=== PATIENT | female | born 1930 | race Caucasian/White ===

== ENCOUNTER 2017-08-07 16:37 | Inpatient (IN) | payer OTHER, MEDICARE ==
--- NOTE | 2017-08-07 17:25 | PDOC ---
History of Present Illness - General History Source: Patient, Old Records Exam Limitations: No Limitations - History of Present Illness Initial Comments: 08/07/17 17:44 The patient is an 87 year old female, accompanied by family, with a past medical history hypertension, high cholesterol, diabetes, hypothyroid, and recent UTI who presents to the ED today with lethargy. The patient states that her symptoms feel similar to her recent admissions for UTI despite not currently having any urinary complains. On Friday the patient discussed her symptoms (at that time) with Dr. Salinas who prescribed Doxycycline. She reports associated shortness of breath and lightheadedness. She denies chest pain, dysuria, frequency, fever, and chills. <Paul Murphy - Last Filed: 08/07/17 17:43> - History of Present Illness Initial Comments: 08/13/17 07:04 Physical exam: Alert oriented well-developed well-nourished no acute distress cooperative Afebrile, vital signs normal Head atraumatic. PERRLA, fundi benign, ENT clear Neck supple without bruit mass or nodes Lungs clear with full breath sounds throughout bilaterally. No wheezes rales or rhonchi CV S1 and S2 distant without murmur rub or gallop pulses full and symmetric no JVD or edema no bruits regular Abdomen soft nontender without mass or organomegaly. Bowel sounds normal. Nondistended. No CVAT Extremities no CCE Skin clear, no rash, adequate turgor and wet mucous membranes Neurological C2 to 12 intact. Strength full and symmetric. No focal sensory or motor deficits. The patient claims she is "too weak to walk". Impression: Possible recurrent UTI, although the patient's symptoms have completely subsided and there is no fever or back pain. Generalized weakness and fatigue, which appears to be out of proportion to the patient's generalized appearance. There appears to be considerable secondary gain and the relationship with her daughter Plan: Urinalysis and urine culture, CBC, chemistries, EKG and cardiac enzymes, chest x-ray, and further medical evaluation and treatment depending on results. 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) COPD: No CHF: No Dementia: No Diabetes: Yes (DX 1962) GI Disorders: Yes (ACID REFLUX) Disorders: Yes (FREQUENT UTI'S-LAST 2012-HOSPITALIZED) HTN: Yes (HX OF 40 YRS) Hypercholesterolemia: No Liver Disease: No Seizures: No Thyroid Disease: Yes (HYPOTHYROIDISM-DX 1949') Other medical history: GUILLAME BARRE, LYME DISEASE, POLIO - Surgical History Abdominal Surgery: Yes (UNBILICAL HERNIA REPAIR-2008) Appendectomy: No Cardiac Surgery: No Cholecystectomy: No Lung Surgery: No Neurologic Surgery: No Orthopedic Surgery: No - Suicide/Smoking/Psychosocial Hx Smoking Status: No Smoking History: Never smoked Have you smoked in the past 12 months: No Number of Cigarettes Smoked Daily: 0 Hx Alcohol Use: No Drug/Substance Use Hx: No Substance Use Type: None Hx Substance Use Treatment: No <Martinez Mcclellan - Last Filed: 08/13/17 07:10> - Past Medical History Allergies/Adverse Reactions: Allergies Allergy/AdvReac Type Severity Reaction Status Date / Time NSAIDS (Non-Steroidal Allergy Severe Difficulty Verified 08/07/17 16:42 Anti-Inflamma Breathing ibuprofen Allergy Intermediate Rash Verified 08/07/17 16:42 meloxicam [From Mobic] Allergy Intermediate Rash Verified 08/07/17 16:42 rosiglitazone maleate Allergy Verified 08/07/17 16:42 [From Avandia] albuterol AdvReac Intermediate Elevated Verified 08/07/17 16:42 Blood Pressure epinephrine AdvReac Intermediate Elevated Verified 08/07/17 16:42 Blood Pressure oxycodone HCl [From Percodan] AdvReac Intermediate Elevated Verified 08/07/17 16 :42 Blood Pressure oxycodone terephthalate AdvReac Intermediate Elevated Verified 08/07/17 16:42 [From Percodan] Blood Pressure flu shot AdvReac Severe [place] Uncoded 07/27/14 19:22 BARRE SY[employer]OME Home Medications: Ambulatory Orders Ascorbic Acid [Vitamin C] 1,000 mg PO BID tablet 07/08/13 Cholecalciferol (Vitamin D3) [Vitamin D3] 1,000 unit PO DAILY tablet 07/08/13 Cranberry 1 tab PO BID 06/08/14 Multivitamins [Multivit ([facility] Formulary)] 1 tab PO DAILY 06/10/14 Aspirin [ASA -] 81 mg PO DAILY #0 06/14/14 Famotidine [Pepcid] 20 mg PO DAILY 08/07/17 Cephalexin [Keflex] 500 mg PO BID #14 capsule 08/12/17 Lactobacillus Acidophilus [Bacid -] 1 tab PO DAILY tab 08/12/17 Review of Systems - Review of Systems Able to Perform ROS?: Yes Comments:: 08/07/17 17:44 CONSTITUTIONAL: (+) Generalized weakness, lightheadedness Absent: fever, no chills EYES: Absent: visual changes ENT: Absent: ear pain, no sore throat CARDIOVASCULAR: Absent: chest pain, no palpitations RESPIRATORY: (+) SOB Absent: cough GI: Absent: abdominal pain, no nausea, no vomiting, no constipation, no diarrhea GENITOURINARY: Absent: dysuria, no frequency, no hematuria MUSCULOSKELETAL: Absent: back pain, no arthralgia, no myalgia SKIN: Absent: rash <Paul Murphy - Last Filed: 08/07/17 17:43> *Physical Exam - Vital Signs Last Vital Signs Temp Pulse Resp BP Pulse Ox 98.5 F 77 18 167/63 96 08/07/17 16:38 08/07/17 16:38 08/07/17 16:38 08/07/17 16:38 08/07/17 16:38 - Physical Exam Comments: 08/07/17 17:44 GENERAL: Well-appearing, well-nourished. No apparent distress. HEENT: Normocephalic, atraumatic. PERRL, EOM intact. CARDIOVASCULAR: Normal S1, S2. Regular rate and rhythm. PULMONARY: Clear to auscultation bilaterally. ABDOMEN: Soft, non-distended, non-tender. EXTREMITIES: Normal ROM in all four extremities. No gross deformities. SKIN: Warm, dry. No rash NEUROLOGICAL: No focal neurological deficits. <Paul Murphy - Last Filed: 08/07/17 17:43> - Vital Signs Last Vital Signs Temp Pulse Resp BP Pulse Ox 98.5 F 77 18 167/63 96 08/07/17 16:38 08/07/17 16:38 08/07/17 16:38 08/07/17 16:38 08/07/17 16:38 <Martinez Mcclellan - Last Filed: 08/13/17 07:10> ED Treatment Course - LABORATORY CBC & Chemistry Diagram: 08/07/17 17:20 08/07/17 17:20 <Paul Murphy - Last Filed: 08/07/17 17:43> - LABORATORY CBC & Chemistry Diagram: 08/11/17 07:05 08/11/17 07:05 <Martinez Mcclellan - Last Filed: 08/13/17 07:10> Medical Decision Making - Medical Decision Making 08/07/17 18:13 EKG: Sinus with mild sinus arrhythmia 74/m. Left axis deviation, minimal. Incomplete right bundle-branch block. Old anteroseptal SC, with Q waves in V1 and V2. No acute ST-T wave changes. No change from prior EKG dated 09/03/2012 in our records. 08/13/17 07:07 Chest x-ray is clear Urinalysis is clear. CBC and chemistries show no significant abnormalities. The patient still feels "weak". Small bolus of intravenous fluids begun. Signed out to Dr. Sargent at 7 PM pending completion of fluids and further medical evaluation. <Martinez Mcclellan - Last Filed: 08/13/17 07:10> *DC/Admit/Observation/Transfer - Attestations Scribe Attestion: 08/07/17 17:44 Documentation prepared by Paul Murphy, acting as medical receptionist biller for Martinez Mcclellan MD. <Paul Murphy - Last Filed: 08/07/17 17:43> <Martinez Mcclellan - Last Filed: 08/13/17 07:10> Diagnosis at time of Disposition: Lethargy, Hyponatremia - Discharge Dispostion Disposition: HALF-WAY FACILITY Condition at time of disposition: Improved
[2017-08-07 17:38] LABS: HEMATOCRIT 30.2 % (32.4-45.2); MCH 34.2 pg (25.7-33.7); MCHC 33.2 g/dl (32.0-36.0); MEAN PLT VOLUME 6.3 fl (7.5-11.1); PLATELET COUNT 293 K/MM3 (134-434); RBC 2.94 M/mm3 (3.60-5.2); RDW 15.3 % (11.6-15.6); WHITE BLOOD COUNT 18.9 K/mm3 (4.0-10.8)
[2017-08-07 17:52] LABS: INR 1.07 (0.82-1.09)
[2017-08-07 18:05] LABS: ALBUMIN 3.5 g/dl (3.5-5.0); ALK PHOS 74 U/L (32-92); ANION GAP 7 (8-16); BILIRUBIN,TOTAL 0.7 mg/dl (0.2-1.0); BLOOD UREA NITROGEN 31 mg/dl (7-18); CALCIUM 8.8 mg/dl (8.4-10.2); CHLORIDE 98 mmol/L (98-107); CO2 23 mmol/L (22-28); CREATININE 1.2 mg/dl (0.6-1.3); GLUCOSE,RANDOM 146 mg/dl (74-106); POTASSIUM 4.2 mmol/L (3.5-5.1); SGOT/AST 18 U/L (10-42); SGPT/ALT 13 U/L (10-40); SODIUM 128 mmol/L (136-145); TOT PROT 6.7 g/dl (6.4-8.3)
[2017-08-07 18:27] LABS: PLATELET ESTIMATE ADEQUATE
[2017-08-07] MEDS ORDERED: SODIUM CHLORIDE 500 ML IV STA (18:34)
[2017-08-07 18:42] LABS: URINE APPEARANCE Clear; URINE BILIRUBIN Negative (NEGATIVE); URINE COLOR YELLOW; URINE GLUCOSE (UA) Negative (NEGATIVE); URINE KETONE Negative (NEGATIVE); URINE LEUK ESTERASE Negative (NEGATIVE); URINE NITRITE Negative (NEGATIVE); URINE PROTEIN 3+ (NEGATIVE); URINE UROBILINOGEN 0.2 (0.2-1.0)
[2017-08-07 18:57] LABS: EPI CELLS FEW /HPF; URINE BACTERIA FEW /hpf (NEGATIVE); URINE RBC 0-2 /hpf (0-3)
--- NOTE | 2017-08-07 19:25 | PDOC ---
*Physical Exam - Vital Signs Last Vital Signs Temp Pulse Resp BP Pulse Ox 98.5 F 77 18 167/63 96 08/07/17 16:38 08/07/17 16:38 08/07/17 16:38 08/07/17 16:38 08/07/17 16:38 ED Treatment Course - LABORATORY CBC & Chemistry Diagram: 08/07/17 17:20 08/07/17 17:20 - ADDITIONAL ORDERS Additional order review: Laboratory Results 08/07/17 08/07/17 08/07/17 18:30 17:20 17:20 PT with INR INR Sodium 128 L Potassium 4.2 Chloride 98 Carbon Dioxide 23 Anion Gap 7 L BUN 31 H D Creatinine 1.2 Creat Clearance w eGFR 42.50 Random Glucose 146 H D Calcium 8.8 Total Bilirubin 0.7 AST 18 ALT 13 Alkaline Phosphatase 74 Creatine Kinase 42 Troponin I < 0.03 Total Protein 6.7 Albumin 3.5 Urine Color Yellow Urine Appearance Clear Urine pH 7.0 Ur Specific [place] 1.020 Urine Protein 3+ H Urine Glucose (UA) Negative Urine Ketones Negative Urine Blood Negative Urine Nitrite Negative Urine Bilirubin Negative Urine Urobilinogen 0.2 Ur Leukocyte Esterase Negative Urine RBC 0-2 Urine WBC 2-4 Ur Epithelial Cells Few Urine Bacteria Few 08/07/17 17:20 PT with INR 12.0 INR 1.07 Sodium Potassium Chloride Carbon Dioxide Anion Gap BUN Creatinine Creat Clearance w eGFR Random Glucose Calcium Total Bilirubin AST ALT Alkaline Phosphatase Creatine Kinase Troponin I Total Protein Albumin Urine Color Urine Appearance Urine pH Ur Specific [place] Urine Protein Urine Glucose (UA) Urine Ketones Urine Blood Urine Nitrite Urine Bilirubin Urine Urobilinogen Ur Leukocyte Esterase Urine RBC Urine WBC Ur Epithelial Cells Urine Bacteria 08/07/17 17:20 RBC 2.94 L MCV 103.0 H MCHC 33.2 RDW 15.3 MPV 6.3 L Neutrophils % No Result Required. Lymphocytes % No Result Required. Progress Note - Progress Note Progress Note: Care of this patient was transferred to tn from Dr. Corey at 1900 hrs. This is an 87-year-old female who was brought in by her family for lethargy. Patient said she's had difficulty getting up and getting around today. Patient said she's felt very weak. Patient denies any chest pain or dizziness. On evaluation of patient's workup thus far patient does have an elevated white count of 18.9. Her white count does tend to run high secondary to a mild myeloproliferative disease. White count is generally less than 16,000, there is also a left shift with 9% bands and 72% segs. Patient also was noted to be hyponatremia with a sodium of 128. Patient has chronic anemia her hemoglobin is 10 this does appear to be close to her baseline. Patient's chest x-ray shows no acute pathology her EKG is unchanged from prior. Patient is receiving some IV fluid. Patient was recently diagnosed with a urinary tract infection and is on antibiotics her urine shows no evidence of an infection at this time. It is uncertain as to the etiology of patient's feeling poorly however given her elevated white count with left shift concern is for an underlying Occult infectious process. Also patient's hyponatremia most likely is contributing to her lethargy. Patient will be admitted to an observation bed for IV hydration and monitoring.. . Signout given to the admitting hospitalist, who accepts the patient. Discussed plan with the patient family at bedside, Patient and family aware of the plan and agree. Patient is clinically unchanged and stable. *DC/Admit/Observation/Transfer Diagnosis at time of Disposition: Lethargy, Hyponatremia - Discharge Dispostion Condition at time of disposition: Fair Admit: Yes - Referrals - Patient Instructions - Post Discharge Activity
--- NOTE | 2017-08-07 22:22 | HP ---
CHIEF COMPLAINT: Lethargy, Generalized Weakness, Dysuria, Frequency PCP: Dr. Salinas HISTORY OF PRESENT ILLNESS: This is a 87 y/o woman PMH; Hypothyroid, DM, Anemia, Asthma(no meds), CVA/TIAs x4 (L-residual), L-Breast Ca (s/p Lumpectomy, RT, remission). Who presents to the ED with lethargy, generalized weakness, malaise and dysuria. Patient reports being treated for a UTI on Doxycycline Day #3. She reports drinking large amounts of water, taking cranberry supplements and Vit C for her UTI and to stay hydrated. She states" I have been feeling so weak, I feel like a rag doll". Patient endorses chills, bladder spams, abdominal cramping and a decreased appetite. Patient denies fever, CABRALES, SOB, CP, palpitations, constipation. ER course was notable for: (1) Na 128 (2) WBC 18.9 (3) BUN 31, Cr 1.2 Recent Travel: None PAST MEDICAL HISTORY: See HPI PAST SURGICAL HISTORY: Umbilical Hernia Repair L- Lumpectomy Social History: Smoking: Never Alcohol: None Drugs: None Lives alone, ambulates with a walker Family History: Non-contributory Allergies NSAIDS (Non-Steroidal Anti-Inflamma Allergy (Severe, Verified 08/07/17 16:42) Difficulty Breathing ibuprofen Allergy (Intermediate, Verified 08/07/17 16:42) Rash meloxicam [From Mobic] Allergy (Intermediate, Verified 08/07/17 16:42) Rash all to all n-saids ? except Asprin rosiglitazone maleate [From Avandia] Allergy (Verified 08/07/17 16:42) albuterol Adverse Reaction (Intermediate, Verified 08/07/17 16:42) Elevated Blood Pressure ELEVATED SUGAR/ELEVATED TEMP epinephrine Adverse Reaction (Intermediate, Verified 08/07/17 16:42) Elevated Blood Pressure ELEVATED SUGAR/TEMP oxycodone HCl [From Percodan] Adverse Reaction (Intermediate, Verified 08/07/17 16:42) Elevated Blood Pressure ELEVATED SUGAR/ELEVATED TEMP oxycodone terephthalate [From Percodan] Adverse Reaction (Intermediate, Verified 08/07/17 16:42) Elevated Blood Pressure ELEVATED TEMP/SUGAR flu shot Adverse Reaction (Severe, Uncoded 07/27/14 19:22) GILLAIN BARRE [employer]NDROME HOME MEDICATIONS: Home Medications Medication Instructions Recorded Ascorbic Acid [Vitamin C] 500 mg PO 2 Daily tablet 07/08/13 Cholecalciferol (Vitamin D3) 1,000 unit PO DAILY tablet 07/08/13 [Vitamin D3] Cranberry 1 tab PO BID 06/08/14 Multivitamins [Multivit ([facility] 1 tab PO DAILY 06/10/14 Formulary)] Aspirin [ASA -] 81 mg PO DAILY #0 06/14/14 Letrozole 2.5 mg PO DAILY 30 Days tablet 11/11/14 Doxycycline Hyclate 100 mg PO BID 08/07/17 Famotidine [Pepcid] 20 mg PO DAILY 08/07/17 REVIEW OF SYSTEMS CONSTITUTIONAL: chills, generalized weakness, malaise, loss of appetite Absent: fever, diaphoresis, weight change HEENT: Absent: rhinorrhea, nasal congestion, throat pain, throat swelling, difficulty swallowing, mouth swelling, ear pain, eye pain, visual changes CARDIOVASCULAR: Absent: chest pain, syncope, palpitations, irregular heart rate, lightheadedness , peripheral edema RESPIRATORY: Absent: cough, shortness of breath, dyspnea with exertion, orthopnea, wheezing, stridor, hemoptysis GASTROINTESTINAL:abdominal cramping Absent: abdominal pain, abdominal distension, nausea, vomiting, diarrhea, constipation, melena, hematochezia GENITOURINARY: dysuria, frequency, urgency, bladder spasms Absent: hesitancy, hematuria, flank pain, genital pain MUSCULOSKELETAL: Absent: myalgia, arthralgia, joint swelling, back pain, neck pain SKIN: Absent: rash, itching, pallor HEMATOLOGIC/IMMUNOLOGIC: Absent: easy bleeding, easy bruising, lymphadenopathy, frequent infections ENDOCRINE: Absent: unexplained weight gain, unexplained weight loss, heat intolerance, cold intolerance NEUROLOGIC: Absent: headache, focal weakness or paresthesias, dizziness, unsteady gait, seizure, mental status changes, bladder or bowel incontinence PSYCHIATRIC: Absent: anxiety, depression, suicidal or homicidal ideation, hallucinations. PHYSICAL EXAMINATION Vital Signs - 24 hr 08/07/17 08/07/17 16:38 20:30 Temperature 98.5 F 98.6 F Pulse Rate 77 Pulse Rate [ 73 Radial] Respiratory 18 18 Rate Blood Pressure 167/63 Blood Pressure 150/57 [Right Arm] O2 Sat by Pulse 96 100 Oximetry (%) GENERAL: Awake, alert, and fully oriented, in no acute distress. HEAD: Normal with no signs of trauma. EYES: Pupils equal, round and reactive to light, extraocular movements intact, sclera anicteric, conjunctiva clear. No lid lag. EARS, NOSE, THROAT: Ears normal, nares patent, oropharynx clear without exudates. Dry mucous membranes. NECK: Normal range of motion, supple without lymphadenopathy, JVD, or masses. LUNGS: Breath sounds equal, clear to auscultation bilaterally. No wheezes, and no crackles. No accessory muscle use. HEART: Regular rate and rhythm, normal S1 and S2 without murmur, rub or gallop. ABDOMEN: Soft, mid lower abdominal tenderness, not distended, normoactive bowel sounds, no guarding, no rebound, no masses. No hepatomegaly or splenomegaly. MUSCULOSKELETAL: Normal range of motion at all joints. No bony deformities or tenderness. No CVA tenderness. UPPER EXTREMITIES: 2+ pulses, warm, well-perfused. No cyanosis. No clubbing. No peripheral edema. LOWER EXTREMITIES: 2+ pulses, warm, well-perfused. No calf tenderness. No peripheral edema. NEUROLOGICAL: Cranial nerves II-XII intact. Normal speech. Gait not observed. PSYCHIATRIC: Cooperative. Good eye contact. Appropriate mood and affect. SKIN: Warm, dry, poor turgor, no rashes or lesions noted, normal capillary refill. Laboratory Results - last 24 hr 08/07/17 08/07/17 08/07/17 17:20 17:20 17:20 WBC 18.9 H RBC 2.94 L Hgb 10.0 L D Hct 30.2 L MCV 103.0 H MCH 34.2 H MCHC 33.2 RDW 15.3 Plt Count 293 MPV 6.3 L Neutrophils % No Result Required. Neutrophils % (Manual) 72.0 Band Neutrophils % 6.0 Lymphocytes % No Result Required. Lymphocytes % (Manual) 8.0 Monocytes % (Manual) 11 H Eosinophils % (Manual) 1.0 Platelet Estimate Adequate PT with INR 12.0 INR 1.07 Sodium 128 L Potassium 4.2 Chloride 98 Carbon Dioxide 23 Anion Gap 7 L BUN 31 H D Creatinine 1.2 Creat Clearance w eGFR 42.50 Random Glucose 146 H D Lactic Acid Calcium 8.8 Total Bilirubin 0.7 AST 18 ALT 13 Alkaline Phosphatase 74 Creatine Kinase 42 Troponin I Total Protein 6.7 Albumin 3.5 Urine Color Urine Appearance Urine pH Ur Specific [place] Urine Protein Urine Glucose (UA) Urine Ketones Urine Blood Urine Nitrite Urine Bilirubin Urine Urobilinogen Ur Leukocyte Esterase Urine RBC Urine WBC Ur Epithelial Cells Urine Bacteria 08/07/17 08/07/17 08/07/17 17:20 17:20 18:30 WBC RBC Hgb Hct MCV MCH MCHC RDW Plt Count MPV Neutrophils % Neutrophils % (Manual) Band Neutrophils % Lymphocytes % Lymphocytes % (Manual) Monocytes % (Manual) Eosinophils % (Manual) Platelet Estimate PT with INR INR Sodium Potassium Chloride Carbon Dioxide Anion Gap BUN Creatinine Creat Clearance w eGFR Random Glucose Lactic Acid 1.0 Calcium Total Bilirubin AST ALT Alkaline Phosphatase Creatine Kinase Troponin I < 0.03 Total Protein Albumin Urine Color Yellow Urine Appearance Clear Urine pH 7.0 Ur Specific [place] 1.020 Urine Protein 3+ H Urine Glucose (UA) Negative Urine Ketones Negative Urine Blood Negative Urine Nitrite Negative Urine Bilirubin Negative Urine Urobilinogen 0.2 Ur Leukocyte Esterase Negative Urine RBC 0-2 Urine WBC 2-4 Ur Epithelial Cells Few Urine Bacteria Few ASSESSMENT/PLAN: This is a 87 y/o woman PMH: DM, Hypothyroid, Anemia, Asthma (no meds), CVA/TIA x4, Guillain [place], Lyme Disease, Polio, Myeloproliferative Disorder,. Placed in Tele Observation, Acute Hyponatremia, Lethargy secondary to UTI. Problem List - Problem (1) Hyponatremia Assessment/Plan: - Likely secondary to UTI, unlikely SIADH - Sodium Deficit 469.8 meq - NS 500ml bolus given in ED - goal correction 6-8 meq/24hr - BMP tonight, then am - Hold IVF for now, titrate accordingly to BMP - Continue cardiac monitoring - Fall Precautions Code(s): E87.1 - HYPO-OSMOLALITY AND HYPONATREMIA (2) Lethargy Assessment/Plan: - Likely secondary to UTO vs Hyponatremia - Fall Precautions - Monitor CBC, BMP - NS bolus given in ED, will hold for now concern with Na overcorrection - Monitor vitals Code(s): R53.83 - OTHER FATIGUE (3) UTI (urinary tract infection) Assessment/Plan: - UA- +protein - no Leukoctye esterase, no nitrate, likely secondary to recent ABX use - Urine Culture-pending - Will d/c Doxycycline secondary to concern for worsening MAURICE - Will start Ceftriaxone - Monitor vitals - Monitor CBC Code(s): N39.0 - URINARY TRACT INFECTION, SITE NOT SPECIFIED (4) Anemia Assessment/Plan: - stable - Hgb 10.0, at baseline - Will transfuse if Hgb < 7.0 Code(s): D64.9 - ANEMIA, UNSPECIFIED (5) Diabetes Assessment/Plan: - Stable - BGMs - Levemir - Continue Metformin - Monitor renal function Code(s): E11.9 - TYPE 2 DIABETES MELLITUS WITHOUT COMPLICATIONS (6) Hypothyroid Assessment/Plan: - TSH in am - Continue Levothyroxine Code(s): E03.9 - HYPOTHYROIDISM, UNSPECIFIED (7) GERD (gastroesophageal reflux disease) Assessment/Plan: - Stable - Continue omeprazole Code(s): K21.9 - GASTRO-ESOPHAGEAL REFLUX DISEASE WITHOUT ESOPHAGITIS (8) History of CVA with residual deficit Assessment/Plan: - Stable -Continue to monitor an treat with interventions accordingly - Fall Precautions Code(s): I69.30 - UNSPECIFIED SEQUELAE OF CEREBRAL INFARCTION (9) Breast cancer, left Assessment/Plan: - In remission s/p Lumpectomy, RT Code(s): C50.912 - MALIGNANT NEOPLASM OF UNSPECIFIED SITE OF LEFT FEMALE BREAST (10) DVT prophylaxis Assessment/Plan: - OOB - SCDs - Consider AC if LOC > 48hrs Code(s): [id number] - Visit type - Emergency Visit Emergency Visit: Yes ED Registration Date: 08/07/17 Care time: The patient presented to the Emergency Department on the above date and was hospitalized for further evaluation of their emergent condition. - New Patient This patient is new to me today: Yes Date on this admission: 08/07/17 - Critical Care Critical Care patient: No Hospitalist Screening - Colonoscopy Questionnaire Colonoscopy Questionnaire: Colonoscopy Questionnaire - Patient: 50 - 75 years old and never had a screening colonoscopy: No History of colon or rectal polyps, or CA: No History of IBD, Crohn's disease or UC: No History of abdominal radiation therapy as a child: No - Relative: 1 with colon or rectal CA, or polyps at age 60 or younger: No Colon or rectal CA diagnosed at age 45 or younger: No Multiple relatives with colon or rectal CA: No - Outcome: Screening Result: Negative Screen
[2017-08-07 23:40] VITALS: BMI 31.3
[2017-08-08] MEDS ORDERED: ACETAMINOPHEN 325 MG TABLET (FP) PO ONE (01:11)
[2017-08-08 01:12] LABS: ANION GAP 11 (8-16); BLOOD UREA NITROGEN 31 mg/dL (7-18); CALCIUM 8.8 mg/dL (8.5-10.1); CHLORIDE 101 mmol/L (98-107); CO2 25 mmol/L (21-32); CREATININE 1.2 mg/dL (0.55-1.02); GLUCOSE,RANDOM 155 mg/dL (74-106); POTASSIUM 4.4 mmol/L (3.5-5.1); SODIUM 137 mmol/L (136-145)
[2017-08-08] MEDS ORDERED: CEFTRIAXONE 1 GM in DEXTROSE 5%-WATER - 50 ML IVPB ONE (01:57)
[2017-08-08] MEDS: LEVOTHYROXINE NA 100 MCG TABLET (FP) PO SCH (06:50)
--- NOTE | 2017-08-08 07:37 | PN ---
Physical Exam: SUBJECTIVE: Patient seen and examined, reports generalized weakness, denies any tactile fevers OBJECTIVE: patient is a 87 y/o female with a past medical history of Hypothyroidism, DM, pernicous Anemia, Asthma(no meds), CVA/TIAs x4 (L-residual) , L-Breast Ca (s/p Lumpectomy, RT, remission). Patient was admitted from the emergency department to observation for hyponatremia, UTI after failing outpatient therapy. Vital Signs Period Temp Pulse Resp BP Sys/Hernandez Pulse Ox Last 24 Hr 97.9 F-98.6 F 73-81 18-20 150-167/57-63 96-100 GENERAL: The patient is awake, alert, and fully oriented, in no acute distress. HEAD: Normal with no signs of trauma. EYES: PERRL, extraocular movements intact, sclera anicteric, conjunctiva clear. No ptosis. ENT: Ears normal, nares patent, oropharynx clear without exudates, moist mucous membranes. NECK: Trachea midline, full range of motion, supple. LUNGS: Breath sounds equal, clear to auscultation bilaterally, no wheezes, no crackles, no accessory muscle use. HEART: Regular rate and rhythm, S1, S2 without murmur, rub or gallop. ABDOMEN: Soft, + suprapubic tendernss, nondistended, normoactive bowel sounds, no guarding, no rebound, no hepatosplenomegaly, no masses. EXTREMITIES: 2+ pulses, warm, well-perfused, no edema. NEUROLOGICAL: Cranial nerves II through XII grossly intact. Normal speech, gait not observed. PSYCH: Normal mood, normal affect. SKIN: Warm, dry, normal turgor, no rashes or lesions noted Laboratory Results - last 24 hr CBC WBC 15.6 K/mm3 (4.0-10.8) H 08/08/17 07:12 RBC 2.78 M/mm3 (3.60-5.2) L 08/08/17 07:12 Hgb 9.8 GM/dl (10.7-15.3) L 08/08/17 07:12 Hct 28.5 % (32.4-45.2) L 08/08/17 07:12 MCV 102.7 fl (80-96) H 08/08/17 07:12 MCH 35.2 pg (25.7-33.7) H 08/08/17 07:12 MCHC 34.3 g/dl (32.0-36.0) 08/08/17 07:12 RDW 15.2 % (11.6-15.6) 08/08/17 07:12 Plt Count 283 K/MM3 (134-434) 08/08/17 07:12 MPV 6.3 fl (7.5-11.1) L 08/08/17 07:12 Neutrophils % 71.2 % (42.8-82.8) 08/08/17 07:12 Neutrophils % (Manual) 72.0 % (42.8-82.8) 08/07/17 17:20 Band Neutrophils % 6.0 % (0-10) 08/07/17 17:20 Lymphocytes % 15.5 % (8-40) 08/08/17 07:12 Lymphocytes % (Manual) 8.0 % (8-40) 08/07/17 17:20 Monocytes % 7.9 % (3.8-10.2) 08/08/17 07:12 Monocytes % (Manual) 11 % (3.8-10.2) H 08/07/17 17:20 Eosinophils % 5.2 % (0-4.5) H 08/08/17 07:12 Eosinophils % (Manual) 1.0 % (0-4.5) 08/07/17 17:20 Basophils % 0.2 % (0-2.0) 08/08/17 07:12 Platelet Estimate Adequate 08/07/17 17:20 08/07/17 08/07/17 08/07/17 17:20 17:20 18:30 WBC RBC Hgb Hct MCV MCH MCHC RDW Plt Count MPV Neutrophils % Neutrophils % (Manual) Band Neutrophils % Lymphocytes % Lymphocytes % (Manual) Monocytes % (Manual) Eosinophils % (Manual) Platelet Estimate PT with INR INR Sodium Potassium Chloride Carbon Dioxide Anion Gap BUN Creatinine Creat Clearance w eGFR Random Glucose Lactic Acid 1.0 Calcium Total Bilirubin AST ALT Alkaline Phosphatase Creatine Kinase Troponin I < 0.03 Total Protein Albumin Urine Color Yellow Urine Appearance Clear Urine pH 7.0 Ur Specific [place] 1.020 Urine Protein 3+ H Urine Glucose (UA) Negative Urine Ketones Negative Urine Blood Negative Urine Nitrite Negative Urine Bilirubin Negative Urine Urobilinogen 0.2 Ur Leukocyte Esterase Negative Urine RBC 0-2 Urine WBC 2-4 Ur Epithelial Cells Few Urine Bacteria Few CMP Sodium 133 mmol/L (136-145) L 08/08/17 07:12 Potassium 3.9 mmol/L (3.5-5.1) 08/08/17 07:12 Chloride 103 mmol/L (98-107) 08/08/17 07:12 Carbon Dioxide 25 mmol/L (22-28) 08/08/17 07:12 Anion Gap 5 (8-16) L 08/08/17 07:12 BUN 25 mg/dl (7-18) H 08/08/17 07:12 Creatinine 1.0 mg/dl (0.6-1.3) 08/08/17 07:12 Creat Clearance w eGFR 42.50 (>60) 08/07/17 17:20 Random Glucose 141 mg/dl (74-106) H 08/08/17 07:12 Lactic Acid 1.0 mmol/L (0.0-2.0) 08/07/17 17:20 Calcium 8.9 mg/dl (8.4-10.2) 08/08/17 07:12 Phosphorus 3.5 mg/dl (2.5-4.6) 08/08/17 07:12 Magnesium 2.3 mg/dL (1.8-2.4) 08/08/17 07:12 Total Bilirubin 0.7 mg/dl (0.2-1.0) 08/07/17 17:20 AST 18 U/L (10-42) 08/07/17 17:20 ALT 13 U/L (10-40) 08/07/17 17:20 Alkaline Phosphatase 74 U/L (32-92) 08/07/17 17:20 Creatine Kinase 42 IU/L (26-192) 08/07/17 17:20 Troponin I < 0.03 ng/ml (0.00-0.06) 08/07/17 17:20 Total Protein 6.7 g/dl (6.4-8.3) 08/07/17 17:20 Albumin 3.5 g/dl (3.5-5.0) 08/07/17 17:20 Active Medications Generic Name Dose Route Start Last Admin Trade Name Freq PRN Reason Stop Dose Admin Amlodipine Besylate 5 mg 08/08/17 10:00 Norvasc - PO DAILY [facility] Ascorbic Acid 1,000 mg 08/08/17 10:00 Vitamin C - PO BID [facility] Carvedilol 25 mg 08/08/17 10:00 Coreg - PO BID [facility] Cholecalciferol 1,000 unit 08/08/17 10:00 Vitamin D3 - PO DAILY [facility] Famotidine 20 mg 08/08/17 10:00 Pepcid - PO DAILY [facility] Ceftriaxone Sodium 1 gm/ 50 mls @ 100 mls/hr 08/09/17 10:00 Dextrose IVPB DAILY [facility] Protocol Insulin Detemir 20 units 08/08/17 22:00 Levemir Vial SQ HS [facility] Levothyroxine Sodium 100 mcg 08/08/17 07:00 08/08/17 06:50 Synthroid - PO 100 mcg DAILY@0700 [facility] Administration Losartan Potassium 100 mg 08/08/17 10:00 Cozaar - PO DAILY [facility] Multivitamins/Minerals/Vitamin C 1 tab 08/08/17 10:00 Tab-A-Vit - PO DAILY [facility] Non-Formulary Medication 1 tab 08/08/17 10:00 Cranberry PO BID [facility] ASSESSMENT/PLAN: 1) cardiovascular hypertension - above goal, will increase norvasc to 10mg, continue losartan, hold hctz secondary to hyponatremia 2) urinary tract infection - reports taking doxycline for 3 days with no relief, continue rocephin until urine culture is resulted - leukocytosis downtrending 3) hyponatrmeia - serum sodium 133, continue to hold hctz - repeat bmp in am 4) neuro metabolic encephalopathy - likely secondary to hyponatremia vs uti, pt reports feeling slightly improved cva history w/deficit - continue fall precautions 5) heme macrocytic anemia pernicious anemia - pending vitamin b12 level - hgb 9.8, baseline 11.9 6) endo diabetes - continue metformin and levermir, pending hgb a1c hypothyroidism - pending tsh, continue levothyroixine f/e/n - low sodium/diabetic diet - replete lytes prn ppx - heparin - physical therapy eval - pepcid dispo: pt requires inpatient admission Visit type - Emergency Visit Emergency Visit: Yes ED Registration Date: 08/08/17 Care time: The patient presented to the Emergency Department on the above date and was hospitalized for further evaluation of their emergent condition. - New Patient This patient is new to me today: Yes Date on this admission: 08/08/17 - Critical Care Critical Care patient: No - Discharge Referral Referred to [facility] Med P.C.: No
[2017-08-08 08:34] LABS: ANION GAP 5 (8-16); BLOOD UREA NITROGEN 25 mg/dl (7-18); CALCIUM 8.9 mg/dl (8.4-10.2); CHLORIDE 103 mmol/L (98-107); CO2 25 mmol/L (22-28); GLUCOSE,RANDOM 141 mg/dl (74-106); MAGNESIUM 2.3 mg/dL (1.8-2.4); PHOSPHOROUS 3.5 mg/dl (2.5-4.6); POTASSIUM 3.9 mmol/L (3.5-5.1); SODIUM 133 mmol/L (136-145)
[2017-08-08 08:50] LABS: BASO % 0.2 % (0-2.0); EOS % 5.2 % (0-4.5); HEMATOCRIT 28.5 % (32.4-45.2); HEMOGLOBIN 9.8 GM/dl (10.7-15.3); LYMPH % 15.5 % (8-40); MCH 35.2 pg (25.7-33.7); MCHC 34.3 g/dl (32.0-36.0); MEAN CELL VOLUME 102.7 fl (80-96); MEAN PLT VOLUME 6.3 fl (7.5-11.1); MONO % 7.9 % (3.8-10.2); NEUT % 71.2 % (42.8-82.8); PLATELET COUNT 283 K/MM3 (134-434); RBC 2.78 M/mm3 (3.60-5.2); RDW 15.2 % (11.6-15.6); WHITE BLOOD COUNT 15.6 K/mm3 (4.0-10.8)
[2017-08-08] MEDS: FAMOTIDINE 20 MG TABLET PO SCH (09:24)
[2017-08-08] MEDS: LOSARTAN POTASSIUM 50 MG TABLET (FP) PO SCH (09:24)
[2017-08-08] MEDS: CARVEDILOL 25 MG TABLET (FP) PO SCH ×2 (09:24→22:11)
[2017-08-08] MEDS: CEFTRIAXONE 1 G/50 ML PREMIX 50 ML IVPB SCH (09:24)
[2017-08-08] MEDS: MULTIVITAMINS (DAILY MVI) TABLET (FP) PO SCH (09:24)
[2017-08-08] MEDS: ASCORBIC ACID 500 MG TABLET (FP) PO SCH ×2 (09:24→22:12)
[2017-08-08] MEDS: CHOLECALCIFEROL (VITAMIN D3) 1,000 UNIT TABLET (FP) PO SCH (09:24)
--- NOTE | 2017-08-08 09:44 | EKG ---
Test Reason : Blood Pressure : / mmHG Vent. Rate : 074 BPM Atrial Rate : 074 BPM P-R Int : 188 ms QRS Dur : 114 ms QT Int : 414 ms P-R-T Axes : 044 -36 034 degrees QTc Int : 459 ms SINUS RHYTHM WITH SINUS ARRHYTHMIA WITH FUSION COMPLEXES LEFT AXIS DEVIATION LEFT ANTERIOR HEMIBLOCK INCOMPLETE RIGHT BUNDLE BRANCH BLOCK ABNORMAL ECG NO PREVIOUS ECGS AVAILABLE Confirmed by OLAF HAIRSTON MD ([id number]) on 08/08/2017 9:44:09 AM Referred By: DR DRAPER Confirmed By:OLAF HAIRSTON MD
[2017-08-08] MEDS ORDERED: ASPIRIN 81 MG CHEWABLE TABLETS PO SCH (10:00)
[2017-08-08] MEDS ORDERED: amLODIPine BESYLATE 5 MG TABLET (FP) PO SCH (10:00)
[2017-08-08] MEDS ORDERED: CRANBERRY PO SCH (10:00)
[2017-08-08] MEDS: metFORMIN HCL 500 MG TABLET (FP) PO SCH ×2 (10:02→16:44)
[2017-08-08] MEDS: HEPARIN NA (PORCINE) 5,000 UNITS/ML 1ML VIAL SQ SCH (22:11)
[2017-08-08] MEDS: INSULIN (LEVEMIR) 100 UNITS/ML UNITS SQ SCH (22:11)
[2017-08-09] MEDS: metFORMIN HCL 500 MG TABLET (FP) PO SCH ×2 (06:34→17:03)
[2017-08-09] MEDS: LEVOTHYROXINE NA 100 MCG TABLET (FP) PO SCH (06:34)
[2017-08-09 08:08] LABS: SERUM IRON SATURATION 27 % (15-55); TOTAL IRON BINDING CAPACITY 275 ug/dL (250-450); UIBC 202 ug/dL (118-369)
[2017-08-09] MEDS: CEFTRIAXONE 1 G/50 ML PREMIX 50 ML IVPB SCH (09:32)
[2017-08-09] MEDS: CHOLECALCIFEROL (VITAMIN D3) 1,000 UNIT TABLET (FP) PO SCH (09:33)
[2017-08-09] MEDS: LOSARTAN POTASSIUM 50 MG TABLET (FP) PO SCH (09:33)
[2017-08-09] MEDS: HEPARIN NA (PORCINE) 5,000 UNITS/ML 1ML VIAL SQ SCH ×2 (09:33→21:51)
[2017-08-09] MEDS: ASCORBIC ACID 500 MG TABLET (FP) PO SCH ×2 (09:33→21:51)
[2017-08-09] MEDS: MULTIVITAMINS (DAILY MVI) TABLET (FP) PO SCH (09:33)
[2017-08-09] MEDS: amLODIPine BESYLATE 10 MG TABLET (FP) PO SCH (09:33)
[2017-08-09] MEDS: FAMOTIDINE 20 MG TABLET PO SCH (09:33)
[2017-08-09] MEDS: CARVEDILOL 25 MG TABLET (FP) PO SCH ×2 (09:33→21:51)
--- NOTE | 2017-08-09 09:35 | PN ---
Progress Note (short form) - Note Progress Note: Subjective: The patient was seen and examined at the bedside, she reports feeling much better today, she denies any confusion. Awaiting labs for today Awaiting final urine culture Current Medications Generic Name Dose Route Start Last Admin Trade Name Meena PRN Reason Stop Dose Admin Amlodipine Besylate 10 mg 08/09/17 10:00 Norvasc - PO DAILY [facility] Ascorbic Acid 1,000 mg 08/08/17 10:00 08/08/17 22:12 Vitamin C - PO 1,000 mg BID [facility] Administration Carvedilol 25 mg 08/08/17 10:00 08/08/17 22:11 Coreg - PO 25 mg BID [facility] Administration Cholecalciferol 1,000 unit 08/08/17 10:00 08/08/17 09:24 Vitamin D3 - PO 1,000 unit DAILY [facility] Administration Famotidine 20 mg 08/08/17 10:00 08/08/17 09:24 Pepcid - PO 20 mg DAILY [facility] Administration Heparin Sodium (Porcine) 5,000 unit 08/08/17 22:00 08/08/17 22:11 Heparin - SQ 5,000 unit BID [facility] Administration Ceftriaxone Sodium 50 mls @ 100 mls/hr 08/08/17 10:00 08/08/17 09:24 Ceftriaxone 1 Gm-D5w Bag IVPB 100 mls/hr DAILY [facility] Administration Protocol Insulin Detemir 20 units 08/08/17 22:00 08/08/17 22:11 Levemir Vial SQ 20 units HS [facility] Administration Levothyroxine Sodium 100 mcg 08/08/17 07:00 08/09/17 06:34 Synthroid - PO 100 mcg DAILY@0700 [facility] Administration Losartan Potassium 100 mg 08/08/17 10:00 08/08/17 09:24 Cozaar - PO 100 mg DAILY [facility] Administration Metformin HCl 500 mg 08/08/17 10:00 08/09/17 06:34 Glucophage - PO 500 mg BIDAC [facility] Administration Multivitamins/Minerals/Vitamin C 1 tab 08/08/17 10:00 08/08/17 09:24 Tab-A-Vit - PO 1 tab DAILY [facility] Administration Non-Formulary Medication 1 tab 08/08/17 10:00 Cranberry PO BID [facility] Objective: Vital Signs Period Temp Pulse Resp BP Sys/Hernandez Pulse Ox Last 24 Hr 97.8 F-98.8 F 63-78 16-20 152-183/59-68 97-98 Physical Exam: General: NAD, A&Ox3 Lungs: CTA bilaterally Heart: RRR, S1S2 Abd: Soft, non-tender, non-distended. Normoactive bowel sounds Ext: Warm, well-perfused Neuro: CN 2-12 intact. No focal deficits CBCD WBC 15.6 K/mm3 (4.0-10.8) H 08/08/17 07:12 RBC 2.78 M/mm3 (3.60-5.2) L 08/08/17 07:12 Hgb 9.8 GM/dl (10.7-15.3) L 08/08/17 07:12 Hct 28.5 % (32.4-45.2) L 08/08/17 07:12 MCV 102.7 fl (80-96) H 08/08/17 07:12 MCHC 34.3 g/dl (32.0-36.0) 08/08/17 07:12 RDW 15.2 % (11.6-15.6) 08/08/17 07:12 Plt Count 283 K/MM3 (134-434) 08/08/17 07:12 MPV 6.3 fl (7.5-11.1) L 08/08/17 07:12 CMP Sodium 133 mmol/L (136-145) L 08/08/17 07:12 Potassium 3.9 mmol/L (3.5-5.1) 08/08/17 07:12 Chloride 103 mmol/L (98-107) 08/08/17 07:12 Carbon Dioxide 25 mmol/L (22-28) 08/08/17 07:12 Anion Gap 5 (8-16) L 08/08/17 07:12 BUN 25 mg/dl (7-18) H 08/08/17 07:12 Creatinine 1.0 mg/dl (0.6-1.3) 08/08/17 07:12 Creat Clearance w eGFR 42.50 (>60) 08/07/17 17:20 Random Glucose 141 mg/dl (74-106) H 08/08/17 07:12 Calcium 8.9 mg/dl (8.4-10.2) 08/08/17 07:12 Total Bilirubin 0.7 mg/dl (0.2-1.0) 08/07/17 17:20 AST 18 U/L (10-42) 08/07/17 17:20 ALT 13 U/L (10-40) 08/07/17 17:20 Alkaline Phosphatase 74 U/L (32-92) 08/07/17 17:20 Total Protein 6.7 g/dl (6.4-8.3) 08/07/17 17:20 Albumin 3.5 g/dl (3.5-5.0) 08/07/17 17:20 CARDIAC ENZYMES Creatine Kinase 42 IU/L (26-192) 08/07/17 17:20 Troponin I < 0.03 ng/ml (0.00-0.06) 08/07/17 17:20 Microbiology 08/07/17 17:20 Blood - Peripheral Venous Blood Culture - Preliminary NO GROWTH OBTAINED AFTER 24 HOURS, INCUBATION TO CONTINUE FOR 4 DAYS. 08/07/17 17:20 Blood - Peripheral Venous Blood Culture - Preliminary NO GROWTH OBTAINED AFTER 24 HOURS, INCUBATION TO CONTINUE FOR 4 DAYS. Assessment: This is a 87 year old female with PMHx of Hypothyroidism, DM, Anemia , Asthma(no meds), CVA/TIAs x4 (L-residual), L-Breast Ca (s/p Lumpectomy, RT, remission) who presented to the ED with lethargy, generalized weakness, malaise and dysuria. 1) UTI - Was being treated as an outpatient with Doxycycline x3 days which is likely why her UA is negative - F/u urine culture - WBC trending down, continue to trend - Continue Ceftriaxone for now 2) Weakness, confusion, lethargy - Likely 2/2 infection - Patient reports all symptoms have resolved 3) Hyponatremia - Likely 2/2 hypovolemia as the patient reports drinking "a ton" of water and cranberry juice prior to coming in - Corrected Na yesterday 134 - F/u todays level 4) HTN - Remains elevated - Continue Norvasc 10mg po daily - Continue Losartan 100mg po daily - Continue Coreg 25mg po bid - One dose of hctz given today, then discontinued per Dr. Grissom orders 5) DM - BGM ACHS - ISS ACHS - Continue Metformin - Continue Levemir 20u sq HS 6) Macrocytic anemia - Vitamin B12 elevated - F/u folate 7) Hypothyroidism - Continue Synthroid 8) F/E/N: - Diabetic, sodium controlled diet - Monitor electrolytes 9) Prophylaxis: - OOB ambulating - Heparin 5,000u sq bid - Physical Therapy 10) Dispo: - Requires continued inpatient care CODE STATUS: FULL CODE Visit type - Emergency Visit Emergency Visit: Yes ED Registration Date: 08/08/17 Care time: The patient presented to the Emergency Department on the above date and was hospitalized for further evaluation of their emergent condition. - New Patient This patient is new to me today: Yes Date on this admission: 08/11/17 - Critical Care Critical Care patient: No
[2017-08-09] MEDS ORDERED: CEFTRIAXONE 1 GM in DEXTROSE 5%-WATER - 50 ML IVPB SCH (10:00)
[2017-08-09] MEDS ORDERED: HYDROCHLOROTHIAZIDE 12.5 MG CAPSULE (FP) PO SCH (10:00)
[2017-08-09 11:59] LABS: BASO % 0.3 % (0-2.0)
[2017-08-09] MEDS: INSULIN (NOVOLOG) ASPART 100 UNITS/ML 10ML VIAL SQ SCH ×3 (12:03→21:52)
[2017-08-09 12:04] LABS: ANION GAP 9 (8-16); BLOOD UREA NITROGEN 28 mg/dl (7-18); CHLORIDE 96 mmol/L (98-107); CO2 24 mmol/L (22-28); GLUCOSE,RANDOM 227 mg/dl (74-106); POTASSIUM 3.7 mmol/L (3.5-5.1); SODIUM 129 mmol/L (136-145)
[2017-08-09] MEDS ORDERED: INSULIN (NOVOLOG) ASPART 100 UNITS/ML 10ML VIAL ONE (12:05)
[2017-08-09 12:12] LABS: EOS % 5.3 % (0-4.5); HEMATOCRIT 30.4 % (32.4-45.2); HEMOGLOBIN 10.6 GM/dl (10.7-15.3); LYMPH % 12.8 % (8-40); MCH 35.9 pg (25.7-33.7); MCHC 34.8 g/dl (32.0-36.0); MEAN CELL VOLUME 102.9 fl (80-96); MEAN PLT VOLUME 6.5 fl (7.5-11.1); MONO % 7.9 % (3.8-10.2); NEUT % 73.7 % (42.8-82.8); PLATELET COUNT 273 K/MM3 (134-434); RBC 2.95 M/mm3 (3.60-5.2); RDW 15.5 % (11.6-15.6)
--- NOTE | 2017-08-09 12:34 | CON.NEP ---
Consult Consult Specialty:: nephrology Referred by:: dr gibbons Reason for Consultation:: hyponatremia - History of Present Illness Chief Complaint: hyponatremia History of Present Illness: admitted with gen weakness and lethargy c/o manjarrez and lightheadedness found to have leukocytosis abve baseline high wbc referred for eval of hyponatremia and azotemia labs reviewed and mookie chronic hyponatremia going back to 2010 she is on hctz over a period of years for systolic htn and she reports have lower BP's recently alos has h/o hypothyroidism - History Source History Provided By: Patient, Medical Record Limitations to Obtaining History: No Limitations - Past Medical History [employer]: Yes: CVA, Peripheral Neuropathy, Other (guillain barre syndrome, hx bacterial meningitis 1953) Cardio/Vascular: Yes: HTN Gastrointestinal: Yes: GERD Endocrine: Yes: Diabetes Mellitus - Alcohol/Substance Use Hx Alcohol Use: No - Smoking History Smoking history: Never smoked Have you smoked in the past 12 months: No Aproximately how many cigarettes per day: 0 Home Medications - Allergies Allergies/Adverse Reactions: Allergies Allergy/AdvReac Type Severity Reaction Status Date / Time NSAIDS (Non-Steroidal Allergy Severe Difficulty Verified 08/07/17 16:42 Anti-Inflamma Breathing ibuprofen Allergy Intermediate Rash Verified 08/07/17 16:42 meloxicam [From Mobic] Allergy Intermediate Rash Verified 08/07/17 16:42 rosiglitazone maleate Allergy Verified 08/07/17 16:42 [From Avandia] albuterol AdvReac Intermediate Elevated Verified 08/07/17 16:42 Blood Pressure epinephrine AdvReac Intermediate Elevated Verified 08/07/17 16:42 Blood Pressure oxycodone HCl [From Percodan] AdvReac Intermediate Elevated Verified 08/07/17 16 :42 Blood Pressure oxycodone terephthalate AdvReac Intermediate Elevated Verified 08/07/17 16:42 [From Percodan] Blood Pressure flu shot AdvReac Severe [place] Uncoded 07/27/14 19:22 BARRE SYNDROME - Home Medications Home Medications: Ambulatory Orders Ascorbic Acid [Vitamin C] 1,000 mg PO BID tablet 07/08/13 Cholecalciferol (Vitamin D3) [Vitamin D3] 1,000 unit PO DAILY tablet 07/08/13 Cranberry 1 tab PO BID 06/08/14 Multivitamins [Multivit ([facility] Formulary)] 1 tab PO DAILY 06/10/14 Aspirin [ASA -] 81 mg PO DAILY #0 06/14/14 Letrozole 2.5 mg PO DAILY 30 Days tablet 11/11/14 Doxycycline Hyclate 100 mg PO BID 08/07/17 Famotidine [Pepcid] 20 mg PO DAILY 08/07/17 Nephrology Consult - Height Height: 5 ft 6 in - Weight Weight: 194 lb - BMI Body Mass Index (BMI): 31.3 - Lab Results CBC,BMP: CBC, BMP 08/09/17 09:30 08/09/17 09:30 Anion Gap: Anion Gap Anion Gap 9 (8-16) 08/09/17 09:30 - Physical Examination Vital Signs: Vital Signs Temperature 97.8 F 08/09/17 06:00 Pulse Rate 75 08/09/17 10:00 Respiratory Rate 16 08/09/17 10:00 Blood Pressure 151/75 08/09/17 10:00 O2 Sat by Pulse Oximetry (%) 97 08/09/17 08:48 Assessment/Plan chronic hyponatremia fluctuating levels she has chronically low na prob 2/2 hctz in part if hctz is being used to control sys htn, it may be a trade off as long as her serum sodium is monitored some of the low Na is multifactorial- (dehydration, thiazide use, acute illness ) R/O siadh prerenal azotemia- 2/2 infection, fluid deficit, improving Proteinuria on u/a, could be 2/2 acute infection will check U P/cr ratio Plan- hold hctz test urine osmolality
[2017-08-09] MEDS: INSULIN (LEVEMIR) 100 UNITS/ML UNITS SQ SCH (21:52)
[2017-08-10] MEDS: INSULIN (NOVOLOG) ASPART 100 UNITS/ML 10ML VIAL SQ SCH ×4 (07:04→21:24)
[2017-08-10] MEDS: metFORMIN HCL 500 MG TABLET (FP) PO SCH ×2 (07:04→17:02)
[2017-08-10] MEDS: LEVOTHYROXINE NA 100 MCG TABLET (FP) PO SCH (07:04)
--- NOTE | 2017-08-10 08:45 | PN ---
Physical Exam: SUBJECTIVE: Patient seen and examined, pt reports feeling better, denies fever, chills,abdominal pain,N/V/D or urinary symptoms. OBJECTIVE: Vital Signs Period Temp Pulse Resp BP Sys/Hernandez Pulse Ox Last 24 Hr 98.2 F-98.6 F 75-80 16-20 139-180/56-75 97-100 GENERAL: The patient is awake, alert, and fully oriented, in no acute distress. HEAD: Normal with no signs of trauma. LUNGS: Breath sounds equal, clear to auscultation bilaterally, no wheezes, no crackles, no accessory muscle use. HEART: Regular rate and rhythm, S1, S2 without murmur, rub or gallop. ABDOMEN: Soft, nontender, nondistended, normoactive bowel sounds, no guarding, no rebound, no hepatosplenomegaly, no masses. EXTREMITIES: 2+ pulses, warm, well-perfused, no edema, left side weakness NEUROLOGICAL: Cranial nerves II through XII grossly intact. Normal speech, gait not observed. PSYCH: Normal mood, normal affect. SKIN: Warm, dry, normal turgor, no rashes or lesions noted Laboratory Results - last 24 hr 08/09/17 08/09/17 08/09/17 09:30 09:30 09:30 WBC 16.0 H RBC 2.95 L Hgb 10.6 L Hct 30.4 L MCV 102.9 H MCH 35.9 H MCHC 34.8 RDW 15.5 Plt Count 273 MPV 6.5 L Neutrophils % 73.7 Lymphocytes % 12.8 Monocytes % 7.9 Eosinophils % 5.3 H Basophils % 0.3 Sodium 129 L Potassium 3.7 Chloride 96 L Carbon Dioxide 24 Anion Gap 9 BUN 28 H Creatinine 1.0 POC Glucometer Random Glucose 227 H D Calcium 9.0 Serum Folate 59 H Urine Protein Urine Osmolality Ur Random Sodium Urine Creatinine Stool Occult Blood 08/09/17 08/09/17 08/09/17 10:58 10:58 10:58 WBC RBC Hgb Hct MCV MCH MCHC RDW Plt Count MPV Neutrophils % Lymphocytes % Monocytes % Eosinophils % Basophils % Sodium Potassium Chloride Carbon Dioxide Anion Gap BUN Creatinine POC Glucometer Random Glucose Calcium Serum Folate Urine Protein Urine Osmolality 398 Ur Random Sodium 56 Urine Creatinine 46.7 Stool Occult Blood 08/09/17 08/09/17 08/09/17 10:58 11:56 16:40 WBC RBC Hgb Hct MCV MCH MCHC RDW Plt Count MPV Neutrophils % Lymphocytes % Monocytes % Eosinophils % Basophils % Sodium Potassium Chloride Carbon Dioxide Anion Gap BUN Creatinine POC Glucometer 156 Random Glucose Calcium Serum Folate Urine Protein 412 Urine Osmolality Ur Random Sodium Urine Creatinine Stool Occult Blood Negative 08/09/17 08/09/17 08/10/17 16:52 21:48 06:18 WBC RBC Hgb Hct MCV MCH MCHC RDW Plt Count MPV Neutrophils % Lymphocytes % Monocytes % Eosinophils % Basophils % Sodium Potassium Chloride Carbon Dioxide Anion Gap BUN Creatinine POC Glucometer 203 156 143 Random Glucose Calcium Serum Folate Urine Protein Urine Osmolality Ur Random Sodium Urine Creatinine Stool Occult Blood Active Medications Generic Name Dose Route Start Last Admin Trade Name Freq PRN Reason Stop Dose Admin Amlodipine Besylate 10 mg 08/09/17 10:00 08/09/17 09:33 Norvasc - PO 10 mg DAILY [facility] Administration Ascorbic Acid 1,000 mg 08/08/17 10:00 08/09/17 21:51 Vitamin C - PO 1,000 mg BID [facility] Administration Carvedilol 25 mg 08/08/17 10:00 08/09/17 21:51 Coreg - PO 25 mg BID [facility] Administration Cholecalciferol 1,000 unit 08/08/17 10:00 08/09/17 09:33 Vitamin D3 - PO 1,000 unit DAILY [facility] Administration Famotidine 20 mg 08/08/17 10:00 08/09/17 09:33 Pepcid - PO 20 mg DAILY [facility] Administration Heparin Sodium (Porcine) 5,000 unit 08/08/17 22:00 08/09/17 21:51 Heparin - SQ 5,000 unit BID [facility] Administration Ceftriaxone Sodium 50 mls @ 100 mls/hr 08/08/17 10:00 08/09/17 09:32 Ceftriaxone 1 Gm-D5w Bag IVPB 100 mls/hr DAILY [facility] Administration Protocol Insulin Aspart 0 units 08/09/17 11:00 08/10/17 07:04 Novolog Vial SQ Not Given ACHS [facility] Protocol Insulin Detemir 20 units 08/08/17 22:00 08/09/17 21:52 Levemir Vial SQ 20 units HS [facility] Administration Levothyroxine Sodium 100 mcg 08/08/17 07:00 08/10/17 07:04 Synthroid - PO 100 mcg DAILY@0700 [facility] Administration Losartan Potassium 100 mg 08/08/17 10:00 08/09/17 09:33 Cozaar - PO 100 mg DAILY [facility] Administration Metformin HCl 500 mg 08/08/17 10:00 08/10/17 07:04 Glucophage - PO 500 mg BIDAC [facility] Administration Multivitamins/Minerals/Vitamin C 1 tab 08/08/17 10:00 08/09/17 09:33 Tab-A-Vit - PO 1 tab DAILY [facility] Administration Non-Formulary Medication 1 tab 08/08/17 10:00 Cranberry PO BID [facility] Microbiology 08/07/17 17:20 Blood Culture - Preliminary Blood - Peripheral Venous NO GROWTH OBTAINED AFTER 48 HOURS, INCUBATION TO CONTINUE FOR 3 DAYS. 08/07/17 17:20 Blood Culture - Preliminary Blood - Peripheral Venous NO GROWTH OBTAINED AFTER 48 HOURS, INCUBATION TO CONTINUE FOR 3 DAYS. 08/07/17 19:30 Urine Culture - Final Urine - Urine Clean Catch Contaminated: Please Repeat ASSESSMENT/PLAN: This is a 87 y/o woman PMH; Hypothyroid, DM, Anemia, Asthma(no meds), CVA/TIAs x4 (L-residual), L-Breast Ca (s/p Lumpectomy, RT, remission). Who presents to the ED with lethargy, generalized weakness, malaise and dysuria. 1) UTI - outpatient with Doxycycline x3 days which is likely why her UA is negative - repeat urine culture pending - WBC trending down,afebrile - Continue Ceftriaxone for now 2) Weakness, confusion, lethargy likely 2/2 infection- improved - PT following 3) Hyponatremia- improving - Likely 2/2 hypovolemia as the patient reports drinking "a ton" of water and cranberry juice prior to coming in - renal following - Bladder US- No acute pathology - serum osmolality - 398 - will f/u on [employer] 4) HTN -remains elevated -will cont on Losartan, Coreg and Norvasc -will hold off on HCTZ in view of hyponatremia - will monitor BP closely 5) DM- BS mildly elevated - BGM ACHS - ISS ACHS - Continue Metformin and Levemir 20u sq HS - Hgb Alc 6.9 6) Macrocytic anemia - CBC stable - Vitamin B12,Folate elevated - stool OB negative 7) Hypothyroidism - Continue Synthroid - TSH- wnl 8) F/E/N: - Diabetic, sodium controlled diet - Monitor electrolytes 9) Prophylaxis: - OOB ambulating - Heparin 5,000u sq bid - Physical Therapy 10) Dispo: - Requires continued inpatient care CODE STATUS: FULL CODE Visit type - Emergency Visit Emergency Visit: Yes ED Registration Date: 08/08/17 Care time: The patient presented to the Emergency Department on the above date and was hospitalized for further evaluation of their emergent condition. - New Patient This patient is new to me today: Yes Date on this admission: 08/10/17 - Critical Care Critical Care patient: No
[2017-08-10 09:11] LABS: HEMATOCRIT 29.3 % (32.4-45.2); HEMOGLOBIN 10.1 GM/dl (10.7-15.3); MCH 35.4 pg (25.7-33.7); MCHC 34.6 g/dl (32.0-36.0); MEAN CELL VOLUME 102.3 fl (80-96); MEAN PLT VOLUME 6.1 fl (7.5-11.1); PLATELET COUNT 305 K/MM3 (134-434); RBC 2.86 M/mm3 (3.60-5.2); RDW 14.7 % (11.6-15.6); WHITE BLOOD COUNT 15.7 K/mm3 (4.0-10.8)
[2017-08-10] MEDS: CEFTRIAXONE 1 G/50 ML PREMIX 50 ML IVPB SCH (09:11)
[2017-08-10] MEDS: ASCORBIC ACID 500 MG TABLET (FP) PO SCH ×2 (09:11→21:15)
[2017-08-10] MEDS: CARVEDILOL 25 MG TABLET (FP) PO SCH ×2 (09:12→21:15)
[2017-08-10] MEDS: LOSARTAN POTASSIUM 50 MG TABLET (FP) PO SCH (09:12)
[2017-08-10] MEDS: MULTIVITAMINS (DAILY MVI) TABLET (FP) PO SCH (09:12)
[2017-08-10] MEDS: CHOLECALCIFEROL (VITAMIN D3) 1,000 UNIT TABLET (FP) PO SCH (09:12)
[2017-08-10] MEDS: FAMOTIDINE 20 MG TABLET PO SCH (09:12)
[2017-08-10] MEDS: HEPARIN NA (PORCINE) 5,000 UNITS/ML 1ML VIAL SQ SCH ×2 (09:13→21:21)
[2017-08-10] MEDS: amLODIPine BESYLATE 10 MG TABLET (FP) PO SCH (09:13)
[2017-08-10 09:38] LABS: ANION GAP 10 (8-16); BLOOD UREA NITROGEN 30 mg/dl (7-18); CALCIUM 8.6 mg/dl (8.4-10.2); CHLORIDE 98 mmol/L (98-107); CO2 24 mmol/L (22-28); CREATININE 1.1 mg/dl (0.6-1.3); GLUCOSE,RANDOM 122 mg/dl (74-106); POTASSIUM 3.5 mmol/L (3.5-5.1); SODIUM 132 mmol/L (136-145); URIC ACID 6.1 mg/dl (2.6-7.2)
[2017-08-10 10:11] LABS: URINE APPEARANCE Clear; URINE BILIRUBIN Negative (NEGATIVE); URINE COLOR YELLOW; URINE GLUCOSE (UA) Negative (NEGATIVE); URINE KETONE Negative (NEGATIVE); URINE LEUK ESTERASE Negative (NEGATIVE); URINE NITRITE Negative (NEGATIVE); URINE PROTEIN 3+ (NEGATIVE); URINE UROBILINOGEN 0.2 (0.2-1.0)
[2017-08-10 11:23] LABS: URINE RBC 0-2 /hpf (0-3); URINE WBC 0-3 (0-5)
[2017-08-10 12:03] LABS: OSMOLALITY,SERUM 282 mosm/kg (278-305)
[2017-08-10] MEDS ORDERED: INSULIN (NOVOLOG) ASPART 100 UNITS/ML 10ML VIAL ONE ×2 (12:08→21:23)
--- NOTE | 2017-08-10 14:57 | PN ---
Progress Note (short form) - Note Progress Note: Last Vital Signs Temp Pulse Resp BP Pulse Ox 97.3 F L 76 20 151/66 99 08/10/17 12:04 08/10/17 12:04 08/10/17 12:04 08/10/17 12:04 08/10/17 12:04 CBC, BMP 08/10/17 06:00 08/10/17 06:00 08/09/17 08/09/17 08/09/17 10:58 10:58 10:58 Ur Specific Umbarger Urine Protein Urine Osmolality 398 Ur Random Sodium 56 Urine Creatinine 46.7 U spot protein 412 U spot creat 46.7 08/10/17 06:00 Ur Specific Umbar[place] 1.020 Urine Protein 3+ H Urine Osmolality Ur Random Sodium Urine Creatinine IMP- chronic hyponatremia serum Na better 132 dehydration prerenal azotemia presists underlying ckd 2/2 age/ascvd significant proteinuria based on U protein/creat ratio may be from acute illness anemia/ history of myeloproliferative disorder Systolic HTN monitor off hctz can be d/c from renal stand point needs renal f/u to check if proteinuria persists
[2017-08-10] MEDS: INSULIN (LEVEMIR) 100 UNITS/ML UNITS SQ SCH (21:20)
[2017-08-11] MEDS: INSULIN (NOVOLOG) ASPART 100 UNITS/ML 10ML VIAL SQ SCH ×4 (06:20→22:15)
[2017-08-11] MEDS: LEVOTHYROXINE NA 100 MCG TABLET (FP) PO SCH (06:20)
[2017-08-11] MEDS: metFORMIN HCL 500 MG TABLET (FP) PO SCH ×2 (06:20→17:04)
[2017-08-11 08:38] LABS: ANION GAP 9 (8-16); BLOOD UREA NITROGEN 34 mg/dl (7-18); CALCIUM 8.3 mg/dl (8.4-10.2); CHLORIDE 98 mmol/L (98-107); CO2 24 mmol/L (22-28); CREATININE 1.1 mg/dl (0.6-1.3); EOS % 5.7 % (0-4.5); GLUCOSE,RANDOM 129 mg/dl (74-106); HEMATOCRIT 28.4 % (32.4-45.2); HEMOGLOBIN 9.9 GM/dl (10.7-15.3); LYMPH % 14.7 % (8-40); MCH 35.6 pg (25.7-33.7); MCHC 34.9 g/dl (32.0-36.0); MEAN PLT VOLUME 6.1 fl (7.5-11.1); MONO % 8.6 % (3.8-10.2); PLATELET COUNT 275 K/MM3 (134-434); POTASSIUM 3.5 mmol/L (3.5-5.1); RBC 2.78 M/mm3 (3.60-5.2); RDW 14.8 % (11.6-15.6); SODIUM 131 mmol/L (136-145); WHITE BLOOD COUNT 14.5 K/mm3 (4.0-10.8)
[2017-08-11] MEDS: MULTIVITAMINS (DAILY MVI) TABLET (FP) PO SCH (09:27)
[2017-08-11] MEDS: amLODIPine BESYLATE 10 MG TABLET (FP) PO SCH (09:27)
[2017-08-11] MEDS: CARVEDILOL 25 MG TABLET (FP) PO SCH ×2 (09:27→22:14)
[2017-08-11] MEDS: CHOLECALCIFEROL (VITAMIN D3) 1,000 UNIT TABLET (FP) PO SCH (09:27)
[2017-08-11] MEDS: FAMOTIDINE 20 MG TABLET PO SCH (09:27)
[2017-08-11] MEDS: CEFTRIAXONE 1 G/50 ML PREMIX 50 ML IVPB SCH (09:27)
[2017-08-11] MEDS: ASCORBIC ACID 500 MG TABLET (FP) PO SCH ×2 (09:28→22:14)
[2017-08-11] MEDS: HEPARIN NA (PORCINE) 5,000 UNITS/ML 1ML VIAL SQ SCH ×2 (09:28→22:14)
[2017-08-11] MEDS: LOSARTAN POTASSIUM 50 MG TABLET (FP) PO SCH (09:28)
[2017-08-11] MEDS ORDERED: INSULIN (NOVOLOG) ASPART 100 UNITS/ML 10ML VIAL ONE (11:34)
--- NOTE | 2017-08-11 12:33 | PN ---
Progress Note, Physician History of Present Illness: Pt seen and examined at bedside. She is awake and alert. She denies shortness of breath. She is out of bed to chair and having lunch. - Current Medication List Current Medications: Active Medications Amlodipine Besylate (Norvasc -) 10 mg PO DAILY [facility] Last Admin: 08/11/17 09:27 Dose: 10 mg Ascorbic Acid (Vitamin C -) 1,000 mg PO BID [facility] Last Admin: 08/11/17 09:28 Dose: 1,000 mg Carvedilol (Coreg -) 25 mg PO BID [facility] Last Admin: 08/11/17 09:27 Dose: 25 mg Cholecalciferol (Vitamin D3 -) 1,000 unit PO DAILY [facility] Last Admin: 08/11/17 09:27 Dose: 1,000 unit Famotidine (Pepcid -) 20 mg PO DAILY [facility] Last Admin: 08/11/17 09:27 Dose: 20 mg Heparin Sodium (Porcine) (Heparin -) 5,000 unit SQ BID [facility] Last Admin: 08/11/17 09:28 Dose: 5,000 unit Ceftriaxone Sodium (Ceftriaxone 1 Gm-D5w Bag) 50 mls @ 100 mls/hr IVPB DAILY [facility] PRN Reason: Protocol Last Admin: 08/11/17 09:27 Dose: 100 mls/hr Insulin Aspart (Novolog Vial) 0 units SQ ACHS [facility] PRN Reason: Protocol Last Admin: 08/11/17 11:37 Dose: 4 units Insulin Detemir (Levemir Vial) 20 units SQ HS [facility] Last Admin: 08/10/17 21:20 Dose: 20 units Levothyroxine Sodium (Synthroid -) 100 mcg PO DAILY@0700 [facility] Last Admin: 08/11/17 06:20 Dose: 100 mcg Losartan Potassium (Cozaar -) 100 mg PO DAILY [facility] Last Admin: 08/11/17 09:28 Dose: 100 mg Metformin HCl (Glucophage -) 500 mg PO BIDAC [facility] Last Admin: 08/11/17 06:20 Dose: 500 mg Multivitamins/Minerals/Vitamin C (Tab-A-Vit -) 1 tab PO DAILY [facility] Last Admin: 08/11/17 09:27 Dose: 1 tab - Objective Vital Signs: Vital Signs Temperature 98.1 F 08/11/17 10:00 Pulse Rate 79 08/11/17 10:00 Respiratory Rate 18 08/11/17 10:00 Blood Pressure 136/51 08/11/17 10:00 O2 Sat by Pulse Oximetry (%) 98 08/11/17 10:00 Constitutional: Yes: Calm Eyes: Yes: Conjunctiva Clear HENT: Yes: Atraumatic Neck: Yes: Supple Cardiovascular: Yes: S1, S2 Respiratory: Yes: CTA Bilaterally Gastrointestinal: Yes: Soft Genitourinary: Yes: WNL Musculoskeletal: Yes: WNL Edema: No Neurological: Yes: Oriented Psychiatric: Yes: Oriented Labs: CBC, BMP 08/11/17 07:05 08/11/17 07:05 INR, PTT INR 1.07 (0.82-1.09) 08/07/17 17:20 Problem List - Problems (1) Hyponatremia Code(s): E87.1 - HYPO-OSMOLALITY AND HYPONATREMIA (2) Hypothyroid Code(s): E03.9 - HYPOTHYROIDISM, UNSPECIFIED (3) UTI (urinary tract infection) Code(s): N39.0 - URINARY TRACT INFECTION, SITE NOT SPECIFIED (4) Breast cancer Code(s): C50.919 - MALIGNANT NEOPLASM OF UNSP SITE OF UNSPECIFIED FEMALE BREAST Assessment/Plan Current Medications Generic Name Dose Route Start Last Admin Trade Name Freq PRN Reason Stop Dose Admin Amlodipine Besylate 10 mg 08/09/17 10:00 08/11/17 09:27 Norvasc - PO 10 mg DAILY [facility] Administration Ascorbic Acid 1,000 mg 08/08/17 10:00 08/11/17 09:28 Vitamin C - PO 1,000 mg BID [facility] Administration Carvedilol 25 mg 08/08/17 10:00 08/11/17 09:27 Coreg - PO 25 mg BID [facility] Administration Cholecalciferol 1,000 unit 08/08/17 10:00 08/11/17 09:27 Vitamin D3 - PO 1,000 unit DAILY [facility] Administration Famotidine 20 mg 08/08/17 10:00 08/11/17 09:27 Pepcid - PO 20 mg DAILY [facility] Administration Heparin Sodium (Porcine) 5,000 unit 08/08/17 22:00 08/11/17 09:28 Heparin - SQ 5,000 unit BID [facility] Administration Ceftriaxone Sodium 50 mls @ 100 mls/hr 08/08/17 10:00 08/11/17 09:27 Ceftriaxone 1 Gm-D5w Bag IVPB 100 mls/hr DAILY [facility] Administration Protocol Insulin Aspart 0 units 08/09/17 11:00 08/11/17 11:37 Novolog Vial SQ 4 units ACHS [facility] Administration Protocol Insulin Detemir 20 units 08/08/17 22:00 08/10/17 21:20 Levemir Vial SQ 20 units HS [facility] Administration Levothyroxine Sodium 100 mcg 08/08/17 07:00 08/11/17 06:20 Synthroid - PO 100 mcg DAILY@0700 [facility] Administration Losartan Potassium 100 mg 08/08/17 10:00 08/11/17 09:28 Cozaar - PO 100 mg DAILY [facility] Administration Metformin HCl 500 mg 08/08/17 10:00 08/11/17 06:20 Glucophage - PO 500 mg BIDAC [facility] Administration Multivitamins/Minerals/Vitamin C 1 tab 08/08/17 10:00 08/11/17 09:27 Tab-A-Vit - PO 1 tab DAILY [facility] Administration Laboratory Tests 06/08/14 01/15/16 08/07/17 17:58 16:23 17:20 Sodium 132 L 129 L 128 L 08/09/17 08/11/17 09:30 07:05 Sodium 129 L 131 L Laboratory Tests 08/09/17 08/09/17 08/10/17 10:58 10:58 06:00 Serum Osmolality 282 Urine Osmolality 398 Ur Random Sodium 56 Impression 1. hyponatremia - appears to be chronic 2. hypothyroid 3. HTN 4. DM 5. UTI 6. breast cancer Plan - agree with holding thiazide - pt has an iso-osmolar hyponatremia - check spep - called and left a message for PMD, Dr Salinas - discussed with medical team - sodium has been low since 2010 Dr Sequeira
--- NOTE | 2017-08-11 13:49 | PN ---
Physical Exam: SUBJECTIVE: Patient seen and examined, reports feeling improved, does reports generalized weakness upon ambulating, patient denies any dyspnea upon exertion OBJECTIVE:patient is a 87 y/o female with a past medical history of Hypothyroidism, DM, pernicous Anemia, Asthma(no meds), CVA/TIAs x4 (L-residual) , L-Breast Ca (s/p Lumpectomy, RT, remission). Patient was admitted from the emergency department to observation for hyponatremia, UTI after failing outpatient therapy. Vital Signs Period Temp Pulse Resp BP Sys/Hernandez Pulse Ox Last 24 Hr 97.6 F-98.6 F 78-98 16-20 118-148/49-87 97-99 GENERAL: The patient is awake, alert, and fully oriented, in no acute distress. HEAD: Normal with no signs of trauma. EYES: PERRL, extraocular movements intact, sclera anicteric, conjunctiva clear. No ptosis. ENT: Ears normal, nares patent, oropharynx clear without exudates, moist mucous membranes. NECK: Trachea midline, full range of motion, supple. LUNGS: Breath sounds equal, clear to auscultation bilaterally, no wheezes, no crackles, no accessory muscle use. HEART: Regular rate and rhythm, S1, S2 without murmur, rub or gallop. ABDOMEN: Soft, nontender, nondistended, normoactive bowel sounds, no guarding, no rebound, no hepatosplenomegaly, no masses. EXTREMITIES: 2+ pulses, warm, well-perfused, no edema. NEUROLOGICAL: Cranial nerves II through XII grossly intact. Normal speech, gait not observed. PSYCH: Normal mood, normal affect. SKIN: Warm, dry, normal turgor, no rashes or lesions noted Laboratory Results - last 24 hr 08/10/17 08/10/17 08/11/17 16:56 21:17 06:19 WBC RBC Hgb Hct MCV MCH MCHC RDW Plt Count MPV Neutrophils % Lymphocytes % Monocytes % Eosinophils % Basophils % Sodium Potassium Chloride Carbon Dioxide Anion Gap BUN Creatinine POC Glucometer 146 210 147 Random Glucose Calcium 08/11/17 08/11/17 08/11/17 07:05 07:05 11:28 WBC 14.5 H RBC 2.78 L Hgb 9.9 L Hct 28.4 L MCV 102.0 H MCH 35.6 H MCHC 34.9 RDW 14.8 Plt Count 275 MPV 6.1 L Neutrophils % 71.0 Lymphocytes % 14.7 Monocytes % 8.6 Eosinophils % 5.7 H Basophils % 0.0 Sodium 131 L Potassium 3.5 Chloride 98 Carbon Dioxide 24 Anion Gap 9 BUN 34 H Creatinine 1.1 POC Glucometer 230 Random Glucose 129 H Calcium 8.3 L Active Medications Generic Name Dose Route Start Last Admin Trade Name Freq PRN Reason Stop Dose Admin Amlodipine Besylate 10 mg 08/09/17 10:00 08/11/17 09:27 Norvasc - PO 10 mg DAILY [facility] Administration Ascorbic Acid 1,000 mg 08/08/17 10:00 08/11/17 09:28 Vitamin C - PO 1,000 mg BID [facility] Administration Carvedilol 25 mg 08/08/17 10:00 08/11/17 09:27 Coreg - PO 25 mg BID [facility] Administration Cholecalciferol 1,000 unit 08/08/17 10:00 08/11/17 09:27 Vitamin D3 - PO 1,000 unit DAILY [facility] Administration Famotidine 20 mg 08/08/17 10:00 08/11/17 09:27 Pepcid - PO 20 mg DAILY [facility] Administration Heparin Sodium (Porcine) 5,000 unit 08/08/17 22:00 08/11/17 09:28 Heparin - SQ 5,000 unit BID [facility] Administration Ceftriaxone Sodium 50 mls @ 100 mls/hr 08/08/17 10:00 08/11/17 09:27 Ceftriaxone 1 Gm-D5w Bag IVPB 100 mls/hr DAILY [facility] Administration Protocol Insulin Aspart 0 units 08/09/17 11:00 08/11/17 11:37 Novolog Vial SQ 4 units ACHS [facility] Administration Protocol Insulin Detemir 20 units 08/08/17 22:00 08/10/17 21:20 Levemir Vial SQ 20 units HS [facility] Administration Levothyroxine Sodium 100 mcg 08/08/17 07:00 08/11/17 06:20 Synthroid - PO 100 mcg DAILY@0700 [facility] Administration Losartan Potassium 100 mg 08/08/17 10:00 08/11/17 09:28 Cozaar - PO 100 mg DAILY [facility] Administration Metformin HCl 500 mg 08/08/17 10:00 08/11/17 06:20 Glucophage - PO 500 mg BIDAC [facility] Administration Multivitamins/Minerals/Vitamin C 1 tab 08/08/17 10:00 08/11/17 09:27 Tab-A-Vit - PO 1 tab DAILY [facility] Administration Microbiology 08/07/17 17:20 Blood - Peripheral Venous Blood Culture - Preliminary NO GROWTH OBTAINED AFTER 72 HOURS, INCUBATION TO CONTINUE FOR 2 DAYS. 08/07/17 17:20 Blood - Peripheral Venous Blood Culture - Preliminary NO GROWTH OBTAINED AFTER 72 HOURS, INCUBATION TO CONTINUE FOR 2 DAYS. 08/07/17 19:30 Urine - Urine Clean Catch Urine Culture - Final Contaminated: Please Repeat ASSESSMENT/PLAN: 1) UTI - failed outpatient with Doxycycline x3 days which is likely why her UA is negative, first urine culture contaminated, pending 2nd urine culture - WBC trending down,afebrile - Continue Ceftriaxone until final culture is obtained - Bladder US- No acute pathology 2) neuro metabolic encephalopathy - secondary to hyponatremia vs uti, patient is at baseline - continue fall precautions 3) Hyponatremia- improving - Likely 2/2 hypovolemia vs thiazide, serum sodium improving - renal following 4)cardiovascular HTN -will cont on Losartan, Coreg and Norvasc -will hold off on HCTZ in view of hyponatremia - will monitor BP closely 5)endo DM- BS mildly elevated - BGM ACHS - ISS ACHS - Continue Metformin and Levemir 20u sq HS Hypothyroidism - Continue Synthroid - TSH- wnl 6) Macrocytic anemia - CBC stable - Vitamin B12,Folate elevated - stool OB negative 7) F/E/N: - Diabetic, sodium controlled diet - Monitor electrolytes 8) Prophylaxis: - OOB ambulating - Heparin 5,000u sq bid - Physical Therapy 9) Dispo: - Requires continued inpatient care CODE STATUS: FULL CODE Visit type - Emergency Visit Emergency Visit: Yes ED Registration Date: 08/08/17 Care time: The patient presented to the Emergency Department on the above date and was hospitalized for further evaluation of their emergent condition. - New Patient This patient is new to me today: No - Critical Care Critical Care patient: No - Discharge Referral Referred to [facility] Med P.C.: No
[2017-08-11] MEDS: INSULIN (LEVEMIR) 100 UNITS/ML UNITS SQ SCH (22:14)
[2017-08-12] MEDS: metFORMIN HCL 500 MG TABLET (FP) PO SCH (06:24)
[2017-08-12] MEDS: LEVOTHYROXINE NA 100 MCG TABLET (FP) PO SCH (06:24)
[2017-08-12] MEDS: INSULIN (NOVOLOG) ASPART 100 UNITS/ML 10ML VIAL SQ SCH ×2 (06:24→11:19)
[2017-08-12 06:33] VITALS: BP 134/54; PULSE 76; TEMP 97.7
--- NOTE | 2017-08-12 08:41 | DS ---
Physical Exam: SUBJECTIVE: Patient seen and examined, sitting in bedside chair, reports feeling much improved, tolerating diet. OBJECTIVE:This is a 87 y/o woman PMH; Hypothyroid, DM, Anemia, Asthma(no meds), CVA/TIAs x4 (L-residual), L-Breast Ca (s/p Lumpectomy, RT, remission). Who presents to the ED with lethargy, generalized weakness, malaise and dysuria. Patient reports being treated for a UTI on Doxycycline Day #3. She reports drinking large amounts of water, taking cranberry supplements and Vit C for her UTI and to stay hydrated. She states" I have been feeling so weak, I feel like a rag doll". Patient endorses chills, bladder spams, abdominal cramping and a decreased appetite. Patient denies fever, CABRALES, SOB, CP, palpitations, constipation. ER course was notable for: (1) Na 128 (2) WBC 18.9 (3) BUN 31, Cr 1.2 Vital Signs Period Temp Pulse Resp BP Sys/Hernandez Pulse Ox Last 24 Hr 97.6 F-98.1 F 76-80 18-18 134-143/51-61 96-99 PHYSICAL EXAM GENERAL: The patient is awake, alert, and fully oriented, in no acute distress. HEAD: Normal with no signs of trauma. EYES: PERRL, extraocular movements intact, sclera anicteric, conjunctiva clear. ENT: Ears normal, nares patent, oropharynx clear without exudates, moist mucous membranes. NECK: Trachea midline, full range of motion, supple. LUNGS: Breath sounds equal, clear to auscultation bilaterally, no wheezes, no crackles, no accessory muscle use. HEART: Regular rate and rhythm, S1, S2 without murmur, rub or gallop. ABDOMEN: Soft, nontender, nondistended, normoactive bowel sounds, no guarding, no rebound, no hepatosplenomegaly, no masses. EXTREMITIES: 2+ pulses, warm, well-perfused, no edema. NEUROLOGICAL: Cranial nerves II through XII grossly intact. Normal speech, gait not observed. PSYCH: Normal mood, normal affect. SKIN: Warm, dry, normal turgor, no rashes or lesions noted. LABS Laboratory Results - last 24 hr 08/11/17 08/11/17 08/11/17 07:05 07:05 11:28 WBC 14.5 H RBC 2.78 L Hgb 9.9 L Hct 28.4 L MCV 102.0 H MCH 35.6 H MCHC 34.9 RDW 14.8 Plt Count 275 MPV 6.1 L Neutrophils % 71.0 Lymphocytes % 14.7 Monocytes % 8.6 Eosinophils % 5.7 H Basophils % 0.0 Sodium 131 L Potassium 3.5 Chloride 98 Carbon Dioxide 24 Anion Gap 9 BUN 34 H Creatinine 1.1 POC Glucometer 230 Random Glucose 129 H Calcium 8.3 L 08/11/17 08/11/17 08/12/17 16:34 22:19 06:22 WBC RBC Hgb Hct MCV MCH MCHC RDW Plt Count MPV Neutrophils % Lymphocytes % Monocytes % Eosinophils % Basophils % Sodium Potassium Chloride Carbon Dioxide Anion Gap BUN Creatinine POC Glucometer 141 165 142 Random Glucose Calcium Microbiology 08/09/17 10:58 Urine - Urine Clean Catch Urine Culture - Final 08/07/17 17:20 Blood - Peripheral Venous Blood Culture - Preliminary NO GROWTH OBTAINED AFTER 96 HOURS, INCUBATION TO CONTINUE FOR 1 DAYS. 08/07/17 17:20 Blood - Peripheral Venous Blood Culture - Preliminary NO GROWTH OBTAINED AFTER 96 HOURS, INCUBATION TO CONTINUE FOR 1 DAYS. 08/07/17 19:30 Urine - Urine Clean Catch Urine Culture - Final Contaminated: Please Repeat IMAGING kidney and bladder ultrasound: no hydronephrosis, mild atrophic kidney, small post void residual chest xray: no infilitrates no effusions noted HOSPITAL COURSE: * UTI, failed outpatient with Doxycycline x3 days, first urine culture contaminated, second urine culture less than 10k, patient was treated with rocephin (08/08-08/12) transition to keflex. WBC trending down, patient is afebrile * metabolic encephalopathy, secondary to hyponatremia vs uti, patient is at baseline * Hyponatremia- improved, Likely secondary to hypovolemia vs thiazide, serum sodium improved. Dr Spears, nephrology consulted and followed. * hypertension, Losartan, Coreg and Norvasc, continued, blood pressure remained at goal. HCTZ held secondary to hyponatremia * DM- fingersticks mildly elevated, BGM ACHS, ISS ACHS, Continued Metformin and Levemir 20u sq HS (home dose) * Hypothyroidism, Continued Synthroid, TSH wnl * Macrocytic anemia, CBC stable, Vitamin B12,Folate elevated, stool OB negative PLAN - discharge to SNF for short term rehab - discharge on keflex - followup with PCP, Dr Salinas within 2 weeks Date of Admission:08/08/17 Date of Discharge: 08/12/17 Minutes to complete discharge: 45 Discharge Summary Reason For Visit: HYPONATREMIA,LETHARGIC Current Active Problems Anemia (Acute) DVT prophylaxis (Acute) GERD (gastroesophageal reflux disease) (Acute) History of CVA with residual deficit (Acute) Hyponatremia (Acute) Hypothyroid (Acute) Lethargy (Acute) UTI (urinary tract infection) (Acute) Condition: Improved - Instructions Diet, Activity, Other Instructions: continue keflex daily for 7 days your triamterene/hctz was discontinued due to your low sodium levels continue all medications as prescribed if any new or persistent symptoms develop please return to the emergency department please follow up with your primary care physician Dr Salinas within 2 weeks Referrals: Shaq Salinas MD [Staff Physician] - Disposition: [facility] - Home Medications Comprehensive Discharge Medication List: Ambulatory Orders Ascorbic Acid [Vitamin C] 1,000 mg PO BID tablet 07/08/13 Cholecalciferol (Vitamin D3) [Vitamin D3] 1,000 unit PO DAILY tablet 07/08/13 Cranberry 1 tab PO BID 06/08/14 Multivitamins [Multivit ([facility] Formulary)] 1 tab PO DAILY 06/10/14 Aspirin [ASA -] 81 mg PO DAILY #0 06/14/14 Letrozole 2.5 mg PO DAILY 30 Days tablet 11/11/14 Doxycycline Hyclate 100 mg PO BID 08/07/17 Famotidine [Pepcid] 20 mg PO DAILY 08/07/17 This patient is new to me today: No Emergency Visit: Yes ED Registration Date: 08/08/17 Care time: The patient presented to the Emergency Department on the above date and was hospitalized for further evaluation of their emergent condition. Critical Care patient: No - Discharge Referral Referred to [facility] Med P.C.: No
[2017-08-12] MEDS: CEFTRIAXONE 1 G/50 ML PREMIX 50 ML IVPB SCH (09:23)
[2017-08-12] MEDS: CARVEDILOL 25 MG TABLET (FP) PO SCH (09:24)
[2017-08-12] MEDS: LOSARTAN POTASSIUM 50 MG TABLET (FP) PO SCH (09:24)
[2017-08-12] MEDS: ASCORBIC ACID 500 MG TABLET (FP) PO SCH (09:24)
[2017-08-12] MEDS: CHOLECALCIFEROL (VITAMIN D3) 1,000 UNIT TABLET (FP) PO SCH (09:24)
[2017-08-12] MEDS: HEPARIN NA (PORCINE) 5,000 UNITS/ML 1ML VIAL SQ SCH (09:24)
[2017-08-12] MEDS: MULTIVITAMINS (DAILY MVI) TABLET (FP) PO SCH (09:24)
[2017-08-12] MEDS: FAMOTIDINE 20 MG TABLET PO SCH (09:24)
[2017-08-12] MEDS: amLODIPine BESYLATE 10 MG TABLET (FP) PO SCH (09:24)
[2017-08-12] MEDS ORDERED: LACTOBACILLUS ACIDOPHILUS 1 TABLET PO SCH (10:00)
[2017-08-12] MEDS ORDERED: INSULIN (NOVOLOG) ASPART 100 UNITS/ML 10ML VIAL ONE (11:17)
== END 2017-08-12 13:50 | DRG 689 ==
LOC: FER 16:37 → OBSVTOIN 20:24 → INTOOBSV 20:24 → FM/S 20:24 → OBSVTOIN 08-08 17:43
PROVIDERS: ADMIT Internal Medicine; ATTEND Nurse Practitioner Family
DX: N39.0 Urinary tract infection, site not specified (principal); G93.41 Metabolic encephalopathy; I69.354 Hemiplegia and hemiparesis following cerebral infarction affecting left non-dominant side; E87.1 Hypo-osmolality and hyponatremia; G61.0 Guillain-Barre syndrome; C94.6 Myelodysplastic disease, not elsewhere classified; I10 Essential (primary) hypertension; E78.00 Pure hypercholesterolemia, unspecified; E03.9 Hypothyroidism, unspecified; K21.9 Gastro-esophageal reflux disease without esophagitis; J45.909 Unspecified asthma, uncomplicated; R53.83 Other fatigue; D64.9 Anemia, unspecified; E86.1 Hypovolemia; E11.42 Type 2 diabetes mellitus with diabetic polyneuropathy; E86.0 Dehydration; Z85.3 Personal history of malignant neoplasm of breast; Z86.12 Personal history of poliomyelitis
CPT/HCPCS: 36415; 71045-TC-FY; 76775-TC; 76856-TC; 80048; 80053; 81003; 81015; 82272; 82550; 82570; 82607; 82728; 82746; 82962; 83036; 83540; 83550; 83605; 83735; 83930; 83935; 84100; 84156; 84300; 84436; 84443; 84484; 84550; 85025; 85027; 85044; 85610; 87040; 87086; 93005; 97116-GP; 97162-GP; 99284-25; G0378; J1644

== ENCOUNTER 2018-06-23 22:50 | Observation (INO) | payer OTHER, MEDICARE ==
--- NOTE | 2018-06-23 22:57 | PDOC ---
History of Present Illness - General Chief Complaint: Weakness Stated Complaint: WEAKNESS ON STANDING Time Seen by Provider: 06/23/18 22:54 History Source: Patient Exam Limitations: No Limitations - History of Present Illness Initial Comments: 06/23/18 23:02 This is an 88-year-old female brought in by EMS for evaluation of generalized weakness. Patient said she was getting ready to go to bed when all of a sudden she became so weak that she was unable to stand or ambulate. Patient said she fell back on the bed and wasn't able to get up again because she was so weak. Patient said she did not pass out. Patient denies any chest pain, shortness of breath, nausea, diaphoresis, headache, dizziness, vertigo or any other complaints. Patient just complains of generalized total body weakness. Patient also admits to some bright red blood per rectum earlier in the day. Pt describes it as a small amount with a BM and denies any recently and said that she is supposed to see a payroll services analyst for stage IV kidney disease. Allergies: as per nursing notes Past Medical History: none Social history: Lives with family. No smoking. No alcohol. No illicit drugs. Surgical history: None General: No fevers or chills, no weakness, no weight loss , generalized weakness HEENT: No change in vision. No sore throat,. No ear pain CardioVascular: no chest discomfort. No shortness of breath Respiratory:No cough, or wheezing. Gastrointestinal: no nausea, vomiting, diarrhea or constipation, No rectal bleeding Genitourinary: No dysuria, hematuria, or frequency Musculoskeletal: No joint or muscle pain or swelling Neurologic: No headache, vertigo, dizziness or loss of consciousness Psychiatric: nor depression Skin: No rashes or easy bruising Endocrine: no increased thirst or abnormal weight change Allergic: no skin or latex allergy All other systems reviewed and normal Exam: General: Well-nourished well-developed individual, no acute distress HEENT: Throat: Normal, tonsils normal, no erythema or exudate, conjunctiva pale Neck: Supple, no meningeal signs, no lymphadenopathy Eyes::Pupils equal reactive and round, extraocular motion intact Chest: Nontender to palpation Cardiac: S1-S2 normal, regular rate and rhythm, no murmurs rubs or gallops Respiratory: Lungs clear to auscultation bilateral Abdomen: Soft, nondistended, normal bowel sounds, there is no tenderness on palpation diffusely Rectal, brown stool, no gross blood Extremities: Warm, dry, no cyanosis, clubbing, or edema Skin: No rashes Neuro: Alert and oriented x3, CN II - XII intact, nonfocal exam with normal strength, normal sensation, normal reflexes, normal gait, Psych: Normal mood and affect 06/23/18 23:15 Assessment and plan: This is an 88-year-old female who comes in via EMS for evaluation of generalized weakness. Patient was too weak to ambulate times this evening. Workup initiated in the ED including CBC, comp, chest x-ray, and urinalysis. 06/24/18 00:21 Patient's hemoglobin is 9.4 which is approximately 1 g drop from prior back in February 14 0.1. Patient is a little hyponatremic sodium 127 Patient's review kidney function is worsening symptoms prior studies with a creatinine of 1.5 Patient still exhibits generalized weakness and will be placed in observation bed 01:00 Discussed admission with hospitalist Signout given to the admitting hospitalist, who accepts the patient. Discussed plan with the patient family at bedside, Patient and family aware of the plan and agree. Patient is clinically unchanged and stable. Past History - Past Medical History Allergies/Adverse Reactions: Allergies Allergy/AdvReac Type Severity Reaction Status Date / Time NSAIDS (Non-Steroidal Allergy Severe Difficulty Verified 08/07/17 16:42 Anti-Inflamma Breathing ibuprofen Allergy Intermediate Rash Verified 08/07/17 16:42 meloxicam [From Mobic] Allergy Intermediate Rash Verified 08/07/17 16:42 rosiglitazone maleate Allergy Verified 08/07/17 16:42 [From Avandia] albuterol AdvReac Intermediate Elevated Verified 08/07/17 16:42 Blood Pressure epinephrine AdvReac Intermediate Elevated Verified 08/07/17 16:42 Blood Pressure oxycodone HCl [From Percodan] AdvReac Intermediate Elevated Verified 08/07/17 16 :42 Blood Pressure oxycodone terephthalate AdvReac Intermediate Elevated Verified 08/07/17 16:42 [From Percodan] Blood Pressure flu shot AdvReac Severe GILLAIN Uncoded 07/27/14 19:22 BARRE SY[employer]OME Home Medications: Ambulatory Orders Multivitamins [Multivit ([facility] Formulary)] 1 tab PO DAILY 06/10/14 Aspirin [ASA -] 81 mg PO DAILY #0 06/14/14 Amlodipine Besylate 5 mg PO DAILY 06/23/18 Calcium Carbonate/Vitamin D3 [Calcium 500 + Vit D3 400 Tab] 1 each PO DAILY Carvedilol [Coreg -] 12.5 mg PO BID 06/23/18 Cholecalciferol (Vitamin D3) [Vitamin D3 -] 400 unit PO DAILY 06/23/18 Glipizide 5 mg PO DAILY 06/23/18 Triamterene/Hydrochlorothiazid [Triamterene-Hctz 37.5-25 mg Cp] 1 each PO DAILY 06/23/18 Valsartan 320 mg PO DAILY 06/23/18 metFORMIN XR [Glucophage *Xr* -] 500 mg PO DAILY 06/23/18 Anemia: Yes (MILD-HIGH WBC X 20 YRS) Asthma: Yes (YRS AGO-STABLE NO MEDS) Cancer: Yes (LEFT BREAST-DX 07/2013) Cardiac Disorders: No 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) COPD: No CHF: No Dementia: No Diabetes: Yes (DX 1962) GI Disorders: Yes (ACID REFLUX) Disorders: Yes (FREQUENT UTI'S-LAST 2012-HOSPITALIZED) HTN: Yes (HX OF 40 YRS) Hypercholesterolemia: No Liver Disease: No Seizures: No Thyroid Disease: Yes (HYPOTHYROIDISM-DX 1949') - Surgical History Abdominal Surgery: Yes (UNBILICAL HERNIA REPAIR-2008) Appendectomy: No Cardiac Surgery: No Cholecystectomy: No Lung Surgery: No Neurologic Surgery: No Orthopedic Surgery: No - Suicide/Smoking/Psychosocial Hx Smoking Status: No Smoking History: Never smoked Have you smoked in the past 12 months: No Number of Cigarettes Smoked Daily: 0 Hx Alcohol Use: No Drug/Substance Use Hx: No Substance Use Type: None Hx Substance Use Treatment: No ED Treatment Course - LABORATORY CBC & Chemistry Diagram: 06/23/18 23:10 06/23/18 23:10 *DC/Admit/Observation/Transfer Diagnosis at time of Disposition: Hyponatremia, Renal disease Anemia Qualifiers: Anemia type: unspecified type Qualified Code(s): D64.9 - Anemia, unspecified - Discharge Dispostion Condition at time of disposition: Stable Decision to Admit order: Yes - Referrals - Patient Instructions - Post Discharge Activity
[2018-06-23 23:27] LABS: BASO % 0.4 % (0-2.0); EOS % 5.4 % (0-4.5); HEMATOCRIT 28.6 % (32.4-45.2); HEMOGLOBIN 9.4 GM/dl (10.7-15.3); LYMPH % 12.8 % (8-40); MCHC 32.7 g/dl (32.0-36.0); MEAN CELL VOLUME 104.2 fl (80-96); MEAN PLT VOLUME 6.9 fl (7.5-11.1); MONO % 9.1 % (3.8-10.2); NEUT % 72.3 % (42.8-82.8); PLATELET COUNT 311 K/MM3 (134-434); RBC 2.75 M/mm3 (3.60-5.2); RDW 16.3 % (11.6-15.6); WHITE BLOOD COUNT 13.8 K/mm3 (4.0-10.8)
[2018-06-23 23:33] LABS: PH,URINE 6.5 (4.5-8); URINE APPEARANCE CLEAR; URINE BILIRUBIN NEGATIVE (NEGATIVE); URINE COLOR YELLOW; URINE GLUCOSE (UA) NEGATIVE (NEGATIVE); URINE KETONE NEGATIVE (NEGATIVE); URINE PROTEIN 2+ (NEGATIVE)
[2018-06-23 23:34] LABS: URINE LEUK ESTERASE NEGATIVE (NEGATIVE); URINE NITRITE NEGATIVE (NEGATIVE); URINE UROBILINOGEN 0.2 (0.2-1.0)
[2018-06-23 23:36] LABS: URINE WBC 0-2 (0-5)
[2018-06-23 23:37] LABS: URINE BACTERIA 2+ /hpf (NEGATIVE)
[2018-06-23 23:42] LABS: ALBUMIN 3.5 g/dl (3.4-5.0); ALK PHOS 76 U/L (45-117); ANION GAP 7 MMOL/L (8-16); BILIRUBIN,TOTAL 0.9 mg/dl (0.2-1); BLOOD UREA NITROGEN 52 mg/dl (7-18); CALCIUM 8.2 mg/dl (8.5-10); CHLORIDE 98 mmol/L (98-107); CO2 22 mmol/L (21-32); CREATININE 1.5 mg/dl (0.55-1.3); GLUCOSE,RANDOM 252 mg/dl (74-106); POTASSIUM 4.2 mmol/L (3.5-5.1); SGOT/AST 23 U/L (15-37); SGPT/ALT 16 U/L (13-61); SODIUM 127 mmol/L (136-145); TOT PROT 6.6 g/dl (6.4-8.2)
[2018-06-24] MEDS ORDERED: SODIUM CHLORIDE 250 ML IV STA (00:43)
[2018-06-24] MEDS: LEVOTHYROXINE NA 100 MCG TABLET (FP) PO SCH (06:42)
[2018-06-24] MEDS ORDERED: INSULIN (NOVOLOG) ASPART 100 UNITS/ML 10ML VIAL ONE ×4 (07:22→21:44)
[2018-06-24] MEDS: INSULIN SLIDING SCALE (NOVOLOG) 1 VIAL SQ SCH ×4 (07:23→22:05)
[2018-06-24 08:25] LABS: BASO % 1.2 % (0-2.0); EOS % 5.7 % (0-4.5); HEMATOCRIT 26.8 % (32.4-45.2); HEMOGLOBIN 8.8 GM/dl (10.7-15.3); LYMPH % 14.3 % (8-40); MCH 33.8 pg (25.7-33.7); MCHC 32.7 g/dl (32.0-36.0); MEAN CELL VOLUME 103.5 fl (80-96); MEAN PLT VOLUME 6.6 fl (7.5-11.1); MONO % 10.8 % (3.8-10.2); PLATELET COUNT 310 K/MM3 (134-434); RBC 2.59 M/mm3 (3.60-5.2); RDW 16.7 % (11.6-15.6); WHITE BLOOD COUNT 12.4 K/mm3 (4.0-10.8)
[2018-06-24 08:36] LABS: ANION GAP 5 MMOL/L (8-16); BLOOD UREA NITROGEN 48 mg/dl (7-18); CALCIUM 8.3 mg/dl (8.5-10); CHLORIDE 106 mmol/L (98-107); CO2 21 mmol/L (21-32); CREATININE 1.3 mg/dl (0.55-1.3); GLUCOSE,RANDOM 193 mg/dl (74-106); MAGNESIUM 3.1 mg/dL (1.8-2.4); POTASSIUM 4.2 mmol/L (3.5-5.1); SODIUM 132 mmol/L (136-145)
--- NOTE | 2018-06-24 09:48 | HP ---
CHIEF COMPLAINT: Generalized weakness PCP: Dr. Salinas HISTORY OF PRESENT ILLNESS: 88 year-old female with a PMH significant for HTN, IDDM, CKD, left breast CA, GERD, recurrent UTIs, and hypothyroidism. Patient said she was getting ready to go to bed when all of a sudden she became so weak that she was unable to stand or ambulate. Patient said she fell back on the bed and wasn't able to get up again because she was so weak. Patient said she did not pass out. Patient denies any chest pain, shortness of breath, nausea, diaphoresis, headache, dizziness, vertigo or any other complaints. Patient just complains of generalized total body weakness. Patient also admits to some bright red blood per rectum earlier in the day. Pt describes it as a small amount with a BM and denies any recently and said that she is supposed to see a tannery gummer for stage IV kidney disease. ER course was notable for: (1) BP 184/66 (2) Na 127 (3) BUN/Cr 52/1.5 (4) Hgb 9.4 Recent Travel: No PAST MEDICAL HISTORY: Hypertension IDDM Chronic kidney disease Left breast cancer GERD Recurrent UTIs Hypothyroidism PAST SURGICAL HISTORY: Left breast lumpectomy (2014) Social History: Smoking: never Alcohol: occasional Drugs: no Family History: Allergies NSAIDS (Non-Steroidal Anti-Inflamma Allergy (Severe, Verified 08/07/17 16:42) Difficulty Breathing ibuprofen Allergy (Intermediate, Verified 08/07/17 16:42) Rash meloxicam [From Mobic] Allergy (Intermediate, Verified 08/07/17 16:42) Rash all to all n-saids ? except Asprin rosiglitazone maleate [From Avandia] Allergy (Verified 08/07/17 16:42) albuterol Adverse Reaction (Intermediate, Verified 08/07/17 16:42) Elevated Blood Pressure ELEVATED SUGAR/ELEVATED TEMP epinephrine Adverse Reaction (Intermediate, Verified 08/07/17 16:42) Elevated Blood Pressure ELEVATED SUGAR/TEMP oxycodone HCl [From Percodan] Adverse Reaction (Intermediate, Verified 08/07/17 16:42) Elevated Blood Pressure ELEVATED SUGAR/ELEVATED TEMP oxycodone terephthalate [From Percodan] Adverse Reaction (Intermediate, Verified 08/07/17 16:42) Elevated Blood Pressure ELEVATED TEMP/SUGAR flu shot Adverse Reaction (Severe, Uncoded 07/27/14 19:22) [employer] Home Medications Medication Instructions Recorded Multivitamins [Multivit ([facility] 1 tab PO DAILY 06/10/14 Formulary)] Aspirin [ASA -] 81 mg PO DAILY #0 06/14/14 Amlodipine Besylate 5 mg PO DAILY 06/23/18 Calcium Carbonate/Vitamin D3 1 each PO DAILY 06/23/18 [Calcium 500 + Vit D3 400 Tab] Carvedilol [Coreg -] 25 mg PO BID 06/23/18 Cholecalciferol (Vitamin D3) 400 unit PO DAILY 06/23/18 [Vitamin D3 -] Famotidine [Pepcid] 40 mg PO DAILY 06/24/18 Furosemide [Lasix -] 40 mg PO DAILY 06/24/18 Letrozole 2.5 mg PO DAILY 06/24/18 Losartan Potassium 100 mg PO DAILY 06/24/18 Potassium Chloride [Klor-Con M20] 20 meq PO DAILY 06/24/18 Tramadol HCl 50 mg PO TID PRN 06/24/18 REVIEW OF SYSTEMS CONSTITUTIONAL: +generalized weakness Absent: fever, chills, diaphoresis, generalized weakness, malaise, loss of appetite, weight change HEENT: Absent: rhinorrhea, nasal congestion, throat pain, throat swelling, difficulty swallowing, mouth swelling, ear pain, eye pain, visual changes CARDIOVASCULAR: Absent: chest pain, syncope, palpitations, irregular heart rate, lightheadedness , peripheral edema RESPIRATORY: Absent: cough, shortness of breath, dyspnea with exertion, orthopnea, wheezing, stridor, hemoptysis GASTROINTESTINAL: +BRBPR Absent: abdominal pain, abdominal distension, nausea, vomiting, diarrhea, constipation, melena, hematochezia GENITOURINARY: Absent: dysuria, frequency, urgency, hesitancy, hematuria, flank pain, genital pain MUSCULOSKELETAL: Absent: myalgia, arthralgia, joint swelling, back pain, neck pain SKIN: Absent: rash, itching, pallor HEMATOLOGIC/IMMUNOLOGIC: Absent: easy bleeding, easy bruising, lymphadenopathy, frequent infections ENDOCRINE: Absent: unexplained weight gain, unexplained weight loss, heat intolerance, cold intolerance NEUROLOGIC: Absent: headache, focal weakness or paresthesias, dizziness, unsteady gait, seizure, mental status changes, bladder or bowel incontinence PSYCHIATRIC: Absent: anxiety, depression, suicidal or homicidal ideation, hallucinations. PHYSICAL EXAMINATION Vital Signs - 24 hr 06/23/18 06/24/18 06/24/18 22:56 01:11 04:23 Temperature 97.4 F L 98.4 F Pulse Rate 73 Pulse Rate [ 73 72 Apical] Respiratory 18 14 18 Rate Blood Pressure 134/73 Blood Pressure 175/88 H 148/65 [Left Arm] Blood Pressure [Right Arm] O2 Sat by Pulse 100 99 96 Oximetry (%) 06/24/18 06/24/18 06/24/18 06:30 07:27 08:57 Temperature 98.4 F Pulse Rate Pulse Rate [ 69 70 75 Apical] Respiratory 14 16 Rate Blood Pressure Blood Pressure [Left Arm] Blood Pressure 148/54 L 157/76 141/50 L [Right Arm] O2 Sat by Pulse 97 99 100 Oximetry (%) GENERAL: Awake, alert, and fully oriented. LUNGS: Breath sounds equal, clear to auscultation bilaterally. No wheezes, and no crackles. No accessory muscle use. HEART: Regular rate and rhythm, S1 and S2 ABDOMEN: Soft, nontender, not distended, normoactive bowel sounds, no guarding, no rebound tenderness UPPER EXTREMITIES: 2+ pulses, warm, well-perfused. No cyanosis. No clubbing. No peripheral edema. LOWER EXTREMITIES: 2+ pulses, warm, well-perfused. No calf tenderness. No peripheral edema. NEUROLOGICAL: Cranial nerves II-XII intact. Normal speech. SKIN: Warm, dry, normal turgor Laboratory Results - last 24 hr 06/23/18 06/23/18 06/23/18 23:03 23:10 23:10 WBC 13.8 H RBC 2.75 L Hgb 9.4 L Hct 28.6 L MCV 104.2 H MCH 34.0 H MCHC 32.7 RDW 16.3 H Plt Count 311 MPV 6.9 L Absolute Neuts (auto) 9.9 Neutrophils % 72.3 Lymphocytes % 12.8 Monocytes % 9.1 Eosinophils % 5.4 H Basophils % 0.4 Sodium 127 L Potassium 4.2 Chloride 98 Carbon Dioxide 22 Anion Gap 7 L BUN 52 H Creatinine 1.5 H Creat Clearance w eGFR 32.77 POC Glucometer 225 Random Glucose 252 H Calcium 8.2 L Phosphorus Magnesium Total Bilirubin 0.9 AST 23 ALT 16 Alkaline Phosphatase 76 Creatine Kinase Troponin I Total Protein 6.6 Albumin 3.5 Urine Color Urine Appearance Urine pH Ur Specific [place] Urine Protein Urine Glucose (UA) Urine Ketones Urine Blood Urine Nitrite Urine Bilirubin Urine Urobilinogen Ur Leukocyte Esterase Urine RBC Urine WBC Urine Bacteria Ur Random Sodium Ur Random Potassium Ur Random Chloride Stool Occult Blood Blood Type Antibody Screen 06/23/18 06/23/18 06/23/18 23:10 23:10 23:25 WBC RBC Hgb Hct MCV MCH MCHC RDW Plt Count MPV Absolute Neuts (auto) Neutrophils % Lymphocytes % Monocytes % Eosinophils % Basophils % Sodium Potassium Chloride Carbon Dioxide Anion Gap BUN Creatinine Creat Clearance w eGFR POC Glucometer Random Glucose Calcium Phosphorus Magnesium Total Bilirubin AST ALT Alkaline Phosphatase Creatine Kinase 44 Troponin I < 0.03 Total Protein Albumin Urine Color Yellow Urine Appearance Clear Urine pH 6.5 Ur Specific [place] 1.015 Urine Protein 2+ H Urine Glucose (UA) Negative Urine Ketones Negative Urine Blood 2+ H Urine Nitrite Negative Urine Bilirubin Negative Urine Urobilinogen 0.2 Ur Leukocyte Esterase Negative Urine RBC 2-5 Urine WBC 0-2 Urine Bacteria 2+ Ur Random Sodium Ur Random Potassium Ur Random Chloride Stool Occult Blood Blood Type Antibody Screen 06/23/18 06/23/18 06/24/18 23:35 23:40 02:00 WBC RBC Hgb Hct MCV MCH MCHC RDW Plt Count MPV Absolute Neuts (auto) Neutrophils % Lymphocytes % Monocytes % Eosinophils % Basophils % Sodium Potassium Chloride Carbon Dioxide Anion Gap BUN Creatinine Creat Clearance w eGFR POC Glucometer Random Glucose Calcium Phosphorus Magnesium Total Bilirubin AST ALT Alkaline Phosphatase Creatine Kinase Troponin I Total Protein Albumin Urine Color Urine Appearance Urine pH Ur Specific [place] Urine Protein Urine Glucose (UA) Urine Ketones Urine Blood Urine Nitrite Urine Bilirubin Urine Urobilinogen Ur Leukocyte Esterase Urine RBC Urine WBC Urine Bacteria Ur Random Sodium 50 Ur Random Potassium 16.0 L Ur Random Chloride 50 L Stool Occult Blood Trace Blood Type O NEGATIVE Antibody Screen Negative 06/24/18 06/24/18 06/24/18 06:30 06:30 07:20 WBC 12.4 H RBC 2.59 L Hgb 8.8 L Hct 26.8 L MCV 103.5 H MCH 33.8 H MCHC 32.7 RDW 16.7 H Plt Count 310 MPV 6.6 L Absolute Neuts (auto) 8.5 Neutrophils % 68.0 Lymphocytes % 14.3 Monocytes % 10.8 H Eosinophils % 5.7 H Basophils % 1.2 Sodium 132 L Potassium 4.2 Chloride 106 Carbon Dioxide 21 Anion Gap 5 L BUN 48 H Creatinine 1.3 Creat Clearance w eGFR 38.66 POC Glucometer 164 Random Glucose 193 H Calcium 8.3 L Phosphorus 4.0 Magnesium 3.1 H Total Bilirubin AST ALT Alkaline Phosphatase Creatine Kinase Troponin I Total Protein Albumin Urine Color Urine Appearance Urine pH Ur Specific [place] Urine Protein Urine Glucose (UA) Urine Ketones Urine Blood Urine Nitrite Urine Bilirubin Urine Urobilinogen Ur Leukocyte Esterase Urine RBC Urine WBC Urine Bacteria Ur Random Sodium Ur Random Potassium Ur Random Chloride Stool Occult Blood Blood Type Antibody Screen Medication Instructions Recorded Multivitamins [Multivit ([facility] 1 tab PO DAILY 06/10/14 Formulary)] Aspirin [ASA -] 81 mg PO DAILY #0 06/14/14 Amlodipine Besylate 5 mg PO DAILY 06/23/18 Calcium Carbonate/Vitamin D3 1 each PO DAILY 06/23/18 [Calcium 500 + Vit D3 400 Tab] Carvedilol [Coreg -] 25 mg PO BID 06/23/18 Cholecalciferol (Vitamin D3) 400 unit PO DAILY 06/23/18 [Vitamin D3 -] Famotidine [Pepcid] 40 mg PO DAILY 06/24/18 Furosemide [Lasix -] 40 mg PO DAILY 06/24/18 Letrozole 2.5 mg PO DAILY 06/24/18 Losartan Potassium 100 mg PO DAILY 06/24/18 Potassium Chloride [Klor-Con M20] 20 meq PO DAILY 06/24/18 Tramadol HCl 50 mg PO TID PRN 06/24/18 ASSESSMENT/PLAN 88 year-old female with a PMH significant for HTN, IDDM, CKD, left breast CA, GERD, recurrent UTIs, and hypothyroidism. Placed on observation for generalized weakness. Generalized weakness --afebrile, leukocytosis is baseline; per PCP Dr. Salinas leukocytosis is due to chronic leukemia, stable --CXR clear; UA negative; low suspicion for infectious etiology --mildly hyponatremic; no significant electrolyte imbalances Hyponatremia, improved --IV fluids in ED --Na improved 127-->132 Anemia --Hgb 9.4 in ED, 8.8 today; will repeat cbc in 12 hours Hypertension --continue losartan, amlodipine, carvedilol, Lasix IDDM --Novolog sliding scale coverage Chronic kidney disease --had appointment today with Dr. Hakeem Niño --Cr 1.5 in ED -->1.3 Left breast cancer --stable GERD --protonix Hypothyroidism --continue levothyroxine Rectal bleeding --reports scant BRBPR x 1 day --GI consult requested DVT prophylaxis: subq heparin Dispo: Patient requires continued observation. Full code. Visit type - Emergency Visit Emergency Visit: Yes ED Registration Date: 06/24/18 Care time: The patient presented to the Emergency Department on the above date and was hospitalized for further evaluation of their emergent condition. - New Patient This patient is new to me today: Yes Date on this admission: 06/25/18 - Critical Care Critical Care patient: No
[2018-06-24] MEDS ORDERED: CHOLECALCIFEROL (VIT D3) 400 UNIT (10 MCG) TABLET PO SCH (10:00)
[2018-06-24] MEDS ORDERED: PATIENT'S OWN MEDICATION (NON-FORMULARY) (Valsartan [Valsartan] 320 MG) PO SCH (10:00)
[2018-06-24] MEDS ORDERED: MULTIVITAMINS (DAILY MVI) TABLET (FP) PO SCH (10:00)
[2018-06-24] MEDS ORDERED: CARVEDILOL 12.5 MG TABLET (FP) PO SCH ×2 (10:00→22:00)
[2018-06-24] MEDS ORDERED: VALSARTAN 160 MG TABLET (UD) PO SCH (10:00)
[2018-06-24] MEDS ORDERED: TRIAMTERENE AND HCTZ - 37.5 MG/25 MG CAPSULE PO SCH (11:00)
[2018-06-24 11:42] VITALS: BMI 32.4
[2018-06-24] MEDS: amLODIPine BESYLATE 5 MG TABLET (FP) PO SCH (11:45)
--- NOTE | 2018-06-24 12:09 | EKG ---
Test Reason : Blood Pressure : / mmHG Vent. Rate : 074 BPM Atrial Rate : 074 BPM P-R Int : 200 ms QRS Dur : 116 ms QT Int : 416 ms P-R-T Axes : 041 -32 049 degrees QTc Int : 461 ms NORMAL SINUS RHYTHM LEFT AXIS DEVIATION INCOMPLETE LEFT BUNDLE BRANCH BLOCK ABNORMAL ECG WHEN COMPARED WITH ECG OF 07-AUG-2017 17:29, FUSION COMPLEXES ARE NO LONGER PRESENT INCOMPLETE LEFT BUNDLE BRANCH BLOCK HAS REPLACED INCOMPLETE RIGHT BUNDLE BRANCH BLOCK CRITERIA FOR SEPTAL INFARCT ARE NO LONGER PRESENT Confirmed by ADOLFO GODWIN, PROSPER ([id number]) on 06/24/2018 12:08:39 PM Referred By: DR DAMON Confirmed By:PROSPER MATA MD
[2018-06-24] MEDS: FUROSEMIDE 40 MG TABLET (FP) PO SCH (15:44)
[2018-06-24] MEDS: PANTOPRAZOLE 40 MG TABLET (FP) PO SCH (15:44)
[2018-06-24 18:16] LABS: HEMATOCRIT 27.8 % (32.4-45.2); MCH 33.7 pg (25.7-33.7); MCHC 32.4 g/dl (32.0-36.0); MEAN PLT VOLUME 6.4 fl (7.5-11.1); PLATELET COUNT 309 K/MM3 (134-434); RBC 2.67 M/mm3 (3.60-5.2); RDW 16.1 % (11.6-15.6); WHITE BLOOD COUNT 13.1 K/mm3 (4.0-10.8)
[2018-06-24] MEDS: CARVEDILOL 25 MG TABLET (FP) PO SCH (21:39)
[2018-06-25] MEDS: INSULIN SLIDING SCALE (NOVOLOG) 1 VIAL SQ SCH ×4 (06:45→21:58)
[2018-06-25] MEDS: LEVOTHYROXINE NA 100 MCG TABLET (FP) PO SCH (06:45)
[2018-06-25 08:14] LABS: BASO % 1.4 % (0-2.0); EOS % 5.1 % (0-4.5); HEMATOCRIT 28.3 % (32.4-45.2); HEMOGLOBIN 9.3 GM/dl (10.7-15.3); MCH 34.6 pg (25.7-33.7); MCHC 32.9 g/dl (32.0-36.0); MEAN CELL VOLUME 105.1 fl (80-96); MEAN PLT VOLUME 6.7 fl (7.5-11.1); MONO % 9.9 % (3.8-10.2); NEUT % 70.6 % (42.8-82.8); PLATELET COUNT 293 K/MM3 (134-434); RBC 2.69 M/mm3 (3.60-5.2); RDW 16.1 % (11.6-15.6); WHITE BLOOD COUNT 14.3 K/mm3 (4.0-10.8)
[2018-06-25 08:23] LABS: ALBUMIN 3.2 g/dl (3.4-5.0); ALK PHOS 60 U/L (45-117); ANION GAP 7 MMOL/L (8-16); BILIRUBIN,TOTAL 0.6 mg/dl (0.2-1); BLOOD UREA NITROGEN 34 mg/dl (7-18); CALCIUM 8.4 mg/dl (8.5-10); CHLORIDE 103 mmol/L (98-107); CO2 23 mmol/L (21-32); CREATININE 1.2 mg/dl (0.55-1.3); GLUCOSE,RANDOM 176 mg/dl (74-106); MAGNESIUM 2.6 mg/dL (1.8-2.4); PHOSPHOROUS 3.5 mg/dl (2.5-4.9); POTASSIUM 4.1 mmol/L (3.5-5.1); SGOT/AST 18 U/L (15-37); SGPT/ALT 14 U/L (13-61); SODIUM 133 mmol/L (136-145); TOT PROT 6.1 g/dl (6.4-8.2)
[2018-06-25] MEDS: CARVEDILOL 25 MG TABLET (FP) PO SCH ×2 (10:19→21:54)
[2018-06-25] MEDS: LOSARTAN POTASSIUM 50 MG TABLET (FP) PO SCH (10:20)
[2018-06-25] MEDS: FUROSEMIDE 40 MG TABLET (FP) PO SCH (10:20)
[2018-06-25] MEDS: LETROZOLE 2.5 MG TABLET (FP) PO SCH (10:20)
[2018-06-25] MEDS: amLODIPine BESYLATE 5 MG TABLET (FP) PO SCH (10:20)
[2018-06-25] MEDS: PANTOPRAZOLE 40 MG TABLET (FP) PO SCH (10:21)
--- NOTE | 2018-06-25 12:06 | CONS ---
DATE OF CONSULTATION: 06/24/2018 HISTORY OF PRESENT ILLNESS: The patient is a 88-year-old female with multiple medical problems including history of breast cancer, TIAs in the past, diabetes, hypertension, hyperlipidemia, CAD, who was brought in to the hospital by EMS for generalized weakness. Apparently she was getting ready to go to bed when all of a sudden, she became very weak and was unable to stand or ambulate. She fell back on the bed and was unable to get up again secondary to weakness. She denied actual syncope or dizziness. Apparently she had a small bowel movement traced with some blood earlier in the day and also admits to a few more episodes earlier in the day yesterday. She denies any melena, nausea, vomiting, abdominal pain, or hematemesis. She has not had previous episodes in the past. She had a colonoscopy but does not recall when it was done. PAST MEDICAL AND SURGICAL: HISTORY: Listed in the HPI. Also frequent UTIs, umbilical hernia repair in 2008, and hypothyroidism. ALLERGIES: She is allergic to NSAIDS. SOCIAL HISTORY: She lives with family. No smoking, drinking, or illicit drug use. FAMILY HISTORY: Noncontributory. HOME MEDICATIONS REVIEWED: Include multivitamin, aspirin, amlodipine, calcium, carvedilol, vitamin D3, glipizide, triamterene, hydrochlorothiazide, valsartan, and metformin. PHYSICAL EXAMINATION: Vital signs: Temperature 98, pulse 75, respiratory rate 12, blood pressure 140/ 50, pulse oximetry 100% on room air. General: In no acute distress. HEENT: Anicteric sclerae. Cardiovascular: S1, S2, regular rate and rhythm. Lungs: Bilaterally clear to auscultation. Abdomen: Soft, nontender. Extremities: No edema. LABORATORIES: White blood cell count 12.4, H and H 8.8/26, hemoglobin 9.4/28, MCV 103, platelet count 310. Sodium 132 (on admission it ws 127), BUN 48, creatinine 1.3, glucose 193. Liver tests are within normal limits. Troponin is negative x1. Urine 2+ protein, 2+ blood. Stool is trace positive for blood. Cultures are pending. Chest x-ray within normal limits. IMPRESSION: Macrocytic anemia with trace positive blood on fecal occult blood testing. I believe she has chronic anemia which is multifactorial in origin - GI blood loss is a contributing factor RECOMMENDATION: Monitor her H and H. Will order a repeat hemoglobin for 6 p.m. tonight. Full liquid diet. Protonix 40 mg IV daily while hospitalized. Would obtain a hematology consultation, and I explained to her that she would benefit from an endoscopic evaluation. This can be done as an outpatient if she were to remain stable. Avoid NSAID. DO TYRA BRANHAM/[id number] MTDD
--- NOTE | 2018-06-25 17:10 | PN ---
Physical Exam: SUBJECTIVE: Patient seen and examined oob to chair. OBJECTIVE: Vital Signs Period Temp Pulse Resp BP Sys/Hernandez Pulse Ox Last 24 Hr 97.6 F-98.9 F 67-77 17-19 132-152/48-61 97-100 GENERAL: Awake, alert, and fully oriented. LUNGS: Breath sounds equal, clear to auscultation bilaterally. No wheezes, and no crackles. No accessory muscle use. HEART: Regular rate and rhythm, S1 and S2 ABDOMEN: Soft, nontender, not distended, normoactive bowel sounds, no guarding, no rebound tenderness UPPER EXTREMITIES: 2+ pulses, warm, well-perfused. No cyanosis. No clubbing. No peripheral edema. LOWER EXTREMITIES: 2+ pulses, warm, well-perfused. No calf tenderness. No peripheral edema. NEUROLOGICAL: Cranial nerves II-XII intact. Normal speech. SKIN: Warm, dry, normal turgor Laboratory Results - last 24 hr 06/24/18 06/24/18 06/25/18 18:00 22:04 06:41 WBC 13.1 H RBC 2.67 L Hgb 9.0 L Hct 27.8 L MCV 104.0 H MCH 33.7 MCHC 32.4 RDW 16.1 H Plt Count 309 MPV 6.4 L Absolute Neuts (auto) Neutrophils % Lymphocytes % Monocytes % Eosinophils % Basophils % Sodium Potassium Chloride Carbon Dioxide Anion Gap BUN Creatinine Creat Clearance w eGFR POC Glucometer 138 165 Random Glucose Calcium Phosphorus Magnesium Total Bilirubin AST ALT Alkaline Phosphatase Total Protein Albumin 06/25/18 06/25/18 06/25/18 07:06 07:06 12:06 WBC 14.3 H RBC 2.69 L Hgb 9.3 L Hct 28.3 L MCV 105.1 H MCH 34.6 H MCHC 32.9 RDW 16.1 H Plt Count 293 MPV 6.7 L Absolute Neuts (auto) 10.1 Neutrophils % 70.6 Lymphocytes % 13.0 Monocytes % 9.9 Eosinophils % 5.1 H Basophils % 1.4 Sodium 133 L Potassium 4.1 Chloride 103 Carbon Dioxide 23 Anion Gap 7 L BUN 34 H Creatinine 1.2 Creat Clearance w eGFR 42.40 POC Glucometer 244 Random Glucose 176 H Calcium 8.4 L Phosphorus 3.5 Magnesium 2.6 H Total Bilirubin 0.6 AST 18 ALT 14 Alkaline Phosphatase 60 D Total Protein 6.1 L Albumin 3.2 L 06/25/18 16:53 WBC RBC Hgb Hct MCV MCH MCHC RDW Plt Count MPV Absolute Neuts (auto) Neutrophils % Lymphocytes % Monocytes % Eosinophils % Basophils % Sodium Potassium Chloride Carbon Dioxide Anion Gap BUN Creatinine Creat Clearance w eGFR POC Glucometer 203 Random Glucose Calcium Phosphorus Magnesium Total Bilirubin AST ALT Alkaline Phosphatase Total Protein Albumin Active Medications Generic Name Dose Route Start Last Admin Trade Name Freq PRN Reason Stop Dose Admin Amlodipine Besylate 5 mg 06/24/18 10:00 06/25/18 10:20 Norvasc - PO 5 mg DAILY AMRIT Administration Carvedilol 25 mg 06/24/18 22:00 06/25/18 10:19 Coreg - PO 25 mg BID AMRIT Administration Furosemide 40 mg 06/24/18 15:00 06/25/18 10:20 Lasix - PO 40 mg DAILY AMRIT Administration Heparin Sodium (Porcine) 5,000 unit 06/25/18 17:00 Heparin - SQ TID AMRIT Insulin Aspart 1 vial 06/24/18 07:00 06/25/18 11:05 Novolog Vial Sliding Scale - SQ 4 units ACHS AMRIT Administration Protocol Insulin Detemir 22 units 06/25/18 22:00 Levemir Vial SQ HS AMRIT Letrozole 2.5 mg 06/25/18 10:00 06/25/18 10:20 Femara - PO 2.5 mg DAILY AMRIT Administration Levothyroxine Sodium 100 mcg 06/24/18 07:00 06/25/18 06:45 Synthroid - PO 100 mcg DAILY@0700 AMRIT Administration Losartan Potassium 100 mg 06/25/18 10:00 06/25/18 10:20 Cozaar - PO 100 mg DAILY AMRIT Administration Pantoprazole Sodium 40 mg 06/24/18 15:00 06/25/18 10:21 Protonix - PO 40 mg DAILY AMRIT Administration ASSESSMENT/PLAN: 88 year-old female with a PMH significant for HTN, IDDM, CKD, left breast CA, GERD, recurrent UTIs, and hypothyroidism. Placed on observation for generalized weakness. Generalized weakness --afebrile, leukocytosis is baseline; per PCP Dr. Salinas leukocytosis is due to chronic leukemia, stable --CXR clear; UA negative; low suspicion for infectious etiology --mildly hyponatremic; no significant electrolyte imbalances Hyponatremia, improved --Na continues to improve, 134 corrected Anemia --Hgb stable Hypertension --BP under better control --continue losartan, amlodipine, carvedilol, Lasix IDDM --Novolog sliding scale coverage --Levemir 22U qhs Chronic kidney disease --Cr 1.5 in ED -->1.2 today Left breast cancer --stable GERD --protonix Hypothyroidism --continue levothyroxine Rectal bleeding --seen and evaluated by GI Dr. Leung; patient may follow as outpatient for an endoscopic evaluation DVT prophylaxis: subq heparin Dispo: Patient requires continued observation. Full code. Visit type - Emergency Visit Emergency Visit: Yes ED Registration Date: 06/24/18 Care time: The patient presented to the Emergency Department on the above date and was hospitalized for further evaluation of their emergent condition. - New Patient This patient is new to me today: No - Critical Care Critical Care patient: No
[2018-06-25] MEDS: HEPARIN NA (PORCINE) 5,000 UNITS/ML 1ML VIAL SQ SCH ×2 (17:21→21:54)
[2018-06-25] MEDS ORDERED: INSULIN (LEVEMIR) 100 UNITS/ML UNITS SQ SCH (22:00)
[2018-06-26 01:48] VITALS: TEMP 98.3
[2018-06-26 06:37] VITALS: BP 130/47; PULSE 69
[2018-06-26] MEDS: INSULIN SLIDING SCALE (NOVOLOG) 1 VIAL SQ SCH (06:44)
[2018-06-26] MEDS: LEVOTHYROXINE NA 100 MCG TABLET (FP) PO SCH (06:44)
[2018-06-26] MEDS: HEPARIN NA (PORCINE) 5,000 UNITS/ML 1ML VIAL SQ SCH (06:44)
--- NOTE | 2018-06-26 08:52 | DS ---
Physical Exam: SUBJECTIVE: Patient seen and examined OBJECTIVE: Vital Signs Period Temp Pulse Resp BP Sys/Hernandez Pulse Ox Last 24 Hr 97.9 F-99.1 F 69-93 18-20 130-150/47-62 97-100 PHYSICAL EXAM GENERAL: The patient is awake, alert, and fully oriented, in no acute distress. HEAD: Normal with no signs of trauma. EYES: PERRL, extraocular movements intact, sclera anicteric, conjunctiva clear. ENT: Ears normal, nares patent, oropharynx clear without exudates, moist mucous membranes. NECK: Trachea midline, full range of motion, supple. LUNGS: Breath sounds equal, clear to auscultation bilaterally, no wheezes, no crackles, no accessory muscle use. HEART: Regular rate and rhythm, S1, S2 without murmur, rub or gallop. ABDOMEN: Soft, nontender, nondistended, normoactive bowel sounds, no guarding, no rebound, no hepatosplenomegaly, no masses. EXTREMITIES: 2+ pulses, warm, well-perfused, no edema. NEUROLOGICAL: Cranial nerves II through XII grossly intact. Normal speech, gait not observed. PSYCH: Normal mood, normal affect. SKIN: Warm, dry, normal turgor, no rashes or lesions noted. LABS CBCD WBC 14.3 K/mm3 (4.0-10.8) H 06/25/18 07:06 RBC 2.69 M/mm3 (3.60-5.2) L 06/25/18 07:06 Hgb 9.3 GM/dl (10.7-15.3) L 06/25/18 07:06 Hct 28.3 % (32.4-45.2) L 06/25/18 07:06 MCV 105.1 fl (80-96) H 06/25/18 07:06 MCHC 32.9 g/dl (32.0-36.0) 06/25/18 07:06 RDW 16.1 % (11.6-15.6) H 06/25/18 07:06 Plt Count 293 K/MM3 (134-434) 06/25/18 07:06 MPV 6.7 fl (7.5-11.1) L 06/25/18 07:06 CMP Sodium 133 mmol/L (136-145) L 06/25/18 07:06 Potassium 4.1 mmol/L (3.5-5.1) 06/25/18 07:06 Chloride 103 mmol/L (98-107) 06/25/18 07:06 Carbon Dioxide 23 mmol/L (21-32) 06/25/18 07:06 Anion Gap 7 MMOL/L (8-16) L 06/25/18 07:06 BUN 34 mg/dl (7-18) H 06/25/18 07:06 Creatinine 1.2 mg/dl (0.55-1.3) 06/25/18 07:06 Creat Clearance w eGFR 42.40 (>60) 06/25/18 07:06 Calcium 8.4 mg/dl (8.5-10) L 06/25/18 07:06 Total Bilirubin 0.6 mg/dl (0.2-1) 06/25/18 07:06 AST 18 U/L (15-37) 06/25/18 07:06 ALT 14 U/L (13-61) 06/25/18 07:06 Alkaline Phosphatase 60 U/L (45-117) D 06/25/18 07:06 Total Protein 6.1 g/dl (6.4-8.2) L 06/25/18 07:06 Albumin 3.2 g/dl (3.4-5.0) L 06/25/18 07:06 HOSPITAL COURSE: Date of Admission:06/24/18 Date of Discharge: 06/26/18 Pre hospital course 88 year-old female with a PMH significant for HTN, IDDM, CKD, left breast CA, GERD, recurrent UTIs, and hypothyroidism. Patient said she was getting ready to go to bed when all of a sudden she became so weak that she was unable to stand or ambulate. Patient said she fell back on the bed and wasn't able to get up again because she was so weak. Patient said she did not pass out. Patient denies any chest pain, shortness of breath, nausea, diaphoresis, headache, dizziness, vertigo or any other complaints. Patient just complains of generalized total body weakness. Patient also admits to some bright red blood per rectum earlier in the day. Pt describes it as a small amount with a BM and denies any recently and said that she is supposed to see a gas fitter apprentice for stage IV kidney disease. ER course (1) BP 184/66 (2) Na 127 (3) BUN/Cr 52/1.5 (4) Hgb 9.4 Subsequent hospital course 88 year-old female with a PMH significant for HTN, IDDM, CKD, left breast CA, GERD, recurrent UTIs, and hypothyroidism. Placed on observation for generalized weakness. Generalized weakness --afebrile, leukocytosis is baseline; per PCP Dr. Salinas leukocytosis is due to chronic leukemia, stable --CXR clear; UA negative; low suspicion for infectious etiology --mildly hyponatremic; no significant electrolyte imbalances Hyponatremia, improved --Na 134 corrected Anemia --Hgb stable Hypertension --BP under better control --continued losartan, amlodipine, carvedilol, Lasix IDDM --Novolog sliding scale coverage --Levemir 22U qhs Chronic kidney disease --Cr 1.5 in ED -->1.2 Left breast cancer --stable GERD --protonix Hypothyroidism --continued levothyroxine Rectal bleeding --seen and evaluated by GI Dr. Leung; patient may follow as outpatient for an endoscopic evaluation DVT prophylaxis: subq heparin Dispo: Patient requires continued observation. Full code. Minutes to complete discharge: 35 Discharge Summary Reason For Visit: ANEMIA, HYPONATREMIA, KIDNEY DISORDER Current Active Problems Anemia (Acute) Hyponatremia (Acute) Renal disease (Acute) Condition: Improved - Instructions Referrals: Shaq Salinas MD [Staff Physician] - Disposition: HOME - Home Medications Comprehensive Discharge Medication List: Ambulatory Orders Multivitamins [Multivit ([facility] Formulary)] 1 tab PO DAILY 06/10/14 Aspirin [ASA -] 81 mg PO DAILY #0 06/14/14 Amlodipine Besylate 5 mg PO DAILY 06/23/18 Calcium Carbonate/Vitamin D3 [Calcium 500 + Vit D3 400 Tab] 1 each PO DAILY Carvedilol [Coreg -] 25 mg PO BID 06/23/18 Cholecalciferol (Vitamin D3) [Vitamin D3 -] 400 unit PO DAILY 06/23/18 Famotidine [Pepcid] 40 mg PO DAILY 06/24/18 Furosemide [Lasix -] 40 mg PO DAILY 06/24/18 Letrozole 2.5 mg PO DAILY 06/24/18 Losartan Potassium 100 mg PO DAILY 06/24/18 Potassium Chloride [Klor-Con M20] 20 meq PO DAILY 06/24/18 Tramadol HCl 50 mg PO TID PRN 06/24/18 This patient is new to me today: No Emergency Visit: Yes ED Registration Date: 06/24/18 Care time: The patient presented to the Emergency Department on the above date and was hospitalized for further evaluation of their emergent condition. Critical Care patient: No - Discharge Referral Referred to [facility] Med P.C.: Yes Physician Referral: Shaq Salinas MD (Int Med)
[2018-06-26] MEDS: amLODIPine BESYLATE 5 MG TABLET (FP) PO SCH (10:08)
[2018-06-26] MEDS: LETROZOLE 2.5 MG TABLET (FP) PO SCH (10:08)
[2018-06-26] MEDS: CARVEDILOL 25 MG TABLET (FP) PO SCH (10:08)
[2018-06-26] MEDS: LOSARTAN POTASSIUM 50 MG TABLET (FP) PO SCH (10:08)
[2018-06-26] MEDS: PANTOPRAZOLE 40 MG TABLET (FP) PO SCH (10:08)
[2018-06-26] MEDS: FUROSEMIDE 40 MG TABLET (FP) PO SCH (10:08)
== END 2018-06-26 11:18 | disposition home health service (06) ==
LOC: FER 22:50 → FM/S 06-24 00:25
PROVIDERS: ADMIT Internal Medicine; ATTEND Nurse Practitioner Acute Care
PROC: 3E0337Z Introduction of Electrolytic and Water Balance Substance into Peripheral Vein, Percutaneous Approach (ICD-10-PCS; principal; 2018-06-24)
PROC: 3E013VG Introduction of Insulin into Subcutaneous Tissue, Percutaneous Approach (ICD-10-PCS; 2018-06-24)
DX: D53.9 Nutritional anemia, unspecified (principal); E87.1 Hypo-osmolality and hyponatremia; E11.22 Type 2 diabetes mellitus with diabetic chronic kidney disease; I12.9 Hypertensive chronic kidney disease with stage 1 through stage 4 chronic kidney disease, or unspecified chronic kidney disease; N18.9 Chronic kidney disease, unspecified; E78.5 Hyperlipidemia, unspecified; E03.9 Hypothyroidism, unspecified; I25.10 Atherosclerotic heart disease of native coronary artery without angina pectoris; K21.9 Gastro-esophageal reflux disease without esophagitis; M62.81 Muscle weakness (generalized); Z79.4 Long term (current) use of insulin; Z79.84 Long term (current) use of oral hypoglycemic drugs; Z87.440 Personal history of urinary (tract) infections; Z79.82 Long term (current) use of aspirin; Z85.3 Personal history of malignant neoplasm of breast; Z86.73 Personal history of transient ischemic attack (TIA), and cerebral infarction without residual deficits
CPT/HCPCS: 36415; 71045-TC-FY; 80048; 80053; 81003; 81015; 82272; 82436; 82550; 82962; 83735; 83930; 83935; 84100; 84133; 84300; 84484; 85025; 85027; 86850; 86900; 86901; 87040; 87086; 93005; 96360; 96361; 96372; 97116-GP; 97161-GP; 99284-25; G0378; J1644

== ENCOUNTER 2019-03-26 23:08 | Inpatient (IN) | payer OTHER, MEDICARE ==
--- NOTE | 2019-03-26 23:13 | PDOC ---
History of Present Illness - General Chief Complaint: Edema Stated Complaint: SWOLLEN LEGS Time Seen by Provider: 03/26/19 23:11 History Source: Patient Exam Limitations: No Limitations - History of Present Illness Initial Comments: 03/26/19 23:47 This is an 89-year-old female sent in by her primary care doctor for admission of bilateral leg edema. As per primary care doctor patient's legs have gotten so swollen and large that she is unable to lift them up into bed. Patient otherwise denies any chest pains, shortness of breath, nausea vomiting or diarrhea. Patient denies any fevers, chills cough or congestion. Allergies: as per nursing notes Past Medical History: Hypertension, high cholesterol, diabetes Social history: Lives with family. No smoking. No alcohol. No illicit drugs. Surgical history: None General: No fevers or chills, no weakness, no weight loss HEENT: No change in vision. No sore throat,. No ear pain CardioVascular: no chest discomfort. No shortness of breath Respiratory:No cough, or wheezing. Gastrointestinal: no nausea, vomiting, diarrhea or constipation, No rectal bleeding Genitourinary: No dysuria, hematuria, or frequency Musculoskeletal: No joint or muscle pain or swelling Neurologic: No headache, vertigo, dizziness or loss of consciousness Psychiatric: nor depression Skin: No rashes or easy bruising, bilateral edema Endocrine: no increased thirst or abnormal weight change Allergic: no skin or latex allergy All other systems reviewed and normal Exam: General: Well-nourished well-developed individual, no acute distress HEENT: Throat: Normal, tonsils normal, no erythema or exudate Neck: Supple, no meningeal signs, no lymphadenopathy Eyes::Pupils equal reactive and round, extraocular motion intact Chest: Nontender to palpation Cardiac: S1-S2 normal, regular rate and rhythm, no murmurs rubs or gallops Respiratory: Lungs clear to auscultation bilateral Abdomen: Soft, nondistended, normal bowel sounds, there is no tenderness on palpation diffusely Extremities: Warm, dry, no cyanosis, clubbing, there is a large amount of pitting bilateral edema all the way up to the groin area. There is some serosanguineous discharge from the legs Skin: No rashes Neuro: Alert and oriented x3, CN II - XII intact, nonfocal exam with normal strength, normal sensation, normal reflexes, normal gait, Psych: Normal mood and affect Assessment and plan: This is an 89-year-old female who comes in with bilateral leg edema for admission from her primary care doctor. Patient will be admitted and given Lasix.. Past History - Past Medical History Allergies/Adverse Reactions: Allergies Allergy/AdvReac Type Severity Reaction Status Date / Time NSAIDS (Non-Steroidal Allergy Severe Difficulty Verified 08/07/17 16:42 Anti-Inflamma Breathing ibuprofen Allergy Intermediate Rash Verified 08/07/17 16:42 meloxicam [From Mobic] Allergy Intermediate Rash Verified 08/07/17 16:42 rosiglitazone maleate Allergy Verified 08/07/17 16:42 [From Avandia] albuterol AdvReac Intermediate Elevated Verified 08/07/17 16:42 Blood Pressure epinephrine AdvReac Intermediate Elevated Verified 08/07/17 16:42 Blood Pressure oxycodone HCl [From Percodan] AdvReac Intermediate Elevated Verified 08/07/17 16 :42 Blood Pressure oxycodone terephthalate AdvReac Intermediate Elevated Verified 08/07/17 16:42 [From Percodan] Blood Pressure flu shot AdvReac Severe GILLAIN Uncoded 07/27/14 19:22 [employer] Home Medications: Ambulatory Orders Multivitamins [Multivit ([facility] Formulary)] 1 tab PO DAILY 06/10/14 Aspirin [ASA -] 81 mg PO DAILY #0 06/14/14 Amlodipine Besylate 5 mg PO DAILY 06/23/18 Calcium Carbonate/Vitamin D3 [Calcium 500-Vit D3 400 Tablet] 1 each PO DAILY Carvedilol [Coreg -] 25 mg PO BID 06/23/18 Cholecalciferol (Vitamin D3) [Vitamin D -] 400 unit PO DAILY 06/23/18 Famotidine [Pepcid] 40 mg PO DAILY 06/24/18 Furosemide [Lasix -] 40 mg PO BID 06/24/18 Letrozole 2.5 mg PO DAILY 06/24/18 Losartan Potassium 100 mg PO DAILY 06/24/18 Potassium Chloride [Klor-Con M20] 20 meq PO DAILY 06/24/18 Tramadol HCl 50 mg PO TID PRN 06/24/18 Insulin Glargine,Hum.rec.anlog [Lantus Solostar PEN (NF)] 25 units SQ DAILY Pregabalin [Lyrica] 25 mg PO BID 03/26/19 Anemia: Yes (MILD-HIGH WBC X 20 YRS) Asthma: Yes (YRS AGO-STABLE NO MEDS) Cancer: Yes (LEFT BREAST-DX 07/2013) Cardiac Disorders: No 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) COPD: No CHF: No Dementia: No Diabetes: Yes (DX 1962) GI Disorders: Yes (ACID REFLUX) Disorders: Yes (FREQUENT UTI'S-LAST 2012-HOSPITALIZED) HTN: Yes (HX OF 40 YRS) Hypercholesterolemia: No Liver Disease: No Seizures: No Thyroid Disease: Yes (HYPOTHYROIDISM-DX 1949') - Surgical History Abdominal Surgery: Yes (UNBILICAL HERNIA REPAIR-2008) Appendectomy: No Cardiac Surgery: No Cholecystectomy: No Lung Surgery: No Neurologic Surgery: No Orthopedic Surgery: No - Psycho Social/Smoking Cessation Hx Smoking Status: No Smoking History: Never smoked Have you smoked in the past 12 months: No Number of Cigarettes Smoked Daily: 0 Hx Alcohol Use: No Drug/Substance Use Hx: No Substance Use Type: None Hx Substance Use Treatment: No ED Treatment Course - LABORATORY CBC & Chemistry Diagram: 03/27/19 00:30 03/27/19 00:30 Discharge - Discharge Information Problems reviewed: Yes Clinical Impression/Diagnosis: Bilateral leg edema Condition: Good - Admission Yes - Follow up/Referral Referrals: Shaq Salinas MD [Primary Care Provider] - - Patient Discharge Instructions - Post Discharge Activity
[2019-03-26] MEDS ORDERED: FUROSEMIDE 40 MG/4 ML INJECTABLE VIAL IVPUSH ONE (23:14)
[2019-03-27] MEDS ORDERED: FUROSEMIDE 40 MG/4 ML INJECTABLE VIAL ONE (00:06)
[2019-03-27 01:17] LABS: BASO % 1.5 % (0-2.0); EOS % 5.6 % (0-4.5); HEMATOCRIT 25.9 % (32.4-45.2); HEMOGLOBIN 8.4 GM/dL (10.7-15.3); LYMPH % 11.7 % (8-40); MCH 33.4 pg (25.7-33.7); MCHC 32.6 g/dl (32.0-36.0); MEAN CELL VOLUME 102.2 fl (80-96); MEAN PLT VOLUME 7.7 fl (7.5-11.1); MONO % 13.1 % (3.8-10.2); NEUT % 68.1 % (42.8-82.8); PLATELET COUNT 346 K/MM3 (134-434); RBC 2.53 M/mm3 (3.60-5.2); RDW 16.4 % (11.6-15.6); WHITE BLOOD COUNT 16.4 K/mm3 (4.0-10.0)
[2019-03-27 01:18] LABS: EPI CELLS 0.4 /HPF (0-5/HPF); HYALINE CASTS 1 /lpf (0-8); URINE APPEARANCE CLEAR; URINE BACTERIA 1.2 /hpf (NEGATIVE); URINE BILIRUBIN NEGATIVE (NEGATIVE); URINE COLOR YELLOW; URINE GLUCOSE (UA) NEGATIVE (NEGATIVE); URINE KETONE NEGATIVE (NEGATIVE); URINE LEUK ESTERASE NEGATIVE (NEGATIVE); URINE NITRITE NEGATIVE (NEGATIVE); URINE PROTEIN 3+ (NEGATIVE); URINE RBC 1 /hpf (0-4); URINE UROBILINOGEN 0.2 mg/dL (0.2-1.0); URINE WBC 0 /hpf (0-5)
[2019-03-27] MEDS: HEPARIN NA (PORCINE) 5,000 UNITS/ML 1ML VIAL SQ SCH ×3 (07:08→22:02)
[2019-03-27] MEDS: FUROSEMIDE 40 MG/4 ML INJECTABLE VIAL IVPUSH SCH ×2 (07:08→14:24)
[2019-03-27 07:16] LABS: ANISOCYTOSIS 2+; MACROCYTOSIS 1+; PLATELET ESTIMATE NORMAL
[2019-03-27] MEDS ORDERED: traMADol HCL 50 MG TABLET PO PRN (09:11)
--- NOTE | 2019-03-27 09:11 | HP ---
CHIEF COMPLAINT: Worsening lower extremity edema and weakness PCP: Dr. Salinas HISTORY OF PRESENT ILLNESS: This is an 89 year-old female with a PMH significant for HTN, IDDM, CKD, left breast CA, GERD, recurrent UTIs, lower extremity edema, chronic pain and hypothyroidism, who was sent in by pmd for evaluation of worsening lower extremity edema,pain,weakness and difficulty with ambulation for 3 weeks. Pt denies cp, sob, palpitations, abdominal pain,reports mild nausea,chronic chills but no fever,vomiting,cough,dysuria, frequency, urgency, hematuria or hematochezia. Denies any fall. Pt states that she was seen by PMD Dr. Salinas few weeks ago for lower ext swelling / pain, at that time added Lyrica and Lasix. Pt lives alone,has [employer] for 4 hrs a day M-F and uses walker/ cane. ER course was notable for: (1)wbc 16.4, afebrile (2)CxR:New congestive changes (3) EKG: SR, LLB, no acute ST changes Recent Travel: No PAST MEDICAL HISTORY: Hypertension IDDM Chronic kidney disease Left breast cancer GERD Recurrent UTIs Hypothyroidism PAST SURGICAL HISTORY: Left breast lumpectomy (2014) Abdominal Hernia sx Family History: Father HTN Bothers - HTN/ DM Social History: Smoking:No Alcohol:No Drugs: NO Allergies NSAIDS (Non-Steroidal Anti-Inflamma Allergy (Severe, Verified 08/07/17 16:42) Difficulty Breathing ibuprofen Allergy (Intermediate, Verified 08/07/17 16:42) Rash meloxicam [From Mobic] Allergy (Intermediate, Verified 08/07/17 16:42) Rash all to all n-saids ? except Asprin rosiglitazone maleate [From Avandia] Allergy (Verified 08/07/17 16:42) albuterol Adverse Reaction (Intermediate, Verified 08/07/17 16:42) Elevated Blood Pressure ELEVATED SUGAR/ELEVATED TEMP epinephrine Adverse Reaction (Intermediate, Verified 08/07/17 16:42) Elevated Blood Pressure ELEVATED SUGAR/TEMP oxycodone HCl [From Percodan] Adverse Reaction (Intermediate, Verified 08/07/17 16:42) Elevated Blood Pressure ELEVATED SUGAR/ELEVATED TEMP oxycodone terephthalate [From Percodan] Adverse Reaction (Intermediate, Verified 08/07/17 16:42) Elevated Blood Pressure ELEVATED TEMP/SUGAR flu shot Adverse Reaction (Severe, Uncoded 07/27/14 19:22) [facility] [employer] HOME MEDICATIONS: Home Medications Medication Instructions Recorded Multivitamins [Multivit ([facility] 1 tab PO DAILY 06/10/14 Formulary)] Aspirin [ASA -] 81 mg PO DAILY #0 06/14/14 Amlodipine Besylate 5 mg PO DAILY 06/23/18 Calcium Carbonate/Vitamin D3 1 each PO DAILY 06/23/18 [Calcium 500-Vit D3 400 Tablet] Carvedilol [Coreg -] 25 mg PO BID 06/23/18 Cholecalciferol (Vitamin D3) 400 unit PO DAILY 06/23/18 [Vitamin D -] Famotidine [Pepcid] 40 mg PO DAILY 06/24/18 Furosemide [Lasix -] 40 mg PO BID 06/24/18 Letrozole 2.5 mg PO DAILY 06/24/18 Losartan Potassium 100 mg PO DAILY 06/24/18 Potassium Chloride [Klor-Con M20] 20 meq PO DAILY 06/24/18 Tramadol HCl 50 mg PO TID PRN 06/24/18 Insulin Glargine,Hum.rec.anlog 25 units SQ DAILY 03/26/19 [Lantus Solostar PEN (NF)] Pregabalin [Lyrica] 25 mg PO BID 03/26/19 REVIEW OF SYSTEMS CONSTITUTIONAL: Reports Chronic chills and generalized weakness Absent: fever, diaphoresis, malaise, loss of appetite, weight change HEENT: Absent: rhinorrhea, nasal congestion, throat pain, throat swelling, difficulty swallowing, mouth swelling, ear pain, eye pain, visual changes CARDIOVASCULAR: Absent: chest pain, syncope, palpitations, irregular heart rate, lightheadedness , peripheral edema RESPIRATORY: Absent: cough, shortness of breath, dyspnea with exertion, orthopnea, wheezing, stridor, hemoptysis GASTROINTESTINAL: Absent: abdominal pain, abdominal distension, nausea, vomiting, diarrhea, constipation, melena, hematochezia GENITOURINARY: Absent: dysuria, frequency, urgency, hesitancy, hematuria, flank pain, genital pain MUSCULOSKELETAL: Reports myalgia, arthralgia, Absent: oint swelling, back pain, neck pain SKIN: Absent: rash, itching, pallor HEMATOLOGIC/IMMUNOLOGIC: Absent: easy bleeding, easy bruising, lymphadenopathy, frequent infections ENDOCRINE: Absent: unexplained weight gain, unexplained weight loss, heat intolerance, cold intolerance NEUROLOGIC: Absent: headache, focal weakness or paresthesias, dizziness, unsteady gait, seizure, mental status changes, bladder or bowel incontinence PSYCHIATRIC: Absent: anxiety, depression, suicidal or homicidal ideation, hallucinations. PHYSICAL EXAMINATION Vital Signs - 24 hr 03/26/19 03/27/19 03/27/19 23:09 02:42 03:09 Temperature 97.7 F 97.7 F 97.7 F Pulse Rate 76 77 77 Respiratory 20 20 20 Rate Blood Pressure 179/86 H 144/53 L 144/53 L O2 Sat by Pulse 100 100 Oximetry (%) 03/27/19 07:50 Temperature 97.6 F Pulse Rate 84 Respiratory 17 Rate Blood Pressure 153/66 O2 Sat by Pulse Oximetry (%) GENERAL: Awake, alert, and fully oriented, in no acute distress. HEAD: Normal with no signs of trauma. EYES: Pupils equal, round and reactive to light, extraocular movements intact, sclera anicteric, conjunctiva clear. No lid lag. EARS, NOSE, THROAT: Ears normal, nares patent, oropharynx clear without exudates. Moist mucous membranes. NECK: Normal range of motion, supple without lymphadenopathy, JVD, or masses. LUNGS: Breath sounds equal, clear to auscultation bilaterally. No wheezes, and no crackles. No accessory muscle use. HEART: Regular rate and rhythm, normal S1 and S2 without murmur, rub or gallop. ABDOMEN: Soft, nontender, not distended, normoactive bowel sounds, no guarding, no rebound, no masses. No hepatomegaly or splenomegaly. MUSCULOSKELETAL: Normal range of motion at all joints. No bony deformities or tenderness. No CVA tenderness. UPPER EXTREMITIES: 2+ pulses, warm, well-perfused. No cyanosis. No clubbing. No peripheral edema. LOWER EXTREMITIES: 2+ pulses, warm, well-perfused. No calf tenderness. positive peripheral edema,1-2 with tenderness/ redness NEUROLOGICAL: Cranial nerves II-XII intact. Normal speech. Normal gait. PSYCHIATRIC: Cooperative. Good eye contact. Appropriate mood and affect. SKIN: Warm, dry, normal turgor, no rashes or lesions noted, normal capillary refill.- LLE remains dry and scaly Laboratory Results - last 24 hr 03/27/19 03/27/19 03/27/19 00:30 00:30 00:30 WBC 16.4 H RBC 2.53 L Hgb 8.4 L Hct 25.9 L MCV 102.2 H MCH 33.4 MCHC 32.6 RDW 16.4 H Plt Count 346 MPV 7.7 Absolute Neuts (auto) 11.2 H Neutrophils % 68.1 Neutrophils % (Manual) 72.7 Band Neutrophils % 3.0 Lymphocytes % 11.7 Lymphocytes % (Manual) 11.1 Monocytes % 13.1 H Monocytes % (Manual) 2 L Eosinophils % 5.6 H Eosinophils % (Manual) 3.1 Basophils % 1.5 Basophils % (Manual) 5.1 H* Myelocytes % (Man) 2 Promyelocytes % (Man) 0 Blast Cells % (Manual) 0 Nucleated RBC % 0 Metamyelocytes 0 Hypochromia 0 Platelet Estimate Normal Polychromasia 0 Poikilocytosis 2+ Anisocytosis 2+ Microcytosis 0 Macrocytosis 1+ Stomatocytes 1+ Sodium Cancelled Potassium Cancelled Chloride Cancelled Carbon Dioxide Cancelled Anion Gap Cancelled BUN Cancelled Creatinine Cancelled Est GFR (CKD-EPI)AfAm Cancelled Est GFR (CKD-EPI)NonAf Cancelled Random Glucose Cancelled Calcium Cancelled Total Bilirubin Cancelled AST Cancelled ALT Cancelled Alkaline Phosphatase Cancelled Creatine Kinase Cancelled Creatine Kinase Index Cancelled CK-MB (CK-2) Cancelled Troponin I Cancelled Cancelled Total Protein Cancelled Albumin Cancelled Urine Color Urine Appearance Urine pH Ur Specific [place] Urine Protein Urine Glucose (UA) Urine Ketones Urine Blood Urine Nitrite Urine Bilirubin Urine Urobilinogen Ur Leukocyte Esterase Urine WBC (Auto) Urine RBC (Auto) Urine Casts (Auto) U Epithel Cells (Auto) Urine Bacteria (Auto) 03/27/19 03/27/19 00:30 00:30 WBC RBC Hgb Hct MCV MCH MCHC RDW Plt Count MPV Absolute Neuts (auto) Neutrophils % Neutrophils % (Manual) Band Neutrophils % Lymphocytes % Lymphocytes % (Manual) Monocytes % Monocytes % (Manual) Eosinophils % Eosinophils % (Manual) Basophils % Basophils % (Manual) Myelocytes % (Man) Promyelocytes % (Man) Blast Cells % (Manual) Nucleated RBC % Metamyelocytes Hypochromia Platelet Estimate Polychromasia Poikilocytosis Anisocytosis Microcytosis Macrocytosis Stomatocytes Sodium Potassium Chloride Carbon Dioxide Anion Gap BUN Creatinine Est GFR (CKD-EPI)AfAm Est GFR (CKD-EPI)NonAf Random Glucose Calcium Total Bilirubin AST ALT Alkaline Phosphatase Creatine Kinase Creatine Kinase Index CK-MB (CK-2) Troponin I Total Protein Albumin Urine Color Cancelled Yellow Urine Appearance Cancelled Clear Urine pH Cancelled 6.0 Ur Specific [place] 1.008 L Urine Protein Cancelled 3+ H Urine Glucose (UA) Cancelled Negative Urine Ketones Cancelled Negative Urine Blood Cancelled Negative Urine Nitrite Cancelled Negative Urine Bilirubin Cancelled Negative Urine Urobilinogen Cancelled 0.2 Ur Leukocyte Esterase Cancelled Negative Urine WBC (Auto) 0 Urine RBC (Auto) 1 Urine Casts (Auto) 1 U Epithel Cells (Auto) 0.4 Urine Bacteria (Auto) 1.2 ASSESSMENT/PLAN: This is an 89 year-old female with a PMH significant for HTN, IDDM, CKD, left breast CA, GERD, recurrent UTIs, lower extremity edema, chronic pain and hypothyroidism, who presents to the ER complaining for worsening lower extremity pain ,edema, weakness and difficulty with ambulation for 3 weeks. * Lower ext cellulitis - will start on Ceftriaxone - ordered US to r/o DVT - ordered BC - WBC 16 (hx of elevated wbc ), afebrile - pain control - to keep exts elevated -PT eval * CxR with congestion and lower ext edema , no reported hx of CHF - will check Echo and BNP - will monitor I&O's * Chronic anemia - stable - no overt signs of bleeding noted - stool OB * Lower ext edema - recently started on lasix - will hold off Lasix in view of worsening renal functions *Hypertension -continue amlodipine, carvedilol -will hold off Lasix,Losartan in view of worsening renal functions - will monitor BP closely *IDDM - Insulin sliding scale - will cont on home dose Lantus - FS AC& HS - Consistent carb diet *Chronic kidney disease - baseline normal - cre 2.5 today,poss due to diuretic use - will monitor renal functions * Hx of Left breast cancer - on Letrozole *GERD -Pepcid *Hypothyroidism - will continue on levothyroxine - checked TSH 8.14 - will check free T4 *Constipation - ordered Miralax *Generalized weakness - PT eval * Hyponatremia - chronic - NA 131 - at baseline * F/E/N - Diabetic , Na controlled diet - replace electrolytes as needed *DVT prophylaxis: subq heparin Code status: Full code Visit type - Emergency Visit Emergency Visit: Yes ED Registration Date: 03/27/19 Care time: The patient presented to the Emergency Department on the above date and was hospitalized for further evaluation of their emergent condition. - New Patient This patient is new to me today: Yes Date on this admission: 03/27/19 - Critical Care Critical Care patient: No
[2019-03-27 09:55] LABS: BASO % 1.4 % (0-2.0); EOS % 5.4 % (0-4.5); HEMOGLOBIN 8.1 GM/dl (10.7-15.3); LYMPH % 8.8 % (8-40); MCH 33.3 pg (25.7-33.7); MCHC 32.4 g/dl (32.0-36.0); MEAN CELL VOLUME 102.9 fl (80-96); MEAN PLT VOLUME 6.5 fl (7.5-11.1); MONO % 14.1 % (3.8-10.2); NEUT % 70.3 % (42.8-82.8); PLATELET COUNT 374 K/MM3 (134-434); RBC 2.43 M/mm3 (3.60-5.2); RDW 15.8 % (11.6-15.6); WHITE BLOOD COUNT 15.2 K/mm3 (4.0-10.8)
[2019-03-27] MEDS ORDERED: PATIENT'S OWN MEDICATION (NON-FORMULARY) (Insulin Glargine,Hum.Rec.Anlog 25 UNITS) SQ SCH (10:00)
[2019-03-27] MEDS ORDERED: CEFTRIAXONE 1 GM in DEXTROSE 5%-WATER - 50 ML IVPB SCH (10:00)
[2019-03-27 10:21] LABS: CALCIUM 8.3 mg/dl (8.5-10); CREATININE 2.4 mg/dl (0.55-1.3); POTASSIUM 3.8 mmol/L (3.5-5.1)
[2019-03-27 10:27] LABS: ALBUMIN 2.9 g/dl (3.4-5.0); BILIRUBIN,TOTAL 0.6 mg/dl (0.2-1); TOT PROT 5.7 g/dl (6.4-8.2)
[2019-03-27 10:43] LABS: BILIRUBIN,DIRECT 0.1 mg/dL (0.0-0.2)
[2019-03-27] MEDS: amLODIPine BESYLATE 5 MG TABLET (FP) PO SCH (11:02)
[2019-03-27] MEDS: MULTIVITAMINS (DAILY MVI) TABLET (FP) PO SCH (11:03)
[2019-03-27] MEDS: PREGABALIN 25 MG CAPSULE PO SCH ×2 (11:03→21:58)
[2019-03-27] MEDS: ASPIRIN 81 MG CHEWABLE TABLETS PO SCH (11:04)
[2019-03-27] MEDS: FAMOTIDINE 20 MG TABLET PO SCH (11:04)
[2019-03-27] MEDS: PATIENT'S OWN MEDICATION (NON-FORMULARY) (Famotidine [Pepcid] 40 MG) PO SCH (11:04)
[2019-03-27] MEDS: LEVOTHYROXINE NA 100 MCG TABLET (FP) PO SCH (11:05)
[2019-03-27] MEDS: POLYETHYLENE GLYCOL 3350 119 GM BTL PO SCH (11:05)
[2019-03-27] MEDS: CHOLECALCIFEROL (VIT D3) 400 UNIT (10 MCG) TABLET PO SCH (11:05)
[2019-03-27] MEDS: CARVEDILOL 12.5 MG TABLET (FP) PO SCH ×2 (11:15→22:01)
[2019-03-27] MEDS ORDERED: INSULIN (LEVEMIR) 100 UNITS/ML UNITS SQ SCH (11:15)
[2019-03-27] MEDS: INSULIN (LEVEMIR) 100 UNITS/ML UNITS SQ SCH (11:17)
[2019-03-27] MEDS: INSULIN SLIDING SCALE (NOVOLOG) 1 VIAL SQ SCH ×3 (11:18→22:06)
[2019-03-27] MEDS: SODIUM CHLORIDE 1,000 ML IV SCH (13:43)
[2019-03-27] MEDS: LETROZOLE 2.5 MG TABLET (FP) PO SCH (13:43)
[2019-03-27] MEDS ORDERED: PT OWN MED DRAWER 7, Y5N ONE (13:47)
--- NOTE | 2019-03-27 14:32 | EKG ---
Test Reason : Blood Pressure : / mmHG Vent. Rate : 078 BPM Atrial Rate : 078 BPM P-R Int : 214 ms QRS Dur : 110 ms QT Int : 402 ms P-R-T Axes : 065 -31 064 degrees QTc Int : 458 ms SINUS RHYTHM WITH 1ST DEGREE A-V BLOCK LEFT AXIS DEVIATION INCOMPLETE LEFT BUNDLE BRANCH BLOCK ABNORMAL ECG WHEN COMPARED WITH ECG OF 23-JUN-2018 23:29, NO SIGNIFICANT CHANGE WAS FOUND Confirmed by DEJAH KINSEY MD ([id number]) on 03/27/2019 2:31:29 PM Referred By: MD DAMON Confirmed By:DEJAH KINSEY MD
[2019-03-28] MEDS: FUROSEMIDE 40 MG/4 ML INJECTABLE VIAL IVPUSH SCH ×2 (06:27→13:27)
[2019-03-28] MEDS: HEPARIN NA (PORCINE) 5,000 UNITS/ML 1ML VIAL SQ SCH ×3 (06:27→21:10)
[2019-03-28] MEDS: INSULIN SLIDING SCALE (NOVOLOG) 1 VIAL SQ SCH ×5 (07:10→21:06)
[2019-03-28 07:30] LABS: HEMATOCRIT 22.2 % (32.4-45.2); HEMOGLOBIN 7.3 GM/dL (10.7-15.3); MCH 33.2 pg (25.7-33.7); MEAN CELL VOLUME 100.6 fl (80-96); MEAN PLT VOLUME 7.2 fl (7.5-11.1); PLATELET COUNT 299 K/MM3 (134-434); RDW 16.6 % (11.6-15.6); WHITE BLOOD COUNT 11.9 K/mm3 (4.0-10.0)
[2019-03-28 07:57] LABS: BLOOD UREA NITROGEN 59.2 mg/dL (7-18); CALCIUM 8.2 mg/dL (8.5-10.1); CREATININE 2.2 mg/dL (0.55-1.3); MAGNESIUM 2.7 mg/dL (1.8-2.4); PHOSPHOROUS 4.6 mg/dL (2.5-4.9); POTASSIUM 4.1 mmol/L (3.5-5.1)
[2019-03-28] MEDS: POLYETHYLENE GLYCOL 3350 119 GM BTL PO SCH (09:27)
[2019-03-28] MEDS: LETROZOLE 2.5 MG TABLET (FP) PO SCH (09:27)
[2019-03-28] MEDS: CEFTRIAXONE 1 G/50 ML PREMIX 50 ML IVPB SCH (09:27)
[2019-03-28] MEDS: MULTIVITAMINS (DAILY MVI) TABLET (FP) PO SCH (09:28)
[2019-03-28] MEDS: amLODIPine BESYLATE 5 MG TABLET (FP) PO SCH (09:29)
[2019-03-28] MEDS: FAMOTIDINE 20 MG TABLET PO SCH (09:29)
[2019-03-28] MEDS: CARVEDILOL 12.5 MG TABLET (FP) PO SCH ×2 (09:29→21:07)
[2019-03-28] MEDS: PREGABALIN 25 MG CAPSULE PO SCH ×2 (09:29→21:07)
[2019-03-28] MEDS: ASPIRIN 81 MG CHEWABLE TABLETS PO SCH (09:29)
[2019-03-28] MEDS: INSULIN (LEVEMIR) 100 UNITS/ML UNITS SQ SCH ×2 (09:30→12:19)
[2019-03-28] MEDS: LEVOTHYROXINE NA 100 MCG TABLET (FP) PO SCH (10:22)
[2019-03-28] MEDS: CHOLECALCIFEROL (VIT D3) 400 UNIT (10 MCG) TABLET PO SCH (10:22)
--- NOTE | 2019-03-28 10:59 | PN ---
Physical Exam: SUBJECTIVE: Patient seen and examined OBJECTIVE: Vital Signs Period Temp Pulse Resp BP Sys/Hernandez Pulse Ox Last 24 Hr 97.8 F-98.7 F 72-87 18-20 132-156/47-60 97-99 GENERAL: Awake, alert, and fully oriented, in no acute distress. HEAD: Normal with no signs of trauma. EYES: Pupils equal, round and reactive to light, extraocular movements intact, sclera anicteric, conjunctiva clear. No lid lag. EARS, NOSE, THROAT: Ears normal, nares patent, oropharynx clear without exudates. Moist mucous membranes. NECK: Normal range of motion, supple without lymphadenopathy, JVD, or masses. LUNGS: Breath sounds equal, clear to auscultation bilaterally. No wheezes, and no crackles. No accessory muscle use. HEART: Regular rate and rhythm, normal S1 and S2 without murmur, rub or gallop. ABDOMEN: Soft, nontender, not distended, normoactive bowel sounds, no guarding, no rebound, no masses. No hepatomegaly or splenomegaly. MUSCULOSKELETAL: Normal range of motion at all joints. No bony deformities or tenderness. No CVA tenderness. UPPER EXTREMITIES: 2+ pulses, warm, well-perfused. No cyanosis. No clubbing. No peripheral edema. LOWER EXTREMITIES: 2+ pulses, warm, well-perfused. No calf tenderness. positive peripheral edema,1-2 with tenderness/ redness NEUROLOGICAL: Cranial nerves II-XII intact. Normal speech. Normal gait. PSYCHIATRIC: Cooperative. Good eye contact. Appropriate mood and affect. SKIN: Warm, dry, normal turgor, no rashes or lesions noted, normal capillary refill.- LLE remains dry and scaly Laboratory Results - last 24 hr 03/27/19 03/27/19 03/27/19 09:35 09:35 10:00 WBC RBC Hgb Hct MCV MCH MCHC RDW Plt Count MPV Sodium Potassium Chloride Carbon Dioxide Anion Gap BUN Creatinine Est GFR (CKD-EPI)AfAm Est GFR (CKD-EPI)NonAf POC Glucometer Random Glucose Calcium Phosphorus Magnesium B-Natriuretic Peptide 1853.6 H TSH 8.14 H Free T4 0.84 03/27/19 03/27/19 03/27/19 11:13 16:30 21:53 WBC RBC Hgb Hct MCV MCH MCHC RDW Plt Count MPV Sodium Potassium Chloride Carbon Dioxide Anion Gap BUN Creatinine Est GFR (CKD-EPI)AfAm Est GFR (CKD-EPI)NonAf POC Glucometer 189 155 185 Random Glucose Calcium Phosphorus Magnesium B-Natriuretic Peptide TSH Free T4 03/28/19 03/28/19 03/28/19 06:00 06:00 07:09 WBC 11.9 H RBC 2.20 L Hgb 7.3 L Hct 22.2 L MCV 100.6 H MCH 33.2 MCHC 33.0 RDW 16.6 H Plt Count 299 MPV 7.2 L Sodium 139 Potassium 4.1 Chloride 108 H Carbon Dioxide 24 Anion Gap 7 L BUN 59.2 H Creatinine 2.2 H Est GFR (CKD-EPI)AfAm 22.30 Est GFR (CKD-EPI)NonAf 19.24 POC Glucometer 82 Random Glucose 77 Calcium 8.2 L Phosphorus 4.6 Magnesium 2.7 H B-Natriuretic Peptide TSH Free T4 Active Medications Generic Name Dose Route Start Last Admin Trade Name Freq PRN Reason Stop Dose Admin Amlodipine Besylate 5 mg 03/27/19 10:00 03/28/19 09:29 Norvasc - PO 5 mg DAILY AMRIT Administration Aspirin 81 mg 03/27/19 10:00 03/28/19 09:29 Asa - PO 81 mg DAILY AMRIT Administration Carvedilol 25 mg 03/27/19 10:00 03/28/19 09:29 Coreg - PO 25 mg BID AMRIT Administration Cholecalciferol 400 unit 03/27/19 10:00 03/28/19 10:22 Vitamin D3 - PO 400 unit DAILY AMRIT Administration Famotidine 20 mg 03/27/19 10:00 03/28/19 09:29 Pepcid - PO 20 mg DAILY AMRIT Administration Furosemide 40 mg 03/27/19 06:00 03/28/19 06:27 Lasix Injection - IVPUSH 40 mg BID@0600,1400 AMRIT Administration Heparin Sodium (Porcine) 5,000 unit 03/27/19 06:00 03/28/19 06:27 Heparin - SQ 5,000 unit TID AMRIT Administration Sodium Chloride 1,000 mls @ 75 mls/hr 03/27/19 12:45 03/27/19 13:43 Normal Saline - IV 75 mls/hr ASDIR AMRIT Administration Ceftriaxone Sodium 50 mls @ 200 mls/hr 03/28/19 09:12 03/28/19 09:27 Ceftriaxone 1 Gm-D5w Bag IVPB 200 mls/hr DAILY AMRIT Administration Protocol Insulin Aspart 1 vial 03/27/19 11:00 03/28/19 07:10 Novolog Vial Sliding Scale - SQ Not Given ACHS [facility] Protocol Insulin Detemir 25 units 03/27/19 11:13 03/28/19 09:30 Levemir Vial SQ Not Given DAILY AMRIT Letrozole 2.5 mg 03/27/19 10:00 03/28/19 09:27 Femara - PO 2.5 mg DAILY AMRIT Administration Levothyroxine Sodium 100 mcg 03/27/19 10:00 03/28/19 10:22 Synthroid - PO 100 mcg DAILY AMRIT Administration Multivitamins/Minerals/Vitamin C 1 tab 03/27/19 10:00 03/28/19 09:28 Tab-A-Vit - PO 1 tab DAILY AMRIT Administration Non-Formulary Medication 40 mg 03/27/19 10:00 03/27/19 11:04 Famotidine [Pepcid] PO 40 mg DAILY AMRIT Administration Polyethylene Glycol 17 gm 03/27/19 10:00 03/28/19 09:27 Miralax (For Daily Use) - PO 17 grams DAILY AMRIT Administration Pregabalin 25 mg 03/27/19 10:00 03/28/19 09:29 Lyrica - PO 25 mg BID AMRIT Administration Tramadol HCl 50 mg 03/27/19 09:11 03/27/19 21:58 Ultram - PO 50 mg TID PRN Administration PAIN ASSESSMENT/PLAN: This is an 89 year-old female with a PMH significant for HTN, IDDM, CKD, left breast CA, GERD, recurrent UTIs, lower extremity edema, chronic pain and hypothyroidism, who presents to the ER complaining for worsening lower extremity pain ,edema, weakness and difficulty with ambulation for 3 weeks. Lower ext cellulitis - Cont on Ceftriaxone - ordered US to r/o DVT - BC pending - WBC 11.9 from 15.2 yesterday (hx of elevated wbc ), afebrile - pain control - to keep exts elevated -PT eval CxR with congestion and lower ext edema , no reported hx of CHF - will check Echo and BNP - will monitor I&O's Chronic anemia -Patient unaware of what type of anemia she has. States it isnt Pernicious, Folic, or Iron deficiency. Sees Dr. Estrada - hgb 7.3 from 8.1 yesterday. Type and Screened. Will monitor - no signs of bleeding noted - stool OB Lower ext edema - recently started on lasix - will hold off Lasix in view of worsening renal functions Hypertension -continue amlodipine, carvedilol -will hold off Lasix, Losartan in view of worsening renal functions - will monitor BP closely IDDM - Insulin sliding scale - will cont on home dose Lantus - FS AC & HS - Consistent carb diet Chronic kidney disease - baseline normal - cre 2.2 today, poss due to diuretic use - will monitor renal functions Hx of Left breast cancer - on Letrozole GERD -Pepcid Hypothyroidism - will continue on levothyroxine - checked TSH 8.14 - will check free T4 Constipation - ordered Miralax Generalized weakness - PT eval Hyponatremia - resolved - NA 139 F/E/N - Diabetic , Na controlled diet - replace electrolytes as needed DVT prophylaxis: subq heparin Code status: Full code Visit type - Emergency Visit Emergency Visit: Yes ED Registration Date: 03/27/19 Care time: The patient presented to the Emergency Department on the above date and was hospitalized for further evaluation of their emergent condition. - New Patient This patient is new to me today: Yes Date on this admission: 03/28/19 - Critical Care Critical Care patient: No - Discharge Referral Referred to [facility] Med [facility] No
[2019-03-28] MEDS: SODIUM CHLORIDE 1,000 ML IV SCH (17:01)
[2019-03-28 17:15] LABS: LYMPH % 13.5 % (8-40); MCH 32.9 pg (25.7-33.7); MEAN CELL VOLUME 102.8 fl (80-96); MEAN PLT VOLUME 6.3 fl (7.5-11.1); PLATELET COUNT 345 K/MM3 (134-434); RBC 2.44 M/mm3 (3.60-5.2); RDW 15.4 % (11.6-15.6); WHITE BLOOD COUNT 12.9 K/mm3 (4.0-10.8)
[2019-03-28 17:17] LABS: NEUT % 66.8 % (42.8-82.8)
[2019-03-29] MEDS: HEPARIN NA (PORCINE) 5,000 UNITS/ML 1ML VIAL SQ SCH ×3 (06:40→21:42)
[2019-03-29] MEDS: FUROSEMIDE 40 MG/4 ML INJECTABLE VIAL IVPUSH SCH ×2 (06:40→13:11)
[2019-03-29] MEDS: INSULIN SLIDING SCALE (NOVOLOG) 1 VIAL SQ SCH ×4 (06:41→21:43)
[2019-03-29] MEDS ORDERED: LEVOTHYROXINE NA 100 MCG TABLET (FP) PO SCH ×2 (07:00→14:31)
[2019-03-29] MEDS: PATIENT'S OWN MEDICATION (NON-FORMULARY) (Famotidine [Pepcid] 40 MG) PO SCH (07:17)
[2019-03-29 08:50] LABS: HEMATOCRIT 24.4 % (32.4-45.2); HEMOGLOBIN 7.9 GM/dl (10.7-15.3); MCH 32.7 pg (25.7-33.7); MCHC 32.2 g/dl (32.0-36.0); MEAN CELL VOLUME 101.6 fl (80-96); MEAN PLT VOLUME 7.6 fl (7.5-11.1); PLATELET COUNT 337 K/MM3 (134-434); RBC 2.41 M/mm3 (3.60-5.2); RDW 15.6 % (11.6-15.6)
[2019-03-29 09:18] LABS: ALBUMIN 2.7 g/dl (3.4-5.0); BILIRUBIN,TOTAL 0.8 mg/dl (0.2-1); CALCIUM 8.3 mg/dl (8.5-10); CREATININE 2.2 mg/dl (0.55-1.3); MAGNESIUM 2.2 mg/dL (1.8-2.4); POTASSIUM 3.9 mmol/L (3.5-5.1); TOT PROT 5.7 g/dl (6.4-8.2)
[2019-03-29] MEDS: CEFTRIAXONE 1 G/50 ML PREMIX 50 ML IVPB SCH (09:30)
[2019-03-29] MEDS: amLODIPine BESYLATE 5 MG TABLET (FP) PO SCH (09:30)
[2019-03-29] MEDS: PREGABALIN 25 MG CAPSULE PO SCH ×2 (09:30→21:43)
[2019-03-29] MEDS: MULTIVITAMINS (DAILY MVI) TABLET (FP) PO SCH (09:30)
[2019-03-29] MEDS: CHOLECALCIFEROL (VIT D3) 400 UNIT (10 MCG) TABLET PO SCH (09:30)
[2019-03-29] MEDS: ASPIRIN 81 MG CHEWABLE TABLETS PO SCH (09:30)
[2019-03-29] MEDS: FAMOTIDINE 20 MG TABLET PO SCH (09:30)
[2019-03-29] MEDS: CARVEDILOL 12.5 MG TABLET (FP) PO SCH ×2 (09:33→21:42)
[2019-03-29] MEDS: LETROZOLE 2.5 MG TABLET (FP) PO SCH (09:41)
[2019-03-29] MEDS: POLYETHYLENE GLYCOL 3350 119 GM BTL PO SCH (09:41)
[2019-03-29] MEDS: INSULIN (LEVEMIR) 100 UNITS/ML UNITS SQ SCH (09:43)
[2019-03-29 10:07] LABS: PLATELET ESTIMATE ADEQUATE
[2019-03-29] MEDS ORDERED: SODIUM CHLORIDE 100 ML IVPB ONE ×3 (11:26→21:18)
[2019-03-29] MEDS ORDERED: AMPICILLIN NA/SULBACTAM NA 3 GM VIAL ONE ×3 (11:26→21:18)
[2019-03-29] MEDS: AMPICILLIN NA/SULBACTAM NA 3 GM in SODIUM CHLORIDE 100 ML IVPB SCH ×3 (11:27→21:42)
--- NOTE | 2019-03-29 12:34 | CON.ID ---
Consult Consult Specialty:: infectious diseases Referred by:: Jennifer Reason for Consultation:: b/l swelling and cellulitis of the leg,left worse than right - History of Present Illness Chief Complaint: swelling and pain in the legs History of Present Illness: 89 year-old female with a PMH significant for HTN, IDDM, CKD, left breast CA, GERD, recurrent UTIs, lower extremity edema, chronic pain and hypothyroidism, who was sent in by pmd for evaluation of worsening lower extremity edema,pain, weakness and difficulty with ambulation for 3 weeks. 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, Peripheral Neuropathy, Other (guillain barre syndrome, hx bacterial meningitis 1953) Cardio/Vascular: Yes: HTN Gastrointestinal: Yes: GERD Endocrine: Yes: Diabetes Mellitus - Alcohol/Substance Use Hx Alcohol Use: No - Smoking History Smoking history: Never smoked Have you smoked in the past 12 months: No Aproximately how many cigarettes per day: 0 Home Medications - Allergies Allergies/Adverse Reactions: Allergies Allergy/AdvReac Type Severity Reaction Status Date / Time NSAIDS (Non-Steroidal Allergy Severe Difficulty Verified 08/07/17 16:42 Anti-Inflamma Breathing ibuprofen Allergy Intermediate Rash Verified 08/07/17 16:42 meloxicam [From Mobic] Allergy Intermediate Rash Verified 08/07/17 16:42 rosiglitazone maleate Allergy Verified 08/07/17 16:42 [From Avandia] albuterol AdvReac Intermediate Elevated Verified 08/07/17 16:42 Blood Pressure epinephrine AdvReac Intermediate Elevated Verified 08/07/17 16:42 Blood Pressure oxycodone HCl [From Percodan] AdvReac Intermediate Elevated Verified 08/07/17 16 :42 Blood Pressure oxycodone terephthalate AdvReac Intermediate Elevated Verified 08/07/17 16:42 [From Percodan] Blood Pressure flu shot AdvReac Severe GILLAIN Uncoded 07/27/14 19:22 BARRE SYNDROME - Home Medications Home Medications: Ambulatory Orders Multivitamins [Multivit ([facility] Formulary)] 1 tab PO DAILY 06/10/14 Aspirin [ASA -] 81 mg PO DAILY #0 06/14/14 Amlodipine Besylate 5 mg PO DAILY 06/23/18 Calcium Carbonate/Vitamin D3 [Calcium 500-Vit D3 400 Tablet] 1 each PO DAILY Carvedilol [Coreg -] 25 mg PO BID 06/23/18 Cholecalciferol (Vitamin D3) [Vitamin D -] 400 unit PO DAILY 06/23/18 Famotidine [Pepcid] 40 mg PO DAILY 06/24/18 Furosemide [Lasix -] 40 mg PO BID 06/24/18 Letrozole 2.5 mg PO DAILY 06/24/18 Losartan Potassium 100 mg PO DAILY 06/24/18 Potassium Chloride [Klor-Con M20] 20 meq PO DAILY 06/24/18 Tramadol HCl 50 mg PO TID PRN 06/24/18 Insulin Glargine,Hum.rec.anlog [Lantus Solostar PEN (NF)] 25 units SQ DAILY Pregabalin [Lyrica] 25 mg PO BID 03/26/19 Review of Systems - Review of Systems Constitutional: reports: No Symptoms Eyes: reports: No Symptoms HENT: reports: No Symptoms Neck: reports: No Symptoms Cardiovascular: reports: No Symptoms Respiratory: reports: No Symptoms Gastrointestinal: reports: No Symptoms Genitourinary: reports: No Symptoms Musculoskeletal: reports: Muscle Pain Integumentary: reports: Change in Color, Erythema, Other Neurological: reports: No Symptoms Endocrine: reports: No Symptoms Hematology/Lymphatic: reports: No Symptoms Psychiatric: reports: No Symptoms Physical Exam Vital Signs: Vital Signs Temperature 98.2 F 03/29/19 11:55 Pulse Rate 73 03/29/19 11:55 Respiratory Rate 18 03/29/19 11:55 Blood Pressure 150/48 L 03/29/19 11:55 O2 Sat by Pulse Oximetry (%) 95 03/29/19 11:56 Constitutional: Yes: Calm, Mild Distress Eyes: Yes: Conjunctiva Clear HENT: Yes: Atraumatic, Normocephalic Neck: Yes: Supple, Trachea Midline Cardiovascular: Yes: Regular Rate and Rhythm Respiratory: Yes: Regular, CTA Bilaterally Gastrointestinal: Yes: Normal Bowel Sounds, Soft Musculoskeletal: Yes: WNL Extremities: Yes: Erythema, Other Edema: LLE: 1+, RLE: 1+ Integumentary: Yes: Erythema, Other Neurological: Yes: Alert, Oriented Psychiatric: Yes: Alert, Oriented Labs: CBC, BMP 03/29/19 07:25 03/29/19 07:25 Imaging - Results Chest X-ray: Report Reviewed, Image Reviewed Ultrasound: Report Reviewed, Image Reviewed Assessment/Plan this patient with multiple medical problems with bad cellulitis of the legs specially of the left with severe tenderness patient was started on ceftriaxone i am going to change the abx to zosyn elevation of the leg rest as per the team
--- NOTE | 2019-03-29 14:57 | PN ---
Documentation entered by Precious Ritter SCRIBE, acting as scribe for Krystyna Franklin NP. Physical Exam: SUBJECTIVE: Patient seen and examined at bedside. Describes stress incontinence of urine which is chronic. States legs are much better than they were when she came to the hospital. Has "full body neuralgia" so everything hurts. OBJECTIVE: Vital Signs Period Temp Pulse Resp BP Sys/Hernandez Pulse Ox Last 24 Hr 98.0 F-98.8 F 71-86 18-20 151-158/51-60 95-99 GENERAL: The patient is awake, alert, and fully oriented. HEAD: Normal with no signs of trauma. LUNGS: CTA HEART: Regular rate and rhythm, S1, S2 ABDOMEN: Soft, nontender, nondistended LOWER EXTREMITIES: Bilateral 3+ edema, tenderness both legs, erythematous and warm to touch L>R, venous stasis changes NEUROLOGICAL: Cranial nerves II through XII grossly intact. Normal speech Laboratory Results - last 24 hr 03/27/19 03/28/19 03/28/19 15:35 06:00 12:03 WBC RBC Hgb Hct MCV MCH MCHC RDW Plt Count MPV Absolute Neuts (auto) Neutrophils % Lymphocytes % Sodium 139 Potassium 4.1 Chloride 108 H Carbon Dioxide 24 Anion Gap 7 L BUN 59.2 H Creatinine 2.2 H Est GFR (CKD-EPI)AfAm 22.30 Est GFR (CKD-EPI)NonAf 19.24 POC Glucometer 151 Random Glucose 77 Calcium 8.2 L Phosphorus 4.6 Magnesium 2.7 H Stool Occult Blood Negative Blood Type Antibody Screen 03/28/19 03/28/19 03/28/19 13:20 16:44 17:12 WBC 12.9 H RBC 2.44 L Hgb 8.0 L Hct 25.0 L MCV 102.8 H MCH 32.9 MCHC 32.0 RDW 15.4 Plt Count 345 MPV 6.3 L Absolute Neuts (auto) 8.7 Neutrophils % 66.8 Lymphocytes % 13.5 Sodium Potassium Chloride Carbon Dioxide Anion Gap BUN Creatinine Est GFR (CKD-EPI)AfAm Est GFR (CKD-EPI)NonAf POC Glucometer 236 Random Glucose Calcium Phosphorus Magnesium Stool Occult Blood Blood Type O NEGATIVE Antibody Screen Negative 03/28/19 03/29/19 20:57 06:26 WBC RBC Hgb Hct MCV MCH MCHC RDW Plt Count MPV Absolute Neuts (auto) Neutrophils % Lymphocytes % Sodium Potassium Chloride Carbon Dioxide Anion Gap BUN Creatinine Est GFR (CKD-EPI)AfAm Est GFR (CKD-EPI)NonAf POC Glucometer 139 145 Random Glucose Calcium Phosphorus Magnesium Stool Occult Blood Blood Type Antibody Screen Active Medications Generic Name Dose Route Start Last Admin Trade Name Freq PRN Reason Stop Dose Admin Amlodipine Besylate 5 mg 03/27/19 10:00 03/28/19 09:29 Norvasc - PO 5 mg DAILY AMRIT Administration Aspirin 81 mg 03/27/19 10:00 03/28/19 09:29 Asa - PO 81 mg DAILY AMRIT Administration Carvedilol 25 mg 03/27/19 10:00 03/28/19 21:07 Coreg - PO 25 mg BID AMRIT Administration Cholecalciferol 400 unit 03/27/19 10:00 03/28/19 10:22 Vitamin D3 - PO 400 unit DAILY AMRIT Administration Famotidine 20 mg 03/27/19 10:00 03/28/19 09:29 Pepcid - PO 20 mg DAILY AMRIT Administration Furosemide 40 mg 03/27/19 06:00 03/29/19 06:40 Lasix Injection - IVPUSH 40 mg BID@0600,1400 AMRIT Administration Heparin Sodium (Porcine) 5,000 unit 03/27/19 06:00 03/29/19 06:40 Heparin - SQ 5,000 unit TID AMRIT Administration Sodium Chloride 1,000 mls @ 75 mls/hr 03/27/19 12:45 03/28/19 17:01 Normal Saline - IV Not Given ASDIR AMRIT Ceftriaxone Sodium 50 mls @ 200 mls/hr 03/28/19 09:12 03/28/19 09:27 Ceftriaxone 1 Gm-D5w Bag IVPB 200 mls/hr DAILY AMRIT Administration Protocol Insulin Aspart 1 vial 03/27/19 11:00 03/29/19 06:41 Novolog Vial Sliding Scale - SQ Not Given ACHS [facility] Protocol Insulin Detemir 25 units 03/27/19 11:13 03/28/19 12:19 Levemir Vial SQ 25 units DAILY AMRIT Administration Letrozole 2.5 mg 03/27/19 10:00 03/28/19 09:27 Femara - PO 2.5 mg DAILY AMRIT Administration Levothyroxine Sodium 100 mcg 03/29/19 07:00 03/29/19 06:41 Synthroid - PO 100 mcg DAILY@0700 AMRIT Administration Multivitamins/Minerals/Vitamin C 1 tab 03/27/19 10:00 03/28/19 09:28 Tab-A-Vit - PO 1 tab DAILY AMRIT Administration Polyethylene Glycol 17 gm 03/27/19 10:00 03/28/19 09:27 Miralax (For Daily Use) - PO 17 grams DAILY AMRIT Administration Pregabalin 25 mg 03/27/19 10:00 03/28/19 21:07 Lyrica - PO 25 mg BID AMRIT Administration Tramadol HCl 50 mg 03/27/19 09:11 03/27/19 21:58 Ultram - PO 50 mg TID PRN Administration PAIN PCP: Dr. Salinas ASSESSMENT/PLAN 88 year-old female with a PMH significant for HTN, IDDM, CKD, left breast CA, GERD, hypothyroidism, and chronic leukocytosis. Admitted for lower extremity cellulitis and acute on chronic diastolic heart failure. Lower extremity cellulitis Chronic leukocytosis --both legs red, hot, swollen, L>R --afebrile --WBC spike from baseline -->23k --stop ceftriaxone, start Unasyn --ID following Diastolic heart failure, acute on chronic --August 2012 Echo: LV normal, diastolic dysfunction; RV not well-visualized; trace MR; mild TR --lower extremity edema and congestive changes on CXR --echo pending --continue Lasix IVP 40mg BID; weight down 4.5kg since admission --cardiology consult requested Acute on chronic kidney injury --Cr 2.4 on admission, 2.2 today, baseline 1.2 --continue to trend Hypertension --BP stable, continue carvedilol, amlodipine IDDM --Novolog sliding scale coverage Left breast cancer --continue letrozole GERD --continue pepcid Hypothyroidism --increase levothyroxine 112mcg daily FEN Fluids: PO intake adequate Electrolytes: replete as indicated Nutrition: diabetic, low sodium DVT prophylaxis: subq heparin Physical therapy Dispo: continues to require inpatient care. Full code. Visit type - Emergency Visit Emergency Visit: Yes ED Registration Date: 03/27/19 Care time: The patient presented to the Emergency Department on the above date and was hospitalized for further evaluation of their emergent condition. - New Patient This patient is new to me today: Yes Date on this admission: 03/29/19 - Critical Care Critical Care patient: No Krystyna Franklin NP: This documentation has been prepared by the [employer] Maria, SCRIBE, under my direction and personally reviewed by me in its entirety. I confirm that the documentation accurately reflects all work, treatment, procedures, and medical decision making performed by me.
--- NOTE | 2019-03-29 15:02 | CON.CARD ---
Consult Consult Specialty:: Cardiology Referred by:: Medicine Reason for Consultation:: edema - History of Present Illness Chief Complaint: edema History of Present Illness: 89F h/o HTN, DM, CKD, L breast Ca, GERD, recurrent UTI, edema, hypothyroidism p/ w worsening edema, pain, weakness. No chest pain, palps, dizziness, dyspnea. Has been receiving IV lasix. 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, Peripheral Neuropathy, Other (guillain barre syndrome, hx bacterial meningitis 1953) Cardio/Vascular: Yes: HTN Gastrointestinal: Yes: GERD Endocrine: Yes: Diabetes Mellitus - Alcohol/Substance Use Hx Alcohol Use: No - Smoking History Smoking history: Never smoked Have you smoked in the past 12 months: No Aproximately how many cigarettes per day: 0 Home Medications - Allergies Allergies/Adverse Reactions: Allergies Allergy/AdvReac Type Severity Reaction Status Date / Time NSAIDS (Non-Steroidal Allergy Severe Difficulty Verified 08/07/17 16:42 Anti-Inflamma Breathing ibuprofen Allergy Intermediate Rash Verified 08/07/17 16:42 meloxicam [From Mobic] Allergy Intermediate Rash Verified 08/07/17 16:42 rosiglitazone maleate Allergy Verified 08/07/17 16:42 [From Avandia] albuterol AdvReac Intermediate Elevated Verified 08/07/17 16:42 Blood Pressure epinephrine AdvReac Intermediate Elevated Verified 08/07/17 16:42 Blood Pressure oxycodone HCl [From Percodan] AdvReac Intermediate Elevated Verified 08/07/17 16 :42 Blood Pressure oxycodone terephthalate AdvReac Intermediate Elevated Verified 08/07/17 16:42 [From Percodan] Blood Pressure flu shot AdvReac Severe GILLAIN Uncoded 07/27/14 19:22 BARRE SYNDROME - Home Medications Home Medications: Ambulatory Orders Multivitamins [Multivit ([facility] Formulary)] 1 tab PO DAILY 06/10/14 Aspirin [ASA -] 81 mg PO DAILY #0 06/14/14 Amlodipine Besylate 5 mg PO DAILY 06/23/18 Calcium Carbonate/Vitamin D3 [Calcium 500-Vit D3 400 Tablet] 1 each PO DAILY Carvedilol [Coreg -] 25 mg PO BID 06/23/18 Cholecalciferol (Vitamin D3) [Vitamin D -] 400 unit PO DAILY 06/23/18 Famotidine [Pepcid] 40 mg PO DAILY 06/24/18 Furosemide [Lasix -] 40 mg PO BID 06/24/18 Letrozole 2.5 mg PO DAILY 06/24/18 Losartan Potassium 100 mg PO DAILY 06/24/18 Potassium Chloride [Klor-Con M20] 20 meq PO DAILY 06/24/18 Tramadol HCl 50 mg PO TID PRN 06/24/18 Insulin Glargine,Hum.rec.anlog [Lantus Solostar PEN (NF)] 25 units SQ DAILY Pregabalin [Lyrica] 25 mg PO BID 03/26/19 Vital Signs: Vital Signs Temperature 98.2 F 03/29/19 11:55 Pulse Rate 73 03/29/19 11:55 Respiratory Rate 18 03/29/19 11:55 Blood Pressure 150/48 L 03/29/19 11:55 O2 Sat by Pulse Oximetry (%) 95 03/29/19 11:56 - Other Data Labs, Other Data: CBC, BMP 03/29/19 07:25 03/29/19 07:25 Assessment/Plan EKG: sinus, first deg AVB, LAD, ILBBB, no ischemic changes CXR: + congestive changes edema, acute heart failure exacerbation (EF not known) - CXR with congestion, elevated BNP - echo pending - wt down, Cr stable, cont IV lasix lower ext cellulitis - manage per ID, primary DM - manage per primary HTN - cont current meds - if BP remains elevated with diuresis consider increasing amlodipine, monitoring for now - holding losartan in setting of MAURICE MAURICE - Cr 2.4 ->2.2 (baseline 1.2) - may be prerenal, ?cardiorenal - monitor Cr with diuresis
--- NOTE | 2019-03-29 17:31 | ECHO ---
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 Procedure A complete two-dimensional transthoracic echocardiogram was performed (2D, M-mode, Doppler and color flow Doppler). Technically limited study. Left Ventricle The left ventricle is normal in size. Left ventricular systolic function is normal. Ejection Fraction = 60- 65%. No regional wall motion abnormalities noted. Right Ventricle The right ventricle is normal size. The right ventricular systolic function is normal. Atria The left atrial size is normal. Right atrial size is normal. Mitral Valve There is mild mitral valve thickening. There is mild mitral annular calcification. There is mild mitr al regurgitation. Tricuspid Valve The tricuspid valve is normal in structure and function. There is mild tricuspid regurgitation. Pulmo nary artery systolic pressure is at least 49 mmHg if RA pressure is assumed 3 mmHg. Aortic Valve There is mild aortic sclerosis.;. No aortic regurgitation is present. Pulmonic Valve The pulmonic valve is not well visualized. Great Vessels The aortic root is normal size. Pericardium/Pleura There is no pericardial effusion. Interpretation Summary The left ventricle is normal in size. Left ventricular systolic function is normal. No regional wall motion abnormalities noted. Ejection Fraction = 60-65%. The right ventricular systolic function is normal. The left atrial size is normal. Right atrial size is normal. There is mild mitral valve thickening. There is mild mitral annular calcification. There is mild mitral regurgitation. There is mild tricuspid regurgitation. Pulmonary artery systolic pressure is at least 49 mmHg if RA pressure is assumed 3 mmHg There is mild aortic sclerosis. There is no pericardial effusion. Clay Tran MD 03/29/2019 05:31 PM
[2019-03-30] MEDS ORDERED: AMPICILLIN NA/SULBACTAM NA 3 GM VIAL ONE ×4 (02:22→21:45)
[2019-03-30] MEDS ORDERED: SODIUM CHLORIDE 100 ML IVPB ONE ×4 (02:22→21:45)
[2019-03-30] MEDS: AMPICILLIN NA/SULBACTAM NA 3 GM in SODIUM CHLORIDE 100 ML IVPB SCH ×4 (02:23→21:47)
[2019-03-30] MEDS: FUROSEMIDE 40 MG/4 ML INJECTABLE VIAL IVPUSH SCH ×2 (06:04→13:06)
[2019-03-30] MEDS: HEPARIN NA (PORCINE) 5,000 UNITS/ML 1ML VIAL SQ SCH ×3 (06:04→21:47)
[2019-03-30] MEDS: LEVOTHYROXINE NA 112 MCG TABLET (FP) PO SCH (06:05)
[2019-03-30] MEDS: INSULIN SLIDING SCALE (NOVOLOG) 1 VIAL SQ SCH ×3 (07:09→16:43)
[2019-03-30 08:42] LABS: BASO % 0.2 % (0-2.0); EOS % 6.7 % (0-4.5); HEMATOCRIT 23.6 % (32.4-45.2); HEMOGLOBIN 7.7 GM/dl (10.7-15.3); MCH 33.3 pg (25.7-33.7); MCHC 32.8 g/dl (32.0-36.0); MEAN CELL VOLUME 101.3 fl (80-96); MEAN PLT VOLUME 6.9 fl (7.5-11.1); MONO % 12.7 % (3.8-10.2); NEUT % 68.4 % (42.8-82.8); PLATELET COUNT 334 K/MM3 (134-434); RBC 2.33 M/mm3 (3.60-5.2); RDW 15.7 % (11.6-15.6); WHITE BLOOD COUNT 15.7 K/mm3 (4.0-10.8)
[2019-03-30 08:55] LABS: ALBUMIN 2.6 g/dl (3.4-5.0); BILIRUBIN,TOTAL 0.2 mg/dl (0.2-1); CALCIUM 7.7 mg/dl (8.5-10); CREATININE 2.1 mg/dl (0.55-1.3); MAGNESIUM 1.9 mg/dL (1.8-2.4); POTASSIUM 3.5 mmol/L (3.5-5.1); TOT PROT 5.5 g/dl (6.4-8.2)
--- NOTE | 2019-03-30 09:11 | PN ---
Progress Note, Physician Chief Complaint: feels improved remained afebrile History of Present Illness: 88 year-old female with a PMH significant for HTN, IDDM, CKD, left breast CA, GERD, hypothyroidism, and chronic leukocytosis. Admitted for lower extremity cellulitis and acute on chronic diastolic heart failure. - Current Medication List Current Medications: Active Medications Amlodipine Besylate (Norvasc -) 5 mg PO DAILY [facility] Last Admin: 03/29/19 09:30 Dose: 5 mg Aspirin (Asa -) 81 mg PO DAILY [facility] Last Admin: 03/29/19 09:30 Dose: 81 mg Carvedilol (Coreg -) 25 mg PO BID [facility] Last Admin: 03/29/19 21:42 Dose: 25 mg Cholecalciferol (Vitamin D3 -) 400 unit PO DAILY [facility] Last Admin: 03/29/19 09:30 Dose: 400 unit Famotidine (Pepcid -) 20 mg PO DAILY [facility] Last Admin: 03/29/19 09:30 Dose: 20 mg Furosemide (Lasix Injection -) 40 mg IVPUSH BID@0600,1400 [facility] Last Admin: 03/30/19 06:04 Dose: 40 mg Heparin Sodium (Porcine) (Heparin -) 5,000 unit SQ TID [facility] Last Admin: 03/30/19 06:04 Dose: 5,000 unit Ampicillin Sodium/Sulbactam (Sodium 3 gm/ Sodium Chloride) 100 mls @ 200 mls/ hr IVPB Q6H-IV [facility] Last Admin: 03/30/19 08:09 Dose: 200 mls/hr Insulin Aspart (Novolog Vial Sliding Scale -) 1 vial SQ ACHS [facility]; Protocol Last Admin: 03/30/19 07:09 Dose: 2 units Insulin Detemir (Levemir Vial) 25 units SQ DAILY [facility] Last Admin: 03/29/19 09:43 Dose: 25 units Letrozole (Femara -) 2.5 mg PO DAILY [facility] Last Admin: 03/29/19 09:41 Dose: 2.5 mg Levothyroxine Sodium (Synthroid -) 112 mcg PO DAILY@0700 [facility] Last Admin: 03/30/19 06:05 Dose: 112 mcg Multivitamins/Minerals/Vitamin C (Tab-A-Vit -) 1 tab PO DAILY [facility] Last Admin: 03/29/19 09:30 Dose: 1 tab Polyethylene Glycol (Miralax (For Daily Use) -) 17 gm PO DAILY [facility] Last Admin: 03/29/19 09:41 Dose: 17 grams Pregabalin (Lyrica -) 25 mg PO BID [facility] Last Admin: 03/29/19 21:43 Dose: 25 mg - Objective Vital Signs: Vital Signs Temperature 97.8 F 03/30/19 06:17 Pulse Rate 85 03/30/19 06:17 Respiratory Rate 18 03/30/19 06:17 Blood Pressure 154/55 L 03/30/19 06:17 O2 Sat by Pulse Oximetry (%) 94 L 03/30/19 06:17 Elderly F comfortable not in distress HEENT: Mm moist, no anemia, PERRLA EOMI NECK: No JVd No Bruit CHEST: CTA B/L CVS; SS2 R no m/g/r ABD: No distention, non tender BS + EXT: B/L Cellulitis, regressing edema. 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 Problems reviewed: Yes Code(s): L03.119 - CELLULITIS OF UNSPECIFIED PART OF LIMB (2) HTN (hypertension) Assessment/Plan: Well-controlled on current regimen continue cardiology recommendations. Problems reviewed: Yes Code(s): I10 - ESSENTIAL (PRIMARY) HYPERTENSION (3) Diabetes Assessment/Plan: Continue current regimen of meds glycemic control as needed Problems reviewed: Yes Code(s): E11.9 - TYPE 2 DIABETES MELLITUS WITHOUT COMPLICATIONS Qualifiers: Diabetes mellitus type: type 2 (4) History of CVA with residual deficit Assessment/Plan: Chronic no active issues Problems reviewed: Yes Code(s): I69.30 - UNSPECIFIED SEQUELAE OF CEREBRAL INFARCTION (5) Bilateral leg edema Assessment/Plan: Due to decompensated heart failure continue current management Problems reviewed: Yes Code(s): R60.0 - LOCALIZED EDEMA Assessment/Plan Cont current Abx F/U CBC, BMP Possible Dc in am.
[2019-03-30] MEDS: FAMOTIDINE 20 MG TABLET PO SCH (09:32)
[2019-03-30] MEDS: ASPIRIN 81 MG CHEWABLE TABLETS PO SCH (09:32)
[2019-03-30] MEDS: amLODIPine BESYLATE 5 MG TABLET (FP) PO SCH (09:32)
[2019-03-30] MEDS: MULTIVITAMINS (DAILY MVI) TABLET (FP) PO SCH (09:32)
[2019-03-30] MEDS: LETROZOLE 2.5 MG TABLET (FP) PO SCH (09:32)
[2019-03-30] MEDS: CHOLECALCIFEROL (VIT D3) 400 UNIT (10 MCG) TABLET PO SCH (09:32)
[2019-03-30] MEDS: POLYETHYLENE GLYCOL 3350 119 GM BTL PO SCH (09:33)
[2019-03-30] MEDS: INSULIN (LEVEMIR) 100 UNITS/ML UNITS SQ SCH (09:33)
[2019-03-30] MEDS: CARVEDILOL 12.5 MG TABLET (FP) PO SCH ×2 (09:33→21:47)
[2019-03-30] MEDS: PREGABALIN 25 MG CAPSULE PO SCH ×2 (09:33→21:47)
--- NOTE | 2019-03-30 10:33 | PN ---
Progress Note (short form) - Note Progress Note: s: no chest pain, palps, dizziness, dyspnea. edema improving. Current Medications Amlodipine Besylate (Norvasc -) 5 mg PO DAILY [facility] Last Admin: 03/30/19 09:32 Dose: 5 mg Aspirin (Asa -) 81 mg PO DAILY [facility] Last Admin: 03/30/19 09:32 Dose: 81 mg Carvedilol (Coreg -) 25 mg PO BID [facility] Last Admin: 03/30/19 09:33 Dose: 25 mg Cholecalciferol (Vitamin D3 -) 400 unit PO DAILY [facility] Last Admin: 03/30/19 09:32 Dose: 400 unit Famotidine (Pepcid -) 20 mg PO DAILY [facility] Last Admin: 03/30/19 09:32 Dose: 20 mg Furosemide (Lasix Injection -) 40 mg IVPUSH BID@0600,1400 [facility] Last Admin: 03/30/19 06:04 Dose: 40 mg Heparin Sodium (Porcine) (Heparin -) 5,000 unit SQ TID [facility] Last Admin: 03/30/19 06:04 Dose: 5,000 unit Ampicillin Sodium/Sulbactam (Sodium 3 gm/ Sodium Chloride) 100 mls @ 200 mls/ hr IVPB Q6H-IV [facility] Last Admin: 03/30/19 08:09 Dose: 200 mls/hr Insulin Aspart (Novolog Vial Sliding Scale -) 1 vial SQ ACHS [facility]; Protocol Last Admin: 03/30/19 07:09 Dose: 2 units Insulin Detemir (Levemir Vial) 25 units SQ DAILY [facility] Last Admin: 03/30/19 09:33 Dose: 25 units Letrozole (Femara -) 2.5 mg PO DAILY [facility] Last Admin: 03/30/19 09:32 Dose: 2.5 mg Levothyroxine Sodium (Synthroid -) 112 mcg PO DAILY@0700 [facility] Last Admin: 03/30/19 06:05 Dose: 112 mcg Multivitamins/Minerals/Vitamin C (Tab-A-Vit -) 1 tab PO DAILY [facility] Last Admin: 03/30/19 09:32 Dose: 1 tab Polyethylene Glycol (Miralax (For Daily Use) -) 17 gm PO DAILY [facility] Last Admin: 03/30/19 09:33 Dose: 17 grams Pregabalin (Lyrica -) 25 mg PO BID [facility] Last Admin: 03/30/19 09:33 Dose: 25 mg Vital Signs Period Temp Pulse Resp BP Sys/Hernandez Pulse Ox Last 24 Hr 97.6 F-98.3 F 73-88 18-18 145-162/46-55 94-95 nad ncat no JVD nl S1, S2, RRR CTA with crackles at bases soft, nt, nd +bs 1+ edema to knees bilaterally aox3 not agitated no jaundice, diaphoresis Assessment/Plan EKG: sinus, first deg AVB, LAD, ILBBB, no ischemic changes echo 03/2019 nl LV function, mild MR, mild TR, PASP at least 49 mmHg CXR: + congestive changes edema, acute diastolic heart failure exacerbation - CXR with congestion, elevated BNP - echo nl LV function - wt down, Cr stable, cont IV lasix lower ext cellulitis - manage per ID, primary DM - manage per primary HTN - cont current meds - if BP remains elevated with diuresis consider increasing amlodipine, monitoring for now - holding losartan in setting of MAURICE MAURICE - Cr 2.4 ->2.2 (baseline 1.2) - may be prerenal, ?cardiorenal - monitor Cr with diuresis
--- NOTE | 2019-03-30 12:50 | PN ---
Progress Note, Physician History of Present Illness: stable legs still angry red - Current Medication List Current Medications: Active Medications Amlodipine Besylate (Norvasc -) 5 mg PO DAILY [facility] Last Admin: 03/30/19 09:32 Dose: 5 mg Aspirin (Asa -) 81 mg PO DAILY [facility] Last Admin: 03/30/19 09:32 Dose: 81 mg Carvedilol (Coreg -) 25 mg PO BID [facility] Last Admin: 03/30/19 09:33 Dose: 25 mg Cholecalciferol (Vitamin D3 -) 400 unit PO DAILY [facility] Last Admin: 03/30/19 09:32 Dose: 400 unit Famotidine (Pepcid -) 20 mg PO DAILY [facility] Last Admin: 03/30/19 09:32 Dose: 20 mg Furosemide (Lasix Injection -) 40 mg IVPUSH BID@0600,1400 [facility] Last Admin: 03/30/19 06:04 Dose: 40 mg Heparin Sodium (Porcine) (Heparin -) 5,000 unit SQ TID [facility] Last Admin: 03/30/19 06:04 Dose: 5,000 unit Ampicillin Sodium/Sulbactam (Sodium 3 gm/ Sodium Chloride) 100 mls @ 200 mls/ hr IVPB Q6H-IV [facility] Last Admin: 03/30/19 08:09 Dose: 200 mls/hr Vancomycin HCl 1,000 mg/ (Dextrose) 250 mls @ 166.667 mls/hr IVPB ONCE ONE; Protocol Stop: 03/30/19 14:18 Insulin Aspart (Novolog Vial Sliding Scale -) 1 vial SQ ACHS [facility]; Protocol Last Admin: 03/30/19 12:00 Dose: 4 units Insulin Detemir (Levemir Vial) 25 units SQ DAILY [facility] Last Admin: 03/30/19 09:33 Dose: 25 units Letrozole (Femara -) 2.5 mg PO DAILY [facility] Last Admin: 03/30/19 09:32 Dose: 2.5 mg Levothyroxine Sodium (Synthroid -) 112 mcg PO DAILY@0700 [facility] Last Admin: 03/30/19 06:05 Dose: 112 mcg Multivitamins/Minerals/Vitamin C (Tab-A-Vit -) 1 tab PO DAILY [facility] Last Admin: 03/30/19 09:32 Dose: 1 tab Polyethylene Glycol (Miralax (For Daily Use) -) 17 gm PO DAILY [facility] Last Admin: 03/30/19 09:33 Dose: 17 grams Pregabalin (Lyrica -) 25 mg PO BID [facility] Last Admin: 03/30/19 09:33 Dose: 25 mg - Objective Vital Signs: Vital Signs Temperature 97.8 F 03/30/19 06:17 Pulse Rate 85 03/30/19 06:17 Respiratory Rate 18 03/30/19 09:00 Blood Pressure 154/55 L 03/30/19 06:17 O2 Sat by Pulse Oximetry (%) 95 03/30/19 09:00 Constitutional: Yes: No Distress, Calm Cardiovascular: Yes: S1, S2 Respiratory: Yes: Regular, CTA Bilaterally Gastrointestinal: Yes: Normal Bowel Sounds, Soft Genitourinary: Yes: Other Musculoskeletal: Yes: WNL Extremities: Yes: Erythema Integumentary: Yes: Erythema, Other (left leg more angry) Neurological: Yes: Alert, Oriented Labs: CBC, BMP 03/30/19 07:05 03/30/19 07:05 Assessment/Plan Problem List - Problems (1) Lower extremity cellulitis Code(s): L03.119 - CELLULITIS OF UNSPECIFIED PART OF LIMB (2) HTN (hypertension) Code(s): I10 - ESSENTIAL (PRIMARY) HYPERTENSION (3) Diabetes Code(s): E11.9 - TYPE 2 DIABETES MELLITUS WITHOUT COMPLICATIONS Qualifiers: Diabetes mellitus type: type 2 (4) History of CVA with residual deficit Code(s): I69.30 - UNSPECIFIED SEQUELAE OF CEREBRAL INFARCTION patients leg still angry i am going to give her one dose of vanco elevation of leg rest as per the team
[2019-03-30] MEDS ORDERED: VANCOMYCIN 1 GRAM (PRE-DOCKED) 1,000 MG/250 ML BAG IVPB ONE ×2 (13:15)
[2019-03-30] MEDS: ACETAMINOPHEN 325 MG TABLET (FP) PO PRN (21:48)
[2019-03-31] MEDS: INSULIN SLIDING SCALE (NOVOLOG) 1 VIAL SQ SCH ×5 (00:05→22:54)
[2019-03-31] MEDS ORDERED: SODIUM CHLORIDE 100 ML IVPB ONE ×4 (03:15→21:28)
[2019-03-31] MEDS ORDERED: AMPICILLIN NA/SULBACTAM NA 3 GM VIAL ONE ×4 (03:15→21:28)
[2019-03-31] MEDS: AMPICILLIN NA/SULBACTAM NA 3 GM in SODIUM CHLORIDE 100 ML IVPB SCH ×4 (03:17→22:38)
[2019-03-31] MEDS: LEVOTHYROXINE NA 112 MCG TABLET (FP) PO SCH (06:59)
[2019-03-31] MEDS: FUROSEMIDE 40 MG/4 ML INJECTABLE VIAL IVPUSH SCH ×2 (06:59→13:14)
[2019-03-31] MEDS: HEPARIN NA (PORCINE) 5,000 UNITS/ML 1ML VIAL SQ SCH ×3 (06:59→22:39)
--- NOTE | 2019-03-31 09:09 | PN ---
Progress Note, Physician Chief Complaint: feels improved remained afebrile History of Present Illness: 88 year-old female with a PMH significant for HTN, IDDM, CKD, left breast CA, GERD, hypothyroidism, and chronic leukocytosis. Admitted for lower extremity cellulitis and acute on chronic diastolic heart failure. - Current Medication List Current Medications: Active Medications Acetaminophen (Tylenol -) 650 mg PO Q6H PRN PRN Reason: PAIN LEVEL 6-10 Last Admin: 03/30/19 21:48 Dose: 650 mg Amlodipine Besylate (Norvasc -) 5 mg PO DAILY [facility] Last Admin: 03/30/19 09:32 Dose: 5 mg Aspirin (Asa -) 81 mg PO DAILY [facility] Last Admin: 03/30/19 09:32 Dose: 81 mg Carvedilol (Coreg -) 25 mg PO BID [facility] Last Admin: 03/30/19 21:47 Dose: 25 mg Cholecalciferol (Vitamin D3 -) 400 unit PO DAILY [facility] Last Admin: 03/30/19 09:32 Dose: 400 unit Famotidine (Pepcid -) 20 mg PO DAILY [facility] Last Admin: 03/30/19 09:32 Dose: 20 mg Furosemide (Lasix Injection -) 40 mg IVPUSH BID@0600,1400 [facility] Last Admin: 03/31/19 06:59 Dose: 40 mg Heparin Sodium (Porcine) (Heparin -) 5,000 unit SQ TID [facility] Last Admin: 03/31/19 06:59 Dose: 5,000 unit Ampicillin Sodium/Sulbactam (Sodium 3 gm/ Sodium Chloride) 100 mls @ 200 mls/ hr IVPB Q6H-IV [facility] Last Admin: 03/31/19 03:17 Dose: 200 mls/hr Insulin Aspart (Novolog Vial Sliding Scale -) 1 vial SQ ACHS [facility]; Protocol Last Admin: 03/31/19 07:08 Dose: Not Given Insulin Detemir (Levemir Vial) 25 units SQ DAILY [facility] Last Admin: 03/30/19 09:33 Dose: 25 units Letrozole (Femara -) 2.5 mg PO DAILY [facility] Last Admin: 03/30/19 09:32 Dose: 2.5 mg Levothyroxine Sodium (Synthroid -) 112 mcg PO DAILY@0700 [facility] Last Admin: 03/31/19 06:59 Dose: 112 mcg Multivitamins/Minerals/Vitamin C (Tab-A-Vit -) 1 tab PO DAILY [facility] Last Admin: 03/30/19 09:32 Dose: 1 tab Polyethylene Glycol (Miralax (For Daily Use) -) 17 gm PO DAILY [facility] Last Admin: 03/30/19 09:33 Dose: 17 grams Pregabalin (Lyrica -) 25 mg PO BID [facility] Last Admin: 03/30/19 21:47 Dose: 25 mg - Objective Vital Signs: Vital Signs Temperature 97.5 F L 03/31/19 06:00 Pulse Rate 74 03/31/19 06:00 Respiratory Rate 18 03/31/19 06:00 Blood Pressure 170/55 L 03/31/19 06:00 O2 Sat by Pulse Oximetry (%) 100 03/31/19 06:00 Elderly F comfortable not in distress HEENT: Mm moist, no anemia, PERRLA EOMI NECK: No JVd No Bruit CHEST: CTA B/L CVS; SS2 R no m/g/r ABD: No distention, non tender BS + EXT: B/L Cellulitis, regressing edema. 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 Code(s): L03.119 - CELLULITIS OF UNSPECIFIED PART OF LIMB (2) HTN (hypertension) Assessment/Plan: Well-controlled on current regimen continue cardiology recommendations. Code(s): I10 - ESSENTIAL (PRIMARY) HYPERTENSION (3) Diabetes Assessment/Plan: Continue current regimen of meds glycemic control as needed Code(s): E11.9 - TYPE 2 DIABETES MELLITUS WITHOUT COMPLICATIONS Qualifiers: Diabetes mellitus type: type 2 (4) History of CVA with residual deficit Assessment/Plan: Chronic no active issues Code(s): I69.30 - UNSPECIFIED SEQUELAE OF CEREBRAL INFARCTION (5) Breast cancer Assessment/Plan: On Femara. Problems reviewed: Yes Code(s): C50.919 - MALIGNANT NEOPLASM OF UNSP SITE OF UNSPECIFIED FEMALE BREAST (6) Acute kidney injury superimposed on CKD Assessment/Plan: Renal functions are stable follow-up renal ultrasound. Problems reviewed: Yes Code(s): N17.9 - ACUTE KIDNEY FAILURE, UNSPECIFIED; N18.9 - CHRONIC KIDNEY DISEASE, UNSPECIFIED
[2019-03-31] MEDS: CARVEDILOL 12.5 MG TABLET (FP) PO SCH ×2 (09:35→22:39)
[2019-03-31] MEDS: PREGABALIN 25 MG CAPSULE PO SCH ×2 (09:35→22:39)
[2019-03-31] MEDS: CHOLECALCIFEROL (VIT D3) 400 UNIT (10 MCG) TABLET PO SCH (09:35)
[2019-03-31] MEDS: INSULIN (LEVEMIR) 100 UNITS/ML UNITS SQ SCH (09:35)
[2019-03-31] MEDS: amLODIPine BESYLATE 5 MG TABLET (FP) PO SCH (09:36)
[2019-03-31] MEDS: LETROZOLE 2.5 MG TABLET (FP) PO SCH (09:36)
[2019-03-31] MEDS: FAMOTIDINE 20 MG TABLET PO SCH (09:36)
[2019-03-31] MEDS: POLYETHYLENE GLYCOL 3350 119 GM BTL PO SCH (09:36)
[2019-03-31] MEDS: MULTIVITAMINS (DAILY MVI) TABLET (FP) PO SCH (09:36)
[2019-03-31] MEDS: ASPIRIN 81 MG CHEWABLE TABLETS PO SCH (09:36)
[2019-03-31 10:35] LABS: BASO % 1.2 % (0-2.0); EOS % 7.3 % (0-4.5); HEMATOCRIT 25.3 % (32.4-45.2); LYMPH % 9.1 % (8-40); MCH 32.4 pg (25.7-33.7); MCHC 31.5 g/dl (32.0-36.0); MEAN CELL VOLUME 102.8 fl (80-96); MEAN PLT VOLUME 7.4 fl (7.5-11.1); MONO % 10.1 % (3.8-10.2); NEUT % 72.3 % (42.8-82.8); PLATELET COUNT 290 K/MM3 (134-434); RBC 2.46 M/mm3 (3.60-5.2); RDW 16.9 % (11.6-15.6); WHITE BLOOD COUNT 16.6 K/mm3 (4.0-10.0)
[2019-03-31 11:25] LABS: BLOOD UREA NITROGEN 55.6 mg/dL (7-18); CALCIUM 8.5 mg/dL (8.5-10.1); CREATININE 2.3 mg/dL (0.55-1.3); POTASSIUM 3.5 mmol/L (3.5-5.1)
[2019-03-31 12:27] LABS: ANISOCYTOSIS 1+; MACROCYTOSIS 1+; PLATELET ESTIMATE NORMAL
--- NOTE | 2019-03-31 13:05 | PN ---
Progress Note (short form) - Note Progress Note: s: edema improving. no chest pain, palps, dizziness, dyspnea. Current Medications Acetaminophen (Tylenol -) 650 mg PO Q6H PRN PRN Reason: PAIN LEVEL 6-10 Last Admin: 03/30/19 21:48 Dose: 650 mg Amlodipine Besylate (Norvasc -) 5 mg PO DAILY [facility] Last Admin: 03/31/19 09:36 Dose: 5 mg Aspirin (Asa -) 81 mg PO DAILY [facility] Last Admin: 03/31/19 09:36 Dose: 81 mg Carvedilol (Coreg -) 25 mg PO BID [facility] Last Admin: 03/31/19 09:35 Dose: 25 mg Cholecalciferol (Vitamin D3 -) 400 unit PO DAILY [facility] Last Admin: 03/31/19 09:35 Dose: 400 unit Famotidine (Pepcid -) 20 mg PO DAILY [facility] Last Admin: 03/31/19 09:36 Dose: 20 mg Furosemide (Lasix Injection -) 40 mg IVPUSH BID@0600,1400 [facility] Last Admin: 03/31/19 06:59 Dose: 40 mg Heparin Sodium (Porcine) (Heparin -) 5,000 unit SQ TID [facility] Last Admin: 03/31/19 06:59 Dose: 5,000 unit Ampicillin Sodium/Sulbactam (Sodium 3 gm/ Sodium Chloride) 100 mls @ 200 mls/ hr IVPB Q6H-IV [facility] Last Admin: 03/31/19 09:34 Dose: 200 mls/hr Insulin Aspart (Novolog Vial Sliding Scale -) 1 vial SQ ACHS [facility]; Protocol Last Admin: 03/31/19 11:39 Dose: 6 units Insulin Detemir (Levemir Vial) 25 units SQ DAILY [facility] Last Admin: 03/31/19 09:35 Dose: 25 units Letrozole (Femara -) 2.5 mg PO DAILY [facility] Last Admin: 03/31/19 09:36 Dose: 2.5 mg Levothyroxine Sodium (Synthroid -) 112 mcg PO DAILY@0700 [facility] Last Admin: 03/31/19 06:59 Dose: 112 mcg Multivitamins/Minerals/Vitamin C (Tab-A-Vit -) 1 tab PO DAILY [facility] Last Admin: 03/31/19 09:36 Dose: 1 tab Polyethylene Glycol (Miralax (For Daily Use) -) 17 gm PO DAILY [facility] Last Admin: 03/31/19 09:36 Dose: 17 grams Pregabalin (Lyrica -) 25 mg PO BID [facility] Last Admin: 03/31/19 09:35 Dose: 25 mg Vital Signs Period Temp Pulse Resp BP Sys/Hernandez Pulse Ox Last 24 Hr 97.3 F-99.0 F 74-85 16-18 137-170/51-69 96-100 nad ncat no JVD nl S1, S2, RRR CTA with crackles at bases soft, nt, nd +bs 1+ edema to knees bilaterally aox3 not agitated no jaundice, diaphoresis Assessment/Plan EKG: sinus, first deg AVB, LAD, ILBBB, no ischemic changes echo 03/2019 nl LV function, mild MR, mild TR, PASP at least 49 mmHg CXR: + congestive changes edema, acute diastolic heart failure exacerbation - CXR with congestion, elevated BNP - echo nl LV function - wt down, Cr stable, cont IV lasix lower ext cellulitis - manage per ID, primary DM - manage per primary HTN - inc amlodipine to 10 mg daily - holding losartan in setting of MAURICE MAURICE - Cr 2.4 ->2.2 (baseline 1.2) - may be prerenal, ?cardiorenal - monitor Cr with diuresis
[2019-03-31] MEDS: ACETAMINOPHEN 325 MG TABLET (FP) PO PRN (23:27)
[2019-04-01] MEDS ORDERED: SODIUM CHLORIDE 100 ML IVPB ONE ×4 (03:13→20:16)
[2019-04-01] MEDS ORDERED: AMPICILLIN NA/SULBACTAM NA 3 GM VIAL ONE ×4 (03:13→20:16)
[2019-04-01] MEDS: AMPICILLIN NA/SULBACTAM NA 3 GM in SODIUM CHLORIDE 100 ML IVPB SCH ×4 (03:18→20:23)
[2019-04-01] MEDS: HEPARIN NA (PORCINE) 5,000 UNITS/ML 1ML VIAL SQ SCH ×3 (06:51→21:58)
[2019-04-01] MEDS: FUROSEMIDE 40 MG/4 ML INJECTABLE VIAL IVPUSH SCH ×2 (06:51→14:11)
[2019-04-01] MEDS: LEVOTHYROXINE NA 112 MCG TABLET (FP) PO SCH (06:52)
[2019-04-01] MEDS: INSULIN SLIDING SCALE (NOVOLOG) 1 VIAL SQ SCH ×4 (09:15→21:44)
[2019-04-01] MEDS: amLODIPine BESYLATE 5 MG TABLET (FP) PO SCH (09:22)
[2019-04-01] MEDS: ASPIRIN 81 MG CHEWABLE TABLETS PO SCH (09:22)
[2019-04-01] MEDS: FAMOTIDINE 20 MG TABLET PO SCH (09:23)
[2019-04-01] MEDS: CARVEDILOL 12.5 MG TABLET (FP) PO SCH ×2 (09:23→21:57)
[2019-04-01] MEDS: LETROZOLE 2.5 MG TABLET (FP) PO SCH (09:24)
[2019-04-01] MEDS: PREGABALIN 25 MG CAPSULE PO SCH ×2 (09:25→21:57)
[2019-04-01] MEDS: CHOLECALCIFEROL (VIT D3) 400 UNIT (10 MCG) TABLET PO SCH (09:25)
[2019-04-01] MEDS: MULTIVITAMINS (DAILY MVI) TABLET (FP) PO SCH (09:25)
[2019-04-01] MEDS: POLYETHYLENE GLYCOL 3350 119 GM BTL PO SCH ×2 (09:25→10:37)
[2019-04-01] MEDS: INSULIN (LEVEMIR) 100 UNITS/ML UNITS SQ SCH (09:26)
--- NOTE | 2019-04-01 12:56 | PN ---
Progress Note, Physician History of Present Illness: starting to improve legs still red tenderness has improved - Current Medication List Current Medications: Active Medications Acetaminophen (Tylenol -) 650 mg PO Q6H PRN PRN Reason: PAIN LEVEL 6-10 Last Admin: 03/31/19 23:27 Dose: 650 mg Amlodipine Besylate (Norvasc -) 10 mg PO DAILY [facility] Last Admin: 04/01/19 09:22 Dose: 10 mg Aspirin (Asa -) 81 mg PO DAILY [facility] Last Admin: 04/01/19 09:22 Dose: 81 mg Carvedilol (Coreg -) 25 mg PO BID [facility] Last Admin: 04/01/19 09:23 Dose: 25 mg Cholecalciferol (Vitamin D3 -) 400 unit PO DAILY [facility] Last Admin: 04/01/19 09:25 Dose: 400 unit Famotidine (Pepcid -) 20 mg PO DAILY [facility] Last Admin: 04/01/19 09:23 Dose: 20 mg Furosemide (Lasix Injection -) 40 mg IVPUSH BID@0600,1400 [facility] Last Admin: 04/01/19 06:51 Dose: 40 mg Heparin Sodium (Porcine) (Heparin -) 5,000 unit SQ TID [facility] Last Admin: 04/01/19 06:51 Dose: 5,000 unit Ampicillin Sodium/Sulbactam (Sodium 3 gm/ Sodium Chloride) 100 mls @ 200 mls/ hr IVPB Q6H-IV [facility] Last Admin: 04/01/19 09:22 Dose: 200 mls/hr Insulin Aspart (Novolog Vial Sliding Scale -) 1 vial SQ ACHS [facility]; Protocol Last Admin: 04/01/19 09:15 Dose: Not Given Insulin Detemir (Levemir Vial) 25 units SQ DAILY [facility] Last Admin: 04/01/19 09:26 Dose: 25 units Letrozole (Femara -) 2.5 mg PO DAILY [facility] Last Admin: 04/01/19 09:24 Dose: 2.5 mg Levothyroxine Sodium (Synthroid -) 112 mcg PO DAILY@0700 [facility] Last Admin: 04/01/19 06:52 Dose: 112 mcg Multivitamins/Minerals/Vitamin C (Tab-A-Vit -) 1 tab PO DAILY [facility] Last Admin: 04/01/19 09:25 Dose: 1 tab Polyethylene Glycol (Miralax (For Daily Use) -) 17 gm PO DAILY [facility] Last Admin: 04/01/19 10:37 Dose: Not Given Pregabalin (Lyrica -) 25 mg PO BID [facility] Last Admin: 04/01/19 09:25 Dose: 25 mg - Objective Vital Signs: Vital Signs Temperature 98.2 F 04/01/19 10:00 Pulse Rate 85 04/01/19 10:00 Respiratory Rate 19 04/01/19 10:00 Blood Pressure 162/73 04/01/19 10:00 O2 Sat by Pulse Oximetry (%) 100 04/01/19 10:00 Constitutional: Yes: Calm, Mild Distress Cardiovascular: Yes: S1, S2 Respiratory: Yes: Regular, CTA Bilaterally Gastrointestinal: Yes: Normal Bowel Sounds, Soft Musculoskeletal: Yes: WNL Extremities: Yes: Other Neurological: Yes: Alert, Oriented Psychiatric: Yes: Alert, Oriented Labs: CBC, BMP 03/31/19 08:00 03/31/19 08:00 Assessment/Plan Problem List - Problems (1) Lower extremity cellulitis Code(s): L03.119 - CELLULITIS OF UNSPECIFIED PART OF LIMB (2) HTN (hypertension) Code(s): I10 - ESSENTIAL (PRIMARY) HYPERTENSION (3) Diabetes Code(s): E11.9 - TYPE 2 DIABETES MELLITUS WITHOUT COMPLICATIONS Qualifiers: Diabetes mellitus type: type 2 (4) History of CVA with residual deficit Code(s): I69.30 - UNSPECIFIED SEQUELAE OF CEREBRAL INFARCTION legs improving continue abx elevation of the legs
[2019-04-01] MEDS ORDERED: VANCOMYCIN 1 GRAM (PRE-DOCKED) 1,000 MG/250 ML BAG IVPB ONE (13:00)
--- NOTE | 2019-04-01 15:32 | PN ---
Progress Note (short form) - Note Progress Note: s: edema stable, no chest pain, palps, dizziness, dyspnea. Current Medications Acetaminophen (Tylenol -) 650 mg PO Q6H PRN PRN Reason: PAIN LEVEL 6-10 Last Admin: 03/31/19 23:27 Dose: 650 mg Amlodipine Besylate (Norvasc -) 10 mg PO DAILY [facility] Last Admin: 04/01/19 09:22 Dose: 10 mg Aspirin (Asa -) 81 mg PO DAILY [facility] Last Admin: 04/01/19 09:22 Dose: 81 mg Carvedilol (Coreg -) 25 mg PO BID [facility] Last Admin: 04/01/19 09:23 Dose: 25 mg Cholecalciferol (Vitamin D3 -) 400 unit PO DAILY [facility] Last Admin: 04/01/19 09:25 Dose: 400 unit Famotidine (Pepcid -) 20 mg PO DAILY [facility] Last Admin: 04/01/19 09:23 Dose: 20 mg Furosemide (Lasix Injection -) 40 mg IVPUSH BID@0600,1400 [facility] Last Admin: 04/01/19 14:11 Dose: 40 mg Heparin Sodium (Porcine) (Heparin -) 5,000 unit SQ TID [facility] Last Admin: 04/01/19 14:11 Dose: 5,000 unit Ampicillin Sodium/Sulbactam (Sodium 3 gm/ Sodium Chloride) 100 mls @ 200 mls/ hr IVPB Q6H-IV [facility] Last Admin: 04/01/19 09:22 Dose: 200 mls/hr Insulin Aspart (Novolog Vial Sliding Scale -) 1 vial SQ ACHS [facility]; Protocol Last Admin: 04/01/19 14:10 Dose: 6 units Insulin Detemir (Levemir Vial) 25 units SQ DAILY [facility] Last Admin: 04/01/19 09:26 Dose: 25 units Letrozole (Femara -) 2.5 mg PO DAILY [facility] Last Admin: 04/01/19 09:24 Dose: 2.5 mg Levothyroxine Sodium (Synthroid -) 112 mcg PO DAILY@0700 [facility] Last Admin: 04/01/19 06:52 Dose: 112 mcg Multivitamins/Minerals/Vitamin C (Tab-A-Vit -) 1 tab PO DAILY [facility] Last Admin: 04/01/19 09:25 Dose: 1 tab Polyethylene Glycol (Miralax (For Daily Use) -) 17 gm PO DAILY [facility] Last Admin: 04/01/19 10:37 Dose: Not Given Pregabalin (Lyrica -) 25 mg PO BID [facility] Last Admin: 04/01/19 09:25 Dose: 25 mg Vital Signs Period Temp Pulse Resp BP Sys/Hernandez Pulse Ox Last 24 Hr 97.9 F-99.2 F 75-86 18-20 144-171/53-73 95-100 nad ncat no JVD nl S1, S2, RRR CTA with crackles at bases soft, nt, nd +bs 1+ edema aox3 not agitated no jaundice, diaphoresis Assessment/Plan EKG: sinus, first deg AVB, LAD, ILBBB, no ischemic changes echo 03/2019 nl LV function, mild MR, mild TR, PASP at least 49 mmHg CXR: + congestive changes edema, acute diastolic heart failure exacerbation - CXR with congestion, elevated BNP - echo nl LV function - wt stable today, Cr pending. cont IV lasix lower ext cellulitis - manage per ID, primary DM - manage per primary HTN - inc amlodipine to 10 mg daily - holding losartan in setting of MAURICE MAURICE - Cr 2.4 ->2.2 (baseline 1.2) - may be prerenal, ?cardiorenal - monitor Cr with diuresis
[2019-04-01 15:34] LABS: HEMATOCRIT 24.5 % (32.4-45.2); MCH 33.1 pg (25.7-33.7); MCHC 32.8 g/dl (32.0-36.0); MEAN CELL VOLUME 100.9 fl (80-96); MEAN PLT VOLUME 6.5 fl (7.5-11.1); PLATELET COUNT 312 K/MM3 (134-434); RBC 2.43 M/mm3 (3.60-5.2); RDW 15.4 % (11.6-15.6); WHITE BLOOD COUNT 16.5 K/mm3 (4.0-10.8)
--- NOTE | 2019-04-01 15:43 | PN ---
Physical Exam: SUBJECTIVE: Patient seen and examined OBJECTIVE: Vital Signs Period Temp Pulse Resp BP Sys/Hernandez Pulse Ox Last 24 Hr 97.9 F-99.2 F 75-86 18-20 144-171/53-73 95-100 Elderly F comfortable no s/s of distress HEENT: Mm moist, no anemia, PERRLA EOMI NECK: No JVd No Bruit CHEST: CTA B/L CVS; SS2 R no m/g/r ABD: No distention, non tender BS + EXT: B/L Cellulitis, regressing edema. 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 Lymphocytes % No Result Required. POC Glucometer 269 Active Medications Generic Name Dose Route Start Last Admin Trade Name Meena PRN Reason Stop Dose Admin Acetaminophen 650 mg 03/30/19 18:47 03/31/19 23:27 Tylenol - PO 650 mg Q6H PRN Administration PAIN LEVEL 6-10 Amlodipine Besylate 10 mg 03/31/19 13:05 04/01/19 09:22 Norvasc - PO 10 mg DAILY [facility] Administration Aspirin 81 mg 03/27/19 10:00 04/01/19 09:22 Asa - PO 81 mg DAILY [facility] Administration Carvedilol 25 mg 03/27/19 10:00 04/01/19 09:23 Coreg - PO 25 mg BID [facility] Administration Cholecalciferol 400 unit 03/27/19 10:00 04/01/19 09:25 Vitamin D3 - PO 400 unit DAILY [facility] Administration Famotidine 20 mg 03/27/19 10:00 04/01/19 09:23 Pepcid - PO 20 mg DAILY [facility] Administration Furosemide 40 mg 03/27/19 06:00 04/01/19 14:11 Lasix Injection - IVPUSH 40 mg BID@0600,1400 [facility] Administration Heparin Sodium (Porcine) 5,000 unit 03/27/19 06:00 04/01/19 14:11 Heparin - SQ 5,000 unit TID [facility] Administration Ampicillin Sodium/Sulbactam 100 mls @ 200 mls/hr 03/29/19 10:30 04/01/19 09: 22 Sodium 3 gm/ Sodium Chloride IVPB 200 mls/hr Q6H-IV [facility] Administration Insulin Aspart 1 vial 03/27/19 11:00 04/01/19 14:10 Novolog Vial Sliding Scale - SQ 6 units ACHS [facility] Administration Protocol Insulin Detemir 25 units 03/27/19 11:13 04/01/19 09:26 Levemir Vial SQ 25 units DAILY [facility] Administration Letrozole 2.5 mg 03/27/19 10:00 04/01/19 09:24 Femara - PO 2.5 mg DAILY [facility] Administration Levothyroxine Sodium 112 mcg 03/30/19 07:00 04/01/19 06:52 Synthroid - PO 112 mcg DAILY@0700 [facility] Administration Multivitamins/Minerals/Vitamin C 1 tab 03/27/19 10:00 04/01/19 09:25 Tab-A-Vit - PO 1 tab DAILY [facility] Administration Polyethylene Glycol 17 gm 03/27/19 10:00 04/01/19 10:37 Miralax (For Daily Use) - PO Not Given DAILY [facility] Pregabalin 25 mg 03/27/19 10:00 04/01/19 09:25 Lyrica - PO 25 mg BID [facility] Administration ASSESSMENT/PLAN: 88 year-old female with a PMH significant for HTN, IDDM, CKD, left breast CA, GERD, hypothyroidism, and chronic leukocytosis. Admitted for lower extremity cellulitis and acute on chronic diastolic heart failure. (1) Lower extremity cellulitis Assessment/Plan: Improving on IV Unasyn continue same as per ID recommendations. Code(s): L03.119 - CELLULITIS OF UNSPECIFIED PART OF LIMB (2) HTN (hypertension) Assessment/Plan: Well-controlled on current regimen continue cardiology recommendations. Code(s): I10 - ESSENTIAL (PRIMARY) HYPERTENSION (3) Diabetes Assessment/Plan: Continue current regimen of meds glycemic control as needed Code(s): E11.9 - TYPE 2 DIABETES MELLITUS WITHOUT COMPLICATIONS Qualifiers: Diabetes mellitus type: type 2 (4) History of CVA with residual deficit Assessment/Plan: Chronic no active issues Code(s): I69.30 - UNSPECIFIED SEQUELAE OF CEREBRAL INFARCTION (5) Breast cancer Assessment/Plan: On Femara. Problems reviewed: Yes Code(s): C50.919 - MALIGNANT NEOPLASM OF UNSP SITE OF UNSPECIFIED FEMALE BREAST (6) Acute kidney injury superimposed on CKD Assessment/Plan: BUN slowly trending down, Creatinine 2.5 Will monitor Problems reviewed: Yes Code(s): N17.9 - ACUTE KIDNEY FAILURE, UNSPECIFIED; N18.9 - CHRONIC KIDNEY DISEASE, UNSPECIFIED Visit type - Emergency Visit Emergency Visit: Yes ED Registration Date: 03/27/19 Care time: The patient presented to the Emergency Department on the above date and was hospitalized for further evaluation of their emergent condition. - New Patient This patient is new to me today: No - Critical Care Critical Care patient: No - Discharge Referral Referred to [facility] Med P.C[facility] No
[2019-04-01 15:55] LABS: POTASSIUM 3.1 mmol/L (3.5-5.1)
[2019-04-01 16:21] LABS: ALBUMIN 2.7 g/dl (3.4-5.0); BILIRUBIN,TOTAL 0.4 mg/dl (0.2-1); CREATININE 2.5 mg/dl (0.55-1.3); MAGNESIUM 1.8 mg/dL (1.8-2.4); TOT PROT 5.8 g/dl (6.4-8.2)
[2019-04-01 18:19] LABS: PLATELET ESTIMATE ADEQUATE
[2019-04-01] MEDS ORDERED: POTASSIUM CHLORIDE TABS 20 MEQ TABLET.ER (FP) PO ONE (18:31)
[2019-04-01] MEDS ORDERED: POTASSIUM CHLORIDE ORAL LIQUID 20 MEQ/15 ML PO ONE (19:12)
[2019-04-02] MEDS ORDERED: AMPICILLIN NA/SULBACTAM NA 3 GM VIAL ONE ×4 (01:26→20:27)
[2019-04-02] MEDS ORDERED: SODIUM CHLORIDE 100 ML IVPB ONE ×4 (01:26→20:27)
[2019-04-02] MEDS: AMPICILLIN NA/SULBACTAM NA 3 GM in SODIUM CHLORIDE 100 ML IVPB SCH ×4 (03:02→21:25)
[2019-04-02] MEDS: FUROSEMIDE 40 MG/4 ML INJECTABLE VIAL IVPUSH SCH (06:16)
[2019-04-02] MEDS: LEVOTHYROXINE NA 112 MCG TABLET (FP) PO SCH (06:16)
[2019-04-02] MEDS: HEPARIN NA (PORCINE) 5,000 UNITS/ML 1ML VIAL SQ SCH ×3 (06:16→21:25)
[2019-04-02] MEDS: ACETAMINOPHEN 325 MG TABLET (FP) PO PRN (06:16)
[2019-04-02] MEDS: INSULIN SLIDING SCALE (NOVOLOG) 1 VIAL SQ SCH ×4 (06:28→22:42)
[2019-04-02 08:37] LABS: ALBUMIN 2.7 g/dl (3.4-5.0); BILIRUBIN,TOTAL 0.5 mg/dl (0.2-1); CALCIUM 8.1 mg/dl (8.5-10); CREATININE 2.4 mg/dl (0.55-1.3); MAGNESIUM 1.8 mg/dL (1.8-2.4); POTASSIUM 3.5 mmol/L (3.5-5.1); TOT PROT 5.7 g/dl (6.4-8.2)
[2019-04-02 08:40] LABS: BASO % 0.7 % (0-2.0); EOS % 9.4 % (0-4.5); HEMATOCRIT 24.6 % (32.4-45.2); HEMOGLOBIN 8.1 GM/dl (10.7-15.3); LYMPH % 9.7 % (8-40); MCH 33.8 pg (25.7-33.7); MCHC 33.1 g/dl (32.0-36.0); MEAN CELL VOLUME 102.2 fl (80-96); MEAN PLT VOLUME 6.7 fl (7.5-11.1); MONO % 8.5 % (3.8-10.2); NEUT % 71.7 % (42.8-82.8); PLATELET COUNT 307 K/MM3 (134-434); RBC 2.41 M/mm3 (3.60-5.2); WHITE BLOOD COUNT 17.5 K/mm3 (4.0-10.8)
--- NOTE | 2019-04-02 08:52 | PN ---
Physical Exam: SUBJECTIVE: Patient seen and examined OBJECTIVE: Vital Signs Period Temp Pulse Resp BP Sys/Hernandez Pulse Ox Last 24 Hr 97.6 F-98.2 F 82-87 18-19 147-183/53-73 93-100 Elderly Female comfortable no s/s of distress HEENT: MM moist, no anemia, PERRLA EOMI NECK: No JVd No Bruit CHEST: CTA B/L CVS; S1 S2 RRR ABD: No distention, non tender BS + EXT: B/L Cellulitis, regressing edema. 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 Neutrophils % (Manual) 57.0 Lymphocytes % No Result Required. Lymphocytes % (Manual) 19.0 Monocytes % Monocytes % (Manual) 14 H Eosinophils % Eosinophils % (Manual) 6.0 H Basophils % Basophils % (Manual) 2.0 Myelocytes % (Man) 2 Platelet Estimate Adequate Sodium 137 Potassium 3.1 L Chloride 101 Carbon Dioxide 24 Anion Gap 12 BUN 57.0 H Creatinine 2.5 H Est GFR (CKD-EPI)AfAm 19.10 Est GFR (CKD-EPI)NonAf 16.48 POC Glucometer 269 Random Glucose 232 H Calcium 8.0 L Magnesium 1.8 Total Bilirubin 0.4 AST 26 ALT 16 Alkaline Phosphatase 79 D Total Protein 5.8 L Albumin 2.7 L 04/01/19 04/01/19 04/02/19 18:20 21:37 06:22 WBC RBC Hgb Hct MCV MCH MCHC RDW Plt Count MPV Absolute Neuts (auto) Neutrophils % Neutrophils % (Manual) Lymphocytes % Lymphocytes % (Manual) Monocytes % Monocytes % (Manual) Eosinophils % Eosinophils % (Manual) Basophils % Basophils % (Manual) Myelocytes % (Man) Platelet Estimate Sodium Potassium Chloride Carbon Dioxide Anion Gap BUN Creatinine Est GFR (CKD-EPI)AfAm Est GFR (CKD-EPI)NonAf POC Glucometer 186 132 148 Random Glucose Calcium Magnesium Total Bilirubin AST ALT Alkaline Phosphatase Total Protein Albumin 04/02/19 04/02/19 07:05 07:05 WBC 17.5 H RBC 2.41 L Hgb 8.1 L Hct 24.6 L MCV 102.2 H MCH 33.8 H MCHC 33.1 RDW 16.0 H Plt Count 307 MPV 6.7 L Absolute Neuts (auto) 12.6 Neutrophils % 71.7 Neutrophils % (Manual) Lymphocytes % 9.7 Lymphocytes % (Manual) Monocytes % 8.5 Monocytes % (Manual) Eosinophils % 9.4 H Eosinophils % (Manual) Basophils % 0.7 Basophils % (Manual) Myelocytes % (Man) Platelet Estimate Sodium 140 Potassium 3.5 Chloride 106 Carbon Dioxide 22 Anion Gap 12 BUN 55.0 H Creatinine 2.4 H Est GFR (CKD-EPI)AfAm 20.07 Est GFR (CKD-EPI)NonAf 17.32 POC Glucometer Random Glucose 162 H Calcium 8.1 L Magnesium 1.8 Total Bilirubin 0.5 AST 26 ALT 19 Alkaline Phosphatase 76 Total Protein 5.7 L Albumin 2.7 L Active Medications Generic Name Dose Route Start Last Admin Trade Name Freq PRN Reason Stop Dose Admin Acetaminophen 650 mg 03/30/19 18:47 04/02/19 06:16 Tylenol - PO 650 mg Q6H PRN Administration PAIN LEVEL 6-10 Amlodipine Besylate 10 mg 03/31/19 13:05 04/01/19 09:22 Norvasc - PO 10 mg DAILY [facility] Administration Aspirin 81 mg 03/27/19 10:00 04/01/19 09:22 Asa - PO 81 mg DAILY [facility] Administration Carvedilol 25 mg 03/27/19 10:00 04/01/19 21:57 Coreg - PO 25 mg BID [facility] Administration Cholecalciferol 400 unit 03/27/19 10:00 04/01/19 09:25 Vitamin D3 - PO 400 unit DAILY [facility] Administration Famotidine 20 mg 03/27/19 10:00 04/01/19 09:23 Pepcid - PO 20 mg DAILY [facility] Administration Furosemide 40 mg 03/27/19 06:00 04/02/19 06:16 Lasix Injection - IVPUSH 40 mg BID@0600,1400 [facility] Administration Heparin Sodium (Porcine) 5,000 unit 03/27/19 06:00 04/02/19 06:16 Heparin - SQ 5,000 unit TID [facility] Administration Ampicillin Sodium/Sulbactam 100 mls @ 200 mls/hr 03/29/19 10:30 04/02/19 03: 02 Sodium 3 gm/ Sodium Chloride IVPB 200 mls/hr Q6H-IV [facility] Administration Insulin Aspart 1 vial 03/27/19 11:00 04/02/19 06:28 Novolog Vial Sliding Scale - SQ Not Given ACHS [facility] Protocol Insulin Detemir 25 units 03/27/19 11:13 04/01/19 09:26 Levemir Vial SQ 25 units DAILY [facility] Administration Letrozole 2.5 mg 03/27/19 10:00 04/01/19 09:24 Femara - PO 2.5 mg DAILY [facility] Administration Levothyroxine Sodium 112 mcg 03/30/19 07:00 04/02/19 06:16 Synthroid - PO 112 mcg DAILY@0700 [facility] Administration Multivitamins/Minerals/Vitamin C 1 tab 03/27/19 10:00 04/01/19 09:25 Tab-A-Vit - PO 1 tab DAILY [facility] Administration Polyethylene Glycol 17 gm 03/27/19 10:00 04/01/19 10:37 Miralax (For Daily Use) - PO Not Given DAILY [facility] Pregabalin 25 mg 03/27/19 10:00 04/01/19 21:57 Lyrica - PO 25 mg BID [facility] Administration ASSESSMENT/PLAN: 88 year-old female with a PMH significant for HTN, IDDM, CKD, left breast CA, GERD, hypothyroidism, and chronic leukocytosis. Admitted for lower extremity cellulitis and acute on chronic diastolic heart failure. (1) Lower extremity cellulitis Assessment/Plan: Improving on IV Unasyn ID Following- Bobde Patient given printed education on cellulitis (2) HTN (hypertension) Assessment/Plan: Well-controlled on current regimen continue cardiology recommendations. Holding Losartan due to MAURICE (3) Diabetes mellitus type 2 Assessment/Plan: Continue current regimen of meds glycemic control as needed (4) History of CVA with residual deficit Assessment/Plan: Chronic no active issues (5) Breast cancer Assessment/Plan: On Femara (6) Acute kidney injury superimposed on CKD Assessment/Plan: Bun 55 Crea 2.5 Will monitor -Will decrease LASIX IV Push from 40mg BID to 40mg once daily Visit type - Emergency Visit Emergency Visit: Yes ED Registration Date: 03/27/19 Care time: The patient presented to the Emergency Department on the above date and was hospitalized for further evaluation of their emergent condition. - New Patient This patient is new to me today: No - Critical Care Critical Care patient: No - Discharge Referral Referred to [facility] No
[2019-04-02] MEDS: PREGABALIN 25 MG CAPSULE PO SCH ×2 (10:01→21:25)
[2019-04-02] MEDS: ASPIRIN 81 MG CHEWABLE TABLETS PO SCH (10:03)
[2019-04-02] MEDS: LETROZOLE 2.5 MG TABLET (FP) PO SCH (10:04)
[2019-04-02] MEDS: INSULIN (LEVEMIR) 100 UNITS/ML UNITS SQ SCH (10:04)
[2019-04-02] MEDS: CARVEDILOL 12.5 MG TABLET (FP) PO SCH ×2 (10:04→21:25)
[2019-04-02] MEDS: POLYETHYLENE GLYCOL 3350 119 GM BTL PO SCH (10:05)
[2019-04-02] MEDS: amLODIPine BESYLATE 5 MG TABLET (FP) PO SCH (10:05)
[2019-04-02] MEDS: FAMOTIDINE 20 MG TABLET PO SCH (10:05)
[2019-04-02] MEDS: MULTIVITAMINS (DAILY MVI) TABLET (FP) PO SCH (10:06)
[2019-04-02] MEDS: CHOLECALCIFEROL (VIT D3) 400 UNIT (10 MCG) TABLET PO SCH (10:07)
--- NOTE | 2019-04-02 15:56 | PN ---
Progress Note, Physician History of Present Illness: stable improving leg still swollen - Current Medication List Current Medications: Active Medications Acetaminophen (Tylenol -) 650 mg PO Q6H PRN PRN Reason: PAIN LEVEL 6-10 Last Admin: 04/02/19 06:16 Dose: 650 mg Amlodipine Besylate (Norvasc -) 10 mg PO DAILY [facility] Last Admin: 04/02/19 10:05 Dose: 10 mg Aspirin (Asa -) 81 mg PO DAILY [facility] Last Admin: 04/02/19 10:03 Dose: 81 mg Carvedilol (Coreg -) 25 mg PO BID [facility] Last Admin: 04/02/19 10:04 Dose: 25 mg Cholecalciferol (Vitamin D3 -) 400 unit PO DAILY [facility] Last Admin: 04/02/19 10:07 Dose: 400 unit Famotidine (Pepcid -) 20 mg PO DAILY [facility] Last Admin: 04/02/19 10:05 Dose: 20 mg Furosemide (Lasix Injection -) 40 mg IVPUSH DAILY [facility] Heparin Sodium (Porcine) (Heparin -) 5,000 unit SQ TID [facility] Last Admin: 04/02/19 06:16 Dose: 5,000 unit Ampicillin Sodium/Sulbactam (Sodium 3 gm/ Sodium Chloride) 100 mls @ 200 mls/ hr IVPB Q6H-IV [facility] Last Admin: 04/02/19 09:58 Dose: 200 mls/hr Insulin Aspart (Novolog Vial Sliding Scale -) 1 vial SQ ACHS [facility]; Protocol Last Admin: 04/02/19 11:05 Dose: Not Given Insulin Detemir (Levemir Vial) 25 units SQ DAILY [facility] Last Admin: 04/02/19 10:04 Dose: 25 units Letrozole (Femara -) 2.5 mg PO DAILY [facility] Last Admin: 04/02/19 10:04 Dose: 2.5 mg Levothyroxine Sodium (Synthroid -) 112 mcg PO DAILY@0700 [facility] Last Admin: 04/02/19 06:16 Dose: 112 mcg Multivitamins/Minerals/Vitamin C (Tab-A-Vit -) 1 tab PO DAILY [facility] Last Admin: 04/02/19 10:06 Dose: 1 tab Polyethylene Glycol (Miralax (For Daily Use) -) 17 gm PO DAILY [facility] Last Admin: 04/02/19 10:05 Dose: Not Given Pregabalin (Lyrica -) 25 mg PO BID [facility] Last Admin: 04/02/19 10:01 Dose: 25 mg - Objective Vital Signs: Vital Signs Temperature 98.9 F 04/02/19 14:11 Pulse Rate 80 04/02/19 14:11 Respiratory Rate 78 H 04/02/19 14:11 Blood Pressure 151/55 L 04/02/19 14:11 O2 Sat by Pulse Oximetry (%) 94 L 04/02/19 14:11 Constitutional: Yes: No Distress, Calm Cardiovascular: Yes: S1, S2 Respiratory: Yes: Regular, CTA Bilaterally Gastrointestinal: Yes: Normal Bowel Sounds, Soft Musculoskeletal: Yes: Other Extremities: Yes: Erythema, Other (swelling) Edema: LLE: 1+, RLE: 1+ Neurological: Yes: Alert, Oriented Psychiatric: Yes: Alert, Oriented Labs: CBC, BMP 04/02/19 07:05 04/02/19 07:05 Assessment/Plan Problem List - Problems (1) Lower extremity cellulitis Code(s): L03.119 - CELLULITIS OF UNSPECIFIED PART OF LIMB (2) HTN (hypertension) Code(s): I10 - ESSENTIAL (PRIMARY) HYPERTENSION (3) Diabetes Code(s): E11.9 - TYPE 2 DIABETES MELLITUS WITHOUT COMPLICATIONS Qualifiers: Diabetes mellitus type: type 2 (4) History of CVA with residual deficit Code(s): I69.30 - UNSPECIFIED SEQUELAE OF CEREBRAL INFARCTION legs improving continue abx elevation of the legs
--- NOTE | 2019-04-02 16:32 | PN ---
Progress Note (short form) - Note Progress Note: s: le edema improving no chest pain, palps, dizziness, dyspnea. Current Medications Generic Name Dose Route Start Last Admin Trade Name Freadin PRN Reason Stop Dose Admin Acetaminophen 650 mg 03/30/19 18:47 04/02/19 06:16 Tylenol - PO 650 mg Q6H PRN Administration PAIN LEVEL 6-10 Amlodipine Besylate 10 mg 03/31/19 13:05 04/02/19 10:05 Norvasc - PO 10 mg DAILY [facility] Administration Aspirin 81 mg 03/27/19 10:00 04/02/19 10:03 Asa - PO 81 mg DAILY [facility] Administration Carvedilol 25 mg 03/27/19 10:00 04/02/19 10:04 Coreg - PO 25 mg BID [facility] Administration Cholecalciferol 400 unit 03/27/19 10:00 04/02/19 10:07 Vitamin D3 - PO 400 unit DAILY [facility] Administration Famotidine 20 mg 03/27/19 10:00 04/02/19 10:05 Pepcid - PO 20 mg DAILY [facility] Administration Furosemide 40 mg 04/03/19 10:00 Lasix Injection - IVPUSH DAILY [facility] Heparin Sodium (Porcine) 5,000 unit 03/27/19 06:00 04/02/19 06:16 Heparin - SQ 5,000 unit TID [facility] Administration Ampicillin Sodium/Sulbactam 100 mls @ 200 mls/hr 03/29/19 10:30 04/02/19 09: 58 Sodium 3 gm/ Sodium Chloride IVPB 200 mls/hr Q6H-IV [facility] Administration Insulin Aspart 1 vial 03/27/19 11:00 04/02/19 11:05 Novolog Vial Sliding Scale - SQ Not Given ACHS [facility] Protocol Insulin Detemir 25 units 03/27/19 11:13 04/02/19 10:04 Levemir Vial SQ 25 units DAILY [facility] Administration Letrozole 2.5 mg 03/27/19 10:00 04/02/19 10:04 Femara - PO 2.5 mg DAILY [facility] Administration Levothyroxine Sodium 112 mcg 03/30/19 07:00 04/02/19 06:16 Synthroid - PO 112 mcg DAILY@0700 [facility] Administration Multivitamins/Minerals/Vitamin C 1 tab 03/27/19 10:00 04/02/19 10:06 Tab-A-Vit - PO 1 tab DAILY [facility] Administration Polyethylene Glycol 17 gm 03/27/19 10:00 04/02/19 10:05 Miralax (For Daily Use) - PO Not Given DAILY [facility] Pregabalin 25 mg 03/27/19 10:00 04/02/19 10:01 Lyrica - PO 25 mg BID [facility] Administration Vital Signs Period Temp Pulse Resp BP Sys/Hernandez Pulse Ox Last 24 Hr 97.6 F-98.9 F 80-87 18-78 147-183/53-68 93-97 nad ncat no JVD nl S1, S2, RRR crackles at bases nl eff soft, nt, nd +bs 1+ edema aox3 not agitated no jaundice, diaphoresis CBC, BMP 04/02/19 07:05 04/02/19 07:05 Assessment/Plan EKG: sinus, first deg AVB, LAD, ILBBB, no ischemic changes echo 03/2019 nl LV function, mild MR, mild TR, PASP at least 49 mmHg CXR: + congestive changes edema, acute diastolic heart failure exacerbation - CXR with congestion, elevated BNP - echo nl LV function - cr stable, cont IV lasix. monitor daily chem7 lower ext cellulitis - manage per ID, primary HTN - cont norvasc - holding losartan in setting of MAURICE MAURICE - Cr 2.4 ->2.2 (baseline 1.2) - may be prerenal, ?cardiorenal - monitor Cr with diuresis
[2019-04-03] MEDS ORDERED: SODIUM CHLORIDE 100 ML IVPB ONE ×4 (03:30→21:03)
[2019-04-03] MEDS ORDERED: AMPICILLIN NA/SULBACTAM NA 3 GM VIAL ONE ×4 (03:30→21:03)
[2019-04-03] MEDS: AMPICILLIN NA/SULBACTAM NA 3 GM in SODIUM CHLORIDE 100 ML IVPB SCH ×4 (03:37→21:44)
[2019-04-03] MEDS: INSULIN SLIDING SCALE (NOVOLOG) 1 VIAL SQ SCH ×3 (06:23→21:49)
[2019-04-03] MEDS: LEVOTHYROXINE NA 112 MCG TABLET (FP) PO SCH (06:23)
[2019-04-03] MEDS: ACETAMINOPHEN 325 MG TABLET (FP) PO PRN ×2 (06:23→22:30)
[2019-04-03] MEDS: HEPARIN NA (PORCINE) 5,000 UNITS/ML 1ML VIAL SQ SCH ×3 (06:23→21:45)
[2019-04-03 08:49] LABS: BASO % 0.6 % (0-2.0); EOS % 8.9 % (0-4.5); HEMATOCRIT 24.4 % (32.4-45.2); LYMPH % 13.3 % (8-40); MCH 33.8 pg (25.7-33.7); MEAN CELL VOLUME 102.4 fl (80-96); MONO % 9.3 % (3.8-10.2); NEUT % 67.9 % (42.8-82.8); PLATELET COUNT 269 K/MM3 (134-434); RBC 2.38 M/mm3 (3.60-5.2); RDW 15.6 % (11.6-15.6); WHITE BLOOD COUNT 16.9 K/mm3 (4.0-10.8)
[2019-04-03 09:03] LABS: ALBUMIN 2.6 g/dl (3.4-5.0); BILIRUBIN,TOTAL 0.4 mg/dl (0.2-1); CALCIUM 8.1 mg/dl (8.5-10); CREATININE 2.4 mg/dl (0.55-1.3); POTASSIUM 3.6 mmol/L (3.5-5.1); TOT PROT 5.5 g/dl (6.4-8.2)
--- NOTE | 2019-04-03 09:07 | PN ---
Physical Exam: SUBJECTIVE: Patient seen and examined at bedside, reports feeling better OBJECTIVE: Vital Signs Period Temp Pulse Resp BP Sys/Hernandez Pulse Ox Last 24 Hr 97.8 F-98.9 F 76-85 18-78 116-167/55-87 94-98 GENERAL: The patient is awake, alert, and fully oriented, in no acute distress. HEAD: Normal with no signs of trauma. EYES: PERRL, extraocular movements intact, sclera anicteric, conjunctiva clear. No ptosis. ENT: Ears normal, nares patent, oropharynx clear without exudates, moist mucous membranes. NECK: Trachea midline, full range of motion, supple. LUNGS: BS diminished on Lt side, no wheezes, no crackles, no accessory muscle use. HEART: Regular rate and rhythm, S1, S2 without murmur, rub or gallop. ABDOMEN: Soft, nontender, nondistended, normoactive bowel sounds, no guarding, no rebound, no hepatosplenomegaly, no masses. EXTREMITIES: 2+ pulses, warm, well-perfused, no edema. Bilateral 1-2 + edema, tenderness both legs, erythematous and warm to touch L>R, venous stasis changes NEUROLOGICAL: Cranial nerves II through XII grossly intact. Normal speech, gait not observed. PSYCH: Normal mood, normal affect. SKIN: Warm, dry, normal turgor, no rashes or lesions noted Laboratory Results - last 24 hr 04/02/19 04/02/19 04/03/19 18:19 21:50 05:50 POC Glucometer 250 121 79 Active Medications Generic Name Dose Route Start Last Admin Trade Name Moiseq PRN Reason Stop Dose Admin Acetaminophen 650 mg 03/30/19 18:47 04/03/19 06:23 Tylenol - PO 650 mg Q6H PRN Administration PAIN LEVEL 6-10 Amlodipine Besylate 10 mg 03/31/19 13:05 04/02/19 10:05 Norvasc - PO 10 mg DAILY [facility] Administration Aspirin 81 mg 03/27/19 10:00 04/02/19 10:03 Asa - PO 81 mg DAILY [facility] Administration Carvedilol 25 mg 03/27/19 10:00 04/02/19 21:25 Coreg - PO 25 mg BID [facility] Administration Cholecalciferol 400 unit 03/27/19 10:00 04/02/19 10:07 Vitamin D3 - PO 400 unit DAILY [facility] Administration Famotidine 20 mg 03/27/19 10:00 04/02/19 10:05 Pepcid - PO 20 mg DAILY [facility] Administration Furosemide 40 mg 04/03/19 10:00 Lasix Injection - IVPUSH DAILY [facility] Heparin Sodium (Porcine) 5,000 unit 03/27/19 06:00 04/03/19 06:23 Heparin - SQ 5,000 unit TID [facility] Administration Ampicillin Sodium/Sulbactam 100 mls @ 200 mls/hr 03/29/19 10:30 04/03/19 03: 37 Sodium 3 gm/ Sodium Chloride IVPB 200 mls/hr Q6H-IV [facility] Administration Insulin Aspart 1 vial 03/27/19 11:00 04/03/19 06:23 Novolog Vial Sliding Scale - SQ Not Given ACHS [facility] Protocol Insulin Detemir 25 units 03/27/19 11:13 04/02/19 10:04 Levemir Vial SQ 25 units DAILY [facility] Administration Letrozole 2.5 mg 03/27/19 10:00 04/02/19 10:04 Femara - PO 2.5 mg DAILY [facility] Administration Levothyroxine Sodium 112 mcg 03/30/19 07:00 04/03/19 06:23 Synthroid - PO 112 mcg DAILY@0700 [facility] Administration Multivitamins/Minerals/Vitamin C 1 tab 03/27/19 10:00 04/02/19 10:06 Tab-A-Vit - PO 1 tab DAILY [facility] Administration Polyethylene Glycol 17 gm 03/27/19 10:00 04/02/19 10:05 Miralax (For Daily Use) - PO Not Given DAILY [facility] Pregabalin 25 mg 03/27/19 10:00 04/02/19 21:25 Lyrica - PO 25 mg BID [facility] Administration ASSESSMENT/PLAN: 88 year-old female with a PMH significant for HTN, IDDM, CKD, left breast CA,CVA , GERD, hypothyroidism, and chronic leukocytosis. Admitted for lower extremity cellulitis and acute on chronic diastolic heart failure. *Lower extremity cellulitis- improving - will cont on Unasyn - ID following - afebrile, with leukocytosis - DVT ruled out - pain control *Diastolic heart failure, acute on chronic -August 2012 Echo: LV normal, diastolic dysfunction; RV not well-visualized; trace MR; mild TR -lower extremity edema and congestive changes on CXR - BNP 1853 -echo on 03/29/19- EF 60-65% -s/p IV Lasix, now switched to Po Lasix as per card -cardiology following *Acute on chronic kidney injury ( baseline 1.2) -Cr 2.4 on admission, remains elevated -continue to trend - Renal US reviewed : No acute pathology, large post void urine - post void urine < 50 cc -Lasix dose decreased to 40mg daily instead of bid - if still remains elevated , will get Renal consult *HTN- BP stable - will cont on BB, Lasix and Norvasc -Holding Losartan due to MAURICE *Diabetes mellitus type 2 - FS monitoring - Insulin sliding scale - Diabetic diet * Hx of Left breast cancer -continue letrozole *GERD -continue Pepcid *Hypothyroidism -increase levothyroxine 112mcg daily *History of CVA with residual deficit * Diabetic neuropathy - will cont on pain meds * Anemia - chronic,likely due to CKD - Fecal occult negative - will check Fe studies *FEN Fluids: PO intake adequate Electrolytes: replete as indicated Nutrition: diabetic, low sodium DVT prophylaxis: subq heparin Physical therapy- Following rec Rehab Dispo: continues to require inpatient care. Full code. Visit type - Emergency Visit Emergency Visit: Yes ED Registration Date: 03/27/19 Care time: The patient presented to the Emergency Department on the above date and was hospitalized for further evaluation of their emergent condition. - New Patient This patient is new to me today: No - Critical Care Critical Care patient: No
[2019-04-03] MEDS ORDERED: FUROSEMIDE 40 MG/4 ML INJECTABLE VIAL IVPUSH SCH (10:00)
[2019-04-03] MEDS: FAMOTIDINE 20 MG TABLET PO SCH (10:04)
[2019-04-03] MEDS: CARVEDILOL 12.5 MG TABLET (FP) PO SCH ×2 (10:04→21:45)
[2019-04-03] MEDS: POLYETHYLENE GLYCOL 3350 119 GM BTL PO SCH (10:04)
[2019-04-03] MEDS: ASPIRIN 81 MG CHEWABLE TABLETS PO SCH (10:04)
[2019-04-03] MEDS: LETROZOLE 2.5 MG TABLET (FP) PO SCH (10:04)
[2019-04-03] MEDS: amLODIPine BESYLATE 5 MG TABLET (FP) PO SCH (10:04)
--- NOTE | 2019-04-03 10:04 | PN ---
Progress Note (short form) - Note Progress Note: s: no chest pain, palps, dizziness, dyspnea, edema improving Current Medications Acetaminophen (Tylenol -) 650 mg PO Q6H PRN PRN Reason: PAIN LEVEL 6-10 Last Admin: 04/03/19 06:23 Dose: 650 mg Amlodipine Besylate (Norvasc -) 10 mg PO DAILY [facility] Last Admin: 04/02/19 10:05 Dose: 10 mg Aspirin (Asa -) 81 mg PO DAILY [facility] Last Admin: 04/02/19 10:03 Dose: 81 mg Carvedilol (Coreg -) 25 mg PO BID [facility] Last Admin: 04/02/19 21:25 Dose: 25 mg Cholecalciferol (Vitamin D3 -) 400 unit PO DAILY [facility] Last Admin: 04/02/19 10:07 Dose: 400 unit Famotidine (Pepcid -) 20 mg PO DAILY [facility] Last Admin: 04/02/19 10:05 Dose: 20 mg Furosemide (Lasix -) 40 mg PO DAILY [facility] Heparin Sodium (Porcine) (Heparin -) 5,000 unit SQ TID [facility] Last Admin: 04/03/19 06:23 Dose: 5,000 unit Ampicillin Sodium/Sulbactam (Sodium 3 gm/ Sodium Chloride) 100 mls @ 200 mls/ hr IVPB Q6H-IV [facility] Last Admin: 04/03/19 03:37 Dose: 200 mls/hr Insulin Aspart (Novolog Vial Sliding Scale -) 1 vial SQ ACHS [facility]; Protocol Last Admin: 04/03/19 06:23 Dose: Not Given Insulin Detemir (Levemir Vial) 25 units SQ DAILY [facility] Last Admin: 04/02/19 10:04 Dose: 25 units Letrozole (Femara -) 2.5 mg PO DAILY [facility] Last Admin: 04/02/19 10:04 Dose: 2.5 mg Levothyroxine Sodium (Synthroid -) 112 mcg PO DAILY@0700 [facility] Last Admin: 04/03/19 06:23 Dose: 112 mcg Multivitamins/Minerals/Vitamin C (Tab-A-Vit -) 1 tab PO DAILY [facility] Last Admin: 04/02/19 10:06 Dose: 1 tab Polyethylene Glycol (Miralax (For Daily Use) -) 17 gm PO DAILY [facility] Last Admin: 04/02/19 10:05 Dose: Not Given Vital Signs Period Temp Pulse Resp BP Sys/Hernandez Pulse Ox Last 24 Hr 97.8 F-98.9 F 76-85 18-78 116-167/55-87 94-98 nad ncat no JVD nl S1, S2, RRR crackles at bases nl eff soft, nt, nd +bs 1+ edema aox3 not agitated no jaundice, diaphoresis Assessment/Plan EKG: sinus, first deg AVB, LAD, ILBBB, no ischemic changes echo 03/2019 nl LV function, mild MR, mild TR, PASP at least 49 mmHg CXR: + congestive changes edema, acute diastolic heart failure exacerbation - CXR with congestion, elevated BNP - echo nl LV function - cr inc, weight stable, edema improving. change to lasix po 40 mg daily lower ext cellulitis - manage per ID, primary HTN - cont norvasc - holding losartan in setting of MAURICE MAURICE - Cr 2.4 ->2.2 (baseline 1.2) - may be prerenal, ?cardiorenal - monitor Cr with diuresis
[2019-04-03] MEDS: INSULIN (LEVEMIR) 100 UNITS/ML UNITS SQ SCH (10:05)
[2019-04-03] MEDS: MULTIVITAMINS (DAILY MVI) TABLET (FP) PO SCH (10:05)
[2019-04-03] MEDS: CHOLECALCIFEROL (VIT D3) 400 UNIT (10 MCG) TABLET PO SCH (10:05)
--- NOTE | 2019-04-03 12:18 | PN ---
Progress Note, Physician History of Present Illness: darci no issues - Current Medication List Current Medications: Active Medications Acetaminophen (Tylenol -) 650 mg PO Q6H PRN PRN Reason: PAIN LEVEL 6-10 Last Admin: 04/03/19 06:23 Dose: 650 mg Amlodipine Besylate (Norvasc -) 10 mg PO DAILY [facility] Last Admin: 04/03/19 10:04 Dose: 10 mg Aspirin (Asa -) 81 mg PO DAILY [facility] Last Admin: 04/03/19 10:04 Dose: 81 mg Carvedilol (Coreg -) 25 mg PO BID [facility] Last Admin: 04/03/19 10:04 Dose: 25 mg Cholecalciferol (Vitamin D3 -) 400 unit PO DAILY [facility] Last Admin: 04/03/19 10:05 Dose: 400 unit Famotidine (Pepcid -) 20 mg PO DAILY [facility] Last Admin: 04/03/19 10:04 Dose: 20 mg Furosemide (Lasix -) 40 mg PO DAILY [facility] Heparin Sodium (Porcine) (Heparin -) 5,000 unit SQ TID [facility] Last Admin: 04/03/19 06:23 Dose: 5,000 unit Ampicillin Sodium/Sulbactam (Sodium 3 gm/ Sodium Chloride) 100 mls @ 200 mls/ hr IVPB Q6H-IV [facility] Last Admin: 04/03/19 10:05 Dose: 200 mls/hr Insulin Aspart (Novolog Vial Sliding Scale -) 1 vial SQ ACHS [facility]; Protocol Last Admin: 04/03/19 06:23 Dose: Not Given Insulin Detemir (Levemir Vial) 25 units SQ DAILY [facility] Last Admin: 04/03/19 10:05 Dose: 25 units Letrozole (Femara -) 2.5 mg PO DAILY [facility] Last Admin: 04/03/19 10:04 Dose: 2.5 mg Levothyroxine Sodium (Synthroid -) 112 mcg PO DAILY@0700 [facility] Last Admin: 04/03/19 06:23 Dose: 112 mcg Multivitamins/Minerals/Vitamin C (Tab-A-Vit -) 1 tab PO DAILY [facility] Last Admin: 04/03/19 10:05 Dose: 1 tab Polyethylene Glycol (Miralax (For Daily Use) -) 17 gm PO DAILY [facility] Last Admin: 04/03/19 10:04 Dose: 17 grams - Objective Vital Signs: Vital Signs Temperature 98.0 F 04/03/19 02:00 Pulse Rate 76 04/03/19 02:00 Respiratory Rate 18 04/03/19 10:01 Blood Pressure 167/78 04/03/19 02:00 O2 Sat by Pulse Oximetry (%) 98 04/03/19 10:01 Constitutional: Yes: Calm, Mild Distress Cardiovascular: Yes: S1, S2 Respiratory: Yes: Regular, CTA Bilaterally Gastrointestinal: Yes: Normal Bowel Sounds, Soft Musculoskeletal: Yes: Other Extremities: Yes: Erythema Edema: LLE: 1+, RLE: 1+ Neurological: Yes: Alert, Oriented Psychiatric: Yes: Alert, Oriented Labs: CBC, BMP 04/03/19 07:39 04/03/19 07:39 Assessment/Plan Problem List - Problems (1) Lower extremity cellulitis Code(s): L03.119 - CELLULITIS OF UNSPECIFIED PART OF LIMB (2) HTN (hypertension) Code(s): I10 - ESSENTIAL (PRIMARY) HYPERTENSION (3) Diabetes Code(s): E11.9 - TYPE 2 DIABETES MELLITUS WITHOUT COMPLICATIONS Qualifiers: Diabetes mellitus type: type 2 (4) History of CVA with residual deficit Code(s): I69.30 - UNSPECIFIED SEQUELAE OF CEREBRAL INFARCTION legs improving continue abx elevation of the legs
[2019-04-03 14:48] LABS: IRON SERUM 96 ug/dL (50-175); TOTAL IRON BINDING CAPACITY 276 ug/dL (250-450)
[2019-04-03] MEDS: PREGABALIN 25 MG CAPSULE PO SCH (22:46)
[2019-04-04] MEDS ORDERED: AMPICILLIN NA/SULBACTAM NA 3 GM VIAL ONE ×4 (02:48→20:46)
[2019-04-04] MEDS ORDERED: SODIUM CHLORIDE 100 ML IVPB ONE ×4 (02:49→20:46)
[2019-04-04] MEDS: AMPICILLIN NA/SULBACTAM NA 3 GM in SODIUM CHLORIDE 100 ML IVPB SCH ×4 (03:00→20:49)
[2019-04-04] MEDS: HEPARIN NA (PORCINE) 5,000 UNITS/ML 1ML VIAL SQ SCH ×3 (06:44→21:21)
[2019-04-04] MEDS: LEVOTHYROXINE NA 112 MCG TABLET (FP) PO SCH (06:44)
[2019-04-04] MEDS: INSULIN SLIDING SCALE (NOVOLOG) 1 VIAL SQ SCH ×4 (06:45→21:22)
[2019-04-04 09:52] LABS: CALCIUM 8.1 mg/dl (8.5-10); CREATININE 2.6 mg/dl (0.55-1.3); POTASSIUM 3.9 mmol/L (3.5-5.1)
[2019-04-04 09:53] LABS: HEMOGLOBIN 8.1 GM/dl (10.7-15.3); MCHC 33.5 g/dl (32.0-36.0); MEAN CELL VOLUME 104.3 fl (80-96); MEAN PLT VOLUME 7.2 fl (7.5-11.1); PLATELET COUNT 257 K/MM3 (134-434); RDW 16.4 % (11.6-15.6); WHITE BLOOD COUNT 16.1 K/mm3 (4.0-10.8)
[2019-04-04] MEDS ORDERED: FUROSEMIDE 40 MG TABLET (FP) PO SCH (10:00)
[2019-04-04] MEDS ORDERED: PREGABALIN 25 MG CAPSULE PO SCH (10:00)
--- NOTE | 2019-04-04 10:07 | PN ---
Progress Note (short form) - Note Progress Note: s: no chest pain, palps, dizziness, dyspnea. stable edema Current Medications Acetaminophen (Tylenol -) 650 mg PO Q6H PRN PRN Reason: PAIN LEVEL 6-10 Last Admin: 04/03/19 22:30 Dose: 650 mg Amlodipine Besylate (Norvasc -) 10 mg PO DAILY [facility] Last Admin: 04/03/19 10:04 Dose: 10 mg Aspirin (Asa -) 81 mg PO DAILY [facility] Last Admin: 04/03/19 10:04 Dose: 81 mg Carvedilol (Coreg -) 25 mg PO BID [facility] Last Admin: 04/03/19 21:45 Dose: 25 mg Cholecalciferol (Vitamin D3 -) 400 unit PO DAILY [facility] Last Admin: 04/03/19 10:05 Dose: 400 unit Famotidine (Pepcid -) 20 mg PO DAILY [facility] Last Admin: 04/03/19 10:04 Dose: 20 mg Furosemide (Lasix -) 40 mg PO DAILY [facility] Heparin Sodium (Porcine) (Heparin -) 5,000 unit SQ TID [facility] Last Admin: 04/04/19 06:44 Dose: 5,000 unit Ampicillin Sodium/Sulbactam (Sodium 3 gm/ Sodium Chloride) 100 mls @ 200 mls/ hr IVPB Q6H-IV [facility] Last Admin: 04/04/19 09:22 Dose: 200 mls/hr Insulin Aspart (Novolog Vial Sliding Scale -) 1 vial SQ ACHS [facility]; Protocol Last Admin: 04/04/19 06:45 Dose: Not Given Insulin Detemir (Levemir Vial) 25 units SQ DAILY [facility] Last Admin: 04/03/19 10:05 Dose: 25 units Letrozole (Femara -) 2.5 mg PO DAILY [facility] Last Admin: 04/03/19 10:04 Dose: 2.5 mg Levothyroxine Sodium (Synthroid -) 112 mcg PO DAILY@0700 [facility] Last Admin: 04/04/19 06:44 Dose: 112 mcg Multivitamins/Minerals/Vitamin C (Tab-A-Vit -) 1 tab PO DAILY [facility] Last Admin: 04/03/19 10:05 Dose: 1 tab Polyethylene Glycol (Miralax (For Daily Use) -) 17 gm PO DAILY [facility] Last Admin: 04/03/19 10:04 Dose: 17 grams Pregabalin (Lyrica -) 25 mg PO BID [facility] Last Admin: 04/03/19 22:46 Dose: 25 mg Vital Signs Period Temp Pulse Resp BP Sys/Hernandez Pulse Ox Last 24 Hr 97.3 F-98.2 F 80-85 16-17 148-160/50-68 94-97 nad ncat no JVD nl S1, S2, RRR crackles at bases nl eff soft, nt, nd +bs 1+ edema aox3 not agitated no jaundice, diaphoresis Assessment/Plan EKG: sinus, first deg AVB, LAD, ILBBB, no ischemic changes echo 03/2019 nl LV function, mild MR, mild TR, PASP at least 49 mmHg CXR: + congestive changes edema, acute diastolic heart failure exacerbation - CXR with congestion, elevated BNP - echo nl LV function - cr pending, weight stable, edema improving. cont lasix po 40 mg daily lower ext cellulitis - manage per ID, primary HTN - cont norvasc - holding losartan in setting of MAURICE MAURICE - Cr 2.4 ->2.2 (baseline 1.2) - may be prerenal, ?cardiorenal - monitor Cr with diuresis
--- NOTE | 2019-04-04 11:00 | PN ---
Physical Exam: SUBJECTIVE: Patient seen and examined, denies sob, chest pain, c/o generalized neuropathy pain Creat 2.6 Renal Consult OBJECTIVE: Vital Signs Period Temp Pulse Resp BP Sys/Hernandez Pulse Ox Last 24 Hr 97.3 F-98.2 F 80-85 16-17 148-160/50-68 94-97 GENERAL: The patient is awake, alert, and fully oriented, in no acute distress. HEAD: Normal with no signs of trauma. EYES: PERRL, extraocular movements intact, sclera anicteric, conjunctiva clear. No ptosis. ENT: Ears normal, nares patent, oropharynx clear without exudates, moist mucous membranes. NECK: Trachea midline, full range of motion, supple. LUNGS: Breath sounds equal, clear to auscultation bilaterally, no wheezes, no crackles, no accessory muscle use. HEART: Regular rate and rhythm, S1, S2 without murmur, rub or gallop. ABDOMEN: Soft, nontender, nondistended, normoactive bowel sounds, no guarding, no rebound, no hepatosplenomegaly, no masses. EXTREMITIES: 2+ pulses, warm, well-perfused, no edema. NEUROLOGICAL: Cranial nerves II through XII grossly intact. Normal speech, gait not observed. PSYCH: Normal mood, normal affect. SKIN: Warm, dry, normal turgor, no rashes or lesions noted Laboratory Results - last 24 hr 04/03/19 04/03/19 04/04/19 07:40 21:47 06:39 WBC RBC Hgb Hct MCV MCH MCHC RDW Plt Count MPV Absolute Neuts (auto) Neutrophils % Lymphocytes % Sodium Potassium Chloride Carbon Dioxide Anion Gap BUN Creatinine Est GFR (CKD-EPI)AfAm Est GFR (CKD-EPI)NonAf POC Glucometer 225 139 Random Glucose Calcium Iron 96 TIBC 276 Iron Saturation 34 Unsaturated IBC 180 L 04/04/19 04/04/19 07:00 07:00 WBC 16.1 H RBC 2.30 L Hgb 8.1 L Hct 24.0 L MCV 104.3 H MCH 35.0 H MCHC 33.5 RDW 16.4 H Plt Count 257 MPV 7.2 L Absolute Neuts (auto) 11.0 Neutrophils % No Result Required. Lymphocytes % No Result Required. Sodium 139 Potassium 3.9 Chloride 107 Carbon Dioxide 21 Anion Gap 11 BUN 53.0 H Creatinine 2.6 H Est GFR (CKD-EPI)AfAm 18.22 Est GFR (CKD-EPI)NonAf 15.72 POC Glucometer Random Glucose 90 Calcium 8.1 L Iron TIBC Iron Saturation Unsaturated IBC Active Medications Generic Name Dose Route Start Last Admin Trade Name Freq PRN Reason Stop Dose Admin Acetaminophen 650 mg 03/30/19 18:47 04/03/19 22:30 Tylenol - PO 650 mg Q6H PRN Administration PAIN LEVEL 6-10 Amlodipine Besylate 10 mg 03/31/19 13:05 04/03/19 10:04 Norvasc - PO 10 mg DAILY [facility] Administration Aspirin 81 mg 03/27/19 10:00 04/03/19 10:04 Asa - PO 81 mg DAILY [facility] Administration Carvedilol 25 mg 03/27/19 10:00 04/03/19 21:45 Coreg - PO 25 mg BID [facility] Administration Cholecalciferol 400 unit 03/27/19 10:00 04/03/19 10:05 Vitamin D3 - PO 400 unit DAILY [facility] Administration Famotidine 20 mg 03/27/19 10:00 04/03/19 10:04 Pepcid - PO 20 mg DAILY [facility] Administration Furosemide 40 mg 04/04/19 10:00 Lasix - PO DAILY [facility] Heparin Sodium (Porcine) 5,000 unit 03/27/19 06:00 04/04/19 06:44 Heparin - SQ 5,000 unit TID [facility] Administration Ampicillin Sodium/Sulbactam 100 mls @ 200 mls/hr 03/29/19 10:30 04/04/19 09: 22 Sodium 3 gm/ Sodium Chloride IVPB 200 mls/hr Q6H-IV [facility] Administration Insulin Aspart 1 vial 03/27/19 11:00 04/04/19 06:45 Novolog Vial Sliding Scale - SQ Not Given ACHS [facility] Protocol Insulin Detemir 25 units 03/27/19 11:13 04/03/19 10:05 Levemir Vial SQ 25 units DAILY [facility] Administration Letrozole 2.5 mg 03/27/19 10:00 04/03/19 10:04 Femara - PO 2.5 mg DAILY [facility] Administration Levothyroxine Sodium 112 mcg 03/30/19 07:00 04/04/19 06:44 Synthroid - PO 112 mcg DAILY@0700 [facility] Administration Multivitamins/Minerals/Vitamin C 1 tab 12/21/19 10:00 04/03/19 10:05 Tab-A-Vit - PO 1 tab DAILY [facility] Administration Polyethylene Glycol 17 gm 03/27/19 10:00 04/03/19 10:04 Miralax (For Daily Use) - PO 17 grams DAILY [facility] Administration Pregabalin 25 mg 04/03/19 22:45 04/03/19 22:46 Lyrica - PO 25 mg BID [facility] Administration ASSESSMENT/PLAN: 89 year-old female with a PMH significant for HTN, IDDM, CKD, left breast CA,CVA , GERD, hypothyroidism, and chronic leukocytosis. Admitted for lower extremity cellulitis and acute on chronic diastolic heart failure. *Lower extremity cellulitis- improving - on Unasyn - ID following - afebrile, with leukocytosis - DVT ruled out - pain control *Diastolic heart failure, acute on chronic -August 2012 Echo: LV normal, diastolic dysfunction; RV not well-visualized; trace MR; mild TR -lower extremity edema and congestive changes on CXR - BNP 1853 -echo on 03/29/19- EF 60-65% -s/p IV Lasix, now switched to PO Lasix as per card -cardiology following *Acute on chronic kidney injury ( baseline 1.2) -Cr 2.4 on admission, remains elevated -continue to trend - Renal US reviewed : No acute pathology, large post void urine - post void urine < 50 cc -Lasix dose decreased to 40mg daily instead of bid -Renal Consult *HTN- BP stable - will cont on BB, Lasix and Norvasc -Holding Losartan due to MAURICE *Diabetes mellitus type 2 - FS monitoring - Insulin sliding scale - Diabetic diet * Hx of Left breast cancer -continue letrozole *GERD -continue Pepcid *Hypothyroidism -TSH 8.14 (03/27) -increased levothyroxine 112mcg daily *History of CVA with residual deficit * Diabetic neuropathy - will cont on pain meds * Anemia - chronic,likely due to CKD - Fecal occult negative - FE studies wnl *FEN Fluids: PO intake adequate Electrolytes: replete as indicated Nutrition: diabetic, low sodium DVT prophylaxis: subq heparin Physical therapy- Following rec Rehab Dispo: continues to require inpatient care. Full code. Visit type - Emergency Visit Emergency Visit: Yes ED Registration Date: 03/27/19 Care time: The patient presented to the Emergency Department on the above date and was hospitalized for further evaluation of their emergent condition. - New Patient This patient is new to me today: Yes Date on this admission: 04/04/19 - Critical Care Critical Care patient: No
[2019-04-04] MEDS: ASPIRIN 81 MG CHEWABLE TABLETS PO SCH (11:20)
[2019-04-04] MEDS: CARVEDILOL 12.5 MG TABLET (FP) PO SCH ×2 (11:21→21:21)
[2019-04-04] MEDS: INSULIN (LEVEMIR) 100 UNITS/ML UNITS SQ SCH (11:21)
[2019-04-04] MEDS: LETROZOLE 2.5 MG TABLET (FP) PO SCH (11:21)
[2019-04-04] MEDS: PREGABALIN 25 MG CAPSULE PO SCH ×2 (11:22→21:22)
[2019-04-04] MEDS: FAMOTIDINE 20 MG TABLET PO SCH (11:23)
[2019-04-04] MEDS: amLODIPine BESYLATE 5 MG TABLET (FP) PO SCH (11:23)
[2019-04-04] MEDS: POLYETHYLENE GLYCOL 3350 119 GM BTL PO SCH (11:23)
[2019-04-04] MEDS: MULTIVITAMINS (DAILY MVI) TABLET (FP) PO SCH (11:24)
[2019-04-04] MEDS: CHOLECALCIFEROL (VIT D3) 400 UNIT (10 MCG) TABLET PO SCH (11:26)
[2019-04-04 13:19] LABS: PLATELET ESTIMATE ADEQUATE
[2019-04-04] MEDS ORDERED: VANCOMYCIN 1 GRAM (PRE-DOCKED) 1,000 MG/250 ML BAG IVPB ONE (15:49)
--- NOTE | 2019-04-04 15:51 | PN ---
Progress Note, Physician History of Present Illness: stable legs look more swollen c/o of pain in the legs - Current Medication List Current Medications: Active Medications Acetaminophen (Tylenol -) 650 mg PO Q6H PRN PRN Reason: PAIN LEVEL 6-10 Last Admin: 04/03/19 22:30 Dose: 650 mg Amlodipine Besylate (Norvasc -) 10 mg PO DAILY [facility] Last Admin: 04/04/19 11:23 Dose: 10 mg Aspirin (Asa -) 81 mg PO DAILY [facility] Last Admin: 04/04/19 11:20 Dose: 81 mg Carvedilol (Coreg -) 25 mg PO BID [facility] Last Admin: 04/04/19 11:21 Dose: 25 mg Cholecalciferol (Vitamin D3 -) 400 unit PO DAILY [facility] Last Admin: 04/04/19 11:26 Dose: 400 unit Famotidine (Pepcid -) 20 mg PO DAILY [facility] Last Admin: 04/04/19 11:23 Dose: 20 mg Furosemide (Lasix -) 40 mg PO DAILY [facility] Last Admin: 04/04/19 11:21 Dose: 40 mg Heparin Sodium (Porcine) (Heparin -) 5,000 unit SQ TID [facility] Last Admin: 04/04/19 15:06 Dose: 5,000 unit Ampicillin Sodium/Sulbactam (Sodium 3 gm/ Sodium Chloride) 100 mls @ 200 mls/ hr IVPB Q6H-IV [facility] Last Admin: 04/04/19 15:06 Dose: 200 mls/hr Insulin Aspart (Novolog Vial Sliding Scale -) 1 vial SQ ACHS [facility]; Protocol Last Admin: 04/04/19 12:11 Dose: 4 units Insulin Detemir (Levemir Vial) 25 units SQ DAILY [facility] Last Admin: 04/04/19 11:21 Dose: 25 units Letrozole (Femara -) 2.5 mg PO DAILY [facility] Last Admin: 04/04/19 11:21 Dose: 2.5 mg Levothyroxine Sodium (Synthroid -) 112 mcg PO DAILY@0700 [facility] Last Admin: 04/04/19 06:44 Dose: 112 mcg Multivitamins/Minerals/Vitamin C (Tab-A-Vit -) 1 tab PO DAILY [facility] Last Admin: 04/04/19 11:24 Dose: 1 tab Polyethylene Glycol (Miralax (For Daily Use) -) 17 gm PO DAILY [facility] Last Admin: 04/04/19 11:23 Dose: Not Given Pregabalin (Lyrica -) 25 mg PO BID [facility] Last Admin: 04/04/19 11:22 Dose: 25 mg - Objective Vital Signs: Vital Signs Temperature 98.4 F 04/04/19 14:12 Pulse Rate 78 04/04/19 14:12 Respiratory Rate 17 04/04/19 14:12 Blood Pressure 150/62 04/04/19 14:12 O2 Sat by Pulse Oximetry (%) 96 04/04/19 14:11 Constitutional: Yes: Calm, Mild Distress Cardiovascular: Yes: S1, S2 Respiratory: Yes: Regular, CTA Bilaterally Gastrointestinal: Yes: Normal Bowel Sounds, Soft Musculoskeletal: Yes: Other Extremities: Yes: Erythema, Other Edema: LLE: 1+, RLE: 1+ Neurological: Yes: Alert, Oriented Psychiatric: Yes: Alert, Oriented Labs: CBC, BMP 04/04/19 07:00 04/04/19 07:00 Assessment/Plan Problem List - Problems (1) Lower extremity cellulitis Code(s): L03.119 - CELLULITIS OF UNSPECIFIED PART OF LIMB (2) HTN (hypertension) Code(s): I10 - ESSENTIAL (PRIMARY) HYPERTENSION (3) Diabetes Code(s): E11.9 - TYPE 2 DIABETES MELLITUS WITHOUT COMPLICATIONS Qualifiers: Diabetes mellitus type: type 2 (4) History of CVA with residual deficit Code(s): I69.30 - UNSPECIFIED SEQUELAE OF CEREBRAL INFARCTION legs more swollen today continue abx elevation of the leg
[2019-04-04] MEDS: ACETAMINOPHEN 325 MG TABLET (FP) PO PRN (22:50)
[2019-04-05] MEDS: AMPICILLIN NA/SULBACTAM NA 3 GM in SODIUM CHLORIDE 100 ML IVPB SCH ×4 (03:53→20:19)
[2019-04-05] MEDS: LEVOTHYROXINE NA 112 MCG TABLET (FP) PO SCH (06:32)
[2019-04-05] MEDS: HEPARIN NA (PORCINE) 5,000 UNITS/ML 1ML VIAL SQ SCH ×3 (06:33→21:18)
[2019-04-05 08:17] LABS: BASO % 0.6 % (0-2.0); EOS % 8.7 % (0-4.5); HEMATOCRIT 23.4 % (32.4-45.2); HEMOGLOBIN 7.7 GM/dl (10.7-15.3); LYMPH % 14.3 % (8-40); MCH 33.4 pg (25.7-33.7); MCHC 32.8 g/dl (32.0-36.0); MEAN CELL VOLUME 101.8 fl (80-96); MEAN PLT VOLUME 7.2 fl (7.5-11.1); MONO % 7.3 % (3.8-10.2); NEUT % 69.1 % (42.8-82.8); PLATELET COUNT 271 K/MM3 (134-434); WHITE BLOOD COUNT 17.4 K/mm3 (4.0-10.8)
[2019-04-05 08:19] LABS: ALBUMIN 2.6 g/dl (3.4-5.0); BILIRUBIN,TOTAL 0.2 mg/dl (0.2-1); CREATININE 2.4 mg/dl (0.55-1.3); MAGNESIUM 2.1 mg/dL (1.8-2.4); POTASSIUM 3.5 mmol/L (3.5-5.1); TOT PROT 5.8 g/dl (6.4-8.2)
[2019-04-05] MEDS: MULTIVITAMINS (DAILY MVI) TABLET (FP) PO SCH (10:00)
[2019-04-05] MEDS: CHOLECALCIFEROL (VIT D3) 400 UNIT (10 MCG) TABLET PO SCH (10:05)
[2019-04-05] MEDS: CARVEDILOL 12.5 MG TABLET (FP) PO SCH ×2 (10:10→21:18)
[2019-04-05] MEDS: amLODIPine BESYLATE 5 MG TABLET (FP) PO SCH (10:10)
[2019-04-05] MEDS: ASPIRIN 81 MG CHEWABLE TABLETS PO SCH (10:10)
[2019-04-05] MEDS: FAMOTIDINE 20 MG TABLET PO SCH (10:10)
[2019-04-05] MEDS: POLYETHYLENE GLYCOL 3350 119 GM BTL PO SCH (10:15)
[2019-04-05] MEDS: INSULIN (LEVEMIR) 100 UNITS/ML UNITS SQ SCH (10:15)
[2019-04-05] MEDS: LETROZOLE 2.5 MG TABLET (FP) PO SCH (10:15)
[2019-04-05] MEDS: PREGABALIN 25 MG CAPSULE PO SCH ×2 (10:20→21:18)
[2019-04-05] MEDS: INSULIN SLIDING SCALE (NOVOLOG) 1 VIAL SQ SCH ×3 (11:15→21:31)
--- NOTE | 2019-04-05 12:36 | CONSULT ---
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 I was called to evaluate her for elevated creatinine. She denies dysuria or hematuria. She denies nsaid use. She feels that her edema improved with lasix. She was started on lasix as outpt as well. Her creatinine was 2.4 on admission and did not change much. She is awake and appears comfortable. Pt has history of proteinuria however never came for follow up. 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, Peripheral Neuropathy, Other (guillain barre syndrome, hx bacterial meningitis 1953) Cardio/Vascular: Yes: HTN Gastrointestinal: Yes: GERD Endocrine: Yes: Diabetes Mellitus - Alcohol/Substance Use Hx Alcohol Use: No - Smoking History Smoking history: Never smoked Have you smoked in the past 12 months: No Aproximately how many cigarettes per day: 0 Home Medications - Allergies Allergies/Adverse Reactions: Allergies Allergy/AdvReac Type Severity Reaction Status Date / Time NSAIDS (Non-Steroidal Allergy Severe Difficulty Verified 08/07/17 16:42 Anti-Inflamma Breathing ibuprofen Allergy Intermediate Rash Verified 08/07/17 16:42 meloxicam [From Mobic] Allergy Intermediate Rash Verified 08/07/17 16:42 rosiglitazone maleate Allergy Verified 08/07/17 16:42 [From Avandia] albuterol AdvReac Intermediate Elevated Verified 08/07/17 16:42 Blood Pressure epinephrine AdvReac Intermediate Elevated Verified 08/07/17 16:42 Blood Pressure oxycodone HCl [From Percodan] AdvReac Intermediate Elevated Verified 08/07/17 16 :42 Blood Pressure oxycodone terephthalate AdvReac Intermediate Elevated Verified 08/07/17 16:42 [From Percodan] Blood Pressure flu shot AdvReac Severe [place]ILLAIN Uncoded 07/27/14 19:22 BARRE SYNDROME - Home Medications Home Medications: Ambulatory Orders Multivitamins [Multivit ([facility] Formul[facility])] 1 tab PO DAILY 06/10/14 Aspirin [ASA -] 81 mg PO DAILY #0 06/14/14 Amlodipine Besylate 5 mg PO DAILY 06/23/18 Calcium Carbonate/Vitamin D3 [Calcium 500-Vit D3 400 Tablet] 1 each PO DAILY Carvedilol [Coreg -] 25 mg PO BID 06/23/18 Cholecalciferol (Vitamin D3) [Vitamin D -] 400 unit PO DAILY 06/23/18 Famotidine [Pepcid] 40 mg PO DAILY 06/24/18 Furosemide [Lasix -] 40 mg PO BID 06/24/18 Letrozole 2.5 mg PO DAILY 06/24/18 Losartan Potassium 100 mg PO DAILY 06/24/18 Potassium Chloride [Klor-Con M20] 20 meq PO DAILY 06/24/18 Tramadol HCl 50 mg PO TID PRN 06/24/18 Insulin Glargine,Hum.rec.anlog [Lantus Solostar PEN (NF)] 25 units SQ DAILY Pregabalin [Lyrica] 25 mg PO BID 03/26/19 Family Medical History Family History: Denies Review of Systems - Review of Systems Constitutional: reports: Malaise Eyes: reports: No Symptoms HENT: reports: No Symptoms Neck: reports: No Symptoms Cardiovascular: reports: Edema, Shortness of Breath Respiratory: reports: SOB, SOB on Exertion Gastrointestinal: reports: No Symptoms Genitourinary: reports: No Symptoms Musculoskeletal: reports: No Symptoms Integumentary: reports: No Symptoms Neurological: reports: No Symptoms Endocrine: reports: No Symptoms Hematology/Lymphatic: reports: No Symptoms Psychiatric: reports: No Symptoms Physical Exam Vital Signs: Vital Signs Temperature 97.5 F L 04/05/19 04:00 Pulse Rate 92 H 04/05/19 07:48 Respiratory Rate 19 04/05/19 07:48 Blood Pressure 173/64 H 04/05/19 07:48 O2 Sat by Pulse Oximetry (%) 92 L 04/05/19 07:48 Constitutional: Yes: Calm Eyes: Yes: Conjunctiva Clear HENT: Yes: Atraumatic Neck: Yes: Supple Cardiovascular: Yes: S1, S2 Respiratory: Yes: CTA Bilaterally Gastrointestinal: Yes: Normal Bowel Sounds, Soft Musculoskeletal: Yes: WNL Edema: Yes Edema: LLE: 1+, RLE: 1+ Integumentary: Yes: Venous Stasis Changes Neurological: Yes: Oriented Psychiatric: Yes: Oriented Labs: CBC, BMP 04/05/19 07:22 04/05/19 07:22 Imaging - Results Chest X-ray: Report Reviewed Ultrasound: Report Reviewed Problem List - Problems (1) Acute kidney injury superimposed on CKD Code(s): N17.9 - ACUTE KIDNEY FAILURE, UNSPECIFIED; N18.9 - CHRONIC KIDNEY DISEASE, UNSPECIFIED (2) Bilateral leg edema Code(s): R60.0 - LOCALIZED EDEMA (3) HTN (hypertension) Code(s): I10 - ESSENTIAL (PRIMARY) HYPERTENSION Assessment/Plan Current Medications Generic Name Dose Route Start Last Admin Trade Name Freq PRN Reason Stop Dose Admin Acetaminophen 650 mg 03/30/19 18:47 04/04/19 22:50 Tylenol - PO 650 mg Q6H PRN Administration PAIN LEVEL 6-10 Amlodipine Besylate 10 mg 03/31/19 13:05 04/04/19 11:23 Norvasc - PO 10 mg DAILY [facility]IT Administration Aspirin 81 mg 03/27/19 10:00 04/04/19 11:20 Asa - PO 81 mg DAILY [facility] Administration Carvedilol 25 mg 03/27/19 10:00 04/04/19 21:21 Coreg - PO 25 mg BID [facility] Administration Cholecalciferol 400 unit 03/27/19 10:00 04/04/19 11:26 Vitamin D3 - PO 400 unit DAILY [facility] Administration Famotidine 20 mg 03/27/19 10:00 04/04/19 11:23 Pepcid - PO 20 mg DAILY [facility] Administration Heparin Sodium (Porcine) 5,000 unit 03/27/19 06:00 04/05/19 06:33 Heparin - SQ 5,000 unit TID [facility] Administration Ampicillin Sodium/Sulbactam 100 mls @ 200 mls/hr 03/29/19 10:30 04/05/19 03: 53 Sodium 3 gm/ Sodium Chloride IVPB 200 mls/hr Q6H-IV [facility] Administration Insulin Aspart 1 vial 03/27/19 11:00 04/04/19 21:22 Novolog Vial Sliding Scale - SQ 6 units ACHS [facility] Administration Protocol Insulin Detemir 25 units 03/27/19 11:13 04/04/19 11:21 Levemir Vial SQ 25 units DAILY [facility] Administration Letrozole 2.5 mg 03/27/19 10:00 04/04/19 11:21 Femara - PO 2.5 mg DAILY [facility] Administration Levothyroxine Sodium 112 mcg 03/30/19 07:00 04/05/19 06:32 Synthroid - PO 112 mcg DAILY@0700 [facility] Administration Multivitamins/Minerals/Vitamin C 1 tab 03/27/19 10:00 04/04/19 11:24 Tab-A-Vit - PO 1 tab DAILY [facility] Administration Polyethylene Glycol 17 gm 03/27/19 10:00 04/04/19 11:23 Miralax (For Daily Use) - PO Not Given DAILY [facility] Pregabalin 25 mg 04/03/19 22:45 04/04/19 21:22 Lyrica - PO 25 mg BID [facility] Administration Impression 1. proteinuria 2. hypothyroid 3. HTN 4. DM 5. UTI 6. breast cancer 7. MAURICE 8. 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
--- NOTE | 2019-04-05 13:18 | PN ---
Progress Note, Physician - Current Medication List Current Medications: Active Medications Acetaminophen (Tylenol -) 650 mg PO Q6H PRN PRN Reason: PAIN LEVEL 6-10 Last Admin: 04/04/19 22:50 Dose: 650 mg Amlodipine Besylate (Norvasc -) 10 mg PO DAILY [facility] Last Admin: 04/04/19 11:23 Dose: 10 mg Aspirin (Asa -) 81 mg PO DAILY [facility] Last Admin: 04/04/19 11:20 Dose: 81 mg Carvedilol (Coreg -) 25 mg PO BID [facility] Last Admin: 04/04/19 21:21 Dose: 25 mg Cholecalciferol (Vitamin D3 -) 400 unit PO DAILY [facility] Last Admin: 04/04/19 11:26 Dose: 400 unit Famotidine (Pepcid -) 20 mg PO DAILY [facility] Last Admin: 04/04/19 11:23 Dose: 20 mg Heparin Sodium (Porcine) (Heparin -) 5,000 unit SQ TID [facility] Last Admin: 04/05/19 06:33 Dose: 5,000 unit Ampicillin Sodium/Sulbactam (Sodium 3 gm/ Sodium Chloride) 100 mls @ 200 mls/ hr IVPB Q6H-IV [facility] Last Admin: 04/05/19 03:53 Dose: 200 mls/hr Insulin Aspart (Novolog Vial Sliding Scale -) 1 vial SQ ACHS [facility]; Protocol Last Admin: 04/04/19 21:22 Dose: 6 units Insulin Detemir (Levemir Vial) 25 units SQ DAILY [facility] Last Admin: 04/04/19 11:21 Dose: 25 units Letrozole (Femara -) 2.5 mg PO DAILY [facility] Last Admin: 04/04/19 11:21 Dose: 2.5 mg Levothyroxine Sodium (Synthroid -) 112 mcg PO DAILY@0700 [facility] Last Admin: 04/05/19 06:32 Dose: 112 mcg Multivitamins/Minerals/Vitamin C (Tab-A-Vit -) 1 tab PO DAILY [facility] Last Admin: 04/04/19 11:24 Dose: 1 tab Polyethylene Glycol (Miralax (For Daily Use) -) 17 gm PO DAILY [facility] Last Admin: 04/04/19 11:23 Dose: Not Given Pregabalin (Lyrica -) 25 mg PO BID [facility] Last Admin: 04/04/19 21:22 Dose: 25 mg - Objective Vital Signs: Vital Signs Temperature 97.5 F L 04/05/19 04:00 Pulse Rate 92 H 04/05/19 07:48 Respiratory Rate 19 04/05/19 07:48 Blood Pressure 173/64 H 04/05/19 07:48 O2 Sat by Pulse Oximetry (%) 92 L 04/05/19 07:48 Labs: CBC, BMP 04/05/19 07:22 04/05/19 07:22
[2019-04-05 15:12] VITALS: BMI 32.5
--- NOTE | 2019-04-05 15:46 | PN ---
Progress Note (short form) - Note Progress Note: s: no chest pain, palps, dizziness, dyspnea. stable edema. Current Medications Acetaminophen (Tylenol -) 650 mg PO Q6H PRN PRN Reason: PAIN LEVEL 6-10 Last Admin: 04/04/19 22:50 Dose: 650 mg Amlodipine Besylate (Norvasc -) 10 mg PO DAILY [facility] Last Admin: 04/05/19 10:10 Dose: 10 mg Aspirin (Asa -) 81 mg PO DAILY [facility] Last Admin: 04/05/19 10:10 Dose: 81 mg Carvedilol (Coreg -) 25 mg PO BID [facility] Last Admin: 04/05/19 10:10 Dose: 25 mg Cholecalciferol (Vitamin D3 -) 400 unit PO DAILY [facility] Last Admin: 04/05/19 10:05 Dose: 400 unit Famotidine (Pepcid -) 20 mg PO DAILY [facility] Last Admin: 04/05/19 10:10 Dose: 20 mg Heparin Sodium (Porcine) (Heparin -) 5,000 unit SQ TID [facility] Last Admin: 04/05/19 14:53 Dose: 5,000 unit Ampicillin Sodium/Sulbactam (Sodium 3 gm/ Sodium Chloride) 100 mls @ 200 mls/ hr IVPB Q6H-IV [facility] Last Admin: 04/05/19 09:05 Dose: 200 mls/hr Insulin Aspart (Novolog Vial Sliding Scale -) 1 vial SQ ACHS [facility]; Protocol Last Admin: 04/05/19 11:15 Dose: 25 units Insulin Detemir (Levemir Vial) 25 units SQ DAILY [facility] Last Admin: 04/05/19 10:15 Dose: 25 units Letrozole (Femara -) 2.5 mg PO DAILY [facility] Last Admin: 04/05/19 10:15 Dose: 2.5 mg Levothyroxine Sodium (Synthroid -) 112 mcg PO DAILY@0700 [facility] Last Admin: 04/05/19 06:32 Dose: 112 mcg Multivitamins/Minerals/Vitamin C (Tab-A-Vit -) 1 tab PO DAILY [facility] Last Admin: 04/05/19 10:00 Dose: 1 tab Polyethylene Glycol (Miralax (For Daily Use) -) 17 gm PO DAILY [facility] Last Admin: 04/05/19 10:15 Dose: 17 grams Pregabalin (Lyrica -) 25 mg PO BID [facility] Last Admin: 04/05/19 10:20 Dose: 25 mg Vital Signs Period Temp Pulse Resp BP Sys/Hernandez Pulse Ox Last 24 Hr 97.5 F-98.7 F 77-92 18-20 120-173/53-85 92-98 nad ncat no JVD nl S1, S2, RRR crackles at bases nl eff soft, nt, nd +bs 1+ edema aox3 not agitated no jaundice, diaphoresis Assessment/Plan EKG: sinus, first deg AVB, LAD, ILBBB, no ischemic changes echo 03/2019 nl LV function, mild MR, mild TR, PASP at least 49 mmHg CXR: + congestive changes edema, acute diastolic heart failure exacerbation - CXR with congestion, elevated BNP - echo nl LV function - cr rising, weight stable - PO lasix held lower ext cellulitis - manage per ID, primary HTN - cont norvasc - holding losartan in setting of MAURICE MAURICE - Cr 2.4 ->2.2 (baseline 1.2) - may be prerenal, ?cardiorenal - renal consulted
[2019-04-05] MEDS ORDERED: SODIUM CHLORIDE 100 ML IVPB ONE ×2 (16:29→20:13)
[2019-04-05] MEDS ORDERED: AMPICILLIN NA/SULBACTAM NA 3 GM VIAL ONE ×2 (16:29→20:12)
--- NOTE | 2019-04-05 16:49 | PN ---
Documentation entered by Precious Ritter SCRIBE, acting as scribe for Krystyna Franklin NP. Physical Exam: SUBJECTIVE: Patient seen and examined. Patient reported having SOB at 6am this morning while she was laying in bed. OBJECTIVE: Vital Signs Period Temp Pulse Resp BP Sys/Hernandez Pulse Ox Last 24 Hr 97.5 F-98.4 F 78-92 17-20 143-173/53-64 92-98 GENERAL: The patient is awake, alert, and fully oriented, in no acute distress. LUNGS: Breath sounds equal, clear to auscultation bilaterally, no wheezes, no crackles, no accessory muscle use. HEART: Regular rate and rhythm, S1, S2 without murmur, rub or gallop. ABDOMEN: Soft, nontender, nondistended EXTREMITIES: Mild erythema. 2+ bilateral edema. Venous stasis changes. Dry flaky skin. NEUROLOGICAL: Cranial nerves II through XII grossly intact. Normal speech, gait not observed. Laboratory Results - last 24 hr 04/04/19 04/04/19 04/04/19 07:00 07:00 11:56 WBC 16.1 H RBC 2.30 L Hgb 8.1 L Hct 24.0 L MCV 104.3 H MCH 35.0 H MCHC 33.5 RDW 16.4 H Plt Count 257 MPV 7.2 L Absolute Neuts (auto) 11.0 Neutrophils % No Result Required. Neutrophils % (Manual) 57.0 Band Neutrophils % 5.0 Lymphocytes % No Result Required. Lymphocytes % (Manual) 14.0 Monocytes % (Manual) 10 Eosinophils % (Manual) 6.0 H Basophils % (Manual) 4.0 H Myelocytes % (Man) 1 Metamyelocytes 3 H Platelet Estimate Adequate Sodium 139 Potassium 3.9 Chloride 107 Carbon Dioxide 21 Anion Gap 11 BUN 53.0 H Creatinine 2.6 H Est GFR (CKD-EPI)AfAm 18.22 Est GFR (CKD-EPI)NonAf 15.72 POC Glucometer 216 Random Glucose 90 Calcium 8.1 L Magnesium Total Bilirubin AST ALT Alkaline Phosphatase Total Protein Albumin 04/04/19 04/04/19 04/05/19 16:37 21:12 06:45 WBC RBC Hgb Hct MCV MCH MCHC RDW Plt Count MPV Absolute Neuts (auto) Neutrophils % Neutrophils % (Manual) Band Neutrophils % Lymphocytes % Lymphocytes % (Manual) Monocytes % (Manual) Eosinophils % (Manual) Basophils % (Manual) Myelocytes % (Man) Metamyelocytes Platelet Estimate Sodium Potassium Chloride Carbon Dioxide Anion Gap BUN Creatinine Est GFR (CKD-EPI)AfAm Est GFR (CKD-EPI)NonAf POC Glucometer 172 268 109 Random Glucose Calcium Magnesium Total Bilirubin AST ALT Alkaline Phosphatase Total Protein Albumin 04/05/19 07:22 WBC RBC Hgb Hct MCV MCH MCHC RDW Plt Count MPV Absolute Neuts (auto) Neutrophils % Neutrophils % (Manual) Band Neutrophils % Lymphocytes % Lymphocytes % (Manual) Monocytes % (Manual) Eosinophils % (Manual) Basophils % (Manual) Myelocytes % (Man) Metamyelocytes Platelet Estimate Sodium 138 Potassium 3.5 Chloride 106 Carbon Dioxide 21 Anion Gap 11 BUN 46.0 H Creatinine 2.4 H Est GFR (CKD-EPI)AfAm 20.07 Est GFR (CKD-EPI)NonAf 17.32 POC Glucometer Random Glucose 116 H Calcium 8.0 L Magnesium 2.1 Total Bilirubin 0.2 AST 23 ALT 20 Alkaline Phosphatase 74 Total Protein 5.8 L Albumin 2.6 L Active Medications Generic Name Dose Route Start Last Admin Trade Name Freq PRN Reason Stop Dose Admin Acetaminophen 650 mg 03/30/19 18:47 04/04/19 22:50 Tylenol - PO 650 mg Q6H PRN Administration PAIN LEVEL 6-10 Amlodipine Besylate 10 mg 03/31/19 13:05 04/04/19 11:23 Norvasc - PO 10 mg DAILY [facility] Administration Aspirin 81 mg 03/27/19 10:00 04/04/19 11:20 Asa - PO 81 mg DAILY [facility] Administration Carvedilol 25 mg 03/27/19 10:00 04/04/19 21:21 Coreg - PO 25 mg BID [facility] Administration Cholecalciferol 400 unit 03/27/19 10:00 04/04/19 11:26 Vitamin D3 - PO 400 unit DAILY [facility] Administration Famotidine 20 mg 03/27/19 10:00 04/04/19 11:23 Pepcid - PO 20 mg DAILY [facility] Administration Heparin Sodium (Porcine) 5,000 unit 03/27/19 06:00 04/05/19 06:33 Heparin - SQ 5,000 unit TID [facility] Administration Ampicillin Sodium/Sulbactam 100 mls @ 200 mls/hr 03/29/19 10:30 04/05/19 03: 53 Sodium 3 gm/ Sodium Chloride IVPB 200 mls/hr Q6H-IV [facility] Administration Insulin Aspart 1 vial 03/27/19 11:00 04/04/19 21:22 Novolog Vial Sliding Scale - SQ 6 units ACHS [facility] Administration Protocol Insulin Detemir 25 units 03/27/19 11:13 04/04/19 11:21 Levemir Vial SQ 25 units DAILY [facility] Administration Letrozole 2.5 mg 03/27/19 10:00 04/04/19 11:21 Femara - PO 2.5 mg DAILY [facility] Administration Levothyroxine Sodium 112 mcg 03/30/19 07:00 04/05/19 06:32 Synthroid - PO 112 mcg DAILY@0700 [facility] Administration Multivitamins/Minerals/Vitamin C 1 tab 03/27/19 10:00 04/04/19 11:24 Tab-A-Vit - PO 1 tab DAILY [facility] Administration Polyethylene Glycol 17 gm 03/27/19 10:00 04/04/19 11:23 Miralax (For Daily Use) - PO Not Given DAILY [facility] Pregabalin 25 mg 04/03/19 22:45 04/04/19 21:22 Lyrica - PO 25 mg BID [facility] Administration ASSESSMENT/PLAN: 89 year-old female with a PMH significant for HTN, IDDM, CKD, left breast CA,CVA , GERD, hypothyroidism, and chronic leukocytosis. Admitted for lower extremity cellulitis and acute on chronic diastolic heart failure. Lower extremity cellulitis Chronic leukocytosis --erythema, edema improved --afebrile --continue Unasyn (day #8) --Vanc dosing as per ID; give last dose tomorrow prior to discharge --discharge on doxycycline --ID following Diastolic heart failure, acute on chronic --03/29 Echo: LV normal, EF 60-65%; RV normal; mild MR; mild TR; pHTN --lower extremity edema and congestive changes on CXR on admission --treated with IV Lasix, down 5.2kg --stopped standing Lasix today due to MAURICE; give Lasix PRN Acute on chronic kidney injury --Cr 2.4 on admission, 2.4 today, baseline 1.2 --seen and evaluated by renal today, proteinuria workup Hypertension --continue amlodipine at increased dose 10mg, hold losartan IDDM --Novolog sliding scale coverage Left breast cancer --continue letrozole GERD --continue pepcid Hypothyroidism --continue increased levothyroxine 112mcg daily FEN Fluids: PO intake adequate Electrolytes: replete as indicated Nutrition: diabetic, low sodium DVT prophylaxis: subq heparin Physical therapy Dispo: continues to require inpatient care. Full code. *Lower extremity cellulitis- improving - on Unasyn - ID following - afebrile, with leukocytosis - DVT ruled out - pain control *Diastolic heart failure, acute on chronic -August 2012 Echo: LV normal, diastolic dysfunction; RV not well-visualized; trace MR; mild TR -lower extremity edema and congestive changes on CXR - BNP 1853 -echo on 03/29/19- EF 60-65% -s/p IV Lasix, now switched to PO Lasix as per card -cardiology following *Acute on chronic kidney injury ( baseline 1.2) -Cr 2.4 on admission, remains elevated -continue to trend - Renal US reviewed : No acute pathology, large post void urine - post void urine < 50 cc -Lasix dose decreased to 40mg daily instead of bid -Renal Consult *HTN- BP stable - will cont on BB, Lasix and Norvasc -Holding Losartan due to MAURICE *Diabetes mellitus type 2 - FS monitoring - Insulin sliding scale - Diabetic diet * Hx of Left breast cancer -continue letrozole *GERD -continue Pepcid *Hypothyroidism -TSH 8.14 (03/27) -increased levothyroxine 112mcg daily *History of CVA with residual deficit * Diabetic neuropathy - will cont on pain meds * Anemia - chronic,likely due to CKD - Fecal occult negative - FE studies wnl *FEN Fluids: PO intake adequate Electrolytes: replete as indicated Nutrition: diabetic, low sodium DVT prophylaxis: subq heparin Physical therapy- Following rec Rehab Dispo: continues to require inpatient care. Full code. Visit type - Emergency Visit Emergency Visit: Yes ED Registration Date: 03/27/19 Care time: The patient presented to the Emergency Department on the above date and was hospitalized for further evaluation of their emergent condition. - New Patient This patient is new to me today: No - Critical Care Critical Care patient: No Krystyna Franklin, HOSPITAL CHIEF FINANCIAL OFFICER: This documentation has been prepared by the [employer], SCRIBE, under my direction and personally reviewed by me in its entirety. I confirm that the documentation accurately reflects all work, treatment, procedures, and medical decision making performed by me.
[2019-04-05 19:41] LABS: URINE CREATININE 78.8 mg/dL (30-150)
[2019-04-05] MEDS: ACETAMINOPHEN 325 MG TABLET (FP) PO PRN (21:29)
[2019-04-06] MEDS ORDERED: AMPICILLIN NA/SULBACTAM NA 3 GM VIAL ONE ×2 (02:08→09:55)
[2019-04-06] MEDS ORDERED: SODIUM CHLORIDE 100 ML IVPB ONE ×2 (02:08→09:55)
[2019-04-06] MEDS: AMPICILLIN NA/SULBACTAM NA 3 GM in SODIUM CHLORIDE 100 ML IVPB SCH ×2 (02:40→09:05)
[2019-04-06] MEDS: HEPARIN NA (PORCINE) 5,000 UNITS/ML 1ML VIAL SQ SCH ×2 (06:05→14:23)
[2019-04-06] MEDS: INSULIN SLIDING SCALE (NOVOLOG) 1 VIAL SQ SCH ×2 (06:20→11:05)
[2019-04-06] MEDS: LEVOTHYROXINE NA 112 MCG TABLET (FP) PO SCH (06:20)
[2019-04-06] MEDS ORDERED: FUROSEMIDE 40 MG TABLET (FP) PO ONE (09:11)
[2019-04-06] MEDS: INSULIN (LEVEMIR) 100 UNITS/ML UNITS SQ SCH (10:00)
[2019-04-06] MEDS: PREGABALIN 25 MG CAPSULE PO SCH (10:05)
[2019-04-06] MEDS: ASPIRIN 81 MG CHEWABLE TABLETS PO SCH (10:05)
[2019-04-06] MEDS: CHOLECALCIFEROL (VIT D3) 400 UNIT (10 MCG) TABLET PO SCH (10:05)
[2019-04-06] MEDS: POLYETHYLENE GLYCOL 3350 119 GM BTL PO SCH (10:05)
[2019-04-06] MEDS: CARVEDILOL 12.5 MG TABLET (FP) PO SCH (10:05)
[2019-04-06] MEDS: amLODIPine BESYLATE 5 MG TABLET (FP) PO SCH (10:05)
[2019-04-06] MEDS: LETROZOLE 2.5 MG TABLET (FP) PO SCH (10:05)
[2019-04-06] MEDS: MULTIVITAMINS (DAILY MVI) TABLET (FP) PO SCH (10:05)
[2019-04-06] MEDS: FAMOTIDINE 20 MG TABLET PO SCH (10:05)
[2019-04-06 10:50] LABS: CREATININE 2.5 mg/dl (0.55-1.3); POTASSIUM 3.7 mmol/L (3.5-5.1)
--- NOTE | 2019-04-06 12:50 | PN ---
Progress Note (short form) - Note Progress Note: s: no chest pain, palps, dizziness, dyspnea. stable edema. Current Medications Generic Name Dose Route Start Last Admin Trade Name Freq PRN Reason Stop Dose Admin Acetaminophen 650 mg 03/30/19 18:47 04/05/19 21:29 Tylenol - PO 650 mg Q6H PRN Administration PAIN LEVEL 6-10 Amlodipine Besylate 10 mg 03/31/19 13:05 04/06/19 10:05 Norvasc - PO 10 mg DAILY [facility] Administration Aspirin 81 mg 03/27/19 10:00 04/06/19 10:05 Asa - PO 81 mg DAILY [facility] Administration Carvedilol 25 mg 03/27/19 10:00 04/06/19 10:05 Coreg - PO 25 mg BID [facility] Administration Cholecalciferol 400 unit 03/27/19 10:00 04/06/19 10:05 Vitamin D3 - PO 400 unit DAILY [facility] Administration Famotidine 20 mg 03/27/19 10:00 04/06/19 10:05 Pepcid - PO 20 mg DAILY [facility] Administration Heparin Sodium (Porcine) 5,000 unit 03/27/19 06:00 04/06/19 06:05 Heparin - SQ 5,000 unit TID [facility] Administration Ampicillin Sodium/Sulbactam 100 mls @ 200 mls/hr 03/29/19 10:30 04/06/19 09: 05 Sodium 3 gm/ Sodium Chloride IVPB 200 mls/hr Q6H-IV [facility] Administration Insulin Aspart 1 vial 03/27/19 11:00 04/06/19 06:20 Novolog Vial Sliding Scale - SQ Not Given ACHS [facility] Protocol Insulin Detemir 25 units 03/27/19 11:13 04/06/19 10:00 Levemir Vial SQ 25 units DAILY [facility] Administration Letrozole 2.5 mg 03/27/19 10:00 04/06/19 10:05 Femara - PO 2.5 mg DAILY [facility] Administration Levothyroxine Sodium 112 mcg 03/30/19 07:00 04/06/19 06:20 Synthroid - PO 112 mcg DAILY@0700 [facility] Administration Multivitamins/Minerals/Vitamin C 1 tab 03/27/19 10:00 04/06/19 10:05 Tab-A-Vit - PO 1 tab DAILY [facility] Administration Polyethylene Glycol 17 gm 03/27/19 10:00 04/06/19 10:05 Miralax (For Daily Use) - PO 17 grams DAILY [facility] Administration Pregabalin 25 mg 04/03/19 22:45 04/06/19 10:05 Lyrica - PO 25 mg BID [facility] Administration Vital Signs Period Temp Pulse Resp BP Sys/Hernandez Pulse Ox Last 24 Hr 97.4 F-98.7 F 77-90 18-19 120-155/53-85 94-96 nad ncat no JVD nl S1, S2, RRR cta bl nl eff soft, nt, nd +bs 1+ edema aox3 not agitated no jaundice, diaphoresis CBC, BMP 04/05/19 07:22 04/06/19 10:12 Assessment/Plan EKG: sinus, first deg AVB, LAD, ILBBB, no ischemic changes echo 03/2019 nl LV function, mild MR, mild TR, PASP at least 49 mmHg CXR: + congestive changes edema, acute diastolic heart failure exacerbation - echo nl LV function - resume po lasix for maintenance lower ext cellulitis - manage per ID, primary HTN - cont norvasc - holding losartan in setting of MAURICE MAURICE - Cr 2s (baseline 1.2) - renal consulted
--- NOTE | 2019-04-06 13:50 | DS ---
Documentation entered by Precious Ritter SCRIBE, acting as scribe for Krystyna Franklin NP. Physical Exam: SUBJECTIVE: Patient seen and examined oob to chair. OBJECTIVE: Vital Signs Period Temp Pulse Resp BP Sys/Hernandez Pulse Ox Last 24 Hr 97.4 F-98.7 F 77-90 18-19 120-155/53-85 94-96 PHYSICAL EXAM GENERAL: The patient is awake, alert, and fully oriented, in no acute distress. LUNGS: Breath sounds equal, clear to auscultation bilaterally, no wheezes, no crackles, no accessory muscle use. HEART: Regular rate and rhythm, S1, S2 without murmur, rub or gallop. ABDOMEN: Soft, nontender, nondistended EXTREMITIES: Mild erythema. 2+ bilateral edema. Venous stasis changes. Dry flaky skin. NEUROLOGICAL: Cranial nerves II through XII grossly intact. Normal speech, gait not observed. LABS Laboratory Results - last 24 hr 04/05/19 04/05/19 04/05/19 07:22 07:22 11:37 WBC 17.4 H RBC 2.30 L Hgb 7.7 L Hct 23.4 L MCV 101.8 H MCH 33.4 MCHC 32.8 RDW 16.0 H Plt Count 271 MPV 7.2 L Absolute Neuts (auto) 12.0 Neutrophils % 69.1 Lymphocytes % 14.3 Monocytes % 7.3 Eosinophils % 8.7 H Basophils % 0.6 Sodium 138 Potassium 3.5 Chloride 106 Carbon Dioxide 21 Anion Gap 11 BUN 46.0 H Creatinine 2.4 H Est GFR (CKD-EPI)AfAm 20.07 Est GFR (CKD-EPI)NonAf 17.32 POC Glucometer 186 Random Glucose 116 H Calcium 8.0 L Magnesium 2.1 Total Bilirubin 0.2 AST 23 ALT 20 Alkaline Phosphatase 74 Total Protein 5.8 L Albumin 2.6 L Urine Color Urine Appearance Urine pH Urine Protein Urine Glucose (UA) Urine Ketones Urine Blood Urine Nitrite Urine Bilirubin Urine Urobilinogen Ur Leukocyte Esterase Urine RBC Urine WBC U Random Total Protein Urine Creatinine Protein/Creatinin Ratio 04/05/19 04/05/19 04/05/19 16:39 19:10 19:10 WBC RBC Hgb Hct MCV MCH MCHC RDW Plt Count MPV Absolute Neuts (auto) Neutrophils % Lymphocytes % Monocytes % Eosinophils % Basophils % Sodium Potassium Chloride Carbon Dioxide Anion Gap BUN Creatinine Est GFR (CKD-EPI)AfAm Est GFR (CKD-EPI)NonAf POC Glucometer 148 Random Glucose Calcium Magnesium Total Bilirubin AST ALT Alkaline Phosphatase Total Protein Albumin Urine Color Yellow Urine Appearance Clear Urine pH 6.5 Urine Protein 3+ H Urine Glucose (UA) Negative Urine Ketones Negative Urine Blood Trace-intact Urine Nitrite Negative Urine Bilirubin Negative Urine Urobilinogen 0.2 Ur Leukocyte Esterase Negative Urine RBC 2-5 Urine WBC 0-2 U Random Total Protein 812.1 H Urine Creatinine 78.8 Protein/Creatinin Ratio 10.3 04/05/19 04/06/19 21:22 06:10 WBC RBC Hgb Hct MCV MCH MCHC RDW Plt Count MPV Absolute Neuts (auto) Neutrophils % Lymphocytes % Monocytes % Eosinophils % Basophils % Sodium Potassium Chloride Carbon Dioxide Anion Gap BUN Creatinine Est GFR (CKD-EPI)AfAm Est GFR (CKD-EPI)NonAf POC Glucometer 270 136 Random Glucose Calcium Magnesium Total Bilirubin AST ALT Alkaline Phosphatase Total Protein Albumin Urine Color Urine Appearance Urine pH Urine Protein Urine Glucose (UA) Urine Ketones Urine Blood Urine Nitrite Urine Bilirubin Urine Urobilinogen Ur Leukocyte Esterase Urine RBC Urine WBC U Random Total Protein Urine Creatinine Protein/Creatinin Ratio HOSPITAL COURSE: Date of Admission:03/27/19 Date of Discharge: 04/06/19 Pre Hospital Course This is an 89 year-old female with a PMH significant for HTN, IDDM, CKD, left breast CA, GERD, recurrent UTIs, lower extremity edema, chronic pain and hypothyroidism, who was sent in by pmd for evaluation of worsening lower extremity edema,pain,weakness and difficulty with ambulation for 3 weeks. Pt denies cp, sob, palpitations, abdominal pain,reports mild nausea,chronic chills but no fever,vomiting,cough,dysuria, frequency, urgency, hematuria or hematochezia. Denies any fall. Pt states that she was seen by PMD Dr. Salinas few weeks ago for lower ext swelling / pain, at that time added Lyrica and Lasix. Pt lives alone,has [employer] for 4 hrs a day M-F and uses walker/ cane. ED Course (1)wbc 16.4, afebrile (2)CxR:New congestive changes (3) EKG: SR, LLB, no acute ST changes Subsequent Hospital Course 89 year-old female with a PMH significant for HTN, IDDM, CKD, left breast CA,CVA , GERD, hypothyroidism, and chronic leukocytosis. Admitted for lower extremity cellulitis and acute on chronic diastolic heart failure. Lower extremity cellulitis Chronic leukocytosis --erythema, edema L>R on admission --treated with Unasyn x 9 days; discharge on PO doxy for additional 7 days --WBC remained elevated throughout hospital stay Diastolic heart failure, acute on chronic --03/29 Echo: LV normal, EF 60-65%; RV normal; mild MR; mild TR; pHTN --lower extremity edema and congestive changes on CXR on admission --treated with IV Lasix, down 5.2kg Acute on chronic kidney injury --Cr 2.4 on admission, 2.4 today, baseline 1.2 --seen and evaluated by renal today, proteinuria workup; will need outpatient followup Hypertension --amlodipine increased to 10mg dailyt, losartan held due to MAURICE IDDM --Novolog sliding scale coverage Left breast cancer --continued letrozole GERD --continued pepcid Hypothyroidism --continued increased levothyroxine 112mcg daily Minutes to complete discharge: 35 Discharge Summary Problems reviewed: Yes Reason For Visit: BILATERAL EDEMA-LOWER LEGS. Current Active Problems Acute kidney injury superimposed on CKD (Acute) Bilateral leg edema (Acute) HTN (hypertension) (Acute) Lower extremity cellulitis (Acute) Condition: Improved - Instructions Diet, Activity, Other Instructions: Patient needs to be kept on doxycycline PO 100mg BID for 7 days. She also needs to have her BUN and Cr checked weekly for acute kidney injury. Patient has chronic lymphedema and needs to be seen Dr. Baker at the [facility]. she has a scheduled appointment for April 19 at 10:00am. Please make sure patient gets to this appointment. Patient also needs to follow up with the following providers within 2 weeks: 1. Dr. aRphael Ly - test clerk 2. Dr. Rodrigo De Guzman - urologist Their contact information is enclosed in this discharge packet. Referrals: Raphael Ly MD [Staff Physician] - 2 Weeks Slava Baker DO [Staff Physician] - 04/19/19 10:00 am Gab Wallace MD [Staff Physician] - 2 Weeks Disposition: LONG TERM FACILITY - Home Medications Comprehensive Discharge Medication List: Ambulatory Orders Multivitamins [Multivit ([facility] Formulary)] 1 tab PO DAILY 06/10/14 Aspirin [ASA -] 81 mg PO DAILY #0 06/14/14 Amlodipine Besylate 5 mg PO DAILY 06/23/18 Calcium Carbonate/Vitamin D3 [Calcium 500-Vit D3 400 Tablet] 1 each PO DAILY Carvedilol [Coreg -] 25 mg PO BID 06/23/18 Cholecalciferol (Vitamin D3) [Vitamin D -] 400 unit PO DAILY 06/23/18 Famotidine [Pepcid] 40 mg PO DAILY 06/24/18 Furosemide [Lasix -] 40 mg PO BID 06/24/18 Letrozole 2.5 mg PO DAILY 06/24/18 Losartan Potassium 100 mg PO DAILY 06/24/18 Potassium Chloride [Klor-Con M20] 20 meq PO DAILY 06/24/18 Tramadol HCl 50 mg PO TID PRN 06/24/18 Insulin Glargine,Hum.rec.anlog [Lantus Solostar PEN -] 25 units SQ DAILY Pregabalin [Lyrica] 25 mg PO BID 03/26/19 Doxycycline Hyclate 100 mg PO BID #14 tablet 04/06/19 This patient is new to me today: No Emergency Visit: Yes ED Registration Date: 03/27/19 Care time: The patient presented to the Emergency Department on the above date and was hospitalized for further evaluation of their emergent condition. Critical Care patient: No - Discharge Referral Referred to [facility] Krystyna Mtz, DOREEN: This documentation has been prepared by the Stone graves Maria, SCRIBE, under my direction and personally reviewed by me in its entirety. I confirm that the documentation accurately reflects all work, treatment, procedures, and medical decision making performed by me.
--- NOTE | 2019-04-06 14:14 | PN ---
Progress Note, Physician History of Present Illness: Pt seen and examined at bedside. She denies shortness of breath however she does complain of lower ext edema. - Current Medication List Current Medications: Active Medications Acetaminophen (Tylenol -) 650 mg PO Q6H PRN PRN Reason: PAIN LEVEL 6-10 Last Admin: 04/05/19 21:29 Dose: 650 mg Amlodipine Besylate (Norvasc -) 10 mg PO DAILY [facility] Last Admin: 04/06/19 10:05 Dose: 10 mg Aspirin (Asa -) 81 mg PO DAILY [facility] Last Admin: 04/06/19 10:05 Dose: 81 mg Carvedilol (Coreg -) 25 mg PO BID [facility] Last Admin: 04/06/19 10:05 Dose: 25 mg Cholecalciferol (Vitamin D3 -) 400 unit PO DAILY [facility] Last Admin: 04/06/19 10:05 Dose: 400 unit Famotidine (Pepcid -) 20 mg PO DAILY [facility] Last Admin: 04/06/19 10:05 Dose: 20 mg Heparin Sodium (Porcine) (Heparin -) 5,000 unit SQ TID [facility] Last Admin: 04/06/19 06:05 Dose: 5,000 unit Ampicillin Sodium/Sulbactam (Sodium 3 gm/ Sodium Chloride) 100 mls @ 200 mls/ hr IVPB Q6H-IV [facility] Last Admin: 04/06/19 09:05 Dose: 200 mls/hr Insulin Aspart (Novolog Vial Sliding Scale -) 1 vial SQ ACHS [facility]; Protocol Last Admin: 04/06/19 06:20 Dose: Not Given Insulin Detemir (Levemir Vial) 25 units SQ DAILY [facility] Last Admin: 04/06/19 10:00 Dose: 25 units Letrozole (Femara -) 2.5 mg PO DAILY [facility] Last Admin: 04/06/19 10:05 Dose: 2.5 mg Levothyroxine Sodium (Synthroid -) 112 mcg PO DAILY@0700 [facility] Last Admin: 04/06/19 06:20 Dose: 112 mcg Multivitamins/Minerals/Vitamin C (Tab-A-Vit -) 1 tab PO DAILY [facility] Last Admin: 04/06/19 10:05 Dose: 1 tab Polyethylene Glycol (Miralax (For Daily Use) -) 17 gm PO DAILY [facility] Last Admin: 04/06/19 10:05 Dose: 17 grams Pregabalin (Lyrica -) 25 mg PO BID [facility] Last Admin: 04/06/19 10:05 Dose: 25 mg - Objective Vital Signs: Vital Signs Temperature 97.5 F L 04/06/19 05:51 Pulse Rate 79 04/06/19 05:51 Respiratory Rate 19 04/06/19 08:43 Blood Pressure 146/53 L 04/06/19 05:51 O2 Sat by Pulse Oximetry (%) 95 04/06/19 08:43 Constitutional: Yes: Calm Eyes: Yes: Conjunctiva Clear HENT: Yes: Atraumatic Neck: Yes: Supple Cardiovascular: Yes: S1, S2 Respiratory: Yes: CTA Bilaterally Gastrointestinal: Yes: Soft Genitourinary: Yes: WNL Musculoskeletal: Yes: WNL Edema: Yes Edema: LLE: 1+, RLE: 1+ Neurological: Yes: Oriented Psychiatric: Yes: Oriented Labs: CBC, BMP 04/05/19 07:22 04/06/19 10:12 Problem List - Problems (1) Acute kidney injury superimposed on CKD Code(s): N17.9 - ACUTE KIDNEY FAILURE, UNSPECIFIED; N18.9 - CHRONIC KIDNEY DISEASE, UNSPECIFIED (2) Bilateral leg edema Code(s): R60.0 - LOCALIZED EDEMA (3) HTN (hypertension) Code(s): I10 - ESSENTIAL (PRIMARY) HYPERTENSION Assessment/Plan Current Medications Generic Name Dose Route Start Last Admin Trade Name Freq PRN Reason Stop Dose Admin Acetaminophen 650 mg 03/30/19 18:47 04/05/19 21:29 Tylenol - PO 650 mg Q6H PRN Administration PAIN LEVEL 6-10 Amlodipine Besylate 10 mg 03/31/19 13:05 04/06/19 10:05 Norvasc - PO 10 mg DAILY [facility] Administration Aspirin 81 mg 03/27/19 10:00 04/06/19 10:05 Asa - PO 81 mg DAILY [facility] Administration Carvedilol 25 mg 03/27/19 10:00 04/06/19 10:05 Coreg - PO 25 mg BID [facility] Administration Cholecalciferol 400 unit 03/27/19 10:00 04/06/19 10:05 Vitamin D3 - PO 400 unit DAILY [facility] Administration Famotidine 20 mg 03/27/19 10:00 04/06/19 10:05 Pepcid - PO 20 mg DAILY [facility] Administration Heparin Sodium (Porcine) 5,000 unit 03/27/19 06:00 04/06/19 06:05 Heparin - SQ 5,000 unit TID [facility] Administration Ampicillin Sodium/Sulbactam 100 mls @ 200 mls/hr 03/29/19 10:30 04/06/19 09: 05 Sodium 3 gm/ Sodium Chloride IVPB 200 mls/hr Q6H-IV [facility] Administration Insulin Aspart 1 vial 03/27/19 11:00 04/06/19 06:20 Novolog Vial Sliding Scale - SQ Not Given ACHS [facility] Protocol Insulin Detemir 25 units 03/27/19 11:13 04/06/19 10:00 Levemir Vial SQ 25 units DAILY [facility] Administration Letrozole 2.5 mg 03/27/19 10:00 04/06/19 10:05 Femara - PO 2.5 mg DAILY [facility] Administration Levothyroxine Sodium 112 mcg 03/30/19 07:00 04/06/19 06:20 Synthroid - PO 112 mcg DAILY@0700 [facility] Administration Multivitamins/Minerals/Vitamin C 1 tab 03/27/19 10:00 04/06/19 10:05 Tab-A-Vit - PO 1 tab DAILY [facility] Administration Polyethylene Glycol 17 gm 03/27/19 10:00 04/06/19 10:05 Miralax (For Daily Use) - PO 17 grams DAILY [facility] Administration Pregabalin 25 mg 04/03/19 22:45 04/06/19 10:05 Lyrica - PO 25 mg BID [facility] Administration Impression 1. proteinuria 2. hypothyroid 3. HTN 4. DM 5. UTI 6. breast cancer 7. MAURICE 8. CKD Plan - monitor renal function - spoke to Dr Salinas, french drawer has been rising and she did see Dr Niño. I put a call out to Dr Niño to discuss her care - avoid nsaids - lasix as needed - proteinuria can contribute to lower ext edema - follow spep - will need to consider kidney biopsy once more stable Dr Sequeira
[2019-04-06 14:33] VITALS: BP 159/60; PULSE 84; TEMP 97.7
[2019-04-06] MEDS ORDERED: VANCOMYCIN 1 GRAM (PRE-DOCKED) 1,000 MG/250 ML BAG IVPB ONE (16:00)
== END 2019-04-06 16:30 | DRG 291 ==
LOC: FER 23:08 → FM/S 03-27 01:55
PROVIDERS: ADMIT Internal Medicine; ATTEND Nurse Practitioner Acute Care
DX: I13.0 Hypertensive heart and chronic kidney disease with heart failure and stage 1 through stage 4 chronic kidney disease, or unspecified chronic kidney disease (principal); I50.33 Acute on chronic diastolic (congestive) heart failure; N17.9 Acute kidney failure, unspecified; L03.115 Cellulitis of right lower limb; L03.116 Cellulitis of left lower limb; E87.1 Hypo-osmolality and hyponatremia; I69.354 Hemiplegia and hemiparesis following cerebral infarction affecting left non-dominant side; N18.9 Chronic kidney disease, unspecified; Z85.3 Personal history of malignant neoplasm of breast; D72.829 Elevated white blood cell count, unspecified; E03.9 Hypothyroidism, unspecified; K21.9 Gastro-esophageal reflux disease without esophagitis; E11.42 Type 2 diabetes mellitus with diabetic polyneuropathy; D63.1 Anemia in chronic kidney disease; K59.00 Constipation, unspecified
CPT/HCPCS: 36415; 71045-TC-FY; 76775-TC; 76856-TC; 80048; 80053; 80076; 81003; 81015; 82272; 82570; 82962; 83540; 83550; 83735; 83880; 84100; 84155; 84156; 84165; 84439; 84443; 85025; 85027; 86850; 86900; 86901; 87040; 87086; 93005; 93306-TC; 93970-TC; 97116-GP; 97162-GP; 99285-25; J1644; J7030

== ENCOUNTER 2019-04-08 21:14 | Inpatient (IN) | payer OTHER, MEDICARE ==
--- NOTE | 2019-04-08 21:40 | PDOC ---
History of Present Illness - General Chief Complaint: Shortness of Breath Stated Complaint: DIFFICULTY BREATHING Time Seen by Provider: 04/08/19 21:39 History Source: Patient Exam Limitations: No Limitations - History of Present Illness Initial Comments: 04/08/19 21:39 HPI: 89yo F PMH HTN, HLD, DM, multiple CVAs, recently admitted at [place] for bilateral LE cellulitis (discharged 04/06/19) presenting with difficulty breathing for several days. Patient accompanied by son-in-law and granddaughters who report that while they were visiting her this afternoon she became tired-appearing, slurred her speech, and had bilateral facial droop "appearing tired." Facility staff took vitals and found her O2Sat to be 84%, she was placed on NC and the saturation improved to 94%, shortly thereafter her speech and face improved. She now reports feeling fatigued / weak throughout her body. Denies fevers, chills, nausea, vomiting, chest pain. Patient reports that she has had multiple stroked in the past and this does not feel like a stroke. She only complains of difficulty breathing and ongoing swelling in her bilateral LE which has worsened again since discharge from [facility]. Allergies: As per nursing notes PMH: As above PSH: Hernia Repair 2008 SHx: Lives with family. Denies smoking / ETOH / illicits Past History - Travel Traveled outside of the country in the last 30 days: No Close contact w/someone who was outside of country & ill: No - Past Medical History Allergies/Adverse Reactions: Allergies Allergy/AdvReac Type Severity Reaction Status Date / Time NSAIDS (Non-Steroidal Allergy Severe Difficulty Verified 04/08/19 22:55 Anti-Inflamma Breathing ibuprofen Allergy Intermediate Rash Verified 04/08/19 22:55 meloxicam [From Mobic] Allergy Intermediate Rash Verified 04/08/19 22:55 rosiglitazone maleate Allergy Verified 04/08/19 22:55 [From Avandia] albuterol AdvReac Intermediate Elevated Verified 04/08/19 22:55 Blood Pressure epinephrine AdvReac Intermediate Elevated Verified 04/08/19 22:55 Blood Pressure oxycodone HCl [From Percodan] AdvReac Intermediate Elevated Verified 04/08/19 22 :55 Blood Pressure oxycodone terephthalate AdvReac Intermediate Elevated Verified 04/08/19 22:55 [From Percodan] Blood Pressure flu shot AdvReac Severe GILLAIN Uncoded 04/08/19 22:55 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 [employer] Home Medications: Ambulatory Orders Multivitamins [Multivit ([facility] Formulary)] 1 tab PO DAILY 06/10/14 Aspirin [ASA -] 81 mg PO DAILY #0 06/14/14 Amlodipine Besylate 5 mg PO DAILY 06/23/18 Calcium Carbonate/Vitamin D3 [Calcium 500-Vit D3 400 Tablet] 1 each PO DAILY Carvedilol [Coreg -] 25 mg PO BID 06/23/18 Cholecalciferol (Vitamin D3) [Vitamin D -] 400 unit PO DAILY 06/23/18 Famotidine [Pepcid] 40 mg PO DAILY 06/24/18 Letrozole 2.5 mg PO DAILY 06/24/18 Losartan Potassium 100 mg PO DAILY 06/24/18 Potassium Chloride [Klor-Con M20] 20 meq PO DAILY 06/24/18 Tramadol HCl 50 mg PO TID PRN 06/24/18 Insulin Glargine,Hum.rec.anlog [Lantus Solostar PEN -] 25 units SQ DAILY Pregabalin [Lyrica] 25 mg PO BID 03/26/19 Doxycycline Hyclate 100 mg PO BID #14 tablet 04/06/19 Furosemide [Lasix -] 40 mg PO DAILY #30 tablet 04/06/19 Anemia: Yes (MILD-HIGH WBC X 20 YRS) Asthma: Yes (YRS AGO-STABLE NO MEDS) Cancer: Yes (LEFT BREAST-DX 07/2013) Cardiac Disorders: No 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) COPD: No CHF: No Dementia: No Diabetes: Yes (DX 1962) GI Disorders: Yes (ACID REFLUX) Disorders: Yes (FREQUENT UTI'S-LAST 2012-HOSPITALIZED) HTN: Yes (HX OF 40 YRS) Hypercholesterolemia: No Liver Disease: No Seizures: No Thyroid Disease: Yes (HYPOTHYROIDISM-DX 1949') - Surgical History Abdominal Surgery: Yes (UNBILICAL HERNIA REPAIR-2008) Appendectomy: No Cardiac Surgery: No Cholecystectomy: No Lung Surgery: No Neurologic Surgery: No Orthopedic Surgery: No - Psycho Social/Smoking Cessation Hx Smoking Status: No Smoking History: Never smoked Have you smoked in the past 12 months: No Number of Cigarettes Smoked Daily: 0 Hx Alcohol Use: No Drug/Substance Use Hx: No Substance Use Type: None Hx Substance Use Treatment: No Review of Systems - Review of Systems Able to Perform ROS?: Yes Is the patient limited Ethiopian proficient: Yes Constitutional: No: Chills, Fever, Weakness HEENTM: No: Recent change in vision, Nose Congestion, Throat Pain Respiratory: Yes: Cough, Shortness of Breath. No: Wheezing, Productive cough Cardiac (ROS): No: Chest Pain, Edema, Irregular Heart Rate, Chest Tightness ABD/GI: No: Constipated, Diarrhea, Nausea, Poor Appetite, Poor Fluid Intake, Vomiting : No: Burning, Dysuria, Discharge, Hematuria, Incontinence, Pain Musculoskeletal: No: Muscle Pain, Muscle Weakness, Neck Pain Integumentary: Yes: See HPI, Dryness, Erythema, Pruritus. No: Bruising, Rash Neurological: No: Headache, Numbness, Tingling, Weakness Psychiatric: No: Stressors, Change in Appetite Endocrine: No: Increased Thirst, Increased Urine, Change in Weight Hematologic/Lymphatic: No: Anemia, Blood Clots, Easy Bleeding All Other Systems: Reviewed and Negative *Physical Exam - Vital Signs 04/08/19 22:58 - Physical Exam 04/08/19 23:03 Hypertensive, tachypnic, afebrile Elderly woman, mild distress, NRB 8L, alert and oriented x3, cooperative MMM, EOMI, right pupil pinpoint and fixed, left reactive to light, NCAT RRR, nl s1s2, no murmur appreciated CTABL, normal WOB, no wheezes / rales / rhonchi Soft, non-tender, non-distended WWP, bilateral legs with edema to the knees, skin scaling, not overly warm / erythematous, TTP sizing sprayer grossly intact except for aforementioned pupil, normal sensation throughout , 4+ strength symmetrically ED Treatment Course - LABORATORY CBC & Chemistry Diagram: 04/08/19 22:30 04/08/19 22:30 Medical Decision Making - Medical Decision Making 04/08/19 23:03 89yo F PMH HTN, HLD, DM, multiple CVAs, recently admitted at [facility] for bilateral LE cellulitis (discharged 04/06/19) presenting with difficulty breathing for several days. DDX: Pulmonary HTN (prior ECHO), PNA, DVT/PE. Dispo : Likely admission. - CBC, CMP, Lact, BCx, UA, UCx, Trop, BNP, TSH - CXR, EKG, Duplex US 04/08/19 23:24 - Leukocytosis 22.3 - Vancomycin / Zosyn ordered - TSH 11.90, BNP Elevated (2600 up from 1850 prior admission), Hgb 7.7 - Cr elevated 2.8, up from ? new baseline at [facility] 04/08/19 23:33 - CXR with worsening pulmonary vascular congestive changes on my read - 40mg IV Lasix 04/09/19 00:02 - Endorsed to Dr. Saucedo - F/U - CTPE? - Admit Discharge - Discharge Information Problems reviewed: Yes Clinical Impression/Diagnosis: Acute kidney injury superimposed on CKD, Bilateral leg edema, Pulmonary vascular congestion, Shortness of breath, Lethargy Anemia Qualifiers: Anemia type: unspecified type Qualified Code(s): D64.9 - Anemia, unspecified Hypothyroid Qualifiers: Hypothyroidism type: unspecified Qualified Code(s): E03.9 - Hypothyroidism, unspecified Condition: Guarded - Admission Yes - Follow up/Referral Referrals: Shaq Salinas MD [Primary Care Provider] - - Patient Discharge Instructions - Post Discharge Activity
--- NOTE | 2019-04-08 22:34 | PDOC ---
Documentation entered by Riddhi Pina SCRIBE, acting as scribe for Meseret Burris DO. Meseret Burris DO: This documentation has been prepared by the Yovani graves Joy, SCRIBE, under my direction and personally reviewed by me in its entirety. I confirm that the documentation accurately reflects all work, treatment, procedures, and medical decision making performed by me. Attending Attestation - Resident Resident Name: WilfredShreyas - ED Attending Attestation I have performed the following: I have examined & evaluated the patient, The case was reviewed & discussed with the resident, I agree w/resident's findings & plan, Exceptions are as noted - HPI HPI: 04/08/19 22:22 The patient is a 89 year old female with significant past medical history of HTN , HLD, DM, CKD, left breast CA, GERD, recurrent UTIs, lower extremity edema, chronic pain and hypothyroidism who presents to the ED with difficulty breathing for a couple of days. As per patients family member, the patient was breathing heavy, wheezing, and having retractions. As per patient, she was recently hospitalized for 15 days at [facility] for bilateral cellulitis in both legs (discharged on 04/06/19) and states that she had similar symptoms where her face turned alvarado and she was wheezing. Allergies: NSAIDS - Physicial Exam PE: 04/08/19 22:30 Gen: aaox3, tachypnic, conversational dyspnea heart: +s1s2 reg lungs: diminished bs b/l bases, conversational dyspnea, tachypnic abd: soft, suprapubic ttp, no rebound or guarding ext: 1+ pitting edema b/l LE, mild redness to LE, pulses intact, ttp - Medical Decision Making 04/08/19 22:33 a/p: 89yo female with sob x 3 episodes -happened at [facility] 3 days ago while there -states sob x hours today no cp -no cough -pt with dyspnea, tachypnic during exam -pt with new o2 requirement -LE swelling has improved but pt with calf ttp -will send labs, cultures, duplex us -cxr -ekg 04/08/19 23:48 pt with wbc 22 cxr shows pulm edema will give lasix and broad spectrum abx LE swelling 04/09/19 00:45 no dvt 04/09/19 00:46 pt will need admission pulm edema, LE cellulitis microblog sent to [facility] for admission 04/09/19 02:06 pt feels much better after iv lasix no longer tachypnic no longer hypoxic pending call back from [facility] Heart Score/ECG Review - ECG Intrepretation Comment:: 04/09/19 01:10 sinus at 80, 1st degree av block, l axis, incomplete rbbb, no acute st/t wave findings
[2019-04-08 22:38] LABS: EOS % 5.4 % (0-4.5); HEMATOCRIT 24.3 % (32.4-45.2); HEMOGLOBIN 7.7 GM/dL (10.7-15.3); LYMPH % 7.2 % (8-40); MCH 32.6 pg (25.7-33.7); MCHC 31.6 g/dl (32.0-36.0); MEAN CELL VOLUME 103.3 fl (80-96); MEAN PLT VOLUME 7.8 fl (7.5-11.1); MONO % 10.7 % (3.8-10.2); NEUT % 74.7 % (42.8-82.8); PLATELET COUNT 284 K/MM3 (134-434); RBC 2.35 M/mm3 (3.60-5.2); RDW 17.6 % (11.6-15.6); WHITE BLOOD COUNT 22.3 K/mm3 (4.0-10.0)
[2019-04-08 22:54] LABS: VENOUS PC02 41.6 mmHg (38-52); VENOUS PH 7.33 (7.31-7.41); VENOUS PO2 < 49 mmHg (28-48)
[2019-04-08 23:03] LABS: INR 1.01 (0.83-1.09); PROTHROMBIN TIME (PATIENT) 11.9 SEC (9.7-13.0)
[2019-04-08 23:16] LABS: ALBUMIN 2.8 g/dl (3.4-5.0); BILIRUBIN,TOTAL 0.4 mg/dL (0.2-1); BLOOD UREA NITROGEN 50.5 mg/dL (7-18); CALCIUM 8.8 mg/dL (8.5-10.1); CREATININE 2.8 mg/dL (0.55-1.3); POTASSIUM 4.3 mmol/L (3.5-5.1); TOT PROT 6.6 g/dl (6.4-8.2)
[2019-04-08 23:20] LABS: ANISOCYTOSIS 1+; PLATELET ESTIMATE ADEQUATE
[2019-04-08] MEDS ORDERED: PIPERACILLIN/TAZOB 3.375 GM 3.375 GM in DEXTROSE 5%-WATER - 50 ML IVPB ONE (23:23)
[2019-04-08] MEDS ORDERED: VANCOMYCIN 1 GM in D5W (PRE-DOCKED) 1,000 MG/250 ML IVPB ONE (23:23)
[2019-04-08 23:24] LABS: MAGNESIUM 2.3 mg/dL (1.8-2.4); N-TERMINAL BNP 2600.8 pg/ml (5-450)
[2019-04-08] MEDS ORDERED: FUROSEMIDE 40 MG/4 ML INJECTABLE VIAL IVPUSH ONE (23:48)
[2019-04-09] MEDS ORDERED: VANCOMYCIN 1 GRAM (PRE-DOCKED) 1,000 MG/250 ML BAG IVPB ONE (00:28)
[2019-04-09] MEDS ORDERED: FUROSEMIDE 40 MG/4 ML INJECTABLE VIAL ONE (00:28)
[2019-04-09] MEDS ORDERED: PIPERACILLIN/TAZOB 3.375 GM 3.375 GM/50 ML BAG IVPB ONE (00:29)
[2019-04-09 02:12] LABS: EPI CELLS 0.3 /HPF (0-5/HPF); HYALINE CASTS 0 /lpf (0-8); PH,URINE 6.5 (5.0-8.0); URINE APPEARANCE CLEAR; URINE BACTERIA 0.7 /hpf (NEGATIVE); URINE BILIRUBIN NEGATIVE (NEGATIVE); URINE COLOR YELLOW; URINE GLUCOSE (UA) 1+ (NEGATIVE); URINE KETONE NEGATIVE (NEGATIVE); URINE LEUK ESTERASE NEGATIVE (NEGATIVE); URINE NITRITE NEGATIVE (NEGATIVE); URINE PROTEIN 3+ (NEGATIVE); URINE RBC 1 /hpf (0-4); URINE UROBILINOGEN 0.2 mg/dL (0.2-1.0); URINE WBC 0 /hpf (0-5)
--- NOTE | 2019-04-09 02:16 | PN ---
Teaching Attending Note Name of Resident: Krissy Beal ATTENDING PHYSICIAN STATEMENT I saw and evaluated the patient. I reviewed the resident's note and discussed the case with the resident. I agree with the resident's findings and plan as documented. SUBJECTIVE: Patient is an 89 year old woman with a PMH of HTN, HLD, Left breast cancer, Hypothyroidism, GERD, NIDDM and Multiple CVAs recently admitted at [facility] for bilateral LE cellulitis (discharged 04/06/19) presenting with difficulty breathing for several days. Patient accompanied by son-in-law and granddaughters who report that while they were visiting her this afternoon she became tired-appearing, slurred her speech, and had bilateral facial droop "appearing tired." Facility staff took vitals and found her O2 saturation to be 84%. She was placed on NC and the saturation improved to 94%, shortly thereafter her speech and face improved. She now reports feeling fatigued/weak throughout her body. Denies fevers, chills, nausea, vomiting, chest pain. Patient reports that she has had multiple strokes in the past and this does not feel like a stroke. She only complains of difficulty breathing and ongoing swelling in her bilateral LE which has worsened again since discharge from [facility]. Denies tobacco, alcohol or illicit drug use. OBJECTIVE: Alert Vital Signs Period Temp Pulse Resp BP Sys/Hernandez Pulse Ox Last 24 Hr 97.7 F 83 24 161/60 100 HEENT: No Jaundice, eye redness or discharge, PERRLA, EOMI. Normocephalic, atraumatic. External ears are normal and hearing is grossly intact. No nasal discharge. Neck: Supple, nontender. No palpable adenopathy or thyromegaly. No JVD Chest: Good effort. Clear to auscultation and percussion. Heart: Regular. No S3, rub or murmur Abdomen: Not distended, soft, nontender and no HSM. No rebound or guarding. Normal bowel sounds. Ext: Peripheral pulses intact. Leg edema with mild erythema. Skin: Warm and dry. No petechiae, rash or ecchymosis. Neuro: Alert. Oriented x3. CN 2-12 grossly intact. Sensation grossly intact in all four extremities and DTR are symmetric. Psych: Appropriate mood and affect. Good insight. Home Medications Medication Instructions Recorded Multivitamins [Multivit ([facility] 1 tab PO DAILY 06/10/14 Formulary)] Aspirin [ASA -] 81 mg PO DAILY #0 06/14/14 Amlodipine Besylate 5 mg PO DAILY 06/23/18 Calcium Carbonate/Vitamin D3 1 each PO DAILY 06/23/18 [Calcium 500-Vit D3 400 Tablet] Carvedilol [Coreg -] 25 mg PO BID 06/23/18 Cholecalciferol (Vitamin D3) 400 unit PO DAILY 06/23/18 [Vitamin D -] Famotidine [Pepcid] 40 mg PO DAILY 06/24/18 Letrozole 2.5 mg PO DAILY 06/24/18 Losartan Potassium 100 mg PO DAILY 06/24/18 Potassium Chloride [Klor-Con M20] 20 meq PO DAILY 06/24/18 Tramadol HCl 50 mg PO TID PRN 06/24/18 Insulin Glargine,Hum.rec.anlog 25 units SQ DAILY 03/26/19 [Lantus Solostar PEN -] Pregabalin [Lyrica] 25 mg PO BID 03/26/19 Doxycycline Hyclate 100 mg PO BID #14 tablet 04/06/19 Furosemide [Lasix -] 40 mg PO DAILY #30 tablet 04/06/19 Abnormal Lab Results 04/08/19 04/08/19 04/08/19 22:30 22:30 22:30 WBC 22.3 H RBC 2.35 L Hgb 7.7 L Hct 24.3 L MCV 103.3 H MCHC 31.6 L RDW 17.6 H Absolute Neuts (auto) 16.6 H Lymphocytes % 7.2 L D Monocytes % 10.7 H Eosinophils % 5.4 H Eosinophils % (Manual) 8.0 H Myelocytes % (Man) 5 H D Metamyelocytes 3 H D POC VBG pO2 VBG HCO3 VBG Base Excess Chloride 110 H BUN 50.5 H Creatinine 2.8 H Random Glucose 256 H Alkaline Phosphatase 119 H B-Natriuretic Peptide 2600.8 H Albumin 2.8 L TSH 11.90 H Urine Protein Urine Glucose (UA) 04/08/19 04/09/19 22:30 01:55 WBC RBC Hgb Hct MCV MCHC RDW Absolute Neuts (auto) Lymphocytes % Monocytes % Eosinophils % Eosinophils % (Manual) Myelocytes % (Man) Metamyelocytes POC VBG pO2 < 49 H VBG HCO3 21.5 L VBG Base Excess -3.5 L Chloride BUN Creatinine Random Glucose Alkaline Phosphatase B-Natriuretic Peptide Albumin TSH Urine Protein 3+ H Urine Glucose (UA) 1+ H ASSESSMENT AND PLAN: 1. Acute diastolic CHF/?Aspiration pneumonia - Acute diastolic CHF likely precipitated by fluid retention associated with progressing CKD and/or aspiration penumonia. Low albumin and amlodipine therapy likely contributing factors. CXR shows cardiomegaly, elevated right hemidiaphragm and congestive changes. ECHO from 03/29/19 showed normal LV and RV systolic function and LVEF was 60 to 65%. Will benefit from escalating doses of IV lasix to determine efficacious dose. A rise in BUN/Cr is an expected trade-off with aggressive diuresis to improve her quality of life. It is possible that PO lasix may not do the job of adequate diuresis as an outpatient. Alternatively consider placing a port to allow outpatient IV lasix therapy at an infusion center. If IV lasix fails to control fluid retention, then patient should be prepared for hemodialysis - specifically to control volume overload - even if it means dialyzing once or twice a week. EKG shows NSR, LAD, IRBBB and anterolateral infarct of undetermined age. No DVT on leg doppler. Aspiration/atypical pneumonia - patient says her exertional dyspnea symptoms get worse after eating. Will get chest CT, treat with IV protonix, Zosyn, Azithromycin and consult Pulmonary and ID. Synthroid dose was recently increased to 112 mcg to address elevated TSH. Do speech and swallow evaluation and send sputum for culture. Will continue comprehensive care for all of patient s comorbid conditions. 2. Hypoalbuminemia - Possibly due to combined effects of proteinuria, malnutrition and inflammation associated with comorbid chronic conditions. Will ensure adequate dietary protein intake and also consult field irrigation worker. 3. Uncontrolled DM For now, we will hold the home diabetes drugs and implement sliding scale insulin regimen. Provide comprehensive diabetes care with patient teaching and counseling about the importance of adherence to prescribed diabetes regimen, euglycemia, eye care and foot care. 4. CKD - Likely has diabetic nephropathy. Will consult nephrology and avoid nephrotoxic agents such as NSAIDS, aminoglycosides, contrast dyes and certain Alternative medicine products. 5. Anemia - Likely partly due to CKD. Do basic anemia work up including B12/ folate levels, serial stool guaiacs, reticulocyte count and iron studies. Would benefit from Procrit therapy once iron replete. Should get IV Venofer before discharge. 6. Obesity Counseled on the risks associated with obesity. Will provide patient all the necessary assistance, counseling and positive reinforcement to facilitate weight loss. Consult field irrigation worker. 7. Hypertension - Hold amlodipine in view of side effect of leg edema. Restart suitable outpatient antihypertensive drugs when clinically appropriate - after aggressive diuresis with IV lasix. Revise regimen to ensure [id number] excellent BP control and counseling services director patient on the injurious effects of uncontrolled hypertension. Nonpharmacologic measures to control hypertension like weight loss, salt restriction and exercise discussed. Importance of adherence to treatment regimen and attainment of normotension emphasized. 8. DVT prophylaxis - Heparin 5000u sq tid. 9. Advance directives - Full code
--- NOTE | 2019-04-09 03:39 | HP ---
CHIEF COMPLAINT: shortness of breath PCP: Dr. Salinas HISTORY OF PRESENT ILLNESS: 89 yo F PMH of HTN, HLD, Left breast cancer, Hypothyroidism, GERD, NIDDM and Multiple CVAs, recently admitted at [place] for bilateral LE cellulitis ( discharged 04/06/19) presenting with shortness of breath that began yesterday evening. pt states that after she had dinner she became very short of breath and her grand daughter told her to come to the hospital. she states that the last time she had a breathing problem she was in the hospital and it was after she finished eating. she states it was short and improved with nasal oxygen. she states she takes lasix 80 at home and is compliant with her medication. ER course was notable for: (1)Lasix 40 IVP (2)BNP >2000 (3)CXR Recent Travel: denies PAST MEDICAL HISTORY: see HPI PAST SURGICAL HISTORY: Left breast lumpectomy (2015) Abdominal Hernia sx Social History: Smoking:denies Alcohol:denies Drugs: denies Allergies NSAIDS (Non-Steroidal Anti-Inflamma Allergy (Severe, Verified 04/08/19 22:55) Difficulty Breathing ibuprofen Allergy (Intermediate, Verified 04/08/19 22:55) Rash meloxicam [From Mobic] Allergy (Intermediate, Verified 04/08/19 22:55) Rash all to all n-saids ? except Asprin rosiglitazone maleate [From Avandia] Allergy (Verified 04/08/19 22:55) albuterol Adverse Reaction (Intermediate, Verified 04/08/19 22:55) Elevated Blood Pressure ELEVATED SUGAR/ELEVATED TEMP epinephrine Adverse Reaction (Intermediate, Verified 04/08/19 22:55) Elevated Blood Pressure ELEVATED SUGAR/TEMP oxycodone HCl [From Percodan] Adverse Reaction (Intermediate, Verified 04/08/19 22:55) Elevated Blood Pressure ELEVATED SUGAR/ELEVATED TEMP oxycodone terephthalate [From Percodan] Adverse Reaction (Intermediate, Verified 04/08/19 22:55) Elevated Blood Pressure ELEVATED TEMP/SUGAR flu shot Adverse Reaction (Severe, Uncoded 04/08/19 22:55) [employer] HOME MEDICATIONS: Home Medications Medication Instructions Recorded Multivitamins [Multivit ([facility] 1 tab PO DAILY 06/10/14 Formulary)] Aspirin [ASA -] 81 mg PO DAILY #0 06/14/14 Amlodipine Besylate 5 mg PO DAILY 06/23/18 Calcium Carbonate/Vitamin D3 1 each PO DAILY 06/23/18 [Calcium 500-Vit D3 400 Tablet] Carvedilol [Coreg -] 25 mg PO BID 06/23/18 Cholecalciferol (Vitamin D3) 400 unit PO DAILY 06/23/18 [Vitamin D -] Famotidine [Pepcid] 40 mg PO DAILY 06/24/18 Letrozole 2.5 mg PO DAILY 06/24/18 Losartan Potassium 100 mg PO DAILY 06/24/18 Potassium Chloride [Klor-Con M20] 20 meq PO DAILY 06/24/18 Tramadol HCl 50 mg PO TID PRN 06/24/18 Insulin Glargine,Hum.rec.anlog 25 units SQ DAILY 03/26/19 [Lantus Solostar PEN -] Pregabalin [Lyrica] 25 mg PO BID 03/26/19 Doxycycline Hyclate 100 mg PO BID #14 tablet 04/06/19 Furosemide [Lasix -] 40 mg PO DAILY #30 tablet 04/06/19 Acetaminophen [Tylenol] 325 mg PO Q6H 04/09/19 REVIEW OF SYSTEMS CONSTITUTIONAL: Absent: fever, chills, diaphoresis, generalized weakness, malaise, loss of appetite, weight change HEENT: Absent: rhinorrhea, nasal congestion, throat pain, throat swelling, difficulty swallowing, mouth swelling, ear pain, eye pain, visual changes CARDIOVASCULAR: Present: peripheral edema Absent: chest pain, syncope, palpitations, irregular heart rate, lightheadedness RESPIRATORY: Present: shortness of breath, wheezing Absent: cough, dyspnea with exertion, orthopnea, stridor, hemoptysis GASTROINTESTINAL: Absent: abdominal pain, abdominal distension, nausea, vomiting, diarrhea, constipation, melena, hematochezia GENITOURINARY: Present: frequency Absent: dysuria, frequency, urgency, hesitancy, hematuria, flank pain, genital pain MUSCULOSKELETAL: Absent: myalgia, arthralgia, joint swelling, back pain, neck pain SKIN: Absent: rash, itching, pallor HEMATOLOGIC/IMMUNOLOGIC: Absent: easy bleeding, easy bruising, lymphadenopathy, frequent infections ENDOCRINE: Absent: unexplained weight gain, unexplained weight loss, heat intolerance, cold intolerance NEUROLOGIC: Absent: headache, focal weakness or paresthesias, dizziness, unsteady gait, seizure, mental status changes, bladder or bowel incontinence PSYCHIATRIC: Absent: anxiety, depression, suicidal or homicidal ideation, hallucinations. PHYSICAL EXAMINATION Vital Signs - 24 hr 04/08/19 04/09/19 22:00 03:15 Temperature 97.7 F Pulse Rate 83 Pulse Rate [ 79 Left Radial] Respiratory 24 H 25 H Rate Blood Pressure 161/60 Blood Pressure 152/55 L [Right Arm] O2 Sat by Pulse 100 96 Oximetry (%) GENERAL: Awake, alert, and fully oriented, in no acute distress. pt has conversational dyspnea . on 4L NC HEAD: Normal with no signs of trauma. EYES: Pupils equal, round and reactive to light, L pupil larger than R , extraocular movements intact, EARS, NOSE, THROAT: Ears normal, nares patent, oropharynx clear without exudates. Moist mucous membranes. NECK: Normal range of motion, supple without lymphadenopathy, JVD, or masses. LUNGS: Breath sounds equal, b/l crackles throughout. No accessory muscle use. HEART: Regular rate and rhythm, normal S1 and S2 without murmur, rub or gallop. ABDOMEN: Soft, tender to RUQ, distended, normoactive bowel sounds MUSCULOSKELETAL:No bony deformities or tenderness. No CVA tenderness. UPPER EXTREMITIES: 2+ pulses, warm, well-perfused. many ecchymosis b/l LOWER EXTREMITIES: 2+ pulses, warm, well-perfused. 2+ peripheral edema. erythema b/l NEUROLOGICAL: Cranial nerves II-XII intact. Normal speech. PSYCHIATRIC: Cooperative. Good eye contact. Appropriate mood and affect. Laboratory Last Values WBC 22.3 K/mm3 (4.0-10.0) H 04/08/19 22:30 RBC 2.35 M/mm3 (3.60-5.2) L 04/08/19 22:30 Hgb 7.7 GM/dL (10.7-15.3) L 04/08/19 22:30 Hct 24.3 % (32.4-45.2) L 04/08/19 22:30 MCV 103.3 fl (80-96) H 04/08/19 22:30 MCH 32.6 pg (25.7-33.7) 04/08/19 22:30 MCHC 31.6 g/dl (32.0-36.0) L 04/08/19 22:30 RDW 17.6 % (11.6-15.6) H 04/08/19 22:30 Plt Count 284 K/MM3 (134-434) 04/08/19 22:30 MPV 7.8 fl (7.5-11.1) 04/08/19 22:30 Absolute Neuts (auto) 16.6 K/mm3 (1.5-8.0) H 04/08/19 22:30 Neutrophils % 74.7 % (42.8-82.8) 04/08/19 22:30 Neutrophils % (Manual) 59.0 % (42.8-82.8) 04/08/19 22:30 Band Neutrophils % 7.0 % 04/08/19 22:30 Lymphocytes % 7.2 % (8-40) L D 04/08/19 22:30 Lymphocytes % (Manual) 12.0 % (8-40) D 04/08/19 22:30 Monocytes % 10.7 % (3.8-10.2) H 04/08/19 22:30 Monocytes % (Manual) 4 % (3.8-10.2) 04/08/19 22:30 Eosinophils % 5.4 % (0-4.5) H 04/08/19 22:30 Eosinophils % (Manual) 8.0 % (0-4.5) H 04/08/19 22:30 Basophils % 2.0 % (0-2.0) 04/08/19 22:30 Basophils % (Manual) 1.0 % (0-2.0) 04/08/19 22:30 Myelocytes % (Man) 5 % (0-2) H D 04/08/19 22:30 Nucleated RBC % 0 % (0-0) 04/08/19 22:30 Metamyelocytes 3 % (0-2) H D 04/08/19 22:30 Platelet Estimate Adequate 04/08/19 22:30 Anisocytosis 1+ 04/08/19:30 PT with INR 11.90 SEC (9.7-13.0) 04/08/19 22:30 INR 1.01 (0.83-1.09) 04/08/19 22:30 PTT (Actin FS) 32.4 SECONDS (25.2-36.5) 04/08/19 22:30 VBG pH 7.33 (7.31-7.41) 04/08/19 22:30 POC VBG pCO2 41.6 mmHg (38-52) 04/08/19 22:30 POC VBG pO2 < 49 mmHg (28-48) H 04/08/19 22:30 VBG HCO3 21.5 mmol/L (23-29) L 04/08/19 22:30 VBG O2 Sat (Julita) 70.7 % (70-80) 04/08/19 22:30 VBG Base Excess -3.5 meq/l (-2-2) L 04/08/19 22:30 Sodium 140 mmol/L (136-145) 04/08/19 22:30 Potassium 4.3 mmol/L (3.5-5.1) 04/08/19 22:30 Chloride 110 mmol/L (98-107) H 04/08/19 22:30 Carbon Dioxide 22 mmol/L (21-32) 04/08/19 22:30 Anion Gap 8 MMOL/L (8-16) 04/08/19 22:30 BUN 50.5 mg/dL (7-18) H 04/08/19 22:30 Creatinine 2.8 mg/dL (0.55-1.3) H 04/08/19 22:30 Est GFR (CKD-EPI)AfAm 16.66 04/08/19 22:30 Est GFR (CKD-EPI)NonAf 14.37 04/08/19 22:30 Random Glucose 256 mg/dL (74-106) H 04/08/19 22:30 Lactic Acid 0.7 mmol/L (0.4-2.0) 04/08/19 22:30 Calcium 8.8 mg/dL (8.5-10.1) 04/08/19 22:30 Magnesium 2.3 mg/dL (1.8-2.4) 04/08/19 22:30 Total Bilirubin 0.4 mg/dL (0.2-1) 04/08/19 22:30 AST 22 U/L (15-37) 04/08/19 22:30 ALT 21 U/L (13-61) 04/08/19 22:30 Alkaline Phosphatase 119 U/L (45-117) H 04/08/19 22:30 Creatine Kinase 65 U/L (26-192) 04/08/19 22:30 Troponin I 0.03 ng/ml (0.00-0.05) 04/08/19 22:30 B-Natriuretic Peptide 2600.8 pg/ml (5-450) H 04/08/19 22:30 Total Protein 6.6 g/dl (6.4-8.2) 04/08/19 22:30 Albumin 2.8 g/dl (3.4-5.0) L 04/08/19 22:30 TSH 11.90 uIU/ml (0.358-3.74) H 04/08/19 22:30 Urine Color Yellow 04/09/19 01:55 Urine Appearance Clear 04/09/19 01:55 Urine pH 6.5 (5.0-8.0) 04/09/19 01:55 Ur Specific [place] 1.014 (1.010-1.035) 04/09/19 01:55 Urine Protein 3+ (NEGATIVE) H 04/09/19 01:55 Urine Glucose (UA) 1+ (NEGATIVE) H 04/09/19 01:55 Urine Ketones Negative (NEGATIVE) 04/09/19 01:55 Urine Blood Negative (NEGATIVE) 04/09/19 01:55 Urine Nitrite Negative (NEGATIVE) 04/09/19 01:55 Urine Bilirubin Negative (NEGATIVE) 04/09/19 01:55 Urine Urobilinogen 0.2 mg/dL (0.2-1.0) 04/09/19 01:55 Ur Leukocyte Esterase Negative (NEGATIVE) 04/09/19 01:55 Urine WBC (Auto) 0 /hpf (0-5) 04/09/19 01:55 Urine RBC (Auto) 1 /hpf (0-4) 04/09/19 01:55 Urine Casts (Auto) 0 /lpf (0-8) 04/09/19 01:55 U Epithel Cells (Auto) 0.3 /HPF (0-5/HPF) 04/09/19 01:55 Urine Bacteria (Auto) 0.7 /hpf (NEGATIVE) 04/09/19 01:55 ASSESSMENT/PLAN: 89 yo F PMH of HTN, HLD, Left breast cancer, Hypothyroidism, GERD, NIDDM and Multiple CVAs presenting with shortness of breath. admitting to tele for fluid overload 2/2 CKD Fluid overload likely 2/2 CKD vs HFpEF -BNP> 2000.echo 03/2019 nl LV function, mild MR, mild TR, PASP at least 49 mmHg -s/p Lasix 40 in ED, will give Lasix 80 now -continue on lasix 80 IV daily - cardio recs appreciated ( Dr. Ly) -Nephro recs appreciated ( Dr. Sequeira) -consider discussions for dialysis vs infusion center for lasix -continue coreg - hold losartan - will order CT to further classify infiltrate vs fluid overload, will order CT chest to r/o pneumonia. meanwhile will cover with zosyn and azithro -strict I/Os , daily weights HTN - continue lasix, coreg Leukocytosis - will r/o pna with CT -c/w Zosyn, Azithro Lower extremity cellulitis - did not complete outpt course of doxycycline - c/w zosyn, azithro -Doppler negative for DVT CKD -Cr 2.8 -nephro recs appreciated IDDM -ISS, BGM Left breast cancer -continued letrozole GERD -continued pantoprazole Hypothyroidism -continued increased levothyroxine 112mcg daily. last changed during prior admission Visit type - Emergency Visit Emergency Visit: Yes ED Registration Date: 04/08/19 Care time: The patient presented to the Emergency Department on the above date and was hospitalized for further evaluation of their emergent condition. - New Patient This patient is new to me today: Yes Date on this admission: 04/12/19 - Critical Care Critical Care patient: No ATTENDING PHYSICIAN STATEMENT I saw and evaluated the patient. I reviewed the resident's note and discussed the case with the resident. I agree with the resident's findings and plan as documented. SUBJECTIVE: OBJECTIVE: ASSESSMENT AND PLAN:
[2019-04-09] MEDS ORDERED: FUROSEMIDE 40 MG/4 ML INJECTABLE VIAL IVPUSH ONE (05:31)
[2019-04-09] MEDS ORDERED: AZITHROMYCIN IVPB 500 MG/250 ML BAG IVPB ONE (06:00)
[2019-04-09] MEDS ORDERED: FUROSEMIDE 40 MG/4 ML INJECTABLE VIAL IVPUSH SCH (06:00)
[2019-04-09] MEDS: HEPARIN NA (PORCINE) 5,000 UNITS/ML 1ML VIAL SQ SCH ×3 (06:41→21:36)
[2019-04-09 08:02] LABS: BASO % 4.3 % (0-2.0); EOS % 5.4 % (0-4.5); HEMATOCRIT 23.5 % (32.4-45.2); HEMOGLOBIN 7.7 GM/dL (10.7-15.3); LYMPH % 6.3 % (8-40); MCH 33.5 pg (25.7-33.7); MCHC 32.6 g/dl (32.0-36.0); MEAN CELL VOLUME 102.8 fl (80-96); MEAN PLT VOLUME 7.9 fl (7.5-11.1); RBC 2.28 M/mm3 (3.60-5.2); RDW 17.6 % (11.6-15.6); WHITE BLOOD COUNT 19.8 K/mm3 (4.0-10.0)
[2019-04-09] MEDS: LEVOTHYROXINE NA 112 MCG TABLET (FP) PO SCH (08:04)
[2019-04-09] MEDS: CARVEDILOL 25 MG TABLET (FP) PO SCH ×3 (08:04→21:36)
[2019-04-09] MEDS ORDERED: PIPERACILLIN/TAZOBACTAM 2.25 GM VIAL IVPB ONE ×2 (09:07→17:35)
[2019-04-09] MEDS ORDERED: DEXTROSE 5%-WATER - 50 ML IVPB ONE ×2 (09:07→17:35)
[2019-04-09] MEDS: FUROSEMIDE 40 MG/4 ML INJECTABLE VIAL IVPUSH SCH (09:12)
[2019-04-09] MEDS: PIPERACILLIN/TAZOB 2.25 GM 2.25 GM in DEXTROSE 5%-WATER - 50 ML IVPB SCH ×2 (09:12→17:37)
[2019-04-09] MEDS: ASPIRIN 81 MG CHEWABLE TABLETS PO SCH (09:12)
[2019-04-09] MEDS: MULTIVITAMINS (DAILY MVI) TABLET (FP) PO SCH (09:12)
[2019-04-09 09:16] LABS: ALBUMIN 2.8 g/dl (3.4-5.0); BILIRUBIN,TOTAL 0.7 mg/dL (0.2-1); BLOOD UREA NITROGEN 49.1 mg/dL (7-18); CALCIUM 8.7 mg/dL (8.5-10.1); CREATININE 2.7 mg/dL (0.55-1.3); MAGNESIUM 2.4 mg/dL (1.8-2.4); PHOSPHOROUS 5.1 mg/dL (2.5-4.9); POTASSIUM 3.9 mmol/L (3.5-5.1); TOT PROT 6.6 g/dl (6.4-8.2)
[2019-04-09] MEDS ORDERED: PANTOPRAZOLE 40 MG TABLET PO SCH (10:00)
--- NOTE | 2019-04-09 10:22 | CON.CARD ---
Cardiology Consult (text) - Consultation Consultation Note: Chief Complaint: sob History of Present Illness: 89F h/o HTN, DM, CKD, L breast Ca, GERD, recurrent UTI, edema, hypothyroidism p/ w sob. Recent long admit here for le cellulitis and edema. Was dc to snf but within a few days developed sob and cough so came back to ER. No chest pain, palps, dizziness, dyspnea. Still with le edema. 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, Peripheral Neuropathy, Other (guillain barre syndrome, hx bacterial meningitis 1953) Cardio/Vascular: Yes: HTN Gastrointestinal: Yes: GERD Endocrine: Yes: Diabetes Mellitus - Alcohol/Substance Use Hx Alcohol Use: No - Smoking History Smoking history: Never smoked Have you smoked in the past 12 months: No Aproximately how many cigarettes per day: 0 Home Medications - Allergies Allergies/Adverse Reactions: Allergies Allergy/AdvReac Type Severity Reaction Status Date / Time NSAIDS (Non-Steroidal Allergy Severe Difficulty Verified 04/08/19 22:55 Anti-Inflamma Breathing ibuprofen Allergy Intermediate Rash Verified 04/08/19 22:55 meloxicam [From Mobic] Allergy Intermediate Rash Verified 04/08/19 22:55 rosiglitazone maleate Allergy Verified 04/08/19 22:55 [From Avandia] albuterol AdvReac Intermediate Elevated Verified 04/08/19 22:55 Blood Pressure epinephrine AdvReac Intermediate Elevated Verified 04/08/19 22:55 Blood Pressure oxycodone HCl [From Percodan] AdvReac Intermediate Elevated Verified 04/08/19 22 :55 Blood Pressure oxycodone terephthalate AdvReac Intermediate Elevated Verified 04/08/19 22:55 [From Percodan] Blood Pressure flu shot AdvReac Severe GILLAIN Uncoded 04/08/19 22:55 BARRE SYNDROME Home Medications Medication Instructions Recorded Multivitamins [Multivit ([facility] 1 tab PO DAILY 06/10/14 Formulary)] Aspirin [ASA -] 81 mg PO DAILY #0 06/14/14 Amlodipine Besylate 5 mg PO DAILY 06/23/18 Calcium Carbonate/Vitamin D3 1 each PO DAILY 06/23/18 [Calcium 500-Vit D3 400 Tablet] Carvedilol [Coreg -] 25 mg PO BID 06/23/18 Cholecalciferol (Vitamin D3) 400 unit PO DAILY 06/23/18 [Vitamin D -] Famotidine [Pepcid] 40 mg PO DAILY 06/24/18 Letrozole 2.5 mg PO DAILY 06/24/18 Losartan Potassium 100 mg PO DAILY 06/24/18 Potassium Chloride [Klor-Con M20] 20 meq PO DAILY 06/24/18 Tramadol HCl 50 mg PO TID PRN 06/24/18 Insulin Glargine,Hum.rec.anlog 25 units SQ DAILY 03/26/19 [Lantus Solostar PEN -] Pregabalin [Lyrica] 25 mg PO BID 03/26/19 Doxycycline Hyclate 100 mg PO BID #14 tablet 04/06/19 Furosemide [Lasix -] 40 mg PO DAILY #30 tablet 04/06/19 Acetaminophen [Tylenol] 325 mg PO Q6H 04/09/19 Current Medications Generic Name Dose Route Start Last Admin Trade Name Freq PRN Reason Stop Dose Admin Aspirin 81 mg 04/09/19 10:00 04/09/19 09:12 Asa - PO 81 mg DAILY AMRIT Administration Carvedilol 25 mg 04/09/19 07:15 04/09/19 09:12 Coreg - PO Not Given BID AMRIT Furosemide 80 mg 04/09/19 10:00 04/09/19 09:12 Lasix Injection - IVPUSH Not Given DAILY AMRIT Heparin Sodium (Porcine) 5,000 unit 04/09/19 06:00 04/09/19 06:41 Heparin - SQ 5,000 unit TID AMRIT Administration Azithromycin 250 mg/ Dextrose 250 mls @ 250 mls/hr 04/10/19 10:00 IVPB DAILY [facility]IT Piperacillin Sod/Tazobactam 50 mls @ 100 mls/hr 04/09/19 10:00 Sod 2.25 gm/ Dextrose IVPB Q8H-IV [facility]IT Protocol Piperacillin Sod/Tazobactam 50 mls @ 100 mls/hr 04/09/19 10:00 04/09/19 09:12 Sod 2.25 gm/ Dextrose IVPB 04/10/19 02:29 100 mls/hr Q8H-IV AMRIT Administration Insulin Aspart 1 vial 04/09/19 07:00 Novolog Vial Sliding Scale - SQ ACHS AM[facility]IT Protocol Letrozole 2.5 mg 04/09/19 10:00 Femara - PO DAILY [facility] Levothyroxine Sodium 112 mcg 04/09/19 07:00 04/09/19 08:04 Synthroid - PO 112 mcg DAILY@0700 AM[facility]IT Administration Multivitamins/Minerals/Vitamin C 1 tab 04/09/19 10:00 04/09/19 09:12 Tab-A-Vit - PO 1 tab DAILY [facility]IT Administration Pantoprazole Sodium 40 mg 04/09/19 10:00 04/09/19 09:12 Protonix - PO 40 mg DAILY AMRIT Administration Vital Signs: Vital Signs Period Temp Pulse Resp BP Sys/Hernandez Pulse Ox Last 24 Hr 97.7 F-97.7 F 78-84 20-25 145-161/55-86 95-100 nad no JVD nl S1, S2, RRR cta bl nl eff soft, nt, nd +bs 1+ edema b, no c/c aox3 not agitated no jaundice, diaphoresis pos dp pt Laboratory Last Values WBC 19.8 K/mm3 (4.0-10.0) H 04/09/19 06:55 RBC 2.28 M/mm3 (3.60-5.2) L 04/09/19 06:55 Hgb 7.7 GM/dL (10.7-15.3) L 04/09/19 06:55 Hct 23.5 % (32.4-45.2) L 04/09/19 06:55 MCV 102.8 fl (80-96) H 04/09/19 06:55 MCH 33.5 pg (25.7-33.7) 04/09/19 06:55 MCHC 32.6 g/dl (32.0-36.0) 04/09/19 06:55 RDW 17.6 % (11.6-15.6) H 04/09/19 06:55 Plt Count 288 K/MM3 (134-434) 04/09/19 06:55 MPV 7.9 fl (7.5-11.1) 04/09/19 06:55 Absolute Neuts (auto) 14.5 K/mm3 (1.5-8.0) H 04/09/19 06:55 Neutrophils % 73.0 % (42.8-82.8) 04/09/19 06:55 Neutrophils % (Manual) 59.0 % (42.8-82.8) 04/08/19 22:30 Band Neutrophils % 7.0 % 04/08/19 22:30 Lymphocytes % 6.3 % (8-40) L 04/09/19 06:55 Lymphocytes % (Manual) 12.0 % (8-40) D 04/08/19 22:30 Monocytes % 11.0 % (3.8-10.2) H 04/09/19 06:55 Monocytes % (Manual) 4 % (3.8-10.2) 04/08/19 22:30 Eosinophils % 5.4 % (0-4.5) H 04/09/19 06:55 Eosinophils % (Manual) 8.0 % (0-4.5) H 04/08/19 22:30 Basophils % 4.3 % (0-2.0) H 04/09/19 06:55 Basophils % (Manual) 1.0 % (0-2.0) 04/08/19 22:30 Myelocytes % (Man) 5 % (0-2) H D 04/08/19 22:30 Nucleated RBC % 0 % (0-0) 04/09/19 06:55 Metamyelocytes 3 % (0-2) H D 04/08/19 22:30 Platelet Estimate Adequate 04/08/19 22:30 Anisocytosis 1+ 04/08/19 22:30 PT with INR 11.90 SEC (9.7-13.0) 04/08/19 22:30 INR 1.01 (0.83-1.09) 04/08/19 22:30 PTT (Actin FS) 32.4 SECONDS (25.2-36.5) 04/08/19 22:30 VBG pH 7.33 (7.31-7.41) 04/08/19 22:30 POC VBG pCO2 41.6 mmHg (38-52) 04/08/19 22:30 POC VBG pO2 < 49 mmHg (28-48) H 04/08/19 22:30 VBG HCO3 21.5 mmol/L (23-29) L 04/08/19 22:30 VBG O2 Sat (Julita) 70.7 % (70-80) 04/08/19 22:30 VBG Base Excess -3.5 meq/l (-2-2) L 04/08/19 22:30 Sodium 140 mmol/L (136-145) 04/09/19 06:55 Potassium 3.9 mmol/L (3.5-5.1) 04/09/19 06:55 Chloride 110 mmol/L (98-107) H 04/09/19 06:55 Carbon Dioxide 21 mmol/L (21-32) 04/09/19 06:55 Anion Gap 9 MMOL/L (8-16) 04/09/19 06:55 BUN 49.1 mg/dL (7-18) H 04/09/19 06:55 Creatinine 2.7 mg/dL (0.55-1.3) H 04/09/19 06:55 Est GFR (CKD-EPI)AfAm 17.41 04/09/19 06:55 Est GFR (CKD-EPI)NonAf 15.02 04/09/19 06:55 Random Glucose 213 mg/dL (74-106) H 04/09/19 06:55 Lactic Acid 0.7 mmol/L (0.4-2.0) 04/08/19 22:30 Calcium 8.7 mg/dL (8.5-10.1) 04/09/19 06:55 Phosphorus 5.1 mg/dL (2.5-4.9) H 04/09/19 06:55 Magnesium 2.4 mg/dL (1.8-2.4) 04/09/19 06:55 Iron 33 ug/dL (50-175) L 04/09/19 06:55 TIBC 276 ug/dL (250-450) 04/09/19 06:55 Iron Saturation 11 % (17.5-39) L 04/09/19 06:55 Unsaturated IBC 243 ug/dL (200-275) 04/09/19 06:55 Total Bilirubin 0.7 mg/dL (0.2-1) 04/09/19 06:55 AST 21 U/L (15-37) 04/09/19 06:55 ALT 21 U/L (13-61) 04/09/19 06:55 Alkaline Phosphatase 108 U/L (45-117) 04/09/19 06:55 Creatine Kinase 65 U/L (26-192) 04/08/19 22:30 Troponin I 0.03 ng/ml (0.00-0.05) 04/08/19 22:30 B-Natriuretic Peptide 2600.8 pg/ml (5-450) H 04/08/19 22:30 Total Protein 6.6 g/dl (6.4-8.2) 04/09/19 06:55 Albumin 2.8 g/dl (3.4-5.0) L 04/09/19 06:55 Serum Folate 44 ng/mL (3.1-17.5) H 04/09/19 06:55 TSH 11.90 uIU/ml (0.358-3.74) H 04/08/19 22:30 Urine Color Yellow 04/09/19 01:55 Urine Appearance Clear 04/09/19 01:55 Urine pH 6.5 (5.0-8.0) 04/09/19 01:55 Ur Specific [place] 1.014 (1.010-1.035) 04/09/19 01:55 Urine Protein 3+ (NEGATIVE) H 04/09/19 01:55 Urine Glucose (UA) 1+ (NEGATIVE) H 04/09/19 01:55 Urine Ketones Negative (NEGATIVE) 04/09/19 01:55 Urine Blood Negative (NEGATIVE) 04/09/19 01:55 Urine Nitrite Negative (NEGATIVE) 04/09/19 01:55 Urine Bilirubin Negative (NEGATIVE) 04/09/19 01:55 Urine Urobilinogen 0.2 mg/dL (0.2-1.0) 04/09/19 01:55 Ur Leukocyte Esterase Negative (NEGATIVE) 04/09/19 01:55 Urine WBC (Auto) 0 /hpf (0-5) 04/09/19 01:55 Urine RBC (Auto) 1 /hpf (0-4) 04/09/19 01:55 Urine Casts (Auto) 0 /lpf (0-8) 04/09/19 01:55 U Epithel Cells (Auto) 0.3 /HPF (0-5/HPF) 04/09/19 01:55 Urine Bacteria (Auto) 0.7 /hpf (NEGATIVE) 04/09/19 01:55 Assessment/Plan EKG: sinus,nl intervals, no ischemic changes echo 03/2019 nl LV function, mild MR, mild TR, PASP at least 49 mmHg CXR: + congestive changes edema, acute diastolic heart failure exacerbation - recent echo nl LV function - agree with iv lasix, check daily wts, daily chem7 lower ext cellulitis - manage per ID, primary HTN - cont coreg MAURICE - Cr 2s (baseline 1.2) - renal consulted
--- NOTE | 2019-04-09 10:26 | EKG ---
Test Reason : Blood Pressure : / mmHG Vent. Rate : 079 BPM Atrial Rate : 079 BPM P-R Int : 208 ms QRS Dur : 104 ms QT Int : 424 ms P-R-T Axes : 057 -25 041 degrees QTc Int : 486 ms NORMAL SINUS RHYTHM NORMAL ECG WHEN COMPARED WITH ECG OF 09-APR-2019 00:38, NO SIGNIFICANT CHANGE WAS FOUND Confirmed by CHRISTINA LIMA MD ([id number]) on 04/09/2019 10:26:13 AM Referred By: CHRIS ROGERS NNABI Confirmed By:CHRISTINA LIMA MD
--- NOTE | 2019-04-09 11:22 | PN ---
Progress Note (short form) - Note Progress Note: PULMONARY CONSULTATION DICTATED 04/09/19 IMP DYSPNEA
--- NOTE | 2019-04-09 11:39 | CONSULT ---
Admitting History and Physical - Admission History of Present Illness: 89 yo F PMH of HTN, HLD, Left breast cancer, Hypothyroidism, GERD, NIDDM and Multiple CVAs presenting with shortness of breath. admitting to [facility] for fluid overload 2/2 CKD Pt was dc to snf but within a few days developed sob and cough so came back to ER. No chest pain, palps, dizziness, dyspnea. Still with le edema. Laboratory Tests 04/08/19 04/09/19 22:30 06:55 WBC 22.3 H 19.8 H This is my first consult with this pt. 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, Peripheral Neuropathy, Other (guillain barre syndrome, hx bacterial meningitis 195) Cardiovascular: Yes: HTN Gastrointestinal: Yes: GERD ...: No Endocrine: Yes: Diabetes Mellitus - Smoking History Smoking history: Never smoked Have you smoked in the past 12 months: No Aproximately how many cigarettes per day: 0 - Alcohol/Substance Use Hx Alcohol Use: No History - Admission Reason For Visit: SHORTNESS OF BREATH REST,ACUTE KIDNEY INJURY - Diagnostics X-ray: Report Reviewed - General Mental Status: Alert and Oriented, Awake and Alert, Able to Follow Commands Attention: Intact Ability to Follow Directions: Excellent Head/Neck Control: WFL - Hearing Hearing: Functional Speech Evaluation - Communication Primary Language: [id number] Communication: Yes: Within Normal Limits Oral Expression Ability: Yes: No Impairment - Speech Production Able to Make Needs Known: Yes: WNL Intelligibility: Yes: WNL - Speech Characteristics Voice Loudness: Normal Voice Pitch: Yes: Normal Voice Phonatory-based Quality: Yes: Normal, Harsh Speech Pattern: Normal Nasal Resonance: Normal Articulation: Yes: Precise Rate of Speech: Intact Voice, Other Observations: Yes: Inadequate Breath Support (intermittent while speaking) - Language/Auditory Comprehension Follows: Yes: 2 Stage Simple Commands - Language/Verbal Expression Able to Respond to Simple Queries: Yes: WNL Able to Communicate Wants and Needs: Yes: WNL Functional Communication Status: Yes: WNL - Memory/Perception intermediate Memory: Yes: WNL Short Term Memory: Yes: WNL - Swallow Evaluation/Bedside Assessment Current Nutritional Intake: Regular, Thin Liquids Oral Secretions: Yes: WFL Dentition: Yes: Adequate Facial Symmetry at Rest: Facial Droop Left Facial Symmetry on Retraction: Symmetrical Sensation: Normal Against Resistance Opening: Normal Against Resistance Closing: Normal Pucker Lips: Normal Smile: Normal Lingual Movement: Normal, Symmetric (Tongue black coating) Lingual Speed of Movement: Normal Lingual Movement Strgth Against Opposition: Normal Lingual Movement Characteristics: Normal Velopharyngeal Movement: Normal Laryngeal Elevation: WFL Laryngeal Movement: Able to Palpate Rate of Intake: WFL Bolus Size: WFL Labial Seal: WFL Chewing: WFL Oral Prep Time: WFL A-P Transit: WFL Pocketing: None Timing of Swallow: WFL Coughing/Throat Clear: No Change in Voice: No Recommendations - Speech Evaluation, Impression/Plan Impression: Tongue black coating. Overtly no signs or complaint of Dysphagia. Pt denies food sticking. She occasionally coughs while drinking at home, but not observed. Pt slightly sob while eating but noted by nursing this am without PO intake. - Disposition Discharge to: To be Determined - Dysphagia Impressions/Plan Swallowing Skills: WFL Dysphagia Impressions: Minimal Impairment, Ongoing Evaluation *Silent aspiration: cannot be R/O at bedside Recommendations: Other (If cough,congestion, fever, downgrde diet and MBS.) - Recommendations Diet Consistency: Regular Medication Administration: Whole with water Liquids: Thin Liquids
[2019-04-09] MEDS: INSULIN SLIDING SCALE (NOVOLOG) 1 VIAL SQ SCH ×4 (11:57→21:36)
[2019-04-09 12:07] LABS: ANISOCYTOSIS 1+; MACROCYTOSIS 1+; PLATELET ESTIMATE NORMAL
[2019-04-09] MEDS ORDERED: PT OWN MED DRAWER 7, Y5N ONE (12:24)
--- NOTE | 2019-04-09 12:31 | CONSULT ---
Consultation: REQUESTING PROVIDER: Dr. Martinez CONSULT REQUEST: We have been asked to medically evaluate this patient for MAURICE/ CKD. HISTORY OF PRESENT ILLNESS: Patient is an 89 year old female with past medical history of HTN, HLD, Left breast CA, hypothyroidism, GERD, NIDDM, multiple CVAs, diastolic CHF, CKD, presented to the ED due to worsening shortness of breath for the past 2 days. Patient was recently discharged on 04/06/19 from [place] where she was treated for CHF exacerbation and found to have MAURICE on CKD. Patient reported that she had similar symptoms from her previous admission where she had shortness of breath, worse after eating. This was accompanied by nonproductive cough. Patient again reported feeling short of breath this morning at breakfast that improved throughout the day. Patient denies any fevers, chills, headache, chest pain, nausea, vomiting, abdominal pain, diarrhea, urinary symptoms. 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, walks with walker REVIEW OF SYSTEMS: CONSTITUTIONAL: Absent: fever, chills, diaphoresis, generalized weakness, malaise, loss of appetite, weight change HEENT: Absent: rhinorrhea, nasal congestion, throat pain, throat swelling, difficulty swallowing, mouth swelling, ear pain, eye pain, visual changes CARDIOVASCULAR: Absent: chest pain, syncope, palpitations, irregular heart rate, lightheadedness , peripheral edema RESPIRATORY: cough, shortness of breath Absent: dyspnea with exertion, orthopnea, wheezing, stridor, hemoptysis GASTROINTESTINAL: Absent: abdominal pain, abdominal distension, nausea, vomiting, diarrhea, constipation, melena, hematochezia GENITOURINARY: Absent: dysuria, frequency, urgency, hesitancy, hematuria, flank pain, genital pain MUSCULOSKELETAL: Absent: myalgia, arthralgia, joint swelling, back pain, neck pain SKIN: Absent: rash, itching, pallor HEMATOLOGIC/IMMUNOLOGIC: Absent: easy bleeding, easy bruising, lymphadenopathy, frequent infections ENDOCRINE: Absent: unexplained weight gain, unexplained weight loss, heat intolerance, cold intolerance NEUROLOGIC: Absent: headache, focal weakness or paresthesias, dizziness, unsteady gait, seizure, mental status changes, bladder or bowel incontinence PSYCHIATRIC: Absent: anxiety, depression, suicidal or homicidal ideation, hallucinations. PHYSICAL EXAMINATION Vital Signs - 24 hr 04/08/19 04/09/19 04/09/19 22:00 03:15 04:00 Temperature 97.7 F 97.7 F Pulse Rate 84 84 Pulse Rate [ 79 Left Radial] Respiratory 24 H 25 H 20 Rate Blood Pressure 161/60 161/74 Blood Pressure 152/55 L [Right Arm] O2 Sat by Pulse 96 96 95 Oximetry (%) 04/09/19 04/09/19 04/09/19 08:29 09:49 10:00 Temperature 97.7 F Pulse Rate 82 78 Pulse Rate [ Left Radial] Respiratory 22 H 20 Rate Blood Pressure 150/86 145/71 Blood Pressure [Right Arm] O2 Sat by Pulse 97 Oximetry (%) GENERAL: Awake, alert, and fully oriented, on 3L NC HEAD: Normal with no signs of trauma. EYES: PERRLA, EOMI, sclera anicteric, conjunctiva clear. EARS, NOSE, THROAT: Dry mucous membranes. NECK: Normal range of motion LUNGS: +Bibasilar crackles HEART: Regular rate and rhythm, normal S1 and S2 ABDOMEN: Soft, nontender, not distended, normoactive bowel sounds. LOWER EXTREMITIES: 2+ pulses, warm. +chronic venous stasis changes bilaterally, +1 peripheral edema NEUROLOGICAL: Cranial nerves II-XII grossly intact. Normal speech. PSYCHIATRIC: Cooperative. Good eye contact. Appropriate mood and affect. SKIN: Warm, dry, normal turgor Laboratory Results - last 24 hr 04/08/19 04/08/19 04/08/19 22:30 22:30 22:30 WBC 22.3 H RBC 2.35 L Hgb 7.7 L Hct 24.3 L MCV 103.3 H MCH 32.6 MCHC 31.6 L RDW 17.6 H Plt Count 284 MPV 7.8 Absolute Neuts (auto) 16.6 H Neutrophils % 74.7 Neutrophils % (Manual) 59.0 Band Neutrophils % 7.0 Lymphocytes % 7.2 L D Lymphocytes % (Manual) 12.0 D Monocytes % 10.7 H Monocytes % (Manual) 4 Eosinophils % 5.4 H Eosinophils % (Manual) 8.0 H Basophils % 2.0 Basophils % (Manual) 1.0 Myelocytes % (Man) 5 H D Nucleated RBC % 0 Metamyelocytes 3 H D Platelet Estimate Adequate Anisocytosis 1+ PT with INR INR PTT (Actin FS) 32.4 VBG pH POC VBG pCO2 POC VBG pO2 VBG HCO3 VBG O2 Sat (Julita) VBG Base Excess Sodium Potassium Chloride Carbon Dioxide Anion Gap BUN Creatinine Est GFR (CKD-EPI)AfAm Est GFR (CKD-EPI)NonAf POC Glucometer Random Glucose Lactic Acid Calcium Phosphorus Magnesium 2.3 Iron TIBC Iron Saturation Unsaturated IBC Total Bilirubin AST ALT Alkaline Phosphatase Creatine Kinase 65 Troponin I 0.03 B-Natriuretic Peptide 2600.8 H Total Protein Albumin Serum Folate TSH 11.90 H Urine Color Urine Appearance Urine pH Ur Specific [place] Urine Protein Urine Glucose (UA) Urine Ketones Urine Blood Urine Nitrite Urine Bilirubin Urine Urobilinogen Ur Leukocyte Esterase Urine WBC (Auto) Urine RBC (Auto) Urine Casts (Auto) U Epithel Cells (Auto) Urine Bacteria (Auto) 04/08/19 04/08/19 04/08/19 22:30 22:30 22:30 WBC RBC Hgb Hct MCV MCH MCHC RDW Plt Count MPV Absolute Neuts (auto) Neutrophils % Neutrophils % (Manual) Band Neutrophils % Lymphocytes % Lymphocytes % (Manual) Monocytes % Monocytes % (Manual) Eosinophils % Eosinophils % (Manual) Basophils % Basophils % (Manual) Myelocytes % (Man) Nucleated RBC % Metamyelocytes Platelet Estimate Anisocytosis PT with INR INR PTT (Actin FS) VBG pH POC VBG pCO2 POC VBG pO2 VBG HCO3 VBG O2 Sat (Julita) VBG Base Excess Sodium 140 Potassium 4.3 Chloride 110 H Carbon Dioxide 22 Anion Gap 8 BUN 50.5 H Creatinine 2.8 H Est GFR (CKD-EPI)AfAm 16.66 Est GFR (CKD-EPI)NonAf 14.37 POC Glucometer Random Glucose 256 H Lactic Acid 0.7 Calcium 8.8 Phosphorus Magnesium Cancelled Iron TIBC Iron Saturation Unsaturated IBC Total Bilirubin 0.4 AST 22 ALT 21 Alkaline Phosphatase 119 H Creatine Kinase Troponin I B-Natriuretic Peptide Total Protein 6.6 Albumin 2.8 L Serum Folate TSH Urine Color Urine Appearance Urine pH Ur Specific [place] Urine Protein Urine Glucose (UA) Urine Ketones Urine Blood Urine Nitrite Urine Bilirubin Urine Urobilinogen Ur Leukocyte Esterase Urine WBC (Auto) Urine RBC (Auto) Urine Casts (Auto) U Epithel Cells (Auto) Urine Bacteria (Auto) 04/08/19 04/08/19 04/08/19 22:30 22:30 22:30 WBC RBC Hgb Hct MCV MCH MCHC RDW Plt Count MPV Absolute Neuts (auto) Neutrophils % Neutrophils % (Manual) Band Neutrophils % Lymphocytes % Lymphocytes % (Manual) Monocytes % Monocytes % (Manual) Eosinophils % Eosinophils % (Manual) Basophils % Basophils % (Manual) Myelocytes % (Man) Nucleated RBC % Metamyelocytes Platelet Estimate Anisocytosis PT with INR 11.90 INR 1.01 PTT (Actin FS) VBG pH POC VBG pCO2 POC VBG pO2 VBG HCO3 VBG O2 Sat (Julita) VBG Base Excess Sodium Potassium Chloride Carbon Dioxide Anion Gap BUN Creatinine Est GFR (CKD-EPI)AfAm Est GFR (CKD-EPI)NonAf POC Glucometer Random Glucose Lactic Acid Calcium Phosphorus Magnesium Iron TIBC Iron Saturation Unsaturated IBC Total Bilirubin AST ALT Alkaline Phosphatase Creatine Kinase Troponin I B-Natriuretic Peptide Cancelled Total Protein Albumin Serum Folate TSH Cancelled Urine Color Urine Appearance Urine pH Ur Specific [place] Urine Protein Urine Glucose (UA) Urine Ketones Urine Blood Urine Nitrite Urine Bilirubin Urine Urobilinogen Ur Leukocyte Esterase Urine WBC (Auto) Urine RBC (Auto) Urine Casts (Auto) U Epithel Cells (Auto) Urine Bacteria (Auto) 04/08/19 04/09/19 04/09/19 22:30 01:55 06:55 WBC 19.8 H RBC 2.28 L Hgb 7.7 L Hct 23.5 L MCV 102.8 H MCH 33.5 MCHC 32.6 RDW 17.6 H Plt Count 288 MPV 7.9 Absolute Neuts (auto) 14.5 H Neutrophils % 73.0 Neutrophils % (Manual) Band Neutrophils % Lymphocytes % 6.3 L Lymphocytes % (Manual) Monocytes % 11.0 H Monocytes % (Manual) Eosinophils % 5.4 H Eosinophils % (Manual) Basophils % 4.3 H Basophils % (Manual) Myelocytes % (Man) Nucleated RBC % 0 Metamyelocytes Platelet Estimate Anisocytosis PT with INR INR PTT (Actin FS) VBG pH 7.33 POC VBG pCO2 41.6 POC VBG pO2 < 49 H VBG HCO3 21.5 L VBG O2 Sat (Julita) 70.7 VBG Base Excess -3.5 L Sodium Potassium Chloride Carbon Dioxide Anion Gap BUN Creatinine Est GFR (CKD-EPI)AfAm Est GFR (CKD-EPI)NonAf POC Glucometer Random Glucose Lactic Acid Calcium Phosphorus Magnesium Iron TIBC Iron Saturation Unsaturated IBC Total Bilirubin AST ALT Alkaline Phosphatase Creatine Kinase Troponin I B-Natriuretic Peptide Total Protein Albumin Serum Folate TSH Urine Color Yellow Urine Appearance Clear Urine pH 6.5 Ur Specific [place] 1.014 Urine Protein 3+ H Urine Glucose (UA) 1+ H Urine Ketones Negative Urine Blood Negative Urine Nitrite Negative Urine Bilirubin Negative Urine Urobilinogen 0.2 Ur Leukocyte Esterase Negative Urine WBC (Auto) 0 Urine RBC (Auto) 1 Urine Casts (Auto) 0 U Epithel Cells (Auto) 0.3 Urine Bacteria (Auto) 0.7 04/09/19 04/09/19 06:55 11:55 WBC RBC Hgb Hct MCV MCH MCHC RDW Plt Count MPV Absolute Neuts (auto) Neutrophils % Neutrophils % (Manual) Band Neutrophils % Lymphocytes % Lymphocytes % (Manual) Monocytes % Monocytes % (Manual) Eosinophils % Eosinophils % (Manual) Basophils % Basophils % (Manual) Myelocytes % (Man) Nucleated RBC % Metamyelocytes Platelet Estimate Anisocytosis PT with INR INR PTT (Actin FS) VBG pH POC VBG pCO2 POC VBG pO2 VBG HCO3 VBG O2 Sat (Julita) VBG Base Excess Sodium 140 Potassium 3.9 Chloride 110 H Carbon Dioxide 21 Anion Gap 9 BUN 49.1 H Creatinine 2.7 H Est GFR (CKD-EPI)AfAm 17.41 Est GFR (CKD-EPI)NonAf 15.02 POC Glucometer 219 Random Glucose 213 H Lactic Acid Calcium 8.7 Phosphorus 5.1 H Magnesium 2.4 Iron 33 L TIBC 276 Iron Saturation 11 L Unsaturated IBC 243 Total Bilirubin 0.7 AST 21 ALT 21 Alkaline Phosphatase 108 Creatine Kinase Troponin I B-Natriuretic Peptide Total Protein 6.6 Albumin 2.8 L Serum Folate 44 H TSH Urine Color Urine Appearance Urine pH Ur Specific [place] Urine Protein Urine Glucose (UA) Urine Ketones Urine Blood Urine Nitrite Urine Bilirubin Urine Urobilinogen Ur Leukocyte Esterase Urine WBC (Auto) Urine RBC (Auto) Urine Casts (Auto) U Epithel Cells (Auto) Urine Bacteria (Auto) Active Medications Generic Name Dose Route Start Last Admin Trade Name Freq PRN Reason Stop Dose Admin Aspirin 81 mg 04/09/19 10:00 04/09/19 09:12 Asa - PO 81 mg DAILY AMRIT Administration Carvedilol 25 mg 04/09/19 07:15 04/09/19 09:12 Coreg - PO Not Given BID AMRIT Furosemide 80 mg 04/09/19 10:00 04/09/19 09:12 Lasix Injection - IVPUSH Not Given DAILY AMRIT Heparin Sodium (Porcine) 5,000 unit 04/09/19 06:00 04/09/19 06:41 Heparin - SQ 5,000 unit TID AMRIT Administration Azithromycin 250 mg/ Dextrose 250 mls @ 250 mls/hr 04/10/19 10:00 IVPB DAILY AMRIT Piperacillin Sod/Tazobactam 50 mls @ 100 mls/hr 04/09/19 10:00 Sod 2.25 gm/ Dextrose IVPB Q8H-IV AMRIT Protocol Piperacillin Sod/Tazobactam 50 mls @ 100 mls/hr 04/09/19 10:00 04/09/19 09:12 Sod 2.25 gm/ Dextrose IVPB 04/10/19 02:29 100 mls/hr Q8H-IV AMRIT Administration Insulin Aspart 1 vial 04/09/19 07:00 04/09/19 11:57 Novolog Vial Sliding Scale - SQ 4 units ACHS AMRIT Administration Protocol Letrozole 2.5 mg 04/09/19 10:00 Femara - PO DAILY AMRIT Levothyroxine Sodium 112 mcg 04/09/19 07:00 04/09/19 08:04 Synthroid - PO 112 mcg DAILY@0700 AMRIT Administration Multivitamins/Minerals/Vitamin C 1 tab 04/09/19 10:00 04/09/19 09:12 Tab-A-Vit - PO 1 tab DAILY AMRIT Administration Pantoprazole Sodium 40 mg 04/09/19 10:00 04/09/19 09:12 Protonix - PO 40 mg DAILY AMRIT Administration ASSESSMENT/PLAN: Patient is an 89 year old female with past medical history of HTN, HLD, Left breast CA, hypothyroidism, GERD, NIDDM, multiple CVAs, diastolic CHF, CKD, presented to the ED due to worsening shortness of breath for the past 2 days. #MAURICE on CKD -Cr 2.7 today, baseline 1.2 in June 2018 -UA - 3+NIKOLAI, 1+glu -renal US (04/01)- echogenic kidneys consistent with medical renal disease -spep studies pending (done on previous admission) -consider kidney biopsy once more stable -On IV Lasix -monitor renal function -I&O -avoid nephrotoxic agents such as NSAIDs, contrast agents #Hypertension -continue Coreg Dispo: We will continue to follow the patient. Thank you for this consultative opportunity. Visit type - Emergency Visit Emergency Visit: Yes ED Registration Date: 04/08/19 Care time: The patient presented to the Emergency Department on the above date and was hospitalized for further evaluation of their emergent condition. - New Patient This patient is new to me today: Yes Date on this admission: 04/09/19 - Critical Care Critical Care patient: No ATTENDING PHYSICIAN STATEMENT I saw and evaluated the patient. I reviewed the resident's note and discussed the case with the resident. I agree with the resident's findings and plan as documented. SUBJECTIVE: OBJECTIVE: ASSESSMENT AND PLAN:
[2019-04-09] MEDS: LETROZOLE 2.5 MG TABLET (FP) PO SCH (12:39)
--- NOTE | 2019-04-09 13:21 | EKG ---
Test Reason : Blood Pressure : / mmHG Vent. Rate : 080 BPM Atrial Rate : 080 BPM P-R Int : 208 ms QRS Dur : 104 ms QT Int : 404 ms P-R-T Axes : 060 -30 066 degrees QTc Int : 465 ms NORMAL SINUS RHYTHM LEFT AXIS DEVIATION INCOMPLETE RIGHT BUNDLE BRANCH BLOCK ANTEROSEPTAL INFARCT , AGE UNDETERMINED ABNORMAL ECG WHEN COMPARED WITH ECG OF 27-MAR-2019 00:48, INCOMPLETE RIGHT BUNDLE BRANCH BLOCK HAS REPLACED INCOMPLETE LEFT BUNDLE BRANCH BLOCK ANTEROSEPTAL INFARCT IS NOW PRESENT Confirmed by CHRISTINA LIMA MD ([id number]) on 04/09/2019 1:21:05 PM Referred By: Confirmed By:CHRISTINA LIMA MD
--- NOTE | 2019-04-09 13:57 | PN ---
Progress Note (short form) - Note Progress Note: PULMONARY CONSULTATION DICTATED 04/09/19 IMP DYSPNEA ACUTE DIASTOLIC HF LOWER EXT EDEMA ACUTE ON CHRONIC KIDNEY DISEASE H/O LEFT BREAST CA S/P LUMPECTOMY,RT 2014 ANEMIA H/O CVA X 4 WITH LEFT SIDED WEAKNESS HTN H/O GUILLAIN BARRE DM CELLULITIS H/O MENINGITIS H/O RHEUMATIC FEVER PLAN LASIX O2 ABX MONITOR LYTES,RENAL FUNCTION MONITOR H+H DAILY WTS F/U CHEST X-RAYS NORMAL TRANSFUSION THRESHOLD DR CARVER Problem List - Problems (1) Acute kidney injury superimposed on CKD Code(s): N17.9 - ACUTE KIDNEY FAILURE, UNSPECIFIED; N18.9 - CHRONIC KIDNEY DISEASE, UNSPECIFIED (2) Anemia Code(s): D64.9 - ANEMIA, UNSPECIFIED Qualifiers: Anemia type: unspecified type Qualified Code(s): D64.9 - Anemia, unspecified (3) Bilateral leg edema Code(s): R60.0 - LOCALIZED EDEMA (4) Hypothyroid Code(s): E03.9 - HYPOTHYROIDISM, UNSPECIFIED Qualifiers: Hypothyroidism type: unspecified Qualified Code(s): E03.9 - Hypothyroidism , unspecified (5) Pulmonary vascular congestion Code(s): R09.89 - OTH SYMPTOMS AND SIGNS INVOLVING THE CIRC AND RESP SYSTEMS (6) Shortness of breath Code(s): R06.02 - SHORTNESS OF BREATH (7) Breast cancer Code(s): C50.919 - MALIGNANT NEOPLASM OF UNSP SITE OF UNSPECIFIED FEMALE BREAST (8) Breast cancer, left Code(s): C50.912 - MALIGNANT NEOPLASM OF UNSPECIFIED SITE OF LEFT FEMALE BREAST (9) Diabetes Code(s): E11.9 - TYPE 2 DIABETES MELLITUS WITHOUT COMPLICATIONS Qualifiers: Diabetes mellitus type: type 2 (10) History of CVA with residual deficit Code(s): I69.30 - UNSPECIFIED SEQUELAE OF CEREBRAL INFARCTION (11) Lower extremity cellulitis Code(s): L03.119 - CELLULITIS OF UNSPECIFIED PART OF LIMB (12) Acute diastolic (congestive) heart failure Code(s): I50.31 - ACUTE DIASTOLIC (CONGESTIVE) HEART FAILURE
[2019-04-09] MEDS: ACETAMINOPHEN 325 MG TABLET (FP) PO PRN ×2 (15:01→21:49)
--- NOTE | 2019-04-09 15:30 | CONS ---
PULMONARY CONSULTATION DATE OF CONSULTATION: 04/09/2019 REFERRING PHYSICIAN: Edith Bernstein MD HISTORY OF PRESENT ILLNESS: Patient is an 89-year-old, female with past medical history of left breast CA, status post lumpectomy as well as RT in 2014, hypertension, hyperlipidemia, chronic kidney disease, [id number] diabetes mellitus, multiple CVAs with left-sided weakness, hypothyroidism, GERD, history of meningitis in 195, anemia. Recently hospitalized at [facility], secondary to bilateral lower extremity cellulitis. Hospitalization complicated by shortness of breath. At the time, she was started on Lasix and felt to have heart failure. Was discharged to rehab to and readmitted on April 08 with increasing shortness of breath. Patient denied any complaints of chest pain, nausea, vomiting, diaphoresis. Apparently, on the evening prior to admission, she started developing shortness of breath, as well as increasing lower extremity edema. After eating dinner, breathing became severe; at which time, she went to the emergency room. In the ER, she had a BNP of greater than 2000. She was given Lasix and transferred up to medical floor for further management. She was also placed on broad-spectrum antibiotics for lower extremity cellulitis. Patient is a nonsmoker. She denies any history of occupational exposure to chemicals or fumes. She denies any history of COPD or asthma in the past. PAST MEDICAL HISTORY: Again, includes hypothyroidism; left breast CA, status post RT and lumpectomy; hypertension; hyperlipidemia; ttc-izlqvka-[id number] diabetes mellitus; meningitis; multiple CVAs with left-sided weakness; GERD; history of Guillain-Garberville syndrome; chronic kidney disease; and history of rheumatic fever. REVIEW OF SYSTEMS: Positive dyspnea. No chest pain. No palpitations. No fever. No chills. No hemoptysis. No abdominal pain. Positive lower extremity edema. CURRENT MEDICATIONS: Include Zithromax, piperacillin, heparin, Femara, Coreg, NovoLog, Lasix 80 mg IV, , aspirin, Protonix, and Synthroid. PHYSICAL EXAMINATION: General: Patient is a well-developed, well-nourished female, awake, alert, currently in no acute distress. Vital Signs: She is afebrile, blood pressure is 145/71, respiratory rate is 20, O2 saturation is 97% on 3 L nasal cannula. HEENT: Exam is normocephalic, atraumatic. Neck: Supple without adenopathy. Heart: Regular S1 and S2. Chest: A few bibasilar crackles. Abdomen: Soft. Bowel sounds are positive. Extremities: Bilateral lower extremity edema and erythema. LABORATORIES: WBC is 19.8, hemoglobin 7.7, hematocrit 23.5, with a platelet count that was not performed. There are 73 polys, 6 monos, 11 lymphs, and 5 eosinophils. Venous blood gas: 7.33, PCO2 of 41, a PO2 of less than 49, a bicarbonate of 21. INR is 1.01. Chemistries: BUN 49, creatinine 2.7. Chest CT reveals bilateral pleural effusions, pulmonary vascular congestion. Echo reveals left ventricle normal size, normal left ventricular systolic function, right ventricle normal, there is evidence of pulmonary hypertension. IMPRESSION: 1. Dyspnea, secondary to acute diastolic heart failure. 2. Lower extremity edema, secondary to above. 3. Acute on chronic kidney disease. 4. History of left breast CA, status post lumpectomy, RT in 2014. 5. Anemia. 6. History of cerebrovascular accident x4 and left-sided weakness. 7. Hypertension. 8. History of Guillain-Garberville. 9. Diabetes. 10. Cellulitis. 11. History of meningitis. 12. History of rheumatic fever. PLAN: Continue Lasix. Supplemental O2. Antibiotics as per ID. Monitor electrolytes, renal function. Monitor hemoglobin and hematocrit. Normal transfusion threshold. Daily weights and follow up chest x-rays. EDITH CARVER M.D. AGUSTIN/[id number]
--- NOTE | 2019-04-09 16:01 | PN ---
Teaching Attending Note Name of Resident: Lynette Lucio (Nephrology) ATTENDING PHYSICIAN STATEMENT I saw and evaluated the patient. I reviewed the resident's note and discussed the case with the resident. I agree with the resident's findings and plan as documented. Renal Pt seen and examined at bedside. She complains of lower ext edema and shortness pf breath. She was recently discharged from [facility]. She denies chest pain. She denies dysuria or hematuria. Current Medications Generic Name Dose Route Start Last Admin Trade Name Freq PRN Reason Stop Dose Admin Acetaminophen 650 mg 04/09/19 14:53 04/09/19 15:01 Tylenol - PO 650 mg Q6H PRN Administration PAIN Aspirin 81 mg 04/09/19 10:00 04/09/19 09:12 Asa - PO 81 mg DAILY AMRIT Administration Carvedilol 25 mg 04/09/19 07:15 04/09/19 09:12 Coreg - PO Not Given BID AMRIT Furosemide 80 mg 04/09/19 10:00 04/09/19 09:12 Lasix Injection - IVPUSH Not Given DAILY AMRIT Heparin Sodium (Porcine) 5,000 unit 04/09/19 06:00 04/09/19 14:42 Heparin - SQ 5,000 unit TID AMRIT Administration Azithromycin 250 mg/ Dextrose 250 mls @ 250 mls/hr 04/10/19 10:00 IVPB DAILY AMRIT Piperacillin Sod/Tazobactam 50 mls @ 100 mls/hr 04/09/19 10:00 Sod 2.25 gm/ Dextrose IVPB Q8H-IV AMRIT Protocol Piperacillin Sod/Tazobactam 50 mls @ 100 mls/hr 04/09/19 10:00 04/09/19 09:12 Sod 2.25 gm/ Dextrose IVPB 04/10/19 02:29 100 mls/hr Q8H-IV AMRIT Administration Insulin Aspart 1 vial 04/09/19 07:00 04/09/19 12:12 Novolog Vial Sliding Scale - SQ Not Given ACHS AMRIT Protocol Letrozole 2.5 mg 04/09/19 10:00 04/09/19 12:39 Femara - PO 2.5 mg DAILY AMRIT Administration Levothyroxine Sodium 112 mcg 04/09/19 07:00 04/09/19 08:04 Synthroid - PO 112 mcg DAILY@0700 AMRIT Administration Multivitamins/Minerals/Vitamin C 1 tab 04/09/19 10:00 04/09/19 09:12 Tab-A-Vit - PO 1 tab DAILY AMRIT Administration Pantoprazole Sodium 40 mg 04/09/19 10:00 04/09/19 09:12 Protonix - PO 40 mg DAILY AMRIT Administration Laboratory Tests 08/10/17 03/17/18 06/24/18 06:00 16:45 06:30 Creatinine 1.0 1.3 Urine Protein 3+ H 06/25/18 03/27/19 03/27/19 07:06 00:30 09:35 Creatinine 1.2 2.4 H Urine Protein 3+ H 03/28/19 03/29/19 03/30/19 06:00 07:25 07:05 Creatinine 2.2 H 2.2 H 2.1 H Urine Protein 03/31/19 04/01/19 04/02/19 08:00 15:28 07:05 Creatinine 2.3 H 2.5 H 2.4 H Urine Protein 04/03/19 04/04/19 04/05/19 07:39 07:00 07:22 Creatinine 2.4 H 2.6 H 2.4 H Urine Protein cardio s1s2 pulm base crackles GI soft ext edema neuro awake and alert skin venous changes Laboratory Tests 04/05/19 15:10 DARLING M-Kenneth Pending Impression 1. proteinuria 2. hypothyroid 3. HTN 4. DM 5. fluid overload 6. breast cancer 7. MAURICE 8. 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
--- NOTE | 2019-04-09 17:30 | PN ---
Physical Exam: 89 year old woman with a PMH of HTN, HLD, Left breast cancer, Hypothyroidism, GERD, NIDDM and Multiple CVAs recently admitted at [facility] for bilateral LE cellulitis (discharged 04/06/19) presenting with difficulty breathing for several days. Patient was found to have bilateral lower lobe PNA, CHFE and exacerbation of LE cellulitis, Patient started on Vanc/Zosyn/Azithromycin. Feeling slightly better, LE cellulitis slightly improving. GA: comfortable, AAox3, elderly, frail, speaks in full sentences HEENT: No Jaundice, eye redness or discharge, PERRLA, EOMI. Normocephalic, atraumatic. External ears are normal and hearing is grossly intact. No nasal discharge. Neck: Supple, nontender. No palpable adenopathy or thyromegaly. No JVD Chest: Good effort. Clear to auscultation and percussion. Heart: Regular. No S3, rub or murmur Abdomen: Not distended, soft, nontender and no HSM. No rebound or guarding. Normal bowel sounds. Ext: Peripheral pulses intact. Leg edema with mild erythema. Skin: Warm and dry. No petechiae, rash or ecchymosis. Neuro: Alert. Oriented x3. CN 2-12 grossly intact. Sensation grossly intact in all four extremities and DTR are symmetric. Psych: Appropriate mood and affect. Good insight. Vital Signs - 24 hr 04/08/19 04/09/19 04/09/19 22:00 03:15 04:00 Temperature 97.7 F 97.7 F Pulse Rate 84 84 Pulse Rate [ 79 Left Radial] Respiratory 24 H 25 H 20 Rate Blood Pressure 161/60 161/74 Blood Pressure 152/55 L [Right Arm] O2 Sat by Pulse 96 96 95 Oximetry (%) 04/09/19 04/09/19 04/09/19 08:29 09:00 09:49 Temperature 97.7 F Pulse Rate 82 78 Pulse Rate [ Left Radial] Respiratory 22 H 20 Rate Blood Pressure 150/86 145/71 Blood Pressure [Right Arm] O2 Sat by Pulse 97 Oximetry (%) 04/09/19 04/09/19 10:00 14:20 Temperature 98.5 F Pulse Rate 109 H Pulse Rate [ Left Radial] Respiratory 20 Rate Blood Pressure 114/73 Blood Pressure [Right Arm] O2 Sat by Pulse 97 Oximetry (%) Laboratory Results - last 24 hr 04/08/19 04/08/19 04/08/19 22:30 22:30 22:30 WBC 22.3 H RBC 2.35 L Hgb 7.7 L Hct 24.3 L MCV 103.3 H MCH 32.6 MCHC 31.6 L RDW 17.6 H Plt Count 284 MPV 7.8 Absolute Neuts (auto) 16.6 H Neutrophils % 74.7 Neutrophils % (Manual) 59.0 Band Neutrophils % 7.0 Lymphocytes % 7.2 L D Lymphocytes % (Manual) 12.0 D Monocytes % 10.7 H Monocytes % (Manual) 4 Eosinophils % 5.4 H Eosinophils % (Manual) 8.0 H Basophils % 2.0 Basophils % (Manual) 1.0 Myelocytes % (Man) 5 H D Promyelocytes % (Man) Blast Cells % (Manual) Nucleated RBC % 0 Metamyelocytes 3 H D Hypochromia Platelet Estimate Adequate Platelet Comment Polychromasia Poikilocytosis Anisocytosis 1+ Macrocytosis PT with INR INR PTT (Actin FS) 32.4 VBG pH POC VBG pCO2 POC VBG pO2 VBG HCO3 VBG O2 Sat (Julita) VBG Base Excess Sodium Potassium Chloride Carbon Dioxide Anion Gap BUN Creatinine Est GFR (CKD-EPI)AfAm Est GFR (CKD-EPI)NonAf POC Glucometer Random Glucose Lactic Acid Calcium Phosphorus Magnesium 2.3 Iron TIBC Iron Saturation Unsaturated IBC Total Bilirubin AST ALT Alkaline Phosphatase Creatine Kinase 65 Troponin I 0.03 B-Natriuretic Peptide 2600.8 H Total Protein Albumin Serum Folate TSH 11.90 H Urine Color Urine Appearance Urine pH Ur Specific [place] Urine Protein Urine Glucose (UA) Urine Ketones Urine Blood Urine Nitrite Urine Bilirubin Urine Urobilinogen Ur Leukocyte Esterase Urine WBC (Auto) Urine RBC (Auto) Urine Casts (Auto) U Epithel Cells (Auto) Urine Bacteria (Auto) 04/08/19 04/08/19 04/08/19 22:30 22:30 22:30 WBC RBC Hgb Hct MCV MCH MCHC RDW Plt Count MPV Absolute Neuts (auto) Neutrophils % Neutrophils % (Manual) Band Neutrophils % Lymphocytes % Lymphocytes % (Manual) Monocytes % Monocytes % (Manual) Eosinophils % Eosinophils % (Manual) Basophils % Basophils % (Manual) Myelocytes % (Man) Promyelocytes % (Man) Blast Cells % (Manual) Nucleated RBC % Metamyelocytes Hypochromia Platelet Estimate Platelet Comment Polychromasia Poikilocytosis Anisocytosis Macrocytosis PT with INR INR PTT (Actin FS) VBG pH POC VBG pCO2 POC VBG pO2 VBG HCO3 VBG O2 Sat (Julita) VBG Base Excess Sodium 140 Potassium 4.3 Chloride 110 H Carbon Dioxide 22 Anion Gap 8 BUN 50.5 H Creatinine 2.8 H Est GFR (CKD-EPI)AfAm 16.66 Est GFR (CKD-EPI)NonAf 14.37 POC Glucometer Random Glucose 256 H Lactic Acid 0.7 Calcium 8.8 Phosphorus Magnesium Cancelled Iron TIBC Iron Saturation Unsaturated IBC Total Bilirubin 0.4 AST 22 ALT 21 Alkaline Phosphatase 119 H Creatine Kinase Troponin I B-Natriuretic Peptide Total Protein 6.6 Albumin 2.8 L Serum Folate TSH Urine Color Urine Appearance Urine pH Ur Specific [place] Urine Protein Urine Glucose (UA) Urine Ketones Urine Blood Urine Nitrite Urine Bilirubin Urine Urobilinogen Ur Leukocyte Esterase Urine WBC (Auto) Urine RBC (Auto) Urine Casts (Auto) U Epithel Cells (Auto) Urine Bacteria (Auto) 04/08/19 04/08/19 04/08/19 22:30 22:30 22:30 WBC RBC Hgb Hct MCV MCH MCHC RDW Plt Count MPV Absolute Neuts (auto) Neutrophils % Neutrophils % (Manual) Band Neutrophils % Lymphocytes % Lymphocytes % (Manual) Monocytes % Monocytes % (Manual) Eosinophils % Eosinophils % (Manual) Basophils % Basophils % (Manual) Myelocytes % (Man) Promyelocytes % (Man) Blast Cells % (Manual) Nucleated RBC % Metamyelocytes Hypochromia Platelet Estimate Platelet Comment Polychromasia Poikilocytosis Anisocytosis Macrocytosis PT with INR 11.90 INR 1.01 PTT (Actin FS) VBG pH POC VBG pCO2 POC VBG pO2 VBG HCO3 VBG O2 Sat (Julita) VBG Base Excess Sodium Potassium Chloride Carbon Dioxide Anion Gap BUN Creatinine Est GFR (CKD-EPI)AfAm Est GFR (CKD-EPI)NonAf POC Glucometer Random Glucose Lactic Acid Calcium Phosphorus Magnesium Iron TIBC Iron Saturation Unsaturated IBC Total Bilirubin AST ALT Alkaline Phosphatase Creatine Kinase Troponin I B-Natriuretic Peptide Cancelled Total Protein Albumin Serum Folate TSH Cancelled Urine Color Urine Appearance Urine pH Ur Specific [place] Urine Protein Urine Glucose (UA) Urine Ketones Urine Blood Urine Nitrite Urine Bilirubin Urine Urobilinogen Ur Leukocyte Esterase Urine WBC (Auto) Urine RBC (Auto) Urine Casts (Auto) U Epithel Cells (Auto) Urine Bacteria (Auto) 04/08/19 04/09/19 04/09/19 22:30 01:55 06:55 WBC 19.8 H RBC 2.28 L Hgb 7.7 L Hct 23.5 L MCV 102.8 H MCH 33.5 MCHC 32.6 RDW 17.6 H Plt Count License Inspector MPV 7.9 Absolute Neuts (auto) 14.5 H Neutrophils % 73.0 Neutrophils % (Manual) 67.3 Band Neutrophils % 0.0 Lymphocytes % 6.3 L Lymphocytes % (Manual) 6.7 L D Monocytes % 11.0 H Monocytes % (Manual) 13 H D Eosinophils % 5.4 H Eosinophils % (Manual) 3.8 Basophils % 4.3 H Basophils % (Manual) 1.0 Myelocytes % (Man) 3 H D Promyelocytes % (Man) 0 Blast Cells % (Manual) 0 Nucleated RBC % 0 Metamyelocytes 5 H D Hypochromia 0 Platelet Estimate Normal Platelet Comment Unable to enumerate Polychromasia 0 Poikilocytosis 0 Anisocytosis 1+ Macrocytosis 1+ PT with INR INR PTT (Actin FS) VBG pH 7.33 POC VBG pCO2 41.6 POC VBG pO2 < 49 H VBG HCO3 21.5 L VBG O2 Sat (Julita) 70.7 VBG Base Excess -3.5 L Sodium Potassium Chloride Carbon Dioxide Anion Gap BUN Creatinine Est GFR (CKD-EPI)AfAm Est GFR (CKD-EPI)NonAf POC Glucometer Random Glucose Lactic Acid Calcium Phosphorus Magnesium Iron TIBC Iron Saturation Unsaturated IBC Total Bilirubin AST ALT Alkaline Phosphatase Creatine Kinase Troponin I B-Natriuretic Peptide Total Protein Albumin Serum Folate TSH Urine Color Yellow Urine Appearance Clear Urine pH 6.5 Ur Specific [place] 1.014 Urine Protein 3+ H Urine Glucose (UA) 1+ H Urine Ketones Negative Urine Blood Negative Urine Nitrite Negative Urine Bilirubin Negative Urine Urobilinogen 0.2 Ur Leukocyte Esterase Negative Urine WBC (Auto) 0 Urine RBC (Auto) 1 Urine Casts (Auto) 0 U Epithel Cells (Auto) 0.3 Urine Bacteria (Auto) 0.7 04/09/19 04/09/19 04/09/19 06:55 11:55 17:04 WBC RBC Hgb Hct MCV MCH MCHC RDW Plt Count MPV Absolute Neuts (auto) Neutrophils % Neutrophils % (Manual) Band Neutrophils % Lymphocytes % Lymphocytes % (Manual) Monocytes % Monocytes % (Manual) Eosinophils % Eosinophils % (Manual) Basophils % Basophils % (Manual) Myelocytes % (Man) Promyelocytes % (Man) Blast Cells % (Manual) Nucleated RBC % Metamyelocytes Hypochromia Platelet Estimate Platelet Comment Polychromasia Poikilocytosis Anisocytosis Macrocytosis PT with INR INR PTT (Actin FS) VBG pH POC VBG pCO2 POC VBG pO2 VBG HCO3 VBG O2 Sat (Julita) VBG Base Excess Sodium 140 Potassium 3.9 Chloride 110 H Carbon Dioxide 21 Anion Gap 9 BUN 49.1 H Creatinine 2.7 H Est GFR (CKD-EPI)AfAm 17.41 Est GFR (CKD-EPI)NonAf 15.02 POC Glucometer 219 178 Random Glucose 213 H Lactic Acid Calcium 8.7 Phosphorus 5.1 H Magnesium 2.4 Iron 33 L TIBC 276 Iron Saturation 11 L Unsaturated IBC 243 Total Bilirubin 0.7 AST 21 ALT 21 Alkaline Phosphatase 108 Creatine Kinase Troponin I B-Natriuretic Peptide Total Protein 6.6 Albumin 2.8 L Serum Folate 44 H TSH Urine Color Urine Appearance Urine pH Ur Specific [place] Urine Protein Urine Glucose (UA) Urine Ketones Urine Blood Urine Nitrite Urine Bilirubin Urine Urobilinogen Ur Leukocyte Esterase Urine WBC (Auto) Urine RBC (Auto) Urine Casts (Auto) U Epithel Cells (Auto) Urine Bacteria (Auto) Current Medications Generic Name Dose Route Start Last Admin Trade Name Freq PRN Reason Stop Dose Admin Acetaminophen 650 mg 04/09/19 14:53 04/09/19 15:01 Tylenol - PO 650 mg Q6H PRN Administration PAIN Aspirin 81 mg 04/09/19 10:00 04/09/19 09:12 Asa - PO 81 mg DAILY [facility] Administration Carvedilol 25 mg 04/09/19 07:15 04/09/19 09:12 Coreg - PO Not Given BID [facility] Furosemide 80 mg 04/09/19 10:00 04/09/19 09:12 Lasix Injection - IVPUSH Not Given DAILY [facility] Heparin Sodium (Porcine) 5,000 unit 04/09/19 06:00 04/09/19 14:42 Heparin - SQ 5,000 unit TID [facility] Administration Azithromycin 250 mg/ Dextrose 250 mls @ 250 mls/hr 04/10/19 10:00 IVPB DAILY [facility] Piperacillin Sod/Tazobactam 50 mls @ 100 mls/hr 04/09/19 10:00 Sod 2.25 gm/ Dextrose IVPB Q8H-IV [facility] Protocol Piperacillin Sod/Tazobactam 50 mls @ 100 mls/hr 04/09/19 10:00 04/09/19 09:12 Sod 2.25 gm/ Dextrose IVPB 04/10/19 02:29 100 mls/hr Q8H-IV [facility] Administration Insulin Aspart 1 vial 04/09/19 07:00 04/09/19 17:06 Novolog Vial Sliding Scale - SQ 2 units ACHS [facility] Administration Protocol Letrozole 2.5 mg 04/09/19 10:00 04/09/19 12:39 Femara - PO 2.5 mg DAILY [facility] Administration Levothyroxine Sodium 112 mcg 04/09/19 07:00 04/09/19 08:04 Synthroid - PO 112 mcg DAILY@0700 [facility] Administration Multivitamins/Minerals/Vitamin C 1 tab 04/09/19 10:00 04/09/19 09:12 Tab-A-Vit - PO 1 tab DAILY [facility] Administration Pantoprazole Sodium 40 mg 04/09/19 10:00 04/09/19 09:12 Protonix - PO 40 mg DAILY [facility] Administration A/P: 89 F h/o multiple comorbidities, chronic LE cellulitis, multiple CVAs in the past, recurrent admittions for LE cellulitis, presents with HAP with HFpEF with acute exacerbation and exacerbation of LE b/l cellulitis. HAP PNA Cont. Abx Azithromycin, Zosyn, Vanco Cont. NC O2 PRN, (patient refusing albuterol endorses allergy/intolerance), HOB elevation aspiration precautions, Lasix PRN for SOB, BiPAp on standby for respiratory distress Pulmonary: Dr. Moreno Chronic LE cellulitis being covered with current abx on board Consult ID for chronic refractory LE cellulitis: Dr Khanna HFpEF with acute exacerbation likely due to Na and fluid restriction non-compliance Lasix 80mg daily Fluid/Na restriction Cardiology: Dr. Lala MAURICE on CKD With proteinuria, avoid nephrotoxic agents patient comfortable right now no signs of impending respiratory failure or refractory uremia, CRE however not much improved follow MAURICE workup Renal consult: Dr. Sequeira HTN controlled, cont. BP meds HLD cont. Statin Multiple CVA in past will likely need palcement after this admission PT referral when patient more stable and can participate DVT ppx: Heparin SC GI ppx: PPI Bowel regimen: add Senna, Docusate, miralax PRN Visit type - Emergency Visit Emergency Visit: Yes ED Registration Date: 04/08/19 Care time: The patient presented to the Emergency Department on the above date and was hospitalized for further evaluation of their emergent condition. - New Patient This patient is new to me today: No - Critical Care Critical Care patient: No
[2019-04-09 22:36] LABS: EPI CELLS 0.5 /HPF (0-5/HPF); HYALINE CASTS 1 /lpf (0-8); URINE APPEARANCE CLEAR; URINE BACTERIA 0.3 /hpf (NEGATIVE); URINE BILIRUBIN NEGATIVE (NEGATIVE); URINE COLOR YELLOW; URINE GLUCOSE (UA) TRACE (NEGATIVE); URINE KETONE NEGATIVE (NEGATIVE); URINE LEUK ESTERASE NEGATIVE (NEGATIVE); URINE NITRITE NEGATIVE (NEGATIVE); URINE PROTEIN 3+ (NEGATIVE); URINE RBC 4 /hpf (0-4); URINE UROBILINOGEN 0.2 mg/dL (0.2-1.0); URINE WBC 0 /hpf (0-5)
[2019-04-10] MEDS ORDERED: DEXTROSE 5%-WATER - 50 ML IVPB ONE (01:04)
[2019-04-10] MEDS ORDERED: PIPERACILLIN/TAZOBACTAM 2.25 GM VIAL IVPB ONE (01:04)
[2019-04-10] MEDS: PIPERACILLIN/TAZOB 2.25 GM 2.25 GM in DEXTROSE 5%-WATER - 50 ML IVPB SCH ×2 (01:34→11:00)
[2019-04-10] MEDS: INSULIN SLIDING SCALE (NOVOLOG) 1 VIAL SQ SCH ×4 (06:21→21:37)
[2019-04-10] MEDS: HEPARIN NA (PORCINE) 5,000 UNITS/ML 1ML VIAL SQ SCH ×3 (06:21→21:37)
[2019-04-10] MEDS: LEVOTHYROXINE NA 112 MCG TABLET (FP) PO SCH (06:22)
[2019-04-10 06:28] LABS: BASO % 3.4 % (0-2.0); EOS % 6.2 % (0-4.5); HEMATOCRIT 21.3 % (32.4-45.2); LYMPH % 11.9 % (8-40); MCH 33.4 pg (25.7-33.7); MCHC 32.7 g/dl (32.0-36.0); MEAN CELL VOLUME 102.1 fl (80-96); MEAN PLT VOLUME 7.7 fl (7.5-11.1); MONO % 12.3 % (3.8-10.2); NEUT % 66.2 % (42.8-82.8); PLATELET COUNT 268 K/MM3 (134-434); RBC 2.09 M/mm3 (3.60-5.2); RDW 16.9 % (11.6-15.6)
[2019-04-10 06:57] LABS: CALCIUM 8.4 mg/dL (8.5-10.1); CREATININE 2.6 mg/dL (0.55-1.3)
--- NOTE | 2019-04-10 08:34 | PN ---
Progress Note, Physician Chief Complaint: sob History of Present Illness: still sob--not improving does not feel leg swelling has improved much here urinating more with lasix no cp no palpit - Current Medication List Current Medications: Active Medications Acetaminophen (Tylenol -) 650 mg PO Q6H PRN PRN Reason: PAIN Last Admin: 04/09/19 21:49 Dose: 650 mg Aspirin (Asa -) 81 mg PO DAILY [facility] Last Admin: 04/09/19 09:12 Dose: 81 mg Carvedilol (Coreg -) 25 mg PO BID [facility] Last Admin: 04/09/19 21:36 Dose: 25 mg Famotidine (Pepcid -) 20 mg PO DAILY [facility] Furosemide (Lasix Injection -) 80 mg IVPUSH DAILY [facility] Last Admin: 04/09/19 09:12 Dose: Not Given Heparin Sodium (Porcine) (Heparin -) 5,000 unit SQ TID [facility] Last Admin: 04/10/19 06:21 Dose: 5,000 unit Azithromycin 250 mg/ Dextrose 250 mls @ 250 mls/hr IVPB DAILY [facility] Piperacillin Sod/Tazobactam (Sod 2.25 gm/ Dextrose) 50 mls @ 100 mls/hr IVPB Q8H-IV [facility]; Protocol Insulin Aspart (Novolog Vial Sliding Scale -) 1 vial SQ ACHS [facility]; Protocol Last Admin: 04/10/19 06:21 Dose: 2 units Letrozole (Femara -) 2.5 mg PO DAILY [facility] Last Admin: 04/09/19 12:39 Dose: 2.5 mg Levothyroxine Sodium (Synthroid -) 112 mcg PO DAILY@0700 [facility] Last Admin: 04/10/19 06:22 Dose: 112 mcg Multivitamins/Minerals/Vitamin C (Tab-A-Vit -) 1 tab PO DAILY [facility] Last Admin: 04/09/19 09:12 Dose: 1 tab - Objective Vital Signs: Vital Signs Temperature 98.1 F 04/10/19 06:00 Pulse Rate 75 04/10/19 06:00 Respiratory Rate 18 04/10/19 06:00 Blood Pressure 155/68 04/10/19 06:00 O2 Sat by Pulse Oximetry (%) 96 04/09/19 22:00 Constitutional: Yes: Well Nourished, No Distress, Calm Cardiovascular: Yes: Regular Rate and Rhythm, JVD, S1, S2. No: Gallop, Murmur Respiratory: Yes: Regular, Rales (minimal R base), Wheezes (bases). No: Accessory Muscle Use Extremities: No: Cold Edema: No (chronic skin changes) Neurological: Yes: Alert, Oriented Psychiatric: No: Agitated Labs: CBC, BMP 04/10/19 06:00 04/10/19 06:00 INR, PTT INR 1.01 (0.83-1.09) 04/08/19 22:30 Assessment/Plan EKG: sinus,nl intervals, no ischemic changes CXR: + congestive changes echo 03/2019 nl LV function, mild MR, mild TR, PASP at least 49 mmHg tele: NSR acute diastolic heart failure exacerbation - recent echo nl LV function, mild pulm HTN - receiving iv lasix 80 QD, with incr UOP subjectively. no wts (re-ordered). sob not improving. renal fxn improving. rpt lasix 80 iv today--consider incr to bid tomorrow. lower ext cellulitis - manage per ID, primary HTN - bp mildly elevated - cont coreg, observe trend MAURICE on CKD - recent creat 2.2-2.4 - worse here initially--improving with diuresis. likely cardiorenal syndrome - renal following
[2019-04-10] MEDS ORDERED: AZITHROMYCIN IVPB 250 MG in DEXTROSE 5%-WATER - 250 ML IVPB SCH (10:00)
[2019-04-10] MEDS: ASPIRIN 81 MG CHEWABLE TABLETS PO SCH (10:56)
[2019-04-10] MEDS: LETROZOLE 2.5 MG TABLET (FP) PO SCH (10:56)
[2019-04-10] MEDS: MULTIVITAMINS (DAILY MVI) TABLET (FP) PO SCH (10:56)
[2019-04-10] MEDS: FAMOTIDINE 20 MG TABLET PO SCH (10:57)
[2019-04-10] MEDS: FUROSEMIDE 40 MG/4 ML INJECTABLE VIAL IVPUSH SCH (10:57)
[2019-04-10] MEDS: CARVEDILOL 25 MG TABLET (FP) PO SCH ×2 (10:57→21:37)
[2019-04-10] MEDS ORDERED: hydrALAZINE HCL 10 MG TABLET PO SCH (11:15)
[2019-04-10 11:17] LABS: MACROCYTOSIS 1+
[2019-04-10 11:18] LABS: PLATELET ESTIMATE ADEQUATE
--- NOTE | 2019-04-10 11:39 | PN ---
Progress Note (short form) - Note Progress Note: Renal follow up for MAURICE/CKD Seen and examined at the bedside awake and alert denies any shortness of breath no chest pain making urine leg swelling improving Vital Signs Temperature 97.4 F L 04/10/19 10:00 Pulse Rate 85 04/10/19 10:00 Respiratory Rate 18 04/10/19 10:00 Blood Pressure 185/77 H 04/10/19 10:00 O2 Sat by Pulse Oximetry (%) 96 04/09/19 22:00 Intake & Output 04/07/19 04/08/19 04/09/19 04/10/19 23:59 23:59 23:59 23:59 Intake Total 410 250 Output Total 250 Balance 160 250 Weight 113.398 kg 87.203 kg NAD awake and alert RRR Dec BS slightly edmea in LE CBC, BMP 04/10/19 06:00 04/10/19 06:00 Current Medications Acetaminophen (Tylenol -) 650 mg PO Q6H PRN PRN Reason: PAIN Last Admin: 04/09/19 21:49 Dose: 650 mg Aspirin (Asa -) 81 mg PO DAILY [facility] Last Admin: 04/10/19 10:56 Dose: 81 mg Carvedilol (Coreg -) 25 mg PO BID [facility] Last Admin: 04/10/19 10:57 Dose: 25 mg Famotidine (Pepcid -) 20 mg PO DAILY [facility] Last Admin: 04/10/19 10:57 Dose: 20 mg Furosemide (Lasix Injection -) 80 mg IVPUSH DAILY [facility] Last Admin: 04/10/19 10:57 Dose: 80 mg Heparin Sodium (Porcine) (Heparin -) 5,000 unit SQ TID [facility] Last Admin: 04/10/19 06:21 Dose: 5,000 unit Hydralazine HCl (Apresoline -) 10 mg PO BID [facility] Azithromycin 250 mg/ Dextrose 250 mls @ 250 mls/hr IVPB DAILY [facility] Piperacillin Sod/Tazobactam (Sod 2.25 gm/ Dextrose) 50 mls @ 100 mls/hr IVPB Q8H-IV [facility]; Protocol Insulin Aspart (Novolog Vial Sliding Scale -) 1 vial SQ ACHS [facility]; Protocol Last Admin: 04/10/19 06:21 Dose: 2 units Letrozole (Femara -) 2.5 mg PO DAILY [facility] Last Admin: 04/10/19 10:56 Dose: 2.5 mg Levothyroxine Sodium (Synthroid -) 112 mcg PO DAILY@0700 [facility] Last Admin: 04/10/19 06:22 Dose: 112 mcg Multivitamins/Minerals/Vitamin C (Tab-A-Vit -) 1 tab PO DAILY [facility] Last Admin: 04/10/19 10:56 Dose: 1 tab Impression 1. proteinuria 2. hypothyroid 3. HTN 4. DM 5. fluid overload 6. breast cancer 7. MAURICE 8. 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
[2019-04-10] MEDS: ACETAMINOPHEN 325 MG TABLET (FP) PO PRN (12:07)
--- NOTE | 2019-04-10 12:16 | CON.ID ---
Consult - History of Present Illness History of Present Illness: 89 y.o. female with PMH of DM, CKD, HTN, HLD, anemia, Lt breast CA s/p lumpectomy/RT, hypothyroidism, CVA, GBS, remote history of meningitis presents with complaints of worsening SOB and b/l LE edema that began several days [employer]. She has recently hospitalized on 03/27/19 with LE cellulitis and treated with Unasyn with some clinical improvement and discharged to rehab on Doxycycline. Pt then returned with SOB/hypoxia with tachypnea. Pt denies SOB and has occasional dry cough but without fever/chills. Her LE erythema is present but improving but she developed increased swelling in her legs b/l. Of note patient had elevated wbc 22.3K, and worsening renal function and anemia. CT consistent with acute diastolic HF without an acute infiltrate. She has been started on Furosemide and empirically on IV antibiotics with improvement in leukocytosis. Currently she remains afebrile but still c/o SOB. She has had no other specific complaints. - History Source History Provided By: Patient - Past Medical History [employer]IATE: Yes: CVA, Peripheral Neuropathy, Other (guillain barre syndrome, hx bacterial meningitis 1953) Cardio/Vascular: Yes: HTN Gastrointestinal: Yes: GERD Renal/: Yes: Renal Failure ...: No Heme/Onc: Yes: Anemia Endocrine: Yes: Diabetes Mellitus - Alcohol/Substance Use Hx Alcohol Use: No - Smoking History Smoking history: Never smoked Have you smoked in the past 12 months: No Aproximately how many cigarettes per day: 0 - Social History History of Recent Travel: No Home Medications - Allergies Allergies/Adverse Reactions: Allergies Allergy/AdvReac Type Severity Reaction Status Date / Time NSAIDS (Non-Steroidal Allergy Severe Difficulty Verified 04/08/19 22:55 Anti-Inflamma Breathing ibuprofen Allergy Intermediate Rash Verified 04/08/19 22:55 meloxicam [From Mobic] Allergy Intermediate Rash Verified 04/08/19 22:55 rosiglitazone maleate Allergy Verified 04/08/19 22:55 [From Avandia] albuterol AdvReac Intermediate Elevated Verified 04/08/19 22:55 Blood Pressure epinephrine AdvReac Intermediate Elevated Verified 04/08/19 22:55 Blood Pressure oxycodone HCl [From Percodan] AdvReac Intermediate Elevated Verified 04/08/19 22 :55 Blood Pressure oxycodone terephthalate AdvReac Intermediate Elevated Verified 04/08/19 22:55 [From Percodan] Blood Pressure flu shot AdvReac Severe [place] Uncoded 04/08/19 22:55 BARRE SYNDROME - Home Medications Home Medications: Ambulatory Orders Multivitamins [Multivit ([facility] Formulary)] 1 tab PO DAILY 06/10/14 Aspirin [ASA -] 81 mg PO DAILY #0 06/14/14 Amlodipine Besylate 5 mg PO DAILY 06/23/18 Calcium Carbonate/Vitamin D3 [Calcium 500-Vit D3 400 Tablet] 1 each PO DAILY Carvedilol [Coreg -] 25 mg PO BID 06/23/18 Cholecalciferol (Vitamin D3) [Vitamin D -] 400 unit PO DAILY 06/23/18 Famotidine [Pepcid] 40 mg PO DAILY 06/24/18 Letrozole 2.5 mg PO DAILY 06/24/18 Losartan Potassium 100 mg PO DAILY 06/24/18 Potassium Chloride [Klor-Con M20] 20 meq PO DAILY 06/24/18 Tramadol HCl 50 mg PO TID PRN 06/24/18 Insulin Glargine,Hum.rec.anlog [Lantus Solostar PEN -] 25 units SQ DAILY Pregabalin [Lyrica] 25 mg PO BID 03/26/19 Doxycycline Hyclate 100 mg PO BID #14 tablet 04/06/19 Furosemide [Lasix -] 40 mg PO DAILY #30 tablet 04/06/19 Acetaminophen [Tylenol] 325 mg PO Q6H 04/09/19 Review of Systems - Review of Systems Constitutional: reports: Weakness. denies: No Symptoms, Chills, Diaphoresis, Fever, Lethargy, Loss of Appetite, Malaise, Night Sweats, Unintentional Wgt. Loss, Other Eyes: reports: No Symptoms. denies: Blind Spots, Blurred Vision, Double Vision , Eye Pain, Floaters, Photophobia, Recent Change in Vision, Other HENT: reports: No Symptoms. denies: Difficult Swallowing, Ear Discharge, Ear Pain, Epistaxis, Gingival Bleeding, Hearing Loss, Mouth Swelling, Nasal Congestion, Ocular Prosthesis, Throat Pain, Toothache, Ringing in Ears, Other Neck: reports: No Symptoms. denies: Decreased ROM, Lumps, Pain on Movement, Stiffness, Swollen Glands, Tenderness, Other Cardiovascular: reports: No Symptoms. denies: Chest Pain, Edema, Palpitations, Shortness of Breath, Other Respiratory: reports: SOB. denies: No Symptoms, Cough, Exercise Intolerance, Hemoptysis, Orthopnea, PND, Snoring, SOB on Exertion, Wheezing, Other Gastrointestinal: reports: No Symptoms. denies: Abdominal Pain, Bloating, Constipation, Diarrhea, Dysphagia, Indigestion, Melena, Nausea, Rectal Bleeding , Vomiting, Vomiting Blood, Other Genitourinary: reports: No Symptoms. denies: Burning, Discharge, Dysuria, Flank Pain, Frequency, Hematuria, Incontinence, Lesions, Menses, Pain, Testicular Mass, Testicular Pain, Testicular Swelling, Urgency, Vaginal Bleeding , Other Breasts: reports: No Symptoms Reported. denies: See HPI, Breast Implants, Discharge from Nipple, Lumps, Pain, Skin Changes, Other Musculoskeletal: reports: No Symptoms. denies: Back Pain, Crepitus, Decreased ROM, Extremity Pain, Joint Pain, Joint Swelling, Muscle Pain, Muscle Cramps, Muscle Weakness, Other Integumentary: reports: Erythema (b/l LE). denies: No Symptoms, Blister, Bruising, Change in Color, Eczema, Incision, Lesions, Lump, Pallor, Pruritis, Rash, Wound, Other Neurological: reports: No Symptoms. denies: Change in LOC, Change in Speech, Confusion, Dizziness, Headache, Incoordination, Numbness, Parasthesia, Pre- Existing Deficit, Seizure, Syncope, Tremors, Unsteady Gait, Weakness, Other Endocrine: reports: No Symptoms. denies: Excessive Sweating, Flushing, Increased Hunger, Increased Thirst, Intolerance to Cold, Intolerance to Heat, Unexplained Weight Gain, Unexplained Weight Loss, Other Hematology/Lymphatic: reports: No Symptoms. denies: Easily Bruised, Excessive Bleeding, Swollen Glands, Other Psychiatric: reports: No Symptoms. denies: Altered Sleep Pattern, Anxiety, Depression, Hallucinations, Panic, Paranoia, Suicidal, Other Physical Exam Vital Signs: Vital Signs Temperature 97.4 F L 04/10/19 10:00 Pulse Rate 85 04/10/19 10:00 Respiratory Rate 18 04/10/19 10:00 Blood Pressure 185/77 H 04/10/19 10:00 O2 Sat by Pulse Oximetry (%) 96 04/09/19 22:00 Constitutional: Yes: No Distress Eyes: Yes: Conjunctiva Clear, EOM Intact, PERRL HENT: Yes: Atraumatic Neck: Yes: Supple Cardiovascular: Yes: Regular Rate and Rhythm Respiratory: Yes: On Nasal O2, Rales, SOB Gastrointestinal: Yes: Normal Bowel Sounds, Soft, Abdomen, Obese Renal/: Yes: WNL Extremities: Yes: Erythema (b/l LE) Edema: Yes Edema: LLE: 1+, RLE: 1+ Peripheral Pulses WNL: Yes Integumentary: Yes: Erythema (b/l LE) Neurological: Yes: Alert, Oriented Labs: CBC, BMP 04/10/19 06:00 04/10/19 06:00 Laboratory Tests 04/08/19 04/08/19 04/08/19 22:30 22:30 22:30 WBC 22.3 H RBC 2.35 L Hgb 7.7 L Hct 24.3 L MCV 103.3 H MCH 32.6 MCHC 31.6 L RDW 17.6 H Plt Count 284 MPV 7.8 Absolute Neuts (auto) 16.6 H Neutrophils % 74.7 Neutrophils % (Manual) 59.0 Band Neutrophils % 7.0 Lymphocytes % 7.2 L D Lymphocytes % (Manual) 12.0 D Monocytes % 10.7 H Monocytes % (Manual) 4 Eosinophils % 5.4 H Eosinophils % (Manual) 8.0 H Basophils % 2.0 Basophils % (Manual) 1.0 Myelocytes % (Man) 5 H D Promyelocytes % (Man) Blast Cells % (Manual) Nucleated RBC % 0 Metamyelocytes 3 H D Hypochromia Platelet Estimate Adequate Platelet Comment Polychromasia Poikilocytosis Basophilic Stippling Anisocytosis 1+ Macrocytosis PT with INR INR PTT (Actin FS) 32.4 VBG pH POC VBG pCO2 POC VBG pO2 VBG HCO3 VBG O2 Sat (Julita) VBG Base Excess Sodium Potassium Chloride Carbon Dioxide Anion Gap BUN Creatinine Est GFR (CKD-EPI)AfAm Est GFR (CKD-EPI)NonAf POC Glucometer Random Glucose Lactic Acid Calcium Phosphorus Magnesium 2.3 Iron TIBC Iron Saturation Unsaturated IBC Total Bilirubin AST ALT Alkaline Phosphatase Creatine Kinase 65 Troponin I 0.03 B-Natriuretic Peptide 2600.8 H Total Protein Albumin Serum Folate TSH 11.90 H Urine Color Urine Appearance Urine pH Ur Specific [place] Urine Protein Urine Glucose (UA) Urine Ketones Urine Blood Urine Nitrite Urine Bilirubin Urine Urobilinogen Ur Leukocyte Esterase Urine WBC (Auto) Urine RBC (Auto) Urine Casts (Auto) U Epithel Cells (Auto) Urine Bacteria (Auto) U Random Total Protein Urine Creatinine Protein/Creatinin Ratio 04/08/19 04/08/19 04/08/19 22:30 22:30 22:30 WBC RBC Hgb Hct MCV MCH MCHC RDW Plt Count MPV Absolute Neuts (auto) Neutrophils % Neutrophils % (Manual) Band Neutrophils % Lymphocytes % Lymphocytes % (Manual) Monocytes % Monocytes % (Manual) Eosinophils % Eosinophils % (Manual) Basophils % Basophils % (Manual) Myelocytes % (Man) Promyelocytes % (Man) Blast Cells % (Manual) Nucleated RBC % Metamyelocytes Hypochromia Platelet Estimate Platelet Comment Polychromasia Poikilocytosis Basophilic Stippling Anisocytosis Macrocytosis PT with INR INR PTT (Actin FS) VBG pH POC VBG pCO2 POC VBG pO2 VBG HCO3 VBG O2 Sat (Julita) VBG Base Excess Sodium 140 Potassium 4.3 Chloride 110 H Carbon Dioxide 22 Anion Gap 8 BUN 50.5 H Creatinine 2.8 H Est GFR (CKD-EPI)AfAm 16.66 Est GFR (CKD-EPI)NonAf 14.37 POC Glucometer Random Glucose 256 H Lactic Acid 0.7 Calcium 8.8 Phosphorus Magnesium Cancelled Iron TIBC Iron Saturation Unsaturated IBC Total Bilirubin 0.4 AST 22 ALT 21 Alkaline Phosphatase 119 H Creatine Kinase Troponin I B-Natriuretic Peptide Total Protein 6.6 Albumin 2.8 L Serum Folate TSH Urine Color Urine Appearance Urine pH Ur Specific [place] Urine Protein Urine Glucose (UA) Urine Ketones Urine Blood Urine Nitrite Urine Bilirubin Urine Urobilinogen Ur Leukocyte Esterase Urine WBC (Auto) Urine RBC (Auto) Urine Casts (Auto) U Epithel Cells (Auto) Urine Bacteria (Auto) U Random Total Protein Urine Creatinine Protein/Creatinin Ratio 04/08/19 04/08/19 04/08/19 22:30 22:30 22:30 WBC RBC Hgb Hct MCV MCH MCHC RDW Plt Count MPV Absolute Neuts (auto) Neutrophils % Neutrophils % (Manual) Band Neutrophils % Lymphocytes % Lymphocytes % (Manual) Monocytes % Monocytes % (Manual) Eosinophils % Eosinophils % (Manual) Basophils % Basophils % (Manual) Myelocytes % (Man) Promyelocytes % (Man) Blast Cells % (Manual) Nucleated RBC % Metamyelocytes Hypochromia Platelet Estimate Platelet Comment Polychromasia Poikilocytosis Basophilic Stippling Anisocytosis Macrocytosis PT with INR 11.90 INR 1.01 PTT (Actin FS) VBG pH POC VBG pCO2 POC VBG pO2 VBG HCO3 VBG O2 Sat (Julita) VBG Base Excess Sodium Potassium Chloride Carbon Dioxide Anion Gap BUN Creatinine Est GFR (CKD-EPI)AfAm Est GFR (CKD-EPI)NonAf POC Glucometer Random Glucose Lactic Acid Calcium Phosphorus Magnesium Iron TIBC Iron Saturation Unsaturated IBC Total Bilirubin AST ALT Alkaline Phosphatase Creatine Kinase Troponin I B-Natriuretic Peptide Cancelled Total Protein Albumin Serum Folate TSH Cancelled Urine Color Urine Appearance Urine pH Ur Specific [place] Urine Protein Urine Glucose (UA) Urine Ketones Urine Blood Urine Nitrite Urine Bilirubin Urine Urobilinogen Ur Leukocyte Esterase Urine WBC (Auto) Urine RBC (Auto) Urine Casts (Auto) U Epithel Cells (Auto) Urine Bacteria (Auto) U Random Total Protein Urine Creatinine Protein/Creatinin Ratio 04/08/19 04/09/19 04/09/19 22:30 01:55 06:55 WBC 19.8 H RBC 2.28 L Hgb 7.7 L Hct 23.5 L MCV 102.8 H MCH 33.5 MCHC 32.6 RDW 17.6 H Plt Count [employer] MPV 7.9 Absolute Neuts (auto) 14.5 H Neutrophils % 73.0 Neutrophils % (Manual) 67.3 Band Neutrophils % 0.0 Lymphocytes % 6.3 L Lymphocytes % (Manual) 6.7 L D Monocytes % 11.0 H Monocytes % (Manual) 13 H D Eosinophils % 5.4 H Eosinophils % (Manual) 3.8 Basophils % 4.3 H Basophils % (Manual) 1.0 Myelocytes % (Man) 3 H D Promyelocytes % (Man) 0 Blast Cells % (Manual) 0 Nucleated RBC % 0 Metamyelocytes 5 H D Hypochromia 0 Platelet Estimate Normal Platelet Comment Unable to enumerate Polychromasia 0 Poikilocytosis 0 Basophilic Stippling Anisocytosis 1+ Macrocytosis 1+ PT with INR INR PTT (Actin FS) VBG pH 7.33 POC VBG pCO2 41.6 POC VBG pO2 < 49 H VBG HCO3 21.5 L VBG O2 Sat (Julita) 70.7 VBG Base Excess -3.5 L Sodium Potassium Chloride Carbon Dioxide Anion Gap BUN Creatinine Est GFR (CKD-EPI)AfAm Est GFR (CKD-EPI)NonAf POC Glucometer Random Glucose Lactic Acid Calcium Phosphorus Magnesium Iron TIBC Iron Saturation Unsaturated IBC Total Bilirubin AST ALT Alkaline Phosphatase Creatine Kinase Troponin I B-Natriuretic Peptide Total Protein Albumin Serum Folate TSH Urine Color Yellow Urine Appearance Clear Urine pH 6.5 Ur Specific [place] 1.014 Urine Protein 3+ H Urine Glucose (UA) 1+ H Urine Ketones Negative Urine Blood Negative Urine Nitrite Negative Urine Bilirubin Negative Urine Urobilinogen 0.2 Ur Leukocyte Esterase Negative Urine WBC (Auto) 0 Urine RBC (Auto) 1 Urine Casts (Auto) 0 U Epithel Cells (Auto) 0.3 Urine Bacteria (Auto) 0.7 U Random Total Protein Urine Creatinine Protein/Creatinin Ratio 04/09/19 04/09/19 04/09/19 06:55 11:55 17:04 WBC RBC Hgb Hct MCV MCH MCHC RDW Plt Count MPV Absolute Neuts (auto) Neutrophils % Neutrophils % (Manual) Band Neutrophils % Lymphocytes % Lymphocytes % (Manual) Monocytes % Monocytes % (Manual) Eosinophils % Eosinophils % (Manual) Basophils % Basophils % (Manual) Myelocytes % (Man) Promyelocytes % (Man) Blast Cells % (Manual) Nucleated RBC % Metamyelocytes Hypochromia Platelet Estimate Platelet Comment Polychromasia Poikilocytosis Basophilic Stippling Anisocytosis Macrocytosis PT with INR INR PTT (Actin FS) VBG pH POC VBG pCO2 POC VBG pO2 VBG HCO3 VBG O2 Sat (Julita) VBG Base Excess Sodium 140 Potassium 3.9 Chloride 110 H Carbon Dioxide 21 Anion Gap 9 BUN 49.1 H Creatinine 2.7 H Est GFR (CKD-EPI)AfAm 17.41 Est GFR (CKD-EPI)NonAf 15.02 POC Glucometer 219 178 Random Glucose 213 H Lactic Acid Calcium 8.7 Phosphorus 5.1 H Magnesium 2.4 Iron 33 L TIBC 276 Iron Saturation 11 L Unsaturated IBC 243 Total Bilirubin 0.7 AST 21 ALT 21 Alkaline Phosphatase 108 Creatine Kinase Troponin I B-Natriuretic Peptide Total Protein 6.6 Albumin 2.8 L Serum Folate 44 H TSH Urine Color Urine Appearance Urine pH Ur Specific [place] Urine Protein Urine Glucose (UA) Urine Ketones Urine Blood Urine Nitrite Urine Bilirubin Urine Urobilinogen Ur Leukocyte Esterase Urine WBC (Auto) Urine RBC (Auto) Urine Casts (Auto) U Epithel Cells (Auto) Urine Bacteria (Auto) U Random Total Protein Urine Creatinine Protein/Creatinin Ratio 04/09/19 04/09/19 04/10/19 21:34 22:15 06:00 WBC 16.0 H RBC 2.09 L Hgb 7.0 L Hct 21.3 L MCV 102.1 H MCH 33.4 MCHC 32.7 RDW 16.9 H Plt Count 268 MPV 7.7 Absolute Neuts (auto) 10.6 H Neutrophils % 66.2 Neutrophils % (Manual) 59.0 Band Neutrophils % 3.0 Lymphocytes % 11.9 D Lymphocytes % (Manual) 9.0 D Monocytes % 12.3 H Monocytes % (Manual) 7 Eosinophils % 6.2 H Eosinophils % (Manual) 7.0 H D Basophils % 3.4 H Basophils % (Manual) 0.0 Myelocytes % (Man) 13 H D Promyelocytes % (Man) Blast Cells % (Manual) Nucleated RBC % 0 Metamyelocytes 1 D Hypochromia Platelet Estimate Adequate Platelet Comment Polychromasia Poikilocytosis Basophilic Stippling 1+ Anisocytosis Macrocytosis 1+ PT with INR INR PTT (Actin FS) VBG pH POC VBG pCO2 POC VBG pO2 VBG HCO3 VBG O2 Sat (Julita) VBG Base Excess Sodium Potassium Chloride Carbon Dioxide Anion Gap BUN Creatinine Est GFR (CKD-EPI)AfAm Est GFR (CKD-EPI)NonAf POC Glucometer 255 Random Glucose Lactic Acid Calcium Phosphorus Magnesium Iron TIBC Iron Saturation Unsaturated IBC Total Bilirubin AST ALT Alkaline Phosphatase Creatine Kinase Troponin I B-Natriuretic Peptide Total Protein Albumin Serum Folate TSH Urine Color Yellow Urine Appearance Clear Urine pH 6.0 Ur Specific [place] 1.011 Urine Protein 3+ H Urine Glucose (UA) Trace Urine Ketones Negative Urine Blood Trace Urine Nitrite Negative Urine Bilirubin Negative Urine Urobilinogen 0.2 Ur Leukocyte Esterase Negative Urine WBC (Auto) 0 Urine RBC (Auto) 4 Urine Casts (Auto) 1 U Epithel Cells (Auto) 0.5 Urine Bacteria (Auto) 0.3 U Random Total Protein Urine Creatinine Protein/Creatinin Ratio 04/10/19 04/10/19 04/10/19 06:00 06:19 06:30 WBC RBC Hgb Hct MCV MCH MCHC RDW Plt Count MPV Absolute Neuts (auto) Neutrophils % Neutrophils % (Manual) Band Neutrophils % Lymphocytes % Lymphocytes % (Manual) Monocytes % Monocytes % (Manual) Eosinophils % Eosinophils % (Manual) Basophils % Basophils % (Manual) Myelocytes % (Man) Promyelocytes % (Man) Blast Cells % (Manual) Nucleated RBC % Metamyelocytes Hypochromia Platelet Estimate Platelet Comment Polychromasia Poikilocytosis Basophilic Stippling Anisocytosis Macrocytosis PT with INR INR PTT (Actin FS) VBG pH POC VBG pCO2 POC VBG pO2 VBG HCO3 VBG O2 Sat (Julita) VBG Base Excess Sodium 138 Potassium 4.0 Chloride 107 Carbon Dioxide 24 Anion Gap 8 BUN 45.0 H Creatinine 2.6 H Est GFR (CKD-EPI)AfAm 18.22 Est GFR (CKD-EPI)NonAf 15.72 POC Glucometer 198 Random Glucose 180 H Lactic Acid Calcium 8.4 L Phosphorus Magnesium Iron TIBC Iron Saturation Unsaturated IBC Total Bilirubin AST ALT Alkaline Phosphatase Creatine Kinase Troponin I B-Natriuretic Peptide Total Protein Albumin Serum Folate TSH Urine Color Urine Appearance Urine pH Ur Specific [place] Urine Protein Urine Glucose (UA) Urine Ketones Urine Blood Urine Nitrite Urine Bilirubin Urine Urobilinogen Ur Leukocyte Esterase Urine WBC (Auto) Urine RBC (Auto) Urine Casts (Auto) U Epithel Cells (Auto) Urine Bacteria (Auto) U Random Total Protein 539.2 H Urine Creatinine 49.0 Protein/Creatinin Ratio 11.0 04/10/19 12:03 WBC RBC Hgb Hct MCV MCH MCHC RDW Plt Count MPV Absolute Neuts (auto) Neutrophils % Neutrophils % (Manual) Band Neutrophils % Lymphocytes % Lymphocytes % (Manual) Monocytes % Monocytes % (Manual) Eosinophils % Eosinophils % (Manual) Basophils % Basophils % (Manual) Myelocytes % (Man) Promyelocytes % (Man) Blast Cells % (Manual) Nucleated RBC % Metamyelocytes Hypochromia Platelet Estimate Platelet Comment Polychromasia Poikilocytosis Basophilic Stippling Anisocytosis Macrocytosis PT with INR INR PTT (Actin FS) VBG pH POC VBG pCO2 POC VBG pO2 VBG HCO3 VBG O2 Sat (Julita) VBG Base Excess Sodium Potassium Chloride Carbon Dioxide Anion Gap BUN Creatinine Est GFR (CKD-EPI)AfAm Est GFR (CKD-EPI)NonAf POC Glucometer 236 Random Glucose Lactic Acid Calcium Phosphorus Magnesium Iron TIBC Iron Saturation Unsaturated IBC Total Bilirubin AST ALT Alkaline Phosphatase Creatine Kinase Troponin I B-Natriuretic Peptide Total Protein Albumin Serum Folate TSH Urine Color Urine Appearance Urine pH Ur Specific [place] Urine Protein Urine Glucose (UA) Urine Ketones Urine Blood Urine Nitrite Urine Bilirubin Urine Urobilinogen Ur Leukocyte Esterase Urine WBC (Auto) Urine RBC (Auto) Urine Casts (Auto) U Epithel Cells (Auto) Urine Bacteria (Auto) U Random Total Protein Urine Creatinine Protein/Creatinin Ratio Blood cultures neg 24h, Urine culture neg Imaging - Results Chest X-ray: Report Reviewed Cat Scan: Report Reviewed Ultrasound: Report Reviewed Problem List - Problems (1) Acute diastolic (congestive) heart failure Code(s): I50.31 - ACUTE DIASTOLIC (CONGESTIVE) HEART FAILURE (2) Acute kidney injury superimposed on CKD Code(s): N17.9 - ACUTE KIDNEY FAILURE, UNSPECIFIED; N18.9 - CHRONIC KIDNEY DISEASE, UNSPECIFIED (3) Anemia Code(s): D64.9 - ANEMIA, UNSPECIFIED Qualifiers: Anemia type: unspecified type Qualified Code(s): D64.9 - Anemia, unspecified (4) Bilateral leg edema Code(s): R60.0 - LOCALIZED EDEMA (5) Hypothyroid Code(s): E03.9 - HYPOTHYROIDISM, UNSPECIFIED Qualifiers: Hypothyroidism type: unspecified Qualified Code(s): E03.9 - Hypothyroidism , unspecified (6) Shortness of breath Code(s): R06.02 - SHORTNESS OF BREATH (7) Breast cancer, left Code(s): C50.912 - MALIGNANT NEOPLASM OF UNSPECIFIED SITE OF LEFT FEMALE BREAST (8) Diabetes Code(s): E11.9 - TYPE 2 DIABETES MELLITUS WITHOUT COMPLICATIONS Qualifiers: Diabetes mellitus type: type 2 (9) GERD (gastroesophageal reflux disease) Code(s): K21.9 - GASTRO-ESOPHAGEAL REFLUX DISEASE WITHOUT ESOPHAGITIS (10) HTN (hypertension) Code(s): I10 - ESSENTIAL (PRIMARY) HYPERTENSION (11) History of CVA with residual deficit Code(s): I69.30 - UNSPECIFIED SEQUELAE OF CEREBRAL INFARCTION (12) Lower extremity cellulitis Code(s): L03.119 - CELLULITIS OF UNSPECIFIED PART OF LIMB Assessment/Plan 89 y.o. female with PMH of DM, CKD, HTN, HLD, anemia, Lt breast CA s/p lumpectomy/RT, hypothyroidism, CVA, GBS, remote history of meningitis presents with complaints of worsening SOB and b/l LE edema that began several days [employer] after recent hospital discharge. Treated for b/l LE cellulitis with some improvement. Noted to have leukocytosis, LE erythema, worsening renal function and anemia b/l LE cellulitis Leukocytosis SOB b/l LE edema Acute diastolic HF Anemia Acute on chronic RF DM HTN Hx of Lt Breast CA Hypothyroidism Hx of CVAs -- all labs/imaging study results reviewed -- leukocytosis improving, remains afebrile -- still with c/o SOB and b/l LE erythema/edema -- d/c Azithromycin and Zosyn. Will switch back to Unasyn and monitor for improvement/wbc trend. -- monitor cbc, bmp -- Pulmonary, Renal following -- continue monitor vitals Will follow Thank you
--- NOTE | 2019-04-10 12:58 | PN ---
Progress Note (short form) - Note Progress Note: Resting in NAD. Still with SOB. No CP. Intake & Output 04/07/19 04/08/19 04/09/19 04/10/19 23:59 23:59 23:59 23:59 Intake Total 410 250 Output Total 250 Balance 160 250 Weight 250 lb 192 lb 4 oz Last Vital Signs Temp Pulse Resp BP Pulse Ox 97.4 F L 85 18 185/77 H 96 04/10/19 10:00 04/10/19 10:00 04/10/19 10:00 04/10/19 10:00 04/09/19 22:00 Active Medications Acetaminophen (Tylenol -) 650 mg PO Q6H PRN PRN Reason: PAIN Last Admin: 04/10/19 12:07 Dose: 650 mg Aspirin (Asa -) 81 mg PO DAILY [facility] Last Admin: 04/10/19 10:56 Dose: 81 mg Carvedilol (Coreg -) 25 mg PO BID [facility] Last Admin: 04/10/19 10:57 Dose: 25 mg Famotidine (Pepcid -) 20 mg PO DAILY [facility] Last Admin: 04/10/19 10:57 Dose: 20 mg Furosemide (Lasix Injection -) 80 mg IVPUSH DAILY [facility] Last Admin: 04/10/19 10:57 Dose: 80 mg Heparin Sodium (Porcine) (Heparin -) 5,000 unit SQ TID [facility] Last Admin: 04/10/19 06:21 Dose: 5,000 unit Hydralazine HCl (Apresoline -) 10 mg PO BID [facility] Last Admin: 04/10/19 12:02 Dose: 10 mg Ampicillin Sodium/Sulbactam (Sodium 1.5 gm/ Sodium Chloride) 100 mls @ 200 mls/ hr IVPB BID [facility] Insulin Aspart (Novolog Vial Sliding Scale -) 1 vial SQ ACHS [facility]; Protocol Last Admin: 04/10/19 12:05 Dose: 4 units Letrozole (Femara -) 2.5 mg PO DAILY [facility] Last Admin: 04/10/19 10:56 Dose: 2.5 mg Levothyroxine Sodium (Synthroid -) 112 mcg PO DAILY@0700 [facility] Last Admin: 04/10/19 06:22 Dose: 112 mcg Multivitamins/Minerals/Vitamin C (Tab-A-Vit -) 1 tab PO DAILY [facility] Last Admin: 04/10/19 10:56 Dose: 1 tab Constitutional: Yes: NAD Cardiovascular: Yes: Regular Rate and Rhythm, JVD, S1, S2. No: Gallop, Murmur Respiratory: Yes: Scattered bilateral rhonchi and wheeze. No: Accessory Muscle Use Extremities: No: Cold Edema: Yes (chronic skin changes) Neurological: Yes: Alert, Oriented Psychiatric: No: Agitated Labs: Laboratory Results - last 24 hr 04/09/19 04/09/19 04/09/19 17:04 21:34 22:15 WBC RBC Hgb Hct MCV MCH MCHC RDW Plt Count MPV Absolute Neuts (auto) Neutrophils % Neutrophils % (Manual) Band Neutrophils % Lymphocytes % Lymphocytes % (Manual) Monocytes % Monocytes % (Manual) Eosinophils % Eosinophils % (Manual) Basophils % Basophils % (Manual) Myelocytes % (Man) Nucleated RBC % Metamyelocytes Platelet Estimate Basophilic Stippling Macrocytosis Sodium Potassium Chloride Carbon Dioxide Anion Gap BUN Creatinine Est GFR (CKD-EPI)AfAm Est GFR (CKD-EPI)NonAf POC Glucometer 178 255 Random Glucose Calcium Urine Color Yellow Urine Appearance Clear Urine pH 6.0 Ur Specific [place] 1.011 Urine Protein 3+ H Urine Glucose (UA) Trace Urine Ketones Negative Urine Blood Trace Urine Nitrite Negative Urine Bilirubin Negative Urine Urobilinogen 0.2 Ur Leukocyte Esterase Negative Urine WBC (Auto) 0 Urine RBC (Auto) 4 Urine Casts (Auto) 1 U Epithel Cells (Auto) 0.5 Urine Bacteria (Auto) 0.3 U Random Total Protein Urine Creatinine Protein/Creatinin Ratio 04/10/19 04/10/19 04/10/19 06:00 06:00 06:19 WBC 16.0 H RBC 2.09 L Hgb 7.0 L Hct 21.3 L MCV 102.1 H MCH 33.4 MCHC 32.7 RDW 16.9 H Plt Count 268 MPV 7.7 Absolute Neuts (auto) 10.6 H Neutrophils % 66.2 Neutrophils % (Manual) 59.0 Band Neutrophils % 3.0 Lymphocytes % 11.9 D Lymphocytes % (Manual) 9.0 D Monocytes % 12.3 H Monocytes % (Manual) 7 Eosinophils % 6.2 H Eosinophils % (Manual) 7.0 H D Basophils % 3.4 H Basophils % (Manual) 0.0 Myelocytes % (Man) 13 H D Nucleated RBC % 0 Metamyelocytes 1 D Platelet Estimate Adequate Basophilic Stippling 1+ Macrocytosis 1+ Sodium 138 Potassium 4.0 Chloride 107 Carbon Dioxide 24 Anion Gap 8 BUN 45.0 H Creatinine 2.6 H Est GFR (CKD-EPI)AfAm 18.22 Est GFR (CKD-EPI)NonAf 15.72 POC Glucometer 198 Random Glucose 180 H Calcium 8.4 L Urine Color Urine Appearance Urine pH Ur Specific [place] Urine Protein Urine Glucose (UA) Urine Ketones Urine Blood Urine Nitrite Urine Bilirubin Urine Urobilinogen Ur Leukocyte Esterase Urine WBC (Auto) Urine RBC (Auto) Urine Casts (Auto) U Epithel Cells (Auto) Urine Bacteria (Auto) U Random Total Protein Urine Creatinine Protein/Creatinin Ratio 04/10/19 04/10/19 06:30 12:03 WBC RBC Hgb Hct MCV MCH MCHC RDW Plt Count MPV Absolute Neuts (auto) Neutrophils % Neutrophils % (Manual) Band Neutrophils % Lymphocytes % Lymphocytes % (Manual) Monocytes % Monocytes % (Manual) Eosinophils % Eosinophils % (Manual) Basophils % Basophils % (Manual) Myelocytes % (Man) Nucleated RBC % Metamyelocytes Platelet Estimate Basophilic Stippling Macrocytosis Sodium Potassium Chloride Carbon Dioxide Anion Gap BUN Creatinine Est GFR (CKD-EPI)AfAm Est GFR (CKD-EPI)NonAf POC Glucometer 236 Random Glucose Calcium Urine Color Urine Appearance Urine pH Ur Specific [place] Urine Protein Urine Glucose (UA) Urine Ketones Urine Blood Urine Nitrite Urine Bilirubin Urine Urobilinogen Ur Leukocyte Esterase Urine WBC (Auto) Urine RBC (Auto) Urine Casts (Auto) U Epithel Cells (Auto) Urine Bacteria (Auto) U Random Total Protein 539.2 H Urine Creatinine 49.0 Protein/Creatinin Ratio 11.0 Problem List - Problems (1) Acute kidney injury superimposed on CKD Code(s): N17.9 - ACUTE KIDNEY FAILURE, UNSPECIFIED; N18.9 - CHRONIC KIDNEY DISEASE, UNSPECIFIED (2) Anemia Code(s): D64.9 - ANEMIA, UNSPECIFIED Qualifiers: Anemia type: unspecified type Qualified Code(s): D64.9 - Anemia, unspecified (3) Bilateral leg edema Code(s): R60.0 - LOCALIZED EDEMA (4) Hypothyroid Code(s): E03.9 - HYPOTHYROIDISM, UNSPECIFIED Qualifiers: Hypothyroidism type: unspecified Qualified Code(s): E03.9 - Hypothyroidism , unspecified (5) Pulmonary vascular congestion Code(s): R09.89 - OTH SYMPTOMS AND SIGNS INVOLVING THE CIRC AND RESP SYSTEMS (6) Shortness of breath Code(s): R06.02 - SHORTNESS OF BREATH (7) Breast cancer Code(s): C50.919 - MALIGNANT NEOPLASM OF UNSP SITE OF UNSPECIFIED FEMALE BREAST (8) Breast cancer, left Code(s): C50.912 - MALIGNANT NEOPLASM OF UNSPECIFIED SITE OF LEFT FEMALE BREAST (9) Diabetes Code(s): E11.9 - TYPE 2 DIABETES MELLITUS WITHOUT COMPLICATIONS Qualifiers: Diabetes mellitus type: type 2 (10) History of CVA with residual deficit Code(s): I69.30 - UNSPECIFIED SEQUELAE OF CEREBRAL INFARCTION (11) Lower extremity cellulitis Code(s): L03.119 - CELLULITIS OF UNSPECIFIED PART OF LIMB (12) Acute diastolic (congestive) heart failure Code(s): I50.31 - ACUTE DIASTOLIC (CONGESTIVE) HEART FAILURE IMP DYSPNEA DUE TO ACUTE DIASTOLIC HF LOWER EXT EDEMA ACUTE ON CHRONIC KIDNEY DISEASE H/O LEFT BREAST CA S/P LUMPECTOMY,RT 2014 ANEMIA 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
[2019-04-10] MEDS ORDERED: AMPICILLIN NA/SULBACTAM NA 1.5 GM in SODIUM CHLORIDE 100 ML IVPB SCH ×2 (13:00→22:00)
[2019-04-10] MEDS: PREGABALIN 25 MG CAPSULE PO SCH ×2 (15:15→21:37)
[2019-04-10] MEDS: hydrALAZINE HCL 10 MG TABLET PO SCH ×2 (17:59→21:37)
--- NOTE | 2019-04-10 18:12 | PN ---
Physical Exam: 89 year old woman with a PMH of HTN, HLD, Left breast cancer, Hypothyroidism, GERD, NIDDM and Multiple CVAs recently admitted at [facility] for bilateral LE cellulitis (discharged 04/06/19) presenting with difficulty breathing for several days. Patient was found to have bilateral lower lobe PNA, CHFE and exacerbation of LE cellulitis, Patient started on Vanc/Zosyn/Azithromycin. Breathing stable, needs more diuresis and pulmonary toileting. GA: comfortable, AAox3, elderly, frail, speaks in full sentences HEENT: No Jaundice, eye redness or discharge, PERRLA, EOMI. Normocephalic, atraumatic. Neck: Supple, nontender. No palpable adenopathy or thyromegaly. No JVD Chest: Good effort. Clear to auscultation and percussion. Heart: Regular. No S3, rub or murmur Abdomen: Not distended, soft, nontender and no HSM. No rebound or guarding. Normal bowel sounds. Ext: Peripheral pulses intact. Leg edema with mild erythema. Skin: Warm and dry. No petechiae, rash or ecchymosis. Neuro: Alert. Oriented x3. CN 2-12 grossly intact. Sensation grossly intact in all four extremities and DTR are symmetric. Psych: Appropriate mood and affect. Good insight. Vital Signs (72 hours) 04/08/19 04/09/19 04/09/19 22:00 03:15 04:00 Temperature 97.7 F 97.7 F Pulse Rate 84 84 Pulse Rate [ 79 Left Radial] Respiratory 24 H 25 H 20 Rate Blood Pressure 161/60 161/74 Blood Pressure 152/55 L [Right Arm] O2 Sat by Pulse 96 96 95 Oximetry (%) 04/09/19 04/09/19 04/09/19 08:29 09:00 09:49 Temperature 97.7 F Pulse Rate 82 78 Pulse Rate [ Left Radial] Respiratory 22 H 20 Rate Blood Pressure 150/86 145/71 Blood Pressure [Right Arm] O2 Sat by Pulse 97 Oximetry (%) 04/09/19 04/09/19 04/09/19 10:00 14:20 18:00 Temperature 98.5 F 98.6 F Pulse Rate 109 H 80 Pulse Rate [ Left Radial] Respiratory 20 20 Rate Blood Pressure 114/73 154/90 Blood Pressure [Right Arm] O2 Sat by Pulse 97 Oximetry (%) 04/09/19 04/09/19 04/10/19 21:00 22:00 02:00 Temperature 97.6 F 98.2 F Pulse Rate 84 74 Pulse Rate [ Left Radial] Respiratory 20 18 Rate Blood Pressure 158/72 143/59 L Blood Pressure [Right Arm] O2 Sat by Pulse 96 96 Oximetry (%) 04/10/19 04/10/19 04/10/19 06:00 09:00 10:00 Temperature 98.1 F 97.4 F L Pulse Rate 75 85 Pulse Rate [ Left Radial] Respiratory 18 18 Rate Blood Pressure 155/68 185/77 H Blood Pressure [Right Arm] O2 Sat by Pulse 98 98 Oximetry (%) 04/10/19 04/10/19 14:00 18:00 Temperature 98.4 F 98 F Pulse Rate 82 76 Pulse Rate [ Left Radial] Respiratory 18 18 Rate Blood Pressure 183/74 H 151/77 Blood Pressure [Right Arm] O2 Sat by Pulse Oximetry (%) Laboratory Results - last 24 hr 04/09/19 04/09/19 04/10/19 21:34 22:15 06:00 WBC 16.0 H RBC 2.09 L Hgb 7.0 L Hct 21.3 L MCV 102.1 H MCH 33.4 MCHC 32.7 RDW 16.9 H Plt Count 268 MPV 7.7 Absolute Neuts (auto) 10.6 H Neutrophils % 66.2 Neutrophils % (Manual) 59.0 Band Neutrophils % 3.0 Lymphocytes % 11.9 D Lymphocytes % (Manual) 9.0 D Monocytes % 12.3 H Monocytes % (Manual) 7 Eosinophils % 6.2 H Eosinophils % (Manual) 7.0 H D Basophils % 3.4 H Basophils % (Manual) 0.0 Myelocytes % (Man) 13 H D Nucleated RBC % 0 Metamyelocytes 1 D Platelet Estimate Adequate Basophilic Stippling 1+ Macrocytosis 1+ Sodium Potassium Chloride Carbon Dioxide Anion Gap BUN Creatinine Est GFR (CKD-EPI)AfAm Est GFR (CKD-EPI)NonAf POC Glucometer 255 Random Glucose Calcium Urine Color Yellow Urine Appearance Clear Urine pH 6.0 Ur Specific [place] 1.011 Urine Protein 3+ H Urine Glucose (UA) Trace Urine Ketones Negative Urine Blood Trace Urine Nitrite Negative Urine Bilirubin Negative Urine Urobilinogen 0.2 Ur Leukocyte Esterase Negative Urine WBC (Auto) 0 Urine RBC (Auto) 4 Urine Casts (Auto) 1 U Epithel Cells (Auto) 0.5 Urine Bacteria (Auto) 0.3 U Random Total Protein Urine Creatinine Protein/Creatinin Ratio 04/10/19 04/10/19 04/10/19 06:00 06:19 06:30 WBC RBC Hgb Hct MCV MCH MCHC RDW Plt Count MPV Absolute Neuts (auto) Neutrophils % Neutrophils % (Manual) Band Neutrophils % Lymphocytes % Lymphocytes % (Manual) Monocytes % Monocytes % (Manual) Eosinophils % Eosinophils % (Manual) Basophils % Basophils % (Manual) Myelocytes % (Man) Nucleated RBC % Metamyelocytes Platelet Estimate Basophilic Stippling Macrocytosis Sodium 138 Potassium 4.0 Chloride 107 Carbon Dioxide 24 Anion Gap 8 BUN 45.0 H Creatinine 2.6 H Est GFR (CKD-EPI)AfAm 18.22 Est GFR (CKD-EPI)NonAf 15.72 POC Glucometer 198 Random Glucose 180 H Calcium 8.4 L Urine Color Urine Appearance Urine pH Ur Specific [place] Urine Protein Urine Glucose (UA) Urine Ketones Urine Blood Urine Nitrite Urine Bilirubin Urine Urobilinogen Ur Leukocyte Esterase Urine WBC (Auto) Urine RBC (Auto) Urine Casts (Auto) U Epithel Cells (Auto) Urine Bacteria (Auto) U Random Total Protein 539.2 H Urine Creatinine 49.0 Protein/Creatinin Ratio 11.0 04/10/19 04/10/19 12:03 17:57 WBC RBC Hgb Hct MCV MCH MCHC RDW Plt Count MPV Absolute Neuts (auto) Neutrophils % Neutrophils % (Manual) Band Neutrophils % Lymphocytes % Lymphocytes % (Manual) Monocytes % Monocytes % (Manual) Eosinophils % Eosinophils % (Manual) Basophils % Basophils % (Manual) Myelocytes % (Man) Nucleated RBC % Metamyelocytes Platelet Estimate Basophilic Stippling Macrocytosis Sodium Potassium Chloride Carbon Dioxide Anion Gap BUN Creatinine Est GFR (CKD-EPI)AfAm Est GFR (CKD-EPI)NonAf POC Glucometer 236 247 Random Glucose Calcium Urine Color Urine Appearance Urine pH Ur Specific [place] Urine Protein Urine Glucose (UA) Urine Ketones Urine Blood Urine Nitrite Urine Bilirubin Urine Urobilinogen Ur Leukocyte Esterase Urine WBC (Auto) Urine RBC (Auto) Urine Casts (Auto) U Epithel Cells (Auto) Urine Bacteria (Auto) U Random Total Protein Urine Creatinine Protein/Creatinin Ratio Current Medications Generic Name Dose Route Start Last Admin Trade Name Moiseq PRN Reason Stop Dose Admin Acetaminophen 650 mg 04/09/19 14:53 04/10/19 12:07 Tylenol - PO 650 mg Q6H PRN Administration PAIN Aspirin 81 mg 04/09/19 10:00 04/10/19 10:56 Asa - PO 81 mg DAILY [facility] Administration Carvedilol 25 mg 04/09/19 07:15 04/10/19 10:57 Coreg - PO 25 mg BID [facility] Administration Famotidine 20 mg 04/10/19 10:00 04/10/19 10:57 Pepcid - PO 20 mg DAILY [facility] Administration Furosemide 80 mg 04/09/19 10:00 04/10/19 10:57 Lasix Injection - IVPUSH 80 mg DAILY [facility] Administration Heparin Sodium (Porcine) 5,000 unit 04/09/19 06:00 04/10/19 14:16 Heparin - SQ 5,000 unit TID [facility] Administration Hydralazine HCl 20 mg 04/10/19 17:15 04/10/19 17:59 Apresoline - PO 20 mg TID [facility] Administration Ampicillin Sodium/Sulbactam 100 mls @ 200 mls/hr 04/10/19 22:00 Sodium 1.5 gm/ Sodium Chloride IVPB BID [facility] Insulin Aspart 1 vial 04/09/19 07:00 04/10/19 17:58 Novolog Vial Sliding Scale - SQ 4 units ACHS [facility] Administration Protocol Letrozole 2.5 mg 04/09/19 10:00 04/10/19 10:56 Femara - PO 2.5 mg DAILY [facility] Administration Levothyroxine Sodium 112 mcg 04/09/19 07:00 04/10/19 06:22 Synthroid - PO 112 mcg DAILY@0700 [facility] Administration Multivitamins/Minerals/Vitamin C 1 tab 04/09/19 10:00 04/10/19 10:56 Tab-A-Vit - PO 1 tab DAILY [facility] Administration Pregabalin 25 mg 04/10/19 14:58 04/10/19 15:15 Lyrica - PO 25 mg BID [facility] Administration A/P: 89 F h/o multiple comorbidities, chronic LE cellulitis, multiple CVAs in the past, recurrent admissions for LE cellulitis, presents with HAP with HFpEF with acute exacerbation and exacerbation of LE b/l cellulitis. HAP PNA Cont. Abx Azithromycin, Zosyn, Vanco Cont. NC O2 PRN, (patient refusing albuterol endorses allergy/intolerance), HOB elevation aspiration precautions, Lasix PRN for SOB, BiPAp on standby for respiratory distress Pulmonary: Dr. Tiffanie Hannah LE cellulitis, improving being covered with current abx on board ID consult: Dr. Khanna HFpEF with acute exacerbation likely due to Na and fluid restriction non-compliance Lasix 80mg daily Fluid/Na restriction Cardiology: Dr. 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 Sequeira HTN controlled, cont. BP meds hold ABIOLA/ARbs, add hydralazine, cont. BB/Lasix HLD cont. Statin Multiple CVA in past will likely need palcement after this admission PT referral when patient more stable and can participate DVT ppx: Heparin SC GI ppx: PPI Bowel regimen: add Senna, Docusate, miralax PRN Visit type - Emergency Visit Emergency Visit: Yes ED Registration Date: 04/08/19 Care time: The patient presented to the Emergency Department on the above date and was hospitalized for further evaluation of their emergent condition. - New Patient This patient is new to me today: No - Critical Care Critical Care patient: No - Discharge Referral Referred to [facility] Med P.C.: No
[2019-04-10] MEDS ORDERED: SODIUM CHLORIDE 100 ML IVPB ONE (21:20)
[2019-04-10] MEDS ORDERED: AMPICILLIN NA/SULBACTAM NA 1.5 GM VIAL ONE (21:20)
[2019-04-10] MEDS: AMPICILLIN NA/SULBACTAM NA 1.5 GM in SODIUM CHLORIDE 100 ML IVPB SCH (21:33)
[2019-04-11] MEDS: ACETAMINOPHEN 325 MG TABLET (FP) PO PRN (02:30)
[2019-04-11] MEDS: HEPARIN NA (PORCINE) 5,000 UNITS/ML 1ML VIAL SQ SCH ×4 (06:20→21:51)
[2019-04-11] MEDS: hydrALAZINE HCL 10 MG TABLET PO SCH ×4 (06:20→21:51)
[2019-04-11] MEDS: INSULIN SLIDING SCALE (NOVOLOG) 1 VIAL SQ SCH ×4 (06:20→21:51)
[2019-04-11] MEDS: LEVOTHYROXINE NA 112 MCG TABLET (FP) PO SCH (06:24)
[2019-04-11 06:26] LABS: BASO % 2.2 % (0-2.0); EOS % 7.1 % (0-4.5); HEMATOCRIT 21.6 % (32.4-45.2); HEMOGLOBIN 7.2 GM/dL (10.7-15.3); LYMPH % 13.4 % (8-40); MCH 33.7 pg (25.7-33.7); MCHC 33.1 g/dl (32.0-36.0); MEAN CELL VOLUME 101.7 fl (80-96); MEAN PLT VOLUME 7.7 fl (7.5-11.1); MONO % 11.6 % (3.8-10.2); NEUT % 65.7 % (42.8-82.8); PLATELET COUNT 278 K/MM3 (134-434); RBC 2.12 M/mm3 (3.60-5.2); RDW 17.2 % (11.6-15.6); WHITE BLOOD COUNT 13.8 K/mm3 (4.0-10.0)
[2019-04-11 06:47] LABS: ALBUMIN 2.6 g/dl (3.4-5.0); BILIRUBIN,TOTAL 0.3 mg/dL (0.2-1); BLOOD UREA NITROGEN 46.3 mg/dL (7-18); CALCIUM 8.3 mg/dL (8.5-10.1); CREATININE 2.5 mg/dL (0.55-1.3); MAGNESIUM 2.1 mg/dL (1.8-2.4); PHOSPHOROUS 5.6 mg/dL (2.5-4.9); POTASSIUM 3.9 mmol/L (3.5-5.1); TOT PROT 6.2 g/dl (6.4-8.2)
[2019-04-11] MEDS: PIPERACILLIN/TAZOB 2.25 GM 2.25 GM in DEXTROSE 5%-WATER - 50 ML IVPB SCH ×2 (08:36→08:37)
[2019-04-11] MEDS ORDERED: PT OWN MED DRAWER 7, Y5N ONE (08:54)
[2019-04-11] MEDS ORDERED: AMPICILLIN NA/SULBACTAM NA 1.5 GM VIAL ONE ×2 (08:55→21:32)
[2019-04-11] MEDS ORDERED: SODIUM CHLORIDE 100 ML IVPB ONE ×2 (08:55→21:32)
--- NOTE | 2019-04-11 09:36 | PN ---
Progress Note, Physician Chief Complaint: sob History of Present Illness: thinks sob is a bit better but still breathlesness coming and going. coughing leg swelling way down no cp, palp - Current Medication List Current Medications: Active Medications Acetaminophen (Tylenol -) 650 mg PO Q6H PRN PRN Reason: PAIN Last Admin: 04/11/19 02:30 Dose: 650 mg Aspirin (Asa -) 81 mg PO DAILY [facility] Last Admin: 04/10/19 10:56 Dose: 81 mg Carvedilol (Coreg -) 25 mg PO BID [facility] Last Admin: 04/10/19 21:37 Dose: 25 mg Famotidine (Pepcid -) 20 mg PO DAILY [facility] Last Admin: 04/10/19 10:57 Dose: 20 mg Furosemide (Lasix Injection -) 80 mg IVPUSH DAILY [facility] Last Admin: 04/10/19 10:57 Dose: 80 mg Heparin Sodium (Porcine) (Heparin -) 5,000 unit SQ TID [facility] Last Admin: 04/11/19 06:20 Dose: 5,000 unit Hydralazine HCl (Apresoline -) 20 mg PO TID [facility] Last Admin: 04/11/19 06:20 Dose: 20 mg Ampicillin Sodium/Sulbactam (Sodium 1.5 gm/ Sodium Chloride) 100 mls @ 200 mls/ hr IVPB BID [facility] Last Admin: 04/10/19 21:33 Dose: 200 mls/hr Insulin Aspart (Novolog Vial Sliding Scale -) 1 vial SQ ACHS [facility]; Protocol Last Admin: 04/11/19 06:20 Dose: 2 units Letrozole (Femara -) 2.5 mg PO DAILY [facility] Last Admin: 04/10/19 10:56 Dose: 2.5 mg Levothyroxine Sodium (Synthroid -) 112 mcg PO DAILY@0700 [facility] Last Admin: 04/11/19 06:24 Dose: 112 mcg Multivitamins/Minerals/Vitamin C (Tab-A-Vit -) 1 tab PO DAILY [facility] Last Admin: 04/10/19 10:56 Dose: 1 tab Pregabalin (Lyrica -) 25 mg PO BID [facility] Last Admin: 04/10/19 21:37 Dose: 25 mg - Objective Vital Signs: Vital Signs Temperature 98.8 F 04/11/19 06:00 Pulse Rate 78 04/11/19 06:00 Respiratory Rate 18 04/11/19 06:00 Blood Pressure 157/70 04/11/19 06:00 O2 Sat by Pulse Oximetry (%) 97 04/10/19 23:58 Constitutional: Yes: Well Nourished, No Distress, Calm Cardiovascular: Yes: Regular Rate and Rhythm, JVD (probable), S1, S2. No: Gallop, Murmur Respiratory: Yes: Regular, CTA Bilaterally. No: Accessory Muscle Use, Rales, Wheezes Extremities: No: Cold Edema: No Neurological: Yes: Alert, Oriented Psychiatric: No: Agitated Labs: CBC, BMP 04/11/19 05:30 04/11/19 05:30 INR, PTT INR 1.01 (0.83-1.09) 04/08/19 22:30 Assessment/Plan EKG: sinus,nl intervals, no ischemic changes CXR: + congestive changes echo 03/2019 nl LV function, mild MR, mild TR, PASP at least 49 mmHg tele: acute diastolic heart failure exacerbation - recent echo nl LV function, mild pulm HTN - receiving iv lasix 80 QD, with incr UOP subjectively. no wts (re-ordered, spoke to nurse today). ++ UOP response here. sob slightly improved. no suspicion of bronchitis/copd here per d/w pulm. renal fxn improving. continue lasix 80 iv qd today--will incr to bid tomorrow if wt not coming down and sob persists lower ext cellulitis - manage per ID, primary HTN - bp was not controlled, hydral added - much improved, same meds MAURICE on CKD - recent creat 2.2-2.4 - renal fxn continues to improve gradually with diuresis. likely cardiorenal syndrome - renal following
[2019-04-11 09:40] LABS: ANISOCYTOSIS 1+
[2019-04-11 09:41] LABS: MACROCYTOSIS 1+; PLATELET ESTIMATE ADEQUATE
[2019-04-11] MEDS: CARVEDILOL 25 MG TABLET (FP) PO SCH ×2 (09:54→21:51)
[2019-04-11] MEDS: FUROSEMIDE 40 MG/4 ML INJECTABLE VIAL IVPUSH SCH (09:54)
[2019-04-11] MEDS: ASPIRIN 81 MG CHEWABLE TABLETS PO SCH (09:54)
[2019-04-11] MEDS: LETROZOLE 2.5 MG TABLET (FP) PO SCH (09:54)
[2019-04-11] MEDS: PREGABALIN 25 MG CAPSULE PO SCH ×2 (09:54→21:51)
[2019-04-11] MEDS: FAMOTIDINE 20 MG TABLET PO SCH (09:54)
[2019-04-11] MEDS: MULTIVITAMINS (DAILY MVI) TABLET (FP) PO SCH (09:54)
[2019-04-11] MEDS: AMPICILLIN NA/SULBACTAM NA 1.5 GM in SODIUM CHLORIDE 100 ML IVPB SCH ×2 (11:03→21:52)
--- NOTE | 2019-04-11 11:37 | PN ---
Progress Note (short form) - Note Progress Note: Renal follow up for MAURICE/CKD Seen and examined at the bedside awake and alert shortness of breath gradually improving but not yet resolved making urine no chest pain, fever or chills Vital Signs Temperature 97.9 F 04/11/19 09:53 Pulse Rate 81 04/11/19 09:53 Respiratory Rate 19 04/11/19 09:53 Blood Pressure 156/69 04/11/19 09:53 O2 Sat by Pulse Oximetry (%) 97 04/10/19 23:58 Intake & Output 04/08/19 04/09/19 04/10/19 04/11/19 23:59 23:59 23:59 23:59 Intake Total 410 750 200 Output Total 250 Balance 160 750 200 Weight 113.398 kg 87.203 kg NAD awake and alert RRR Dec BS slightly edmea in LE CBC, BMP 04/11/19 05:30 04/11/19 05:30 Current Medications Acetaminophen (Tylenol -) 650 mg PO Q6H PRN PRN Reason: PAIN Last Admin: 04/11/19 02:30 Dose: 650 mg Aspirin (Asa -) 81 mg PO DAILY [facility] Last Admin: 04/11/19 09:54 Dose: 81 mg Carvedilol (Coreg -) 25 mg PO BID [facility] Last Admin: 04/11/19 09:54 Dose: 25 mg Famotidine (Pepcid -) 20 mg PO DAILY [facility] Last Admin: 04/11/19 09:54 Dose: 20 mg Furosemide (Lasix Injection -) 80 mg IVPUSH DAILY [facility] Last Admin: 04/11/19 09:54 Dose: 80 mg Heparin Sodium (Porcine) (Heparin -) 5,000 unit SQ TID [facility] Last Admin: 04/11/19 06:20 Dose: 5,000 unit Hydralazine HCl (Apresoline -) 20 mg PO TID [facility] Last Admin: 04/11/19 06:20 Dose: 20 mg Ampicillin Sodium/Sulbactam (Sodium 1.5 gm/ Sodium Chloride) 100 mls @ 200 mls/ hr IVPB BID [facility] Last Admin: 04/11/19 11:03 Dose: 200 mls/hr Insulin Aspart (Novolog Vial Sliding Scale -) 1 vial SQ ACHS [facility]; Protocol Last Admin: 04/11/19 06:20 Dose: 2 units Letrozole (Femara -) 2.5 mg PO DAILY [facility] Last Admin: 04/11/19 09:54 Dose: 2.5 mg Levothyroxine Sodium (Synthroid -) 112 mcg PO DAILY@0700 [facility] Last Admin: 04/11/19 06:24 Dose: 112 mcg Multivitamins/Minerals/Vitamin C (Tab-A-Vit -) 1 tab PO DAILY [facility] Last Admin: 04/11/19 09:54 Dose: 1 tab Pregabalin (Lyrica -) 25 mg PO BID [facility] Last Admin: 04/11/19 09:54 Dose: 25 mg Impression 1. proteinuria 2. hypothyroid 3. HTN 4. DM 5. fluid overload 6. breast cancer 7. MAURICE 8. CKD Plan Renal function without improvement but is stable urine studies show nephrotic range protienuira prior work up showed negative LOVELY and SPEP may be due to diabetic nephropathy Continue Lasix IV dialy for edema management would avoid pilar/arb fo rnow given MAURICE Continue Coreg BP moderated with hydralazine. Thank you Gab Wallace DO
--- NOTE | 2019-04-11 11:59 | PN ---
Progress Note (short form) - Note Progress Note: Breathing feels better today. There was a concern for OSAS and PAP therapy was attempted but she is very claustrophobic and deferred use. Still with CHAIDEZ. No CP. Intake & Output 04/08/19 04/09/19 04/10/19 04/11/19 23:59 23:59 23:59 23:59 Intake Total 410 750 200 Output Total 250 Balance 160 750 200 Weight 250 lb 192 lb 4 oz Last Vital Signs Temp Pulse Resp BP Pulse Ox 97.9 F 81 19 156/69 97 04/11/19 09:53 04/11/19 09:53 04/11/19 09:53 04/11/19 09:53 04/10/19 23:58 Active Medications Acetaminophen (Tylenol -) 650 mg PO Q6H PRN PRN Reason: PAIN Last Admin: 04/11/19 02:30 Dose: 650 mg Aspirin (Asa -) 81 mg PO DAILY [facility] Last Admin: 04/11/19 09:54 Dose: 81 mg Carvedilol (Coreg -) 25 mg PO BID [facility] Last Admin: 04/11/19 09:54 Dose: 25 mg Famotidine (Pepcid -) 20 mg PO DAILY [facility] Last Admin: 04/11/19 09:54 Dose: 20 mg Furosemide (Lasix Injection -) 80 mg IVPUSH DAILY [facility] Last Admin: 04/11/19 09:54 Dose: 80 mg Heparin Sodium (Porcine) (Heparin -) 5,000 unit SQ TID [facility] Last Admin: 04/11/19 06:20 Dose: 5,000 unit Hydralazine HCl (Apresoline -) 20 mg PO TID [facility] Last Admin: 04/11/19 06:20 Dose: 20 mg Ampicillin Sodium/Sulbactam (Sodium 1.5 gm/ Sodium Chloride) 100 mls @ 200 mls/ hr IVPB BID [facility] Last Admin: 04/11/19 11:03 Dose: 200 mls/hr Insulin Aspart (Novolog Vial Sliding Scale -) 1 vial SQ ACHS [facility]; Protocol Last Admin: 04/11/19 06:20 Dose: 2 units Letrozole (Femara -) 2.5 mg PO DAILY [facility] Last Admin: 04/11/19 09:54 Dose: 2.5 mg Levothyroxine Sodium (Synthroid -) 112 mcg PO DAILY@0700 [facility] Last Admin: 04/11/19 06:24 Dose: 112 mcg Multivitamins/Minerals/Vitamin C (Tab-A-Vit -) 1 tab PO DAILY [facility] Last Admin: 04/11/19 09:54 Dose: 1 tab Pregabalin (Lyrica -) 25 mg PO BID [facility] Last Admin: 04/11/19 09:54 Dose: 25 mg Constitutional: Yes: NAD, mildly tachypneic with exertion Cardiovascular: Yes: Regular Rate and Rhythm, JVD, S1, S2. No: Gallop, Murmur Respiratory: Yes: Scattered bilateral rhonchi and rales. No: Accessory Muscle Use Extremities: No: Cold Edema: Yes (chronic skin changes) Neurological: Yes: Alert, Oriented Psychiatric: No: Agitated Labs: Laboratory Results - last 24 hr 04/10/19 04/10/19 04/10/19 12:03 17:57 21:32 WBC RBC Hgb Hct MCV MCH MCHC RDW Plt Count MPV Absolute Neuts (auto) Total Counted Neutrophils % Neutrophils % (Manual) Band Neutrophils % Lymphocytes % Lymphocytes % (Manual) Monocytes % Monocytes % (Manual) Eosinophils % Eosinophils % (Manual) Basophils % Nucleated RBC % Metamyelocytes Hypochromia Platelet Estimate Platelet Comment Polychromasia Anisocytosis Macrocytosis Sodium Potassium Chloride Carbon Dioxide Anion Gap BUN Creatinine Est GFR (CKD-EPI)AfAm Est GFR (CKD-EPI)NonAf POC Glucometer 236 247 249 Random Glucose Calcium Phosphorus Magnesium Total Bilirubin AST ALT Alkaline Phosphatase Total Protein Albumin 04/11/19 04/11/19 04/11/19 05:30 05:30 06:19 WBC 13.8 H RBC 2.12 L Hgb 7.2 L Hct 21.6 L MCV 101.7 H MCH 33.7 MCHC 33.1 RDW 17.2 H Plt Count 278 MPV 7.7 Absolute Neuts (auto) 9.1 H Total Counted 100 Neutrophils % 65.7 Neutrophils % (Manual) 63.0 Band Neutrophils % 10.0 Lymphocytes % 13.4 Lymphocytes % (Manual) 13.0 D Monocytes % 11.6 H Monocytes % (Manual) 8 Eosinophils % 7.1 H Eosinophils % (Manual) 6.0 H Basophils % 2.2 H Nucleated RBC % 0 Metamyelocytes 2 D Hypochromia 2+ Platelet Estimate Adequate Platelet Comment No clotting detected Polychromasia 1+ Anisocytosis 1+ Macrocytosis 1+ Sodium 140 Potassium 3.9 Chloride 106 Carbon Dioxide 24 Anion Gap 10 BUN 46.3 H Creatinine 2.5 H Est GFR (CKD-EPI)AfAm 19.10 Est GFR (CKD-EPI)NonAf 16.48 POC Glucometer 156 Random Glucose 163 H Calcium 8.3 L Phosphorus 5.6 H Magnesium 2.1 Total Bilirubin 0.3 AST 15 ALT 17 Alkaline Phosphatase 104 Total Protein 6.2 L Albumin 2.6 L Problem List - Problems (1) Acute kidney injury superimposed on CKD Code(s): N17.9 - ACUTE KIDNEY FAILURE, UNSPECIFIED; N18.9 - CHRONIC KIDNEY DISEASE, UNSPECIFIED (2) Anemia Code(s): D64.9 - ANEMIA, UNSPECIFIED Qualifiers: Anemia type: unspecified type Qualified Code(s): D64.9 - Anemia, unspecified (3) Bilateral leg edema Code(s): R60.0 - LOCALIZED EDEMA (4) Hypothyroid Code(s): E03.9 - HYPOTHYROIDISM, UNSPECIFIED Qualifiers: Hypothyroidism type: unspecified Qualified Code(s): E03.9 - Hypothyroidism , unspecified (5) Pulmonary vascular congestion Code(s): R09.89 - OTH SYMPTOMS AND SIGNS INVOLVING THE CIRC AND RESP SYSTEMS (6) Shortness of breath Code(s): R06.02 - SHORTNESS OF BREATH (7) Breast cancer Code(s): C50.919 - MALIGNANT NEOPLASM OF UNSP SITE OF UNSPECIFIED FEMALE BREAST (8) Breast cancer, left Code(s): C50.912 - MALIGNANT NEOPLASM OF UNSPECIFIED SITE OF LEFT FEMALE BREAST (9) Diabetes Code(s): E11.9 - TYPE 2 DIABETES MELLITUS WITHOUT COMPLICATIONS Qualifiers: Diabetes mellitus type: type 2 (10) History of CVA with residual deficit Code(s): I69.30 - UNSPECIFIED SEQUELAE OF CEREBRAL INFARCTION (11) Lower extremity cellulitis Code(s): L03.119 - CELLULITIS OF UNSPECIFIED PART OF LIMB (12) Acute diastolic (congestive) heart failure Code(s): I50.31 - ACUTE DIASTOLIC (CONGESTIVE) HEART FAILURE IMP DYSPNEA DUE TO ACUTE DIASTOLIC HF LOWER EXT EDEMA ACUTE ON CHRONIC KIDNEY DISEASE H/O LEFT BREAST CA S/P LUMPECTOMY,RT 2015 ANEMIA 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
--- NOTE | 2019-04-11 16:27 | PN ---
Progress Note, Physician History of Present Illness: Pt states she is feeling less SOB. No distress noted. B/L LE tenderness with touch. Afebrile. - Current Medication List Current Medications: Active Medications Acetaminophen (Tylenol -) 650 mg PO Q6H PRN PRN Reason: PAIN Aspirin (Asa -) 81 mg PO DAILY [facility] Carvedilol (Coreg -) 25 mg PO BID [facility] Famotidine (Pepcid -) 20 mg PO DAILY [facility] Furosemide (Lasix Injection -) 80 mg IVPUSH DAILY [facility] Heparin Sodium (Porcine) (Heparin -) 5,000 unit SQ TID [facility] Last Admin: 04/11/19 14:31 Dose: Not Given Hydralazine HCl (Apresoline -) 20 mg PO TID [facility] Last Admin: 04/11/19 14:31 Dose: Not Given Ampicillin Sodium/Sulbactam (Sodium 1.5 gm/ Sodium Chloride) 100 mls @ 200 mls/ hr IVPB BID [facility] Insulin Aspart (Novolog Vial Sliding Scale -) 1 vial SQ ACHS [facility]; Protocol Letrozole (Femara -) 2.5 mg PO DAILY [facility] Levothyroxine Sodium (Synthroid -) 112 mcg PO DAILY@0700 [facility] Multivitamins/Minerals/Vitamin C (Tab-A-Vit -) 1 tab PO DAILY [facility] Pregabalin (Lyrica -) 25 mg PO BID [facility] - Objective Vital Signs: Vital Signs Temperature 97.7 F 04/11/19 15:44 Pulse Rate 78 04/11/19 15:44 Respiratory Rate 18 04/11/19 15:44 Blood Pressure 151/60 04/11/19 15:44 O2 Sat by Pulse Oximetry (%) 98 04/11/19 10:00 Constitutional: Yes: No Distress Cardiovascular: Yes: Regular Rate and Rhythm Respiratory: Yes: Rales (decreased) Gastrointestinal: Yes: Normal Bowel Sounds, Soft Extremities: Yes: Erythema (b/l) Edema: Yes Edema: LLE: 1+, RLE: 1+ Neurological: Yes: Alert Labs: CBC, BMP 04/11/19 05:30 04/11/19 05:30 INR, PTT INR 1.01 (0.83-1.09) 04/08/19 22:30 Microbiology 04/08/19 22:15 Blood - Peripheral Venous Blood Culture - Preliminary NO GROWTH OBTAINED AFTER 48 HOURS, INCUBATION TO CONTINUE FOR 3 DAYS. 04/08/19 22:40 Blood - Peripheral Venous Blood Culture - Preliminary NO GROWTH OBTAINED AFTER 48 HOURS, INCUBATION TO CONTINUE FOR 3 DAYS. 04/09/19 01:55 Urine - Urine Clean Catch Urine Culture - Final NO GROWTH OBTAINED Problem List - Problems (1) Acute diastolic (congestive) heart failure Code(s): I50.31 - ACUTE DIASTOLIC (CONGESTIVE) HEART FAILURE (2) Acute kidney injury superimposed on CKD Code(s): N17.9 - ACUTE KIDNEY FAILURE, UNSPECIFIED; N18.9 - CHRONIC KIDNEY DISEASE, UNSPECIFIED (3) Anemia Code(s): D64.9 - ANEMIA, UNSPECIFIED Qualifiers: Anemia type: unspecified type Qualified Code(s): D64.9 - Anemia, unspecified (4) Bilateral leg edema Code(s): R60.0 - LOCALIZED EDEMA (5) Hypothyroid Code(s): E03.9 - HYPOTHYROIDISM, UNSPECIFIED Qualifiers: Hypothyroidism type: unspecified Qualified Code(s): E03.9 - Hypothyroidism , unspecified (6) Shortness of breath Code(s): R06.02 - SHORTNESS OF BREATH (7) Breast cancer, left Code(s): C50.912 - MALIGNANT NEOPLASM OF UNSPECIFIED SITE OF LEFT FEMALE BREAST (8) Diabetes Code(s): E11.9 - TYPE 2 DIABETES MELLITUS WITHOUT COMPLICATIONS Qualifiers: Diabetes mellitus type: type 2 (9) GERD (gastroesophageal reflux disease) Code(s): K21.9 - GASTRO-ESOPHAGEAL REFLUX DISEASE WITHOUT ESOPHAGITIS (10) HTN (hypertension) Code(s): I10 - ESSENTIAL (PRIMARY) HYPERTENSION (11) History of CVA with residual deficit Code(s): I69.30 - UNSPECIFIED SEQUELAE OF CEREBRAL INFARCTION (12) Lower extremity cellulitis Code(s): L03.119 - CELLULITIS OF UNSPECIFIED PART OF LIMB Assessment/Plan 89 y.o. female with PMH of DM, CKD, HTN, HLD, anemia, Lt breast CA s/p lumpectomy/RT, hypothyroidism, CVA, GBS, remote history of meningitis presents with complaints of worsening SOB and b/l LE edema that began several days [employer] after recent hospital discharge. Treated for b/l LE cellulitis with some improvement. Noted to have leukocytosis, LE erythema, worsening renal function and anemia b/l LE cellulitis Leukocytosis SOB b/l LE edema Acute diastolic HF Anemia Acute on chronic RF DM HTN Hx of Lt Breast CA Hypothyroidism Hx of CVAs -- wbc continues to trend down, pt afebrile -- no acute respiratory distress noted -- b/l LE erythema/edema improving -- continue Unasyn -- monitor cbc, bmp -- Pulmonary, Renal following -- continue monitor vitals
--- NOTE | 2019-04-11 18:14 | PN ---
Physical Exam: 89 F h/o HTN, HLD, Left breast cancer, Hypothyroidism, GERD, NIDDM and Multiple CVAs recently admitted at [place] for bilateral LE cellulitis (discharged ) presenting with difficulty breathing for several days. Patient was found to have bilateral lower lobe PNA, CHFE and exacerbation of LE cellulitis, Lower extremity cellulitis improving, breathing improved, DC tele and downgrade to med-surg. VSS, no fever spikes, WBC count trending down. GA: comfortable, AAox3, elderly, speaks in full sentences HEENT: No Jaundice, eye redness or discharge, PERRLA, EOMI. Normocephalic, atraumatic. Neck: Supple, nontender. No palpable adenopathy or thyromegaly. No JVD Chest: Good effort. Clear to auscultation and percussion. Heart: Regular. No S3, rub or murmur Abdomen: Not distended, soft, non-tender and no HSM. No rebound or guarding. Normal bowel sounds. Ext: Peripheral pulses intact. Leg edema with mild erythema. Skin: Warm and dry. No petechiae, rash or ecchymosis. Neuro: Alert. Oriented x3. CN 2-12 grossly intact. Sensation grossly intact in all four extremities and DTR are symmetric. Psych: Appropriate mood and affect. Good insight. Vital Signs - 24 hr 04/10/19 04/10/19 04/10/19 21:00 22:00 23:58 Temperature 98.8 F Pulse Rate 78 Respiratory 18 Rate Blood Pressure 157/70 O2 Sat by Pulse 98 97 97 Oximetry (%) 04/11/19 04/11/19 04/11/19 02:00 06:00 09:00 Temperature 98.2 F 98.8 F Pulse Rate 92 H 78 Respiratory 18 18 Rate Blood Pressure 154/69 157/70 O2 Sat by Pulse 98 Oximetry (%) 04/11/19 04/11/19 04/11/19 09:53 10:00 13:15 Temperature 97.9 F 97.7 F Pulse Rate 81 82 Respiratory 19 19 Rate Blood Pressure 156/69 172/82 H O2 Sat by Pulse 98 Oximetry (%) 04/11/19 04/11/19 14:00 15:44 Temperature 97.7 F Pulse Rate 78 Respiratory 18 18 Rate Blood Pressure 151/60 O2 Sat by Pulse 97 Oximetry (%) Laboratory Results - last 24 hr 04/10/19 04/11/19 04/11/19 21:32 05:30 05:30 WBC 13.8 H RBC 2.12 L Hgb 7.2 L Hct 21.6 L MCV 101.7 H MCH 33.7 MCHC 33.1 RDW 17.2 H Plt Count 278 MPV 7.7 Absolute Neuts (auto) 9.1 H Total Counted 100 Neutrophils % 65.7 Neutrophils % (Manual) 63.0 Band Neutrophils % 10.0 Lymphocytes % 13.4 Lymphocytes % (Manual) 13.0 D Monocytes % 11.6 H Monocytes % (Manual) 8 Eosinophils % 7.1 H Eosinophils % (Manual) 6.0 H Basophils % 2.2 H Nucleated RBC % 0 Metamyelocytes 2 D Hypochromia 2+ Platelet Estimate Adequate Platelet Comment No clotting detected Polychromasia 1+ Anisocytosis 1+ Macrocytosis 1+ Sodium 140 Potassium 3.9 Chloride 106 Carbon Dioxide 24 Anion Gap 10 BUN 46.3 H Creatinine 2.5 H Est GFR (CKD-EPI)AfAm 19.10 Est GFR (CKD-EPI)NonAf 16.48 POC Glucometer 249 Random Glucose 163 H Calcium 8.3 L Phosphorus 5.6 H Magnesium 2.1 Total Bilirubin 0.3 AST 15 ALT 17 Alkaline Phosphatase 104 Total Protein 6.2 L Albumin 2.6 L 04/11/19 04/11/19 04/11/19 06:19 12:03 16:28 WBC RBC Hgb Hct MCV MCH MCHC RDW Plt Count MPV Absolute Neuts (auto) Total Counted Neutrophils % Neutrophils % (Manual) Band Neutrophils % Lymphocytes % Lymphocytes % (Manual) Monocytes % Monocytes % (Manual) Eosinophils % Eosinophils % (Manual) Basophils % Nucleated RBC % Metamyelocytes Hypochromia Platelet Estimate Platelet Comment Polychromasia Anisocytosis Macrocytosis Sodium Potassium Chloride Carbon Dioxide Anion Gap BUN Creatinine Est GFR (CKD-EPI)AfAm Est GFR (CKD-EPI)NonAf POC Glucometer 156 197 241 Random Glucose Calcium Phosphorus Magnesium Total Bilirubin AST ALT Alkaline Phosphatase Total Protein Albumin Current Medications Generic Name Dose Route Start Last Admin Trade Name Freq PRN Reason Stop Dose Admin Acetaminophen 650 mg 04/11/19 13:59 Tylenol - PO Q6H PRN PAIN Aspirin 81 mg 04/12/19 10:00 Asa - PO DAILY [facility] Carvedilol 25 mg 04/11/19 22:00 Coreg - PO BID [facility] Famotidine 20 mg 04/12/19 10:00 Pepcid - PO DAILY [facility] Furosemide 80 mg 04/12/19 10:00 Lasix Injection - IVPUSH DAILY [facility] Heparin Sodium (Porcine) 5,000 unit 04/11/19 14:00 04/11/19 14:31 Heparin - SQ Not Given TID [facility] Hydralazine HCl 20 mg 04/11/19 14:00 04/11/19 14:31 Apresoline - PO Not Given TID [facility] Ampicillin Sodium/Sulbactam 100 mls @ 200 mls/hr 04/11/19 22:00 Sodium 1.5 gm/ Sodium Chloride IVPB BID [facility] Insulin Aspart 1 vial 04/11/19 16:30 04/11/19 16:32 Novolog Vial Sliding Scale - SQ 4 units ACHS [facility] Administration Protocol Letrozole 2.5 mg 04/12/19 10:00 Femara - PO DAILY [facility] Levothyroxine Sodium 112 mcg 04/12/19 07:00 Synthroid - PO DAILY@0700 [facility] Multivitamins/Minerals/Vitamin C 1 tab 04/12/19 10:00 Tab-A-Vit - PO DAILY [facility] Pregabalin 25 mg 04/11/19 22:00 Lyrica - PO BID [facility] A/P: 89 F h/o multiple comorbidities, chronic LE cellulitis, multiple CVAs in the past, recurrent admissions for LE cellulitis, presents with HAP with HFpEF with acute exacerbation and exacerbation of LE b/l cellulitis. HAP PNA Cont. Abx Azithromycin, Zosyn, Vanco Cont. NC O2 PRN, (patient refusing albuterol endorses allergy/intolerance), HOB elevation aspiration precautions, Lasix PRN for SOB, BiPAp on standby for respiratory distress Pulmonary: Dr. Moreno Chronic LE cellulitis, improving being covered with current abx on board WBC count trending down, clinically cellulitis looks improved ID consult: Dr. Khanna HFpEF with acute exacerbation likely due to Na and fluid restriction non-compliance Lasix 80mg daily, Cardiology wants to increase to BID if weights do not significant decrease Fluid/Na restriction Cardiology: Dr. 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 Sequeira HTN controlled, cont. BP meds hold ABIOLA/ARbs, cont. Hydralazine, cont. BB/Lasix HLD cont. Statin Multiple CVA in past will likely need placement after this admission PT referral DVT ppx: Heparin SC GI ppx: PPI Bowel regimen: add Senna, Docusate, miralax PRN Visit type - Emergency Visit Emergency Visit: Yes ED Registration Date: 04/08/19 Care time: The patient presented to the Emergency Department on the above date and was hospitalized for further evaluation of their emergent condition. - New Patient This patient is new to me today: No - Critical Care Critical Care patient: No - Discharge Referral Referred to [facility] Med P.C.: No
[2019-04-12] MEDS: INSULIN SLIDING SCALE (NOVOLOG) 1 VIAL SQ SCH ×4 (06:20→22:55)
[2019-04-12] MEDS: LEVOTHYROXINE NA 112 MCG TABLET (FP) PO SCH (06:21)
[2019-04-12] MEDS: HEPARIN NA (PORCINE) 5,000 UNITS/ML 1ML VIAL SQ SCH ×3 (06:21→22:33)
[2019-04-12] MEDS: hydrALAZINE HCL 10 MG TABLET PO SCH ×3 (06:21→22:32)
[2019-04-12] MEDS: ACETAMINOPHEN 325 MG TABLET (FP) PO PRN ×2 (06:28→17:08)
[2019-04-12 07:30] LABS: HEMATOCRIT 22.6 % (32.4-45.2); HEMOGLOBIN 7.4 GM/dL (10.7-15.3); MCH 33.1 pg (25.7-33.7); MCHC 32.9 g/dl (32.0-36.0); MEAN CELL VOLUME 100.8 fl (80-96); MEAN PLT VOLUME 7.7 fl (7.5-11.1); PLATELET COUNT 280 K/MM3 (134-434); RBC 2.24 M/mm3 (3.60-5.2); RDW 17.1 % (11.6-15.6); WHITE BLOOD COUNT 12.6 K/mm3 (4.0-10.0)
[2019-04-12 07:55] LABS: ALBUMIN 2.6 g/dl (3.4-5.0); BILIRUBIN,TOTAL 0.5 mg/dL (0.2-1); BLOOD UREA NITROGEN 51.3 mg/dL (7-18); CALCIUM 8.3 mg/dL (8.5-10.1); CREATININE 2.3 mg/dL (0.55-1.3); MAGNESIUM 2.2 mg/dL (1.8-2.4); PHOSPHOROUS 5.2 mg/dL (2.5-4.9); POTASSIUM 3.9 mmol/L (3.5-5.1); TOT PROT 6.3 g/dl (6.4-8.2)
[2019-04-12] MEDS ORDERED: AMPICILLIN NA/SULBACTAM NA 1.5 GM VIAL ONE ×2 (09:33→22:00)
[2019-04-12] MEDS ORDERED: SODIUM CHLORIDE 100 ML IVPB ONE ×2 (09:34→22:00)
[2019-04-12] MEDS ORDERED: FUROSEMIDE 40 MG/4 ML INJECTABLE VIAL IVPUSH SCH (10:00)
[2019-04-12] MEDS: ASPIRIN 81 MG CHEWABLE TABLETS PO SCH (10:08)
[2019-04-12] MEDS: PREGABALIN 25 MG CAPSULE PO SCH ×2 (10:08→22:32)
[2019-04-12] MEDS: MULTIVITAMINS (DAILY MVI) TABLET (FP) PO SCH (10:08)
[2019-04-12] MEDS: CARVEDILOL 25 MG TABLET (FP) PO SCH ×2 (10:08→22:33)
[2019-04-12] MEDS: LETROZOLE 2.5 MG TABLET (FP) PO SCH (10:09)
[2019-04-12] MEDS: AMPICILLIN NA/SULBACTAM NA 1.5 GM in SODIUM CHLORIDE 100 ML IVPB SCH ×2 (10:09→22:33)
[2019-04-12] MEDS: FAMOTIDINE 20 MG TABLET PO SCH (10:10)
--- NOTE | 2019-04-12 11:09 | PN ---
Progress Note (short form) - Note Progress Note: Breathing feels slightly better today. Deferred use of NIPPV overnight. Still with CHAIDEZ. No CP. Intake & Output 04/09/19 04/10/19 04/11/19 04/12/19 23:59 23:59 23:59 23:59 Intake Total 927 912 2990 Output Total 250 Balance 663 574 8571 Weight 192 lb 4 oz 202 lb 3.2 oz 199 lb 2 oz Last Vital Signs Temp Pulse Resp BP Pulse Ox 97.5 F L 82 18 158/76 97 04/12/19 10:00 04/12/19 10:00 04/12/19 10:00 04/12/19 10:00 04/11/19 22:00 Active Medications Acetaminophen (Tylenol -) 650 mg PO Q6H PRN PRN Reason: PAIN Last Admin: 04/12/19 06:28 Dose: 650 mg Aspirin (Asa -) 81 mg PO DAILY [facility] Last Admin: 04/12/19 10:08 Dose: 81 mg Carvedilol (Coreg -) 25 mg PO BID [facility] Last Admin: 04/12/19 10:08 Dose: 25 mg Famotidine (Pepcid -) 20 mg PO DAILY [facility] Last Admin: 04/12/19 10:10 Dose: 20 mg Furosemide (Lasix Injection -) 80 mg IVPUSH DAILY [facility] Last Admin: 04/12/19 10:09 Dose: 80 mg Heparin Sodium (Porcine) (Heparin -) 5,000 unit SQ TID [facility] Last Admin: 04/12/19 06:21 Dose: 5,000 unit Hydralazine HCl (Apresoline -) 20 mg PO TID [facility] Last Admin: 04/12/19 06:21 Dose: 20 mg Ampicillin Sodium/Sulbactam (Sodium 1.5 gm/ Sodium Chloride) 100 mls @ 200 mls/ hr IVPB BID [facility] Last Admin: 04/12/19 10:09 Dose: 200 mls/hr Insulin Aspart (Novolog Vial Sliding Scale -) 1 vial SQ ACHS [facility]; Protocol Last Admin: 04/12/19 06:20 Dose: 2 units Letrozole (Femara -) 2.5 mg PO DAILY [facility] Last Admin: 04/12/19 10:09 Dose: 2.5 mg Levothyroxine Sodium (Synthroid -) 112 mcg PO DAILY@0700 [facility] Last Admin: 04/12/19 06:21 Dose: 112 mcg Multivitamins/Minerals/Vitamin C (Tab-A-Vit -) 1 tab PO DAILY [facility] Last Admin: 04/12/19 10:08 Dose: 1 tab Pregabalin (Lyrica -) 25 mg PO BID [facility] Last Admin: 04/12/19 10:08 Dose: 25 mg Constitutional: Yes: NAD, mildly tachypneic with exertion Cardiovascular: Yes: Regular Rate and Rhythm, JVD, S1, S2. No: Gallop, Murmur Respiratory: Yes: Scattered bilateral rhonchi and rales. No: Accessory Muscle Use Extremities: No: Cold Edema: Yes (chronic skin changes) Neurological: Yes: Alert, Oriented Psychiatric: No: Agitated Labs: Laboratory Results - last 24 hr 04/10/19 04/11/19 04/11/19 06:30 12:03 16:28 WBC RBC Hgb Hct MCV MCH MCHC RDW Plt Count MPV Sodium Potassium Chloride Carbon Dioxide Anion Gap BUN Creatinine Est GFR (CKD-EPI)AfAm Est GFR (CKD-EPI)NonAf POC Glucometer 197 241 Random Glucose Calcium Phosphorus Magnesium Total Bilirubin AST ALT Alkaline Phosphatase Total Protein Albumin Urine Eosinophils None seen 04/11/19 04/12/19 04/12/19 21:47 06:18 06:37 WBC 12.6 H RBC 2.24 L Hgb 7.4 L Hct 22.6 L MCV 100.8 H MCH 33.1 MCHC 32.9 RDW 17.1 H Plt Count 280 MPV 7.7 Sodium Potassium Chloride Carbon Dioxide Anion Gap BUN Creatinine Est GFR (CKD-EPI)AfAm Est GFR (CKD-EPI)NonAf POC Glucometer 349 177 Random Glucose Calcium Phosphorus Magnesium Total Bilirubin AST ALT Alkaline Phosphatase Total Protein Albumin Urine Eosinophils 04/12/19 06:37 WBC RBC Hgb Hct MCV MCH MCHC RDW Plt Count MPV Sodium 138 Potassium 3.9 Chloride 105 Carbon Dioxide 25 Anion Gap 8 BUN 51.3 H Creatinine 2.3 H Est GFR (CKD-EPI)AfAm 21.13 Est GFR (CKD-EPI)NonAf 18.23 POC Glucometer Random Glucose 184 H Calcium 8.3 L Phosphorus 5.2 H Magnesium 2.2 Total Bilirubin 0.5 AST 14 L ALT 16 Alkaline Phosphatase 109 Total Protein 6.3 L Albumin 2.6 L Urine Eosinophils Problem List - Problems (1) Acute kidney injury superimposed on CKD Code(s): N17.9 - ACUTE KIDNEY FAILURE, UNSPECIFIED; N18.9 - CHRONIC KIDNEY DISEASE, UNSPECIFIED (2) Anemia Code(s): D64.9 - ANEMIA, UNSPECIFIED Qualifiers: Anemia type: unspecified type Qualified Code(s): D64.9 - Anemia, unspecified (3) Bilateral leg edema Code(s): R60.0 - LOCALIZED EDEMA (4) Hypothyroid Code(s): E03.9 - HYPOTHYROIDISM, UNSPECIFIED Qualifiers: Hypothyroidism type: unspecified Qualified Code(s): E03.9 - Hypothyroidism , unspecified (5) Pulmonary vascular congestion Code(s): R09.89 - OTH SYMPTOMS AND SIGNS INVOLVING THE CIRC AND RESP SYSTEMS (6) Shortness of breath Code(s): R06.02 - SHORTNESS OF BREATH (7) Breast cancer Code(s): C50.919 - MALIGNANT NEOPLASM OF UNSP SITE OF UNSPECIFIED FEMALE BREAST (8) Breast cancer, left Code(s): C50.912 - MALIGNANT NEOPLASM OF UNSPECIFIED SITE OF LEFT FEMALE BREAST (9) Diabetes Code(s): E11.9 - TYPE 2 DIABETES MELLITUS WITHOUT COMPLICATIONS Qualifiers: Diabetes mellitus type: type 2 (10) History of CVA with residual deficit Code(s): I69.30 - UNSPECIFIED SEQUELAE OF CEREBRAL INFARCTION (11) Lower extremity cellulitis Code(s): L03.119 - CELLULITIS OF UNSPECIFIED PART OF LIMB (12) Acute diastolic (congestive) heart failure Code(s): I50.31 - ACUTE DIASTOLIC (CONGESTIVE) HEART FAILURE IMP DYSPNEA DUE TO ACUTE DIASTOLIC HF LOWER EXT EDEMA ACUTE ON CHRONIC KIDNEY DISEASE H/O LEFT BREAST CA S/P LUMPECTOMY,RT 2015 ANEMIA 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
--- NOTE | 2019-04-12 12:14 | PN ---
Progress Note, Physician Chief Complaint: sob History of Present Illness: urinating copiously still. sob not better--continues to wax and wane without improvement leg swelling remains much resolved no cp, palp - Current Medication List Current Medications: Active Medications Acetaminophen (Tylenol -) 650 mg PO Q6H PRN PRN Reason: PAIN Last Admin: 04/12/19 06:28 Dose: 650 mg Aspirin (Asa -) 81 mg PO DAILY [facility] Last Admin: 04/12/19 10:08 Dose: 81 mg Carvedilol (Coreg -) 25 mg PO BID [facility] Last Admin: 04/12/19 10:08 Dose: 25 mg Famotidine (Pepcid -) 20 mg PO DAILY [facility] Last Admin: 04/12/19 10:10 Dose: 20 mg Furosemide (Lasix Injection -) 80 mg IVPUSH DAILY [facility] Last Admin: 04/12/19 10:09 Dose: 80 mg Heparin Sodium (Porcine) (Heparin -) 5,000 unit SQ TID [facility] Last Admin: 04/12/19 06:21 Dose: 5,000 unit Hydralazine HCl (Apresoline -) 20 mg PO TID [facility] Last Admin: 04/12/19 06:21 Dose: 20 mg Ampicillin Sodium/Sulbactam (Sodium 1.5 gm/ Sodium Chloride) 100 mls @ 200 mls/ hr IVPB BID [facility] Last Admin: 04/12/19 10:09 Dose: 200 mls/hr Insulin Aspart (Novolog Vial Sliding Scale -) 1 vial SQ ACHS [facility]; Protocol Last Admin: 04/12/19 06:20 Dose: 2 units Letrozole (Femara -) 2.5 mg PO DAILY [facility] Last Admin: 04/12/19 10:09 Dose: 2.5 mg Levothyroxine Sodium (Synthroid -) 112 mcg PO DAILY@0700 [facility] Last Admin: 04/12/19 06:21 Dose: 112 mcg Multivitamins/Minerals/Vitamin C (Tab-A-Vit -) 1 tab PO DAILY [facility] Last Admin: 04/12/19 10:08 Dose: 1 tab Pregabalin (Lyrica -) 25 mg PO BID [facility] Last Admin: 04/12/19 10:08 Dose: 25 mg - Objective Vital Signs: Vital Signs Temperature 97.5 F L 04/12/19 10:00 Pulse Rate 82 04/12/19 10:00 Respiratory Rate 18 04/12/19 10:00 Blood Pressure 158/76 04/12/19 10:00 O2 Sat by Pulse Oximetry (%) 97 04/11/19 22:00 Constitutional: Yes: Well Nourished, No Distress, Calm Cardiovascular: Yes: Regular Rate and Rhythm, JVD, S1, S2. No: Gallop, Murmur Respiratory: Yes: Regular, CTA Bilaterally, Diminished (L base). No: Accessory Muscle Use, Rales, Wheezes Extremities: No: Cold Edema: No Neurological: Yes: Alert, Oriented Psychiatric: No: Agitated Labs: CBC, BMP 04/12/19 06:37 04/12/19 06:37 INR, PTT INR 1.01 (0.83-1.09) 04/08/19 22:30 Assessment/Plan EKG: sinus,nl intervals, no ischemic changes CXR: + congestive changes echo 03/2019 nl LV function, mild MR, mild TR, PASP at least 49 mmHg acute diastolic heart failure exacerbation - recent echo nl LV function, mild pulm HTN - CT chest bilat effusions and vascular congestion pattern, with + flank subcutaneous edema. - receiving iv lasix 80 QD here with incr UOP subjectively. no baseline wts: 202 yest-->199 today (different scale, due to room changed to different floor) . no suspicion of bronchitis/copd here per d/w pulm. bun fairly stable, creat improving progressively. remains volume up with JVD and ongoing SOB that has not improved much. creat at her baseline from 03/25 admit (was 1.3 last in 06/23) --will check with dr mckeon if interim values known regarding prior baseline. increase lasix to 80 iv bid today lower ext cellulitis - manage per ID, primary HTN - bp was not controlled, hydral added - much improved, reasonable control. same meds - cont aggressive diuresis MAURICE on CKD - recent creat 2.2-2.4 - renal fxn continues to improve gradually with diuresis. likely cardiorenal syndrome - renal following
--- NOTE | 2019-04-12 12:21 | PN ---
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 Suggest mashing soft foods to reduce labor while swallowing. She denies dysphagia. Overtly tolerating diet. f/u RD- Possibly Dys ground with 1-2 soft items?
--- NOTE | 2019-04-12 12:53 | PN ---
Progress Note, Physician History of Present Illness: says breathing better legs improving still continues to be sob - Current Medication List Current Medications: Active Medications Acetaminophen (Tylenol -) 650 mg PO Q6H PRN PRN Reason: PAIN Last Admin: 04/12/19 06:28 Dose: 650 mg Aspirin (Asa -) 81 mg PO DAILY [facility] Last Admin: 04/12/19 10:08 Dose: 81 mg Carvedilol (Coreg -) 25 mg PO BID [facility] Last Admin: 04/12/19 10:08 Dose: 25 mg Famotidine (Pepcid -) 20 mg PO DAILY [facility] Last Admin: 04/12/19 10:10 Dose: 20 mg Furosemide (Lasix Injection -) 80 mg IVPUSH BIDLASIX [facility] Heparin Sodium (Porcine) (Heparin -) 5,000 unit SQ TID [facility] Last Admin: 04/12/19 06:21 Dose: 5,000 unit Hydralazine HCl (Apresoline -) 20 mg PO TID [facility] Last Admin: 04/12/19 06:21 Dose: 20 mg Ampicillin Sodium/Sulbactam (Sodium 1.5 gm/ Sodium Chloride) 100 mls @ 200 mls/ hr IVPB BID [facility] Last Admin: 04/12/19 10:09 Dose: 200 mls/hr Insulin Aspart (Novolog Vial Sliding Scale -) 1 vial SQ ACHS [facility]; Protocol Last Admin: 04/12/19 12:26 Dose: 6 units Letrozole (Femara -) 2.5 mg PO DAILY [facility] Last Admin: 04/12/19 10:09 Dose: 2.5 mg Levothyroxine Sodium (Synthroid -) 112 mcg PO DAILY@0700 [facility] Last Admin: 04/12/19 06:21 Dose: 112 mcg Multivitamins/Minerals/Vitamin C (Tab-A-Vit -) 1 tab PO DAILY [facility] Last Admin: 04/12/19 10:08 Dose: 1 tab Pregabalin (Lyrica -) 25 mg PO BID [facility] Last Admin: 04/12/19 10:08 Dose: 25 mg - Objective Vital Signs: Vital Signs Temperature 97.5 F L 04/12/19 10:00 Pulse Rate 82 04/12/19 10:00 Respiratory Rate 18 04/12/19 10:00 Blood Pressure 158/76 04/12/19 10:00 O2 Sat by Pulse Oximetry (%) 97 04/11/19 22:00 Constitutional: Yes: Calm, Mild Distress Cardiovascular: Yes: S1, S2 Respiratory: Yes: Regular, On Nasal O2, Poor Air Entry Gastrointestinal: Yes: Normal Bowel Sounds, Soft Musculoskeletal: Yes: WNL Extremities: Yes: Erythema (minimal), Other Edema: LLE: 1+ Neurological: Yes: Alert, Oriented Psychiatric: Yes: Alert, Oriented Labs: CBC, BMP 04/12/19 06:37 04/12/19 06:37 INR, PTT INR 1.01 (0.83-1.09) 04/08/19 22:30 Assessment/Plan Problem List - Problems (1) Acute diastolic (congestive) heart failure Code(s): I50.31 - ACUTE DIASTOLIC (CONGESTIVE) HEART FAILURE (2) Acute kidney injury superimposed on CKD Code(s): N17.9 - ACUTE KIDNEY FAILURE, UNSPECIFIED; N18.9 - CHRONIC KIDNEY DISEASE, UNSPECIFIED (3) Anemia Code(s): D64.9 - ANEMIA, UNSPECIFIED Qualifiers: Anemia type: unspecified type Qualified Code(s): D64.9 - Anemia, unspecified (4) Bilateral leg edema Code(s): R60.0 - LOCALIZED EDEMA (5) Hypothyroid Code(s): E03.9 - HYPOTHYROIDISM, UNSPECIFIED Qualifiers: Hypothyroidism type: unspecified Qualified Code(s): E03.9 - Hypothyroidism , unspecified (6) Shortness of breath Code(s): R06.02 - SHORTNESS OF BREATH (7) Breast cancer, left Code(s): C50.912 - MALIGNANT NEOPLASM OF UNSPECIFIED SITE OF LEFT FEMALE BREAST (8) Diabetes Code(s): E11.9 - TYPE 2 DIABETES MELLITUS WITHOUT COMPLICATIONS Qualifiers: Diabetes mellitus type: type 2 (9) GERD (gastroesophageal reflux disease) Code(s): K21.9 - GASTRO-ESOPHAGEAL REFLUX DISEASE WITHOUT ESOPHAGITIS (10) HTN (hypertension) Code(s): I10 - ESSENTIAL (PRIMARY) HYPERTENSION (11) History of CVA with residual deficit Code(s): I69.30 - UNSPECIFIED SEQUELAE OF CEREBRAL INFARCTION (12) Lower extremity cellulitis Code(s): L03.119 - CELLULITIS OF UNSPECIFIED PART OF LIMB Assessment/Plan 89 y.o. 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 Treated for b/l LE cellulitis with some improvement. Noted to have leukocytosis, LE erythema, worsening renal function and anemia b/l LE cellulitis Leukocytosis SOB b/l LE edema Acute diastolic HF Anemia Acute on chronic RF DM HTN Hx of Lt Breast CA Hypothyroidism Hx of CVAs plan continue current mgmt abx monitor wbc elevation of the leg
--- NOTE | 2019-04-12 13:02 | PN ---
Progress Note, Physician History of Present Illness: Pt seen and examined at bedside. She complains of shortness of breath. She feels that her lower ext edema is improving. - Current Medication List Current Medications: Active Medications Acetaminophen (Tylenol -) 650 mg PO Q6H PRN PRN Reason: PAIN Last Admin: 04/12/19 06:28 Dose: 650 mg Aspirin (Asa -) 81 mg PO DAILY [facility] Last Admin: 04/12/19 10:08 Dose: 81 mg Carvedilol (Coreg -) 25 mg PO BID [facility] Last Admin: 04/12/19 10:08 Dose: 25 mg Famotidine (Pepcid -) 20 mg PO DAILY [facility]S [facility] Last Admin: 04/12/19 10:10 Dose: 20 mg Furosemide (Lasix Injection -) 80 mg IVPUSH BIDLASIX [facility] 234 BEDS [facility] Heparin Sodium (Porcine) (Heparin -) 5,000 unit SQ TID [facility] Last Admin: 04/12/19 06:21 Dose: 5,000 unit Hydralazine HCl (Apresoline -) 20 mg PO TID [facility] Last Admin: 04/12/19 06:21 Dose: 20 mg Ampicillin Sodium/Sulbactam (Sodium 1.5 gm/ Sodium Chloride) 100 mls @ 200 mls/ hr IVPB BID [facility] Last Admin: 04/12/19 10:09 Dose: 200 mls/hr Insulin Aspart (Novolog Vial Sliding Scale -) 1 vial SQ ACHS [facility]S [facility]; Protocol Last Admin: 04/12/19 12:26 Dose: 6 units Letrozole (Femara -) 2.5 mg PO DAILY [facility] Last Admin: 04/12/19 10:09 Dose: 2.5 mg Levothyroxine Sodium (Synthroid -) 112 mcg PO DAILY@0700 [facility] 234 [facility]S [facility] Last Admin: 04/12/19 06:21 Dose: 112 mcg Multivitamins/Minerals/Vitamin C (Tab-A-Vit -) 1 tab PO DAILY [facility]S [facility] Last Admin: 04/12/19 10:08 Dose: 1 tab Pregabalin (Lyrica -) 25 mg PO BID [facility] Last Admin: 04/12/19 10:08 Dose: 25 mg - Objective Vital Signs: Vital Signs Temperature 97.5 F L 04/12/19 10:00 Pulse Rate 82 04/12/19 10:00 Respiratory Rate 18 04/12/19 10:00 Blood Pressure 158/76 04/12/19 10:00 O2 Sat by Pulse Oximetry (%) 97 04/11/19 22:00 Constitutional: Yes: Calm Eyes: Yes: Conjunctiva Clear HENT: Yes: Atraumatic Neck: Yes: Supple Cardiovascular: Yes: S1, S2 Respiratory: Yes: On Nasal O2, Rhonchi Gastrointestinal: Yes: Normal Bowel Sounds, Soft Genitourinary: Yes: WNL Musculoskeletal: Yes: WNL Edema: Yes Edema: LLE: 2+, RLE: 2+ Neurological: Yes: Oriented Psychiatric: Yes: Oriented Labs: CBC, BMP 04/12/19 06:37 04/12/19 06:37 INR, PTT INR 1.01 (0.83-1.09) 04/08/19 22:30 Assessment/Plan Current Medications Generic Name Dose Route Start Last Admin Trade Name Freq PRN Reason Stop Dose Admin Acetaminophen 650 mg 04/11/19 13:59 04/12/19 06:28 Tylenol - PO 650 mg Q6H PRN Administration PAIN Aspirin 81 mg 04/12/19 10:00 04/12/19 10:08 Asa - PO 81 mg DAILY [facility] Administration Carvedilol 25 mg 04/11/19 22:00 04/12/19 10:08 Coreg - PO 25 mg BID [facility] Administration Famotidine 20 mg 04/12/19 10:00 04/12/19 10:10 Pepcid - PO 20 mg DAILY [facility] Administration Furosemide 80 mg 04/12/19 16:00 Lasix Injection - IVPUSH BIDLASIX [facility] Heparin Sodium (Porcine) 5,000 unit 04/11/19 14:00 04/12/19 06:21 Heparin - SQ 5,000 unit TID [facility] Administration Hydralazine HCl 20 mg 04/11/19 14:00 04/12/19 06:21 Apresoline - PO 20 mg TID [facility] Administration Ampicillin Sodium/Sulbactam 100 mls @ 200 mls/hr 04/11/19 22:00 04/12/19 10: 09 Sodium 1.5 gm/ Sodium Chloride IVPB 200 mls/hr BID [facility] Administration Insulin Aspart 1 vial 04/11/19 16:30 04/12/19 12:26 Novolog Vial Sliding Scale - SQ 6 units ACHS [facility] Administration Protocol Letrozole 2.5 mg 04/12/19 10:00 04/12/19 10:09 Femara - PO 2.5 mg DAILY [facility] Administration Levothyroxine Sodium 112 mcg 04/12/19 07:00 04/12/19 06:21 Synthroid - PO 112 mcg DAILY@0700 [facility] Administration Multivitamins/Minerals/Vitamin C 1 tab 04/12/19 10:00 04/12/19 10:08 Tab-A-Vit - PO 1 tab DAILY [facility] Administration Pregabalin 25 mg 04/11/19 22:00 04/12/19 10:08 Lyrica - PO 25 mg BID [facility] Administration Laboratory Tests 04/10/19 06:30 Urine Eosinophils None seen Impression 1. proteinuria 2. hypothyroid 3. HTN 4. DM 5. fluid overload 6. breast cancer 7. MAURICE 8. 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
[2019-04-12] MEDS ORDERED: SIMETHICONE 80 MG TAB.CHEW (FP) PO ONE (13:23)
--- NOTE | 2019-04-12 14:33 | PN ---
Progress Note (short form) - Note Progress Note: Hospitalist Medicine Very pleasant. C/o SOB when she is eating, as well as gas pain. Discussed case w / daughter over phone. Vitals 04/12/19 10:00 Temperature 97.5 F L Pulse Rate 82 Respiratory 18 Rate Blood Pressure 158/76 Physical Exam general: resting in bed, CHAIDEZ heent: NCAT neck: supple cardio: S1, S2, RRR. no r/m/g pulm: +scattered rhonchi. mild accessory m usage. CHAIDEZ abdomen: nontender,nondistended LE: no edema, +chronic changes. 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 04/08/19 22:15 Blood - Peripheral Venous Blood Culture - Preliminary NO GROWTH OBTAINED AFTER 72 HOURS, INCUBATION TO CONTINUE FOR 2 DAYS. Imaging 04/12/19: CXR: congestive changes have diminished. still fluid with atelectasis or infiltrate at L base. 04/09/19: EKG: NSR, rate 79bpm, RI 208ms*, qtc 486ms 04/09/19: CT chest: interstitial pulm vascular congestion with pleural effusions, and resultant bibasilar compressive atelectasis. bilateral flank subcutaneous edema. cardiomegaly is noted. no discrete infiltrate. nonspecific approx 1.5x1.1cm L breast soft tissue nodule noted adjacent to chest wall. post- surgical changes are noted. follow up mammo with attention to chest wall region suggested with comparison to mammo from 03/23/18. 04/08/19: CXR: worse; progressive congestive and infiltrative changes, with persistently widened mediastinum. 04/08/19: duplex: (-) for DVT Assessment/Plan 89 F PMH HTN, HLD, Left breast cancer, Hypothyroidism, GERD, NIDDM and Multiple CVAs, recently admitted at [facility] for bilateral LE cellulitis (discharged 04/06/19) , who presented with acute HFpEF exacerbation and exacerbation of LE b /l cellulitis. #Acute on chronic HFpEF -lasix increased to 80mg IVP BID today (from qd) -monitor weights, i/o. na control 2g -w/ vasc congestion, b/l effusions -Cardio: Dr. Ly #Chronic LE cellulitis -on unasyn (04/11) -without white count, afebrile -f/u ucx, blood cx (-) thus far -c/w lyrica for neuropathy -ID: Dr. Khanna #MAURICE on CKD -likely w/ cardiorenal syndrome, c/w diuresis -avoid NSAID's -c/t monitor -Renal: Dr. Sequeira #HTN-controlled -hold ABIOLA/ARB d/t renal fnc -c/w hydralazine, lasix, coreg #DM2 -started on levemir 6u Sq HS -will adjust accordingly to SS -placed on diabetic diet -ISS, BGM ACHS #hx multiple CVA -on asa -not on lipitor; f/u lipid panel- ordered #hx L breast CA -c/w letrozole -outpt mammo f/u #F/E/N avoid IVF as with CHF continue to follow lytes dysphagia ground, w/1-2 soft items. +na controlled, diabetic #PPX DVT: hep TID GI: on pepcid #Dispo monitoring on med-surg
--- NOTE | 2019-04-12 15:47 | PN ---
Teaching Attending Note Name of Resident: Kassandra Watson ATTENDING PHYSICIAN STATEMENT I saw and evaluated the patient. I reviewed the resident's note and discussed the case with the resident. I agree with the resident's findings and plan as documented. SUBJECTIVE: Patient reports she feels SOB, especially when eating. She also says she feels bloated and has been burping frequently. OBJECTIVE: Vital Signs Period Temp Pulse Resp BP Sys/Hernandez Pulse Ox Last 24 Hr 97.5 F-98.4 F 73-82 18-20 145-162/59-77 97-97 HEART: S1S2, RRR LUNGS: Clear with decreased BS ABDOMEN: Obese, soft, non-tender, non-distended, normal BS EXTREMITIES: No edema Laboratory Results - last 24 hr 04/10/19 04/11/19 04/11/19 06:30 16:28 21:47 WBC RBC Hgb Hct MCV MCH MCHC RDW Plt Count MPV Sodium Potassium Chloride Carbon Dioxide Anion Gap BUN Creatinine Est GFR (CKD-EPI)AfAm Est GFR (CKD-EPI)NonAf POC Glucometer 241 349 Random Glucose Calcium Phosphorus Magnesium Total Bilirubin AST ALT Alkaline Phosphatase Total Protein Albumin Urine Eosinophils None seen 04/12/19 04/12/19 04/12/19 06:18 06:37 06:37 WBC 12.6 H RBC 2.24 L Hgb 7.4 L Hct 22.6 L MCV 100.8 H MCH 33.1 MCHC 32.9 RDW 17.1 H Plt Count 280 MPV 7.7 Sodium 138 Potassium 3.9 Chloride 105 Carbon Dioxide 25 Anion Gap 8 BUN 51.3 H Creatinine 2.3 H Est GFR (CKD-EPI)AfAm 21.13 Est GFR (CKD-EPI)NonAf 18.23 POC Glucometer 177 Random Glucose 184 H Calcium 8.3 L Phosphorus 5.2 H Magnesium 2.2 Total Bilirubin 0.5 AST 14 L ALT 16 Alkaline Phosphatase 109 Total Protein 6.3 L Albumin 2.6 L Urine Eosinophils 04/12/19 12:22 WBC RBC Hgb Hct MCV MCH MCHC RDW Plt Count MPV Sodium Potassium Chloride Carbon Dioxide Anion Gap BUN Creatinine Est GFR (CKD-EPI)AfAm Est GFR (CKD-EPI)NonAf POC Glucometer 289 Random Glucose Calcium Phosphorus Magnesium Total Bilirubin AST ALT Alkaline Phosphatase Total Protein Albumin Urine Eosinophils Current Medications Generic Name Dose Route Start Last Admin Trade Name Freq PRN Reason Stop Dose Admin Acetaminophen 650 mg 04/11/19 13:59 04/12/19 06:28 Tylenol - PO 650 mg Q6H PRN Administration PAIN Aspirin 81 mg 04/12/19 10:00 04/12/19 10:08 Asa - PO 81 mg DAILY [facility] Administration Carvedilol 25 mg 04/11/19 22:00 04/12/19 10:08 Coreg - PO 25 mg BID [facility] Administration Famotidine 20 mg 04/12/19 10:00 04/12/19 10:10 Pepcid - PO 20 mg DAILY [facility] Administration Furosemide 80 mg 04/12/19 16:00 Lasix Injection - IVPUSH BIDLASIX [facility] Heparin Sodium (Porcine) 5,000 unit 04/11/19 14:00 04/12/19 14:28 Heparin - SQ 5,000 unit TID [facility] Administration Hydralazine HCl 20 mg 04/11/19 14:00 04/12/19 14:28 Apresoline - PO 20 mg TID [facility] Administration Ampicillin Sodium/Sulbactam 100 mls @ 200 mls/hr 04/11/19 22:00 04/12/19 10: 09 Sodium 1.5 gm/ Sodium Chloride IVPB 200 mls/hr BID [facility] Administration Insulin Aspart 1 vial 04/11/19 16:30 04/12/19 12:26 Novolog Vial Sliding Scale - SQ 6 units ACHS [facility] Administration Protocol Insulin Detemir 6 units 04/12/19 22:00 Levemir Vial SQ HS [facility] Letrozole 2.5 mg 04/12/19 10:00 04/12/19 10:09 Femara - PO 2.5 mg DAILY [facility] Administration Levothyroxine Sodium 112 mcg 04/12/19 07:00 04/12/19 06:21 Synthroid - PO 112 mcg DAILY@0700 [facility] Administration Multivitamins/Minerals/Vitamin C 1 tab 04/12/19 10:00 04/12/19 10:08 Tab-A-Vit - PO 1 tab DAILY [facility] Administration Pregabalin 25 mg 04/11/19 22:00 04/12/19 10:08 Lyrica - PO 25 mg BID [facility] Administration ASSESSMENT AND PLAN: This is an 89 year old woman with a history of HTN, hyperlipidemia, type 2 DM, CVAs, hypothyroidism, GERD, breast cancer who presented to the ED with SOB. 1. Acute on chronic diastolic heart failure - Continue Lasix IV - Monitor I&O, weight 2. Cellulitis of legs - Improving - Continue Unasyn (day 2) 3. 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 HTN - Cozaar held secondary to MAURICE - Continue Coreg, Hydralazine, Lasix 6. Type 2 DM - Continue Levemir, Novolog sliding scale 7. Hyperlipidemia 8. Hypothyroidism - Continue Synthroid 9. GERD - Continue Pepcid 10. History of CVAs - Continue aspirin 11. History of breast cancer, lumpectomy and RT - Continue Femara
[2019-04-12] MEDS: FUROSEMIDE 40 MG/4 ML INJECTABLE VIAL IVPUSH SCH (16:55)
[2019-04-12 17:53] LABS: CHOLESTEROL 136 mg/dL (50-200); HDL CHOLESTEROL 39 mg/dL (40-60); LDL CHOLESTEROL (ONLY SJRH) 71 mg/dL (5-100); TRIGLYCERIDES 189 mg/dL (0-150)
[2019-04-12] MEDS ORDERED: INSULIN (LEVEMIR) 100 UNITS/ML UNITS SQ SCH (22:00)
[2019-04-13] MEDS: ACETAMINOPHEN 325 MG TABLET (FP) PO PRN ×2 (02:13→11:28)
[2019-04-13] MEDS: HEPARIN NA (PORCINE) 5,000 UNITS/ML 1ML VIAL SQ SCH ×3 (06:26→21:27)
[2019-04-13] MEDS: FUROSEMIDE 40 MG/4 ML INJECTABLE VIAL IVPUSH SCH ×2 (06:26→15:09)
[2019-04-13] MEDS: LEVOTHYROXINE NA 112 MCG TABLET (FP) PO SCH (06:26)
[2019-04-13] MEDS: hydrALAZINE HCL 10 MG TABLET PO SCH ×3 (06:27→21:25)
[2019-04-13] MEDS: INSULIN SLIDING SCALE (NOVOLOG) 1 VIAL SQ SCH ×4 (06:35→21:29)
[2019-04-13] MEDS ORDERED: INSULIN (LEVEMIR) 100 UNITS/ML UNITS SQ SCH (07:46)
[2019-04-13 08:07] LABS: BASO % 6.9 % (0-2.0); EOS % 9.4 % (0-4.5); HEMOGLOBIN 7.2 GM/dL (10.7-15.3); LYMPH % 11.2 % (8-40); MCHC 32.6 g/dl (32.0-36.0); MEAN CELL VOLUME 101.3 fl (80-96); MEAN PLT VOLUME 7.9 fl (7.5-11.1); MONO % 10.5 % (3.8-10.2); PLATELET COUNT 283 K/MM3 (134-434); RBC 2.17 M/mm3 (3.60-5.2); RDW 17.1 % (11.6-15.6); WHITE BLOOD COUNT 12.1 K/mm3 (4.0-10.0)
[2019-04-13 08:30] LABS: BLOOD UREA NITROGEN 53.1 mg/dL (7-18); CALCIUM 8.3 mg/dL (8.5-10.1); CREATININE 2.4 mg/dL (0.55-1.3); MAGNESIUM 2.3 mg/dL (1.8-2.4); PHOSPHOROUS 5.8 mg/dL (2.5-4.9); POTASSIUM 3.7 mmol/L (3.5-5.1)
[2019-04-13] MEDS ORDERED: AMPICILLIN NA/SULBACTAM NA 1.5 GM VIAL ONE ×2 (09:00→21:12)
[2019-04-13] MEDS ORDERED: SODIUM CHLORIDE 100 ML IVPB ONE ×2 (09:01→21:13)
[2019-04-13] MEDS: AMPICILLIN NA/SULBACTAM NA 1.5 GM in SODIUM CHLORIDE 100 ML IVPB SCH ×2 (09:18→21:26)
[2019-04-13] MEDS: MULTIVITAMINS (DAILY MVI) TABLET (FP) PO SCH (09:18)
[2019-04-13] MEDS: CARVEDILOL 25 MG TABLET (FP) PO SCH ×2 (09:19→21:27)
[2019-04-13] MEDS: PREGABALIN 25 MG CAPSULE PO SCH ×2 (09:19→21:25)
[2019-04-13] MEDS: LETROZOLE 2.5 MG TABLET (FP) PO SCH (09:19)
[2019-04-13] MEDS: ASPIRIN 81 MG CHEWABLE TABLETS PO SCH (09:19)
[2019-04-13] MEDS: FAMOTIDINE 20 MG TABLET PO SCH (09:20)
--- NOTE | 2019-04-13 11:08 | PN ---
Progress Note (short form) - Note Progress Note: Breathing feels better today. Still with some CHAIDEZ, but improving. No CP. Intake & Output 04/10/19 04/11/19 04/12/19 04/13/19 23:59 23:59 23:59 23:59 Intake Total 750 1300 400 Output Total 651 Balance 750 1300 -251 Weight 202 lb 3.2 oz 199 lb 2 oz Last Vital Signs Temp Pulse Resp BP Pulse Ox 97.7 F 77 18 146/64 100 04/13/19 09:32 04/13/19 09:32 04/13/19 09:32 04/13/19 09:32 04/12/19 22:00 Active Medications Acetaminophen (Tylenol -) 650 mg PO Q6H PRN PRN Reason: PAIN Last Admin: 04/13/19 02:13 Dose: 650 mg Aspirin (Asa -) 81 mg PO DAILY [facility] Last Admin: 04/13/19 09:19 Dose: 81 mg Carvedilol (Coreg -) 25 mg PO BID [facility] Last Admin: 04/13/19 09:19 Dose: 25 mg Famotidine (Pepcid -) 20 mg PO DAILY [facility] Last Admin: 04/13/19 09:20 Dose: 20 mg Furosemide (Lasix Injection -) 80 mg IVPUSH BIDLASIX [facility] Last Admin: 04/13/19 06:26 Dose: 80 mg Heparin Sodium (Porcine) (Heparin -) 5,000 unit SQ TID [facility] Last Admin: 04/13/19 06:26 Dose: 5,000 unit Hydralazine HCl (Apresoline -) 20 mg PO TID [facility] Last Admin: 04/13/19 06:27 Dose: 20 mg Ampicillin Sodium/Sulbactam (Sodium 1.5 gm/ Sodium Chloride) 100 mls @ 200 mls/ hr IVPB BID [facility] Last Admin: 04/13/19 09:18 Dose: 200 mls/hr Insulin Aspart (Novolog Vial Sliding Scale -) 1 vial SQ [facility]; Protocol Last Admin: 04/13/19 06:35 Dose: Not Given Insulin Detemir (Levemir Vial) 8 units SQ HS [facility] Letrozole (Femara -) 2.5 mg PO DAILY [facility] Last Admin: 04/13/19 09:19 Dose: 2.5 mg Levothyroxine Sodium (Synthroid -) 112 mcg PO DAILY@0700 [facility] Last Admin: 04/13/19 06:26 Dose: 112 mcg Multivitamins/Minerals/Vitamin C (Tab-A-Vit -) 1 tab PO DAILY [facility] Last Admin: 04/13/19 09:18 Dose: 1 tab Pregabalin (Lyrica -) 25 mg PO BID [facility] Last Admin: 04/13/19 09:19 Dose: 25 mg Constitutional: Yes: Awake and alert, NAD Cardiovascular: Yes: Regular Rate and Rhythm, JVD, S1, S2. No: Gallop, Murmur Respiratory: Yes: Scattered bibasilar rhonchi and rales. No: Accessory Muscle Use Extremities: No: Cold Edema: Yes (chronic skin changes) Neurological: Yes: Alert, Oriented Psychiatric: No: Agitated Labs: Laboratory Results - last 24 hr 04/12/19 04/12/19 04/12/19 12:22 16:50 17:13 WBC RBC Hgb Hct MCV MCH MCHC RDW Plt Count MPV Absolute Neuts (auto) Neutrophils % Lymphocytes % Monocytes % Eosinophils % Basophils % Nucleated RBC % Sodium Potassium Chloride Carbon Dioxide Anion Gap BUN Creatinine Est GFR (CKD-EPI)AfAm Est GFR (CKD-EPI)NonAf POC Glucometer 289 237 Random Glucose Calcium Phosphorus Magnesium Triglycerides 189 H Cholesterol 136 Total LDL Cholesterol 71 HDL Cholesterol 39 L 04/12/19 04/13/19 04/13/19 22:44 06:32 06:55 WBC RBC Hgb Hct MCV MCH MCHC RDW Plt Count MPV Absolute Neuts (auto) Neutrophils % Lymphocytes % Monocytes % Eosinophils % Basophils % Nucleated RBC % Sodium 137 Potassium 3.7 Chloride 103 Carbon Dioxide 25 Anion Gap 9 BUN 53.1 H Creatinine 2.4 H Est GFR (CKD-EPI)AfAm 20.07 Est GFR (CKD-EPI)NonAf 17.32 POC Glucometer 320 141 Random Glucose 140 H Calcium 8.3 L Phosphorus 5.8 H Magnesium 2.3 Triglycerides Cholesterol Total LDL Cholesterol HDL Cholesterol 04/13/19 06:55 WBC 12.1 H RBC 2.17 L Hgb 7.2 L Hct 22.0 L MCV 101.3 H MCH 33.0 MCHC 32.6 RDW 17.1 H Plt Count 283 MPV 7.9 Absolute Neuts (auto) 7.5 Neutrophils % 62.0 Lymphocytes % 11.2 Monocytes % 10.5 H Eosinophils % 9.4 H Basophils % 6.9 H* Nucleated RBC % 0 Sodium Potassium Chloride Carbon Dioxide Anion Gap BUN Creatinine Est GFR (CKD-EPI)AfAm Est GFR (CKD-EPI)NonAf POC Glucometer Random Glucose Calcium Phosphorus Magnesium Triglycerides Cholesterol Total LDL Cholesterol HDL Cholesterol Problem List - Problems (1) Acute kidney injury superimposed on CKD Code(s): N17.9 - ACUTE KIDNEY FAILURE, UNSPECIFIED; N18.9 - CHRONIC KIDNEY DISEASE, UNSPECIFIED (2) Anemia Code(s): D64.9 - ANEMIA, UNSPECIFIED Qualifiers: Anemia type: unspecified type Qualified Code(s): D64.9 - Anemia, unspecified (3) Bilateral leg edema Code(s): R60.0 - LOCALIZED EDEMA (4) Hypothyroid Code(s): E03.9 - HYPOTHYROIDISM, UNSPECIFIED Qualifiers: Hypothyroidism type: unspecified Qualified Code(s): E03.9 - Hypothyroidism , unspecified (5) Pulmonary vascular congestion Code(s): R09.89 - OTH SYMPTOMS AND SIGNS INVOLVING THE CIRC AND RESP SYSTEMS (6) Shortness of breath Code(s): R06.02 - SHORTNESS OF BREATH (7) Breast cancer Code(s): C50.919 - MALIGNANT NEOPLASM OF UNSP SITE OF UNSPECIFIED FEMALE BREAST (8) Breast cancer, left Code(s): C50.912 - MALIGNANT NEOPLASM OF UNSPECIFIED SITE OF LEFT FEMALE BREAST (9) Diabetes Code(s): E11.9 - TYPE 2 DIABETES MELLITUS WITHOUT COMPLICATIONS Qualifiers: Diabetes mellitus type: type 2 (10) History of CVA with residual deficit Code(s): I69.30 - UNSPECIFIED SEQUELAE OF CEREBRAL INFARCTION (11) Lower extremity cellulitis Code(s): L03.119 - CELLULITIS OF UNSPECIFIED PART OF LIMB (12) Acute diastolic (congestive) heart failure Code(s): I50.31 - ACUTE DIASTOLIC (CONGESTIVE) HEART FAILURE IMP DYSPNEA DUE TO ACUTE DIASTOLIC HF LOWER EXT EDEMA ACUTE ON CHRONIC KIDNEY DISEASE H/O LEFT BREAST CA S/P LUMPECTOMY,RT 2015 ANEMIA 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
--- NOTE | 2019-04-13 12:23 | PN ---
Progress Note (short form) - Note Progress Note: s: sob, edema improving. no chest pain, palps, dizziness Current Medications Acetaminophen (Tylenol -) 650 mg PO Q6H PRN PRN Reason: PAIN Last Admin: 04/13/19 11:28 Dose: 650 mg Aspirin (Asa -) 81 mg PO DAILY [facility] Last Admin: 04/13/19 09:19 Dose: 81 mg Carvedilol (Coreg -) 25 mg PO BID [facility] Last Admin: 04/13/19 09:19 Dose: 25 mg Famotidine (Pepcid -) 20 mg PO DAILY [facility] Last Admin: 04/13/19 09:20 Dose: 20 mg Furosemide (Lasix Injection -) 80 mg IVPUSH BIDLASIX [facility] Last Admin: 04/13/19 06:26 Dose: 80 mg Heparin Sodium (Porcine) (Heparin -) 5,000 unit SQ TID [facility] Last Admin: 04/13/19 06:26 Dose: 5,000 unit Hydralazine HCl (Apresoline -) 20 mg PO TID [facility] Last Admin: 04/13/19 06:27 Dose: 20 mg Ampicillin Sodium/Sulbactam (Sodium 1.5 gm/ Sodium Chloride) 100 mls @ 200 mls/ hr IVPB BID [facility] Last Admin: 04/13/19 09:18 Dose: 200 mls/hr Insulin Aspart (Novolog Vial Sliding Scale -) 1 vial SQ [facility]; Protocol Last Admin: 04/13/19 11:24 Dose: 6 units Insulin Detemir (Levemir Vial) 8 units SQ HS [facility] Letrozole (Femara -) 2.5 mg PO DAILY [facility] Last Admin: 04/13/19 09:19 Dose: 2.5 mg Levothyroxine Sodium (Synthroid -) 112 mcg PO DAILY@0700 [facility] Last Admin: 04/13/19 06:26 Dose: 112 mcg Multivitamins/Minerals/Vitamin C (Tab-A-Vit -) 1 tab PO DAILY [facility] Last Admin: 04/13/19 09:18 Dose: 1 tab Pregabalin (Lyrica -) 25 mg PO BID [facility] Last Admin: 04/13/19 09:19 Dose: 25 mg Vital Signs Period Temp Pulse Resp BP Sys/Hernandez Pulse Ox Last 24 Hr 97.4 F-98.4 F 73-80 18-18 137-150/52-67 100-100 Constitutional: Yes: Well Nourished, No Distress, Calm Cardiovascular: Yes: Regular Rate and Rhythm, JVD, S1, S2. No: Gallop, Murmur Respiratory: Yes: Regular, CTA Bilaterally, Diminished (L base). No: Accessory Muscle Use, Rales, Wheezes Extremities: No: Cold Edema: No Neurological: Yes: Alert, Oriented Psychiatric: No: Agitated Assessment/Plan EKG: sinus,nl intervals, no ischemic changes CXR: + congestive changes echo 03/2019 nl LV function, mild MR, mild TR, PASP at least 49 mmHg acute diastolic heart failure exacerbation - recent echo nl LV function, mild pulm HTN - CT chest bilat effusions and vascular congestion pattern, with + flank subcutaneous edema. - receiving iv lasix 80 BID since yesterday wt 202-->199-->197 today(per pt, not recorded in [facility]) - edema, sob improving. cont lasix 80 mg IV BID lower ext cellulitis - manage per ID, primary HTN - bp was not controlled, hydral added - much improved, reasonable control. same meds - cont aggressive diuresis MAURICE on CKD - recent creat 2.2-2.4 - renal fxn continues to improve gradually with diuresis. likely cardiorenal syndrome - renal following
--- NOTE | 2019-04-13 12:51 | PN ---
Progress Note, Physician History of Present Illness: stable improving - Current Medication List Current Medications: Active Medications Acetaminophen (Tylenol -) 650 mg PO Q6H PRN PRN Reason: PAIN Last Admin: 04/13/19 11:28 Dose: 650 mg Aspirin (Asa -) 81 mg PO DAILY [facility] Last Admin: 04/13/19 09:19 Dose: 81 mg Carvedilol (Coreg -) 25 mg PO BID [facility] Last Admin: 04/13/19 09:19 Dose: 25 mg Famotidine (Pepcid -) 20 mg PO DAILY [facility] Last Admin: 04/13/19 09:20 Dose: 20 mg Furosemide (Lasix Injection -) 80 mg IVPUSH BIDLASIX [facility] Last Admin: 04/13/19 06:26 Dose: 80 mg Heparin Sodium (Porcine) (Heparin -) 5,000 unit SQ TID [facility] Last Admin: 04/13/19 06:26 Dose: 5,000 unit Hydralazine HCl (Apresoline -) 20 mg PO TID [facility] Last Admin: 04/13/19 06:27 Dose: 20 mg Ampicillin Sodium/Sulbactam (Sodium 1.5 gm/ Sodium Chloride) 100 mls @ 200 mls/ hr IVPB BID [facility] Last Admin: 04/13/19 09:18 Dose: 200 mls/hr Insulin Aspart (Novolog Vial Sliding Scale -) 1 vial SQ [facility]; Protocol Last Admin: 04/13/19 11:24 Dose: 6 units Insulin Detemir (Levemir Vial) 8 units SQ HS [facility] Letrozole (Femara -) 2.5 mg PO DAILY [facility] Last Admin: 04/13/19 09:19 Dose: 2.5 mg Levothyroxine Sodium (Synthroid -) 112 mcg PO DAILY@0700 [facility] Last Admin: 04/13/19 06:26 Dose: 112 mcg Multivitamins/Minerals/Vitamin C (Tab-A-Vit -) 1 tab PO DAILY [facility] Last Admin: 04/13/19 09:18 Dose: 1 tab Pregabalin (Lyrica -) 25 mg PO BID [facility] Last Admin: 04/13/19 09:19 Dose: 25 mg - Objective Vital Signs: Vital Signs Temperature 97.7 F 04/13/19 09:32 Pulse Rate 77 04/13/19 09:32 Respiratory Rate 18 04/13/19 09:32 Blood Pressure 146/64 04/13/19 09:32 O2 Sat by Pulse Oximetry (%) 100 04/12/19 22:00 Constitutional: Yes: Calm, Mild Distress Cardiovascular: Yes: S1, S2 Respiratory: Yes: Regular, CTA Bilaterally Gastrointestinal: Yes: Normal Bowel Sounds, Soft Musculoskeletal: Yes: WNL Extremities: Yes: Other Neurological: Yes: Alert, Oriented Psychiatric: Yes: Alert, Oriented Labs: CBC, BMP 04/13/19 06:55 04/13/19 06:55 INR, PTT INR 1.01 (0.83-1.09) 04/08/19 22:30 Assessment/Plan Problem List - Problems (1) Acute diastolic (congestive) heart failure Code(s): I50.31 - ACUTE DIASTOLIC (CONGESTIVE) HEART FAILURE (2) Acute kidney injury superimposed on CKD Code(s): N17.9 - ACUTE KIDNEY FAILURE, UNSPECIFIED; N18.9 - CHRONIC KIDNEY DISEASE, UNSPECIFIED (3) Anemia Code(s): D64.9 - ANEMIA, UNSPECIFIED Qualifiers: Anemia type: unspecified type Qualified Code(s): D64.9 - Anemia, unspecified (4) Bilateral leg edema Code(s): R60.0 - LOCALIZED EDEMA (5) Hypothyroid Code(s): E03.9 - HYPOTHYROIDISM, UNSPECIFIED Qualifiers: Hypothyroidism type: unspecified Qualified Code(s): E03.9 - Hypothyroidism , unspecified (6) Shortness of breath Code(s): R06.02 - SHORTNESS OF BREATH (7) Breast cancer, left Code(s): C50.912 - MALIGNANT NEOPLASM OF UNSPECIFIED SITE OF LEFT FEMALE BREAST (8) Diabetes Code(s): E11.9 - TYPE 2 DIABETES MELLITUS WITHOUT COMPLICATIONS Qualifiers: Diabetes mellitus type: type 2 (9) GERD (gastroesophageal reflux disease) Code(s): K21.9 - GASTRO-ESOPHAGEAL REFLUX DISEASE WITHOUT ESOPHAGITIS (10) HTN (hypertension) Code(s): I10 - ESSENTIAL (PRIMARY) HYPERTENSION (11) History of CVA with residual deficit Code(s): I69.30 - UNSPECIFIED SEQUELAE OF CEREBRAL INFARCTION (12) Lower extremity cellulitis Code(s): L03.119 - CELLULITIS OF UNSPECIFIED PART OF LIMB Assessment/Plan 89 y.o. female with PMH of DM, CKD, HTN, HLD, anemia, Lt breast CA s/p lumpectomy/RT, hypothyroidism, CVA, GBS, remote history of meningitis presents with complaints of worsening SOB and b/l LE edema that began several days [employer] after recent hospital discharge. Treated for b/l LE cellulitis with some improvement. Noted to have leukocytosis, LE erythema, worsening renal function and anemia b/l LE cellulitis Leukocytosis SOB b/l LE edema Acute diastolic HF Anemia Acute on chronic RF DM HTN Hx of Lt Breast CA Hypothyroidism Hx of CVAs plan continue current mgmt abx monitor wbc elevation of the leg
[2019-04-13 14:37] LABS: PLATELET ESTIMATE ADEQUATE
--- NOTE | 2019-04-13 15:00 | PN ---
Progress Note (short form) - Note Progress Note: Hospitalist Medicine Improved SOB with eating. Appears more comfortable. off Nc 02 per nursing Vitals 04/13/19 04/13/19 09:00 09:32 Temperature 97.7 F Pulse Rate 77 Respiratory 18 Rate Blood Pressure 146/64 O2 Sat by Pulse 100 Oximetry (%) Oxygen Flow 3 Rate Physical Exam general: resting in bed, in NAD heent: NCAT neck: supple cardio: S1, S2, RRR. no r/m/g pulm: +scattered rhonchi. no accessory m usage abdomen: nontender,nondistended LE: no edema, +chronic changes. neuro: Consignee 2-12 grossly intact Laboratory Tests 04/12/19 04/13/19 04/13/19 16:50 06:55 06:55 WBC 12.1 H Hgb 7.2 L Hct 22.0 L Plt Count 283 Basophils % 6.9 H* Sodium 137 Potassium 3.7 Chloride 103 Carbon Dioxide 25 Anion Gap 9 BUN 53.1 H Creatinine 2.4 H Random Glucose 140 H Triglycerides 189 H Cholesterol 136 Total LDL Cholesterol 71 HDL Cholesterol 39 L Microbiology 04/09/19 01:55 Urine - Urine Clean Catch Urine Culture - Final NO GROWTH OBTAINED 04/08/19 22:40 Blood - Peripheral Venous Blood Culture - Preliminary NO GROWTH OBTAINED AFTER 72 HOURS, INCUBATION TO CONTINUE FOR 2 DAYS. 04/08/19 22:15 Blood - Peripheral Venous Blood Culture - Preliminary NO GROWTH OBTAINED AFTER 72 HOURS, INCUBATION TO CONTINUE FOR 2 DAYS. Imaging 04/12/19: CXR: congestive changes have diminished. still fluid with atelectasis or infiltrate at L base. 04/09/19: EKG: NSR, rate 79bpm, MO 208ms*, qtc 486ms 04/09/19: CT chest: interstitial pulm vascular congestion with pleural effusions, and resultant bibasilar compressive atelectasis. bilateral flank subcutaneous edema. cardiomegaly is noted. no discrete infiltrate. nonspecific approx 1.5x1.1cm L breast soft tissue nodule noted adjacent to chest wall. post- surgical changes are noted. follow up mammo with attention to chest wall region suggested with comparison to mammo from 03/23/18. 04/08/19: CXR: worse; progressive congestive and infiltrative changes, with persistently widened mediastinum. 1/2/20: duplex: (-) for DVT Assessment/Plan 89 F PMH HTN, HLD, Left breast cancer, Hypothyroidism, GERD, NIDDM and Multiple CVAs, recently admitted at [place] for bilateral LE cellulitis (discharged 04/06/19) , who presented with acute HFpEF exacerbation and exacerbation of LE b /l cellulitis. #Acute on chronic HFpEF -lasix increased to 80mg IVP BID -sx improved -monitor weights, i/o. na control 2g -Cardio: Dr. Ly #Chronic LE cellulitis -on unasyn (04/11) -without white count, afebrile -f/u ucx, blood cx (-) thus far -c/w lyrica for neuropathy -ID: Dr. Khanna #MAURICE on CKD -likely w/ cardiorenal syndrome, c/w diuresis -avoid NSAID's -c/t monitor -Renal: Dr. Sequeira #HTN-controlled -c/w hydralazine, lasix, coreg -restarted on losartan #DM2 -levemir uptitrated to 8u sq HS -placed on diabetic diet -ISS, BGM ACHS #hx multiple CVA -on asa -not on lipitor; out of age bracket for ASCVD #hx L breast CA -c/w letrozole -outpt mammo f/u #F/E/N avoid IVF as with CHF continue to follow lytes soft diet. +na controlled, diabetic #PPX DVT: hep TID GI: on pepcid #Dispo monitoring on med-surg
--- NOTE | 2019-04-13 15:01 | PN ---
Progress Note, Physician History of Present Illness: Pt seen and examined at bedside. She is awake and alert. She feels that her breathing is a little bit better today. - Current Medication List Current Medications: Active Medications Acetaminophen (Tylenol -) 650 mg PO Q6H PRN PRN Reason: PAIN Last Admin: 04/13/19 11:28 Dose: 650 mg Aspirin (Asa -) 81 mg PO DAILY [facility] Last Admin: 04/13/19 09:19 Dose: 81 mg Carvedilol (Coreg -) 25 mg PO BID [facility] Last Admin: 04/13/19 09:19 Dose: 25 mg Famotidine (Pepcid -) 20 mg PO DAILY [facility] Last Admin: 04/13/19 09:20 Dose: 20 mg Furosemide (Lasix Injection -) 80 mg IVPUSH BIDLASIX [facility] Last Admin: 04/13/19 06:26 Dose: 80 mg Heparin Sodium (Porcine) (Heparin -) 5,000 unit SQ TID [facility] Last Admin: 04/13/19 06:26 Dose: 5,000 unit Hydralazine HCl (Apresoline -) 20 mg PO TID [facility] Last Admin: 04/13/19 06:27 Dose: 20 mg Ampicillin Sodium/Sulbactam (Sodium 1.5 gm/ Sodium Chloride) 100 mls @ 200 mls/ hr IVPB BID [facility] Last Admin: 04/13/19 09:18 Dose: 200 mls/hr Insulin Aspart (Novolog Vial Sliding Scale -) 1 vial SQ [facility]; Protocol Last Admin: 04/13/19 11:24 Dose: 6 units Insulin Detemir (Levemir Vial) 8 units SQ HS [facility] Letrozole (Femara -) 2.5 mg PO DAILY [facility] Last Admin: 04/13/19 09:19 Dose: 2.5 mg Levothyroxine Sodium (Synthroid -) 112 mcg PO DAILY@0700 [facility] Last Admin: 04/13/19 06:26 Dose: 112 mcg Multivitamins/Minerals/Vitamin C (Tab-A-Vit -) 1 tab PO DAILY [facility] Last Admin: 04/13/19 09:18 Dose: 1 tab Pregabalin (Lyrica -) 25 mg PO BID [facility] Last Admin: 04/13/19 09:19 Dose: 25 mg - Objective Vital Signs: Vital Signs Temperature 97.7 F 04/13/19 09:32 Pulse Rate 77 04/13/19 09:32 Respiratory Rate 18 04/13/19 09:32 Blood Pressure 146/64 04/13/19 09:32 O2 Sat by Pulse Oximetry (%) 100 04/13/19 09:00 Constitutional: Yes: Calm Eyes: Yes: Conjunctiva Clear HENT: Yes: Atraumatic Neck: Yes: Supple Cardiovascular: Yes: S1, S2 Respiratory: Yes: CTA Bilaterally, On Nasal O2 Gastrointestinal: Yes: Soft Genitourinary: Yes: WNL Musculoskeletal: Yes: WNL Edema: Yes Edema: LLE: 1+, RLE: 1+ Neurological: Yes: Oriented Psychiatric: Yes: Oriented Labs: CBC, BMP 04/13/19 06:55 04/13/19 06:55 INR, PTT INR 1.01 (0.83-1.09) 04/08/19 22:30 Assessment/Plan Current Medications Generic Name Dose Route Start Last Admin Trade Name Freq PRN Reason Stop Dose Admin Acetaminophen 650 mg 04/11/19 13:59 04/13/19 11:28 Tylenol - PO 650 mg Q6H PRN Administration PAIN Aspirin 81 mg 04/12/19 10:00 04/13/19 09:19 Asa - PO 81 mg DAILY [facility] Administration Carvedilol 25 mg 04/11/19 22:00 04/13/19 09:19 Coreg - PO 25 mg BID [facility] Administration Famotidine 20 mg 04/12/19 10:00 04/13/19 09:20 Pepcid - PO 20 mg DAILY [facility] Administration Furosemide 80 mg 04/12/19 16:00 04/13/19 06:26 Lasix Injection - IVPUSH 80 mg BIDLASIX [facility] Administration Heparin Sodium (Porcine) 5,000 unit 04/11/19 14:00 04/13/19 06:26 Heparin - SQ 5,000 unit TID [facility] Administration Hydralazine HCl 20 mg 04/11/19 14:00 04/13/19 06:27 Apresoline - PO 20 mg TID [facility] Administration Ampicillin Sodium/Sulbactam 100 mls @ 200 mls/hr 04/11/19 22:00 04/13/19 09: 18 Sodium 1.5 gm/ Sodium Chloride IVPB 200 mls/hr BID [facility] Administration Insulin Aspart 1 vial 04/11/19 16:30 01/07/20 11:24 Novolog Vial Sliding Scale - SQ 6 units ACHS [facility] Administration Protocol Insulin Detemir 8 units 04/13/19 07:46 Levemir Vial SQ HS [facility] Letrozole 2.5 mg 04/12/19 10:00 04/13/19 09:19 Femara - PO 2.5 mg DAILY [facility] Administration Levothyroxine Sodium 112 mcg 04/12/19 07:00 04/13/19 06:26 Synthroid - PO 112 mcg DAILY@0700 [facility] Administration Multivitamins/Minerals/Vitamin C 1 tab 04/12/19 10:00 04/13/19 09:18 Tab-A-Vit - PO 1 tab DAILY [facility] Administration Pregabalin 25 mg 04/11/19 22:00 04/13/19 09:19 Lyrica - PO 25 mg BID [facility] Administration Impression 1. proteinuria 2. hypothyroid 3. HTN 4. DM 5. fluid overload 6. breast cancer 7. MAURICE 8. CKD Plan - cont with lasix - monitor renal function - volume status improving - restart losartan as it will help with proteinuria Dr Sequeira
[2019-04-13] MEDS: LOSARTAN POTASSIUM 50 MG TABLET (FP) PO SCH (15:27)
--- NOTE | 2019-04-13 17:38 | PN ---
Teaching Attending Note Name of Resident: Kassandra Watson ATTENDING PHYSICIAN STATEMENT I saw and evaluated the patient. I reviewed the resident's note and discussed the case with the resident. I agree with the resident's findings and plan as documented. SUBJECTIVE: Patient feels SOB with exertion. OBJECTIVE: Vital Signs Period Temp Pulse Resp BP Sys/Hernandez Pulse Ox Last 24 Hr 97.4 F-98.4 F 73-84 18-18 126-150/52-67 100-100 HEART: S1S2, RRR LUNGS: Few rhonchi ABDOMEN: Obese, soft, non-tender, non-distended, normal BS EXTREMITIES: No edema Laboratory Results - last 24 hr 04/12/19 04/12/19 04/13/19 16:50 22:44 06:32 WBC RBC Hgb Hct MCV MCH MCHC RDW Plt Count MPV Absolute Neuts (auto) Neutrophils % Neutrophils % (Manual) Band Neutrophils % Lymphocytes % Lymphocytes % (Manual) Monocytes % Monocytes % (Manual) Eosinophils % Eosinophils % (Manual) Basophils % Basophils % (Manual) Myelocytes % (Man) Nucleated RBC % Metamyelocytes Platelet Estimate Sodium Potassium Chloride Carbon Dioxide Anion Gap BUN Creatinine Est GFR (CKD-EPI)AfAm Est GFR (CKD-EPI)NonAf POC Glucometer 320 141 Random Glucose Calcium Phosphorus Magnesium Triglycerides 189 H Cholesterol 136 Total LDL Cholesterol 71 HDL Cholesterol 39 L 04/13/19 04/13/19 04/13/19 06:55 06:55 11:15 WBC 12.1 H RBC 2.17 L Hgb 7.2 L Hct 22.0 L MCV 101.3 H MCH 33.0 MCHC 32.6 RDW 17.1 H Plt Count 283 MPV 7.9 Absolute Neuts (auto) 7.5 Neutrophils % 62.0 Neutrophils % (Manual) 50.0 Band Neutrophils % 5.0 Lymphocytes % 11.2 Lymphocytes % (Manual) 5.0 L D Monocytes % 10.5 H Monocytes % (Manual) 14 H Eosinophils % 9.4 H Eosinophils % (Manual) 7.0 H Basophils % 6.9 H* Basophils % (Manual) 1.0 D Myelocytes % (Man) 10 H D Nucleated RBC % 0 Metamyelocytes 3 H D Platelet Estimate Adequate Sodium 137 Potassium 3.7 Chloride 103 Carbon Dioxide 25 Anion Gap 9 BUN 53.1 H Creatinine 2.4 H Est GFR (CKD-EPI)AfAm 20.07 Est GFR (CKD-EPI)NonAf 17.32 POC Glucometer 255 Random Glucose 140 H Calcium 8.3 L Phosphorus 5.8 H Magnesium 2.3 Triglycerides Cholesterol Total LDL Cholesterol HDL Cholesterol 04/13/19 16:23 WBC RBC Hgb Hct MCV MCH MCHC RDW Plt Count MPV Absolute Neuts (auto) Neutrophils % Neutrophils % (Manual) Band Neutrophils % Lymphocytes % Lymphocytes % (Manual) Monocytes % Monocytes % (Manual) Eosinophils % Eosinophils % (Manual) Basophils % Basophils % (Manual) Myelocytes % (Man) Nucleated RBC % Metamyelocytes Platelet Estimate Sodium Potassium Chloride Carbon Dioxide Anion Gap BUN Creatinine Est GFR (CKD-EPI)AfAm Est GFR (CKD-EPI)NonAf POC Glucometer 295 Random Glucose Calcium Phosphorus Magnesium Triglycerides Cholesterol Total LDL Cholesterol HDL Cholesterol Current Medications Generic Name Dose Route Start Last Admin Trade Name Freq PRN Reason Stop Dose Admin Acetaminophen 650 mg 04/11/19 13:59 04/13/19 11:28 Tylenol - PO 650 mg Q6H PRN Administration PAIN Aspirin 81 mg 04/12/19 10:00 04/13/19 09:19 Asa - PO 81 mg DAILY [facility] Administration Carvedilol 25 mg 04/11/19 22:00 04/13/19 09:19 Coreg - PO 25 mg BID [facility] Administration Famotidine 20 mg 04/12/19 10:00 04/13/19 09:20 Pepcid - PO 20 mg DAILY [facility] Administration Furosemide 80 mg 04/12/19 16:00 04/13/19 15:09 Lasix Injection - IVPUSH 80 mg BIDLASIX [facility] Administration Heparin Sodium (Porcine) 5,000 unit 04/11/19 14:00 04/13/19 15:10 Heparin - SQ 5,000 unit TID [facility] Administration Hydralazine HCl 20 mg 04/11/19 14:00 04/13/19 15:09 Apresoline - PO 20 mg TID [facility] Administration Ampicillin Sodium/Sulbactam 100 mls @ 200 mls/hr 04/11/19 22:00 04/13/19 09: 18 Sodium 1.5 gm/ Sodium Chloride IVPB 200 mls/hr BID [facility] Administration Insulin Aspart 1 vial 04/11/19 16:30 04/13/19 16:28 Novolog Vial Sliding Scale - SQ 6 units ACHS [facility] Administration Protocol Insulin Detemir 8 units 04/13/19 07:46 Levemir Vial SQ HS [facility] Letrozole 2.5 mg 04/12/19 10:00 04/13/19 09:19 Femara - PO 2.5 mg DAILY [facility] Administration Levothyroxine Sodium 112 mcg 04/12/19 07:00 04/13/19 06:26 Synthroid - PO 112 mcg DAILY@0700 [facility] Administration Losartan Potassium 50 mg 04/13/19 15:15 04/13/19 15:27 Cozaar - PO 50 mg DAILY [facility] Administration Multivitamins/Minerals/Vitamin C 1 tab 04/12/19 10:00 04/13/19 09:18 Tab-A-Vit - PO 1 tab DAILY [facility] Administration Pregabalin 25 mg 04/11/19 22:00 04/13/19 09:19 Lyrica - PO 25 mg BID [facility] Administration ASSESSMENT AND PLAN: This is an 89 year old woman with a history of HTN, hyperlipidemia, type 2 DM, CVAs, hypothyroidism, GERD, breast cancer who presented to the ED with SOB. 1. Acute on chronic diastolic heart failure - Continue Lasix IV - Monitor I&O, weight 2. Cellulitis of legs - Improving - Continue Unasyn (day 2) 3. Acute kidney injury - Probable cardiorenal syndrome - Improving with diuresis - creatinine appears to have stabilized - Continue to monitor creatinine 4. Stage 4 CKD 5. HTN - Cozaar restarted - Continue Coreg, Hydralazine, Lasix 6. Type 2 DM - Continue Levemir, Novolog sliding scale 7. Hyperlipidemia 8. Hypothyroidism - Continue Synthroid 9. GERD - Continue Pepcid 10. History of CVAs - Continue aspirin 11. History of breast cancer, lumpectomy and RT - Continue Femara 12. Anemia, macrocytic - Likely multifactorial - Stool negative for occult blood 03/27 - Continue to monitor hgb
[2019-04-13] MEDS ORDERED: INSULIN (NOVOLOG) ASPART 100 UNITS/ML 10ML VIAL ONE (21:12)
[2019-04-14] MEDS: hydrALAZINE HCL 10 MG TABLET PO SCH ×3 (06:52→22:05)
[2019-04-14] MEDS: LEVOTHYROXINE NA 112 MCG TABLET (FP) PO SCH (06:53)
[2019-04-14] MEDS: HEPARIN NA (PORCINE) 5,000 UNITS/ML 1ML VIAL SQ SCH ×3 (06:54→22:06)
[2019-04-14] MEDS: FUROSEMIDE 40 MG/4 ML INJECTABLE VIAL IVPUSH SCH ×2 (06:55→14:26)
[2019-04-14] MEDS: INSULIN SLIDING SCALE (NOVOLOG) 1 VIAL SQ SCH ×4 (06:57→22:07)
--- NOTE | 2019-04-14 08:00 | PN ---
Progress Note (short form) - Note Progress Note: Breathing feels better today. Comfortable on RA. Overall breathing is better but feels fatigue. No CP. Intake & Output 04/11/19 04/12/19 04/13/19 04/14/19 23:59 23:59 23:59 23:59 Intake Total 1300 400 300 50 Output Total 651 850 Balance 1300 -251 -550 50 Weight 202 lb 3.2 oz 199 lb 2 oz 197 lb 197 lb 1 oz Last Vital Signs Temp Pulse Resp BP Pulse Ox 97.6 F 80 18 144/63 100 04/14/19 06:00 04/14/19 06:00 04/14/19 06:00 04/14/19 06:00 04/13/19 21:00 Active Medications Acetaminophen (Tylenol -) 650 mg PO Q6H PRN PRN Reason: PAIN Last Admin: 04/13/19 11:28 Dose: 650 mg Aspirin (Asa -) 81 mg PO DAILY [facility] Last Admin: 04/13/19 09:19 Dose: 81 mg Carvedilol (Coreg -) 25 mg PO BID [facility] Last Admin: 04/13/19 21:27 Dose: 25 mg Famotidine (Pepcid -) 20 mg PO DAILY [facility] Last Admin: 04/13/19 09:20 Dose: 20 mg Furosemide (Lasix Injection -) 80 mg IVPUSH BIDLASIX [facility] Last Admin: 04/14/19 06:55 Dose: 80 mg Heparin Sodium (Porcine) (Heparin -) 5,000 unit SQ TID [facility] Last Admin: 04/14/19 06:54 Dose: 5,000 unit Hydralazine HCl (Apresoline -) 20 mg PO TID [facility] Last Admin: 04/14/19 06:52 Dose: 20 mg Ampicillin Sodium/Sulbactam (Sodium 1.5 gm/ Sodium Chloride) 100 mls @ 200 mls/ hr IVPB BID [facility] Last Admin: 04/13/19 21:26 Dose: 200 mls/hr Insulin Aspart (Novolog Vial Sliding Scale -) 1 vial SQ ACHS [facility]; Protocol Last Admin: 04/14/19 06:57 Dose: 2 units Insulin Detemir (Levemir Vial) 8 units SQ HS [facility] Last Admin: 04/13/19 21:31 Dose: 8 units Letrozole (Femara -) 2.5 mg PO DAILY [facility] Last Admin: 04/13/19 09:19 Dose: 2.5 mg Levothyroxine Sodium (Synthroid -) 112 mcg PO DAILY@0700 [facility] Last Admin: 04/14/19 06:53 Dose: 112 mcg Losartan Potassium (Cozaar -) 50 mg PO DAILY [facility] Last Admin: 04/13/19 15:27 Dose: 50 mg Multivitamins/Minerals/Vitamin C (Tab-A-Vit -) 1 tab PO DAILY [facility] Last Admin: 04/13/19 09:18 Dose: 1 tab Pregabalin (Lyrica -) 25 mg PO BID [facility] Last Admin: 04/13/19 21:25 Dose: 25 mg Constitutional: Yes: Awake and alert, NAD Cardiovascular: Yes: Regular Rate and Rhythm, JVD, S1, S2. No: Gallop, Murmur Respiratory: Yes: Scattered bibasilar rhonchi and rales. No: Accessory Muscle Use Extremities: No: Cold Edema: Yes (chronic skin changes) Neurological: Yes: Alert, Oriented Psychiatric: No: Agitated Labs: Laboratory Results - last 24 hr 04/13/19 04/13/19 04/13/19 06:55 06:55 11:15 WBC 12.1 H RBC 2.17 L Hgb 7.2 L Hct 22.0 L MCV 101.3 H MCH 33.0 MCHC 32.6 RDW 17.1 H Plt Count 283 MPV 7.9 Absolute Neuts (auto) 7.5 Neutrophils % 62.0 Neutrophils % (Manual) 50.0 Band Neutrophils % 5.0 Lymphocytes % 11.2 Lymphocytes % (Manual) 5.0 L D Monocytes % 10.5 H Monocytes % (Manual) 14 H Eosinophils % 9.4 H Eosinophils % (Manual) 7.0 H Basophils % 6.9 H* Basophils % (Manual) 1.0 D Myelocytes % (Man) 10 H D Nucleated RBC % 0 Metamyelocytes 3 H D Platelet Estimate Adequate Sodium 137 Potassium 3.7 Chloride 103 Carbon Dioxide 25 Anion Gap 9 BUN 53.1 H Creatinine 2.4 H Est GFR (CKD-EPI)AfAm 20.07 Est GFR (CKD-EPI)NonAf 17.32 POC Glucometer 255 Random Glucose 140 H Calcium 8.3 L Phosphorus 5.8 H Magnesium 2.3 04/13/19 04/13/19 04/14/19 16:23 21:22 06:50 WBC RBC Hgb Hct MCV MCH MCHC RDW Plt Count MPV Absolute Neuts (auto) Neutrophils % Neutrophils % (Manual) Band Neutrophils % Lymphocytes % Lymphocytes % (Manual) Monocytes % Monocytes % (Manual) Eosinophils % Eosinophils % (Manual) Basophils % Basophils % (Manual) Myelocytes % (Man) Nucleated RBC % Metamyelocytes Platelet Estimate Sodium Potassium Chloride Carbon Dioxide Anion Gap BUN Creatinine Est GFR (CKD-EPI)AfAm Est GFR (CKD-EPI)NonAf POC Glucometer 295 287 173 Random Glucose Calcium Phosphorus Magnesium Problem List - Problems (1) Acute kidney injury superimposed on CKD Code(s): N17.9 - ACUTE KIDNEY FAILURE, UNSPECIFIED; N18.9 - CHRONIC KIDNEY DISEASE, UNSPECIFIED (2) Anemia Code(s): D64.9 - ANEMIA, UNSPECIFIED Qualifiers: Anemia type: unspecified type Qualified Code(s): D64.9 - Anemia, unspecified (3) Bilateral leg edema Code(s): R60.0 - LOCALIZED EDEMA (4) Hypothyroid Code(s): E03.9 - HYPOTHYROIDISM, UNSPECIFIED Qualifiers: Hypothyroidism type: unspecified Qualified Code(s): E03.9 - Hypothyroidism , unspecified (5) Pulmonary vascular congestion Code(s): R09.89 - OTH SYMPTOMS AND SIGNS INVOLVING THE CIRC AND RESP SYSTEMS (6) Shortness of breath Code(s): R06.02 - SHORTNESS OF BREATH (7) Breast cancer Code(s): C50.919 - MALIGNANT NEOPLASM OF UNSP SITE OF UNSPECIFIED FEMALE BREAST (8) Breast cancer, left Code(s): C50.912 - MALIGNANT NEOPLASM OF UNSPECIFIED SITE OF LEFT FEMALE BREAST (9) Diabetes Code(s): E11.9 - TYPE 2 DIABETES MELLITUS WITHOUT COMPLICATIONS Qualifiers: Diabetes mellitus type: type 2 (10) History of CVA with residual deficit Code(s): I69.30 - UNSPECIFIED SEQUELAE OF CEREBRAL INFARCTION (11) Lower extremity cellulitis Code(s): L03.119 - CELLULITIS OF UNSPECIFIED PART OF LIMB (12) Acute diastolic (congestive) heart failure Code(s): I50.31 - ACUTE DIASTOLIC (CONGESTIVE) HEART FAILURE IMP DYSPNEA DUE TO ACUTE DIASTOLIC HF LOWER EXT EDEMA ACUTE ON CHRONIC KIDNEY DISEASE H/O LEFT BREAST CA S/P LUMPECTOMY,RT 2015 ANEMIA 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
[2019-04-14] MEDS ORDERED: AMPICILLIN NA/SULBACTAM NA 1.5 GM VIAL ONE ×2 (09:15→21:55)
[2019-04-14] MEDS ORDERED: PT OWN MED DRAWER 7, Y5N ONE (09:15)
[2019-04-14] MEDS ORDERED: SODIUM CHLORIDE 100 ML IVPB ONE ×2 (09:15→21:55)
[2019-04-14 09:22] LABS: BLOOD UREA NITROGEN 57.4 mg/dL (7-18); CALCIUM 8.1 mg/dL (8.5-10.1); CREATININE 2.4 mg/dL (0.55-1.3); MAGNESIUM 2.2 mg/dL (1.8-2.4); PHOSPHOROUS 5.2 mg/dL (2.5-4.9); POTASSIUM 3.4 mmol/L (3.5-5.1)
[2019-04-14] MEDS: AMPICILLIN NA/SULBACTAM NA 1.5 GM in SODIUM CHLORIDE 100 ML IVPB SCH ×2 (09:25→22:06)
[2019-04-14] MEDS: ASPIRIN 81 MG CHEWABLE TABLETS PO SCH (09:26)
[2019-04-14] MEDS: PREGABALIN 25 MG CAPSULE PO SCH ×2 (09:26→22:05)
[2019-04-14] MEDS: CARVEDILOL 25 MG TABLET (FP) PO SCH ×2 (09:26→22:05)
[2019-04-14] MEDS: LETROZOLE 2.5 MG TABLET (FP) PO SCH (09:26)
[2019-04-14] MEDS: LOSARTAN POTASSIUM 50 MG TABLET (FP) PO SCH (09:27)
[2019-04-14] MEDS: FAMOTIDINE 20 MG TABLET PO SCH (09:27)
[2019-04-14] MEDS: MULTIVITAMINS (DAILY MVI) TABLET (FP) PO SCH (09:27)
[2019-04-14] MEDS ORDERED: POTASSIUM CHLORIDE TABS 20 MEQ TABLET.ER (FP) PO ONE (10:00)
[2019-04-14] MEDS ORDERED: ACETAMINOPHEN 325 MG TABLET (FP) PO ONE (12:26)
[2019-04-14] MEDS ORDERED: PANTOPRAZOLE 20 MG TABLET PO ONE (12:27)
--- NOTE | 2019-04-14 12:42 | PN ---
Progress Note, Physician History of Present Illness: stable improving - Current Medication List Current Medications: Active Medications Acetaminophen (Tylenol -) 650 mg PO Q6H PRN PRN Reason: PAIN Last Admin: 04/13/19 11:28 Dose: 650 mg Aspirin (Asa -) 81 mg PO DAILY [facility] Last Admin: 04/14/19 09:26 Dose: 81 mg Carvedilol (Coreg -) 25 mg PO BID [facility] Last Admin: 04/14/19 09:26 Dose: 25 mg Famotidine (Pepcid -) 20 mg PO DAILY [facility] Last Admin: 04/14/19 09:27 Dose: 20 mg Furosemide (Lasix Injection -) 80 mg IVPUSH BIDLASIX [facility] Last Admin: 04/14/19 06:55 Dose: 80 mg Heparin Sodium (Porcine) (Heparin -) 5,000 unit SQ TID [facility] Last Admin: 04/14/19 06:54 Dose: 5,000 unit Hydralazine HCl (Apresoline -) 20 mg PO TID [facility] Last Admin: 04/14/19 06:52 Dose: 20 mg Ampicillin Sodium/Sulbactam (Sodium 1.5 gm/ Sodium Chloride) 100 mls @ 200 mls/ hr IVPB BID [facility] Last Admin: 04/14/19 09:25 Dose: 200 mls/hr Insulin Aspart (Novolog Vial Sliding Scale -) 1 vial SQ ACHS [facility]; Protocol Last Admin: 04/14/19 12:19 Dose: 4 units Insulin Detemir (Levemir Vial) 8 units SQ HS [facility] Last Admin: 04/13/19 21:31 Dose: 8 units Letrozole (Femara -) 2.5 mg PO DAILY [facility] Last Admin: 04/14/19 09:26 Dose: 2.5 mg Levothyroxine Sodium (Synthroid -) 112 mcg PO DAILY@0700 [facility] Last Admin: 04/14/19 06:53 Dose: 112 mcg Losartan Potassium (Cozaar -) 50 mg PO DAILY [facility] Last Admin: 04/14/19 09:27 Dose: 50 mg Multivitamins/Minerals/Vitamin C (Tab-A-Vit -) 1 tab PO DAILY [facility] Last Admin: 04/14/19 09:27 Dose: 1 tab Pregabalin (Lyrica -) 25 mg PO BID [facility] Last Admin: 04/14/19 09:26 Dose: 25 mg - Objective Vital Signs: Vital Signs Temperature 97.8 F 04/14/19 09:20 Pulse Rate 74 04/14/19 12:16 Respiratory Rate 18 04/14/19 12:16 Blood Pressure 145/60 04/14/19 12:16 O2 Sat by Pulse Oximetry (%) 100 04/13/19 21:00 Constitutional: Yes: No Distress, Calm Cardiovascular: Yes: S1, S2 Gastrointestinal: Yes: Normal Bowel Sounds, Soft Musculoskeletal: Yes: WNL Extremities: Yes: Other Neurological: Yes: Alert, Oriented Psychiatric: Yes: Other Labs: CBC, BMP 04/13/19 06:55 04/14/19 07:25 INR, PTT INR 1.01 (0.83-1.09) 04/08/19 22:30 Assessment/Plan Problem List - Problems (1) Acute diastolic (congestive) heart failure Code(s): I50.31 - ACUTE DIASTOLIC (CONGESTIVE) HEART FAILURE (2) Acute kidney injury superimposed on CKD Code(s): N17.9 - ACUTE KIDNEY FAILURE, UNSPECIFIED; N18.9 - CHRONIC KIDNEY DISEASE, UNSPECIFIED (3) Anemia Code(s): D64.9 - ANEMIA, UNSPECIFIED Qualifiers: Anemia type: unspecified type Qualified Code(s): D64.9 - Anemia, unspecified (4) Bilateral leg edema Code(s): R60.0 - LOCALIZED EDEMA (5) Hypothyroid Code(s): E03.9 - HYPOTHYROIDISM, UNSPECIFIED Qualifiers: Hypothyroidism type: unspecified Qualified Code(s): E03.9 - Hypothyroidism , unspecified (6) Shortness of breath Code(s): R06.02 - SHORTNESS OF BREATH (7) Breast cancer, left Code(s): C50.912 - MALIGNANT NEOPLASM OF UNSPECIFIED SITE OF LEFT FEMALE BREAST (8) Diabetes Code(s): E11.9 - TYPE 2 DIABETES MELLITUS WITHOUT COMPLICATIONS Qualifiers: Diabetes mellitus type: type 2 (9) GERD (gastroesophageal reflux disease) Code(s): K21.9 - GASTRO-ESOPHAGEAL REFLUX DISEASE WITHOUT ESOPHAGITIS (10) HTN (hypertension) Code(s): I10 - ESSENTIAL (PRIMARY) HYPERTENSION (11) History of CVA with residual deficit Code(s): I69.30 - UNSPECIFIED SEQUELAE OF CEREBRAL INFARCTION (12) Lower extremity cellulitis Code(s): L03.119 - CELLULITIS OF UNSPECIFIED PART OF LIMB Assessment/Plan 89 y.o. female with PMH of DM, CKD, HTN, HLD, anemia, Lt breast CA s/p lumpectomy/RT, hypothyroidism, CVA, GBS, remote history of meningitis presents with complaints of worsening SOB and b/l LE edema that began several days [employer] after recent hospital discharge. Treated for b/l LE cellulitis with some improvement. Noted to have leukocytosis, LE erythema, worsening renal function and anemia b/l LE cellulitis Leukocytosis SOB b/l LE edema Acute diastolic HF Anemia Acute on chronic RF DM HTN Hx of Lt Breast CA Hypothyroidism Hx of CVAs plan continue current mgmt abx monitor wbc elevation of the leg
--- NOTE | 2019-04-14 13:06 | PN ---
Progress Note, Physician History of Present Illness: Pt seen and examined at bedside. She is awake and alert. She complained of chest pain and is getting evaluated. She denies shortness of breath. - Current Medication List Current Medications: Active Medications Acetaminophen (Tylenol -) 650 mg PO Q6H PRN PRN Reason: PAIN Last Admin: 04/13/19 11:28 Dose: 650 mg Aspirin (Asa -) 81 mg PO DAILY [facility] Last Admin: 04/14/19 09:26 Dose: 81 mg Carvedilol (Coreg -) 25 mg PO BID [facility] Last Admin: 04/14/19 09:26 Dose: 25 mg Famotidine (Pepcid -) 20 mg PO DAILY [facility] Last Admin: 04/14/19 09:27 Dose: 20 mg Furosemide (Lasix Injection -) 80 mg IVPUSH BIDLASIX [facility] Last Admin: 04/14/19 06:55 Dose: 80 mg Heparin Sodium (Porcine) (Heparin -) 5,000 unit SQ TID [facility] Last Admin: 04/14/19 06:54 Dose: 5,000 unit Hydralazine HCl (Apresoline -) 20 mg PO TID [facility] Last Admin: 04/14/19 06:52 Dose: 20 mg Ampicillin Sodium/Sulbactam (Sodium 1.5 gm/ Sodium Chloride) 100 mls @ 200 mls/ hr IVPB BID [facility] Last Admin: 04/14/19 09:25 Dose: 200 mls/hr Insulin Aspart (Novolog Vial Sliding Scale -) 1 vial SQ ACHS [facility]; Protocol Last Admin: 04/14/19 12:19 Dose: 4 units Insulin Detemir (Levemir Vial) 8 units SQ HS [facility] Last Admin: 04/13/19 21:31 Dose: 8 units Letrozole (Femara -) 2.5 mg PO DAILY [facility] Last Admin: 04/14/19 09:26 Dose: 2.5 mg Levothyroxine Sodium (Synthroid -) 112 mcg PO DAILY@0700 [facility] Last Admin: 04/14/19 06:53 Dose: 112 mcg Losartan Potassium (Cozaar -) 50 mg PO DAILY [facility] Last Admin: 04/14/19 09:27 Dose: 50 mg Multivitamins/Minerals/Vitamin C (Tab-A-Vit -) 1 tab PO DAILY [facility] Last Admin: 04/14/19 09:27 Dose: 1 tab Pregabalin (Lyrica -) 25 mg PO BID [facility] Last Admin: 04/14/19 09:26 Dose: 25 mg - Objective Vital Signs: Vital Signs Temperature 97.8 F 04/14/19 09:20 Pulse Rate 74 04/14/19 12:16 Respiratory Rate 18 04/14/19 12:16 Blood Pressure 145/60 04/14/19 12:16 O2 Sat by Pulse Oximetry (%) 100 04/13/19 21:00 Constitutional: Yes: Calm Eyes: Yes: Conjunctiva Clear HENT: Yes: Atraumatic Neck: Yes: Supple Cardiovascular: Yes: S1, S2 Respiratory: Yes: CTA Bilaterally Gastrointestinal: Yes: Soft Genitourinary: Yes: WNL Musculoskeletal: Yes: WNL Edema: Yes Edema: LLE: 2+, RLE: 2+ Neurological: Yes: Oriented Psychiatric: Yes: Oriented Labs: CBC, BMP 04/13/19 06:55 04/14/19 07:25 INR, PTT INR 1.01 (0.83-1.09) 04/08/19 22:30 Assessment/Plan Current Medications Generic Name Dose Route Start Last Admin Trade Name Freq PRN Reason Stop Dose Admin Acetaminophen 650 mg 04/11/19 13:59 04/13/19 11:28 Tylenol - PO 650 mg Q6H PRN Administration PAIN Aspirin 81 mg 04/12/19 10:00 04/14/19 09:26 Asa - PO 81 mg DAILY [facility] Administration Carvedilol 25 mg 04/11/19 22:00 04/14/19 09:26 Coreg - PO 25 mg BID [facility] Administration Famotidine 20 mg 04/12/19 10:00 04/14/19 09:27 Pepcid - PO 20 mg DAILY [facility] Administration Furosemide 80 mg 04/12/19 16:00 04/14/19 06:55 Lasix Injection - IVPUSH 80 mg BIDLASIX [facility] Administration Heparin Sodium (Porcine) 5,000 unit 04/11/19 14:00 04/14/19 06:54 Heparin - SQ 5,000 unit TID [facility] Administration Hydralazine HCl 20 mg 04/11/19 14:00 04/14/19 06:52 Apresoline - PO 20 mg TID [facility] Administration Ampicillin Sodium/Sulbactam 100 mls @ 200 mls/hr 04/11/19 22:00 04/14/19 09: 25 Sodium 1.5 gm/ Sodium Chloride IVPB 200 mls/hr BID [facility] Administration Insulin Aspart 1 vial 04/11/19 16:30 04/14/19 12:19 Novolog Vial Sliding Scale - SQ 4 units ACHS [facility] Administration Protocol Insulin Detemir 8 units 04/13/19 07:46 04/13/19 21:31 Levemir Vial SQ 8 units HS [facility] Administration Letrozole 2.5 mg 04/12/19 10:00 04/14/19 09:26 Femara - PO 2.5 mg DAILY [facility] Administration Levothyroxine Sodium 112 mcg 04/12/19 07:00 04/14/19 06:53 Synthroid - PO 112 mcg DAILY@0700 [facility] Administration Losartan Potassium 50 mg 04/13/19 15:15 04/14/19 09:27 Cozaar - PO 50 mg DAILY [facility] Administration Multivitamins/Minerals/Vitamin C 1 tab 04/12/19 10:00 04/14/19 09:27 Tab-A-Vit - PO 1 tab DAILY [facility] Administration Pregabalin 25 mg 04/11/19 22:00 04/14/19 09:26 Lyrica - PO 25 mg BID [facility] Administration Impression 1. proteinuria 2. hypothyroid 3. HTN 4. DM 5. fluid overload 6. breast cancer 7. MAURICE 8. CKD Plan - chest pain eval per medical team - renal function stable - cont lasix as tolerated - cardio follow up - follow trops - cont losartan - replace potassium Dr Sequeira
--- NOTE | 2019-04-14 14:14 | PN ---
Progress Note (short form) - Note Progress Note: Hospitalist Medicine This AM, comfortable. With improved breathing; off NC 02. In afternoon, c/o chest discomfort radiating to back. Stat trop, EKG ordered, as well as protonix x1. Tylenol ordered for R rotator cuff pain. Vitals 04/14/19 12:16 Pulse Rate 74 Respiratory 18 Rate Blood Pressure 145/60 Physical Exam general: resting in bed, in NAD heent: NCAT neck: supple cardio: S1, S2, RRR. no r/m/g pulm: +scattered rhonchi. no accessory m usage abdomen: nontender,nondistended LE: 1+ edema, +chronic changes, erythema b/l. neuro: [employer] 2-12 grossly intact Laboratory Tests 04/14/19 04/14/19 07:25 13:50 Sodium 138 Potassium 3.4 L Chloride 103 Carbon Dioxide 24 Anion Gap 10 BUN 57.4 H Creatinine 2.4 H Random Glucose 169 H Calcium 8.1 L Phosphorus 5.2 H Magnesium 2.2 Troponin I Pending Microbiology 04/09/19 01:55 Urine - Urine Clean Catch Urine Culture - Final NO GROWTH OBTAINED 04/08/19 22:40 Blood - Peripheral Venous Blood Culture - Preliminary NO GROWTH OBTAINED AFTER 72 HOURS, INCUBATION TO CONTINUE FOR 2 DAYS. 04/08/19 22:15 Blood - Peripheral Venous Blood Culture - Preliminary NO GROWTH OBTAINED AFTER 72 HOURS, INCUBATION TO CONTINUE FOR 2 DAYS. Imaging 04/12/19: CXR: congestive changes have diminished. still fluid with atelectasis or infiltrate at L base. 04/09/19: EKG: NSR, rate 79bpm, SD 208ms*, qtc 486ms 04/09/19: CT chest: interstitial pulm vascular congestion with pleural effusions, and resultant bibasilar compressive atelectasis. bilateral flank subcutaneous edema. cardiomegaly is noted. no discrete infiltrate. nonspecific approx 1.5x1.1cm L breast soft tissue nodule noted adjacent to chest wall. post- surgical changes are noted. follow up mammo with attention to chest wall region suggested with comparison to mammo from 03/23/18. 04/08/19: CXR: worse; progressive congestive and infiltrative changes, with persistently widened mediastinum. 04/08/19: duplex: (-) for DVT Assessment/Plan 89 F PMH HTN, HLD, Left breast cancer, Hypothyroidism, GERD, NIDDM and Multiple CVAs, recently admitted at [facility] for bilateral LE cellulitis (discharged 04/06/19) , who presented with acute HFpEF exacerbation and exacerbation of LE b /l cellulitis. #Acute on chronic HFpEF -lasix increased to 80mg IVP BID -sx improved -monitor weights, i/o. na control 2g -Cardio: Dr. Ly #Chest pain r/o ACS -EKG reviewed. no acute change. trop (-)x1, trend -given protonix x 1 -tylenol x 1 for rotator cuff #Chronic LE cellulitis -on unasyn (04/11) -without white count, afebrile -f/u ucx, blood cx (-) thus far -c/w lyrica for neuropathy -ID: Dr. Khanna #MAURICE on CKD -likely w/ cardiorenal syndrome, c/w diuresis -avoid NSAID's -c/t monitor -Renal: Dr. Sequeira #HTN-controlled -c/w hydralazine, lasix, coreg -restarted on losartan #DM2 -levemir uptitrated to 10u sq HS -placed on diabetic diet -ISS, BGM ACHS #hx multiple CVA -on asa -not on lipitor; out of age bracket for ASCVD #hx L breast CA -c/w letrozole -outpt mammo f/u #F/E/N avoid IVF as with CHF continue to follow lytes soft diet. +na controlled, diabetic #PPX DVT: hep TID GI: on pepcid #Dispo monitoring on med-surg
--- NOTE | 2019-04-14 14:56 | PN ---
Teaching Attending Note Name of Resident: Kassandra Watson ATTENDING PHYSICIAN STATEMENT I saw and evaluated the patient. I reviewed the resident's note and discussed the case with the resident. I agree with the resident's findings and plan as documented. SUBJECTIVE: Patient feels more SOB and reports increased swelling of her legs. She feels like she is urinating less than she should be with the dose of Lasix she has been receiving. She had an episode of chest pain which has resolved. OBJECTIVE: Vital Signs Period Temp Pulse Resp BP Sys/Hernandez Pulse Ox Last 24 Hr 97.6 F-98.6 F 74-89 18-18 123-145/50-90 100 HEART: S1S2, RRR LUNGS: Few rhonchi and wheezes ABDOMEN: Obese, soft, non-tender, non-distended, normal BS EXTREMITIES: 1+ edema Laboratory Results - last 24 hr 04/13/19 04/13/19 04/14/19 16:23 21:22 06:50 Sodium Potassium Chloride Carbon Dioxide Anion Gap BUN Creatinine Est GFR (CKD-EPI)AfAm Est GFR (CKD-EPI)NonAf POC Glucometer 295 287 173 Random Glucose Calcium Phosphorus Magnesium Troponin I 04/14/19 04/14/19 04/14/19 07:25 12:06 13:50 Sodium 138 Potassium 3.4 L Chloride 103 Carbon Dioxide 24 Anion Gap 10 BUN 57.4 H Creatinine 2.4 H Est GFR (CKD-EPI)AfAm 20.07 Est GFR (CKD-EPI)NonAf 17.32 POC Glucometer 240 Random Glucose 169 H Calcium 8.1 L Phosphorus 5.2 H Magnesium 2.2 Troponin I < 0.02 Current Medications Generic Name Dose Route Start Last Admin Trade Name Freq PRN Reason Stop Dose Admin Acetaminophen 650 mg 04/11/19 13:59 04/13/19 11:28 Tylenol - PO 650 mg Q6H PRN Administration PAIN Aspirin 81 mg 04/12/19 10:00 04/14/19 09:26 Asa - PO 81 mg DAILY [facility] Administration Carvedilol 25 mg 04/11/19 22:00 04/14/19 09:26 Coreg - PO 25 mg BID [facility] Administration Famotidine 20 mg 04/12/19 10:00 04/14/19 09:27 Pepcid - PO 20 mg DAILY [facility] Administration Furosemide 80 mg 04/12/19 16:00 04/14/19 14:26 Lasix Injection - IVPUSH 80 mg BIDLASIX [facility] Administration Heparin Sodium (Porcine) 5,000 unit 04/11/19 14:00 04/14/19 14:28 Heparin - SQ 5,000 unit TID [facility] Administration Hydralazine HCl 20 mg 04/11/19 14:00 04/14/19 14:28 Apresoline - PO 20 mg TID [facility] Administration Ampicillin Sodium/Sulbactam 100 mls @ 200 mls/hr 04/11/19 22:00 04/14/19 09: 25 Sodium 1.5 gm/ Sodium Chloride IVPB 200 mls/hr BID [facility] Administration Insulin Aspart 1 vial 04/11/19 16:30 04/14/19 12:19 Novolog Vial Sliding Scale - SQ 4 units ACHS [facility] Administration Protocol Insulin Detemir 10 units 04/14/19 14:18 Levemir Vial SQ HS [facility] Letrozole 2.5 mg 04/12/19 10:00 04/14/19 09:26 Femara - PO 2.5 mg DAILY [facility] Administration Levothyroxine Sodium 112 mcg 04/12/19 07:00 04/14/19 06:53 Synthroid - PO 112 mcg DAILY@0700 [facility] Administration Losartan Potassium 50 mg 04/13/19 15:15 04/14/19 09:27 Cozaar - PO 50 mg DAILY [facility] Administration Multivitamins/Minerals/Vitamin C 1 tab 04/12/19 10:00 04/14/19 09:27 Tab-A-Vit - PO 1 tab DAILY [facility] Administration Pregabalin 25 mg 04/11/19 22:00 04/14/19 09:26 Lyrica - PO 25 mg BID [facility] Administration ASSESSMENT AND PLAN: This is an 89 year old woman with a history of HTN, hyperlipidemia, type 2 DM, CVAs, hypothyroidism, GERD, breast cancer who presented to the ED with SOB. 1. Acute on chronic diastolic heart failure - Continue Lasix IV - Weight unchanged from yesterday - Continue to monitor I&O, weight - Consider increasing Lasix 2. Cellulitis of legs - Improving - Continue Unasyn (day 4) 3. Acute kidney injury - Probable cardiorenal syndrome - Improved with diuresis - creatinine appears to have stabilized - Continue to monitor creatinine 4. Hypokalemia - Replete potassium 5. Stage 4 CKD 6. HTN - Continue Cozaar, Coreg, Hydralazine, Lasix 7. Type 2 DM - Continue Levemir, Novolog sliding scale 8. Hyperlipidemia 9. Hypothyroidism - Continue Synthroid 10. GERD - Continue Pepcid 11. History of CVAs - Continue aspirin 12. History of breast cancer, lumpectomy and RT - Continue Femara 13. Anemia, macrocytic - Likely multifactorial - Stool negative for occult blood 03/27 - Continue to monitor hgb
--- NOTE | 2019-04-14 15:10 | EKG ---
Test Reason : Blood Pressure : / mmHG Vent. Rate : 073 BPM Atrial Rate : 073 BPM P-R Int : 174 ms QRS Dur : 122 ms QT Int : 440 ms P-R-T Axes : 056 -27 051 degrees QTc Int : 484 ms NORMAL SINUS RHYTHM NON-SPECIFIC INTRA-VENTRICULAR CONDUCTION DELAY BORDERLINE ECG WHEN COMPARED WITH ECG OF 09-APR-2019 09:47, NO SIGNIFICANT CHANGE WAS FOUND Confirmed by PROSPER MATA MD ([id number]) on 04/14/2019 3:09:37 PM Referred By: MYLES MASTERS DR Confirmed By:PROSPER MATA MD
--- NOTE | 2019-04-14 15:32 | PN ---
Progress Note (short form) - Note Progress Note: s: sob, edema worse today. had central cp earlier, now resolved. no palps dizzy Current Medications Generic Name Dose Route Start Last Admin Trade Name Meena PRN Reason Stop Dose Admin Acetaminophen 650 mg 04/11/19 13:59 04/13/19 11:28 Tylenol - PO 650 mg Q6H PRN Administration PAIN Aspirin 81 mg 04/12/19 10:00 04/14/19 09:26 Asa - PO 81 mg DAILY [facility] Administration Carvedilol 25 mg 04/11/19 22:00 04/14/19 09:26 Coreg - PO 25 mg BID [facility] Administration Famotidine 20 mg 04/12/19 10:00 04/14/19 09:27 Pepcid - PO 20 mg DAILY [facility] Administration Furosemide 80 mg 04/12/19 16:00 04/14/19 14:26 Lasix Injection - IVPUSH 80 mg BIDLASIX [facility] Administration Heparin Sodium (Porcine) 5,000 unit 04/11/19 14:00 04/14/19 14:28 Heparin - SQ 5,000 unit TID [facility] Administration Hydralazine HCl 20 mg 04/11/19 14:00 04/14/19 14:28 Apresoline - PO 20 mg TID [facility] Administration Ampicillin Sodium/Sulbactam 100 mls @ 200 mls/hr 04/11/19 22:00 04/14/19 09: 25 Sodium 1.5 gm/ Sodium Chloride IVPB 200 mls/hr BID [facility] Administration Insulin Aspart 1 vial 04/11/19 16:30 04/14/19 12:19 Novolog Vial Sliding Scale - SQ 4 units ACHS [facility] Administration Protocol Insulin Detemir 10 units 04/14/19 14:18 Levemir Vial SQ HS [facility] Letrozole 2.5 mg 04/12/19 10:00 04/14/19 09:26 Femara - PO 2.5 mg DAILY [facility] Administration Levothyroxine Sodium 112 mcg 04/12/19 07:00 04/14/19 06:53 Synthroid - PO 112 mcg DAILY@0700 [facility] Administration Losartan Potassium 50 mg 04/13/19 15:15 04/14/19 09:27 Cozaar - PO 50 mg DAILY [facility] Administration Multivitamins/Minerals/Vitamin C 1 tab 04/12/19 10:00 04/14/19 09:27 Tab-A-Vit - PO 1 tab DAILY [facility] Administration Pregabalin 25 mg 04/11/19 22:00 04/14/19 09:26 Lyrica - PO 25 mg BID [facility] Administration Vital Signs Period Temp Pulse Resp BP Sys/Hernandez Pulse Ox Last 24 Hr 97.6 F-98.6 F 74-89 18-18 123-145/50-90 100 Constitutional: Yes: Well Nourished, No Distress, Calm Cardiovascular: Yes: Regular Rate and Rhythm, JVD, S1, S2. No: Gallop, Murmur Respiratory: Yes: Regular, CTA Bilaterally, Diminished (L base). No: Accessory Muscle Use, Rales, Wheezes Extremities: No: Cold Edema: No Neurological: Yes: Alert, Oriented Psychiatric: No: Agitated CBC, BMP 04/13/19 06:55 04/14/19 07:25 Assessment/Plan EKG: sinus,nl intervals, no ischemic changes CXR: + congestive changes echo 03/2019 nl LV function, mild MR, mild TR, PASP at least 49 mmHg acute diastolic heart failure exacerbation - recent echo nl LV function, mild pulm HTN - CT chest bilat effusions and vascular congestion pattern, with + flank subcutaneous edema. - receiving iv lasix 80 BID, still with vol overload, cr stable. may need to increase dose if still not improving tomorrow. lower ext cellulitis - manage per ID, primary HTN - cont current meds MAURICE on CKD - recent creat 2.2-2.4 - renal following cp: -resolved -ecg today unremarkable -trop neg today -monitor for now
[2019-04-14] MEDS: INSULIN (LEVEMIR) 100 UNITS/ML UNITS SQ SCH (22:08)
[2019-04-15] MEDS: LEVOTHYROXINE NA 112 MCG TABLET (FP) PO SCH (06:27)
[2019-04-15] MEDS: hydrALAZINE HCL 10 MG TABLET PO SCH ×3 (06:27→21:49)
[2019-04-15] MEDS: INSULIN SLIDING SCALE (NOVOLOG) 1 VIAL SQ SCH ×4 (06:28→21:53)
[2019-04-15] MEDS: FUROSEMIDE 40 MG/4 ML INJECTABLE VIAL IVPUSH SCH ×2 (06:29→15:59)
[2019-04-15] MEDS: HEPARIN NA (PORCINE) 5,000 UNITS/ML 1ML VIAL SQ SCH ×3 (06:30→21:51)
[2019-04-15 08:43] LABS: BASO % 5.2 % (0-2.0); EOS % 8.8 % (0-4.5); HEMATOCRIT 21.9 % (32.4-45.2); HEMOGLOBIN 7.2 GM/dL (10.7-15.3); LYMPH % 10.7 % (8-40); MCH 33.1 pg (25.7-33.7); MCHC 32.9 g/dl (32.0-36.0); MEAN CELL VOLUME 100.5 fl (80-96); MEAN PLT VOLUME 7.8 fl (7.5-11.1); MONO % 11.4 % (3.8-10.2); NEUT % 63.9 % (42.8-82.8); PLATELET COUNT 274 K/MM3 (134-434); RBC 2.18 M/mm3 (3.60-5.2)
[2019-04-15 09:09] LABS: ANION GAP 9 MMOL/L (8-16); CALCIUM 8.3 mg/dL (8.5-10.1); CHLORIDE 104 mmol/L (98-107); CO2 26 mmol/L (21-32); CREATININE 2.6 mg/dL (0.55-1.3); GLUCOSE,RANDOM 176 mg/dL (74-106); MAGNESIUM 2.3 mg/dL (1.8-2.4); PHOSPHOROUS 5.7 mg/dL (2.5-4.9); POTASSIUM 3.5 mmol/L (3.5-5.1); SODIUM 140 mmol/L (136-145)
[2019-04-15 09:47] LABS: ANISOCYTOSIS 2+; MACROCYTOSIS 2+; PLATELET ESTIMATE NORMAL
--- NOTE | 2019-04-15 10:35 | PN ---
Progress Note (short form) - Note Progress Note: Breathing feels better today. Overall breathing is better but feels fatigue. No CP. Intake & Output 04/12/19 04/13/19 04/14/19 04/15/19 23:59 23:59 23:59 23:59 Intake Total 400 300 500 300 Output Total 651 850 300 Balance -251 -550 200 300 Weight 199 lb 2 oz 197 lb 197 lb 1 oz 197 lb Last Vital Signs Temp Pulse Resp BP Pulse Ox 97.7 F 80 18 147/53 L 95 04/15/19 10:00 04/15/19 10:00 04/15/19 10:00 04/15/19 10:00 04/14/19 21:00 Active Medications Acetaminophen (Tylenol -) 650 mg PO Q6H PRN PRN Reason: PAIN Last Admin: 04/13/19 11:28 Dose: 650 mg Aspirin (Asa -) 81 mg PO DAILY [facility] Last Admin: 04/14/19 09:26 Dose: 81 mg Carvedilol (Coreg -) 25 mg PO BID [facility] Last Admin: 04/14/19 22:05 Dose: 25 mg Famotidine (Pepcid -) 20 mg PO DAILY [facility] Last Admin: 04/14/19 09:27 Dose: 20 mg Furosemide (Lasix Injection -) 80 mg IVPUSH BIDLASIX [facility] Last Admin: 04/15/19 06:29 Dose: 80 mg Heparin Sodium (Porcine) (Heparin -) 5,000 unit SQ TID [facility] Last Admin: 04/15/19 06:30 Dose: 5,000 unit Hydralazine HCl (Apresoline -) 20 mg PO TID [facility] Last Admin: 04/15/19 06:27 Dose: 20 mg Ampicillin Sodium/Sulbactam (Sodium 1.5 gm/ Sodium Chloride) 100 mls @ 200 mls/ hr IVPB BID [facility] Last Admin: 04/14/19 22:06 Dose: 200 mls/hr Insulin Aspart (Novolog Vial Sliding Scale -) 1 vial SQ ACHS [facility]; Protocol Last Admin: 04/15/19 06:28 Dose: 2 units Insulin Detemir (Levemir Vial) 10 units SQ HS [facility] Last Admin: 04/14/19 22:08 Dose: 10 unit Letrozole (Femara -) 2.5 mg PO DAILY [facility] Last Admin: 04/14/19 09:26 Dose: 2.5 mg Levothyroxine Sodium (Synthroid -) 112 mcg PO DAILY@0700 [facility] Last Admin: 04/15/19 06:27 Dose: 112 mcg Losartan Potassium (Cozaar -) 50 mg PO DAILY [facility] Last Admin: 04/14/19 09:27 Dose: 50 mg Multivitamins/Minerals/Vitamin C (Tab-A-Vit -) 1 tab PO DAILY [facility] Last Admin: 04/14/19 09:27 Dose: 1 tab Pregabalin (Lyrica -) 25 mg PO BID [facility] Last Admin: 04/14/19 22:05 Dose: 25 mg Constitutional: Yes: Awake and alert, NAD Cardiovascular: Yes: Regular Rate and Rhythm, JVD, S1, S2. No: Gallop, Murmur Respiratory: Yes: Scattered bibasilar rhonchi and rales. No: Accessory Muscle Use Extremities: No: Cold Edema: Yes (chronic skin changes) Neurological: Yes: Alert, Oriented Psychiatric: No: Agitated Labs: Laboratory Results - last 24 hr 04/14/19 04/14/19 04/14/19 12:06 13:50 17:14 WBC RBC Hgb Hct MCV MCH MCHC RDW Plt Count MPV Absolute Neuts (auto) Neutrophils % Neutrophils % (Manual) Band Neutrophils % Lymphocytes % Lymphocytes % (Manual) Monocytes % Monocytes % (Manual) Eosinophils % Eosinophils % (Manual) Basophils % Basophils % (Manual) Myelocytes % (Man) Promyelocytes % (Man) Blast Cells % (Manual) Nucleated RBC % Metamyelocytes Hypochromia Platelet Estimate Polychromasia Poikilocytosis Anisocytosis Microcytosis Macrocytosis Stomatocytes Sodium Potassium Chloride Carbon Dioxide Anion Gap BUN Creatinine Est GFR (CKD-EPI)AfAm Est GFR (CKD-EPI)NonAf POC Glucometer 240 220 Random Glucose Calcium Phosphorus Magnesium Troponin I < 0.02 04/14/19 04/15/19 04/15/19 22:03 06:24 07:58 WBC RBC Hgb Hct MCV MCH MCHC RDW Plt Count MPV Absolute Neuts (auto) Neutrophils % Neutrophils % (Manual) Band Neutrophils % Lymphocytes % Lymphocytes % (Manual) Monocytes % Monocytes % (Manual) Eosinophils % Eosinophils % (Manual) Basophils % Basophils % (Manual) Myelocytes % (Man) Promyelocytes % (Man) Blast Cells % (Manual) Nucleated RBC % Metamyelocytes Hypochromia Platelet Estimate Polychromasia Poikilocytosis Anisocytosis Microcytosis Macrocytosis Stomatocytes Sodium 140 Potassium 3.5 Chloride 104 Carbon Dioxide 26 Anion Gap 9 BUN 64.0 H Creatinine 2.6 H Est GFR (CKD-EPI)AfAm 18.22 Est GFR (CKD-EPI)NonAf 15.72 POC Glucometer 261 167 Random Glucose 176 H Calcium 8.3 L Phosphorus 5.7 H Magnesium 2.3 Troponin I < 0.02 04/15/19 07:58 WBC 13.0 H RBC 2.18 L Hgb 7.2 L Hct 21.9 L MCV 100.5 H MCH 33.1 MCHC 32.9 RDW 17.0 H Plt Count 274 MPV 7.8 Absolute Neuts (auto) 8.3 H Neutrophils % 63.9 Neutrophils % (Manual) 62.8 Band Neutrophils % 0.0 Lymphocytes % 10.7 Lymphocytes % (Manual) 12.7 D Monocytes % 11.4 H Monocytes % (Manual) 7 Eosinophils % 8.8 H Eosinophils % (Manual) 4.9 H Basophils % 5.2 H* Basophils % (Manual) 7.8 H* D Myelocytes % (Man) 2 D Promyelocytes % (Man) 0 Blast Cells % (Manual) 0 Nucleated RBC % 0 Metamyelocytes 3 H Hypochromia 0 Platelet Estimate Normal Polychromasia 1+ Poikilocytosis 2+ Anisocytosis 2+ Microcytosis 0 Macrocytosis 2+ Stomatocytes 2+ Sodium Potassium Chloride Carbon Dioxide Anion Gap BUN Creatinine Est GFR (CKD-EPI)AfAm Est GFR (CKD-EPI)NonAf POC Glucometer Random Glucose Calcium Phosphorus Magnesium Troponin I Problem List - Problems (1) Acute kidney injury superimposed on CKD Code(s): N17.9 - ACUTE KIDNEY FAILURE, UNSPECIFIED; N18.9 - CHRONIC KIDNEY DISEASE, UNSPECIFIED (2) Anemia Code(s): D64.9 - ANEMIA, UNSPECIFIED Qualifiers: Anemia type: unspecified type Qualified Code(s): D64.9 - Anemia, unspecified (3) Bilateral leg edema Code(s): R60.0 - LOCALIZED EDEMA (4) Hypothyroid Code(s): E03.9 - HYPOTHYROIDISM, UNSPECIFIED Qualifiers: Hypothyroidism type: unspecified Qualified Code(s): E03.9 - Hypothyroidism , unspecified (5) Pulmonary vascular congestion Code(s): R09.89 - OTH SYMPTOMS AND SIGNS INVOLVING THE CIRC AND RESP SYSTEMS (6) Shortness of breath Code(s): R06.02 - SHORTNESS OF BREATH (7) Breast cancer Code(s): C50.919 - MALIGNANT NEOPLASM OF UNSP SITE OF UNSPECIFIED FEMALE BREAST (8) Breast cancer, left Code(s): C50.912 - MALIGNANT NEOPLASM OF UNSPECIFIED SITE OF LEFT FEMALE BREAST (9) Diabetes Code(s): E11.9 - TYPE 2 DIABETES MELLITUS WITHOUT COMPLICATIONS Qualifiers: Diabetes mellitus type: type 2 (10) History of CVA with residual deficit Code(s): I69.30 - UNSPECIFIED SEQUELAE OF CEREBRAL INFARCTION (11) Lower extremity cellulitis Code(s): L03.119 - CELLULITIS OF UNSPECIFIED PART OF LIMB (12) Acute diastolic (congestive) heart failure Code(s): I50.31 - ACUTE DIASTOLIC (CONGESTIVE) HEART FAILURE IMP DYSPNEA DUE TO ACUTE DIASTOLIC HF LOWER EXT EDEMA ACUTE ON CHRONIC KIDNEY DISEASE H/O LEFT BREAST CA S/P LUMPECTOMY,RT 2014 ANEMIA 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
--- NOTE | 2019-04-15 11:01 | PN ---
Progress Note (short form) - Note Progress Note: s: sob and le edema better today. no cp palps dizzy Current Medications Generic Name Dose Route Start Last Admin Trade Name Moiseq PRN Reason Stop Dose Admin Acetaminophen 650 mg 04/11/19 13:59 04/13/19 11:28 Tylenol - PO 650 mg Q6H PRN Administration PAIN Aspirin 81 mg 04/12/19 10:00 04/14/19 09:26 Asa - PO 81 mg DAILY [facility] Administration Carvedilol 25 mg 04/11/19 22:00 04/14/19 22:05 Coreg - PO 25 mg BID [facility] Administration Famotidine 20 mg 04/12/19 10:00 04/14/19 09:27 Pepcid - PO 20 mg DAILY [facility] Administration Furosemide 80 mg 04/12/19 16:00 04/15/19 06:29 Lasix Injection - IVPUSH 80 mg BIDLASIX [facility] Administration Heparin Sodium (Porcine) 5,000 unit 04/11/19 14:00 04/15/19 06:30 Heparin - SQ 5,000 unit TID [facility] Administration Hydralazine HCl 20 mg 04/11/19 14:00 04/15/19 06:27 Apresoline - PO 20 mg TID [facility] Administration Ampicillin Sodium/Sulbactam 100 mls @ 200 mls/hr 04/11/19 22:00 04/14/19 22: 06 Sodium 1.5 gm/ Sodium Chloride IVPB 200 mls/hr BID [facility] Administration Insulin Aspart 1 vial 04/11/19 16:30 04/15/19 06:28 Novolog Vial Sliding Scale - SQ 2 units ACHS [facility] Administration Protocol Insulin Detemir 10 units 04/14/19 14:18 04/14/19 22:08 Levemir Vial SQ 10 unit HS [facility] Administration Letrozole 2.5 mg 04/12/19 10:00 04/14/19 09:26 Femara - PO 2.5 mg DAILY [facility] Administration Levothyroxine Sodium 112 mcg 04/12/19 07:00 04/15/19 06:27 Synthroid - PO 112 mcg DAILY@0700 [facility] Administration Losartan Potassium 50 mg 04/13/19 15:15 04/14/19 09:27 Cozaar - PO 50 mg DAILY [facility] Administration Multivitamins/Minerals/Vitamin C 1 tab 04/12/19 10:00 04/14/19 09:27 Tab-A-Vit - PO 1 tab DAILY [facility] Administration Pregabalin 25 mg 04/11/19 22:00 04/14/19 22:05 Lyrica - PO 25 mg BID [facility] Administration Vital Signs Period Temp Pulse Resp BP Sys/Hernandez Pulse Ox Last 24 Hr 97.7 F-98.7 F 74-80 18-18 131-147/53-70 95 Constitutional: Yes: Well Nourished, No Distress, Calm Cardiovascular: Yes: Regular Rate and Rhythm, JVD, S1, S2. No: Gallop, Murmur Respiratory: Yes: Regular, CTA Bilaterally. No: Accessory Muscle Use, Rales, Wheezes Extremities: No: Cold Edema: trace le edema bl Neurological: Yes: Alert, Oriented Psychiatric: No: Agitated CBC, BMP 04/15/19 07:58 04/15/19 07:58 Assessment/Plan EKG: sinus,nl intervals, no ischemic changes CXR: + congestive changes echo 03/2019 nl LV function, mild MR, mild TR, PASP at least 49 mmHg acute diastolic heart failure exacerbation - recent echo nl LV function, mild pulm HTN - CT chest bilat effusions and vascular congestion pattern, with + flank subcutaneous edema. - receiving iv lasix 80 BID, still with vol overload. monitor daily cr, lytes. 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
[2019-04-15] MEDS ORDERED: AMPICILLIN NA/SULBACTAM NA 1.5 GM VIAL ONE ×2 (11:08→21:11)
[2019-04-15] MEDS ORDERED: SODIUM CHLORIDE 100 ML IVPB ONE ×2 (11:08→21:11)
[2019-04-15] MEDS: AMPICILLIN NA/SULBACTAM NA 1.5 GM in SODIUM CHLORIDE 100 ML IVPB SCH ×2 (11:10→21:55)
[2019-04-15] MEDS: ASPIRIN 81 MG CHEWABLE TABLETS PO SCH (11:10)
[2019-04-15] MEDS: PREGABALIN 25 MG CAPSULE PO SCH ×2 (11:11→21:49)
[2019-04-15] MEDS: MULTIVITAMINS (DAILY MVI) TABLET (FP) PO SCH (11:11)
[2019-04-15] MEDS: LOSARTAN POTASSIUM 50 MG TABLET (FP) PO SCH (11:11)
[2019-04-15] MEDS: CARVEDILOL 25 MG TABLET (FP) PO SCH ×2 (11:11→21:50)
[2019-04-15] MEDS: FAMOTIDINE 20 MG TABLET PO SCH (11:11)
[2019-04-15] MEDS: LETROZOLE 2.5 MG TABLET (FP) PO SCH (11:14)
[2019-04-15] MEDS ORDERED: INSULIN (NOVOLOG) ASPART 100 UNITS/ML 10ML VIAL ONE (11:15)
--- NOTE | 2019-04-15 12:10 | PN ---
Progress Note, SITE MANAGER - Note Progress Note: Selected Entries 04/11/19 04/11/19 04/11/19 02:00 06:00 09:53 Breakfast Lunch Supper Temperature 98.2 F 98.8 F 97.9 F 04/11/19 04/11/19 04/11/19 12:31 13:15 15:44 Breakfast 100% Lunch 75% Supper Temperature 97.7 F 97.7 F 04/11/19 04/11/19 04/12/19 18:00 22:00 06:00 Breakfast Lunch Supper 75% Temperature 98.1 F 97.8 F 98.1 F 04/12/19 10:00 Breakfast Lunch Supper Temperature 97.5 F L Selected Entries 04/14/19 04/14/19 04/14/19 06:00 09:20 16:00 Breakfast 75% Lunch 75% Supper Temperature 97.6 F 97.8 F 98.7 F 04/14/19 04/14/19 04/14/19 17:25 18:00 22:00 Breakfast Lunch Supper 75% Temperature 98.2 F 98.0 F 04/15/19 04/15/19 06:42 10:00 Breakfast Lunch Supper Temperature 98.0 F 97.7 F Laboratory Tests 04/13/19 04/15/19 06:55 07:58 WBC 12.1 H 13.0 H No longer becoming SOB when she eats. Pt disliked chopped food. She is tolerating soft,reg diet.
--- NOTE | 2019-04-15 13:13 | PN ---
Progress Note, Physician History of Present Illness: still very weak - Current Medication List Current Medications: Active Medications Acetaminophen (Tylenol -) 650 mg PO Q6H PRN PRN Reason: PAIN Last Admin: 04/13/19 11:28 Dose: 650 mg Aspirin (Asa -) 81 mg PO DAILY [facility] Last Admin: 04/15/19 11:10 Dose: 81 mg Carvedilol (Coreg -) 25 mg PO BID [facility] Last Admin: 04/15/19 11:11 Dose: 25 mg Famotidine (Pepcid -) 20 mg PO DAILY [facility] Last Admin: 04/15/19 11:11 Dose: 20 mg Furosemide (Lasix Injection -) 80 mg IVPUSH BIDLASIX [facility] Last Admin: 04/15/19 06:29 Dose: 80 mg Heparin Sodium (Porcine) (Heparin -) 5,000 unit SQ TID [facility] Last Admin: 04/15/19 06:30 Dose: 5,000 unit Hydralazine HCl (Apresoline -) 20 mg PO TID [facility] Last Admin: 04/15/19 06:27 Dose: 20 mg Ampicillin Sodium/Sulbactam (Sodium 1.5 gm/ Sodium Chloride) 100 mls @ 200 mls/ hr IVPB BID [facility] Last Admin: 04/15/19 11:10 Dose: 200 mls/hr Insulin Aspart (Novolog Vial Sliding Scale -) 1 vial SQ ACHS [facility]; Protocol Last Admin: 04/15/19 11:19 Dose: 6 units Insulin Detemir (Levemir Vial) 10 units SQ HS [facility] Last Admin: 04/14/19 22:08 Dose: 10 unit Letrozole (Femara -) 2.5 mg PO DAILY [facility] Last Admin: 04/15/19 11:14 Dose: 2.5 mg Levothyroxine Sodium (Synthroid -) 112 mcg PO DAILY@0700 [facility] Last Admin: 04/15/19 06:27 Dose: 112 mcg Losartan Potassium (Cozaar -) 50 mg PO DAILY [facility] Last Admin: 04/15/19 11:11 Dose: 50 mg Multivitamins/Minerals/Vitamin C (Tab-A-Vit -) 1 tab PO DAILY [facility] Last Admin: 04/15/19 11:11 Dose: 1 tab Pregabalin (Lyrica -) 25 mg PO BID [facility] Last Admin: 04/15/19 11:11 Dose: 25 mg - Objective Vital Signs: Vital Signs Temperature 97.7 F 04/15/19 10:00 Pulse Rate 77 04/15/19 11:06 Respiratory Rate 20 04/15/19 11:06 Blood Pressure 157/63 04/15/19 11:06 O2 Sat by Pulse Oximetry (%) 95 04/14/19 21:00 Constitutional: Yes: Calm Cardiovascular: Yes: S1, S2 Respiratory: Yes: Regular, Poor Air Entry (bases) Gastrointestinal: Yes: Normal Bowel Sounds, Soft Musculoskeletal: Yes: WNL Extremities: Yes: Other Edema: LLE: 1+, RLE: 1+ Neurological: Yes: Alert, Oriented Psychiatric: Yes: Alert, Oriented Labs: CBC, BMP 04/15/19 07:58 04/15/19 07:58 INR, PTT INR 1.01 (0.83-1.09) 04/08/19 22:30 Assessment/Plan Problem List - Problems (1) Acute diastolic (congestive) heart failure Code(s): I50.31 - ACUTE DIASTOLIC (CONGESTIVE) HEART FAILURE (2) Acute kidney injury superimposed on CKD Code(s): N17.9 - ACUTE KIDNEY FAILURE, UNSPECIFIED; N18.9 - CHRONIC KIDNEY DISEASE, UNSPECIFIED (3) Anemia Code(s): D64.9 - ANEMIA, UNSPECIFIED Qualifiers: Anemia type: unspecified type Qualified Code(s): D64.9 - Anemia, unspecified (4) Bilateral leg edema Code(s): R60.0 - LOCALIZED EDEMA (5) Hypothyroid Code(s): E03.9 - HYPOTHYROIDISM, UNSPECIFIED Qualifiers: Hypothyroidism type: unspecified Qualified Code(s): E03.9 - Hypothyroidism , unspecified (6) Shortness of breath Code(s): R06.02 - SHORTNESS OF BREATH (7) Breast cancer, left Code(s): C50.912 - MALIGNANT NEOPLASM OF UNSPECIFIED SITE OF LEFT FEMALE BREAST (8) Diabetes Code(s): E11.9 - TYPE 2 DIABETES MELLITUS WITHOUT COMPLICATIONS Qualifiers: Diabetes mellitus type: type 2 (9) GERD (gastroesophageal reflux disease) Code(s): K21.9 - GASTRO-ESOPHAGEAL REFLUX DISEASE WITHOUT ESOPHAGITIS (10) HTN (hypertension) Code(s): I10 - ESSENTIAL (PRIMARY) HYPERTENSION (11) History of CVA with residual deficit Code(s): I69.30 - UNSPECIFIED SEQUELAE OF CEREBRAL INFARCTION (12) Lower extremity cellulitis Code(s): L03.119 - CELLULITIS OF UNSPECIFIED PART OF LIMB Assessment/Plan 89 y.o. female with PMH of DM, CKD, HTN, HLD, anemia, Lt breast CA s/p lumpectomy/RT, hypothyroidism, CVA, GBS, remote history of meningitis presents with complaints of worsening SOB and b/l LE edema that began several days [employer] REPA[employer]ER after recent hospital discharge. Treated for b/l LE cellulitis with some improvement. Noted to have leukocytosis, LE erythema, worsening renal function and anemia b/l LE cellulitis Leukocytosis SOB b/l LE edema Acute diastolic HF Anemia Acute on chronic RF DM HTN Hx of Lt Breast CA Hypothyroidism Hx of CVAs plan continue current mgmt abx monitor wbc elevation of the leg will probably deescalte tomorrow
--- NOTE | 2019-04-15 14:28 | PN ---
Progress Note, Physician History of Present Illness: Pt seen and examined at bedside. She is awake and appears comfortable today. She denies chest pain. - Current Medication List Current Medications: Active Medications Acetaminophen (Tylenol -) 650 mg PO Q6H PRN PRN Reason: PAIN Last Admin: 04/13/19 11:28 Dose: 650 mg Aspirin (Asa -) 81 mg PO DAILY [facility] Last Admin: 04/15/19 11:10 Dose: 81 mg Carvedilol (Coreg -) 25 mg PO BID [facility] Last Admin: 04/15/19 11:11 Dose: 25 mg Famotidine (Pepcid -) 20 mg PO DAILY [facility] Last Admin: 04/15/19 11:11 Dose: 20 mg Furosemide (Lasix Injection -) 80 mg IVPUSH BIDLASIX [facility] Last Admin: 04/15/19 06:29 Dose: 80 mg Heparin Sodium (Porcine) (Heparin -) 5,000 unit SQ TID [facility] Last Admin: 04/15/19 06:30 Dose: 5,000 unit Hydralazine HCl (Apresoline -) 20 mg PO TID [facility] Last Admin: 04/15/19 06:27 Dose: 20 mg Ampicillin Sodium/Sulbactam (Sodium 1.5 gm/ Sodium Chloride) 100 mls @ 200 mls/ hr IVPB BID [facility] Last Admin: 04/15/19 11:10 Dose: 200 mls/hr Insulin Aspart (Novolog Vial Sliding Scale -) 1 vial SQ ACHS [facility]; Protocol Last Admin: 04/15/19 11:19 Dose: 6 units Insulin Detemir (Levemir Vial) 10 units SQ HS [facility] Last Admin: 04/14/19 22:08 Dose: 10 unit Letrozole (Femara -) 2.5 mg PO DAILY [facility] Last Admin: 04/15/19 11:14 Dose: 2.5 mg Levothyroxine Sodium (Synthroid -) 112 mcg PO DAILY@0700 [facility] Last Admin: 04/15/19 06:27 Dose: 112 mcg Losartan Potassium (Cozaar -) 50 mg PO DAILY [facility] Last Admin: 04/15/19 11:11 Dose: 50 mg Multivitamins/Minerals/Vitamin C (Tab-A-Vit -) 1 tab PO DAILY [facility] Last Admin: 04/15/19 11:11 Dose: 1 tab Pregabalin (Lyrica -) 25 mg PO BID [facility] Last Admin: 04/15/19 11:11 Dose: 25 mg - Objective Vital Signs: Vital Signs Temperature 97.7 F 04/15/19 10:00 Pulse Rate 77 04/15/19 11:06 Respiratory Rate 20 04/15/19 11:06 Blood Pressure 157/63 04/15/19 11:06 O2 Sat by Pulse Oximetry (%) 96 04/15/19 09:00 Constitutional: Yes: Calm Eyes: Yes: Conjunctiva Clear HENT: Yes: Atraumatic Neck: Yes: Supple Cardiovascular: Yes: S1, S2 Respiratory: Yes: On Nasal O2 Gastrointestinal: Yes: Normal Bowel Sounds, Soft Musculoskeletal: Yes: WNL Edema: Yes Edema: LLE: 2+, RLE: 2+ Integumentary: Yes: Venous Stasis Changes Neurological: Yes: Oriented Psychiatric: Yes: Oriented Labs: CBC, BMP 04/15/19 07:58 04/15/19 07:58 INR, PTT INR 1.01 (0.83-1.09) 04/08/19 22:30 Assessment/Plan Current Medications Generic Name Dose Route Start Last Admin Trade Name Moiseq PRN Reason Stop Dose Admin Acetaminophen 650 mg 04/11/19 13:59 04/13/19 11:28 Tylenol - PO 650 mg Q6H PRN Administration PAIN Aspirin 81 mg 04/12/19 10:00 04/15/19 11:10 Asa - PO 81 mg DAILY [facility] Administration Carvedilol 25 mg 04/11/19 22:00 04/15/19 11:11 Coreg - PO 25 mg BID [facility] Administration Famotidine 20 mg 04/12/19 10:00 04/15/19 11:11 Pepcid - PO 20 mg DAILY [facility] Administration Furosemide 80 mg 04/12/19 16:00 04/15/19 06:29 Lasix Injection - IVPUSH 80 mg BIDLASIX [facility] Administration Heparin Sodium (Porcine) 5,000 unit 04/11/19 14:00 04/15/19 06:30 Heparin - SQ 5,000 unit TID [facility] Administration Hydralazine HCl 20 mg 04/11/19 14:00 04/15/19 06:27 Apresoline - PO 20 mg TID [facility] Administration Ampicillin Sodium/Sulbactam 100 mls @ 200 mls/hr 04/11/19 22:00 04/15/19 11: 10 Sodium 1.5 gm/ Sodium Chloride IVPB 200 mls/hr BID [facility] Administration Insulin Aspart 1 vial 04/11/19 16:30 04/15/19 11:19 Novolog Vial Sliding Scale - SQ 6 units ACHS [facility] Administration Protocol Insulin Detemir 10 units 04/14/19 14:18 04/14/19 22:08 Levemir Vial SQ 10 unit HS [facility] Administration Letrozole 2.5 mg 04/12/19 10:00 04/15/19 11:14 Femara - PO 2.5 mg DAILY [facility] Administration Levothyroxine Sodium 112 mcg 04/12/19 07:00 04/15/19 06:27 Synthroid - PO 112 mcg DAILY@0700 [facility] Administration Losartan Potassium 50 mg 04/13/19 15:15 04/15/19 11:11 Cozaar - PO 50 mg DAILY [facility] Administration Multivitamins/Minerals/Vitamin C 1 tab 04/12/19 10:00 04/15/19 11:11 Tab-A-Vit - PO 1 tab DAILY [facility] Administration Pregabalin 25 mg 04/11/19 22:00 04/15/19 11:11 Lyrica - PO 25 mg BID [facility] Administration Impression 1. proteinuria 2. hypothyroid 3. HTN 4. DM 5. fluid overload 6. breast cancer 7. MAURICE 8. CKD Plan - cont lasix - cont losartan - monitor renal function - cardio input appreciated - [address] Sequeira
--- NOTE | 2019-04-15 14:33 | PN ---
Progress Note (short form) - Note Progress Note: Hospitalist Medicine Josey. Feeling well. Was sleepy this AM Vitals 04/15/19 11:06 Pulse Rate 77 Respiratory 20 Rate Blood Pressure 157/63 Physical Exam general: resting in bed, in NAD heent: NCAT neck: supple cardio: S1, S2, RRR. no r/m/g pulm: +scattered rhonchi. no accessory m usage abdomen: nontender,nondistended LE: 1+ edema, +chronic changes, erythema b/l. neuro: Consultant Education 2-12 grossly intact Laboratory Tests 04/14/19 04/15/19 04/15/19 13:50 07:58 07:58 WBC 13.0 H Hgb 7.2 L Hct 21.9 L Plt Count 274 Basophils % 5.2 H* Basophils % (Manual) 7.8 H* D Sodium 140 Potassium 3.5 Chloride 104 Carbon Dioxide 26 Anion Gap 9 BUN 64.0 H Creatinine 2.6 H Random Glucose 176 H Calcium 8.3 L Phosphorus 5.7 H Troponin I < 0.02 < 0.02 Microbiology 04/09/19 01:55 Urine - Urine Clean Catch Urine Culture - Final NO GROWTH OBTAINED 04/08/19 22:40 Blood - Peripheral Venous Blood Culture - Preliminary NO GROWTH OBTAINED AFTER 72 HOURS, INCUBATION TO CONTINUE FOR 2 DAYS. 04/08/19 22:15 Blood - Peripheral Venous Blood Culture - Preliminary NO GROWTH OBTAINED AFTER 72 HOURS, INCUBATION TO CONTINUE FOR 2 DAYS. Imaging 04/12/19: CXR: congestive changes have diminished. still fluid with atelectasis or infiltrate at L base. 04/09/19: EKG: NSR, rate 79bpm, AR 208ms*, qtc 486ms 04/09/19: CT chest: interstitial pulm vascular congestion with pleural effusions, and resultant bibasilar compressive atelectasis. bilateral flank subcutaneous edema. cardiomegaly is noted. no discrete infiltrate. nonspecific approx 1.5x1.1cm L breast soft tissue nodule noted adjacent to chest wall. post- surgical changes are noted. follow up mammo with attention to chest wall region suggested with comparison to mammo from 03/23/18. 04/08/19: CXR: worse; progressive congestive and infiltrative changes, with persistently widened mediastinum. 04/08/19: duplex: (-) for DVT Assessment/Plan 89 F PMH HTN, HLD, Left breast cancer, Hypothyroidism, GERD, NIDDM and Multiple CVAs, recently admitted at [place] for bilateral LE cellulitis (discharged 04/06/19) , who presented with acute HFpEF exacerbation and exacerbation of LE b /l cellulitis. #Acute on chronic HFpEF -lasix 80mg IVP BID -sx improved -insert her for accurate wts, bladder scan PRN -monitor weights, i/o. na control 2g -Cardio: Dr. Ly #Chest pain r/o ACS - resolved -EKG reviewed. no acute change. trop (-)x2 #Chronic LE cellulitis -on unasyn (04/11), will likely deescalate tomorrow -f/u ucx, blood cx (-) thus far -c/w lyrica for neuropathy -ID: Dr. Khanna #MAURICE on CKD -likely w/ cardiorenal syndrome, c/w diuresis -avoid NSAID's -c/t monitor -Renal: Dr. Sequeira #HTN-controlled -c/w hydralazine, lasix, coreg -restarted on losartan #DM2 -levemir uptitrated to 10u sq HS -placed on diabetic diet -ISS, BGM ACHS #hx multiple CVA -on asa -not on lipitor; out of age bracket for ASCVD #hx L breast CA -c/w letrozole -outpt mammo f/u #F/E/N avoid IVF as with CHF continue to follow lytes soft diet. +na controlled (2g), diabetic #PPX DVT: hep TID GI: on pepcid #Dispo monitoring on med-surg
--- NOTE | 2019-04-15 14:43 | PN ---
Teaching Attending Note Name of Resident: Kassandra Watson ATTENDING PHYSICIAN STATEMENT I saw and evaluated the patient. I reviewed the resident's note and discussed the case with the resident. I agree with the resident's findings and plan as documented. SUBJECTIVE: Seen and examined at bedside, no acute events overnight. OBJECTIVE: Vital Signs - 24 hr 04/14/19 04/14/19 04/14/19 16:00 18:00 21:00 Temperature 98.7 F 98.2 F Pulse Rate 75 74 Respiratory 18 18 Rate Blood Pressure 134/59 L 135/70 O2 Sat by Pulse 95 Oximetry (%) 04/14/19 04/15/19 04/15/19 22:00 06:42 09:00 Temperature 98.0 F 98.0 F Pulse Rate 74 79 Respiratory 18 18 20 Rate Blood Pressure 131/58 L 143/63 O2 Sat by Pulse 96 Oximetry (%) 04/15/19 04/15/19 10:00 11:06 Temperature 97.7 F Pulse Rate 80 77 Respiratory 18 20 Rate Blood Pressure 147/53 L 157/63 O2 Sat by Pulse Oximetry (%) PE: GENERAL: NAD HEART: S1S2, RRR LUNGS: decreased breath sounds bilateral lower lobes, unlabored ABDOMEN: Obese, soft, non-tender, non-distended, normal BS EXTREMITIES: 1+ edema, resolving cellulitis on bilateral lower extremities Current Medications Acetaminophen (Tylenol -) 650 mg PO Q6H PRN PRN Reason: PAIN Last Admin: 04/13/19 11:28 Dose: 650 mg Aspirin (Asa -) 81 mg PO DAILY [facility] Last Admin: 04/15/19 11:10 Dose: 81 mg Carvedilol (Coreg -) 25 mg PO BID [facility] Last Admin: 04/15/19 11:11 Dose: 25 mg Famotidine (Pepcid -) 20 mg PO DAILY [facility] Last Admin: 04/15/19 11:11 Dose: 20 mg Furosemide (Lasix Injection -) 80 mg IVPUSH BIDLASIX [facility] Last Admin: 04/15/19 06:29 Dose: 80 mg Heparin Sodium (Porcine) (Heparin -) 5,000 unit SQ TID [facility] Last Admin: 04/15/19 06:30 Dose: 5,000 unit Hydralazine HCl (Apresoline -) 20 mg PO TID [facility] Last Admin: 04/15/19 06:27 Dose: 20 mg Ampicillin Sodium/Sulbactam (Sodium 1.5 gm/ Sodium Chloride) 100 mls @ 200 mls/ hr IVPB BID [facility] Last Admin: 04/15/19 11:10 Dose: 200 mls/hr Insulin Aspart (Novolog Vial Sliding Scale -) 1 vial SQ ACHS [facility]; Protocol Last Admin: 04/15/19 11:19 Dose: 6 units Insulin Detemir (Levemir Vial) 10 units SQ HS [facility] Last Admin: 04/14/19 22:08 Dose: 10 unit Letrozole (Femara -) 2.5 mg PO DAILY [facility] Last Admin: 04/15/19 11:14 Dose: 2.5 mg Levothyroxine Sodium (Synthroid -) 112 mcg PO DAILY@0700 [facility] Last Admin: 04/15/19 06:27 Dose: 112 mcg Losartan Potassium (Cozaar -) 50 mg PO DAILY [facility] Last Admin: 04/15/19 11:11 Dose: 50 mg Multivitamins/Minerals/Vitamin C (Tab-A-Vit -) 1 tab PO DAILY [facility] Last Admin: 04/15/19 11:11 Dose: 1 tab Pregabalin (Lyrica -) 25 mg PO BID [facility] Last Admin: 04/15/19 11:11 Dose: 25 mg Laboratory Results - last 24 hr 04/14/19 04/14/19 04/15/19 17:14 22:03 06:24 WBC RBC Hgb Hct MCV MCH MCHC RDW Plt Count MPV Absolute Neuts (auto) Neutrophils % Neutrophils % (Manual) Band Neutrophils % Lymphocytes % Lymphocytes % (Manual) Monocytes % Monocytes % (Manual) Eosinophils % Eosinophils % (Manual) Basophils % Basophils % (Manual) Myelocytes % (Man) Promyelocytes % (Man) Blast Cells % (Manual) Nucleated RBC % Metamyelocytes Hypochromia Platelet Estimate Polychromasia Poikilocytosis Anisocytosis Microcytosis Macrocytosis Stomatocytes Sodium Potassium Chloride Carbon Dioxide Anion Gap BUN Creatinine Est GFR (CKD-EPI)AfAm Est GFR (CKD-EPI)NonAf POC Glucometer 220 261 167 Random Glucose Calcium Phosphorus Magnesium Troponin I 04/15/19 04/15/19 04/15/19 07:58 07:58 11:03 WBC 13.0 H RBC 2.18 L Hgb 7.2 L Hct 21.9 L MCV 100.5 H MCH 33.1 MCHC 32.9 RDW 17.0 H Plt Count 274 MPV 7.8 Absolute Neuts (auto) 8.3 H Neutrophils % 63.9 Neutrophils % (Manual) 62.8 Band Neutrophils % 0.0 Lymphocytes % 10.7 Lymphocytes % (Manual) 12.7 D Monocytes % 11.4 H Monocytes % (Manual) 7 Eosinophils % 8.8 H Eosinophils % (Manual) 4.9 H Basophils % 5.2 H* Basophils % (Manual) 7.8 H* D Myelocytes % (Man) 2 D Promyelocytes % (Man) 0 Blast Cells % (Manual) 0 Nucleated RBC % 0 Metamyelocytes 3 H Hypochromia 0 Platelet Estimate Normal Polychromasia 1+ Poikilocytosis 2+ Anisocytosis 2+ Microcytosis 0 Macrocytosis 2+ Stomatocytes 2+ Sodium 140 Potassium 3.5 Chloride 104 Carbon Dioxide 26 Anion Gap 9 BUN 64.0 H Creatinine 2.6 H Est GFR (CKD-EPI)AfAm 18.22 Est GFR (CKD-EPI)NonAf 15.72 POC Glucometer 278 Random Glucose 176 H Calcium 8.3 L Phosphorus 5.7 H Magnesium 2.3 Troponin I < 0.02 all imaging reports reviewed ASSESSMENT: This is an 89 year old woman with a history of HTN, hyperlipidemia, type 2 DM, CVAs, hypothyroidism, GERD, breast cancer who presented to the ED with SOB. Acute on chronic diastolic heart failure Cellulitis MAURICE Stage 4 CKD HTN DM2 HLD Hypothyroidism GERD Hx CVA Hx Breast CA Macrocytic Anemia Plan: -poor diuresis, bladder scan, her for accurate i/os -c/w IV lasix -monitor i/os and daily weights -NA and fluid restriction -c/w IV unasyn, legs improving, day 5 -monitor renal function -replete lytes as needed -c/w current mngmt -cardio eval appreciated
[2019-04-15] MEDS: INSULIN (LEVEMIR) 100 UNITS/ML UNITS SQ SCH (21:52)
[2019-04-16] MEDS: hydrALAZINE HCL 10 MG TABLET PO SCH ×3 (06:42→22:26)
[2019-04-16] MEDS: LEVOTHYROXINE NA 112 MCG TABLET (FP) PO SCH (06:43)
[2019-04-16] MEDS: INSULIN SLIDING SCALE (NOVOLOG) 1 VIAL SQ SCH ×4 (06:44→22:31)
[2019-04-16] MEDS: FUROSEMIDE 40 MG/4 ML INJECTABLE VIAL IVPUSH SCH ×2 (06:44→15:24)
[2019-04-16] MEDS: HEPARIN NA (PORCINE) 5,000 UNITS/ML 1ML VIAL SQ SCH ×3 (06:44→22:27)
[2019-04-16] MEDS ORDERED: SODIUM CHLORIDE 100 ML IVPB ONE (09:39)
[2019-04-16] MEDS ORDERED: AMPICILLIN NA/SULBACTAM NA 1.5 GM VIAL ONE (09:39)
[2019-04-16] MEDS: CARVEDILOL 25 MG TABLET (FP) PO SCH ×2 (09:52→22:27)
[2019-04-16] MEDS: AMPICILLIN NA/SULBACTAM NA 1.5 GM in SODIUM CHLORIDE 100 ML IVPB SCH (09:52)
[2019-04-16] MEDS: MULTIVITAMINS (DAILY MVI) TABLET (FP) PO SCH (09:52)
[2019-04-16] MEDS: PREGABALIN 25 MG CAPSULE PO SCH ×2 (09:52→22:27)
[2019-04-16] MEDS: LOSARTAN POTASSIUM 50 MG TABLET (FP) PO SCH (09:53)
[2019-04-16] MEDS: ASPIRIN 81 MG CHEWABLE TABLETS PO SCH (09:53)
[2019-04-16] MEDS: LETROZOLE 2.5 MG TABLET (FP) PO SCH (09:53)
[2019-04-16] MEDS: FAMOTIDINE 20 MG TABLET PO SCH (09:54)
[2019-04-16 09:57] LABS: CALCIUM 8.5 mg/dL (8.5-10.1); CREATININE 2.6 mg/dL (0.55-1.3)
--- NOTE | 2019-04-16 10:16 | PN ---
Progress Note, Physician History of Present Illness: stable no new issues - Current Medication List Current Medications: Active Medications Acetaminophen (Tylenol -) 650 mg PO Q6H PRN PRN Reason: PAIN Last Admin: 04/13/19 11:28 Dose: 650 mg Aspirin (Asa -) 81 mg PO DAILY [facility] Last Admin: 04/16/19 09:53 Dose: 81 mg Carvedilol (Coreg -) 25 mg PO BID [facility] Last Admin: 04/16/19 09:52 Dose: 25 mg Famotidine (Pepcid -) 20 mg PO DAILY [facility] Last Admin: 04/16/19 09:54 Dose: 20 mg Furosemide (Lasix Injection -) 80 mg IVPUSH BIDLASIX [facility] Last Admin: 04/16/19 06:44 Dose: 80 mg Heparin Sodium (Porcine) (Heparin -) 5,000 unit SQ TID [facility] Last Admin: 04/16/19 06:44 Dose: 5,000 unit Hydralazine HCl (Apresoline -) 20 mg PO TID [facility] Last Admin: 04/16/19 06:42 Dose: 20 mg Insulin Aspart (Novolog Vial Sliding Scale -) 1 vial SQ [facility]; Protocol Last Admin: 04/16/19 06:44 Dose: 2 units Insulin Detemir (Levemir Vial) 10 units SQ HS [facility] Last Admin: 04/15/19 21:52 Dose: 10 unit Letrozole (Femara -) 2.5 mg PO DAILY [facility] Last Admin: 04/16/19 09:53 Dose: 2.5 mg Levothyroxine Sodium (Synthroid -) 112 mcg PO DAILY@0700 [facility] Last Admin: 04/16/19 06:43 Dose: 112 mcg Losartan Potassium (Cozaar -) 50 mg PO DAILY [facility] Last Admin: 04/16/19 09:53 Dose: 50 mg Multivitamins/Minerals/Vitamin C (Tab-A-Vit -) 1 tab PO DAILY [facility] Last Admin: 04/16/19 09:52 Dose: 1 tab Pregabalin (Lyrica -) 25 mg PO BID [facility] Last Admin: 04/16/19 09:52 Dose: 25 mg - Objective Vital Signs: Vital Signs Temperature 98.9 F 04/16/19 09:24 Pulse Rate 76 04/16/19 09:24 Respiratory Rate 18 04/16/19 09:24 Blood Pressure 132/51 L 04/16/19 09:24 O2 Sat by Pulse Oximetry (%) 98 04/15/19 21:00 Constitutional: Yes: No Distress, Calm Cardiovascular: Yes: S1, S2 Respiratory: Yes: Regular, CTA Bilaterally Gastrointestinal: Yes: Normal Bowel Sounds, Soft Musculoskeletal: Yes: WNL Extremities: Yes: WNL Neurological: Yes: Alert, Oriented Psychiatric: Yes: Alert, Oriented Labs: CBC, BMP 04/15/19 07:58 04/16/19 07:30 INR, PTT INR 1.01 (0.83-1.09) 04/08/19 22:30 Assessment/Plan Problem List - Problems (1) Acute diastolic (congestive) heart failure Code(s): I50.31 - ACUTE DIASTOLIC (CONGESTIVE) HEART FAILURE (2) Acute kidney injury superimposed on CKD Code(s): N17.9 - ACUTE KIDNEY FAILURE, UNSPECIFIED; N18.9 - CHRONIC KIDNEY DISEASE, UNSPECIFIED (3) Anemia Code(s): D64.9 - ANEMIA, UNSPECIFIED Qualifiers: Anemia type: unspecified type Qualified Code(s): D64.9 - Anemia, unspecified (4) Bilateral leg edema Code(s): R60.0 - LOCALIZED EDEMA (5) Hypothyroid Code(s): E03.9 - HYPOTHYROIDISM, UNSPECIFIED Qualifiers: Hypothyroidism type: unspecified Qualified Code(s): E03.9 - Hypothyroidism , unspecified (6) Shortness of breath Code(s): R06.02 - SHORTNESS OF BREATH (7) Breast cancer, left Code(s): C50.912 - MALIGNANT NEOPLASM OF UNSPECIFIED SITE OF LEFT FEMALE BREAST (8) Diabetes Code(s): E11.9 - TYPE 2 DIABETES MELLITUS WITHOUT COMPLICATIONS Qualifiers: Diabetes mellitus type: type 2 (9) GERD (gastroesophageal reflux disease) Code(s): K21.9 - GASTRO-ESOPHAGEAL REFLUX DISEASE WITHOUT ESOPHAGITIS (10) HTN (hypertension) Code(s): I10 - ESSENTIAL (PRIMARY) HYPERTENSION (11) History of CVA with residual deficit Code(s): I69.30 - UNSPECIFIED SEQUELAE OF CEREBRAL INFARCTION (12) Lower extremity cellulitis Code(s): L03.119 - CELLULITIS OF UNSPECIFIED PART OF LIMB Assessment/Plan 89 y.o. female with PMH of DM, CKD, HTN, HLD, anemia, Lt breast CA s/p lumpectomy/RT, hypothyroidism, CVA, GBS, remote history of meningitis presents with complaints of worsening SOB and b/l LE edema that began several days [employer] after recent hospital discharge. Treated for b/l LE cellulitis with some improvement. Noted to have leukocytosis, LE erythema, worsening renal function and anemia b/l LE cellulitis Leukocytosis SOB b/l LE edema Acute diastolic HF Anemia Acute on chronic RF DM HTN Hx of Lt Breast CA Hypothyroidism Hx of CVAs plan continue current mgmt will stop abx and monitor
--- NOTE | 2019-04-16 10:39 | PN ---
Progress Note, Physician Chief Complaint: some SOB last nigh, better this AM No CP or palps. - Current Medication List Current Medications: Active Medications Acetaminophen (Tylenol -) 650 mg PO Q6H PRN PRN Reason: PAIN Last Admin: 04/13/19 11:28 Dose: 650 mg Aspirin (Asa -) 81 mg PO DAILY [facility] Last Admin: 04/16/19 09:53 Dose: 81 mg Carvedilol (Coreg -) 25 mg PO BID [facility] Last Admin: 04/16/19 09:52 Dose: 25 mg Famotidine (Pepcid -) 20 mg PO DAILY [facility] Last Admin: 04/16/19 09:54 Dose: 20 mg Furosemide (Lasix Injection -) 80 mg IVPUSH BIDLASIX [facility] Last Admin: 04/16/19 06:44 Dose: 80 mg Heparin Sodium (Porcine) (Heparin -) 5,000 unit SQ TID [facility] Last Admin: 04/16/19 06:44 Dose: 5,000 unit Hydralazine HCl (Apresoline -) 20 mg PO TID [facility] Last Admin: 04/16/19 06:42 Dose: 20 mg Insulin Aspart (Novolog Vial Sliding Scale -) 1 vial SQ [facility]; Protocol Last Admin: 04/16/19 06:44 Dose: 2 units Insulin Detemir (Levemir Vial) 10 units SQ [facility] Last Admin: 04/15/19 21:52 Dose: 10 unit Letrozole (Femara -) 2.5 mg PO DAILY [facility] Last Admin: 04/16/19 09:53 Dose: 2.5 mg Levothyroxine Sodium (Synthroid -) 112 mcg PO DAILY@0700 [facility] Last Admin: 04/16/19 06:43 Dose: 112 mcg Losartan Potassium (Cozaar -) 50 mg PO DAILY [facility] Last Admin: 04/16/19 09:53 Dose: 50 mg Multivitamins/Minerals/Vitamin C (Tab-A-Vit -) 1 tab PO DAILY [facility] Last Admin: 04/16/19 09:52 Dose: 1 tab Pregabalin (Lyrica -) 25 mg PO BID [facility] Last Admin: 04/16/19 09:52 Dose: 25 mg - Objective Vital Signs: Vital Signs Temperature 98.9 F 04/16/19 09:24 Pulse Rate 76 04/16/19 09:24 Respiratory Rate 18 04/16/19 09:24 Blood Pressure 132/51 L 04/16/19 09:24 O2 Sat by Pulse Oximetry (%) 98 04/15/19 21:00 Constitutional: Yes: Calm Cardiovascular: Yes: Regular Rate and Rhythm Respiratory: Yes: Other (rales 1/3 up b/l) Gastrointestinal: Yes: Soft Edema: Yes Edema: LLE: 1+, RLE: 1+ Neurological: Yes: Alert, Oriented Labs: CBC, BMP 04/15/19 07:58 04/16/19 07:30 INR, PTT INR 1.01 (0.83-1.09) 04/08/19 22:30 Laboratory Tests 04/15/19 04/15/19 04/16/19 07:58 07:58 07:30 WBC 13.0 H Hgb 7.2 L Plt Count 274 Sodium 137 Potassium 4.0 Creatinine 2.6 H Troponin I < 0.02 Assessment/Plan Assessment/Plan EKG: sinus,nl intervals, no ischemic changes CXR: + congestive changes echo 03/2019 nl LV function, mild MR, mild TR, PASP at least 49 mmHg acute diastolic heart failure exacerbation: - recent echo nl LV function, mild pulm HTN - CT chest bilat effusions and vascular congestion pattern, with + flank subcutaneous edema. - receiving iv lasix 80 BID, still with vol overload. monitor daily cr, lytes. -consider giving Zaroxolyn 2.5 mg x 1 dose as weight stable, still with rales lower ext cellulitis: - manage per ID, primary HTN - cont current meds MAURICE on CKD: - recent creat 2.2-2.4 - renal following -Daily BMP while on IV lasix cp: -resolved -ecg unremarkable -trop neg x2 -monitor for now
--- NOTE | 2019-04-16 13:36 | PN ---
Progress Note (short form) - Note Progress Note: PULMONARY VSS/AFEBRILE Constitutional: Yes: Awake and alert, NAD Cardiovascular: Yes: Regular Rate and Rhythm, JVD, S1, S2. No: Gallop, Murmur Respiratory: Yes: Scattered bibasilar rhonchi and rales. No: Accessory Muscle Use Extremities: No: Cold Edema: Yes (chronic skin changes) Neurological: Yes: Alert, Oriented Psychiatric: No: Agitated Labs/IMAGES NOTED Problem List (1) Acute kidney injury superimposed on CKD Code(s): N17.9 - ACUTE KIDNEY FAILURE, UNSPECIFIED; N18.9 - CHRONIC KIDNEY DISEASE, UNSPECIFIED (2) Anemia Code(s): D64.9 - ANEMIA, UNSPECIFIED Qualifiers: Anemia type: unspecified type Qualified Code(s): D64.9 - Anemia, unspecified (3) Bilateral leg edema Code(s): R60.0 - LOCALIZED EDEMA (4) Hypothyroid Code(s): E03.9 - HYPOTHYROIDISM, UNSPECIFIED Qualifiers: Hypothyroidism type: unspecified Qualified Code(s): E03.9 - Hypothyroidism , unspecified (5) Pulmonary vascular congestion Code(s): R09.89 - OTH SYMPTOMS AND SIGNS INVOLVING THE CIRC AND RESP SYSTEMS (6) Shortness of breath Code(s): R06.02 - SHORTNESS OF BREATH (7) Breast cancer Code(s): C50.919 - MALIGNANT NEOPLASM OF UNSP SITE OF UNSPECIFIED FEMALE BREAST (8) Breast cancer, left Code(s): C50.912 - MALIGNANT NEOPLASM OF UNSPECIFIED SITE OF LEFT FEMALE BREAST (9) Diabetes Code(s): E11.9 - TYPE 2 DIABETES MELLITUS WITHOUT COMPLICATIONS Qualifiers: Diabetes mellitus type: type 2 (10) History of CVA with residual deficit Code(s): I69.30 - UNSPECIFIED SEQUELAE OF CEREBRAL INFARCTION (11) Lower extremity cellulitis Code(s): L03.119 - CELLULITIS OF UNSPECIFIED PART OF LIMB (12) Acute diastolic (congestive) heart failure Code(s): I50.31 - ACUTE DIASTOLIC (CONGESTIVE) HEART FAILURE IMP DYSPNEA DUE TO ACUTE DIASTOLIC HF LOWER EXT EDEMA ACUTE ON CHRONIC KIDNEY DISEASE H/O LEFT BREAST CA S/P LUMPECTOMY,RT 2015 ANEMIA H/O CVA X 4 WITH LEFT SIDED WEAKNESS HTN H/O GUILLAIN BARRE DM CELLULITIS H/O MENINGITIS H/O RHEUMATIC FEVER PLAN LASIX O2 ABX MONITOR LYTES,RENAL FUNCTION DAILY WTS R JASON GODWIN
[2019-04-16] MEDS ORDERED: METOLAZONE 2.5 MG TABLET (FP) PO ONE (13:51)
--- NOTE | 2019-04-16 13:51 | PN ---
Progress Note, Physician History of Present Illness: Pt seen and examined at bedside. She does not feel much different from yesterday. - Current Medication List Current Medications: Active Medications Acetaminophen (Tylenol -) 650 mg PO Q6H PRN PRN Reason: PAIN Last Admin: 04/13/19 11:28 Dose: 650 mg Aspirin (Asa -) 81 mg PO DAILY [facility] Last Admin: 04/16/19 09:53 Dose: 81 mg Carvedilol (Coreg -) 25 mg PO BID [facility] Last Admin: 04/16/19 09:52 Dose: 25 mg Famotidine (Pepcid -) 20 mg PO DAILY [facility] Last Admin: 04/16/19 09:54 Dose: 20 mg Furosemide (Lasix Injection -) 80 mg IVPUSH BIDLASIX [facility] Last Admin: 04/16/19 06:44 Dose: 80 mg Heparin Sodium (Porcine) (Heparin -) 5,000 unit SQ TID [facility] Last Admin: 04/16/19 06:44 Dose: 5,000 unit Hydralazine HCl (Apresoline -) 20 mg PO TID [facility] Last Admin: 04/16/19 06:42 Dose: 20 mg Insulin Aspart (Novolog Vial Sliding Scale -) 1 vial SQ [facility]; Protocol Last Admin: 04/16/19 11:41 Dose: 4 units Insulin Detemir (Levemir Vial) 10 units SQ HS [facility] Last Admin: 04/15/19 21:52 Dose: 10 unit Letrozole (Femara -) 2.5 mg PO DAILY [facility] Last Admin: 04/16/19 09:53 Dose: 2.5 mg Levothyroxine Sodium (Synthroid -) 112 mcg PO DAILY@0700 [facility] Last Admin: 04/16/19 06:43 Dose: 112 mcg Losartan Potassium (Cozaar -) 50 mg PO DAILY [facility] Last Admin: 04/16/19 09:53 Dose: 50 mg Multivitamins/Minerals/Vitamin C (Tab-A-Vit -) 1 tab PO DAILY [facility] Last Admin: 04/16/19 09:52 Dose: 1 tab Pregabalin (Lyrica -) 25 mg PO BID [facility] Last Admin: 04/16/19 09:52 Dose: 25 mg - Objective Vital Signs: Vital Signs Temperature 98.9 F 04/16/19 09:24 Pulse Rate 76 04/16/19 09:24 Respiratory Rate 18 04/16/19 09:24 Blood Pressure 132/51 L 04/16/19 09:24 O2 Sat by Pulse Oximetry (%) 98 04/16/19 09:00 Constitutional: Yes: Calm Eyes: Yes: Conjunctiva Clear HENT: Yes: Atraumatic Neck: Yes: Supple Cardiovascular: Yes: S1, S2 Respiratory: Yes: On Nasal O2, Rales Gastrointestinal: Yes: Normal Bowel Sounds, Soft Genitourinary: Yes: WNL Musculoskeletal: Yes: WNL Edema: Yes Edema: LLE: 2+, RLE: 2+ Integumentary: Yes: WNL Neurological: Yes: Oriented Psychiatric: Yes: Oriented Labs: CBC, BMP 04/15/19 07:58 04/16/19 07:30 INR, PTT INR 1.01 (0.83-1.09) 04/08/19 22:30 Assessment/Plan Current Medications Generic Name Dose Route Start Last Admin Trade Name Freq PRN Reason Stop Dose Admin Acetaminophen 650 mg 04/11/19 13:59 04/13/19 11:28 Tylenol - PO 650 mg Q6H PRN Administration PAIN Aspirin 81 mg 04/12/19 10:00 04/16/19 09:53 Asa - PO 81 mg DAILY [facility] Administration Carvedilol 25 mg 04/11/19 22:00 04/16/19 09:52 Coreg - PO 25 mg BID [facility] Administration Famotidine 20 mg 04/12/19 10:00 04/16/19 09:54 Pepcid - PO 20 mg DAILY [facility] Administration Furosemide 80 mg 04/12/19 16:00 04/16/19 06:44 Lasix Injection - IVPUSH 80 mg BIDLASIX [facility] Administration Heparin Sodium (Porcine) 5,000 unit 04/11/19 14:00 04/16/19 06:44 Heparin - SQ 5,000 unit TID [facility] Administration Hydralazine HCl 20 mg 04/11/19 14:00 04/16/19 06:42 Apresoline - PO 20 mg TID [facility] Administration Insulin Aspart 1 vial 04/11/19 16:30 04/16/19 11:41 Novolog Vial Sliding Scale - SQ 4 units ACHS [facility] Administration Protocol Insulin Detemir 10 units 04/14/19 14:18 04/15/19 21:52 Levemir Vial SQ 10 unit HS [facility] Administration Letrozole 2.5 mg 04/12/19 10:00 04/16/19 09:53 Femara - PO 2.5 mg DAILY [facility] Administration Levothyroxine Sodium 112 mcg 04/12/19 07:00 04/16/19 06:43 Synthroid - PO 112 mcg DAILY@0700 [facility] Administration Losartan Potassium 50 mg 04/13/19 15:15 04/16/19 09:53 Cozaar - PO 50 mg DAILY [facility] Administration Multivitamins/Minerals/Vitamin C 1 tab 04/12/19 10:00 04/16/19 09:52 Tab-A-Vit - PO 1 tab DAILY [facility] Administration Pregabalin 25 mg 04/11/19 22:00 04/16/19 09:52 Lyrica - PO 25 mg BID [facility] Administration Impression 1. proteinuria 2. hypothyroid 3. HTN 4. DM 5. fluid overload 6. breast cancer 7. MAURICE 8. CKD Plan - cont lasix - will give metolazone - cardio input appreciated - cont losartan - monitor renal function - [address] Sequeira
[2019-04-16] MEDS ORDERED: PT OWN MED DRAWER 7, Y5N ONE ×2 (14:38→22:10)
--- NOTE | 2019-04-16 16:07 | PN ---
Progress Note (short form) - Note Progress Note: Hospitalist Medicine In good spirits. States that she got SOB when eating yesterday, but has been well today. Giggling Vitals 04/16/19 14:00 Temperature 98.9 F Pulse Rate 72 Respiratory 18 Rate Blood Pressure 134/54 L Physical Exam general: resting in bed, in NAD heent: NCAT neck: supple cardio: S1, S2, RRR. no r/m/g pulm: +rales. no accessory m usage abdomen: nontender,nondistended LE: 1+ edema, +chronic changes, erythema b/l. neuro: [employer]ary Surface [employer]inder 2-12 grossly intact Laboratory Tests 04/16/19 04/16/19 06:36 07:30 Sodium 137 Potassium 4.0 Chloride 102 Carbon Dioxide 25 Anion Gap 11 BUN 66.0 H Creatinine 2.6 H Est GFR (CKD-EPI)AfAm 18.22 Est GFR (CKD-EPI)NonAf 15.72 POC Glucometer 153 Random Glucose 159 H Microbiology 04/09/19 01:55 Urine - Urine Clean Catch Urine Culture - Final NO GROWTH OBTAINED 04/08/19 22:40 Blood - Peripheral Venous Blood Culture - Preliminary NO GROWTH OBTAINED AFTER 72 HOURS, INCUBATION TO CONTINUE FOR 2 DAYS. 04/08/19 22:15 Blood - Peripheral Venous Blood Culture - Preliminary NO GROWTH OBTAINED AFTER 72 HOURS, INCUBATION TO CONTINUE FOR 2 DAYS. Imaging 04/12/19: CXR: congestive changes have diminished. still fluid with atelectasis or infiltrate at L base. 04/09/19: EKG: NSR, rate 79bpm, MS 208ms*, qtc 486ms 04/09/19: CT chest: interstitial pulm vascular congestion with pleural effusions, and resultant bibasilar compressive atelectasis. bilateral flank subcutaneous edema. cardiomegaly is noted. no discrete infiltrate. nonspecific approx 1.5x1.1cm L breast soft tissue nodule noted adjacent to chest wall. post- surgical changes are noted. follow up mammo with attention to chest wall region suggested with comparison to mammo from 03/23/18. 04/08/19: CXR: worse; progressive congestive and infiltrative changes, with persistently widened mediastinum. 04/08/19: duplex: (-) for DVT Assessment/Plan 89 F PMH HTN, HLD, Left breast cancer, Hypothyroidism, GERD, NIDDM and Multiple CVAs, recently admitted at [facility] for bilateral LE cellulitis (discharged 04/06/19) , who presented with acute HFpEF exacerbation and exacerbation of LE b /l cellulitis. #Acute on chronic HFpEF -lasix 80mg IVP BID, will receive metolazone 2.5mg x 1 today -refused her for accurate i/o -monitor weights, i/o. na control 2g -Cardio: Dr. Ly #Chest pain r/o ACS - resolved -EKG reviewed. no acute change. trop (-)x2 #Chronic LE cellulitis -completed 6 day course of unasyn (04/11), monitor off abx -f/u ucx, blood cx (-) thus far -c/w lyrica for neuropathy -ID: Dr. Khanna #MAURICE on CKD -likely w/ cardiorenal syndrome, c/w diuresis -avoid NSAID's -c/t monitor -Renal: Dr. Sequeira #HTN-controlled -c/w hydralazine, lasix, coreg -restarted on losartan #DM2 -levemir uptitrated to 10u sq HS -placed on diabetic diet -ISS, BGM ACHS #hx multiple CVA -on asa -not on lipitor; out of age bracket for ASCVD #hx L breast CA -c/w letrozole -outpt mammo f/u #F/E/N avoid IVF as with CHF continue to follow lytes soft diet. +na controlled (2g), diabetic #PPX DVT: hep TID GI: on pepcid #Dispo monitoring on med-surg <Kassandra Watson - Last Filed: 04/16/19 16:07> - Note Progress Note: Patient seen and examined Seen and examined. Please see resident note for further historical information. I personally verified all the goins historical formation and exam findings. Personally in pretted imaging and diagnostics and reviewed appropriate results. I reviewed all labs and vital signs are per the resident note and EMR as documented. I agree with the above assessment and plan unless supplemented by myself and the following. <Perfecto Jones - Last Filed: 04/16/19 16:24>
[2019-04-16] MEDS: INSULIN (LEVEMIR) 100 UNITS/ML UNITS SQ SCH (22:29)
[2019-04-17] MEDS: hydrALAZINE HCL 10 MG TABLET PO SCH ×3 (06:08→21:24)
[2019-04-17] MEDS: FUROSEMIDE 40 MG/4 ML INJECTABLE VIAL IVPUSH SCH ×2 (06:11→14:33)
[2019-04-17] MEDS: HEPARIN NA (PORCINE) 5,000 UNITS/ML 1ML VIAL SQ SCH ×3 (06:11→21:24)
[2019-04-17] MEDS: LEVOTHYROXINE NA 112 MCG TABLET (FP) PO SCH (06:11)
[2019-04-17] MEDS: INSULIN SLIDING SCALE (NOVOLOG) 1 VIAL SQ SCH ×4 (06:27→22:00)
[2019-04-17 08:48] LABS: ALBUMIN 2.7 g/dl (3.4-5.0); BILIRUBIN,TOTAL 0.4 mg/dL (0.2-1); BLOOD UREA NITROGEN 70.7 mg/dL (7-18); CALCIUM 8.3 mg/dL (8.5-10.1); CREATININE 2.6 mg/dL (0.55-1.3); POTASSIUM 3.6 mmol/L (3.5-5.1); TOT PROT 6.2 g/dl (6.4-8.2)
[2019-04-17] MEDS ORDERED: PT OWN MED DRAWER 7, Y5N ONE (09:21)
[2019-04-17] MEDS: FAMOTIDINE 20 MG TABLET PO SCH (09:35)
[2019-04-17] MEDS: MULTIVITAMINS (DAILY MVI) TABLET (FP) PO SCH (09:35)
[2019-04-17] MEDS: ASPIRIN 81 MG CHEWABLE TABLETS PO SCH (09:35)
[2019-04-17] MEDS: LETROZOLE 2.5 MG TABLET (FP) PO SCH (09:35)
[2019-04-17] MEDS: PREGABALIN 25 MG CAPSULE PO SCH ×2 (09:35→21:24)
--- NOTE | 2019-04-17 10:49 | PN ---
Progress Note, Physician History of Present Illness: stable no new issues - Current Medication List Current Medications: Active Medications Acetaminophen (Tylenol -) 650 mg PO Q6H PRN PRN Reason: PAIN Last Admin: 04/13/19 11:28 Dose: 650 mg Aspirin (Asa -) 81 mg PO DAILY [facility] Last Admin: 04/17/19 09:35 Dose: 81 mg Carvedilol (Coreg -) 25 mg PO BID [facility] Last Admin: 04/16/19 22:27 Dose: 25 mg Famotidine (Pepcid -) 20 mg PO DAILY [facility] Last Admin: 04/16/19 09:54 Dose: 20 mg Furosemide (Lasix Injection -) 80 mg IVPUSH BIDLASIX [facility] Last Admin: 04/17/19 06:11 Dose: 80 mg Heparin Sodium (Porcine) (Heparin -) 5,000 unit SQ TID [facility] Last Admin: 04/17/19 06:11 Dose: 5,000 unit Hydralazine HCl (Apresoline -) 20 mg PO TID [facility] Last Admin: 04/17/19 06:08 Dose: 20 mg Insulin Aspart (Novolog Vial Sliding Scale -) 1 vial SQ [facility]; Protocol Last Admin: 04/17/19 06:27 Dose: 2 units Insulin Detemir (Levemir Vial) 10 units SQ HS [facility] Last Admin: 04/16/19 22:29 Dose: 10 unit Letrozole (Femara -) 2.5 mg PO DAILY [facility] Last Admin: 04/17/19 09:35 Dose: 2.5 mg Levothyroxine Sodium (Synthroid -) 112 mcg PO DAILY@0700 [facility] Last Admin: 04/17/19 06:11 Dose: 112 mcg Losartan Potassium (Cozaar -) 50 mg PO DAILY [facility] Last Admin: 04/16/19 09:53 Dose: 50 mg Multivitamins/Minerals/Vitamin C (Tab-A-Vit -) 1 tab PO DAILY [facility] Last Admin: 04/17/19 09:35 Dose: 1 tab Pregabalin (Lyrica -) 25 mg PO BID [facility] Last Admin: 04/17/19 09:35 Dose: 25 mg - Objective Vital Signs: Vital Signs Temperature 97.7 F 04/17/19 09:15 Pulse Rate 76 04/17/19 09:15 Respiratory Rate 24 H 04/17/19 09:15 Blood Pressure 132/43 L 04/17/19 09:15 O2 Sat by Pulse Oximetry (%) 99 04/16/19 21:00 Constitutional: Yes: No Distress, Calm Cardiovascular: Yes: S1, S2 Respiratory: Yes: Regular, CTA Bilaterally Gastrointestinal: Yes: Normal Bowel Sounds, Soft Musculoskeletal: Yes: WNL Extremities: Yes: Other Neurological: Yes: Alert, Oriented Psychiatric: Yes: Alert, Oriented Labs: CBC, BMP 04/15/19 07:58 04/17/19 06:00 INR, PTT INR 1.01 (0.83-1.09) 04/08/19 22:30 Assessment/Plan Problem List - Problems (1) Acute diastolic (congestive) heart failure Code(s): I50.31 - ACUTE DIASTOLIC (CONGESTIVE) HEART FAILURE (2) Acute kidney injury superimposed on CKD Code(s): N17.9 - ACUTE KIDNEY FAILURE, UNSPECIFIED; N18.9 - CHRONIC KIDNEY DISEASE, UNSPECIFIED (3) Anemia Code(s): D64.9 - ANEMIA, UNSPECIFIED Qualifiers: Anemia type: unspecified type Qualified Code(s): D64.9 - Anemia, unspecified (4) Bilateral leg edema Code(s): R60.0 - LOCALIZED EDEMA (5) Hypothyroid Code(s): E03.9 - HYPOTHYROIDISM, UNSPECIFIED Qualifiers: Hypothyroidism type: unspecified Qualified Code(s): E03.9 - Hypothyroidism , unspecified (6) Shortness of breath Code(s): R06.02 - SHORTNESS OF BREATH (7) Breast cancer, left Code(s): C50.912 - MALIGNANT NEOPLASM OF UNSPECIFIED SITE OF LEFT FEMALE BREAST (8) Diabetes Code(s): E11.9 - TYPE 2 DIABETES MELLITUS WITHOUT COMPLICATIONS Qualifiers: Diabetes mellitus type: type 2 (9) GERD (gastroesophageal reflux disease) Code(s): K21.9 - GASTRO-ESOPHAGEAL REFLUX DISEASE WITHOUT ESOPHAGITIS (10) HTN (hypertension) Code(s): I10 - ESSENTIAL (PRIMARY) HYPERTENSION (11) History of CVA with residual deficit Code(s): I69.30 - UNSPECIFIED SEQUELAE OF CEREBRAL INFARCTION (12) Lower extremity cellulitis Code(s): L03.119 - CELLULITIS OF UNSPECIFIED PART OF LIMB Assessment/Plan 89 y.o. 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 Treated for b/l LE cellulitis with some improvement. Noted to have leukocytosis, LE erythema, worsening renal function and anemia b/l LE cellulitis Leukocytosis SOB b/l LE edema Acute diastolic HF Anemia Acute on chronic RF DM HTN Hx of Lt Breast CA Hypothyroidism Hx of CVAs plan continue current mgmt physio
--- NOTE | 2019-04-17 12:29 | PN ---
Progress Note (short form) - Note Progress Note: PULMONARY ALERT/ORIENTED COUGH WITH SCANT SPUTUM VSS/AFEBRILE Constitutional: Yes: Awake and alert, NAD Cardiovascular: Yes: Regular Rate and Rhythm, JVD, S1, S2. No: Gallop, Murmur Respiratory: Yes: Scattered bibasilar rhonchi and rales. No: Accessory Muscle Use Extremities: No: Cold Edema: Yes (chronic skin changes) Neurological: Yes: Alert, Oriented Psychiatric: No: Agitated Labs/IMAGES NOTED Problem List (1) Acute kidney injury superimposed on CKD Code(s): N17.9 - ACUTE KIDNEY FAILURE, UNSPECIFIED; N18.9 - CHRONIC KIDNEY DISEASE, UNSPECIFIED (2) Anemia Code(s): D64.9 - ANEMIA, UNSPECIFIED Qualifiers: Anemia type: unspecified type Qualified Code(s): D64.9 - Anemia, unspecified (3) Bilateral leg edema Code(s): R60.0 - LOCALIZED EDEMA (4) Hypothyroid Code(s): E03.9 - HYPOTHYROIDISM, UNSPECIFIED Qualifiers: Hypothyroidism type: unspecified Qualified Code(s): E03.9 - Hypothyroidism , unspecified (5) Pulmonary vascular congestion Code(s): R09.89 - OTH SYMPTOMS AND SIGNS INVOLVING THE CIRC AND RESP SYSTEMS (6) Shortness of breath Code(s): R06.02 - SHORTNESS OF BREATH (7) Breast cancer Code(s): C50.919 - MALIGNANT NEOPLASM OF UNSP SITE OF UNSPECIFIED FEMALE BREAST (8) Breast cancer, left Code(s): C50.912 - MALIGNANT NEOPLASM OF UNSPECIFIED SITE OF LEFT FEMALE BREAST (9) Diabetes Code(s): E11.9 - TYPE 2 DIABETES MELLITUS WITHOUT COMPLICATIONS Qualifiers: Diabetes mellitus type: type 2 (10) History of CVA with residual deficit Code(s): I69.30 - UNSPECIFIED SEQUELAE OF CEREBRAL INFARCTION (11) Lower extremity cellulitis Code(s): L03.119 - CELLULITIS OF UNSPECIFIED PART OF LIMB (12) Acute diastolic (congestive) heart failure Code(s): I50.31 - ACUTE DIASTOLIC (CONGESTIVE) HEART FAILURE IMP DYSPNEA DUE TO ACUTE DIASTOLIC HF LOWER EXT EDEMA ACUTE ON CHRONIC KIDNEY DISEASE H/O LEFT BREAST CA S/P LUMPECTOMY,RT 2015 ANEMIA 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
--- NOTE | 2019-04-17 13:07 | PN ---
Progress Note (short form) - Note Progress Note: s: no chest pain, palps, dizziness. dyspnea improving Current Medications Acetaminophen (Tylenol -) 650 mg PO Q6H PRN PRN Reason: PAIN Last Admin: 04/13/19 11:28 Dose: 650 mg Aspirin (Asa -) 81 mg PO DAILY [facility] Last Admin: 04/17/19 09:35 Dose: 81 mg Carvedilol (Coreg -) 25 mg PO BID [facility] Last Admin: 04/16/19 22:27 Dose: 25 mg Famotidine (Pepcid -) 20 mg PO DAILY [facility] Last Admin: 04/16/19 09:54 Dose: 20 mg Furosemide (Lasix Injection -) 80 mg IVPUSH BIDLASIX [facility] Last Admin: 04/17/19 06:11 Dose: 80 mg Heparin Sodium (Porcine) (Heparin -) 5,000 unit SQ TID [facility] Last Admin: 04/17/19 06:11 Dose: 5,000 unit Hydralazine HCl (Apresoline -) 20 mg PO TID [facility] Last Admin: 04/17/19 06:08 Dose: 20 mg Insulin Aspart (Novolog Vial Sliding Scale -) 1 vial SQ [facility]; Protocol Last Admin: 04/17/19 11:40 Dose: 2 units Insulin Detemir (Levemir Vial) 10 units SQ HS [facility] Last Admin: 04/16/19 22:29 Dose: 10 unit Letrozole (Femara -) 2.5 mg PO DAILY [facility] Last Admin: 04/17/19 09:35 Dose: 2.5 mg Levothyroxine Sodium (Synthroid -) 112 mcg PO DAILY@0700 [facility] Last Admin: 04/17/19 06:11 Dose: 112 mcg Losartan Potassium (Cozaar -) 50 mg PO DAILY [facility] Last Admin: 04/16/19 09:53 Dose: 50 mg Multivitamins/Minerals/Vitamin C (Tab-A-Vit -) 1 tab PO DAILY [facility] Last Admin: 04/17/19 09:35 Dose: 1 tab Pregabalin (Lyrica -) 25 mg PO BID [facility] Last Admin: 04/17/19 09:35 Dose: 25 mg Vital Signs Period Temp Pulse Resp BP Sys/Hernandez Pulse Ox Last 24 Hr 97.7 F-99 F 70-77 18-24 132-141/43-57 99 Constitutional: Yes: Calm Cardiovascular: Yes: Regular Rate and Rhythm Respiratory: Yes: Other (rales 1/3 up b/l) Gastrointestinal: Yes: Soft Edema: Yes Edema: LLE: 1+, RLE: 1+ Neurological: Yes: Alert, Oriented Assessment/Plan EKG: sinus,nl intervals, no ischemic changes CXR: + congestive changes echo 03/2019 nl LV function, mild MR, mild TR, PASP at least 49 mmHg acute diastolic heart failure exacerbation: - recent echo nl LV function, mild pulm HTN - CT chest bilat effusions and vascular congestion pattern, with + flank subcutaneous edema - received metolazone 2.5 mg x 1 yesterday, dyspnea improving - cont iv lasix 80 BID, still with vol overload. monitor daily cr, lytes lower ext cellulitis: - manage per ID, primary HTN - cont current meds MAURICE on CKD: - recent creat 2.2-2.4 - renal following -Daily BMP while on IV lasix cp: -resolved -ecg unremarkable -trop neg x2 -monitor for now
[2019-04-17] MEDS: CARVEDILOL 25 MG TABLET (FP) PO SCH ×2 (14:11→21:24)
[2019-04-17] MEDS: LOSARTAN POTASSIUM 50 MG TABLET (FP) PO SCH (14:11)
--- NOTE | 2019-04-17 15:20 | PN ---
Progress Note, Physician Chief Complaint: sob History of Present Illness: Feeling well, feels like she is breathing better. No cp, sob, palpitations. no complaints - Current Medication List Current Medications: Active Medications Acetaminophen (Tylenol -) 650 mg PO Q6H PRN PRN Reason: PAIN Last Admin: 04/13/19 11:28 Dose: 650 mg Aspirin (Asa -) 81 mg PO DAILY [facility] Last Admin: 04/17/19 09:35 Dose: 81 mg Carvedilol (Coreg -) 25 mg PO BID [facility] Last Admin: 04/17/19 14:11 Dose: Not Given Famotidine (Pepcid -) 20 mg PO DAILY [facility] Last Admin: 04/17/19 09:35 Dose: 20 mg Furosemide (Lasix Injection -) 80 mg IVPUSH BIDLASIX [facility] Last Admin: 04/17/19 14:33 Dose: 80 mg Heparin Sodium (Porcine) (Heparin -) 5,000 unit SQ TID [facility] Last Admin: 04/17/19 14:34 Dose: 5,000 unit Hydralazine HCl (Apresoline -) 20 mg PO TID [facility] Last Admin: 04/17/19 14:34 Dose: 20 mg Insulin Aspart (Novolog Vial Sliding Scale -) 1 vial SQ [facility]; Protocol Last Admin: 04/17/19 11:40 Dose: 2 units Insulin Detemir (Levemir Vial) 10 units SQ HS [facility] Last Admin: 04/16/19 22:29 Dose: 10 unit Letrozole (Femara -) 2.5 mg PO DAILY [facility] Last Admin: 04/17/19 09:35 Dose: 2.5 mg Levothyroxine Sodium (Synthroid -) 112 mcg PO DAILY@0700 [facility] Last Admin: 04/17/19 06:11 Dose: 112 mcg Losartan Potassium (Cozaar -) 50 mg PO DAILY [facility] Last Admin: 04/17/19 14:11 Dose: Not Given Multivitamins/Minerals/Vitamin C (Tab-A-Vit -) 1 tab PO DAILY [facility] Last Admin: 04/17/19 09:35 Dose: 1 tab Pregabalin (Lyrica -) 25 mg PO BID [facility] Last Admin: 04/17/19 09:35 Dose: 25 mg - Objective Vital Signs: Vital Signs Temperature 98.3 F 04/17/19 14:24 Pulse Rate 75 04/17/19 14:24 Respiratory Rate 24 H 04/17/19 14:24 Blood Pressure 141/64 04/17/19 14:24 O2 Sat by Pulse Oximetry (%) 99 04/16/19 21:00 Constitutional: Yes: Well Nourished, No Distress, Calm Cardiovascular: Yes: WNL, Regular Rate and Rhythm Respiratory: Yes: On Nasal O2, Rales (at bases). No: Accessory Muscle Use Gastrointestinal: Yes: WNL, Normal Bowel Sounds, Soft, Abdomen, Obese Extremities: Yes: WNL Edema: Yes Edema: LLE: 1+, RLE: 1+ Labs: CBC, BMP 04/15/19 07:58 04/17/19 06:00 INR, PTT INR 1.01 (0.83-1.09) 04/08/19 22:30 Problem List - Problems (1) Acute diastolic (congestive) heart failure Code(s): I50.31 - ACUTE DIASTOLIC (CONGESTIVE) HEART FAILURE (2) Acute kidney injury superimposed on CKD Code(s): N17.9 - ACUTE KIDNEY FAILURE, UNSPECIFIED; N18.9 - CHRONIC KIDNEY DISEASE, UNSPECIFIED (3) Anemia Code(s): D64.9 - ANEMIA, UNSPECIFIED Qualifiers: Anemia type: unspecified type Qualified Code(s): D64.9 - Anemia, unspecified (4) Bilateral leg edema Code(s): R60.0 - LOCALIZED EDEMA (5) Hypothyroid Code(s): E03.9 - HYPOTHYROIDISM, UNSPECIFIED Qualifiers: Hypothyroidism type: unspecified Qualified Code(s): E03.9 - Hypothyroidism , unspecified (6) Pulmonary vascular congestion Code(s): R09.89 - OTH SYMPTOMS AND SIGNS INVOLVING THE CIRC AND RESP SYSTEMS (7) Shortness of breath Code(s): R06.02 - SHORTNESS OF BREATH (8) Breast cancer Code(s): C50.919 - MALIGNANT NEOPLASM OF UNSP SITE OF UNSPECIFIED FEMALE BREAST (9) Diabetes Code(s): E11.9 - TYPE 2 DIABETES MELLITUS WITHOUT COMPLICATIONS Qualifiers: Diabetes mellitus type: type 2 (10) GERD (gastroesophageal reflux disease) Code(s): K21.9 - GASTRO-ESOPHAGEAL REFLUX DISEASE WITHOUT ESOPHAGITIS (11) HTN (hypertension) Code(s): I10 - ESSENTIAL (PRIMARY) HYPERTENSION (12) Lower extremity cellulitis Code(s): L03.119 - CELLULITIS OF UNSPECIFIED PART OF LIMB Assessment/Plan This is an 89 year old woman with a history of HTN, hyperlipidemia, type 2 DM, CVAs, hypothyroidism, GERD, breast cancer who presented to the ED with SOB. Acute on chronic diastolic heart failure Cellulitis MAURICE Stage 4 CKD HTN DM2 HLD Hypothyroidism GERD Hx CVA Hx Breast CA Macrocytic Anemia Plan: -better diuresis with addition of Zaroxolyn yesterday -c/w IV lasix -monitor i/os and daily weights -NA and fluid restriction -completed abx, legs look good, monitor -monitor renal function -replete lytes as needed -c/w current mngmt -cardio eval appreciated
--- NOTE | 2019-04-17 17:20 | PN ---
Progress Note, Physician History of Present Illness: Pt seen and examined at bedside. She is awake and alert. She feels that her breathing is the same as yesterday. - Current Medication List Current Medications: Active Medications Acetaminophen (Tylenol -) 650 mg PO Q6H PRN PRN Reason: PAIN Last Admin: 04/13/19 11:28 Dose: 650 mg Aspirin (Asa -) 81 mg PO DAILY [facility] Last Admin: 04/17/19 09:35 Dose: 81 mg Carvedilol (Coreg -) 25 mg PO BID [facility] Last Admin: 04/17/19 14:11 Dose: Not Given Famotidine (Pepcid -) 20 mg PO DAILY [facility] Last Admin: 04/17/19 09:35 Dose: 20 mg Furosemide (Lasix Injection -) 80 mg IVPUSH BIDLASIX [facility] Last Admin: 04/17/19 14:33 Dose: 80 mg Heparin Sodium (Porcine) (Heparin -) 5,000 unit SQ TID [facility] Last Admin: 04/17/19 14:34 Dose: 5,000 unit Hydralazine HCl (Apresoline -) 20 mg PO TID [facility] Last Admin: 04/17/19 14:34 Dose: 20 mg Insulin Aspart (Novolog Vial Sliding Scale -) 1 vial SQ [facility]; Protocol Last Admin: 04/17/19 11:40 Dose: 2 units Insulin Detemir (Levemir Vial) 10 units SQ HS [facility] Last Admin: 04/16/19 22:29 Dose: 10 unit Letrozole (Femara -) 2.5 mg PO DAILY [facility] Last Admin: 04/17/19 09:35 Dose: 2.5 mg Levothyroxine Sodium (Synthroid -) 112 mcg PO DAILY@0700 [facility] Last Admin: 04/17/19 06:11 Dose: 112 mcg Losartan Potassium (Cozaar -) 50 mg PO DAILY [facility] Last Admin: 04/17/19 14:11 Dose: Not Given Multivitamins/Minerals/Vitamin C (Tab-A-Vit -) 1 tab PO DAILY [facility] Last Admin: 04/17/19 09:35 Dose: 1 tab Pregabalin (Lyrica -) 25 mg PO BID [facility] Last Admin: 04/17/19 09:35 Dose: 25 mg - Objective Vital Signs: Vital Signs Temperature 98.3 F 04/17/19 14:24 Pulse Rate 75 04/17/19 14:24 Respiratory Rate 24 H 04/17/19 14:24 Blood Pressure 141/64 04/17/19 14:24 O2 Sat by Pulse Oximetry (%) 97 04/17/19 10:05 Constitutional: Yes: Calm Eyes: Yes: Conjunctiva Clear HENT: Yes: Atraumatic Neck: Yes: Supple Cardiovascular: Yes: S1, S2 Respiratory: Yes: On Nasal O2 Gastrointestinal: Yes: Soft Genitourinary: Yes: WNL Musculoskeletal: Yes: Muscle Weakness Edema: Yes Edema: LLE: 2+, RLE: 2+ Neurological: Yes: Oriented Psychiatric: Yes: Oriented Labs: CBC, BMP 04/15/19 07:58 04/17/19 06:00 INR, PTT INR 1.01 (0.83-1.09) 04/08/19 22:30 Assessment/Plan Current Medications Generic Name Dose Route Start Last Admin Trade Name Freq PRN Reason Stop Dose Admin Acetaminophen 650 mg 04/11/19 13:59 04/13/19 11:28 Tylenol - PO 650 mg Q6H PRN Administration PAIN Aspirin 81 mg 04/12/19 10:00 04/17/19 09:35 Asa - PO 81 mg DAILY [facility] Administration Carvedilol 25 mg 04/11/19 22:00 04/17/19 14:11 Coreg - PO Not Given BID [facility] Famotidine 20 mg 04/12/19 10:00 04/17/19 09:35 Pepcid - PO 20 mg DAILY [facility] Administration Furosemide 80 mg 04/12/19 16:00 04/17/19 14:33 Lasix Injection - IVPUSH 80 mg BIDLASIX [facility] Administration Heparin Sodium (Porcine) 5,000 unit 04/11/19 14:00 04/17/19 14:34 Heparin - SQ 5,000 unit TID [facility] Administration Hydralazine HCl 20 mg 04/11/19 14:00 04/17/19 14:34 Apresoline - PO 20 mg TID [facility] Administration Insulin Aspart 1 vial 04/11/19 16:30 04/17/19 11:40 Novolog Vial Sliding Scale - SQ 2 units ACHS [facility] Administration Protocol Insulin Detemir 10 units 04/14/19 14:18 04/16/19 22:29 Levemir Vial SQ 10 unit HS [facility] Administration Letrozole 2.5 mg 04/12/19 10:00 04/17/19 09:35 Femara - PO 2.5 mg DAILY [facility] Administration Levothyroxine Sodium 112 mcg 04/12/19 07:00 04/17/19 06:11 Synthroid - PO 112 mcg DAILY@0700 [facility] Administration Losartan Potassium 50 mg 04/13/19 15:15 04/17/19 14:11 Cozaar - PO Not Given DAILY [facility] Multivitamins/Minerals/Vitamin C 1 tab 04/12/19 10:00 04/17/19 09:35 Tab-A-Vit - PO 1 tab DAILY [facility] Administration Pregabalin 25 mg 04/11/19 22:00 04/17/19 09:35 Lyrica - PO 25 mg BID [facility] Administration Impression 1. proteinuria 2. hypothyroid 3. HTN 4. DM 5. fluid overload 6. breast cancer 7. MAURICE 8. CKD Plan - will give another dose of metolazine - cont lasix - daily weights - am cxr - she remain hypervolemic - refused her, monitor urine output - [address] Sequeira
[2019-04-17] MEDS ORDERED: METOLAZONE 5 MG TABLET PO ONE (17:21)
[2019-04-17] MEDS: ACETAMINOPHEN 325 MG TABLET (FP) PO PRN (21:25)
[2019-04-17] MEDS: INSULIN (LEVEMIR) 100 UNITS/ML UNITS SQ SCH (21:26)
[2019-04-18] MEDS: FUROSEMIDE 40 MG/4 ML INJECTABLE VIAL IVPUSH SCH ×2 (06:06→14:02)
[2019-04-18] MEDS: hydrALAZINE HCL 10 MG TABLET PO SCH ×3 (06:06→21:50)
[2019-04-18] MEDS: HEPARIN NA (PORCINE) 5,000 UNITS/ML 1ML VIAL SQ SCH ×2 (06:06→21:53)
[2019-04-18] MEDS: INSULIN SLIDING SCALE (NOVOLOG) 1 VIAL SQ SCH ×4 (06:07→21:56)
[2019-04-18] MEDS: LEVOTHYROXINE NA 112 MCG TABLET (FP) PO SCH (06:09)
[2019-04-18 08:05] LABS: ALBUMIN 2.7 g/dl (3.4-5.0); BILIRUBIN,TOTAL 0.3 mg/dL (0.2-1); BLOOD UREA NITROGEN 77.7 mg/dL (7-18); CALCIUM 8.2 mg/dL (8.5-10.1); CREATININE 2.7 mg/dL (0.55-1.3); POTASSIUM 3.5 mmol/L (3.5-5.1); TOT PROT 6.2 g/dl (6.4-8.2)
[2019-04-18 08:08] LABS: BASO % 2.8 % (0-2.0); EOS % 6.8 % (0-4.5); HEMATOCRIT 21.5 % (32.4-45.2); HEMOGLOBIN 7.1 GM/dL (10.7-15.3); LYMPH % 11.2 % (8-40); MCH 32.9 pg (25.7-33.7); MCHC 33.3 g/dl (32.0-36.0); MEAN PLT VOLUME 8.3 fl (7.5-11.1); NEUT % 67.2 % (42.8-82.8); PLATELET COUNT 297 K/MM3 (134-434); RBC 2.17 M/mm3 (3.60-5.2); RDW 16.9 % (11.6-15.6); WHITE BLOOD COUNT 14.2 K/mm3 (4.0-10.0)
[2019-04-18] MEDS: ACETAMINOPHEN 325 MG TABLET (FP) PO PRN (08:32)
[2019-04-18] MEDS ORDERED: PT OWN MED DRAWER 7, Y5N ONE (09:37)
[2019-04-18] MEDS: CARVEDILOL 25 MG TABLET (FP) PO SCH ×2 (09:53→21:53)
[2019-04-18] MEDS: LOSARTAN POTASSIUM 50 MG TABLET (FP) PO SCH (09:53)
[2019-04-18] MEDS: PREGABALIN 25 MG CAPSULE PO SCH (09:53)
[2019-04-18] MEDS: ASPIRIN 81 MG CHEWABLE TABLETS PO SCH (09:53)
[2019-04-18] MEDS: MULTIVITAMINS (DAILY MVI) TABLET (FP) PO SCH (09:53)
[2019-04-18] MEDS: FAMOTIDINE 20 MG TABLET PO SCH (09:53)
[2019-04-18] MEDS: LETROZOLE 2.5 MG TABLET (FP) PO SCH (09:54)
--- NOTE | 2019-04-18 12:25 | PN ---
Progress Note (short form) - Note Progress Note: s: no chest pain, palps, dizziness. dyspnea improving Current Medications Acetaminophen (Tylenol -) 650 mg PO Q6H PRN PRN Reason: PAIN Last Admin: 04/18/19 08:32 Dose: 650 mg Aspirin (Asa -) 81 mg PO DAILY [facility] Last Admin: 04/18/19 09:53 Dose: 81 mg Carvedilol (Coreg -) 25 mg PO BID [facility] Last Admin: 04/18/19 09:53 Dose: 25 mg Famotidine (Pepcid -) 20 mg PO DAILY [facility] Last Admin: 04/18/19 09:53 Dose: 20 mg Furosemide (Lasix Injection -) 80 mg IVPUSH BIDLASIX [facility] Last Admin: 04/18/19 06:06 Dose: 80 mg Heparin Sodium (Porcine) (Heparin -) 5,000 unit SQ TID [facility] Last Admin: 04/18/19 06:06 Dose: 5,000 unit Hydralazine HCl (Apresoline -) 20 mg PO TID [facility] Last Admin: 04/18/19 06:06 Dose: 20 mg Insulin Aspart (Novolog Vial Sliding Scale -) 1 vial SQ [facility]; Protocol Last Admin: 04/18/19 12:14 Dose: 4 units Insulin Detemir (Levemir Vial) 10 units SQ HS [facility] Last Admin: 04/17/19 21:26 Dose: 10 unit Letrozole (Femara -) 2.5 mg PO DAILY [facility] Last Admin: 04/18/19 09:54 Dose: 2.5 mg Levothyroxine Sodium (Synthroid -) 112 mcg PO DAILY@0700 [facility] Last Admin: 04/18/19 06:09 Dose: 112 mcg Losartan Potassium (Cozaar -) 50 mg PO DAILY [facility] Last Admin: 04/18/19 09:53 Dose: 50 mg Multivitamins/Minerals/Vitamin C (Tab-A-Vit -) 1 tab PO DAILY [facility] Last Admin: 04/18/19 09:53 Dose: 1 tab Pregabalin (Lyrica -) 50 mg PO BID [facility] Vital Signs Period Temp Pulse Resp BP Sys/Hernandez Pulse Ox Last 24 Hr 97.8 F-98.5 F 71-78 18-24 123-156/43-71 97 Constitutional: Yes: Calm Cardiovascular: Yes: Regular Rate and Rhythm Respiratory: Yes: Other (rales 1/3 up b/l) Gastrointestinal: Yes: Soft Edema: Yes Edema: LLE: 1+, RLE: 1+ Neurological: Yes: Alert, Oriented Assessment/Plan EKG: sinus,nl intervals, no ischemic changes CXR: + congestive changes echo 03/2019 nl LV function, mild MR, mild TR, PASP at least 49 mmHg acute diastolic heart failure exacerbation: - recent echo nl LV function, mild pulm HTN - CT chest bilat effusions and vascular congestion pattern, with + flank subcutaneous edema - received metolazone 2.5 mg last two days, dyspnea improving - cont iv lasix 80 BID, still with vol overload. monitor daily cr, lytes lower ext cellulitis: - manage per ID, primary HTN - cont current meds MAURICE on CKD: - recent creat 2.2-2.4 - renal following -Daily BMP while on IV lasix cp: -resolved -ecg unremarkable -trop neg x2 -monitor for now
[2019-04-18 12:56] LABS: ANISOCYTOSIS 0; MACROCYTOSIS 0; PLATELET ESTIMATE NORMAL
[2019-04-18] MEDS ORDERED: PREGABALIN 25 MG CAPSULE PO ONE (13:01)
--- NOTE | 2019-04-18 13:26 | PN ---
Progress Note, Physician History of Present Illness: stable still with cough - Current Medication List Current Medications: Active Medications Acetaminophen (Tylenol -) 650 mg PO Q6H PRN PRN Reason: PAIN Last Admin: 04/18/19 08:32 Dose: 650 mg Aspirin (Asa -) 81 mg PO DAILY [facility] Last Admin: 04/18/19 09:53 Dose: 81 mg Carvedilol (Coreg -) 25 mg PO BID [facility] Last Admin: 04/18/19 09:53 Dose: 25 mg Famotidine (Pepcid -) 20 mg PO DAILY [facility] Last Admin: 04/18/19 09:53 Dose: 20 mg Furosemide (Lasix Injection -) 80 mg IVPUSH BIDLASIX [facility] Last Admin: 04/18/19 06:06 Dose: 80 mg Heparin Sodium (Porcine) (Heparin -) 5,000 unit SQ TID [facility] Last Admin: 04/18/19 06:06 Dose: 5,000 unit Hydralazine HCl (Apresoline -) 20 mg PO TID [facility] Last Admin: 04/18/19 06:06 Dose: 20 mg Insulin Aspart (Novolog Vial Sliding Scale -) 1 vial SQ [facility]; Protocol Last Admin: 04/18/19 12:14 Dose: 4 units Insulin Detemir (Levemir Vial) 10 units SQ HS [facility] Last Admin: 04/17/19 21:26 Dose: 10 unit Letrozole (Femara -) 2.5 mg PO DAILY [facility] Last Admin: 04/18/19 09:54 Dose: 2.5 mg Levothyroxine Sodium (Synthroid -) 112 mcg PO DAILY@0700 [facility] Last Admin: 04/18/19 06:09 Dose: 112 mcg Losartan Potassium (Cozaar -) 50 mg PO DAILY [facility] Last Admin: 04/18/19 09:53 Dose: 50 mg Multivitamins/Minerals/Vitamin C (Tab-A-Vit -) 1 tab PO DAILY [facility] Last Admin: 04/18/19 09:53 Dose: 1 tab Pregabalin (Lyrica -) 50 mg PO BID [facility] Pregabalin (Lyrica -) 25 mg PO ONCE ONE Stop: 04/18/19 13:02 - Objective Vital Signs: Vital Signs Temperature 97.8 F 04/18/19 09:48 Pulse Rate 78 04/18/19 09:48 Respiratory Rate 24 H 04/18/19 09:48 Blood Pressure 147/64 04/18/19 09:48 O2 Sat by Pulse Oximetry (%) 97 04/17/19 21:00 Constitutional: Yes: No Distress, Calm Cardiovascular: Yes: S1, S2 Respiratory: Yes: Regular, Rhonchi Gastrointestinal: Yes: Normal Bowel Sounds, Soft Musculoskeletal: Yes: WNL Edema: LLE: 1+, RLE: 1+ Neurological: Yes: Alert, Oriented Psychiatric: Yes: Alert, Oriented Labs: CBC, BMP 04/18/19 07:12 04/18/19 07:12 INR, PTT INR 1.01 (0.83-1.09) 04/08/19 22:30 Assessment/Plan Problem List - Problems (1) Acute diastolic (congestive) heart failure Code(s): I50.31 - ACUTE DIASTOLIC (CONGESTIVE) HEART FAILURE (2) Acute kidney injury superimposed on CKD Code(s): N17.9 - ACUTE KIDNEY FAILURE, UNSPECIFIED; N18.9 - CHRONIC KIDNEY DISEASE, UNSPECIFIED (3) Anemia Code(s): D64.9 - ANEMIA, UNSPECIFIED Qualifiers: Anemia type: unspecified type Qualified Code(s): D64.9 - Anemia, unspecified (4) Bilateral leg edema Code(s): R60.0 - LOCALIZED EDEMA (5) Hypothyroid Code(s): E03.9 - HYPOTHYROIDISM, UNSPECIFIED Qualifiers: Hypothyroidism type: unspecified Qualified Code(s): E03.9 - Hypothyroidism , unspecified (6) Shortness of breath Code(s): R06.02 - SHORTNESS OF BREATH (7) Breast cancer, left Code(s): C50.912 - MALIGNANT NEOPLASM OF UNSPECIFIED SITE OF LEFT FEMALE BREAST (8) Diabetes Code(s): E11.9 - TYPE 2 DIABETES MELLITUS WITHOUT COMPLICATIONS Qualifiers: Diabetes mellitus type: type 2 (9) GERD (gastroesophageal reflux disease) Code(s): K21.9 - GASTRO-ESOPHAGEAL REFLUX DISEASE WITHOUT ESOPHAGITIS (10) HTN (hypertension) Code(s): I10 - ESSENTIAL (PRIMARY) HYPERTENSION (11) History of CVA with residual deficit Code(s): I69.30 - UNSPECIFIED SEQUELAE OF CEREBRAL INFARCTION (12) Lower extremity cellulitis Code(s): L03.119 - CELLULITIS OF UNSPECIFIED PART OF LIMB Assessment/Plan 89 y.o. female with PMH of DM, CKD, HTN, HLD, anemia, Lt breast CA s/p lumpectomy/RT, hypothyroidism, CVA, GBS, remote history of meningitis presents with complaints of worsening SOB and b/l LE edema that began several days [employer] after recent hospital discharge. Treated for b/l LE cellulitis with some improvement. Noted to have leukocytosis, LE erythema, worsening renal function and anemia b/l LE cellulitis Leukocytosis SOB b/l LE edema Acute diastolic HF Anemia Acute on chronic RF DM HTN Hx of Lt Breast CA Hypothyroidism Hx of CVAs plan continue current mgmt physio monitor wbc rest as per the team
--- NOTE | 2019-04-18 14:40 | PN ---
Progress Note, Physician Chief Complaint: sob History of Present Illness: seen and examined at bedside. Patient had a rough night, didn't sleep and had neuropathic pain. Denies SOB, palpitations, CP. afebrile - Current Medication List Current Medications: Active Medications Acetaminophen (Tylenol -) 650 mg PO Q6H PRN PRN Reason: PAIN Last Admin: 04/18/19 08:32 Dose: 650 mg Aspirin (Asa -) 81 mg PO DAILY [facility] Last Admin: 04/18/19 09:53 Dose: 81 mg Carvedilol (Coreg -) 25 mg PO BID [facility] Last Admin: 04/18/19 09:53 Dose: 25 mg Famotidine (Pepcid -) 20 mg PO DAILY [facility] Last Admin: 04/18/19 09:53 Dose: 20 mg Furosemide (Lasix Injection -) 80 mg IVPUSH BIDLASIX [facility] Last Admin: 04/18/19 14:02 Dose: 80 mg Hydralazine HCl (Apresoline -) 20 mg PO TID [facility] Last Admin: 04/18/19 14:02 Dose: 20 mg Insulin Aspart (Novolog Vial Sliding Scale -) 1 vial SQ [facility]; Protocol Last Admin: 04/18/19 12:14 Dose: 4 units Insulin Detemir (Levemir Vial) 10 units SQ HS [facility] Last Admin: 04/17/19 21:26 Dose: 10 unit Letrozole (Femara -) 2.5 mg PO DAILY [facility] Last Admin: 04/18/19 09:54 Dose: 2.5 mg Levothyroxine Sodium (Synthroid -) 112 mcg PO DAILY@0700 [facility] Last Admin: 04/18/19 06:09 Dose: 112 mcg Losartan Potassium (Cozaar -) 50 mg PO DAILY [facility] Last Admin: 04/18/19 09:53 Dose: 50 mg Multivitamins/Minerals/Vitamin C (Tab-A-Vit -) 1 tab PO DAILY [facility] Last Admin: 04/18/19 09:53 Dose: 1 tab Pregabalin (Lyrica -) 50 mg PO BID [facility] - Objective Vital Signs: Vital Signs Temperature 97.8 F 04/18/19 14:01 Pulse Rate 73 04/18/19 14:01 Respiratory Rate 24 H 04/18/19 09:48 Blood Pressure 119/50 L 04/18/19 14:01 O2 Sat by Pulse Oximetry (%) 97 04/17/19 21:00 Constitutional: Yes: Well Nourished, No Distress, Calm Cardiovascular: Yes: WNL, Regular Rate and Rhythm Respiratory: Yes: WNL, Regular, CTA Bilaterally Gastrointestinal: Yes: WNL, Normal Bowel Sounds, Soft, Abdomen, Obese Musculoskeletal: Yes: WNL Extremities: Yes: WNL Edema: Yes Edema: LLE: 1+, RLE: 1+ Labs: CBC, BMP 04/18/19 07:12 04/18/19 07:12 INR, PTT INR 1.01 (0.83-1.09) 04/08/19 22:30 Problem List - Problems (1) Acute diastolic (congestive) heart failure Code(s): I50.31 - ACUTE DIASTOLIC (CONGESTIVE) HEART FAILURE (2) Acute kidney injury superimposed on CKD Code(s): N17.9 - ACUTE KIDNEY FAILURE, UNSPECIFIED; N18.9 - CHRONIC KIDNEY DISEASE, UNSPECIFIED (3) Anemia Code(s): D64.9 - ANEMIA, UNSPECIFIED Qualifiers: Anemia type: unspecified type Qualified Code(s): D64.9 - Anemia, unspecified (4) Bilateral leg edema Code(s): R60.0 - LOCALIZED EDEMA (5) Hypothyroid Code(s): E03.9 - HYPOTHYROIDISM, UNSPECIFIED Qualifiers: Hypothyroidism type: unspecified Qualified Code(s): E03.9 - Hypothyroidism , unspecified (6) Pulmonary vascular congestion Code(s): R09.89 - OTH SYMPTOMS AND SIGNS INVOLVING THE CIRC AND RESP SYSTEMS (7) Shortness of breath Code(s): R06.02 - SHORTNESS OF BREATH (8) Breast cancer Code(s): C50.919 - MALIGNANT NEOPLASM OF UNSP SITE OF UNSPECIFIED FEMALE BREAST (9) Diabetes Code(s): E11.9 - TYPE 2 DIABETES MELLITUS WITHOUT COMPLICATIONS Qualifiers: Diabetes mellitus type: type 2 (10) GERD (gastroesophageal reflux disease) Code(s): K21.9 - GASTRO-ESOPHAGEAL REFLUX DISEASE WITHOUT ESOPHAGITIS (11) HTN (hypertension) Code(s): I10 - ESSENTIAL (PRIMARY) HYPERTENSION (12) Lower extremity cellulitis Code(s): L03.119 - CELLULITIS OF UNSPECIFIED PART OF LIMB Assessment/Plan This is an 89 year old woman with a history of HTN, hyperlipidemia, type 2 DM, CVAs, hypothyroidism, GERD, breast cancer who presented to the ED with SOB. Acute on chronic diastolic heart failure Cellulitis MAURICE Stage 4 CKD HTN DM2 HLD Hypothyroidism GERD Hx CVA Hx Breast CA Macrocytic Anemia Plan: -c/w IV lasix, given another dose of metolazone with good effect -monitor i/os and daily weights -NA and fluid restriction -completed abx, monitor -patient with chronic leukocytosis dating over 5 years ago -monitor renal function, unchanged -replete lytes as needed -increase lyrica to 50 mg BID -c/w current mngmt -cardio eval appreciated
[2019-04-18] MEDS ORDERED: POTASSIUM CHLORIDE TABS 20 MEQ TABLET.ER (FP) PO ONE (19:49)
[2019-04-18] MEDS ORDERED: METOLAZONE 5 MG TABLET PO ONE (19:49)
--- NOTE | 2019-04-18 19:51 | PN ---
Progress Note, Physician History of Present Illness: Pt seen and examine at bedside, She is awake and alert. She feels that her breathing is improving. - Current Medication List Current Medications: Active Medications Acetaminophen (Tylenol -) 650 mg PO Q6H PRN PRN Reason: PAIN Last Admin: 04/18/19 08:32 Dose: 650 mg Aspirin (Asa -) 81 mg PO DAILY [facility] Last Admin: 04/18/19 09:53 Dose: 81 mg Carvedilol (Coreg -) 25 mg PO BID [facility] Last Admin: 04/18/19 09:53 Dose: 25 mg Famotidine (Pepcid -) 20 mg PO DAILY [facility] Last Admin: 04/18/19 09:53 Dose: 20 mg Furosemide (Lasix Injection -) 80 mg IVPUSH BIDLASIX [facility] Last Admin: 04/18/19 14:02 Dose: 80 mg Heparin Sodium (Porcine) (Heparin -) 5,000 unit SQ BID [facility] Hydralazine HCl (Apresoline -) 20 mg PO TID [facility] Last Admin: 04/18/19 14:02 Dose: 20 mg Insulin Aspart (Novolog Vial Sliding Scale -) 1 vial SQ [facility]; Protocol Last Admin: 04/18/19 17:25 Dose: 4 units Insulin Detemir (Levemir Vial) 10 units SQ HS [facility] Last Admin: 04/17/19 21:26 Dose: 10 unit Letrozole (Femara -) 2.5 mg PO DAILY [facility] Last Admin: 04/18/19 09:54 Dose: 2.5 mg Levothyroxine Sodium (Synthroid -) 112 mcg PO DAILY@0700 [facility] Last Admin: 04/18/19 06:09 Dose: 112 mcg Losartan Potassium (Cozaar -) 50 mg PO DAILY [facility] Last Admin: 04/18/19 09:53 Dose: 50 mg Multivitamins/Minerals/Vitamin C (Tab-A-Vit -) 1 tab PO DAILY [facility] Last Admin: 04/18/19 09:53 Dose: 1 tab Pregabalin (Lyrica -) 50 mg PO BID [facility] - Objective Vital Signs: Vital Signs Temperature 97.6 F 04/18/19 18:00 Pulse Rate 75 04/18/19 18:00 Respiratory Rate 20 04/18/19 18:00 Blood Pressure 127/50 L 04/18/19 18:00 O2 Sat by Pulse Oximetry (%) 96 04/18/19 10:35 Constitutional: Yes: Calm Eyes: Yes: Conjunctiva Clear HENT: Yes: Atraumatic Neck: Yes: Supple Cardiovascular: Yes: S1, S2 Respiratory: Yes: On Nasal O2 Gastrointestinal: Yes: Soft Musculoskeletal: Yes: WNL Edema: Yes Edema: LLE: 1+, RLE: 1+ Neurological: Yes: Oriented Psychiatric: Yes: Oriented Labs: CBC, BMP 04/18/19 07:12 04/18/19 07:12 INR, PTT INR 1.01 (0.83-1.09) 04/08/19 22:30 Assessment/Plan Current Medications Generic Name Dose Route Start Last Admin Trade Name Freq PRN Reason Stop Dose Admin Acetaminophen 650 mg 04/11/19 13:59 04/18/19 08:32 Tylenol - PO 650 mg Q6H PRN Administration PAIN Aspirin 81 mg 04/12/19 10:00 04/18/19 09:53 Asa - PO 81 mg DAILY [facility] Administration Carvedilol 25 mg 04/11/19 22:00 04/18/19 09:53 Coreg - PO 25 mg BID [facility] Administration Famotidine 20 mg 04/12/19 10:00 04/18/19 09:53 Pepcid - PO 20 mg DAILY [facility] Administration Furosemide 80 mg 04/12/19 16:00 04/18/19 14:02 Lasix Injection - IVPUSH 80 mg BIDLASIX [facility] Administration Heparin Sodium (Porcine) 5,000 unit 04/18/19 22:00 Heparin - SQ BID [facility] Hydralazine HCl 20 mg 04/11/19 14:00 04/18/19 14:02 Apresoline - PO 20 mg TID [facility] Administration Insulin Aspart 1 vial 04/11/19 16:30 04/18/19 17:25 Novolog Vial Sliding Scale - SQ 4 units ACHS [facility] Administration Protocol Insulin Detemir 10 units 04/14/19 14:18 04/17/19 21:26 Levemir Vial SQ 10 unit HS [facility] Administration Letrozole 2.5 mg 04/12/19 10:00 04/18/19 09:54 Femara - PO 2.5 mg DAILY [facility] Administration Levothyroxine Sodium 112 mcg 04/12/19 07:00 04/18/19 06:09 Synthroid - PO 112 mcg DAILY@0700 [facility] Administration Losartan Potassium 50 mg 04/13/19 15:15 04/18/19 09:53 Cozaar - PO 50 mg DAILY [facility] Administration Metolazone 5 mg 04/18/19 19:49 Zaroxolyn - PO 04/18/19 19:50 ONCE ONE Multivitamins/Minerals/Vitamin C 1 tab 04/12/19 10:00 04/18/19 09:53 Tab-A-Vit - PO 1 tab DAILY [facility] Administration Potassium Chloride 40 meq 04/18/19 19:49 K-Dur - PO 04/18/19 19:50 ONCE ONE Pregabalin 50 mg 04/18/19 22:00 Lyrica - PO BID [facility] Impression 1. proteinuria 2. hypothyroid 3. HTN 4. DM 5. fluid overload 6. breast cancer 7. MAURICE 8. CKD Plan - cont diuretics - repeat labs in an - replace potassium - urine output improved - [address] Sequeira
[2019-04-18] MEDS: PREGABALIN 50 MG CAPSULE PO SCH (21:48)
[2019-04-18] MEDS: INSULIN (LEVEMIR) 100 UNITS/ML UNITS SQ SCH (21:55)
[2019-04-19] MEDS: INSULIN SLIDING SCALE (NOVOLOG) 1 VIAL SQ SCH ×4 (06:26→22:54)
[2019-04-19] MEDS: FUROSEMIDE 40 MG/4 ML INJECTABLE VIAL IVPUSH SCH ×2 (06:27→15:11)
[2019-04-19] MEDS: hydrALAZINE HCL 10 MG TABLET PO SCH ×3 (06:27→22:51)
[2019-04-19] MEDS: LEVOTHYROXINE NA 112 MCG TABLET (FP) PO SCH (06:28)
[2019-04-19 08:42] LABS: ALBUMIN 2.7 g/dl (3.4-5.0); BILIRUBIN,TOTAL 0.3 mg/dL (0.2-1); BLOOD UREA NITROGEN 93.3 mg/dL (7-18); CALCIUM 8.2 mg/dL (8.5-10.1); CREATININE 2.9 mg/dL (0.55-1.3); MAGNESIUM 2.2 mg/dL (1.8-2.4); TOT PROT 6.3 g/dl (6.4-8.2)
[2019-04-19 09:33] LABS: BASO % 1.3 % (0-2.0); EOS % 6.4 % (0-4.5); HEMATOCRIT 20.6 % (32.4-45.2); LYMPH % 10.4 % (8-40); MCH 33.6 pg (25.7-33.7); MCHC 33.6 g/dl (32.0-36.0); MEAN PLT VOLUME 8.6 fl (7.5-11.1); MONO % 12.9 % (3.8-10.2); PLATELET COUNT 296 K/MM3 (134-434); RBC 2.06 M/mm3 (3.60-5.2); RDW 17.4 % (11.6-15.6); WHITE BLOOD COUNT 16.8 K/mm3 (4.0-10.0)
[2019-04-19 09:54] LABS: HEMOGLOBIN 6.9 GM/dL (10.7-15.3)
[2019-04-19] MEDS ORDERED: PT OWN MED DRAWER 7, Y5N ONE (10:51)
[2019-04-19] MEDS: FAMOTIDINE 20 MG TABLET PO SCH (11:01)
[2019-04-19] MEDS: MULTIVITAMINS (DAILY MVI) TABLET (FP) PO SCH (11:01)
[2019-04-19] MEDS: PREGABALIN 50 MG CAPSULE PO SCH ×2 (11:01→22:52)
[2019-04-19] MEDS: CARVEDILOL 25 MG TABLET (FP) PO SCH ×3 (11:02→22:52)
[2019-04-19] MEDS: LOSARTAN POTASSIUM 50 MG TABLET (FP) PO SCH ×2 (11:02→13:06)
[2019-04-19] MEDS: ASPIRIN 81 MG CHEWABLE TABLETS PO SCH (11:02)
[2019-04-19] MEDS: LETROZOLE 2.5 MG TABLET (FP) PO SCH (11:02)
[2019-04-19] MEDS: HEPARIN NA (PORCINE) 5,000 UNITS/ML 1ML VIAL SQ SCH (11:02)
--- NOTE | 2019-04-19 11:23 | PN ---
Physical Exam: SUBJECTIVE: Patient seen and examined. She feels tired. OBJECTIVE: Vital Signs Period Temp Pulse Resp BP Sys/Hernandez Pulse Ox Last 24 Hr 97.6 F-97.9 F 73-76 18-20 107-128/43-72 100 GENERAL: The patient is awake, alert, and fully oriented, in no acute distress. LUNGS: Breath sounds equal and diminshed, clear to auscultation bilaterally, no wheezes, no crackles, no accessory muscle use. HEART: Regular rate and rhythm, S1, S2 without murmur, rub or gallop. ABDOMEN: Soft, nontender, nondistended, normoactive bowel sounds, no guarding, no rebound, no hepatosplenomegaly, no masses. EXTREMITIES: 2+ pulses, warm, well-perfused, trace edema, mild erythema of both lower legs. Laboratory Results - last 24 hr 04/18/19 04/18/19 04/18/19 07:12 12:12 17:24 WBC RBC Hgb Hct MCV MCH MCHC RDW Plt Count MPV Absolute Neuts (auto) Neutrophils % Neutrophils % (Manual) 60.4 Band Neutrophils % 0.0 Lymphocytes % Lymphocytes % (Manual) 7.6 L D Monocytes % Monocytes % (Manual) 2 L Eosinophils % Eosinophils % (Manual) 4.7 H Basophils % Basophils % (Manual) 1.9 Myelocytes % (Man) 16 H D Promyelocytes % (Man) 2 D Blast Cells % (Manual) 1 H D Nucleated RBC % 0 Metamyelocytes 5 H D Hypochromia 2+ Platelet Estimate Normal Platelet Comment Present Polychromasia 1+ Poikilocytosis 0 Anisocytosis 0 Microcytosis 0 Macrocytosis 0 Spherocytes 1+ Stomatocytes 2+ Sodium Potassium Chloride Carbon Dioxide Anion Gap BUN Creatinine Est GFR (CKD-EPI)AfAm Est GFR (CKD-EPI)NonAf POC Glucometer 210 207 Random Glucose Calcium Magnesium Total Bilirubin AST ALT Alkaline Phosphatase Total Protein Albumin 04/18/19 04/19/19 04/19/19 21:40 06:21 06:49 WBC 16.8 H RBC 2.06 L Hgb 6.9 L* Hct 20.6 L MCV 100.0 H MCH 33.6 MCHC 33.6 RDW 17.4 H Plt Count 296 MPV 8.6 Absolute Neuts (auto) 11.6 H Neutrophils % 69.0 Neutrophils % (Manual) Band Neutrophils % Lymphocytes % 10.4 Lymphocytes % (Manual) Monocytes % 12.9 H Monocytes % (Manual) Eosinophils % 6.4 H Eosinophils % (Manual) Basophils % 1.3 Basophils % (Manual) Myelocytes % (Man) Promyelocytes % (Man) Blast Cells % (Manual) Nucleated RBC % 0 Metamyelocytes Hypochromia Platelet Estimate Platelet Comment Polychromasia Poikilocytosis Anisocytosis Microcytosis Macrocytosis Spherocytes Stomatocytes Sodium Potassium Chloride Carbon Dioxide Anion Gap BUN Creatinine Est GFR (CKD-EPI)AfAm Est GFR (CKD-EPI)NonAf POC Glucometer 250 183 Random Glucose Calcium Magnesium Total Bilirubin AST ALT Alkaline Phosphatase Total Protein Albumin 04/19/19 06:49 WBC RBC Hgb Hct MCV MCH MCHC RDW Plt Count MPV Absolute Neuts (auto) Neutrophils % Neutrophils % (Manual) Band Neutrophils % Lymphocytes % Lymphocytes % (Manual) Monocytes % Monocytes % (Manual) Eosinophils % Eosinophils % (Manual) Basophils % Basophils % (Manual) Myelocytes % (Man) Promyelocytes % (Man) Blast Cells % (Manual) Nucleated RBC % Metamyelocytes Hypochromia Platelet Estimate Platelet Comment Polychromasia Poikilocytosis Anisocytosis Microcytosis Macrocytosis Spherocytes Stomatocytes Sodium 131 L Potassium 4.0 Chloride 95 L Carbon Dioxide 27 Anion Gap 9 BUN 93.3 H Creatinine 2.9 H Est GFR (CKD-EPI)AfAm 15.97 Est GFR (CKD-EPI)NonAf 13.78 POC Glucometer Random Glucose 191 H Calcium 8.2 L Magnesium 2.2 Total Bilirubin 0.3 AST 16 ALT 15 Alkaline Phosphatase 118 H Total Protein 6.3 L Albumin 2.7 L Active Medications Generic Name Dose Route Start Last Admin Trade Name Freq PRN Reason Stop Dose Admin Acetaminophen 650 mg 04/11/19 13:59 04/18/19 08:32 Tylenol - PO 650 mg Q6H PRN Administration PAIN Carvedilol 25 mg 04/11/19 22:00 04/19/19 11:02 Coreg - PO Not Given BID [facility] Famotidine 20 mg 04/12/19 10:00 04/19/19 11:01 Pepcid - PO 20 mg DAILY [facility] Administration Furosemide 80 mg 04/12/19 16:00 04/19/19 06:27 Lasix Injection - IVPUSH 80 mg BIDLASIX [facility] Administration Hydralazine HCl 20 mg 04/11/19 14:00 04/19/19 06:27 Apresoline - PO 20 mg TID [facility] Administration Insulin Aspart 1 vial 04/11/19 16:30 04/19/19 06:26 Novolog Vial Sliding Scale - SQ 2 units ACHS [facility] Administration Protocol Insulin Detemir 10 units 04/14/19 14:18 04/18/19 21:55 Levemir Vial SQ 10 unit HS [facility] Administration Letrozole 2.5 mg 04/12/19 10:00 04/19/19 11:02 Femara - PO 2.5 mg DAILY [facility] Administration Levothyroxine Sodium 112 mcg 04/12/19 07:00 04/19/19 06:28 Synthroid - PO 112 mcg DAILY@0700 [facility] Administration Losartan Potassium 50 mg 04/13/19 15:15 04/19/19 11:02 Cozaar - PO Not Given DAILY [facility] Multivitamins/Minerals/Vitamin C 1 tab 04/12/19 10:00 04/19/19 11:01 Tab-A-Vit - PO 1 tab DAILY [facility] Administration Pregabalin 50 mg 04/18/19 22:00 04/19/19 11:01 Lyrica - PO 50 mg BID [facility] Administration ASSESSMENT/PLAN: This is an 89 year old woman with a history of HTN, hyperlipidemia, type 2 DM, CVAs, hypothyroidism, GERD, breast cancer who presented to the ED with SOB. 1. Acute on chronic diastolic heart failure - Continue Lasix IV 2. Cellulitis of legs - Completed Unasyn 3. Acute kidney injury - Initially there was some improvement, but creatinine now worsening - Will continue to monitor creatinine 4. Hyponatremia 5. Hypokalemia - Improved 6. Stage 4 CKD 7. HTN - Continue Cozaar, Coreg, Hydralazine, Lasix 8. Type 2 DM - Continue Levemir, Novolog sliding scale 9. Hyperlipidemia 10. Hypothyroidism - Continue Synthroid 11. GERD - Continue Pepcid 12. History of CVAs - Continue aspirin 13. History of breast cancer, lumpectomy and RT - Continue Femara 14. Anemia, macrocytic - Likely multifactorial - Stool negative for occult blood 03/27 - Hgb 6.9 today - will repeat and transfuse as needed to keep hgb>7 Visit type - Emergency Visit Emergency Visit: Yes ED Registration Date: 04/08/19 Care time: The patient presented to the Emergency Department on the above date and was hospitalized for further evaluation of their emergent condition. - New Patient This patient is new to me today: No - Critical Care Critical Care patient: No - Discharge Referral Referred to [facility] No
--- NOTE | 2019-04-19 11:33 | PN ---
Progress Note (short form) - Note Progress Note: PULMONARY States breathing improving. Leg swelling resolving. No cough or chest pain. Vital Signs Period Temp Pulse Resp BP Sys/Hernandez Pulse Ox Last 24 Hr 97.6 F-97.9 F 73-76 18-20 107-128/43-72 100 Gen: NAD at rest Heart: RRR Lung: decreased breath sounds at the bases Abd: soft, nontender Ext: + edema CBC, BMP 04/19/19 06:49 04/19/19 06:49 Active Medications Acetaminophen (Tylenol -) 650 mg PO Q6H PRN PRN Reason: PAIN Last Admin: 04/18/19 08:32 Dose: 650 mg Carvedilol (Coreg -) 25 mg PO BID [facility] Last Admin: 04/19/19 11:02 Dose: Not Given Famotidine (Pepcid -) 20 mg PO DAILY [facility] Last Admin: 04/19/19 11:01 Dose: 20 mg Furosemide (Lasix Injection -) 80 mg IVPUSH BIDLASIX [facility] Last Admin: 04/19/19 06:27 Dose: 80 mg Hydralazine HCl (Apresoline -) 20 mg PO TID [facility] Last Admin: 04/19/19 06:27 Dose: 20 mg Insulin Aspart (Novolog Vial Sliding Scale -) 1 vial SQ [facility]; Protocol Last Admin: 04/19/19 06:26 Dose: 2 units Insulin Detemir (Levemir Vial) 10 units SQ [facility] Last Admin: 04/18/19 21:55 Dose: 10 unit Letrozole (Femara -) 2.5 mg PO DAILY [facility] Last Admin: 04/19/19 11:02 Dose: 2.5 mg Levothyroxine Sodium (Synthroid -) 112 mcg PO DAILY@0700 [facility] Last Admin: 04/19/19 06:28 Dose: 112 mcg Losartan Potassium (Cozaar -) 50 mg PO DAILY [facility] Last Admin: 04/19/19 11:02 Dose: Not Given Multivitamins/Minerals/Vitamin C (Tab-A-Vit -) 1 tab PO DAILY [facility] Last Admin: 04/19/19 11:01 Dose: 1 tab Pregabalin (Lyrica -) 50 mg PO BID [facility] Last Admin: 04/19/19 11:01 Dose: 50 mg A/P Acute on Chronic Diastolic Heart Failure Acute on Chronic Renal Failure Hyponatremia HTN DM Hyperlipidemia Hypothyroidism GERD h/o Breast Ca h/o CVA Anemia - continue lasix - monitor urine output, creatinine - daily weights - O2 to keep SpO2 >90% - monitor lytes - DVT prophylaxis
[2019-04-19 11:35] LABS: ANISOCYTOSIS 2+; MACROCYTOSIS 2+; PLATELET ESTIMATE NORMAL
[2019-04-19 13:31] LABS: HEMATOCRIT 22.1 % (32.4-45.2); HEMOGLOBIN 7.6 GM/dL (10.7-15.3); MCH 34.3 pg (25.7-33.7); MCHC 34.2 g/dl (32.0-36.0); MEAN CELL VOLUME 100.1 fl (80-96); MEAN PLT VOLUME 8.2 fl (7.5-11.1); PLATELET COUNT 327 K/MM3 (134-434); RDW 17.6 % (11.6-15.6); WHITE BLOOD COUNT 19.1 K/mm3 (4.0-10.0)
--- NOTE | 2019-04-19 14:03 | PN ---
Progress Note, Physician History of Present Illness: Pt seen and examined at bedside. She is awake and alert. She feels that her breathing is improved. - Current Medication List Current Medications: Active Medications Acetaminophen (Tylenol -) 650 mg PO Q6H PRN PRN Reason: PAIN Last Admin: 04/18/19 08:32 Dose: 650 mg Carvedilol (Coreg -) 25 mg PO BID [facility] Last Admin: 04/19/19 13:06 Dose: 25 mg Famotidine (Pepcid -) 20 mg PO DAILY [facility] Last Admin: 04/19/19 11:01 Dose: 20 mg Furosemide (Lasix Injection -) 80 mg IVPUSH BIDLASIX [facility] Last Admin: 04/19/19 06:27 Dose: 80 mg Hydralazine HCl (Apresoline -) 20 mg PO TID [facility] Last Admin: 04/19/19 06:27 Dose: 20 mg Insulin Aspart (Novolog Vial Sliding Scale -) 1 vial SQ [facility]; Protocol Last Admin: 04/19/19 11:58 Dose: 8 units Insulin Detemir (Levemir Vial) 10 units SQ HS [facility] Last Admin: 04/18/19 21:55 Dose: 10 unit Letrozole (Femara -) 2.5 mg PO DAILY [facility] Last Admin: 04/19/19 11:02 Dose: 2.5 mg Levothyroxine Sodium (Synthroid -) 112 mcg PO DAILY@0700 [facility] Last Admin: 04/19/19 06:28 Dose: 112 mcg Losartan Potassium (Cozaar -) 50 mg PO DAILY [facility] Last Admin: 04/19/19 13:06 Dose: 50 mg Multivitamins/Minerals/Vitamin C (Tab-A-Vit -) 1 tab PO DAILY [facility] Last Admin: 04/19/19 11:01 Dose: 1 tab Pregabalin (Lyrica -) 50 mg PO BID [facility] Last Admin: 04/19/19 11:01 Dose: 50 mg - Objective Vital Signs: Vital Signs Temperature 97.7 F 04/19/19 10:56 Pulse Rate 77 04/19/19 13:03 Respiratory Rate 20 04/19/19 13:03 Blood Pressure 144/59 L 04/19/19 13:03 O2 Sat by Pulse Oximetry (%) 100 04/18/19 21:00 Constitutional: Yes: Calm Eyes: Yes: Conjunctiva Clear HENT: Yes: Atraumatic Neck: Yes: Supple Cardiovascular: Yes: S1, S2 Respiratory: Yes: CTA Bilaterally Gastrointestinal: Yes: Soft Genitourinary: Yes: WNL Musculoskeletal: Yes: WNL Edema: Yes Edema: LLE: 2+, RLE: 2+ Neurological: Yes: Oriented Psychiatric: Yes: Oriented Labs: CBC, BMP 04/19/19 13:00 04/19/19 06:49 INR, PTT INR 1.01 (0.83-1.09) 04/08/19 22:30 Assessment/Plan Current Medications Generic Name Dose Route Start Last Admin Trade Name Freq PRN Reason Stop Dose Admin Acetaminophen 650 mg 04/11/19 13:59 04/18/19 08:32 Tylenol - PO 650 mg Q6H PRN Administration PAIN Carvedilol 25 mg 04/11/19 22:00 04/19/19 13:06 Coreg - PO 25 mg BID [facility] Administration Famotidine 20 mg 04/12/19 10:00 04/19/19 11:01 Pepcid - PO 20 mg DAILY [facility] Administration Furosemide 80 mg 04/12/19 16:00 04/19/19 06:27 Lasix Injection - IVPUSH 80 mg BIDLASIX [facility] Administration Hydralazine HCl 20 mg 04/11/19 14:00 04/19/19 06:27 Apresoline - PO 20 mg TID [facility] Administration Insulin Aspart 1 vial 04/11/19 16:30 04/19/19 11:58 Novolog Vial Sliding Scale - SQ 8 units ACHS [facility] Administration Protocol Insulin Detemir 10 units 04/14/19 14:18 04/18/19 21:55 Levemir Vial SQ 10 unit HS [facility] Administration Letrozole 2.5 mg 04/12/19 10:00 04/19/19 11:02 Femara - PO 2.5 mg DAILY [facility] Administration Levothyroxine Sodium 112 mcg 04/12/19 07:00 04/19/19 06:28 Synthroid - PO 112 mcg DAILY@0700 [facility] Administration Losartan Potassium 50 mg 04/13/19 15:15 04/19/19 13:06 Cozaar - PO 50 mg DAILY [facility] Administration Multivitamins/Minerals/Vitamin C 1 tab 04/12/19 10:00 04/19/19 11:01 Tab-A-Vit - PO 1 tab DAILY [facility] Administration Pregabalin 50 mg 04/18/19 22:00 04/19/19 11:01 Lyrica - PO 50 mg BID [facility] Administration Impression 1. proteinuria 2. hypothyroid 3. HTN 4. DM 5. fluid overload 6. breast cancer 7. MAURICE 8. CKD Plan - cont lasix - will hold off metolazone today as applications specialist is higher - weight is down to 194 - repeat labs in am - [address] Sequeira
--- NOTE | 2019-04-19 14:18 | PN ---
Progress Note, Physician History of Present Illness: stable no new issues - Current Medication List Current Medications: Active Medications Acetaminophen (Tylenol -) 650 mg PO Q6H PRN PRN Reason: PAIN Last Admin: 04/18/19 08:32 Dose: 650 mg Carvedilol (Coreg -) 25 mg PO BID [facility] Last Admin: 04/19/19 13:06 Dose: 25 mg Famotidine (Pepcid -) 20 mg PO DAILY [facility] Last Admin: 04/19/19 11:01 Dose: 20 mg Furosemide (Lasix Injection -) 80 mg IVPUSH BIDLASIX [facility] Last Admin: 04/19/19 06:27 Dose: 80 mg Hydralazine HCl (Apresoline -) 20 mg PO TID [facility] Last Admin: 04/19/19 06:27 Dose: 20 mg Insulin Aspart (Novolog Vial Sliding Scale -) 1 vial SQ ACHS [facility]; Protocol Last Admin: 04/19/19 11:58 Dose: 8 units Insulin Detemir (Levemir Vial) 10 units SQ HS [facility] Last Admin: 04/18/19 21:55 Dose: 10 unit Letrozole (Femara -) 2.5 mg PO DAILY [facility] Last Admin: 04/19/19 11:02 Dose: 2.5 mg Levothyroxine Sodium (Synthroid -) 112 mcg PO DAILY@0700 [facility] Last Admin: 04/19/19 06:28 Dose: 112 mcg Losartan Potassium (Cozaar -) 50 mg PO DAILY [facility] Last Admin: 04/19/19 13:06 Dose: 50 mg Multivitamins/Minerals/Vitamin C (Tab-A-Vit -) 1 tab PO DAILY [facility] Last Admin: 04/19/19 11:01 Dose: 1 tab Pregabalin (Lyrica -) 50 mg PO BID [facility] Last Admin: 04/19/19 11:01 Dose: 50 mg - Objective Vital Signs: Vital Signs Temperature 97.7 F 04/19/19 10:56 Pulse Rate 77 04/19/19 13:03 Respiratory Rate 20 04/19/19 13:03 Blood Pressure 144/59 L 04/19/19 13:03 O2 Sat by Pulse Oximetry (%) 100 04/18/19 21:00 Constitutional: Yes: No Distress, Calm Cardiovascular: Yes: S1, S2 Respiratory: Yes: Regular, CTA Bilaterally Gastrointestinal: Yes: Normal Bowel Sounds, Soft Musculoskeletal: Yes: WNL Extremities: Yes: Other Edema: LLE: 1+, RLE: 1+ Neurological: Yes: Alert, Oriented Psychiatric: Yes: Alert, Oriented Labs: CBC, BMP 04/19/19 13:00 04/19/19 06:49 INR, PTT INR 1.01 (0.83-1.09) 04/08/19 22:30 Assessment/Plan Problem List - Problems (1) Acute diastolic (congestive) heart failure Code(s): I50.31 - ACUTE DIASTOLIC (CONGESTIVE) HEART FAILURE (2) Acute kidney injury superimposed on CKD Code(s): N17.9 - ACUTE KIDNEY FAILURE, UNSPECIFIED; N18.9 - CHRONIC KIDNEY DISEASE, UNSPECIFIED (3) Anemia Code(s): D64.9 - ANEMIA, UNSPECIFIED Qualifiers: Anemia type: unspecified type Qualified Code(s): D64.9 - Anemia, unspecified (4) Bilateral leg edema Code(s): R60.0 - LOCALIZED EDEMA (5) Hypothyroid Code(s): E03.9 - HYPOTHYROIDISM, UNSPECIFIED Qualifiers: Hypothyroidism type: unspecified Qualified Code(s): E03.9 - Hypothyroidism , unspecified (6) Shortness of breath Code(s): R06.02 - SHORTNESS OF BREATH (7) Breast cancer, left Code(s): C50.912 - MALIGNANT NEOPLASM OF UNSPECIFIED SITE OF LEFT FEMALE BREAST (8) Diabetes Code(s): E11.9 - TYPE 2 DIABETES MELLITUS WITHOUT COMPLICATIONS Qualifiers: Diabetes mellitus type: type 2 (9) GERD (gastroesophageal reflux disease) Code(s): K21.9 - GASTRO-ESOPHAGEAL REFLUX DISEASE WITHOUT ESOPHAGITIS (10) HTN (hypertension) Code(s): I10 - ESSENTIAL (PRIMARY) HYPERTENSION (11) History of CVA with residual deficit Code(s): I69.30 - UNSPECIFIED SEQUELAE OF CEREBRAL INFARCTION (12) Lower extremity cellulitis Code(s): L03.119 - CELLULITIS OF UNSPECIFIED PART OF LIMB Assessment/Plan 89 y.o. female with PMH of DM, CKD, HTN, HLD, anemia, Lt breast CA s/p lumpectomy/RT, hypothyroidism, CVA, GBS, remote history of meningitis presents with complaints of worsening SOB and b/l LE edema that began several days [employer] after recent hospital discharge. Treated for b/l LE cellulitis with some improvement. Noted to have leukocytosis, LE erythema, worsening renal function and anemia b/l LE cellulitis Leukocytosis SOB b/l LE edema Acute diastolic HF Anemia Acute on chronic RF DM HTN Hx of Lt Breast CA Hypothyroidism Hx of CVAs plan clinically patient looks stable wbc has increased will restart abx rest as per the team will d/w the team
[2019-04-19] MEDS ORDERED: DEXTROSE 5%-WATER - 50 ML IVPB ONE (15:02)
[2019-04-19] MEDS ORDERED: cefTRIAXone SODIUM 1 GM VIAL ONE (15:02)
[2019-04-19] MEDS: CEFTRIAXONE 1 GM in DEXTROSE 5%-WATER - 50 ML IVPB SCH (15:12)
--- NOTE | 2019-04-19 16:33 | PN ---
Progress Note (short form) - Note Progress Note: s: no chest pain, palps, dizziness. stable dyspnea. Current Medications Acetaminophen (Tylenol -) 650 mg PO Q6H PRN PRN Reason: PAIN Last Admin: 04/18/19 08:32 Dose: 650 mg Carvedilol (Coreg -) 25 mg PO BID [facility] Last Admin: 04/19/19 13:06 Dose: 25 mg Famotidine (Pepcid -) 20 mg PO DAILY [facility] Last Admin: 04/19/19 11:01 Dose: 20 mg Furosemide (Lasix Injection -) 80 mg IVPUSH BIDLASIX [facility] Last Admin: 04/19/19 15:11 Dose: 80 mg Hydralazine HCl (Apresoline -) 20 mg PO TID [facility] Last Admin: 04/19/19 15:10 Dose: 20 mg Ceftriaxone Sodium 1 gm/ (Dextrose) 50 mls @ 100 mls/hr IVPB DAILY [facility]; Protocol Last Admin: 04/19/19 15:12 Dose: 100 mls/hr Insulin Aspart (Novolog Vial Sliding Scale -) 1 vial SQ ACHS [facility]; Protocol Last Admin: 04/19/19 11:58 Dose: 8 units Insulin Detemir (Levemir Vial) 10 units SQ HS [facility] Last Admin: 04/18/19 21:55 Dose: 10 unit Letrozole (Femara -) 2.5 mg PO DAILY [facility] Last Admin: 04/19/19 11:02 Dose: 2.5 mg Levothyroxine Sodium (Synthroid -) 112 mcg PO DAILY@0700 [facility] Last Admin: 04/19/19 06:28 Dose: 112 mcg Losartan Potassium (Cozaar -) 50 mg PO DAILY [facility] Last Admin: 04/19/19 13:06 Dose: 50 mg Multivitamins/Minerals/Vitamin C (Tab-A-Vit -) 1 tab PO DAILY [facility] Last Admin: 04/19/19 11:01 Dose: 1 tab Pregabalin (Lyrica -) 50 mg PO BID [facility] Last Admin: 04/19/19 11:01 Dose: 50 mg Vital Signs Period Temp Pulse Resp BP Sys/Hernandez Pulse Ox Last 24 Hr 97.6 F-98.2 F 74-81 18-20 107-144/43-72 100 Constitutional: Yes: Calm Cardiovascular: Yes: Regular Rate and Rhythm Respiratory: Yes: Other (rales 1/3 up b/l) Gastrointestinal: Yes: Soft Edema: Yes Edema: LLE: 1+, RLE: 1+ Neurological: Yes: Alert, Oriented Assessment/Plan EKG: sinus,nl intervals, no ischemic changes CXR: + congestive changes echo 03/2019 nl LV function, mild MR, mild TR, PASP at least 49 mmHg acute diastolic heart failure exacerbation: - recent echo nl LV function, mild pulm HTN - CT chest bilat effusions and vascular congestion pattern, with + flank subcutaneous edema - received metolazone - BUN/Cr rising, hold metolazone today - cont iv lasix 80 BID, still with vol overload, CXR with congestion. monitor daily cr, lytes lower ext cellulitis: - manage per ID, primary HTN - cont current meds MUARICE on CKD: - recent creat 2.2-2.4 - renal following -Daily BMP while on IV lasix cp: -resolved -ecg unremarkable -trop neg x2 -monitor for now
[2019-04-19] MEDS: INSULIN (LEVEMIR) 100 UNITS/ML UNITS SQ SCH (22:53)
[2019-04-20] MEDS: ACETAMINOPHEN 325 MG TABLET (FP) PO PRN ×2 (06:36→15:21)
[2019-04-20] MEDS: hydrALAZINE HCL 10 MG TABLET PO SCH ×3 (06:36→23:40)
[2019-04-20] MEDS: FUROSEMIDE 40 MG/4 ML INJECTABLE VIAL IVPUSH SCH ×2 (06:38→15:16)
[2019-04-20] MEDS: LEVOTHYROXINE NA 112 MCG TABLET (FP) PO SCH (06:38)
[2019-04-20] MEDS: INSULIN SLIDING SCALE (NOVOLOG) 1 VIAL SQ SCH ×4 (06:52→23:33)
[2019-04-20 08:57] LABS: BASO % 1.4 % (0-2.0); EOS % 5.8 % (0-4.5); HEMATOCRIT 20.6 % (32.4-45.2); LYMPH % 8.5 % (8-40); MCH 33.2 pg (25.7-33.7); MCHC 33.2 g/dl (32.0-36.0); MEAN PLT VOLUME 8.4 fl (7.5-11.1); MONO % 13.8 % (3.8-10.2); NEUT % 70.5 % (42.8-82.8); PLATELET COUNT 288 K/MM3 (134-434); RBC 2.06 M/mm3 (3.60-5.2); RDW 17.3 % (11.6-15.6); WHITE BLOOD COUNT 18.9 K/mm3 (4.0-10.0)
[2019-04-20 09:02] LABS: HEMOGLOBIN 6.8 GM/dL (10.7-15.3)
[2019-04-20] MEDS ORDERED: PT OWN MED DRAWER 7, Y5N ONE (09:11)
[2019-04-20] MEDS ORDERED: cefTRIAXone SODIUM 1 GM VIAL ONE (09:12)
[2019-04-20] MEDS ORDERED: DEXTROSE 5%-WATER - 50 ML IVPB ONE (09:12)
[2019-04-20 09:28] LABS: ALBUMIN 2.8 g/dl (3.4-5.0); BILIRUBIN,TOTAL 0.4 mg/dL (0.2-1); CALCIUM 8.4 mg/dL (8.5-10.1); POTASSIUM 3.8 mmol/L (3.5-5.1); TOT PROT 6.3 g/dl (6.4-8.2)
[2019-04-20] MEDS: PREGABALIN 50 MG CAPSULE PO SCH ×2 (09:40→23:41)
[2019-04-20] MEDS: CEFTRIAXONE 1 GM in DEXTROSE 5%-WATER - 50 ML IVPB SCH (09:40)
[2019-04-20] MEDS: MULTIVITAMINS (DAILY MVI) TABLET (FP) PO SCH (09:40)
[2019-04-20] MEDS: CARVEDILOL 25 MG TABLET (FP) PO SCH ×2 (09:40→23:41)
[2019-04-20] MEDS: FAMOTIDINE 20 MG TABLET PO SCH (09:41)
[2019-04-20] MEDS: LETROZOLE 2.5 MG TABLET (FP) PO SCH (09:42)
[2019-04-20] MEDS: LOSARTAN POTASSIUM 50 MG TABLET (FP) PO SCH (09:45)
[2019-04-20 10:01] LABS: BLOOD UREA NITROGEN 107.3 mg/dL (7-18)
[2019-04-20 10:56] LABS: ANISOCYTOSIS 1+; MACROCYTOSIS 0; PLATELET ESTIMATE NORMAL
--- NOTE | 2019-04-20 12:10 | PN ---
Progress Note, Physician History of Present Illness: stable no new issues - Current Medication List Current Medications: Active Medications Acetaminophen (Tylenol -) 650 mg PO Q6H PRN PRN Reason: PAIN Last Admin: 04/20/19 06:36 Dose: 650 mg Carvedilol (Coreg -) 25 mg PO BID [facility] Last Admin: 04/20/19 09:40 Dose: 25 mg Famotidine (Pepcid -) 20 mg PO DAILY [facility] Last Admin: 04/20/19 09:41 Dose: 20 mg Furosemide (Lasix Injection -) 80 mg IVPUSH BIDLASIX [facility] Last Admin: 04/20/19 06:38 Dose: 80 mg Hydralazine HCl (Apresoline -) 20 mg PO TID [facility] Last Admin: 04/20/19 06:36 Dose: 20 mg Ceftriaxone Sodium 1 gm/ (Dextrose) 50 mls @ 100 mls/hr IVPB DAILY [facility]; Protocol Last Admin: 04/20/19 09:40 Dose: 100 mls/hr Insulin Aspart (Novolog Vial Sliding Scale -) 1 vial SQ [facility]; Protocol Last Admin: 04/20/19 06:52 Dose: 2 units Insulin Detemir (Levemir Vial) 10 units SQ HS [facility] Last Admin: 04/19/19 22:53 Dose: 10 unit Letrozole (Femara -) 2.5 mg PO DAILY [facility] Last Admin: 04/20/19 09:42 Dose: 2.5 mg Levothyroxine Sodium (Synthroid -) 112 mcg PO DAILY@0700 [facility] Last Admin: 04/20/19 06:38 Dose: 112 mcg Losartan Potassium (Cozaar -) 50 mg PO DAILY [facility] Last Admin: 04/20/19 09:45 Dose: 50 mg Multivitamins/Minerals/Vitamin C (Tab-A-Vit -) 1 tab PO DAILY [facility] Last Admin: 04/20/19 09:40 Dose: 1 tab Pregabalin (Lyrica -) 50 mg PO BID [facility] Last Admin: 04/20/19 09:40 Dose: 50 mg - Objective Vital Signs: Vital Signs Temperature 97.5 F L 04/20/19 02:00 Pulse Rate 77 04/20/19 02:00 Respiratory Rate 19 04/20/19 10:00 Blood Pressure 132/39 L 04/20/19 10:00 O2 Sat by Pulse Oximetry (%) 98 04/19/19 21:00 Constitutional: Yes: No Distress, Calm Cardiovascular: Yes: S1, S2 Respiratory: Yes: Regular, CTA Bilaterally Gastrointestinal: Yes: Normal Bowel Sounds, Soft Musculoskeletal: Yes: WNL Extremities: Yes: Other Neurological: Yes: Alert, Oriented Psychiatric: Yes: Alert, Oriented Labs: CBC, BMP 04/20/19 08:00 04/20/19 06:00 INR, PTT INR 1.01 (0.83-1.09) 04/08/19 22:30 Assessment/Plan Problem List - Problems (1) Acute diastolic (congestive) heart failure Code(s): I50.31 - ACUTE DIASTOLIC (CONGESTIVE) HEART FAILURE (2) Acute kidney injury superimposed on CKD Code(s): N17.9 - ACUTE KIDNEY FAILURE, UNSPECIFIED; N18.9 - CHRONIC KIDNEY DISEASE, UNSPECIFIED (3) Anemia Code(s): D64.9 - ANEMIA, UNSPECIFIED Qualifiers: Anemia type: unspecified type Qualified Code(s): D64.9 - Anemia, unspecified (4) Bilateral leg edema Code(s): R60.0 - LOCALIZED EDEMA (5) Hypothyroid Code(s): E03.9 - HYPOTHYROIDISM, UNSPECIFIED Qualifiers: Hypothyroidism type: unspecified Qualified Code(s): E03.9 - Hypothyroidism , unspecified (6) Shortness of breath Code(s): R06.02 - SHORTNESS OF BREATH (7) Breast cancer, left Code(s): C50.912 - MALIGNANT NEOPLASM OF UNSPECIFIED SITE OF LEFT FEMALE BREAST (8) Diabetes Code(s): E11.9 - TYPE 2 DIABETES MELLITUS WITHOUT COMPLICATIONS Qualifiers: Diabetes mellitus type: type 2 (9) GERD (gastroesophageal reflux disease) Code(s): K21.9 - GASTRO-ESOPHAGEAL REFLUX DISEASE WITHOUT ESOPHAGITIS (10) HTN (hypertension) Code(s): I10 - ESSENTIAL (PRIMARY) HYPERTENSION (11) History of CVA with residual deficit Code(s): I69.30 - UNSPECIFIED SEQUELAE OF CEREBRAL INFARCTION (12) Lower extremity cellulitis Code(s): L03.119 - CELLULITIS OF UNSPECIFIED PART OF LIMB Assessment/Plan 89 y.o. female with PMH of DM, CKD, HTN, HLD, anemia, Lt breast CA s/p lumpectomy/RT, hypothyroidism, CVA, GBS, remote history of meningitis presents with complaints of worsening SOB and b/l LE edema that began several days [employer]INE[employer] after recent hospital discharge. Treated for b/l LE cellulitis with some improvement. Noted to have leukocytosis, LE erythema, worsening renal function and anemia b/l LE cellulitis Leukocytosis SOB b/l LE edema Acute diastolic HF Anemia Acute on chronic RF DM HTN Hx of Lt Breast CA Hypothyroidism Hx of CVAs plan clinically patient looks stable will stop abx rest as per team low h and h consider transfusion
--- NOTE | 2019-04-20 12:31 | PN ---
Progress Note (short form) - Note Progress Note: PULMONARY States breathing improving. No cough or chest pain. Vital Signs Period Temp Pulse Resp BP Sys/Hernandez Pulse Ox Last 24 Hr 97.5 F-98.4 F 74-81 18-20 110-144/39-59 98 Gen: NAD at rest Heart: RRR Lung: decreased breath sounds at the bases Abd: soft, nontender Ext: less edema CBC, BMP 04/20/19 08:00 04/20/19 06:00 Active Medications Acetaminophen (Tylenol -) 650 mg PO Q6H PRN PRN Reason: PAIN Last Admin: 04/20/19 06:36 Dose: 650 mg Carvedilol (Coreg -) 25 mg PO BID [facility] Last Admin: 04/20/19 09:40 Dose: 25 mg Famotidine (Pepcid -) 20 mg PO DAILY [facility] Last Admin: 04/20/19 09:41 Dose: 20 mg Furosemide (Lasix Injection -) 40 mg IVPUSH BIDLASIX [facility] Hydralazine HCl (Apresoline -) 20 mg PO TID [facility] Last Admin: 04/20/19 06:36 Dose: 20 mg Ceftriaxone Sodium 1 gm/ (Dextrose) 50 mls @ 100 mls/hr IVPB DAILY [facility]; Protocol Last Admin: 04/20/19 09:40 Dose: 100 mls/hr Insulin Aspart (Novolog Vial Sliding Scale -) 1 vial SQ ACHS [facility]; Protocol Last Admin: 04/20/19 06:52 Dose: 2 units Insulin Detemir (Levemir Vial) 10 units SQ HS [facility] Last Admin: 04/19/19 22:53 Dose: 10 unit Letrozole (Femara -) 2.5 mg PO DAILY [facility] Last Admin: 04/20/19 09:42 Dose: 2.5 mg Levothyroxine Sodium (Synthroid -) 112 mcg PO DAILY@0700 [facility] Last Admin: 04/20/19 06:38 Dose: 112 mcg Losartan Potassium (Cozaar -) 50 mg PO DAILY [facility] Last Admin: 04/20/19 09:45 Dose: 50 mg Multivitamins/Minerals/Vitamin C (Tab-A-Vit -) 1 tab PO DAILY [facility] Last Admin: 04/20/19 09:40 Dose: 1 tab Pregabalin (Lyrica -) 50 mg PO BID [facility] Last Admin: 04/20/19 09:40 Dose: 50 mg A/P Acute on Chronic Diastolic Heart Failure Acute on Chronic Renal Failure Hyponatremia HTN DM Hyperlipidemia Hypothyroidism GERD h/o Breast Ca h/o CVA Anemia - continue lasix - monitor urine output, creatinine - daily weights - transfuse PRBC - monitor H/H - O2 to keep SpO2 >90% - monitor lytes - DVT prophylaxis
[2019-04-20 13:32] LABS: BASO % 1.2 % (0-2.0); EOS % 5.4 % (0-4.5); HEMATOCRIT 23.1 % (32.4-45.2); HEMOGLOBIN 7.7 GM/dL (10.7-15.3); LYMPH % 8.4 % (8-40); MCH 33.7 pg (25.7-33.7); MCHC 33.2 g/dl (32.0-36.0); MEAN CELL VOLUME 101.3 fl (80-96); MEAN PLT VOLUME 8.4 fl (7.5-11.1); MONO % 13.3 % (3.8-10.2); NEUT % 71.7 % (42.8-82.8); PLATELET COUNT 322 K/MM3 (134-434); RBC 2.28 M/mm3 (3.60-5.2); RDW 17.7 % (11.6-15.6); WHITE BLOOD COUNT 20.8 K/mm3 (4.0-10.0)
--- NOTE | 2019-04-20 14:29 | PN ---
Progress Note, Physician History of Present Illness: Pt seen and examined at bedside. SHe is awake and appears comfortable. Her breathing is improved. - Current Medication List Current Medications: Active Medications Acetaminophen (Tylenol -) 650 mg PO Q6H PRN PRN Reason: PAIN Last Admin: 04/20/19 06:36 Dose: 650 mg Carvedilol (Coreg -) 25 mg PO BID [facility] Last Admin: 04/20/19 09:40 Dose: 25 mg Famotidine (Pepcid -) 20 mg PO DAILY [facility] Last Admin: 04/20/19 09:41 Dose: 20 mg Furosemide (Lasix Injection -) 40 mg IVPUSH BIDLASIX [facility] Hydralazine HCl (Apresoline -) 20 mg PO TID [facility] Last Admin: 04/20/19 06:36 Dose: 20 mg Ceftriaxone Sodium 1 gm/ (Dextrose) 50 mls @ 100 mls/hr IVPB DAILY [facility]; Protocol Last Admin: 04/20/19 09:40 Dose: 100 mls/hr Insulin Aspart (Novolog Vial Sliding Scale -) 1 vial SQ ACHS [facility]; Protocol Last Admin: 04/20/19 13:07 Dose: 4 units Insulin Detemir (Levemir Vial) 10 units SQ HS [facility] Last Admin: 04/19/19 22:53 Dose: 10 unit Letrozole (Femara -) 2.5 mg PO DAILY [facility] Last Admin: 04/20/19 09:42 Dose: 2.5 mg Levothyroxine Sodium (Synthroid -) 112 mcg PO DAILY@0700 [facility] Last Admin: 04/20/19 06:38 Dose: 112 mcg Losartan Potassium (Cozaar -) 50 mg PO DAILY [facility] Last Admin: 04/20/19 09:45 Dose: 50 mg Multivitamins/Minerals/Vitamin C (Tab-A-Vit -) 1 tab PO DAILY [facility] Last Admin: 04/20/19 09:40 Dose: 1 tab Pregabalin (Lyrica -) 50 mg PO BID [facility] Last Admin: 04/20/19 09:40 Dose: 50 mg - Objective Vital Signs: Vital Signs Temperature 97.5 F L 04/20/19 02:00 Pulse Rate 77 04/20/19 02:00 Respiratory Rate 19 04/20/19 10:00 Blood Pressure 132/39 L 04/20/19 10:00 O2 Sat by Pulse Oximetry (%) 98 04/19/19 21:00 Constitutional: Yes: Calm Eyes: Yes: Conjunctiva Clear HENT: Yes: Atraumatic Neck: Yes: Supple Cardiovascular: Yes: S1, S2 Respiratory: Yes: CTA Bilaterally Gastrointestinal: Yes: Soft Genitourinary: Yes: WNL Musculoskeletal: Yes: WNL Edema: Yes Edema: LLE: 1+, RLE: 1+ Neurological: Yes: Oriented Psychiatric: Yes: Oriented Labs: CBC, BMP 04/20/19 12:44 04/20/19 06:00 INR, PTT INR 1.01 (0.83-1.09) 04/08/19 22:30 Assessment/Plan Current Medications Generic Name Dose Route Start Last Admin Trade Name Freq PRN Reason Stop Dose Admin Acetaminophen 650 mg 04/11/19 13:59 04/20/19 06:36 Tylenol - PO 650 mg Q6H PRN Administration PAIN Carvedilol 25 mg 04/11/19 22:00 04/20/19 09:40 Coreg - PO 25 mg BID [facility] Administration Famotidine 20 mg 04/12/19 10:00 04/20/19 09:41 Pepcid - PO 20 mg DAILY [facility] Administration Furosemide 40 mg 04/20/19 12:29 Lasix Injection - IVPUSH BIDLASIX [facility] Hydralazine HCl 20 mg 04/11/19 14:00 04/20/19 06:36 Apresoline - PO 20 mg TID [facility] Administration Ceftriaxone Sodium 1 gm/ 50 mls @ 100 mls/hr 04/19/19 14:30 04/20/19 09:40 Dextrose IVPB 100 mls/hr DAILY [facility] Administration Protocol Insulin Aspart 1 vial 04/11/19 16:30 04/20/19 13:07 Novolog Vial Sliding Scale - SQ 4 units ACHS [facility] Administration Protocol Insulin Detemir 10 units 04/14/19 14:18 04/19/19 22:53 Levemir Vial SQ 10 unit HS [facility] Administration Letrozole 2.5 mg 04/12/19 10:00 04/20/19 09:42 Femara - PO 2.5 mg DAILY [facility] Administration Levothyroxine Sodium 112 mcg 04/12/19 07:00 04/20/19 06:38 Synthroid - PO 112 mcg DAILY@0700 [facility] Administration Losartan Potassium 50 mg 04/13/19 15:15 04/20/19 09:45 Cozaar - PO 50 mg DAILY [facility] Administration Multivitamins/Minerals/Vitamin C 1 tab 04/12/19 10:00 04/20/19 09:40 Tab-A-Vit - PO 1 tab DAILY [facility] Administration Pregabalin 50 mg 04/18/19 22:00 04/20/19 09:40 Lyrica - PO 50 mg BID [facility] Administration Impression 1. proteinuria 2. hypothyroid 3. HTN 4. DM 5. fluid overload 6. breast cancer 7. MAURICE 8. CKD Plan - decrease dose of lasix - hold cozaar - repeat labs in am - volume status improved, renal function worsening - cardio follow up - [address] Sequeira
--- NOTE | 2019-04-20 15:39 | PN ---
Teaching Attending Note Name of Resident: Low Noble ATTENDING PHYSICIAN STATEMENT I saw and evaluated the patient. I reviewed the resident's note and discussed the case with the resident. I agree with the resident's findings and plan as documented. SUBJECTIVE: Seen and examined at bedside. Tired today, no new complaints, denies cp, sob, wants to move around more. OBJECTIVE: Vital Signs - 24 hr 04/19/19 04/19/19 04/19/19 18:00 21:00 22:00 Temperature 97.8 F 98.4 F Pulse Rate 74 77 Respiratory 20 18 Rate Blood Pressure 110/54 L 127/52 L O2 Sat by Pulse 98 Oximetry (%) 04/20/19 04/20/19 04/20/19 02:00 06:00 10:00 Temperature 97.5 F L Pulse Rate 77 Respiratory 18 18 19 Rate Blood Pressure 119/51 L 124/58 L 132/39 L O2 Sat by Pulse Oximetry (%) Constitutional: Yes: Well Nourished, No Distress, Calm Cardiovascular: Yes: WNL, Regular Rate and Rhythm Respiratory: Yes: WNL, Regular, CTA Bilaterally Gastrointestinal: Yes: WNL, Normal Bowel Sounds, Soft, Abdomen, Obese Musculoskeletal: Yes: WNL Extremities: Yes: WNL Edema: Yes Edema: LLE: 1+, RLE: 1+ Current Medications Generic Name Dose Route Start Last Admin Trade Name Freq PRN Reason Stop Dose Admin Acetaminophen 650 mg 04/11/19 13:59 04/20/19 15:21 Tylenol - PO 650 mg Q6H PRN Administration PAIN Carvedilol 25 mg 04/11/19 22:00 04/20/19 09:40 Coreg - PO 25 mg BID [facility] Administration Famotidine 20 mg 04/12/19 10:00 04/20/19 09:41 Pepcid - PO 20 mg DAILY [facility] Administration Furosemide 40 mg 04/20/19 12:29 04/20/19 15:16 Lasix Injection - IVPUSH 40 mg BIDLASIX [facility] Administration Hydralazine HCl 20 mg 04/11/19 14:00 04/20/19 15:16 Apresoline - PO 20 mg TID [facility] Administration Ceftriaxone Sodium 1 gm/ 50 mls @ 100 mls/hr 04/19/19 14:30 04/20/19 09:40 Dextrose IVPB 100 mls/hr DAILY [facility] Administration Protocol Insulin Aspart 1 vial 04/11/19 16:30 04/20/19 13:07 Novolog Vial Sliding Scale - SQ 4 units ACHS [facility] Administration Protocol Insulin Detemir 10 units 04/14/19 14:18 04/19/19 22:53 Levemir Vial SQ 10 unit HS [facility] Administration Letrozole 2.5 mg 04/12/19 10:00 04/20/19 09:42 Femara - PO 2.5 mg DAILY [facility] Administration Levothyroxine Sodium 112 mcg 04/12/19 07:00 04/20/19 06:38 Synthroid - PO 112 mcg DAILY@0700 [facility] Administration Multivitamins/Minerals/Vitamin C 1 tab 04/12/19 10:00 04/20/19 09:40 Tab-A-Vit - PO 1 tab DAILY [facility] Administration Pregabalin 50 mg 04/18/19 22:00 04/20/19 09:40 Lyrica - PO 50 mg BID [facility] Administration Laboratory Results - last 24 hr 04/19/19 04/19/19 04/20/19 17:23 21:21 06:00 WBC RBC Hgb Hct MCV MCH MCHC RDW Plt Count MPV Absolute Neuts (auto) Neutrophils % Neutrophils % (Manual) Band Neutrophils % Lymphocytes % Lymphocytes % (Manual) Monocytes % Monocytes % (Manual) Eosinophils % Eosinophils % (Manual) Basophils % Basophils % (Manual) Myelocytes % (Man) Promyelocytes % (Man) Blast Cells % (Manual) Nucleated RBC % Metamyelocytes Hypochromia Platelet Estimate Platelet Comment Polychromasia Poikilocytosis Anisocytosis Microcytosis Macrocytosis Spherocytes Stomatocytes Sodium 132 L Potassium 3.8 Chloride 94 L Carbon Dioxide 28 Anion Gap 10 BUN 107.3 H* Creatinine 3.0 H Est GFR (CKD-EPI)AfAm 15.33 Est GFR (CKD-EPI)NonAf 13.22 POC Glucometer 206 230 Random Glucose 130 H Calcium 8.4 L Total Bilirubin 0.4 AST 17 ALT 14 Alkaline Phosphatase 109 Total Protein 6.3 L Albumin 2.8 L Stool Occult Blood 04/20/19 04/20/19 04/20/19 06:47 08:00 12:44 WBC 18.9 H 20.8 H RBC 2.06 L 2.28 L Hgb 6.8 L* 7.7 L Hct 20.6 L 23.1 L MCV 100.0 H 101.3 H MCH 33.2 33.7 MCHC 33.2 33.2 RDW 17.3 H 17.7 H Plt Count 288 322 MPV 8.4 8.4 Absolute Neuts (auto) 13.3 H 14.9 H Neutrophils % 70.5 71.7 Neutrophils % (Manual) 49.5 Band Neutrophils % 5.1 Lymphocytes % 8.5 8.4 Lymphocytes % (Manual) 3.0 L D Monocytes % 13.8 H 13.3 H Monocytes % (Manual) 13 H Eosinophils % 5.8 H 5.4 H Eosinophils % (Manual) 5.0 H Basophils % 1.4 1.2 Basophils % (Manual) 1.0 Myelocytes % (Man) 6 H Promyelocytes % (Man) 1 Blast Cells % (Manual) 0 Nucleated RBC % 0 0 Metamyelocytes 8 H D Hypochromia 0 Platelet Estimate Normal Platelet Comment Present Polychromasia 1+ Poikilocytosis 1+ Anisocytosis 1+ Microcytosis 1+ Macrocytosis 0 Spherocytes 1+ Stomatocytes 1+ Sodium Potassium Chloride Carbon Dioxide Anion Gap BUN Creatinine Est GFR (CKD-EPI)AfAm Est GFR (CKD-EPI)NonAf POC Glucometer 151 Random Glucose Calcium Total Bilirubin AST ALT Alkaline Phosphatase Total Protein Albumin Stool Occult Blood 04/20/19 04/20/19 13:05 13:45 WBC RBC Hgb Hct MCV MCH MCHC RDW Plt Count MPV Absolute Neuts (auto) Neutrophils % Neutrophils % (Manual) Band Neutrophils % Lymphocytes % Lymphocytes % (Manual) Monocytes % Monocytes % (Manual) Eosinophils % Eosinophils % (Manual) Basophils % Basophils % (Manual) Myelocytes % (Man) Promyelocytes % (Man) Blast Cells % (Manual) Nucleated RBC % Metamyelocytes Hypochromia Platelet Estimate Platelet Comment Polychromasia Poikilocytosis Anisocytosis Microcytosis Macrocytosis Spherocytes Stomatocytes Sodium Potassium Chloride Carbon Dioxide Anion Gap BUN Creatinine Est GFR (CKD-EPI)AfAm Est GFR (CKD-EPI)NonAf POC Glucometer 207 Random Glucose Calcium Total Bilirubin AST ALT Alkaline Phosphatase Total Protein Albumin Stool Occult Blood Negative Microbiology 04/08/19 22:15 Blood - Peripheral Venous Blood Culture - Final NO GROWTH AFTER 5 DAYS INCUBATION 04/08/19 22:40 Blood - Peripheral Venous Blood Culture - Final NO GROWTH AFTER 5 DAYS INCUBATION 04/09/19 01:55 Urine - Urine Clean Catch Urine Culture - Final NO GROWTH OBTAINED All imaging reports reviewed ASSESSMENT: This is an 89 year old woman with a history of HTN, hyperlipidemia, type 2 DM, CVAs, hypothyroidism, GERD, breast cancer who presented to the ED with SOB. Acute on chronic diastolic heart failure Cellulitis MAURICE Stage 4 CKD HTN DM2 HLD Hypothyroidism GERD Hx CVA Hx Breast CA Macrocytic Anemia Plan: -c/w IV lasix, diuresed with addition of metolazone, holding for now monitor renal function -monitor i/os and daily weights -2decho normal LV function -NA and fluid restriction -patient with chronic leukocytosis, was trending down, taken off abx for cellulitis, now rising again, restarted on abx per ID -monitor white count, may need further workup -replete lytes as needed -increased lyrica to 50 mg BID with good effect -c/w current mngmt -cardio eval appreciated Problem List - Problems (1) Acute diastolic (congestive) heart failure Code(s): I50.31 - ACUTE DIASTOLIC (CONGESTIVE) HEART FAILURE (2) Acute kidney injury superimposed on CKD Code(s): N17.9 - ACUTE KIDNEY FAILURE, UNSPECIFIED; N18.9 - CHRONIC KIDNEY DISEASE, UNSPECIFIED (3) Anemia Code(s): D64.9 - ANEMIA, UNSPECIFIED Qualifiers: Anemia type: unspecified type Qualified Code(s): D64.9 - Anemia, unspecified (4) Bilateral leg edema Code(s): R60.0 - LOCALIZED EDEMA (5) Hypothyroid Code(s): E03.9 - HYPOTHYROIDISM, UNSPECIFIED Qualifiers: Hypothyroidism type: unspecified Qualified Code(s): E03.9 - Hypothyroidism , unspecified (6) Pulmonary vascular congestion Code(s): R09.89 - OTH SYMPTOMS AND SIGNS INVOLVING THE CIRC AND RESP SYSTEMS (7) Shortness of breath Code(s): R06.02 - SHORTNESS OF BREATH (8) Breast cancer Code(s): C50.919 - MALIGNANT NEOPLASM OF UNSP SITE OF UNSPECIFIED FEMALE BREAST (9) Diabetes Code(s): E11.9 - TYPE 2 DIABETES MELLITUS WITHOUT COMPLICATIONS Qualifiers: Diabetes mellitus type: type 2 (10) GERD (gastroesophageal reflux disease) Code(s): K21.9 - GASTRO-ESOPHAGEAL REFLUX DISEASE WITHOUT ESOPHAGITIS (11) HTN (hypertension) Code(s): I10 - ESSENTIAL (PRIMARY) HYPERTENSION (12) Lower extremity cellulitis Code(s): L03.119 - CELLULITIS OF UNSPECIFIED PART OF LIMB
[2019-04-20 15:47] LABS: ANISOCYTOSIS 1+; MACROCYTOSIS 0; PLATELET ESTIMATE NORMAL
--- NOTE | 2019-04-20 15:51 | PN ---
Progress Note, Physician Chief Complaint: Denies CP Renal input noted IV Lasix dose reduced due to elevated BUN/creat Stool guaiac negative - Current Medication List Current Medications: Active Medications Acetaminophen (Tylenol -) 650 mg PO Q6H PRN PRN Reason: PAIN Last Admin: 04/20/19 15:21 Dose: 650 mg Carvedilol (Coreg -) 25 mg PO BID [facility] Last Admin: 04/20/19 09:40 Dose: 25 mg Famotidine (Pepcid -) 20 mg PO DAILY [facility] Last Admin: 04/20/19 09:41 Dose: 20 mg Furosemide (Lasix Injection -) 40 mg IVPUSH BIDLASIX [facility] Last Admin: 04/20/19 15:16 Dose: 40 mg Hydralazine HCl (Apresoline -) 20 mg PO TID [facility] Last Admin: 04/20/19 15:16 Dose: 20 mg Ceftriaxone Sodium 1 gm/ (Dextrose) 50 mls @ 100 mls/hr IVPB DAILY [facility]; Protocol Last Admin: 04/20/19 09:40 Dose: 100 mls/hr Insulin Aspart (Novolog Vial Sliding Scale -) 1 vial SQ ACHS [facility]; Protocol Last Admin: 04/20/19 13:07 Dose: 4 units Insulin Detemir (Levemir Vial) 10 units SQ HS [facility] Last Admin: 04/19/19 22:53 Dose: 10 unit Letrozole (Femara -) 2.5 mg PO DAILY [facility] Last Admin: 04/20/19 09:42 Dose: 2.5 mg Levothyroxine Sodium (Synthroid -) 112 mcg PO DAILY@0700 [facility] Last Admin: 04/20/19 06:38 Dose: 112 mcg Multivitamins/Minerals/Vitamin C (Tab-A-Vit -) 1 tab PO DAILY [facility] Last Admin: 04/20/19 09:40 Dose: 1 tab Pregabalin (Lyrica -) 50 mg PO BID [facility] Last Admin: 04/20/19 09:40 Dose: 50 mg - Objective Vital Signs: Vital Signs Temperature 97.5 F L 04/20/19 02:00 Pulse Rate 77 04/20/19 02:00 Respiratory Rate 19 04/20/19 10:00 Blood Pressure 132/39 L 04/20/19 10:00 O2 Sat by Pulse Oximetry (%) 98 04/19/19 21:00 Constitutional: Yes: No Distress Cardiovascular: Yes: Regular Rate and Rhythm Respiratory: Yes: CTA Bilaterally (no rales) Gastrointestinal: Yes: Soft (NT) Edema: No (mild overlying erythema) Neurological: Yes: Alert, Oriented Labs: CBC, BMP 04/20/19 12:44 04/20/19 06:00 INR, PTT INR 1.01 (0.83-1.09) 04/08/19 22:30 Assessment/Plan EKG: sinus,nl intervals, no ischemic changes CXR: + congestive changes echo 03/2019 nl LV function, mild MR, mild TR, PASP at least 49 mmHg acute diastolic heart failure exacerbation: - recent echo nl LV function, mild pulm HTN - CT chest bilat effusions and vascular congestion pattern, with + flank subcutaneous edema -Agree with Renal, IV Lasix dose reduced. Check BMP daily to closely f/u renal fx lower ext cellulitis: - manage per ID, primary HTN - cont current meds MAURICE on CKD: - recent creat 2.2-2.4 - renal following -Daily BMP while on IV lasix cp: -resolved -ecg unremarkable -trop neg x2 -monitor for now Anemia: -As per primary team
--- NOTE | 2019-04-20 17:20 | PN ---
Physical Exam: SUBJECTIVE: Patient seen and examined. No events overnight. Offers no complaints. Hgb 6.8 this AM. Repeat 7.7. OBJECTIVE: Vital Signs Period Temp Pulse Resp BP Sys/Hernandez Pulse Ox Last 24 Hr 97.5 F-98.4 F 74-77 18-20 110-132/39-58 96-98 GENERAL: comfortable, nad HEAD: Normal with no signs of trauma. EYES: PERRL, conjunctiva clear ENT: moist mucous membranes. NECK: supple. LUNGS: CTA b/l HEART: RRR ABDOMEN: Soft, nontender, nondistended, normoactive bowel sounds EXTREMITIES: 2+ pulses, +edema b/l Laboratory Results - last 24 hr 04/19/19 04/19/19 04/20/19 17:23 21:21 06:00 WBC RBC Hgb Hct MCV MCH MCHC RDW Plt Count MPV Absolute Neuts (auto) Neutrophils % Neutrophils % (Manual) Band Neutrophils % Lymphocytes % Lymphocytes % (Manual) Monocytes % Monocytes % (Manual) Eosinophils % Eosinophils % (Manual) Basophils % Basophils % (Manual) Myelocytes % (Man) Promyelocytes % (Man) Blast Cells % (Manual) Nucleated RBC % Metamyelocytes Hypochromia Platelet Estimate Platelet Comment Polychromasia Poikilocytosis Anisocytosis Microcytosis Macrocytosis Spherocytes Stomatocytes Sodium 132 L Potassium 3.8 Chloride 94 L Carbon Dioxide 28 Anion Gap 10 BUN 107.3 H* Creatinine 3.0 H Est GFR (CKD-EPI)AfAm 15.33 Est GFR (CKD-EPI)NonAf 13.22 POC Glucometer 206 230 Random Glucose 130 H Calcium 8.4 L Total Bilirubin 0.4 AST 17 ALT 14 Alkaline Phosphatase 109 Total Protein 6.3 L Albumin 2.8 L Stool Occult Blood 04/20/19 04/20/19 04/20/19 06:47 08:00 12:44 WBC 18.9 H 20.8 H RBC 2.06 L 2.28 L Hgb 6.8 L* 7.7 L Hct 20.6 L 23.1 L MCV 100.0 H 101.3 H MCH 33.2 33.7 MCHC 33.2 33.2 RDW 17.3 H 17.7 H Plt Count 288 322 MPV 8.4 8.4 Absolute Neuts (auto) 13.3 H 14.9 H Neutrophils % 70.5 71.7 Neutrophils % (Manual) 49.5 52.8 Band Neutrophils % 5.1 9.4 Lymphocytes % 8.5 8.4 Lymphocytes % (Manual) 3.0 L D 17.0 D Monocytes % 13.8 H 13.3 H Monocytes % (Manual) 13 H 13 H Eosinophils % 5.8 H 5.4 H Eosinophils % (Manual) 5.0 H 3.8 Basophils % 1.4 1.2 Basophils % (Manual) 1.0 1.9 Myelocytes % (Man) 6 H 0 D Promyelocytes % (Man) 1 0 D Blast Cells % (Manual) 0 0 Nucleated RBC % 0 0 Metamyelocytes 8 H D 0 D Hypochromia 0 0 Platelet Estimate Normal Normal Platelet Comment Present Polychromasia 1+ 2+ Poikilocytosis 1+ 1+ Anisocytosis 1+ 1+ Microcytosis 1+ 1+ Macrocytosis 0 0 Spherocytes 1+ 1+ Stomatocytes 1+ Sodium Potassium Chloride Carbon Dioxide Anion Gap BUN Creatinine Est GFR (CKD-EPI)AfAm Est GFR (CKD-EPI)NonAf POC Glucometer 151 Random Glucose Calcium Total Bilirubin AST ALT Alkaline Phosphatase Total Protein Albumin Stool Occult Blood 04/20/19 04/20/19 13:05 13:45 WBC RBC Hgb Hct MCV MCH MCHC RDW Plt Count MPV Absolute Neuts (auto) Neutrophils % Neutrophils % (Manual) Band Neutrophils % Lymphocytes % Lymphocytes % (Manual) Monocytes % Monocytes % (Manual) Eosinophils % Eosinophils % (Manual) Basophils % Basophils % (Manual) Myelocytes % (Man) Promyelocytes % (Man) Blast Cells % (Manual) Nucleated RBC % Metamyelocytes Hypochromia Platelet Estimate Platelet Comment Polychromasia Poikilocytosis Anisocytosis Microcytosis Macrocytosis Spherocytes Stomatocytes Sodium Potassium Chloride Carbon Dioxide Anion Gap BUN Creatinine Est GFR (CKD-EPI)AfAm Est GFR (CKD-EPI)NonAf POC Glucometer 207 Random Glucose Calcium Total Bilirubin AST ALT Alkaline Phosphatase Total Protein Albumin Stool Occult Blood Negative Active Medications Generic Name Dose Route Start Last Admin Trade Name Freq PRN Reason Stop Dose Admin Acetaminophen 650 mg 04/11/19 13:59 04/20/19 15:21 Tylenol - PO 650 mg Q6H PRN Administration PAIN Carvedilol 25 mg 04/11/19 22:00 04/20/19 09:40 Coreg - PO 25 mg BID [facility] Administration Famotidine 20 mg 04/12/19 10:00 04/20/19 09:41 Pepcid - PO 20 mg DAILY [facility] Administration Furosemide 40 mg 04/20/19 12:29 04/20/19 15:16 Lasix Injection - IVPUSH 40 mg BIDLASIX [facility] Administration Hydralazine HCl 20 mg 04/11/19 14:00 04/20/19 15:16 Apresoline - PO 20 mg TID [facility] Administration Ceftriaxone Sodium 1 gm/ 50 mls @ 100 mls/hr 04/19/19 14:30 04/20/19 09:40 Dextrose IVPB 100 mls/hr DAILY [facility] Administration Protocol Insulin Aspart 1 vial 04/11/19 16:30 04/20/19 13:07 Novolog Vial Sliding Scale - SQ 4 units ACHS [facility] Administration Protocol Insulin Detemir 10 units 04/14/19 14:18 04/19/19 22:53 Levemir Vial SQ 10 unit HS [facility] Administration Letrozole 2.5 mg 04/12/19 10:00 04/20/19 09:42 Femara - PO 2.5 mg DAILY [facility] Administration Levothyroxine Sodium 112 mcg 04/12/19 07:00 04/20/19 06:38 Synthroid - PO 112 mcg DAILY@0700 [facility] Administration Multivitamins/Minerals/Vitamin C 1 tab 04/12/19 10:00 04/20/19 09:40 Tab-A-Vit - PO 1 tab DAILY [facility] Administration Pregabalin 50 mg 04/18/19 22:00 04/20/19 09:40 Lyrica - PO 50 mg BID [facility] Administration ASSESSMENT/PLAN: This is an 89 year old woman with a history of HTN, hyperlipidemia, type 2 DM, CVAs, hypothyroidism, GERD, breast cancer who presented to the ED with SOB. #Acute on chronic diastolic heart failure #Cellulitis #MAURICE #Stage 4 CKD #HTN #DM2 #HLD #Hypothyroidism #GERD #Hx CVA #Hx Breast CA #Macrocytic Anemia Plan: -Decrease Lasix to 40mg BID from 80mg BID. Metolazone held for now due to worsening Cr. -monitor cr -monitor i/os and daily weights -echo unremarkable -NA and fluid restriction -patient with chronic leukocytosis, was trending down, taken off abx for cellulitis, now rising again, restarted on abx per ID -monitor white count, may need further workup. will consider heme/onc consult. -replete lytes as needed -increased lyrica to 50 mg BID with good effect -SSI, Levemir 10U HS -FU renal reccs -FU am labs -cardio eval appreciated -Heme consult -DVT ppx with SCDs. Patient with borderline anemia. low threshold for transfusion Visit type - Emergency Visit Emergency Visit: Yes ED Registration Date: 04/08/19 Care time: The patient presented to the Emergency Department on the above date and was hospitalized for further evaluation of their emergent condition. - New Patient This patient is new to me today: Yes Date on this admission: 04/20/19 - Critical Care Critical Care patient: No ATTENDING PHYSICIAN STATEMENT I saw and evaluated the patient. I reviewed the resident's note and discussed the case with the resident. I agree with the resident's findings and plan as documented. SUBJECTIVE: OBJECTIVE: ASSESSMENT AND PLAN:
--- NOTE | 2019-04-20 17:41 | CONSULT ---
Consultation: REQUESTING PROVIDER:primary team Dr Noble CONSULT REQUEST: We have been asked to medically evaluate this patient for ( anemia ). HISTORY OF PRESENT ILLNESS: 89 yo F PMH of HTN, HLD, Left breast cancer, Hypothyroidism, GERD, NIDDM and Multiple CVAs, recently admitted at [place] for bilateral LE cellulitis ( discharged 04/06/19) presenting with shortness of breath . we were cosnulted for anemia pt has historty of breast cancer 5 years ago and was treated with surgery and radiation , she follow up with dr Whitlock he told her she has disease cusin of luekemia reports wait gain from fluid over loaded reports easy bruising reports constipation , orthopnea and dyspnea on exertion REVIEW OF SYSTEMS:shortness of breath , dyspnea on exertion , orthopnea , LE edema , gain wait of fluid over loaded and immobility PHYSICAL EXAMINATION Vital Signs - 24 hr 04/19/19 04/19/19 04/19/19 18:00 21:00 22:00 Temperature 97.8 F 98.4 F Pulse Rate 74 77 Respiratory 20 18 Rate Blood Pressure 110/54 L 127/52 L O2 Sat by Pulse 98 Oximetry (%) 04/20/19 04/20/19 04/20/19 02:00 06:00 09:00 Temperature 97.5 F L Pulse Rate 77 Respiratory 18 18 Rate Blood Pressure 119/51 L 124/58 L O2 Sat by Pulse 96 Oximetry (%) 04/20/19 04/20/19 10:00 14:00 Temperature 97.9 F Pulse Rate 74 Respiratory 19 19 Rate Blood Pressure 132/39 L 122/56 L O2 Sat by Pulse Oximetry (%) GENERAL: Awake, alert, and fully oriented, in no acute distress.generalized fatigue HEAD: Normal with no signs of trauma. EYES: Pupils equal, round and reactive to light, extraocular movements intact, sclera anicteric, EARS, NOSE, THROAT:dry mucous membranes.no oral thrush or mucositis noted NECK: supple no lymphadenopathy LUNGS: bibasilar crackles HEART: Regular rate and rhythm, normal S1 and S2 without murmur, rub or gallop. ABDOMEN: Soft, diffuse tenderness , distended, normoactive bowel sounds, LOWER EXTREMITIES: 2+ pulses, warm, well-perfused. trace peripheral edema. B/L erythema with cellulitis NEUROLOGICAL: no focal deficit . Normal speech. PSYCHIATRIC: Cooperative. SKIN: Warm, dry, normal turgor, no breast mass palpated . surgery scar beneath left breast no lymph nodes enlargement Laboratory Results - last 24 hr 04/19/19 04/20/19 04/20/19 21:21 06:00 06:47 WBC RBC Hgb Hct MCV MCH MCHC RDW Plt Count MPV Absolute Neuts (auto) Neutrophils % Neutrophils % (Manual) Band Neutrophils % Lymphocytes % Lymphocytes % (Manual) Monocytes % Monocytes % (Manual) Eosinophils % Eosinophils % (Manual) Basophils % Basophils % (Manual) Myelocytes % (Man) Promyelocytes % (Man) Blast Cells % (Manual) Nucleated RBC % Metamyelocytes Hypochromia Platelet Estimate Platelet Comment Polychromasia Poikilocytosis Anisocytosis Microcytosis Macrocytosis Spherocytes Stomatocytes Sodium 132 L Potassium 3.8 Chloride 94 L Carbon Dioxide 28 Anion Gap 10 BUN 107.3 H* Creatinine 3.0 H Est GFR (CKD-EPI)AfAm 15.33 Est GFR (CKD-EPI)NonAf 13.22 POC Glucometer 230 151 Random Glucose 130 H Calcium 8.4 L Total Bilirubin 0.4 AST 17 ALT 14 Alkaline Phosphatase 109 Total Protein 6.3 L Albumin 2.8 L Stool Occult Blood 04/20/19 04/20/19 04/20/19 08:00 12:44 13:05 WBC 18.9 H 20.8 H RBC 2.06 L 2.28 L Hgb 6.8 L* 7.7 L Hct 20.6 L 23.1 L MCV 100.0 H 101.3 H MCH 33.2 33.7 MCHC 33.2 33.2 RDW 17.3 H 17.7 H Plt Count 288 322 MPV 8.4 8.4 Absolute Neuts (auto) 13.3 H 14.9 H Neutrophils % 70.5 71.7 Neutrophils % (Manual) 49.5 52.8 Band Neutrophils % 5.1 9.4 Lymphocytes % 8.5 8.4 Lymphocytes % (Manual) 3.0 L D 17.0 D Monocytes % 13.8 H 13.3 H Monocytes % (Manual) 13 H 13 H Eosinophils % 5.8 H 5.4 H Eosinophils % (Manual) 5.0 H 3.8 Basophils % 1.4 1.2 Basophils % (Manual) 1.0 1.9 Myelocytes % (Man) 6 H 0 D Promyelocytes % (Man) 1 0 D Blast Cells % (Manual) 0 0 Nucleated RBC % 0 0 Metamyelocytes 8 H D 0 D Hypochromia 0 0 Platelet Estimate Normal Normal Platelet Comment Present Polychromasia 1+ 2+ Poikilocytosis 1+ 1+ Anisocytosis 1+ 1+ Microcytosis 1+ 1+ Macrocytosis 0 0 Spherocytes 1+ 1+ Stomatocytes 1+ Sodium Potassium Chloride Carbon Dioxide Anion Gap BUN Creatinine Est GFR (CKD-EPI)AfAm Est GFR (CKD-EPI)NonAf POC Glucometer 207 Random Glucose Calcium Total Bilirubin AST ALT Alkaline Phosphatase Total Protein Albumin Stool Occult Blood 04/20/19 13:45 WBC RBC Hgb Hct MCV MCH MCHC RDW Plt Count MPV Absolute Neuts (auto) Neutrophils % Neutrophils % (Manual) Band Neutrophils % Lymphocytes % Lymphocytes % (Manual) Monocytes % Monocytes % (Manual) Eosinophils % Eosinophils % (Manual) Basophils % Basophils % (Manual) Myelocytes % (Man) Promyelocytes % (Man) Blast Cells % (Manual) Nucleated RBC % Metamyelocytes Hypochromia Platelet Estimate Platelet Comment Polychromasia Poikilocytosis Anisocytosis Microcytosis Macrocytosis Spherocytes Stomatocytes Sodium Potassium Chloride Carbon Dioxide Anion Gap BUN Creatinine Est GFR (CKD-EPI)AfAm Est GFR (CKD-EPI)NonAf POC Glucometer Random Glucose Calcium Total Bilirubin AST ALT Alkaline Phosphatase Total Protein Albumin Stool Occult Blood Negative Active Medications Generic Name Dose Route Start Last Admin Trade Name Freq PRN Reason Stop Dose Admin Acetaminophen 650 mg 04/11/19 13:59 04/20/19 15:21 Tylenol - PO 650 mg Q6H PRN Administration PAIN Carvedilol 25 mg 04/11/19 22:00 04/20/19 09:40 Coreg - PO 25 mg BID [facility] Administration Famotidine 20 mg 04/12/19 10:00 04/20/19 09:41 Pepcid - PO 20 mg DAILY [facility] Administration Furosemide 40 mg 04/20/19 12:29 04/20/19 15:16 Lasix Injection - IVPUSH 40 mg BIDLASIX [facility] Administration Hydralazine HCl 20 mg 04/11/19 14:00 04/20/19 15:16 Apresoline - PO 20 mg TID [facility] Administration Ceftriaxone Sodium 1 gm/ 50 mls @ 100 mls/hr 04/19/19 14:30 04/20/19 09:40 Dextrose IVPB 100 mls/hr DAILY [facility] Administration Protocol Insulin Aspart 1 vial 04/11/19 16:30 04/20/19 13:07 Novolog Vial Sliding Scale - SQ 4 units ACHS [facility] Administration Protocol Insulin Detemir 10 units 04/14/19 14:18 04/19/19 22:53 Levemir Vial SQ 10 unit HS [facility] Administration Letrozole 2.5 mg 04/12/19 10:00 04/20/19 09:42 Femara - PO 2.5 mg DAILY [facility] Administration Levothyroxine Sodium 112 mcg 04/12/19 07:00 04/20/19 06:38 Synthroid - PO 112 mcg DAILY@0700 [facility] Administration Multivitamins/Minerals/Vitamin C 1 tab 04/12/19 10:00 04/20/19 09:40 Tab-A-Vit - PO 1 tab DAILY [facility] Administration Pregabalin 50 mg 04/18/19 22:00 04/20/19 09:40 Lyrica - PO 50 mg BID [facility] Administration CBC, BMP 04/20/19 12:44 04/20/19 06:00 ASSESSMENT/PLAN: 89 yo F PMH of HTN, HLD, Left breast cancer, Hypothyroidism, GERD, NIDDM and Multiple CVAs, recently admitted at [place] for bilateral LE cellulitis ( discharged 04/06/19) presenting with shortness of breath . 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 Thank you for this consultative opportunity. Visit type - Emergency Visit Emergency Visit: Yes ED Registration Date: 04/08/19 Care time: The patient presented to the Emergency Department on the above date and was hospitalized for further evaluation of their emergent condition. - New Patient This patient is new to me today: Yes Date on this admission: 04/21/19 - Critical Care Critical Care patient: No ATTENDING PHYSICIAN STATEMENT I saw and evaluated the patient. I reviewed the resident's note and discussed the case with the resident. I agree with the resident's findings and plan as documented. SUBJECTIVE: OBJECTIVE: ASSESSMENT AND PLAN:
[2019-04-20] MEDS: INSULIN (LEVEMIR) 100 UNITS/ML UNITS SQ SCH (23:32)
[2019-04-21] MEDS: INSULIN SLIDING SCALE (NOVOLOG) 1 VIAL SQ SCH ×4 (06:44→21:19)
[2019-04-21] MEDS: FUROSEMIDE 40 MG/4 ML INJECTABLE VIAL IVPUSH SCH ×2 (06:45→15:22)
[2019-04-21] MEDS: LEVOTHYROXINE NA 112 MCG TABLET (FP) PO SCH (06:46)
[2019-04-21] MEDS: hydrALAZINE HCL 10 MG TABLET PO SCH ×3 (06:46→21:22)
[2019-04-21 09:03] LABS: HEMATOCRIT 20.2 % (32.4-45.2); MCH 33.2 pg (25.7-33.7); MCHC 33.2 g/dl (32.0-36.0); MEAN CELL VOLUME 100.2 fl (80-96); MEAN PLT VOLUME 8.4 fl (7.5-11.1); PLATELET COUNT 280 K/MM3 (134-434); RBC 2.02 M/mm3 (3.60-5.2); RDW 17.8 % (11.6-15.6); WHITE BLOOD COUNT 20.9 K/mm3 (4.0-10.0)
[2019-04-21 09:25] LABS: HEMOGLOBIN 6.7 GM/dL (10.7-15.3)
[2019-04-21 10:12] LABS: ALBUMIN 2.7 g/dl (3.4-5.0); BILIRUBIN,TOTAL 0.2 mg/dL (0.2-1); CALCIUM 7.6 mg/dL (8.5-10.1); POTASSIUM 3.7 mmol/L (3.5-5.1); TOT PROT 6.2 g/dl (6.4-8.2)
[2019-04-21 10:30] LABS: BLOOD UREA NITROGEN 108.9 mg/dL (7-18)
[2019-04-21] MEDS ORDERED: PT OWN MED DRAWER 7, Y5N ONE (10:49)
--- NOTE | 2019-04-21 10:58 | PN ---
Progress Note, Physician - Current Medication List Current Medications: Active Medications Acetaminophen (Tylenol -) 650 mg PO Q6H PRN PRN Reason: PAIN Last Admin: 04/20/19 15:21 Dose: 650 mg Carvedilol (Coreg -) 25 mg PO BID [facility] Last Admin: 04/20/19 23:41 Dose: 25 mg Famotidine (Pepcid -) 20 mg PO DAILY [facility] Last Admin: 04/20/19 09:41 Dose: 20 mg Furosemide (Lasix Injection -) 40 mg IVPUSH BIDLASIX [facility] Last Admin: 04/21/19 06:45 Dose: 40 mg Hydralazine HCl (Apresoline -) 20 mg PO TID [facility] Last Admin: 04/21/19 06:46 Dose: 20 mg Insulin Aspart (Novolog Vial Sliding Scale -) 1 vial SQ ACHS [facility]; Protocol Last Admin: 04/21/19 06:44 Dose: 2 units Insulin Detemir (Levemir Vial) 10 units SQ HS [facility] Last Admin: 04/20/19 23:32 Dose: 10 unit Letrozole (Femara -) 2.5 mg PO DAILY [facility] Last Admin: 04/20/19 09:42 Dose: 2.5 mg Levothyroxine Sodium (Synthroid -) 112 mcg PO DAILY@0700 [facility] Last Admin: 04/21/19 06:46 Dose: 112 mcg Multivitamins/Minerals/Vitamin C (Tab-A-Vit -) 1 tab PO DAILY [facility] Last Admin: 04/20/19 09:40 Dose: 1 tab Pregabalin (Lyrica -) 50 mg PO BID [facility] Last Admin: 04/20/19 23:41 Dose: 50 mg - Objective Vital Signs: Vital Signs Temperature 99.2 F 04/21/19 10:46 Pulse Rate 85 04/21/19 10:46 Respiratory Rate 24 H 04/21/19 10:46 Blood Pressure 118/46 L 04/21/19 10:46 O2 Sat by Pulse Oximetry (%) 97 04/20/19 21:00 Labs: CBC, BMP 04/21/19 08:05 04/21/19 08:05 INR, PTT INR 1.01 (0.83-1.09) 04/08/19 22:30
[2019-04-21] MEDS: MULTIVITAMINS (DAILY MVI) TABLET (FP) PO SCH (11:00)
[2019-04-21] MEDS: FAMOTIDINE 20 MG TABLET PO SCH (11:00)
[2019-04-21] MEDS: PREGABALIN 50 MG CAPSULE PO SCH (11:01)
[2019-04-21] MEDS: LETROZOLE 2.5 MG TABLET (FP) PO SCH (11:01)
[2019-04-21] MEDS: CARVEDILOL 25 MG TABLET (FP) PO SCH ×2 (11:02→21:22)
[2019-04-21] MEDS: CEFTRIAXONE 1 GM in DEXTROSE 5%-WATER - 50 ML IVPB SCH (11:12)
--- NOTE | 2019-04-21 12:10 | PN ---
Progress Note (short form) - Note Progress Note: PULMONARY States breathing is improving. Reports intermittent tremors/shaking. No cough or chest pain. Vital Signs Period Temp Pulse Resp BP Sys/Hernandez Pulse Ox Last 24 Hr 97.9 F-99.2 F 74-96 18-24 118-128/42-57 97 Gen: NAD at rest Heart: RRR Lung: decreased breath sounds at the bases Abd: soft, nontender Ext: less edema CBC, BMP 04/21/19 08:05 Active Medications Acetaminophen (Tylenol -) 650 mg PO Q6H PRN PRN Reason: PAIN Last Admin: 04/20/19 15:21 Dose: 650 mg Carvedilol (Coreg -) 25 mg PO BID [facility] Last Admin: 04/21/19 11:02 Dose: Not Given Famotidine (Pepcid -) 20 mg PO DAILY [facility] Last Admin: 04/21/19 11:00 Dose: 20 mg Furosemide (Lasix Injection -) 40 mg IVPUSH BIDLASIX [facility] Last Admin: 04/21/19 06:45 Dose: 40 mg Hydralazine HCl (Apresoline -) 20 mg PO TID [facility] Last Admin: 04/21/19 06:46 Dose: 20 mg Insulin Aspart (Novolog Vial Sliding Scale -) 1 vial SQ [facility]; Protocol Last Admin: 04/21/19 11:53 Dose: 4 units Insulin Detemir (Levemir Vial) 10 units SQ HS [facility] Last Admin: 04/20/19 23:32 Dose: 10 unit Letrozole (Femara -) 2.5 mg PO DAILY [facility] Last Admin: 04/21/19 11:01 Dose: 2.5 mg Levothyroxine Sodium (Synthroid -) 112 mcg PO DAILY@0700 [facility] Last Admin: 04/21/19 06:46 Dose: 112 mcg Multivitamins/Minerals/Vitamin C (Tab-A-Vit -) 1 tab PO DAILY [facility] Last Admin: 04/21/19 11:00 Dose: 1 tab Pregabalin (Lyrica -) 25 mg PO BID [facility] A/P Acute on Chronic Diastolic Heart Failure Acute on Chronic Renal Failure Hyponatremia HTN DM Hyperlipidemia Hypothyroidism GERD h/o Breast Ca h/o CVA Anemia - continue lasix - monitor urine output, creatinine - daily weights - transfuse PRBC - monitor H/H - O2 to keep SpO2 >90% - monitor lytes - DVT prophylaxis
[2019-04-21 12:15] LABS: BASO % 0.8 % (0-2.0); EOS % 4.9 % (0-4.5); LYMPH % 8.2 % (8-40); MCH 32.6 pg (25.7-33.7); MCHC 32.4 g/dl (32.0-36.0); MEAN CELL VOLUME 100.7 fl (80-96); MEAN PLT VOLUME 8.4 fl (7.5-11.1); MONO % 15.2 % (3.8-10.2); NEUT % 70.9 % (42.8-82.8); PLATELET COUNT 261 K/MM3 (134-434); RBC 2.09 M/mm3 (3.60-5.2); RDW 17.8 % (11.6-15.6); WHITE BLOOD COUNT 19.2 K/mm3 (4.0-10.0)
[2019-04-21 12:28] LABS: HEMOGLOBIN 6.8 GM/dL (10.7-15.3)
[2019-04-21 12:33] LABS: MAGNESIUM 2.4 mg/dL (1.8-2.4); PHOSPHOROUS 7.3 mg/dL (2.5-4.9)
[2019-04-21 12:54] LABS: ANISOCYTOSIS 1+; MACROCYTOSIS 1+; PLATELET ESTIMATE NORMAL
--- NOTE | 2019-04-21 13:00 | PN ---
Physical Exam: SUBJECTIVE: Patient seen and examined. No acute events overnight. Patient says she is a little weaker this morning and complains of new hand tremors. Hgb this am 6.8. OBJECTIVE: Vital Signs Period Temp Pulse Resp BP Sys/Hernandez Pulse Ox Last 24 Hr 97.9 F-99.2 F 74-96 18-24 118-128/42-57 97 GENERAL: nad HEAD: Normal with no signs of trauma. EYES: PERRL, conjunctiva clear ENT: moist mucous membranes. NECK: supple. LUNGS: CTA b/l HEART: RRR ABDOMEN: Soft, nontender, nondistended, normoactive bowel sounds EXTREMITIES: b/l hand tremors, 2+ pulses, +edema b/l Laboratory Results - last 24 hr 04/20/19 04/20/19 04/20/19 12:44 13:05 13:45 WBC 20.8 H RBC 2.28 L Hgb 7.7 L Hct 23.1 L MCV 101.3 H MCH 33.7 MCHC 33.2 RDW 17.7 H Plt Count 322 MPV 8.4 Absolute Neuts (auto) 14.9 H Neutrophils % 71.7 Neutrophils % (Manual) 52.8 Band Neutrophils % 9.4 Lymphocytes % 8.4 Lymphocytes % (Manual) 17.0 D Monocytes % 13.3 H Monocytes % (Manual) 13 H Eosinophils % 5.4 H Eosinophils % (Manual) 3.8 Basophils % 1.2 Basophils % (Manual) 1.9 Myelocytes % (Man) 0 D Promyelocytes % (Man) 0 D Blast Cells % (Manual) 0 Nucleated RBC % 0 Metamyelocytes 0 D Hypochromia 0 Platelet Estimate Normal Polychromasia 2+ Poikilocytosis 1+ Anisocytosis 1+ Microcytosis 1+ Macrocytosis 0 Spherocytes 1+ Sodium Potassium Chloride Carbon Dioxide Anion Gap BUN Creatinine Est GFR (CKD-EPI)AfAm Est GFR (CKD-EPI)NonAf POC Glucometer 207 Random Glucose Calcium Phosphorus Magnesium Iron TIBC Iron Saturation Unsaturated IBC Ferritin Total Bilirubin AST ALT Alkaline Phosphatase Total Protein Albumin Vitamin B12 Serum Folate TSH Stool Occult Blood Negative Crossmatch 04/20/19 04/20/19 04/21/19 18:11 23:27 05:41 WBC RBC Hgb Hct MCV MCH MCHC RDW Plt Count MPV Absolute Neuts (auto) Neutrophils % Neutrophils % (Manual) Band Neutrophils % Lymphocytes % Lymphocytes % (Manual) Monocytes % Monocytes % (Manual) Eosinophils % Eosinophils % (Manual) Basophils % Basophils % (Manual) Myelocytes % (Man) Promyelocytes % (Man) Blast Cells % (Manual) Nucleated RBC % Metamyelocytes Hypochromia Platelet Estimate Polychromasia Poikilocytosis Anisocytosis Microcytosis Macrocytosis Spherocytes Sodium Potassium Chloride Carbon Dioxide Anion Gap BUN Creatinine Est GFR (CKD-EPI)AfAm Est GFR (CKD-EPI)NonAf POC Glucometer 258 307 155 Random Glucose Calcium Phosphorus Magnesium Iron TIBC Iron Saturation Unsaturated IBC Ferritin Total Bilirubin AST ALT Alkaline Phosphatase Total Protein Albumin Vitamin B12 Serum Folate TSH Stool Occult Blood Crossmatch 04/21/19 04/21/19 04/21/19 08:05 08:05 08:05 WBC 20.9 H RBC 2.02 L Hgb 6.7 L* Hct 20.2 L MCV 100.2 H MCH 33.2 MCHC 33.2 RDW 17.8 H Plt Count 280 MPV 8.4 Absolute Neuts (auto) Neutrophils % Neutrophils % (Manual) Band Neutrophils % Lymphocytes % Lymphocytes % (Manual) Monocytes % Monocytes % (Manual) Eosinophils % Eosinophils % (Manual) Basophils % Basophils % (Manual) Myelocytes % (Man) Promyelocytes % (Man) Blast Cells % (Manual) Nucleated RBC % Metamyelocytes Hypochromia Platelet Estimate Polychromasia Poikilocytosis Anisocytosis Microcytosis Macrocytosis Spherocytes Sodium 132 L Potassium 3.7 Chloride 94 L Carbon Dioxide 26 Anion Gap 12 BUN 108.9 H* Creatinine 3.0 H Est GFR (CKD-EPI)AfAm 15.33 Est GFR (CKD-EPI)NonAf 13.22 POC Glucometer Random Glucose 140 H Calcium 7.6 L Phosphorus 7.3 H Magnesium 2.4 Iron 25 L TIBC 287 Iron Saturation 8 L Unsaturated IBC 262 Ferritin 78.8 Total Bilirubin 0.2 AST 14 L ALT 15 Alkaline Phosphatase 111 Total Protein 6.2 L Albumin 2.7 L Vitamin B12 1234 H Serum Folate 31 H TSH 2.19 Stool Occult Blood Crossmatch 04/21/19 04/21/19 04/21/19 11:30 11:30 11:51 WBC 19.2 H RBC 2.09 L Hgb 6.8 L* Hct 21.0 L MCV 100.7 H MCH 32.6 MCHC 32.4 RDW 17.8 H Plt Count 261 MPV 8.4 Absolute Neuts (auto) 13.6 H Neutrophils % 70.9 Neutrophils % (Manual) Band Neutrophils % Lymphocytes % 8.2 Lymphocytes % (Manual) Monocytes % 15.2 H Monocytes % (Manual) Eosinophils % 4.9 H Eosinophils % (Manual) Basophils % 0.8 Basophils % (Manual) Myelocytes % (Man) Promyelocytes % (Man) Blast Cells % (Manual) Nucleated RBC % 0 Metamyelocytes Hypochromia Platelet Estimate Polychromasia Poikilocytosis Anisocytosis Microcytosis Macrocytosis Spherocytes Sodium Potassium Chloride Carbon Dioxide Anion Gap BUN Creatinine Est GFR (CKD-EPI)AfAm Est GFR (CKD-EPI)NonAf POC Glucometer 235 Random Glucose Calcium Phosphorus Magnesium Iron TIBC Iron Saturation Unsaturated IBC Ferritin Total Bilirubin AST ALT Alkaline Phosphatase Total Protein Albumin Vitamin B12 Serum Folate TSH Stool Occult Blood Crossmatch See Detail Active Medications Generic Name Dose Route Start Last Admin Trade Name Freq PRN Reason Stop Dose Admin Acetaminophen 650 mg 04/11/19 13:59 04/20/19 15:21 Tylenol - PO 650 mg Q6H PRN Administration PAIN Carvedilol 25 mg 04/11/19 22:00 04/21/19 11:02 Coreg - PO Not Given BID [facility] Famotidine 20 mg 04/12/19 10:00 04/21/19 11:00 Pepcid - PO 20 mg DAILY [facility] Administration Furosemide 40 mg 04/20/19 12:29 04/21/19 06:45 Lasix Injection - IVPUSH 40 mg BIDLASIX [facility] Administration Hydralazine HCl 20 mg 04/11/19 14:00 04/21/19 06:46 Apresoline - PO 20 mg TID [facility] Administration Insulin Aspart 1 vial 04/11/19 16:30 04/21/19 11:53 Novolog Vial Sliding Scale - SQ 4 units ACHS [facility] Administration Protocol Insulin Detemir 10 units 04/14/19 14:18 04/20/19 23:32 Levemir Vial SQ 10 unit HS [facility] Administration Letrozole 2.5 mg 04/12/19 10:00 04/21/19 11:01 Femara - PO 2.5 mg DAILY [facility] Administration Levothyroxine Sodium 112 mcg 04/12/19 07:00 04/21/19 06:46 Synthroid - PO 112 mcg DAILY@0700 [facility] Administration Multivitamins/Minerals/Vitamin C 1 tab 04/12/19 10:00 04/21/19 11:00 Tab-A-Vit - PO 1 tab DAILY [facility] Administration Pregabalin 25 mg 04/21/19 11:24 Lyrica - PO BID [facility] ASSESSMENT/PLAN: This is an 89 year old woman with a history of HTN, hyperlipidemia, type 2 DM, CVAs, hypothyroidism, GERD, breast cancer who presented to the ED with SOB. #Acute on chronic diastolic heart failure #MAURICE #Stage 4 CKD #HTN #DM2 #HLD #Cellulitis #Hypothyroidism #GERD #Hx CVA #Hx Breast CA #Macrocytic Anemia Plan: -Hgb 6.8 -Transfuse 1 U PRBC. Give lasix after transfusion. -Cont Lasix 40mg BID. Metolazone held for now due to worsening Cr. -no change in cr. remains at 3 -monitor i/os and daily weights -echo unremarkable -NA and fluid restriction -patient with chronic leukocytosis, was trending down, taken off abx for cellulitis, now rising again -restarted on abx per ID -monitor white count. -replete lytes as needed -decreased Lyrica to 25mg BID from 50mg -SSI, Levemir 10U HS -FU renal reccs -FU am labs -cardio eval appreciated -Heme consult -DVT ppx with SCDs. Patient with borderline anemia. low threshold for transfusion Visit type - Emergency Visit Emergency Visit: Yes ED Registration Date: 04/08/19 Care time: The patient presented to the Emergency Department on the above date and was hospitalized for further evaluation of their emergent condition. - New Patient This patient is new to me today: Yes Date on this admission: 04/21/19 - Critical Care Critical Care patient: No ATTENDING PHYSICIAN STATEMENT I saw and evaluated the patient. I reviewed the resident's note and discussed the case with the resident. I agree with the resident's findings and plan as documented. SUBJECTIVE: OBJECTIVE: ASSESSMENT AND PLAN:
--- NOTE | 2019-04-21 13:38 | PN ---
Progress Note, Physician History of Present Illness: Pt seen and examined at bedside. She feels that her breathing is comfortable. - Current Medication List Current Medications: Active Medications Acetaminophen (Tylenol -) 650 mg PO Q6H PRN PRN Reason: PAIN Last Admin: 04/20/19 15:21 Dose: 650 mg Carvedilol (Coreg -) 25 mg PO BID [facility] Last Admin: 04/21/19 11:02 Dose: Not Given Famotidine (Pepcid -) 20 mg PO DAILY [facility] Last Admin: 04/21/19 11:00 Dose: 20 mg Furosemide (Lasix Injection -) 40 mg IVPUSH BIDLASIX [facility] Last Admin: 04/21/19 06:45 Dose: 40 mg Hydralazine HCl (Apresoline -) 20 mg PO TID [facility] Last Admin: 04/21/19 06:46 Dose: 20 mg Insulin Aspart (Novolog Vial Sliding Scale -) 1 vial SQ [facility]; Protocol Last Admin: 04/21/19 11:53 Dose: 4 units Insulin Detemir (Levemir Vial) 10 units SQ HS [facility] Last Admin: 04/20/19 23:32 Dose: 10 unit Letrozole (Femara -) 2.5 mg PO DAILY [facility] Last Admin: 04/21/19 11:01 Dose: 2.5 mg Levothyroxine Sodium (Synthroid -) 112 mcg PO DAILY@0700 [facility] Last Admin: 04/21/19 06:46 Dose: 112 mcg Multivitamins/Minerals/Vitamin C (Tab-A-Vit -) 1 tab PO DAILY [facility] Last Admin: 04/21/19 11:00 Dose: 1 tab Pregabalin (Lyrica -) 25 mg PO BID [facility] - Objective Vital Signs: Vital Signs Temperature 99.2 F 04/21/19 10:46 Pulse Rate 85 04/21/19 10:46 Respiratory Rate 24 H 04/21/19 10:46 Blood Pressure 118/46 L 04/21/19 10:46 O2 Sat by Pulse Oximetry (%) 97 04/20/19 21:00 Constitutional: Yes: Calm Eyes: Yes: Conjunctiva Clear HENT: Yes: Atraumatic Cardiovascular: Yes: S1, S2 Respiratory: Yes: CTA Bilaterally Gastrointestinal: Yes: Soft Breast(s): Yes: WNL Extremities: Yes: WNL Edema: Yes Edema: LLE: 1+, RLE: 1+ Neurological: Yes: Oriented Psychiatric: Yes: Oriented Labs: CBC, BMP 04/21/19 11:30 04/21/19 08:05 INR, PTT INR 1.01 (0.83-1.09) 04/08/19 22:30 Assessment/Plan Current Medications Generic Name Dose Route Start Last Admin Trade Name Freq PRN Reason Stop Dose Admin Acetaminophen 650 mg 04/11/19 13:59 04/20/19 15:21 Tylenol - PO 650 mg Q6H PRN Administration PAIN Carvedilol 25 mg 04/11/19 22:00 04/21/19 11:02 Coreg - PO Not Given BID [facility] Famotidine 20 mg 04/12/19 10:00 04/21/19 11:00 Pepcid - PO 20 mg DAILY [facility] Administration Furosemide 40 mg 04/20/19 12:29 04/21/19 06:45 Lasix Injection - IVPUSH 40 mg BIDLASIX [facility] Administration Hydralazine HCl 20 mg 04/11/19 14:00 04/21/19 06:46 Apresoline - PO 20 mg TID [facility] Administration Insulin Aspart 1 vial 04/11/19 16:30 04/21/19 11:53 Novolog Vial Sliding Scale - SQ 4 units ACHS [facility] Administration Protocol Insulin Detemir 10 units 04/14/19 14:18 04/20/19 23:32 Levemir Vial SQ 10 unit HS [facility] Administration Letrozole 2.5 mg 04/12/19 10:00 04/21/19 11:01 Femara - PO 2.5 mg DAILY [facility] Administration Levothyroxine Sodium 112 mcg 04/12/19 07:00 04/21/19 06:46 Synthroid - PO 112 mcg DAILY@0700 [facility] Administration Multivitamins/Minerals/Vitamin C 1 tab 04/12/19 10:00 04/21/19 11:00 Tab-A-Vit - PO 1 tab DAILY [facility] Administration Pregabalin 25 mg 04/21/19 11:24 Lyrica - PO BID [facility] Impression 1. proteinuria 2. hypothyroid 3. HTN 4. DM 5. fluid overload 6. breast cancer 7. MAURICE 8. CKD Plan - cont current dose of lasix - transfuse prbc - hold off metolazone - losartan on hold - repeat labs in am - [address] Sequeira
--- NOTE | 2019-04-21 14:37 | PN ---
Teaching Attending Note Name of Resident: Low Noble ATTENDING PHYSICIAN STATEMENT I saw and evaluated the patient. I reviewed the resident's note and discussed the case with the resident. I agree with the resident's findings and plan as documented. SUBJECTIVE: Seen and examined at bedside, patient feels tremulous, weak and lethargic. OBJECTIVE: Vital Signs - 24 hr 04/20/19 04/20/19 04/20/19 18:00 21:00 22:00 Temperature 98.3 F 98.4 F Pulse Rate 96 H 81 Respiratory 20 20 Rate Blood Pressure 121/42 L 128/48 L O2 Sat by Pulse 97 Oximetry (%) 04/21/19 04/21/19 04/21/19 06:00 10:46 10:50 Temperature 98 F 99.2 F Pulse Rate 81 85 Respiratory 18 24 H Rate Blood Pressure 121/57 L 118/46 L O2 Sat by Pulse 96 Oximetry (%) PE: Constitutional: Yes: Well Nourished, No Distress, Calm, lethargic Cardiovascular: Yes: WNL, Regular Rate and Rhythm Respiratory: Yes: WNL, Regular, CTA Bilaterally Gastrointestinal: Yes: WNL, Normal Bowel Sounds, Soft, Abdomen, Obese Musculoskeletal: Yes: WNL Extremities: Yes: WNL Edema: Yes Edema: LLE: 1+, RLE: 1+ Current Medications Acetaminophen (Tylenol -) 650 mg PO Q6H PRN PRN Reason: PAIN Last Admin: 04/20/19 15:21 Dose: 650 mg Carvedilol (Coreg -) 25 mg PO BID [facility] Last Admin: 04/21/19 11:02 Dose: Not Given Famotidine (Pepcid -) 20 mg PO DAILY [facility] Last Admin: 04/21/19 11:00 Dose: 20 mg Furosemide (Lasix Injection -) 40 mg IVPUSH BIDLASIX [facility] Last Admin: 04/21/19 06:45 Dose: 40 mg Hydralazine HCl (Apresoline -) 20 mg PO TID [facility] Last Admin: 04/21/19 06:46 Dose: 20 mg Insulin Aspart (Novolog Vial Sliding Scale -) 1 vial SQ [facility]; Protocol Last Admin: 04/21/19 11:53 Dose: 4 units Insulin Detemir (Levemir Vial) 10 units SQ HS [facility] Last Admin: 04/20/19 23:32 Dose: 10 unit Letrozole (Femara -) 2.5 mg PO DAILY [facility] Last Admin: 04/21/19 11:01 Dose: 2.5 mg Levothyroxine Sodium (Synthroid -) 112 mcg PO DAILY@0700 [facility] Last Admin: 04/21/19 06:46 Dose: 112 mcg Multivitamins/Minerals/Vitamin C (Tab-A-Vit -) 1 tab PO DAILY [facility] Last Admin: 04/21/19 11:00 Dose: 1 tab Pregabalin (Lyrica -) 25 mg PO BID [facility] Laboratory Results - last 24 hr 04/20/19 04/20/19 04/20/19 12:44 13:45 18:11 WBC RBC Hgb Hct MCV MCH MCHC RDW Plt Count MPV Absolute Neuts (auto) Neutrophils % Neutrophils % (Manual) 52.8 Band Neutrophils % 9.4 Lymphocytes % Lymphocytes % (Manual) 17.0 D Monocytes % Monocytes % (Manual) 13 H Eosinophils % Eosinophils % (Manual) 3.8 Basophils % Basophils % (Manual) 1.9 Myelocytes % (Man) 0 D Promyelocytes % (Man) 0 D Blast Cells % (Manual) 0 Nucleated RBC % Metamyelocytes 0 D Hypochromia 0 Platelet Estimate Normal Platelet Comment Polychromasia 2+ Poikilocytosis 1+ Basophilic Stippling Anisocytosis 1+ Microcytosis 1+ Macrocytosis 0 Spherocytes 1+ Sodium Potassium Chloride Carbon Dioxide Anion Gap BUN Creatinine Est GFR (CKD-EPI)AfAm Est GFR (CKD-EPI)NonAf POC Glucometer 258 Random Glucose Calcium Phosphorus Magnesium Iron TIBC Iron Saturation Unsaturated IBC Ferritin Total Bilirubin AST ALT Alkaline Phosphatase Total Protein Albumin Vitamin B12 Serum Folate TSH Stool Occult Blood Negative Blood Type Antibody Screen Crossmatch 04/20/19 04/21/19 04/21/19 23:27 05:41 08:05 WBC 20.9 H RBC 2.02 L Hgb 6.7 L* Hct 20.2 L MCV 100.2 H MCH 33.2 MCHC 33.2 RDW 17.8 H Plt Count 280 MPV 8.4 Absolute Neuts (auto) Neutrophils % Neutrophils % (Manual) Band Neutrophils % Lymphocytes % Lymphocytes % (Manual) Monocytes % Monocytes % (Manual) Eosinophils % Eosinophils % (Manual) Basophils % Basophils % (Manual) Myelocytes % (Man) Promyelocytes % (Man) Blast Cells % (Manual) Nucleated RBC % Metamyelocytes Hypochromia Platelet Estimate Platelet Comment Polychromasia Poikilocytosis Basophilic Stippling Anisocytosis Microcytosis Macrocytosis Spherocytes Sodium Potassium Chloride Carbon Dioxide Anion Gap BUN Creatinine Est GFR (CKD-EPI)AfAm Est GFR (CKD-EPI)NonAf POC Glucometer 307 155 Random Glucose Calcium Phosphorus Magnesium Iron TIBC Iron Saturation Unsaturated IBC Ferritin Total Bilirubin AST ALT Alkaline Phosphatase Total Protein Albumin Vitamin B12 Serum Folate TSH Stool Occult Blood Blood Type Antibody Screen Crossmatch 04/21/19 04/21/19 04/21/19 08:05 08:05 11:30 WBC RBC Hgb Hct MCV MCH MCHC RDW Plt Count MPV Absolute Neuts (auto) Neutrophils % Neutrophils % (Manual) Band Neutrophils % Lymphocytes % Lymphocytes % (Manual) Monocytes % Monocytes % (Manual) Eosinophils % Eosinophils % (Manual) Basophils % Basophils % (Manual) Myelocytes % (Man) Promyelocytes % (Man) Blast Cells % (Manual) Nucleated RBC % Metamyelocytes Hypochromia Platelet Estimate Platelet Comment Polychromasia Poikilocytosis Basophilic Stippling Anisocytosis Microcytosis Macrocytosis Spherocytes Sodium 132 L Potassium 3.7 Chloride 94 L Carbon Dioxide 26 Anion Gap 12 BUN 108.9 H* Creatinine 3.0 H Est GFR (CKD-EPI)AfAm 15.33 Est GFR (CKD-EPI)NonAf 13.22 POC Glucometer Random Glucose 140 H Calcium 7.6 L Phosphorus 7.3 H Magnesium 2.4 Iron 25 L TIBC 287 Iron Saturation 8 L Unsaturated IBC 262 Ferritin 78.8 Total Bilirubin 0.2 AST 14 L ALT 15 Alkaline Phosphatase 111 Total Protein 6.2 L Albumin 2.7 L Vitamin B12 1234 H Serum Folate 31 H TSH 2.19 Stool Occult Blood Blood Type O NEGATIVE Antibody Screen Negative Crossmatch See Detail 04/21/19 04/21/19 11:30 11:51 WBC 19.2 H RBC 2.09 L Hgb 6.8 L* Hct 21.0 L MCV 100.7 H MCH 32.6 MCHC 32.4 RDW 17.8 H Plt Count 261 MPV 8.4 Absolute Neuts (auto) 13.6 H Neutrophils % 70.9 Neutrophils % (Manual) 63.1 Band Neutrophils % 7.8 Lymphocytes % 8.2 Lymphocytes % (Manual) 2.9 L D Monocytes % 15.2 H Monocytes % (Manual) 11 H Eosinophils % 4.9 H Eosinophils % (Manual) 6.8 H Basophils % 0.8 Basophils % (Manual) 5.8 H* D Myelocytes % (Man) 2 D Promyelocytes % (Man) 0 Blast Cells % (Manual) 0 Nucleated RBC % 0 Metamyelocytes 1 D Hypochromia 0 Platelet Estimate Normal Platelet Comment Present Polychromasia 1+ Poikilocytosis 0 Basophilic Stippling 1+ Anisocytosis 1+ Microcytosis 0 Macrocytosis 1+ Spherocytes Sodium Potassium Chloride Carbon Dioxide Anion Gap BUN Creatinine Est GFR (CKD-EPI)AfAm Est GFR (CKD-EPI)NonAf POC Glucometer 235 Random Glucose Calcium Phosphorus Magnesium Iron TIBC Iron Saturation Unsaturated IBC Ferritin Total Bilirubin AST ALT Alkaline Phosphatase Total Protein Albumin Vitamin B12 Serum Folate TSH Stool Occult Blood Blood Type Antibody Screen Crossmatch ASSESSMENT: 89 year old woman with a history of HTN, hyperlipidemia, type 2 DM, CVAs, hypothyroidism, GERD, breast cancer who presented to the ED with SOB. Acute on chronic diastolic heart failure Cellulitis MAURICE Macrocytic Anemia Stage 4 CKD HTN DM2 HLD Hypothyroidism GERD Hx CVA Hx Breast CA Plan: -transfuse 1 unit PRBCs -start on venofer -c/w iv lasix, dose decreased due to rising bun -decrease lyrica back to 25 mg BID, not tolerating higher dose -monitor i/os and daily weights -2decho normal LV function -NA and fluid restriction -chronic leukocytosis, was trending down, taken off abx for cellulitis and now rising again -replete lytes as needed -c/w current mngmt -cardio eval appreciated -cw DM mnmgt Problem List - Problems (1) Acute diastolic (congestive) heart failure Code(s): I50.31 - ACUTE DIASTOLIC (CONGESTIVE) HEART FAILURE (2) Acute kidney injury superimposed on CKD Code(s): N17.9 - ACUTE KIDNEY FAILURE, UNSPECIFIED; N18.9 - CHRONIC KIDNEY DISEASE, UNSPECIFIED (3) Anemia Code(s): D64.9 - ANEMIA, UNSPECIFIED Qualifiers: Anemia type: unspecified type Qualified Code(s): D64.9 - Anemia, unspecified (4) Bilateral leg edema Code(s): R60.0 - LOCALIZED EDEMA (5) Hypothyroid Code(s): E03.9 - HYPOTHYROIDISM, UNSPECIFIED Qualifiers: Hypothyroidism type: unspecified Qualified Code(s): E03.9 - Hypothyroidism , unspecified (6) Pulmonary vascular congestion Code(s): R09.89 - OTH SYMPTOMS AND SIGNS INVOLVING THE CIRC AND RESP SYSTEMS (7) Shortness of breath Code(s): R06.02 - SHORTNESS OF BREATH (8) Breast cancer Code(s): C50.919 - MALIGNANT NEOPLASM OF UNSP SITE OF UNSPECIFIED FEMALE BREAST (9) Diabetes Code(s): E11.9 - TYPE 2 DIABETES MELLITUS WITHOUT COMPLICATIONS Qualifiers: Diabetes mellitus type: type 2 (10) GERD (gastroesophageal reflux disease) Code(s): K21.9 - GASTRO-ESOPHAGEAL REFLUX DISEASE WITHOUT ESOPHAGITIS (11) HTN (hypertension) Code(s): I10 - ESSENTIAL (PRIMARY) HYPERTENSION (12) Lower extremity cellulitis Code(s): L03.119 - CELLULITIS OF UNSPECIFIED PART OF LIMB
--- NOTE | 2019-04-21 15:46 | PN ---
Progress Note (short form) - Note Progress Note: s: sob and le edema better today. no cp palps dizzy Current Medications Generic Name Dose Route Start Last Admin Trade Name Freq PRN Reason Stop Dose Admin Acetaminophen 650 mg 04/11/19 13:59 04/20/19 15:21 Tylenol - PO 650 mg Q6H PRN Administration PAIN Carvedilol 25 mg 04/11/19 22:00 04/21/19 11:02 Coreg - PO Not Given BID [facility] Famotidine 20 mg 04/12/19 10:00 04/21/19 11:00 Pepcid - PO 20 mg DAILY [facility] Administration Furosemide 40 mg 04/20/19 12:29 04/21/19 15:22 Lasix Injection - IVPUSH 40 mg BIDLASIX [facility] Administration Hydralazine HCl 20 mg 04/11/19 14:00 04/21/19 15:22 Apresoline - PO 20 mg TID [facility] Administration Insulin Aspart 1 vial 04/11/19 16:30 04/21/19 11:53 Novolog Vial Sliding Scale - SQ 4 units ACHS [facility] Administration Protocol Insulin Detemir 10 units 04/14/19 14:18 04/20/19 23:32 Levemir Vial SQ 10 unit HS [facility] Administration Letrozole 2.5 mg 04/12/19 10:00 04/21/19 11:01 Femara - PO 2.5 mg DAILY [facility] Administration Levothyroxine Sodium 112 mcg 04/12/19 07:00 04/21/19 06:46 Synthroid - PO 112 mcg DAILY@0700 [facility] Administration Multivitamins/Minerals/Vitamin C 1 tab 04/12/19 10:00 04/21/19 11:00 Tab-A-Vit - PO 1 tab DAILY [facility] Administration Pregabalin 25 mg 04/21/19 11:24 Lyrica - PO BID [facility] Vital Signs Period Temp Pulse Resp BP Sys/Hernandez Pulse Ox Last 24 Hr 98 F-99.2 F 81-96 18-24 118-128/42-57 96-97 Constitutional: Yes: Well Nourished, No Distress, Calm Cardiovascular: Yes: Regular Rate and Rhythm, JVD, S1, S2. No: Gallop, Murmur Respiratory: Yes: Regular, CTA Bilaterally. No: Accessory Muscle Use, Rales, Wheezes Extremities: No: Cold Edema: trace le edema bl Neurological: Yes: Alert, Oriented Psychiatric: No: Agitated CBC, BMP 04/21/19 11:30 04/21/19 08:05 Assessment/Plan EKG: sinus,nl intervals, no ischemic changes CXR: + congestive changes echo 03/2019 nl LV function, mild MR, mild TR, PASP at least 49 mmHg acute diastolic heart failure exacerbation: - recent echo nl LV function, mild pulm HTN - CT chest bilat effusions and vascular congestion pattern, with + flank subcutaneous edema -vol status improving. IV Lasix dose reduced due to rising bun/cr. Check BMP daily to closely f/u renal fx lower ext cellulitis: - manage per ID, primary HTN - cont current meds MAURICE on CKD: - recent creat 2.2-2.4 - renal following -Daily BMP while on IV lasix cp: -resolved -ecg unremarkable -trop neg x2 -monitor for now Anemia: -As per primary team, agree with prbcs
[2019-04-21] MEDS: ACETAMINOPHEN 325 MG TABLET (FP) PO PRN (16:57)
[2019-04-21] MEDS: INSULIN (LEVEMIR) 100 UNITS/ML UNITS SQ SCH (21:20)
[2019-04-21] MEDS: PREGABALIN 25 MG CAPSULE PO SCH ×2 (21:21→21:35)
[2019-04-21] MEDS ORDERED: FUROSEMIDE 40 MG/4 ML INJECTABLE VIAL IVPUSH ONE (23:00)
[2019-04-22 00:17] LABS: BASO % 0.8 % (0-2.0); EOS % 4.4 % (0-4.5); HEMATOCRIT 22.3 % (32.4-45.2); HEMOGLOBIN 7.4 GM/dL (10.7-15.3); LYMPH % 10.1 % (8-40); MCH 33.1 pg (25.7-33.7); MCHC 33.4 g/dl (32.0-36.0); MEAN CELL VOLUME 99.3 fl (80-96); MEAN PLT VOLUME 8.2 fl (7.5-11.1); MONO % 16.7 % (3.8-10.2); PLATELET COUNT 278 K/MM3 (134-434); RBC 2.24 M/mm3 (3.60-5.2); RDW 17.4 % (11.6-15.6); WHITE BLOOD COUNT 23.5 K/mm3 (4.0-10.0)
[2019-04-22] MEDS: hydrALAZINE HCL 10 MG TABLET PO SCH ×3 (06:12→21:17)
[2019-04-22] MEDS: LEVOTHYROXINE NA 112 MCG TABLET (FP) PO SCH (06:12)
[2019-04-22] MEDS: FUROSEMIDE 40 MG/4 ML INJECTABLE VIAL IVPUSH SCH (06:12)
[2019-04-22] MEDS: INSULIN SLIDING SCALE (NOVOLOG) 1 VIAL SQ SCH ×4 (06:15→21:17)
[2019-04-22] MEDS: ACETAMINOPHEN 325 MG TABLET (FP) PO PRN ×2 (06:20→18:40)
[2019-04-22] MEDS ORDERED: PT OWN MED DRAWER 7, Y5N ONE ×2 (08:31→08:32)
[2019-04-22 08:33] LABS: EOS % 4.5 % (0-4.5); HEMATOCRIT 23.4 % (32.4-45.2); HEMOGLOBIN 7.8 GM/dL (10.7-15.3); LYMPH % 7.1 % (8-40); MCHC 33.3 g/dl (32.0-36.0); MEAN CELL VOLUME 99.2 fl (80-96); MEAN PLT VOLUME 8.5 fl (7.5-11.1); MONO % 16.9 % (3.8-10.2); NEUT % 70.5 % (42.8-82.8); PLATELET COUNT 261 K/MM3 (134-434); RBC 2.36 M/mm3 (3.60-5.2); RDW 17.6 % (11.6-15.6); WHITE BLOOD COUNT 20.8 K/mm3 (4.0-10.0)
[2019-04-22 09:07] LABS: ALBUMIN 2.8 g/dl (3.4-5.0); BILIRUBIN,TOTAL 0.3 mg/dL (0.2-1); CALCIUM 7.9 mg/dL (8.5-10.1); CREATININE 3.1 mg/dL (0.55-1.3); POTASSIUM 3.3 mmol/L (3.5-5.1); TOT PROT 6.4 g/dl (6.4-8.2)
[2019-04-22] MEDS: PREGABALIN 25 MG CAPSULE PO SCH ×2 (10:14→21:17)
[2019-04-22] MEDS: MULTIVITAMINS (DAILY MVI) TABLET (FP) PO SCH (10:14)
[2019-04-22] MEDS: CARVEDILOL 25 MG TABLET (FP) PO SCH ×2 (10:15→21:17)
[2019-04-22] MEDS: LETROZOLE 2.5 MG TABLET (FP) PO SCH (10:15)
[2019-04-22] MEDS: FAMOTIDINE 20 MG TABLET PO SCH (10:15)
[2019-04-22 10:16] LABS: ANISOCYTOSIS 2+; MACROCYTOSIS 0; PLATELET ESTIMATE NORMAL
--- NOTE | 2019-04-22 10:44 | PN ---
Progress Note (short form) - Note Progress Note: PULMONARY c/o severe sciatica today down left leg. States breathing is improving. No cough or chest pain. Vital Signs Period Temp Pulse Resp BP Sys/Hernandez Pulse Ox Last 24 Hr 98.4 F-100.0 F 79-94 18-24 118-148/39-63 96-96 Gen: NAD at rest Heart: RRR Lung: decreased breath sounds at the bases Abd: soft, nontender Ext: less edema CBC, BMP 04/22/19 08:00 04/22/19 08:00 Active Medications Acetaminophen (Tylenol -) 650 mg PO Q6H PRN PRN Reason: PAIN Last Admin: 04/22/19 06:20 Dose: 650 mg Carvedilol (Coreg -) 25 mg PO BID [facility] Last Admin: 04/22/19 10:15 Dose: 25 mg Famotidine (Pepcid -) 20 mg PO DAILY [facility] Last Admin: 04/22/19 10:15 Dose: 20 mg Hydralazine HCl (Apresoline -) 20 mg PO TID [facility] Last Admin: 04/22/19 06:12 Dose: 20 mg Insulin Aspart (Novolog Vial Sliding Scale -) 1 vial SQ [facility]; Protocol Last Admin: 04/22/19 06:15 Dose: 4 units Insulin Detemir (Levemir Vial) 10 units SQ HS [facility] Last Admin: 04/21/19 21:20 Dose: 10 unit Letrozole (Femara -) 2.5 mg PO DAILY [facility] Last Admin: 04/22/19 10:15 Dose: 2.5 mg Levothyroxine Sodium (Synthroid -) 112 mcg PO DAILY@0700 [facility] Last Admin: 04/22/19 06:12 Dose: 112 mcg Multivitamins/Minerals/Vitamin C (Tab-A-Vit -) 1 tab PO DAILY [facility] Last Admin: 04/22/19 10:14 Dose: 1 tab Pregabalin (Lyrica -) 25 mg PO BID [facility] Last Admin: 04/22/19 10:14 Dose: 25 mg A/P Acute on Chronic Diastolic Heart Failure Acute on Chronic Renal Failure Hyponatremia HTN DM Hyperlipidemia Hypothyroidism GERD h/o Breast Ca h/o CVA Anemia - pt requesting neurology eval - continue lasix - monitor urine output, creatinine - daily weights - monitor H/H - O2 to keep SpO2 >90% - monitor lytes - DVT prophylaxis
--- NOTE | 2019-04-22 12:28 | PN ---
Physical Exam: SUBJECTIVE: Patient seen and examined. Denies sob, chest pain, nausea, vomiting. hand tremors improved. s/p 1 U PRBC. Responded appropriately from 6.8 to 7.8. Says she has severe sciatica pain on her LLE and requests a neurologist. OBJECTIVE: Vital Signs Period Temp Pulse Resp BP Sys/Hernandez Pulse Ox Last 24 Hr 98.4 F-100.0 F 79-94 18-24 119-148/39-63 96 GENERAL: nad HEAD: Normal with no signs of trauma. EYES: PERRL, conjunctiva clear ENT: moist mucous membranes. NECK: supple. LUNGS: decreased breath sounds HEART: RRR ABDOMEN: Soft, nontender, nondistended, normoactive bowel sounds EXTREMITIES: 2+ pulses, +edema b/l Laboratory Results - last 24 hr 04/21/19 04/21/19 04/21/19 08:05 11:30 11:30 WBC RBC Hgb 6.8 L* Hct MCV MCH MCHC RDW Plt Count MPV Absolute Neuts (auto) Total Counted Neutrophils % Neutrophils % (Manual) 63.1 Band Neutrophils % 7.8 Lymphocytes % Lymphocytes % (Manual) 2.9 L D Monocytes % Monocytes % (Manual) 11 H Eosinophils % Eosinophils % (Manual) 6.8 H Basophils % Basophils % (Manual) 5.8 H* D Myelocytes % (Man) 2 D Promyelocytes % (Man) 0 Blast Cells % (Manual) 0 Nucleated RBC % 0 Metamyelocytes 1 D Hypochromia 0 Platelet Estimate Normal Platelet Comment Present Polychromasia 1+ Poikilocytosis 0 Basophilic Stippling 1+ Anisocytosis 1+ Microcytosis 0 Macrocytosis 1+ Retic Count Sodium Potassium Chloride Carbon Dioxide Anion Gap BUN Creatinine Est GFR (CKD-EPI)AfAm Est GFR (CKD-EPI)NonAf POC Glucometer Random Glucose Calcium Phosphorus 7.3 H Magnesium 2.4 Total Bilirubin AST ALT Alkaline Phosphatase LD Total Total Protein Albumin Blood Type O NEGATIVE Antibody Screen Negative Crossmatch See Detail 04/21/19 04/21/19 04/21/19 17:18 21:16 23:50 WBC 23.5 H RBC 2.24 L Hgb 7.4 L Hct 22.3 L MCV 99.3 H MCH 33.1 MCHC 33.4 RDW 17.4 H Plt Count 278 MPV 8.2 Absolute Neuts (auto) 16.0 H Total Counted 100 Neutrophils % 68.0 Neutrophils % (Manual) 63.0 Band Neutrophils % 4.0 Lymphocytes % 10.1 D Lymphocytes % (Manual) 8.0 D Monocytes % 16.7 H Monocytes % (Manual) 1 L D Eosinophils % 4.4 Eosinophils % (Manual) 4.0 Basophils % 0.8 Basophils % (Manual) 3.0 H Myelocytes % (Man) 6 H Promyelocytes % (Man) Blast Cells % (Manual) Nucleated RBC % 0 Metamyelocytes 11 H D Hypochromia Platelet Estimate Platelet Comment Polychromasia Poikilocytosis Basophilic Stippling Anisocytosis Microcytosis Macrocytosis Retic Count Sodium Potassium Chloride Carbon Dioxide Anion Gap BUN Creatinine Est GFR (CKD-EPI)AfAm Est GFR (CKD-EPI)NonAf POC Glucometer 378 313 Random Glucose Calcium Phosphorus Magnesium Total Bilirubin AST ALT Alkaline Phosphatase LD Total Total Protein Albumin Blood Type Antibody Screen Crossmatch 04/22/19 04/22/19 04/22/19 06:06 08:00 08:00 WBC 20.8 H RBC 2.36 L Hgb 7.8 L Hct 23.4 L MCV 99.2 H MCH 33.0 MCHC 33.3 RDW 17.6 H Plt Count 261 MPV 8.5 Absolute Neuts (auto) 14.7 H Total Counted Neutrophils % 70.5 Neutrophils % (Manual) 62.5 Band Neutrophils % 0.0 Lymphocytes % 7.1 L D Lymphocytes % (Manual) 4.8 L D Monocytes % 16.9 H Monocytes % (Manual) 18 H D Eosinophils % 4.5 Eosinophils % (Manual) 4.8 H Basophils % 1.0 Basophils % (Manual) 1.9 Myelocytes % (Man) 2 Promyelocytes % (Man) 1 D Blast Cells % (Manual) 0 Nucleated RBC % 1 H Metamyelocytes 5 H D Hypochromia 0 Platelet Estimate Normal Platelet Comment Polychromasia 1+ Poikilocytosis 0 Basophilic Stippling 2+ Anisocytosis 2+ Microcytosis 2+ Macrocytosis 0 Retic Count Sodium 130 L Potassium 3.3 L Chloride 93 L Carbon Dioxide 27 Anion Gap 10 BUN 125.0 H* Creatinine 3.1 H Est GFR (CKD-EPI)AfAm 14.73 Est GFR (CKD-EPI)NonAf 12.71 POC Glucometer 206 Random Glucose 214 H Calcium 7.9 L Phosphorus Magnesium Total Bilirubin 0.3 AST 13 L ALT 15 Alkaline Phosphatase 113 LD Total 248 H Total Protein 6.4 Albumin 2.8 L Blood Type Antibody Screen Crossmatch 04/22/19 04/22/19 08:00 11:51 WBC RBC Hgb Hct MCV MCH MCHC RDW Plt Count MPV Absolute Neuts (auto) Total Counted Neutrophils % Neutrophils % (Manual) Band Neutrophils % Lymphocytes % Lymphocytes % (Manual) Monocytes % Monocytes % (Manual) Eosinophils % Eosinophils % (Manual) Basophils % Basophils % (Manual) Myelocytes % (Man) Promyelocytes % (Man) Blast Cells % (Manual) Nucleated RBC % Metamyelocytes Hypochromia Platelet Estimate Platelet Comment Polychromasia Poikilocytosis Basophilic Stippling Anisocytosis Microcytosis Macrocytosis Retic Count 4.90 H Sodium Potassium Chloride Carbon Dioxide Anion Gap BUN Creatinine Est GFR (CKD-EPI)AfAm Est GFR (CKD-EPI)NonAf POC Glucometer 302 Random Glucose Calcium Phosphorus Magnesium Total Bilirubin AST ALT Alkaline Phosphatase LD Total Total Protein Albumin Blood Type Antibody Screen Crossmatch Active Medications Generic Name Dose Route Start Last Admin Trade Name Freq PRN Reason Stop Dose Admin Acetaminophen 650 mg 04/11/19 13:59 04/22/19 06:20 Tylenol - PO 650 mg Q6H PRN Administration PAIN Carvedilol 25 mg 04/11/19 22:00 04/22/19 10:15 Coreg - PO 25 mg BID [facility] Administration Famotidine 20 mg 04/12/19 10:00 04/22/19 10:15 Pepcid - PO 20 mg DAILY [facility] Administration Hydralazine HCl 20 mg 04/11/19 14:00 04/22/19 06:12 Apresoline - PO 20 mg TID [facility] Administration Insulin Aspart 1 vial 04/11/19 16:30 04/22/19 11:53 Novolog Vial Sliding Scale - SQ 8 units ACHS [facility] Administration Protocol Insulin Detemir 10 units 04/14/19 14:18 04/21/19 21:20 Levemir Vial SQ 10 unit HS [facility] Administration Letrozole 2.5 mg 04/12/19 10:00 04/22/19 10:15 Femara - PO 2.5 mg DAILY [facility] Administration Levothyroxine Sodium 112 mcg 04/12/19 07:00 04/22/19 06:12 Synthroid - PO 112 mcg DAILY@0700 [facility] Administration Multivitamins/Minerals/Vitamin C 1 tab 04/12/19 10:00 04/22/19 10:14 Tab-A-Vit - PO 1 tab DAILY [facility] Administration Pregabalin 25 mg 04/21/19 11:24 04/22/19 10:14 Lyrica - PO 25 mg BID [facility] Administration ASSESSMENT/PLAN: This is an 89 year old woman with a history of HTN, hyperlipidemia, type 2 DM, CVAs, hypothyroidism, GERD, breast cancer who presented to the ED with SOB. #Acute on chronic diastolic heart failure #MAURICE #Stage 4 CKD #HTN #DM2 #LLE pain likely sciatica #HLD #Cellulitis #Hypothyroidism #GERD #Hx CVA #Hx Breast CA #Macrocytic Anemia Plan: -s/p 1 U PRBC with appropriate response to Hgb. 6.8 to 7.8 -Cont Lasix 40mg BID. Metolazone held for now due to worsening Cr. -no change in cr. remains at 3 -monitor i/os and daily weights -echo unremarkable -NA and fluid restriction -patient with chronic leukocytosis, was trending down, taken off abx for cellulitis -restarted on abx per ID -monitor white count. -replete lytes as needed -decreased Lyrica to 25mg BID from 50mg. cont for now -Neuro consult for sciatica pain -SSI, Levemir 10U HS -FU renal reccs -FU am labs -cardio eval appreciated -Heme consult -DVT ppx with SCDs. Visit type - Emergency Visit Emergency Visit: Yes ED Registration Date: 04/08/19 Care time: The patient presented to the Emergency Department on the above date and was hospitalized for further evaluation of their emergent condition. - New Patient This patient is new to me today: Yes Date on this admission: 04/22/19 - Critical Care Critical Care patient: No ATTENDING PHYSICIAN STATEMENT I saw and evaluated the patient. I reviewed the resident's note and discussed the case with the resident. I agree with the resident's findings and plan as documented. SUBJECTIVE: OBJECTIVE: ASSESSMENT AND PLAN:
--- NOTE | 2019-04-22 13:19 | PN ---
Physical Exam: SUBJECTIVE: Patient seen and examined compalin of constipation and psyctica pain breathing is better FISH , flow and cyto are pending OBJECTIVE: Vital Signs Period Temp Pulse Resp BP Sys/Hernandez Pulse Ox Last 24 Hr 98.4 F-100.0 F 79-94 18-24 119-148/39-63 96 GENERAL: Awake, alert, and fully oriented, in no acute distress.generalized fatigue HEAD: Normal with no signs of trauma. EYES: Pupils equal, round and reactive to light, extraocular movements intact, sclera anicteric, EARS, NOSE, THROAT:dry mucous membranes.no oral thrush or mucositis noted NECK: supple no lymphadenopathy LUNGS: bibasilar crackles HEART: Regular rate and rhythm, normal S1 and S2 without murmur, rub or gallop. ABDOMEN: Soft, diffuse tenderness , distended, normoactive bowel sounds, LOWER EXTREMITIES: 2+ pulses, warm, well-perfused. trace peripheral edema. B/L erythema with cellulitis NEUROLOGICAL: no focal deficit . Normal speech. PSYCHIATRIC: Cooperative. SKIN: Warm, dry, normal turgor, no breast mass palpated . surgery scar beneath left breast no lymph nodes enlargement Laboratory Results - last 24 hr 04/21/19 04/21/19 04/21/19 11:30 17:18 21:16 WBC RBC Hgb Hct MCV MCH MCHC RDW Plt Count MPV Absolute Neuts (auto) Total Counted Neutrophils % Neutrophils % (Manual) Band Neutrophils % Lymphocytes % Lymphocytes % (Manual) Monocytes % Monocytes % (Manual) Eosinophils % Eosinophils % (Manual) Basophils % Basophils % (Manual) Myelocytes % (Man) Promyelocytes % (Man) Blast Cells % (Manual) Nucleated RBC % Metamyelocytes Hypochromia Platelet Estimate Polychromasia Poikilocytosis Basophilic Stippling Anisocytosis Microcytosis Macrocytosis Retic Count Sodium Potassium Chloride Carbon Dioxide Anion Gap BUN Creatinine Est GFR (CKD-EPI)AfAm Est GFR (CKD-EPI)NonAf POC Glucometer 378 313 Random Glucose Calcium Total Bilirubin AST ALT Alkaline Phosphatase LD Total Total Protein Albumin Blood Type O NEGATIVE Antibody Screen Negative Crossmatch See Detail 04/21/19 04/22/19 04/22/19 23:50 06:06 08:00 WBC 23.5 H 20.8 H RBC 2.24 L 2.36 L Hgb 7.4 L 7.8 L Hct 22.3 L 23.4 L MCV 99.3 H 99.2 H MCH 33.1 33.0 MCHC 33.4 33.3 RDW 17.4 H 17.6 H Plt Count 278 261 MPV 8.2 8.5 Absolute Neuts (auto) 16.0 H 14.7 H Total Counted 100 Neutrophils % 68.0 70.5 Neutrophils % (Manual) 63.0 62.5 Band Neutrophils % 4.0 0.0 Lymphocytes % 10.1 D 7.1 L D Lymphocytes % (Manual) 8.0 D 4.8 L D Monocytes % 16.7 H 16.9 H Monocytes % (Manual) 1 L D 18 H D Eosinophils % 4.4 4.5 Eosinophils % (Manual) 4.0 4.8 H Basophils % 0.8 1.0 Basophils % (Manual) 3.0 H 1.9 Myelocytes % (Man) 6 H 2 Promyelocytes % (Man) 1 D Blast Cells % (Manual) 0 Nucleated RBC % 0 1 H Metamyelocytes 11 H D 5 H D Hypochromia 0 Platelet Estimate Normal Polychromasia 1+ Poikilocytosis 0 Basophilic Stippling 2+ Anisocytosis 2+ Microcytosis 2+ Macrocytosis 0 Retic Count Sodium Potassium Chloride Carbon Dioxide Anion Gap BUN Creatinine Est GFR (CKD-EPI)AfAm Est GFR (CKD-EPI)NonAf POC Glucometer 206 Random Glucose Calcium Total Bilirubin AST ALT Alkaline Phosphatase LD Total Total Protein Albumin Blood Type Antibody Screen Crossmatch 04/22/19 04/22/19 04/22/19 08:00 08:00 11:51 WBC RBC Hgb Hct MCV MCH MCHC RDW Plt Count MPV Absolute Neuts (auto) Total Counted Neutrophils % Neutrophils % (Manual) Band Neutrophils % Lymphocytes % Lymphocytes % (Manual) Monocytes % Monocytes % (Manual) Eosinophils % Eosinophils % (Manual) Basophils % Basophils % (Manual) Myelocytes % (Man) Promyelocytes % (Man) Blast Cells % (Manual) Nucleated RBC % Metamyelocytes Hypochromia Platelet Estimate Polychromasia Poikilocytosis Basophilic Stippling Anisocytosis Microcytosis Macrocytosis Retic Count 4.90 H Sodium 130 L Potassium 3.3 L Chloride 93 L Carbon Dioxide 27 Anion Gap 10 BUN 125.0 H* Creatinine 3.1 H Est GFR (CKD-EPI)AfAm 14.73 Est GFR (CKD-EPI)NonAf 12.71 POC Glucometer 302 Random Glucose 214 H Calcium 7.9 L Total Bilirubin 0.3 AST 13 L ALT 15 Alkaline Phosphatase 113 LD Total 248 H Total Protein 6.4 Albumin 2.8 L Blood Type Antibody Screen Crossmatch Active Medications Generic Name Dose Route Start Last Admin Trade Name Freq PRN Reason Stop Dose Admin Acetaminophen 650 mg 04/11/19 13:59 04/22/19 06:20 Tylenol - PO 650 mg Q6H PRN Administration PAIN Carvedilol 25 mg 04/11/19 22:00 04/22/19 10:15 Coreg - PO 25 mg BID AMRIT Administration Famotidine 20 mg 04/12/19 10:00 04/22/19 10:15 Pepcid - PO 20 mg DAILY [facility]RIT Administration Hydralazine HCl 20 mg 04/11/19 14:00 04/22/19 06:12 Apresoline - PO 20 mg TID [facility]IT Administration Insulin Aspart 1 vial 04/11/19 16:30 04/22/19 11:53 Novolog Vial Sliding Scale - SQ 8 units ACHS [facility]IT Administration Protocol Insulin Detemir 10 units 04/14/19 14:18 04/21/19 21:20 Levemir Vial SQ 10 unit HS [facility] Administration Letrozole 2.5 mg 04/12/19 10:00 04/22/19 10:15 Femara - PO 2.5 mg DAILY [facility] Administration Levothyroxine Sodium 112 mcg 04/12/19 07:00 04/22/19 06:12 Synthroid - PO 112 mcg DAILY@0700 [facility] Administration Multivitamins/Minerals/Vitamin C 1 tab 04/12/19 10:00 04/22/19 10:14 Tab-A-Vit - PO 1 tab DAILY [facility] Administration Pregabalin 25 mg 04/21/19 11:24 04/22/19 10:14 Lyrica - PO 25 mg BID [facility]IT Administration CBC, BMP 04/22/19 08:00 04/22/19 08:00 ASSESSMENT/PLAN: 89 yo F PMH of HTN, HLD, Left breast cancer, Hypothyroidism, GERD, NIDDM and Multiple CVAs, recently admitted at [place] for bilateral LE cellulitis ( discharged 04/06/19) presenting with shortness of breath . 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 Thank you for this consultative opportunity. Visit type - Emergency Visit Emergency Visit: Yes ED Registration Date: 04/08/19 Care time: The patient presented to the Emergency Department on the above date and was hospitalized for further evaluation of their emergent condition. - New Patient This patient is new to me today: No - Critical Care Critical Care patient: No ATTENDING PHYSICIAN STATEMENT I saw and evaluated the patient. I reviewed the resident's note and discussed the case with the resident. I agree with the resident's findings and plan as documented. SUBJECTIVE: OBJECTIVE: ASSESSMENT AND PLAN:
--- NOTE | 2019-04-22 13:28 | PN ---
Progress Note, Physician History of Present Illness: stable slightly better today - Current Medication List Current Medications: Active Medications Acetaminophen (Tylenol -) 650 mg PO Q6H PRN PRN Reason: PAIN Last Admin: 04/22/19 06:20 Dose: 650 mg Carvedilol (Coreg -) 25 mg PO BID [facility] Last Admin: 04/22/19 10:15 Dose: 25 mg Famotidine (Pepcid -) 20 mg PO DAILY [facility] Last Admin: 04/22/19 10:15 Dose: 20 mg Hydralazine HCl (Apresoline -) 20 mg PO TID [facility] Last Admin: 04/22/19 06:12 Dose: 20 mg Insulin Aspart (Novolog Vial Sliding Scale -) 1 vial SQ ACHS [facility]; Protocol Last Admin: 04/22/19 11:53 Dose: 8 units Insulin Detemir (Levemir Vial) 10 units SQ HS [facility] Last Admin: 04/21/19 21:20 Dose: 10 unit Letrozole (Femara -) 2.5 mg PO DAILY [facility] Last Admin: 04/22/19 10:15 Dose: 2.5 mg Levothyroxine Sodium (Synthroid -) 112 mcg PO DAILY@0700 [facility] Last Admin: 04/22/19 06:12 Dose: 112 mcg Multivitamins/Minerals/Vitamin C (Tab-A-Vit -) 1 tab PO DAILY [facility] Last Admin: 04/22/19 10:14 Dose: 1 tab Pregabalin (Lyrica -) 25 mg PO BID [facility] Last Admin: 04/22/19 10:14 Dose: 25 mg - Objective Vital Signs: Vital Signs Temperature 98.4 F 04/22/19 06:00 Pulse Rate 79 04/22/19 06:00 Respiratory Rate 18 04/22/19 06:00 Blood Pressure 133/45 L 04/22/19 06:00 O2 Sat by Pulse Oximetry (%) 96 04/21/19 21:00 Constitutional: Yes: Calm, Other (weak) Cardiovascular: Yes: S1, S2 Respiratory: Yes: Regular, CTA Bilaterally Gastrointestinal: Yes: Normal Bowel Sounds, Soft Extremities: Yes: Other Edema: LLE: 1+, RLE: 1+ Neurological: Yes: Alert, Oriented Psychiatric: Yes: Alert, Oriented Labs: CBC, BMP 04/22/19 08:00 04/22/19 08:00 INR, PTT INR 1.01 (0.83-1.09) 04/08/19 22:30 Assessment/Plan Problem List - Problems (1) Acute diastolic (congestive) heart failure Code(s): I50.31 - ACUTE DIASTOLIC (CONGESTIVE) HEART FAILURE (2) Acute kidney injury superimposed on CKD Code(s): N17.9 - ACUTE KIDNEY FAILURE, UNSPECIFIED; N18.9 - CHRONIC KIDNEY DISEASE, UNSPECIFIED (3) Anemia Code(s): D64.9 - ANEMIA, UNSPECIFIED Qualifiers: Anemia type: unspecified type Qualified Code(s): D64.9 - Anemia, unspecified (4) Bilateral leg edema Code(s): R60.0 - LOCALIZED EDEMA (5) Hypothyroid Code(s): E03.9 - HYPOTHYROIDISM, UNSPECIFIED Qualifiers: Hypothyroidism type: unspecified Qualified Code(s): E03.9 - Hypothyroidism , unspecified (6) Shortness of breath Code(s): R06.02 - SHORTNESS OF BREATH (7) Breast cancer, left Code(s): C50.912 - MALIGNANT NEOPLASM OF UNSPECIFIED SITE OF LEFT FEMALE BREAST (8) Diabetes Code(s): E11.9 - TYPE 2 DIABETES MELLITUS WITHOUT COMPLICATIONS Qualifiers: Diabetes mellitus type: type 2 (9) GERD (gastroesophageal reflux disease) Code(s): K21.9 - GASTRO-ESOPHAGEAL REFLUX DISEASE WITHOUT ESOPHAGITIS (10) HTN (hypertension) Code(s): I10 - ESSENTIAL (PRIMARY) HYPERTENSION (11) History of CVA with residual deficit Code(s): I69.30 - UNSPECIFIED SEQUELAE OF CEREBRAL INFARCTION (12) Lower extremity cellulitis Code(s): L03.119 - CELLULITIS OF UNSPECIFIED PART OF LIMB Assessment/Plan 89 y.o. female with PMH of DM, CKD, HTN, HLD, anemia, Lt breast CA s/p lumpectomy/RT, hypothyroidism, CVA, GBS, remote history of meningitis presents with complaints of worsening SOB and b/l LE edema that began several days [employer] after recent hospital discharge. Treated for b/l LE cellulitis with some improvement. Noted to have leukocytosis, LE erythema, worsening renal function and anemia b/l LE cellulitis Leukocytosis SOB b/l LE edema Acute diastolic HF Anemia Acute on chronic RF DM HTN Hx of Lt Breast CA Hypothyroidism Hx of CVAs plan continue current mgmt close watch physio rest as per the team
--- NOTE | 2019-04-22 14:02 | PN ---
Progress Note, Physician History of Present Illness: Pt seen and examined at bedside. She is awake and appears more comfortable. She says that her breathing is improved. - Current Medication List Current Medications: Active Medications Acetaminophen (Tylenol -) 650 mg PO Q6H PRN PRN Reason: PAIN Last Admin: 04/22/19 06:20 Dose: 650 mg Carvedilol (Coreg -) 25 mg PO BID [facility] Last Admin: 04/22/19 10:15 Dose: 25 mg Famotidine (Pepcid -) 20 mg PO DAILY [facility] Last Admin: 04/22/19 10:15 Dose: 20 mg Hydralazine HCl (Apresoline -) 20 mg PO TID [facility] Last Admin: 04/22/19 06:12 Dose: 20 mg Insulin Aspart (Novolog Vial Sliding Scale -) 1 vial SQ ACHS [facility]; Protocol Last Admin: 04/22/19 11:53 Dose: 8 units Insulin Detemir (Levemir Vial) 10 units SQ HS [facility] Last Admin: 04/21/19 21:20 Dose: 10 unit Letrozole (Femara -) 2.5 mg PO DAILY [facility] Last Admin: 04/22/19 10:15 Dose: 2.5 mg Levothyroxine Sodium (Synthroid -) 112 mcg PO DAILY@0700 [facility] Last Admin: 04/22/19 06:12 Dose: 112 mcg Multivitamins/Minerals/Vitamin C (Tab-A-Vit -) 1 tab PO DAILY [facility] Last Admin: 04/22/19 10:14 Dose: 1 tab Pregabalin (Lyrica -) 25 mg PO BID [facility] Last Admin: 04/22/19 10:14 Dose: 25 mg - Objective Vital Signs: Vital Signs Temperature 98.4 F 04/22/19 06:00 Pulse Rate 79 04/22/19 06:00 Respiratory Rate 18 04/22/19 09:00 Blood Pressure 133/45 L 04/22/19 06:00 O2 Sat by Pulse Oximetry (%) 96 04/22/19 09:00 Constitutional: Yes: Calm Eyes: Yes: Conjunctiva Clear HENT: Yes: Atraumatic Neck: Yes: Supple Cardiovascular: Yes: S1, S2 Respiratory: Yes: CTA Bilaterally Gastrointestinal: Yes: Normal Bowel Sounds, Soft Genitourinary: Yes: WNL Musculoskeletal: Yes: WNL Edema: Yes Edema: LLE: 1+, RLE: 1+ Neurological: Yes: Oriented Psychiatric: Yes: Oriented Labs: CBC, BMP 04/22/19 08:00 04/22/19 08:00 INR, PTT INR 1.01 (0.83-1.09) 04/08/19 22:30 Assessment/Plan Current Medications Generic Name Dose Route Start Last Admin Trade Name Freq PRN Reason Stop Dose Admin Acetaminophen 650 mg 04/11/19 13:59 04/22/19 06:20 Tylenol - PO 650 mg Q6H PRN Administration PAIN Carvedilol 25 mg 04/11/19 22:00 04/22/19 10:15 Coreg - PO 25 mg BID [facility] Administration Famotidine 20 mg 04/12/19 10:00 04/22/19 10:15 Pepcid - PO 20 mg DAILY [facility] Administration Hydralazine HCl 20 mg 04/11/19 14:00 04/22/19 06:12 Apresoline - PO 20 mg TID [facility] Administration Insulin Aspart 1 vial 04/11/19 16:30 04/22/19 11:53 Novolog Vial Sliding Scale - SQ 8 units ACHS [facility] Administration Protocol Insulin Detemir 10 units 04/14/19 14:18 04/21/19 21:20 Levemir Vial SQ 10 unit HS [facility] Administration Letrozole 2.5 mg 04/12/19 10:00 04/22/19 10:15 Femara - PO 2.5 mg DAILY [facility] Administration Levothyroxine Sodium 112 mcg 04/12/19 07:00 04/22/19 06:12 Synthroid - PO 112 mcg DAILY@0700 [facility] Administration Multivitamins/Minerals/Vitamin C 1 tab 04/12/19 10:00 04/22/19 10:14 Tab-A-Vit - PO 1 tab DAILY [facility] Administration Pregabalin 25 mg 04/21/19 11:24 04/22/19 10:14 Lyrica - PO 25 mg BID [facility] Administration Impression 1. proteinuria 2. hypothyroid 3. HTN 4. DM 5. fluid overload 6. breast cancer 7. MAURICE 8. CKD Plan - renal function is worsening - will hold off diuretics for now - repeat labs in am - monitor hg - keep losartan on hold - [address] Sequeira
--- NOTE | 2019-04-22 15:34 | PN ---
Teaching Attending Note Name of Resident: Low Noble ATTENDING PHYSICIAN STATEMENT I saw and evaluated the patient. I reviewed the resident's note and discussed the case with the resident. I agree with the resident's findings and plan as documented. SUBJECTIVE: Seen and examined at bedside. Patient complaining of left sciatic pain. Breathing better. OBJECTIVE: Vital Signs - 24 hr 04/21/19 04/21/19 04/21/19 16:10 16:45 17:00 Temperature 100.0 F H 100.0 F H Pulse Rate 90 Respiratory 22 H Rate Blood Pressure 133/39 L O2 Sat by Pulse Oximetry (%) 04/21/19 04/21/19 04/21/19 17:25 17:50 21:00 Temperature 99.6 F 99.7 F H Pulse Rate 88 88 Respiratory 18 18 Rate Blood Pressure 146/48 L 148/57 L O2 Sat by Pulse 96 Oximetry (%) 04/21/19 04/22/19 04/22/19 22:00 06:00 09:00 Temperature 99.5 F 98.4 F Pulse Rate 94 H 79 Respiratory 18 18 18 Rate Blood Pressure 119/42 L 133/45 L O2 Sat by Pulse 96 Oximetry (%) PE: Constitutional: Yes: Well Nourished, No Distress, Calm Cardiovascular: Yes: WNL, Regular Rate and Rhythm Respiratory: decreased bs bilateral bases Gastrointestinal: Yes: WNL, Normal Bowel Sounds, Soft, Abdomen, Obese Musculoskeletal: Yes: WNL Extremities: Yes: WNL Edema: Yes Edema: LLE: 1+, RLE: 1+ Current Medications Acetaminophen (Tylenol -) 650 mg PO Q6H PRN PRN Reason: PAIN Last Admin: 04/22/19 06:20 Dose: 650 mg Carvedilol (Coreg -) 25 mg PO BID [facility] Last Admin: 04/22/19 10:15 Dose: 25 mg Famotidine (Pepcid -) 20 mg PO DAILY [facility] Last Admin: 04/22/19 10:15 Dose: 20 mg Hydralazine HCl (Apresoline -) 20 mg PO TID [facility] Last Admin: 04/22/19 15:11 Dose: 20 mg Insulin Aspart (Novolog Vial Sliding Scale -) 1 vial SQ [facility]; Protocol Last Admin: 04/22/19 11:53 Dose: 8 units Insulin Detemir (Levemir Vial) 10 units SQ HS [facility] Last Admin: 04/21/19 21:20 Dose: 10 unit Letrozole (Femara -) 2.5 mg PO DAILY [facility] Last Admin: 04/22/19 10:15 Dose: 2.5 mg Levothyroxine Sodium (Synthroid -) 112 mcg PO DAILY@0700 [facility] Last Admin: 04/22/19 06:12 Dose: 112 mcg Multivitamins/Minerals/Vitamin C (Tab-A-Vit -) 1 tab PO DAILY [facility] Last Admin: 04/22/19 10:14 Dose: 1 tab Pregabalin (Lyrica -) 25 mg PO BID [facility] Last Admin: 04/22/19 10:14 Dose: 25 mg Laboratory Results - last 24 hr 04/21/19 04/21/19 04/21/19 11:30 17:18 21:16 WBC RBC Hgb Hct MCV MCH MCHC RDW Plt Count MPV Absolute Neuts (auto) Total Counted Neutrophils % Neutrophils % (Manual) Band Neutrophils % Lymphocytes % Lymphocytes % (Manual) Monocytes % Monocytes % (Manual) Eosinophils % Eosinophils % (Manual) Basophils % Basophils % (Manual) Myelocytes % (Man) Promyelocytes % (Man) Blast Cells % (Manual) Nucleated RBC % Metamyelocytes Hypochromia Platelet Estimate Polychromasia Poikilocytosis Basophilic Stippling Anisocytosis Microcytosis Macrocytosis Retic Count Sodium Potassium Chloride Carbon Dioxide Anion Gap BUN Creatinine Est GFR (CKD-EPI)AfAm Est GFR (CKD-EPI)NonAf POC Glucometer 378 313 Random Glucose Calcium Total Bilirubin AST ALT Alkaline Phosphatase LD Total Total Protein Albumin Blood Type O NEGATIVE Antibody Screen Negative Crossmatch See Detail 04/21/19 04/22/19 04/22/19 23:50 06:06 08:00 WBC 23.5 H 20.8 H RBC 2.24 L 2.36 L Hgb 7.4 L 7.8 L Hct 22.3 L 23.4 L MCV 99.3 H 99.2 H MCH 33.1 33.0 MCHC 33.4 33.3 RDW 17.4 H 17.6 H Plt Count 278 261 MPV 8.2 8.5 Absolute Neuts (auto) 16.0 H 14.7 H Total Counted 100 Neutrophils % 68.0 70.5 Neutrophils % (Manual) 63.0 62.5 Band Neutrophils % 4.0 0.0 Lymphocytes % 10.1 D 7.1 L D Lymphocytes % (Manual) 8.0 D 4.8 L D Monocytes % 16.7 H 16.9 H Monocytes % (Manual) 1 L D 18 H D Eosinophils % 4.4 4.5 Eosinophils % (Manual) 4.0 4.8 H Basophils % 0.8 1.0 Basophils % (Manual) 3.0 H 1.9 Myelocytes % (Man) 6 H 2 Promyelocytes % (Man) 1 D Blast Cells % (Manual) 0 Nucleated RBC % 0 1 H Metamyelocytes 11 H D 5 H D Hypochromia 0 Platelet Estimate Normal Polychromasia 1+ Poikilocytosis 0 Basophilic Stippling 2+ Anisocytosis 2+ Microcytosis 2+ Macrocytosis 0 Retic Count Sodium Potassium Chloride Carbon Dioxide Anion Gap BUN Creatinine Est GFR (CKD-EPI)AfAm Est GFR (CKD-EPI)NonAf POC Glucometer 206 Random Glucose Calcium Total Bilirubin AST ALT Alkaline Phosphatase LD Total Total Protein Albumin Blood Type Antibody Screen Crossmatch 04/22/19 04/22/19 04/22/19 08:00 08:00 11:51 WBC RBC Hgb Hct MCV MCH MCHC RDW Plt Count MPV Absolute Neuts (auto) Total Counted Neutrophils % Neutrophils % (Manual) Band Neutrophils % Lymphocytes % Lymphocytes % (Manual) Monocytes % Monocytes % (Manual) Eosinophils % Eosinophils % (Manual) Basophils % Basophils % (Manual) Myelocytes % (Man) Promyelocytes % (Man) Blast Cells % (Manual) Nucleated RBC % Metamyelocytes Hypochromia Platelet Estimate Polychromasia Poikilocytosis Basophilic Stippling Anisocytosis Microcytosis Macrocytosis Retic Count 4.90 H Sodium 130 L Potassium 3.3 L Chloride 93 L Carbon Dioxide 27 Anion Gap 10 BUN 125.0 H* Creatinine 3.1 H Est GFR (CKD-EPI)AfAm 14.73 Est GFR (CKD-EPI)NonAf 12.71 POC Glucometer 302 Random Glucose 214 H Calcium 7.9 L Total Bilirubin 0.3 AST 13 L ALT 15 Alkaline Phosphatase 113 LD Total 248 H Total Protein 6.4 Albumin 2.8 L Blood Type Antibody Screen Crossmatch ASSESSMENT: 89 year old woman with a history of HTN, hyperlipidemia, type 2 DM, CVAs, hypothyroidism, GERD, breast cancer who presented to the ED with SOB. Acute on chronic diastolic heart failure Cellulitis MAURICE Macrocytic Anemia Stage 4 CKD HTN DM2 HLD Hypothyroidism GERD Hx CVA Hx Breast CA Plan: -h/h improved s/p 1 unit prbcs, cw venofer -macroystosis being worked up, flow cytometry ordered, heme following -creatinine worsening, hold diuretics -decreased lyrica back to 25 mg BID, shaking stopped -monitor i/o's and daily weights -2decho normal LV function -NA and fluid restriction -chronic leukocytosis, off abx -replete lytes as needed -c/w current mngmt -cardio/nephro eval -cw DM mnmgt -PT eval NEEDS TO GET OUT OF BED Problem List - Problems (1) Acute diastolic (congestive) heart failure Code(s): I50.31 - ACUTE DIASTOLIC (CONGESTIVE) HEART FAILURE (2) Acute kidney injury superimposed on CKD Code(s): N17.9 - ACUTE KIDNEY FAILURE, UNSPECIFIED; N18.9 - CHRONIC KIDNEY DISEASE, UNSPECIFIED (3) Anemia Code(s): D64.9 - ANEMIA, UNSPECIFIED Qualifiers: Anemia type: unspecified type Qualified Code(s): D64.9 - Anemia, unspecified (4) Bilateral leg edema Code(s): R60.0 - LOCALIZED EDEMA (5) Hypothyroid Code(s): E03.9 - HYPOTHYROIDISM, UNSPECIFIED Qualifiers: Hypothyroidism type: unspecified Qualified Code(s): E03.9 - Hypothyroidism , unspecified (6) Pulmonary vascular congestion Code(s): R09.89 - OTH SYMPTOMS AND SIGNS INVOLVING THE CIRC AND RESP SYSTEMS (7) Shortness of breath Code(s): R06.02 - SHORTNESS OF BREATH (8) Breast cancer Code(s): C50.919 - MALIGNANT NEOPLASM OF UNSP SITE OF UNSPECIFIED FEMALE BREAST (9) Diabetes Code(s): E11.9 - TYPE 2 DIABETES MELLITUS WITHOUT COMPLICATIONS Qualifiers: Diabetes mellitus type: type 2 (10) GERD (gastroesophageal reflux disease) Code(s): K21.9 - GASTRO-ESOPHAGEAL REFLUX DISEASE WITHOUT ESOPHAGITIS (11) HTN (hypertension) Code(s): I10 - ESSENTIAL (PRIMARY) HYPERTENSION (12) Lower extremity cellulitis Code(s): L03.119 - CELLULITIS OF UNSPECIFIED PART OF LIMB
--- NOTE | 2019-04-22 16:25 | PN ---
Progress Note (short form) - Note Progress Note: s: no chest pain, palps, dizziness, dyspnea Current Medications Acetaminophen (Tylenol -) 650 mg PO Q6H PRN PRN Reason: PAIN Last Admin: 04/22/19 06:20 Dose: 650 mg Carvedilol (Coreg -) 25 mg PO BID [facility] Last Admin: 04/22/19 10:15 Dose: 25 mg Famotidine (Pepcid -) 20 mg PO DAILY [facility] Last Admin: 04/22/19 10:15 Dose: 20 mg Hydralazine HCl (Apresoline -) 20 mg PO TID [facility] Last Admin: 04/22/19 15:11 Dose: 20 mg Insulin Aspart (Novolog Vial Sliding Scale -) 1 vial SQ ACHS [facility]; Protocol Last Admin: 04/22/19 11:53 Dose: 8 units Insulin Detemir (Levemir Vial) 10 units SQ HS [facility] Last Admin: 04/21/19 21:20 Dose: 10 unit Letrozole (Femara -) 2.5 mg PO DAILY [facility] Last Admin: 04/22/19 10:15 Dose: 2.5 mg Levothyroxine Sodium (Synthroid -) 112 mcg PO DAILY@0700 [facility] Last Admin: 04/22/19 06:12 Dose: 112 mcg Multivitamins/Minerals/Vitamin C (Tab-A-Vit -) 1 tab PO DAILY [facility] Last Admin: 04/22/19 10:14 Dose: 1 tab Pregabalin (Lyrica -) 25 mg PO BID [facility] Last Admin: 04/22/19 10:14 Dose: 25 mg Vital Signs Period Temp Pulse Resp BP Sys/Hernandez Pulse Ox Last 24 Hr 98.0 F-100.0 F 69-94 18-22 119-148/39-57 96-96 Constitutional: Yes: Well Nourished, No Distress, Calm Cardiovascular: Yes: Regular Rate and Rhythm, JVD, S1, S2. No: Gallop, Murmur Respiratory: Yes: Regular, CTA Bilaterally. No: Accessory Muscle Use, Rales, Wheezes Extremities: No: Cold Edema: trace le edema bl Neurological: Yes: Alert, Oriented Psychiatric: No: Agitated Assessment/Plan EKG: sinus,nl intervals, no ischemic changes CXR: + congestive changes echo 03/2019 nl LV function, mild MR, mild TR, PASP at least 49 mmHg acute diastolic heart failure exacerbation: - recent echo nl LV function, mild pulm HTN - CT chest bilat effusions and vascular congestion pattern, with + flank subcutaneous edema - vol status improving, wt down. IV Lasix dose reduced due to rising bun/cr. Check BMP daily to closely f/u renal fx lower ext cellulitis: - manage per ID, primary HTN - cont current meds MAURICE on CKD: - recent creat 2.2-2.4 - renal following -Daily BMP while on IV lasix cp: -resolved -ecg unremarkable -trop neg x2 -monitor for now Anemia: -As per primary team, agree with prbcs
[2019-04-22] MEDS ORDERED: INSULIN (NOVOLOG) ASPART 100 UNITS/ML 10ML VIAL ONE (18:39)
--- NOTE | 2019-04-22 19:23 | PN ---
Teaching Attending Note Name of Resident: Shahzad Kumar ATTENDING PHYSICIAN STATEMENT I saw and evaluated the patient. I reviewed the resident's note and discussed the case with the resident. I agree with the resident's findings and plan as documented. SUBJECTIVE: Pt feels better, mentioned leg smaller after diuresis. OBJECTIVE: Last Vital Signs Temp Pulse Resp BP Pulse Ox 98.0 F 69 18 122/55 L 96 04/22/19 14:00 04/22/19 14:00 04/22/19 14:00 04/22/19 14:00 04/22/19 09:00 General: NAD HEENT: MMM CVS: S1, S2 Abdomen: Soft, NT, ND Extremities: + Erythema L. Trace edema Neuro: Moves all extremities Psych: Conversant, Appropriate. 04/22/19 08:00 04/22/19 08:00 Current Medications Acetaminophen (Tylenol -) 650 mg PO Q6H PRN PRN Reason: PAIN Last Admin: 04/22/19 18:40 Dose: 650 mg Carvedilol (Coreg -) 25 mg PO BID [facility] Last Admin: 04/22/19 10:15 Dose: 25 mg Famotidine (Pepcid -) 20 mg PO DAILY [facility] Last Admin: 04/22/19 10:15 Dose: 20 mg Hydralazine HCl (Apresoline -) 20 mg PO TID [facility] Last Admin: 04/22/19 15:11 Dose: 20 mg Insulin Aspart (Novolog Vial Sliding Scale -) 1 vial SQ [facility]; Protocol Last Admin: 04/22/19 17:46 Dose: 4 units Insulin Detemir (Levemir Vial) [address] [facility] Last Admin: 04/21/19 21:20 Dose: 10 unit Letrozole (Femara -) 2.5 mg PO DAILY [facility] Last Admin: 04/22/19 10:15 Dose: 2.5 mg Levothyroxine Sodium (Synthroid -) 112 mcg PO DAILY@0700 [facility] Last Admin: 04/22/19 06:12 Dose: 112 mcg Multivitamins/Minerals/Vitamin C (Tab-A-Vit -) 1 tab PO DAILY [facility] Last Admin: 04/22/19 10:14 Dose: 1 tab Pregabalin (Lyrica -) 25 mg PO BID [facility] Last Admin: 04/22/19 10:14 Dose: 25 mg ASSESSMENT/PLAN: 89 y/o lady PMH of HTN, HLD, Left breast cancer, Hypothyroidism, GERD, NIDDM and Multiple CVAs, recently admitted at [place] for bilateral LE cellulitis (discharged 04/06/19) presenting with shortness of breath. Hematology consulted for anemia. Recommend: 1) Macrocytic anemia with leukocytosis, elevated monocytes. She did not receive chemotherapy for her prior breast cancer diagnosis, she mentioned only lumpectomy and radiation therapy. 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 She mentioned received procrit and was supposed to be seen/ treated again but did not go due to admission 2) Please obtain full records from Dr. Estrada's office to learn her diagnosis and to determine need for further investigations (bone marrow evaluation, etc) 3) Rest per Dr. Kumar's note 4) Thank you for this consultation
[2019-04-22] MEDS: INSULIN (LEVEMIR) 100 UNITS/ML UNITS SQ SCH (21:18)
[2019-04-23] MEDS: INSULIN SLIDING SCALE (NOVOLOG) 1 VIAL SQ SCH ×4 (06:47→22:09)
[2019-04-23] MEDS: LEVOTHYROXINE NA 112 MCG TABLET (FP) PO SCH (06:47)
[2019-04-23] MEDS: hydrALAZINE HCL 10 MG TABLET PO SCH ×3 (06:47→22:08)
--- NOTE | 2019-04-23 08:44 | PN ---
Progress Note (short form) - Note Progress Note: Neurology CHIEF COMPLAINT: shortness of breath PCP: Dr. Salinas HISTORY OF PRESENT ILLNESS: 89 yo F PMH of HTN, HLD, Left breast cancer, Hypothyroidism, GERD, NIDDM and Multiple CVAs, recently admitted at [facility] for bilateral LE cellulitis ( discharged 04/06/19) presented with shortness of breath on day of admission. pt stated that after she had dinner she became very short of breath and her granddaughter told her to come to the hospital. she stated that the last time she had a breathing problem she was in the hospital and it was after she finished eating. she stated it was short and improved with nasal oxygen. she stated she takes lasix 80 at home and is compliant with her medication. Consulted for severe sciatica pain on LLE. Per notes, she was already on Lyrica 50 mg twice a day but was complaining of shaking of her legs and her entire body. Per notes, she had rrequested reduction of the Lyrica and this was adjusted on the 25 mg twice a day. Now she feels suboptimal treatment of her neuropathyand had requested neurologist. In speaking with the patient, sheinformed me that during the daytime her symptoms are mmore than at nighttime. Therefore, I discussed adjusting her medication to 50 mg in the day but only 25 mg at nighttime. This should reduce her symptoms but also shaking sensation that she described. She discussed previously being on Cymbalta and seems that did not provide adequate relief. Recent Travel: denies PAST MEDICAL HISTORY: see HPI PAST SURGICAL HISTORY: Left breast lumpectomy (2015) Abdominal Hernia sx Family History: HTN Social History: Smoking:denies Alcohol:denies Drugs: denies REVIEW OF SYSTEMS CONSTITUTIONAL: Absent: fever, chills, diaphoresis, generalized weakness, malaise, loss of appetite, weight change HEENT: Absent: rhinorrhea, nasal congestion, throat pain, throat swelling, difficulty swallowing, mouth swelling, ear pain, eye pain, visual changes CARDIOVASCULAR: Present: peripheral edema Absent: chest pain, syncope, palpitations, irregular heart rate, lightheadedness RESPIRATORY: Present: shortness of breath, wheezing Absent: cough, dyspnea with exertion, orthopnea, stridor, hemoptysis GASTROINTESTINAL: Absent: abdominal pain, abdominal distension, nausea, vomiting, diarrhea, constipation, melena, hematochezia GENITOURINARY: Present: frequency Absent: dysuria, frequency, urgency, hesitancy, hematuria, flank pain, genital pain MUSCULOSKELETAL: Absent: myalgia, arthralgia, joint swelling, back pain, neck pain SKIN: Absent: rash, itching, pallor HEMATOLOGIC/IMMUNOLOGIC: Absent: easy bleeding, easy bruising, lymphadenopathy, frequent infections ENDOCRINE: Absent: unexplained weight gain, unexplained weight loss, heat intolerance, cold intolerance NEUROLOGIC: Absent: headache, focal weakness or paresthesias, dizziness, unsteady gait, seizure, mental status changes, bladder or bowel incontinence PSYCHIATRIC: Absent: anxiety, depression, suicidal or homicidal ideation, hallucinations. Allergies NSAIDS (Non-Steroidal Anti-Inflamma Allergy (Severe, Verified 04/08/19 22:55) Difficulty Breathing ibuprofen Allergy (Intermediate, Verified 04/08/19 22:55) Rash meloxicam [From Mobic] Allergy (Intermediate, Verified 04/08/19 22:55) Rash all to all n-saids ? except Asprin rosiglitazone maleate [From Avandia] Allergy (Verified 04/08/19 22:55) albuterol Adverse Reaction (Intermediate, Verified 04/08/19 22:55) Elevated Blood Pressure ELEVATED SUGAR/ELEVATED TEMP epinephrine Adverse Reaction (Intermediate, Verified 04/08/19 22:55) Elevated Blood Pressure ELEVATED SUGAR/TEMP oxycodone HCl [From Percodan] Adverse Reaction (Intermediate, Verified 04/08/19 22:55) Elevated Blood Pressure ELEVATED SUGAR/ELEVATED TEMP oxycodone terephthalate [From Percodan] Adverse Reaction (Intermediate, Verified 04/08/19 22:55) Elevated Blood Pressure ELEVATED TEMP/SUGAR flu shot Adverse Reaction (Severe, Uncoded 04/08/19 22:55) [employer] HOME MEDICATIONS: Home Medications Medication Instructions Recorded Multivitamins [Multivit ([facility] 1 tab PO DAILY 06/10/14 Formulary)] Aspirin [ASA -] 81 mg PO DAILY #0 06/14/14 Amlodipine Besylate 5 mg PO DAILY 06/23/18 Calcium Carbonate/Vitamin D3 1 each PO DAILY 06/23/18 [Calcium 500-Vit D3 400 Tablet] Carvedilol [Coreg -] 25 mg PO BID 06/23/18 Cholecalciferol (Vitamin D3) 400 unit PO DAILY 06/23/18 [Vitamin D -] Famotidine [Pepcid] 40 mg PO DAILY 06/24/18 Letrozole 2.5 mg PO DAILY 06/24/18 Losartan Potassium 100 mg PO DAILY 06/24/18 Potassium Chloride [Klor-Con M20] 20 meq PO DAILY 06/24/18 Tramadol HCl 50 mg PO TID PRN 06/24/18 Insulin Glargine,Hum.rec.anlog 25 units SQ DAILY 03/26/19 [Lantus Solostar PEN -] Pregabalin [Lyrica] 25 mg PO BID 03/26/19 Doxycycline Hyclate 100 mg PO BID #14 tablet 04/06/19 Furosemide [Lasix -] 40 mg PO DAILY #30 tablet 04/06/19 Acetaminophen [Tylenol] 325 mg PO Q6H 04/09/19 Active Medications Acetaminophen (Tylenol -) 650 mg PO Q6H PRN PRN Reason: PAIN Last Admin: 04/22/19 18:40 Dose: 650 mg Carvedilol (Coreg -) 25 mg PO BID [facility] Last Admin: 04/22/19 21:17 Dose: 25 mg Famotidine (Pepcid -) 20 mg PO DAILY [facility] Last Admin: 04/22/19 10:15 Dose: 20 mg Hydralazine HCl (Apresoline -) 20 mg PO TID [facility] Last Admin: 04/23/19 06:47 Dose: 20 mg Insulin Aspart (Novolog Vial Sliding Scale -) 1 vial SQ [facility]; Protocol Last Admin: 04/23/19 06:47 Dose: 2 units Insulin Detemir (Levemir Vial) 10 units SQ [facility] Last Admin: 04/22/19 21:18 Dose: 10 unit Letrozole (Femara -) 2.5 mg PO DAILY [facility] Last Admin: 04/22/19 10:15 Dose: 2.5 mg Levothyroxine Sodium (Synthroid -) 112 mcg PO DAILY@0700 [facility] Last Admin: 04/23/19 06:47 Dose: 112 mcg Multivitamins/Minerals/Vitamin C (Tab-A-Vit -) 1 tab PO DAILY [facility] Last Admin: 04/22/19 10:14 Dose: 1 tab Pregabalin (Lyrica -) 25 mg PO BID [facility] Last Admin: 04/22/19 21:17 Dose: 25 mg PHYSICAL EXAMINATION Vital Signs Period Temp Pulse Resp BP Sys/Hernandez Pulse Ox Last 24 Hr 97.3 F-98.0 F 69-80 18-20 120-149/53-65 96-96 GENERAL: Awake, alert, and fully oriented, in no acute distress. pt has conversational dyspnea . on 4L NC HEAD: Normal with no signs of trauma. EYES: Pupils equal, round and reactive to light, L pupil larger than R , extraocular movements intact, EARS, NOSE, THROAT: Ears normal, nares patent, oropharynx clear without exudates. Moist mucous membranes. NECK: Normal range of motion, supple without lymphadenopathy, JVD, or masses. LUNGS: Breath sounds equal, b/l crackles throughout. No accessory muscle use. HEART: Regular rate and rhythm, normal S1 and S2 without murmur, rub or gallop. ABDOMEN: Soft, tender to RUQ, distended, normoactive bowel sounds MUSCULOSKELETAL:No bony deformities or tenderness. No CVA tenderness. UPPER EXTREMITIES: 2+ pulses, warm, well-perfused. many ecchymosis b/l LOWER EXTREMITIES: 2+ pulses, warm, well-perfused. 2+ peripheral edema. erythema b/l NEUROLOGICAL: Cranial nerves II-XII intact. Normal speech. Reduced LT in lower extremities, finger-nose intact PSYCHIATRIC: Cooperative. Good eye contact. Appropriate mood and affect. CBCD WBC 20.8 K/mm3 (4.0-10.0) H 04/22/19 08:00 RBC 2.36 M/mm3 (3.60-5.2) L 04/22/19 08:00 Hgb 7.8 GM/dL (10.7-15.3) L 04/22/19 08:00 Hct 23.4 % (32.4-45.2) L 04/22/19 08:00 MCV 99.2 fl (80-96) H 04/22/19 08:00 MCHC 33.3 g/dl (32.0-36.0) 04/22/19 08:00 RDW 17.6 % (11.6-15.6) H 04/22/19 08:00 Plt Count 261 K/MM3 (134-434) 04/22/19 08:00 MPV 8.5 fl (7.5-11.1) 04/22/19 08:00 CMP Sodium 130 mmol/L (136-145) L 04/22/19 08:00 Potassium 3.3 mmol/L (3.5-5.1) L 04/22/19 08:00 Chloride 93 mmol/L (98-107) L 04/22/19 08:00 Carbon Dioxide 27 mmol/L (21-32) 04/22/19 08:00 Anion Gap 10 MMOL/L (8-16) 04/22/19 08:00 BUN 125.0 mg/dL (7-18) H* 04/22/19 08:00 Creatinine 3.1 mg/dL (0.55-1.3) H 04/22/19 08:00 Random Glucose 214 mg/dL (74-106) H 04/22/19 08:00 Calcium 7.9 mg/dL (8.5-10.1) L 04/22/19 08:00 Total Bilirubin 0.3 mg/dL (0.2-1) 04/22/19 08:00 AST 13 U/L (15-37) L 04/22/19 08:00 ALT 15 U/L (13-61) 04/22/19 08:00 Alkaline Phosphatase 113 U/L (45-117) 04/22/19 08:00 Total Protein 6.4 g/dl (6.4-8.2) 04/22/19 08:00 Albumin 2.8 g/dl (3.4-5.0) L 04/22/19 08:00 CARDIAC ENZYMES Creatine Kinase 65 U/L (26-192) 04/08/19 22:30 Troponin I < 0.02 ng/ml (0.00-0.05) 04/15/19 07:58 ASSESSMENT/PLAN: 89 yo F PMH of HTN, HLD, Left breast cancer, Hypothyroidism, GERD, NIDDM and Multiple CVAs, recently admitted at [facility] for bilateral LE cellulitis ( discharged 04/06/19) presented with shortness of breath on day of admission. pt stated that after she had dinner she became very short of breath and her granddaughter told her to come to the hospital. she stated that the last time she had a breathing problem she was in the hospital and it was after she finished eating. she stated it was short and improved with nasal oxygen. she stated she takes lasix 80 at home and is compliant with her medication. Consulted for severe sciatica pain on LLE. Per notes, she was already on Lyrica 50 mg twice a day but was complaining of shaking of her legs and her entire body. Per notes, she had rrequested reduction of the Lyrica and this was adjusted on the 25 mg twice a day. Now she feels suboptimal treatment of her neuropathyand had requested neurologist. In speaking with the patient, sheinformed me that during the daytime her symptoms are mmore than at nighttime. Therefore, I discussed adjusting her medication to 50 mg in the day but only 25 mg at nighttime. This should reduce her symptoms but also shaking sensation that she described. She discussed previously being on Cymbalta and seems that did not provide adequate relief. Discussed Limited medication optionsand she is already been on multiple treatments. Tight glycemic control recommended as this can precipitate neuropathic symptoms monitor diabetes and glucose range.
--- NOTE | 2019-04-23 09:12 | PN ---
Teaching Attending Note Name of Resident: Low Noble ATTENDING PHYSICIAN STATEMENT I saw and evaluated the patient. I reviewed the resident's note and discussed the case with the resident. I agree with the resident's findings and plan as documented. SUBJECTIVE: She states that the KEO edema has improved and never had SOB, OBJECTIVE: Vital Signs - 24 hr 04/22/19 04/22/19 04/22/19 14:00 18:00 21:00 Temperature 98.0 F 98.0 F Pulse Rate 69 76 Respiratory 18 18 20 Rate Blood Pressure 122/55 L 143/53 L O2 Sat by Pulse 96 Oximetry (%) 04/22/19 04/23/19 22:00 06:00 Temperature 97.3 F L Pulse Rate 80 77 Respiratory 20 18 Rate Blood Pressure 120/65 149/65 O2 Sat by Pulse Oximetry (%) She is in no distress, flat in bed with no SOB and no use of accessory muscles. CVS:S1S2 Lungs: has minimal bibasilar rales NO Wheezing Abd:BS+ NT/ND EXT: has B/L pitting KEO edema, no sacral edema no sign of cellulites at this time she is pale Current Medications Generic Name Dose Route Start Last Admin Trade Name Freq PRN Reason Stop Dose Admin Acetaminophen 650 mg 04/11/19 13:59 04/22/19 18:40 Tylenol - PO 650 mg Q6H PRN Administration PAIN Carvedilol 25 mg 04/11/19 22:00 04/22/19 21:17 Coreg - PO 25 mg BID [facility] Administration Famotidine 20 mg 04/12/19 10:00 04/22/19 10:15 Pepcid - PO 20 mg DAILY [facility] Administration Hydralazine HCl 20 mg 04/11/19 14:00 04/23/19 06:47 Apresoline - PO 20 mg TID [facility] Administration Insulin Aspart 1 vial 04/11/19 16:30 04/23/19 06:47 Novolog Vial Sliding Scale - SQ 2 units ACHS [facility] Administration Protocol Insulin Detemir 10 units 04/14/19 14:18 04/22/19 21:18 Levemir Vial SQ 10 unit HS [facility] Administration Letrozole 2.5 mg 04/12/19 10:00 04/22/19 10:15 Femara - PO 2.5 mg DAILY [facility] Administration Levothyroxine Sodium 112 mcg 04/12/19 07:00 04/23/19 06:47 Synthroid - PO 112 mcg DAILY@0700 [facility] Administration Multivitamins/Minerals/Vitamin C 1 tab 04/12/19 10:00 04/22/19 10:14 Tab-A-Vit - PO 1 tab DAILY [facility] Administration Pregabalin 25 mg 04/21/19 11:24 04/22/19 21:17 Lyrica - PO 25 mg BID [facility] Administration Labs: CBCD WBC 20.8 K/mm3 (4.0-10.0) H 04/22/19 08:00 RBC 2.36 M/mm3 (3.60-5.2) L 04/22/19 08:00 Hgb 7.8 GM/dL (10.7-15.3) L 04/22/19 08:00 Hct 23.4 % (32.4-45.2) L 04/22/19 08:00 MCV 99.2 fl (80-96) H 04/22/19 08:00 MCHC 33.3 g/dl (32.0-36.0) 04/22/19 08:00 RDW 17.6 % (11.6-15.6) H 04/22/19 08:00 Plt Count 261 K/MM3 (134-434) 04/22/19 08:00 MPV 8.5 fl (7.5-11.1) 04/22/19 08:00 CMP Sodium 130 mmol/L (136-145) L 04/22/19 08:00 Potassium 3.3 mmol/L (3.5-5.1) L 04/22/19 08:00 Chloride 93 mmol/L (98-107) L 04/22/19 08:00 Carbon Dioxide 27 mmol/L (21-32) 04/22/19 08:00 Anion Gap 10 MMOL/L (8-16) 04/22/19 08:00 BUN 125.0 mg/dL (7-18) H* 04/22/19 08:00 Creatinine 3.1 mg/dL (0.55-1.3) H 04/22/19 08:00 Random Glucose 214 mg/dL (74-106) H 04/22/19 08:00 Calcium 7.9 mg/dL (8.5-10.1) L 04/22/19 08:00 Total Bilirubin 0.3 mg/dL (0.2-1) 04/22/19 08:00 AST 13 U/L (15-37) L 04/22/19 08:00 ALT 15 U/L (13-61) 04/22/19 08:00 Alkaline Phosphatase 113 U/L (45-117) 04/22/19 08:00 Total Protein 6.4 g/dl (6.4-8.2) 04/22/19 08:00 Albumin 2.8 g/dl (3.4-5.0) L 04/22/19 08:00 CARDIAC ENZYMES Creatine Kinase 65 U/L (26-192) 04/08/19 22:30 Troponin I < 0.02 ng/ml (0.00-0.05) 04/15/19 07:58 ASSESSMENT AND PLAN: 89 year old woman with a history of HTN, hyperlipidemia, type 2 DM, CVAs, hypothyroidism, GERD, breast cancer who presented to the ED with SOB. Volume overload: likely combination of cardiac and renal etiology, now improving with diuresis but the renal function has significantly worsened, still has NL Bicarb. has hyponatremia, She may benefit from short term HD. patient has no daily weight and no proper way to measure the I.o at this time which makes things harder. HR well controlled, BP is also well controlled MAURICE over CKD: was evaluated by nephrology, lasix was held at this time , patient may benefit from short term HD which will discuss with nephrology on Friday if her kidney function did not improve, with volume overloaad, uremia and hyponateremia which are suboptimal response to diuresis. Anemia: normocytic, normochromic, can be in the setting of anemia of chronic disease VS, renal failure, will discuss with renal regards to initiation of EPO for her. Chronic leukocytosis to be evaluated by hematology DM2: well controlled Hypothyroidism GERD Hx CVA Hx Breast CA
[2019-04-23] MEDS ORDERED: PT OWN MED DRAWER 7, Y5N ONE (09:42)
[2019-04-23 09:58] LABS: BASO % 1.7 % (0-2.0); EOS % 4.5 % (0-4.5); HEMATOCRIT 23.6 % (32.4-45.2); HEMOGLOBIN 7.9 GM/dL (10.7-15.3); LYMPH % 6.8 % (8-40); MCH 32.9 pg (25.7-33.7); MCHC 33.6 g/dl (32.0-36.0); MEAN CELL VOLUME 98.1 fl (80-96); MEAN PLT VOLUME 8.4 fl (7.5-11.1); MONO % 17.6 % (3.8-10.2); NEUT % 69.4 % (42.8-82.8); PLATELET COUNT 267 K/MM3 (134-434); RBC 2.41 M/mm3 (3.60-5.2); RDW 17.2 % (11.6-15.6); WHITE BLOOD COUNT 19.2 K/mm3 (4.0-10.0)
[2019-04-23 10:09] LABS: ALBUMIN 2.8 g/dl (3.4-5.0); BILIRUBIN,TOTAL 0.3 mg/dL (0.2-1); CALCIUM 8.3 mg/dL (8.5-10.1); POTASSIUM 3.2 mmol/L (3.5-5.1); TOT PROT 6.4 g/dl (6.4-8.2)
[2019-04-23 10:12] LABS: BLOOD UREA NITROGEN 129.6 mg/dL (7-18)
--- NOTE | 2019-04-23 10:26 | PN ---
Physical Exam: SUBJECTIVE: Patient seen and examined. No events overnight. Offers no new complaints at this time. Denies sob, chest pain and says the LE swelling has improved. OBJECTIVE: Vital Signs Period Temp Pulse Resp BP Sys/Hernandez Pulse Ox Last 24 Hr 97.3 F-98.0 F 69-80 18-20 120-149/53-65 96 GENERAL: nad HEAD: Normal with no signs of trauma. EYES: PERRL, conjunctiva clear ENT: moist mucous membranes. NECK: supple. LUNGS: decreased breath sounds HEART: RRR ABDOMEN: Soft, nontender, nondistended, normoactive bowel sounds EXTREMITIES: 2+ pulses, +edema b/l Laboratory Results - last 24 hr 04/22/19 04/22/19 04/22/19 08:00 08:00 11:51 WBC RBC Hgb Hct MCV MCH MCHC RDW Plt Count MPV Absolute Neuts (auto) Neutrophils % Neutrophils % (Manual) 62.5 Band Neutrophils % 0.0 Lymphocytes % Lymphocytes % (Manual) 4.8 L D Monocytes % Monocytes % (Manual) 18 H D Eosinophils % Eosinophils % (Manual) 4.8 H Basophils % Basophils % (Manual) 1.9 Myelocytes % (Man) 2 Promyelocytes % (Man) 1 D Blast Cells % (Manual) 0 Nucleated RBC % 1 H Metamyelocytes 5 H D Hypochromia 0 Platelet Estimate Normal Polychromasia 1+ Poikilocytosis 0 Basophilic Stippling 2+ Anisocytosis 2+ Microcytosis 2+ Macrocytosis 0 Haptoglobin 243 Sodium Potassium Chloride Carbon Dioxide Anion Gap BUN Creatinine Est GFR (CKD-EPI)AfAm Est GFR (CKD-EPI)NonAf POC Glucometer 302 Random Glucose Calcium Total Bilirubin AST ALT Alkaline Phosphatase Total Protein Albumin 04/23/19 04/23/19 08:25 08:25 WBC 19.2 H RBC 2.41 L Hgb 7.9 L Hct 23.6 L MCV 98.1 H MCH 32.9 MCHC 33.6 RDW 17.2 H Plt Count 267 MPV 8.4 Absolute Neuts (auto) 13.3 H Neutrophils % 69.4 Neutrophils % (Manual) Band Neutrophils % Lymphocytes % 6.8 L Lymphocytes % (Manual) Monocytes % 17.6 H Monocytes % (Manual) Eosinophils % 4.5 Eosinophils % (Manual) Basophils % 1.7 Basophils % (Manual) Myelocytes % (Man) Promyelocytes % (Man) Blast Cells % (Manual) Nucleated RBC % 0 Metamyelocytes Hypochromia Platelet Estimate Polychromasia Poikilocytosis Basophilic Stippling Anisocytosis Microcytosis Macrocytosis Haptoglobin Sodium 131 L Potassium 3.2 L Chloride 92 L Carbon Dioxide 27 Anion Gap 12 BUN 129.6 H* Creatinine 3.0 H Est GFR (CKD-EPI)AfAm 15.33 Est GFR (CKD-EPI)NonAf 13.22 POC Glucometer Random Glucose 180 H Calcium 8.3 L Total Bilirubin 0.3 AST 13 L ALT 15 Alkaline Phosphatase 113 Total Protein 6.4 Albumin 2.8 L Active Medications Generic Name Dose Route Start Last Admin Trade Name Freq PRN Reason Stop Dose Admin Acetaminophen 650 mg 04/11/19 13:59 04/22/19 18:40 Tylenol - PO 650 mg Q6H PRN Administration PAIN Carvedilol 25 mg 04/11/19 22:00 04/22/19 21:17 Coreg - PO 25 mg BID AMRIT Administration Famotidine 20 mg 04/12/19 10:00 04/22/19 10:15 Pepcid - PO 20 mg DAILY AMRIT Administration Hydralazine HCl 20 mg 04/11/19 14:00 04/23/19 06:47 Apresoline - PO 20 mg TID AMRIT Administration Insulin Aspart 1 vial 04/11/19 16:30 04/23/19 06:47 Novolog Vial Sliding Scale - SQ 2 units ACHS AMRIT Administration Protocol Insulin Detemir 10 units 04/14/19 14:18 04/22/19 21:18 Levemir Vial SQ 10 unit HS AMRIT Administration Letrozole 2.5 mg 04/12/19 10:00 04/22/19 10:15 Femara - PO 2.5 mg DAILY AMRIT Administration Levothyroxine Sodium 112 mcg 04/12/19 07:00 04/23/19 06:47 Synthroid - PO 112 mcg DAILY@0700 AM[facility]IT Administration Multivitamins/Minerals/Vitamin C 1 tab 04/12/19 10:00 04/22/19 10:14 Tab-A-Vit - PO 1 tab DAILY AMRIT Administration Pregabalin 25 mg 04/23/19 22:00 Lyrica - PO HS AMRIT Pregabalin 50 mg 04/23/19 10:00 Lyrica - PO DAILY AMRIT ASSESSMENT/PLAN: This is an 89 year old woman with a history of HTN, hyperlipidemia, type 2 DM, CVAs, hypothyroidism, GERD, breast cancer who presented to the ED with SOB. #Acute on chronic diastolic heart failure #Volume overload likely renal and cardio etiology #MAURICE on CKD #Stage 4 CKD #Chronic Leukocytosis #HTN #DM2 #LLE pain likely sciatica #HLD #Cellulitis #Hypothyroidism #GERD #Hx CVA #Hx Breast CA #Macrocytic Anemia Plan: -clinically improved but renal function worse -Lasix held yesterday and today for elevated BUN. Metolazone held for now due to worsening Cr. -cr with no significant change -may benefit from short term HD. -pt not eager to start HD, will observe over next few days per Nephro -keep losartan on hold for now -i/os and daily weight no accurately measured -echo with normal EF -NA and fluid restriction -completed abx for cellulitis -replete lytes as needed -Neuro consult for sciatica pain. will change lyrica to 50mg in morning and 25 at night for better pain control. -Hgb stable today. no change from yesterday. -Anemia like in setting of ACD vs renal disease. will discuss with renal initiation of EPO -SSI, Levemir 10U HS -FU renal reccs -FU am labs -cardio eval appreciated -Heme consult for anemia, leukocytosis. pending FISH and flow studies -DVT ppx with SCDs. Visit type - Emergency Visit Emergency Visit: Yes ED Registration Date: 04/08/19 Care time: The patient presented to the Emergency Department on the above date and was hospitalized for further evaluation of their emergent condition. - New Patient This patient is new to me today: Yes Date on this admission: 04/23/19 - Critical Care Critical Care patient: No ATTENDING PHYSICIAN STATEMENT I saw and evaluated the patient. I reviewed the resident's note and discussed the case with the resident. I agree with the resident's findings and plan as documented. SUBJECTIVE: OBJECTIVE: ASSESSMENT AND PLAN:
[2019-04-23 10:37] LABS: ANISOCYTOSIS 1+; MACROCYTOSIS 0; OVALOCYTE 1+; PLATELET ESTIMATE NORMAL; TEAR DROP CELLS 1+
[2019-04-23] MEDS: MULTIVITAMINS (DAILY MVI) TABLET (FP) PO SCH (10:45)
[2019-04-23] MEDS: CARVEDILOL 25 MG TABLET (FP) PO SCH ×2 (10:46→22:09)
[2019-04-23] MEDS: FAMOTIDINE 20 MG TABLET PO SCH (10:46)
[2019-04-23] MEDS: LETROZOLE 2.5 MG TABLET (FP) PO SCH (10:46)
[2019-04-23] MEDS: PREGABALIN 50 MG CAPSULE PO SCH ×4 (10:49→22:25)
--- NOTE | 2019-04-23 11:19 | PN ---
Physical Exam: SUBJECTIVE: Patient seen and examined compalin of constipation and psyctica pain breathing is better FISH , flow and cyto are pending leg swelling is better OBJECTIVE: Vital Signs Period Temp Pulse Resp BP Sys/Hernandez Pulse Ox Last 24 Hr 97.3 F-98.0 F 69-80 18-20 120-149/53-65 96 GENERAL: Awake, alert, and fully oriented, in no acute distress.generalized fatigue HEAD: Normal with no signs of trauma. EYES: Pupils equal, round and reactive to light, extraocular movements intact, sclera anicteric, EARS, NOSE, THROAT:dry mucous membranes.no oral thrush or mucositis noted NECK: supple no lymphadenopathy LUNGS: bibasilar crackles HEART: Regular rate and rhythm, normal S1 and S2 without murmur, rub or gallop. ABDOMEN: Soft, diffuse tenderness , distended, normoactive bowel sounds, LOWER EXTREMITIES: 2+ pulses, warm, well-perfused. trace peripheral edema. B/L erythema with cellulitis NEUROLOGICAL: no focal deficit . Normal speech. PSYCHIATRIC: Cooperative. SKIN: Warm, dry, normal turgor, no breast mass palpated . surgery scar beneath left breast no lymph nodes enlargement Laboratory Results - last 24 hr 04/22/19 04/22/19 04/22/19 08:00 11:51 17:43 WBC RBC Hgb Hct MCV MCH MCHC RDW Plt Count MPV Absolute Neuts (auto) Neutrophils % Neutrophils % (Manual) Band Neutrophils % Lymphocytes % Lymphocytes % (Manual) Monocytes % Monocytes % (Manual) Eosinophils % Eosinophils % (Manual) Basophils % Basophils % (Manual) Myelocytes % (Man) Promyelocytes % (Man) Blast Cells % (Manual) Nucleated RBC % Metamyelocytes Hypochromia Platelet Estimate Platelet Comment Polychromasia Poikilocytosis Basophilic Stippling Anisocytosis Microcytosis Macrocytosis Tear Drop Cells Ovalocytes Stomatocytes Haptoglobin 243 Sodium Potassium Chloride Carbon Dioxide Anion Gap BUN Creatinine Est GFR (CKD-EPI)AfAm Est GFR (CKD-EPI)NonAf POC Glucometer 302 201 Random Glucose Calcium Total Bilirubin AST ALT Alkaline Phosphatase Total Protein Albumin 04/22/19 04/23/19 04/23/19 21:15 06:46 08:25 WBC 19.2 H RBC 2.41 L Hgb 7.9 L Hct 23.6 L MCV 98.1 H MCH 32.9 MCHC 33.6 RDW 17.2 H Plt Count 267 MPV 8.4 Absolute Neuts (auto) 13.3 H Neutrophils % 69.4 Neutrophils % (Manual) 50.0 Band Neutrophils % 6.0 Lymphocytes % 6.8 L Lymphocytes % (Manual) 1.0 L D Monocytes % 17.6 H Monocytes % (Manual) 13 H Eosinophils % 4.5 Eosinophils % (Manual) 5.0 H Basophils % 1.7 Basophils % (Manual) 6.0 H* D Myelocytes % (Man) 6 H D Promyelocytes % (Man) 3 H D Blast Cells % (Manual) 0 Nucleated RBC % 0 Metamyelocytes 6 H Hypochromia 0 Platelet Estimate Normal Platelet Comment Present Polychromasia 1+ Poikilocytosis 1+ Basophilic Stippling 1+ Anisocytosis 1+ Microcytosis 1+ Macrocytosis 0 Tear Drop Cells 1+ Ovalocytes 1+ Stomatocytes 1+ Haptoglobin Sodium Potassium Chloride Carbon Dioxide Anion Gap BUN Creatinine Est GFR (CKD-EPI)AfAm Est GFR (CKD-EPI)NonAf POC Glucometer 249 195 Random Glucose Calcium Total Bilirubin AST ALT Alkaline Phosphatase Total Protein Albumin 04/23/19 08:25 WBC RBC Hgb Hct MCV MCH MCHC RDW Plt Count MPV Absolute Neuts (auto) Neutrophils % Neutrophils % (Manual) Band Neutrophils % Lymphocytes % Lymphocytes % (Manual) Monocytes % Monocytes % (Manual) Eosinophils % Eosinophils % (Manual) Basophils % Basophils % (Manual) Myelocytes % (Man) Promyelocytes % (Man) Blast Cells % (Manual) Nucleated RBC % Metamyelocytes Hypochromia Platelet Estimate Platelet Comment Polychromasia Poikilocytosis Basophilic Stippling Anisocytosis Microcytosis Macrocytosis Tear Drop Cells Ovalocytes Stomatocytes Haptoglobin Sodium 131 L Potassium 3.2 L Chloride 92 L Carbon Dioxide 27 Anion Gap 12 BUN 129.6 H* Creatinine 3.0 H Est GFR (CKD-EPI)AfAm 15.33 Est GFR (CKD-EPI)NonAf 13.22 POC Glucometer Random Glucose 180 H Calcium 8.3 L Total Bilirubin 0.3 AST 13 L ALT 15 Alkaline Phosphatase 113 Total Protein 6.4 Albumin 2.8 L Active Medications Generic Name Dose Route Start Last Admin Trade Name Freq PRN Reason Stop Dose Admin Acetaminophen 650 mg 04/11/19 13:59 04/22/19 18:40 Tylenol - PO 650 mg Q6H PRN Administration PAIN Carvedilol 25 mg 04/11/19 22:00 04/23/19 10:46 Coreg - PO 25 mg BID AMRIT Administration Famotidine 20 mg 04/12/19 10:00 04/23/19 10:46 Pepcid - PO 20 mg DAILY AMRIT Administration Hydralazine HCl 20 mg 04/11/19 14:00 04/23/19 06:47 Apresoline - PO 20 mg TID AMRIT Administration Insulin Aspart 1 vial 04/11/19 16:30 04/23/19 06:47 Novolog Vial Sliding Scale - SQ 2 units ACHS AMRIT Administration Protocol Insulin Detemir 10 units 04/14/19 14:18 04/22/19 21:18 Levemir Vial SQ 10 unit HS AMRIT Administration Letrozole 2.5 mg 04/12/19 10:00 04/23/19 10:46 Femara - PO 2.5 mg DAILY AMRIT Administration Levothyroxine Sodium 112 mcg 04/12/19 07:00 04/23/19 06:47 Synthroid - PO 112 mcg DAILY@0700 AMRIT Administration Multivitamins/Minerals/Vitamin C 1 tab 04/12/19 10:00 04/23/19 10:45 Tab-A-Vit - PO 1 tab DAILY [facility]RIT Administration Pregabalin 25 mg 04/23/19 22:00 Lyrica - PO HS AMRIT Pregabalin 50 mg 04/23/19 10:00 Lyrica - PO DAILY AMRIT CBC, BMP 04/23/19 08:25 04/23/19 08:25 ASSESSMENT/PLAN: 89 yo F PMH of HTN, HLD, Left breast cancer, Hypothyroidism, GERD, NIDDM and Multiple CVAs, recently admitted at [facility] for bilateral LE cellulitis ( discharged 04/06/19) presenting with shortness of breath . 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 iron deficiency anemia , need to find out reason for macrocytosis # Leuckocytosisn R.O MDS * monitor H/H daily * occult blood negative * maintain hgb > 7 * b12 , FA , normal * iron studies , ferritin with iron deficiency anemia start venofer * will send fish flow and cytometry to R/O MDS # History of breast cancer S.p radiation , stable follow up out pt # Leuckocytosis off abx per ID , had for cellulites, R.O MDS # HTN # HLD #DCHF # Hyponatremia # CKD Stage IV Visit type - Emergency Visit Emergency Visit: Yes ED Registration Date: 04/08/19 Care time: The patient presented to the Emergency Department on the above date and was hospitalized for further evaluation of their emergent condition. - New Patient This patient is new to me today: Yes Date on this admission: 04/08/19 - Critical Care Critical Care patient: No - Discharge Referral Referred to [facility] No ATTENDING PHYSICIAN STATEMENT I saw and evaluated the patient. I reviewed the resident's note and discussed the case with the resident. I agree with the resident's findings and plan as documented. SUBJECTIVE: OBJECTIVE: ASSESSMENT AND PLAN:
[2019-04-23] MEDS ORDERED: POTASSIUM CHLORIDE TABS 20 MEQ TABLET.ER (FP) PO ONE (13:36)
--- NOTE | 2019-04-23 13:39 | PN ---
Progress Note, Physician History of Present Illness: Pt seen and examined at bedside. She is awake and alert. She denies shortness of breath. - Current Medication List Current Medications: Active Medications Acetaminophen (Tylenol -) 650 mg PO Q6H PRN PRN Reason: PAIN Last Admin: 04/22/19 18:40 Dose: 650 mg Carvedilol (Coreg -) 25 mg PO BID [facility] Last Admin: 04/23/19 10:46 Dose: 25 mg Famotidine (Pepcid -) 20 mg PO DAILY [facility] Last Admin: 04/23/19 10:46 Dose: 20 mg Hydralazine HCl (Apresoline -) 20 mg PO TID [facility] Last Admin: 04/23/19 13:36 Dose: 20 mg Insulin Aspart (Novolog Vial Sliding Scale -) 1 vial SQ [facility]; Protocol Last Admin: 04/23/19 13:33 Dose: 8 units Insulin Detemir (Levemir Vial) 10 units SQ [facility] Last Admin: 04/22/19 21:18 Dose: 10 unit Letrozole (Femara -) 2.5 mg PO DAILY [facility] Last Admin: 04/23/19 10:46 Dose: 2.5 mg Levothyroxine Sodium (Synthroid -) 112 mcg PO DAILY@0700 [facility] Last Admin: 04/23/19 06:47 Dose: 112 mcg Multivitamins/Minerals/Vitamin C (Tab-A-Vit -) 1 tab PO DAILY [facility] Last Admin: 04/23/19 10:45 Dose: 1 tab Pregabalin (Lyrica -) 25 mg PO [facility] Pregabalin (Lyrica -) 50 mg PO DAILY [facility] Last Admin: 04/23/19 11:26 Dose: Not Given - Objective Vital Signs: Vital Signs Temperature 97.3 F L 04/23/19 06:00 Pulse Rate 77 04/23/19 06:00 Respiratory Rate 18 04/23/19 06:00 Blood Pressure 149/65 04/23/19 06:00 O2 Sat by Pulse Oximetry (%) 96 04/22/19 21:00 Constitutional: Yes: Calm Eyes: Yes: Conjunctiva Clear HENT: Yes: Atraumatic Neck: Yes: Supple Cardiovascular: Yes: S1, S2 Respiratory: Yes: CTA Bilaterally Gastrointestinal: Yes: Soft Genitourinary: Yes: WNL Musculoskeletal: Yes: WNL Edema: Yes Edema: LLE: 1+, RLE: 1+ Neurological: Yes: Oriented Psychiatric: Yes: Oriented Labs: CBC, BMP 04/23/19 08:25 04/23/19 08:25 INR, PTT INR 1.01 (0.83-1.09) 04/08/19 22:30 Assessment/Plan Current Medications Generic Name Dose Route Start Last Admin Trade Name Freq PRN Reason Stop Dose Admin Acetaminophen 650 mg 04/11/19 13:59 04/22/19 18:40 Tylenol - PO 650 mg Q6H PRN Administration PAIN Carvedilol 25 mg 04/11/19 22:00 04/23/19 10:46 Coreg - PO 25 mg BID AMRIT Administration Famotidine 20 mg 04/12/19 10:00 04/23/19 10:46 Pepcid - PO 20 mg DAILY AMRIT Administration Hydralazine HCl 20 mg 04/11/19 14:00 04/23/19 13:36 Apresoline - PO 20 mg TID AMRIT Administration Insulin Aspart 1 vial 04/11/19 16:30 04/23/19 13:33 Novolog Vial Sliding Scale - SQ 8 units ACHS AMRIT Administration Protocol Insulin Detemir 10 units 04/14/19 14:18 04/22/19 21:18 Levemir Vial SQ 10 unit HS AMRIT Administration Letrozole 2.5 mg 04/12/19 10:00 04/23/19 10:46 Femara - PO 2.5 mg DAILY AMRIT Administration Levothyroxine Sodium 112 mcg 04/12/19 07:00 04/23/19 06:47 Synthroid - PO 112 mcg DAILY@0700 [facility]IT Administration Multivitamins/Minerals/Vitamin C 1 tab 04/12/19 10:00 04/23/19 10:45 Tab-A-Vit - PO 1 tab DAILY [facility]RIT Administration Pregabalin 25 mg 04/23/19 22:00 Lyrica - PO HS [facility]IT Pregabalin 50 mg 04/23/19 10:00 04/23/19 11:26 Lyrica - PO Not Given DAILY [facility]RIT Impression 1. proteinuria 2. hypothyroid 3. HTN 4. DM 5. fluid overload 6. breast cancer 7. MAURICE 8. CKD Plan - cont to monitor renal function - restart lasix once renal function stabilizes - pt not eager to start HD, will observe over next few days - keep losartan on hold for now - check bladder scan, spoke to nurse - [address] Sequeira
--- NOTE | 2019-04-23 14:18 | PN ---
Progress Note (short form) - Note Progress Note: PULMONARY ALERT/ORIENTED COUGH WITH SCANT SPUTUM VSS/AFEBRILE Constitutional: Yes: Awake and alert, NAD Cardiovascular: Yes: Regular Rate and Rhythm, JVD, S1, S2. No: Gallop, Murmur Respiratory: Yes: Scattered bibasilar rhonchi and rales. No: Accessory Muscle Use Extremities: No: Cold Edema: Yes (chronic skin changes) Neurological: Yes: Alert, Oriented Psychiatric: No: Agitated Labs/IMAGES NOTED IMP DYSPNEA DUE TO ACUTE DIASTOLIC HF LOWER EXT EDEMA ACUTE ON CHRONIC KIDNEY DISEASE H/O LEFT BREAST CA S/P LUMPECTOMY,RT 2014 ANEMIA 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
--- NOTE | 2019-04-23 14:55 | ECHO ---
Name: TERESITANELDA, MACHO Exam:Adult Echocardiogram Study Date: 04/23/2019 12:40 PM Age: 89 yrs Reason For Study: volume overload Height: 67 in Weight: 193 lb BSA: 2.0 m2 MMode/2D Measurements & Calculations IVSd: 1.2 cm Ao root diam: 3.0 cm LVIDd: 4.6 cm LA dimension: 3.9 cm LVIDs: 2.6 cm LVPWd: 1.1 cm EDV(Teich): 98.4 ml LVOT diam: 2.0 cm ESV(Teich): 25.7 ml LAV (MOD-bp): 149.0 ml Doppler Measurements & Calculations MV E max odell: 130.0 cm/sec Ao V2 max: 171.0 cm/sec MV A max odell: 76.2 cm/sec Ao max P.7 mmHg MV E/A: 1.7 MV dec time: 0.20 sec CASSIA(V,D): 1.7 cm2 LV V1 max P.7 mmHg MR max odell: 398.0 cm/sec LV V1 max: 96.5 cm/sec MR max P.5 mmHg TR max odell: 312.9 cm/sec PA V2 max: 92.3 cm/sec TR max P.2 mmHg PA max P.4 mmHg Med Peak E' Odell: 5.5 cm/sec PI Vmax: 150.7 cm/sec Med E/e': 23.4 Lat Peak E' Odell: 7.5 cm/sec Lat E/e': 17.3 Left Ventricle There is mild concentric left ventricular hypertrophy. Left ventricular systolic function is normal. Ejection Fraction = 55-60%. The transmitral spectral Doppler flow pattern is suggestive of pseudonormalization . Right Ventricle The right ventricle is normal in size and function. Atria The left atrium is mildly dilated. Mitral Valve There is mild to moderate mitral annular calcification. There is mild mitral valve thickening. There is no mitral valve stenosis. There is mild mitral regurgitation. Tricuspid Valve The tricuspid valve is normal in structure and function. There is mild tricuspid regurgitation. Right ventricular systolic pressure is elevated at 40-50mmHg. Aortic Valve There is mild aortic sclerosis.;. No hemodynamically significant valvular aortic stenosis. No aortic regurgitation is present. Pulmonic Valve The pulmonic valve is not well seen, but is grossly normal. There is no pulmonic valvular stenosis. T race to mild pulmonic valvular regurgitation. Great Vessels The aortic root is normal size. Pericardium/Pleura There is no pericardial effusion. Interpretation Summary There is mild concentric left ventricular hypertrophy. Left ventricular systolic function is normal. Ejection Fraction = 55-60%. The left atrium is mildly dilated. There is mild to moderate mitral annular calcification. There is mild mitral valve thickening. There is mild mitral regurgitation. There is mild tricuspid regurgitation. Right ventricular systolic pressure is elevated at 40-50mmHg. There is mild aortic sclerosis.; There is no pericardial effusion. MD Laird *Kera 04/23/2019 02:54 PM
--- NOTE | 2019-04-23 15:21 | PN ---
Progress Note (short form) - Note Progress Note: s: sob and le edema better today. no cp palps dizzy Current Medications Generic Name Dose Route Start Last Admin Trade Name Freq PRN Reason Stop Dose Admin Acetaminophen 650 mg 04/11/19 13:59 04/22/19 18:40 Tylenol - PO 650 mg Q6H PRN Administration PAIN Carvedilol 25 mg 04/11/19 22:00 04/23/19 10:46 Coreg - PO 25 mg BID AMRIT Administration Famotidine 20 mg 04/12/19 10:00 04/23/19 10:46 Pepcid - PO 20 mg DAILY [facility]IT Administration Hydralazine HCl 20 mg 04/11/19 14:00 04/23/19 13:36 Apresoline - PO 20 mg TID AMRIT Administration Insulin Aspart 1 vial 04/11/19 16:30 04/23/19 13:33 Novolog Vial Sliding Scale - SQ 8 units ACHS AMRIT Administration Protocol Insulin Detemir 10 units 04/14/19 14:18 04/22/19 21:18 Levemir Vial SQ 10 unit HS AMRIT Administration Letrozole 2.5 mg 04/12/19 10:00 04/23/19 10:46 Femara - PO 2.5 mg DAILY [facility]RIT Administration Levothyroxine Sodium 112 mcg 04/12/19 07:00 04/23/19 06:47 Synthroid - PO 112 mcg DAILY@0700 AM[facility]IT Administration Multivitamins/Minerals/Vitamin C 1 tab 04/12/19 10:00 04/23/19 10:45 Tab-A-Vit - PO 1 tab DAILY [facility]IT Administration Pregabalin 25 mg 04/23/19 22:00 Lyrica - PO HS AMRIT Pregabalin 50 mg 04/23/19 10:00 04/23/19 11:26 Lyrica - PO Not Given DAILY [facility]RIT Vital Signs Period Temp Pulse Resp BP Sys/Hernandez Pulse Ox Last 24 Hr 97.3 F-98.0 F 76-80 18-20 120-149/53-65 96 Constitutional: Yes: Well Nourished, No Distress, Calm Cardiovascular: Yes: Regular Rate and Rhythm, JVD, S1, S2. No: Gallop, Murmur Respiratory: Yes: Regular, CTA Bilaterally. No: Accessory Muscle Use, Rales, Wheezes Extremities: No: Cold Edema: trace le edema bl Neurological: Yes: Alert, Oriented Psychiatric: No: Agitated CBC, BMP 04/23/19 08:25 04/23/19 08:25 Assessment/Plan EKG: sinus,nl intervals, no ischemic changes CXR: + congestive changes echo 03/2019 nl LV function, mild MR, mild TR, PASP at least 49 mmHg acute diastolic heart failure exacerbation: - recent echo nl LV function, mild pulm HTN - CT chest bilat effusions and vascular congestion pattern, with + flank subcutaneous edema -vol status improved after iv lasix. bun/cr rising so now diuretics held. resume po lasix when cr stable. lower ext cellulitis: - manage per ID, primary HTN - cont current meds MAURICE on CKD: - monitor cr off diuretic for now - renal following cp: -resolved -ecg unremarkable -trop neg x2 -monitor for now
--- NOTE | 2019-04-23 15:32 | PN ---
Progress Note, Physician History of Present Illness: stable looks better - Current Medication List Current Medications: Active Medications Acetaminophen (Tylenol -) 650 mg PO Q6H PRN PRN Reason: PAIN Last Admin: 04/22/19 18:40 Dose: 650 mg Carvedilol (Coreg -) 25 mg PO BID [facility] Last Admin: 04/23/19 10:46 Dose: 25 mg Famotidine (Pepcid -) 20 mg PO DAILY [facility] Last Admin: 04/23/19 10:46 Dose: 20 mg Hydralazine HCl (Apresoline -) 20 mg PO TID [facility] Last Admin: 04/23/19 13:36 Dose: 20 mg Insulin Aspart (Novolog Vial Sliding Scale -) 1 vial SQ [facility]; Protocol Last Admin: 04/23/19 13:33 Dose: 8 units Insulin Detemir (Levemir Vial) 10 units SQ [facility] Last Admin: 04/22/19 21:18 Dose: 10 unit Letrozole (Femara -) 2.5 mg PO DAILY [facility] Last Admin: 04/23/19 10:46 Dose: 2.5 mg Levothyroxine Sodium (Synthroid -) 112 mcg PO DAILY@0700 [facility] Last Admin: 04/23/19 06:47 Dose: 112 mcg Multivitamins/Minerals/Vitamin C (Tab-A-Vit -) 1 tab PO DAILY [facility] Last Admin: 04/23/19 10:45 Dose: 1 tab Pregabalin (Lyrica -) 25 mg PO [facility] Pregabalin (Lyrica -) 50 mg PO DAILY [facility] Last Admin: 04/23/19 11:26 Dose: Not Given - Objective Vital Signs: Vital Signs Temperature 97.5 F L 04/23/19 14:00 Pulse Rate 76 04/23/19 14:00 Respiratory Rate 18 04/23/19 14:00 Blood Pressure 141/57 L 04/23/19 14:00 O2 Sat by Pulse Oximetry (%) 96 04/22/19 21:00 Constitutional: Yes: No Distress, Calm Cardiovascular: Yes: S1, S2 Respiratory: Yes: Regular, Poor Air Entry Gastrointestinal: Yes: Normal Bowel Sounds, Soft Musculoskeletal: Yes: Other Extremities: Yes: Erythema, Other Neurological: Yes: Alert Psychiatric: Yes: Alert Labs: CBC, BMP 04/23/19 08:25 04/23/19 08:25 INR, PTT INR 1.01 (0.83-1.09) 04/08/19 22:30 Assessment/Plan Problem List - Problems (1) Acute diastolic (congestive) heart failure Code(s): I50.31 - ACUTE DIASTOLIC (CONGESTIVE) HEART FAILURE (2) Acute kidney injury superimposed on CKD Code(s): N17.9 - ACUTE KIDNEY FAILURE, UNSPECIFIED; N18.9 - CHRONIC KIDNEY DISEASE, UNSPECIFIED (3) Anemia Code(s): D64.9 - ANEMIA, UNSPECIFIED Qualifiers: Anemia type: unspecified type Qualified Code(s): D64.9 - Anemia, unspecified (4) Bilateral leg edema Code(s): R60.0 - LOCALIZED EDEMA (5) Hypothyroid Code(s): E03.9 - HYPOTHYROIDISM, UNSPECIFIED Qualifiers: Hypothyroidism type: unspecified Qualified Code(s): E03.9 - Hypothyroidism , unspecified (6) Shortness of breath Code(s): R06.02 - SHORTNESS OF BREATH (7) Breast cancer, left Code(s): C50.912 - MALIGNANT NEOPLASM OF UNSPECIFIED SITE OF LEFT FEMALE BREAST (8) Diabetes Code(s): E11.9 - TYPE 2 DIABETES MELLITUS WITHOUT COMPLICATIONS Qualifiers: Diabetes mellitus type: type 2 (9) GERD (gastroesophageal reflux disease) Code(s): K21.9 - GASTRO-ESOPHAGEAL REFLUX DISEASE WITHOUT ESOPHAGITIS (10) HTN (hypertension) Code(s): I10 - ESSENTIAL (PRIMARY) HYPERTENSION (11) History of CVA with residual deficit Code(s): I69.30 - UNSPECIFIED SEQUELAE OF CEREBRAL INFARCTION (12) Lower extremity cellulitis Code(s): L03.119 - CELLULITIS OF UNSPECIFIED PART OF LIMB Assessment/Plan 89 y.o. female with PMH of DM, CKD, HTN, HLD, anemia, Lt breast CA s/p lumpectomy/RT, hypothyroidism, CVA, GBS, remote history of meningitis presents with complaints of worsening SOB and b/l LE edema that began several days [employer] after recent hospital discharge. Treated for b/l LE cellulitis with some improvement. Noted to have leukocytosis, LE erythema, worsening renal function and anemia b/l LE cellulitis Leukocytosis SOB b/l LE edema Acute diastolic HF Anemia Acute on chronic RF DM HTN Hx of Lt Breast CA Hypothyroidism Hx of CVAs plan continue current mgmt close watch physio rest as per the team
[2019-04-23] MEDS: ACETAMINOPHEN 325 MG TABLET (FP) PO PRN (15:37)
--- NOTE | 2019-04-23 16:18 | PATH ---
Surgical Pathology Report Patient Name: MACHO HASTINGS [facility]. Rec. #: [id number] /Age/Gender: 1930 (Age: 89) / F Account: [id number] Location: [address] [place] [address] Taken: 04/22/2019 Received: 04/22/2019 Reported: 04/23/2019 Physicians: Herson Cabrera M.D. Specimen(s) Received PERIPHERAL BLOOD Clinical History Anemia, leukocytosis, rule out MDS Final Diagnosis COMPREHENSIVE FLOW PANEL performed and interpreted at [facility] laboratory, [place], [place] ([id number]) shows the following: INTERPRETATION: Granulocytes with left-shift. Comment: The differential diagnosis includes a reactive condition or a myeloid neoplasm. Please correlate with morphologic, clinical, and cytogenetic/molecular findings for further classification. Phenotype: Granulocytes show an increase in immature/left-shifted forms. However, no aberrant marker expression is noted and blasts are not increased. Lymphocytes include NK cells and immunophenotypically normal CD4+ and CD8+ T cells T cells with a decreased CD4:CD8. B cells are too few to assess clonality by light-chain staining. Cytomorphology: Smears from flow sample show no increase in myeloblasts or atypical lymphocytes. See Emerge report for additional details. Electronically Signed Precious Elena M.D. Addendum Reported: 04/27/2019 Addendum Diagnosis MYELODYSPLASIA FISH PANEL performed and interpreted at [facility], [place], [place] ([id number]) shows the following: INTERPRETATION: Trisomy 8 is present. No evidence of deletion 5q or monosomy 5 is present. No evidence of deletion 7q or monosomy 7 is present. No evidence of deletion 13q14.2 is present. No evidence of a rearrangement of 11q23. No evidence of a deletion of the p53 (17p13) locus. No evidence of deletion 20q12 is present. No BCR/ABL1 t(9;22) translocation is detected. Comments: Trisomy 8 is observed in myeloid malignancies including myelodysplastic syndromes, chronic myeloproliferative neoplasms, and acute myeloid leukemia, where it is considered an intermediate to unfavorable prognostic marker. Correlation with pending cytogenetics is recommended. See Emerge report for additional details. Precious Elena M.D. 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 All twenty analyzed metaphase cells displayed gain of one copy of chromosome 8. No normal cells were observed. Trisomy 8 is a common cytogenetic finding in myelodysplastic syndrome, acute myeloid leukemia, and myeloproliferative neoplasms. No other consistent numerical or structural chromosome abnormalities were observed. Subtle rearrangements or the presence of an aberrant clone in a low proportion of cells cannot be ruled out. Correlation with other clinical and hematologic data is suggested. See Emerge report for additional details. Precious Elena M.D. Gross Description Received are 4 green top tubes of blood which are sent to [facility]. 04/22/2019 saudi04/22/2019
[2019-04-23 16:34] VITALS: BMI 30.2
[2019-04-23] MEDS ORDERED: DOCUSATE SODIUM 100 MG CAPSULE (FP) PO ONE (17:51)
[2019-04-23] MEDS ORDERED: PREGABALIN 25 MG CAPSULE PO SCH (22:00)
[2019-04-23] MEDS: INSULIN (LEVEMIR) 100 UNITS/ML UNITS SQ SCH (22:09)
[2019-04-23] MEDS ORDERED: PREGABALIN 25 MG CAPSULE PO ONE (22:19)
[2019-04-24] MEDS: hydrALAZINE HCL 10 MG TABLET PO SCH ×2 (07:18→14:36)
[2019-04-24] MEDS: INSULIN SLIDING SCALE (NOVOLOG) 1 VIAL SQ SCH ×3 (07:18→17:29)
[2019-04-24] MEDS: LEVOTHYROXINE NA 112 MCG TABLET (FP) PO SCH (07:18)
[2019-04-24 10:20] LABS: BASO % 1.2 % (0-2.0); EOS % 5.1 % (0-4.5); HEMATOCRIT 22.8 % (32.4-45.2); HEMOGLOBIN 7.5 GM/dL (10.7-15.3); LYMPH % 7.8 % (8-40); MCH 32.8 pg (25.7-33.7); MCHC 32.8 g/dl (32.0-36.0); MEAN CELL VOLUME 99.8 fl (80-96); MEAN PLT VOLUME 8.7 fl (7.5-11.1); MONO % 16.3 % (3.8-10.2); NEUT % 69.6 % (42.8-82.8); PLATELET COUNT 250 K/MM3 (134-434); RBC 2.29 M/mm3 (3.60-5.2); RDW 17.7 % (11.6-15.6); WHITE BLOOD COUNT 18.1 K/mm3 (4.0-10.0)
[2019-04-24 10:22] LABS: ALBUMIN 2.7 g/dl (3.4-5.0); BILIRUBIN,TOTAL 0.3 mg/dL (0.2-1); CALCIUM 8.5 mg/dL (8.5-10.1); POTASSIUM 3.6 mmol/L (3.5-5.1); TOT PROT 6.2 g/dl (6.4-8.2)
[2019-04-24] MEDS ORDERED: PT OWN MED DRAWER 7, Y5N ONE ×3 (10:32→21:50)
[2019-04-24] MEDS: FAMOTIDINE 20 MG TABLET PO SCH (10:35)
[2019-04-24] MEDS: PREGABALIN 25 MG CAPSULE PO SCH (10:35)
[2019-04-24] MEDS: MULTIVITAMINS (DAILY MVI) TABLET (FP) PO SCH (10:35)
[2019-04-24] MEDS: CARVEDILOL 25 MG TABLET (FP) PO SCH (10:35)
[2019-04-24] MEDS: LETROZOLE 2.5 MG TABLET (FP) PO SCH (10:36)
--- NOTE | 2019-04-24 10:41 | PN ---
Progress Note, Physician History of Present Illness: seen and examined at bedside. No events overnight. endorses cough which is non productive. Denies nausea vomiting fever chills chest pain SOB. RN endorses constipation. Afebrile. Creatinine unchanged at 3.0 - Current Medication List Current Medications: Active Medications Acetaminophen (Tylenol -) 650 mg PO Q6H PRN PRN Reason: PAIN Last Admin: 04/23/19 15:37 Dose: 650 mg Carvedilol (Coreg -) 25 mg PO BID [facility] Last Admin: 04/23/19 22:09 Dose: 25 mg Famotidine (Pepcid -) 20 mg PO DAILY [facility] Last Admin: 04/23/19 10:46 Dose: 20 mg Guaifenesin (Diabetic Tussin Dm -) 5 ml PO Q6H PRN PRN Reason: COUGH Hydralazine HCl (Apresoline -) 20 mg PO TID [facility] Last Admin: 04/24/19 07:18 Dose: 20 mg Insulin Aspart (Novolog Vial Sliding Scale -) 1 vial SQ [facility]; Protocol Last Admin: 04/24/19 07:18 Dose: 2 units Insulin Detemir (Levemir Vial) 10 units SQ [facility] Last Admin: 04/23/19 22:09 Dose: 10 unit Letrozole (Femara -) 2.5 mg PO DAILY [facility] Last Admin: 04/23/19 10:46 Dose: 2.5 mg Levothyroxine Sodium (Synthroid -) 112 mcg PO DAILY@0700 [facility] Last Admin: 04/24/19 07:18 Dose: 112 mcg Multivitamins/Minerals/Vitamin C (Tab-A-Vit -) 1 tab PO DAILY [facility] Last Admin: 04/23/19 10:45 Dose: 1 tab Polyethylene Glycol (Miralax (For Daily Use) -) 17 gm PO DAILY [facility] Pregabalin (Lyrica -) 25 mg PO DAILY [facility] Pregabalin (Lyrica -) 50 mg PO [facility] Last Admin: 04/23/19 22:25 Dose: Not Given - Objective Vital Signs: Vital Signs Temperature 97.5 F L 04/24/19 06:00 Pulse Rate 73 04/24/19 06:00 Respiratory Rate 18 04/24/19 06:00 Blood Pressure 135/49 L 04/24/19 06:00 O2 Sat by Pulse Oximetry (%) 97 04/23/19 21:00 Constitutional: Yes: No Distress Eyes: Yes: Other (conjunctival pallow) HENT: Yes: Atraumatic Neck: Yes: Supple Cardiovascular: Yes: Regular Rate and Rhythm Respiratory: Yes: Rales (bilaterally) Gastrointestinal: Yes: Soft. No: Tenderness, Tenderness, Rebound Extremities: Yes: Other (erythema resolved. no edema) Edema: No Neurological: Yes: Alert Labs: CBC, BMP 04/24/19 08:25 04/24/19 08:25 INR, PTT INR 1.01 (0.83-1.09) 04/08/19 22:30 Impression/Plan Impression/Plan: This is an 89 year old woman with a history of HTN, HLD, DM2, CVAs, hypothyroidism, GERD, breast cancer who presented to the ED with SOB. Acute on chronic diastolic heart failure lasix and metolazone being held in the setting of worsening creatinine continue coreg for now Cellulitis of legs resolved had multiple ABx administered during this hospitalization Acute kidney injury on CKD creatinine still 3.0m f/u nephrology BUN 122.2 down from 129.6 hold diuretics for now HTN BP acceptable at this time continue coreg and hydralazine ABIOLA/ARB being held Type 2 DM fingersticks acceptable Hypothyroidism Continue Synthroid GERD Continue Pepcid History of CVAs Aspirin held due to anemia History of breast cancer, lumpectomy and RT Continue Femara Anemia, macrocytic likely multiple causes contributing continue to onitor Hb 7.5 today hold chemical AC hold aspirin transfuse PRN Cough-non productive afebrile start robitussin (Diabetic) low threshold to get CXR and treat for HAP if spikes temp Constipation continue colace start miralax daily SCDs for DVT PPx ordered continue physical therapy Visit type - Emergency Visit Emergency Visit: Yes ED Registration Date: 04/08/19 Care time: The patient presented to the Emergency Department on the above date and was hospitalized for further evaluation of their emergent condition. - New Patient This patient is new to me today: Yes Date on this admission: 04/24/19 - Critical Care Critical Care patient: No
[2019-04-24 10:48] LABS: BLOOD UREA NITROGEN 122.2 mg/dL (7-18)
--- NOTE | 2019-04-24 10:50 | PN ---
Progress Note (short form) - Note Progress Note: Neurology CHIEF COMPLAINT: shortness of breath PCP: Dr. Salinas HISTORY OF PRESENT ILLNESS: 89 yo F PMH of HTN, HLD, Left breast cancer, Hypothyroidism, GERD, NIDDM and Multiple CVAs, recently admitted at [place] for bilateral LE cellulitis ( discharged 04/06/19) presented with shortness of breath on day of admission. pt stated that after she had dinner she became very short of breath and her granddaughter told her to come to the hospital. she stated that the last time she had a breathing problem she was in the hospital and it was after she finished eating. she stated it was short and improved with nasal oxygen. she stated she takes lasix 80 at home and is compliant with her medication. Consulted for severe sciatica pain on LLE. Per notes, she was already on Lyrica 50 mg twice a day but was complaining of shaking of her legs and her entire body. Per notes, she had rrequested reduction of the Lyrica and this was adjusted on the 25 mg twice a day. Now she feels suboptimal treatment of her neuropathyand had requested neurologist. In speaking with the patient, sheinformed me that during the daytime her symptoms are mmore than at nighttime. Therefore, I discussed adjusting her medication to 50 mg in the day but only 25 mg at nighttime and received call back from nurse that patient asked for 25mg in day and 50mg at bed, in agreement with this. Denies shaking this am, complains of fatigue and weakness, likely chronic. Active Medications Acetaminophen (Tylenol -) 650 mg PO Q6H PRN PRN Reason: PAIN Last Admin: 04/23/19 15:37 Dose: 650 mg Carvedilol (Coreg -) 25 mg PO BID [facility] Last Admin: 04/24/19 10:35 Dose: 25 mg Famotidine (Pepcid -) 20 mg PO DAILY [facility] Last Admin: 04/24/19 10:35 Dose: 20 mg Guaifenesin (Diabetic Tussin Dm -) 5 ml PO Q6H PRN PRN Reason: COUGH Hydralazine HCl (Apresoline -) 20 mg PO TID [facility] Last Admin: 04/24/19 07:18 Dose: 20 mg Insulin Aspart (Novolog Vial Sliding Scale -) 1 vial SQ [facility]S [facility]; Protocol Last Admin: 04/24/19 07:18 Dose: 2 units Insulin Detemir (Levemir Vial) 10 units SQ HS [facility] Last Admin: 04/23/19 22:09 Dose: 10 unit Letrozole (Femara -) 2.5 mg PO DAILY [facility] Last Admin: 04/24/19 10:36 Dose: 2.5 mg Levothyroxine Sodium (Synthroid -) 112 mcg PO DAILY@0700 [facility] Last Admin: 04/24/19 07:18 Dose: 112 mcg Multivitamins/Minerals/Vitamin C (Tab-A-Vit -) 1 tab PO DAILY [facility] Last Admin: 04/24/19 10:35 Dose: 1 tab Polyethylene Glycol (Miralax (For Daily Use) -) 17 gm PO DAILY [facility] Pregabalin (Lyrica -) 25 mg PO DAILY [facility] Last Admin: 04/24/19 10:35 Dose: 25 mg Pregabalin (Lyrica -) 50 mg PO HS [facility] Last Admin: 04/23/19 22:25 Dose: Not Given PHYSICAL EXAMINATION Vital Signs Period Temp Pulse Resp BP Sys/Hernandez Pulse Ox Last 24 Hr 97.5 F-98.6 F 68-76 18-20 114-141/49-57 97 GENERAL: Awake, alert, and fully oriented, in no acute distress. pt has conversational dyspnea . on 4L NC HEAD: Normal with no signs of trauma. EYES: Pupils equal, round and reactive to light, L pupil larger than R , extraocular movements intact, EARS, NOSE, THROAT: Ears normal, nares patent, oropharynx clear without exudates. Moist mucous membranes. NECK: Normal range of motion, supple without lymphadenopathy, JVD, or masses. LUNGS: Breath sounds equal, b/l crackles throughout. No accessory muscle use. HEART: Regular rate and rhythm, normal S1 and S2 without murmur, rub or gallop. ABDOMEN: Soft, tender to RUQ, distended, normoactive bowel sounds MUSCULOSKELETAL:No bony deformities or tenderness. No CVA tenderness. UPPER EXTREMITIES: 2+ pulses, warm, well-perfused. many ecchymosis b/l LOWER EXTREMITIES: 2+ pulses, warm, well-perfused. 2+ peripheral edema. erythema b/l NEUROLOGICAL: Cranial nerves II-XII intact. Normal speech. Reduced LT in lower extremities, finger-nose intact PSYCHIATRIC: Cooperative. Good eye contact. Appropriate mood and affect. CBCD WBC 18.1 K/mm3 (4.0-10.0) H 04/24/19 08:25 RBC 2.29 M/mm3 (3.60-5.2) L 04/24/19 08:25 Hgb 7.5 GM/dL (10.7-15.3) L 04/24/19 08:25 Hct 22.8 % (32.4-45.2) L 04/24/19 08:25 MCV 99.8 fl (80-96) H 04/24/19 08:25 MCHC 32.8 g/dl (32.0-36.0) 04/24/19 08:25 RDW 17.7 % (11.6-15.6) H 04/24/19 08:25 Plt Count 250 K/MM3 (134-434) 04/24/19 08:25 MPV 8.7 fl (7.5-11.1) 04/24/19 08:25 CMP Sodium 130 mmol/L (136-145) L 04/24/19 08:25 Potassium 3.6 mmol/L (3.5-5.1) 04/24/19 08:25 Chloride 93 mmol/L (98-107) L 04/24/19 08:25 Carbon Dioxide 26 mmol/L (21-32) 04/24/19 08:25 Anion Gap 11 MMOL/L (8-16) 04/24/19 08:25 BUN 122.2 mg/dL (7-18) H* 04/24/19 08:25 Creatinine 3.0 mg/dL (0.55-1.3) H 04/24/19 08:25 Random Glucose 199 mg/dL (74-106) H 04/24/19 08:25 Calcium 8.5 mg/dL (8.5-10.1) 04/24/19 08:25 Total Bilirubin 0.3 mg/dL (0.2-1) 04/24/19 08:25 AST 14 U/L (15-37) L 04/24/19 08:25 ALT 15 U/L (13-61) 04/24/19 08:25 Alkaline Phosphatase 114 U/L (45-117) 04/24/19 08:25 Total Protein 6.2 g/dl (6.4-8.2) L 04/24/19 08:25 Albumin 2.7 g/dl (3.4-5.0) L 04/24/19 08:25 CARDIAC ENZYMES Creatine Kinase 65 U/L (26-192) 04/08/19 22:30 Troponin I < 0.02 ng/ml (0.00-0.05) 04/15/19 07:58 ASSESSMENT/PLAN: 89 yo F PMH of HTN, HLD, Left breast cancer, Hypothyroidism, GERD, NIDDM and Multiple CVAs, recently admitted at [place] for bilateral LE cellulitis ( discharged 04/06/19) presented with shortness of breath on day of admission. pt stated that after she had dinner she became very short of breath and her granddaughter told her to come to the hospital. she stated that the last time she had a breathing problem she was in the hospital and it was after she finished eating. she stated it was short and improved with nasal oxygen. she stated she takes lasix 80 at home and is compliant with her medication. Consulted for severe sciatica pain on LLE. Per notes, she was already on Lyrica 50 mg twice a day but was complaining of shaking of her legs and her entire body. Per notes, she had rrequested reduction of the Lyrica and this was adjusted on the 25 mg twice a day. Now she feels suboptimal treatment of her neuropathyand had requested neurologist. In speaking with the patient, sheinformed me that during the daytime her symptoms are mmore than at nighttime. Therefore, I discussed adjusting her medication to 50 mg in the day but only 25 mg at nighttime. Therefore, I discussed adjusting her medication to 50 mg in the day but only 25 mg at nighttime and received call back from nurse that patient asked for 25mg in day and 50mg at bed, in agreement with this. Denies shaking this am, complains of fatigue and weakness, likely chronic. Tight glycemic control recommended as this can precipitate neuropathic symptoms monitor diabetes and glucose range. Physical therapy as tolerated, short term rehab if indicated. Fall precautions.
[2019-04-24] MEDS: POLYETHYLENE GLYCOL 3350 119 GM BTL PO SCH (11:19)
--- NOTE | 2019-04-24 12:10 | PN ---
Progress Note (short form) - Note Progress Note: s: sob and le edema better today. no cp palps dizzy Current Medications Generic Name Dose Route Start Last Admin Trade Name Freq PRN Reason Stop Dose Admin Acetaminophen 650 mg 04/11/19 13:59 04/23/19 15:37 Tylenol - PO 650 mg Q6H PRN Administration PAIN Carvedilol 25 mg 04/11/19 22:00 04/24/19 10:35 Coreg - PO 25 mg BID [facility] Administration Famotidine 20 mg 04/12/19 10:00 04/24/19 10:35 Pepcid - PO 20 mg DAILY [facility] Administration Guaifenesin 5 ml 04/24/19 10:30 Diabetic Tussin Dm - PO Q6H PRN COUGH Hydralazine HCl 20 mg 04/11/19 14:00 04/24/19 07:18 Apresoline - PO 20 mg TID [facility] Administration Insulin Aspart 1 vial 04/11/19 16:30 04/24/19 11:32 Novolog Vial Sliding Scale - SQ 8 units ACHS [facility] Administration Protocol Insulin Detemir 10 units 04/14/19 14:18 04/23/19 22:09 Levemir Vial SQ 10 unit HS [facility] Administration Letrozole 2.5 mg 04/12/19 10:00 04/24/19 10:36 Femara - PO 2.5 mg DAILY [facility] Administration Levothyroxine Sodium 112 mcg 04/12/19 07:00 04/24/19 07:18 Synthroid - PO 112 mcg DAILY@0700 [facility] Administration Multivitamins/Minerals/Vitamin C 1 tab 04/12/19 10:00 04/24/19 10:35 Tab-A-Vit - PO 1 tab DAILY [facility] Administration Polyethylene Glycol 17 gm 04/24/19 10:30 04/24/19 11:19 Miralax (For Daily Use) - PO Not Given DAILY [facility] Pregabalin 25 mg 04/24/19 10:00 04/24/19 10:35 Lyrica - PO 25 mg DAILY [facility] Administration Pregabalin 50 mg 04/23/19 22:00 04/23/19 22:25 Lyrica - PO Not Given HS [facility] Vital Signs Period Temp Pulse Resp BP Sys/Hernandez Pulse Ox Last 24 Hr 97.5 F-98.6 F 68-76 18-20 114-141/49-57 97 Constitutional: Yes: Well Nourished, No Distress, Calm Cardiovascular: Yes: Regular Rate and Rhythm, JVD, S1, S2. No: Gallop, Murmur Respiratory: Yes: Regular, CTA Bilaterally. No: Accessory Muscle Use, Rales, Wheezes Extremities: No: Cold Edema: trace le edema bl Neurological: Yes: Alert, Oriented Psychiatric: No: Agitated CBC, BMP 04/24/19 08:25 04/24/19 08:25 Assessment/Plan EKG: sinus,nl intervals, no ischemic changes CXR: + congestive changes echo 03/2019 nl LV function, mild MR, mild TR, PASP at least 49 mmHg acute diastolic heart failure exacerbation: - recent echo nl LV function, mild pulm HTN - CT chest bilat effusions and vascular congestion pattern, with + flank subcutaneous edema -vol status improved after iv lasix. bun/cr rising so now diuretics held. resume po lasix when cr stable. lower ext cellulitis: - manage per ID, primary HTN - cont current meds MAURICE on CKD: - monitor cr off diuretic for now - renal following cp: -resolved -ecg unremarkable -trop neg x2 -monitor for now
--- NOTE | 2019-04-24 14:46 | PN ---
Progress Note (short form) - Note Progress Note: PULMONARY States breathing is improving. No cough or chest pain. Vital Signs Period Temp Pulse Resp BP Sys/Hernandez Pulse Ox Last 24 Hr 97.5 F-98.6 F 68-76 18-20 114-135/49-53 97 Gen: NAD at rest Heart: RRR Lung: decreased breath sounds at the bases Abd: soft, nontender Ext: less edema CBC, BMP 04/24/19 08:25 04/24/19 08:25 Active Medications Acetaminophen (Tylenol -) 650 mg PO Q6H PRN PRN Reason: PAIN Last Admin: 04/23/19 15:37 Dose: 650 mg Carvedilol (Coreg -) 25 mg PO BID [facility] Last Admin: 04/24/19 10:35 Dose: 25 mg Famotidine (Pepcid -) 20 mg PO DAILY [facility] Last Admin: 04/24/19 10:35 Dose: 20 mg Guaifenesin (Diabetic Tussin Dm -) 5 ml PO Q6H PRN PRN Reason: COUGH Hydralazine HCl (Apresoline -) 20 mg PO TID [facility] Last Admin: 04/24/19 14:36 Dose: 20 mg Insulin Aspart (Novolog Vial Sliding Scale -) 1 vial SQ [facility]; Protocol Last Admin: 04/24/19 11:32 Dose: 8 units Insulin Detemir (Levemir Vial) 10 units SQ [facility] Last Admin: 04/23/19 22:09 Dose: 10 unit Letrozole (Femara -) 2.5 mg PO DAILY [facility] Last Admin: 04/24/19 10:36 Dose: 2.5 mg Levothyroxine Sodium (Synthroid -) 112 mcg PO DAILY@0700 [facility] Last Admin: 04/24/19 07:18 Dose: 112 mcg Multivitamins/Minerals/Vitamin C (Tab-A-Vit -) 1 tab PO DAILY [facility] Last Admin: 04/24/19 10:35 Dose: 1 tab Polyethylene Glycol (Miralax (For Daily Use) -) 17 gm PO DAILY [facility] Last Admin: 04/24/19 11:19 Dose: Not Given Pregabalin (Lyrica -) 25 mg PO DAILY [facility] Last Admin: 04/24/19 10:35 Dose: 25 mg Pregabalin (Lyrica -) 50 mg PO [facility] Last Admin: 04/23/19 22:25 Dose: Not Given A/P Acute on Chronic Diastolic Heart Failure Acute on Chronic Renal Failure Hyponatremia HTN DM Hyperlipidemia Hypothyroidism GERD h/o Breast Ca h/o CVA Anemia - lasix on hold due to azotemia - monitor urine output, creatinine - daily weights - monitor H/H - O2 to keep SpO2 >90% - monitor lytes - DVT prophylaxis
[2019-04-24 14:59] LABS: ANISOCYTOSIS 3+; MACROCYTOSIS 0; PLATELET ESTIMATE NORMAL; TEAR DROP CELLS 1+
[2019-04-24] MEDS: guaiFENesin/D-M SUGAR-FREE/ACLHOL-FREE 118 ML BOTTLE PO PRN (16:01)
--- NOTE | 2019-04-24 16:22 | PN ---
Progress Note, Physician History of Present Illness: No new complaints. No current distress noted. - Current Medication List Current Medications: Active Medications Acetaminophen (Tylenol -) 650 mg PO Q6H PRN PRN Reason: PAIN Last Admin: 04/23/19 15:37 Dose: 650 mg Carvedilol (Coreg -) 25 mg PO BID [facility] Last Admin: 04/24/19 10:35 Dose: 25 mg Famotidine (Pepcid -) 20 mg PO DAILY [facility] Last Admin: 04/24/19 10:35 Dose: 20 mg Guaifenesin (Diabetic Tussin Dm -) 5 ml PO Q6H PRN PRN Reason: COUGH Last Admin: 04/24/19 16:01 Dose: 5 ml Hydralazine HCl (Apresoline -) 20 mg PO TID [facility] Last Admin: 04/24/19 14:36 Dose: 20 mg Insulin Aspart (Novolog Vial Sliding Scale -) [address] [facility]; Protocol Last Admin: 04/24/19 11:32 Dose: 8 units Insulin Detemir (Levemir Vial) 10 units SQ [facility] Last Admin: 04/23/19 22:09 Dose: 10 unit Letrozole (Femara -) 2.5 mg PO DAILY [facility] Last Admin: 04/24/19 10:36 Dose: 2.5 mg Levothyroxine Sodium (Synthroid -) 112 mcg PO DAILY@0700 [facility] Last Admin: 04/24/19 07:18 Dose: 112 mcg Multivitamins/Minerals/Vitamin C (Tab-A-Vit -) 1 tab PO DAILY [facility] Last Admin: 04/24/19 10:35 Dose: 1 tab Polyethylene Glycol (Miralax (For Daily Use) -) 17 gm PO DAILY [facility] Last Admin: 04/24/19 11:19 Dose: Not Given Pregabalin (Lyrica -) 25 mg PO DAILY [facility] Last Admin: 04/24/19 10:35 Dose: 25 mg Pregabalin (Lyrica -) 50 mg PO HS [facility] Last Admin: 04/23/19 22:25 Dose: Not Given - Objective Vital Signs: Vital Signs Temperature 98.2 F 04/24/19 14:00 Pulse Rate 75 04/24/19 14:00 Respiratory Rate 20 04/24/19 14:00 Blood Pressure 136/64 04/24/19 14:00 O2 Sat by Pulse Oximetry (%) 97 01/17/20 21:00 Constitutional: Yes: No Distress Cardiovascular: Yes: Regular Rate and Rhythm Respiratory: Yes: Regular Gastrointestinal: Yes: Normal Bowel Sounds, Soft Edema: LLE: Trace, RLE: Trace Neurological: Yes: Alert Labs: CBC, BMP 04/24/19 08:25 04/24/19 08:25 INR, PTT INR 1.01 (0.83-1.09) 04/08/19 22:30 Microbiology 04/08/19 22:15 Blood - Peripheral Venous Blood Culture - Final NO GROWTH AFTER 5 DAYS INCUBATION 04/08/19 22:40 Blood - Peripheral Venous Blood Culture - Final NO GROWTH AFTER 5 DAYS INCUBATION 04/09/19 01:55 Urine - Urine Clean Catch Urine Culture - Final NO GROWTH OBTAINED Problem List - Problems (1) Acute diastolic (congestive) heart failure Code(s): I50.31 - ACUTE DIASTOLIC (CONGESTIVE) HEART FAILURE (2) Acute kidney injury superimposed on CKD Code(s): N17.9 - ACUTE KIDNEY FAILURE, UNSPECIFIED; N18.9 - CHRONIC KIDNEY DISEASE, UNSPECIFIED (3) Anemia Code(s): D64.9 - ANEMIA, UNSPECIFIED Qualifiers: Anemia type: unspecified type Qualified Code(s): D64.9 - Anemia, unspecified (4) Bilateral leg edema Code(s): R60.0 - LOCALIZED EDEMA (5) Hypothyroid Code(s): E03.9 - HYPOTHYROIDISM, UNSPECIFIED Qualifiers: Hypothyroidism type: unspecified Qualified Code(s): E03.9 - Hypothyroidism , unspecified (6) Shortness of breath Code(s): R06.02 - SHORTNESS OF BREATH (7) Breast cancer, left Code(s): C50.912 - MALIGNANT NEOPLASM OF UNSPECIFIED SITE OF LEFT FEMALE BREAST (8) Diabetes Code(s): E11.9 - TYPE 2 DIABETES MELLITUS WITHOUT COMPLICATIONS Qualifiers: Diabetes mellitus type: type 2 (9) GERD (gastroesophageal reflux disease) Code(s): K21.9 - GASTRO-ESOPHAGEAL REFLUX DISEASE WITHOUT ESOPHAGITIS (10) HTN (hypertension) Code(s): I10 - ESSENTIAL (PRIMARY) HYPERTENSION (11) History of CVA with residual deficit Code(s): I69.30 - UNSPECIFIED SEQUELAE OF CEREBRAL INFARCTION (12) Lower extremity cellulitis Code(s): L03.119 - CELLULITIS OF UNSPECIFIED PART OF LIMB Assessment/Plan b/l LE cellulitis Leukocytosis SOB b/l LE edema Acute diastolic HF Anemia Acute on chronic RF DM HTN Hx of Lt Breast CA Hypothyroidism Hx of CVAs -- s/p course of antibiotics -- wbc elevated/fluctuating, currently afebrile -- continue monitor
--- NOTE | 2019-04-24 18:19 | PN ---
Progress Note (short form) - Note Progress Note: 1. proteinuria 2. hypothyroid 3. HTN 4. DM 5. fluid overload 6. breast cancer 7. MAURICE 8. CKD Plan - cont to monitor renal function - restart lasix once renal function stabilizes - pt not eager to start HD, will observe over next few days - keep losartan on hold for now - check bladder scan, spoke to nurse - 2 gram sodium diet Current Medications Acetaminophen (Tylenol -) 650 mg PO Q6H PRN PRN Reason: PAIN Last Admin: 04/23/19 15:37 Dose: 650 mg Carvedilol (Coreg -) 25 mg PO BID [facility] Last Admin: 04/24/19 10:35 Dose: 25 mg Famotidine (Pepcid -) 20 mg PO DAILY [facility] Last Admin: 04/24/19 10:35 Dose: 20 mg Guaifenesin (Diabetic Tussin Dm -) 5 ml PO Q6H PRN PRN Reason: COUGH Last Admin: 04/24/19 16:01 Dose: 5 ml Hydralazine HCl (Apresoline -) 20 mg PO TID [facility] Last Admin: 04/24/19 14:36 Dose: 20 mg Insulin Aspart (Novolog Vial Sliding Scale -) 1 vial SQ [facility]; Protocol Last Admin: 04/24/19 17:29 Dose: 4 units Insulin Detemir (Levemir Vial) 10 units SQ [facility] Last Admin: 04/23/19 22:09 Dose: 10 unit Letrozole (Femara -) 2.5 mg PO DAILY [facility] Last Admin: 04/24/19 10:36 Dose: 2.5 mg Levothyroxine Sodium (Synthroid -) 112 mcg PO DAILY@0700 [facility] Last Admin: 04/24/19 07:18 Dose: 112 mcg Multivitamins/Minerals/Vitamin C (Tab-A-Vit -) 1 tab PO DAILY [facility] Last Admin: 04/24/19 10:35 Dose: 1 tab Polyethylene Glycol (Miralax (For Daily Use) -) 17 gm PO DAILY [facility] Last Admin: 04/24/19 11:19 Dose: Not Given Pregabalin (Lyrica -) 25 mg PO DAILY [facility] Last Admin: 04/24/19 10:35 Dose: 25 mg Pregabalin (Lyrica -) 50 mg PO HS [facility] Last Admin: 01/17/20 22:25 Dose: Not Given Last Vital Signs Temp Pulse Resp BP Pulse Ox 98.2 F 75 20 136/64 97 04/24/19 14:00 04/24/19 14:00 04/24/19 14:00 04/24/19 14:00 04/23/19 21:00 CBC, BMP 04/24/19 08:25 04/24/19 08:25
--- NOTE | 2019-04-24 18:23 | PN ---
Progress Note, Physician History of Present Illness: No complaints. No new events. Denies bleeding, fevers, pain. - Current Medication List Current Medications: Active Medications Acetaminophen (Tylenol -) 650 mg PO Q6H PRN PRN Reason: PAIN Last Admin: 04/23/19 15:37 Dose: 650 mg Carvedilol (Coreg -) 25 mg PO BID [facility] Last Admin: 04/24/19 10:35 Dose: 25 mg Famotidine (Pepcid -) 20 mg PO DAILY [facility] Last Admin: 04/24/19 10:35 Dose: 20 mg Guaifenesin (Diabetic Tussin Dm -) 5 ml PO Q6H PRN PRN Reason: COUGH Last Admin: 04/24/19 16:01 Dose: 5 ml Hydralazine HCl (Apresoline -) 20 mg PO TID [facility] Last Admin: 04/24/19 14:36 Dose: 20 mg Insulin Aspart (Novolog Vial Sliding Scale -) 1 vial SQ [facility]; Protocol Last Admin: 04/24/19 17:29 Dose: 4 units Insulin Detemir (Levemir Vial) 10 units SQ [facility] Last Admin: 04/23/19 22:09 Dose: 10 unit Letrozole (Femara -) 2.5 mg PO DAILY [facility] Last Admin: 04/24/19 10:36 Dose: 2.5 mg Levothyroxine Sodium (Synthroid -) 112 mcg PO DAILY@0700 [facility] Last Admin: 04/24/19 07:18 Dose: 112 mcg Multivitamins/Minerals/Vitamin C (Tab-A-Vit -) 1 tab PO DAILY [facility] Last Admin: 04/24/19 10:35 Dose: 1 tab Polyethylene Glycol (Miralax (For Daily Use) -) 17 gm PO DAILY [facility] Last Admin: 04/24/19 11:19 Dose: Not Given Pregabalin (Lyrica -) 25 mg PO DAILY [facility] Last Admin: 04/24/19 10:35 Dose: 25 mg Pregabalin (Lyrica -) 50 mg PO HS [facility] Last Admin: 04/23/19 22:25 Dose: Not Given - Objective Vital Signs: Vital Signs Temperature 98.2 F 04/24/19 14:00 Pulse Rate 75 04/24/19 14:00 Respiratory Rate 20 04/24/19 14:00 Blood Pressure 136/64 04/24/19 14:00 O2 Sat by Pulse Oximetry (%) 97 04/23/19 21:00 Constitutional: Yes: No Distress, Calm Eyes: Yes: Conjunctiva Clear Cardiovascular: Yes: Regular Rate and Rhythm Respiratory: Yes: Regular, CTA Bilaterally Gastrointestinal: Yes: Soft. No: Distention (e) Extremities: Yes: Other (scds in place) Labs: CBC, BMP 04/24/19 08:25 04/24/19 08:25 INR, PTT INR 1.01 (0.83-1.09) 04/08/19 22:30 Assessment/Plan 89F with HTN, HLD, Left breast cancer, Hypothyroidism, GERD, NIDDM and Multiple CVAs, recently admitted at [place] for bilateral LE cellulitis (discharged 04/06/19) admitted with SOB. Hematology consulted for anemia. Macrocytic anemia with leukocytosis, elevated monocytes. She did not receive chemotherapy for her prior breast cancer diagnosis, she mentioned only lumpectomy and radiation therapy. She follows with Dr. Kevin Estrada [phone], protective signal repairer. She mentioned received procrit and was supposed to be seen/ treated again but did not go due to D Please obtain full records from Dr. Estrada's office to learn her diagnosis and to determine need for further investigations (bone marrow evaluation, etc.). CBC stable.
[2019-04-25] MEDS: PREGABALIN 50 MG CAPSULE PO SCH ×3 (00:13→23:07)
[2019-04-25] MEDS: INSULIN (LEVEMIR) 100 UNITS/ML UNITS SQ SCH ×2 (00:13→23:43)
[2019-04-25] MEDS: hydrALAZINE HCL 10 MG TABLET PO SCH ×4 (00:13→23:42)
[2019-04-25] MEDS: CARVEDILOL 25 MG TABLET (FP) PO SCH ×4 (00:13→23:43)
[2019-04-25] MEDS: INSULIN SLIDING SCALE (NOVOLOG) 1 VIAL SQ SCH ×5 (00:16→23:43)
[2019-04-25] MEDS: LEVOTHYROXINE NA 112 MCG TABLET (FP) PO SCH (06:54)
[2019-04-25 08:54] LABS: EOS % 4.7 % (0-4.5); HEMATOCRIT 21.6 % (32.4-45.2); HEMOGLOBIN 7.2 GM/dL (10.7-15.3); LYMPH % 8.6 % (8-40); MCH 32.6 pg (25.7-33.7); MCHC 33.4 g/dl (32.0-36.0); MEAN CELL VOLUME 97.7 fl (80-96); MEAN PLT VOLUME 8.2 fl (7.5-11.1); MONO % 16.1 % (3.8-10.2); NEUT % 69.6 % (42.8-82.8); PLATELET COUNT 228 K/MM3 (134-434); RBC 2.21 M/mm3 (3.60-5.2); RDW 17.3 % (11.6-15.6); WHITE BLOOD COUNT 16.3 K/mm3 (4.0-10.0)
[2019-04-25] MEDS ORDERED: PT OWN MED DRAWER 7, Y5N ONE (09:15)
[2019-04-25] MEDS: MULTIVITAMINS (DAILY MVI) TABLET (FP) PO SCH (09:24)
[2019-04-25] MEDS: FAMOTIDINE 20 MG TABLET PO SCH (09:25)
[2019-04-25] MEDS: LETROZOLE 2.5 MG TABLET (FP) PO SCH (09:25)
[2019-04-25] MEDS: POLYETHYLENE GLYCOL 3350 119 GM BTL PO SCH (09:30)
[2019-04-25] MEDS: PREGABALIN 25 MG CAPSULE PO SCH (09:30)
[2019-04-25 09:38] LABS: CALCIUM 8.4 mg/dL (8.5-10.1); CREATININE 2.8 mg/dL (0.55-1.3); MAGNESIUM 2.9 mg/dL (1.8-2.4); POTASSIUM 3.6 mmol/L (3.5-5.1)
[2019-04-25 09:42] LABS: BLOOD UREA NITROGEN 122.5 mg/dL (7-18)
--- NOTE | 2019-04-25 10:31 | PN ---
Progress Note (short form) - Note Progress Note: s: sob and le edema better today. no cp palps dizzy Current Medications Generic Name Dose Route Start Last Admin Trade Name Freq PRN Reason Stop Dose Admin Acetaminophen 650 mg 04/11/19 13:59 04/23/19 15:37 Tylenol - PO 650 mg Q6H PRN Administration PAIN Carvedilol 25 mg 04/11/19 22:00 04/25/19 09:26 Coreg - PO Not Given BID [facility] Famotidine 20 mg 04/12/19 10:00 04/25/19 09:25 Pepcid - PO 20 mg DAILY [facility] Administration Guaifenesin 5 ml 04/24/19 10:30 04/24/19 16:01 Diabetic Tussin Dm - PO 5 ml Q6H PRN Administration COUGH Hydralazine HCl 20 mg 04/11/19 14:00 04/25/19 06:54 Apresoline - PO 20 mg TID [facility] Administration Insulin Aspart 1 vial 04/11/19 16:30 04/25/19 07:03 Novolog Vial Sliding Scale - SQ 2 units ACHS [facility] Administration Protocol Insulin Detemir 15 units 04/25/19 22:00 Levemir Vial SQ HS [facility] Letrozole 2.5 mg 04/12/19 10:00 04/25/19 09:25 Femara - PO 2.5 mg DAILY [facility] Administration Levothyroxine Sodium 112 mcg 04/12/19 07:00 04/25/19 06:54 Synthroid - PO 112 mcg DAILY@0700 [facility] Administration Multivitamins/Minerals/Vitamin C 1 tab 04/12/19 10:00 04/25/19 09:24 Tab-A-Vit - PO 1 tab DAILY [facility] Administration Polyethylene Glycol 17 gm 04/24/19 10:30 04/25/19 09:30 Miralax (For Daily Use) - PO Not Given DAILY [facility] Pregabalin 25 mg 04/24/19 10:00 04/25/19 09:30 Lyrica - PO Not Given DAILY [facility] Pregabalin 50 mg 04/23/19 22:00 04/25/19 00:13 Lyrica - PO Not Given HS [facility] Vital Signs Period Temp Pulse Resp BP Sys/Hernandez Pulse Ox Last 24 Hr 97.8 F-98.3 F 71-75 20-20 112-145/40-64 96 Constitutional: Yes: Well Nourished, No Distress, Calm Cardiovascular: Yes: Regular Rate and Rhythm, JVD, S1, S2. No: Gallop, Murmur Respiratory: Yes: Regular, CTA Bilaterally. No: Accessory Muscle Use, Rales, Wheezes Extremities: No: Cold Edema: trace le edema bl Neurological: Yes: Alert, Oriented Psychiatric: No: Agitated CBC, BMP 04/25/19 07:00 04/25/19 07:00 Assessment/Plan EKG: sinus,nl intervals, no ischemic changes CXR: + congestive changes echo 03/2019 nl LV function, mild MR, mild TR, PASP at least 49 mmHg acute diastolic heart failure exacerbation: - recent echo nl LV function, mild pulm HTN - CT chest bilat effusions and vascular congestion pattern, with + flank subcutaneous edema - vol status improved after iv lasix. bun/cr rising so now diuretics held. resume po lasix when cr stable. lower ext cellulitis: - manage per ID, primary HTN - cont current meds MAURICE on CKD: - monitor cr off diuretic for now - renal following cp: -resolved -ecg unremarkable -trop neg x2 -monitor for now
--- NOTE | 2019-04-25 10:59 | PN ---
Progress Note (short form) - Note Progress Note: Neurology CHIEF COMPLAINT: shortness of breath PCP: Dr. Salinas HISTORY OF PRESENT ILLNESS: 89 yo F PMH of HTN, HLD, Left breast cancer, Hypothyroidism, GERD, NIDDM and Multiple CVAs, recently admitted at [place] for bilateral LE cellulitis ( discharged 04/06/19) presented with shortness of breath on day of admission. pt stated that after she had dinner she became very short of breath and her granddaughter told her to come to the hospital. she stated that the last time she had a breathing problem she was in the hospital and it was after she finished eating. she stated it was short and improved with nasal oxygen. she stated she takes lasix 80 at home and is compliant with her medication. Consulted for severe sciatica pain on LLE. Per notes, she was already on Lyrica 50 mg twice a day but was complaining of shaking of her legs and her entire body. Per notes, she had rrequested reduction of the Lyrica and this was adjusted on the 25 mg twice a day. Now she feels suboptimal treatment of her neuropathyand had requested neurologist. In speaking with the patient, sheinformed me that during the daytime her symptoms are mmore than at nighttime. Therefore, I discussed adjusting her medication to 50 mg in the day but only 25 mg at nighttime and received call back from nurse that patient asked for 25mg in day and 50mg at bed, in agreement with this. Denies shaking this am, complains of fatigue and weakness, likely chronic. Seems to be tolerating medication regimen well and no acute events overnight. Can continue current regimen Lyrica. Active Medications Acetaminophen (Tylenol -) 650 mg PO Q6H PRN PRN Reason: PAIN Last Admin: 04/23/19 15:37 Dose: 650 mg Carvedilol (Coreg -) 25 mg PO BID [facility] Last Admin: 04/25/19 09:26 Dose: Not Given Famotidine (Pepcid -) 20 mg PO DAILY [facility] Last Admin: 04/25/19 09:25 Dose: 20 mg Guaifenesin (Diabetic Tussin Dm -) 5 ml PO Q6H PRN PRN Reason: COUGH Last Admin: 04/24/19 16:01 Dose: 5 ml Hydralazine HCl (Apresoline -) 20 mg PO TID [facility] Last Admin: 04/25/19 06:54 Dose: 20 mg Insulin Aspart (Novolog Vial Sliding Scale -) 1 vial SQ [facility]; Protocol Last Admin: 04/25/19 07:03 Dose: 2 units Insulin Detemir (Levemir Vial) 15 units SQ [facility] Letrozole (Femara -) 2.5 mg PO DAILY [facility] Last Admin: 04/25/19 09:25 Dose: 2.5 mg Levothyroxine Sodium (Synthroid -) 112 mcg PO DAILY@0700 [facility] Last Admin: 04/25/19 06:54 Dose: 112 mcg Multivitamins/Minerals/Vitamin C (Tab-A-Vit -) 1 tab PO DAILY [facility] Last Admin: 04/25/19 09:24 Dose: 1 tab Polyethylene Glycol (Miralax (For Daily Use) -) 17 gm PO DAILY [facility] Last Admin: 04/25/19 09:30 Dose: Not Given Pregabalin (Lyrica -) 25 mg PO DAILY [facility] Last Admin: 04/25/19 09:30 Dose: Not Given Pregabalin (Lyrica -) 50 mg PO [facility] Last Admin: 04/25/19 00:13 Dose: Not Given PHYSICAL EXAMINATION Vital Signs Period Temp Pulse Resp BP Sys/Hernandez Pulse Ox Last 24 Hr 97.8 F-98.3 F 71-75 20-20 112-145/40-64 96 GENERAL: Awake, alert, and fully oriented, in no acute distress. pt has conversational dyspnea . on 4L NC HEAD: Normal with no signs of trauma. EYES: Pupils equal, round and reactive to light, L pupil larger than R , extraocular movements intact, EARS, NOSE, THROAT: Ears normal, nares patent, oropharynx clear without exudates. Moist mucous membranes. NECK: Normal range of motion, supple without lymphadenopathy, JVD, or masses. LUNGS: Breath sounds equal, b/l crackles throughout. No accessory muscle use. HEART: Regular rate and rhythm, normal S1 and S2 without murmur, rub or gallop. ABDOMEN: Soft, tender to RUQ, distended, normoactive bowel sounds MUSCULOSKELETAL:No bony deformities or tenderness. No CVA tenderness. UPPER EXTREMITIES: 2+ pulses, warm, well-perfused. many ecchymosis b/l LOWER EXTREMITIES: 2+ pulses, warm, well-perfused. 2+ peripheral edema. erythema b/l NEUROLOGICAL: Cranial nerves II-XII intact. Normal speech. Reduced LT in lower extremities, finger-nose intact PSYCHIATRIC: Cooperative. Good eye contact. Appropriate mood and affect. CBCD WBC 16.3 K/mm3 (4.0-10.0) H 04/25/19 07:00 RBC 2.21 M/mm3 (3.60-5.2) L 04/25/19 07:00 Hgb 7.2 GM/dL (10.7-15.3) L 04/25/19 07:00 Hct 21.6 % (32.4-45.2) L 04/25/19 07:00 MCV 97.7 fl (80-96) H 04/25/19 07:00 MCHC 33.4 g/dl (32.0-36.0) 04/25/19 07:00 RDW 17.3 % (11.6-15.6) H 04/25/19 07:00 Plt Count 228 K/MM3 (134-434) 04/25/19 07:00 MPV 8.2 fl (7.5-11.1) 04/25/19 07:00 CMP Sodium 131 mmol/L (136-145) L 04/25/19 07:00 Potassium 3.6 mmol/L (3.5-5.1) 04/25/19 07:00 Chloride 95 mmol/L (98-107) L 04/25/19 07:00 Carbon Dioxide 25 mmol/L (21-32) 04/25/19 07:00 Anion Gap 11 MMOL/L (8-16) 04/25/19 07:00 BUN 122.5 mg/dL (7-18) H* 04/25/19 07:00 Creatinine 2.8 mg/dL (0.55-1.3) H 04/25/19 07:00 Random Glucose 193 mg/dL (74-106) H 04/25/19 07:00 Calcium 8.4 mg/dL (8.5-10.1) L 04/25/19 07:00 Total Bilirubin 0.3 mg/dL (0.2-1) 04/24/19 08:25 AST 14 U/L (15-37) L 04/24/19 08:25 ALT 15 U/L (13-61) 04/24/19 08:25 Alkaline Phosphatase 114 U/L (45-117) 04/24/19 08:25 Total Protein 6.2 g/dl (6.4-8.2) L 04/24/19 08:25 Albumin 2.7 g/dl (3.4-5.0) L 04/24/19 08:25 CARDIAC ENZYMES Creatine Kinase 65 U/L (26-192) 04/08/19 22:30 Troponin I < 0.02 ng/ml (0.00-0.05) 04/15/19 07:58 ASSESSMENT/PLAN: 89 yo F PMH of HTN, HLD, Left breast cancer, Hypothyroidism, GERD, NIDDM and Multiple CVAs, recently admitted at [place] for bilateral LE cellulitis ( discharged 04/06/19) presented with shortness of breath on day of admission. pt stated that after she had dinner she became very short of breath and her granddaughter told her to come to the hospital. she stated that the last time she had a breathing problem she was in the hospital and it was after she finished eating. she stated it was short and improved with nasal oxygen. she stated she takes lasix 80 at home and is compliant with her medication. Consulted for severe sciatica pain on LLE. Per notes, she was already on Lyrica 50 mg twice a day but was complaining of shaking of her legs and her entire body. Per notes, she had rrequested reduction of the Lyrica and this was adjusted on the 25 mg twice a day. Now she feels suboptimal treatment of her neuropathyand had requested neurologist. In speaking with the patient, sheinformed me that during the daytime her symptoms are mmore than at nighttime. Therefore, I discussed adjusting her medication to 50 mg in the day but only 25 mg at nighttime. Therefore, I discussed adjusting her medication to 50 mg in the day but only 25 mg at nighttime and received call back from nurse that patient asked for 25mg in day and 50mg at bed, in agreement with this. Denies shaking this am, complains of fatigue and weakness, likely chronic. Seems to be tolerating medication regimen well and no acute events overnight. Can continue current regimen Lyrica. Tight glycemic control recommended as this can precipitate neuropathic symptoms monitor diabetes and glucose range. Physical therapy as tolerated, short term rehab if indicated. Fall precautions.
[2019-04-25] MEDS ORDERED: POLYETHYLENE GLYCOL 3350 119 GM BTL PO PRN (11:41)
--- NOTE | 2019-04-25 11:41 | PN ---
Progress Note, Physician History of Present Illness: seen and examined at bedside. No events overnight. endorses cough which is non productive and improved slightly from yesterday. Denies nausea vomiting fever chills chest pain SOB. started bowel regimen yesterday and patient had 3 BMs since. Afebrile. Creatinine unchanged at 2.8. - Current Medication List Current Medications: Active Medications Acetaminophen (Tylenol -) 650 mg PO Q6H PRN PRN Reason: PAIN Last Admin: 04/23/19 15:37 Dose: 650 mg Carvedilol (Coreg -) 25 mg PO BID [facility] Last Admin: 04/25/19 09:26 Dose: Not Given Famotidine (Pepcid -) 20 mg PO DAILY [facility] Last Admin: 04/25/19 09:25 Dose: 20 mg Guaifenesin (Diabetic Tussin Dm -) 5 ml PO Q6H PRN PRN Reason: COUGH Last Admin: 04/24/19 16:01 Dose: 5 ml Hydralazine HCl (Apresoline -) 20 mg PO TID [facility] Last Admin: 04/25/19 06:54 Dose: 20 mg Insulin Aspart (Novolog Vial Sliding Scale -) 1 vial SQ [facility]; Protocol Last Admin: 04/25/19 07:03 Dose: 2 units Insulin Detemir (Levemir Vial) 15 units SQ [facility] Letrozole (Femara -) 2.5 mg PO DAILY [facility] Last Admin: 04/25/19 09:25 Dose: 2.5 mg Levothyroxine Sodium (Synthroid -) 112 mcg PO DAILY@0700 [facility] Last Admin: 04/25/19 06:54 Dose: 112 mcg Multivitamins/Minerals/Vitamin C (Tab-A-Vit -) 1 tab PO DAILY [facility] Last Admin: 04/25/19 09:24 Dose: 1 tab Polyethylene Glycol (Miralax (For Daily Use) -) 17 gm PO DAILY [facility] Last Admin: 04/25/19 09:30 Dose: Not Given Pregabalin (Lyrica -) 25 mg PO DAILY [facility] Last Admin: 04/25/19 09:30 Dose: Not Given Pregabalin (Lyrica -) 50 mg PO [facility] Last Admin: 04/25/19 00:13 Dose: Not Given - Objective Vital Signs: Vital Signs Temperature 98.3 F 04/25/19 09:27 Pulse Rate 73 04/25/19 09:27 Respiratory Rate 20 04/25/19 09:27 Blood Pressure 112/40 L 04/25/19 09:27 O2 Sat by Pulse Oximetry (%) 96 04/24/19 21:00 Constitutional: Yes: No Distress Eyes: Yes: Other (conjunctival pallor present) HENT: Yes: Atraumatic Neck: Yes: Supple Cardiovascular: Yes: Regular Rate and Rhythm Respiratory: Yes: Rales (bilaterally but less so than yesterday) Gastrointestinal: Yes: Soft. No: Tenderness, Tenderness, Rebound Extremities: Yes: Other (erythema resolved. no edema) Edema: No Neurological: Yes: Alert Labs: CBC, BMP 04/25/19 07:00 04/25/19 07:00 INR, PTT INR 1.01 (0.83-1.09) 04/08/19 22:30 Impression/Plan Impression/Plan: This is an 89 year old woman with a history of HTN, HLD, DM2, CVAs, hypothyroidism, GERD, breast cancer who presented to the ED with SOB. Acute on chronic diastolic heart failure lasix and metolazone being held in the setting of worsening creatinine continue coreg for now currently not overloaded clinically Cellulitis of legs resolved had multiple ABx administered during this hospitalization off ABx Acute kidney injury on CKD creatinine 2.8 and around her baseline f/u nephrology BUN 122.5 essentially unchanged from yesterday hold diuretics for now HTN BP acceptable at this time continue coreg and hydralazine ABIOLA/ARB being held Type 2 DM fingersticks acceptable Hypothyroidism Continue Synthroid GERD Continue Pepcid History of CVAs Aspirin held due to anemia History of breast cancer, lumpectomy and RT Continue Femara Anemia, macrocytic likely multiple causes contributing continue to monitor Hb 7.2 today hold chemical AC hold aspirin transfuse PRN Hb <7.0 Cough-non productive afebrile continue robitussin (Diabetic) low threshold to get CXR and treat for HAP if spikes temp Constipation Resolved after starting miralax yesterday and had 3 BM since continue colace Miralax daily but change to PRN now that she is having BMs SCDs for DVT PPx ordered continue physical therapy Visit type - Emergency Visit Emergency Visit: Yes ED Registration Date: 04/08/19 Care time: The patient presented to the Emergency Department on the above date and was hospitalized for further evaluation of their emergent condition. - New Patient This patient is new to me today: No - Critical Care Critical Care patient: No
[2019-04-25] MEDS ORDERED: INSULIN (NOVOLOG) ASPART 100 UNITS/ML 10ML VIAL ONE (11:43)
[2019-04-25 12:45] LABS: ANISOCYTOSIS 1+; MACROCYTOSIS 0; OVALOCYTE 1+; PLATELET ESTIMATE NORMAL
--- NOTE | 2019-04-25 13:24 | PN ---
Progress Note (short form) - Note Progress Note: PULMONARY States breathing is improving. +nonproductive cough. Vital Signs Period Temp Pulse Resp BP Sys/Hernandez Pulse Ox Last 24 Hr 97.8 F-98.3 F 71-75 20-20 112-146/40-64 96 Gen: NAD at rest Heart: RRR Lung: decreased breath sounds at the bases Abd: soft, nontender Ext: less edema CBC, BMP 04/25/19 07:00 04/25/19 07:00 Active Medications Acetaminophen (Tylenol -) 650 mg PO Q6H PRN PRN Reason: PAIN Last Admin: 04/23/19 15:37 Dose: 650 mg Albuterol/Ipratropium (Duoneb -) 1 amp NEB RTID [facility] Carvedilol (Coreg -) 25 mg PO BID [facility] Last Admin: 04/25/19 11:47 Dose: 25 mg Famotidine (Pepcid -) 20 mg PO DAILY [facility] Last Admin: 04/25/19 09:25 Dose: 20 mg Guaifenesin (Diabetic Tussin Dm -) 5 ml PO Q6H PRN PRN Reason: COUGH Last Admin: 04/24/19 16:01 Dose: 5 ml Hydralazine HCl (Apresoline -) 20 mg PO TID [facility] Last Admin: 04/25/19 06:54 Dose: 20 mg Insulin Aspart (Novolog Vial Sliding Scale -) 1 vial SQ [facility]; Protocol Last Admin: 04/25/19 11:46 Dose: 6 units Insulin Detemir (Levemir Vial) 15 units SQ [facility] Letrozole (Femara -) 2.5 mg PO DAILY [facility] Last Admin: 04/25/19 09:25 Dose: 2.5 mg Levothyroxine Sodium (Synthroid -) 112 mcg PO DAILY@0700 [facility] Last Admin: 04/25/19 06:54 Dose: 112 mcg Multivitamins/Minerals/Vitamin C (Tab-A-Vit -) 1 tab PO DAILY [facility] Last Admin: 04/25/19 09:24 Dose: 1 tab Polyethylene Glycol (Miralax (For Daily Use) -) 17 gm PO DAILY PRN PRN Reason: CONSTIPATION Pregabalin (Lyrica -) 25 mg PO DAILY [facility] Last Admin: 04/25/19 09:30 Dose: Not Given Pregabalin (Lyrica -) 50 mg PO [facility] Last Admin: 04/25/19 00:13 Dose: Not Given A/P Acute on Chronic Diastolic Heart Failure Acute on Chronic Renal Failure Hyponatremia HTN DM Hyperlipidemia Hypothyroidism GERD h/o Breast Ca h/o CVA Anemia - lasix on hold due to azotemia - monitor urine output, creatinine - daily weights - monitor H/H - O2 to keep SpO2 >90% - inhaled bronchodilators - monitor lytes - DVT prophylaxis
[2019-04-25] MEDS ORDERED: ALBUTEROL SO4 2.5/IPRATROPIUM 0.5 INH SOL 3 ML VIAL.NEB. NEB SCH (14:00)
--- NOTE | 2019-04-25 18:51 | PN ---
Progress Note, Physician History of Present Illness: Pt states she is breathing without much difficulty. Remains afebrile, without distress. - Current Medication List Current Medications: Active Medications Acetaminophen (Tylenol -) 650 mg PO Q6H PRN PRN Reason: PAIN Last Admin: 04/23/19 15:37 Dose: 650 mg Carvedilol (Coreg -) 25 mg PO BID [facility] Last Admin: 04/25/19 11:47 Dose: 25 mg Famotidine (Pepcid -) 20 mg PO DAILY [facility] Last Admin: 04/25/19 09:25 Dose: 20 mg Guaifenesin (Diabetic Tussin Dm -) 5 ml PO Q6H PRN PRN Reason: COUGH Last Admin: 04/24/19 16:01 Dose: 5 ml Hydralazine HCl (Apresoline -) 20 mg PO TID [facility] Last Admin: 04/25/19 14:44 Dose: 20 mg Insulin Aspart (Novolog Vial Sliding Scale -) [address] [facility]; Protocol Last Admin: 04/25/19 17:37 Dose: 2 units Insulin Detemir (Levemir Vial) 15 units SQ [facility] Ipratropium [place] (Atrovent 0.02% Nebulizer -) 1 amp NEB RTID [facility] Letrozole (Femara -) 2.5 mg PO DAILY [facility] Last Admin: 04/25/19 09:25 Dose: 2.5 mg Levothyroxine Sodium (Synthroid -) 112 mcg PO DAILY@0700 [facility] Last Admin: 04/25/19 06:54 Dose: 112 mcg Multivitamins/Minerals/Vitamin C (Tab-A-Vit -) 1 tab PO DAILY [facility] Last Admin: 04/25/19 09:24 Dose: 1 tab Polyethylene Glycol (Miralax (For Daily Use) -) 17 gm PO DAILY PRN PRN Reason: CONSTIPATION Pregabalin (Lyrica -) 25 mg PO DAILY [facility] Last Admin: 04/25/19 09:30 Dose: Not Given Pregabalin (Lyrica -) 50 mg PO HS [facility] Last Admin: 04/25/19 00:13 Dose: Not Given - Objective Vital Signs: Vital Signs Temperature 97.8 F 04/25/19 14:00 Pulse Rate 71 04/25/19 14:38 Respiratory Rate 20 04/25/19 14:38 Blood Pressure 125/46 L 04/25/19 14:38 O2 Sat by Pulse Oximetry (%) 96 04/24/19 21:00 Constitutional: Yes: No Distress, Calm Cardiovascular: Yes: Regular Rate and Rhythm Respiratory: Yes: Diminished Gastrointestinal: Yes: Normal Bowel Sounds, Soft Extremities: Yes: Other (SCDs b/l) Neurological: Yes: Alert Labs: CBC, BMP 04/25/19 07:00 04/25/19 07:00 INR, PTT INR 1.01 (0.83-1.09) 04/08/19 22:30 Microbiology 04/08/19 22:15 Blood - Peripheral Venous Blood Culture - Final NO GROWTH AFTER 5 DAYS INCUBATION 04/08/19 22:40 Blood - Peripheral Venous Blood Culture - Final NO GROWTH AFTER 5 DAYS INCUBATION 04/09/19 01:55 Urine - Urine Clean Catch Urine Culture - Final NO GROWTH OBTAINED Problem List - Problems (1) Acute diastolic (congestive) heart failure Code(s): I50.31 - ACUTE DIASTOLIC (CONGESTIVE) HEART FAILURE (2) Acute kidney injury superimposed on CKD Code(s): N17.9 - ACUTE KIDNEY FAILURE, UNSPECIFIED; N18.9 - CHRONIC KIDNEY DISEASE, UNSPECIFIED (3) Anemia Code(s): D64.9 - ANEMIA, UNSPECIFIED Qualifiers: Anemia type: unspecified type Qualified Code(s): D64.9 - Anemia, unspecified (4) Bilateral leg edema Code(s): R60.0 - LOCALIZED EDEMA (5) Hypothyroid Code(s): E03.9 - HYPOTHYROIDISM, UNSPECIFIED Qualifiers: Hypothyroidism type: unspecified Qualified Code(s): E03.9 - Hypothyroidism , unspecified (6) Shortness of breath Code(s): R06.02 - SHORTNESS OF BREATH (7) Breast cancer, left Code(s): C50.912 - MALIGNANT NEOPLASM OF UNSPECIFIED SITE OF LEFT FEMALE BREAST (8) Diabetes Code(s): E11.9 - TYPE 2 DIABETES MELLITUS WITHOUT COMPLICATIONS Qualifiers: Diabetes mellitus type: type 2 (9) GERD (gastroesophageal reflux disease) Code(s): K21.9 - GASTRO-ESOPHAGEAL REFLUX DISEASE WITHOUT ESOPHAGITIS (10) HTN (hypertension) Code(s): I10 - ESSENTIAL (PRIMARY) HYPERTENSION (11) History of CVA with residual deficit Code(s): I69.30 - UNSPECIFIED SEQUELAE OF CEREBRAL INFARCTION (12) Lower extremity cellulitis Code(s): L03.119 - CELLULITIS OF UNSPECIFIED PART OF LIMB Assessment/Plan b/l LE cellulitis - improved Leukocytosis SOB b/l LE edema Acute diastolic HF Anemia Acute on chronic RF DM HTN Hx of Lt Breast CA Hypothyroidism Hx of CVAs -- s/p course of antibiotics -- wbc elevated/fluctuating, Heme/Onc evaluating -- currently afebrile/stable -- continue monitor
--- NOTE | 2019-04-25 20:44 | PN ---
Progress Note (short form) - Note Progress Note: 1. proteinuria 2. hypothyroid 3. HTN 4. DM 5. fluid overload 6. breast cancer 7. MAURICE 8. CKD Current Medications Acetaminophen (Tylenol -) 650 mg PO Q6H PRN PRN Reason: PAIN Last Admin: 04/23/19 15:37 Dose: 650 mg Carvedilol (Coreg -) 25 mg PO BID [facility] Last Admin: 04/25/19 11:47 Dose: 25 mg Famotidine (Pepcid -) 20 mg PO DAILY [facility] Last Admin: 04/25/19 09:25 Dose: 20 mg Guaifenesin (Diabetic Tussin Dm -) 5 ml PO Q6H PRN PRN Reason: COUGH Last Admin: 04/24/19 16:01 Dose: 5 ml Hydralazine HCl (Apresoline -) 20 mg PO TID [facility] Last Admin: 04/25/19 14:44 Dose: 20 mg Insulin Aspart (Novolog Vial Sliding Scale -) 1 vial SQ [facility]; Protocol Last Admin: 04/25/19 17:37 Dose: 2 units Insulin Detemir (Levemir Vial) 15 units SQ [facility] Ipratropium [place] (Atrovent 0.02% Nebulizer -) 1 amp NEB RTID [facility] Letrozole (Femara -) 2.5 mg PO DAILY [facility] Last Admin: 04/25/19 09:25 Dose: 2.5 mg Levothyroxine Sodium (Synthroid -) 112 mcg PO DAILY@0700 [facility] Last Admin: 04/25/19 06:54 Dose: 112 mcg Multivitamins/Minerals/Vitamin C (Tab-A-Vit -) 1 tab PO DAILY [facility] Last Admin: 04/25/19 09:24 Dose: 1 tab Polyethylene Glycol (Miralax (For Daily Use) -) 17 gm PO DAILY PRN PRN Reason: CONSTIPATION Pregabalin (Lyrica -) 25 mg PO DAILY [facility] Last Admin: 04/25/19 09:30 Dose: Not Given Pregabalin (Lyrica -) 50 mg PO HS [facility] Last Admin: 04/25/19 00:13 Dose: Not Given Last Vital Signs Temp Pulse Resp BP Pulse Ox 97.9 F 84 20 135/55 L 96 04/25/19 18:00 04/25/19 18:00 04/25/19 18:00 04/25/19 18:00 04/24/19 21:00 lungs clear heart RRR Abd soft nontender Ext no edema CBC, BMP 04/25/19 07:00 04/25/19 07:00 CBC, BMP 04/24/19 08:25 04/24/19 08:25 IMP maurice ckd renal function stable
--- NOTE | 2019-04-25 21:08 | PN ---
Progress Note, Physician History of Present Illness: Sleepy. No complaints. - Current Medication List Current Medications: Active Medications Acetaminophen (Tylenol -) 650 mg PO Q6H PRN PRN Reason: PAIN Last Admin: 04/23/19 15:37 Dose: 650 mg Carvedilol (Coreg -) 25 mg PO BID [facility] Last Admin: 04/25/19 11:47 Dose: 25 mg Famotidine (Pepcid -) 20 mg PO DAILY [facility] Last Admin: 04/25/19 09:25 Dose: 20 mg Guaifenesin (Diabetic Tussin Dm -) 5 ml PO Q6H PRN PRN Reason: COUGH Last Admin: 04/24/19 16:01 Dose: 5 ml Hydralazine HCl (Apresoline -) 20 mg PO TID [facility] Last Admin: 04/25/19 14:44 Dose: 20 mg Insulin Aspart (Novolog Vial Sliding Scale -) 1 vial SQ [facility]; Protocol Last Admin: 04/25/19 17:37 Dose: 2 units Insulin Detemir (Levemir Vial) 15 units SQ [facility] Ipratropium [place] (Atrovent 0.02% Nebulizer -) 1 amp NEB RTID [facility] Letrozole (Femara -) 2.5 mg PO DAILY [facility] Last Admin: 04/25/19 09:25 Dose: 2.5 mg Levothyroxine Sodium (Synthroid -) 112 mcg PO DAILY@0700 [facility] Last Admin: 04/25/19 06:54 Dose: 112 mcg Multivitamins/Minerals/Vitamin C (Tab-A-Vit -) 1 tab PO DAILY [facility] Last Admin: 04/25/19 09:24 Dose: 1 tab Polyethylene Glycol (Miralax (For Daily Use) -) 17 gm PO DAILY PRN PRN Reason: CONSTIPATION Pregabalin (Lyrica -) 25 mg PO DAILY [facility] Last Admin: 04/25/19 09:30 Dose: Not Given Pregabalin (Lyrica -) 50 mg PO HS [facility] Last Admin: 04/25/19 00:13 Dose: Not Given - Objective Vital Signs: Vital Signs Temperature 97.9 F 04/25/19 18:00 Pulse Rate 84 04/25/19 18:00 Respiratory Rate 20 04/25/19 18:00 Blood Pressure 135/55 L 04/25/19 18:00 O2 Sat by Pulse Oximetry (%) 96 04/24/19 21:00 Constitutional: Yes: No Distress, Calm Eyes: Yes: Conjunctiva Clear Respiratory: Yes: Regular, CTA Bilaterally Gastrointestinal: Yes: Soft. No: Distention, Tenderness Edema: No Labs: CBC, BMP 04/25/19 07:00 04/25/19 07:00 INR, PTT INR 1.01 (0.83-1.09) 04/08/19 22:30 Assessment/Plan 89F with HTN, HLD, Left breast cancer, Hypothyroidism, GERD, NIDDM and Multiple CVAs, recently admitted at [place] for bilateral LE cellulitis (discharged 04/06/19) admitted with SOB. Hematology consulted for anemia. Macrocytic anemia with leukocytosis, elevated monocytes. She did not receive chemotherapy for her prior breast cancer diagnosis, she mentioned only lumpectomy and radiation therapy. 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 She mentioned received procrit and was supposed to be seen/ treated again but did not go due to D Please obtain full records from Dr. Estrada's office to learn her diagnosis and to determine need for further investigations (bone marrow evaluation, etc.). CBC stable.
[2019-04-25] MEDS: IPRATROPIUM BR 0.02% 0.5 MG/2.5 ML VIAL.NEB. NEB SCH (21:40)
[2019-04-26] MEDS ORDERED: PT OWN MED DRAWER 7, Y5N ONE (03:47)
[2019-04-26] MEDS: hydrALAZINE HCL 10 MG TABLET PO SCH ×3 (06:35→21:54)
[2019-04-26] MEDS: LEVOTHYROXINE NA 112 MCG TABLET (FP) PO SCH (06:36)
[2019-04-26] MEDS: INSULIN SLIDING SCALE (NOVOLOG) 1 VIAL SQ SCH ×4 (06:39→21:54)
[2019-04-26] MEDS: IPRATROPIUM BR 0.02% 0.5 MG/2.5 ML VIAL.NEB. NEB SCH ×3 (07:35→21:00)
--- NOTE | 2019-04-26 08:21 | PN ---
Teaching Attending Note Name of Resident: Low Noble ATTENDING PHYSICIAN STATEMENT I saw and evaluated the patient. I reviewed the resident's note and discussed the case with the resident. I agree with the resident's findings and plan as documented. SUBJECTIVE: Still complained of respiratory pain OBJECTIVE: Vital Signs Temperature 98.8 F 04/26/19 06:00 Pulse Rate 73 04/26/19 06:00 Respiratory Rate 20 04/26/19 06:00 Blood Pressure 140/69 04/26/19 06:00 O2 Sat by Pulse Oximetry (%) 96 04/25/19 10:05 General: Elderly woman, comfortable, not in distress HEENT; mucous membranes moist, no anemia, no jaundice, PERRLA, no nystagmus Neck: No JVD, supple, no bruit, thyroid palpably normal, normal carotid pulsations. Chest: Nontender, clear to auscultation CVS: S1-S2 regular no murmur/gallop/rub Abdomen: Nondistended, soft, bowel sounds present. Extremities: + edema., Venous congestion no CALFD tenderness, pulses present MDM SR: AO X3 , no gross motor sensory deficit CBC, BMP 04/25/19 07:00 04/25/19 07:00 Active Medications Acetaminophen (Tylenol -) 650 mg PO Q6H PRN PRN Reason: PAIN Last Admin: 04/23/19 15:37 Dose: 650 mg Carvedilol (Coreg -) 25 mg PO BID [facility] Last Admin: 04/25/19 23:43 Dose: 25 mg Famotidine (Pepcid -) 20 mg PO DAILY [facility] Last Admin: 04/25/19 09:25 Dose: 20 mg Guaifenesin (Diabetic Tussin Dm -) 5 ml PO Q6H PRN PRN Reason: COUGH Last Admin: 04/24/19 16:01 Dose: 5 ml Hydralazine HCl (Apresoline -) 20 mg PO TID [facility] Last Admin: 04/26/19 06:35 Dose: 20 mg Insulin Aspart (Novolog Vial Sliding Scale -) 1 vial SQ [facility]; Protocol Last Admin: 04/26/19 06:39 Dose: 2 units Insulin Detemir (Levemir Vial) 15 units SQ HS [facility] Last Admin: 04/25/19 23:43 Dose: 15 units Ipratropium [place] (Atrovent 0.02% Nebulizer -) 1 amp NEB RTID [facility] Last Admin: 04/26/19 07:35 Dose: 1 amp Letrozole (Femara -) 2.5 mg PO DAILY [facility] Last Admin: 04/25/19 09:25 Dose: 2.5 mg Levothyroxine Sodium (Synthroid -) 112 mcg PO DAILY@0700 [facility] Last Admin: 04/26/19 06:36 Dose: 112 mcg Multivitamins/Minerals/Vitamin C (Tab-A-Vit -) 1 tab PO DAILY [facility] Last Admin: 04/25/19 09:24 Dose: 1 tab Polyethylene Glycol (Miralax (For Daily Use) -) 17 gm PO DAILY PRN PRN Reason: CONSTIPATION Pregabalin (Lyrica -) 25 mg PO DAILY [facility] Last Admin: 04/25/19 09:30 Dose: Not Given Pregabalin (Lyrica -) 50 mg PO HS [facility] Last Admin: 04/25/19 23:07 Dose: Not Given ASSESSMENT AND PLAN:89F with HTN, HLD, Left breast cancer, Hypothyroidism, GERD , NIDDM and Multiple CVAs, recently admitted at [place] for bilateral LE cellulitis (discharged 04/06/19) admitted with SOB. 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 Problems reviewed: Yes Code(s): D64.9 - ANEMIA, UNSPECIFIED Qualifiers: Anemia type: unspecified type Qualified Code(s): D64.9 - Anemia, unspecified (3) Acute kidney injury superimposed on CKD Assessment/Plan: Due to diuretics or cardiorenal syndrome rising BUN/creatinine diuretics on hold follow-up renal recommendations. Problems reviewed: Yes Code(s): N17.9 - ACUTE KIDNEY FAILURE, UNSPECIFIED; N18.9 - CHRONIC KIDNEY DISEASE, UNSPECIFIED (4) Diabetes Assessment/Plan: Optimize glycemic control Problems reviewed: Yes Code(s): E11.9 - TYPE 2 DIABETES MELLITUS WITHOUT COMPLICATIONS Qualifiers: Diabetes mellitus type: type 2 (5) Hypothyroid Assessment/Plan: Continue levothyroxine Problems reviewed: Yes Code(s): E03.9 - HYPOTHYROIDISM, UNSPECIFIED Qualifiers: Hypothyroidism type: unspecified Qualified Code(s): E03.9 - Hypothyroidism , unspecified (6) HTN (hypertension) Assessment/Plan: Well-controlled continue all home medication Problems reviewed: Yes Code(s): I10 - ESSENTIAL (PRIMARY) HYPERTENSION (7) Shortness of breath Assessment/Plan: Improving on current management follow-up pulmonary recommendations Problems reviewed: Yes Code(s): R06.02 - SHORTNESS OF BREATH
[2019-04-26 09:07] LABS: BASO % 0.7 % (0-2.0); EOS % 3.9 % (0-4.5); HEMATOCRIT 22.1 % (32.4-45.2); HEMOGLOBIN 7.4 GM/dL (10.7-15.3); LYMPH % 8.6 % (8-40); MCH 32.7 pg (25.7-33.7); MCHC 33.3 g/dl (32.0-36.0); MEAN CELL VOLUME 98.2 fl (80-96); MEAN PLT VOLUME 8.1 fl (7.5-11.1); MONO % 17.7 % (3.8-10.2); NEUT % 69.1 % (42.8-82.8); PLATELET COUNT 225 K/MM3 (134-434); RBC 2.25 M/mm3 (3.60-5.2); RDW 17.4 % (11.6-15.6); WHITE BLOOD COUNT 15.4 K/mm3 (4.0-10.0)
[2019-04-26 09:26] LABS: CALCIUM 8.2 mg/dL (8.5-10.1); CREATININE 2.7 mg/dL (0.55-1.3); POTASSIUM 3.8 mmol/L (3.5-5.1)
[2019-04-26 10:05] LABS: BLOOD UREA NITROGEN 130.2 mg/dL (7-18)
[2019-04-26] MEDS: FAMOTIDINE 20 MG TABLET PO SCH (10:11)
[2019-04-26] MEDS: CARVEDILOL 25 MG TABLET (FP) PO SCH ×2 (10:11→21:54)
[2019-04-26] MEDS: MULTIVITAMINS (DAILY MVI) TABLET (FP) PO SCH (10:11)
[2019-04-26] MEDS: LETROZOLE 2.5 MG TABLET (FP) PO SCH (10:12)
[2019-04-26] MEDS: PREGABALIN 25 MG CAPSULE PO SCH (10:13)
--- NOTE | 2019-04-26 10:53 | PN ---
Progress Note (short form) - Note Progress Note: s: no cp palps dizzy sob, +cough Current Medications Generic Name Dose Route Start Last Admin Trade Name Freq PRN Reason Stop Dose Admin Acetaminophen 650 mg 04/11/19 13:59 04/23/19 15:37 Tylenol - PO 650 mg Q6H PRN Administration PAIN Carvedilol 25 mg 04/11/19 22:00 04/26/19 10:11 Coreg - PO 25 mg BID [facility] Administration Famotidine 20 mg 04/12/19 10:00 04/26/19 10:11 Pepcid - PO 20 mg DAILY [facility] Administration Guaifenesin 5 ml 04/24/19 10:30 04/24/19 16:01 Diabetic Tussin Dm - PO 5 ml Q6H PRN Administration COUGH Hydralazine HCl 20 mg 04/11/19 14:00 04/26/19 06:35 Apresoline - PO 20 mg TID [facility] Administration Insulin Aspart 1 vial 04/11/19 16:30 04/26/19 06:39 Novolog Vial Sliding Scale - SQ 2 units ACHS [facility] Administration Protocol Insulin Detemir 15 units 04/25/19 22:00 04/25/19 23:43 Levemir Vial SQ 15 units HS [facility] Administration Ipratropium [place] 1 amp 04/25/19 20:00 04/26/19 07:35 Atrovent 0.02% Nebulizer - NEB 1 amp RTID [facility] Administration Letrozole 2.5 mg 04/12/19 10:00 04/26/19 10:12 Femara - PO 2.5 mg DAILY [facility] Administration Levothyroxine Sodium 112 mcg 04/12/19 07:00 04/26/19 06:36 Synthroid - PO 112 mcg DAILY@0700 [facility] Administration Multivitamins/Minerals/Vitamin C 1 tab 04/12/19 10:00 04/26/19 10:11 Tab-A-Vit - PO 1 tab DAILY [facility] Administration Polyethylene Glycol 17 gm 04/25/19 11:41 Miralax (For Daily Use) - PO DAILY [facility]N [facility] Pregabalin 25 mg 04/24/19 10:00 04/26/19 10:13 Lyrica - PO Not Given DAILY [facility] Pregabalin 50 mg 04/23/19 22:00 04/25/19 23:07 Lyrica - PO Not Given HS [facility] Vital Signs Period Temp Pulse Resp BP Sys/Hernandez Pulse Ox Last 24 Hr 97.8 F-98.8 F 71-84 20-20 125-146/46-69 Constitutional: Yes: Well Nourished, No Distress, Calm Cardiovascular: Yes: Regular Rate and Rhythm, JVD, S1, S2. No: Gallop, Murmur Respiratory: Yes: Regular, CTA Bilaterally. No: Accessory Muscle Use, Rales, Wheezes Extremities: No: Cold Edema: trace le edema bl Neurological: Yes: Alert, Oriented Psychiatric: No: Agitated CBC, BMP 04/26/19 08:07 04/26/19 08:07 Assessment/Plan EKG: sinus,nl intervals, no ischemic changes CXR: + congestive changes echo 03/2019 nl LV function, mild MR, mild TR, PASP at least 49 mmHg acute diastolic heart failure exacerbation: - recent echo nl LV function, mild pulm HTN - vol status improved after iv lasix. bun/cr rising so now diuretics held, today cr starting to improve. resume po lasix when cr stable. lower ext cellulitis: - manage per ID, primary HTN - cont current meds MAURICE on CKD: - monitor cr off diuretic for now - renal following cp: -resolved -ecg unremarkable -trop neg x2 -monitor for now
--- NOTE | 2019-04-26 11:09 | PN ---
Progress Note (short form) - Note Progress Note: Neurology CHIEF COMPLAINT: shortness of breath PCP: Dr. Salinas HISTORY OF PRESENT ILLNESS: 89 yo F PMH of HTN, HLD, Left breast cancer, Hypothyroidism, GERD, NIDDM and Multiple CVAs, recently admitted at [facility] for bilateral LE cellulitis ( discharged 04/06/19) presented with shortness of breath on day of admission. pt stated that after she had dinner she became very short of breath and her granddaughter told her to come to the hospital. she stated that the last time she had a breathing problem she was in the hospital and it was after she finished eating. she stated it was short and improved with nasal oxygen. she stated she takes lasix 80 at home and is compliant with her medication. Consulted for severe sciatica pain on LLE. Per notes, she was already on Lyrica 50 mg twice a day but was complaining of shaking of her legs and her entire body. Per notes, she had rrequested reduction of the Lyrica and this was adjusted on the 25 mg twice a day. Now she feels suboptimal treatment of her neuropathyand had requested neurologist. In speaking with the patient, sheinformed me that during the daytime her symptoms are mmore than at nighttime. Therefore, I discussed adjusting her medication to 50 mg in the day but only 25 mg at nighttime and received call back from nurse that patient asked for 25mg in day and 50mg at bed, in agreement with this. patient reported not taking Lyrica because of shaking though previously said shaking occured if she had suboptimal dose of Lyrica. No shaking noted. Active Medications Acetaminophen (Tylenol -) 650 mg PO Q6H PRN PRN Reason: PAIN Last Admin: 04/23/19 15:37 Dose: 650 mg Carvedilol (Coreg -) 25 mg PO BID [facility] Last Admin: 04/26/19 10:11 Dose: 25 mg Famotidine (Pepcid -) 20 mg PO DAILY [facility] Last Admin: 04/26/19 10:11 Dose: 20 mg Guaifenesin (Diabetic Tussin Dm -) 5 ml PO Q6H PRN PRN Reason: COUGH Last Admin: 04/24/19 16:01 Dose: 5 ml Hydralazine HCl (Apresoline -) 20 mg PO TID [facility] Last Admin: 01/20/20 06:35 Dose: 20 mg Insulin Aspart (Novolog Vial Sliding Scale -) 1 vial SQ [facility]; Protocol Last Admin: 04/26/19 06:39 Dose: 2 units Insulin Detemir (Levemir Vial) 15 units SQ [facility] Last Admin: 04/25/19 23:43 Dose: 15 units Ipratropium [place] (Atrovent 0.02% Nebulizer -) 1 amp NEB RTID [facility] Last Admin: 04/26/19 07:35 Dose: 1 amp Letrozole (Femara -) 2.5 mg PO DAILY [facility] Last Admin: 04/26/19 10:12 Dose: 2.5 mg Levothyroxine Sodium (Synthroid -) 112 mcg PO DAILY@0700 [facility] Last Admin: 04/26/19 06:36 Dose: 112 mcg Multivitamins/Minerals/Vitamin C (Tab-A-Vit -) 1 tab PO DAILY [facility] Last Admin: 04/26/19 10:11 Dose: 1 tab Polyethylene Glycol (Miralax (For Daily Use) -) 17 gm PO DAILY PRN PRN Reason: CONSTIPATION Pregabalin (Lyrica -) 25 mg PO DAILY [facility] Last Admin: 04/26/19 10:13 Dose: Not Given Pregabalin (Lyrica -) 50 mg PO [facility] Last Admin: 04/25/19 23:07 Dose: Not Given PHYSICAL EXAMINATION Vital Signs Period Temp Pulse Resp BP Sys/Hernandez Pulse Ox Last 24 Hr 97.8 F-98.8 F 71-84 20-20 125-146/46-69 GENERAL: Awake, alert, and fully oriented, in no acute distress. pt has conversational dyspnea . on 4L NC HEAD: Normal with no signs of trauma. EYES: Pupils equal, round and reactive to light, L pupil larger than R , extraocular movements intact, EARS, NOSE, THROAT: Ears normal, nares patent, oropharynx clear without exudates. Moist mucous membranes. NECK: Normal range of motion, supple without lymphadenopathy, JVD, or masses. LUNGS: Breath sounds equal, b/l crackles throughout. No accessory muscle use. HEART: Regular rate and rhythm, normal S1 and S2 without murmur, rub or gallop. ABDOMEN: Soft, tender to RUQ, distended, normoactive bowel sounds MUSCULOSKELETAL:No bony deformities or tenderness. No CVA tenderness. UPPER EXTREMITIES: 2+ pulses, warm, well-perfused. many ecchymosis b/l LOWER EXTREMITIES: 2+ pulses, warm, well-perfused. 2+ peripheral edema. erythema b/l NEUROLOGICAL: Cranial nerves II-XII intact. Normal speech. Reduced LT in lower extremities, finger-nose intact PSYCHIATRIC: Cooperative. Good eye contact. Appropriate mood and affect. CBCD WBC 15.4 K/mm3 (4.0-10.0) H 04/26/19 08:07 RBC 2.25 M/mm3 (3.60-5.2) L 04/26/19 08:07 Hgb 7.4 GM/dL (10.7-15.3) L 04/26/19 08:07 Hct 22.1 % (32.4-45.2) L 04/26/19 08:07 MCV 98.2 fl (80-96) H 04/26/19 08:07 MCHC 33.3 g/dl (32.0-36.0) 04/26/19 08:07 RDW 17.4 % (11.6-15.6) H 04/26/19 08:07 Plt Count 225 K/MM3 (134-434) 04/26/19 08:07 MPV 8.1 fl (7.5-11.1) 04/26/19 08:07 CMP Sodium 133 mmol/L (136-145) L 04/26/19 08:07 Potassium 3.8 mmol/L (3.5-5.1) 04/26/19 08:07 Chloride 97 mmol/L (98-107) L 04/26/19 08:07 Carbon Dioxide 24 mmol/L (21-32) 04/26/19 08:07 Anion Gap 11 MMOL/L (8-16) 04/26/19 08:07 BUN 130.2 mg/dL (7-18) H* 04/26/19 08:07 Creatinine 2.7 mg/dL (0.55-1.3) H 04/26/19 08:07 Random Glucose 136 mg/dL (74-106) H 04/26/19 08:07 Calcium 8.2 mg/dL (8.5-10.1) L 04/26/19 08:07 Total Bilirubin 0.3 mg/dL (0.2-1) 04/24/19 08:25 AST 14 U/L (15-37) L 04/24/19 08:25 ALT 15 U/L (13-61) 04/24/19 08:25 Alkaline Phosphatase 114 U/L (45-117) 04/24/19 08:25 Total Protein 6.2 g/dl (6.4-8.2) L 04/24/19 08:25 Albumin 2.7 g/dl (3.4-5.0) L 04/24/19 08:25 CARDIAC ENZYMES Creatine Kinase 65 U/L (26-192) 04/08/19 22:30 Troponin I < 0.02 ng/ml (0.00-0.05) 04/15/19 07:58 ASSESSMENT/PLAN: 89 yo F PMH of HTN, HLD, Left breast cancer, Hypothyroidism, GERD, NIDDM and Multiple CVAs, recently admitted at [facility] for bilateral LE cellulitis ( discharged 04/06/19) presented with shortness of breath on day of admission. pt stated that after she had dinner she became very short of breath and her granddaughter told her to come to the hospital. she stated that the last time she had a breathing problem she was in the hospital and it was after she finished eating. she stated it was short and improved with nasal oxygen. she stated she takes lasix 80 at home and is compliant with her medication. Consulted for severe sciatica pain on LLE. Per notes, she was already on Lyrica 50 mg twice a day but was complaining of shaking of her legs and her entire body. Per notes, she had rrequested reduction of the Lyrica and this was adjusted on the 25 mg twice a day. Now she feels suboptimal treatment of her neuropathyand had requested neurologist. In speaking with the patient, sheinformed me that during the daytime her symptoms are mmore than at nighttime. Therefore, I discussed adjusting her medication to 50 mg in the day but only 25 mg at nighttime. Therefore, I discussed adjusting her medication to 50 mg in the day but only 25 mg at nighttime and received call back from nurse that patient asked for 25mg in day and 50mg at bed, in agreement with this. Denies shaking this am, complains of fatigue and weakness, likely chronic. Patient unreliable her account of response to medication. Will keep Lyrica as ordered and seemed to be appropriate dose. Tight glycemic control recommended as this can precipitate neuropathic symptoms monitor diabetes and glucose range. Physical therapy as tolerated, short term rehab if indicated. Fall precautions.
--- NOTE | 2019-04-26 12:02 | PN ---
Progress Note (short form) - Note Progress Note: Breathing is overall improving. Some residual nonproductive cough. Intake & Output 04/23/19 04/24/19 04/25/19 04/26/19 23:59 23:59 23:59 23:59 Intake Total 850 Output Total 1000 500 Balance -1000 350 Last Vital Signs Temp Pulse Resp BP Pulse Ox 98.8 F 73 20 140/69 96 04/26/19 06:00 04/26/19 06:00 04/26/19 06:00 04/26/19 06:00 04/25/19 10:05 Active Medications Acetaminophen (Tylenol -) 650 mg PO Q6H PRN PRN Reason: PAIN Last Admin: 04/23/19 15:37 Dose: 650 mg Carvedilol (Coreg -) 25 mg PO BID [facility] Last Admin: 04/26/19 10:11 Dose: 25 mg Famotidine (Pepcid -) 20 mg PO DAILY [facility] Last Admin: 04/26/19 10:11 Dose: 20 mg Guaifenesin (Diabetic Tussin Dm -) 5 ml PO Q6H PRN PRN Reason: COUGH Last Admin: 04/24/19 16:01 Dose: 5 ml Hydralazine HCl (Apresoline -) 20 mg PO TID [facility] Last Admin: 04/26/19 06:35 Dose: 20 mg Insulin Aspart (Novolog Vial Sliding Scale -) 1 vial SQ [facility]; Protocol Last Admin: 04/26/19 06:39 Dose: 2 units Insulin Detemir (Levemir Vial) 15 units SQ HS [facility] Last Admin: 04/25/19 23:43 Dose: 15 units Ipratropium [place] (Atrovent 0.02% Nebulizer -) 1 amp NEB RTID [facility] Last Admin: 04/26/19 07:35 Dose: 1 amp Letrozole (Femara -) 2.5 mg PO DAILY [facility] Last Admin: 04/26/19 10:12 Dose: 2.5 mg Levothyroxine Sodium (Synthroid -) 112 mcg PO DAILY@0700 [facility] Last Admin: 04/26/19 06:36 Dose: 112 mcg Multivitamins/Minerals/Vitamin C (Tab-A-Vit -) 1 tab PO DAILY [facility] Last Admin: 04/26/19 10:11 Dose: 1 tab Polyethylene Glycol (Miralax (For Daily Use) -) 17 gm PO DAILY PRN PRN Reason: CONSTIPATION Pregabalin (Lyrica -) 25 mg PO DAILY [facility] Last Admin: 04/26/19 10:13 Dose: Not Given Pregabalin (Lyrica -) 50 mg PO HS [facility] Last Admin: 04/25/19 23:07 Dose: Not Given Gen: NAD at rest Heart: RRR Lung: decreased breath sounds at the bases Abd: soft, nontender Ext: less edema Laboratory Results - last 24 hr 04/25/19 04/25/19 04/25/19 07:00 17:23 23:42 WBC RBC Hgb Hct MCV MCH MCHC RDW Plt Count MPV Absolute Neuts (auto) Neutrophils % Neutrophils % (Manual) 59.4 Band Neutrophils % 3.0 Lymphocytes % Lymphocytes % (Manual) 3.9 L D Monocytes % Monocytes % (Manual) 20 H Eosinophils % Eosinophils % (Manual) 1.0 Basophils % Basophils % (Manual) 3.0 H Myelocytes % (Man) 7 H D Promyelocytes % (Man) 0 Blast Cells % (Manual) 0 Nucleated RBC % 1 H Metamyelocytes 1 D Hypochromia 0 Platelet Estimate Normal Platelet Comment Present Polychromasia 1+ Poikilocytosis 1+ Basophilic Stippling 1+ Anisocytosis 1+ Microcytosis 1+ Macrocytosis 0 Spherocytes 1+ Ovalocytes 1+ Stomatocytes 1+ Sodium Potassium Chloride Carbon Dioxide Anion Gap BUN Creatinine Est GFR (CKD-EPI)AfAm Est GFR (CKD-EPI)NonAf POC Glucometer 199 294 Random Glucose Calcium 04/26/19 04/26/19 04/26/19 06:38 08:07 08:07 WBC 15.4 H RBC 2.25 L Hgb 7.4 L Hct 22.1 L MCV 98.2 H MCH 32.7 MCHC 33.3 RDW 17.4 H Plt Count 225 MPV 8.1 Absolute Neuts (auto) 10.6 H Neutrophils % 69.1 Neutrophils % (Manual) Band Neutrophils % Lymphocytes % 8.6 Lymphocytes % (Manual) Monocytes % 17.7 H Monocytes % (Manual) Eosinophils % 3.9 Eosinophils % (Manual) Basophils % 0.7 Basophils % (Manual) Myelocytes % (Man) Promyelocytes % (Man) Blast Cells % (Manual) Nucleated RBC % 0 Metamyelocytes Hypochromia Platelet Estimate Platelet Comment Polychromasia Poikilocytosis Basophilic Stippling Anisocytosis Microcytosis Macrocytosis Spherocytes Ovalocytes Stomatocytes Sodium 133 L Potassium 3.8 Chloride 97 L Carbon Dioxide 24 Anion Gap 11 BUN 130.2 H* Creatinine 2.7 H Est GFR (CKD-EPI)AfAm 17.41 Est GFR (CKD-EPI)NonAf 15.02 POC Glucometer 165 Random Glucose 136 H Calcium 8.2 L A/P Acute on Chronic Diastolic Heart Failure Acute on Chronic Renal Failure Hyponatremia HTN DM Hyperlipidemia Hypothyroidism GERD h/o Breast Ca h/o CVA Anemia - lasix on hold due to azotemia - monitor urine output, creatinine - daily weights - monitor H/H - O2 to keep SpO2 >90% - inhaled bronchodilators - monitor lytes - DVT prophylaxis Dr Rosa
--- NOTE | 2019-04-26 12:06 | PN ---
Progress Note (short form) - Note Progress Note: Patient seen and examined Complains of "neuropathy" of entire body - Has pain on minimal motion of legs or upper body Last Vital Signs Temp Pulse Resp BP Pulse Ox 98.8 F 73 20 140/69 96 04/26/19 06:00 04/26/19 06:00 04/26/19 06:00 04/26/19 06:00 04/25/19 10:05 HEENT: LORENZO, EOM Intact Oropharynx: No thrush, No mucositis Neck: Supple Nodes: Without adenopathy Breasts: S/p left mastectomy with radiation changes of left breast Cor: RSR, No murmurs, No gallops Lungs: Clear to P&A Abd: Soft, Normal bowel sounds, No organomegaly Ext:No significant edema Skin: No rashes, Integument intact CBC, BMP 04/26/19 08:07 04/26/19 08:07 Current Medications Generic Name Dose Route Start Last Admin Trade Name Freq PRN Reason Stop Dose Admin Acetaminophen 650 mg 04/11/19 13:59 04/23/19 15:37 Tylenol - PO 650 mg Q6H PRN Administration PAIN Carvedilol 25 mg 04/11/19 22:00 04/26/19 10:11 Coreg - PO 25 mg BID [facility] Administration Famotidine 20 mg 04/12/19 10:00 04/26/19 10:11 Pepcid - PO 20 mg DAILY [facility] Administration Guaifenesin 5 ml 04/24/19 10:30 04/24/19 16:01 Diabetic Tussin Dm - PO 5 ml Q6H PRN Administration COUGH Hydralazine HCl 20 mg 04/11/19 14:00 04/26/19 06:35 Apresoline - PO 20 mg TID [facility] Administration Insulin Aspart 1 vial 04/11/19 16:30 04/26/19 06:39 Novolog Vial Sliding Scale - SQ 2 units ACHS [facility] Administration Protocol Insulin Detemir 15 units 04/25/19 22:00 04/25/19 23:43 Levemir Vial SQ 15 units HS [facility] Administration Ipratropium [place] 1 amp 04/25/19 20:00 04/26/19 07:35 Atrovent 0.02% Nebulizer - NEB 1 amp RTID [facility] Administration Letrozole 2.5 mg 04/12/19 10:00 04/26/19 10:12 Femara - PO 2.5 mg DAILY [facility] Administration Levothyroxine Sodium 112 mcg 04/12/19 07:00 04/26/19 06:36 Synthroid - PO 112 mcg DAILY@0700 [facility] Administration Multivitamins/Minerals/Vitamin C 1 tab 04/12/19 10:00 04/26/19 10:11 Tab-A-Vit - PO 1 tab DAILY [facility] Administration Polyethylene Glycol 17 gm 04/25/19 11:41 Miralax (For Daily Use) - PO DAILY PRN CONSTIPATION Pregabalin 25 mg 04/24/19 10:00 04/26/19 10:13 Lyrica - PO Not Given DAILY [facility] Pregabalin 50 mg 04/23/19 22:00 04/25/19 23:07 Lyrica - PO Not Given HS [facility] Impressin: Anemia- left shift WBC series with normoblasts - ?? underlying MDS "Neuropathy" CKD Hypothyroidism HBP Hypothyroidism Fe++ deficiency I have put in a call to Dr. Estrada - Patient states she has just started with aranesp ( for ? MDS or anemia secondary to CKD) Will give Venofer Will give Procrit If further fall in Hb , will need transfusion therapy Followed by renal
[2019-04-26] MEDS ORDERED: EPOETIN ALFA 40,000 UNIT/1 ML VIAL SQ ONE (12:18)
--- NOTE | 2019-04-26 12:33 | PN ---
Physical Exam: SUBJECTIVE: Patient seen and examined. No events overnight. Patient complaining of pain on UE, and LE OBJECTIVE: Vital Signs Period Temp Pulse Resp BP Sys/Hernandez Pulse Ox Last 24 Hr 97.8 F-98.8 F 71-84 20-20 125-145/46-69 GENERAL: nad HEAD: Normal with no signs of trauma. EYES: PERRL, conjunctiva clear ENT: moist mucous membranes. NECK: supple. LUNGS: decreased breath sounds HEART: RRR ABDOMEN: Soft, nontender, nondistended, normoactive bowel sounds EXTREMITIES: 2+ pulses, +edema b/l Laboratory Results - last 24 hr 04/25/19 04/25/19 04/25/19 07:00 17:23 23:42 WBC RBC Hgb Hct MCV MCH MCHC RDW Plt Count MPV Absolute Neuts (auto) Neutrophils % Neutrophils % (Manual) 59.4 Band Neutrophils % 3.0 Lymphocytes % Lymphocytes % (Manual) 3.9 L D Monocytes % Monocytes % (Manual) 20 H Eosinophils % Eosinophils % (Manual) 1.0 Basophils % Basophils % (Manual) 3.0 H Myelocytes % (Man) 7 H D Promyelocytes % (Man) 0 Blast Cells % (Manual) 0 Nucleated RBC % 1 H Metamyelocytes 1 D Hypochromia 0 Platelet Estimate Normal Platelet Comment Present Polychromasia 1+ Poikilocytosis 1+ Basophilic Stippling 1+ Anisocytosis 1+ Microcytosis 1+ Macrocytosis 0 Spherocytes 1+ Ovalocytes 1+ Stomatocytes 1+ Sodium Potassium Chloride Carbon Dioxide Anion Gap BUN Creatinine Est GFR (CKD-EPI)AfAm Est GFR (CKD-EPI)NonAf POC Glucometer 199 294 Random Glucose Calcium 04/26/19 04/26/19 04/26/19 06:38 08:07 08:07 WBC 15.4 H RBC 2.25 L Hgb 7.4 L Hct 22.1 L MCV 98.2 H MCH 32.7 MCHC 33.3 RDW 17.4 H Plt Count 225 MPV 8.1 Absolute Neuts (auto) 10.6 H Neutrophils % 69.1 Neutrophils % (Manual) Band Neutrophils % Lymphocytes % 8.6 Lymphocytes % (Manual) Monocytes % 17.7 H Monocytes % (Manual) Eosinophils % 3.9 Eosinophils % (Manual) Basophils % 0.7 Basophils % (Manual) Myelocytes % (Man) Promyelocytes % (Man) Blast Cells % (Manual) Nucleated RBC % 0 Metamyelocytes Hypochromia Platelet Estimate Platelet Comment Polychromasia Poikilocytosis Basophilic Stippling Anisocytosis Microcytosis Macrocytosis Spherocytes Ovalocytes Stomatocytes Sodium 133 L Potassium 3.8 Chloride 97 L Carbon Dioxide 24 Anion Gap 11 BUN 130.2 H* Creatinine 2.7 H Est GFR (CKD-EPI)AfAm 17.41 Est GFR (CKD-EPI)NonAf 15.02 POC Glucometer 165 Random Glucose 136 H Calcium 8.2 L Active Medications Generic Name Dose Route Start Last Admin Trade Name Freq PRN Reason Stop Dose Admin Acetaminophen 650 mg 04/11/19 13:59 04/23/19 15:37 Tylenol - PO 650 mg Q6H PRN Administration PAIN Carvedilol 25 mg 04/11/19 22:00 04/26/19 10:11 Coreg - PO 25 mg BID [facility] Administration Famotidine 20 mg 04/12/19 10:00 04/26/19 10:11 Pepcid - PO 20 mg DAILY [facility] Administration Guaifenesin 5 ml 04/24/19 10:30 04/24/19 16:01 Diabetic Tussin Dm - PO 5 ml Q6H PRN Administration COUGH Hydralazine HCl 20 mg 04/11/19 14:00 04/26/19 06:35 Apresoline - PO 20 mg TID [facility] Administration Iron Sucrose 200 mg/ Sodium 100 mls @ 100 mls/hr 04/26/19 13:00 Chloride IVPB 04/26/19 13:59 ONCE ONE Insulin Aspart 1 vial 04/11/19 16:30 04/26/19 06:39 Novolog Vial Sliding Scale - SQ 2 units ACHS [facility] Administration Protocol Insulin Detemir 15 units 04/25/19 22:00 04/25/19 23:43 Levemir Vial SQ 15 units HS [facility] Administration Ipratropium [place] 1 amp 04/25/19 20:00 04/26/19 07:35 Atrovent 0.02% Nebulizer - NEB 1 amp RTID [facility] Administration Letrozole 2.5 mg 04/12/19 10:00 04/26/19 10:12 Femara - PO 2.5 mg DAILY [facility] Administration Levothyroxine Sodium 112 mcg 04/12/19 07:00 04/26/19 06:36 Synthroid - PO 112 mcg DAILY@0700 [facility] Administration Multivitamins/Minerals/Vitamin C 1 tab 04/12/19 10:00 04/26/19 10:11 Tab-A-Vit - PO 1 tab DAILY [facility] Administration Polyethylene Glycol 17 gm 04/25/19 11:41 Miralax (For Daily Use) - PO DAILY PRN CONSTIPATION Pregabalin 25 mg 04/24/19 10:00 04/26/19 10:13 Lyrica - PO Not Given DAILY [facility] Pregabalin 50 mg 04/23/19 22:00 04/25/19 23:07 Lyrica - PO Not Given HS [facility] ASSESSMENT/PLAN: This is an 89 year old woman with a history of HTN, hyperlipidemia, type 2 DM, CVAs, hypothyroidism, GERD, breast cancer who presented to the ED with SOB. #Acute on chronic diastolic heart failure #Volume overload likely renal and cardio etiology #MAURICE on CKD #Stage 4 CKD #Chronic Leukocytosis #HTN #DM2 #LLE pain likely sciatica #HLD #Cellulitis #Hypothyroidism #GERD #Hx CVA #Hx Breast CA #Macrocytic Anemia Plan: -clinically improved -cr slowly going down but BUN elevated at 130. -Lasix and metolazone held for worsening kidney function -may benefit from short term HD. -pt not eager to start HD, will observe over next few days per Nephro -keep losartan on hold for now -i/os and daily weight no accurately measured -echo with normal EF -NA and fluid restriction -completed abx for cellulitis -replete lytes as needed -Neuro consult for sciatica pain. changed lyrica to 50mg in morning and 25 at night for better pain control. -Hgb stable. Transfuse hgb <7 -Anemia like in setting of ACD vs renal disease. Dr. Cabrera spoke with patient heme/onc doctor. Patient states she has just started with aranesp ( for ? MDS or anemia secondary to CKD) -Patient will receive Venofer, Procrit -FU heme/onc reccs -SSI, Levemir 10U HS -FU renal reccs -FU am labs -cardio eval appreciated -DVT ppx with SCDs. Visit type - Emergency Visit Emergency Visit: Yes ED Registration Date: 04/08/19 Care time: The patient presented to the Emergency Department on the above date and was hospitalized for further evaluation of their emergent condition. - New Patient This patient is new to me today: Yes Date on this admission: 04/26/19 - Critical Care Critical Care patient: No ATTENDING PHYSICIAN STATEMENT I saw and evaluated the patient. I reviewed the resident's note and discussed the case with the resident. I agree with the resident's findings and plan as documented. SUBJECTIVE: OBJECTIVE: ASSESSMENT AND PLAN:
[2019-04-26 12:46] LABS: ANISOCYTOSIS 1+; MACROCYTOSIS 0; PLATELET ESTIMATE NORMAL
[2019-04-26] MEDS ORDERED: IRON SUCROSE INJECTION 200 MG in SODIUM CHLORIDE 90 ML IVPB ONE (13:00)
--- NOTE | 2019-04-26 13:54 | PN ---
Progress Note, Physician History of Present Illness: stable weak aches all over - Current Medication List Current Medications: Active Medications Acetaminophen (Tylenol -) 650 mg PO Q6H PRN PRN Reason: PAIN Last Admin: 04/23/19 15:37 Dose: 650 mg Carvedilol (Coreg -) 25 mg PO BID [facility] Last Admin: 04/26/19 10:11 Dose: 25 mg Famotidine (Pepcid -) 20 mg PO DAILY [facility] Last Admin: 04/26/19 10:11 Dose: 20 mg Guaifenesin (Diabetic Tussin Dm -) 5 ml PO Q6H PRN PRN Reason: COUGH Last Admin: 04/24/19 16:01 Dose: 5 ml Hydralazine HCl (Apresoline -) 20 mg PO TID [facility] Last Admin: 04/26/19 06:35 Dose: 20 mg Iron Sucrose 200 mg/ Sodium (Chloride) 100 mls @ 100 mls/hr IVPB ONCE ONE Stop: 04/26/19 13:59 Insulin Aspart (Novolog Vial Sliding Scale -) 1 vial SQ [facility]; Protocol Last Admin: 04/26/19 12:30 Dose: 2 units Insulin Detemir (Levemir Vial) 15 units SQ [facility] Last Admin: 04/25/19 23:43 Dose: 15 units Ipratropium [place] (Atrovent 0.02% Nebulizer -) 1 amp NEB RTID [facility] Last Admin: 04/26/19 07:35 Dose: 1 amp Letrozole (Femara -) 2.5 mg PO DAILY [facility] Last Admin: 04/26/19 10:12 Dose: 2.5 mg Levothyroxine Sodium (Synthroid -) 112 mcg PO DAILY@0700 [facility] Last Admin: 04/26/19 06:36 Dose: 112 mcg Multivitamins/Minerals/Vitamin C (Tab-A-Vit -) 1 tab PO DAILY [facility] Last Admin: 04/26/19 10:11 Dose: 1 tab Polyethylene Glycol (Miralax (For Daily Use) -) 17 gm PO DAILY PRN PRN Reason: CONSTIPATION Pregabalin (Lyrica -) 25 mg PO DAILY [facility] Last Admin: 04/26/19 10:13 Dose: Not Given Pregabalin (Lyrica -) 50 mg PO HS [facility] Last Admin: 04/25/19 23:07 Dose: Not Given - Objective Vital Signs: Vital Signs Temperature 98.8 F 04/26/19 06:00 Pulse Rate 73 04/26/19 06:00 Respiratory Rate 20 04/26/19 06:00 Blood Pressure 140/69 04/26/19 06:00 O2 Sat by Pulse Oximetry (%) 96 04/25/19 10:05 Constitutional: Yes: No Distress, Calm Cardiovascular: Yes: S1, S2 Respiratory: Yes: Regular, CTA Bilaterally Gastrointestinal: Yes: Normal Bowel Sounds, Soft Musculoskeletal: Yes: WNL Extremities: Yes: WNL Edema: LLE: 1+, RLE: 1+ Neurological: Yes: Alert, Oriented Psychiatric: Yes: Alert, Oriented Labs: CBC, BMP 04/26/19 08:07 04/26/19 08:07 INR, PTT INR 1.01 (0.83-1.09) 04/08/19 22:30 Assessment/Plan Problem List - Problems (1) Acute diastolic (congestive) heart failure Code(s): I50.31 - ACUTE DIASTOLIC (CONGESTIVE) HEART FAILURE (2) Acute kidney injury superimposed on CKD Code(s): N17.9 - ACUTE KIDNEY FAILURE, UNSPECIFIED; N18.9 - CHRONIC KIDNEY DISEASE, UNSPECIFIED (3) Anemia Code(s): D64.9 - ANEMIA, UNSPECIFIED Qualifiers: Anemia type: unspecified type Qualified Code(s): D64.9 - Anemia, unspecified (4) Bilateral leg edema Code(s): R60.0 - LOCALIZED EDEMA (5) Hypothyroid Code(s): E03.9 - HYPOTHYROIDISM, UNSPECIFIED Qualifiers: Hypothyroidism type: unspecified Qualified Code(s): E03.9 - Hypothyroidism , unspecified (6) Shortness of breath Code(s): R06.02 - SHORTNESS OF BREATH (7) Breast cancer, left Code(s): C50.912 - MALIGNANT NEOPLASM OF UNSPECIFIED SITE OF LEFT FEMALE BREAST (8) Diabetes Code(s): E11.9 - TYPE 2 DIABETES MELLITUS WITHOUT COMPLICATIONS Qualifiers: Diabetes mellitus type: type 2 (9) GERD (gastroesophageal reflux disease) Code(s): K21.9 - GASTRO-ESOPHAGEAL REFLUX DISEASE WITHOUT ESOPHAGITIS (10) HTN (hypertension) Code(s): I10 - ESSENTIAL (PRIMARY) HYPERTENSION (11) History of CVA with residual deficit Code(s): I69.30 - UNSPECIFIED SEQUELAE OF CEREBRAL INFARCTION (12) Lower extremity cellulitis Code(s): L03.119 - CELLULITIS OF UNSPECIFIED PART OF LIMB Assessment/Plan 89 y.o. female with PMH of DM, CKD, HTN, HLD, anemia, Lt breast CA s/p lumpectomy/RT, hypothyroidism, CVA, GBS, remote history of meningitis presents with complaints of worsening SOB and b/l LE edema that began several days [employer] after recent hospital discharge. Treated for b/l LE cellulitis with some improvement. Noted to have leukocytosis, LE erythema, worsening renal function and anemia b/l LE cellulitis Leukocytosis SOB b/l LE edema Acute diastolic HF Anemia Acute on chronic RF DM HTN Hx of Lt Breast CA Hypothyroidism Hx of CVAs plan continue current mgmt close watch physio rest as per the team
--- NOTE | 2019-04-26 15:42 | PN ---
Progress Note, Physician History of Present Illness: Pt seen and examined at bedside. She is awake and alert. She feels that her breathing is improved. We again discussed HD and she does not want it. - Current Medication List Current Medications: Active Medications Acetaminophen (Tylenol -) 650 mg PO Q6H PRN PRN Reason: PAIN Last Admin: 04/23/19 15:37 Dose: 650 mg Carvedilol (Coreg -) 25 mg PO BID [facility] Last Admin: 04/26/19 10:11 Dose: 25 mg Famotidine (Pepcid -) 20 mg PO DAILY [facility] Last Admin: 04/26/19 10:11 Dose: 20 mg Guaifenesin (Diabetic Tussin Dm -) 5 ml PO Q6H PRN PRN Reason: COUGH Last Admin: 04/24/19 16:01 Dose: 5 ml Hydralazine HCl (Apresoline -) 20 mg PO TID [facility] Last Admin: 04/26/19 14:29 Dose: 20 mg Insulin Aspart (Novolog Vial Sliding Scale -) 1 vial SQ [facility]; Protocol Last Admin: 04/26/19 12:30 Dose: 2 units Insulin Detemir (Levemir Vial) 15 units SQ [facility] Last Admin: 04/25/19 23:43 Dose: 15 units Ipratropium [place] (Atrovent 0.02% Nebulizer -) 1 amp NEB RTID [facility] Last Admin: 04/26/19 13:54 Dose: 1 amp Letrozole (Femara -) 2.5 mg PO DAILY [facility] Last Admin: 04/26/19 10:12 Dose: 2.5 mg Levothyroxine Sodium (Synthroid -) 112 mcg PO DAILY@0700 [facility] Last Admin: 04/26/19 06:36 Dose: 112 mcg Multivitamins/Minerals/Vitamin C (Tab-A-Vit -) 1 tab PO DAILY [facility] Last Admin: 04/26/19 10:11 Dose: 1 tab Polyethylene Glycol (Miralax (For Daily Use) -) 17 gm PO DAILY PRN PRN Reason: CONSTIPATION Pregabalin (Lyrica -) 25 mg PO DAILY [facility] Last Admin: 04/26/19 10:13 Dose: Not Given Pregabalin (Lyrica -) 50 mg PO HS [facility] Last Admin: 04/25/19 23:07 Dose: Not Given - Objective Vital Signs: Vital Signs Temperature 98.8 F 01/20/20 06:00 Pulse Rate 73 04/26/19 06:00 Respiratory Rate 20 04/26/19 06:00 Blood Pressure 140/69 04/26/19 06:00 O2 Sat by Pulse Oximetry (%) 96 04/25/19 10:05 Constitutional: Yes: Calm Eyes: Yes: Conjunctiva Clear HENT: Yes: Atraumatic Neck: Yes: Supple Cardiovascular: Yes: S1, S2 Respiratory: Yes: CTA Bilaterally Gastrointestinal: Yes: Soft Genitourinary: Yes: WNL Musculoskeletal: Yes: WNL Extremities: Yes: WNL Edema: LLE: Trace, RLE: Trace Neurological: Yes: Oriented Psychiatric: Yes: Oriented Labs: CBC, BMP 04/26/19 08:07 04/26/19 08:07 INR, PTT INR 1.01 (0.83-1.09) 04/08/19 22:30 Assessment/Plan Current Medications Generic Name Dose Route Start Last Admin Trade Name Freq PRN Reason Stop Dose Admin Acetaminophen 650 mg 04/11/19 13:59 04/23/19 15:37 Tylenol - PO 650 mg Q6H PRN Administration PAIN Carvedilol 25 mg 04/11/19 22:00 04/26/19 10:11 Coreg - PO 25 mg BID [facility] Administration Famotidine 20 mg 04/12/19 10:00 04/26/19 10:11 Pepcid - PO 20 mg DAILY [facility] Administration Guaifenesin 5 ml 04/24/19 10:30 04/24/19 16:01 Diabetic Tussin Dm - PO 5 ml Q6H PRN Administration COUGH Hydralazine HCl 20 mg 04/11/19 14:00 04/26/19 14:29 Apresoline - PO 20 mg TID [facility] Administration Insulin Aspart 1 vial 04/11/19 16:30 04/26/19 12:30 Novolog Vial Sliding Scale - SQ 2 units ACHS [facility] Administration Protocol Insulin Detemir 15 units 04/25/19 22:00 04/25/19 23:43 Levemir Vial SQ 15 units HS [facility] Administration Ipratropium [place] 1 amp 04/25/19 20:00 04/26/19 13:54 Atrovent 0.02% Nebulizer - NEB 1 amp RTID [facility] Administration Letrozole 2.5 mg 04/12/19 10:00 04/26/19 10:12 Femara - PO 2.5 mg DAILY [facility] Administration Levothyroxine Sodium 112 mcg 04/12/19 07:00 04/26/19 06:36 Synthroid - PO 112 mcg DAILY@0700 [facility] Administration Multivitamins/Minerals/Vitamin C 1 tab 04/12/19 10:00 04/26/19 10:11 Tab-A-Vit - PO 1 tab DAILY [facility] Administration Polyethylene Glycol 17 gm 04/25/19 11:41 Miralax (For Daily Use) - PO DAILY PRN CONSTIPATION Pregabalin 25 mg 04/24/19 10:00 04/26/19 10:13 Lyrica - PO Not Given DAILY [facility] Pregabalin 50 mg 04/23/19 22:00 04/25/19 23:07 Lyrica - PO Not Given HS [facility] Impression 1. proteinuria 2. hypothyroid 3. HTN 4. DM 5. fluid overload 6. breast cancer 7. MAURICE 8. CKD Plan - discussed HD and she does not want it - will treat with medical management - will evaluate for PO lasix tomorrow - volumes status improving - keep losartan on hold for now - [address] Sequeira
[2019-04-26] MEDS: ACETAMINOPHEN 325 MG TABLET (FP) PO PRN (20:09)
[2019-04-26] MEDS: INSULIN (LEVEMIR) 100 UNITS/ML UNITS SQ SCH (21:54)
[2019-04-26] MEDS: PREGABALIN 50 MG CAPSULE PO SCH (21:55)
[2019-04-27] MEDS: guaiFENesin/D-M SUGAR-FREE/ACLHOL-FREE 118 ML BOTTLE PO PRN ×2 (03:43→22:55)
[2019-04-27] MEDS: hydrALAZINE HCL 10 MG TABLET PO SCH ×3 (06:48→22:45)
[2019-04-27] MEDS: INSULIN SLIDING SCALE (NOVOLOG) 1 VIAL SQ SCH ×4 (06:48→22:48)
[2019-04-27] MEDS: LEVOTHYROXINE NA 112 MCG TABLET (FP) PO SCH (06:48)
[2019-04-27] MEDS: IPRATROPIUM BR 0.02% 0.5 MG/2.5 ML VIAL.NEB. NEB SCH ×3 (07:25→20:20)
--- NOTE | 2019-04-27 08:11 | PN ---
Teaching Attending Note Name of Resident: Low Noble ATTENDING PHYSICIAN STATEMENT I saw and evaluated the patient. I reviewed the resident's note and discussed the case with the resident. I agree with the resident's findings and plan as documented. SUBJECTIVE: Remained at baseline OBJECTIVE: Vital Signs Temperature 97.7 F 04/27/19 06:00 Pulse Rate 77 04/27/19 06:00 Respiratory Rate 20 04/27/19 06:00 Blood Pressure 156/61 04/27/19 06:00 O2 Sat by Pulse Oximetry (%) 95 04/26/19 21:00 General: Elderly woman, comfortable, not in distress HEENT; mucous membranes moist, no anemia, no jaundice, PERRLA, no nystagmus Neck: No JVD, supple, no bruit, thyroid palpably normal, normal carotid pulsations. Chest: Nontender, clear to auscultation CVS: S1-S2 regular no murmur/gallop/rub Abdomen: Nondistended, soft, bowel sounds present. Extremities: + edema., Venous congestion no CALFD tenderness, pulses present ACTIVITIES AIDE: AO X3 , no gross motor sensory deficit CBC, BMP 04/27/19 08:33 04/27/19 08:33 ASSESSMENT AND PLAN:89F with HTN, HLD, Left breast cancer, Hypothyroidism, GERD , NIDDM and Multiple CVAs, recently admitted at [facility] for bilateral LE cellulitis (discharged 04/06/19) admitted with SOB. Patient developed worsening MAURICE today BUN is 118, discussed with nephrology consult recommended to resume p.o. Lasix 40 mg twice daily and monitor BUN/ creatinine also cleared patient to be discharged to subacute rehab there kidney function can be monitored. 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 Code(s): D64.9 - ANEMIA, UNSPECIFIED Qualifiers: Anemia type: unspecified type Qualified Code(s): D64.9 - Anemia, unspecified (3) Acute kidney injury superimposed on CKD Assessment/Plan: Due to diuretics or cardiorenal syndrome rising BUN/creatinine we will follow- up renal recommendations. BUN remained stable nephrology cleared for discharge and recommended to resume Lasix 40 mg twice daily and periodic BUN/creatinine evaluation at [facility] Code(s): N17.9 - ACUTE KIDNEY FAILURE, UNSPECIFIED; N18.9 - CHRONIC KIDNEY DISEASE, UNSPECIFIED (4) Diabetes Assessment/Plan: Optimize glycemic control Problems reviewed: Yes Code(s): E11.9 - TYPE 2 DIABETES MELLITUS WITHOUT COMPLICATIONS Qualifiers: Diabetes mellitus type: type 2 (5) Hypothyroid Assessment/Plan: Continue levothyroxine Code(s): E03.9 - HYPOTHYROIDISM, UNSPECIFIED Qualifiers: Hypothyroidism type: unspecified Qualified Code(s): E03.9 - Hypothyroidism , unspecified (6) HTN (hypertension) Assessment/Plan: Well-controlled continue all home medication Code(s): I10 - ESSENTIAL (PRIMARY) HYPERTENSION (7) Shortness of breath Assessment/Plan: Improving on current management follow-up pulmonary recommendations Code(s): R06.02 - SHORTNESS OF BREATH
[2019-04-27] MEDS ORDERED: PT OWN MED DRAWER 7, Y5N ONE ×2 (09:11→20:13)
[2019-04-27 09:23] LABS: BASO % 0.7 % (0-2.0); EOS % 4.1 % (0-4.5); HEMOGLOBIN 7.8 GM/dL (10.7-15.3); LYMPH % 8.1 % (8-40); MCH 32.2 pg (25.7-33.7); MCHC 32.6 g/dl (32.0-36.0); MEAN CELL VOLUME 98.8 fl (80-96); MEAN PLT VOLUME 8.5 fl (7.5-11.1); MONO % 15.5 % (3.8-10.2); NEUT % 71.6 % (42.8-82.8); PLATELET COUNT 234 K/MM3 (134-434); RBC 2.43 M/mm3 (3.60-5.2); RDW 17.3 % (11.6-15.6); WHITE BLOOD COUNT 16.5 K/mm3 (4.0-10.0)
[2019-04-27] MEDS: ACETAMINOPHEN 325 MG TABLET (FP) PO PRN ×2 (09:38→22:46)
[2019-04-27] MEDS: MULTIVITAMINS (DAILY MVI) TABLET (FP) PO SCH (09:39)
[2019-04-27] MEDS: CARVEDILOL 25 MG TABLET (FP) PO SCH ×2 (09:39→22:45)
[2019-04-27] MEDS: LETROZOLE 2.5 MG TABLET (FP) PO SCH (09:40)
[2019-04-27] MEDS: PREGABALIN 25 MG CAPSULE PO SCH (09:40)
[2019-04-27] MEDS: FAMOTIDINE 20 MG TABLET PO SCH (09:40)
[2019-04-27 10:02] LABS: ALBUMIN 2.6 g/dl (3.4-5.0); BILIRUBIN,TOTAL 0.4 mg/dL (0.2-1); CALCIUM 8.8 mg/dL (8.5-10.1); CREATININE 2.6 mg/dL (0.55-1.3); POTASSIUM 3.9 mmol/L (3.5-5.1); TOT PROT 6.6 g/dl (6.4-8.2)
[2019-04-27 10:05] LABS: BLOOD UREA NITROGEN 118.3 mg/dL (7-18)
--- NOTE | 2019-04-27 10:49 | PN ---
Progress Note (short form) - Note Progress Note: Breathing is overall improving. Some residual nonproductive cough. Intake & Output 04/24/19 04/25/19 04/26/19 04/27/19 23:59 23:59 23:59 23:59 Intake Total 850 400 100 Output Total 500 Balance 350 400 100 Last Vital Signs Temp Pulse Resp BP Pulse Ox 98.1 F 74 20 128/52 L 95 04/27/19 09:07 04/27/19 09:07 04/27/19 09:07 04/27/19 09:07 04/26/19 21:00 Active Medications Acetaminophen (Tylenol -) 650 mg PO Q6H PRN PRN Reason: PAIN Last Admin: 04/27/19 09:38 Dose: 650 mg Carvedilol (Coreg -) 25 mg PO BID [facility] Last Admin: 04/27/19 09:39 Dose: 25 mg Famotidine (Pepcid -) 20 mg PO DAILY [facility] Last Admin: 04/27/19 09:40 Dose: 20 mg Guaifenesin (Diabetic Tussin Dm -) 5 ml PO Q6H PRN PRN Reason: COUGH Last Admin: 04/27/19 03:43 Dose: 5 ml Hydralazine HCl (Apresoline -) 20 mg PO TID [facility] Last Admin: 04/27/19 06:48 Dose: 20 mg Insulin Aspart (Novolog Vial Sliding Scale -) 1 vial SQ [facility]; Protocol Last Admin: 04/27/19 06:48 Dose: Not Given Insulin Detemir (Levemir Vial) 15 units SQ HS [facility] Last Admin: 04/26/19 21:54 Dose: 15 units Ipratropium [place] (Atrovent 0.02% Nebulizer -) 1 amp NEB RTID [facility] Last Admin: 04/27/19 07:25 Dose: 1 amp Letrozole (Femara -) 2.5 mg PO DAILY [facility] Last Admin: 04/27/19 09:40 Dose: 2.5 mg Levothyroxine Sodium (Synthroid -) 112 mcg PO DAILY@0700 [facility] Last Admin: 04/27/19 06:48 Dose: 112 mcg Multivitamins/Minerals/Vitamin C (Tab-A-Vit -) 1 tab PO DAILY [facility] Last Admin: 04/27/19 09:39 Dose: 1 tab Polyethylene Glycol (Miralax (For Daily Use) -) 17 gm PO DAILY PRN PRN Reason: CONSTIPATION Last Admin: 04/26/19 17:05 Dose: 17 gm Pregabalin (Lyrica -) 25 mg PO DAILY [facility] Last Admin: 04/27/19 09:40 Dose: Not Given Pregabalin (Lyrica -) 50 mg PO HS [facility] Last Admin: 04/26/19 21:55 Dose: Not Given Gen: NAD at rest Heart: RRR Lung: decreased breath sounds at the bases Abd: soft, nontender Ext: less edema Laboratory Results - last 24 hr 04/26/19 04/26/19 04/26/19 08:07 12:28 17:09 WBC RBC Hgb Hct MCV MCH MCHC RDW Plt Count MPV Absolute Neuts (auto) Neutrophils % Neutrophils % (Manual) 51.0 Band Neutrophils % 4.0 Lymphocytes % Lymphocytes % (Manual) 4.0 L Monocytes % Monocytes % (Manual) 21 H Eosinophils % Eosinophils % (Manual) 2.0 D Basophils % Basophils % (Manual) 3.0 H Myelocytes % (Man) 2 D Promyelocytes % (Man) 0 Blast Cells % (Manual) 0 Nucleated RBC % 0 Metamyelocytes 0 D Hypochromia 0 Platelet Estimate Normal Platelet Comment Present Polychromasia 1+ Poikilocytosis 1+ Anisocytosis 1+ Microcytosis 1+ Macrocytosis 0 Spherocytes 1+ Stomatocytes 1+ Acanthocytes (Spur) 1+ Sodium Potassium Chloride Carbon Dioxide Anion Gap BUN Creatinine Est GFR (CKD-EPI)AfAm Est GFR (CKD-EPI)NonAf POC Glucometer 226 174 Random Glucose Calcium Magnesium Total Bilirubin AST ALT Alkaline Phosphatase Total Protein Albumin 04/26/19 04/27/19 04/27/19 21:47 06:47 08:33 WBC 16.5 H RBC 2.43 L Hgb 7.8 L Hct 24.0 L MCV 98.8 H MCH 32.2 MCHC 32.6 RDW 17.3 H Plt Count 234 MPV 8.5 Absolute Neuts (auto) 11.8 H Neutrophils % 71.6 Neutrophils % (Manual) Band Neutrophils % Lymphocytes % 8.1 Lymphocytes % (Manual) Monocytes % 15.5 H Monocytes % (Manual) Eosinophils % 4.1 Eosinophils % (Manual) Basophils % 0.7 Basophils % (Manual) Myelocytes % (Man) Promyelocytes % (Man) Blast Cells % (Manual) Nucleated RBC % 0 Metamyelocytes Hypochromia Platelet Estimate Platelet Comment Polychromasia Poikilocytosis Anisocytosis Microcytosis Macrocytosis Spherocytes Stomatocytes Acanthocytes (Spur) Sodium Potassium Chloride Carbon Dioxide Anion Gap BUN Creatinine Est GFR (CKD-EPI)AfAm Est GFR (CKD-EPI)NonAf POC Glucometer 212 108 Random Glucose Calcium Magnesium Total Bilirubin AST ALT Alkaline Phosphatase Total Protein Albumin 04/27/19 08:33 WBC RBC Hgb Hct MCV MCH MCHC RDW Plt Count MPV Absolute Neuts (auto) Neutrophils % Neutrophils % (Manual) Band Neutrophils % Lymphocytes % Lymphocytes % (Manual) Monocytes % Monocytes % (Manual) Eosinophils % Eosinophils % (Manual) Basophils % Basophils % (Manual) Myelocytes % (Man) Promyelocytes % (Man) Blast Cells % (Manual) Nucleated RBC % Metamyelocytes Hypochromia Platelet Estimate Platelet Comment Polychromasia Poikilocytosis Anisocytosis Microcytosis Macrocytosis Spherocytes Stomatocytes Acanthocytes (Spur) Sodium 133 L Potassium 3.9 Chloride 98 Carbon Dioxide 26 Anion Gap 10 BUN 118.3 H* Creatinine 2.6 H Est GFR (CKD-EPI)AfAm 18.22 Est GFR (CKD-EPI)NonAf 15.72 POC Glucometer Random Glucose 112 H Calcium 8.8 Magnesium 3.0 H Total Bilirubin 0.4 AST 17 ALT 16 Alkaline Phosphatase 98 Total Protein 6.6 Albumin 2.6 L A/P Acute on Chronic Diastolic Heart Failure Acute on Chronic Renal Failure Hyponatremia HTN DM Hyperlipidemia Hypothyroidism GERD h/o Breast Ca h/o CVA Anemia - lasix on hold due to azotemia - monitor urine output, creatinine - daily weights - monitor H/H - O2 to keep SpO2 >90% - inhaled bronchodilators - monitor lytes - DVT prophylaxis Dr Rosa
[2019-04-27 11:32] LABS: ANISOCYTOSIS 1+; MACROCYTOSIS 0; PLATELET ESTIMATE NORMAL
--- NOTE | 2019-04-27 12:08 | PN ---
Progress Note, Physician History of Present Illness: Pt seen and examined at bedside. She is awake and alert. She feels that her breathing is improving. - Current Medication List Current Medications: Active Medications Acetaminophen (Tylenol -) 650 mg PO Q6H PRN PRN Reason: PAIN Last Admin: 04/27/19 09:38 Dose: 650 mg Carvedilol (Coreg -) 25 mg PO BID [facility] Last Admin: 04/27/19 09:39 Dose: 25 mg Famotidine (Pepcid -) 20 mg PO DAILY [facility] Last Admin: 04/27/19 09:40 Dose: 20 mg Furosemide (Lasix -) 40 mg PO BID@0600,1400 [facility] Guaifenesin (Diabetic Tussin Dm -) 5 ml PO Q6H PRN PRN Reason: COUGH Last Admin: 04/27/19 03:43 Dose: 5 ml Hydralazine HCl (Apresoline -) 20 mg PO TID [facility] Last Admin: 04/27/19 06:48 Dose: 20 mg Insulin Aspart (Novolog Vial Sliding Scale -) 1 vial SQ [facility]; Protocol Last Admin: 04/27/19 06:48 Dose: Not Given Insulin Detemir (Levemir Vial) 15 units SQ [facility] Last Admin: 04/26/19 21:54 Dose: 15 units Ipratropium [place] (Atrovent 0.02% Nebulizer -) 1 amp NEB RTID [facility] Last Admin: 04/27/19 07:25 Dose: 1 amp Letrozole (Femara -) 2.5 mg PO DAILY [facility] Last Admin: 04/27/19 09:40 Dose: 2.5 mg Levothyroxine Sodium (Synthroid -) 112 mcg PO DAILY@0700 [facility] Last Admin: 04/27/19 06:48 Dose: 112 mcg Multivitamins/Minerals/Vitamin C (Tab-A-Vit -) 1 tab PO DAILY [facility] Last Admin: 04/27/19 09:39 Dose: 1 tab Polyethylene Glycol (Miralax (For Daily Use) -) 17 gm PO DAILY PRN PRN Reason: CONSTIPATION Last Admin: 04/26/19 17:05 Dose: 17 gm Pregabalin (Lyrica -) 25 mg PO DAILY [facility] Last Admin: 04/27/19 09:40 Dose: Not Given Pregabalin (Lyrica -) 50 mg PO HS [facility] Last Admin: 04/26/19 21:55 Dose: Not Given - Objective Vital Signs: Vital Signs Temperature 98.1 F 04/27/19 09:07 Pulse Rate 74 04/27/19 09:07 Respiratory Rate 20 04/27/19 09:07 Blood Pressure 128/52 L 04/27/19 09:07 O2 Sat by Pulse Oximetry (%) 95 04/26/19 21:00 Constitutional: Yes: Calm Eyes: Yes: Conjunctiva Clear HENT: Yes: Atraumatic Neck: Yes: Supple Cardiovascular: Yes: S1, S2 Respiratory: Yes: CTA Bilaterally Gastrointestinal: Yes: Soft Genitourinary: Yes: WNL Musculoskeletal: Yes: WNL Edema: Yes Edema: LLE: 1+, RLE: 1+ Neurological: Yes: Oriented Psychiatric: Yes: Oriented Labs: CBC, BMP 04/27/19 08:33 04/27/19 08:33 INR, PTT INR 1.01 (0.83-1.09) 04/08/19 22:30 Assessment/Plan Current Medications Generic Name Dose Route Start Last Admin Trade Name Moiseq PRN Reason Stop Dose Admin Acetaminophen 650 mg 04/11/19 13:59 04/27/19 09:38 Tylenol - PO 650 mg Q6H PRN Administration PAIN Carvedilol 25 mg 04/11/19 22:00 04/27/19 09:39 Coreg - PO 25 mg BID [facility] Administration Famotidine 20 mg 04/12/19 10:00 04/27/19 09:40 Pepcid - PO 20 mg DAILY [facility] Administration Furosemide 40 mg 04/27/19 14:00 Lasix - PO BID@0600,1400 [facility] Guaifenesin 5 ml 04/24/19 10:30 04/27/19 03:43 Diabetic Tussin Dm - PO 5 ml Q6H PRN Administration COUGH Hydralazine HCl 20 mg 04/11/19 14:00 04/27/19 06:48 Apresoline - PO 20 mg TID [facility] Administration Insulin Aspart 1 vial 04/11/19 16:30 04/27/19 06:48 Novolog Vial Sliding Scale - SQ Not Given ACHS [facility] Protocol Insulin Detemir 15 units 04/25/19 22:00 04/26/19 21:54 Levemir Vial SQ 15 units [facility] Administration Ipratropium [place] 1 amp 04/25/19 20:00 04/27/19 07:25 Atrovent 0.02% Nebulizer - NEB 1 amp RTID [facility] Administration Letrozole 2.5 mg 04/12/19 10:00 04/27/19 09:40 Femara - PO 2.5 mg DAILY [facility] Administration Levothyroxine Sodium 112 mcg 04/12/19 07:00 04/27/19 06:48 Synthroid - PO 112 mcg DAILY@0700 [facility] Administration Multivitamins/Minerals/Vitamin C 1 tab 04/12/19 10:00 04/27/19 09:39 Tab-A-Vit - PO 1 tab DAILY [facility] Administration Polyethylene Glycol 17 gm 04/25/19 11:41 04/26/19 17:05 Miralax (For Daily Use) - PO 17 gm DAILY PRN Administration CONSTIPATION Pregabalin 25 mg 04/24/19 10:00 04/27/19 09:40 Lyrica - PO Not Given DAILY [facility] Pregabalin 50 mg 04/23/19 22:00 04/26/19 21:55 Lyrica - PO Not Given HS [facility] Impression 1. proteinuria 2. hypothyroid 3. HTN 4. DM 5. fluid overload 6. breast cancer 7. MAURICE 8. CKD Plan - renal function is starting to improve - can resume po lasix - will need outpt follow up - pt does not want HD therapy - renal diet - keep losartan on hold for now - will need to monitor labs as outpt - discussed with medical team Dr Sequeira
--- NOTE | 2019-04-27 12:25 | PN ---
Progress Note, Physician History of Present Illness: stable breathing better - Current Medication List Current Medications: Active Medications Acetaminophen (Tylenol -) 650 mg PO Q6H PRN PRN Reason: PAIN Last Admin: 04/27/19 09:38 Dose: 650 mg Carvedilol (Coreg -) 25 mg PO BID [facility] Last Admin: 04/27/19 09:39 Dose: 25 mg Famotidine (Pepcid -) 20 mg PO DAILY [facility] Last Admin: 04/27/19 09:40 Dose: 20 mg Furosemide (Lasix -) 40 mg PO BID@0600,1400 [facility] Guaifenesin (Diabetic Tussin Dm -) 5 ml PO Q6H PRN PRN Reason: COUGH Last Admin: 04/27/19 03:43 Dose: 5 ml Hydralazine HCl (Apresoline -) 20 mg PO TID [facility] Last Admin: 04/27/19 06:48 Dose: 20 mg Insulin Aspart (Novolog Vial Sliding Scale -) 1 vial SQ [facility]; Protocol Last Admin: 04/27/19 06:48 Dose: Not Given Insulin Detemir (Levemir Vial) 15 units SQ [facility] Last Admin: 04/26/19 21:54 Dose: 15 units Ipratropium [place] (Atrovent 0.02% Nebulizer -) 1 amp NEB RTID [facility] Last Admin: 04/27/19 07:25 Dose: 1 amp Letrozole (Femara -) 2.5 mg PO DAILY [facility] Last Admin: 04/27/19 09:40 Dose: 2.5 mg Levothyroxine Sodium (Synthroid -) 112 mcg PO DAILY@0700 [facility] Last Admin: 04/27/19 06:48 Dose: 112 mcg Multivitamins/Minerals/Vitamin C (Tab-A-Vit -) 1 tab PO DAILY [facility] Last Admin: 04/27/19 09:39 Dose: 1 tab Polyethylene Glycol (Miralax (For Daily Use) -) 17 gm PO DAILY PRN PRN Reason: CONSTIPATION Last Admin: 04/26/19 17:05 Dose: 17 gm Pregabalin (Lyrica -) 25 mg PO DAILY [facility] Last Admin: 04/27/19 09:40 Dose: Not Given Pregabalin (Lyrica -) 50 mg PO [facility] Last Admin: 04/26/19 21:55 Dose: Not Given - Objective Vital Signs: Vital Signs Temperature 98.1 F 04/27/19 09:07 Pulse Rate 74 04/27/19 09:07 Respiratory Rate 20 04/27/19 09:07 Blood Pressure 128/52 L 04/27/19 09:07 O2 Sat by Pulse Oximetry (%) 95 04/26/19 21:00 Constitutional: Yes: No Distress, Calm Cardiovascular: Yes: S1, S2 Respiratory: Yes: Regular, Poor Air Entry Gastrointestinal: Yes: Normal Bowel Sounds, Soft Musculoskeletal: Yes: WNL Extremities: Yes: WNL Neurological: Yes: Alert, Oriented Psychiatric: Yes: Alert, Oriented Labs: CBC, BMP 04/27/19 08:33 04/27/19 08:33 INR, PTT INR 1.01 (0.83-1.09) 04/08/19 22:30 Assessment/Plan Problem List - Problems (1) Acute diastolic (congestive) heart failure Code(s): I50.31 - ACUTE DIASTOLIC (CONGESTIVE) HEART FAILURE (2) Acute kidney injury superimposed on CKD Code(s): N17.9 - ACUTE KIDNEY FAILURE, UNSPECIFIED; N18.9 - CHRONIC KIDNEY DISEASE, UNSPECIFIED (3) Anemia Code(s): D64.9 - ANEMIA, UNSPECIFIED Qualifiers: Anemia type: unspecified type Qualified Code(s): D64.9 - Anemia, unspecified (4) Bilateral leg edema Code(s): R60.0 - LOCALIZED EDEMA (5) Hypothyroid Code(s): E03.9 - HYPOTHYROIDISM, UNSPECIFIED Qualifiers: Hypothyroidism type: unspecified Qualified Code(s): E03.9 - Hypothyroidism , unspecified (6) Shortness of breath Code(s): R06.02 - SHORTNESS OF BREATH (7) Breast cancer, left Code(s): C50.912 - MALIGNANT NEOPLASM OF UNSPECIFIED SITE OF LEFT FEMALE BREAST (8) Diabetes Code(s): E11.9 - TYPE 2 DIABETES MELLITUS WITHOUT COMPLICATIONS Qualifiers: Diabetes mellitus type: type 2 (9) GERD (gastroesophageal reflux disease) Code(s): K21.9 - GASTRO-ESOPHAGEAL REFLUX DISEASE WITHOUT ESOPHAGITIS (10) HTN (hypertension) Code(s): I10 - ESSENTIAL (PRIMARY) HYPERTENSION (11) History of CVA with residual deficit Code(s): I69.30 - UNSPECIFIED SEQUELAE OF CEREBRAL INFARCTION (12) Lower extremity cellulitis Code(s): L03.119 - CELLULITIS OF UNSPECIFIED PART OF LIMB Assessment/Plan 89 y.o. 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 Treated for b/l LE cellulitis with some improvement. Noted to have leukocytosis, LE erythema, worsening renal function and anemia b/l LE cellulitis Leukocytosis SOB b/l LE edema Acute diastolic HF Anemia Acute on chronic RF DM HTN Hx of Lt Breast CA Hypothyroidism Hx of CVAs plan continue current mgmt close watch physio rest as per the team
--- NOTE | 2019-04-27 12:31 | DS ---
Physical Exam: SUBJECTIVE: Patient seen and examined. No events overnight. Patient still complaining of pain. OBJECTIVE: Vital Signs Period Temp Pulse Resp BP Sys/Hernandez Pulse Ox Last 24 Hr 97.7 F-99 F 74-86 20-20 128-156/52-64 95 PHYSICAL EXAM GENERAL: nad HEAD: Normal with no signs of trauma. EYES: PERRL, conjunctiva clear ENT: moist mucous membranes. NECK: supple. LUNGS: decreased breath sounds HEART: RRR ABDOMEN: Soft, nontender, nondistended, normoactive bowel sounds EXTREMITIES: 2+ pulses, +edema b/l LABS Laboratory Results - last 24 hr 04/26/19 04/26/19 04/26/19 08:07 12:28 17:09 WBC RBC Hgb Hct MCV MCH MCHC RDW Plt Count MPV Absolute Neuts (auto) Neutrophils % Neutrophils % (Manual) 51.0 Band Neutrophils % 4.0 Lymphocytes % Lymphocytes % (Manual) 4.0 L Monocytes % Monocytes % (Manual) 21 H Eosinophils % Eosinophils % (Manual) 2.0 D Basophils % Basophils % (Manual) 3.0 H Myelocytes % (Man) 2 D Promyelocytes % (Man) 0 Blast Cells % (Manual) 0 Nucleated RBC % 0 Metamyelocytes 0 D Hypochromia 0 Platelet Estimate Normal Platelet Comment Present Polychromasia 1+ Poikilocytosis 1+ Basophilic Stippling Anisocytosis 1+ Microcytosis 1+ Macrocytosis 0 Spherocytes 1+ Stomatocytes 1+ Acanthocytes (Spur) 1+ Sodium Potassium Chloride Carbon Dioxide Anion Gap BUN Creatinine Est GFR (CKD-EPI)AfAm Est GFR (CKD-EPI)NonAf POC Glucometer 226 174 Random Glucose Calcium Magnesium Total Bilirubin AST ALT Alkaline Phosphatase Total Protein Albumin 04/26/19 04/27/19 04/27/19 21:47 06:47 08:33 WBC 16.5 H RBC 2.43 L Hgb 7.8 L Hct 24.0 L MCV 98.8 H MCH 32.2 MCHC 32.6 RDW 17.3 H Plt Count 234 MPV 8.5 Absolute Neuts (auto) 11.8 H Neutrophils % 71.6 Neutrophils % (Manual) 60.0 Band Neutrophils % 5.0 Lymphocytes % 8.1 Lymphocytes % (Manual) 4.0 L Monocytes % 15.5 H Monocytes % (Manual) 12 H Eosinophils % 4.1 Eosinophils % (Manual) 5.0 H D Basophils % 0.7 Basophils % (Manual) 5.0 H Myelocytes % (Man) 4 H D Promyelocytes % (Man) 0 Blast Cells % (Manual) 0 Nucleated RBC % 0 Metamyelocytes 2 D Hypochromia 0 Platelet Estimate Normal Platelet Comment Present Polychromasia 0 Poikilocytosis 0 Basophilic Stippling 1+ Anisocytosis 1+ Microcytosis 0 Macrocytosis 0 Spherocytes Stomatocytes Acanthocytes (Spur) Sodium Potassium Chloride Carbon Dioxide Anion Gap BUN Creatinine Est GFR (CKD-EPI)AfAm Est GFR (CKD-EPI)NonAf POC Glucometer 212 108 Random Glucose Calcium Magnesium Total Bilirubin AST ALT Alkaline Phosphatase Total Protein Albumin 04/27/19 08:33 WBC RBC Hgb Hct MCV MCH MCHC RDW Plt Count MPV Absolute Neuts (auto) Neutrophils % Neutrophils % (Manual) Band Neutrophils % Lymphocytes % Lymphocytes % (Manual) Monocytes % Monocytes % (Manual) Eosinophils % Eosinophils % (Manual) Basophils % Basophils % (Manual) Myelocytes % (Man) Promyelocytes % (Man) Blast Cells % (Manual) Nucleated RBC % Metamyelocytes Hypochromia Platelet Estimate Platelet Comment Polychromasia Poikilocytosis Basophilic Stippling Anisocytosis Microcytosis Macrocytosis Spherocytes Stomatocytes Acanthocytes (Spur) Sodium 133 L Potassium 3.9 Chloride 98 Carbon Dioxide 26 Anion Gap 10 BUN 118.3 H* Creatinine 2.6 H Est GFR (CKD-EPI)AfAm 18.22 Est GFR (CKD-EPI)NonAf 15.72 POC Glucometer Random Glucose 112 H Calcium 8.8 Magnesium 3.0 H Total Bilirubin 0.4 AST 17 ALT 16 Alkaline Phosphatase 98 Total Protein 6.6 Albumin 2.6 L HOSPITAL COURSE: Date of Admission:04/08/19 This is an 89 year old woman with a history of HTN, hyperlipidemia, type 2 DM, CVAs, hypothyroidism, GERD, breast cancer who presented to the ED with SOB. #Acute on chronic diastolic heart failure #Volume overload likely renal and cardio etiology #MAURICE on CKD #Stage 4 CKD #Chronic Leukocytosis #HTN #DM2 #LLE pain likely sciatica #HLD #Cellulitis #Hypothyroidism #GERD #Hx CVA #Hx Breast CA #Macrocytic Anemia Plan: -clinically improved -cr slowly trending now. currently 2.6. BUN 118 on discharge -Lasix and metolazone held for worsening kidney function -may benefit from short term HD but patient is REFUSING at this time. -She will need to follow up with nephrology in 1 week. -She will need a bmp every 2 days until she sees nephrology. -keep losartan on hold for now -echo with EF 55-60 -NA and fluid restriction -completed abx for cellulitis -changed lyrica to 50mg in morning and 25 at night for better pain control. working well -Hgb stable. currently 7.8. Aspirin held. Patient will need to follow up with Primary care doctor and heme/onc (Dr. Estrada). -SSI, Levemir 15U HS will discharge to SNF Date of Discharge: 04/27/19 Minutes to complete discharge: 35 Discharge Summary Problems reviewed: Yes Reason For Visit: SHORTNESS OF BREATH REST,ACUTE KIDNEY INJURY Current Active Problems Acute diastolic (congestive) heart failure (Acute) Acute kidney injury superimposed on CKD (Acute) Anemia (Acute) Bilateral leg edema (Acute) Hypothyroid (Acute) Lethargy (Acute) Pulmonary vascular congestion (Acute) Shortness of breath (Acute) Condition: Stable - Instructions Diet, Activity, Other Instructions: You were admitted to the hospital because you had difficulty breathing. You will need to follow up with your primary care doctor in 1 week. Follow up with the kidney doctor in 1 week (Dr. Sequeira). Follow up with your hematology/oncology doctor in 1 week. You will need a BMP every 2 days until seen by your primary care or payroll lead. You will need to follow up with nephrology within 7 days after discharge. We have made some changes to your medications. Please take as prescribed. We have held Losartan because of the worsening renal functions. Please discuss with nephrology on when to resume it. We also held your aspirin because of your anemia. Follow up with hematology/ oncology on when to resume it. If you develop shortness of breath, chest pain, nausea, vomiting, fevers, chills , then go to your nearest emergency department. Referrals: Shaq Salinas MD [Primary Care Provider] - 1 Week Kevin Estrada MD [Staff Physician] - 1 Week Neva Sequeira MD [Staff Physician] - 1 Week Disposition: [facility] - Home Medications Comprehensive Discharge Medication List: Ambulatory Orders Multivitamins [Multivit ([facility] Formulary)] 1 tab PO DAILY 06/10/14 Calcium Carbonate/Vitamin D3 [Calcium 500-Vit D3 400 Tablet] 1 each PO DAILY Carvedilol [Coreg -] 25 mg PO BID 06/23/18 Cholecalciferol (Vitamin D3) [Vitamin D -] 400 unit PO DAILY 06/23/18 Famotidine [Pepcid] 40 mg PO DAILY 06/24/18 Letrozole 2.5 mg PO DAILY 06/24/18 Tramadol HCl 50 mg PO TID PRN 06/24/18 Insulin Glargine,Hum.rec.anlog [Lantus Solostar PEN -] 25 units SQ DAILY Furosemide [Lasix -] 40 mg PO BID #30 tablet 04/27/19 Letrozole [Femara -] 2.5 mg PO DAILY tablet 04/27/19 Polyethylene Glycol 3350 [Miralax 119 gm Btl -] 17 gm PO DAILY PRN bottle 04/27 Pregabalin [Lyrica -] 25 mg PO DAILY #30 capsule MDD 75 04/27/19 Pregabalin [Lyrica -] 50 mg PO HS capsule MDD 75 04/27/19 hydrALAZINE HCL [Apresoline -] 20 mg PO TID tablet 04/27/19 This patient is new to me today: Yes Date on this admission: 04/27/19 Emergency Visit: Yes ED Registration Date: 04/08/19 Care time: The patient presented to the Emergency Department on the above date and was hospitalized for further evaluation of their emergent condition. Critical Care patient: No - Discharge Referral Referred to [facility] No ATTENDING PHYSICIAN STATEMENT I saw and evaluated the patient. I reviewed the resident's note and discussed the case with the resident. I agree with the resident's findings and plan as documented. SUBJECTIVE: OBJECTIVE: ASSESSMENT AND PLAN:
[2019-04-27] MEDS: FUROSEMIDE 40 MG TABLET (FP) PO SCH (13:18)
[2019-04-27] MEDS: PREGABALIN 50 MG CAPSULE PO SCH ×2 (22:30→22:45)
[2019-04-27] MEDS: INSULIN (LEVEMIR) 100 UNITS/ML UNITS SQ SCH (22:49)
[2019-04-28] MEDS: hydrALAZINE HCL 10 MG TABLET PO SCH ×3 (06:57→23:06)
[2019-04-28] MEDS: INSULIN SLIDING SCALE (NOVOLOG) 1 VIAL SQ SCH ×4 (06:57→23:10)
[2019-04-28] MEDS: LEVOTHYROXINE NA 112 MCG TABLET (FP) PO SCH (06:58)
[2019-04-28] MEDS: FUROSEMIDE 40 MG TABLET (FP) PO SCH ×2 (06:58→14:57)
[2019-04-28] MEDS: IPRATROPIUM BR 0.02% 0.5 MG/2.5 ML VIAL.NEB. NEB SCH ×3 (08:03→20:45)
--- NOTE | 2019-04-28 08:52 | PN ---
Progress Note (short form) - Note Progress Note: Breathing is overall improving. Some residual nonproductive cough. No acute events overnight. Intake & Output 04/25/19 04/26/19 04/27/19 04/28/19 23:59 23:59 23:59 23:59 Intake Total 400 300 0 Balance 400 300 0 Last Vital Signs Temp Pulse Resp BP Pulse Ox 97.5 F L 72 20 131/57 L 97 04/28/19 06:00 04/28/19 06:00 04/28/19 06:00 04/28/19 06:00 04/27/19 21:00 Active Medications Acetaminophen (Tylenol -) 650 mg PO Q6H PRN PRN Reason: PAIN Last Admin: 04/27/19 22:46 Dose: 650 mg Carvedilol (Coreg -) 25 mg PO BID [facility] Last Admin: 04/27/19 22:45 Dose: 25 mg Famotidine (Pepcid -) 20 mg PO DAILY [facility] Last Admin: 04/27/19 09:40 Dose: 20 mg Furosemide (Lasix -) 40 mg PO BID@0600,1400 [facility] Last Admin: 04/28/19 06:58 Dose: 40 mg Guaifenesin (Diabetic Tussin Dm -) 5 ml PO Q6H PRN PRN Reason: COUGH Last Admin: 04/27/19 22:55 Dose: 5 ml Hydralazine HCl (Apresoline -) 20 mg PO TID [facility] Last Admin: 04/28/19 06:57 Dose: 20 mg Insulin Aspart (Novolog Vial Sliding Scale -) 1 vial SQ [facility]; Protocol Last Admin: 04/28/19 06:57 Dose: Not Given Insulin Detemir (Levemir Vial) 15 units SQ HS [facility] Last Admin: 04/27/19 22:49 Dose: 15 units Ipratropium [place] (Atrovent 0.02% Nebulizer -) 1 amp NEB RTID [facility] Last Admin: 04/28/19 08:03 Dose: 1 amp Letrozole (Femara -) 2.5 mg PO DAILY [facility] Last Admin: 04/27/19 09:40 Dose: 2.5 mg Levothyroxine Sodium (Synthroid -) 112 mcg PO DAILY@0700 [facility] Last Admin: 04/28/19 06:58 Dose: 112 mcg Multivitamins/Minerals/Vitamin C (Tab-A-Vit -) 1 tab PO DAILY [facility] Last Admin: 04/27/19 09:39 Dose: 1 tab Polyethylene Glycol (Miralax (For Daily Use) -) 17 gm PO DAILY PRN PRN Reason: CONSTIPATION Last Admin: 04/26/19 17:05 Dose: 17 gm Pregabalin (Lyrica -) 25 mg PO DAILY [facility] Last Admin: 04/27/19 09:40 Dose: Not Given Pregabalin (Lyrica -) 50 mg PO HS [facility] Last Admin: 04/27/19 22:30 Dose: Not Given Gen: NAD at rest Heart: RRR Lung: decreased breath sounds at the bases Abd: soft, nontender Ext: less edema Laboratory Results - last 24 hr 04/27/19 04/27/19 04/27/19 08:33 08:33 12:44 WBC 16.5 H RBC 2.43 L Hgb 7.8 L Hct 24.0 L MCV 98.8 H MCH 32.2 MCHC 32.6 RDW 17.3 H Plt Count 234 MPV 8.5 Absolute Neuts (auto) 11.8 H Neutrophils % 71.6 Neutrophils % (Manual) 60.0 Band Neutrophils % 5.0 Lymphocytes % 8.1 Lymphocytes % (Manual) 4.0 L Monocytes % 15.5 H Monocytes % (Manual) 12 H Eosinophils % 4.1 Eosinophils % (Manual) 5.0 H D Basophils % 0.7 Basophils % (Manual) 5.0 H Myelocytes % (Man) 4 H D Promyelocytes % (Man) 0 Blast Cells % (Manual) 0 Nucleated RBC % 0 Metamyelocytes 2 D Hypochromia 0 Platelet Estimate Normal Platelet Comment Present Polychromasia 0 Poikilocytosis 0 Basophilic Stippling 1+ Anisocytosis 1+ Microcytosis 0 Macrocytosis 0 Sodium 133 L Potassium 3.9 Chloride 98 Carbon Dioxide 26 Anion Gap 10 BUN 118.3 H* Creatinine 2.6 H Est GFR (CKD-EPI)AfAm 18.22 Est GFR (CKD-EPI)NonAf 15.72 POC Glucometer 203 Random Glucose 112 H Calcium 8.8 Magnesium 3.0 H Total Bilirubin 0.4 AST 17 ALT 16 Alkaline Phosphatase 98 Total Protein 6.6 Albumin 2.6 L 04/27/19 04/27/19 04/28/19 17:14 22:39 06:55 WBC RBC Hgb Hct MCV MCH MCHC RDW Plt Count MPV Absolute Neuts (auto) Neutrophils % Neutrophils % (Manual) Band Neutrophils % Lymphocytes % Lymphocytes % (Manual) Monocytes % Monocytes % (Manual) Eosinophils % Eosinophils % (Manual) Basophils % Basophils % (Manual) Myelocytes % (Man) Promyelocytes % (Man) Blast Cells % (Manual) Nucleated RBC % Metamyelocytes Hypochromia Platelet Estimate Platelet Comment Polychromasia Poikilocytosis Basophilic Stippling Anisocytosis Microcytosis Macrocytosis Sodium Potassium Chloride Carbon Dioxide Anion Gap BUN Creatinine Est GFR (CKD-EPI)AfAm Est GFR (CKD-EPI)NonAf POC Glucometer 170 204 143 Random Glucose Calcium Magnesium Total Bilirubin AST ALT Alkaline Phosphatase Total Protein Albumin A/P Acute on Chronic Diastolic Heart Failure Acute on Chronic Renal Failure Hyponatremia HTN DM Hyperlipidemia Hypothyroidism GERD h/o Breast Ca h/o CVA Anemia - lasix per Renal - monitor urine output, creatinine - daily weights - monitor H/H - O2 to keep SpO2 >90% - inhaled bronchodilators - monitor lytes - DVT prophylaxis - DC planning Dr Rosa
[2019-04-28] MEDS: CARVEDILOL 25 MG TABLET (FP) PO SCH ×2 (09:48→23:06)
[2019-04-28] MEDS: MULTIVITAMINS (DAILY MVI) TABLET (FP) PO SCH (09:48)
[2019-04-28] MEDS: LETROZOLE 2.5 MG TABLET (FP) PO SCH (09:50)
[2019-04-28] MEDS: PREGABALIN 25 MG CAPSULE PO SCH (09:52)
[2019-04-28] MEDS: FAMOTIDINE 20 MG TABLET PO SCH (09:54)
--- NOTE | 2019-04-28 11:03 | PN ---
Progress Note, Physician History of Present Illness: stable doing well - Current Medication List Current Medications: Active Medications Acetaminophen (Tylenol -) 650 mg PO Q6H PRN PRN Reason: PAIN Last Admin: 04/27/19 22:46 Dose: 650 mg Carvedilol (Coreg -) 25 mg PO BID [facility] Last Admin: 04/28/19 09:48 Dose: 25 mg Famotidine (Pepcid -) 20 mg PO DAILY [facility] Last Admin: 04/28/19 09:54 Dose: 20 mg Furosemide (Lasix -) 40 mg PO BID@0600,1400 [facility] Last Admin: 04/28/19 06:58 Dose: 40 mg Guaifenesin (Diabetic Tussin Dm -) 5 ml PO Q6H PRN PRN Reason: COUGH Last Admin: 04/27/19 22:55 Dose: 5 ml Hydralazine HCl (Apresoline -) 20 mg PO TID [facility] Last Admin: 04/28/19 06:57 Dose: 20 mg Insulin Aspart (Novolog Vial Sliding Scale -) 1 vial SQ [facility]; Protocol Last Admin: 04/28/19 06:57 Dose: Not Given Insulin Detemir (Levemir Vial) 15 units SQ [facility] Last Admin: 04/27/19 22:49 Dose: 15 units Ipratropium [place] (Atrovent 0.02% Nebulizer -) 1 amp NEB RTID [facility] Last Admin: 04/28/19 08:03 Dose: 1 amp Letrozole (Femara -) 2.5 mg PO DAILY [facility] Last Admin: 04/28/19 09:50 Dose: 2.5 mg Levothyroxine Sodium (Synthroid -) 112 mcg PO DAILY@0700 [facility] Last Admin: 04/28/19 06:58 Dose: 112 mcg Multivitamins/Minerals/Vitamin C (Tab-A-Vit -) 1 tab PO DAILY [facility] Last Admin: 04/28/19 09:48 Dose: 1 tab Polyethylene Glycol (Miralax (For Daily Use) -) 17 gm PO DAILY PRN PRN Reason: CONSTIPATION Last Admin: 04/26/19 17:05 Dose: 17 gm Pregabalin (Lyrica -) 25 mg PO DAILY [facility] Last Admin: 04/28/19 09:52 Dose: Not Given Pregabalin (Lyrica -) 50 mg PO [facility] Last Admin: 04/27/19 22:30 Dose: Not Given - Objective Vital Signs: Vital Signs Temperature 97.5 F L 04/28/19 06:00 Pulse Rate 72 04/28/19 06:00 Respiratory Rate 20 04/28/19 06:00 Blood Pressure 131/57 L 04/28/19 06:00 O2 Sat by Pulse Oximetry (%) 97 04/27/19 21:00 Constitutional: Yes: No Distress, Calm Cardiovascular: Yes: S1, S2 Respiratory: Yes: Regular, CTA Bilaterally Gastrointestinal: Yes: Normal Bowel Sounds, Soft Musculoskeletal: Yes: WNL Extremities: Yes: Other Edema: LLE: 1+, RLE: 1+ Neurological: Yes: Alert, Oriented Psychiatric: Yes: Alert, Oriented Labs: CBC, BMP 04/27/19 08:33 04/27/19 08:33 INR, PTT INR 1.01 (0.83-1.09) 04/08/19 22:30 Assessment/Plan Problem List - Problems (1) Acute diastolic (congestive) heart failure Code(s): I50.31 - ACUTE DIASTOLIC (CONGESTIVE) HEART FAILURE (2) Acute kidney injury superimposed on CKD Code(s): N17.9 - ACUTE KIDNEY FAILURE, UNSPECIFIED; N18.9 - CHRONIC KIDNEY DISEASE, UNSPECIFIED (3) Anemia Code(s): D64.9 - ANEMIA, UNSPECIFIED Qualifiers: Anemia type: unspecified type Qualified Code(s): D64.9 - Anemia, unspecified (4) Bilateral leg edema Code(s): R60.0 - LOCALIZED EDEMA (5) Hypothyroid Code(s): E03.9 - HYPOTHYROIDISM, UNSPECIFIED Qualifiers: Hypothyroidism type: unspecified Qualified Code(s): E03.9 - Hypothyroidism , unspecified (6) Shortness of breath Code(s): R06.02 - SHORTNESS OF BREATH (7) Breast cancer, left Code(s): C50.912 - MALIGNANT NEOPLASM OF UNSPECIFIED SITE OF LEFT FEMALE BREAST (8) Diabetes Code(s): E11.9 - TYPE 2 DIABETES MELLITUS WITHOUT COMPLICATIONS Qualifiers: Diabetes mellitus type: type 2 (9) GERD (gastroesophageal reflux disease) Code(s): K21.9 - GASTRO-ESOPHAGEAL REFLUX DISEASE WITHOUT ESOPHAGITIS (10) HTN (hypertension) Code(s): I10 - ESSENTIAL (PRIMARY) HYPERTENSION (11) History of CVA with residual deficit Code(s): I69.30 - UNSPECIFIED SEQUELAE OF CEREBRAL INFARCTION (12) Lower extremity cellulitis Code(s): L03.119 - CELLULITIS OF UNSPECIFIED PART OF LIMB Assessment/Plan 89 y.o. 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 Treated for b/l LE cellulitis with some improvement. Noted to have leukocytosis, LE erythema, worsening renal function and anemia b/l LE cellulitis Leukocytosis SOB b/l LE edema Acute diastolic HF Anemia Acute on chronic RF DM HTN Hx of Lt Breast CA Hypothyroidism Hx of CVAs plan continue current mgmt close watch physio rest as per the team
--- NOTE | 2019-04-28 12:03 | PN ---
Physical Exam: SUBJECTIVE: Patient seen and examined. No events overnight. Patient offers no complaints. OBJECTIVE: Vital Signs Period Temp Pulse Resp BP Sys/Hernandez Pulse Ox Last 24 Hr 97.5 F-98.8 F 71-80 20-20 105-141/50-74 97 GENERAL: nad, sitting up in bed eating breakfast. HEAD: Normal with no signs of trauma. EYES: PERRL, conjunctiva clear ENT: moist mucous membranes. NECK: supple. LUNGS: decreased breath sounds HEART: RRR ABDOMEN: Soft, nontender, nondistended, normoactive bowel sounds EXTREMITIES: 2+ pulses, +edema b/l less today Laboratory Results - last 24 hr 04/27/19 04/27/19 04/27/19 12:44 17:14 22:39 POC Glucometer 203 170 204 04/28/19 06:55 POC Glucometer 143 Active Medications Generic Name Dose Route Start Last Admin Trade Name Freq PRN Reason Stop Dose Admin Acetaminophen 650 mg 04/11/19 13:59 04/27/19 22:46 Tylenol - PO 650 mg Q6H PRN Administration PAIN Carvedilol 25 mg 04/11/19 22:00 04/28/19 09:48 Coreg - PO 25 mg BID AMRIT Administration Famotidine 20 mg 04/12/19 10:00 04/28/19 09:54 Pepcid - PO 20 mg DAILY AMRIT Administration Furosemide 40 mg 04/27/19 14:00 04/28/19 06:58 Lasix - PO 40 mg BID@0600,1400 AM[facility]IT Administration Guaifenesin 5 ml 04/24/19 10:30 04/27/19 22:55 Diabetic Tussin Dm - PO 5 ml Q6H PRN Administration COUGH Hydralazine HCl 20 mg 04/11/19 14:00 04/28/19 06:57 Apresoline - PO 20 mg TID AMRIT Administration Insulin Aspart 1 vial 04/11/19 16:30 04/28/19 06:57 Novolog Vial Sliding Scale - SQ Not Given ACHS [facility] Protocol Insulin Detemir 15 units 04/25/19 22:00 04/27/19 22:49 Levemir Vial SQ 15 units HS AMRIT Administration Ipratropium [place] 1 amp 04/25/19 20:00 04/28/19 08:03 Atrovent 0.02% Nebulizer - NEB 1 amp RTID AMRIT Administration Letrozole 2.5 mg 04/12/19 10:00 04/28/19 09:50 Femara - PO 2.5 mg DAILY AMRIT Administration Levothyroxine Sodium 112 mcg 04/12/19 07:00 04/28/19 06:58 Synthroid - PO 112 mcg DAILY@0700 [facility]IT Administration Multivitamins/Minerals/Vitamin C 1 tab 04/12/19 10:00 04/28/19 09:48 Tab-A-Vit - PO 1 tab DAILY [facility]RIT Administration Polyethylene Glycol 17 gm 04/25/19 11:41 04/26/19 17:05 Miralax (For Daily Use) - PO 17 gm DAILY PRN Administration CONSTIPATION Pregabalin 25 mg 04/24/19 10:00 04/28/19 09:52 Lyrica - PO Not Given DAILY AMRIT Pregabalin 50 mg 04/23/19 22:00 04/27/19 22:30 Lyrica - PO Not Given HS AMRIT ASSESSMENT/PLAN: This is an 89 year old woman with a history of HTN, hyperlipidemia, type 2 DM, CVAs, hypothyroidism, GERD, breast cancer who presented to the ED with SOB. 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 cr slowly trending now. -Lasix and metolazone held for worsening kidney function -may benefit from short term HD but patient is REFUSING at this time. -She will need to follow up with nephrology closely outpatient -keep losartan on hold for now -echo with EF 55-60 -NA and fluid restriction -completed abx for cellulitis -changed lyrica to 50mg in morning and 25 at night for better pain control. working well -Hgb stable. currently 7.8. Aspirin held. Patient will need to follow up with Primary care doctor and heme/onc (Dr. Estrada). -SSI, Levemir 15U HS -had long discussion with daughter woody regarding patient's condition. Daughters main concern is fear of mother not getting the adequate follow up in SNF and outpatient. She is aware that her mother may require dialysis but patient currently refusing at this time. all questions answered. -anticipate discharge in the morning Visit type - Emergency Visit Emergency Visit: No - New Patient This patient is new to me today: Yes Date on this admission: 05/03/19 - Critical Care Critical Care patient: No ATTENDING PHYSICIAN STATEMENT I saw and evaluated the patient. I reviewed the resident's note and discussed the case with the resident. I agree with the resident's findings and plan as documented. SUBJECTIVE: OBJECTIVE: ASSESSMENT AND PLAN:
--- NOTE | 2019-04-28 12:53 | PN ---
Teaching Attending Note Name of Resident: Low Noble ATTENDING PHYSICIAN STATEMENT I saw and evaluated the patient. I reviewed the resident's note and discussed the case with the resident. I agree with the resident's findings and plan as documented. SUBJECTIVE: Patient remained at baseline denies any shortness of chest pain OBJECTIVE: Vital Signs Temperature 97.5 F L 04/28/19 06:00 Pulse Rate 72 04/28/19 06:00 Respiratory Rate 20 04/28/19 06:00 Blood Pressure 131/57 L 04/28/19 06:00 O2 Sat by Pulse Oximetry (%) 97 04/27/19 21:00 General: Elderly woman, comfortable, not in distress HEENT; mucous membranes moist, no anemia, no jaundice, PERRLA, no nystagmus Neck: No JVD, supple, no bruit, thyroid palpably normal, normal carotid pulsations. Chest: Nontender, clear to auscultation CVS: S1-S2 regular no murmur/gallop/rub Abdomen: Nondistended, soft, bowel sounds present. 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 Code(s): D64.9 - ANEMIA, UNSPECIFIED Qualifiers: Anemia type: unspecified type Qualified Code(s): D64.9 - Anemia, unspecified (3) Acute kidney injury superimposed on CKD Assessment/Plan: Due to diuretics or cardiorenal syndrome rising BUN/creatinine we will follow- up renal recommendations. BUN remained stable nephrology cleared for discharge and recommended to resume Lasix 40 mg twice daily and periodic B[facility]inine [facility] Code(s): N17.9 - ACUTE KIDNEY FAILURE, UNSPECIFIED; N18.9 - CHRONIC KIDNEY DISEASE, UNSPECIFIED (4) Diabetes Assessment/Plan: Optimize glycemic control Code(s): E11.9 - TYPE 2 DIABETES MELLITUS WITHOUT COMPLICATIONS Qualifiers: Diabetes mellitus type: type 2 (5) Hypothyroid Assessment/Plan: Continue levothyroxine Code(s): E03.9 - HYPOTHYROIDISM, UNSPECIFIED Qualifiers: Hypothyroidism type: unspecified Qualified Code(s): E03.9 - Hypothyroidism , unspecified (6) HTN (hypertension) Assessment/Plan: Well-controlled continue all home medication Code(s): I10 - ESSENTIAL (PRIMARY) HYPERTENSION (7) Shortness of breath Assessment/Plan: Improving on current management follow-up pulmonary recommendations Code(s): R06.02 - SHORTNESS OF BREATH
--- NOTE | 2019-04-28 14:03 | PN ---
Progress Note (short form) - Note Progress Note: s: no cp palps dizzy sob Current Medications Generic Name Dose Route Start Last Admin Trade Name Freq PRN Reason Stop Dose Admin Acetaminophen 650 mg 04/11/19 13:59 04/27/19 22:46 Tylenol - PO 650 mg Q6H PRN Administration PAIN Carvedilol 25 mg 04/11/19 22:00 04/28/19 09:48 Coreg - PO 25 mg BID AMRIT Administration Famotidine 20 mg 04/12/19 10:00 04/28/19 09:54 Pepcid - PO 20 mg DAILY AMRIT Administration Furosemide 40 mg 04/27/19 14:00 04/28/19 06:58 Lasix - PO 40 mg BID@0600,1400 AMRIT Administration Guaifenesin 5 ml 04/24/19 10:30 04/27/19 22:55 Diabetic Tussin Dm - PO 5 ml Q6H PRN Administration COUGH Hydralazine HCl 20 mg 04/11/19 14:00 04/28/19 06:57 Apresoline - PO 20 mg TID AMRIT Administration Insulin Aspart 1 vial 04/11/19 16:30 04/28/19 12:28 Novolog Vial Sliding Scale - SQ 6 units ACHS AMRIT Administration Protocol Insulin Detemir 15 units 04/25/19 22:00 04/27/19 22:49 Levemir Vial SQ 15 units HS AMRIT Administration Ipratropium [place] 1 amp 04/25/19 20:00 04/28/19 08:03 Atrovent 0.02% Nebulizer - NEB 1 amp RTID AMRIT Administration Letrozole 2.5 mg 04/12/19 10:00 04/28/19 09:50 Femara - PO 2.5 mg DAILY AMRIT Administration Levothyroxine Sodium 112 mcg 04/12/19 07:00 04/28/19 06:58 Synthroid - PO 112 mcg DAILY@0700 AM[facility]IT Administration Multivitamins/Minerals/Vitamin C 1 tab 04/12/19 10:00 04/28/19 09:48 Tab-A-Vit - PO 1 tab DAILY AMRIT Administration Polyethylene Glycol 17 gm 04/25/19 11:41 04/26/19 17:05 Miralax (For Daily Use) - PO 17 gm DAILY PRN Administration CONSTIPATION Pregabalin 25 mg 04/24/19 10:00 04/28/19 09:52 Lyrica - PO Not Given DAILY AMRIT Pregabalin 50 mg 04/23/19 22:00 04/27/19 22:30 Lyrica - PO Not Given HS AMRIT Vital Signs Period Temp Pulse Resp BP Sys/Hernandez Pulse Ox Last 24 Hr 97.5 F-97.8 F 72-80 20-20 131-141/50-58 97 Constitutional: Yes: Well Nourished, No Distress, Calm Cardiovascular: Yes: Regular Rate and Rhythm, JVD, S1, S2. No: Gallop, Murmur Respiratory: Yes: Regular, CTA Bilaterally. No: Accessory Muscle Use, Rales, Wheezes Extremities: No: Cold Edema: trace le edema bl Neurological: Yes: Alert, Oriented Psychiatric: No: Agitated CBC, BMP 04/27/19 08:33 04/27/19 08:33 Assessment/Plan EKG: sinus,nl intervals, no ischemic changes CXR: + congestive changes echo 03/2019 nl LV function, mild MR, mild TR, PASP at least 49 mmHg acute diastolic heart failure exacerbation: - recent echo nl LV function, mild pulm HTN - vol status improved after iv lasix. lasix held due to bun/cr rising, now improving and on po lasix now for maintenance lower ext cellulitis: - manage per ID, primary HTN - cont current meds MAURICE on CKD: - cr improving - renal following cp: -resolved -ecg unremarkable -trop neg x2 -monitor for now
[2019-04-28] MEDS: ACETAMINOPHEN 325 MG TABLET (FP) PO PRN ×2 (14:55→23:24)
[2019-04-28 14:58] LABS: ALBUMIN 2.7 g/dl (3.4-5.0); BILIRUBIN,TOTAL 0.4 mg/dL (0.2-1); CALCIUM 8.5 mg/dL (8.5-10.1); CREATININE 2.7 mg/dL (0.55-1.3); POTASSIUM 3.7 mmol/L (3.5-5.1); TOT PROT 6.6 g/dl (6.4-8.2)
[2019-04-28 15:22] LABS: BLOOD UREA NITROGEN 114.9 mg/dL (7-18)
[2019-04-28] MEDS: guaiFENesin/D-M SUGAR-FREE/ACLHOL-FREE 118 ML BOTTLE PO PRN (17:20)
--- NOTE | 2019-04-28 17:31 | PN ---
Progress Note, Physician History of Present Illness: Pt seen and examined at bedside. She is awake and alert. - Current Medication List Current Medications: Active Medications Acetaminophen (Tylenol -) 650 mg PO Q6H PRN PRN Reason: PAIN Last Admin: 04/28/19 14:55 Dose: 650 mg Carvedilol (Coreg -) 25 mg PO BID [facility] Last Admin: 04/28/19 09:48 Dose: 25 mg Famotidine (Pepcid -) 20 mg PO DAILY [facility] Last Admin: 04/28/19 09:54 Dose: 20 mg Furosemide (Lasix -) 40 mg PO BID@0600,1400 [facility] Last Admin: 04/28/19 14:57 Dose: 40 mg Guaifenesin (Diabetic Tussin Dm -) 5 ml PO Q6H PRN PRN Reason: COUGH Last Admin: 04/28/19 17:20 Dose: 5 ml Hydralazine HCl (Apresoline -) 20 mg PO TID [facility] Last Admin: 04/28/19 14:57 Dose: 20 mg Insulin Aspart (Novolog Vial Sliding Scale -) 1 vial SQ [facility]; Protocol Last Admin: 04/28/19 17:26 Dose: Not Given Insulin Detemir (Levemir Vial) 15 units SQ [facility] Last Admin: 04/27/19 22:49 Dose: 15 units Ipratropium [place] (Atrovent 0.02% Nebulizer -) 1 amp NEB RTID [facility] Last Admin: 04/28/19 14:14 Dose: 1 amp Letrozole (Femara -) 2.5 mg PO DAILY [facility] Last Admin: 04/28/19 09:50 Dose: 2.5 mg Levothyroxine Sodium (Synthroid -) 112 mcg PO DAILY@0700 [facility] Last Admin: 04/28/19 06:58 Dose: 112 mcg Multivitamins/Minerals/Vitamin C (Tab-A-Vit -) 1 tab PO DAILY [facility] Last Admin: 04/28/19 09:48 Dose: 1 tab Polyethylene Glycol (Miralax (For Daily Use) -) 17 gm PO DAILY PRN PRN Reason: CONSTIPATION Last Admin: 04/26/19 17:05 Dose: 17 gm Pregabalin (Lyrica -) 25 mg PO DAILY [facility] Last Admin: 04/28/19 09:52 Dose: Not Given Pregabalin (Lyrica -) 50 mg PO [facility] Last Admin: 04/27/19 22:30 Dose: Not Given - Objective Vital Signs: Vital Signs Temperature 98.6 F 04/28/19 14:00 Pulse Rate 79 04/28/19 14:00 Respiratory Rate 20 04/28/19 14:00 Blood Pressure 147/64 04/28/19 14:00 O2 Sat by Pulse Oximetry (%) 96 04/28/19 09:00 Constitutional: Yes: Calm Eyes: Yes: Conjunctiva Clear HENT: Yes: Atraumatic Neck: Yes: Supple Cardiovascular: Yes: S1, S2 Respiratory: Yes: CTA Bilaterally Gastrointestinal: Yes: Soft Genitourinary: Yes: WNL Musculoskeletal: Yes: WNL Edema: Yes Edema: LLE: 1+, RLE: 1+ Neurological: Yes: Oriented Psychiatric: Yes: Oriented Labs: CBC, BMP 04/27/19 08:33 04/28/19 13:30 INR, PTT INR 1.01 (0.83-1.09) 04/08/19 22:30 Assessment/Plan Current Medications Generic Name Dose Route Start Last Admin Trade Name Freq PRN Reason Stop Dose Admin Acetaminophen 650 mg 04/11/19 13:59 04/28/19 14:55 Tylenol - PO 650 mg Q6H PRN Administration PAIN Carvedilol 25 mg 04/11/19 22:00 04/28/19 09:48 Coreg - PO 25 mg BID AMRIT Administration Famotidine 20 mg 04/12/19 10:00 04/28/19 09:54 Pepcid - PO 20 mg DAILY [facility]IT Administration Furosemide 40 mg 04/27/19 14:00 04/28/19 14:57 Lasix - PO 40 mg BID@0600,1400 [facility] Administration Guaifenesin 5 ml 04/24/19 10:30 04/28/19 17:20 Diabetic Tussin Dm - PO 5 ml Q6H PRN Administration COUGH Hydralazine HCl 20 mg 04/11/19 14:00 04/28/19 14:57 Apresoline - PO 20 mg TID AMRIT Administration Insulin Aspart 1 vial 04/11/19 16:30 04/28/19 17:26 Novolog Vial Sliding Scale - SQ Not Given ACHS [facility] Protocol Insulin Detemir 15 units 04/25/19 22:00 04/27/19 22:49 Levemir Vial SQ 15 units HS [facility]IT Administration Ipratropium [place] 1 amp 04/25/19 20:00 04/28/19 14:14 Atrovent 0.02% Nebulizer - NEB 1 amp RTID AMRIT Administration Letrozole 2.5 mg 04/12/19 10:00 04/28/19 09:50 Femara - PO 2.5 mg DAILY [facility]IT Administration Levothyroxine Sodium 112 mcg 04/12/19 07:00 04/28/19 06:58 Synthroid - PO 112 mcg DAILY@0700 [facility] Administration Multivitamins/Minerals/Vitamin C 1 tab 04/12/19 10:00 04/28/19 09:48 Tab-A-Vit - PO 1 tab DAILY [facility]IT Administration Polyethylene Glycol 17 gm 04/25/19 11:41 04/26/19 17:05 Miralax (For Daily Use) - PO 17 gm DAILY PRN Administration CONSTIPATION Pregabalin 25 mg 04/24/19 10:00 04/28/19 09:52 Lyrica - PO Not Given DAILY AMRIT Pregabalin 50 mg 04/23/19 22:00 04/27/19 22:30 Lyrica - PO Not Given HS AMRIT Impression 1. proteinuria 2. hypothyroid 3. HTN 4. DM 5. fluid overload 6. breast cancer 7. MAURICE 8. CKD Plan - will change lasix to 40 mg po daily - monitor renal function - pt does not want HD therapy - can see pt in office - renal diet - keep losartan on hold for now Dr Seqeuira
[2019-04-28] MEDS: PREGABALIN 50 MG CAPSULE PO SCH (23:06)
[2019-04-28] MEDS: INSULIN (LEVEMIR) 100 UNITS/ML UNITS SQ SCH (23:10)
[2019-04-29] MEDS: hydrALAZINE HCL 10 MG TABLET PO SCH (06:23)
[2019-04-29] MEDS: LEVOTHYROXINE NA 112 MCG TABLET (FP) PO SCH (06:24)
[2019-04-29] MEDS: INSULIN SLIDING SCALE (NOVOLOG) 1 VIAL SQ SCH ×2 (06:26→12:07)
[2019-04-29] MEDS: IPRATROPIUM BR 0.02% 0.5 MG/2.5 ML VIAL.NEB. NEB SCH (07:30)
[2019-04-29 08:53] LABS: BASO % 1.1 % (0-2.0); EOS % 6.2 % (0-4.5); HEMATOCRIT 21.8 % (32.4-45.2); HEMOGLOBIN 7.3 GM/dL (10.7-15.3); LYMPH % 8.7 % (8-40); MCH 32.8 pg (25.7-33.7); MCHC 33.3 g/dl (32.0-36.0); MEAN CELL VOLUME 98.4 fl (80-96); MEAN PLT VOLUME 8.2 fl (7.5-11.1); MONO % 10.2 % (3.8-10.2); NEUT % 73.8 % (42.8-82.8); PLATELET COUNT 211 K/MM3 (134-434); RBC 2.21 M/mm3 (3.60-5.2); RDW 17.4 % (11.6-15.6); WHITE BLOOD COUNT 17.9 K/mm3 (4.0-10.0)
[2019-04-29 09:11] LABS: ALBUMIN 2.6 g/dl (3.4-5.0); BILIRUBIN,TOTAL 0.3 mg/dL (0.2-1); BLOOD UREA NITROGEN 102.3 mg/dL (7-18); CALCIUM 8.4 mg/dL (8.5-10.1); CREATININE 2.6 mg/dL (0.55-1.3); POTASSIUM 3.6 mmol/L (3.5-5.1); TOT PROT 6.2 g/dl (6.4-8.2)
--- NOTE | 2019-04-29 09:48 | PN ---
Teaching Attending Note Name of Resident: Low Noble ATTENDING PHYSICIAN STATEMENT I saw and evaluated the patient. I reviewed the resident's note and discussed the case with the resident. I agree with the resident's findings and plan as documented. SUBJECTIVE: OBJECTIVE: Vital Signs Temperature 98.3 F 04/29/19 06:00 Pulse Rate 71 04/29/19 06:00 Respiratory Rate 20 04/29/19 06:00 Blood Pressure 136/49 L 04/29/19 06:00 O2 Sat by Pulse Oximetry (%) 96 04/28/19 21:00 General: Elderly woman, comfortable, not in distress HEENT; mucous membranes moist, no anemia, no jaundice, PERRLA, no nystagmus Neck: No JVD, supple, no bruit, thyroid palpably normal, normal carotid pulsations. Chest: Nontender, clear to auscultation CVS: S1-S2 regular no murmur/gallop/rub Abdomen: Nondistended, soft, bowel sounds present. 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 Code(s): D64.9 - ANEMIA, UNSPECIFIED Qualifiers: Anemia type: unspecified type Qualified Code(s): D64.9 - Anemia, unspecified (3) Acute kidney injury superimposed on CKD Assessment/Plan: Due to diuretics or cardiorenal syndrome rising BUN/creatinine we will follow- up renal recommendations. BUN remained stable nephrology cleared for discharge and recommended to resume Lasix 40 mg twice daily and periodic [facility] Code(s): N17.9 - ACUTE KIDNEY FAILURE, UNSPECIFIED; N18.9 - CHRONIC KIDNEY DISEASE, UNSPECIFIED (4) Diabetes Assessment/Plan: Optimize glycemic control Code(s): E11.9 - TYPE 2 DIABETES MELLITUS WITHOUT COMPLICATIONS Qualifiers: Diabetes mellitus type: type 2 (5) Hypothyroid Assessment/Plan: Continue levothyroxine Code(s): E03.9 - HYPOTHYROIDISM, UNSPECIFIED Qualifiers: Hypothyroidism type: unspecified Qualified Code(s): E03.9 - Hypothyroidism , unspecified (6) HTN (hypertension) Assessment/Plan: Well-controlled continue all home medication Code(s): I10 - ESSENTIAL (PRIMARY) HYPERTENSION (7) Shortness of breath Assessment/Plan: Improving on current management follow-up pulmonary recommendations Code(s): R06.02 - SHORTNESS OF BREATH
[2019-04-29 09:49] VITALS: BP 137/78; PULSE 76; TEMP 97.9
[2019-04-29] MEDS: CARVEDILOL 25 MG TABLET (FP) PO SCH (09:51)
[2019-04-29] MEDS: MULTIVITAMINS (DAILY MVI) TABLET (FP) PO SCH (09:51)
[2019-04-29] MEDS: LETROZOLE 2.5 MG TABLET (FP) PO SCH (09:51)
[2019-04-29] MEDS: FAMOTIDINE 20 MG TABLET PO SCH (09:52)
[2019-04-29] MEDS: PREGABALIN 25 MG CAPSULE PO SCH (09:52)
[2019-04-29] MEDS ORDERED: FUROSEMIDE 40 MG TABLET (FP) PO SCH (10:00)
--- NOTE | 2019-04-29 10:25 | PN ---
Progress Note (short form) - Note Progress Note: Breathing is overall improving. Still some residual nonproductive cough. No acute events overnight. Intake & Output 04/26/19 04/27/19 04/28/19 04/29/19 23:59 23:59 23:59 23:59 Intake Total 400 300 250 200 Balance 400 300 250 200 Last Vital Signs Temp Pulse Resp BP Pulse Ox 97.9 F 76 20 137/78 96 04/29/19 09:49 04/29/19 09:49 04/29/19 09:49 04/29/19 09:49 04/28/19 21:00 Active Medications Acetaminophen (Tylenol -) 650 mg PO Q6H PRN PRN Reason: PAIN Last Admin: 04/28/19 23:24 Dose: 650 mg Carvedilol (Coreg -) 25 mg PO BID [facility] Last Admin: 04/29/19 09:51 Dose: 25 mg Famotidine (Pepcid -) 20 mg PO DAILY [facility] Last Admin: 04/29/19 09:52 Dose: 20 mg Furosemide (Lasix -) 40 mg PO DAILY [facility] Last Admin: 04/29/19 09:51 Dose: 40 mg Guaifenesin (Diabetic Tussin Dm -) 5 ml PO Q6H PRN PRN Reason: COUGH Last Admin: 04/28/19 17:20 Dose: 5 ml Hydralazine HCl (Apresoline -) 20 mg PO TID [facility] Last Admin: 04/29/19 06:23 Dose: 20 mg Insulin Aspart (Novolog Vial Sliding Scale -) 1 vial SQ ACHS [facility]; Protocol Last Admin: 04/29/19 06:26 Dose: Not Given Insulin Detemir (Levemir Vial) 15 units SQ HS [facility] Last Admin: 04/28/19 23:10 Dose: 15 units Ipratropium [place] (Atrovent 0.02% Nebulizer -) 1 amp NEB RTID [facility] Last Admin: 04/29/19 07:30 Dose: 1 amp Letrozole (Femara -) 2.5 mg PO DAILY [facility] Last Admin: 04/29/19 09:51 Dose: 2.5 mg Levothyroxine Sodium (Synthroid -) 112 mcg PO DAILY@0700 [facility] Last Admin: 04/29/19 06:24 Dose: 112 mcg Multivitamins/Minerals/Vitamin C (Tab-A-Vit -) 1 tab PO DAILY [facility] Last Admin: 04/29/19 09:51 Dose: 1 tab Polyethylene Glycol (Miralax (For Daily Use) -) 17 gm PO DAILY PRN PRN Reason: CONSTIPATION Last Admin: 04/26/19 17:05 Dose: 17 gm Pregabalin (Lyrica -) 25 mg PO DAILY [facility] Last Admin: 04/29/19 09:52 Dose: Not Given Pregabalin (Lyrica -) 50 mg PO HS [facility] Last Admin: 04/28/19 23:06 Dose: Not Given Gen: NAD at rest Heart: RRR Lung: decreased breath sounds at the bases Abd: soft, nontender Ext: less edema Laboratory Results - last 24 hr 04/28/19 04/28/19 04/28/19 12:10 13:30 17:24 WBC RBC Hgb Hct MCV MCH MCHC RDW Plt Count MPV Absolute Neuts (auto) Neutrophils % Lymphocytes % Monocytes % Eosinophils % Basophils % Nucleated RBC % Sodium 133 L Potassium 3.7 Chloride 97 L Carbon Dioxide 24 Anion Gap 12 BUN 114.9 H* Creatinine 2.7 H Est GFR (CKD-EPI)AfAm 17.41 Est GFR (CKD-EPI)NonAf 15.02 POC Glucometer 262 148 Random Glucose 293 H Calcium 8.5 Total Bilirubin 0.4 AST 16 ALT 15 Alkaline Phosphatase 101 Total Protein 6.6 Albumin 2.7 L Influenza A (Rapid) Influenza B (Rapid) 04/28/19 04/29/19 04/29/19 23:09 01:34 06:25 WBC RBC Hgb Hct MCV MCH MCHC RDW Plt Count MPV Absolute Neuts (auto) Neutrophils % Lymphocytes % Monocytes % Eosinophils % Basophils % Nucleated RBC % Sodium Potassium Chloride Carbon Dioxide Anion Gap BUN Creatinine Est GFR (CKD-EPI)AfAm Est GFR (CKD-EPI)NonAf POC Glucometer 285 140 Random Glucose Calcium Total Bilirubin AST ALT Alkaline Phosphatase Total Protein Albumin Influenza A (Rapid) Negative Influenza B (Rapid) Negative 04/29/19 04/29/19 08:00 08:00 WBC 17.9 H RBC 2.21 L Hgb 7.3 L Hct 21.8 L MCV 98.4 H MCH 32.8 MCHC 33.3 RDW 17.4 H Plt Count 211 MPV 8.2 Absolute Neuts (auto) 13.2 H Neutrophils % 73.8 Lymphocytes % 8.7 Monocytes % 10.2 Eosinophils % 6.2 H Basophils % 1.1 Nucleated RBC % 0 Sodium 136 Potassium 3.6 Chloride 100 Carbon Dioxide 25 Anion Gap 10 BUN 102.3 H Creatinine 2.6 H Est GFR (CKD-EPI)AfAm 18.22 Est GFR (CKD-EPI)NonAf 15.72 POC Glucometer Random Glucose 139 H Calcium 8.4 L Total Bilirubin 0.3 AST 13 L ALT 14 Alkaline Phosphatase 90 Total Protein 6.2 L Albumin 2.6 L Influenza A (Rapid) Influenza B (Rapid) A/P Acute on Chronic Diastolic Heart Failure Acute on Chronic Renal Failure Hyponatremia HTN DM Hyperlipidemia Hypothyroidism GERD h/o Breast Ca h/o CVA Anemia - lasix per Renal - monitor urine output, creatinine - daily weights - monitor H/H - O2 to keep SpO2 >90% - inhaled bronchodilators - monitor lytes - DVT prophylaxis - DC planning Dr Rosa
--- NOTE | 2019-04-29 10:51 | PN ---
Progress Note, Physician History of Present Illness: stable improved breathing - Current Medication List Current Medications: Active Medications Acetaminophen (Tylenol -) 650 mg PO Q6H PRN PRN Reason: PAIN Last Admin: 04/28/19 23:24 Dose: 650 mg Carvedilol (Coreg -) 25 mg PO BID [facility] Last Admin: 04/29/19 09:51 Dose: 25 mg Famotidine (Pepcid -) 20 mg PO DAILY [facility] Last Admin: 04/29/19 09:52 Dose: 20 mg Furosemide (Lasix -) 40 mg PO DAILY [facility] Last Admin: 04/29/19 09:51 Dose: 40 mg Guaifenesin (Diabetic Tussin Dm -) 5 ml PO Q6H PRN PRN Reason: COUGH Last Admin: 04/28/19 17:20 Dose: 5 ml Hydralazine HCl (Apresoline -) 20 mg PO TID [facility] Last Admin: 04/29/19 06:23 Dose: 20 mg Insulin Aspart (Novolog Vial Sliding Scale -) 1 vial SQ [facility]; Protocol Last Admin: 04/29/19 06:26 Dose: Not Given Insulin Detemir (Levemir Vial) 15 units SQ [facility] Last Admin: 04/28/19 23:10 Dose: 15 units Ipratropium [place] (Atrovent 0.02% Nebulizer -) 1 amp NEB RTID [facility] Last Admin: 04/29/19 07:30 Dose: 1 amp Letrozole (Femara -) 2.5 mg PO DAILY [facility] Last Admin: 04/29/19 09:51 Dose: 2.5 mg Levothyroxine Sodium (Synthroid -) 112 mcg PO DAILY@0700 [facility] Last Admin: 04/29/19 06:24 Dose: 112 mcg Multivitamins/Minerals/Vitamin C (Tab-A-Vit -) 1 tab PO DAILY [facility] Last Admin: 04/29/19 09:51 Dose: 1 tab Polyethylene Glycol (Miralax (For Daily Use) -) 17 gm PO DAILY PRN PRN Reason: CONSTIPATION Last Admin: 04/26/19 17:05 Dose: 17 gm Pregabalin (Lyrica -) 25 mg PO DAILY [facility] Last Admin: 04/29/19 09:52 Dose: Not Given Pregabalin (Lyrica -) 50 mg PO [facility] Last Admin: 01/22/20 23:06 Dose: Not Given - Objective Vital Signs: Vital Signs Temperature 97.9 F 04/29/19 09:49 Pulse Rate 76 04/29/19 09:49 Respiratory Rate 20 04/29/19 09:49 Blood Pressure 137/78 04/29/19 09:49 O2 Sat by Pulse Oximetry (%) 96 04/29/19 09:00 Constitutional: Yes: No Distress, Calm Cardiovascular: Yes: S1, S2 Respiratory: Yes: Regular, CTA Bilaterally Gastrointestinal: Yes: Normal Bowel Sounds, Soft Musculoskeletal: Yes: WNL Extremities: Yes: Other Neurological: Yes: Alert, Oriented Psychiatric: Yes: Alert, Oriented Labs: CBC, BMP 04/29/19 08:00 04/29/19 08:00 INR, PTT INR 1.01 (0.83-1.09) 04/08/19 22:30 Assessment/Plan Problem List - Problems (1) Acute diastolic (congestive) heart failure Code(s): I50.31 - ACUTE DIASTOLIC (CONGESTIVE) HEART FAILURE (2) Acute kidney injury superimposed on CKD Code(s): N17.9 - ACUTE KIDNEY FAILURE, UNSPECIFIED; N18.9 - CHRONIC KIDNEY DISEASE, UNSPECIFIED (3) Anemia Code(s): D64.9 - ANEMIA, UNSPECIFIED Qualifiers: Anemia type: unspecified type Qualified Code(s): D64.9 - Anemia, unspecified (4) Bilateral leg edema Code(s): R60.0 - LOCALIZED EDEMA (5) Hypothyroid Code(s): E03.9 - HYPOTHYROIDISM, UNSPECIFIED Qualifiers: Hypothyroidism type: unspecified Qualified Code(s): E03.9 - Hypothyroidism , unspecified (6) Shortness of breath Code(s): R06.02 - SHORTNESS OF BREATH (7) Breast cancer, left Code(s): C50.912 - MALIGNANT NEOPLASM OF UNSPECIFIED SITE OF LEFT FEMALE BREAST (8) Diabetes Code(s): E11.9 - TYPE 2 DIABETES MELLITUS WITHOUT COMPLICATIONS Qualifiers: Diabetes mellitus type: type 2 (9) GERD (gastroesophageal reflux disease) Code(s): K21.9 - GASTRO-ESOPHAGEAL REFLUX DISEASE WITHOUT ESOPHAGITIS (10) HTN (hypertension) Code(s): I10 - ESSENTIAL (PRIMARY) HYPERTENSION (11) History of CVA with residual deficit Code(s): I69.30 - UNSPECIFIED SEQUELAE OF CEREBRAL INFARCTION (12) Lower extremity cellulitis Code(s): L03.119 - CELLULITIS OF UNSPECIFIED PART OF LIMB Assessment/Plan 89 y.o. 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 Treated for b/l LE cellulitis with some improvement. Noted to have leukocytosis, LE erythema, worsening renal function and anemia b/l LE cellulitis Leukocytosis SOB b/l LE edema Acute diastolic HF Anemia Acute on chronic RF DM HTN Hx of Lt Breast CA Hypothyroidism Hx of CVAs plan continue current mgmt close watch physio rest as per the team
--- NOTE | 2019-04-29 11:17 | DS ---
Physical Exam: SUBJECTIVE: Patient seen and examined. No events overnight. Offers no complaints today. Says she wants to leave. OBJECTIVE: Vital Signs Period Temp Pulse Resp BP Sys/Hernandez Pulse Ox Last 24 Hr 97.6 F-98.6 F 71-80 20-20 136-153/49-78 96-96 PHYSICAL EXAM GENERAL: nad HEAD: Normal with no signs of trauma. EYES: PERRL, conjunctiva clear ENT: moist mucous membranes. NECK: supple. LUNGS: decreased breath sounds HEART: RRR ABDOMEN: Soft, nontender, nondistended, normoactive bowel sounds EXTREMITIES: 2+ pulses, +edema b/l LABS Laboratory Results - last 24 hr 04/28/19 04/28/19 04/28/19 12:10 13:30 17:24 WBC RBC Hgb Hct MCV MCH MCHC RDW Plt Count MPV Absolute Neuts (auto) Neutrophils % Lymphocytes % Monocytes % Eosinophils % Basophils % Nucleated RBC % Sodium 133 L Potassium 3.7 Chloride 97 L Carbon Dioxide 24 Anion Gap 12 BUN 114.9 H* Creatinine 2.7 H Est GFR (CKD-EPI)AfAm 17.41 Est GFR (CKD-EPI)NonAf 15.02 POC Glucometer 262 148 Random Glucose 293 H Calcium 8.5 Total Bilirubin 0.4 AST 16 ALT 15 Alkaline Phosphatase 101 Total Protein 6.6 Albumin 2.7 L Influenza A (Rapid) Influenza B (Rapid) 04/28/19 04/29/19 04/29/19 23:09 01:34 06:25 WBC RBC Hgb Hct MCV MCH MCHC RDW Plt Count MPV Absolute Neuts (auto) Neutrophils % Lymphocytes % Monocytes % Eosinophils % Basophils % Nucleated RBC % Sodium Potassium Chloride Carbon Dioxide Anion Gap BUN Creatinine Est GFR (CKD-EPI)AfAm Est GFR (CKD-EPI)NonAf POC Glucometer 285 140 Random Glucose Calcium Total Bilirubin AST ALT Alkaline Phosphatase Total Protein Albumin Influenza A (Rapid) Negative Influenza B (Rapid) Negative 04/29/19 04/29/19 08:00 08:00 WBC 17.9 H RBC 2.21 L Hgb 7.3 L Hct 21.8 L MCV 98.4 H MCH 32.8 MCHC 33.3 RDW 17.4 H Plt Count 211 MPV 8.2 Absolute Neuts (auto) 13.2 H Neutrophils % 73.8 Lymphocytes % 8.7 Monocytes % 10.2 Eosinophils % 6.2 H Basophils % 1.1 Nucleated RBC % 0 Sodium 136 Potassium 3.6 Chloride 100 Carbon Dioxide 25 Anion Gap 10 BUN 102.3 H Creatinine 2.6 H Est GFR (CKD-EPI)AfAm 18.22 Est GFR (CKD-EPI)NonAf 15.72 POC Glucometer Random Glucose 139 H Calcium 8.4 L Total Bilirubin 0.3 AST 13 L ALT 14 Alkaline Phosphatase 90 Total Protein 6.2 L Albumin 2.6 L Influenza A (Rapid) Influenza B (Rapid) HOSPITAL COURSE: Date of Admission:04/08/19 This is an 89 year old woman with a history of HTN, hyperlipidemia, type 2 DM, CVAs, hypothyroidism, GERD, breast cancer who presented to the ED with SOB. #Acute on chronic diastolic heart failure #Volume overload likely renal and cardio etiology #MAURICE on CKD #Stage 4 CKD #Chronic Leukocytosis #HTN #DM2 #LLE pain likely sciatica #HLD #Cellulitis #Hypothyroidism #GERD #Hx CVA #Hx Breast CA #Macrocytic Anemia Plan: -clinically improved -cr slowly trending now. currently 2.6. BUN 102 on discharge -Resume lasix 40mg daily on discharge -metolazone held for worsening kidney function -may benefit from short term HD but patient is REFUSING at this time. -She will need to follow up with nephrology in 1 week. -She will need a bmp every 3 days until she sees nephrology. -keep losartan on hold for now -echo with EF 55-60 -NA and fluid restriction -completed abx for cellulitis -changed lyrica to 50mg in morning and 25 at night for better pain control. working well -Hgb stable. currently 7.8. Aspirin held. Patient will need to follow up with Primary care doctor and heme/onc (Dr. Estrada). -SSI, Levemir 15U HS will discharge to SNF Date of Discharge: 04/29/19 Minutes to complete discharge: 35 Discharge Summary Problems reviewed: Yes Reason For Visit: SHORTNESS OF BREATH REST,ACUTE KIDNEY INJURY Current Active Problems Acute diastolic (congestive) heart failure (Acute) Acute kidney injury superimposed on CKD (Acute) Anemia (Acute) Bilateral leg edema (Acute) Hypothyroid (Acute) Lethargy (Acute) Pulmonary vascular congestion (Acute) Shortness of breath (Acute) Condition: Stable - Instructions Diet, Activity, Other Instructions: You were admitted to the hospital because you had difficulty breathing. You will need to follow up with your primary care doctor in 1 week. Follow up with the kidney doctor in 1 week (Dr. Sequeira). Follow up with your hematology/oncology doctor in 1 week. 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 You will need to follow up with nephrology within 7 days after discharge. We have made some changes to your medications. Please take as prescribed. We have held Losartan because of the worsening renal functions. Please discuss with nephrology on when to resume it. We also held your aspirin because of your anemia. Follow up with hematology/ oncology on when to resume it. If you develop shortness of breath, chest pain, nausea, vomiting, fevers, chills , then go to your nearest emergency department. Referrals: Shaq Salinas MD [Primary Care Provider] - 1 Week Kevin Estrada MD [Staff Physician] - 1 Week Neva Sequeira MD [Staff Physician] - 1 Week Disposition: LONG-TERM FACILITY - Home Medications Comprehensive Discharge Medication List: Ambulatory Orders Multivitamins [Multivit ([facility] Formulary)] 1 tab PO DAILY 06/10/14 Calcium Carbonate/Vitamin D3 [Calcium 500-Vit D3 400 Tablet] 1 each PO DAILY Carvedilol [Coreg -] 25 mg PO BID 06/23/18 Cholecalciferol (Vitamin D3) [Vitamin D -] 400 unit PO DAILY 06/23/18 Famotidine [Pepcid] 40 mg PO DAILY 06/24/18 Letrozole 2.5 mg PO DAILY 06/24/18 Tramadol HCl 50 mg PO TID PRN 06/24/18 Insulin (Levemir) [Levemir Vial] 15 units SQ [facility] units 04/27/19 Polyethylene Glycol 3350 [Miralax 119 gm Btl -] 17 gm PO DAILY PRN bottle 04/27 Pregabalin [Lyrica -] 25 mg PO DAILY #30 capsule MDD 75 04/27/19 Pregabalin [Lyrica -] 50 mg PO HS capsule MDD 75 04/27/19 hydrALAZINE HCL [Apresoline -] 20 mg PO TID tablet 04/27/19 Furosemide [Lasix -] 40 mg PO DAILY #30 tablet 04/29/19 This patient is new to me today: Yes Date on this admission: 04/29/19 Emergency Visit: Yes ED Registration Date: 04/08/19 Care time: The patient presented to the Emergency Department on the above date and was hospitalized for further evaluation of their emergent condition. Critical Care patient: No - Discharge Referral Referred to [facility] Med P.C.: No ATTENDING PHYSICIAN STATEMENT I saw and evaluated the patient. I reviewed the resident's note and discussed the case with the resident. I agree with the resident's findings and plan as documented. SUBJECTIVE: OBJECTIVE: ASSESSMENT AND PLAN:
--- NOTE | 2019-04-29 11:31 | PN ---
Physical Exam: SUBJECTIVE: Patient seen and examined no acute events over night can be dc today OBJECTIVE: Vital Signs Period Temp Pulse Resp BP Sys/Hernandez Pulse Ox Last 24 Hr 97.6 F-98.6 F 71-80 20-20 136-153/49-78 96-96 GENERAL: Awake, alert, and fully oriented, in no acute distress.generalized fatigue HEAD: Normal with no signs of trauma. EYES: Pupils equal, round and reactive to light, extraocular movements intact, sclera anicteric, EARS, NOSE, THROAT:dry mucous membranes.no oral thrush or mucositis noted NECK: supple no lymphadenopathy LUNGS: bibasilar crackles HEART: Regular rate and rhythm, normal S1 and S2 without murmur, rub or gallop. ABDOMEN: Soft, diffuse tenderness , distended, normoactive bowel sounds, LOWER EXTREMITIES: 2+ pulses, warm, well-perfused. trace peripheral edema. B/L erythema with cellulitis NEUROLOGICAL: no focal deficit . Normal speech. PSYCHIATRIC: Cooperative. SKIN: Warm, dry, normal turgor, no breast mass palpated . surgery scar beneath left breast no lymph nodes enlargement Laboratory Results - last 24 hr 04/28/19 04/28/19 04/28/19 12:10 13:30 17:24 WBC RBC Hgb Hct MCV MCH MCHC RDW Plt Count MPV Absolute Neuts (auto) Neutrophils % Lymphocytes % Monocytes % Eosinophils % Basophils % Nucleated RBC % Sodium 133 L Potassium 3.7 Chloride 97 L Carbon Dioxide 24 Anion Gap 12 BUN 114.9 H* Creatinine 2.7 H Est GFR (CKD-EPI)AfAm 17.41 Est GFR (CKD-EPI)NonAf 15.02 POC Glucometer 262 148 Random Glucose 293 H Calcium 8.5 Total Bilirubin 0.4 AST 16 ALT 15 Alkaline Phosphatase 101 Total Protein 6.6 Albumin 2.7 L Influenza A (Rapid) Influenza B (Rapid) 04/28/19 04/29/19 04/29/19 23:09 01:34 06:25 WBC RBC Hgb Hct MCV MCH MCHC RDW Plt Count MPV Absolute Neuts (auto) Neutrophils % Lymphocytes % Monocytes % Eosinophils % Basophils % Nucleated RBC % Sodium Potassium Chloride Carbon Dioxide Anion Gap BUN Creatinine Est GFR (CKD-EPI)AfAm Est GFR (CKD-EPI)NonAf POC Glucometer 285 140 Random Glucose Calcium Total Bilirubin AST ALT Alkaline Phosphatase Total Protein Albumin Influenza A (Rapid) Negative Influenza B (Rapid) Negative 04/29/19 04/29/19 08:00 08:00 WBC 17.9 H RBC 2.21 L Hgb 7.3 L Hct 21.8 L MCV 98.4 H MCH 32.8 MCHC 33.3 RDW 17.4 H Plt Count 211 MPV 8.2 Absolute Neuts (auto) 13.2 H Neutrophils % 73.8 Lymphocytes % 8.7 Monocytes % 10.2 Eosinophils % 6.2 H Basophils % 1.1 Nucleated RBC % 0 Sodium 136 Potassium 3.6 Chloride 100 Carbon Dioxide 25 Anion Gap 10 BUN 102.3 H Creatinine 2.6 H Est GFR (CKD-EPI)AfAm 18.22 Est GFR (CKD-EPI)NonAf 15.72 POC Glucometer Random Glucose 139 H Calcium 8.4 L Total Bilirubin 0.3 AST 13 L ALT 14 Alkaline Phosphatase 90 Total Protein 6.2 L Albumin 2.6 L Influenza A (Rapid) Influenza B (Rapid) Active Medications Generic Name Dose Route Start Last Admin Trade Name Freq PRN Reason Stop Dose Admin Acetaminophen 650 mg 04/11/19 13:59 04/28/19 23:24 Tylenol - PO 650 mg Q6H PRN Administration PAIN Carvedilol 25 mg 04/11/19 22:00 04/29/19 09:51 Coreg - PO 25 mg BID [facility] Administration Famotidine 20 mg 04/12/19 10:00 04/29/19 09:52 Pepcid - PO 20 mg DAILY [facility] Administration Furosemide 40 mg 04/29/19 10:00 04/29/19 09:51 Lasix - PO 40 mg DAILY [facility] Administration Guaifenesin 5 ml 04/24/19 10:30 04/28/19 17:20 Diabetic Tussin Dm - PO 5 ml Q6H PRN Administration COUGH Hydralazine HCl 20 mg 04/11/19 14:00 04/29/19 06:23 Apresoline - PO 20 mg TID [facility] Administration Insulin Aspart 1 vial 04/11/19 16:30 04/29/19 06:26 Novolog Vial Sliding Scale - SQ Not Given [facility] Protocol Insulin Detemir 15 units 04/25/19 22:00 04/28/19 23:10 Levemir Vial SQ 15 units HS [facility] Administration Ipratropium [place] 1 amp 04/25/19 20:00 04/29/19 07:30 Atrovent 0.02% Nebulizer - NEB 1 amp RTID [facility] Administration Letrozole 2.5 mg 04/12/19 10:00 04/29/19 09:51 Femara - PO 2.5 mg DAILY [facility] Administration Levothyroxine Sodium 112 mcg 04/12/19 07:00 04/29/19 06:24 Synthroid - PO 112 mcg DAILY@0700 [facility] Administration Multivitamins/Minerals/Vitamin C 1 tab 04/12/19 10:00 04/29/19 09:51 Tab-A-Vit - PO 1 tab DAILY [facility] Administration Polyethylene Glycol 17 gm 04/25/19 11:41 04/26/19 17:05 Miralax (For Daily Use) - PO 17 gm DAILY PRN Administration CONSTIPATION Pregabalin 25 mg 04/24/19 10:00 04/29/19 09:52 Lyrica - PO Not Given DAILY [facility] Pregabalin 50 mg 04/23/19 22:00 04/28/19 23:06 Lyrica - PO Not Given HS [facility] CBC, BMP 04/29/19 08:00 04/29/19 08:00 ASSESSMENT/PLAN: 89 yo F PMH of HTN, HLD, Left breast cancer, Hypothyroidism, GERD, NIDDM and Multiple CVAs, recently admitted at [place] for bilateral LE cellulitis ( discharged 04/06/19) presenting with shortness of breath . 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 iron deficiency anemia , need to find out reason for macrocytosis # Leuckocytosisn R.O MDS * monitor H/H daily * occult blood negative * maintain hgb > 7 * b12 , FA , normal * iron studies , ferritin with iron deficiency anemia start venofer * will send fish flow and cytometry to R/O MDS # History of breast cancer S.p radiation , stable follow up out pt # Leuckocytosis off abx per ID , had for cellulites, R.O MDS # HTN # HLD #DCHF # Hyponatremia # CKD Stage IV Visit type - Emergency Visit Emergency Visit: Yes ED Registration Date: 04/08/19 Care time: The patient presented to the Emergency Department on the above date and was hospitalized for further evaluation of their emergent condition. - New Patient This patient is new to me today: No - Critical Care Critical Care patient: No - Discharge Referral Referred to [facility] Med P.C.: No ATTENDING PHYSICIAN STATEMENT I saw and evaluated the patient. I reviewed the resident's note and discussed the case with the resident. I agree with the resident's findings and plan as documented. SUBJECTIVE: OBJECTIVE: ASSESSMENT AND PLAN:
[2019-04-29 12:58] LABS: ANISOCYTOSIS 2+; MACROCYTOSIS 0; PLATELET ESTIMATE NORMAL
--- NOTE | 2019-04-29 13:26 | PN ---
Progress Note, Physician History of Present Illness: Pt seen and examined at bedside. She is awake and alert. She feels that her breathing is improved. - Objective Vital Signs: Vital Signs Temperature 97.9 F 04/29/19 09:49 Pulse Rate 76 04/29/19 09:49 Respiratory Rate 20 04/29/19 09:49 Blood Pressure 137/78 04/29/19 09:49 O2 Sat by Pulse Oximetry (%) 96 04/29/19 09:00 Constitutional: Yes: Calm Eyes: Yes: Conjunctiva Clear HENT: Yes: Atraumatic Neck: Yes: Supple Cardiovascular: Yes: S1, S2 Respiratory: Yes: CTA Bilaterally Gastrointestinal: Yes: Normal Bowel Sounds, Soft Genitourinary: Yes: WNL Musculoskeletal: Yes: WNL Edema: Yes Edema: LLE: Trace, RLE: Trace Neurological: Yes: Oriented Psychiatric: Yes: Oriented Labs: CBC, BMP 04/29/19 08:00 04/29/19 08:00 INR, PTT INR 1.01 (0.83-1.09) 04/08/19 22:30 Assessment/Plan Impression 1. proteinuria 2. hypothyroid 3. HTN 4. DM 5. fluid overload 6. breast cancer 7. MAURICE 8. CKD Plan - cont po lasix - renal function is improving - will need outpt follow up - monitor lytes and volume status in rehab - keep losartan on hold for now Dr Sequeira
== END 2019-04-29 12:18 | DRG 291 ==
LOC: JER 21:14 → JERBED 23:56 → J6S 04-09 03:33 → J4S 04-09 09:32 → J5S 04-11 13:37
PROVIDERS: ADMIT Internal Medicine; ATTEND Internal Medicine
PROC: 30233N1 Transfusion of Nonautologous Red Blood Cells into Peripheral Vein, Percutaneous Approach (ICD-10-PCS; principal; 2019-04-08)
DX: I13.0 Hypertensive heart and chronic kidney disease with heart failure and stage 1 through stage 4 chronic kidney disease, or unspecified chronic kidney disease (principal); I50.33 Acute on chronic diastolic (congestive) heart failure; N17.9 Acute kidney failure, unspecified; I69.354 Hemiplegia and hemiparesis following cerebral infarction affecting left non-dominant side; L03.115 Cellulitis of right lower limb; L03.116 Cellulitis of left lower limb; G61.0 Guillain-Barre syndrome; N18.4 Chronic kidney disease, stage 4 (severe); E87.1 Hypo-osmolality and hyponatremia; E78.5 Hyperlipidemia, unspecified; Z85.3 Personal history of malignant neoplasm of breast; E03.9 Hypothyroidism, unspecified; E87.70 Fluid overload, unspecified; K21.9 Gastro-esophageal reflux disease without esophagitis; D50.9 Iron deficiency anemia, unspecified; D72.829 Elevated white blood cell count, unspecified; R07.9 Chest pain, unspecified; G62.9 Polyneuropathy, unspecified; K59.00 Constipation, unspecified; E87.6 Hypokalemia; E66.9 Obesity, unspecified; Z68.30 Body mass index [BMI] 30.0-30.9, adult; E11.65 Type 2 diabetes mellitus with hyperglycemia
CPT/HCPCS: 36415; 36430; 36511; 71045-TC-FY; 71250-TC; 80048; 80053; 80061; 81003; 82272; 82550; 82570; 82607; 82728; 82746; 82803; 82962; 83010; 83540; 83550; 83605; 83615; 83721; 83735; 83880; 84100; 84156; 84443; 84484; 85025; 85027; 85044; 85610; 85730; 86850; 86900; 86901; 86922; 87040; 87086; 87205; 87804; 88300-TC; 93005; 93010; 93306-TC; 93970-TC; 94640; 94660; 97116-GP; 97162-GP; 99284-25; J0885; J1644; J1756; P9016; P9038

== ENCOUNTER 2019-09-24 15:56 | Inpatient (IN) | payer OTHER, MEDICARE ==
--- NOTE | 2019-09-24 16:13 | PDOC ---
History of Present Illness - History of Present Illness Initial Comments: 09/24/19 16:42 89y/o F hx of Afib (on eloquis) , HTN, CVA, CHF, chronic back pain, T2DM, hypothyroisdism presents to the ED from [facility]. sent in for worsening edema, maurice and uncontrolled back pain. Per senior care paper work, pt d/c as facility "cannot meet the needs of the resident.she endorses sob on exertion, and uses oxygen prn at baseline (2-3L). She denies any worsening sob. She denies any chest pain, fevers, cough, abdominal tenderness.Per daughter Marybeth, she had multiple episodes of vomiting yesterday night. She denies any nausea today. PMHx: as noted above ROS: as noted SHx: Denies Etoh, IVDA, tobacco use Allergies: NKDA ROS: GENERAL/CONSTITUTIONAL: No fever or chills. No weakness. HEAD, EYES, EARS, NOSE AND THROAT: No change in vision. No ear pain or discharge. No sore throat. CARDIOVASCULAR: No chest pain or shortness of breath RESPIRATORY: No cough, wheezing, or hemoptysis. GASTROINTESTINAL: No nausea, vomiting, diarrhea or constipation. GENITOURINARY: No dysuria, frequency, or change in urination. MUSCULOSKELETAL: No joint or muscle swelling or pain. No neck or back pain. SKIN: No rash NEUROLOGIC: No headache, vertigo, loss of consciousness, or change in strength/sensation. ENDOCRINE: No increased thirst. No abnormal weight change HEMATOLOGIC/LYMPHATIC: No anemia, easy bleeding, or history of blood clots. ALLERGIC/IMMUNOLOGIC: No hives or skin allergy. PE: GENERAL: Awake, alert, and fully oriented, in no acute distress HEAD: No signs of trauma, normocephalic, atraumatic EYES: PERRLA, EOMI, sclera anicteric, conjunctiva clear ENT: Auricles normal inspection, hearing grossly normal, nares patent, oropharynx clear without exudates. Moist mucosa NECK: Normal ROM, supple, no lymphadenopathy, JVD, or masses LUNGS: midlly out of breath after few short sentences. bibasilar crackles. HEART: Regular rate and rhythm, normal S1 and S2, no murmurs, rubs or gallops, peripheral pulses normal and equal bilaterally. ABDOMEN: Soft, nontender, normoactive bowel sounds. No guarding, no rebound. No masses EXTREMITIES : 2+ pitting edema to the knees bilaterally. 2s capillary refill, unable to appreciate pulses due to edema. NEUROLOGICAL: Cranial nerves II through XII grossly intact. Normal speech, no focal sensorimotor deficits SKIN: Warm, Dry, normal turgor, no rashes or lesions noted 09/24/19 17:21 <Geno Calixto - Last Filed: 11/01/19 19:44> <Hakeem Quiroz - Last Filed: 11/22/19 16:44> - General Stated Complaint: MAURICE/FLUID OVERLOAD/PAIN Time Seen by Provider: 09/24/19 16:12 Past History - Medical History Anemia: Yes (MILD-HIGH WBC X 20 YRS) Asthma: Yes (YRS AGO-STABLE NO MEDS) Cancer: Yes (LEFT BREAST-DX 07/2013) Cardiac Disorders: No 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) COPD: No CHF: No Dementia: No Diabetes: Yes (DX 1962) GI Disorders: Yes (ACID REFLUX) Disorders: Yes (FREQUENT UTI'S-LAST 2012-HOSPITALIZED) HTN: Yes (HX OF 40 YRS) Hypercholesterolemia: No Liver Disease: No Seizures: No Thyroid Disease: Yes (HYPOTHYROIDISM-DX 1949') - Surgical History Abdominal Surgery: Yes (UNBILICAL HERNIA REPAIR-2008) Appendectomy: No Cardiac Surgery: No Cholecystectomy: No Lung Surgery: No Neurologic Surgery: No Orthopedic Surgery: No - Psycho-Social/Smoking History Smoking Status: No Smoking History: Never smoked Have you smoked in the past 12 months: No Number of Cigarettes Smoked Daily: 0 <Geno Calixto - Last Filed: 11/01/19 19:44> <Hakeem Quiroz - Last Filed: 11/22/19 16:44> - Medical History Allergies/Adverse Reactions: Allergies Allergy/AdvReac Type Severity Reaction Status Date / Time NSAIDS (Non-Steroidal Allergy Severe Difficulty Verified 10/30/19 05:27 Anti-Inflamma Breathing ibuprofen Allergy Intermediate Rash Verified 10/30/19 05:27 meloxicam [From Mobic] Allergy Intermediate Rash Verified 10/30/19 05:27 rosiglitazone maleate Allergy Verified 10/30/19 05:27 [From Avandia] albuterol AdvReac Intermediate Elevated Verified 10/30/19 05:27 Blood Pressure epinephrine AdvReac Intermediate Elevated Verified 10/30/19 05:27 Blood Pressure oxycodone HCl [From Percodan] AdvReac Intermediate Elevated Verified 10/30/19 07:29 Blood Pressure oxycodone terephthalate AdvReac Intermediate Elevated Verified 10/30/19 05:27 [From Percodan] Blood Pressure flu shot AdvReac Severe GILLAIN 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 Home Medications: Ambulatory Orders Carvedilol [Coreg -] 25 mg PO BID 06/23/18 Polyethylene Glycol 3350 [Miralax 119 gm Btl -] 17 gm PO DAILY PRN bottle 04/27/19 Apixaban [Eliquis] 2.5 mg PO BID 08/12/19 Isosorbide Mononitrate [Imdur -] 60 mg PO DAILY 08/12/19 Insulin Lispro [Humalog] 100 unit SQ PRN 09/24/19 Pantoprazole Sodium [Protonix] 40 mg PO DAILY 09/24/19 Multivitamin [One-Daily Multi-Vitamin] 1 each PO DAILY 09/25/19 Acetaminophen [Tylenol .Regular Strength -] 650 mg PO Q6H PRN tablet 10/27/19 Lactobacillus Acidophilus [Bacid -] 1 tab PO DAILY tab 10/27/19 Lidocaine Patch Removal [Lidoderm Patch Removal] 1 each MC DAILY@2200 each 10/27/19 Nystatin Cream [Mycostatin Cream -] 1 applic TP BID applic 10/27/19 Polyvinyl Alcohol [Artificial Tears] 1 drop OU BID PRN drops 10/27/19 Torsemide 100 mg PO BID 30 Days #60 tablet 10/27/19 Triamcinolone 0.1% Lotion [Aristocort 0.1% Lotion -] 1 applic TP BID lotion 10/27/19 Zinc Oxide 1 applic TP DAILY tube 10/27/19 hydrOXYzine PAMOATE [Vistaril -] 25 mg PO Q8H PRN capsule 10/27/19 Insulin Glargine,Hum.rec.anlog [Lantus] 20 unit SQ DAILY 30 Days vial 10/28/19 Lidocaine 5% Patch [Lidoderm -] 1 patch TP DAILY #30 patch 10/28/19 *Physical Exam - Vital Signs Last Vital Signs Temp Pulse Resp BP Pulse Ox 97.8 F 104 H 18 136/88 100 10/28/19 13:53 10/28/19 13:53 10/28/19 13:53 10/28/19 13:53 10/28/19 13:53 <InesHakeem sawant - Last Filed: 11/22/19 16:44> ED Treatment Course - LABORATORY CBC & Chemistry Diagram: 10/27/19 07:50 10/28/19 07:28 <Geno Calixto - Last Filed: 11/01/19 19:44> - LABORATORY CBC & Chemistry Diagram: 10/27/19 07:50 10/28/19 07:28 - ADDITIONAL ORDERS Additional order review: 09/24/19 16:49 RBC 2.47 L MCV 92.3 MCHC 32.3 RDW 19.3 H MPV 8.4 Neutrophils % 73.8 Lymphocytes % 8.1 Monocytes % 12.3 H Eosinophils % 5.1 H Basophils % 0.7 - Medications Given in the ED: ED Medications Discontinued Medications Generic Name Dose Route Start Last Admin Trade Name Freq PRN Reason Stop Dose Admin Acetaminophen 1,000 mg 09/24/19 17:23 09/24/19 19:10 Ofirmev Injection - IVPB 09/24/19 17:24 1,000 mg ONCE ONE Administration Acetaminophen 650 mg 10/11/19 12:26 10/27/19 23:00 Tylenol - PO 650 mg Q6H PRN Administration PAIN LEVEL 6-10 Albumin Human 25 gm 10/21/19 15:30 10/21/19 21:36 Albumin Human 25% IVPB 10/21/19 21:31 25 gm Q6H AMRIT Administration Albumin Human 25 gm 10/22/19 15:00 10/22/19 22:16 Albumin Human 25% IVPB 10/22/19 21:01 25 gm Q6H AMRIT Administration Albumin Human 25 gm 10/23/19 13:15 10/23/19 13:49 Albumin Human 25% - IVPB 10/23/19 13:16 25 gm Q30M ONE Administration Albumin Human 25 gm 10/25/19 16:30 10/26/19 05:00 Albumin Human 25% IVPB 10/26/19 04:31 25 gm Q6H AMRIT Administration Albumin Human 25 gm 10/26/19 15:00 10/26/19 22:39 Albumin Human 25% - IVPB 10/26/19 21:01 25 gm Q6H AMRIT Administration Albumin Human 25 gm 10/27/19 13:00 10/27/19 12:51 Albumin Human 25% - IVPB 10/27/19 13:01 25 gm ONCE ONE Administration Apixaban 2.5 mg 09/24/19 23:00 09/29/19 09:51 Eliquis - PO 2.5 mg BID AMRIT Administration Apixaban 2.5 mg 09/30/19 22:00 09/30/19 22:53 Eliquis - PO 09/30/19 22:01 2.5 mg ONCE ONE Administration Apixaban 2.5 mg 10/01/19 22:00 10/04/19 10:34 Eliquis - PO Not Given BID AMRIT Apixaban 2.5 mg 10/04/19 22:00 10/28/19 10:18 Eliquis - PO 2.5 mg BID AMRIT Administration Artificial Tears 1 drop 10/27/19 13:22 10/27/19 22:00 Artificial Tears OU 1 drop BID PRN Administration DRY EYES Bacitracin 1 applic 10/21/19 17:30 10/28/19 10:19 Bacitracin - TP 1 applic DAILY AMRIT Administration Bisacodyl 10 mg 10/14/19 13:59 10/15/19 13:05 Dulcolax Suppository - ND 10 mg PRN PRN Administration CONSTIPATION Bisacodyl 10 mg 10/18/19 18:50 10/18/19 20:39 Dulcolax Suppository - ND 10/18/19 18:51 Not Given ONCE ONE Carvedilol 25 mg 09/26/19 11:28 09/30/19 22:53 Coreg - PO 25 mg BID AMRIT Administration Carvedilol 25 mg 10/01/19 10:00 10/14/19 09:21 Coreg - PO 25 mg BID AMRIT Administration Carvedilol 37.5 mg 10/14/19 22:00 10/22/19 22:16 Coreg - PO 37.5 mg BID AMRIT Administration Carvedilol 25 mg 10/23/19 09:26 10/28/19 10:18 Coreg - PO 25 mg BID AMRIT Administration Diphenhydramine HCl 25 mg 10/17/19 13:43 10/17/19 14:39 Benadryl - PO 10/17/19 13:44 25 mg ONCE ONE Administration Diphenhydramine HCl 25 mg 10/19/19 06:35 10/19/19 06:52 Benadryl - PO 10/19/19 06:36 25 mg ONCE ONE Administration Diphenhydramine HCl 12.5 mg 10/21/19 11:01 10/26/19 05:42 Benadryl Injection - IVPUSH 12.5 mg Q4H PRN Administration FOR ITCHING Docusate Sodium 300 mg 09/25/19 22:00 09/30/19 22:53 Colace - PO 300 mg HS AMRIT Administration Docusate Sodium 300 mg 10/01/19 22:00 10/27/19 21:05 Colace - PO Not Given HS AMRIT Famotidine 10 mg 09/28/19 22:00 09/30/19 22:53 Acid Windows [employer]ist PO 10 mg BID AMRIT Administration Famotidine 10 mg 09/28/19 15:15 09/28/19 15:50 Pepcid - PO 09/28/19 15:16 10 mg ONCE ONE Administration Furosemide 40 mg 09/24/19 19:31 09/24/19 19:39 Lasix Injection - IVPUSH 09/24/19 19:32 40 mg ONCE ONE Administration Furosemide 80 mg 09/25/19 23:00 09/25/19 23:51 Lasix Injection - IVPUSH 09/25/19 23:01 80 mg ONCE ONE Administration Furosemide 40 mg 09/25/19 16:04 09/25/19 17:26 Lasix Injection - IVPUSH 09/25/19 16:05 40 mg ONCE ONE Administration Furosemide 40 mg 09/26/19 14:00 09/30/19 14:24 Lasix Injection - IVPUSH 40 mg BID@0600,1400 AMRIT Administration Furosemide 40 mg 10/01/19 06:00 10/02/19 14:08 Lasix Injection - IVPUSH 40 mg BID@0600,1400 AMRIT Administration Furosemide 80 mg 10/02/19 16:26 10/02/19 19:02 Lasix Injection - IVPUSH 10/02/19 16:27 80 mg ONCE ONE Administration Furosemide 80 mg 10/03/19 06:00 10/06/19 05:54 Lasix Injection - IVPUSH 80 mg BIDLASIX AMRIT Administration Furosemide 60 mg 10/06/19 10:17 10/13/19 14:11 Lasix Injection - IVPUSH 60 mg BIDLASIX AMRIT Administration Furosemide 80 mg 10/14/19 06:00 10/15/19 06:35 Lasix - PO 80 mg BID@0600,1400 AMRIT Administration Furosemide 60 mg 10/15/19 14:00 10/15/19 14:18 Lasix Injection - IVPUSH 10/15/19 14:01 60 mg ONCE ONE Administration Furosemide 80 mg 10/16/19 06:00 10/17/19 14:34 Lasix - PO 80 mg BID@0600,1400 AMRIT Administration Furosemide 60 mg 10/16/19 13:00 10/16/19 14:46 Lasix Injection - IVPUSH 10/16/19 13:01 60 mg ONCE ONE Administration Furosemide 40 mg 10/17/19 02:05 10/17/19 02:34 Lasix Injection - IVPUSH 10/17/19 02:06 40 mg ONCE ONE Administration Furosemide 60 mg 10/18/19 06:00 10/19/19 05:50 Lasix Injection - IVPUSH 60 mg BID@0600,1400 AMRIT Administration Furosemide 80 mg 10/19/19 08:20 10/20/19 05:50 Lasix Injection - IVPUSH 80 mg BID@0600,1400 AMRIT Administration Furosemide 80 mg 10/19/19 17:30 10/19/19 17:41 Lasix Injection - IVPUSH 10/19/19 17:31 80 mg ONCE ONE Administration Furosemide 80 mg 10/20/19 14:00 10/28/19 05:26 Lasix Injection - IVPUSH 80 mg TID AMRIT Administration Glycerin 1 each 09/26/19 14:00 09/26/19 16:27 Glycerin Suppository Adult - RC 09/26/19 14:01 1 each ONCE ONE Administration Glycerin 1 each 09/26/19 18:02 09/26/19 21:35 Glycerin Suppository Adult - ND 09/26/19 18:03 Not Given ONCE ONE Heparin Sodium (Porcine) 5,000 unit 09/29/19 22:00 09/30/19 14:24 Heparin - SQ 09/30/19 23:59 5,000 unit TID AMRIT Administration Heparin Sodium (Porcine) 5,000 unit 10/01/19 10:00 10/01/19 15:07 Heparin - SQ 10/03/19 23:00 5,000 unit TID AMRIT Administration Hydralazine HCl 10 mg 09/29/19 14:00 10/20/19 13:02 Apresoline - PO 10 mg TID AMRIT Administration Hydromorphone HCl 0.5 mg 10/05/19 11:18 10/05/19 17:05 Dilaudid Vial - IVPB 0.5 mg Q6H PRN Administration PAIN LEVEL 6-10 Hydroxyzine Pamoate 25 mg 10/15/19 21:24 10/28/19 12:33 Vistaril - PO 25 mg Q8H PRN Administration FOR ITCHING Iron Sucrose 100 mg/ Sodium 100 mls @ 200 mls/hr 09/24/19 23:00 09/25/19 00:24 Chloride IVPB 09/24/19 23:29 200 mls/hr ONCE ONE Administration Ceftriaxone Sodium 1 gm/ 50 mls @ 100 mls/hr 09/24/19 23:00 09/25/19 00:23 Dextrose IVPB 09/24/19 23:29 100 mls/hr ONCE ONE Administration Ceftriaxone Sodium 1 gm/ 50 mls @ 100 mls/hr 09/25/19 10:00 09/26/19 09:28 Dextrose IVPB 100 mls/hr DAILY AMRIT Administration Linezolid 600 mg in 300 mls @ 300 mls/hr 09/24/19 23:30 09/25/19 00:24 Zyvox 600 Mg Premix Bag (Restricted To Id) - IVPB 09/25/19 00:29 300 mls/hr ONCE ONE Administration Protocol Piperacillin Sod/Tazobactam 50 mls @ 100 mls/hr 09/27/19 10:00 09/27/19 10:38 Sod 2.25 gm/ Dextrose IVPB 09/28/19 02:29 100 mls/hr Q8H-IV AMRIT Administration Protocol Ertapenem 0.5 gm/ Sodium 50 mls @ 100 mls/hr 09/27/19 14:00 09/30/19 09:51 Chloride IVPB 100 mls/hr DAILY AMRIT Administration Ertapenem 0.5 gm/ Sodium 50 mls @ 100 mls/hr 10/01/19 10:00 10/06/19 10:43 Chloride IVPB Not Given DAILY AMRIT Insulin Aspart 1 vial 09/25/19 07:00 09/30/19 22:54 Novolog Vial Sliding Scale - SQ 2 units ACHS AMRIT Administration Protocol Insulin Aspart 1 vial 10/01/19 07:00 10/28/19 12:19 Novolog Vial Sliding Scale - SQ 4 units ACHS AMRIT Administration Protocol Isosorbide Mononitrate 60 mg 09/29/19 13:38 09/29/19 14:20 Imdur - PO 09/29/19 13:39 60 mg ONCE ONE Administration Lactobacillus Acidophilus 1 tab 09/29/19 14:30 10/28/19 10:18 Bacid - PO 1 tab DAILY AMRIT Administration Letrozole 2.5 mg 09/25/19 10:00 09/30/19 09:53 Femara - PO 2.5 mg DAILY AMRIT Administration Letrozole 2.5 mg 10/01/19 10:00 10/28/19 10:18 Femara - PO 2.5 mg DAILY AMRIT Administration Levothyroxine Sodium 100 mcg 09/25/19 07:00 09/30/19 06:32 Synthroid - PO 100 mcg ACBK AMRIT Administration Levothyroxine Sodium 100 mcg 10/01/19 07:00 10/28/19 06:10 Synthroid - PO 100 mcg ACBK AMRIT Administration Lidocaine 1 patch 09/24/19 16:53 09/24/19 17:05 Lidoderm Patch - TP 09/24/19 16:54 1 patch ONCE ONE Administration Lidocaine 1 patch 10/13/19 14:00 10/19/19 09:37 Lidoderm Patch - TP 1 patch DAILY AMRIT Administration Lidocaine 3 patch 10/20/19 10:00 10/28/19 10:19 Lidoderm Patch - TP 3 patch DAILY AMRIT Administration Linezolid 600 mg 10/06/19 11:00 10/08/19 22:07 Zyvox (Restricted To Id) - PO 10/09/19 02:00 600 mg BID AMRIT Administration Loratadine 10 mg 09/28/19 18:00 09/30/19 09:51 Claritin - PO 10 mg DAILY AMRIT Administration Loratadine 10 mg 10/01/19 10:00 10/06/19 14:38 Claritin - PO Not Given DAILY AMRIT Magnesium Oxide 400 mg 10/13/19 19:58 10/13/19 21:54 Mag-Ox - PO 10/13/19 19:59 400 mg ONCE ONE Administration Magnesium Oxide 400 mg 10/18/19 11:00 10/18/19 12:31 Mag-Ox - PO 10/18/19 11:01 400 mg ONCE ONE Administration Magnesium Oxide 400 mg 10/19/19 08:58 10/19/19 09:35 Mag-Ox - PO 10/19/19 08:59 400 mg ONCE ONE Administration Magnesium Sulfate 1 gm 09/28/19 19:23 09/28/19 19:34 Magnesium Sulfate IVPB 09/28/19 19:24 1 gm ONCE ONE Administration Magnesium Sulfate 2 gm 10/21/19 15:00 10/21/19 15:20 Magnesium Sulfate IVPB 10/21/19 15:01 2 gm ONCE ONE Administration Magnesium Sulfate 2 gm 10/26/19 13:48 10/26/19 19:30 Magnesium Sulf 2 G/50 Ml Bag IVPB 10/26/19 13:49 2 gm ONCE ONE Administration Magnesium Sulfate/Dextrose 1 gm 10/20/19 12:47 10/20/19 13:02 Magnesium 1gm/D5w - IVPB 10/20/19 12:48 1 gm ONCE ONE Administration Methylprednisolone Sodium Succinate 40 mg 10/21/19 11:00 10/21/19 12:06 Solu-Medrol - IVPUSH 10/21/19 11:01 40 mg ONCE ONE Administration Metolazone 2.5 mg 10/02/19 16:26 10/02/19 17:15 Zaroxolyn - PO 10/02/19 16:27 2.5 mg ONCE ONE Administration Metolazone 2.5 mg 10/04/19 05:30 10/04/19 05:35 Zaroxolyn - PO 10/04/19 05:31 2.5 mg ONCE ONE Administration Miscellaneous 1 each 09/24/19 22:00 09/30/19 22:54 Lidoderm Patch Removal MC Not Given DAILY@2199 [facility] Miscellaneous 1 each 10/13/19 22:00 10/27/19 21:05 Lidoderm Patch Removal MC 1 each DAILY@2199 [facility] Administration Multi-Ingredient Ointment 1 applic 10/25/19 13:51 10/25/19 15:57 Zinc Oxide TP 10/25/19 13:52 Not Given DAILY ONE Multi-Ingredient Ointment 1 applic 10/25/19 14:00 10/27/19 09:59 Zinc Oxide TP 1 applic DAILY AMRIT Administration Multi-Ingredient Ointment 1 applic 10/27/19 10:14 10/28/19 10:20 Zinc Oxide TP 1 applic DAILY AMRIT Administration Nitroglycerin 0.5 inch 10/02/19 18:00 10/03/19 12:17 Nitro-Bid 2% Paste - TD 0.5 inch Q6HPO AMRIT Administration Nitroglycerin 1 inch 10/03/19 14:26 10/28/19 12:24 Nitro-Bid 2% Paste - TD 1 inch Q6HPO AMRIT Administration Ptnt's Own Med ( 2 gm 09/26/19 14:13 09/29/19 17:19 Diclofenac Sodium [ TP 2 gm Diclofenac Sodium] 2 Q8H PRN Administration Gm) PAIN Non-Formulary Medication 1 each 10/16/19 08:37 10/16/19 09:40 Patient's Own Med TP 1 each BID PRN Administration FOR ITCHING Nystatin 1 applic 10/18/19 18:00 10/27/19 06:17 Mycostatin Cream - TP 1 applic Q6HPO AMRIT Administration Nystatin 1 applic 10/27/19 10:15 10/28/19 10:20 Mycostatin Cream - TP 1 applic BID AMRIT Administration Ondansetron HCl 8 mg 09/28/19 19:22 09/28/19 19:34 Zofran Injection IVPB 09/28/19 19:23 8 mg ONCE ONE Administration Oxycodone HCl 5 mg 09/24/19 22:55 09/29/19 15:45 Roxicodone - PO 5 mg Q6H PRN Administration PAIN LEVEL 7 - 10 Oxycodone HCl 5 mg 10/01/19 01:38 10/05/19 04:16 Roxicodone - PO 5 mg Q6H PRN Administration PAIN LEVEL 6-10 Oxycodone HCl 2.5 mg 10/15/19 16:04 10/16/19 23:51 Roxicodone - PO 2.5 mg Q6H PRN Administration PAIN LEVEL 6-10 Pantoprazole Sodium 40 mg 09/26/19 10:00 09/30/19 09:51 Protonix - PO 40 mg DAILY AMRIT Administration Pantoprazole Sodium 40 mg 10/01/19 10:00 10/22/19 10:45 Protonix - PO 40 mg DAILY AMRIT Administration Pantoprazole Sodium 40 mg 10/22/19 22:45 10/28/19 10:18 Protonix Iv IVPUSH 40 mg BID AMRIT Administration Polyethylene Glycol 17 gm 09/24/19 23:00 09/30/19 22:54 Miralax (For Daily Use) - PO Not Given BID AMRIT Polyethylene Glycol 17 gm 10/01/19 10:00 10/28/19 10:20 Miralax (For Daily Use) - PO Not Given BID AMRIT Potassium Chloride 40 meq 09/27/19 09:46 09/27/19 10:46 K-Dur - PO 09/27/19 09:47 Not Given ONCE ONE Potassium Chloride 40 meq 09/27/19 11:28 09/27/19 13:23 Potassium Chloride Oral Liquid PO 09/27/19 11:29 40 meq ONCE ONE Administration Potassium Chloride 40 meq 10/02/19 08:39 10/02/19 10:11 K-Dur - PO 10/02/19 08:40 40 meq ONCE ONE Administration Potassium Chloride 20 meq 10/11/19 12:30 10/11/19 15:51 K-Dur - PO 10/11/19 16:31 20 meq Q4H AMRIT Administration Potassium Chloride 20 meq 10/11/19 16:45 10/11/19 16:59 K-Dur - PO 10/11/19 20:46 Not Given Q4H AMRIT Potassium Chloride 20 meq 10/20/19 13:00 10/20/19 13:02 K-Dur - PO 10/20/19 13:01 20 meq ONCE ONE Administration Potassium Chloride 40 meq 10/28/19 11:05 10/28/19 12:24 K-Dur - PO 10/28/19 11:06 40 meq ONCE ONE Administration Sevelamer Carbonate 800 mg 10/06/19 17:30 10/14/19 12:07 Renvela - PO 800 mg TIDCM AMRIT Administration Simethicone 80 mg 09/25/19 15:59 09/28/19 21:46 Mylicon - PO 80 mg Q4H PRN Administration GAS Simethicone 80 mg 09/30/19 23:14 10/02/19 14:25 Mylicon - PO 80 mg Q4H PRN Administration GAS Spironolactone 25 mg 09/27/19 13:30 09/27/19 13:23 Aldactone - PO 09/27/19 13:31 25 mg ONCE ONE Administration Spironolactone 50 mg 10/15/19 14:30 10/15/19 14:58 Aldactone - PO 10/15/19 14:31 50 mg ONCE ONE Administration Spironolactone 50 mg 10/19/19 17:30 10/19/19 17:40 Aldactone - PO 10/19/19 17:31 50 mg ONCE ONE Administration Triamcinolone Acetonide 1 applic 10/15/19 22:00 10/17/19 22:24 Aristocort 0.1% Cream - TP 1 applic BID AMRIT Administration Triamcinolone Acetonide 1 applic 10/18/19 10:00 10/28/19 10:19 Aristocort 0.1% Cream - TP 1 applic DAILY AMRIT Administration Triamcinolone Acetonide 1 applic 10/19/19 10:15 10/28/19 10:19 Aristocort 0.1% Lotion - TP 1 applic BID AMRIT Administration <Hakeem Quiroz - Last Filed: 11/22/19 16:44> Medical Decision Making - Medical Decision Making 09/24/19 16:52 89y/o F hx of Afib (on eloquis) , HTN, CVA, CHF, chronic back pain, T2DM, hypothyroisdism presents to the ED from [facility]. sent in for worsening edema, maurice and uncontrolled back pain. labs, lumbar spine ct ekg chest x-ray 09/24/19 17:22 per [facility] pt was transferred and not d/c but can return to [facility] when d/c per Ms. Grady (evening genetic supervisor) 09/24/19 19:39 chf [place] bnp [id number] MAURICE Cr: 3.[address] abd & pelvis w/o contrast A 4 cm left hepatic lobe hypodense lesion is noted suggestive of metastatic neoplastic disease. Possible additional right hepatic lobe lesions are also seen. Evaluation of the liver is difficult due to artifact arising from the patient's upper extremities. Correlation with sonography may be considered. A 2.7 cm enlarged right lower quadrant mesenteric lymph node is noted. Several mildly enlarged retroperitoneal lymph nodes are seen. Colonic diverticulosis is noted without CT evidence of acute diverticulitis. Bilateral adrenal nodules are seen without gross interval change comparison to a chest CT exam of 04/09/2019. Small left inguinal hernia containing fat and a very short segment of a nondilated sigmoid colon loop. pt refused all attempts at straight cath for urine,wants to void herself 09/24/19 20:07 delays in lactic acid, lab contacted, will run KIT 09/24/19 20:38 Lactic acid unremarkable pt. microblogged for admission. consult put in for dr. georges (non-emergent) <Geno Calixto - Last Filed: 11/01/19 19:44> Discharge - Discharge Information Problems reviewed: Yes <Geno Calixto - Last Filed: 11/01/19 19:44> - Discharge Information Problems reviewed: Yes <Hakeem Quiroz - Last Filed: 11/22/19 16:44> - Discharge Information Clinical Impression/Diagnosis: MAURICE (acute kidney injury) Condition: Stable Disposition: PENITENTIARY FACILITY
[2019-09-24] MEDS ORDERED: LIDOCAINE 5% TOPICAL PATCH TP ONE (16:53)
[2019-09-24] MEDS ORDERED: LIDOCAINE 5% TOPICAL PATCH ONE (17:06)
[2019-09-24] MEDS ORDERED: ACETAMINOPHEN 1000 MG/100 ML VIAL (NON FORMULARY) IVPB ONE (17:23)
[2019-09-24 18:20] LABS: BASO % 0.7 % (0-2.0); EOS % 5.1 % (0-4.5); HEMATOCRIT 22.8 % (32.4-45.2); HEMOGLOBIN 7.4 GM/dL (10.7-15.3); LYMPH % 8.1 % (8-40); MCH 29.8 pg (25.7-33.7); MCHC 32.3 g/dl (32.0-36.0); MEAN CELL VOLUME 92.3 fl (80-96); MEAN PLT VOLUME 8.4 fl (7.5-11.1); MONO % 12.3 % (3.8-10.2); NEUT % 73.8 % (42.8-82.8); PLATELET COUNT 196 K/MM3 (134-434); RBC 2.47 M/mm3 (3.60-5.2); RDW 19.3 % (11.6-15.6); WHITE BLOOD COUNT 18.5 K/mm3 (4.0-10.0)
[2019-09-24 18:25] LABS: INR 1.69 (0.83-1.09); PROTHROMBIN TIME (PATIENT) 20.1 SEC (9.7-13.0)
[2019-09-24 18:28] LABS: ACTIVATED PTT 30.4 SECONDS (25.2-36.5)
[2019-09-24 18:44] LABS: ANISOCYTOSIS 2+; PLATELET ESTIMATE ADEQUATE
[2019-09-24 18:51] LABS: ALBUMIN 2.7 g/dl (3.4-5.0); ALK PHOS 301 U/L (45-117); ANION GAP 14 MMOL/L (8-16); BILIRUBIN,TOTAL 0.4 mg/dL (0.2-1); BLOOD UREA NITROGEN 100.8 mg/dL (7-18); CHLORIDE 88 mmol/L (98-107); CO2 25 mmol/L (21-32); CREATININE 3.4 mg/dL (0.55-1.3); GLUCOSE,RANDOM 121 mg/dL (74-106); N-TERMINAL BNP 19892.9 pg/ml (5-450); POTASSIUM 3.6 mmol/L (3.5-5.1); SGOT/AST 25 U/L (15-37); SGPT/ALT 15 U/L (13-61); SODIUM 127 mmol/L (136-145); TOT PROT 7.4 g/dl (6.4-8.2)
[2019-09-24] MEDS ORDERED: ACETAMINOPHEN INJECTION 100 ML IVPB ONE (19:07)
[2019-09-24] MEDS ORDERED: FUROSEMIDE 40 MG/4 ML INJECTABLE VIAL IVPUSH ONE (19:31)
[2019-09-24] MEDS ORDERED: FUROSEMIDE 40 MG/4 ML INJECTABLE VIAL ONE (19:40)
--- NOTE | 2019-09-24 20:58 | PN ---
Teaching Attending Note Name of Resident: Rebekah Sharpe ATTENDING PHYSICIAN STATEMENT I saw and evaluated the patient. I reviewed the resident's note and discussed the case with the resident. I agree with the resident's findings and plan as documented. SUBJECTIVE: Patient is an 89 year old woman with a PMH of Afib (on Eliquis), HFpEF, HTN, CVA, Mastectomy for left breast cancer, Chronic back pain, NIDDM and Hypothyroidism who presents to the ER from [facility] for worsening leg edema, MAURICE and uncontrolled back pain. Per senior living paper work, patient has been discharged from the facility since they cannot meet the needs of the resident. She has SOB on exertion, and uses oxygen PRN at baseline (2-3L). She denies worsening SOB, chest pain, fevers, cough, abdominal tenderness, chills, dysuria or diarrhea. Per daughter Marybeth, she had multiple episodes of vomiting yesterday night and has not moved her bowels since yesterday. Tested negative for COVID-19 on 08/12/2019. Denies alcohol, tobacco or illicit drug use. No sick contacts or recent travels. Family history is unremarkable. OBJECTIVE: Alert Vital Signs Period Temp Pulse Resp BP Sys/Hernandez Pulse Ox Last 24 Hr 98.1 F-98.3 F 76-80 20-22 128-133/56-64 100-100 HEENT: No Jaundice, eye redness or discharge, PERRLA, EOMI. Normocephalic, atraumatic. External ears are normal and hearing is grossly intact. No nasal discharge. Neck: Supple, nontender. No palpable adenopathy or thyromegaly. No JVD Chest: Good effort. Bibasilar crackles. Clear to percussion. Heart: Irregularly irregular. No S3, rub or murmur Abdomen: Not distended, soft, diffuse tenderness and no HSM. No rebound or guarding. Normal bowel sounds. Ext: Peripheral pulses intact. Leg edema. Lower back tenderness. Skin: Warm and dry. No petechiae or rash; ecchymosis in both arms. Neuro: Alert. Oriented x3. CN 2-12 grossly intact. Sensation grossly intact in all four extremities and DTR are symmetric. Psych: Appropriate mood and affect. Good insight. Home Medications Medication Instructions Recorded Calcium Carbonate/Vitamin D3 1 each PO DAILY 06/23/18 [Calcium 500-Vit D3 400 Tablet] Carvedilol [Coreg -] 25 mg PO BID 06/23/18 Polyethylene Glycol 3350 [Miralax 17 gm PO DAILY PRN bottle 04/27/19 119 gm Btl -] Amlodipine Besylate [Norvasc -] 5 mg PO DAILY 08/12/19 Apixaban [Eliquis] 2.5 mg PO BID 08/12/19 Furosemide [Lasix -] 80 mg PO BID 08/12/19 Isosorbide Mononitrate [Imdur -] 60 mg PO DAILY 08/12/19 Sitagliptin Phosphate [Januvia] 25 mg PO DAILY 08/12/19 hydrALAZINE HCL [Apresoline -] 10 mg PO TID 08/12/19 Insulin Glargine,Hum.rec.anlog 25 unit SQ DAILY 09/24/19 [Lantus] Insulin Lispro [Humalog] 100 unit SQ PRN 09/24/19 Letrozole [Femara] 2.5 mg PO DAILY 09/24/19 Omeprazole 20 mg PO DAILY 09/24/19 Ondansetron [Zofran *Odt*] 4 mg SL Q4H PRN 09/24/19 Oxycodone HCl/Acetaminophen 1 tab PO BID 09/24/19 [Percocet 5-325 mg Tablet] Pantoprazole Sodium [Protonix] 40 mg PO DAILY 09/24/19 Simethicone 125 mg PO Q4H PRN 09/24/19 Abnormal Lab Results 09/24/19 09/24/19 09/24/19 16:49 16:49 16:49 WBC 18.5 H RBC 2.47 L Hgb 7.4 L Hct 22.8 L RDW 19.3 H Absolute Neuts (auto) 13.7 H Monocytes % 12.3 H Monocytes % (Manual) 13 H Eosinophils % 5.1 H PT with INR 20.10 H INR 1.69 H Sodium 127 L Chloride 88 L BUN 100.8 H Creatinine 3.4 H Random Glucose 121 H Calcium 8.0 L Alkaline Phosphatase 301 H B-Natriuretic Peptide 83413.9 H Albumin 2.7 L Urine Protein Ur Leukocyte Esterase 09/24/19 20:45 WBC RBC Hgb Hct RDW Absolute Neuts (auto) Monocytes % Monocytes % (Manual) Eosinophils % PT with INR INR Sodium Chloride BUN Creatinine Random Glucose Calcium Alkaline Phosphatase B-Natriuretic Peptide Albumin Urine Protein 3+ H Ur Leukocyte Esterase 2+ H Current Medications Generic Name Dose Route Start Last Admin Trade Name Meena PRN Reason Stop Dose Admin Apixaban 2.5 mg 09/24/19 23:00 Eliquis - PO BID [facility] Furosemide 80 mg 09/25/19 23:00 Lasix Injection - IVPUSH 09/25/19 23:01 ONCE ONE Iron Sucrose 100 mg/ Sodium 100 mls @ 200 mls/hr 09/24/19 23:00 Chloride IVPB 09/24/19 23:29 ONCE ONE Ceftriaxone Sodium 1 gm/ 50 mls @ 100 mls/hr 09/24/19 23:00 Dextrose IVPB 09/24/19 23:29 ONCE ONE Ceftriaxone Sodium 1 gm/ 50 mls @ 100 mls/hr 09/25/19 10:00 Dextrose IVPB DAILY [facility] Linezolid 600 mg in 300 mls @ 300 mls/hr 09/24/19 23:30 Zyvox 600 Mg Premix Bag (Restricted To Id) - IVPB 09/25/19 00:29 ONCE ONE Protocol Insulin Aspart 1 vial 09/25/19 07:00 Novolog Vial Sliding Scale - SQ ACHS [facility] Protocol Letrozole 2.5 mg 09/25/19 10:00 Femara - PO DAILY [facility] Levothyroxine Sodium 100 mcg 09/25/19 07:00 Synthroid - PO ACBK [facility] Miscellaneous 1 each 09/24/19 22:00 Lidoderm Patch Removal MC DAILY@2200 [facility] Oxycodone HCl 5 mg 09/24/19 22:55 Roxicodone - PO Q6H PRN PAIN LEVEL 7 - 10 Polyethylene Glycol 17 gm 09/24/19 23:00 Miralax (For Daily Use) - PO BID [facility] ASSESSMENT AND PLAN: 1. CHF exacerbation/UTI/Low back pain - Anemia, UTI and suboptimal diuretic dose are likely precipitating factors for CHF. ECHO from 08/13/2019 showed mild concentric LV hypertrophy and LVEF of 55-60%. EKG shows Afib at 84/minute, LVH, LAD and QTc [address]-T wave changes. Initial troponin is negative. CXR shows cardiomegaly and pulmonary vascular congestion. CT abdomen/pelvis with out contrast shows liver mass and lymphadenopathy. Lumbar spine CT dose not show any fracture. Based on historical cultures (Enteroccocus faecalis/E.coli), will treat UTI with IV Ceftriaxone and Linezolid. Consult ID. Hyponatremia is chronic and multifactorial. Will restrict free water intake and correct hyperglycemia. Treat with appropriate dose of IV lasix, monitor urine output, monitor on telemetry, restrict dietary salt intake, get daily standing weight and consult Cardiology. Will treat flareup of back pain with Lidocaine patch and Percocet. Provide bowel regimen with Miralax bid and Senna. Transmitted pain from the back and constipation may explain abdominal findings. Viral testing for COVID-19 ordered and patient placed on airborne, droplet and contact isolation. Will continue comprehensive care for all of patients comorbid conditions. 2. Hypoalbuminemia - Possibly due to combined effects of proteinuria, malnutrition and inflammation associated with comorbid conditions. Will ensure adequate dietary protein intake and also consult patient account liaison. 3. DM For now, we will hold the home diabetes drugs and implement sliding scale insulin regimen. Provide comprehensive diabetes care with patient teaching and counseling about the importance of adherence to prescribed diabetes regimen, euglycemia, eye care and foot care. 4. CKD with superimposed MAURICE - MAURICE likely partly due to CHF. Will consult nephrology and avoid nephrotoxic agents such as NSAIDS, aminoglycosides, contrast dyes and certain Alternative medicine products. 5. Anemia - Likely multifctorial including CKD anemia. Iron saturation noted to be 10% last month. Will treat with IV venofer 500 mg x 4 doses and Procrit. May be able to avoid blood transfusion. 6. Obesity Counseled on the risks associated with obesity. Will provide patient all the necessary assistance, counseling and positive reinforcement to facilitate weight loss. Consult patient account liaison. 7. Hypertension Will restart suitable outpatient antihypertensive drugs when clinically appropriate. Subsequently, will revise regimen to ensure zosmy-kax-fnaeb excellent BP control. Patient counseled on the injurious effects of uncontrolled hypertension. Nonpharmacologic measures to control hypertension like weight loss, salt restriction and exercise stressed. Importance of adherence to treatment regimen and attainment of normotension emphasized. 8. DVT prophylaxis - On Eliquis for Afib. 9. Advance directives - Full code
[2019-09-24 21:34] LABS: EPI CELLS 6 /uL (0-25.1); HYALINE CASTS 1 /uL (0-3.1); PH,URINE 5.5 (5.0-8.0); URINE APPEARANCE TURBID; URINE BILIRUBIN NEGATIVE (NEGATIVE); URINE COLOR YELLOW; URINE GLUCOSE (UA) NEGATIVE (NEGATIVE); URINE KETONE NEGATIVE (NEGATIVE); URINE LEUK ESTERASE 2+ (NEGATIVE); URINE NITRITE NEGATIVE (NEGATIVE); URINE PROTEIN 3+ (NEGATIVE); URINE RBC 25 /uL (0-23.9); URINE UROBILINOGEN 0.2 mg/dL (0.2-1.0); URINE WBC 1325 /uL (0-25.8)
--- NOTE | 2019-09-24 21:53 | HP ---
CHIEF COMPLAINT: leg swelling, back pain, nausea PCP: [facility] HISTORY OF PRESENT ILLNESS: Pt is an 89 y/o female from [facility] with diastolic CHF, a-fib (on Eliquis), CKD, breast cancer s/p mastectomy, myelodysplasia, IDDM type 2, hypothyroidism, HLD, CVA, and GERD who presents with b/l leg swelling and nausea for "weeks" and back pain for "several days." It was reported pt has not been receiving Lasix due to MAURICE. Pt also reports entire right side back pain with no known injury. Pt reports nausea for the last several weeks with some nbnb vomiting. Last BM was 2 days ago. ER course was notable for: (1) WBC 18.5, Hb 7.4 (2) Na 127, Cl 88, BUN 100, Cr 3.4, BNP 27486 (3) CT abd- 4cm left hepatic lobe hypodense lesion possibly metastatic, also possibly on right side, RLQ 2.7cm mesenteric lymph node enlargement and enlarged retroperitoneal lymph nodes, left inguinal hernia with fat and small area of non-dilated sigmoid colon loop (4) CXR- pulmonary vascular congestion similar to 08/24, cannot r/o superimposed infiltrate (5) EKG- HR 84, afib, LAD, LVH, no acute ST changes, QTc 484 PAST MEDICAL HISTORY: diastolic CHF, a-fib (on Eliquis), CKD, breast cancer s/p mastectomy, myelodysplasia, IDDM type 2, hypothyroidism, HLD, CVA, and GERD PAST SURGICAL HISTORY: umbilical hernia repair mastectomy Social History: Smoking: denies Alcohol: denies Drugs: denies lives at [facility] Allergies NSAIDS (Non-Steroidal Anti-Inflamma Allergy (Severe, Verified 04/08/19 22:55) Difficulty Breathing ibuprofen Allergy (Intermediate, Verified 04/08/19 22:55) Rash meloxicam [From Mobic] Allergy (Intermediate, Verified 04/08/19 22:55) Rash all to all n-saids ? except Asprin rosiglitazone maleate [From Avandia] Allergy (Verified 04/08/19 22:55) albuterol Adverse Reaction (Intermediate, Verified 04/08/19 22:55) Elevated Blood Pressure ELEVATED SUGAR/ELEVATED TEMP epinephrine Adverse Reaction (Intermediate, Verified 04/08/19 22:55) Elevated Blood Pressure ELEVATED SUGAR/TEMP oxycodone HCl [From Percodan] Adverse Reaction (Intermediate, Verified 04/08/19 22:55) Elevated Blood Pressure ELEVATED SUGAR/ELEVATED TEMP oxycodone terephthalate [From Percodan] Adverse Reaction (Intermediate, Verified 04/08/19 22:55) Elevated Blood Pressure ELEVATED TEMP/SUGAR flu shot Adverse Reaction (Severe, Uncoded 04/08/19 22:55) [employer] HOME MEDICATIONS: Home Medications Medication Instructions Recorded Calcium Carbonate/Vitamin D3 1 each PO DAILY 06/23/18 [Calcium 500-Vit D3 400 Tablet] Carvedilol [Coreg -] 25 mg PO BID 06/23/18 Polyethylene Glycol 3350 [Miralax 17 gm PO DAILY PRN bottle 04/27/19 119 gm Btl -] Amlodipine Besylate [Norvasc -] 5 mg PO DAILY 08/12/19 Apixaban [Eliquis] 2.5 mg PO BID 08/12/19 Furosemide [Lasix -] 80 mg PO BID 08/12/19 Isosorbide Mononitrate [Imdur -] 60 mg PO DAILY 08/12/19 Sitagliptin Phosphate [Januvia] 25 mg PO DAILY 08/12/19 hydrALAZINE HCL [Apresoline -] 10 mg PO TID 08/12/19 Insulin Glargine,Hum.rec.anlog 25 unit SQ DAILY 09/24/19 [Lantus] Insulin Lispro [Humalog] 100 unit SQ PRN 09/24/19 Letrozole [Femara] 2.5 mg PO DAILY 09/24/19 Omeprazole 20 mg PO DAILY 09/24/19 Ondansetron [Zofran *Odt*] 4 mg SL Q4H PRN 09/24/19 Oxycodone HCl/Acetaminophen 1 tab PO BID 09/24/19 [Percocet 5-325 mg Tablet] Pantoprazole Sodium [Protonix] 40 mg PO DAILY 09/24/19 Simethicone 125 mg PO Q4H PRN 09/24/19 REVIEW OF SYSTEMS see HPI PHYSICAL EXAMINATION Vital Signs - 24 hr 09/24/19 09/24/19 09/24/19 16:33 16:36 20:53 Temperature 98.3 F 98.1 F Pulse Rate 80 Pulse Rate [ 76 Apical] Respiratory 22 H 20 Rate Blood Pressure 133/56 L Blood Pressure 128/64 [Right Arm] O2 Sat by Pulse 100 100 100 Oximetry (%) GENERAL: Awake, alert, and fully oriented, in mild distress. HEAD: Normal with no signs of trauma. EYES: Pupils equal, round and reactive to light, extraocular movements intact, conjunctiva clear. EARS, NOSE, THROAT: Ears normal, nares patent, moist mucous membranes. NECK: Normal range of motion. LUNGS: Tachypneic. Clear to auscultation bilaterally. No wheezes, and no crackles. On 2L NC. HEART: Regular rate and rhythm, normal S1 and S2 without murmur. ABDOMEN: Soft, diffusely tender to palpation, not distended, normoactive bowel sounds. MUSCULOSKELETAL: Normal range of motion at all joints. UPPER EXTREMITIES: Warm, well-perfused. B/l ecchymosis with bullae on left arm. No peripheral edema. LOWER EXTREMITIES: Warm, well-perfused. B/l +2 pitting edema to knee, edema b/l thighs non-pitting. NEUROLOGICAL: Cranial nerves II-XII intact. Normal speech. PSYCHIATRIC: Semi-cooperative. Good eye contact. SKIN: Warm, dry, normal turgor. Laboratory Results - last 24 hr 09/24/19 09/24/19 09/24/19 16:49 16:49 16:49 WBC 18.5 H RBC 2.47 L Hgb 7.4 L Hct 22.8 L MCV 92.3 MCH 29.8 MCHC 32.3 RDW 19.3 H Plt Count 196 MPV 8.4 Absolute Neuts (auto) 13.7 H Total Counted 100 Neutrophils % 73.8 Neutrophils % (Manual) 60.0 Band Neutrophils % 9.0 Lymphocytes % 8.1 Lymphocytes % (Manual) 12.0 D Monocytes % 12.3 H Monocytes % (Manual) 13 H Eosinophils % 5.1 H Eosinophils % (Manual) 3.0 Basophils % 0.7 Nucleated RBC % 0 Metamyelocytes 1 D Hypochromia 1+ Platelet Estimate Adequate Platelet Comment No clumping noted Polychromasia 1+ Anisocytosis 2+ Microcytosis 1+ PT with INR 20.10 H INR 1.69 H PTT (Actin FS) 30.4 Sodium 127 L Potassium 3.6 Chloride 88 L Carbon Dioxide 25 Anion Gap 14 BUN 100.8 H Creatinine 3.4 H Est GFR (CKD-EPI)AfAm 13.17 Est GFR (CKD-EPI)NonAf 11.37 Random Glucose 121 H Lactic Acid Calcium 8.0 L Total Bilirubin 0.4 AST 25 ALT 15 Alkaline Phosphatase 301 H Troponin I < 0.02 B-Natriuretic Peptide 97158.9 H Total Protein 7.4 Albumin 2.7 L Urine Color Urine Appearance Urine pH Ur Specific [place] Urine Protein Urine Glucose (UA) Urine Ketones Urine Blood Urine Nitrite Urine Bilirubin Urine Urobilinogen Ur Leukocyte Esterase Urine WBC (Auto) Urine RBC (Auto) Urine Casts (Auto) U Epithel Cells (Auto) Urine Bacteria (Auto) 09/24/19 09/24/19 19:10 20:45 WBC RBC Hgb Hct MCV MCH MCHC RDW Plt Count MPV Absolute Neuts (auto) Total Counted Neutrophils % Neutrophils % (Manual) Band Neutrophils % Lymphocytes % Lymphocytes % (Manual) Monocytes % Monocytes % (Manual) Eosinophils % Eosinophils % (Manual) Basophils % Nucleated RBC % Metamyelocytes Hypochromia Platelet Estimate Platelet Comment Polychromasia Anisocytosis Microcytosis PT with INR INR PTT (Actin FS) Sodium Potassium Chloride Carbon Dioxide Anion Gap BUN Creatinine Est GFR (CKD-EPI)AfAm Est GFR (CKD-EPI)NonAf Random Glucose Lactic Acid 1.0 Calcium Total Bilirubin AST ALT Alkaline Phosphatase Troponin I B-Natriuretic Peptide Total Protein Albumin Urine Color Yellow Urine Appearance Turbid Urine pH 5.5 Ur Specific [place] 1.015 Urine Protein 3+ H Urine Glucose (UA) Negative Urine Ketones Negative Urine Blood Negative Urine Nitrite Negative Urine Bilirubin Negative Urine Urobilinogen 0.2 Ur Leukocyte Esterase 2+ H Urine WBC (Auto) 1325 Urine RBC (Auto) 25 Urine Casts (Auto) 1 U Epithel Cells (Auto) 6 Urine Bacteria (Auto) >10,000 ASSESSMENT/PLAN: Pt is an 89 y/o female from [facility] with diastolic CHF, a-fib (on Eliquis), CKD, breast cancer s/p mastectomy, myelodysplasia, IDDM type 2, hypothyroidism, HLD, CVA, and GERD who presents with b/l leg swelling and nausea for "weeks" and back pain for "several days." #shortness of breath 2/2 acute on chronic diastolic CHF #hyponatremia likely 2/2 fluid overload #MAURICE on CKD -BNP , up from 9200 last month's admission -Lasix 80mg IV, 40 given in ED -I/Os and daily weights -hold amlodipine, hydralazine, and carvedilol to allow for pressure drop and prevent hypoperfusion from large doses of Lasix -serial BMPs to monitor Cr (baseline near 2) -nephrology consult #UTI -ceftriaxone -linezolid -urine culture -ID consult #iron deficiency anemia -Hb 7.4 (8.3 s/p transfusion last admission) -Venofer -occult stool #new liver mass -hx of breast cancer and myelodysplasia -heme/onc consult #generalized abdominal pain -2/2 constipation vs liver mass -oxycodone 5mg Q6H -miralax BID -consider liver U/S -QTc 484, try to avoid Zofran for nausea/vomiting #back pain -no known fall -pain control -PT DVT Ppx Eliquis FEN PO fluids monitor Na, Cl, and Cr sodium/diabetic diet dispo med/surg FULL CODE Visit type - Emergency Visit Emergency Visit: Yes ED Registration Date: 09/24/19 Care time: The patient presented to the Emergency Department on the above date and was hospitalized for further evaluation of their emergent condition. - New Patient This patient is new to me today: Yes Date on this admission: 09/24/19 - Critical Care Critical Care patient: No ATTENDING PHYSICIAN STATEMENT I saw and evaluated the patient. I reviewed the resident's note and discussed the case with the resident. I agree with the resident's findings and plan as documented. SUBJECTIVE: OBJECTIVE: ASSESSMENT AND PLAN:
--- NOTE | 2019-09-24 21:58 | PDOC ---
Documentation entered by Kena Grady SCRIBE, acting as scribe for Hakeem Quiroz DO. Hakeem Quiroz DO: This documentation has been prepared by the Miguel A graves Lincy, SCRIBE, under my direction and personally reviewed by me in its entirety. I confirm that the documentation accurately reflects all work, treatment, procedures, and medical decision making performed by me. Attending Attestation - Resident Resident Name: MarilyGeno - ED Attending Attestation I have performed the following: I have examined & evaluated the patient, The case was reviewed & discussed with the resident, I agree w/resident's findings & plan - HPI HPI: 09/24/19 17:32 Agree with the resident. - Physicial Exam PE: 09/24/19 17:36 GENERAL: Well-appearing female, in no apparent distress. ABDOMEN: Protuberant abdomen, distended with minimal tenderness LLQ, RLQ and mid epigastrium. Positive bowel sounds, currently in no abdominal distress. EXTREMITIES: 3+ bilateral lower extremity pitting edema up to anasarca. - Medical Decision Making 09/24/19 17:36 A/P: 89 year old female with extensive medication history was sent in from shelter for shortness of breath and constipation. Patient reports she hasnt had a bowel movement since yesterday and reports vomiting (states shes been spitting up) and nauseous. Will evaluate for small bowel obstruction with a CT abdomen and pelvis. Will get cardiac enzymes for shortness of breath. Patients will require placement, social work, and physical therapy. Will admit otherwise. 09/24/19 19:[address] abdomen/pelvis At this time she has acute on chronic renal failure likely secondary to heart failure, fluid overload. Will give lasix 09/24/19 21:05 Admitted for cardiorenal induced failure. Patient is comfortable and afebrile. 09/24/19 21:51 EKG: Afib, 84. Left access deviation, borderline LVH. nonspecific intraventricular conduction delay, no acute ischemia Time: 1745. Discharge - Discharge Information Problems reviewed: Yes Clinical Impression/Diagnosis: MAURICE (acute kidney injury) Condition: Stable Disposition: [facility] - Follow up/Referral - Patient Discharge Instructions - Post Discharge Activity
[2019-09-24] MEDS ORDERED: CEFTRIAXONE 1 GM in DEXTROSE 5%-WATER - 50 ML IVPB ONE (23:00)
[2019-09-24] MEDS ORDERED: IRON SUCROSE INJECTION 100 MG in SODIUM CHLORIDE 95 ML IVPB ONE (23:00)
[2019-09-24] MEDS ORDERED: LINEZOLID 600 MG PREMIX BAG 600 MG/300 ML BAG IVPB ONE (23:30)
[2019-09-24] MEDS ORDERED: cefTRIAXone SODIUM 1 GM VIAL ONE (23:46)
[2019-09-24] MEDS ORDERED: DEXTROSE 5%-WATER - 50 ML IVPB ONE (23:46)
[2019-09-25] MEDS: oxyCODONE HCL 5 MG TABLET PO PRN ×2 (00:15→23:51)
[2019-09-25] MEDS: APIXABAN 2.5 MG TABLET PO SCH ×3 (00:19→22:05)
[2019-09-25] MEDS: LIDOCAINE PATCH REMOVAL MC SCH ×2 (00:19→23:57)
[2019-09-25] MEDS: POLYETHYLENE GLYCOL 3350 119 GM BTL PO SCH ×3 (00:25→22:44)
[2019-09-25] MEDS: INSULIN SLIDING SCALE (NOVOLOG) 1 VIAL SQ SCH ×4 (06:11→23:51)
[2019-09-25] MEDS: LEVOTHYROXINE NA 100 MCG TABLET (FP) PO SCH (06:12)
[2019-09-25 07:57] LABS: EOS % 5.9 % (0-4.5); HEMATOCRIT 22.3 % (32.4-45.2); HEMOGLOBIN 7.2 GM/dL (10.7-15.3); LYMPH % 5.9 % (8-40); MCH 29.9 pg (25.7-33.7); MCHC 32.2 g/dl (32.0-36.0); MEAN CELL VOLUME 92.9 fl (80-96); MEAN PLT VOLUME 8.6 fl (7.5-11.1); MONO % 13.4 % (3.8-10.2); NEUT % 73.8 % (42.8-82.8); PLATELET COUNT 183 K/MM3 (134-434); WHITE BLOOD COUNT 16.7 K/mm3 (4.0-10.0)
[2019-09-25 08:03] LABS: ALBUMIN 2.6 g/dl (3.4-5.0); BILIRUBIN,TOTAL 0.3 mg/dL (0.2-1); BLOOD UREA NITROGEN 103.7 mg/dL (7-18); CALCIUM 7.2 mg/dL (8.5-10.1); CREATININE 3.3 mg/dL (0.55-1.3); MAGNESIUM 1.9 mg/dL (1.8-2.4); POTASSIUM 3.6 mmol/L (3.5-5.1)
--- NOTE | 2019-09-25 08:11 | PN ---
Physical Exam: SUBJECTIVE: Patient seen and examined at bedside. OBJECTIVE: Vital Signs Period Temp Pulse Resp BP Sys/Hernandez Pulse Ox Last 24 Hr 97.5 F-98.3 F 76-90 20-48 123-133/56-72 100-100 GENERAL: Pleasant, well-appearing female. NAD. AAOx3. Cooperative. HEENT: AT/NC. EOMI. MMM. NECK: Supple, no JVD noted. LUNGS: Bibasilar crackles noted. No wheezes. Symmetric chest rise, good inspiratory effort. HEART: Regular rate and rhythm, normal S1 and S2 without murmur. ABDOMEN: Obese. Soft, mildly tender to palpation. No rebound tenderness or guarding. Normoactive bowel sounds. MUSCULOSKELETAL: Normal range of motion at all joints. UPPER EXTREMITIES: Warm, well-perfused. B/l ecchymosis with bullae on left arm. No peripheral edema. LOWER EXTREMITIES: Warm, well-perfused. B/l +2 pitting edema to knee, edema b/l thighs non-pitting. NEUROLOGICAL: Cranial nerves II-XII intact. Normal speech. PSYCHIATRIC: Semi-cooperative. Good eye contact. SKIN: Warm, dry, normal turgor. CBCD WBC 16.7 K/mm3 (4.0-10.0) H 09/25/19 05:51 RBC 2.40 M/mm3 (3.60-5.2) L 09/25/19 05:51 Hgb 7.2 GM/dL (10.7-15.3) L 09/25/19 05:51 Hct 22.3 % (32.4-45.2) L 09/25/19 05:51 MCV 92.9 fl (80-96) 09/25/19 05:51 MCHC 32.2 g/dl (32.0-36.0) 09/25/19 05:51 RDW 20.0 % (11.6-15.6) H 09/25/19 05:51 Plt Count 183 K/MM3 (134-434) 09/25/19 05:51 MPV 8.6 fl (7.5-11.1) 09/25/19 05:51 CMP Sodium 128 mmol/L (136-145) L 09/25/19 05:51 Potassium 3.6 mmol/L (3.5-5.1) 09/25/19 05:51 Chloride 90 mmol/L (98-107) L 09/25/19 05:51 Carbon Dioxide 27 mmol/L (21-32) 09/25/19 05:51 Anion Gap 12 MMOL/L (8-16) 09/25/19 05:51 BUN 103.7 mg/dL (7-18) H 09/25/19 05:51 Creatinine 3.3 mg/dL (0.55-1.3) H 09/25/19 05:51 Calcium 7.2 mg/dL (8.5-10.1) L 09/25/19 05:51 Total Bilirubin 0.3 mg/dL (0.2-1) 09/25/19 05:51 AST 24 U/L (15-37) 09/25/19 05:51 ALT 16 U/L (13-61) 09/25/19 05:51 Alkaline Phosphatase 295 U/L (45-117) H 09/25/19 05:51 Total Protein 7.0 g/dl (6.4-8.2) 09/25/19 05:51 Albumin 2.6 g/dl (3.4-5.0) L 09/25/19 05:51 Active Medications Generic Name Dose Route Start Last Admin Trade Name Meena PRN Reason Stop Dose Admin Apixaban 2.5 mg 09/24/19 23:00 09/25/19 00:19 Eliquis - PO 2.5 mg BID AMRIT Administration Furosemide 80 mg 09/25/19 23:00 Lasix Injection - IVPUSH 09/25/19 23:01 ONCE ONE Ceftriaxone Sodium 1 gm/ 50 mls @ 100 mls/hr 09/25/19 10:00 Dextrose IVPB DAILY [facility] Insulin Aspart 1 vial 09/25/19 07:00 09/25/19 06:11 Novolog Vial Sliding Scale - SQ Not Given ACHS [facility] Protocol Letrozole 2.5 mg 09/25/19 10:00 Femara - PO DAILY [facility] Levothyroxine Sodium 100 mcg 09/25/19 07:00 09/25/19 06:12 Synthroid - PO 100 mcg ACBK [facility] Administration Miscellaneous 1 each 09/24/19 22:00 09/25/19 00:19 Lidoderm Patch Removal MC Not Given DAILY@2200 [facility] Oxycodone HCl 5 mg 09/24/19 22:55 09/25/19 00:15 Roxicodone - PO 5 mg Q6H PRN Administration PAIN LEVEL 7 - 10 Polyethylene Glycol 17 gm 09/24/19 23:00 09/25/19 00:25 Miralax (For Daily Use) - PO Not Given BID [facility] IMAGING: * CT L-Spine: Mod to marked b/l L4-L5 degenerative facet arthropathy, mod to marked L2-L3, marked L3-L4, marked L4-L5 degenerative central canal stenosis, multilevel b/l foraminal stenoses are noted. No CT evid of fx or bony neoplastic disease. * CTAP: 4 cm L hepatic lobe hypodense lesion sugg of metastatic neoplastic dz. Possible add'l R hepatic lobe lesions are also seen. 2.[address] noted. Several mildly enlarged RP LN seen. Colonic diverticulosis w/o evid of acute diverticulitis. B/l adrenal nodules seen w/o gross interval change compared to chest CT on 04/09/19. Small L inguinal hernia containing fat and very short segment of nondilated sigmoid colon loop. * EKG: Afib, HR 84, LAD, LVH, QTc 484 ms ASSESSMENT/PLAN: 89F from [facility] with pmhx of diastolic CHF, a-fib (on Eliquis), CKD, breast cancer s/p mastectomy, myelodysplasia, IDDM type 2, hypothyroidism, HLD, CVA, and GERD presents with b/l leg swelling and nausea for "weeks" and back pain for several days admitted for acute CHF exacerbation. #Acute on Chronic Diastolic CHF Exacerbation; Initial BNP 19k, b/l LE pitting edema, bibasilar crackles -Given Lasix 40 mg IV total since admission -Daily weights, I/Os, fluid restriction -Cardio consulted -Cont O2 NC, currently on 2L -Lasix 40 IV given x1; will assess volume status daily to determine diuretic dose #Hyponatremia; likely 2/2 fluid overload. Initial 127 --> 128 -Fluid restriction -IV diuresis -Renal consulted -Uosm, Carmita, trend BMP #MAURICE on CKD; 3.4 --> 3.3. (baseline ~2.4-2.8 per EMR) -Lasix 40 IV x1 given in ED -Hold amlodipine, hydralazine, and carvedilol to allow for pressure drop and prevent hypoperfusion from large doses of Lasix -serial BMPs to monitor Cr (baseline near 2) -Renal consulted -Avoid nephrotoxic agents #UTI; UA 3+ Pro, 2+ LE, WBC 1325 -Ceftriaxone 1gm QD (Day 2, started on 09/23), S/p 1 dose of Linezolid -UCx pending -ID consult #Anemia; likely multi-factorial in setting of CKD, myelodysplasia, r/o GI bleed. s/p 1 dose of IV Venofer -Hb 7.4 --> 7.2 (was 8.3 s/p 3U pRBCs last admission 08/24) -During last admission, was seen by heme with recommendation for outpt workup -Tranfuse PRN to maintain Hgb >8 #New 4 cm L Hepatic Lobe lesion; in setting of hx of breast cancer and myelodysplasia -Onc consulted (known to Dr. Estrada) -Liver u/s ordered for further eval #Generalized abdominal pain; 2/2 constipation vs. liver mass -Oxycodone 5mg Q6H PRN for pain -Miralax 17 gm BID for constipation -Consider liver U/S -QTc 484, try to avoid Zofran for nausea/vomiting #Back pain -no known fall -Oxycodone 5 PRN for pain -PT #Hypothyroidism; Cont home meds: 100 #Prophylaxis DVT: Cont home Eliquis 2.5 BID FEN -Fluid restriction -monitor Na, Cl, and Cr -sodium/diabetic diet Dispo -Cont to monitor on tele -Pt has MOLST on file, however specified that she wants FULL CODE. Visit type - Emergency Visit Emergency Visit: Yes ED Registration Date: 09/24/19 Care time: The patient presented to the Emergency Department on the above date and was hospitalized for further evaluation of their emergent condition. - New Patient This patient is new to me today: Yes Date on this admission: 09/25/19 - Critical Care Critical Care patient: No ATTENDING PHYSICIAN STATEMENT I saw and evaluated the patient. I reviewed the resident's note and discussed the case with the resident. I agree with the resident's findings and plan as documented. SUBJECTIVE: OBJECTIVE: ASSESSMENT AND PLAN:
[2019-09-25] MEDS ORDERED: DEXTROSE 5%-WATER - 50 ML IVPB ONE (08:49)
[2019-09-25] MEDS ORDERED: cefTRIAXone SODIUM 1 GM VIAL ONE (08:49)
--- NOTE | 2019-09-25 09:28 | PN ---
Teaching Attending Note Name of Resident: Gail Martinez ATTENDING PHYSICIAN STATEMENT I saw and evaluated the patient. I reviewed the resident's note and discussed the case with the resident. I agree with the resident's findings and plan as documented. SUBJECTIVE: This patient is an 89yof from [facility] with hx of diastolic CHF, a-fib (on Eliq uis), CKD, breast cancer s/p mastectomy, myelodysplasia, IDDM type 2, hypothyroidism, HLD, CVA, and GERD who presented with b/l leg swelling and nausea for weeks and back pain. Patient feels better but unable to eat since feels burping alot after eating. OBJECTIVE: Vital Signs Temperature 98.4 F 09/25/19 08:42 Pulse Rate 89 09/25/19 08:42 Respiratory Rate 20 09/25/19 09:00 Blood Pressure 120/65 09/25/19 08:42 O2 Sat by Pulse Oximetry (%) 93 L 09/25/19 09:00 PE:per resident's note CBCD WBC 16.7 K/mm3 (4.0-10.0) H 09/25/19 05:51 RBC 2.40 M/mm3 (3.60-5.2) L 09/25/19 05:51 Hgb 7.2 GM/dL (10.7-15.3) L 09/25/19 05:51 Hct 22.3 % (32.4-45.2) L 09/25/19 05:51 MCV 92.9 fl (80-96) 09/25/19 05:51 MCHC 32.2 g/dl (32.0-36.0) 09/25/19 05:51 RDW 20.0 % (11.6-15.6) H 09/25/19 05:51 Plt Count 183 K/MM3 (134-434) 09/25/19 05:51 MPV 8.6 fl (7.5-11.1) 09/25/19 05:51 CMP Sodium 128 mmol/L (136-145) L 09/25/19 05:51 Potassium 3.6 mmol/L (3.5-5.1) 09/25/19 05:51 Chloride 90 mmol/L (98-107) L 09/25/19 05:51 Carbon Dioxide 27 mmol/L (21-32) 09/25/19 05:51 Anion Gap 12 MMOL/L (8-16) 09/25/19 05:51 BUN 103.7 mg/dL (7-18) H 09/25/19 05:51 Creatinine 3.3 mg/dL (0.55-1.3) H 09/25/19 05:51 Random Glucose 107 mg/dL (74-106) H 09/25/19 05:51 Calcium 7.2 mg/dL (8.5-10.1) L 09/25/19 05:51 Total Bilirubin 0.3 mg/dL (0.2-1) 09/25/19 05:51 AST 24 U/L (15-37) 09/25/19 05:51 ALT 16 U/L (13-61) 09/25/19 05:51 Alkaline Phosphatase 295 U/L (45-117) H 09/25/19 05:51 Total Protein 7.0 g/dl (6.4-8.2) 09/25/19 05:51 Albumin 2.6 g/dl (3.4-5.0) L 09/25/19 05:51 CARDIAC ENZYMES Troponin I < 0.02 ng/ml (0.00-0.05) 09/24/19 16:49 Current Medications Generic Name Dose Route Start Last Admin Trade Name Meena PRN Reason Stop Dose Admin Apixaban 2.5 mg 09/24/19 23:00 09/25/19 00:19 Eliquis - PO 2.5 mg BID AMRIT Administration Furosemide 80 mg 09/25/19 23:00 Lasix Injection - IVPUSH 09/25/19 23:01 ONCE ONE Ceftriaxone Sodium 1 gm/ 50 mls @ 100 mls/hr 09/25/19 10:00 Dextrose IVPB DAILY [facility] Insulin Aspart 1 vial 09/25/19 07:00 09/25/19 06:11 Novolog Vial Sliding Scale - SQ Not Given ACHS [facility] Protocol Letrozole 2.5 mg 09/25/19 10:00 Femara - PO DAILY [facility] Levothyroxine Sodium 100 mcg 09/25/19 07:00 09/25/19 06:12 Synthroid - PO 100 mcg ACBK [facility] Administration Miscellaneous 1 each 09/24/19 22:00 09/25/19 00:19 Lidoderm Patch Removal MC Not Given DAILY@2200 [facility] Oxycodone HCl 5 mg 09/24/19 22:55 09/25/19 00:15 Roxicodone - PO 5 mg Q6H PRN Administration PAIN LEVEL 7 - 10 Polyethylene Glycol 17 gm 09/24/19 23:00 09/25/19 00:25 Miralax (For Daily Use) - PO Not Given BID [facility] Home Medications Medication Instructions Recorded Calcium Carbonate/Vitamin D3 1 each PO DAILY 06/23/18 [Calcium 500-Vit D3 400 Tablet] Carvedilol [Coreg -] 25 mg PO BID 06/23/18 Polyethylene Glycol 3350 [Miralax 17 gm PO DAILY PRN bottle 04/27/19 119 gm Btl -] Amlodipine Besylate [Norvasc -] 5 mg PO DAILY 08/12/19 Apixaban [Eliquis] 2.5 mg PO BID 08/12/19 Furosemide [Lasix -] 80 mg PO BID 08/12/19 Isosorbide Mononitrate [Imdur -] 60 mg PO DAILY 08/12/19 Sitagliptin Phosphate [Januvia] 25 mg PO DAILY 08/12/19 hydrALAZINE HCL [Apresoline -] 10 mg PO TID 08/12/19 Insulin Glargine,Hum.rec.anlog 25 unit SQ DAILY 09/24/19 [Lantus] Insulin Lispro [Humalog] 100 unit SQ PRN 09/24/19 Letrozole [Femara] 2.5 mg PO DAILY 09/24/19 Omeprazole 20 mg PO DAILY 09/24/19 Ondansetron [Zofran *Odt*] 4 mg SL Q4H PRN 09/24/19 Oxycodone HCl/Acetaminophen 1 tab PO BID 09/24/19 [Percocet 5-325 mg Tablet] Pantoprazole Sodium [Protonix] 40 mg PO DAILY 09/24/19 Simethicone 125 mg PO Q4H PRN 09/24/19 Urine Test Results Urine Color Yellow 09/24/19 20:45 Urine Appearance Turbid 09/24/19 20:45 Urine pH 5.5 (5.0-8.0) 09/24/19 20:45 Ur Specific [place] 1.015 (1.010-1.035) 09/24/19 20:45 Urine Protein 3+ (NEGATIVE) H 09/24/19 20:45 Urine Glucose (UA) Negative (NEGATIVE) 09/24/19 20:45 Urine Ketones Negative (NEGATIVE) 09/24/19 20:45 Urine Blood Negative (NEGATIVE) 09/24/19 20:45 Urine Nitrite Negative (NEGATIVE) 09/24/19 20:45 Urine Bilirubin Negative (NEGATIVE) 09/24/19 20:45 Ur Leukocyte Esterase 2+ (NEGATIVE) H 09/24/19 20:45 CT L-Spine: Mod to marked b/l L4-L5 degenerative facet arthropathy, mod to marked L2-L3, marked L3-L4, marked L4-L5 degenerative central canal stenosis, multilevel b/l foraminal stenoses are noted. No CT evidence of fx or bony neoplastic disease. CTAP: 4 cm L hepatic lobe hypodense lesion sugg of metastatic neoplastic dz. Possible add'l R hepatic lobe lesions are also seen. 2.[address] noted. Several mildly enlarged RP LN seen. Colonic diverticulosis w/o evid of acute diverticulitis. B/l adrenal nodules seen without any gross interval change compared to chest CT on 04/09/19. Small L inguinal hernia containing fat and very short segment of nondilated sigmoid colon loop. CXR: enlarged cardiac silhouette, no pleural effusion EKG: Afib, HR 84, LAD, LVH, QTc 484 ms ASSESSMENT/PLAN: This patient is an 89yof from [facility] with pmhx of diastolic CHF, a-fib (on Eliquis), CKD, breast cancer s/p mastectomy, myelodysplasia, IDDM type 2, hypothyroidism, HLD, CVA, and GERD presents with b/l leg swelling , nausea for weeks and back pain for several days admitted for acute diastolic CHF exacerbat ion. #Acute on Chronic Diastolic CHF Exacerbation; Initial BNP 19k, b/l LE pitting edema s/p Lasix 80mg IV , Daily weights, I/Os, fluid restriction BNP # Prolonged Qtc: 484 monitor # Hepatic 4cm left hepatic lobe hypodense lesion cannt r/o metastatic Dz. oncology consult #Acute Hyponatremia: likely due to fluid overload. Initial 127 --> 128, will place her on lasix IV #MAURICE on CKD: monitor, will give lasix as prn, nephro on the case #UTI: on IV Ceftriaxone 1gm daily , ucx is pending , ID consulted #Anemia; likely multi-factorial in setting of CKD, myelodysplasia, r/o GI bleed. s/p 1 dose of IV Venofer -Hb 7.4 --> 7.2 (was 8.3 s/p 3U pRBCs last admission 08/24) #New 4 cm L Hepatic Lobe lesion; in setting of hx of breast cancer and myelodysplasia, r/o metastatic liver dz, oncology consulted dr. Estrada #Acute generalized abdominal pain: possible due to new liver mets. vs constipation will hold off on pain meds since can exacerbate the constipation #Hypothyroidism; Cont home meds: 100 DVT Px: Eliquis 2.5 BID FULL CODE
[2019-09-25] MEDS ORDERED: CEFTRIAXONE 1,000 MG in DEXTROSE 5%-WATER - 50 ML IVPB SCH (10:00)
[2019-09-25] MEDS: CEFTRIAXONE 1 GM in DEXTROSE 5%-WATER - 50 ML IVPB SCH (10:11)
[2019-09-25] MEDS: LETROZOLE 2.5 MG TABLET (FP) PO SCH (10:11)
--- NOTE | 2019-09-25 11:36 | CON.NEP ---
Consult Consult Specialty:: Nephrology Referred by:: Jarrod Reason for Consultation:: crow on ckd - History of Present Illness Chief Complaint: crow, hyponatremia History of Present Illness: 89y/o F hx of Afib (on eloquis) , HTN, CVA, CHF, chronic back pain, T2DM, hypothyroisdism presents to the ED from [place] for worsening edema, crow and uncontrolled back pain. ROS sob on exertion, and uses oxygen prn at baseline (2-3L). no worsening sob. no chest pain, fevers, cough, abdominal tenderness. 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: CVA, Peripheral Neuropathy, Other (guillain barre syndrome, hx bacterial meningitis 1953) Cardio/Vascular: Yes: HTN Gastrointestinal: Yes: GERD Renal/: Yes: Renal Failure Endocrine: Yes: Diabetes Mellitus - Alcohol/Substance Use Hx Alcohol Use: No - Smoking History Smoking history: Never smoked Have you smoked in the past 12 months: No Aproximately how many cigarettes per day: 0 - Social History History of Recent Travel: No Home Medications - Allergies Allergies/Adverse Reactions: Allergies Allergy/AdvReac Type Severity Reaction Status Date / Time NSAIDS (Non-Steroidal Allergy Severe Difficulty Verified 04/08/19 22:55 Anti-Inflamma Breathing ibuprofen Allergy Intermediate Rash Verified 04/08/19 22:55 meloxicam [From Mobic] Allergy Intermediate Rash Verified 04/08/19 22:55 rosiglitazone maleate Allergy Verified 04/08/19 22:55 [From Avandia] albuterol AdvReac Intermediate Elevated Verified 04/08/19 22:55 Blood Pressure epinephrine AdvReac Intermediate Elevated Verified 04/08/19 22:55 Blood Pressure oxycodone HCl [From Percodan] AdvReac Intermediate Elevated Verified 04/08/19 22:55 Blood Pressure oxycodone terephthalate AdvReac Intermediate Elevated Verified 04/08/19 22:55 [From Percodan] Blood Pressure flu shot AdvReac Severe GILLAIN Uncoded 04/08/19 22:55 BARRE SYNDROME - Home Medications Home Medications: Ambulatory Orders Calcium Carbonate/Vitamin D3 [Calcium 500-Vit D3 400 Tablet] 1 each PO DAILY 06/23/18 Carvedilol [Coreg -] 25 mg PO BID 06/23/18 Polyethylene Glycol 3350 [Miralax 119 gm Btl -] 17 gm PO DAILY PRN bottle 04/27/19 Amlodipine Besylate [Norvasc -] 5 mg PO DAILY 08/12/19 Apixaban [Eliquis] 2.5 mg PO BID 08/12/19 Furosemide [Lasix -] 80 mg PO BID 08/12/19 Isosorbide Mononitrate [Imdur -] 60 mg PO DAILY 08/12/19 Sitagliptin Phosphate [Januvia] 25 mg PO DAILY 08/12/19 hydrALAZINE HCL [Apresoline -] 10 mg PO TID 08/12/19 Insulin Glargine,Hum.rec.anlog [Lantus] 25 unit SQ DAILY 09/24/19 Insulin Lispro [Humalog] 100 unit SQ PRN 09/24/19 Letrozole [Femara] 2.5 mg PO DAILY 09/24/19 Omeprazole 20 mg PO DAILY 09/24/19 Ondansetron [Zofran *Odt*] 4 mg SL Q4H PRN 09/24/19 Oxycodone HCl/Acetaminophen [Percocet 5-325 mg Tablet] 1 tab PO BID 09/24/19 Pantoprazole Sodium [Protonix] 40 mg PO DAILY 09/24/19 Simethicone 125 mg PO Q4H PRN 09/24/19 Nephrology Consult - Height Height: 5 ft 8.4 in - Weight Weight: 216 lb - BMI Body Mass Index (BMI): 32.4 - Lab Results CBC,BMP: CBC, BMP 09/25/19 05:51 09/25/19 05:51 Anion Gap: Anion Gap Anion Gap 12 MMOL/L (8-16) 09/25/19 05:51 - Physical Examination Vital Signs: Vital Signs Temperature 98.4 F 09/25/19 08:42 Pulse Rate 89 09/25/19 08:42 Respiratory Rate 20 09/25/19 09:00 Blood Pressure 120/65 09/25/19 08:42 O2 Sat by Pulse Oximetry (%) 93 L 09/25/19 09:00 Assessment/Plan ASSESSMENT/PLAN: This patient is an 89yof from [facility] with pmhx of diastolic CHF, a-fib (on Eliquis), CKD, breast cancer s/p mastectomy, myelodysplasia, IDDM type 2, hypothyroidism, HLD, CVA, and GERD presents with b/l leg swelling , nausea for weeks and back pain for several days admitted for acute diastolic CHF exacerba tion. #Acute on Chronic Diastolic CHF Exacerbation; Initial BNP 19k, b/l LE pitting edema s/p Lasix 80mg IV , Daily weights, I/Os, fluid restriction BNP #Acute Hyponatremia: likely due to fluid overload. Initial 127 --> 128, will place her on lasix IV Underlying chronic hyponatremia 2/2 CHZ Acute on chronic Renal insufficieny 2/2 heart failure, decreased cardiac output and renal perfusion # Prolonged Qtc: 484 monitor #UTI: on IV Ceftriaxone 1gm daily , ucx is pending , ID consulted #Anemia; likely multi-factorial in setting of CKD, myelodysplasia, r/o GI bleed. s/p 1 dose of IV Venofer -Hb 7.4 --> 7.2 (was 8.3 s/p 3U pRBCs last admission 08/24) #New 4 cm L Hepatic Lobe lesion; in setting of hx of breast cancer and myelodysplasia, r/o metastatic liver dz, oncology consulted dr. Estrada #Acute generalized abdominal pain: possible due to new liver mets. vs constipat ion will hold off on pain meds since can exacerbate the constipation #Hypothyroidism; Cont home meds: 100 DVT Px: Eliquis 2.5 BID FULL CODE
[2019-09-25] MEDS ORDERED: INSULIN (NOVOLOG) ASPART 100 UNITS/ML 10ML VIAL ONE (11:40)
[2019-09-25 14:09] LABS: ANISOCYTOSIS 1+; PLATELET ESTIMATE ADEQUATE
[2019-09-25] MEDS ORDERED: FUROSEMIDE 40 MG/4 ML INJECTABLE VIAL IVPUSH ONE ×2 (16:04→23:00)
--- NOTE | 2019-09-25 17:51 | CON.HO ---
Consult Consult Specialty:: Hematology Reason for Consultation:: Liver mass. Hx Breast CA and MDS - History of Present Illness History of Present Illness: 89 y/o lady from [facility] with diastolic CHF, a-fib (on Eliquis), CKD, breast cancer s/p mastectomy, myelodysplasia (follows with Dr. Estrada) IDDM type 2, hypothyroidism, HLD, CVA, and GERD who presents with b/l leg swelling and nausea for "weeks" and back pain for "several days." Pt complained of constipation and increased urination after lasix. A CT of the abdomen revealed a 4 cm L hepatic lobe hypodense lesion suspicious for metastatic disease as well as a 2.[address] enlargement and enlarged retroperitoneal nodes. 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: CVA, Peripheral Neuropathy, Other (guillain barre syndrome, hx bacterial meningitis 1953) Cardio/Vascular: Yes: HTN Gastrointestinal: Yes: GERD Renal/: Yes: Renal Failure Endocrine: Yes: Diabetes Mellitus - Alcohol/Substance Use Hx Alcohol Use: No - Smoking History Smoking history: Never smoked Have you smoked in the past 12 months: No Aproximately how many cigarettes per day: 0 - Social History History of Recent Travel: No Home Medications - Allergies Allergies/Adverse Reactions: Allergies Allergy/AdvReac Type Severity Reaction Status Date / Time NSAIDS (Non-Steroidal Allergy Severe Difficulty Verified 04/08/19 22:55 Anti-Inflamma Breathing ibuprofen Allergy Intermediate Rash Verified 04/08/19 22:55 meloxicam [From Mobic] Allergy Intermediate Rash Verified 04/08/19 22:55 rosiglitazone maleate Allergy Verified 04/08/19 22:55 [From Avandia] albuterol AdvReac Intermediate Elevated Verified 04/08/19 22:55 Blood Pressure epinephrine AdvReac Intermediate Elevated Verified 04/08/19 22:55 Blood Pressure oxycodone HCl [From Percodan] AdvReac Intermediate Elevated Verified 04/08/19 22:55 Blood Pressure oxycodone terephthalate AdvReac Intermediate Elevated Verified 04/08/19 22:55 [From Percodan] Blood Pressure flu shot AdvReac Severe GILLAIN Uncoded 04/08/19 22:55 BARRE SYNDROME - Home Medications Home Medications: Ambulatory Orders Calcium Carbonate/Vitamin D3 [Calcium 500-Vit D3 400 Tablet] 1 each PO BID 0 06/23/18 Carvedilol [Coreg -] 25 mg PO BID 06/23/18 Polyethylene Glycol 3350 [Miralax 119 gm Btl -] 17 gm PO DAILY PRN bottle 04/27/19 Amlodipine Besylate [Norvasc -] 5 mg PO DAILY 08/12/19 Apixaban [Eliquis] 2.5 mg PO BID 08/12/19 Furosemide [Lasix -] 80 mg PO BID 08/12/19 Isosorbide Mononitrate [Imdur -] 60 mg PO DAILY 08/12/19 Sitagliptin Phosphate [Januvia] 25 mg PO DAILY 08/12/19 hydrALAZINE HCL [Apresoline -] 10 mg PO TID 08/12/19 Insulin Glargine,Hum.rec.anlog [Lantus] 25 unit SQ DAILY 09/24/19 Insulin Lispro [Humalog] 100 unit SQ PRN 09/24/19 Letrozole [Femara] 2.5 mg PO DAILY 09/24/19 Omeprazole 20 mg PO DAILY 09/24/19 Pantoprazole Sodium [Protonix] 40 mg PO DAILY 09/24/19 Simethicone 125 mg PO Q4H PRN 09/24/19 Multivitamin [One-Daily Multi-Vitamin] 1 each PO DAILY 09/25/19 Ondansetron [Zofran -] 4 mg PO Q4H PRN 09/25/19 Oxycodone HCl/Acetaminophen [Percocet 5-325 mg Tablet] 1 tab PO Q12H PRN 09/25/19 Physical Exam Vital Signs: Vital Signs Temperature 97.5 F L 09/25/19 14:00 Pulse Rate 91 H 09/25/19 14:00 Respiratory Rate 09/25/19 09:00 Blood Pressure 136/59 L 09/25/19 14:00 O2 Sat by Pulse Oximetry (%) 93 L 09/25/19 09:00 Constitutional: Yes: Well Nourished, No Distress, Calm Eyes: Yes: WNL, Conjunctiva Clear, EOM Intact HENT: Yes: Atraumatic Neck: Yes: WNL, Supple Cardiovascular: Yes: WNL, Regular Rate and Rhythm Respiratory: Yes: WNL, Regular Gastrointestinal: Yes: WNL Musculoskeletal: Yes: WNL Extremities: Yes: WNL Labs: CBC, BMP 09/25/19 05:51 09/25/19 05:51 Assessment/Plan 89 y/o lady from [facility] with diastolic CHF, a-fib (on Eliquis), CKD, breast cancer s/p mastectomy, myelodysplasia (follows with Dr. Estrada) IDDM type 2, hypothyroidism, HLD, CVA, and GERD who presents with b/l leg swelling and nausea for "weeks" and back pain for "several days." Pt complained of constipation and increased urination after lasix. A CT of the abdomen revealed a 4 cm L hepatic lobe hypodense lesion suspicious for metastatic disease as well as a 2.[address] enlargement and enlarged retroperitoneal nodes. Very elevated BNP and edematous Recommend: 1) If aligned with patient's family wishes consider obtaining a liver biopsy with IR for diagnosis 2) Peripheral Blood Flow Cytometry (and consider BMBx) to r/o MDS transformation to AML, again this should be aligned with patient's and family goals of care, given advanced age and multiple comorbidities. 3) Dr. Estrada or team will comment as well as they have been taking care of her for a long time 4) Thank you for this consultation
--- NOTE | 2019-09-25 17:51 | EKG ---
Test Reason : Blood Pressure : / mmHG Vent. Rate : 084 BPM Atrial Rate : 104 BPM P-R Int : 000 ms QRS Dur : 116 ms QT Int : 410 ms P-R-T Axes : 000 -42 022 degrees QTc Int : 484 ms POOR DATA QUALITY, INTERPRETATION MAY BE ADVERSELY AFFECTED ATRIAL FIBRILLATION LEFT AXIS DEVIATION LEFT VENTRICULAR HYPERTROPHY WITH QRS WIDENING ABNORMAL ECG WHEN COMPARED WITH ECG OF 12-AUG-2019 08:42, ATRIAL FIBRILLATION HAS REPLACED SINUS RHYTHM NONSPECIFIC T WAVE ABNORMALITY NO LONGER EVIDENT IN LATERAL LEADS Confirmed by MD Alonzo, Edy ([id number]) on 09/25/2019 5:50:56 PM Referred By: Confirmed By:Edy Rosado MD
[2019-09-25] MEDS: SIMETHICONE 80 MG TAB.CHEW (FP) PO PRN (18:07)
--- NOTE | 2019-09-25 21:09 | PN ---
Progress Note (short form) - Note Progress Note: ID CONSULT DICTATED CHF UTI ACUTE ON CHRONIC RENAL FAILURE LEUKOCYTOSIS ?MDS AWAIT C/S CONTINUE EMPIRIC CEFTRIAXONE
[2019-09-25] MEDS: DOCUSATE SODIUM 100 MG CAPSULE (FP) PO SCH (22:04)
[2019-09-26] MEDS: INSULIN SLIDING SCALE (NOVOLOG) 1 VIAL SQ SCH ×4 (06:11→21:36)
[2019-09-26] MEDS: LEVOTHYROXINE NA 100 MCG TABLET (FP) PO SCH (06:13)
[2019-09-26 07:44] LABS: ALBUMIN 2.6 g/dl (3.4-5.0); BILIRUBIN,TOTAL 0.4 mg/dL (0.2-1); CALCIUM 8.3 mg/dL (8.5-10.1); CREATININE 3.1 mg/dL (0.55-1.3); POTASSIUM 3.6 mmol/L (3.5-5.1); TOT PROT 7.2 g/dl (6.4-8.2)
[2019-09-26] MEDS ORDERED: DEXTROSE 5%-WATER - 50 ML IVPB ONE (08:21)
[2019-09-26] MEDS ORDERED: cefTRIAXone SODIUM 1 GM VIAL ONE (08:21)
[2019-09-26] MEDS: LETROZOLE 2.5 MG TABLET (FP) PO SCH (09:27)
[2019-09-26] MEDS: POLYETHYLENE GLYCOL 3350 119 GM BTL PO SCH ×2 (09:27→21:35)
[2019-09-26] MEDS: APIXABAN 2.5 MG TABLET PO SCH ×2 (09:27→22:22)
[2019-09-26] MEDS: PANTOPRAZOLE 40 MG TABLET PO SCH (09:27)
[2019-09-26] MEDS: CEFTRIAXONE 1 GM in DEXTROSE 5%-WATER - 50 ML IVPB SCH (09:28)
--- NOTE | 2019-09-26 09:46 | CONS ---
INFECTIOUS DISEASE CONSULTATION DATE OF CONSULTATION: DATE OF DICTATION: 09/25/2019 HISTORY: The patient is an 89-year-old female who is evaluated for urinary tract infection. She was recently hospitalized at [facility] from August 11 through August 18 with congestive heart failure. She is now admitted from the half-way with worsening lower extremity edema, shortness of breath, onums-in-woowaji renal failure. She was admitted to the hospital on September 24, 2019. Her course has been complicated by pyuria. Patient has had some difficulty voiding and had refused attempts at straight catheterization. She did report some dysuria at times. No complaints of hematuria. No complaints of suprapubic or flank pain. Recent urine cultures have been positive for enterococcus. PAST MEDICAL HISTORY: Positive for breast cancer, congestive heart failure, hypothyroidism, chronic kidney disease, myelodysplastic syndrome, hypertension, stroke, congestive heart failure. ALLERGIES: To multiple medications including NSAIDs, AVANDIA, ALBUTEROL, EPINEPHRINE, OXYCODONE. SOCIAL HISTORY: [facility] in a jail facility. No active tobacco or alcohol use. SYSTEMS REVIEW: Neurologic: No loss of consciousness, seizure activity, focal weakness. Cardiac: Negative chest pain or palpitations. Respiratory: Negative cough or sputum production. Gastrointestinal: Negative vomiting or diarrhea. Genitourinary: As per HPI. LABORATORY DATA: White count 16.7, hematocrit 22.3, platelets 183. Creatinine 3.3. Urine analysis 1325 white cells. Cultures pending. PHYSICAL EXAMINATION: General: She is awake and alert. She is an elderly female. Vital Signs: Stable, afebrile. HEENT: Sclerae are anicteric. Heart: Sounds S1, S2. Lungs: Clear. Abdomen: Soft. No suprapubic or flank tenderness. Extremities: Positive for edema. IMPRESSION: 1. Decompensated congestive heart failure. 2. Urinary tract infection. 3. Ziztb-de-fouhayl renal failure. Await cultures. Continue empiric ceftriaxone pending culture results. Will follow. Thank you for the kind referral. OLAF HYMAN M.D. ADELFO/[id number]
--- NOTE | 2019-09-26 10:01 | PN ---
Physical Exam: SUBJECTIVE: Patient seen and examined at bedside. Pt states she was uncomfortable overnight due to pain because she did not get her cream. Otherwi se, denies de anda/d, f/c, chest pain, sob, abd pain, urinary/bowel symptoms. States she has been urinating a lot. OBJECTIVE: Vital Signs Period Temp Pulse Resp BP Sys/Hernandez Pulse Ox Last 24 Hr 97.5 F-98.1 F 91-102 20-20 126-146/57-77 93 GENERAL: Pleasant, well-appearing female. NAD. AAOx3. Cooperative. HEENT: AT/NC. EOMI. MMM. NECK: Supple, no JVD noted. LUNGS: Bibasilar crackles noted. No wheezes. Symmetric chest rise, good inspiratory effort. HEART: Regular rate and rhythm, normal S1 and S2 without murmur. ABDOMEN: Obese. Soft, mildly tender to palpation. No rebound tenderness or guarding. Normoactive bowel sounds. MUSCULOSKELETAL: Normal range of motion at all joints. UPPER EXTREMITIES: Warm, well-perfused. B/l ecchymosis with bullae on left arm. No peripheral edema. LOWER EXTREMITIES: Warm, well-perfused. B/l +2 pitting edema to knee, edema b/l thighs non-pitting. NEUROLOGICAL: Cranial nerves II-XII intact. Normal speech. PSYCHIATRIC: Semi-cooperative. Good eye contact. SKIN: Warm, dry, normal turgor. CBCD WBC 16.7 K/mm3 (4.0-10.0) H 09/25/19 05:51 RBC 2.40 M/mm3 (3.60-5.2) L 09/25/19 05:51 Hgb 7.2 GM/dL (10.7-15.3) L 09/25/19 05:51 Hct 22.3 % (32.4-45.2) L 09/25/19 05:51 MCV 92.9 fl (80-96) 09/25/19 05:51 MCHC 32.2 g/dl (32.0-36.0) 09/25/19 05:51 RDW 20.0 % (11.6-15.6) H 09/25/19 05:51 Plt Count 183 K/MM3 (134-434) 09/25/19 05:51 MPV 8.6 fl (7.5-11.1) 09/25/19 05:51 CMP Sodium 129 mmol/L (136-145) L 09/26/19 05:52 Potassium 3.6 mmol/L (3.5-5.1) 09/26/19 05:52 Chloride 91 mmol/L (98-107) L 09/26/19 05:52 Carbon Dioxide 24 mmol/L (21-32) 09/26/19 05:52 Anion Gap 14 MMOL/L (8-16) 09/26/19 05:52 BUN 106.0 mg/dL (7-18) H* 09/26/19 05:52 Creatinine 3.1 mg/dL (0.55-1.3) H 09/26/19 05:52 Calcium 8.3 mg/dL (8.5-10.1) L 09/26/19 05:52 Total Bilirubin 0.4 mg/dL (0.2-1) 09/26/19 05:52 AST 25 U/L (15-37) 09/26/19 05:52 ALT 17 U/L (13-61) 09/26/19 05:52 Alkaline Phosphatase 366 U/L (45-117) H 09/26/19 05:52 Total Protein 7.2 g/dl (6.4-8.2) 09/26/19 05:52 Albumin 2.6 g/dl (3.4-5.0) L 09/26/19 05:52 Active Medications Generic Name Dose Route Start Last Admin Trade Name Moiseq PRN Reason Stop Dose Admin Apixaban 2.5 mg 09/24/19 23:00 09/26/19 09:27 Eliquis - PO Not Given BID AMRIT Docusate Sodium 300 mg 09/25/19 22:00 09/25/19 22:04 Colace - PO 300 mg HS AMRIT Administration Furosemide 40 mg 09/26/19 14:00 Lasix Injection - IVPUSH BID@0600,1400 [facility]IT Ceftriaxone Sodium 1 gm/ 50 mls @ 100 mls/hr 09/25/19 10:00 09/26/19 09:28 Dextrose IVPB 100 mls/hr DAILY AMRIT Administration Insulin Aspart 1 vial 09/25/19 07:00 09/26/19 06:11 Novolog Vial Sliding Scale - SQ 2 units ACHS AMRIT Administration Protocol Letrozole 2.5 mg 09/25/19 10:00 09/26/19 09:27 Femara - PO 2.5 mg DAILY [facility]RIT Administration Levothyroxine Sodium 100 mcg 09/25/19 07:00 09/26/19 06:13 Synthroid - PO 100 mcg ACBK [facility]IT Administration Miscellaneous 1 each 09/24/19 22:00 09/25/19 23:57 Lidoderm Patch Removal MC Not Given DAILY@2200 [facility] Non-Formulary Medication 2 gm 09/26/19 10:00 Diclofenac Sodium [Diclofenac Sodium] TP DAILY AMRIT Oxycodone HCl 5 mg 09/24/19 22:55 09/25/19 23:51 Roxicodone - PO 5 mg Q6H PRN Administration PAIN LEVEL 7 - 10 Pantoprazole Sodium 40 mg 09/26/19 10:00 09/26/19 09:27 Protonix - PO 40 mg DAILY [facility]RIT Administration Polyethylene Glycol 17 gm 09/24/19 23:00 09/26/19 09:27 Miralax (For Daily Use) - PO 17 gm BID AMRIT Administration Simethicone 80 mg 09/25/19 15:59 09/25/19 18:07 Mylicon - PO 80 mg Q4H PRN Administration GAS ASSESSMENT/PLAN: IMAGING: * CT L-Spine: Mod to marked b/l L4-L5 degenerative facet arthropathy, mod to marked L2-L3, marked L3-L4, marked L4-L5 degenerative central canal stenosis, multilevel b/l foraminal stenoses are noted. No CT evid of fx or bony neoplastic disease. * CTAP: 4 cm L hepatic lobe hypodense lesion sugg of metastatic neoplastic dz. Possible add'l R hepatic lobe lesions are also seen. 2.[address] noted. Several mildly enlarged RP LN seen. Colonic diverticulosis w/o evid of acute diverticulitis. B/l adrenal nodules seen w/o gross interval change compared to chest CT on 04/09/19. Small L inguinal hernia containing fat and very short segment of nondilated sigmoid colon loop. * EKG: Afib, HR 84, LAD, LVH, QTc 484 ms * Abd U/S: Hepatomegaly with fatty infiltration liver versus hepatocellular disease. 2 hypoechoic hepatic mass lesions with the largest in the right hepatic lobe measuring 5.7 cm and the one in the left hepatic lobe measuring 4 cm in maximum dimension, suspicious for malignancy Abnormal thickening of the gallbladder wall without gross evidence of gallstones. Correlate clinically for further evaluation. Nonvisualization of the pancreas and abdominal aorta Small amount of free fluid/ascites in the right upper abdomen ASSESSMENT/PLAN: 89F from [facility] with pmhx of diastolic CHF, a-fib (on Eliquis), CKD, breast cancer s/p mastectomy, myelodysplasia, IDDM type 2, hypothyroidism, HLD, CVA, and GERD presents with b/l leg swelling and nausea for "weeks" and back pain for several days admitted for acute CHF exacerbation. #Acute on Chronic Diastolic CHF Exacerbation; Initial BNP 19k, b/l LE pitting edema, bibasilar crackles -Given Lasix 40 mg IV total since admission -Daily weights, I/Os, fluid restriction -Cardio consulted; will continue Lasix 40 BID IV -Cont O2 NC, currently on 2L #Hyponatremia; likely 2/2 fluid overload. Initial 128 --> 129. Improving. -Fluid restriction -IV diuresis -Renal consulted -Uosm, Carmita, trend BMP #MAURICE on CKD; 3.3 --> 3.1 (baseline ~2.0-2.5 per EMR) -Lasix 40 IV x1 given in ED -Hold amlodipine, hydralazine to allow for pressure drop and prevent hypoperfusion from IV Lasix -serial BMPs to monitor Cr (baseline near 2) -Renal consulted -Avoid nephrotoxic agents #UTI; UA 3+ Pro, 2+ LE, WBC 1325 -Ceftriaxone 1gm QD (Day 3, started on 09/23), S/p 1 dose of Linezolid -UCx +LFGNB; await final results -ID consulted; cont with Ceftriaxone #Anemia; likely multi-factorial in setting of CKD, myelodysplasia, r/o GI bleed. s/p 1 dose of IV Venofer -Hb 7.4 --> 7.2 (was 8.3 s/p 3U pRBCs last admission 08/24) -During last admission, was seen by heme with recommendation for outpt workup -Tranfuse PRN to maintain Hgb >8 -FOBT pending #New 4 cm L Hepatic Lobe lesion; in setting of hx of breast cancer and myelodysplasia -Onc consulted (known to Dr. Estrada) - Onc to have discussion with pt regarding further work up and goals of care; if agreeable, consider liver biopsy with IR for diagnosis -Abd u/s results noted above #HTN; Stable. Cont home med: Carvedilol 25 BID. Per cardio, will cont rest of home BP meds #Generalized abdominal pain; 2/2 constipation vs. liver mass -Oxycodone 5mg Q6H PRN for pain, Diclofenac cream -Miralax 17 gm BID for constipation -QTc 484, try to avoid Zofran for nausea/vomiting #Back pain -no known fall -Oxycodone 5 PRN for pain -PT #Hypothyroidism; Cont home meds: Synthroid 100 #Prophylaxis DVT: Cont home Eliquis 2.5 BID FEN -Fluid restriction -monitor Na, Cl, and Cr -sodium/diabetic diet Dispo -Cont to monitor on tele -Pt has MOLST on file, however specified that she wants FULL CODE. Visit type - Emergency Visit Emergency Visit: Yes ED Registration Date: 09/24/19 Care time: The patient presented to the Emergency Department on the above date and was hospitalized for further evaluation of their emergent condition. - New Patient This patient is new to me today: No - Critical Care Critical Care patient: No ATTENDING PHYSICIAN STATEMENT I saw and evaluated the patient. I reviewed the resident's note and discussed the case with the resident. I agree with the resident's findings and plan as documented. SUBJECTIVE: OBJECTIVE: ASSESSMENT AND PLAN:
--- NOTE | 2019-09-26 11:21 | CON.CARD ---
Cardiology Consult (text) - Consultation Consultation Note: cc: le edema History of Present Illness: 89 year old woman with a history of Afib on Eliquis, HTN, hyperlipidemia, type 2 DM, CVAs, CKD with baseline creat of 2-2.5, hypothyroidism, GERD, breast cancer s/p surgery, myelodysplasia, hx of Guillain [place] syndrome, gait instability who presented to the ED with le edema. She c/o le edema, back pain, manjarrez. No cp palps dizzy rest sob loc pnd orthopnea. 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 Cardio/Vascular: Yes: HTN Gastrointestinal: Yes: GERD Endocrine: Yes: Diabetes Mellitus ALL: Noted in EMR. NSAIDS Family hx: not contributory to this presentation Social hx: Non smoker Home Medications Medication Instructions Recorded Calcium Carbonate/Vitamin D3 1 each PO BID 06/23/18 [Calcium 500-Vit D3 400 Tablet] Carvedilol [Coreg -] 25 mg PO BID 06/23/18 Polyethylene Glycol 3350 [Miralax 17 gm PO DAILY PRN bottle 04/27/19 119 gm Btl -] Amlodipine Besylate [Norvasc -] 5 mg PO DAILY 08/12/19 Apixaban [Eliquis] 2.5 mg PO BID 08/12/19 Furosemide [Lasix -] 80 mg PO BID 08/12/19 Isosorbide Mononitrate [Imdur -] 60 mg PO DAILY 08/12/19 Sitagliptin Phosphate [Januvia] 25 mg PO DAILY 08/12/19 hydrALAZINE HCL [Apresoline -] 10 mg PO TID 08/12/19 Insulin Glargine,Hum.rec.anlog 25 unit SQ DAILY 09/24/19 [Lantus] Insulin Lispro [Humalog] 100 unit SQ PRN 09/24/19 Letrozole [Femara] 2.5 mg PO DAILY 09/24/19 Omeprazole 20 mg PO DAILY 09/24/19 Pantoprazole Sodium [Protonix] 40 mg PO DAILY 09/24/19 Simethicone 125 mg PO Q4H PRN 09/24/19 Multivitamin [One-Daily 1 each PO DAILY 09/25/19 Multi-Vitamin] Ondansetron [Zofran -] 4 mg PO Q4H PRN 09/25/19 Oxycodone HCl/Acetaminophen 1 tab PO Q12H PRN 09/25/19 [Percocet 5-325 mg Tablet] Diclofenac Sodium 2 gm TP DAILY 09/26/19 Current Medications Generic Name Dose Route Start Last Admin Trade Name Freq PRN Reason Stop Dose Admin Apixaban 2.5 mg 09/24/19 23:00 09/26/19 09:27 Eliquis - PO Not Given BID AMRIT Docusate Sodium 300 mg 09/25/19 22:00 09/25/19 22:04 Colace - PO 300 mg HS AMRIT Administration Furosemide 40 mg 09/26/19 14:00 Lasix Injection - IVPUSH BID@0600,1400 AM[facility]IT Ceftriaxone Sodium 1 gm/ 50 mls @ 100 mls/hr 09/25/19 10:00 09/26/19 09:28 Dextrose IVPB 100 mls/hr DAILY AMRIT Administration Insulin Aspart 1 vial 09/25/19 07:00 09/26/19 06:11 Novolog Vial Sliding Scale - SQ 2 units ACHS AMRIT Administration Protocol Letrozole 2.5 mg 09/25/19 10:00 09/26/19 09:27 Femara - PO 2.5 mg DAILY AMRIT Administration Levothyroxine Sodium 100 mcg 09/25/19 07:00 09/26/19 06:13 Synthroid - PO 100 mcg ACBK AMRIT Administration Miscellaneous 1 each 09/24/19 22:00 09/25/19 23:57 Lidoderm Patch Removal MC Not Given DAILY@2200 [facility]IT Non-Formulary Medication 2 gm 09/26/19 10:00 Diclofenac Sodium [Diclofenac Sodium] TP DAILY AMRIT Oxycodone HCl 5 mg 09/24/19 22:55 09/25/19 23:51 Roxicodone - PO 5 mg Q6H PRN Administration PAIN LEVEL 7 - 10 Pantoprazole Sodium 40 mg 09/26/19 10:00 09/26/19 09:27 Protonix - PO 40 mg DAILY AMRIT Administration Polyethylene Glycol 17 gm 09/24/19 23:00 09/26/19 09:27 Miralax (For Daily Use) - PO 17 gm BID AMRIT Administration Simethicone 80 mg 09/25/19 15:59 09/25/19 18:07 Mylicon - PO 80 mg Q4H PRN Administration GAS Vital Signs Period Temp Pulse Resp BP Sys/Hernandez Pulse Ox Last 24 Hr 97.5 F-98.1 F 91-102 20-20 126-146/57-77 93-97 nad no jvd dec bs bases nl eff aao3 1+ le edema bl, no c/c irreg s1s2 no mrg abd nt nd pos bs no jaundice diaphoresis pos dp pt no carotid bruits Laboratory Last Values WBC 16.7 K/mm3 (4.0-10.0) H 09/25/19 05:51 RBC 2.40 M/mm3 (3.60-5.2) L 09/25/19 05:51 Hgb 7.2 GM/dL (10.7-15.3) L 09/25/19 05:51 Hct 22.3 % (32.4-45.2) L 09/25/19 05:51 MCV 92.9 fl (80-96) 09/25/19 05:51 MCH 29.9 pg (25.7-33.7) 09/25/19 05:51 MCHC 32.2 g/dl (32.0-36.0) 09/25/19 05:51 RDW 20.0 % (11.6-15.6) H 09/25/19 05:51 Plt Count 183 K/MM3 (134-434) 09/25/19 05:51 MPV 8.6 fl (7.5-11.1) 09/25/19 05:51 Absolute Neuts (auto) 12.3 K/mm3 (1.5-8.0) H 09/25/19 05:51 Total Counted 100 09/25/19 05:51 Neutrophils % 73.8 % (42.8-82.8) 09/25/19 05:51 Neutrophils % (Manual) 44.0 % (42.8-82.8) 09/25/19 05:51 Band Neutrophils % 7.0 % 09/25/19 05:51 Lymphocytes % 5.9 % (8-40) L D 09/25/19 05:51 Lymphocytes % (Manual) 20.0 % (8-40) D 09/25/19 05:51 Monocytes % 13.4 % (3.8-10.2) H 09/25/19 05:51 Monocytes % (Manual) 12 % (3.8-10.2) H 09/25/19 05:51 Eosinophils % 5.9 % (0-4.5) H 09/25/19 05:51 Eosinophils % (Manual) 9.0 % (0-4.5) H D 09/25/19 05:51 Basophils % 1.0 % (0-2.0) 09/25/19 05:51 Myelocytes % (Man) 2 % (0-2) 09/25/19 05:51 Nucleated RBC % 0 % (0-0) 09/25/19 05:51 Metamyelocytes 6 % (0-2) H D 09/25/19 05:51 Hypochromia 1+ 09/25/19 05:51 Platelet Estimate Adequate 09/25/19 05:51 Platelet Comment No clumping noted 09/24/19 16:49 Polychromasia 1+ 09/24/19 16:49 Anisocytosis 1+ 09/25/19 05:51 Microcytosis 1+ 09/24/19 16:49 PT with INR 20.10 SEC (9.7-13.0) H 09/24/19 16:49 INR 1.69 (0.83-1.09) H 09/24/19 16:49 PTT (Actin FS) 30.4 SECONDS (25.2-36.5) 09/24/19 16:49 Sodium 129 mmol/L (136-145) L 09/26/19 05:52 Potassium 3.6 mmol/L (3.5-5.1) 09/26/19 05:52 Chloride 91 mmol/L (98-107) L 09/26/19 05:52 Carbon Dioxide 24 mmol/L (21-32) 09/26/19 05:52 Anion Gap 14 MMOL/L (8-16) 09/26/19 05:52 BUN 106.0 mg/dL (7-18) H* 09/26/19 05:52 Creatinine 3.1 mg/dL (0.55-1.3) H 09/26/19 05:52 Est GFR (CKD-EPI)AfAm 14.73 09/26/19 05:52 Est GFR (CKD-EPI)NonAf 12.71 09/26/19 05:52 POC Glucometer 166 UNITS (80-120) 09/26/19 05:06 Random Glucose 144 mg/dL (74-106) H 09/26/19 05:52 Serum Osmolality 305 mosm/kg (278-305) 09/26/19 05:52 Lactic Acid 1.0 mmol/L (0.4-2.0) 09/24/19 19:10 Calcium 8.3 mg/dL (8.5-10.1) L 09/26/19 05:52 Phosphorus 5.0 mg/dL (2.5-4.9) H 09/25/19 05:51 Magnesium 1.9 mg/dL (1.8-2.4) 09/25/19 05:51 Total Bilirubin 0.4 mg/dL (0.2-1) 09/26/19 05:52 AST 25 U/L (15-37) 09/26/19 05:52 ALT 17 U/L (13-61) 09/26/19 05:52 Alkaline Phosphatase 366 U/L (45-117) H 09/26/19 05:52 Troponin I < 0.02 ng/ml (0.00-0.05) 09/24/19 16:49 B-Natriuretic Peptide 81975.9 pg/ml (5-450) H 09/24/19 16:49 Total Protein 7.2 g/dl (6.4-8.2) 09/26/19 05:52 Albumin 2.6 g/dl (3.4-5.0) L 09/26/19 05:52 Urine Color Yellow 09/24/19 20:45 Urine Appearance Turbid 09/24/19 20:45 Urine pH 5.5 (5.0-8.0) 09/24/19 20:45 Ur Specific [place] 1.015 (1.010-1.035) 09/24/19 20:45 Urine Protein 3+ (NEGATIVE) H 09/24/19 20:45 Urine Glucose (UA) Negative (NEGATIVE) 09/24/19 20:45 Urine Ketones Negative (NEGATIVE) 09/24/19 20:45 Urine Blood Negative (NEGATIVE) 09/24/19 20:45 Urine Nitrite Negative (NEGATIVE) 09/24/19 20:45 Urine Bilirubin Negative (NEGATIVE) 09/24/19 20:45 Urine Urobilinogen 0.2 mg/dL (0.2-1.0) 09/24/19 20:45 Ur Leukocyte Esterase 2+ (NEGATIVE) H 09/24/19 20:45 Urine WBC (Auto) 1325 /uL (0-25.8) 09/24/19 20:45 Urine RBC (Auto) 25 /uL (0-23.9) 09/24/19 20:45 Urine Casts (Auto) 1 /uL (0-3.1) 09/24/19 20:45 U Epithel Cells (Auto) 6 /uL (0-25.1) 09/24/19 20:45 Urine Bacteria (Auto) >10,000 /uL (0-1359) 09/24/19 20:45 Urine Osmolality 287 mosm/kg (300-900) L 09/25/19 12:15 Ur Random Sodium 38 MMOL/L (40-220) L 09/25/19 12:15 cxr: chf ecg: afib, rate ok, no iscehmic changes tele: afib, rate ok echo 03/2019 nl LV function, mild MR, mild TR, PASP at least 49 mmHg IMP/REC: Acute diastolic heart failure exacerbation: - recent echo nl LV function - no signs acs - continue Lasix 40mg IV bid with daily weights and BMP to monitor lytes and renal fx (baseline creat is 2-2.5) - Supp O2 HTN: - will resume coreg - if bp stable, resume hydralazine and imdur next crow on CKD: - Baseline creat from last admission is 2-2.5, elevated now, likely cardiorenal, monitor with diuresis - renal consulting PAF: -cont coreg for rate control -cont eliquis low dose liver mass: -heme/onc following
[2019-09-26] MEDS: SIMETHICONE 80 MG TAB.CHEW (FP) PO PRN (13:16)
[2019-09-26] MEDS ORDERED: GLYCERIN 1 RECTAL SUPPOSITORY, ADULT RC ONE (14:00)
[2019-09-26] MEDS: FUROSEMIDE 40 MG/4 ML INJECTABLE VIAL IVPUSH SCH (14:14)
--- NOTE | 2019-09-26 14:59 | PN ---
Progress Note (short form) - Note Progress Note: #Acute on Chronic Diastolic CHF Exacerbation; #Acute Hyponatremia: Acute on chronic Renal insufficieny 2/2 heart failure, decreased cardiac output and renal perfusion # Prolonged Qtc: 484 monitor #UTI: on IV Ceftriaxone 1gm daily , ucx is pending , ID consulted #Anemia; likely multi-factorial in setting of CKD, myelodysplasia, r/o GI bleed. #New 4 cm L Hepatic Lobe lesion;, r/o metastatic breat to liver dz, #Acute generalized abdominal pain: #Hypothyroidism; DVT Px: Eliquis 2.5 BID a-fib (on Eliquis), CKD, breast cancer s/p mastectomy, myelodysplasia, DM type 2, hypothyroidism, HLD, CVA, and GERD presents with b/l leg swelling , nausea for weeks and back pain for several days admitted for acute diastolic CHF exacerbation. Active Medications Apixaban (Eliquis -) 2.5 mg PO BID [facility] Last Admin: 09/26/19 09:27 Dose: Not Given Documented by: Carvedilol (Coreg -) 25 mg PO BID [facility] Docusate Sodium (Colace -) 300 mg PO HS [facility] Last Admin: 09/25/19 22:04 Dose: 300 mg Documented by: Furosemide (Lasix Injection -) 40 mg IVPUSH BID@0600,1400 [facility] Last Admin: 09/26/19 14:14 Dose: 40 mg Documented by: Ceftriaxone Sodium 1 gm/ (Dextrose) 50 mls @ 100 mls/hr IVPB DAILY [facility] Last Admin: 09/26/19 09:28 Dose: 100 mls/hr Documented by: Insulin Aspart (Novolog Vial Sliding Scale -) 1 vial SQ ACHS [facility]; Protocol Last Admin: 09/26/19 12:28 Dose: Not Given Documented by: Letrozole (Femara -) 2.5 mg PO DAILY [facility] Last Admin: 09/26/19 09:27 Dose: 2.5 mg Documented by: Levothyroxine Sodium (Synthroid -) 100 mcg PO ACBK [facility] Last Admin: 09/26/19 06:13 Dose: 100 mcg Documented by: Miscellaneous (Lidoderm Patch Removal) 1 each MC DAILY@2200 [facility] Last Admin: 09/25/19 23:57 Dose: Not Given Documented by: Ptnt's Own Med ( Diclofenac Sodium [ Diclofenac Sodium] 2 Gm) 2 gm TP Q8H PRN PRN Reason: PAIN Oxycodone HCl (Roxicodone -) 5 mg PO Q6H PRN PRN Reason: PAIN LEVEL 7 - 10 Last Admin: 09/25/19 23:51 Dose: 5 mg Documented by: Pantoprazole Sodium (Protonix -) 40 mg PO DAILY [facility] Last Admin: 09/26/19 09:27 Dose: 40 mg Documented by: Polyethylene Glycol (Miralax (For Daily Use) -) 17 gm PO BID [facility] Last Admin: 09/26/19 09:27 Dose: 17 gm Documented by: Simethicone (Mylicon -) 80 mg PO Q4H PRN PRN Reason: GAS Last Admin: 09/26/19 13:16 Dose: 80 mg Documented by: Last Vital Signs Temp Pulse Resp BP Pulse Ox 97.6 F 95 H 20 148/95 97 09/26/19 09:00 09/26/19 09:00 09/26/19 09:00 09/26/19 09:00 09/26/19 09:00 CBC, BMP 09/25/19 05:51 09/26/19 05:52 alert in nad Lungs clear heart irreg Abd soft nontender ext no edema IMP- anasarca HF Chronic yponatremia Plan-
--- NOTE | 2019-09-26 16:24 | PN.HO ---
Progress Note (short form) - Note Progress Note: Pt seen. S: Constipation. O: Last Vital Signs Temp Pulse Resp BP Pulse Ox 98.2 F 87 20 140/85 97 09/26/19 15:53 09/26/19 15:53 09/26/19 15:53 09/26/19 15:53 09/26/19 09:00 Current Medications Generic Name Dose Route Start Last Admin Trade Name Freq PRN Reason Stop Dose Admin Apixaban 2.5 mg 09/24/19 23:00 09/26/19 09:27 Eliquis - PO Not Given BID [facility]IT Carvedilol 25 mg 09/26/19 11:28 Coreg - PO BID [facility] Docusate Sodium 300 mg 09/25/19 22:00 09/25/19 22:04 Colace - PO 300 mg HS [facility] Administration Furosemide 40 mg 09/26/19 14:00 09/26/19 14:14 Lasix Injection - IVPUSH 40 mg BID@0600,1400 [facility] Administration Ceftriaxone Sodium 1 gm/ 50 mls @ 100 mls/hr 09/25/19 10:00 09/26/19 09:28 Dextrose IVPB 100 mls/hr DAILY [facility] Administration Insulin Aspart 1 vial 09/25/19 07:00 09/26/19 12:28 Novolog Vial Sliding Scale - SQ Not Given ACHS [facility] Protocol Letrozole 2.5 mg 09/25/19 10:00 09/26/19 09:27 Femara - PO 2.5 mg DAILY [facility] Administration Levothyroxine Sodium 100 mcg 09/25/19 07:00 09/26/19 06:13 Synthroid - PO 100 mcg ACBK [facility] Administration Miscellaneous 1 each 09/24/19 22:00 09/25/19 23:57 Lidoderm Patch Removal MC Not Given DAILY@2200 [facility] Ptnt's Own Med ( 2 gm 09/26/19 14:13 Diclofenac Sodium [ TP Diclofenac Sodium] 2 Q8H PRN Gm) PAIN Oxycodone HCl 5 mg 09/24/19 22:55 09/25/19 23:51 Roxicodone - PO 5 mg Q6H PRN Administration PAIN LEVEL 7 - 10 Pantoprazole Sodium 40 mg 09/26/19 10:00 09/26/19 09:27 Protonix - PO 40 mg DAILY [facility] Administration Polyethylene Glycol 17 gm 09/24/19 23:00 06/21/20 09:27 Miralax (For Daily Use) - PO 17 gm BID AMRIT Administration Simethicone 80 mg 09/25/19 15:59 09/26/19 13:16 Mylicon - PO 80 mg Q4H PRN Administration GAS 09/25/19 05:51 09/26/19 05:52 89 y/o lady from [facility] with diastolic CHF, a-fib (on Eliquis), CKD, breast cancer s/p mastectomy, myelodysplasia (follows with Dr. Estrada) IDDM type 2, hypothyroidism, HLD, CVA, and GERD who presents with b/l leg swelling and nausea for "weeks" and back pain for "several days." Pt complained of constipation and increased urination after lasix. A CT of the abdomen revealed a 4 cm L hepatic lobe hypodense lesion suspicious for metastatic disease as well as a 2.[address] enlargement and enlarged retroperitoneal nodes. Very elevated BNP and edematous Recommend: 1) If aligned with patient's family wishes consider obtaining a liver biopsy wi th IR for diagnosis 2) Peripheral Blood Flow Cytometry (and consider BMBx) to r/o MDS transformation to AML, again this should be aligned with patient's and family goals of care, given advanced age and multiple comorbidities. 3) Dr. Estrada or team will comment as well as they have been taking care of her for a long time 4) Anemia, multifactorial. MDS. Renal insufficiency. R/O GI Bleed, stool guaiac. Obtain iron panel (had one dose venofer in prior admission). Hb target per Cardiology team in the setting of fluid overload and active diuresis.
[2019-09-26] MEDS ORDERED: GLYCERIN 1 RECTAL SUPPOSITORY, ADULT PR ONE (18:02)
--- NOTE | 2019-09-26 18:26 | PN ---
Teaching Attending Note Name of Resident: Gail Martinez ATTENDING PHYSICIAN STATEMENT I saw and evaluated the patient. I reviewed the resident's note and discussed the case with the resident. I agree with the resident's findings and plan as documented. SUBJECTIVE: Patient continues to dislike the hospital food. OBJECTIVE: Vital Signs Temperature 97.9 F 09/26/19 18:17 Pulse Rate 96 H 09/26/19 18:17 Respiratory Rate 20 09/26/19 18:17 Blood Pressure 117/85 09/26/19 18:17 O2 Sat by Pulse Oximetry (%) 97 09/26/19 09:00 PE;per resident's note CBCD WBC 16.7 K/mm3 (4.0-10.0) H 09/25/19 05:51 RBC 2.40 M/mm3 (3.60-5.2) L 09/25/19 05:51 Hgb 7.2 GM/dL (10.7-15.3) L 09/25/19 05:51 Hct 22.3 % (32.4-45.2) L 09/25/19 05:51 MCV 92.9 fl (80-96) 09/25/19 05:51 MCHC 32.2 g/dl (32.0-36.0) 09/25/19 05:51 RDW 20.0 % (11.6-15.6) H 09/25/19 05:51 Plt Count 183 K/MM3 (134-434) 09/25/19 05:51 MPV 8.6 fl (7.5-11.1) 09/25/19 05:51 CMP Sodium 129 mmol/L (136-145) L 09/26/19 05:52 Potassium 3.6 mmol/L (3.5-5.1) 09/26/19 05:52 Chloride 91 mmol/L (98-107) L 09/26/19 05:52 Carbon Dioxide 24 mmol/L (21-32) 09/26/19 05:52 Anion Gap 14 MMOL/L (8-16) 09/26/19 05:52 BUN 106.0 mg/dL (7-18) H* 09/26/19 05:52 Creatinine 3.1 mg/dL (0.55-1.3) H 09/26/19 05:52 Random Glucose 144 mg/dL (74-106) H 09/26/19 05:52 Calcium 8.3 mg/dL (8.5-10.1) L 09/26/19 05:52 Total Bilirubin 0.4 mg/dL (0.2-1) 09/26/19 05:52 AST 25 U/L (15-37) 09/26/19 05:52 ALT 17 U/L (13-61) 09/26/19 05:52 Alkaline Phosphatase 366 U/L (45-117) H 09/26/19 05:52 Total Protein 7.2 g/dl (6.4-8.2) 09/26/19 05:52 Albumin 2.6 g/dl (3.4-5.0) L 09/26/19 05:52 CARDIAC ENZYMES Troponin I < 0.02 ng/ml (0.00-0.05) 09/24/19 16:49 Current Medications Generic Name Dose Route Start Last Admin Trade Name Freq PRN Reason Stop Dose Admin Apixaban 2.5 mg 09/24/19 23:00 09/26/19 09:27 Eliquis - PO Not Given BID [facility] Carvedilol 25 mg 09/26/19 11:28 Coreg - PO BID [facility] Docusate Sodium 300 mg 09/25/19 22:00 09/25/19 22:04 Colace - PO 300 mg HS [facility] Administration Furosemide 40 mg 09/26/19 14:00 09/26/19 14:14 Lasix Injection - IVPUSH 40 mg BID@0600,1400 [facility] Administration Ceftriaxone Sodium 1 gm/ 50 mls @ 100 mls/hr 09/25/19 10:00 09/26/19 09:28 Dextrose IVPB 100 mls/hr DAILY [facility] Administration Insulin Aspart 1 vial 09/25/19 07:00 09/26/19 16:27 Novolog Vial Sliding Scale - SQ 2 units ACHS [facility] Administration Protocol Letrozole 2.5 mg 09/25/19 10:00 09/26/19 09:27 Femara - PO 2.5 mg DAILY [facility] Administration Levothyroxine Sodium 100 mcg 09/25/19 07:00 09/26/19 06:13 Synthroid - PO 100 mcg ACBK [facility] Administration Miscellaneous 1 each 09/24/19 22:00 09/25/19 23:57 Lidoderm Patch Removal MC Not Given DAILY@2200 [facility] Ptnt's Own Med ( 2 gm 09/26/19 14:13 Diclofenac Sodium [ TP Diclofenac Sodium] 2 Q8H PRN Gm) PAIN Oxycodone HCl 5 mg 09/24/19 22:55 09/25/19 23:51 Roxicodone - PO 5 mg Q6H PRN Administration PAIN LEVEL 7 - 10 Pantoprazole Sodium 40 mg 09/26/19 10:00 09/26/19 09:27 Protonix - PO 40 mg DAILY [facility] Administration Polyethylene Glycol 17 gm 09/24/19 23:00 09/26/19 09:27 Miralax (For Daily Use) - PO 17 gm BID [facility] Administration Simethicone 80 mg 09/25/19 15:59 09/26/19 13:16 Mylicon - PO 80 mg Q4H PRN Administration GAS Home Medications Medication Instructions Recorded Calcium Carbonate/Vitamin D3 1 each PO BID 06/23/18 [Calcium 500-Vit D3 400 Tablet] Carvedilol [Coreg -] 25 mg PO BID 06/23/18 Polyethylene Glycol 3350 [Miralax 17 gm PO DAILY PRN bottle 04/27/19 119 gm Btl -] Amlodipine Besylate [Norvasc -] 5 mg PO DAILY 08/12/19 Apixaban [Eliquis] 2.5 mg PO BID 08/12/19 Furosemide [Lasix -] 80 mg PO BID 08/12/19 Isosorbide Mononitrate [Imdur -] 60 mg PO DAILY 08/12/19 Sitagliptin Phosphate [Januvia] 25 mg PO DAILY 08/12/19 hydrALAZINE HCL [Apresoline -] 10 mg PO TID 08/12/19 Insulin Glargine,Hum.rec.anlog 25 unit SQ DAILY 09/24/19 [Lantus] Insulin Lispro [Humalog] 100 unit SQ PRN 09/24/19 Letrozole [Femara] 2.5 mg PO DAILY 09/24/19 Omeprazole 20 mg PO DAILY 09/24/19 Pantoprazole Sodium [Protonix] 40 mg PO DAILY 09/24/19 Simethicone 125 mg PO Q4H PRN 09/24/19 Multivitamin [One-Daily 1 each PO DAILY 09/25/19 Multi-Vitamin] Ondansetron [Zofran -] 4 mg PO Q4H PRN 09/25/19 Oxycodone HCl/Acetaminophen 1 tab PO Q12H PRN 09/25/19 [Percocet 5-325 mg Tablet] Diclofenac Sodium 2 gm TP DAILY 09/26/19 Microbiology 09/24/19 20:45 Urine - Urine Clean Catch Urine Culture - Preliminary Lactose Fermenting Neg Bacilli CT L-Spine: Mod to marked b/l L4-L5 degenerative facet arthropathy, mod to marked L2-L3, marked L3-L4, marked L4-L5 degenerative central canal stenosis, multilevel b/l foraminal stenoses are noted. No CT evidence of fx or bony neoplastic disease. CTAP: 4 cm L hepatic lobe hypodense lesion sugg of metastatic neoplastic dz. Possible add'l R hepatic lobe lesions are also seen. 2.[address] noted. Several mildly enlarged RP LN seen. Colonic diverticulosis w/o evid of acute diverticulitis. B/l adrenal nodules seen without any gross interval change compared to chest CT on 04/09/19. Small L inguinal hernia containing fat and very short segment of nondilated sigmoid colon loop. CXR: enlarged cardiac silhouette, no pleural effusion EKG: Afib, HR 84, LAD, LVH, QTc 484 ms ASSESSMENT/PLAN: This patient is an 89yof from [facility] with pmhx of diastolic CHF, a-fib (on Eliquis), CKD, breast cancer s/p mastectomy, myelodysplasia, IDDM type 2, hypothyroidism, HLD, CVA, and GERD presents with b/l leg swelling , nausea for weeks and back pain for several days admitted for acute diastolic CHF exacerbation. #Acute on Chronic Diastolic CHF Exacerbation; Initial BNP 19k, b/l LE pitting edema s/p Lasix 80mg IV , Daily weights, I/Os, fluid restriction to 1 liter with BNP 20K # Prolonged Qtc: 484 monitor # Hepatic 4cm left hepatic lobe hypodense lesion cannt r/o metastatic Dz. oncology consult #Acute Hyponatremia: likely due to fluid overload. Initial 127 --> 128-->129 today , on IV lasix 40mg BID #MAURICE on CKD: monitor, will give lasix as prn, nephro on the case ; cr: 3.4-->3.1 now #UTI: on IV Ceftriaxone 1gm daily , ucx is pending , ID consulted #Anemia; likely multi-factorial in setting of CKD, myelodysplasia, r/o GI bleed. s/p 1 dose of IV Venofer -Hb 7.4 --> 7.2 (was 8.3 s/p 3U pRBCs last admission 08/24) #New 4 cm L Hepatic Lobe lesion; in setting of hx of breast cancer and myelodysplasia, r/o metastatic liver dz, oncology consulted dr. Estrada #Acute generalized abdominal pain: possible due to new liver mets. vs constipation will hold off on pain meds since can exacerbate the constipation #Hypothyroidism; Cont home meds: 100 DVT Px: Eliquis 2.5 BID FULL CODE will call her oncologist in am and discuss liver Bx by IR follow th cx restrict fluid to 1liter per day
--- NOTE | 2019-09-26 18:38 | PN ---
Progress Note, Physician History of Present Illness: AWAKE OOB IN CHAIR NO COMPLAINTS DENIES DYSURIA NO C/O FEVER/CHILLS - Current Medication List Current Medications: Active Medications Apixaban (Eliquis -) 2.5 mg PO BID [facility] Last Admin: 09/26/19 09:27 Dose: Not Given Documented by: Carvedilol (Coreg -) 25 mg PO BID [facility] Docusate Sodium (Colace -) 300 mg PO HS [facility] Last Admin: 09/25/19 22:04 Dose: 300 mg Documented by: Furosemide (Lasix Injection -) 40 mg IVPUSH BID@0600,1400 [facility] Last Admin: 09/26/19 14:14 Dose: 40 mg Documented by: Ceftriaxone Sodium 1 gm/ (Dextrose) 50 mls @ 100 mls/hr IVPB DAILY [facility] Last Admin: 09/26/19 09:28 Dose: 100 mls/hr Documented by: Insulin Aspart (Novolog Vial Sliding Scale -) 1 vial SQ [facility]; Protocol Last Admin: 09/26/19 16:27 Dose: 2 units Documented by: Letrozole (Femara -) 2.5 mg PO DAILY [facility] Last Admin: 09/26/19 09:27 Dose: 2.5 mg Documented by: Levothyroxine Sodium (Synthroid -) 100 mcg PO ACBK [facility] Last Admin: 09/26/19 06:13 Dose: 100 mcg Documented by: Miscellaneous (Lidoderm Patch Removal) 1 each MC DAILY@2200 [facility] Last Admin: 09/25/19 23:57 Dose: Not Given Documented by: Ptnt's Own Med ( Diclofenac Sodium [ Diclofenac Sodium] 2 Gm) 2 gm TP Q8H PRN PRN Reason: PAIN Oxycodone HCl (Roxicodone -) 5 mg PO Q6H PRN PRN Reason: PAIN LEVEL 7 - 10 Last Admin: 09/25/19 23:51 Dose: 5 mg Documented by: Pantoprazole Sodium (Protonix -) 40 mg PO DAILY [facility] Last Admin: 09/26/19 09:27 Dose: 40 mg Documented by: Polyethylene Glycol (Miralax (For Daily Use) -) 17 gm PO BID [facility] Last Admin: 09/26/19 09:27 Dose: 17 gm Documented by: Simethicone (Mylicon -) 80 mg PO Q4H PRN PRN Reason: GAS Last Admin: 09/26/19 13:16 Dose: 80 mg Documented by: - Objective Vital Signs: Vital Signs Temperature 97.9 F 09/26/19 18:17 Pulse Rate 96 H 09/26/19 18:17 Respiratory Rate 20 09/26/19 18:17 Blood Pressure 117/85 09/26/19 18:17 O2 Sat by Pulse Oximetry (%) 97 09/26/19 09:00 Cardiovascular: Yes: Regular Rate and Rhythm, S1, S2 Respiratory: Yes: CTA Bilaterally Gastrointestinal: Yes: Normal Bowel Sounds, Soft Edema: Yes Labs: CBC, BMP 09/25/19 05:51 09/26/19 05:52 INR, PTT INR 1.69 (0.83-1.09) H 09/24/19 16:49 Assessment/Plan CHF UTI LEUKOCYTOSIS AZOTEMIA AWAIT C/S CONTINUE CEFTRIAXONE
[2019-09-26 20:39] LABS: HEMATOCRIT 24.6 % (32.4-45.2); HEMOGLOBIN 7.9 GM/dL (10.7-15.3); MCH 30.2 pg (25.7-33.7); MCHC 32.1 g/dl (32.0-36.0); MEAN CELL VOLUME 94.1 fl (80-96); MEAN PLT VOLUME 8.6 fl (7.5-11.1); PLATELET COUNT 197 K/MM3 (134-434); RBC 2.62 M/mm3 (3.60-5.2); RDW 19.9 % (11.6-15.6); WHITE BLOOD COUNT 19.2 K/mm3 (4.0-10.0)
[2019-09-26] MEDS: DOCUSATE SODIUM 100 MG CAPSULE (FP) PO SCH (21:34)
[2019-09-26] MEDS: LIDOCAINE PATCH REMOVAL MC SCH (21:35)
[2019-09-26] MEDS: CARVEDILOL 25 MG TABLET (FP) PO SCH (21:35)
[2019-09-26] MEDS ORDERED: CARVEDILOL 25 MG TABLET (FP) PO SCH (22:00)
[2019-09-27] MEDS: LEVOTHYROXINE NA 100 MCG TABLET (FP) PO SCH (06:16)
[2019-09-27] MEDS: FUROSEMIDE 40 MG/4 ML INJECTABLE VIAL IVPUSH SCH (06:16)
[2019-09-27] MEDS: INSULIN SLIDING SCALE (NOVOLOG) 1 VIAL SQ SCH ×4 (06:16→21:51)
[2019-09-27 07:48] LABS: HEMATOCRIT 22.1 % (32.4-45.2); HEMOGLOBIN 7.2 GM/dL (10.7-15.3); MCHC 32.6 g/dl (32.0-36.0); MEAN CELL VOLUME 91.8 fl (80-96); MEAN PLT VOLUME 8.1 fl (7.5-11.1); PLATELET COUNT 164 K/MM3 (134-434); RBC 2.41 M/mm3 (3.60-5.2); RDW 19.5 % (11.6-15.6); WHITE BLOOD COUNT 16.2 K/mm3 (4.0-10.0)
[2019-09-27 08:02] LABS: ALBUMIN 2.4 g/dl (3.4-5.0); BILIRUBIN,TOTAL 0.4 mg/dL (0.2-1); BLOOD UREA NITROGEN 102.7 mg/dL (7-18); CALCIUM 8.1 mg/dL (8.5-10.1); PHOSPHOROUS 4.6 mg/dL (2.5-4.9); POTASSIUM 3.4 mmol/L (3.5-5.1); TOT PROT 6.6 g/dl (6.4-8.2)
[2019-09-27] MEDS ORDERED: cefTRIAXone SODIUM 1 GM VIAL ONE (08:45)
[2019-09-27] MEDS ORDERED: DEXTROSE 5%-WATER - 50 ML IVPB ONE ×2 (08:46→10:31)
--- NOTE | 2019-09-27 09:48 | PN ---
Physical Exam: SUBJECTIVE: Patient seen and examined at bedside. No acute events overnight. Pt states she has had BM yesterday. Melissa PO intake. Denies chest pain, sob. States she is still swollen, but is improving. Good urine output. OBJECTIVE: Vital Signs Period Temp Pulse Resp BP Sys/Hernandez Pulse Ox Last 24 Hr 97.9 F-98.2 F 87-98 20-20 109-140/60-85 98 GENERAL: Pleasant, well-appearing female. NAD. AAOx3. Cooperative. HEENT: AT/NC. EOMI. MMM. NECK: Supple, no JVD noted. LUNGS: Bibasilar crackles noted. No wheezes. Symmetric chest rise, good inspiratory effort. HEART: Regular rate and rhythm, normal S1 and S2 without murmur. ABDOMEN: Obese. Soft, mildly tender to palpation. No rebound tenderness or guard ing. Normoactive bowel sounds. MUSCULOSKELETAL: Normal range of motion at all joints. UPPER EXTREMITIES: Warm, well-perfused. B/l ecchymosis with bullae on left arm. No peripheral edema. LOWER EXTREMITIES: Warm, well-perfused. B/l +2 pitting edema to knee, edema b/l thighs non-pitting. NEUROLOGICAL: Cranial nerves II-XII intact. Normal speech. PSYCHIATRIC: Semi-cooperative. Good eye contact. SKIN: Warm, dry, normal turgor. Laboratory Results - last 24 hr 09/26/19 09/26/19 09/26/19 05:52 12:16 15:53 WBC RBC Hgb Hct MCV MCH MCHC RDW Plt Count MPV Sodium Potassium Chloride Carbon Dioxide Anion Gap BUN Creatinine Est GFR (CKD-EPI)AfAm Est GFR (CKD-EPI)NonAf POC Glucometer 147 182 Random Glucose Serum Osmolality 305 Calcium Phosphorus Magnesium Iron TIBC Iron Saturation Unsaturated IBC Ferritin Total Bilirubin AST ALT Alkaline Phosphatase Total Protein Albumin Stool Occult Blood 09/26/19 09/26/19 09/26/19 17:58 19:40 19:40 WBC 19.2 H RBC 2.62 L Hgb 7.9 L Hct 24.6 L MCV 94.1 MCH 30.2 MCHC 32.1 RDW 19.9 H Plt Count 197 MPV 8.6 Sodium Potassium Chloride Carbon Dioxide Anion Gap BUN Creatinine Est GFR (CKD-EPI)AfAm Est GFR (CKD-EPI)NonAf POC Glucometer Random Glucose Serum Osmolality Calcium Phosphorus Magnesium Iron 31 L TIBC 202 L Iron Saturation 15 L Unsaturated IBC 171 L Ferritin 986.2 H Total Bilirubin AST ALT Alkaline Phosphatase Total Protein Albumin Stool Occult Blood Negative 09/26/19 09/27/19 09/27/19 21:32 06:14 06:51 WBC 16.2 H RBC 2.41 L Hgb 7.2 L Hct 22.1 L MCV 91.8 MCH 30.0 MCHC 32.6 RDW 19.5 H Plt Count 164 MPV 8.1 Sodium Potassium Chloride Carbon Dioxide Anion Gap BUN Creatinine Est GFR (CKD-EPI)AfAm Est GFR (CKD-EPI)NonAf POC Glucometer 171 163 Random Glucose Serum Osmolality Calcium Phosphorus Magnesium Iron TIBC Iron Saturation Unsaturated IBC Ferritin Total Bilirubin AST ALT Alkaline Phosphatase Total Protein Albumin Stool Occult Blood 09/27/19 06:51 WBC RBC Hgb Hct MCV MCH MCHC RDW Plt Count MPV Sodium 129 L Potassium 3.4 L Chloride 92 L Carbon Dioxide 25 Anion Gap 13 BUN 102.7 H Creatinine 3.0 H Est GFR (CKD-EPI)AfAm 15.33 Est GFR (CKD-EPI)NonAf 13.22 POC Glucometer Random Glucose 152 H Serum Osmolality Calcium 8.1 L Phosphorus 4.6 Magnesium 2.0 Iron TIBC Iron Saturation Unsaturated IBC Ferritin Total Bilirubin 0.4 AST 23 ALT 16 Alkaline Phosphatase 370 H Total Protein 6.6 Albumin 2.4 L Stool Occult Blood Active Medications Generic Name Dose Route Start Last Admin Trade Name Freq PRN Reason Stop Dose Admin Apixaban 2.5 mg 09/24/19 23:00 09/26/19 22:22 Eliquis - PO 2.5 mg BID [facility] Administration Carvedilol 25 mg 09/26/19 11:28 09/26/19 21:35 Coreg - PO 25 mg BID [facility] Administration Docusate Sodium 300 mg 09/25/19 22:00 09/26/19 21:34 Colace - PO 300 mg HS [facility] Administration Furosemide 40 mg 09/26/19 14:00 09/27/19 06:16 Lasix Injection - IVPUSH 40 mg BID@0600,1400 [facility] Administration Piperacillin Sod/Tazobactam 50 mls @ 100 mls/hr 09/27/19 10:00 Sod 2.25 gm/ Dextrose IVPB Q8H-IV [facility] Protocol Insulin Aspart 1 vial 09/25/19 07:00 09/27/19 06:16 Novolog Vial Sliding Scale - SQ 2 units ACHS [facility] Administration Protocol Letrozole 2.5 mg 09/25/19 10:00 09/26/19 09:27 Femara - PO 2.5 mg DAILY [facility] Administration Levothyroxine Sodium 100 mcg 09/25/19 07:00 09/27/19 06:16 Synthroid - PO 100 mcg ACBK [facility] Administration Miscellaneous 1 each 09/24/19 22:00 09/26/19 21:35 Lidoderm Patch Removal MC 1 each DAILY@2200 [facility] Administration Ptnt's Own Med ( 2 gm 09/26/19 14:13 Diclofenac Sodium [ TP Diclofenac Sodium] 2 Q8H PRN Gm) PAIN Oxycodone HCl 5 mg 09/24/19 22:55 09/25/19 23:51 Roxicodone - PO 5 mg Q6H PRN Administration PAIN LEVEL 7 - 10 Pantoprazole Sodium 40 mg 09/26/19 10:00 09/26/19 09:27 Protonix - PO 40 mg DAILY [facility] Administration Polyethylene Glycol 17 gm 09/24/19 23:00 09/26/19 21:35 Miralax (For Daily Use) - PO Not Given BID [facility] Simethicone 80 mg 09/25/19 15:59 09/26/19 13:16 Mylicon - PO 80 mg Q4H PRN Administration GAS IMAGING: * CT L-Spine: Mod to marked b/l L4-L5 degenerative facet arthropathy, mod to marked L2-L3, marked L3-L4, marked L4-L5 degenerative central canal stenosis, multilevel b/l foraminal stenoses are noted. No CT evid of fx or bony neoplastic disease. * CTAP: 4 cm L hepatic lobe hypodense lesion sugg of metastatic neoplastic dz. Possible add'l R hepatic lobe lesions are also seen. 2.[address] noted. Several mildly enlarged RP LN seen. Colonic diverticulosis w/o evid of acute diverticulitis. B/l adrenal nodules seen w/o gross interval change compared to chest CT on 04/09/19. Small L inguinal hernia containing fat and ve ry short segment of nondilated sigmoid colon loop. * EKG: Afib, HR 84, LAD, LVH, QTc 484 ms * Abd U/S: Hepatomegaly with fatty infiltration liver versus hepatocellular disease. 2 hypoechoic hepatic mass lesions with the largest in the right hepatic lobe measuring 5.7 cm and the one in the left hepatic lobe measuring 4 cm in maximum dimension, suspicious for malignancy Abnormal thickening of the gallbladder wall without gross evidence of gallstones. Correlate clinically for further evaluation. Nonvisualization of the pancreas and abdominal aorta Small amount of free fluid/ascites in the right upper abdomen ASSESSMENT/PLAN: 89F from [facility] with pmhx of diastolic CHF, a-fib (on Eliquis), CKD, breast cancer s/p mastectomy, myelodysplasia, IDDM type 2, hypothyroidism, HLD, CVA, and GERD presents with b/l leg swelling and nausea for "weeks" and back pain for several days admitted for acute CHF exacerbation. #Acute on Chronic Diastolic CHF Exacerbation; Initial BNP 19k, b/l LE pitting edema, bibasilar crackles -Daily weights, I/Os, fluid restriction -Cardio consulted; will continue Lasix 40 BID IV -Cont O2 NC, currently on 2L -Per nephro, will give dose of Aldactone #UTI; UCx +Kleb Pneumonia ESBL -Per ID, will switch Ceftriaxone to Ertapenem 0.5 gm QD; (Day 4, started on 09/23) #Hyponatremia; likely 2/2 fluid overload. Initial 128 --> 129. Improving. -Fluid restriction -IV diuresis -Renal consulted -Uosm, Carmita, trend BMP #MAURICE on CKD; 3.1 --> 3.0 (baseline ~2.0-2.5 per EMR) -Hold amlodipine, hydralazine to allow for pressure drop and prevent hypoperfusion from IV Lasix -serial BMPs to monitor Cr (baseline near 2) -Renal consulted -renally dose all meds #Anemia; likely multi-factorial in setting of CKD, myelodysplasia, r/o GI bleed. s/p 1 dose of IV Venofer -Hb 7.9 --> 7.2 (was 8.3 s/p 3U pRBCs last admission 08/24); Fe 31, TIBC 202, Fe sat 15, Ferr 986.2 -During last admission, was seen by heme with recommendation for outpt workup -Tranfuse PRN to maintain Hgb >7 -FOBT neg #New 4 cm L Hepatic Lobe lesion; in setting of hx of breast cancer and myelodysplasia -Onc consulted (known to Dr. Estrada) - Onc to have discussion with pt regarding further work up and goals of care; if agreeable, consider liver biopsy with IR for diagnosis -Abd u/s results noted above #HTN; Stable. Cont home med: Carvedilol 25 BID. Per cardio, will cont rest of home meds when BP stable #Generalized abdominal pain; 2/2 constipation vs. liver mass -Oxycodone 5mg Q6H PRN for pain, Diclofenac cream -Miralax 17 gm BID for constipation -QTc 484, try to avoid Zofran for nausea/vomiting #Back pain -no known fall -Oxycodone 5 PRN for pain -PT #Hypothyroidism; Cont home meds: Synthroid 100 #Prophylaxis DVT: Cont home Eliquis 2.5 BID FEN -Fluid restriction -monitor Na, Cl, and Cr -sodium/diabetic diet Dispo -Cont to monitor on tele -Pt has MOLST on file, however specified that she wants FULL CODE. Visit type - Emergency Visit Emergency Visit: Yes ED Registration Date: 09/24/19 Care time: The patient presented to the Emergency Department on the above date and was hospitalized for further evaluation of their emergent condition. - New Patient This patient is new to me today: No - Critical Care Critical Care patient: No ATTENDING PHYSICIAN STATEMENT I saw and evaluated the patient. I reviewed the resident's note and discussed the case with the resident. I agree with the resident's findings and plan as documented. SUBJECTIVE: OBJECTIVE: ASSESSMENT AND PLAN:
[2019-09-27] MEDS ORDERED: PIPERACILLIN/TAZOB 2.25 GM 2.25 GM in DEXTROSE 5%-WATER - 50 ML IVPB SCH (10:00)
--- NOTE | 2019-09-27 10:25 | PN ---
Progress Note (short form) - Note Progress Note: Consultation Note: cc: le edema History of Present Illness: 89 year old woman with a history of Afib on Eliquis, HTN, hyperlipidemia, type 2 DM, CVAs, CKD with baseline creat of 2-2.5, hypothyroidism, GERD, breast cancer s/p surgery, myelodysplasia, hx of [place] syndrome, gait instability who presented to the ED with le edema. She c/o le edema, back pain, manjarrez. No cp palps dizzy rest sob loc pnd orthopnea. no overnight events, back pain persists, sob improving. Current Medications Generic Name Dose Route Start Last Admin Trade Name Freq PRN Reason Stop Dose Admin Apixaban 2.5 mg 09/24/19 23:00 09/26/19 22:22 Eliquis - PO 2.5 mg BID [facility] Administration Carvedilol 25 mg 09/26/19 11:28 09/26/19 21:35 Coreg - PO 25 mg BID [facility] Administration Docusate Sodium 300 mg 09/25/19 22:00 09/26/19 21:34 Colace - PO 300 mg HS [facility] Administration Furosemide 40 mg 09/26/19 14:00 09/27/19 06:16 Lasix Injection - IVPUSH 40 mg BID@0600,1400 [facility] Administration Piperacillin Sod/Tazobactam 50 mls @ 100 mls/hr 09/28/19 10:00 Sod 2.25 gm/ Dextrose IVPB Q8H-IV [facility] Protocol Piperacillin Sod/Tazobactam 50 mls @ 100 mls/hr 09/27/19 10:00 Sod 2.25 gm/ Dextrose IVPB 09/28/19 02:29 Q8H-IV [facility] Protocol Insulin Aspart 1 vial 09/25/19 07:00 09/27/19 06:16 Novolog Vial Sliding Scale - SQ 2 units ACHS [facility] Administration Protocol Letrozole 2.5 mg 09/25/19 10:00 09/26/19 09:27 Femara - PO 2.5 mg DAILY [facility] Administration Levothyroxine Sodium 100 mcg 09/25/19 07:00 09/27/19 06:16 Synthroid - PO 100 mcg ACBK [facility] Administration Miscellaneous 1 each 09/24/19 22:00 09/26/19 21:35 Lidoderm Patch Removal MC 1 each DAILY@2200 [facility] Administration Ptnt's Own Med ( 2 gm 09/26/19 14:13 Diclofenac Sodium [ TP Diclofenac Sodium] 2 Q8H PRN Gm) PAIN Oxycodone HCl 5 mg 09/24/19 22:55 09/25/19 23:51 Roxicodone - PO 5 mg Q6H PRN Administration PAIN LEVEL 7 - 10 Pantoprazole Sodium 40 mg 09/26/19 10:00 09/26/19 09:27 Protonix - PO 40 mg DAILY [facility] Administration Polyethylene Glycol 17 gm 09/24/19 23:00 09/26/19 21:35 Miralax (For Daily Use) - PO Not Given BID [facility] Simethicone 80 mg 09/25/19 15:59 09/26/19 13:16 Mylicon - PO 80 mg Q4H PRN Administration GAS Vital Signs Period Temp Pulse Resp BP Sys/Hernandez Pulse Ox Last 24 Hr 97.9 F-98.2 F 87-98 20-20 109-140/60-85 96-98 nad no jvd dec bs bases nl eff aao3 1+ le edema bl, no c/c irreg s1s2 no mrg abd nt nd pos bs no jaundice diaphoresis CBC, BMP 09/27/19 06:51 09/27/19 06:51 cxr: chf ecg: afib, rate ok, no ischemic changes tele: afib, rate ok echo 03/2019 nl LV function, mild MR, mild TR, PASP at least 49 mmHg IMP/REC: Acute diastolic heart failure exacerbation: - recent echo nl LV function - no signs acs - continue Lasix 40mg IV bid with daily weights and BMP to monitor lytes and renal fx (baseline creat is 2-2.5) - Supp O2 HTN: - cont coreg - if bp stable, resume home hydralazine and imdur next crow on CKD: - Baseline creat from last admission is 2-2.5, elevated now, likely cardiorenal, monitor with diuresis - renal consulting PAF: -cont coreg for rate control -cont eliquis low dose liver mass: -heme/onc following
[2019-09-27] MEDS ORDERED: PIPERACILLIN/TAZOBACTAM 2.25 GM VIAL IVPB ONE (10:31)
[2019-09-27] MEDS: POTASSIUM CHLORIDE TABS 20 MEQ TABLET.ER (FP) PO ONE ×2 (10:38→10:46)
[2019-09-27] MEDS: PANTOPRAZOLE 40 MG TABLET PO SCH (10:39)
[2019-09-27] MEDS: LETROZOLE 2.5 MG TABLET (FP) PO SCH (10:39)
[2019-09-27] MEDS: APIXABAN 2.5 MG TABLET PO SCH ×2 (10:39→21:39)
[2019-09-27] MEDS: CARVEDILOL 25 MG TABLET (FP) PO SCH ×2 (10:39→21:39)
[2019-09-27] MEDS: POLYETHYLENE GLYCOL 3350 119 GM BTL PO SCH ×2 (10:40→21:39)
[2019-09-27] MEDS ORDERED: POTASSIUM CHLORIDE ORAL LIQUID 20 MEQ/15 ML PO ONE (11:28)
--- NOTE | 2019-09-27 12:45 | PN ---
Progress Note, Physician History of Present Illness: Pt seen and examined at bedside. She is awake and alert. She has shortness of breath when laying flat. - Current Medication List Current Medications: Active Medications Apixaban (Eliquis -) 2.5 mg PO BID [facility] Last Admin: 09/27/19 10:39 Dose: 2.5 mg Documented by: Carvedilol (Coreg -) 25 mg PO BID [facility] Last Admin: 09/27/19 10:39 Dose: 25 mg Documented by: Docusate Sodium (Colace -) 300 mg PO HS [facility] Last Admin: 09/26/19 21:34 Dose: 300 mg Documented by: Furosemide (Lasix Injection -) 40 mg IVPUSH BID@0600,1400 [facility] Last Admin: 09/27/19 06:16 Dose: 40 mg Documented by: Piperacillin Sod/Tazobactam (Sod 2.25 gm/ Dextrose) 50 mls @ 100 mls/hr IVPB Q8H-IV [facility]; Protocol Piperacillin Sod/Tazobactam (Sod 2.25 gm/ Dextrose) 50 mls @ 100 mls/hr IVPB Q8H-IV [facility]; Protocol Stop: 09/28/19 02:29 Last Admin: 09/27/19 10:38 Dose: 100 mls/hr Documented by: Insulin Aspart (Novolog Vial Sliding Scale -) 1 vial SQ ACHS [facility]; Protocol Last Admin: 09/27/19 11:27 Dose: 4 units Documented by: Letrozole (Femara -) 2.5 mg PO DAILY [facility] Last Admin: 09/27/19 10:39 Dose: 2.5 mg Documented by: Levothyroxine Sodium (Synthroid -) 100 mcg PO ACBK [facility] Last Admin: 09/27/19 06:16 Dose: 100 mcg Documented by: Miscellaneous (Lidoderm Patch Removal) 1 each MC DAILY@2200 [facility] Last Admin: 09/26/19 21:35 Dose: 1 each Documented by: Ptnt's Own Med ( Diclofenac Sodium [ Diclofenac Sodium] 2 Gm) 2 gm TP Q8H PRN PRN Reason: PAIN Oxycodone HCl (Roxicodone -) 5 mg PO Q6H PRN PRN Reason: PAIN LEVEL 7 - 10 Last Admin: 09/25/19 23:51 Dose: 5 mg Documented by: Pantoprazole Sodium (Protonix -) 40 mg PO DAILY [facility] Last Admin: 09/27/19 10:39 Dose: 40 mg Documented by: Polyethylene Glycol (Miralax (For Daily Use) -) 17 gm PO BID [facility] Last Admin: 09/27/19 10:40 Dose: Not Given Documented by: Simethicone (Mylicon -) 80 mg PO Q4H PRN PRN Reason: GAS Last Admin: 09/26/19 13:16 Dose: 80 mg Documented by: - Objective Vital Signs: Vital Signs Temperature 98.1 F 09/27/19 08:59 Pulse Rate 91 H 09/27/19 08:59 Respiratory Rate 09/27/19 09:00 Blood Pressure 126/60 09/27/19 08:59 O2 Sat by Pulse Oximetry (%) 96 09/27/19 09:00 Constitutional: Yes: Calm Eyes: Yes: Conjunctiva Clear HENT: Yes: Atraumatic Neck: Yes: Supple Cardiovascular: Yes: S1, S2 Respiratory: Yes: On Nasal O2, Rhonchi Gastrointestinal: Yes: Soft Musculoskeletal: Yes: Muscle Weakness Edema: Yes Edema: LLE: 1+, RLE: 1+ Neurological: Yes: Oriented Psychiatric: Yes: Oriented Labs: CBC, BMP 09/27/19 06:51 09/27/19 06:51 INR, PTT INR 1.69 (0.83-1.09) H 09/24/19 16:49 Assessment/Plan Current Medications Generic Name Dose Route Start Last Admin Trade Name Freq PRN Reason Stop Dose Admin Apixaban 2.5 mg 09/24/19 23:00 09/27/19 10:39 Eliquis - PO 2.5 mg BID [facility] Administration Carvedilol 25 mg 09/26/19 11:28 09/27/19 10:39 Coreg - PO 25 mg BID [facility] Administration Docusate Sodium 300 mg 09/25/19 22:00 09/26/19 21:34 Colace - PO 300 mg HS [facility] Administration Furosemide 40 mg 09/26/19 14:00 09/27/19 06:16 Lasix Injection - IVPUSH 40 mg BID@0600,1400 [facility] Administration Piperacillin Sod/Tazobactam 50 mls @ 100 mls/hr 09/28/19 10:00 Sod 2.25 gm/ Dextrose IVPB Q8H-IV [facility] Protocol Piperacillin Sod/Tazobactam 50 mls @ 100 mls/hr 09/27/19 10:00 09/27/19 10:38 Sod 2.25 gm/ Dextrose IVPB 09/28/19 02:29 100 mls/hr Q8H-IV [facility] Administration Protocol Insulin Aspart 1 vial 09/25/19 07:00 09/27/19 11:27 Novolog Vial Sliding Scale - SQ 4 units ACHS [facility] Administration Protocol Letrozole 2.5 mg 09/25/19 10:00 09/27/19 10:39 Femara - PO 2.5 mg DAILY [facility] Administration Levothyroxine Sodium 100 mcg 09/25/19 07:00 09/27/19 06:16 Synthroid - PO 100 mcg ACBK [facility] Administration Miscellaneous 1 each 09/24/19 22:00 09/26/19 21:35 Lidoderm Patch Removal MC 1 each DAILY@2200 [facility] Administration Ptnt's Own Med ( 2 gm 09/26/19 14:13 Diclofenac Sodium [ TP Diclofenac Sodium] 2 Q8H PRN Gm) PAIN Oxycodone HCl 5 mg 09/24/19 22:55 09/25/19 23:51 Roxicodone - PO 5 mg Q6H PRN Administration PAIN LEVEL 7 - 10 Pantoprazole Sodium 40 mg 09/26/19 10:00 09/27/19 10:39 Protonix - PO 40 mg DAILY [facility] Administration Polyethylene Glycol 17 gm 09/24/19 23:00 09/27/19 10:40 Miralax (For Daily Use) - PO Not Given BID [facility] Simethicone 80 mg 09/25/19 15:59 09/26/19 13:16 Mylicon - PO 80 mg Q4H PRN Administration GAS Impression 1. proteinuria 2. hypothyroid 3. HTN 4. DM 5. fluid overload 6. breast cancer 7. anemia 8. CKD 9. CHF 10. hyponatremia 11. hypokalemia Plan - cont lasix - replace potassium - will give a dose of aldactone - daily weights - repeat labs in am
--- NOTE | 2019-09-27 13:03 | PN ---
Progress Note, Physician History of Present Illness: AWAKE IN BED COMPLAINS OF BACK PAIN FROM BEING IN BED DENIES DYSURIA NO C/O FEVER/CHILLS - Current Medication List Current Medications: Active Medications Apixaban (Eliquis -) 2.5 mg PO BID [facility] Last Admin: 09/27/19 10:39 Dose: 2.5 mg Documented by: Carvedilol (Coreg -) 25 mg PO BID [facility] Last Admin: 09/27/19 10:39 Dose: 25 mg Documented by: Docusate Sodium (Colace -) 300 mg PO HS [facility] Last Admin: 09/26/19 21:34 Dose: 300 mg Documented by: Furosemide (Lasix Injection -) 40 mg IVPUSH BID@0600,1400 [facility] Last Admin: 09/27/19 06:16 Dose: 40 mg Documented by: Piperacillin Sod/Tazobactam (Sod 2.25 gm/ Dextrose) 50 mls @ 100 mls/hr IVPB Q8H-IV [facility]; Protocol Piperacillin Sod/Tazobactam (Sod 2.25 gm/ Dextrose) 50 mls @ 100 mls/hr IVPB Q8H-IV [facility]; Protocol Stop: 09/28/19 02:29 Last Admin: 09/27/19 10:38 Dose: 100 mls/hr Documented by: Insulin Aspart (Novolog Vial Sliding Scale -) 1 vial SQ ACHS [facility]; Protocol Last Admin: 09/27/19 11:27 Dose: 4 units Documented by: Letrozole (Femara -) 2.5 mg PO DAILY [facility] Last Admin: 09/27/19 10:39 Dose: 2.5 mg Documented by: Levothyroxine Sodium (Synthroid -) 100 mcg PO ACBK [facility] Last Admin: 09/27/19 06:16 Dose: 100 mcg Documented by: Miscellaneous (Lidoderm Patch Removal) 1 each MC DAILY@2200 [facility] Last Admin: 09/26/19 21:35 Dose: 1 each Documented by: Ptnt's Own Med ( Diclofenac Sodium [ Diclofenac Sodium] 2 Gm) 2 gm TP Q8H PRN PRN Reason: PAIN Oxycodone HCl (Roxicodone -) 5 mg PO Q6H PRN PRN Reason: PAIN LEVEL 7 - 10 Last Admin: 09/25/19 23:51 Dose: 5 mg Documented by: Pantoprazole Sodium (Protonix -) 40 mg PO DAILY [facility] Last Admin: 09/27/19 10:39 Dose: 40 mg Documented by: Polyethylene Glycol (Miralax (For Daily Use) -) 17 gm PO BID [facility] Last Admin: 09/27/19 10:40 Dose: Not Given Documented by: Simethicone (Mylicon -) 80 mg PO Q4H PRN PRN Reason: GAS Last Admin: 09/26/19 13:16 Dose: 80 mg Documented by: Spironolactone (Aldactone -) 25 mg PO ONCE ONE Stop: 09/27/19 12:46 - Objective Vital Signs: Vital Signs Temperature 98.1 F 09/27/19 08:59 Pulse Rate 91 H 09/27/19 08:59 Respiratory Rate 20 09/27/19 09:00 Blood Pressure 126/60 09/27/19 08:59 O2 Sat by Pulse Oximetry (%) 96 09/27/19 09:00 Constitutional: Yes: No Distress Eyes: Yes: Conjunctiva Clear Cardiovascular: Yes: Regular Rate and Rhythm, S1, S2 Respiratory: Yes: CTA Bilaterally Gastrointestinal: Yes: Normal Bowel Sounds, Soft. No: Tenderness Edema: Yes Labs: CBC, BMP 09/27/19 06:51 09/27/19 06:51 INR, PTT INR 1.69 (0.83-1.09) H 09/24/19 16:49 Assessment/Plan CHF UTI ESBL LEUKOCYTOSIS AZOTEMIA SUBSTITUTE ERTAPENEM 500MG QD CONTACT PRECAUTIONS
--- NOTE | 2019-09-27 13:23 | PN ---
Teaching Attending Note Name of Resident: Gail Martinez ATTENDING PHYSICIAN STATEMENT I saw and evaluated the patient. I reviewed the resident's note and discussed the case with the resident. I agree with the resident's findings and plan as documented. SUBJECTIVE: Patient has no new events. OBJECTIVE: Vital Signs Temperature 98.1 F 09/27/19 08:59 Pulse Rate 91 H 09/27/19 08:59 Respiratory Rate 20 09/27/19 09:00 Blood Pressure 126/60 09/27/19 08:59 O2 Sat by Pulse Oximetry (%) 96 09/27/19 09:00 PE: per resident's note CBCD WBC 16.2 K/mm3 (4.0-10.0) H 09/27/19 06:51 RBC 2.41 M/mm3 (3.60-5.2) L 09/27/19 06:51 Hgb 7.2 GM/dL (10.7-15.3) L 09/27/19 06:51 Hct 22.1 % (32.4-45.2) L 09/27/19 06:51 MCV 91.8 fl (80-96) 09/27/19 06:51 MCHC 32.6 g/dl (32.0-36.0) 09/27/19 06:51 RDW 19.5 % (11.6-15.6) H 09/27/19 06:51 Plt Count 164 K/MM3 (134-434) 09/27/19 06:51 MPV 8.1 fl (7.5-11.1) 09/27/19 06:51 CMP Sodium 129 mmol/L (136-145) L 09/27/19 06:51 Potassium 3.4 mmol/L (3.5-5.1) L 09/27/19 06:51 Chloride 92 mmol/L (98-107) L 09/27/19 06:51 Carbon Dioxide 25 mmol/L (21-32) 09/27/19 06:51 Anion Gap 13 MMOL/L (8-16) 09/27/19 06:51 BUN 102.7 mg/dL (7-18) H 09/27/19 06:51 Creatinine 3.0 mg/dL (0.55-1.3) H 09/27/19 06:51 Random Glucose 152 mg/dL (74-106) H 09/27/19 06:51 Calcium 8.1 mg/dL (8.5-10.1) L 09/27/19 06:51 Total Bilirubin 0.4 mg/dL (0.2-1) 09/27/19 06:51 AST 23 U/L (15-37) 09/27/19 06:51 ALT 16 U/L (13-61) 09/27/19 06:51 Alkaline Phosphatase 370 U/L (45-117) H 09/27/19 06:51 Total Protein 6.6 g/dl (6.4-8.2) 09/27/19 06:51 Albumin 2.4 g/dl (3.4-5.0) L 09/27/19 06:51 CARDIAC ENZYMES Troponin I < 0.02 ng/ml (0.00-0.05) 09/24/19 16:49 Current Medications Generic Name Dose Route Start Last Admin Trade Name Freq PRN Reason Stop Dose Admin Apixaban 2.5 mg 09/24/19 23:00 09/27/19 10:39 Eliquis - PO 2.5 mg BID [facility] Administration Carvedilol 25 mg 09/26/19 11:28 09/27/19 10:39 Coreg - PO 25 mg BID [facility] Administration Docusate Sodium 300 mg 09/25/19 22:00 09/26/19 21:34 Colace - PO 300 mg HS [facility] Administration Furosemide 40 mg 09/26/19 14:00 09/27/19 06:16 Lasix Injection - IVPUSH 40 mg BID@0600,1400 [facility] Administration Ertapenem 0.5 gm/ Sodium 50 mls @ 100 mls/hr 09/27/19 14:00 Chloride IVPB DAILY [facility] Insulin Aspart 1 vial 09/25/19 07:00 09/27/19 11:27 Novolog Vial Sliding Scale - SQ 4 units ACHS [facility] Administration Protocol Letrozole 2.5 mg 09/25/19 10:00 09/27/19 10:39 Femara - PO 2.5 mg DAILY [facility] Administration Levothyroxine Sodium 100 mcg 09/25/19 07:00 09/27/19 06:16 Synthroid - PO 100 mcg ACBK [facility] Administration Miscellaneous 1 each 09/24/19 22:00 09/26/19 21:35 Lidoderm Patch Removal MC 1 each DAILY@2200 [facility] Administration Ptnt's Own Med ( 2 gm 09/26/19 14:13 Diclofenac Sodium [ TP Diclofenac Sodium] 2 Q8H PRN Gm) PAIN Oxycodone HCl 5 mg 09/24/19 22:55 09/25/19 23:51 Roxicodone - PO 5 mg Q6H PRN Administration PAIN LEVEL 7 - 10 Pantoprazole Sodium 40 mg 09/26/19 10:00 09/27/19 10:39 Protonix - PO 40 mg DAILY [facility] Administration Polyethylene Glycol 17 gm 09/24/19 23:00 09/27/19 10:40 Miralax (For Daily Use) - PO Not Given BID [facility] Simethicone 80 mg 09/25/19 15:59 09/26/19 13:16 Mylicon - PO 80 mg Q4H PRN Administration GAS Spironolactone 25 mg 09/27/19 13:30 Aldactone - PO 09/27/19 13:31 ONCE ONE Home Medications Medication Instructions Recorded Calcium Carbonate/Vitamin D3 1 each PO BID 06/23/18 [Calcium 500-Vit D3 400 Tablet] Carvedilol [Coreg -] 25 mg PO BID 06/23/18 Polyethylene Glycol 3350 [Miralax 17 gm PO DAILY PRN bottle 04/27/19 119 gm Btl -] Amlodipine Besylate [Norvasc -] 5 mg PO DAILY 08/12/19 Apixaban [Eliquis] 2.5 mg PO BID 08/12/19 Furosemide [Lasix -] 80 mg PO BID 08/12/19 Isosorbide Mononitrate [Imdur -] 60 mg PO DAILY 08/12/19 Sitagliptin Phosphate [Januvia] 25 mg PO DAILY 08/12/19 hydrALAZINE HCL [Apresoline -] 10 mg PO TID 08/12/19 Insulin Glargine,Hum.rec.anlog 25 unit SQ DAILY 09/24/19 [Lantus] Insulin Lispro [Humalog] 100 unit SQ PRN 09/24/19 Letrozole [Femara] 2.5 mg PO DAILY 09/24/19 Omeprazole 20 mg PO DAILY 09/24/19 Pantoprazole Sodium [Protonix] 40 mg PO DAILY 09/24/19 Simethicone 125 mg PO Q4H PRN 09/24/19 Multivitamin [One-Daily 1 each PO DAILY 09/25/19 Multi-Vitamin] Ondansetron [Zofran -] 4 mg PO Q4H PRN 09/25/19 Oxycodone HCl/Acetaminophen 1 tab PO Q12H PRN 09/25/19 [Percocet 5-325 mg Tablet] Diclofenac Sodium 2 gm TP DAILY 09/26/19 Microbiology 09/24/19 20:45 Urine - Urine Clean Catch Urine Culture - Final Klebsiella Pneumoniae - Esbl CT L-Spine: Mod to marked b/l L4-L5 degenerative facet arthropathy, mod to marked L2-L3, marked L3-L4, marked L4-L5 degenerative central canal stenosis, multilevel b/l foraminal stenoses are noted. No CT evidence of fx or bony neoplastic disease. CTAP: 4 cm L hepatic lobe hypodense lesion sugg of metastatic neoplastic dz. Possible add'l R hepatic lobe lesions are also seen. 2.[address] noted. Several mildly enlarged RP LN seen. Colonic diverticulosis w/o evid of ac vitaly diverticulitis. B/l adrenal nodules seen without any gross interval change compared to chest CT on 04/09/19. Small L inguinal hernia containing fat and very short segment of nondilated sigmoid colo n loop. CXR: enlarged cardiac silhouette, no pleural effusion EKG: Afib, HR 84, LAD, LVH, QTc 484 ms ASSESSMENT/PLAN: This patient is an 89yof [facility] with pmhx of diastolic CHF, a-fib (on E liquis), CKD, breast cancer s/p mastectomy, myelodysplasia, IDDM type 2, hypothyroidism, HLD, CVA, and GERD presents with b/l leg swelling , nausea for weeks and back pain for several days admitted for acute diastolic CHF exacerbation. # Klebsiella Pneumoniae - Esbl: on Ertapenem continue as per ID #Acute on Chronic Diastolic CHF Exacerbation; Initial BNP 19k, b/l LE pitting edema s/p Lasix 80mg IV , Daily weights, I/Os, fluid restriction to 1 liter , BNP 20K. # Prolonged Qtc: 484 monitor # Hepatic 4cm left hepatic lobe hypodense lesion cannt r/o metastatic Dz. oncology consult #Acute Hyponatremia: likely due to fluid overload. Initial 127 --> 128-->129 today , on IV lasix 40mg BID #MAURICE on CKD: monitor, will give lasix as prn, nephro on the case ; cr: 3.4-->3.1-->3.0 now #UTI: on IV Ceftriaxone 1gm daily , Cx is Kliebsiella ESBL, ID on the case #Anemia; likely multi-factorial in setting of CKD, myelodysplasia, r/o GI bleed. s/p 1 dose of IV Venofer -Hb 7.4 --> 7.2 (was 8.3 s/p 3U pRBCs last admission 08/24) #New 4 cm L Hepatic Lobe lesion; in setting of hx of breast cancer and myelodysplasia, r/o metastatic liver dz, oncology consulted dr. Estrada contacted regarding the mass. #Acute generalized abdominal pain: possible due to new liver mets. vs constipation will hold off on pain meds since can exacerbate the constipation #Hypothyroidism; Cont home meds: 100 DVT Px: Eliquis 2.5 BID FULL CODE called the oncologist to get more info. on the patient for possible liver Bx by IR restrict fluid to 1liter per day
[2019-09-27] MEDS ORDERED: SPIRONOLACTONE 25 MG TABLET PO ONE (13:30)
[2019-09-27] MEDS: ERTAPENEM SODIUM 0.5 GM in SODIUM CHLORIDE 50 ML IVPB SCH (16:40)
[2019-09-27] MEDS: DICLOFENAC SODIUM TP PRN (16:52)
[2019-09-27] MEDS: LIDOCAINE PATCH REMOVAL MC SCH (21:39)
[2019-09-27] MEDS: DOCUSATE SODIUM 100 MG CAPSULE (FP) PO SCH (21:39)
[2019-09-28] MEDS: INSULIN SLIDING SCALE (NOVOLOG) 1 VIAL SQ SCH ×4 (06:10→22:50)
[2019-09-28] MEDS: LEVOTHYROXINE NA 100 MCG TABLET (FP) PO SCH (06:11)
[2019-09-28 06:24] LABS: BASO % 0.7 % (0-2.0); EOS % 6.4 % (0-4.5); HEMATOCRIT 22.1 % (32.4-45.2); HEMOGLOBIN 7.1 GM/dL (10.7-15.3); LYMPH % 6.6 % (8-40); MCH 30.2 pg (25.7-33.7); MCHC 32.1 g/dl (32.0-36.0); MEAN CELL VOLUME 94.1 fl (80-96); MEAN PLT VOLUME 8.8 fl (7.5-11.1); MONO % 13.7 % (3.8-10.2); NEUT % 72.6 % (42.8-82.8); PLATELET COUNT 148 K/MM3 (134-434); RBC 2.34 M/mm3 (3.60-5.2); RDW 19.8 % (11.6-15.6); WHITE BLOOD COUNT 16.5 K/mm3 (4.0-10.0)
[2019-09-28 06:30] LABS: ALBUMIN 2.3 g/dl (3.4-5.0); BILIRUBIN,TOTAL 0.4 mg/dL (0.2-1); BLOOD UREA NITROGEN 103.8 mg/dL (7-18); CALCIUM 7.8 mg/dL (8.5-10.1); MAGNESIUM 1.9 mg/dL (1.8-2.4); PHOSPHOROUS 5.1 mg/dL (2.5-4.9); TOT PROT 6.7 g/dl (6.4-8.2)
[2019-09-28 06:48] LABS: POTASSIUM 4.4 mmol/L (3.5-5.1)
[2019-09-28] MEDS ORDERED: PIPERACILLIN/TAZOB 2.25 GM 2.25 GM in DEXTROSE 5%-WATER - 50 ML IVPB SCH (10:00)
[2019-09-28] MEDS: LETROZOLE 2.5 MG TABLET (FP) PO SCH (10:03)
[2019-09-28] MEDS: POLYETHYLENE GLYCOL 3350 119 GM BTL PO SCH ×2 (10:03→21:47)
[2019-09-28] MEDS: CARVEDILOL 25 MG TABLET (FP) PO SCH ×2 (10:03→21:46)
[2019-09-28] MEDS: APIXABAN 2.5 MG TABLET PO SCH ×2 (10:03→21:46)
[2019-09-28] MEDS: ERTAPENEM SODIUM 0.5 GM in SODIUM CHLORIDE 50 ML IVPB SCH (10:03)
[2019-09-28] MEDS: PANTOPRAZOLE 40 MG TABLET PO SCH (10:03)
[2019-09-28 10:17] LABS: ANISOCYTOSIS 2+; MACROCYTOSIS 2+; OVALOCYTE 1+
[2019-09-28 11:05] LABS: PLATELET ESTIMATE ADEQUATE
--- NOTE | 2019-09-28 12:05 | PN ---
Progress Note (short form) - Note Progress Note: cc: edema HPI: no chest pain, palps, dizziness, dyspnea Home Medications Medication Instructions Recorded Calcium Carbonate/Vitamin D3 1 each PO BID 06/23/18 [Calcium 500-Vit D3 400 Tablet] Carvedilol [Coreg -] 25 mg PO BID 06/23/18 Polyethylene Glycol 3350 [Miralax 17 gm PO DAILY PRN bottle 04/27/19 119 gm Btl -] Amlodipine Besylate [Norvasc -] 5 mg PO DAILY 08/12/19 Apixaban [Eliquis] 2.5 mg PO BID 08/12/19 Furosemide [Lasix -] 80 mg PO BID 08/12/19 Isosorbide Mononitrate [Imdur -] 60 mg PO DAILY 08/12/19 Sitagliptin Phosphate [Januvia] 25 mg PO DAILY 08/12/19 hydrALAZINE HCL [Apresoline -] 10 mg PO TID 08/12/19 Insulin Glargine,Hum.rec.anlog 25 unit SQ DAILY 09/24/19 [Lantus] Insulin Lispro [Humalog] 100 unit SQ PRN 09/24/19 Letrozole [Femara] 2.5 mg PO DAILY 09/24/19 Omeprazole 20 mg PO DAILY 09/24/19 Pantoprazole Sodium [Protonix] 40 mg PO DAILY 09/24/19 Simethicone 125 mg PO Q4H PRN 09/24/19 Multivitamin [One-Daily 1 each PO DAILY 09/25/19 Multi-Vitamin] Ondansetron [Zofran -] 4 mg PO Q4H PRN 09/25/19 Oxycodone HCl/Acetaminophen 1 tab PO Q12H PRN 09/25/19 [Percocet 5-325 mg Tablet] Diclofenac Sodium 2 gm TP DAILY 09/26/19 Vital Signs Period Temp Pulse Resp BP Sys/Hernandez Pulse Ox Last 24 Hr 97.3 F-98.8 F 84-103 20-20 104-136/54-73 95-100 nad no jvd dec bs bases nl eff aao3 1+ le edema bl, no c/c irreg s1s2 no mrg abd nt nd pos bs no jaundice diaphoresis cxr: chf ecg: afib, rate ok, no ischemic changes tele: afib, rate ok echo 03/2019 nl LV function, mild MR, mild TR, PASP at least 49 mmHg IMP/REC: Acute diastolic heart failure exacerbation: - recent echo nl LV function - no signs acs - lasix held, received aldactone yesterday PM - renal following - baseline creat is 2-2.5 HTN: - cont coreg - if bp stable, resume home hydralazine and imdur next crow on CKD: - Baseline creat from last admission is 2-2.5, elevated now, likely cardiorenal - renal consulting PAF: -cont coreg for rate control -cont eliquis low dose liver mass: -heme/onc following
--- NOTE | 2019-09-28 12:26 | PN ---
Progress Note, Physician History of Present Illness: Pt seen and examined at bedside. She is awake and alert. She feels that her breathing is a little better today. - Current Medication List Current Medications: Active Medications Apixaban (Eliquis -) 2.5 mg PO BID [facility] Last Admin: 09/28/19 10:03 Dose: 2.5 mg Documented by: Carvedilol (Coreg -) 25 mg PO BID [facility] Last Admin: 09/28/19 10:03 Dose: 25 mg Documented by: Docusate Sodium (Colace -) 300 mg PO HS [facility] Last Admin: 09/27/19 21:39 Dose: Not Given Documented by: Furosemide (Lasix Injection -) 40 mg IVPUSH BID@0600,1400 [facility] Last Admin: 09/27/19 06:16 Dose: 40 mg Documented by: Ertapenem 0.5 gm/ Sodium (Chloride) 50 mls @ 100 mls/hr IVPB DAILY [facility] Last Admin: 09/28/19 10:03 Dose: 100 mls/hr Documented by: Insulin Aspart (Novolog Vial Sliding Scale -) 1 vial SQ ACHS [facility]; Protocol Last Admin: 09/28/19 06:10 Dose: 2 units Documented by: Letrozole (Femara -) 2.5 mg PO DAILY [facility] Last Admin: 09/28/19 10:03 Dose: 2.5 mg Documented by: Levothyroxine Sodium (Synthroid -) 100 mcg PO ACBK [facility] Last Admin: 09/28/19 06:11 Dose: 100 mcg Documented by: Miscellaneous (Lidoderm Patch Removal) 1 each MC DAILY@2200 [facility] Last Admin: 09/27/19 21:39 Dose: 1 each Documented by: Ptnt's Own Med ( Diclofenac Sodium [ Diclofenac Sodium] 2 Gm) 2 gm TP Q8H PRN PRN Reason: PAIN Last Admin: 09/27/19 16:52 Dose: 2 gm Documented by: Oxycodone HCl (Roxicodone -) 5 mg PO Q6H PRN PRN Reason: PAIN LEVEL 7 - 10 Last Admin: 09/25/19 23:51 Dose: 5 mg Documented by: Pantoprazole Sodium (Protonix -) 40 mg PO DAILY [facility] Last Admin: 09/28/19 10:03 Dose: 40 mg Documented by: Polyethylene Glycol (Miralax (For Daily Use) -) 17 gm PO BID [facility] Last Admin: 09/28/19 10:03 Dose: Not Given Documented by: Simethicone (Mylicon -) 80 mg PO Q4H PRN PRN Reason: GAS Last Admin: 09/26/19 13:16 Dose: 80 mg Documented by: - Objective Vital Signs: Vital Signs Temperature 97.3 F L 09/28/19 10:00 Pulse Rate 89 09/28/19 10:00 Respiratory Rate 20 09/28/19 10:00 Blood Pressure 128/61 09/28/19 10:00 O2 Sat by Pulse Oximetry (%) 100 09/28/19 09:00 Constitutional: Yes: Calm Eyes: Yes: Conjunctiva Clear HENT: Yes: Atraumatic Neck: Yes: Supple Cardiovascular: Yes: S1, S2 Respiratory: Yes: CTA Bilaterally, On Nasal O2 Gastrointestinal: Yes: Soft Genitourinary: Yes: WNL Edema: Yes Edema: LLE: 2+, RLE: 2+ Neurological: Yes: Oriented Psychiatric: Yes: Oriented Labs: CBC, BMP 09/28/19 05:22 09/28/19 06:10 INR, PTT INR 1.69 (0.83-1.09) H 09/24/19 16:49 Assessment/Plan Current Medications Generic Name Dose Route Start Last Admin Trade Name Meena PRN Reason Stop Dose Admin Apixaban 2.5 mg 09/24/19 23:00 09/28/19 10:03 Eliquis - PO 2.5 mg BID [facility] Administration Carvedilol 25 mg 09/26/19 11:28 09/28/19 10:03 Coreg - PO 25 mg BID [facility] Administration Docusate Sodium 300 mg 09/25/19 22:00 09/27/19 21:39 Colace - PO Not Given HS [facility] Furosemide 40 mg 09/26/19 14:00 09/27/19 06:16 Lasix Injection - IVPUSH 40 mg BID@0600,1400 [facility] Administration Ertapenem 0.5 gm/ Sodium 50 mls @ 100 mls/hr 09/27/19 14:00 09/28/19 10:03 Chloride IVPB 100 mls/hr DAILY [facility] Administration Insulin Aspart 1 vial 09/25/19 07:00 09/28/19 06:10 Novolog Vial Sliding Scale - SQ 2 units ACHS [facility] Administration Protocol Letrozole 2.5 mg 06/20/20 10:00 09/28/19 10:03 Femara - PO 2.5 mg DAILY [facility] Administration Levothyroxine Sodium 100 mcg 09/25/19 07:00 09/28/19 06:11 Synthroid - PO 100 mcg ACBK [facility] Administration Miscellaneous 1 each 09/24/19 22:00 09/27/19 21:39 Lidoderm Patch Removal MC 1 each DAILY@2200 [facility] Administration Ptnt's Own Med ( 2 gm 09/26/19 14:13 09/27/19 16:52 Diclofenac Sodium [ TP 2 gm Diclofenac Sodium] 2 Q8H PRN Administration Gm) PAIN Oxycodone HCl 5 mg 09/24/19 22:55 09/25/19 23:51 Roxicodone - PO 5 mg Q6H PRN Administration PAIN LEVEL 7 - 10 Pantoprazole Sodium 40 mg 09/26/19 10:00 09/28/19 10:03 Protonix - PO 40 mg DAILY [facility] Administration Polyethylene Glycol 17 gm 09/24/19 23:00 09/28/19 10:03 Miralax (For Daily Use) - PO Not Given BID [facility] Simethicone 80 mg 09/25/19 15:59 09/26/19 13:16 Mylicon - PO 80 mg Q4H PRN Administration GAS Impression 1. proteinuria 2. hypothyroid 3. HTN 4. DM 5. fluid overload 6. breast cancer 7. anemia 8. CKD 9. CHF 10. hyponatremia 11. 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
[2019-09-28] MEDS ORDERED: FAMOTIDINE 20 MG TABLET PO ONE (15:15)
[2019-09-28] MEDS: FUROSEMIDE 40 MG/4 ML INJECTABLE VIAL IVPUSH SCH (15:50)
--- NOTE | 2019-09-28 16:26 | PN ---
Physical Exam: SUBJECTIVE: Patient seen and examined. She reports breathing is overall improved but still has difficulty when she slides down in the bed. She also reports generalized itching that has been present the last few weeks with intense itching of ears. OBJECTIVE: Vital Signs Period Temp Pulse Resp BP Sys/Hernandez Pulse Ox Last 24 Hr 97.3 F-98.8 F 83-103 18-20 104-134/54-68 95-100 GENERAL: The patient is awake, alert, and fully oriented, in no acute distress. HEAD: Normal with no signs of trauma. EYES: PERRL, extraocular movements intact, conjunctiva clear. ENT: Ears normal, nares patent, moist mucous membranes. No erythema of ear canals, normal TMs, no bulging. NECK: Trachea midline. LUNGS: Clear to auscultation bilaterally, no wheezes, no crackles anteriorly or laterally. HEART: Regular rate and rhythm, no murmur. ABDOMEN: Soft, diffusely tender, nondistended, normoactive bowel sounds. EXTREMITIES: Warm, well-perfused, +1 pitting edema b/l LE below knee, dry, flaky skin left monique. NEUROLOGICAL: Cranial nerves II through XII grossly intact. Normal speech. PSYCH: Normal mood, normal affect. SKIN: Warm, dry, normal turgor. Laboratory Results - last 24 hr 09/24/19 09/27/19 09/27/19 20:54 16:39 21:41 WBC RBC Hgb Hct MCV MCH MCHC RDW Plt Count MPV Absolute Neuts (auto) Neutrophils % Neutrophils % (Manual) Band Neutrophils % Lymphocytes % Lymphocytes % (Manual) Monocytes % Monocytes % (Manual) Eosinophils % Eosinophils % (Manual) Basophils % Basophils % (Manual) Myelocytes % (Man) Promyelocytes % (Man) Blast Cells % (Manual) Nucleated RBC % Metamyelocytes Hypochromia Platelet Estimate Polychromasia Poikilocytosis Anisocytosis Microcytosis Macrocytosis Ovalocytes Sodium Potassium Chloride Carbon Dioxide Anion Gap BUN Creatinine Est GFR (CKD-EPI)AfAm Est GFR (CKD-EPI)NonAf POC Glucometer 136 176 Random Glucose Calcium Phosphorus Magnesium Total Bilirubin AST ALT Alkaline Phosphatase Total Protein Albumin COVID-19 (TOYA) Not detected 09/28/19 09/28/19 09/28/19 05:22 05:52 06:10 WBC 16.5 H RBC 2.34 L Hgb 7.1 L Hct 22.1 L MCV 94.1 MCH 30.2 MCHC 32.1 RDW 19.8 H Plt Count 148 MPV 8.8 Absolute Neuts (auto) 12.0 H Neutrophils % 72.6 Neutrophils % (Manual) 65.4 Band Neutrophils % 0.0 Lymphocytes % 6.6 L Lymphocytes % (Manual) 10.6 D Monocytes % 13.7 H Monocytes % (Manual) 13 H Eosinophils % 6.4 H Eosinophils % (Manual) 8.6 H Basophils % 0.7 Basophils % (Manual) 0.0 Myelocytes % (Man) 1 D Promyelocytes % (Man) 0 Blast Cells % (Manual) 0 Nucleated RBC % 0 Metamyelocytes 1 D Hypochromia 1+ Platelet Estimate Adequate Polychromasia 1+ Poikilocytosis 0 Anisocytosis 2+ Microcytosis 2+ Macrocytosis 2+ Ovalocytes 1+ Sodium 131 L Potassium 4.4 Chloride 96 L Carbon Dioxide 17 L Anion Gap 18 H BUN 103.8 H Creatinine 3.0 H Est GFR (CKD-EPI)AfAm 15.33 Est GFR (CKD-EPI)NonAf 13.22 POC Glucometer 181 Random Glucose 181 H Calcium 7.8 L Phosphorus 5.1 H Magnesium 1.9 Total Bilirubin 0.4 AST 26 ALT 17 Alkaline Phosphatase 356 H Total Protein 6.7 Albumin 2.3 L COVID-19 (TOYA) 09/28/19 11:55 WBC RBC Hgb Hct MCV MCH MCHC RDW Plt Count MPV Absolute Neuts (auto) Neutrophils % Neutrophils % (Manual) Band Neutrophils % Lymphocytes % Lymphocytes % (Manual) Monocytes % Monocytes % (Manual) Eosinophils % Eosinophils % (Manual) Basophils % Basophils % (Manual) Myelocytes % (Man) Promyelocytes % (Man) Blast Cells % (Manual) Nucleated RBC % Metamyelocytes Hypochromia Platelet Estimate Polychromasia Poikilocytosis Anisocytosis Microcytosis Macrocytosis Ovalocytes Sodium Potassium Chloride Carbon Dioxide Anion Gap BUN Creatinine Est GFR (CKD-EPI)AfAm Est GFR (CKD-EPI)NonAf POC Glucometer 192 Random Glucose Calcium Phosphorus Magnesium Total Bilirubin AST ALT Alkaline Phosphatase Total Protein Albumin COVID-19 (TOYA) Active Medications Generic Name Dose Route Start Last Admin Trade Name Freq PRN Reason Stop Dose Admin Apixaban 2.5 mg 09/24/19 23:00 09/28/19 10:03 Eliquis - PO 2.5 mg BID [facility] Administration Carvedilol 25 mg 09/26/19 11:28 09/28/19 10:03 Coreg - PO 25 mg BID [facility] Administration Docusate Sodium 300 mg 09/25/19 22:00 09/27/19 21:39 Colace - PO Not Given HS [facility] Famotidine 10 mg 09/28/19 22:00 Acid Garment Sorter PO BID [facility] Furosemide 40 mg 09/26/19 14:00 09/28/19 15:50 Lasix Injection - IVPUSH 40 mg BID@0600,1400 [facility] Administration Ertapenem 0.5 gm/ Sodium 50 mls @ 100 mls/hr 09/27/19 14:00 09/28/19 10:03 Chloride IVPB 100 mls/hr DAILY [facility] Administration Insulin Aspart 1 vial 09/25/19 07:00 09/28/19 11:55 Novolog Vial Sliding Scale - SQ 2 units ACHS [facility] Administration Protocol Letrozole 2.5 mg 09/25/19 10:00 09/28/19 10:03 Femara - PO 2.5 mg DAILY [facility] Administration Levothyroxine Sodium 100 mcg 09/25/19 07:00 09/28/19 06:11 Synthroid - PO 100 mcg ACBK [facility] Administration Miscellaneous 1 each 09/24/19 22:00 09/27/19 21:39 Lidoderm Patch Removal MC 1 each DAILY@2200 [facility] Administration Ptnt's Own Med ( 2 gm 09/26/19 14:13 09/27/19 16:52 Diclofenac Sodium [ TP 2 gm Diclofenac Sodium] 2 Q8H PRN Administration Gm) PAIN Oxycodone HCl 5 mg 09/24/19 22:55 09/25/19 23:51 Roxicodone - PO 5 mg Q6H PRN Administration PAIN LEVEL 7 - 10 Pantoprazole Sodium 40 mg 09/26/19 10:00 09/28/19 10:03 Protonix - PO 40 mg DAILY [facility] Administration Polyethylene Glycol 17 gm 09/24/19 23:00 09/28/19 10:03 Miralax (For Daily Use) - PO Not Given BID [facility] Simethicone 80 mg 09/25/19 15:59 09/26/19 13:16 Mylicon - PO 80 mg Q4H PRN Administration GAS ASSESSMENT/PLAN: [address] from [facility] with pmhx of diastolic CHF, a-fib (on Eliquis), CKD, breast cancer s/p mastectomy, myelodysplasia, IDDM type 2, hypothyroidism, HLD, CVA, and GERD presents with b/l leg swelling and nausea for "weeks" and back pain for several days admitted for acute CHF exacerbation. #Acute on Chronic Diastolic CHF Exacerbation; Initial BNP 19k, b/l LE pitting e julio, bibasilar crackles -Daily weights, I/Os, fluid restriction -Cardio consulted; will continue Lasix 40 BID IV -Cont O2 NC, currently on 4L #New 4 cm L Hepatic Lobe lesion; in setting of hx of breast cancer and myelodysplasia -Onc consulted (known to Dr. Estrada) - Onc to have discussion with pt regarding further work up and goals of care; if agreeable, consider liver biopsy with IR for diagnosis #UTI; UCx +Kleb Pneumonia ESBL -Per ID, Ertapenem 0.5 gm QD #Hyponatremia; likely 2/2 fluid overload. Improving. -Fluid restriction -IV diuresis -Renal consulted #pruritis, generalized -has been present for weeks per pt -especially ears -Claritin daily -Eucerin #AMURICE on CKD; 3.0 (baseline ~2.0-2.5 per EMR) -Hold amlodipine, hydralazine to allow for pressure drop and prevent hypoperfusion from IV Lasix -serial BMPs to monitor Cr (baseline near 2) -Renal consulted -renally dose all meds #Anemia; likely multi-factorial in setting of CKD, myelodysplasia, r/o GI bleed. s/p 1 dose of IV Venofer -Hb 7.9 --> 7.1 (was 8.3 s/p 3U pRBCs last admission 08/24); Fe 31, TIBC 202, Fe sat 15, Ferr 986.2 -During last admission, was seen by heme with recommendation for outpt workup -Tranfuse PRN to maintain Hgb >7 -FOBT neg #HTN; Stable. Cont home med: Carvedilol 25 BID. Per cardio, will cont rest of home meds when BP stable #Generalized abdominal pain; 2/2 constipation vs. liver mass -Oxycodone 5mg Q6H PRN for pain, Diclofenac cream -Miralax 17 gm BID for constipation -QTc 484, try to avoid Zofran for nausea/vomiting #Back pain -no known fall -Oxycodone 5 PRN for pain -PT #Hypothyroidism; Cont home meds: Synthroid 100 #Prophylaxis DVT: Cont home Eliquis 2.5 BID FEN -Fluid restriction -monitor Na, Cl, and Cr -sodium/diabetic diet Dispo -Cont to monitor on tele -Pt has MOLST on file, however specified that she wants FULL CODE. Visit type - Emergency Visit Emergency Visit: Yes ED Registration Date: 09/24/19 Care time: The patient presented to the Emergency Department on the above date and was hospitalized for further evaluation of their emergent condition. - New Patient This patient is new to me today: Yes Date on this admission: 09/28/19 - Critical Care Critical Care patient: No ATTENDING PHYSICIAN STATEMENT I saw and evaluated the patient. I reviewed the resident's note and discussed the case with the resident. I agree with the resident's findings and plan as documented. SUBJECTIVE: OBJECTIVE: ASSESSMENT AND PLAN:
--- NOTE | 2019-09-28 16:50 | CON.HO ---
Consult - text type - Consultation Consultation Note: Pt seen. S: No new complaints O: Last Vital Signs Temp Pulse Resp BP Pulse Ox 97.8 F 83 18 127/68 100 09/28/19 14:10 09/28/19 14:10 09/28/19 14:10 09/28/19 14:10 09/28/19 09:00 09/28/19 05:22 09/28/19 06:10 Current Medications Generic Name Dose Route Start Last Admin Trade Name Freq PRN Reason Stop Dose Admin Apixaban 2.5 mg 09/24/19 23:00 09/28/19 10:03 Eliquis - PO 2.5 mg BID AMRIT Administration Carvedilol 25 mg 09/26/19 11:28 09/28/19 10:03 Coreg - PO 25 mg BID AMRIT Administration Docusate Sodium 300 mg 09/25/19 22:00 09/27/19 21:39 Colace - PO Not Given HS [facility]RIT Famotidine 10 mg 09/28/19 22:00 Acid Ornamental Brick Installer PO BID [facility] Furosemide 40 mg 09/26/19 14:00 09/28/19 15:50 Lasix Injection - IVPUSH 40 mg BID@0600,1400 [facility] Administration Ertapenem 0.5 gm/ Sodium 50 mls @ 100 mls/hr 09/27/19 14:00 09/28/19 10:03 Chloride IVPB 100 mls/hr DAILY [facility] Administration Insulin Aspart 1 vial 09/25/19 07:00 09/28/19 11:55 Novolog Vial Sliding Scale - SQ 2 units ACHS AMRIT Administration Protocol Letrozole 2.5 mg 09/25/19 10:00 09/28/19 10:03 Femara - PO 2.5 mg DAILY [facility]IT Administration Levothyroxine Sodium 100 mcg 09/25/19 07:00 09/28/19 06:11 Synthroid - PO 100 mcg ACBK [facility]IT Administration Miscellaneous 1 each 09/24/19 22:00 09/27/19 21:39 Lidoderm Patch Removal MC 1 each DAILY@2200 [facility] Administration Ptnt's Own Med ( 2 gm 09/26/19 14:13 09/27/19 16:52 Diclofenac Sodium [ TP 2 gm Diclofenac Sodium] 2 Q8H PRN Administration Gm) PAIN Oxycodone HCl 5 mg 09/24/19 22:55 09/25/19 23:51 Roxicodone - PO 5 mg Q6H PRN Administration PAIN LEVEL 7 - 10 Pantoprazole Sodium 40 mg 09/26/19 10:00 09/28/19 10:03 Protonix - PO 40 mg DAILY AMRIT Administration Polyethylene Glycol 17 gm 09/24/19 23:00 09/28/19 10:03 Miralax (For Daily Use) - PO Not Given BID [facility] Simethicone 80 mg 09/25/19 15:59 09/26/19 13:16 Mylicon - PO 80 mg Q4H PRN Administration GAS 89 y/o lady from [facility] with diastolic CHF, a-fib (on Eliquis), CKD, breast cancer s/p mastectomy, myelodysplasia (follows with Dr. Estrada) IDDM type 2, hypothyroidism, HLD, CVA, and GERD who presents with b/l leg swelling and nausea for "weeks" and back pain for "several days." Pt complained of constipation and increased urination after lasix. A CT of the abdomen revealed a 4 cm L hepatic lobe hypodense lesion suspicious for metastatic disease as well as a 2.[address] enlargement and enlarged retroperitoneal nodes. Very elevated BNP and edematous Recommend: 1) IR Consult for liver biopsy. Will need to hold Apixaban (Eliquis) for 4-5 doses before biopsy (stop 2 to 3 days before and hold on the day of procedure). 2) Peripheral Blood Flow Cytometry (and consider BMBx) to r/o MDS transformation to AML. 3) ('s team) will see on Friday. 4) Anemia, multifactorial. MDS. Renal insufficiency. R/O GI Bleed, stool guaiac. Obtain iron panel (had one dose venofer in prior admission). Hb target per Cardiology team in the setting of fluid overload and active diuresis.
--- NOTE | 2019-09-28 19:05 | PN ---
Teaching Attending Note Name of Resident: Bree Casanova ATTENDING PHYSICIAN STATEMENT I saw and evaluated the patient. I reviewed the resident's note and discussed the case with the resident. I agree with the resident's findings and plan as documented. SUBJECTIVE: total body pain. itching generalized. itching in esternal ear canal. no OSB with upright position. SOB with flat position . minimal abd pain . + constipation OBJECTIVE: NAD , awake, alert, cooperative . CV: RRR Lungs: bibasilar crackles Abd: soft, slightly distended. TTP i n RUQ and suprapubic area Ext : 2+ pitting edema on legs ASSESSMENT AND PLAN: 89 y/o lady with h/o diastolic CHF, a-fib (on Eliquis), CKD, breast cancer s/p mastectomy, myelodysplasia, IDDM type 2, hypothyroidism, HLD, CVA, and GERD who presented with SOB adn LE edema and was diagnosed with D CHF exacerbation Acute on chronic diastolic heart failure ESBL producing Klebsiealla UTI MAURICE on CKD Liver mass retroperitoneal LAP b/l adrenal nodules h/o MDS chronic normocytic anemia leukocytosis prolonged QTC hyponatremia high AG metabolic acidosis :likely due to renal failure prolonged QTC h/o A fib plan : - cont lasix - cont ertapenem - iron studies noted. - flow cytometry per heme . BM Bx per heme if indicated - patient is not aware of the liver mass, but team spoke to Md guzman Estrada. ONc is aware of having a liver mass. was being monitored and this will be d.w family and patient as out pt to decide on next step. - will d/w family tomorrow - monitor cr with diuresis - hold off transfusion for now - cont xcoreg and eliquis - cont bowel regimen
[2019-09-28] MEDS ORDERED: ONDANSETRON 4 MG/2 ML VIAL IVPB ONE (19:22)
[2019-09-28] MEDS ORDERED: MAGNESIUM SULF 50% (8.12 MEQ/2 ML-1 GM VIAL) IVPB ONE (19:23)
[2019-09-28] MEDS: LORATADINE 10 MG TABLET PO SCH (19:35)
[2019-09-28] MEDS: FAMOTIDINE 10 MG TABLET PO SCH (21:45)
[2019-09-28] MEDS: DOCUSATE SODIUM 100 MG CAPSULE (FP) PO SCH (21:46)
[2019-09-28] MEDS: SIMETHICONE 80 MG TAB.CHEW (FP) PO PRN (21:46)
[2019-09-28] MEDS: LIDOCAINE PATCH REMOVAL MC SCH (21:47)
[2019-09-28] MEDS: DICLOFENAC SODIUM TP PRN (21:48)
--- NOTE | 2019-09-28 23:46 | PN ---
Progress Note, Physician History of Present Illness: AWAKE IN CHAIR DENIES DYSURIA NO C/O FEVER/CHILLS - Current Medication List Current Medications: Active Medications Apixaban (Eliquis -) 2.5 mg PO BID [facility] Last Admin: 09/28/19 21:46 Dose: 2.5 mg Documented by: Carvedilol (Coreg -) 25 mg PO BID [facility] Last Admin: 09/28/19 21:46 Dose: 25 mg Documented by: Docusate Sodium (Colace -) 300 mg PO HS [facility] Last Admin: 09/28/19 21:46 Dose: 300 mg Documented by: Famotidine (Acid Market Garden Worker) 10 mg PO BID [facility] Last Admin: 09/28/19 21:45 Dose: 10 mg Documented by: Furosemide (Lasix Injection -) 40 mg IVPUSH BID@0600,1400 [facility] Last Admin: 09/28/19 15:50 Dose: 40 mg Documented by: Ertapenem 0.5 gm/ Sodium (Chloride) 50 mls @ 100 mls/hr IVPB DAILY [facility] Last Admin: 09/28/19 10:03 Dose: 100 mls/hr Documented by: Insulin Aspart (Novolog Vial Sliding Scale -) 1 vial SQ ACHS [facility]; Protocol Last Admin: 09/28/19 22:50 Dose: 2 units Documented by: Letrozole (Femara -) 2.5 mg PO DAILY [facility] Last Admin: 09/28/19 10:03 Dose: 2.5 mg Documented by: Levothyroxine Sodium (Synthroid -) 100 mcg PO ACBK [facility] Last Admin: 09/28/19 06:11 Dose: 100 mcg Documented by: Loratadine (Claritin -) 10 mg PO DAILY [facility] Last Admin: 09/28/19 19:35 Dose: 10 mg Documented by: Miscellaneous (Lidoderm Patch Removal) 1 each MC DAILY@2200 [facility] Last Admin: 09/28/19 21:47 Dose: 1 each Documented by: Ptnt's Own Med ( Diclofenac Sodium [ Diclofenac Sodium] 2 Gm) 2 gm TP Q8H PRN PRN Reason: PAIN Last Admin: 09/28/19 21:48 Dose: 2 gm Documented by: Oxycodone HCl (Roxicodone -) 5 mg PO Q6H PRN PRN Reason: PAIN LEVEL 7 - 10 Last Admin: 09/25/19 23:51 Dose: 5 mg Documented by: Pantoprazole Sodium (Protonix -) 40 mg PO DAILY [facility] Last Admin: 09/28/19 10:03 Dose: 40 mg Documented by: Polyethylene Glycol (Miralax (For Daily Use) -) 17 gm PO BID [facility] Last Admin: 09/28/19 21:47 Dose: 17 gm Documented by: Simethicone (Mylicon -) 80 mg PO Q4H PRN PRN Reason: GAS Last Admin: 09/28/19 21:46 Dose: 80 mg Documented by: - Objective Vital Signs: Vital Signs Temperature 97.7 F 09/28/19 21:00 Pulse Rate 89 09/28/19 21:00 Respiratory Rate 18 09/28/19 21:00 Blood Pressure 138/68 09/28/19 21:00 O2 Sat by Pulse Oximetry (%) 100 09/28/19 21:00 Constitutional: Yes: No Distress Eyes: Yes: Conjunctiva Clear Cardiovascular: Yes: Regular Rate and Rhythm, S1, S2 Respiratory: Yes: CTA Bilaterally Gastrointestinal: Yes: Normal Bowel Sounds, Soft Edema: Yes Labs: CBC, BMP 09/28/19 05:22 09/28/19 06:10 INR, PTT INR 1.69 (0.83-1.09) H 09/24/19 16:49 Assessment/Plan CHF UTI ESBL LEUKOCYTOSIS AZOTEMIA CONTINUE ERTAPENEM 500MG QD CONTACT PRECAUTIONS
[2019-09-29] MEDS: LEVOTHYROXINE NA 100 MCG TABLET (FP) PO SCH (06:22)
[2019-09-29] MEDS: FUROSEMIDE 40 MG/4 ML INJECTABLE VIAL IVPUSH SCH ×2 (06:22→14:21)
[2019-09-29] MEDS: INSULIN SLIDING SCALE (NOVOLOG) 1 VIAL SQ SCH ×4 (06:34→22:07)
[2019-09-29 07:26] LABS: BASO % 0.9 % (0-2.0); EOS % 8.7 % (0-4.5); HEMATOCRIT 22.8 % (32.4-45.2); HEMOGLOBIN 7.2 GM/dL (10.7-15.3); LYMPH % 7.4 % (8-40); MCH 30.2 pg (25.7-33.7); MCHC 31.8 g/dl (32.0-36.0); MEAN CELL VOLUME 95.1 fl (80-96); MEAN PLT VOLUME 8.1 fl (7.5-11.1); PLATELET COUNT 128 K/MM3 (134-434); RDW 19.8 % (11.6-15.6); WHITE BLOOD COUNT 15.5 K/mm3 (4.0-10.0)
[2019-09-29 07:41] LABS: ALBUMIN 2.3 g/dl (3.4-5.0); BILIRUBIN,TOTAL 0.7 mg/dL (0.2-1); CALCIUM 8.2 mg/dL (8.5-10.1); MAGNESIUM 2.3 mg/dL (1.8-2.4); PHOSPHOROUS 5.2 mg/dL (2.5-4.9); POTASSIUM 4.2 mmol/L (3.5-5.1); TOT PROT 6.7 g/dl (6.4-8.2)
[2019-09-29 08:04] LABS: BLOOD UREA NITROGEN 105.8 mg/dL (7-18)
[2019-09-29] MEDS: APIXABAN 2.5 MG TABLET PO SCH (09:51)
[2019-09-29] MEDS: LETROZOLE 2.5 MG TABLET (FP) PO SCH (09:51)
[2019-09-29] MEDS: LORATADINE 10 MG TABLET PO SCH (09:51)
[2019-09-29] MEDS: CARVEDILOL 25 MG TABLET (FP) PO SCH ×2 (09:51→21:58)
[2019-09-29] MEDS: PANTOPRAZOLE 40 MG TABLET PO SCH (09:51)
[2019-09-29] MEDS: FAMOTIDINE 10 MG TABLET PO SCH ×2 (09:51→21:58)
[2019-09-29] MEDS: POLYETHYLENE GLYCOL 3350 119 GM BTL PO SCH ×2 (09:51→21:59)
[2019-09-29] MEDS: ERTAPENEM SODIUM 0.5 GM in SODIUM CHLORIDE 50 ML IVPB SCH (09:56)
[2019-09-29 11:38] LABS: ANISOCYTOSIS 1+; MACROCYTOSIS 1+; PLATELET ESTIMATE DECREASED
--- NOTE | 2019-09-29 12:27 | PN ---
Progress Note, Physician History of Present Illness: Pt seen and examined at bedside. She denies shortness of breath at rest. She feels her edema is improving. - Current Medication List Current Medications: Active Medications Apixaban (Eliquis -) 2.5 mg PO BID [facility] Last Admin: 09/29/19 09:51 Dose: 2.5 mg Documented by: Carvedilol (Coreg -) 25 mg PO BID [facility] Last Admin: 09/29/19 09:51 Dose: 25 mg Documented by: Docusate Sodium (Colace -) 300 mg PO HS [facility] Last Admin: 09/28/19 21:46 Dose: 300 mg Documented by: Famotidine (Acid Payroll Benefits Administrator) 10 mg PO BID [facility] Last Admin: 09/29/19 09:51 Dose: 10 mg Documented by: Furosemide (Lasix Injection -) 40 mg IVPUSH BID@0600,1400 [facility] Last Admin: 09/29/19 06:22 Dose: 40 mg Documented by: Ertapenem 0.5 gm/ Sodium (Chloride) 50 mls @ 100 mls/hr IVPB DAILY [facility] Last Admin: 09/29/19 09:56 Dose: 100 mls/hr Documented by: Insulin Aspart (Novolog Vial Sliding Scale -) 1 vial SQ ACHS [facility]; Protocol Last Admin: 09/29/19 11:51 Dose: 2 units Documented by: Letrozole (Femara -) 2.5 mg PO DAILY [facility] Last Admin: 09/29/19 09:51 Dose: 2.5 mg Documented by: Levothyroxine Sodium (Synthroid -) 100 mcg PO ACBK [facility] Last Admin: 09/29/19 06:22 Dose: 100 mcg Documented by: Loratadine (Claritin -) 10 mg PO DAILY [facility] Last Admin: 09/29/19 09:51 Dose: 10 mg Documented by: Miscellaneous (Lidoderm Patch Removal) 1 each MC DAILY@2200 [facility] Last Admin: 09/28/19 21:47 Dose: 1 each Documented by: Ptnt's Own Med ( Diclofenac Sodium [ Diclofenac Sodium] 2 Gm) 2 gm TP Q8H PRN PRN Reason: PAIN Last Admin: 09/28/19 21:48 Dose: 2 gm Documented by: Oxycodone HCl (Roxicodone -) 5 mg PO Q6H PRN PRN Reason: PAIN LEVEL 7 - 10 Last Admin: 09/25/19 23:51 Dose: 5 mg Documented by: Pantoprazole Sodium (Protonix -) 40 mg PO DAILY [facility] Last Admin: 09/29/19 09:51 Dose: 40 mg Documented by: Polyethylene Glycol (Miralax (For Daily Use) -) 17 gm PO BID [facility] Last Admin: 09/29/19 09:51 Dose: Not Given Documented by: Simethicone (Mylicon -) 80 mg PO Q4H PRN PRN Reason: GAS Last Admin: 09/28/19 21:46 Dose: 80 mg Documented by: - Objective Vital Signs: Vital Signs Temperature 98.1 F 09/29/19 08:35 Pulse Rate 77 09/29/19 08:35 Respiratory Rate 20 09/29/19 08:35 Blood Pressure 124/77 09/29/19 08:35 O2 Sat by Pulse Oximetry (%) 97 09/29/19 08:35 Constitutional: Yes: Calm Eyes: Yes: Conjunctiva Clear HENT: Yes: Atraumatic Cardiovascular: Yes: S1, S2 Respiratory: Yes: On Nasal O2 Gastrointestinal: Yes: Soft Genitourinary: Yes: Incontinence Musculoskeletal: Yes: WNL Edema: Yes Edema: LLE: 1+, RLE: 1+ Neurological: Yes: Oriented Psychiatric: Yes: Oriented Labs: CBC, BMP 09/29/19 05:52 09/29/19 05:52 INR, PTT INR 1.69 (0.83-1.09) H 09/24/19 16:49 Assessment/Plan Current Medications Generic Name Dose Route Start Last Admin Trade Name Freq PRN Reason Stop Dose Admin Apixaban 2.5 mg 09/24/19 23:00 09/29/19 09:51 Eliquis - PO 2.5 mg BID [facility] Administration Carvedilol 25 mg 09/26/19 11:28 09/29/19 09:51 Coreg - PO 25 mg BID [facility] Administration Docusate Sodium 300 mg 09/25/19 22:00 09/28/19 21:46 Colace - PO 300 mg HS [facility] Administration Famotidine 10 mg 09/28/19 22:00 09/29/19 09:51 Acid Payroll Benefits Administrator PO 10 mg BID [facility] Administration Furosemide 40 mg 09/26/19 14:00 09/29/19 06:22 Lasix Injection - IVPUSH 40 mg BID@0600,1400 [facility] Administration Ertapenem 0.5 gm/ Sodium 50 mls @ 100 mls/hr 09/27/19 14:00 09/29/19 09:56 Chloride IVPB 100 mls/hr DAILY [facility] Administration Insulin Aspart 1 vial 09/25/19 07:00 09/29/19 11:51 Novolog Vial Sliding Scale - SQ 2 units ACHS [facility] Administration Protocol Letrozole 2.5 mg 09/25/19 10:00 09/29/19 09:51 Femara - PO 2.5 mg DAILY [facility] Administration Levothyroxine Sodium 100 mcg 09/25/19 07:00 09/29/19 06:22 Synthroid - PO 100 mcg ACBK [facility] Administration Loratadine 10 mg 09/28/19 18:00 09/29/19 09:51 Claritin - PO 10 mg DAILY [facility] Administration Miscellaneous 1 each 09/24/19 22:00 09/28/19 21:47 Lidoderm Patch Removal MC 1 each DAILY@2200 [facility] Administration Ptnt's Own Med ( 2 gm 09/26/19 14:13 09/28/19 21:48 Diclofenac Sodium [ TP 2 gm Diclofenac Sodium] 2 Q8H PRN Administration Gm) PAIN Oxycodone HCl 5 mg 09/24/19 22:55 09/25/19 23:51 Roxicodone - PO 5 mg Q6H PRN Administration PAIN LEVEL 7 - 10 Pantoprazole Sodium 40 mg 09/26/19 10:00 09/29/19 09:51 Protonix - PO 40 mg DAILY [facility] Administration Polyethylene Glycol 17 gm 09/24/19 23:00 09/29/19 09:51 Miralax (For Daily Use) - PO Not Given BID [facility] Simethicone 80 mg 09/25/19 15:59 09/28/19 21:46 Mylicon - PO 80 mg Q4H PRN Administration GAS Impression 1. proteinuria 2. hypothyroid 3. HTN 4. DM 5. fluid overload 6. breast cancer 7. anemia 8. CKD 9. CHF 10. hyponatremia 11. hypokalemia Plan - cont lasix - monitor daily weights - oncology workup in progress - will hold off aldactone for now - monitor mercantile agent - daily weights
[2019-09-29] MEDS ORDERED: ISOSORBIDE MONONITRATE 60 MG TAB.SR.24H (FP) PO ONE (13:38)
--- NOTE | 2019-09-29 13:39 | PN ---
Progress Note (short form) - Note Progress Note: cc: edema HPI: no chest pain, palps, dizziness, dyspnea Current Medications Generic Name Dose Route Start Last Admin Trade Name Freq PRN Reason Stop Dose Admin Apixaban 2.5 mg 09/24/19 23:00 09/29/19 09:51 Eliquis - PO 2.5 mg BID AMRIT Administration Carvedilol 25 mg 09/26/19 11:28 09/29/19 09:51 Coreg - PO 25 mg BID AMRIT Administration Docusate Sodium 300 mg 09/25/19 22:00 09/28/19 21:46 Colace - PO 300 mg HS AMRIT Administration Famotidine 10 mg 09/28/19 22:00 09/29/19 09:51 Acid Applied Biology Professor PO 10 mg BID AMRIT Administration Furosemide 40 mg 09/26/19 14:00 09/29/19 06:22 Lasix Injection - IVPUSH 40 mg BID@0600,1400 AM[facility]IT Administration Ertapenem 0.5 gm/ Sodium 50 mls @ 100 mls/hr 09/27/19 14:00 09/29/19 09:56 Chloride IVPB 100 mls/hr DAILY [facility]IT Administration Insulin Aspart 1 vial 09/25/19 07:00 09/29/19 11:51 Novolog Vial Sliding Scale - SQ 2 units ACHS AMRIT Administration Protocol Letrozole 2.5 mg 09/25/19 10:00 09/29/19 09:51 Femara - PO 2.5 mg DAILY [facility]IT Administration Levothyroxine Sodium 100 mcg 09/25/19 07:00 09/29/19 06:22 Synthroid - PO 100 mcg ACBK [facility]IT Administration Loratadine 10 mg 09/28/19 18:00 09/29/19 09:51 Claritin - PO 10 mg DAILY [facility]IT Administration Miscellaneous 1 each 09/24/19 22:00 09/28/19 21:47 Lidoderm Patch Removal MC 1 each DAILY@2200 [facility] Administration Ptnt's Own Med ( 2 gm 09/26/19 14:13 09/28/19 21:48 Diclofenac Sodium [ TP 2 gm Diclofenac Sodium] 2 Q8H PRN Administration Gm) PAIN Oxycodone HCl 5 mg 09/24/19 22:55 09/25/19 23:51 Roxicodone - PO 5 mg Q6H PRN Administration PAIN LEVEL 7 - 10 Pantoprazole Sodium 40 mg 09/26/19 10:00 09/29/19 09:51 Protonix - PO 40 mg DAILY [facility]IT Administration Polyethylene Glycol 17 gm 09/24/19 23:00 09/29/19 09:51 Miralax (For Daily Use) - PO Not Given BID [facility]IT Simethicone 80 mg 09/25/19 15:59 09/28/19 21:46 Mylicon - PO 80 mg Q4H PRN Administration GAS Vital Signs Period Temp Pulse Resp BP Sys/Hernandez Pulse Ox Last 24 Hr 97.6 F-98.1 F 77-89 16-20 122-138/57-77 97-100 nad no jvd dec bs bases nl eff aao3 1+ le edema bl, no c/c irreg s1s2 no mrg abd nt nd pos bs no jaundice diaphoresis cxr: chf ecg: afib, rate ok, no ischemic changes tele: afib, rate ok echo 03/2019 nl LV function, mild MR, mild TR, PASP at least 49 mmHg IMP/REC: Acute diastolic heart failure exacerbation: - recent echo nl LV function - no signs acs - continue lasix, holding aldactone today - d/w renal - baseline creat is 2-2.5 HTN: - cont coreg - resume home hydralazine and imdur crow on CKD: - Baseline creat from last admission is 2-2.5, elevated now, likely cardiorenal - renal following PAF: -cont coreg for rate control -cont eliquis low dose liver mass: -heme/onc following
[2019-09-29] MEDS: hydrALAZINE HCL 10 MG TABLET PO SCH ×2 (14:20→21:58)
[2019-09-29] MEDS: oxyCODONE HCL 5 MG TABLET PO PRN (15:45)
[2019-09-29] MEDS: LACTOBACILLUS ACIDOPHILUS 1 TABLET PO SCH (15:46)
[2019-09-29] MEDS: DICLOFENAC SODIUM TP PRN (17:19)
--- NOTE | 2019-09-29 17:51 | PN ---
Physical Exam: SUBJECTIVE: Patient seen and examined. She reports breathing is better with intermittently taking off NC. Good PO intake. Decreased ear and overall itching after Claritin. OBJECTIVE: Vital Signs Period Temp Pulse Resp BP Sys/Hernandez Pulse Ox Last 24 Hr 97.7 F-98.1 F 77-89 16-20 124-140/61-77 97-100 GENERAL: The patient is awake, alert, and fully oriented, in no acute distress. HEAD: Normal with no signs of trauma. EYES: PERRL, extraocular movements intact, conjunctiva clear. ENT: Ears normal, nares patent, moist mucous membranes. NECK: Trachea midline. LUNGS: Clear to auscultation bilaterally, no wheezes, bibasilar crackles. HEART: Regular rate and rhythm, no murmur. ABDOMEN: Soft, diffusely tender, nondistended, normoactive bowel sounds. EXTREMITIES: Warm, well-perfused, +1 pitting edema b/l LE below knee, dry, flaky skin left monique. NEUROLOGICAL: Cranial nerves II through XII grossly intact. Normal speech. PSYCH: Normal mood, normal affect. SKIN: Warm, dry, normal turgor. Laboratory Results - last 24 hr 09/28/19 09/29/19 09/29/19 21:52 05:52 05:52 WBC 15.5 H RBC 2.40 L Hgb 7.2 L Hct 22.8 L MCV 95.1 MCH 30.2 MCHC 31.8 L RDW 19.8 H Plt Count 128 L MPV 8.1 Absolute Neuts (auto) 11.0 H Neutrophils % 71.0 Neutrophils % (Manual) 63.0 Band Neutrophils % 0.0 Lymphocytes % 7.4 L Lymphocytes % (Manual) 13.0 D Monocytes % 12.0 H Monocytes % (Manual) 4 Eosinophils % 8.7 H Eosinophils % (Manual) 10.0 H Basophils % 0.9 Basophils % (Manual) 0.0 Myelocytes % (Man) 7 H D Promyelocytes % (Man) 0 Blast Cells % (Manual) 0 Nucleated RBC % 0 Metamyelocytes 3 H D Hypochromia 0 Platelet Estimate Decreased Polychromasia 0 Poikilocytosis 0 Basophilic Stippling 1+ Anisocytosis 1+ Microcytosis 1+ Macrocytosis 1+ Sodium 132 L Potassium 4.2 Chloride 95 L Carbon Dioxide 23 Anion Gap 14 BUN 105.8 H* Creatinine 3.0 H Est GFR (CKD-EPI)AfAm 15.33 Est GFR (CKD-EPI)NonAf 13.22 POC Glucometer 164 Random Glucose 151 H Calcium 8.2 L Phosphorus 5.2 H Magnesium 2.3 Total Bilirubin 0.7 AST 17 ALT 15 Alkaline Phosphatase 375 H Total Protein 6.7 Albumin 2.3 L 09/29/19 09/29/19 09/29/19 06:27 11:05 17:12 WBC RBC Hgb Hct MCV MCH MCHC RDW Plt Count MPV Absolute Neuts (auto) Neutrophils % Neutrophils % (Manual) Band Neutrophils % Lymphocytes % Lymphocytes % (Manual) Monocytes % Monocytes % (Manual) Eosinophils % Eosinophils % (Manual) Basophils % Basophils % (Manual) Myelocytes % (Man) Promyelocytes % (Man) Blast Cells % (Manual) Nucleated RBC % Metamyelocytes Hypochromia Platelet Estimate Polychromasia Poikilocytosis Basophilic Stippling Anisocytosis Microcytosis Macrocytosis Sodium Potassium Chloride Carbon Dioxide Anion Gap BUN Creatinine Est GFR (CKD-EPI)AfAm Est GFR (CKD-EPI)NonAf POC Glucometer 154 196 235 Random Glucose Calcium Phosphorus Magnesium Total Bilirubin AST ALT Alkaline Phosphatase Total Protein Albumin Active Medications Generic Name Dose Route Start Last Admin Trade Name Freq PRN Reason Stop Dose Admin Apixaban 2.5 mg 09/24/19 23:00 09/29/19 09:51 Eliquis - PO 2.5 mg BID AMRIT Administration Carvedilol 25 mg 09/26/19 11:28 09/29/19 09:51 Coreg - PO 25 mg BID AMRIT Administration Docusate Sodium 300 mg 09/25/19 22:00 09/28/19 21:46 Colace - PO 300 mg HS AMRIT Administration Famotidine 10 mg 09/28/19 22:00 09/29/19 09:51 Acid Cleaner Carpet And Upholstery PO 10 mg BID AMRIT Administration Furosemide 40 mg 09/26/19 14:00 09/29/19 14:21 Lasix Injection - IVPUSH 40 mg BID@0600,1400 [facility] Administration Hydralazine HCl 10 mg 09/29/19 14:00 09/29/19 14:20 Apresoline - PO 10 mg TID AMRIT Administration Ertapenem 0.5 gm/ Sodium 50 mls @ 100 mls/hr 09/27/19 14:00 09/29/19 09:56 Chloride IVPB 100 mls/hr DAILY [facility]IT Administration Insulin Aspart 1 vial 09/25/19 07:00 09/29/19 17:18 Novolog Vial Sliding Scale - SQ 4 units ACHS AMRIT Administration Protocol Lactobacillus Acidophilus 1 tab 09/29/19 14:30 09/29/19 15:46 Bacid - PO 1 tab DAILY [facility]IT Administration Letrozole 2.5 mg 09/25/19 10:00 09/29/19 09:51 Femara - PO 2.5 mg DAILY [facility]IT Administration Levothyroxine Sodium 100 mcg 09/25/19 07:00 09/29/19 06:22 Synthroid - PO 100 mcg ACBK [facility]IT Administration Loratadine 10 mg 09/28/19 18:00 09/29/19 09:51 Claritin - PO 10 mg DAILY [facility]IT Administration Miscellaneous 1 each 09/24/19 22:00 09/28/19 21:47 Lidoderm Patch Removal MC 1 each DAILY@2200 [facility] Administration Ptnt's Own Med ( 2 gm 09/26/19 14:13 09/29/19 17:19 Diclofenac Sodium [ TP 2 gm Diclofenac Sodium] 2 Q8H PRN Administration Gm) PAIN Oxycodone HCl 5 mg 09/24/19 22:55 09/29/19 15:45 Roxicodone - PO 5 mg Q6H PRN Administration PAIN LEVEL 7 - 10 Pantoprazole Sodium 40 mg 09/26/19 10:00 09/29/19 09:51 Protonix - PO 40 mg DAILY AMRIT Administration Polyethylene Glycol 17 gm 09/24/19 23:00 09/29/19 09:51 Miralax (For Daily Use) - PO Not Given BID AMRIT Simethicone 80 mg 09/25/19 15:59 09/28/19 21:46 Mylicon - PO 80 mg Q4H PRN Administration GAS ASSESSMENT/PLAN: 89F from [facility] with pmhx of diastolic CHF, a-fib (on Eliquis), CKD, breast cancer s/p mastectomy, myelodysplasia, IDDM type 2, hypothyroidism, HLD, CVA, and GERD presents with b/l leg swelling and nausea for "weeks" and back pain for several days admitted for acute CHF exacerbation. #Acute on Chronic Diastolic CHF Exacerbation; Initial BNP 19k, b/l LE pitting edema, bibasilar crackles -Daily weights, I/Os, fluid restriction -Cardio consulted; will continue Lasix 40 BID IV -Cont O2 NC, currently on 2L #New 4 cm L Hepatic Lobe lesion; in setting of hx of breast cancer and myelodysplasia -Onc consulted (known to Dr. Estrada) - Onc to have discussion with pt regarding further work up and goals of care -pt wants biopsy -IR consult #UTI; UCx +Kleb Pneumonia ESBL -Per ID, Ertapenem 0.5 gm QD #Hyponatremia; likely 2/2 fluid overload. Improving. -Fluid restriction -IV diuresis -Renal consulted #pruritis, generalized -has been present for weeks per pt -especially ears -Claritin daily -Eucerin #MAURICE on CKD; 3.0. stable (baseline ~2.0-2.5 per EMR) -Hold amlodipine, hydralazine to allow for pressure drop and prevent hypoperfusion from IV Lasix -serial BMPs to monitor Cr (baseline near 2) -Renal consulted -renally dose all meds #Anemia; likely multi-factorial in setting of CKD, myelodysplasia, r/o GI bleed. s/p 1 dose of IV Venofer -Hb 7.2 (was 8.3 s/p 3U pRBCs last admission 08/24); Fe 31, TIBC 202, Fe sat 15, Ferr 986.2 -During last admission, was seen by heme with recommendation for outpt workup -Tranfuse PRN to maintain Hgb >7 -FOBT neg #HTN; Stable. Cont home med: Carvedilol 25 BID. Per cardio, will cont rest of home meds when BP stable #Generalized abdominal pain; 2/2 constipation vs. liver mass -Oxycodone 5mg Q6H PRN for pain, Diclofenac cream -Miralax 17 gm BID for constipation -QTc 484, try to avoid Zofran for nausea/vomiting #Back pain -no known fall -Oxycodone 5 PRN for pain -PT #Hypothyroidism; Cont home meds: Synthroid 100 #Prophylaxis DVT: Cont home Eliquis 2.5 BID FEN -Fluid restriction -monitor Na, Cl, and Cr -sodium/diabetic diet Dispo -Cont to monitor on tele -Pt has MOLST on file, however specified that she wants FULL CODE. Visit type - Emergency Visit Emergency Visit: Yes ED Registration Date: 09/24/19 Care time: The patient presented to the Emergency Department on the above date and was hospitalized for further evaluation of their emergent condition. - New Patient This patient is new to me today: No - Critical Care Critical Care patient: No ATTENDING PHYSICIAN STATEMENT I saw and evaluated the patient. I reviewed the resident's note and discussed the case with the resident. I agree with the resident's findings and plan as documented. SUBJECTIVE: OBJECTIVE: ASSESSMENT AND PLAN:
--- NOTE | 2019-09-29 19:04 | PN ---
Teaching Attending Note Name of Resident: Rebekah Sharpe ATTENDING PHYSICIAN STATEMENT I saw and evaluated the patient. I reviewed the resident's note and discussed the case with the resident. I agree with the resident's findings and plan as documented. SUBJECTIVE: No fever or chills. No CABRALES. No N/V. SOB is better . has generalized body cahes. OBJECTIVE: otal body pain. itching generalized. itching in esternal ear canal. no OSB with upright position. SOB with flat position . minimal abd pain . + constipation OBJECTIVE: NAD , awake, alert, cooperative . CV: RRR Lungs: bibasilar crackles Abd: soft, slightly distended. TTP i n RUQ and suprapubic area Ext : 2+ pitting edema on legs ASSESSMENT AND PLAN: 89 y/o lady with h/o diastolic CHF, a-fib (on Eliquis), CKD, breast cancer s/p mastectomy, myelodysplasia, IDDM type 2, hypothyroidism, HLD, CVA, and GERD who presented with SOB adn LE edema and was diagnosed with D CHF exacerbation Acute on chronic diastolic heart failure ESBL producing Klebsiealla UTI MAURICE on CKD Liver mass retroperitoneal LAP b/l adrenal nodules h/o MDS chronic normocytic anemia leukocytosis prolonged QTC hyponatremia high AG metabolic acidosis :likely due to renal failure prolonged QTC h/o A fib plan : - cont lasix - renal function is stable - cont ertapenem - flow cytometry pending - d/w patient, she is interested in diagnostic Biopsy of the liver lesion and treatment accordingly. - case was d/w daughter by Dr. Samuel who was updated and agreed with the patient's decision as she usually decides for herself - CrCl 42 %. will need to hold Eliquis for 48 hours before such procedure . last dose this am . - hold off transfusion for now. - cont coreg - cont bowel regimen - add heparin Sq while off eliquis for DVT px ASSESSMENT AND PLAN:
[2019-09-29] MEDS: HEPARIN NA (PORCINE) 5,000 UNITS/ML 1ML VIAL SQ SCH (21:59)
[2019-09-29] MEDS: DOCUSATE SODIUM 100 MG CAPSULE (FP) PO SCH (21:59)
[2019-09-29] MEDS: LIDOCAINE PATCH REMOVAL MC SCH (21:59)
[2019-09-30] MEDS: hydrALAZINE HCL 10 MG TABLET PO SCH ×3 (06:22→22:53)
[2019-09-30] MEDS: FUROSEMIDE 40 MG/4 ML INJECTABLE VIAL IVPUSH SCH ×2 (06:23→14:24)
[2019-09-30] MEDS: HEPARIN NA (PORCINE) 5,000 UNITS/ML 1ML VIAL SQ SCH ×2 (06:23→14:24)
[2019-09-30] MEDS: INSULIN SLIDING SCALE (NOVOLOG) 1 VIAL SQ SCH ×4 (06:26→22:54)
[2019-09-30] MEDS: LEVOTHYROXINE NA 100 MCG TABLET (FP) PO SCH (06:32)
[2019-09-30 08:33] LABS: BASO % 0.6 % (0-2.0); EOS % 9.5 % (0-4.5); HEMOGLOBIN 7.3 GM/dL (10.7-15.3); LYMPH % 7.1 % (8-40); MCHC 31.9 g/dl (32.0-36.0); MEAN CELL VOLUME 94.2 fl (80-96); MEAN PLT VOLUME 8.7 fl (7.5-11.1); MONO % 11.4 % (3.8-10.2); NEUT % 71.4 % (42.8-82.8); PLATELET COUNT 120 K/MM3 (134-434); RBC 2.44 M/mm3 (3.60-5.2); RDW 19.9 % (11.6-15.6); WHITE BLOOD COUNT 14.2 K/mm3 (4.0-10.0)
[2019-09-30 09:09] LABS: CALCIUM 8.3 mg/dL (8.5-10.1); CREATININE 3.1 mg/dL (0.55-1.3); POTASSIUM 4.3 mmol/L (3.5-5.1)
[2019-09-30] MEDS: CARVEDILOL 25 MG TABLET (FP) PO SCH ×2 (09:51→22:53)
[2019-09-30] MEDS: FAMOTIDINE 10 MG TABLET PO SCH ×2 (09:51→22:53)
[2019-09-30] MEDS: ERTAPENEM SODIUM 0.5 GM in SODIUM CHLORIDE 50 ML IVPB SCH (09:51)
[2019-09-30] MEDS: POLYETHYLENE GLYCOL 3350 119 GM BTL PO SCH ×2 (09:51→22:54)
[2019-09-30] MEDS: LORATADINE 10 MG TABLET PO SCH (09:51)
[2019-09-30] MEDS: LACTOBACILLUS ACIDOPHILUS 1 TABLET PO SCH (09:51)
[2019-09-30] MEDS: PANTOPRAZOLE 40 MG TABLET PO SCH (09:51)
[2019-09-30] MEDS ORDERED: PT OWN MED DRAWER 7, Y5N ONE (09:53)
[2019-09-30] MEDS: LETROZOLE 2.5 MG TABLET (FP) PO SCH (09:53)
[2019-09-30 10:57] LABS: ANISOCYTOSIS 2+; MACROCYTOSIS 1+; PLATELET ESTIMATE DECREASED; TARGET CELLS 2+
--- NOTE | 2019-09-30 11:18 | PN ---
Progress Note (short form) - Note Progress Note: Consultation Note: cc: le edema History of Present Illness: 89 year old woman with a history of Afib on Eliquis, HTN, hyperlipidemia, type 2 DM, CVAs, CKD with baseline creat of 2-2.5, hypothyroidism, GERD, breast cancer s/p surgery, myelodysplasia, hx of Guillain [place] syndrome, gait instability who presented to the ED with le edema. She c/o le edema, back pain, manjarrez. No cp palps dizzy rest sob loc pnd orthopnea. no overnight events, no cp palps; sob and le edema improving. Current Medications Generic Name Dose Route Start Last Admin Trade Name Freq PRN Reason Stop Dose Admin Carvedilol 25 mg 09/26/19 11:28 09/30/19 09:51 Coreg - PO 25 mg BID AMRIT Administration Docusate Sodium 300 mg 09/25/19 22:00 09/29/19 21:59 Colace - PO Not Given HS AMRIT Famotidine 10 mg 09/28/19 22:00 09/30/19 09:51 Acid Pole Tester PO 10 mg BID AMRIT Administration Furosemide 40 mg 09/26/19 14:00 09/30/19 06:23 Lasix Injection - IVPUSH 40 mg BID@0600,1400 AM[facility]IT Administration Heparin Sodium (Porcine) 5,000 unit 09/29/19 22:00 09/30/19 06:23 Heparin - SQ 09/30/19 23:59 5,000 unit TID AMRIT Administration Hydralazine HCl 10 mg 09/29/19 14:00 09/30/19 06:22 Apresoline - PO 10 mg TID AMRIT Administration Ertapenem 0.5 gm/ Sodium 50 mls @ 100 mls/hr 09/27/19 14:00 09/30/19 09:51 Chloride IVPB 100 mls/hr DAILY AMRIT Administration Insulin Aspart 1 vial 09/25/19 07:00 09/30/19 06:26 Novolog Vial Sliding Scale - SQ Not Given ACHS AMRIT Protocol Lactobacillus Acidophilus 1 tab 09/29/19 14:30 09/30/19 09:51 Bacid - PO 1 tab DAILY [facility]RIT Administration Letrozole 2.5 mg 09/25/19 10:00 09/30/19 09:53 Femara - PO 2.5 mg DAILY AMRIT Administration Levothyroxine Sodium 100 mcg 09/25/19 07:00 09/30/19 06:32 Synthroid - PO 100 mcg ACBK AMRIT Administration Loratadine 10 mg 09/28/19 18:00 09/30/19 09:51 Claritin - PO 10 mg DAILY AMRIT Administration Miscellaneous 1 each 09/24/19 22:00 09/29/19 21:59 Lidoderm Patch Removal MC 1 each DAILY@2200 AM[facility]IT Administration Ptnt's Own Med ( 2 gm 09/26/19 14:13 09/29/19 17:19 Diclofenac Sodium [ TP 2 gm Diclofenac Sodium] 2 Q8H PRN Administration Gm) PAIN Pantoprazole Sodium 40 mg 09/26/19 10:00 09/30/19 09:51 Protonix - PO 40 mg DAILY [facility]RIT Administration Polyethylene Glycol 17 gm 09/24/19 23:00 09/30/19 09:51 Miralax (For Daily Use) - PO Not Given BID AMRIT Simethicone 80 mg 09/25/19 15:59 09/28/19 21:46 Mylicon - PO 80 mg Q4H PRN Administration GAS Vital Signs Period Temp Pulse Resp BP Sys/Hernandez Pulse Ox Last 24 Hr 97.5 F-98.0 F 79-93 18-20 118-140/54-71 93-94 nad no jvd dec bs bases nl eff aao3 trace le edema bl, no c/c irreg s1s2 no mrg abd nt nd pos bs no jaundice diaphoresis CBC, BMP 09/30/19 08:06 09/30/19 08:06 cxr: chf ecg: afib, rate ok, no ischemic changes tele: afib, rate ok echo 03/2019 nl LV function, mild MR, mild TR, PASP at least 49 mmHg IMP/REC: Acute diastolic heart failure exacerbation: - recent echo nl LV function - no signs acs - continue lasix, holding aldactone - baseline creat is 2-2.5 HTN: - cont current meds crow on CKD: - Baseline creat from last admission is 2-2.5, elevated now, likely cardiorenal - renal following PAF: -cont coreg for rate control -cont eliquis low dose liver mass: -heme/onc following
--- NOTE | 2019-09-30 14:02 | PN ---
Progress Note, Physician History of Present Illness: Pt seen and examined at bedside. She is awake and alert. She feels that her breathing is improved. - Current Medication List Current Medications: Active Medications Carvedilol (Coreg -) 25 mg PO BID [facility] Last Admin: 09/30/19 09:51 Dose: 25 mg Documented by: Docusate Sodium (Colace -) 300 mg PO HS [facility] Last Admin: 09/29/19 21:59 Dose: Not Given Documented by: Famotidine (Acid Wreath Inspector) 10 mg PO BID [facility] Last Admin: 09/30/19 09:51 Dose: 10 mg Documented by: Furosemide (Lasix Injection -) 40 mg IVPUSH BID@0600,1400 [facility] Last Admin: 09/30/19 06:23 Dose: 40 mg Documented by: Heparin Sodium (Porcine) (Heparin -) 5,000 unit SQ TID [facility] Stop: 09/30/19 23:59 Last Admin: 09/30/19 06:23 Dose: 5,000 unit Documented by: Hydralazine HCl (Apresoline -) 10 mg PO TID [facility] Last Admin: 09/30/19 06:22 Dose: 10 mg Documented by: Ertapenem 0.5 gm/ Sodium (Chloride) 50 mls @ 100 mls/hr IVPB DAILY [facility] Last Admin: 09/30/19 09:51 Dose: 100 mls/hr Documented by: Insulin Aspart (Novolog Vial Sliding Scale -) 1 vial SQ ACHS [facility]; Protocol Last Admin: 09/30/19 12:16 Dose: 2 units Documented by: Lactobacillus Acidophilus (Bacid -) 1 tab PO DAILY [facility] Last Admin: 09/30/19 09:51 Dose: 1 tab Documented by: Letrozole (Femara -) 2.5 mg PO DAILY [facility] Last Admin: 09/30/19 09:53 Dose: 2.5 mg Documented by: Levothyroxine Sodium (Synthroid -) 100 mcg PO ACBK [facility] Last Admin: 09/30/19 06:32 Dose: 100 mcg Documented by: Loratadine (Claritin -) 10 mg PO DAILY [facility] Last Admin: 09/30/19 09:51 Dose: 10 mg Documented by: Miscellaneous (Lidoderm Patch Removal) 1 each MC DAILY@2200 [facility] Last Admin: 09/29/19 21:59 Dose: 1 each Documented by: Ptnt's Own Med ( Diclofenac Sodium [ Diclofenac Sodium] 2 Gm) 2 gm TP Q8H PRN PRN Reason: PAIN Last Admin: 09/29/19 17:19 Dose: 2 gm Documented by: Pantoprazole Sodium (Protonix -) 40 mg PO DAILY [facility] Last Admin: 09/30/19 09:51 Dose: 40 mg Documented by: Polyethylene Glycol (Miralax (For Daily Use) -) 17 gm PO BID [facility] Last Admin: 09/30/19 09:51 Dose: Not Given Documented by: Simethicone (Mylicon -) 80 mg PO Q4H PRN PRN Reason: GAS Last Admin: 09/28/19 21:46 Dose: 80 mg Documented by: - Objective Vital Signs: Vital Signs Temperature 97.7 F 09/30/19 09:00 Pulse Rate 93 H 09/30/19 09:00 Respiratory Rate 18 09/30/19 09:00 Blood Pressure 121/64 09/30/19 09:00 O2 Sat by Pulse Oximetry (%) 93 L 09/30/19 09:00 Constitutional: Yes: Calm Eyes: Yes: Conjunctiva Clear HENT: Yes: Atraumatic Cardiovascular: Yes: S1, S2 Respiratory: Yes: On Nasal O2 Gastrointestinal: Yes: Soft Genitourinary: Yes: Incontinence Musculoskeletal: Yes: Muscle Weakness Edema: Yes Neurological: Yes: Oriented Psychiatric: Yes: Oriented Labs: CBC, BMP 09/30/19 08:06 09/30/19 08:06 INR, PTT INR 1.69 (0.83-1.09) H 09/24/19 16:49 Assessment/Plan Current Medications Generic Name Dose Route Start Last Admin Trade Name Meena PRN Reason Stop Dose Admin Carvedilol 25 mg 09/26/19 11:28 09/30/19 09:51 Coreg - PO 25 mg BID [facility]IT Administration Docusate Sodium 300 mg 09/25/19 22:00 09/29/19 21:59 Colace - PO Not Given HS [facility] Famotidine 10 mg 09/28/19 22:00 09/30/19 09:51 Acid Wreath Inspector PO 10 mg BID [facility] Administration Furosemide 40 mg 09/26/19 14:00 09/30/19 06:23 Lasix Injection - IVPUSH 40 mg BID@0600,1400 [facility] Administration Heparin Sodium (Porcine) 5,000 unit 09/29/19 22:00 09/30/19 06:23 Heparin - SQ 09/30/19 23:59 5,000 unit TID [facility] Administration Hydralazine HCl 10 mg 09/29/19 14:00 09/30/19 06:22 Apresoline - PO 10 mg TID [facility] Administration Ertapenem 0.5 gm/ Sodium 50 mls @ 100 mls/hr 09/27/19 14:00 09/30/19 09:51 Chloride IVPB 100 mls/hr DAILY [facility] Administration Insulin Aspart 1 vial 09/25/19 07:00 09/30/19 12:16 Novolog Vial Sliding Scale - SQ 2 units ACHS [facility] Administration Protocol Lactobacillus Acidophilus 1 tab 09/29/19 14:30 09/30/19 09:51 Bacid - PO 1 tab DAILY [facility] Administration Letrozole 2.5 mg 09/25/19 10:00 09/30/19 09:53 Femara - PO 2.5 mg DAILY [facility] Administration Levothyroxine Sodium 100 mcg 09/25/19 07:00 09/30/19 06:32 Synthroid - PO 100 mcg ACBK [facility] Administration Loratadine 10 mg 09/28/19 18:00 09/30/19 09:51 Claritin - PO 10 mg DAILY [facility] Administration Miscellaneous 1 each 09/24/19 22:00 09/29/19 21:59 Lidoderm Patch Removal MC 1 each DAILY@2200 [facility] Administration Ptnt's Own Med ( 2 gm 09/26/19 14:13 09/29/19 17:19 Diclofenac Sodium [ TP 2 gm Diclofenac Sodium] 2 Q8H PRN Administration Gm) PAIN Pantoprazole Sodium 40 mg 09/26/19 10:00 09/30/19 09:51 Protonix - PO 40 mg DAILY [facility] Administration Polyethylene Glycol 17 gm 09/24/19 23:00 09/30/19 09:51 Miralax (For Daily Use) - PO Not Given BID [facility] Simethicone 80 mg 09/25/19 15:59 09/28/19 21:46 Mylicon - PO 80 mg Q4H PRN Administration GAS Impression 1. proteinuria 2. hypothyroid 3. HTN 4. DM 5. fluid overload 6. breast cancer 7. anemia 8. CKD 9. CHF 10. hyponatremia 11. hypokalemia Plan - cont with lasix - repeat labs in am - repeat weight in am - oncology workup in progress - will hold off aldactone for now as renal function worsening - monitor neck cutter
[2019-09-30 15:50] LABS: INR 1.46 (0.83-1.09); PROTHROMBIN TIME (PATIENT) 17.3 SEC (9.7-13.0)
--- NOTE | 2019-09-30 17:38 | PN ---
Physical Exam: SUBJECTIVE: Patient seen and examined. She reports breathing is about the same as yesterday. She is able to intermittently take off NC. Mild right side abdominal pain present. She denies nausea or vomiting. Improvement in itching. Down 5kg. OBJECTIVE: Vital Signs Period Temp Pulse Resp BP Sys/Hernandez Pulse Ox Last 24 Hr 97.5 F-97.9 F 79-95 18-20 118-127/54-64 93-94 GENERAL: The patient is awake, alert, and fully oriented, in no acute distress. HEAD: Normal with no signs of trauma. EYES: PERRL, extraocular movements intact, conjunctiva clear. ENT: Ears normal, nares patent, moist mucous membranes. NECK: Trachea midline. LUNGS: Clear to auscultation bilaterally, no wheezes, bibasilar crackles. HEART: Regular rate and rhythm, no murmur. ABDOMEN: Soft, RUQ and RLQ tender to palpation, mild distension, normoactive bowel sounds. BACK: Stage 2 sacral ulcer. EXTREMITIES: Warm, well-perfused, +1 pitting edema b/l LE below knee, dry, flaky skin left monique. NEUROLOGICAL: Cranial nerves II through XII grossly intact. Normal speech. PSYCH: Normal mood, normal affect. SKIN: Warm, dry, normal turgor. tele: brief a-fib x2 Laboratory Results - last 24 hr 09/29/19 09/30/19 09/30/19 22:03 06:25 08:06 WBC 14.2 H RBC 2.44 L Hgb 7.3 L Hct 23.0 L MCV 94.2 MCH 30.0 MCHC 31.9 L RDW 19.9 H Plt Count 120 L MPV 8.7 Absolute Neuts (auto) 10.1 H Neutrophils % 71.4 Neutrophils % (Manual) 62.0 Band Neutrophils % 2.8 Lymphocytes % 7.1 L Lymphocytes % (Manual) 8.3 D Monocytes % 11.4 H Monocytes % (Manual) 9 D Eosinophils % 9.5 H Eosinophils % (Manual) 13.0 H Basophils % 0.6 Basophils % (Manual) 2.8 H D Myelocytes % (Man) 1 D Promyelocytes % (Man) 1 D Blast Cells % (Manual) 0 Nucleated RBC % 0 Metamyelocytes 0 D Hypochromia 3+ Platelet Estimate Decreased Polychromasia 3+ Poikilocytosis 2+ Basophilic Stippling 1+ Anisocytosis 2+ Microcytosis 2+ Macrocytosis 1+ Target Cells 2+ Stomatocytes 1+ PT with INR INR Sodium Potassium Chloride Carbon Dioxide Anion Gap BUN Creatinine Est GFR (CKD-EPI)AfAm Est GFR (CKD-EPI)NonAf POC Glucometer 168 150 Random Glucose Calcium 09/30/19 09/30/19 09/30/19 08:06 12:07 14:45 WBC RBC Hgb Hct MCV MCH MCHC RDW Plt Count MPV Absolute Neuts (auto) Neutrophils % Neutrophils % (Manual) Band Neutrophils % Lymphocytes % Lymphocytes % (Manual) Monocytes % Monocytes % (Manual) Eosinophils % Eosinophils % (Manual) Basophils % Basophils % (Manual) Myelocytes % (Man) Promyelocytes % (Man) Blast Cells % (Manual) Nucleated RBC % Metamyelocytes Hypochromia Platelet Estimate Polychromasia Poikilocytosis Basophilic Stippling Anisocytosis Microcytosis Macrocytosis Target Cells Stomatocytes PT with INR 17.30 H INR 1.46 H Sodium 131 L Potassium 4.3 Chloride 98 Carbon Dioxide 25 Anion Gap 8 BUN 107.0 H* Creatinine 3.1 H Est GFR (CKD-EPI)AfAm 14.73 Est GFR (CKD-EPI)NonAf 12.71 POC Glucometer 200 Random Glucose 169 H Calcium 8.3 L 09/30/19 16:59 WBC RBC Hgb Hct MCV MCH MCHC RDW Plt Count MPV Absolute Neuts (auto) Neutrophils % Neutrophils % (Manual) Band Neutrophils % Lymphocytes % Lymphocytes % (Manual) Monocytes % Monocytes % (Manual) Eosinophils % Eosinophils % (Manual) Basophils % Basophils % (Manual) Myelocytes % (Man) Promyelocytes % (Man) Blast Cells % (Manual) Nucleated RBC % Metamyelocytes Hypochromia Platelet Estimate Polychromasia Poikilocytosis Basophilic Stippling Anisocytosis Microcytosis Macrocytosis Target Cells Stomatocytes PT with INR INR Sodium Potassium Chloride Carbon Dioxide Anion Gap BUN Creatinine Est GFR (CKD-EPI)AfAm Est GFR (CKD-EPI)NonAf POC Glucometer 195 Random Glucose Calcium Active Medications Generic Name Dose Route Start Last Admin Trade Name Freq PRN Reason Stop Dose Admin Apixaban 2.5 mg 09/30/19 22:00 Eliquis - PO 09/30/19 22:01 ONCE ONE Carvedilol 25 mg 09/26/19 11:28 09/30/19 09:51 Coreg - PO 25 mg BID [facility] Administration Docusate Sodium 300 mg 09/25/19 22:00 09/29/19 21:59 Colace - PO Not Given HS [facility] Famotidine 10 mg 09/28/19 22:00 09/30/19 09:51 Acid Beverage Inspection Machine Tender PO 10 mg BID [facility] Administration Furosemide 40 mg 09/26/19 14:00 09/30/19 14:24 Lasix Injection - IVPUSH 40 mg BID@0600,1400 [facility] Administration Heparin Sodium (Porcine) 5,000 unit 09/29/19 22:00 09/30/19 14:24 Heparin - SQ 09/30/19 23:59 5,000 unit TID [facility] Administration Hydralazine HCl 10 mg 09/29/19 14:00 09/30/19 14:24 Apresoline - PO 10 mg TID [facility] Administration Ertapenem 0.5 gm/ Sodium 50 mls @ 100 mls/hr 09/27/19 14:00 09/30/19 09:51 Chloride IVPB 100 mls/hr DAILY [facility] Administration Insulin Aspart 1 vial 09/25/19 07:00 09/30/19 17:01 Novolog Vial Sliding Scale - SQ 2 units ACHS [facility] Administration Protocol Lactobacillus Acidophilus 1 tab 09/29/19 14:30 09/30/19 09:51 Bacid - PO 1 tab DAILY [facility] Administration Letrozole 2.5 mg 09/25/19 10:00 09/30/19 09:53 Femara - PO 2.5 mg DAILY [facility] Administration Levothyroxine Sodium 100 mcg 09/25/19 07:00 09/30/19 06:32 Synthroid - PO 100 mcg ACBK [facility] Administration Loratadine 10 mg 09/28/19 18:00 09/30/19 09:51 Claritin - PO 10 mg DAILY [facility] Administration Miscellaneous 1 each 09/24/19 22:00 09/29/19 21:59 Lidoderm Patch Removal MC 1 each DAILY@2200 [facility] Administration Ptnt's Own Med ( 2 gm 09/26/19 14:13 09/29/19 17:19 Diclofenac Sodium [ TP 2 gm Diclofenac Sodium] 2 Q8H PRN Administration Gm) PAIN Pantoprazole Sodium 40 mg 09/26/19 10:00 09/30/19 09:51 Protonix - PO 40 mg DAILY [facility] Administration Polyethylene Glycol 17 gm 09/24/19 23:00 09/30/19 09:51 Miralax (For Daily Use) - PO Not Given BID [facility] Simethicone 80 mg 09/25/19 15:59 09/28/19 21:46 Mylicon - PO 80 mg Q4H PRN Administration GAS ASSESSMENT/PLAN: 89F from [facility] with pmhx of diastolic CHF, a-fib (on Eliquis), CKD, breast cancer s/p mastectomy, myelodysplasia, IDDM type 2, hypothyroidism, HLD, CVA, and GERD presents with b/l leg swelling and nausea for "weeks" and back pain for several days admitted for acute CHF exacerbation. #Acute on Chronic Diastolic CHF Exacerbation; Initial BNP 19k, b/l LE pitting edema, bibasilar crackles -Daily weights, I/Os, fluid restriction -Cardio consulted; will continue Lasix 40 BID IV -Cont O2 NC, currently on 2L intermittently #New 4 cm L Hepatic Lobe lesion; in setting of hx of breast cancer and myelodysplasia -Onc consulted (known to Dr. Estrada) -IR plan to biopsy after Eliquis is held 72 hours and INR <1.5 #UTI; UCx +Kleb Pneumonia ESBL -Per ID, Ertapenem 0.5 gm QD (09/26) #Hyponatremia; likely 2/2 fluid overload. Stable. -Fluid restriction -IV diuresis -Renal consulted #pruritis, generalized -has been present for weeks per pt -especially ears -Claritin daily -Eucerin #MAURICE on CKD; 3.0. stable (baseline ~2.0-2.5 per EMR) -Hold amlodipine, hydralazine to allow for pressure drop and prevent hypoperfusion from IV Lasix -serial BMPs to monitor Cr (baseline near 2) -Renal consulted -renally dose all meds #Anemia; likely multi-factorial in setting of CKD, myelodysplasia, r/o GI bleed. s/p 1 dose of IV Venofer -Hb 7.3 (was 8.3 s/p 3U pRBCs last admission 08/24); Fe 31, TIBC 202, Fe sat 15, Ferr 986.2 -During last admission, was seen by heme with recommendation for outpt workup -Tranfuse PRN to maintain Hgb >7 -FOBT neg #HTN; Stable. Cont home med: Carvedilol 25 BID. Per cardio, will cont rest of home meds when BP stable #Generalized abdominal pain; 2/2 constipation vs. liver mass -Oxycodone 5mg Q6H PRN for pain, Diclofenac cream -Miralax 17 gm BID for constipation -QTc 484, try to avoid Zofran for nausea/vomiting #Back pain -no known fall -Oxycodone 5 PRN for pain -PT #Hypothyroidism; Cont home meds: Synthroid 100 #Prophylaxis DVT: Cont home Eliquis 2.5 BID FEN -Fluid restriction -monitor Na, Cl, and Cr -sodium/diabetic diet Dispo -Cont to monitor on tele -Pt has MOLST on file, however specified that she wants FULL CODE. Visit type - Emergency Visit Emergency Visit: Yes ED Registration Date: 09/24/19 Care time: The patient presented to the Emergency Department on the above date and was hospitalized for further evaluation of their emergent condition. - New Patient This patient is new to me today: No - Critical Care Critical Care patient: No ATTENDING PHYSICIAN STATEMENT I saw and evaluated the patient. I reviewed the resident's note and discussed the case with the resident. I agree with the resident's findings and plan as documented. SUBJECTIVE: OBJECTIVE: ASSESSMENT AND PLAN:
--- NOTE | 2019-09-30 18:14 | PN ---
Teaching Attending Note Name of Resident: Rebekah Sharpe ATTENDING PHYSICIAN STATEMENT I saw and evaluated the patient. I reviewed the resident's note and discussed the case with the resident. I agree with the resident's findings and plan as documented. SUBJECTIVE: No fever or chills. no CABRALES . SOB is improved . has pain in buttock area. dev eloped an ulcer . no abd pain. SOB when flat . chronci back pain. uncomfortable inbed. declined sitting in chair. declined PT today OBJECTIVE: NAD , awake, alert, cooperative . CV: RRR Lungs: bibasilar crackles Abd: soft,ND . NT today Ext: 1 + pitting edema on legs skin : 2 small stage 2 ulcers on medial R buttock ( 2 cm, and 1 cm in diameter ) , no surrounding erythema , no discharge ASSESSMENT AND PLAN: 89 y/o lady with h/o diastolic CHF, a-fib (on Eliquis), CKD, breast cancer s/p mastectomy, myelodysplasia, IDDM type 2, hypothyroidism, HLD, CVA, and GERD who presented with SOB adn LE edema and was diagnosed with D CHF exacerbation Acute on chronic diastolic heart failure ESBL producing Klebsiealla UTI MAURICE on CKD Liver mass retroperitoneal LAP b/l adrenal nodules h/o MDS chronic normocytic anemia leukocytosis prolonged QTC hyponatremia high AG metabolic acidosis :likely due to renal failure prolonged QTC h/o A fib R gluteal decubitus ulcer Plan: - cont lasix. weight decreased. resp sx improved - Monitor renal function closely - cont ertapenem day 4 - flow cytometry pending - will d/w heme BM bx plan - Liver Bx was dw with IR, Eliquis was requested to be held 72 hrs. will give this evening dose and hold x 3 days starting tomorrow - hold off transfusion for now. - cont coreg - cont bowel regimen - cont to hold alsadctone -
[2019-09-30] MEDS ORDERED: APIXABAN 2.5 MG TABLET PO ONE (22:00)
[2019-09-30] MEDS: DOCUSATE SODIUM 100 MG CAPSULE (FP) PO SCH (22:53)
[2019-09-30] MEDS: LIDOCAINE PATCH REMOVAL MC SCH (22:54)
[2019-09-30] MEDS ORDERED: SIMETHICONE 80 MG TAB.CHEW (FP) PO PRN (23:14)
[2019-09-30] MEDS ORDERED: DICLOFENAC SODIUM 2 GM TP PRN (23:14)
[2019-10-01] MEDS: oxyCODONE HCL 5 MG TABLET PO PRN ×3 (01:50→22:05)
[2019-10-01] MEDS: FUROSEMIDE 40 MG/4 ML INJECTABLE VIAL IVPUSH SCH ×2 (06:39→14:30)
[2019-10-01] MEDS: INSULIN SLIDING SCALE (NOVOLOG) 1 VIAL SQ SCH ×4 (06:39→22:05)
[2019-10-01] MEDS: hydrALAZINE HCL 10 MG TABLET PO SCH ×3 (06:39→22:05)
[2019-10-01] MEDS: LEVOTHYROXINE NA 100 MCG TABLET (FP) PO SCH (06:39)
[2019-10-01 08:38] LABS: BASO % 1.5 % (0-2.0); EOS % 9.1 % (0-4.5); HEMATOCRIT 22.4 % (32.4-45.2); HEMOGLOBIN 7.1 GM/dL (10.7-15.3); LYMPH % 7.8 % (8-40); MCH 29.9 pg (25.7-33.7); MCHC 31.7 g/dl (32.0-36.0); MEAN CELL VOLUME 94.4 fl (80-96); MEAN PLT VOLUME 8.6 fl (7.5-11.1); NEUT % 70.6 % (42.8-82.8); PLATELET COUNT 116 K/MM3 (134-434); RBC 2.38 M/mm3 (3.60-5.2); RDW 20.3 % (11.6-15.6); WHITE BLOOD COUNT 17.2 K/mm3 (4.0-10.0)
[2019-10-01 08:43] LABS: INR 1.59 (0.83-1.09); PROTHROMBIN TIME (PATIENT) 18.9 SEC (9.7-13.0)
[2019-10-01 09:14] LABS: CREATININE 3.3 mg/dL (0.55-1.3); MAGNESIUM 2.3 mg/dL (1.8-2.4); PHOSPHOROUS 5.4 mg/dL (2.5-4.9); POTASSIUM 4.3 mmol/L (3.5-5.1)
[2019-10-01 09:21] LABS: BLOOD UREA NITROGEN 108.9 mg/dL (7-18)
[2019-10-01] MEDS: CARVEDILOL 25 MG TABLET (FP) PO SCH ×2 (10:01→22:05)
[2019-10-01] MEDS: LORATADINE 10 MG TABLET PO SCH (10:01)
[2019-10-01] MEDS: LACTOBACILLUS ACIDOPHILUS 1 TABLET PO SCH (10:01)
[2019-10-01] MEDS: HEPARIN NA (PORCINE) 5,000 UNITS/ML 1ML VIAL SQ SCH ×2 (10:01→15:07)
[2019-10-01] MEDS: LETROZOLE 2.5 MG TABLET (FP) PO SCH (10:01)
[2019-10-01] MEDS: PANTOPRAZOLE 40 MG TABLET PO SCH (10:01)
[2019-10-01] MEDS: POLYETHYLENE GLYCOL 3350 119 GM BTL PO SCH ×2 (10:02→22:06)
[2019-10-01] MEDS: ERTAPENEM SODIUM 0.5 GM in SODIUM CHLORIDE 50 ML IVPB SCH (11:24)
[2019-10-01 11:26] LABS: ANISOCYTOSIS 1+; MACROCYTOSIS 0; PLATELET ESTIMATE DECREASED; TEAR DROP CELLS 1+
--- NOTE | 2019-10-01 12:45 | PN ---
Progress Note, Physician Chief Complaint: no cp/sob/palps History of Present Illness: weight is down still some edema LE - Current Medication List Current Medications: Active Medications Carvedilol (Coreg -) 25 mg PO BID [facility] Last Admin: 10/01/19 10:01 Dose: 25 mg Documented by: Docusate Sodium (Colace -) 300 mg PO HS [facility] Furosemide (Lasix Injection -) 40 mg IVPUSH BID@0600,1400 [facility] Last Admin: 10/01/19 06:39 Dose: 40 mg Documented by: Heparin Sodium (Porcine) (Heparin -) 5,000 unit SQ TID [facility] Stop: 10/03/19 23:00 Last Admin: 10/01/19 10:01 Dose: 5,000 unit Documented by: Hydralazine HCl (Apresoline -) 10 mg PO TID [facility] Last Admin: 10/01/19 06:39 Dose: 10 mg Documented by: Ertapenem 0.5 gm/ Sodium (Chloride) 50 mls @ 100 mls/hr IVPB DAILY [facility] Last Admin: 10/01/19 11:24 Dose: 100 mls/hr Documented by: Insulin Aspart (Novolog Vial Sliding Scale -) 1 vial SQ ACHS [facility]; Protocol Last Admin: 10/01/19 06:39 Dose: 2 units Documented by: Lactobacillus Acidophilus (Bacid -) 1 tab PO DAILY [facility] Last Admin: 10/01/19 10:01 Dose: 1 tab Documented by: Letrozole (Femara -) 2.5 mg PO DAILY [facility] Last Admin: 10/01/19 10:01 Dose: 2.5 mg Documented by: Levothyroxine Sodium (Synthroid -) 100 mcg PO ACBK [facility] Last Admin: 10/01/19 06:39 Dose: 100 mcg Documented by: Loratadine (Claritin -) 10 mg PO DAILY [facility] Last Admin: 10/01/19 10:01 Dose: 10 mg Documented by: Non-Formulary Medication (Diclofenac Sodium [Diclofenac Sodium]) 2 gm TP Q8H PRN PRN Reason: PAIN Oxycodone HCl (Roxicodone -) 5 mg PO Q6H PRN PRN Reason: PAIN LEVEL 6-10 Last Admin: 10/01/19 10:00 Dose: 5 mg Documented by: Pantoprazole Sodium (Protonix -) 40 mg PO DAILY [facility] Last Admin: 10/01/19 10:01 Dose: 40 mg Documented by: Polyethylene Glycol (Miralax (For Daily Use) -) 17 gm PO BID [facility] Last Admin: 10/01/19 10:02 Dose: Not Given Documented by: Simethicone (Mylicon -) 80 mg PO Q4H PRN PRN Reason: GAS - Objective Vital Signs: Vital Signs Temperature 98.9 F 10/01/19 09:26 Pulse Rate 100 H 10/01/19 09:26 Respiratory Rate 20 10/01/19 09:26 Blood Pressure 134/81 10/01/19 09:26 O2 Sat by Pulse Oximetry (%) 100 09/30/19 21:00 Constitutional: Yes: No Distress Cardiovascular: Yes: Regular Rate and Rhythm Respiratory: Yes: Other (decreased basilar breath sounds) Gastrointestinal: Yes: Soft Edema: Yes Edema: LLE: 2+, RLE: 2+ Neurological: Yes: Alert, Oriented Psychiatric: Yes: WNL Labs: CBC, BMP 10/01/19 08:18 10/01/19 08:18 INR, PTT INR 1.59 (0.83-1.09) H 10/01/19 08:18 Laboratory Tests 09/24/19 09/26/19 10/01/19 20:54 17:58 08:18 WBC 17.2 H Hgb 7.1 L Plt Count 116 L Sodium Potassium Creatinine Stool Occult Blood Negative COVID-19 (TOYA) Not detected 10/01/19 08:18 WBC Hgb Plt Count Sodium 133 L Potassium 4.3 Creatinine 3.3 H Stool Occult Blood COVID-19 (TOYA) Assessment/Plan echo 03/2019 nl LV function, mild MR, mild TR, PASP at least 49 mmHg IMP/REC: Acute diastolic heart failure exacerbation: - recent echo nl LV function - no signs acs - continue lasix, holding aldactone - baseline creat is 2-2.5 HTN: - cont current meds crow on CKD: - Baseline creat from last admission is 2-2.5, elevated now, likely cardiorenal - renal following PAF: -cont coreg for rate control -cont eliquis low dose liver mass: -heme/onc following
--- NOTE | 2019-10-01 13:04 | PN ---
Progress Note, Physician History of Present Illness: Pt seen and examined at bedside. She is awake and alert. She has shortness of breath when laying flat. - Current Medication List Current Medications: Active Medications Carvedilol (Coreg -) 25 mg PO BID [facility] Last Admin: 10/01/19 10:01 Dose: 25 mg Documented by: Docusate Sodium (Colace -) 300 mg PO HS [facility] Furosemide (Lasix Injection -) 40 mg IVPUSH BID@0600,1400 [facility] Last Admin: 10/01/19 06:39 Dose: 40 mg Documented by: Heparin Sodium (Porcine) (Heparin -) 5,000 unit SQ TID [facility] Stop: 10/03/19 23:00 Last Admin: 10/01/19 10:01 Dose: 5,000 unit Documented by: Hydralazine HCl (Apresoline -) 10 mg PO TID [facility] Last Admin: 10/01/19 06:39 Dose: 10 mg Documented by: Ertapenem 0.5 gm/ Sodium (Chloride) 50 mls @ 100 mls/hr IVPB DAILY [facility] Last Admin: 10/01/19 11:24 Dose: 100 mls/hr Documented by: Insulin Aspart (Novolog Vial Sliding Scale -) 1 vial SQ ACHS [facility]; Protocol Last Admin: 10/01/19 12:53 Dose: 2 units Documented by: Lactobacillus Acidophilus (Bacid -) 1 tab PO DAILY [facility] Last Admin: 10/01/19 10:01 Dose: 1 tab Documented by: Letrozole (Femara -) 2.5 mg PO DAILY [facility] Last Admin: 10/01/19 10:01 Dose: 2.5 mg Documented by: Levothyroxine Sodium (Synthroid -) 100 mcg PO ACBK [facility] Last Admin: 10/01/19 06:39 Dose: 100 mcg Documented by: Loratadine (Claritin -) 10 mg PO DAILY [facility] Last Admin: 10/01/19 10:01 Dose: 10 mg Documented by: Non-Formulary Medication (Diclofenac Sodium [Diclofenac Sodium]) 2 gm TP Q8H PRN PRN Reason: PAIN Oxycodone HCl (Roxicodone -) 5 mg PO Q6H PRN PRN Reason: PAIN LEVEL 6-10 Last Admin: 10/01/19 10:00 Dose: 5 mg Documented by: Pantoprazole Sodium (Protonix -) 40 mg PO DAILY [facility] Last Admin: 10/01/19 10:01 Dose: 40 mg Documented by: Polyethylene Glycol (Miralax (For Daily Use) -) 17 gm PO BID [facility] Last Admin: 10/01/19 10:02 Dose: Not Given Documented by: Simethicone (Mylicon -) 80 mg PO Q4H PRN PRN Reason: GAS - Objective Vital Signs: Vital Signs Temperature 98.9 F 10/01/19 09:26 Pulse Rate 100 H 10/01/19 09:26 Respiratory Rate 20 10/01/19 09:26 Blood Pressure 134/81 10/01/19 09:26 O2 Sat by Pulse Oximetry (%) 100 09/30/19 21:00 Constitutional: Yes: Calm Eyes: Yes: Conjunctiva Clear HENT: Yes: Atraumatic Neck: Yes: Supple Cardiovascular: Yes: S1, S2 Respiratory: Yes: On Nasal O2 Gastrointestinal: Yes: Soft Genitourinary: Yes: Incontinence Edema: Yes Edema: LLE: 2+, RLE: 2+ Neurological: Yes: Oriented Labs: CBC, BMP 10/01/19 08:18 10/01/19 08:18 INR, PTT INR 1.59 (0.83-1.09) H 10/01/19 08:18 Assessment/Plan Current Medications Generic Name Dose Route Start Last Admin Trade Name Meena PRN Reason Stop Dose Admin Carvedilol 25 mg 10/01/19 10:00 10/01/19 10:01 Coreg - PO 25 mg BID [facility] Administration Docusate Sodium 300 mg 10/01/19 22:00 Colace - PO HS [facility] Furosemide 40 mg 10/01/19 06:00 10/01/19 06:39 Lasix Injection - IVPUSH 40 mg BID@0600,1400 [facility] Administration Heparin Sodium (Porcine) 5,000 unit 10/01/19 10:00 10/01/19 10:01 Heparin - SQ 10/03/19 23:00 5,000 unit TID [facility] Administration Hydralazine HCl 10 mg 09/29/19 14:00 10/01/19 06:39 Apresoline - PO 10 mg TID [facility] Administration Ertapenem 0.5 gm/ Sodium 50 mls @ 100 mls/hr 10/01/19 10:00 10/01/19 11:24 Chloride IVPB 100 mls/hr DAILY [facility] Administration Insulin Aspart 1 vial 10/01/19 07:00 10/01/19 12:53 Novolog Vial Sliding Scale - SQ 2 units ACHS [facility] Administration Protocol Lactobacillus Acidophilus 1 tab 09/29/19 14:30 10/01/19 10:01 Bacid - PO 1 tab DAILY [facility] Administration Letrozole 2.5 mg 10/01/19 10:00 10/01/19 10:01 Femara - PO 2.5 mg DAILY [facility] Administration Levothyroxine Sodium 100 mcg 10/01/19 07:00 10/01/19 06:39 Synthroid - PO 100 mcg ACBK [facility] Administration Loratadine 10 mg 10/01/19 10:00 10/01/19 10:01 Claritin - PO 10 mg DAILY [facility] Administration Non-Formulary Medication 2 gm 09/30/19 23:14 Diclofenac Sodium [Diclofenac Sodium] TP Q8H PRN PAIN Oxycodone HCl 5 mg 10/01/19 01:38 10/01/19 10:00 Roxicodone - PO 5 mg Q6H PRN Administration PAIN LEVEL 6-10 Pantoprazole Sodium 40 mg 10/01/19 10:00 10/01/19 10:01 Protonix - PO 40 mg DAILY [facility] Administration Polyethylene Glycol 17 gm 10/01/19 10:00 10/01/19 10:02 Miralax (For Daily Use) - PO Not Given BID [facility] Simethicone 80 mg 09/30/19 23:14 Mylicon - PO Q4H PRN GAS Impression 1. proteinuria 2. hypothyroid 3. HTN 4. DM 5. fluid overload 6. breast cancer 7. anemia 8. CKD 9. CHF 10. hyponatremia 11. hypokalemia Plan - cont lasix - renal function worsening - pt remains fluid overloaded - oncology workup in progress - will hold off aldactone for now as renal function worsening - monitor email marketing manager
--- NOTE | 2019-10-01 13:05 | CON.HO ---
Consult - text type - Consultation Consultation Note: Please note Dr. Odonnell's note of 09/25/19. James call Dr. Estrada's group to manage oncologic issues, since it has been taking care of this patient. It can best carry on a discussion with the family into aligning possible workup or marrow biopsy to rule out MDS, or AML, performing liver biosy
--- NOTE | 2019-10-01 17:06 | PN ---
Teaching Attending Note Name of Resident: Rebekah Sharpe ATTENDING PHYSICIAN STATEMENT I saw and evaluated the patient. I reviewed the resident's note and discussed the case with the resident. I agree with the resident's findings and plan as documented. SUBJECTIVE: Patient denies SOB. She complains of burning when she urinates. OBJECTIVE: Vital Signs Period Temp Pulse Resp BP Sys/Hernandez Pulse Ox Last 24 Hr 97.6 F-99 F 93-100 20-20 120-135/59-81 100 HEART: S1S2, RRR LUNGS: Bibasilar rales ABDOMEN: Soft, non-tender, non-distended, normal BS EXTREMITIES: 1+ edema Laboratory Results - last 24 hr 09/30/19 10/01/19 10/01/19 22:51 05:54 08:18 WBC 17.2 H RBC 2.38 L Hgb 7.1 L Hct 22.4 L MCV 94.4 MCH 29.9 MCHC 31.7 L RDW 20.3 H Plt Count 116 L MPV 8.6 Absolute Neuts (auto) 12.1 H Neutrophils % 70.6 Neutrophils % (Manual) 53.2 Band Neutrophils % 3.9 Lymphocytes % 7.8 L Lymphocytes % (Manual) 10.4 D Monocytes % 11.0 H Monocytes % (Manual) 13 H Eosinophils % 9.1 H Eosinophils % (Manual) 15.6 H Basophils % 1.5 Basophils % (Manual) 0.0 Myelocytes % (Man) 0 D Promyelocytes % (Man) 0 D Blast Cells % (Manual) 0 Nucleated RBC % 0 Metamyelocytes 0 Hypochromia 0 Platelet Estimate Decreased Polychromasia 1+ Poikilocytosis 1+ Basophilic Stippling 2+ Anisocytosis 1+ Microcytosis 1+ Macrocytosis 0 Spherocytes 1+ Tear Drop Cells 1+ Stomatocytes 1+ Fragmented RBCs 1+ PT with INR INR Sodium Potassium Chloride Carbon Dioxide Anion Gap BUN Creatinine Est GFR (CKD-EPI)AfAm Est GFR (CKD-EPI)NonAf POC Glucometer 163 187 Random Glucose Calcium Phosphorus Magnesium 10/01/19 10/01/19 10/01/19 08:18 08:18 11:27 WBC RBC Hgb Hct MCV MCH MCHC RDW Plt Count MPV Absolute Neuts (auto) Neutrophils % Neutrophils % (Manual) Band Neutrophils % Lymphocytes % Lymphocytes % (Manual) Monocytes % Monocytes % (Manual) Eosinophils % Eosinophils % (Manual) Basophils % Basophils % (Manual) Myelocytes % (Man) Promyelocytes % (Man) Blast Cells % (Manual) Nucleated RBC % Metamyelocytes Hypochromia Platelet Estimate Polychromasia Poikilocytosis Basophilic Stippling Anisocytosis Microcytosis Macrocytosis Spherocytes Tear Drop Cells Stomatocytes Fragmented RBCs PT with INR 18.90 H INR 1.59 H Sodium 133 L Potassium 4.3 Chloride 97 L Carbon Dioxide 26 Anion Gap 11 BUN 108.9 H* Creatinine 3.3 H Est GFR (CKD-EPI)AfAm 13.66 Est GFR (CKD-EPI)NonAf 11.78 POC Glucometer 192 Random Glucose 164 H Calcium 8.0 L Phosphorus 5.4 H Magnesium 2.3 Current Medications Generic Name Dose Route Start Last Admin Trade Name Freq PRN Reason Stop Dose Admin Carvedilol 25 mg 10/01/19 10:00 10/01/19 10:01 Coreg - PO 25 mg BID AMRIT Administration Docusate Sodium 300 mg 10/01/19 22:00 Colace - PO HS AMRIT Furosemide 40 mg 10/01/19 06:00 10/01/19 14:30 Lasix Injection - IVPUSH 40 mg BID@0600,1400 AMRIT Administration Heparin Sodium (Porcine) 5,000 unit 10/01/19 10:00 10/01/19 15:07 Heparin - SQ 10/03/19 23:00 5,000 unit TID AMRIT Administration Hydralazine HCl 10 mg 09/29/19 14:00 10/01/19 14:30 Apresoline - PO 10 mg TID AMRIT Administration Ertapenem 0.5 gm/ Sodium 50 mls @ 100 mls/hr 10/01/19 10:00 10/01/19 11:24 Chloride IVPB 100 mls/hr DAILY AMRIT Administration Insulin Aspart 1 vial 10/01/19 07:00 10/01/19 12:53 Novolog Vial Sliding Scale - SQ 2 units ACHS AMRIT Administration Protocol Lactobacillus Acidophilus 1 tab 09/29/19 14:30 10/01/19 10:01 Bacid - PO 1 tab DAILY AMRIT Administration Letrozole 2.5 mg 10/01/19 10:00 10/01/19 10:01 Femara - PO 2.5 mg DAILY AM[facility]IT Administration Levothyroxine Sodium 100 mcg 10/01/19 07:00 10/01/19 06:39 Synthroid - PO 100 mcg ACBK [facility] Administration Loratadine 10 mg 10/01/19 10:00 10/01/19 10:01 Claritin - PO 10 mg DAILY [facility]IT Administration Non-Formulary Medication 2 gm 09/30/19 23:14 Diclofenac Sodium [Diclofenac Sodium] TP Q8H PRN PAIN Oxycodone HCl 5 mg 10/01/19 01:38 10/01/19 10:00 Roxicodone - PO 5 mg Q6H PRN Administration PAIN LEVEL 6-10 Pantoprazole Sodium 40 mg 10/01/19 10:00 10/01/19 10:01 Protonix - PO 40 mg DAILY AM[facility]IT Administration Polyethylene Glycol 17 gm 10/01/19 10:00 10/01/19 10:02 Miralax (For Daily Use) - PO Not Given BID AMRIT Simethicone 80 mg 09/30/19 23:14 Mylicon - PO Q4H PRN GAS ASSESSMENT AND PLAN: This is an 89 year old woman with a history of chronic diastolic heart failure, atrial fib, hyperlipidemia, type 2 DM, stage 4 CKD, breast cancer, MDS, hypothyroidism, CVA, GERD who presented to the ED with SOB and leg edema. 1. Acute on chronic diastolic heart failure - Continue Lasix IV, fluid restriction 2. ESBL Klebsiella UTI - Continue ertapenem (day 5) 3. Acute kidney injury - BUN increasing with diuresis, creatinine had been stable but increased today - Aldactone held - Patient still appears fluid overloaded - continue Lasix IV 4. Liver mass - Eliquis held for liver biopsy next week 5. Hyponatremia secondary to hypervolemia - Continue Lasix, fluid restriction 6. Anemia, thrombocytopenia, leukocytosis - Anemia secondary to MDS, CKD - Transfuse to keep Hgb>7 - Flow cytometry pending, possible bone marrow biopsy to eval for AML 7. Stage II pressure ulcers of buttocks - Continue wound care
--- NOTE | 2019-10-01 17:12 | PN ---
Physical Exam: SUBJECTIVE: Patient seen and examined. She reports breathing is stable. She denies nausea, vomiting, abdominal pain today. She has lumbar pain, especially left side as well as burning with urination. OBJECTIVE: Vital Signs Period Temp Pulse Resp BP Sys/Hernandez Pulse Ox Last 24 Hr 97.6 F-99 F 93-100 20-20 120-135/59-81 100 GENERAL: The patient is awake, alert, and fully oriented, in no acute distress. HEAD: Normal with no signs of trauma. EYES: PERRL, extraocular movements intact, conjunctiva clear. ENT: Ears normal, nares patent, moist mucous membranes. NECK: Trachea midline. LUNGS: Clear to auscultation bilaterally, no wheezes, bibasilar crackles similar to yesterday. HEART: Regular rate and rhythm, no murmur. ABDOMEN: Soft, RUQ and RLQ tender to palpation, mild distension, normoactive bowel sounds. BACK: Tender to palpation of lumbar spine and left lumbar area. EXTREMITIES: Warm, well-perfused, +1 pitting edema b/l LE below knee, dry, flaky skin left monique. Improved. NEUROLOGICAL: Cranial nerves II through XII grossly intact. Normal speech. PSYCH: Normal mood, normal affect. SKIN: Warm, dry, normal turgor. Laboratory Results - last 24 hr 09/30/19 09/30/19 10/01/19 16:59 22:51 05:54 WBC RBC Hgb Hct MCV MCH MCHC RDW Plt Count MPV Absolute Neuts (auto) Neutrophils % Neutrophils % (Manual) Band Neutrophils % Lymphocytes % Lymphocytes % (Manual) Monocytes % Monocytes % (Manual) Eosinophils % Eosinophils % (Manual) Basophils % Basophils % (Manual) Myelocytes % (Man) Promyelocytes % (Man) Blast Cells % (Manual) Nucleated RBC % Metamyelocytes Hypochromia Platelet Estimate Polychromasia Poikilocytosis Basophilic Stippling Anisocytosis Microcytosis Macrocytosis Spherocytes Tear Drop Cells Stomatocytes Fragmented RBCs PT with INR INR Sodium Potassium Chloride Carbon Dioxide Anion Gap BUN Creatinine Est GFR (CKD-EPI)AfAm Est GFR (CKD-EPI)NonAf POC Glucometer 195 163 187 Random Glucose Calcium Phosphorus Magnesium 10/01/19 10/01/19 10/01/19 08:18 08:18 08:18 WBC 17.2 H RBC 2.38 L Hgb 7.1 L Hct 22.4 L MCV 94.4 MCH 29.9 MCHC 31.7 L RDW 20.3 H Plt Count 116 L MPV 8.6 Absolute Neuts (auto) 12.1 H Neutrophils % 70.6 Neutrophils % (Manual) 53.2 Band Neutrophils % 3.9 Lymphocytes % 7.8 L Lymphocytes % (Manual) 10.4 D Monocytes % 11.0 H Monocytes % (Manual) 13 H Eosinophils % 9.1 H Eosinophils % (Manual) 15.6 H Basophils % 1.5 Basophils % (Manual) 0.0 Myelocytes % (Man) 0 D Promyelocytes % (Man) 0 D Blast Cells % (Manual) 0 Nucleated RBC % 0 Metamyelocytes 0 Hypochromia 0 Platelet Estimate Decreased Polychromasia 1+ Poikilocytosis 1+ Basophilic Stippling 2+ Anisocytosis 1+ Microcytosis 1+ Macrocytosis 0 Spherocytes 1+ Tear Drop Cells 1+ Stomatocytes 1+ Fragmented RBCs 1+ PT with INR 18.90 H INR 1.59 H Sodium 133 L Potassium 4.3 Chloride 97 L Carbon Dioxide 26 Anion Gap 11 BUN 108.9 H* Creatinine 3.3 H Est GFR (CKD-EPI)AfAm 13.66 Est GFR (CKD-EPI)NonAf 11.78 POC Glucometer Random Glucose 164 H Calcium 8.0 L Phosphorus 5.4 H Magnesium 2.3 10/01/19 11:27 WBC RBC Hgb Hct MCV MCH MCHC RDW Plt Count MPV Absolute Neuts (auto) Neutrophils % Neutrophils % (Manual) Band Neutrophils % Lymphocytes % Lymphocytes % (Manual) Monocytes % Monocytes % (Manual) Eosinophils % Eosinophils % (Manual) Basophils % Basophils % (Manual) Myelocytes % (Man) Promyelocytes % (Man) Blast Cells % (Manual) Nucleated RBC % Metamyelocytes Hypochromia Platelet Estimate Polychromasia Poikilocytosis Basophilic Stippling Anisocytosis Microcytosis Macrocytosis Spherocytes Tear Drop Cells Stomatocytes Fragmented RBCs PT with INR INR Sodium Potassium Chloride Carbon Dioxide Anion Gap BUN Creatinine Est GFR (CKD-EPI)AfAm Est GFR (CKD-EPI)NonAf POC Glucometer 192 Random Glucose Calcium Phosphorus Magnesium Active Medications Generic Name Dose Route Start Last Admin Trade Name Freq PRN Reason Stop Dose Admin Carvedilol 25 mg 10/01/19 10:00 10/01/19 10:01 Coreg - PO 25 mg BID AMRIT Administration Docusate Sodium 300 mg 10/01/19 22:00 Colace - PO HS AMRIT Furosemide 40 mg 10/01/19 06:00 10/01/19 14:30 Lasix Injection - IVPUSH 40 mg BID@0600,1400 AM[facility]IT Administration Heparin Sodium (Porcine) 5,000 unit 10/01/19 10:00 10/01/19 15:07 Heparin - SQ 10/03/19 23:00 5,000 unit TID AMRIT Administration Hydralazine HCl 10 mg 09/29/19 14:00 10/01/19 14:30 Apresoline - PO 10 mg TID AMRIT Administration Ertapenem 0.5 gm/ Sodium 50 mls @ 100 mls/hr 10/01/19 10:00 10/01/19 11:24 Chloride IVPB 100 mls/hr DAILY AM[facility]IT Administration Insulin Aspart 1 vial 10/01/19 07:00 10/01/19 12:53 Novolog Vial Sliding Scale - SQ 2 units ACHS AMRIT Administration Protocol Lactobacillus Acidophilus 1 tab 09/29/19 14:30 10/01/19 10:01 Bacid - PO 1 tab DAILY AMRIT Administration Letrozole 2.5 mg 10/01/19 10:00 10/01/19 10:01 Femara - PO 2.5 mg DAILY AM[facility]IT Administration Levothyroxine Sodium 100 mcg 10/01/19 07:00 10/01/19 06:39 Synthroid - PO 100 mcg ACBK AM[facility]IT Administration Loratadine 10 mg 10/01/19 10:00 10/01/19 10:01 Claritin - PO 10 mg DAILY AMRIT Administration Non-Formulary Medication 2 gm 09/30/19 23:14 Diclofenac Sodium [Diclofenac Sodium] TP Q8H PRN PAIN Oxycodone HCl 5 mg 10/01/19 01:38 10/01/19 10:00 Roxicodone - PO 5 mg Q6H PRN Administration PAIN LEVEL 6-10 Pantoprazole Sodium 40 mg 10/01/19 10:00 10/01/19 10:01 Protonix - PO 40 mg DAILY AMRIT Administration Polyethylene Glycol 17 gm 10/01/19 10:00 10/01/19 10:02 Miralax (For Daily Use) - PO Not Given BID AMRIT Simethicone 80 mg 09/30/19 23:14 Mylicon - PO Q4H PRN GAS ASSESSMENT/PLAN: 89F from [facility] with pmhx of diastolic CHF, a-fib (on Eliquis), CKD, breast cancer s/p mastectomy, myelodysplasia, IDDM type 2, hypothyroidism, HLD, CVA, and GERD presents with b/l leg swelling and nausea for "weeks" and back pain for several days admitted for acute CHF exacerbation. #Acute on Chronic Diastolic CHF Exacerbation; Initial BNP 19k, b/l LE pitting edema, bibasilar crackles -Daily weights, I/Os, fluid restriction -Cardio consulted; will continue Lasix 40 BID IV -Cont O2 NC, currently on 2L intermittently #New 4 cm L Hepatic Lobe lesion; in setting of hx of breast cancer and myelodysplasia -Onc consulted- Dr. Sullivan spoke to pt at length today, and pt agrees to have breast cancer markers (CA 27,29) and colon cancer markers (CEA) (last colonoscopy was about 1 year ago and negative, so less likely from colon) instead of liver biopsy at this time; if findings are from breast ca, adjustments can be made to hormonal therapy; can consider bone scan as pt reports back pain (?mets vs pain from lying in bed) -on letrozole for breast ca tx -resuming Eliquis #UTI #leukocytosis; UCx +Kleb Pneumonia ESBL -Per ID, Ertapenem 0.5 gm QD (09/26) -Leukocytosis increased -repeat UA and culture requested given dysuria, pt incontinent and refusing straight cath, will continue to treat #Hyponatremia; likely 2/2 fluid overload. Improving. -Fluid restriction -IV diuresis -Renal consulted #pruritis, generalized -has been present for weeks per pt -especially ears -Claritin daily -Eucerin #MAURICE on CKD; 3.0-->3.3. (baseline ~2.0-2.5 per EMR) -Hold amlodipine, hydralazine to allow for pressure drop and prevent hypoperfusion from IV Lasix -serial BMPs to monitor Cr (baseline near 2) -Renal consulted -renally dose all meds -monitor because of Lasix use #Anemia; likely multi-factorial in setting of CKD, myelodysplasia, r/o GI bleed. s/p 1 dose of IV Venofer -Hb 7.3 (was 8.3 s/p 3U pRBCs last admission 08/24); Fe 31, TIBC 202, Fe sat 15, Ferr 986.2 -During last admission, was seen by heme with recommendation for outpt workup -Tranfuse PRN to maintain Hgb >7 -FOBT neg #HTN; Stable. Cont home med: Carvedilol 25 BID. Per cardio, will cont rest of home meds when BP stable #Generalized abdominal pain; 2/2 constipation vs. liver mass -Oxycodone 5mg Q6H PRN for pain, Diclofenac cream -Miralax 17 gm BID for constipation -QTc 484, try to avoid Zofran for nausea/vomiting #Back pain -no known fall -Oxycodone 5 PRN for pain -PT #Hypothyroidism; Cont home meds: Synthroid 100 #Prophylaxis DVT: Cont home Eliquis 2.5 BID FEN -Fluid restriction -monitor Na, Cl, and Cr -sodium/diabetic diet Dispo -med/surg -Pt has MOLST on file, however specified that she wants FULL CODE. Visit type - Emergency Visit Emergency Visit: Yes ED Registration Date: 09/24/19 Care time: The patient presented to the Emergency Department on the above date and was hospitalized for further evaluation of their emergent condition. - New Patient This patient is new to me today: No - Critical Care Critical Care patient: No ATTENDING PHYSICIAN STATEMENT I saw and evaluated the patient. I reviewed the resident's note and discussed the case with the resident. I agree with the resident's findings and plan as documented. SUBJECTIVE: OBJECTIVE: ASSESSMENT AND PLAN:
--- NOTE | 2019-10-01 17:34 | PN ---
Progress Note, Physician History of Present Illness: AWAKE IN BED DENIES DYSURIA NO C/O FEVER/CHILLS - Current Medication List Current Medications: Active Medications Apixaban (Eliquis -) 2.5 mg PO BID [facility] Carvedilol (Coreg -) 25 mg PO BID [facility] Last Admin: 10/01/19 10:01 Dose: 25 mg Documented by: Docusate Sodium (Colace -) 300 mg PO HS [facility] Furosemide (Lasix Injection -) 40 mg IVPUSH BID@0600,1400 [facility] Last Admin: 10/01/19 14:30 Dose: 40 mg Documented by: Hydralazine HCl (Apresoline -) 10 mg PO TID [facility] Last Admin: 10/01/19 14:30 Dose: 10 mg Documented by: Ertapenem 0.5 gm/ Sodium (Chloride) 50 mls @ 100 mls/hr IVPB DAILY [facility] Last Admin: 10/01/19 11:24 Dose: 100 mls/hr Documented by: Insulin Aspart (Novolog Vial Sliding Scale -) 1 vial SQ ACHS [facility]; Protocol Last Admin: 10/01/19 12:53 Dose: 2 units Documented by: Lactobacillus Acidophilus (Bacid -) 1 tab PO DAILY [facility] Last Admin: 10/01/19 10:01 Dose: 1 tab Documented by: Letrozole (Femara -) 2.5 mg PO DAILY [facility] Last Admin: 10/01/19 10:01 Dose: 2.5 mg Documented by: Levothyroxine Sodium (Synthroid -) 100 mcg PO ACBK [facility] Last Admin: 10/01/19 06:39 Dose: 100 mcg Documented by: Loratadine (Claritin -) 10 mg PO DAILY [facility] Last Admin: 10/01/19 10:01 Dose: 10 mg Documented by: Non-Formulary Medication (Diclofenac Sodium [Diclofenac Sodium]) 2 gm TP Q8H PRN PRN Reason: PAIN Oxycodone HCl (Roxicodone -) 5 mg PO Q6H PRN PRN Reason: PAIN LEVEL 6-10 Last Admin: 10/01/19 10:00 Dose: 5 mg Documented by: Pantoprazole Sodium (Protonix -) 40 mg PO DAILY [facility] Last Admin: 10/01/19 10:01 Dose: 40 mg Documented by: Polyethylene Glycol (Miralax (For Daily Use) -) 17 gm PO BID [facility] Last Admin: 10/01/19 10:02 Dose: Not Given Documented by: Simethicone (Mylicon -) 80 mg PO Q4H PRN PRN Reason: GAS - Objective Vital Signs: Vital Signs Temperature 98.2 F 10/01/19 14:00 Pulse Rate 93 H 10/01/19 14:00 Respiratory Rate 10/01/19 14:00 Blood Pressure 120/72 10/01/19 14:00 O2 Sat by Pulse Oximetry (%) 100 09/30/19 21:00 Constitutional: Yes: No Distress Eyes: Yes: Conjunctiva Clear Cardiovascular: Yes: Regular Rate and Rhythm, S1, S2 Respiratory: Yes: CTA Bilaterally Gastrointestinal: Yes: Normal Bowel Sounds, Soft Edema: No Labs: CBC, BMP 10/01/19 08:18 10/01/19 08:18 INR, PTT INR 1.59 (0.83-1.09) H 10/01/19 08:18 Assessment/Plan CHF UTI ESBL LEUKOCYTOSIS AZOTEMIA CONTINUE ERTAPENEM 500MG QD CONTACT PRECAUTIONS
--- NOTE | 2019-10-01 19:58 | PN ---
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 s/p L lumpectomy, RT 2013 and ongoing letrozole adm now w MAURICE, chf. Imaging concerning for liver met She c/o back pain and excessive sleepiness. She expresses general frustration w being in hosp and unable to fully grasp the new findings PE elderly female NAD lungs-dec bs cvs-S1S2 breast- L lat ecchymosis (s/p fall), no discrete mass or ax LA bilat abd-soft, NT ext-1+ edema bilat LE Imp: elderly female w mult co-morbidities. 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 I revd that the liver lesion may represent adv breast cancer and suggest checking tumor marker before considering bx. If elev ca 27.29, would change hormonotx. Would consider obtaining bone scan to further eval back pain. In terms of the severe anemia, would cont transfusional support, has not responded to ozzie in past and now has met process, check iron studies (def in past and I believe there was fairly recent colonoscopy), CEA,and send flow cytom, cytogen, fish mds. She notes that she would not repeat bm bx (had 30y ago reportedly) She is in agreement w pursuing a more conservative approach given her adv age and mult signif co-morbidities have d/w team have d/w Dr Salinas
[2019-10-01] MEDS ORDERED: LIDOCAINE PATCH REMOVAL MC SCH (22:00)
[2019-10-01] MEDS: DOCUSATE SODIUM 100 MG CAPSULE (FP) PO SCH (22:04)
[2019-10-01] MEDS: APIXABAN 2.5 MG TABLET PO SCH (22:05)
[2019-10-02] MEDS: FUROSEMIDE 40 MG/4 ML INJECTABLE VIAL IVPUSH SCH ×2 (06:43→14:08)
[2019-10-02] MEDS: INSULIN SLIDING SCALE (NOVOLOG) 1 VIAL SQ SCH ×4 (06:43→21:24)
[2019-10-02] MEDS: LEVOTHYROXINE NA 100 MCG TABLET (FP) PO SCH (06:43)
[2019-10-02] MEDS: hydrALAZINE HCL 10 MG TABLET PO SCH ×3 (06:43→21:24)
--- NOTE | 2019-10-02 08:27 | PN ---
Progress Note, Physician Chief Complaint: sob History of Present Illness: very unhappy. back hurts b/c of positioning in bed. buttocks hurt. sob and swelling is worsening over past several days. not urinating copiously after iv lasix dose. however she is very nervous about increasing lasix harming her kidneys. i explained to her that: 1) what is harming her kidneys at the moment is severe volume overload and that the only hope of improving kidney function (which is quite probable) is diuresing better 2) it will become intolerable and potentially life threatening to let her remain volume overloaded to this extent, and kidney function may deteriorate progressively--will need dialysis no palp, syncope prior chart reviewed: 04/26 admit with CHF, did not diurese to lasix 40 iv BID, increased to 80 BID and required metolazone 2.5 for 2 days 08/24 admit with CHF, was taking lasix 40 po bid at home, given 40 IV QD but did not diurese, increased to 40 IV bid for one day, discharged home the next day on lasix 60 po bid (not 80). no cigs - Current Medication List Current Medications: Active Medications Apixaban (Eliquis -) 2.5 mg PO BID [facility] Last Admin: 10/01/19 22:05 Dose: 2.5 mg Documented by: Carvedilol (Coreg -) 25 mg PO BID [facility] Last Admin: 10/01/19 22:05 Dose: 25 mg Documented by: Docusate Sodium (Colace -) 300 mg PO HS [facility] Last Admin: 10/01/19 22:04 Dose: 300 mg Documented by: Furosemide (Lasix Injection -) 40 mg IVPUSH BID@0600,1400 [facility] Last Admin: 10/02/19 06:43 Dose: 40 mg Documented by: Hydralazine HCl (Apresoline -) 10 mg PO TID [facility] Last Admin: 10/02/19 06:43 Dose: 10 mg Documented by: Ertapenem 0.5 gm/ Sodium (Chloride) 50 mls @ 100 mls/hr IVPB DAILY [facility] Last Admin: 10/01/19 11:24 Dose: 100 mls/hr Documented by: Insulin Aspart (Novolog Vial Sliding Scale -) 1 vial SQ ACHS [facility]; Protocol Last Admin: 10/02/19 06:43 Dose: Not Given Documented by: Lactobacillus Acidophilus (Bacid -) 1 tab PO DAILY [facility] Last Admin: 10/01/19 10:01 Dose: 1 tab Documented by: Letrozole (Femara -) 2.5 mg PO DAILY [facility] Last Admin: 10/01/19 10:01 Dose: 2.5 mg Documented by: Levothyroxine Sodium (Synthroid -) 100 mcg PO ACBK [facility] Last Admin: 10/02/19 06:43 Dose: 100 mcg Documented by: Loratadine (Claritin -) 10 mg PO DAILY [facility] Last Admin: 10/01/19 10:01 Dose: 10 mg Documented by: Non-Formulary Medication (Diclofenac Sodium [Diclofenac Sodium]) 2 gm TP Q8H PRN PRN Reason: PAIN Oxycodone HCl (Roxicodone -) 5 mg PO Q6H PRN PRN Reason: PAIN LEVEL 6-10 Last Admin: 10/01/19 22:05 Dose: 5 mg Documented by: Pantoprazole Sodium (Protonix -) 40 mg PO DAILY [facility] Last Admin: 10/01/19 10:01 Dose: 40 mg Documented by: Polyethylene Glycol (Miralax (For Daily Use) -) 17 gm PO BID [facility] Last Admin: 10/01/19 22:06 Dose: Not Given Documented by: Simethicone (Mylicon -) 80 mg PO Q4H PRN PRN Reason: GAS - Objective Vital Signs: Vital Signs Temperature 98.7 F 10/01/19 22:00 Pulse Rate 99 H 10/02/19 06:00 Respiratory Rate 18 10/02/19 06:00 Blood Pressure 122/55 L 10/02/19 06:00 O2 Sat by Pulse Oximetry (%) 98 10/01/19 21:00 Constitutional: Yes: No Distress, Calm Eyes: No: Sclera Icterus HENT: No: Nasal Congestion Cardiovascular: Yes: Regular Rate and Rhythm, Pulse Irregular, JVD, S1, S2, Other (PMI non diplaced). No: Gallop, Murmur Respiratory: Yes: Regular. No: Accessory Muscle Use Gastrointestinal: Yes: Normal Bowel Sounds, Soft. No: Tenderness Musculoskeletal: Yes: Other (No kyphosis) Extremities: No: Cold, Cyanosis Edema: Yes (1+ shins) Integumentary: No: Jaundice Neurological: Yes: Alert, Oriented (x3) Psychiatric: No: Agitated Labs: INR, PTT INR 1.59 (0.83-1.09) H 10/01/19 08:18 Assessment/Plan echo 03/2019 nl LV function, mild MR, mild TR, PASP at least 49 mmHg IMP/REC: Acute diastolic heart failure exacerbation: - recent echo nl LV function - no signs acs - no reliable wts trend here - home lasix dose 80 bid, receiving 40 IV bid here--likely under-dosed. - continue lasix, holding aldactone - baseline creat is 2-2.5. BUN/Cr 100/3.4 on admission in presence of marked volume overload = cardiorenal syndrome. BUN climbing, creat fluctuating essentially stable, due to underdiuresis with lasix dose well below prior required dose needed to diurese her on prior hospital admit (required lasix 80 iv bid with metolazone 2.5 then). in setting of decreased GFR, she may need even higher bolus dose of lasix to deliver adequate drug volume to the nephrons to affect diuresis. -increase lasix to 80 iv bid, first dose now with metolazone 2.5 x 1. explained plan and rationale to pt in detail, questions were answered -start nitrates for cardiorenal syndrome -repeat echo to rule out progressive LV or RV systolic dysfuntion, in light of bun/creatinine behavior HTN: - bp stable - cont current meds crow on CKD: - Baseline creat from last admission is 2-2.5, elevated now, likely cardiorenal - renal following PAF: -cont coreg for rate control -cont eliquis low dose (age, creatinine) liver mass: -heme/onc following anemia: -hgb 7s, stable -? sec to CKD -per primary team, heme-onc
[2019-10-02 08:31] LABS: BASO % 1.4 % (0-2.0); CREATININE 3.3 mg/dL (0.55-1.3); EOS % 9.7 % (0-4.5); HEMATOCRIT 22.2 % (32.4-45.2); LYMPH % 8.2 % (8-40); MAGNESIUM 2.2 mg/dL (1.8-2.4); MCH 30.3 pg (25.7-33.7); MCHC 31.8 g/dl (32.0-36.0); MEAN CELL VOLUME 95.4 fl (80-96); MEAN PLT VOLUME 8.9 fl (7.5-11.1); MONO % 11.7 % (3.8-10.2); PHOSPHOROUS 5.3 mg/dL (2.5-4.9); PLATELET COUNT 118 K/MM3 (134-434); POTASSIUM 4.5 mmol/L (3.5-5.1); RBC 2.32 M/mm3 (3.60-5.2); RDW 19.8 % (11.6-15.6); WHITE BLOOD COUNT 17.7 K/mm3 (4.0-10.0)
[2019-10-02 08:34] LABS: BLOOD UREA NITROGEN 109.6 mg/dL (7-18)
[2019-10-02] MEDS ORDERED: POTASSIUM CHLORIDE TABS 20 MEQ TABLET.ER (FP) PO ONE (08:39)
[2019-10-02] MEDS: APIXABAN 2.5 MG TABLET PO SCH ×2 (09:02→21:24)
[2019-10-02] MEDS: PANTOPRAZOLE 40 MG TABLET PO SCH (09:02)
[2019-10-02] MEDS: CARVEDILOL 25 MG TABLET (FP) PO SCH ×2 (09:02→21:24)
[2019-10-02] MEDS: LETROZOLE 2.5 MG TABLET (FP) PO SCH (09:02)
[2019-10-02] MEDS: LACTOBACILLUS ACIDOPHILUS 1 TABLET PO SCH (09:02)
[2019-10-02] MEDS: LORATADINE 10 MG TABLET PO SCH (09:02)
[2019-10-02] MEDS: POLYETHYLENE GLYCOL 3350 119 GM BTL PO SCH ×2 (09:02→21:24)
[2019-10-02] MEDS: oxyCODONE HCL 5 MG TABLET PO PRN ×2 (09:20→22:35)
[2019-10-02] MEDS: ERTAPENEM SODIUM 0.5 GM in SODIUM CHLORIDE 50 ML IVPB SCH (10:11)
--- NOTE | 2019-10-02 10:39 | PN ---
<Hakeem Browne - Last Filed: 10/02/19 17:00> Physical Exam: SUBJECTIVE: Patient seen and examined at bedside. No acute events overnight. OBJECTIVE: Vital Signs Period Temp Pulse Resp BP Sys/Hernandez Pulse Ox Last 24 Hr 98.2 F-98.7 F 93-111 18-20 120-152/55-72 98 GENERAL: NAD HEAD: Normal with no signs of trauma. ENT: MMM. NECK: Trachea midline, full range of motion, supple. LUNGS: Clear Bilaterally. HEART: Irregularly irregular ABDOMEN: +Suprapubic tenderness. EXTREMITIES: No significant edema PSYCH: Normal mood, normal affect. Laboratory Results - last 24 hr 10/01/19 10/01/19 10/01/19 08:18 11:27 17:45 WBC RBC Hgb Hct MCV MCH MCHC RDW Plt Count MPV Absolute Neuts (auto) Neutrophils % Neutrophils % (Manual) 53.2 Band Neutrophils % 3.9 Lymphocytes % Lymphocytes % (Manual) 10.4 D Monocytes % Monocytes % (Manual) 13 H Eosinophils % Eosinophils % (Manual) 15.6 H Basophils % Basophils % (Manual) 0.0 Myelocytes % (Man) 0 D Promyelocytes % (Man) 0 D Blast Cells % (Manual) 0 Nucleated RBC % 0 Metamyelocytes 0 Hypochromia 0 Platelet Estimate Decreased Polychromasia 1+ Poikilocytosis 1+ Basophilic Stippling 2+ Anisocytosis 1+ Microcytosis 1+ Macrocytosis 0 Spherocytes 1+ Tear Drop Cells 1+ Stomatocytes 1+ Fragmented RBCs 1+ Sodium Potassium Chloride Carbon Dioxide Anion Gap BUN Creatinine Est GFR (CKD-EPI)AfAm Est GFR (CKD-EPI)NonAf POC Glucometer 192 169 Random Glucose Calcium Phosphorus Magnesium 10/01/19 10/02/19 10/02/19 20:54 06:42 07:10 WBC 17.7 H RBC 2.32 L Hgb 7.0 L Hct 22.2 L MCV 95.4 MCH 30.3 MCHC 31.8 L RDW 19.8 H Plt Count 118 L MPV 8.9 Absolute Neuts (auto) 12.2 H Neutrophils % 69.0 Neutrophils % (Manual) Band Neutrophils % Lymphocytes % 8.2 Lymphocytes % (Manual) Monocytes % 11.7 H Monocytes % (Manual) Eosinophils % 9.7 H Eosinophils % (Manual) Basophils % 1.4 Basophils % (Manual) Myelocytes % (Man) Promyelocytes % (Man) Blast Cells % (Manual) Nucleated RBC % 0 Metamyelocytes Hypochromia Platelet Estimate Polychromasia Poikilocytosis Basophilic Stippling Anisocytosis Microcytosis Macrocytosis Spherocytes Tear Drop Cells Stomatocytes Fragmented RBCs Sodium Potassium Chloride Carbon Dioxide Anion Gap BUN Creatinine Est GFR (CKD-EPI)AfAm Est GFR (CKD-EPI)NonAf POC Glucometer 227 130 Random Glucose Calcium Phosphorus Magnesium 10/02/19 10/02/19 07:10 10:29 WBC RBC Hgb Hct MCV MCH MCHC RDW Plt Count MPV Absolute Neuts (auto) Neutrophils % Neutrophils % (Manual) Band Neutrophils % Lymphocytes % Lymphocytes % (Manual) Monocytes % Monocytes % (Manual) Eosinophils % Eosinophils % (Manual) Basophils % Basophils % (Manual) Myelocytes % (Man) Promyelocytes % (Man) Blast Cells % (Manual) Nucleated RBC % Metamyelocytes Hypochromia Platelet Estimate Polychromasia Poikilocytosis Basophilic Stippling Anisocytosis Microcytosis Macrocytosis Spherocytes Tear Drop Cells Stomatocytes Fragmented RBCs Sodium 134 L Potassium 4.5 Chloride 97 L Carbon Dioxide 25 Anion Gap 12 BUN 109.6 H* Creatinine 3.3 H Est GFR (CKD-EPI)AfAm 13.66 Est GFR (CKD-EPI)NonAf 11.78 POC Glucometer 197 Random Glucose 129 H Calcium 8.0 L Phosphorus 5.3 H Magnesium 2.2 Active Medications Generic Name Dose Route Start Last Admin Trade Name Freq PRN Reason Stop Dose Admin Apixaban 2.5 mg 10/01/19 22:00 10/02/19 09:02 Eliquis - PO 2.5 mg BID [facility] Administration Carvedilol 25 mg 10/01/19 10:00 10/02/19 09:02 Coreg - PO 25 mg BID [facility] Administration Docusate Sodium 300 mg 10/01/19 22:00 10/01/19 22:04 Colace - PO 300 mg HS [facility] Administration Furosemide 40 mg 10/01/19 06:00 10/02/19 06:43 Lasix Injection - IVPUSH 40 mg BID@0600,1400 [facility] Administration Hydralazine HCl 10 mg 09/29/19 14:00 10/02/19 06:43 Apresoline - PO 10 mg TID [facility] Administration Ertapenem 0.5 gm/ Sodium 50 mls @ 100 mls/hr 10/01/19 10:00 10/02/19 10:11 Chloride IVPB 100 mls/hr DAILY [facility] Administration Insulin Aspart 1 vial 10/01/19 07:00 10/02/19 06:43 Novolog Vial Sliding Scale - SQ Not Given ACHS [facility] Protocol Lactobacillus Acidophilus 1 tab 09/29/19 14:30 10/02/19 09:02 Bacid - PO 1 tab DAILY [facility] Administration Letrozole 2.5 mg 10/01/19 10:00 10/02/19 09:02 Femara - PO 2.5 mg DAILY [facility] Administration Levothyroxine Sodium 100 mcg 10/01/19 07:00 10/02/19 06:43 Synthroid - PO 100 mcg ACBK [facility] Administration Loratadine 10 mg 10/01/19 10:00 10/02/19 09:02 Claritin - PO 10 mg DAILY [facility] Administration Non-Formulary Medication 2 gm 09/30/19 23:14 Diclofenac Sodium [Diclofenac Sodium] TP Q8H PRN PAIN Oxycodone HCl 5 mg 10/01/19 01:38 10/02/19 09:20 Roxicodone - PO 5 mg Q6H PRN Administration PAIN LEVEL 6-10 Pantoprazole Sodium 40 mg 10/01/19 10:00 10/02/19 09:02 Protonix - PO 40 mg DAILY [facility] Administration Polyethylene Glycol 17 gm 10/01/19 10:00 10/02/19 09:02 Miralax (For Daily Use) - PO Not Given BID [facility] Simethicone 80 mg 09/30/19 23:14 Mylicon - PO Q4H PRN GAS ASSESSMENT/PLAN: 89F from [facility] with pmhx of diastolic CHF, a-fib (on Eliquis), CKD, breast cancer s/p mastectomy, myelodysplasia, IDDM type 2, hypothyroidism, HLD, CVA, and GERD presents with b/l leg swelling and nausea for "weeks" and back pain for several days admitted for acute CHF exacerbation. #Acute on Chronic Diastolic CHF Exacerbation; Initial BNP 19k, b/l LE pitting edema, bibasilar crackles -Daily weights, I/Os, fluid restriction -Cardio consulted; will Increase lasix to 80 iv bid, first dose now with metolazone 2.5 x 1. -Cont O2 NC, currently on 2L intermittently #New 4 cm L Hepatic Lobe lesion; in setting of hx of breast cancer and myelodysplasia -Onc consulted- Dr. Sullivan spoke to pt at length, and pt agrees to have breast cancer markers (CA 27,29) and colon cancer markers (CEA) (last colonoscopy was about 1 year ago and negative, so less likely from colon) instead of liver biopsy at this time; if findings are from breast ca, adjustments can be made to hormonal therapy; can consider bone scan as pt reports back pain (?mets vs pain from lying in bed) -on letrozole for breast ca tx -Pathology Requisition form filed out for Cytogenetics, FISH, and Cytometry . Pathology department called. Left voicemail. Will try again tomorrow. -resuming Eliquis #UTI #leukocytosis; UCx +Kleb Pneumonia ESBL -Per ID, Ertapenem 0.5 gm QD (09/26) -Leukocytosis increased -repeat UA and culture requested given dysuria, pt incontinent and refusing straight cath, will continue to treat #Hyponatremia; likely 2/2 fluid overload. Improving. -Fluid restriction -IV diuresis -Renal consulted #pruritis, generalized -has been present for weeks per pt -especially ears -Claritin daily -Eucerin #MAURICE on CKD; 3.0-->3.3. (baseline ~2.0-2.5 per EMR) -Hold amlodipine, hydralazine to allow for pressure drop and prevent hypoperfusion from IV Lasix -serial BMPs to monitor Cr (baseline near 2) -Renal consulted -renally dose all meds -monitor because of Lasix use #Anemia; likely multi-factorial in setting of CKD, myelodysplasia -Hb 7.1 (was 8.3 s/p 3U pRBCs last admission 08/24); Fe 31, TIBC 202, Fe sat 15, Ferr 986.2. Will transfuse 1 unit. -Lab values likely represent Anemia of Chronic Disease -Tranfuse PRN to maintain Hgb >7 -FOBT neg #HTN; Stable. Cont home med: Carvedilol 25 BID. Per cardio, will cont rest of home meds when BP stable #Generalized abdominal pain; 2/2 constipation vs. liver mass -Oxycodone 5mg Q6H PRN for pain, Diclofenac cream -Miralax 17 gm BID for constipation -QTc 484, try to avoid Zofran for nausea/vomiting #Back pain -no known fall -Oxycodone 5 PRN for pain -PT #Hypothyroidism; Cont home meds: Synthroid 100 #Prophylaxis DVT: Cont home Eliquis 2.5 BID FEN -Fluid restriction -monitor Na, Cl, and Cr -sodium/diabetic diet Dispo -med/surg - FULL CODE. Visit type - Emergency Visit Emergency Visit: Yes ED Registration Date: 09/24/19 Care time: The patient presented to the Emergency Department on the above date and was hospitalized for further evaluation of their emergent condition. - New Patient This patient is new to me today: No - Critical Care Critical Care patient: No - Discharge Referral Referred to [facility] No ATTENDING PHYSICIAN STATEMENT I saw and evaluated the patient. I reviewed the resident's note and discussed the case with the resident. I agree with the resident's findings and plan as documented. SUBJECTIVE: OBJECTIVE: ASSESSMENT AND PLAN: <Tomasz Kirkpatrick - Last Filed: 10/02/19 17:58> Physical Exam: SUBJECTIVE: Patient seen and examined OBJECTIVE: Vital Signs Period Temp Pulse Resp BP Sys/Hernandez Pulse Ox Last 24 Hr 97.8 F-98.7 F 99-111 18-20 122-152/55-66 98 GENERAL: The patient is awake, alert, and fully oriented, in no acute distress. HEAD: Normal with no signs of trauma. EYES: PERRL, extraocular movements intact, sclera anicteric, conjunctiva clear. No ptosis. ENT: Ears normal, nares patent, oropharynx clear without exudates, moist mucous membranes. NECK: Trachea midline, full range of motion, supple. LUNGS: Breath sounds equal, clear to auscultation bilaterally, no wheezes, no crackles, no accessory muscle use. HEART: Regular rate and rhythm, S1, S2 without murmur, rub or gallop. ABDOMEN: Soft, nontender, nondistended, normoactive bowel sounds, no guarding, no rebound, no hepatosplenomegaly, no masses. EXTREMITIES: 2+ pulses, warm, well-perfused, no edema. NEUROLOGICAL: Cranial nerves II through XII grossly intact. Normal speech, gait not observed. PSYCH: Normal mood, normal affect. SKIN: Warm, dry, normal turgor, no rashes or lesions noted Laboratory Results - last 24 hr 10/01/19 10/02/19 10/02/19 20:54 06:42 07:10 WBC 17.7 H RBC 2.32 L Hgb 7.0 L Hct 22.2 L MCV 95.4 MCH 30.3 MCHC 31.8 L RDW 19.8 H Plt Count 118 L MPV 8.9 Absolute Neuts (auto) 12.2 H Neutrophils % 69.0 Neutrophils % (Manual) 61.0 Band Neutrophils % 3.0 Lymphocytes % 8.2 Lymphocytes % (Manual) 12.0 Monocytes % 11.7 H Monocytes % (Manual) 7 Eosinophils % 9.7 H Eosinophils % (Manual) 13.0 H Basophils % 1.4 Basophils % (Manual) 0.0 Myelocytes % (Man) 2 D Promyelocytes % (Man) 0 Blast Cells % (Manual) 0 Nucleated RBC % 0 Metamyelocytes 2 D Hypochromia 1+ Platelet Estimate Decreased Polychromasia 1+ Poikilocytosis 0 Basophilic Stippling 1+ Anisocytosis 1+ Microcytosis 1+ Macrocytosis 0 Sodium Potassium Chloride Carbon Dioxide Anion Gap BUN Creatinine Est GFR (CKD-EPI)AfAm Est GFR (CKD-EPI)NonAf POC Glucometer 227 130 Random Glucose Calcium Phosphorus Magnesium Anti-A Titer Blood Type Antibody Screen Crossmatch 10/02/19 10/02/19 10/02/19 07:10 10:29 16:31 WBC RBC Hgb Hct MCV MCH MCHC RDW Plt Count MPV Absolute Neuts (auto) Neutrophils % Neutrophils % (Manual) Band Neutrophils % Lymphocytes % Lymphocytes % (Manual) Monocytes % Monocytes % (Manual) Eosinophils % Eosinophils % (Manual) Basophils % Basophils % (Manual) Myelocytes % (Man) Promyelocytes % (Man) Blast Cells % (Manual) Nucleated RBC % Metamyelocytes Hypochromia Platelet Estimate Polychromasia Poikilocytosis Basophilic Stippling Anisocytosis Microcytosis Macrocytosis Sodium 134 L Potassium 4.5 Chloride 97 L Carbon Dioxide 25 Anion Gap 12 BUN 109.6 H* Creatinine 3.3 H Est GFR (CKD-EPI)AfAm 13.66 Est GFR (CKD-EPI)NonAf 11.78 POC Glucometer 197 171 Random Glucose 129 H Calcium 8.0 L Phosphorus 5.3 H Magnesium 2.2 Anti-A Titer Blood Type Antibody Screen Crossmatch 10/02/19 10/02/19 16:35 17:00 WBC RBC Hgb Hct MCV MCH MCHC RDW Plt Count MPV Absolute Neuts (auto) Neutrophils % Neutrophils % (Manual) Band Neutrophils % Lymphocytes % Lymphocytes % (Manual) Monocytes % Monocytes % (Manual) Eosinophils % Eosinophils % (Manual) Basophils % Basophils % (Manual) Myelocytes % (Man) Promyelocytes % (Man) Blast Cells % (Manual) Nucleated RBC % Metamyelocytes Hypochromia Platelet Estimate Polychromasia Poikilocytosis Basophilic Stippling Anisocytosis Microcytosis Macrocytosis Sodium Potassium Chloride Carbon Dioxide Anion Gap BUN Creatinine Est GFR (CKD-EPI)AfAm Est GFR (CKD-EPI)NonAf POC Glucometer Random Glucose Calcium Phosphorus Magnesium Anti-A Titer Cancelled Blood Type Cancelled Antibody Screen Cancelled Crossmatch See Detail Active Medications Generic Name Dose Route Start Last Admin Trade Name Freq PRN Reason Stop Dose Admin Apixaban 2.5 mg 10/01/19 22:00 10/02/19 09:02 Eliquis - PO 2.5 mg BID [facility] Administration Carvedilol 25 mg 10/01/19 10:00 10/02/19 09:02 Coreg - PO 25 mg BID [facility] Administration Docusate Sodium 300 mg 10/01/19 22:00 10/01/19 22:04 Colace - PO 300 mg HS [facility] Administration Furosemide 80 mg 10/03/19 06:00 Lasix Injection - IVPUSH BIDLASIX [facility] Hydralazine HCl 10 mg 09/29/19 14:00 10/02/19 14:08 Apresoline - PO 10 mg TID [facility] Administration Ertapenem 0.5 gm/ Sodium 50 mls @ 100 mls/hr 10/01/19 10:00 10/02/19 10:11 Chloride IVPB 100 mls/hr DAILY [facility] Administration Insulin Aspart 1 vial 10/01/19 07:00 10/02/19 16:51 Novolog Vial Sliding Scale - SQ 2 units ACHS [facility] Administration Protocol Lactobacillus Acidophilus 1 tab 09/29/19 14:30 10/02/19 09:02 Bacid - PO 1 tab DAILY [facility] Administration Letrozole 2.5 mg 10/01/19 10:00 10/02/19 09:02 Femara - PO 2.5 mg DAILY [facility] Administration Levothyroxine Sodium 100 mcg 10/01/19 07:00 10/02/19 06:43 Synthroid - PO 100 mcg ACBK [facility] Administration Loratadine 10 mg 10/01/19 10:00 10/02/19 09:02 Claritin - PO 10 mg DAILY [facility] Administration Nitroglycerin 0.5 inch 10/02/19 18:00 10/02/19 17:23 Nitro-Bid 2% Paste - TD 0.5 inch Q6HPO [facility] Administration Non-Formulary Medication 2 gm 09/30/19 23:14 Diclofenac Sodium [Diclofenac Sodium] TP Q8H PRN PAIN Oxycodone HCl 5 mg 10/01/19 01:38 10/02/19 09:20 Roxicodone - PO 5 mg Q6H PRN Administration PAIN LEVEL 6-10 Pantoprazole Sodium 40 mg 10/01/19 10:00 10/02/19 09:02 Protonix - PO 40 mg DAILY [facility] Administration Polyethylene Glycol 17 gm 10/01/19 10:00 10/02/19 09:02 Miralax (For Daily Use) - PO Not Given BID [facility] Simethicone 80 mg 09/30/19 23:14 10/02/19 14:25 Mylicon - PO 80 mg Q4H PRN Administration GAS ASSESSMENT/PLAN: Attending attestation: Patient seen and examined at bedside during my rounds. Patient endorses she is feeling terrible. When I asked her to elaborate on feeling terrible she states she is just tired. She states her shortness of breath is improving. Her hyponatremia is improving and now has a sodium of 134. On exam she is alert and awake. She is in no acute distress. Her pulse is irregular on cardiac exam. On lung exam she has bilateral crackles at the bases. There is trace bilateral lower extremity edema. Bilateral lower extremities are wrinkled and there is good evidence of diuresis on exam. Abdomen is soft nontender nondistended. There is some mild suprapubic tenderness. For the patient's acute on chronic CHF exacerbation which is likely diastolicIn the setting of having a recent echocardiogram with an ejection fraction of 50 to 55%. Continue Lasix. Follow- up cardiology. Cardiology consult noted and appreciated. Patient will have cytogenetics, FISH, and flow cytometry done given her 4 cm left hepatic lobe lesion in the setting of a history of breast cancer and myelodysplasia. Continue Synthroid. Continue stool softeners for constipation. Continue carvedilol for hypertension. Rest As per above.
[2019-10-02 12:12] LABS: ANISOCYTOSIS 1+; MACROCYTOSIS 0; PLATELET ESTIMATE DECREASED
[2019-10-02] MEDS ORDERED: METOLAZONE 2.5 MG TABLET (FP) PO ONE (16:26)
[2019-10-02] MEDS ORDERED: FUROSEMIDE 40 MG/4 ML INJECTABLE VIAL IVPUSH ONE (16:26)
[2019-10-02] MEDS ORDERED: PT OWN MED DRAWER 7, Y5N ONE (17:13)
[2019-10-02] MEDS: NITROGLYCERIN 2% OINTMENT - 1GM PACKET TD SCH (17:23)
--- NOTE | 2019-10-02 18:37 | PN ---
Progress Note, Physician History of Present Illness: Pt seen and examined at bedside. She is awake and alert. She does not feel much different than yesterday. - Current Medication List Current Medications: Active Medications Apixaban (Eliquis -) 2.5 mg PO BID [facility] Last Admin: 10/02/19 09:02 Dose: 2.5 mg Documented by: Carvedilol (Coreg -) 25 mg PO BID [facility] Last Admin: 10/02/19 09:02 Dose: 25 mg Documented by: Docusate Sodium (Colace -) 300 mg PO HS [facility] Last Admin: 10/01/19 22:04 Dose: 300 mg Documented by: Furosemide (Lasix Injection -) 80 mg IVPUSH BIDLASIX [facility] Hydralazine HCl (Apresoline -) 10 mg PO TID [facility] Last Admin: 10/02/19 14:08 Dose: 10 mg Documented by: Ertapenem 0.5 gm/ Sodium (Chloride) 50 mls @ 100 mls/hr IVPB DAILY [facility] Last Admin: 10/02/19 10:11 Dose: 100 mls/hr Documented by: Insulin Aspart (Novolog Vial Sliding Scale -) 1 vial SQ ACHS [facility]; Protocol Last Admin: 10/02/19 16:51 Dose: 2 units Documented by: Lactobacillus Acidophilus (Bacid -) 1 tab PO DAILY [facility] Last Admin: 10/02/19 09:02 Dose: 1 tab Documented by: Letrozole (Femara -) 2.5 mg PO DAILY [facility] Last Admin: 10/02/19 09:02 Dose: 2.5 mg Documented by: Levothyroxine Sodium (Synthroid -) 100 mcg PO ACBK [facility] Last Admin: 10/02/19 06:43 Dose: 100 mcg Documented by: Loratadine (Claritin -) 10 mg PO DAILY [facility] Last Admin: 10/02/19 09:02 Dose: 10 mg Documented by: Nitroglycerin (Nitro-Bid 2% Paste -) 0.5 inch TD Q6HPO [facility] Last Admin: 10/02/19 17:23 Dose: 0.5 inch Documented by: Non-Formulary Medication (Diclofenac Sodium [Diclofenac Sodium]) 2 gm TP Q8H PRN PRN Reason: PAIN Oxycodone HCl (Roxicodone -) 5 mg PO Q6H PRN PRN Reason: PAIN LEVEL 6-10 Last Admin: 10/02/19 09:20 Dose: 5 mg Documented by: Pantoprazole Sodium (Protonix -) 40 mg PO DAILY [facility] Last Admin: 10/02/19 09:02 Dose: 40 mg Documented by: Polyethylene Glycol (Miralax (For Daily Use) -) 17 gm PO BID [facility] Last Admin: 10/02/19 09:02 Dose: Not Given Documented by: Simethicone (Mylicon -) 80 mg PO Q4H PRN PRN Reason: GAS Last Admin: 10/02/19 14:25 Dose: 80 mg Documented by: - Objective Vital Signs: Vital Signs Temperature 98.4 F 10/02/19 18:00 Pulse Rate 96 H 10/02/19 18:00 Respiratory Rate 19 10/02/19 18:00 Blood Pressure 140/63 10/02/19 18:00 O2 Sat by Pulse Oximetry (%) 100 10/02/19 10:00 Constitutional: Yes: Calm Eyes: Yes: Conjunctiva Clear HENT: Yes: Atraumatic Neck: Yes: Supple Cardiovascular: Yes: S1, S2 Respiratory: Yes: CTA Bilaterally Gastrointestinal: Yes: Soft Genitourinary: Yes: Incontinence Musculoskeletal: Yes: WNL Edema: Yes Edema: LLE: 1+, RLE: 1+ Neurological: Yes: Oriented Psychiatric: Yes: Oriented Labs: CBC, BMP 10/02/19 07:10 10/02/19 07:10 INR, PTT INR 1.59 (0.83-1.09) H 10/01/19 08:18 Assessment/Plan Current Medications Generic Name Dose Route Start Last Admin Trade Name Freq PRN Reason Stop Dose Admin Apixaban 2.5 mg 10/01/19 22:00 10/02/19 09:02 Eliquis - PO 2.5 mg BID [facility] Administration Carvedilol 25 mg 10/01/19 10:00 10/02/19 09:02 Coreg - PO 25 mg BID [facility] Administration Docusate Sodium 300 mg 10/01/19 22:00 10/01/19 22:04 Colace - PO 300 mg HS [facility] Administration Furosemide 80 mg 10/03/19 06:00 Lasix Injection - IVPUSH BIDLASIX [facility] Hydralazine HCl 10 mg 09/29/19 14:00 10/02/19 14:08 Apresoline - PO 10 mg TID [facility] Administration Ertapenem 0.5 gm/ Sodium 50 mls @ 100 mls/hr 10/01/19 10:00 10/02/19 10:11 Chloride IVPB 100 mls/hr DAILY [facility] Administration Insulin Aspart 1 vial 10/01/19 07:00 10/02/19 16:51 Novolog Vial Sliding Scale - SQ 2 units ACHS [facility] Administration Protocol Lactobacillus Acidophilus 1 tab 09/29/19 14:30 10/02/19 09:02 Bacid - PO 1 tab DAILY [facility] Administration Letrozole 2.5 mg 10/01/19 10:00 10/02/19 09:02 Femara - PO 2.5 mg DAILY [facility] Administration Levothyroxine Sodium 100 mcg 10/01/19 07:00 10/02/19 06:43 Synthroid - PO 100 mcg ACBK [facility] Administration Loratadine 10 mg 10/01/19 10:00 10/02/19 09:02 Claritin - PO 10 mg DAILY [facility] Administration Nitroglycerin 0.5 inch 10/02/19 18:00 10/02/19 17:23 Nitro-Bid 2% Paste - TD 0.5 inch Q6HPO [facility] Administration Non-Formulary Medication 2 gm 09/30/19 23:14 Diclofenac Sodium [Diclofenac Sodium] TP Q8H PRN PAIN Oxycodone HCl 5 mg 10/01/19 01:38 10/02/19 09:20 Roxicodone - PO 5 mg Q6H PRN Administration PAIN LEVEL 6-10 Pantoprazole Sodium 40 mg 10/01/19 10:00 10/02/19 09:02 Protonix - PO 40 mg DAILY [facility] Administration Polyethylene Glycol 17 gm 10/01/19 10:00 10/02/19 09:02 Miralax (For Daily Use) - PO Not Given BID [facility] Simethicone 80 mg 09/30/19 23:14 10/02/19 14:25 Mylicon - PO 80 mg Q4H PRN Administration GAS Impression 1. proteinuria 2. hypothyroid 3. HTN 4. DM 5. fluid overload 6. breast cancer 7. anemia 8. CKD 9. CHF 10. hyponatremia 11. hypokalemia Plan - lasix dose increased - monitor renal function closely - repeat labs in am - monitor potassium - cardio input appreciated
[2019-10-02] MEDS: DOCUSATE SODIUM 100 MG CAPSULE (FP) PO SCH (21:24)
[2019-10-03] MEDS: NITROGLYCERIN 2% OINTMENT - 1GM PACKET TD SCH ×4 (00:37→17:28)
[2019-10-03] MEDS: FUROSEMIDE 40 MG/4 ML INJECTABLE VIAL IVPUSH SCH ×2 (06:27→13:16)
[2019-10-03] MEDS: hydrALAZINE HCL 10 MG TABLET PO SCH ×3 (06:27→21:12)
[2019-10-03] MEDS: INSULIN SLIDING SCALE (NOVOLOG) 1 VIAL SQ SCH ×4 (06:28→21:18)
[2019-10-03] MEDS: LEVOTHYROXINE NA 100 MCG TABLET (FP) PO SCH (06:31)
[2019-10-03] MEDS: oxyCODONE HCL 5 MG TABLET PO PRN ×3 (06:31→23:55)
--- NOTE | 2019-10-03 07:45 | PN ---
Progress Note, Physician - Current Medication List Current Medications: Active Medications Apixaban (Eliquis -) 2.5 mg PO BID [facility] Last Admin: 10/02/19 21:24 Dose: 2.5 mg Documented by: Carvedilol (Coreg -) 25 mg PO BID [facility] Last Admin: 10/02/19 21:24 Dose: 25 mg Documented by: Docusate Sodium (Colace -) 300 mg PO HS [facility] Last Admin: 10/02/19 21:24 Dose: 300 mg Documented by: Furosemide (Lasix Injection -) 80 mg IVPUSH BIDLASIX [facility] Last Admin: 10/03/19 06:27 Dose: 80 mg Documented by: Hydralazine HCl (Apresoline -) 10 mg PO TID [facility] Last Admin: 10/03/19 06:27 Dose: 10 mg Documented by: Ertapenem 0.5 gm/ Sodium (Chloride) 50 mls @ 100 mls/hr IVPB DAILY [facility] Last Admin: 10/02/19 10:11 Dose: 100 mls/hr Documented by: Insulin Aspart (Novolog Vial Sliding Scale -) 1 vial SQ ACHS [facility]; Protocol Last Admin: 10/03/19 06:28 Dose: Not Given Documented by: Lactobacillus Acidophilus (Bacid -) 1 tab PO DAILY [facility] Last Admin: 10/02/19 09:02 Dose: 1 tab Documented by: Letrozole (Femara -) 2.5 mg PO DAILY [facility] Last Admin: 10/02/19 09:02 Dose: 2.5 mg Documented by: Levothyroxine Sodium (Synthroid -) 100 mcg PO ACBK [facility] Last Admin: 10/03/19 06:31 Dose: 100 mcg Documented by: Loratadine (Claritin -) 10 mg PO DAILY [facility] Last Admin: 10/02/19 09:02 Dose: 10 mg Documented by: Nitroglycerin (Nitro-Bid 2% Paste -) 0.5 inch TD Q6HPO [facility] Last Admin: 10/03/19 06:27 Dose: 0.5 inch Documented by: Non-Formulary Medication (Diclofenac Sodium [Diclofenac Sodium]) 2 gm TP Q8H PRN PRN Reason: PAIN Oxycodone HCl (Roxicodone -) 5 mg PO Q6H PRN PRN Reason: PAIN LEVEL 6-10 Last Admin: 10/03/19 06:31 Dose: 5 mg Documented by: Pantoprazole Sodium (Protonix -) 40 mg PO DAILY [facility] Last Admin: 10/02/19 09:02 Dose: 40 mg Documented by: Polyethylene Glycol (Miralax (For Daily Use) -) 17 gm PO BID [facility] Last Admin: 10/02/19 21:24 Dose: Not Given Documented by: Simethicone (Mylicon -) 80 mg PO Q4H PRN PRN Reason: GAS Last Admin: 10/02/19 14:25 Dose: 80 mg Documented by: - Objective Vital Signs: Vital Signs Temperature 98.0 F 10/03/19 05:00 Pulse Rate 97 H 10/03/19 06:00 Respiratory Rate 19 10/02/19 21:00 Blood Pressure 126/67 10/03/19 06:00 O2 Sat by Pulse Oximetry (%) 100 10/02/19 21:00 Labs: INR, PTT INR 1.59 (0.83-1.09) H 10/01/19 08:18
--- NOTE | 2019-10-03 07:46 | PN ---
Progress Note, Physician Chief Complaint: sob History of Present Illness: urinated a lot more after yest evening's lasix 80 with metolazone still sob and swollen c/o back pain no cp d/w'd dr georges: on prior admits when they use this type of intensive diuresis they achieve good volume effect but bun/creat goes up significantly (bun to >> 100). he had discussed HD with pt at that time, she declined - Current Medication List Current Medications: Active Medications Apixaban (Eliquis -) 2.5 mg PO BID [facility] Last Admin: 10/02/19 21:24 Dose: 2.5 mg Documented by: Carvedilol (Coreg -) 25 mg PO BID [facility] Last Admin: 10/02/19 21:24 Dose: 25 mg Documented by: Docusate Sodium (Colace -) 300 mg PO HS [facility] Last Admin: 10/02/19 21:24 Dose: 300 mg Documented by: Furosemide (Lasix Injection -) 80 mg IVPUSH BIDLASIX [facility] Last Admin: 10/03/19 06:27 Dose: 80 mg Documented by: Hydralazine HCl (Apresoline -) 10 mg PO TID [facility] Last Admin: 10/03/19 06:27 Dose: 10 mg Documented by: Ertapenem 0.5 gm/ Sodium (Chloride) 50 mls @ 100 mls/hr IVPB DAILY [facility] Last Admin: 10/02/19 10:11 Dose: 100 mls/hr Documented by: Insulin Aspart (Novolog Vial Sliding Scale -) 1 vial SQ ACHS [facility]; Protocol Last Admin: 10/03/19 06:28 Dose: Not Given Documented by: Lactobacillus Acidophilus (Bacid -) 1 tab PO DAILY [facility] Last Admin: 10/02/19 09:02 Dose: 1 tab Documented by: Letrozole (Femara -) 2.5 mg PO DAILY [facility] Last Admin: 10/02/19 09:02 Dose: 2.5 mg Documented by: Levothyroxine Sodium (Synthroid -) 100 mcg PO ACBK [facility] Last Admin: 10/03/19 06:31 Dose: 100 mcg Documented by: Loratadine (Claritin -) 10 mg PO DAILY [facility] Last Admin: 10/02/19 09:02 Dose: 10 mg Documented by: Nitroglycerin (Nitro-Bid 2% Paste -) 0.5 inch TD Q6HPO [facility] Last Admin: 10/03/19 06:27 Dose: 0.5 inch Documented by: Non-Formulary Medication (Diclofenac Sodium [Diclofenac Sodium]) 2 gm TP Q8H PRN PRN Reason: PAIN Oxycodone HCl (Roxicodone -) 5 mg PO Q6H PRN PRN Reason: PAIN LEVEL 6-10 Last Admin: 10/03/19 06:31 Dose: 5 mg Documented by: Pantoprazole Sodium (Protonix -) 40 mg PO DAILY [facility] Last Admin: 10/02/19 09:02 Dose: 40 mg Documented by: Polyethylene Glycol (Miralax (For Daily Use) -) 17 gm PO BID [facility] Last Admin: 10/02/19 21:24 Dose: Not Given Documented by: Simethicone (Mylicon -) 80 mg PO Q4H PRN PRN Reason: GAS Last Admin: 10/02/19 14:25 Dose: 80 mg Documented by: - Objective Vital Signs: Vital Signs Temperature 98.0 F 10/03/19 05:00 Pulse Rate 97 H 10/03/19 06:00 Respiratory Rate 19 10/02/19 21:00 Blood Pressure 126/67 10/03/19 06:00 O2 Sat by Pulse Oximetry (%) 100 10/02/19 21:00 Constitutional: Yes: No Distress, Calm Eyes: No: Sclera Icterus HENT: No: Nasal Congestion Cardiovascular: Yes: Pulse Irregular, JVD, S1, S2, Other (PMI non diplaced). No: Gallop, Murmur Respiratory: Yes: Regular, CTA Bilaterally. No: Accessory Muscle Use Gastrointestinal: Yes: Normal Bowel Sounds, Soft. No: Tenderness Musculoskeletal: Yes: Other (No kyphosis) Extremities: No: Cold, Cyanosis Edema: Yes (trace) Integumentary: No: Jaundice Neurological: Yes: Alert, Oriented (x3) Psychiatric: No: Agitated Labs: INR, PTT INR 1.59 (0.83-1.09) H 10/01/19 08:18 Assessment/Plan echo 03/2019 nl LV function, mild MR, mild TR, PASP at least 49 mmHg IMP/REC: Acute diastolic heart failure exacerbation: - recent echo nl LV function - no signs acs - no reliable wts trend here - home lasix dose 80 bid, receiving 40 IV bid here--likely under-dosed. - continue lasix, holding aldactone - baseline creat is 2-2.5. BUN/Cr 100/3.4 on admission in presence of marked volume overload = cardiorenal syndrome. BUN climbing, creat fluctuating essentially stable, due to underdiuresis with lasix dose well below prior required dose needed to diurese her on prior hospital admit (required lasix 80 iv bid with metolazone 2.5 then). in setting of decreased GFR, she may need even higher bolus dose of lasix to deliver adequate drug volume to the nephrons to affect diuresis. -received lasix to 80 iv bid, fwith metolazone 2.5 x 1--good diuresis response subjectively, slight decline in bed wt (?). Bun/Cr essentially unchanged today, Na stable (>130) -cont lasix 80 iv bid today, will re-dose metolazone in am (already received both lasix doses today) -per d/w dr georges it is likely her renal fxn will not improve with effective diuresis, and pt will need to decide btw HD and palliative care -cont nitrates for cardiorenal syndrome -repeat echo to rule out progressive LV or RV systolic dysfuntion, in light of bun/creatinine behavior HTN: - bp stable - cont current meds crow on CKD: - Baseline creat from last admission is 2-2.5, elevated now, likely cardiorenal - renal following PAF: -cont coreg for rate control -cont eliquis low dose (age, creatinine) liver mass: -heme/onc following anemia: -hgb 7s, stable -? sec to CKD -per primary team, heme-onc
[2019-10-03 07:49] LABS: HEMATOCRIT 23.9 % (32.4-45.2); HEMOGLOBIN 7.7 GM/dL (10.7-15.3); MCH 29.8 pg (25.7-33.7); MEAN CELL VOLUME 92.9 fl (80-96); MEAN PLT VOLUME 8.6 fl (7.5-11.1); PLATELET COUNT 106 K/MM3 (134-434); RBC 2.57 M/mm3 (3.60-5.2); RDW 19.3 % (11.6-15.6); WHITE BLOOD COUNT 17.5 K/mm3 (4.0-10.0)
[2019-10-03 08:10] LABS: CARCINOEMBRYONIC ANTIGEN 6.4 ng/mL (0.0-4.7)
[2019-10-03 08:11] LABS: CALCIUM 8.1 mg/dL (8.5-10.1); CREATININE 3.3 mg/dL (0.55-1.3); MAGNESIUM 2.3 mg/dL (1.8-2.4); PHOSPHOROUS 5.4 mg/dL (2.5-4.9); POTASSIUM 4.7 mmol/L (3.5-5.1)
[2019-10-03 08:32] LABS: BLOOD UREA NITROGEN 110.2 mg/dL (7-18)
[2019-10-03] MEDS ORDERED: PT OWN MED DRAWER 7, Y5N ONE ×2 (09:09→18:45)
[2019-10-03] MEDS: APIXABAN 2.5 MG TABLET PO SCH ×2 (09:12→21:12)
[2019-10-03] MEDS: LACTOBACILLUS ACIDOPHILUS 1 TABLET PO SCH (09:13)
[2019-10-03] MEDS: LORATADINE 10 MG TABLET PO SCH (09:13)
[2019-10-03] MEDS: CARVEDILOL 25 MG TABLET (FP) PO SCH ×2 (09:13→21:12)
[2019-10-03] MEDS: PANTOPRAZOLE 40 MG TABLET PO SCH (09:13)
[2019-10-03] MEDS: LETROZOLE 2.5 MG TABLET (FP) PO SCH (09:13)
[2019-10-03] MEDS: POLYETHYLENE GLYCOL 3350 119 GM BTL PO SCH ×2 (09:13→21:13)
[2019-10-03] MEDS: ERTAPENEM SODIUM 0.5 GM in SODIUM CHLORIDE 50 ML IVPB SCH (10:29)
[2019-10-03] MEDS ORDERED: INSULIN (NOVOLOG) ASPART 100 UNITS/ML 10ML VIAL ONE (10:45)
[2019-10-03] MEDS ORDERED: METOLAZONE 2.5 MG TABLET (FP) PO ONE (14:23)
--- NOTE | 2019-10-03 14:43 | PN ---
Progress Note, Physician History of Present Illness: Pt seen and examined at bedside. Her urine output improved. - Current Medication List Current Medications: Active Medications Apixaban (Eliquis -) 2.5 mg PO BID [facility] Last Admin: 10/03/19 09:12 Dose: 2.5 mg Documented by: Carvedilol (Coreg -) 25 mg PO BID [facility] Last Admin: 10/03/19 09:13 Dose: 25 mg Documented by: Docusate Sodium (Colace -) 300 mg PO HS [facility] Last Admin: 10/02/19 21:24 Dose: 300 mg Documented by: Furosemide (Lasix Injection -) 80 mg IVPUSH BIDLASIX [facility] Last Admin: 10/03/19 13:16 Dose: 80 mg Documented by: Hydralazine HCl (Apresoline -) 10 mg PO TID [facility] Last Admin: 10/03/19 13:16 Dose: 10 mg Documented by: Ertapenem 0.5 gm/ Sodium (Chloride) 50 mls @ 100 mls/hr IVPB DAILY [facility] Last Admin: 10/03/19 10:29 Dose: 100 mls/hr Documented by: Insulin Aspart (Novolog Vial Sliding Scale -) 1 vial SQ ACHS [facility]; Protocol Last Admin: 10/03/19 10:42 Dose: 2 units Documented by: Lactobacillus Acidophilus (Bacid -) 1 tab PO DAILY [facility] Last Admin: 10/03/19 09:13 Dose: 1 tab Documented by: Letrozole (Femara -) 2.5 mg PO DAILY [facility] Last Admin: 10/03/19 09:13 Dose: 2.5 mg Documented by: Levothyroxine Sodium (Synthroid -) 100 mcg PO ACBK [facility] Last Admin: 10/03/19 06:31 Dose: 100 mcg Documented by: Loratadine (Claritin -) 10 mg PO DAILY [facility] Last Admin: 10/03/19 09:13 Dose: 10 mg Documented by: Nitroglycerin (Nitro-Bid 2% Paste -) 1 inch TD Q6HPO [facility] Non-Formulary Medication (Diclofenac Sodium [Diclofenac Sodium]) 2 gm TP Q8H PRN PRN Reason: PAIN Oxycodone HCl (Roxicodone -) 5 mg PO Q6H PRN PRN Reason: PAIN LEVEL 6-10 Last Admin: 10/03/19 06:31 Dose: 5 mg Documented by: Pantoprazole Sodium (Protonix -) 40 mg PO DAILY [facility] Last Admin: 10/03/19 09:13 Dose: 40 mg Documented by: Polyethylene Glycol (Miralax (For Daily Use) -) 17 gm PO BID [facility] Last Admin: 10/03/19 09:13 Dose: Not Given Documented by: Simethicone (Mylicon -) 80 mg PO Q4H PRN PRN Reason: GAS Last Admin: 10/02/19 14:25 Dose: 80 mg Documented by: - Objective Vital Signs: Vital Signs Temperature 98.6 F 10/03/19 10:00 Pulse Rate 104 H 10/03/19 10:00 Respiratory Rate 18 10/03/19 10:00 Blood Pressure 127/64 10/03/19 10:00 O2 Sat by Pulse Oximetry (%) 100 10/03/19 09:00 Constitutional: Yes: Calm Eyes: Yes: Conjunctiva Clear HENT: Yes: Atraumatic Neck: Yes: Supple Cardiovascular: Yes: S1, S2 Respiratory: Yes: CTA Bilaterally Gastrointestinal: Yes: Soft Genitourinary: Yes: WNL Musculoskeletal: Yes: WNL Extremities: Yes: WNL Edema: Yes Edema: LLE: 2+, RLE: 2+ Neurological: Yes: Oriented Labs: CBC, BMP 10/03/19 06:35 10/03/19 06:35 INR, PTT INR 1.59 (0.83-1.09) H 10/01/19 08:18 Assessment/Plan Current Medications Generic Name Dose Route Start Last Admin Trade Name Freq PRN Reason Stop Dose Admin Apixaban 2.5 mg 10/01/19 22:00 10/03/19 09:12 Eliquis - PO 2.5 mg BID [facility] Administration Carvedilol 25 mg 10/01/19 10:00 10/03/19 09:13 Coreg - PO 25 mg BID [facility] Administration Docusate Sodium 300 mg 10/01/19 22:00 10/02/19 21:24 Colace - PO 300 mg HS [facility] Administration Furosemide 80 mg 10/03/19 06:00 10/03/19 13:16 Lasix Injection - IVPUSH 80 mg BIDLASIX [facility] Administration Hydralazine HCl 10 mg 09/29/19 14:00 10/03/19 13:16 Apresoline - PO 10 mg TID [facility] Administration Ertapenem 0.5 gm/ Sodium 50 mls @ 100 mls/hr 10/01/19 10:00 10/03/19 10:29 Chloride IVPB 100 mls/hr DAILY [facility] Administration Insulin Aspart 1 vial 10/01/19 07:00 10/03/19 10:42 Novolog Vial Sliding Scale - SQ 2 units ACHS [facility] Administration Protocol Lactobacillus Acidophilus 1 tab 09/29/19 14:30 10/03/19 09:13 Bacid - PO 1 tab DAILY [facility] Administration Letrozole 2.5 mg 10/01/19 10:00 10/03/19 09:13 Femara - PO 2.5 mg DAILY [facility] Administration Levothyroxine Sodium 100 mcg 10/01/19 07:00 10/03/19 06:31 Synthroid - PO 100 mcg ACBK [facility] Administration Loratadine 10 mg 10/01/19 10:00 10/03/19 09:13 Claritin - PO 10 mg DAILY [facility] Administration Nitroglycerin 1 inch 10/03/19 14:26 Nitro-Bid 2% Paste - TD Q6HPO [facility] Non-Formulary Medication 2 gm 09/30/19 23:14 Diclofenac Sodium [Diclofenac Sodium] TP Q8H PRN PAIN Oxycodone HCl 5 mg 10/01/19 01:38 10/03/19 06:31 Roxicodone - PO 5 mg Q6H PRN Administration PAIN LEVEL 6-10 Pantoprazole Sodium 40 mg 10/01/19 10:00 10/03/19 09:13 Protonix - PO 40 mg DAILY [facility] Administration Polyethylene Glycol 17 gm 10/01/19 10:00 10/03/19 09:13 Miralax (For Daily Use) - PO Not Given BID [facility] Simethicone 80 mg 09/30/19 23:14 10/02/19 14:25 Mylicon - PO 80 mg Q4H PRN Administration GAS Impression 1. proteinuria 2. hypothyroid 3. HTN 4. DM 5. fluid overload 6. breast cancer 7. anemia 8. CKD 9. CHF 10. hyponatremia 11. hypokalemia Plan - cont diuretics - monitor renal function - pants cutter rising - pt does not want HD therapy - monitor volume status - 2 gram sodium diet with fluid restriction - cardio input appreciated
--- NOTE | 2019-10-03 18:10 | PN ---
<Hakeem Browne - Last Filed: 10/03/19 18:35> Physical Exam: SUBJECTIVE: Patient seen and examined at bedside. No acute events overnight. Endorses back pain. OBJECTIVE: Vital Signs Period Temp Pulse Resp BP Sys/Hernandez Pulse Ox Last 24 Hr 97.9 F-98.6 F 91-104 18-19 121-140/62-72 100-100 GENERAL: NAD HEAD: Normal with no signs of trauma. ENT: MMM. LUNGS: Clear HEART: Irregularly irregular ABDOMEN: +Suprapubic tenderness. EXTREMITIES: No significant edema Laboratory Results - last 24 hr 10/02/19 10/02/19 10/02/19 07:10 16:35 21:21 WBC RBC Hgb Hct MCV MCH MCHC RDW Plt Count MPV Sodium Potassium Chloride Carbon Dioxide Anion Gap BUN Creatinine Est GFR (CKD-EPI)AfAm Est GFR (CKD-EPI)NonAf POC Glucometer 170 Random Glucose Calcium Phosphorus Magnesium Carcinoembryonic Ag 6.4 H CA 27-29 75 H Blood Type O NEGATIVE Antibody Screen Negative Crossmatch See Detail 10/03/19 10/03/19 10/03/19 06:23 06:35 06:35 WBC 17.5 H RBC 2.57 L Hgb 7.7 L Hct 23.9 L MCV 92.9 MCH 29.8 MCHC 32.0 RDW 19.3 H Plt Count 106 L MPV 8.6 Sodium 131 L Potassium 4.7 Chloride 96 L Carbon Dioxide 24 Anion Gap 11 BUN 110.2 H* Creatinine 3.3 H Est GFR (CKD-EPI)AfAm 13.66 Est GFR (CKD-EPI)NonAf 11.78 POC Glucometer 137 Random Glucose 131 H Calcium 8.1 L Phosphorus 5.4 H Magnesium 2.3 Carcinoembryonic Ag CA 27-29 Blood Type Antibody Screen Crossmatch 10/03/19 10/03/19 10:34 15:21 WBC RBC Hgb Hct MCV MCH MCHC RDW Plt Count MPV Sodium Potassium Chloride Carbon Dioxide Anion Gap BUN Creatinine Est GFR (CKD-EPI)AfAm Est GFR (CKD-EPI)NonAf POC Glucometer 161 141 Random Glucose Calcium Phosphorus Magnesium Carcinoembryonic Ag CA 27-29 Blood Type Antibody Screen Crossmatch Active Medications Generic Name Dose Route Start Last Admin Trade Name Freq PRN Reason Stop Dose Admin Apixaban 2.5 mg 06/26/20 22:00 10/03/19 09:12 Eliquis - PO 2.5 mg BID [facility] Administration Carvedilol 25 mg 10/01/19 10:00 10/03/19 09:13 Coreg - PO 25 mg BID [facility] Administration Docusate Sodium 300 mg 10/01/19 22:00 10/02/19 21:24 Colace - PO 300 mg HS [facility] Administration Furosemide 80 mg 10/03/19 06:00 10/03/19 13:16 Lasix Injection - IVPUSH 80 mg BIDLASIX [facility] Administration Hydralazine HCl 10 mg 09/29/19 14:00 10/03/19 13:16 Apresoline - PO 10 mg TID [facility] Administration Ertapenem 0.5 gm/ Sodium 50 mls @ 100 mls/hr 10/01/19 10:00 10/03/19 10:29 Chloride IVPB 100 mls/hr DAILY [facility] Administration Insulin Aspart 1 vial 10/01/19 07:00 10/03/19 17:17 Novolog Vial Sliding Scale - SQ Not Given ACHS [facility] Protocol Lactobacillus Acidophilus 1 tab 09/29/19 14:30 10/03/19 09:13 Bacid - PO 1 tab DAILY [facility] Administration Letrozole 2.5 mg 10/01/19 10:00 10/03/19 09:13 Femara - PO 2.5 mg DAILY [facility] Administration Levothyroxine Sodium 100 mcg 10/01/19 07:00 10/03/19 06:31 Synthroid - PO 100 mcg ACBK [facility] Administration Loratadine 10 mg 10/01/19 10:00 10/03/19 09:13 Claritin - PO 10 mg DAILY [facility] Administration Nitroglycerin 1 inch 10/03/19 14:26 10/03/19 17:28 Nitro-Bid 2% Paste - TD 1 inch Q6HPO [facility] Administration Non-Formulary Medication 2 gm 09/30/19 23:14 Diclofenac Sodium [Diclofenac Sodium] TP Q8H PRN PAIN Oxycodone HCl 5 mg 10/01/19 01:38 10/03/19 15:12 Roxicodone - PO 5 mg Q6H PRN Administration PAIN LEVEL 6-10 Pantoprazole Sodium 40 mg 10/01/19 10:00 10/03/19 09:13 Protonix - PO 40 mg DAILY [facility] Administration Polyethylene Glycol 17 gm 10/01/19 10:00 10/03/19 09:13 Miralax (For Daily Use) - PO Not Given BID [facility] Simethicone 80 mg 09/30/19 23:14 10/02/19 14:25 Mylicon - PO 80 mg Q4H PRN Administration GAS ASSESSMENT/PLAN: 89F from [facility] with pmhx of diastolic CHF, a-fib (on Eliquis), CKD, breast cancer s/p mastectomy, myelodysplasia, IDDM type 2, hypothyroidism, HLD, CVA, and GERD presents with b/l leg swelling and nausea for "weeks" and back pain for several days admitted for acute CHF exacerbation. #Acute on Chronic Diastolic CHF Exacerbation; Initial BNP 19k, b/l LE pitting edema, bibasilar crackles -Daily weights, I/Os, fluid restriction -Cardio consulted---> Patient received lasix to 80 iv bid with metolazone 2.5 x 1. Good response. However, patient will still likely require dialysis. Must decide with either HD or palliative care. Will consult Palliative care. -Cont O2 NC, currently on 2L intermittently -Cardio on board. Appreciate recs--> repeat echo to rule out progressive LV or RV systolic dysfuntion, in light of bun/creatinine behavior #New 4 cm L Hepatic Lobe lesion; in setting of hx of breast cancer and myel odysplasia -Onc consulted- Dr. Sullivan spoke to pt at length, and pt agrees to have breast cancer markers (CA 27,29) and colon cancer markers (CEA) (last colonoscopy was about 1 year ago and negative, so less likely from colon) instead of liver biopsy at this time; if findings are from breast ca, adjustments can be made to hormonal therapy; can consider bone scan as pt reports back pain (?mets vs pain from lying in bed) -on letrozole for breast ca tx -Pathology Requisition form filed out for Cytogenetics, FISH, and Cytometry . Pathology department called. Left voicemail. Will try again tomorrow. -resuming Eliquis #UTI #leukocytosis; UCx +Kleb Pneumonia ESBL -Per ID, Ertapenem 0.5 gm QD (09/26) #Hyponatremia; likely 2/2 fluid overload. Improving. -Fluid restriction -IV diuresis -Renal consulted #pruritis, generalized -has been present for weeks per pt -especially ears -Claritin daily -Eucerin #MAURICE on CKD; 3.0-->3.3. (baseline ~2.0-2.5 per EMR) -Hold amlodipine, hydralazine to allow for pressure drop and prevent hypoperfusion from IV Lasix -serial BMPs to monitor Cr (baseline near 2) -Renal consulted -renally dose all meds -monitor because of Lasix use #Anemia; likely multi-factorial in setting of CKD, myelodysplasia -Hb 7.7 s/p another unit PRBC (was 8.3 s/p 3U pRBCs last admission 08/24); Fe 31, TIBC 202, Fe sat 15, Ferr 986.2. -Lab values likely represent Anemia of Chronic Disease -Tranfuse PRN to maintain Hgb >7 -FOBT neg #HTN; Stable. Cont home med: Carvedilol 25 BID. #Generalized abdominal pain; 2/2 constipation vs. liver mass -Oxycodone 5mg Q6H PRN for pain, Diclofenac cream -Miralax 17 gm BID for constipation -QTc 484, try to avoid Zofran for nausea/vomiting #Back pain -no known fall -Oxycodone 5 PRN for pain -PT #Hypothyroidism; Cont home meds: Synthroid 100 #Prophylaxis DVT: Cont home Eliquis 2.5 BID FEN -Fluid restriction -monitor Na, Cl, and Cr -sodium/diabetic diet Dispo -med/surg - FULL CODE. - Visit type - Emergency Visit Emergency Visit: Yes ED Registration Date: 09/24/19 Care time: The patient presented to the Emergency Department on the above date and was hospitalized for further evaluation of their emergent condition. - New Patient This patient is new to me today: No - Critical Care Critical Care patient: No - Discharge Referral Referred to [facility] No ATTENDING PHYSICIAN STATEMENT I saw and evaluated the patient. I reviewed the resident's note and discussed the case with the resident. I agree with the resident's findings and plan as documented. SUBJECTIVE: OBJECTIVE: ASSESSMENT AND PLAN: <Tomasz Kirkpatrick - Last Filed: 10/03/19 20:23> Physical Exam: SUBJECTIVE: Patient seen and examined OBJECTIVE: Vital Signs Period Temp Pulse Resp BP Sys/Hernandez Pulse Ox Last 24 Hr 97.9 F-98.6 F 91-104 18-19 121-141/62-77 100-100 GENERAL: The patient is awake, alert, and fully oriented, in no acute distress. HEAD: Normal with no signs of trauma. EYES: PERRL, extraocular movements intact, sclera anicteric, conjunctiva clear. No ptosis. ENT: Ears normal, nares patent, oropharynx clear without exudates, moist mucous membranes. NECK: Trachea midline, full range of motion, supple. LUNGS: Breath sounds equal, clear to auscultation bilaterally, no wheezes, no crackles, no accessory muscle use. HEART: Regular rate and rhythm, S1, S2 without murmur, rub or gallop. ABDOMEN: Soft, nontender, nondistended, normoactive bowel sounds, no guarding, no rebound, no hepatosplenomegaly, no masses. EXTREMITIES: 2+ pulses, warm, well-perfused, no edema. NEUROLOGICAL: Cranial nerves II through XII grossly intact. Normal speech, gait not observed. PSYCH: Normal mood, normal affect. SKIN: Warm, dry, normal turgor, no rashes or lesions noted Laboratory Results - last 24 hr 10/02/19 10/02/19 10/02/19 07:10 16:35 21:21 WBC RBC Hgb Hct MCV MCH MCHC RDW Plt Count MPV Sodium Potassium Chloride Carbon Dioxide Anion Gap BUN Creatinine Est GFR (CKD-EPI)AfAm Est GFR (CKD-EPI)NonAf POC Glucometer 170 Random Glucose Calcium Phosphorus Magnesium Carcinoembryonic Ag 6.4 H CA 27-29 75 H Blood Type O NEGATIVE Antibody Screen Negative Crossmatch See Detail 10/03/19 10/03/19 10/03/19 06:23 06:35 06:35 WBC 17.5 H RBC 2.57 L Hgb 7.7 L Hct 23.9 L MCV 92.9 MCH 29.8 MCHC 32.0 RDW 19.3 H Plt Count 106 L MPV 8.6 Sodium 131 L Potassium 4.7 Chloride 96 L Carbon Dioxide 24 Anion Gap 11 BUN 110.2 H* Creatinine 3.3 H Est GFR (CKD-EPI)AfAm 13.66 Est GFR (CKD-EPI)NonAf 11.78 POC Glucometer 137 Random Glucose 131 H Calcium 8.1 L Phosphorus 5.4 H Magnesium 2.3 Carcinoembryonic Ag CA 27-29 Blood Type Antibody Screen Crossmatch 10/03/19 10/03/19 10:34 15:21 WBC RBC Hgb Hct MCV MCH MCHC RDW Plt Count MPV Sodium Potassium Chloride Carbon Dioxide Anion Gap BUN Creatinine Est GFR (CKD-EPI)AfAm Est GFR (CKD-EPI)NonAf POC Glucometer 161 141 Random Glucose Calcium Phosphorus Magnesium Carcinoembryonic Ag CA 27-29 Blood Type Antibody Screen Crossmatch Active Medications Generic Name Dose Route Start Last Admin Trade Name Moiseq PRN Reason Stop Dose Admin Apixaban 2.5 mg 10/01/19 22:00 10/03/19 09:12 Eliquis - PO 2.5 mg BID [facility] Administration Carvedilol 25 mg 10/01/19 10:00 10/03/19 09:13 Coreg - PO 25 mg BID [facility] Administration Docusate Sodium 300 mg 10/01/19 22:00 10/02/19 21:24 Colace - PO 300 mg HS [facility] Administration Furosemide 80 mg 10/03/19 06:00 10/03/19 13:16 Lasix Injection - IVPUSH 80 mg BIDLASIX [facility] Administration Hydralazine HCl 10 mg 09/29/19 14:00 10/03/19 13:16 Apresoline - PO 10 mg TID [facility] Administration Ertapenem 0.5 gm/ Sodium 50 mls @ 100 mls/hr 10/01/19 10:00 10/03/19 10:29 Chloride IVPB 100 mls/hr DAILY [facility] Administration Insulin Aspart 1 vial 10/01/19 07:00 10/03/19 17:17 Novolog Vial Sliding Scale - SQ Not Given ACHS [facility] Protocol Lactobacillus Acidophilus 1 tab 09/29/19 14:30 10/03/19 09:13 Bacid - PO 1 tab DAILY [facility] Administration Letrozole 2.5 mg 10/01/19 10:00 10/03/19 09:13 Femara - PO 2.5 mg DAILY [facility] Administration Levothyroxine Sodium 100 mcg 10/01/19 07:00 10/03/19 06:31 Synthroid - PO 100 mcg ACBK [facility] Administration Loratadine 10 mg 10/01/19 10:00 10/03/19 09:13 Claritin - PO 10 mg DAILY [facility] Administration Nitroglycerin 1 inch 10/03/19 14:26 10/03/19 17:28 Nitro-Bid 2% Paste - TD 1 inch Q6HPO [facility] Administration Non-Formulary Medication 2 gm 09/30/19 23:14 Diclofenac Sodium [Diclofenac Sodium] TP Q8H PRN PAIN Oxycodone HCl 5 mg 10/01/19 01:38 10/03/19 15:12 Roxicodone - PO 5 mg Q6H PRN Administration PAIN LEVEL 6-10 Pantoprazole Sodium 40 mg 10/01/19 10:00 10/03/19 09:13 Protonix - PO 40 mg DAILY [facility] Administration Polyethylene Glycol 17 gm 10/01/19 10:00 10/03/19 09:13 Miralax (For Daily Use) - PO Not Given BID [facility] Simethicone 80 mg 09/30/19 23:14 10/02/19 14:25 Mylicon - PO 80 mg Q4H PRN Administration GAS ASSESSMENT/PLAN: ATTENDING PHYSICIAN STATEMENT I saw and evaluated the patient. I reviewed the resident's note and discussed the case with the resident. I agree with the resident's findings and plan as documented. Attending attestation: Patient seen and examined at bedside during my rounds. States she doesnt feel well. She states her shortness of breath is improving. Her hyponatremia has slightly worsened and now sodium is 131 today from 134 yesterday. On exam she is alert and awake. She is in no acute distress. Her pulse is irregular on cardiac exam. On lung exam she has bilateral crackles at the bases. Abdomen is soft nontender nondistended. There is some mild suprapubic tenderness. For the patient's acute on chronic CHF exacerbation which is likely diastolic in the setting of having a recent echocardiogram with an ejection fraction of 50 to 55%. Continue Lasix. Follow-up cardiology. Cardiology consult noted and appreciated. Patient will have cytogenetics, FISH, and flow cytometry done given her 4 cm left hepatic lobe lesion in the setting of a history of breast cancer and myelodysplasia. Nephrology to discuss dialysis vs palliative care. patient's Creatinine/renal function will not improve despite effective diuresis. Continue Synthroid. Continue stool softeners for constipation. Continue carvedilol for hypertension. Rest As per above.
[2019-10-03] MEDS: DOCUSATE SODIUM 100 MG CAPSULE (FP) PO SCH (21:12)
[2019-10-04] MEDS ORDERED: METOLAZONE 2.5 MG TABLET (FP) PO ONE (05:30)
[2019-10-04] MEDS: NITROGLYCERIN 2% OINTMENT - 1GM PACKET TD SCH ×4 (05:35→17:18)
[2019-10-04] MEDS: INSULIN SLIDING SCALE (NOVOLOG) 1 VIAL SQ SCH ×4 (06:10→22:01)
[2019-10-04] MEDS: hydrALAZINE HCL 10 MG TABLET PO SCH ×3 (06:10→21:51)
[2019-10-04] MEDS: LEVOTHYROXINE NA 100 MCG TABLET (FP) PO SCH (06:10)
[2019-10-04] MEDS: FUROSEMIDE 40 MG/4 ML INJECTABLE VIAL IVPUSH SCH ×2 (06:10→14:04)
[2019-10-04 08:39] LABS: HEMATOCRIT 23.7 % (32.4-45.2); HEMOGLOBIN 7.6 GM/dL (10.7-15.3); MCH 30.3 pg (25.7-33.7); MCHC 32.2 g/dl (32.0-36.0); MEAN CELL VOLUME 94.2 fl (80-96); MEAN PLT VOLUME 8.9 fl (7.5-11.1); PLATELET COUNT 104 K/MM3 (134-434); RBC 2.51 M/mm3 (3.60-5.2); RDW 19.7 % (11.6-15.6); WHITE BLOOD COUNT 15.5 K/mm3 (4.0-10.0)
[2019-10-04 09:07] LABS: CALCIUM 8.3 mg/dL (8.5-10.1); MAGNESIUM 2.3 mg/dL (1.8-2.4); POTASSIUM 4.7 mmol/L (3.5-5.1)
[2019-10-04 09:09] LABS: CREATININE 3.5 mg/dL (0.55-1.3)
[2019-10-04 09:25] LABS: BLOOD UREA NITROGEN 116.6 mg/dL (7-18)
[2019-10-04] MEDS: POLYETHYLENE GLYCOL 3350 119 GM BTL PO SCH ×2 (10:22→21:54)
[2019-10-04] MEDS: LACTOBACILLUS ACIDOPHILUS 1 TABLET PO SCH (10:23)
[2019-10-04] MEDS: LETROZOLE 2.5 MG TABLET (FP) PO SCH (10:23)
[2019-10-04] MEDS: LORATADINE 10 MG TABLET PO SCH (10:23)
[2019-10-04] MEDS: CARVEDILOL 25 MG TABLET (FP) PO SCH ×2 (10:23→21:51)
[2019-10-04] MEDS: ERTAPENEM SODIUM 0.5 GM in SODIUM CHLORIDE 50 ML IVPB SCH (10:23)
[2019-10-04] MEDS: APIXABAN 2.5 MG TABLET PO SCH ×3 (10:24→21:50)
[2019-10-04] MEDS: PANTOPRAZOLE 40 MG TABLET PO SCH (10:24)
--- NOTE | 2019-10-04 11:25 | PN ---
Progress Note (short form) - Note Progress Note: Chief Complaint: sob History of Present Illness: no sob, le edema better, no cp, no palps Current Medications Generic Name Dose Route Start Last Admin Trade Name Moiseq PRN Reason Stop Dose Admin Carvedilol 25 mg 10/01/19 10:00 10/04/19 10:23 Coreg - PO 25 mg BID AMRIT Administration Docusate Sodium 300 mg 10/01/19 22:00 10/03/19 21:12 Colace - PO 300 mg HS AMRIT Administration Furosemide 80 mg 10/03/19 06:00 10/04/19 06:10 Lasix Injection - IVPUSH 80 mg BIDLASIX AMRIT Administration Hydralazine HCl 10 mg 09/29/19 14:00 10/04/19 06:10 Apresoline - PO 10 mg TID AMRIT Administration Ertapenem 0.5 gm/ Sodium 50 mls @ 100 mls/hr 10/01/19 10:00 10/04/19 10:23 Chloride IVPB 100 mls/hr DAILY AMRIT Administration Insulin Aspart 1 vial 10/01/19 07:00 10/04/19 06:10 Novolog Vial Sliding Scale - SQ Not Given ACHS [facility] Protocol Lactobacillus Acidophilus 1 tab 09/29/19 14:30 10/04/19 10:23 Bacid - PO 1 tab DAILY AMRIT Administration Letrozole 2.5 mg 10/01/19 10:00 10/04/19 10:23 Femara - PO 2.5 mg DAILY AMRIT Administration Levothyroxine Sodium 100 mcg 10/01/19 07:00 10/04/19 06:10 Synthroid - PO 100 mcg ACBK AMRIT Administration Loratadine 10 mg 10/01/19 10:00 10/04/19 10:23 Claritin - PO 10 mg DAILY AMRIT Administration Nitroglycerin 1 inch 10/03/19 14:26 10/04/19 05:35 Nitro-Bid 2% Paste - TD 1 inch Q6HPO AMRIT Administration Non-Formulary Medication 2 gm 09/30/19 23:14 Diclofenac Sodium [Diclofenac Sodium] TP Q8H PRN PAIN Oxycodone HCl 5 mg 10/01/19 01:38 10/03/19 23:55 Roxicodone - PO 5 mg Q6H PRN Administration PAIN LEVEL 6-10 Pantoprazole Sodium 40 mg 10/01/19 10:00 10/04/19 10:24 Protonix - PO 40 mg DAILY AMRIT Administration Polyethylene Glycol 17 gm 10/01/19 10:00 10/04/19 10:22 Miralax (For Daily Use) - PO 17 gm BID AMRIT Administration Simethicone 80 mg 09/30/19 23:14 10/02/19 14:25 Mylicon - PO 80 mg Q4H PRN Administration GAS Vital Signs Period Temp Pulse Resp BP Sys/Hernandez Pulse Ox Last 24 Hr 97.6 F-98.5 F 92-100 18-18 116-141/52-77 98 Constitutional: Yes: No Distress, Calm Eyes: No: Sclera Icterus HENT: No: Nasal Congestion Cardiovascular: Yes: Pulse Irregular, JVD, S1, S2, Other (PMI non diplaced). No: Gallop, Murmur Respiratory: Yes: Regular, CTA Bilaterally. No: Accessory Muscle Use Gastrointestinal: Yes: Normal Bowel Sounds, Soft. No: Tenderness Extremities: No: Cold, Cyanosis Edema: Yes (trace) Integumentary: No: Jaundice Neurological: Yes: Alert, Oriented (x3) Psychiatric: No: Agitated Labs: Laboratory Last Values WBC 15.5 K/mm3 (4.0-10.0) H 10/04/19 07:18 RBC 2.51 M/mm3 (3.60-5.2) L 10/04/19 07:18 Hgb 7.6 GM/dL (10.7-15.3) L 10/04/19 07:18 Hct 23.7 % (32.4-45.2) L 10/04/19 07:18 MCV 94.2 fl (80-96) 10/04/19 07:18 MCH 30.3 pg (25.7-33.7) 10/04/19 07:18 MCHC 32.2 g/dl (32.0-36.0) 10/04/19 07:18 RDW 19.7 % (11.6-15.6) H 10/04/19 07:18 Plt Count 104 K/MM3 (134-434) L 10/04/19 07:18 MPV 8.9 fl (7.5-11.1) 10/04/19 07:18 Absolute Neuts (auto) 12.2 K/mm3 (1.5-8.0) H 10/02/19 07:10 Total Counted 100 09/25/19 05:51 Neutrophils % 69.0 % (42.8-82.8) 10/02/19 07:10 Neutrophils % (Manual) 61.0 % (42.8-82.8) 10/02/19 07:10 Band Neutrophils % 3.0 % 10/02/19 07:10 Lymphocytes % 8.2 % (8-40) 10/02/19 07:10 Lymphocytes % (Manual) 12.0 % (8-40) 10/02/19 07:10 Monocytes % 11.7 % (3.8-10.2) H 10/02/19 07:10 Monocytes % (Manual) 7 % (3.8-10.2) 10/02/19 07:10 Eosinophils % 9.7 % (0-4.5) H 10/02/19 07:10 Eosinophils % (Manual) 13.0 % (0-4.5) H 10/02/19 07:10 Basophils % 1.4 % (0-2.0) 10/02/19 07:10 Basophils % (Manual) 0.0 % (0-2.0) 10/02/19 07:10 Myelocytes % (Man) 2 % (0-2) D 10/02/19 07:10 Promyelocytes % (Man) 0 % (0-2) 10/02/19 07:10 Blast Cells % (Manual) 0 % (0-0) 10/02/19 07:10 Nucleated RBC % 0 % (0-0) 10/02/19 07:10 Metamyelocytes 2 % (0-2) D 10/02/19 07:10 Hypochromia 1+ 10/02/19 07:10 Platelet Estimate Decreased 10/02/19 07:10 Platelet Comment No clumping noted 09/24/19 16:49 Polychromasia 1+ 10/02/19 07:10 Poikilocytosis 0 10/02/19 07:10 Basophilic Stippling 1+ 10/02/19 07:10 Anisocytosis 1+ 10/02/19 07:10 Microcytosis 1+ 10/02/19 07:10 Macrocytosis 0 10/02/19 07:10 Spherocytes 1+ 10/01/19 08:18 Target Cells 2+ 09/30/19 08:06 Tear Drop Cells 1+ 10/01/19 08:18 Ovalocytes 1+ 09/28/19 05:22 Stomatocytes 1+ 10/01/19 08:18 Fragmented RBCs 1+ 10/01/19 08:18 PT with INR 18.90 SEC (9.7-13.0) H 10/01/19 08:18 INR 1.59 (0.83-1.09) H 10/01/19 08:18 PTT (Actin FS) 30.4 SECONDS (25.2-36.5) 09/24/19 16:49 Sodium 134 mmol/L (136-145) L 10/04/19 07:18 Potassium 4.7 mmol/L (3.5-5.1) 10/04/19 07:18 Chloride 99 mmol/L (98-107) 10/04/19 07:18 Carbon Dioxide 21 mmol/L (21-32) 10/04/19 07:18 Anion Gap 14 MMOL/L (8-16) 10/04/19 07:18 BUN 116.6 mg/dL (7-18) H* 10/04/19 07:18 Creatinine 3.5 mg/dL (0.55-1.3) H 10/04/19 07:18 Est GFR (CKD-EPI)AfAm 12.72 10/04/19 07:18 Est GFR (CKD-EPI)NonAf 10.97 10/04/19 07:18 POC Glucometer 185 UNITS (80-120) 10/04/19 10:59 Random Glucose 144 mg/dL (74-106) H 10/04/19 07:18 Serum Osmolality 305 mosm/kg (278-305) 09/26/19 05:52 Lactic Acid 1.0 mmol/L (0.4-2.0) 09/24/19 19:10 Calcium 8.3 mg/dL (8.5-10.1) L 10/04/19 07:18 Phosphorus 6.0 mg/dL (2.5-4.9) H 10/04/19 07:18 Magnesium 2.3 mg/dL (1.8-2.4) 10/04/19 07:18 Iron 31 ug/dL (50-175) L 09/26/19 19:40 TIBC 202 ug/dL (250-450) L 09/26/19 19:40 Iron Saturation 15 % (17.5-39) L 09/26/19 19:40 Unsaturated IBC 171 ug/dL (200-275) L 09/26/19 19:40 Ferritin 986.2 ng/ml (8-388) H 09/26/19 19:40 Total Bilirubin 0.7 mg/dL (0.2-1) 09/29/19 05:52 AST 17 U/L (15-37) 09/29/19 05:52 ALT 15 U/L (13-61) 09/29/19 05:52 Alkaline Phosphatase 375 U/L (45-117) H 09/29/19 05:52 Troponin I < 0.02 ng/ml (0.00-0.05) 09/24/19 16:49 B-Natriuretic Peptide 43327.9 pg/ml (5-450) H 09/24/19 16:49 Total Protein 6.7 g/dl (6.4-8.2) 09/29/19 05:52 Albumin 2.3 g/dl (3.4-5.0) L 09/29/19 05:52 Carcinoembryonic Ag 6.4 ng/mL (0.0-4.7) H 10/02/19 07:10 CA 27-29 75 U/mL (0.0-38.6) H 10/02/19 07:10 Urine Color Yellow 09/24/19 20:45 Urine Appearance Turbid 09/24/19 20:45 Urine pH 5.5 (5.0-8.0) 09/24/19 20:45 Ur Specific [place] 1.015 (1.010-1.035) 09/24/19 20:45 Urine Protein 3+ (NEGATIVE) H 09/24/19 20:45 Urine Glucose (UA) Negative (NEGATIVE) 09/24/19 20:45 Urine Ketones Negative (NEGATIVE) 09/24/19 20:45 Urine Blood Negative (NEGATIVE) 09/24/19 20:45 Urine Nitrite Negative (NEGATIVE) 09/24/19 20:45 Urine Bilirubin Negative (NEGATIVE) 09/24/19 20:45 Urine Urobilinogen 0.2 mg/dL (0.2-1.0) 09/24/19 20:45 Ur Leukocyte Esterase 2+ (NEGATIVE) H 09/24/19 20:45 Urine WBC (Auto) 1325 /uL (0-25.8) 09/24/19 20:45 Urine RBC (Auto) 25 /uL (0-23.9) 09/24/19 20:45 Urine Casts (Auto) 1 /uL (0-3.1) 09/24/19 20:45 U Epithel Cells (Auto) 6 /uL (0-25.1) 09/24/19 20:45 Urine Bacteria (Auto) >10,000 /uL (0-1359) 09/24/19 20:45 Urine Osmolality 287 mosm/kg (300-900) L 09/25/19 12:15 Ur Random Sodium 38 MMOL/L (40-220) L 09/25/19 12:15 Stool Occult Blood Negative (NEGATIVE) 09/26/19 17:58 COVID-19 (TOYA) Not detected (Not Detected) 09/24/19 20:54 Anti-A Titer Cancelled 10/02/19 17:00 Blood Type Cancelled 10/02/19 17:00 Antibody Screen Cancelled 10/02/19 17:00 Crossmatch See Detail 10/02/19 16:35 Assessment/Plan echo 03/2019 nl LV function, mild MR, mild TR, PASP at least 49 mmHg IMP/REC: Acute diastolic heart failure exacerbation: - recent echo nl LV function - no signs acs - no reliable wts trend here - continue lasix, holding aldactone - getting lasix 80 iv bid with metolazone 2.5 in AM past two days. BUN/cr rising, Na stable. - per d/w dr georges it is likely her renal fxn will not improve with effective diuresis, and pt will need to decide btw HD and palliative care - cont nitrates for cardiorenal syndrome - repeat echo to rule out progressive LV or RV systolic dysfuntion, in light of bun/creatinine behavior HTN: - bp stable - cont current meds crow on CKD: - Baseline creat from last admission is 2-2.5, elevated now, likely cardiorenal - renal following PAF: -cont coreg for rate control -cont eliquis low dose (age, creatinine) liver mass: -heme/onc following anemia: -hgb 7s, stable -? sec to CKD -per primary team, heme-onc
--- NOTE | 2019-10-04 12:09 | ECHO ---
Name: BEREDAY, MACHO Exam:Adult Echocardiogram Study Date: 10/04/2019 11:16 AM Age: 89 yrs Reason For Study: STAT as per Dr. Gitig CHF MMode/2D Measurements & Calculations IVSd: 1.3 cm Ao root diam: 3.0 cm LVIDd: 3.7 cm LA dimension: 3.7 cm LVIDs: 2.6 cm LVPWd: 1.5 cm LVPWs: 1.6 cm EDV(Teich): 57.7 ml ESV(Teich): 23.5 ml LVOT diam: 1.9 cm LAV (MOD-bp): 141.0 ml TAPSE: 2.0 cm RV S Odell: 13.7 cm/sec Doppler Measurements & Calculations Ao V2 max: 153.2 cm/sec LV V1 max P.4 mmHg Ao max P.4 mmHg LV V1 max: 75.0 cm/sec CASSIA(V,D): 1.4 cm2 MR max odell: 470.6 cm/sec TR max odell: 322.5 cm/sec MR max P.6 mmHg TR max P.2 mmHg PA V2 max: 79.5 cm/sec Lat Peak E' Odell: 3.4 cm/sec PA max P.5 mmHg Procedure Study Quality: Fair. Left Ventricle The left ventricle is normal in size. There is mild concentric left ventricular hypertrophy. The left ventricular ejection fraction is normal. Ejection Fraction = 55-60%. Atrial fib excludes evaluation. Right Ventricle Borderline right ventricular enlargement. The right ventricular systolic function is borderline reduc ed. Atria The left atrium is severely dilated. The right atrium is severely dilated. Mitral Valve There is moderate mitral valve thickening. There is severe mitral annular calcification. There is tra ce mitral regurgitation. Tricuspid Valve The tricuspid valve is not well visualized, but is grossly normal. There is moderate to severe tricus pid regurgitation. Right ventricular systolic pressure is elevated at >60mmHg. There is severe pulmonary hypertension. Aortic Valve There is moderate aortic sclerosis.;. No hemodynamically significant valvular aortic stenosis. No aor tic regurgitation is present. Pulmonic Valve The pulmonic valve is not well visualized. Great Vessels The aortic root is normal size. Pericardium/Pleura Small pericardial effusion. Interpretation Summary LV: Normal size,mild LVH,normal suystolic function,EF 55-60%; (AFb excludes distolic evaluation) RV: Borderlone in size and function Atria: Severely dialated AV: Aclerotic MV: severe annular calcification,trace MR TV: Moderate to severe TR and severe pulmonary hypertension>60 mmHgPericardium: fat pad, possible sma ll effusion. Crys Concepcion 10/04/2019 12:08 PM
--- NOTE | 2019-10-04 12:45 | PN ---
Physical Exam: SUBJECTIVE: Patient seen and examined. She reports breathing is about the same. She has continued low back pain and has difficulty getting comfortable in the bed. She denies chest pain or abdominal pain. She is able to tolerate PO. OBJECTIVE: Vital Signs Period Temp Pulse Resp BP Sys/Hernandez Pulse Ox Last 24 Hr 97.6 F-98.5 F 88-100 18-20 116-141/52-77 97-98 GENERAL: The patient is awake, alert, and fully oriented, in no acute distress. HEAD: Normal with no signs of trauma. EYES: PERRL, extraocular movements intact, conjunctiva clear. ENT: Ears normal, nares patent, moist mucous membranes. NECK: Trachea midline. LUNGS: Clear to auscultation bilaterally, no wheezes, decreased bibasilar crackl es. HEART: Regular rate and rhythm, no murmur. ABDOMEN: Soft, generalized tenderness to palpation, mild distension, normoactive bowel sounds. BACK: Stage 2 sacral ulcer. EXTREMITIES: Warm, well-perfused, +1 pitting edema b/l LE below knee with +2 b/l pedal edema, dry, flaky skin left monique. NEUROLOGICAL: Cranial nerves II through XII grossly intact. Normal speech. PSYCH: Normal mood, normal affect. SKIN: Warm, dry, normal turgor. Ecchymosis b/l forearms Laboratory Results - last 24 hr 10/03/19 10/03/19 10/04/19 15:21 21:15 05:55 WBC RBC Hgb Hct MCV MCH MCHC RDW Plt Count MPV Sodium Potassium Chloride Carbon Dioxide Anion Gap BUN Creatinine Est GFR (CKD-EPI)AfAm Est GFR (CKD-EPI)NonAf POC Glucometer 141 144 146 Random Glucose Calcium Phosphorus Magnesium 10/04/19 10/04/19 10/04/19 07:18 07:18 10:59 WBC 15.5 H RBC 2.51 L Hgb 7.6 L Hct 23.7 L MCV 94.2 MCH 30.3 MCHC 32.2 RDW 19.7 H Plt Count 104 L MPV 8.9 Sodium 134 L Potassium 4.7 Chloride 99 Carbon Dioxide 21 Anion Gap 14 BUN 116.6 H* Creatinine 3.5 H Est GFR (CKD-EPI)AfAm 12.72 Est GFR (CKD-EPI)NonAf 10.97 POC Glucometer 185 Random Glucose 144 H Calcium 8.3 L Phosphorus 6.0 H Magnesium 2.3 Active Medications Generic Name Dose Route Start Last Admin Trade Name Freq PRN Reason Stop Dose Admin Carvedilol 25 mg 10/01/19 10:00 10/04/19 10:23 Coreg - PO 25 mg BID AMRIT Administration Docusate Sodium 300 mg 10/01/19 22:00 10/03/19 21:12 Colace - PO 300 mg HS AMRIT Administration Furosemide 80 mg 10/03/19 06:00 10/04/19 06:10 Lasix Injection - IVPUSH 80 mg BIDLASIX AMRIT Administration Hydralazine HCl 10 mg 09/29/19 14:00 10/04/19 06:10 Apresoline - PO 10 mg TID AMRIT Administration Ertapenem 0.5 gm/ Sodium 50 mls @ 100 mls/hr 10/01/19 10:00 10/04/19 10:23 Chloride IVPB 100 mls/hr DAILY AMRIT Administration Insulin Aspart 1 vial 10/01/19 07:00 10/04/19 06:10 Novolog Vial Sliding Scale - SQ Not Given ACHS [facility] Protocol Lactobacillus Acidophilus 1 tab 09/29/19 14:30 10/04/19 10:23 Bacid - PO 1 tab DAILY AMRIT Administration Letrozole 2.5 mg 10/01/19 10:00 10/04/19 10:23 Femara - PO 2.5 mg DAILY AMRIT Administration Levothyroxine Sodium 100 mcg 10/01/19 07:00 10/04/19 06:10 Synthroid - PO 100 mcg ACBK AMRIT Administration Loratadine 10 mg 10/01/19 10:00 10/04/19 10:23 Claritin - PO 10 mg DAILY AMRIT Administration Nitroglycerin 1 inch 10/03/19 14:26 10/04/19 05:35 Nitro-Bid 2% Paste - TD 1 inch Q6HPO AMRIT Administration Non-Formulary Medication 2 gm 09/30/19 23:14 Diclofenac Sodium [Diclofenac Sodium] TP Q8H PRN PAIN Oxycodone HCl 5 mg 10/01/19 01:38 10/03/19 23:55 Roxicodone - PO 5 mg Q6H PRN Administration PAIN LEVEL 6-10 Pantoprazole Sodium 40 mg 10/01/19 10:00 10/04/19 10:24 Protonix - PO 40 mg DAILY AMRIT Administration Polyethylene Glycol 17 gm 10/01/19 10:00 10/04/19 10:22 Miralax (For Daily Use) - PO 17 gm BID AMRIT Administration Simethicone 80 mg 09/30/19 23:14 10/02/19 14:25 Mylicon - PO 80 mg Q4H PRN Administration GAS ASSESSMENT/PLAN: 89F from [facility] with pmhx of diastolic CHF, a-fib (on Eliquis), CKD, breast cancer s/p mastectomy, myelodysplasia, IDDM type 2, hypothyroidism, HLD, CVA, and GERD presents with b/l leg swelling and nausea for "weeks" and back pain for several days admitted for acute CHF exacerbation. #Acute on Chronic Diastolic CHF Exacerbation; Initial BNP 19k, b/l LE pitting edema, bibasilar crackles -Daily weights, I/Os, fluid restriction -Cardio consulted; will continue Lasix 80 BID IV -Cont O2 NC, currently on 2L intermittently #New 4 cm L Hepatic Lobe lesion; in setting of hx of breast cancer and myelodysplasia -Onc consulted- Dr. Sullivan spoke to pt at length last week, and pt agrees to have breast cancer markers (CA 27,29) and colon cancer markers (CEA) (last colonosco py was about 1 year ago and negative, so less likely from colon) instead of liver biopsy at this time; if findings are from breast ca, adjustments can be made to hormonal therapy -bone scan -on letrozole for breast ca tx -continue Eliquis #complicated UTI #leukocytosis; UCx +Kleb Pneumonia ESBL -Per ID, Ertapenem 0.5 gm QD (09/26) day 8 -Leukocytosis improving -bladder scan PRN distention/pain for retention -abdominal distention noted with dullness to percussion suggestive of urine retention, bladder scan shows 425cc but pt does not know if she voided #stage 2 sacral ulcer -not infected -Santyl and bandage -explained to pt the importance of repositioning but she is too uncomfortable on her side to stay on it for significant periods of time #Hyponatremia; likely 2/2 fluid overload. Improving. -Fluid restriction -IV diuresis -Renal consulted #pruritis, generalized -has been present for weeks per pt -especially ears -Claritin daily -Eucerin #MAURICE on CKD; 3.0-->3.5 -Hold amlodipine, hydralazine to allow for pressure drop and prevent hypoperfusion from IV Lasix -serial BMPs to monitor Cr (baseline near 2) -Renal consulted -renally dose all meds -monitor because of Lasix use #Anemia; likely multi-factorial in setting of CKD, myelodysplasia, r/o GI bleed. s/p 1 dose of IV Venofer -Hb 7.3 (was 8.3 s/p 3U pRBCs last admission 08/24); Fe 31, TIBC 202, Fe sat 15, Ferr 986.2 -During last admission, was seen by heme with recommendation for outpt workup -Tranfuse PRN to maintain Hgb >7 -FOBT neg #HTN; Stable. Cont home med: Carvedilol 25 BID. Per cardio, will cont rest of home meds when BP stable #Generalized abdominal pain; 2/2 constipation vs. liver mass -Oxycodone 5mg Q6H PRN for pain, Diclofenac cream -Miralax 17 gm BID for constipation -QTc 484, try to avoid Zofran for nausea/vomiting -abdominal distention noted with dullness to percussion suggestive of urine retention, bladder scan shows 425cc but pt does not know if she voided #Back pain -no known fall -Oxycodone 5 PRN for pain -PT -bone scan #Hypothyroidism; Cont home meds: Synthroid 100 #Prophylaxis DVT: Cont home Eliquis 2.5 BID FEN -Fluid restriction -monitor Na, Cl, and Cr -sodium/diabetic diet Dispo -med/surg -Pt has MOLST on file, however specified that she wants FULL CODE. Visit type - Emergency Visit Emergency Visit: Yes ED Registration Date: 09/24/19 Care time: The patient presented to the Emergency Department on the above date and was hospitalized for further evaluation of their emergent condition. - New Patient This patient is new to me today: No - Critical Care Critical Care patient: No ATTENDING PHYSICIAN STATEMENT I saw and evaluated the patient. I reviewed the resident's note and discussed the case with the resident. I agree with the resident's findings and plan as documented. SUBJECTIVE: OBJECTIVE: ASSESSMENT AND PLAN:
--- NOTE | 2019-10-04 13:40 | PN ---
Teaching Attending Note Name of Resident: Rebekah Sharpe ATTENDING PHYSICIAN STATEMENT I saw and evaluated the patient. I reviewed the resident's note and discussed the case with the resident. I agree with the resident's findings and plan as documented. SUBJECTIVE: no fever or chills. cont to feel SOB on and off. No CP. no CABRALES . no diarrhea. cont to have chronic back pain. Objectives : NAD , awake, alert CV: RRR Lungs:minimal bibasilar crackles Abd: soft,ND, tympanic . bladder palpated Ext: 1 + pitting edema on legs improved frm befoer skin : 1 stage 2 decub ulcer on R buttock with no surrounding erythema , clean base , no discharge ASSESSMENT AND PLAN: 89 y/o lady with h/o diastolic CHF, a-fib (on Eliquis), CKD, breast cancer s/p mastectomy, myelodysplasia, IDDM type 2, hypothyroidism, HLD, CVA, and GERD who presented with SOB adn LE edema and was diagnosed with D CHF exacerbation Acute on chronic diastolic heart failure ESBL producing Klebsiealla complicated UTI/pyelonephritis MAURICE on CKD Liver mass retroperitoneal LAP b/l adrenal nodules h/o MDS chronic normocytic anemia leukocytosis prolonged QTC hyponatremia high AG metabolic acidosis :resolved prolonged QTC h/o A fib Stage 2 R gluteal decubitus ulcer Plan: - volume status improved with increasing lasix and ading metolazone - cont lasix 80 iV BID and received metolazone today - cont ertapenem day 8 - monitor renal function . patient and daughter refused HD - d/w dr. Sequeira - Liver Bx deferred. - follow tumor markers - Bone scan - f/u onc - cont eliqis - connt coreg - cont bowel regimen - frequent turning. patient can't turn due to back pain. she declined after repositioned. will order air mattress
--- NOTE | 2019-10-04 16:32 | PN ---
Progress Note, Physician History of Present Illness: Pt seen and examined at bedside. She is awake and alert. She feels that her breathing is improving. - Current Medication List Current Medications: Active Medications Apixaban (Eliquis -) 2.5 mg PO BID [facility] Carvedilol (Coreg -) 25 mg PO BID [facility] Last Admin: 10/04/19 10:23 Dose: 25 mg Documented by: Docusate Sodium (Colace -) 300 mg PO HS [facility] Last Admin: 10/03/19 21:12 Dose: 300 mg Documented by: Furosemide (Lasix Injection -) 80 mg IVPUSH BIDLASIX [facility] Last Admin: 10/04/19 14:04 Dose: 80 mg Documented by: Hydralazine HCl (Apresoline -) 10 mg PO TID [facility] Last Admin: 10/04/19 14:04 Dose: 10 mg Documented by: Ertapenem 0.5 gm/ Sodium (Chloride) 50 mls @ 100 mls/hr IVPB DAILY [facility] Last Admin: 10/04/19 10:23 Dose: 100 mls/hr Documented by: Insulin Aspart (Novolog Vial Sliding Scale -) 1 vial SQ ACHS [facility]; Protocol Last Admin: 10/04/19 11:50 Dose: 2 units Documented by: Lactobacillus Acidophilus (Bacid -) 1 tab PO DAILY [facility] Last Admin: 10/04/19 10:23 Dose: 1 tab Documented by: Letrozole (Femara -) 2.5 mg PO DAILY [facility] Last Admin: 10/04/19 10:23 Dose: 2.5 mg Documented by: Levothyroxine Sodium (Synthroid -) 100 mcg PO ACBK [facility] Last Admin: 10/04/19 06:10 Dose: 100 mcg Documented by: Loratadine (Claritin -) 10 mg PO DAILY [facility] Last Admin: 10/04/19 10:23 Dose: 10 mg Documented by: Nitroglycerin (Nitro-Bid 2% Paste -) 1 inch TD Q6HPO [facility] Last Admin: 10/04/19 12:00 Dose: 1 inch Documented by: Non-Formulary Medication (Diclofenac Sodium [Diclofenac Sodium]) 2 gm TP Q8H PRN PRN Reason: PAIN Oxycodone HCl (Roxicodone -) 5 mg PO Q6H PRN PRN Reason: PAIN LEVEL 6-10 Last Admin: 10/03/19 23:55 Dose: 5 mg Documented by: Pantoprazole Sodium (Protonix -) 40 mg PO DAILY [facility] Last Admin: 10/04/19 10:24 Dose: 40 mg Documented by: Polyethylene Glycol (Miralax (For Daily Use) -) 17 gm PO BID [facility] Last Admin: 10/04/19 10:22 Dose: 17 gm Documented by: Simethicone (Mylicon -) 80 mg PO Q4H PRN PRN Reason: GAS Last Admin: 10/02/19 14:25 Dose: 80 mg Documented by: - Objective Vital Signs: Vital Signs Temperature 97.0 F L 10/04/19 14:20 Pulse Rate 98 H 10/04/19 14:20 Respiratory Rate 16 10/04/19 14:20 Blood Pressure 128/52 L 10/04/19 14:20 O2 Sat by Pulse Oximetry (%) 97 10/04/19 09:00 Constitutional: Yes: Calm Eyes: Yes: Conjunctiva Clear HENT: Yes: Atraumatic Neck: Yes: Supple Cardiovascular: Yes: S1, S2 Respiratory: Yes: On Nasal O2 Gastrointestinal: Yes: Soft Genitourinary: Yes: Incontinence Musculoskeletal: Yes: Muscle Weakness Edema: Yes Edema: LLE: 1+, RLE: 1+ Neurological: Yes: Oriented Psychiatric: Yes: Oriented Labs: CBC, BMP 10/04/19 07:18 10/04/19 07:18 INR, PTT INR 1.59 (0.83-1.09) H 10/01/19 08:18 Assessment/Plan Current Medications Generic Name Dose Route Start Last Admin Trade Name Freq PRN Reason Stop Dose Admin Apixaban 2.5 mg 10/04/19 22:00 Eliquis - PO BID [facility] Carvedilol 25 mg 10/01/19 10:00 10/04/19 10:23 Coreg - PO 25 mg BID [facility] Administration Docusate Sodium 300 mg 10/01/19 22:00 10/03/19 21:12 Colace - PO 300 mg HS [facility] Administration Furosemide 80 mg 10/03/19 06:00 10/04/19 14:04 Lasix Injection - IVPUSH 80 mg BIDLASIX [facility] Administration Hydralazine HCl 10 mg 09/29/19 14:00 10/04/19 14:04 Apresoline - PO 10 mg TID [facility] Administration Ertapenem 0.5 gm/ Sodium 50 mls @ 100 mls/hr 10/01/19 10:00 10/04/19 10:23 Chloride IVPB 100 mls/hr DAILY [facility] Administration Insulin Aspart 1 vial 10/01/19 07:00 10/04/19 11:50 Novolog Vial Sliding Scale - SQ 2 units ACHS [facility] Administration Protocol Lactobacillus Acidophilus 1 tab 09/29/19 14:30 10/04/19 10:23 Bacid - PO 1 tab DAILY [facility] Administration Letrozole 2.5 mg 10/01/19 10:00 10/04/19 10:23 Femara - PO 2.5 mg DAILY [facility] Administration Levothyroxine Sodium 100 mcg 10/01/19 07:00 10/04/19 06:10 Synthroid - PO 100 mcg ACBK [facility] Administration Loratadine 10 mg 10/01/19 10:00 10/04/19 10:23 Claritin - PO 10 mg DAILY [facility] Administration Nitroglycerin 1 inch 10/03/19 14:26 10/04/19 12:00 Nitro-Bid 2% Paste - TD 1 inch Q6HPO [facility] Administration Non-Formulary Medication 2 gm 09/30/19 23:14 Diclofenac Sodium [Diclofenac Sodium] TP Q8H PRN PAIN Oxycodone HCl 5 mg 10/01/19 01:38 10/03/19 23:55 Roxicodone - PO 5 mg Q6H PRN Administration PAIN LEVEL 6-10 Pantoprazole Sodium 40 mg 10/01/19 10:00 10/04/19 10:24 Protonix - PO 40 mg DAILY [facility] Administration Polyethylene Glycol 17 gm 10/01/19 10:00 10/04/19 10:22 Miralax (For Daily Use) - PO 17 gm BID [facility] Administration Simethicone 80 mg 09/30/19 23:14 10/02/19 14:25 Mylicon - PO 80 mg Q4H PRN Administration GAS Impression 1. proteinuria 2. hypothyroid 3. HTN 4. DM 5. fluid overload 6. breast cancer 7. anemia 8. CKD 9. CHF 10. hyponatremia 11. hypokalemia Plan - cont lasix - follow bladder scan post void - discussed plan with pt and family, they do not want HD - had a lengthy conversation about goals - cont to check weights - discussed with medical team - monitor volume status - 2 gram sodium diet with fluid restriction - cardio input appreciated
--- NOTE | 2019-10-04 16:42 | PN ---
Progress Note, Physician History of Present Illness: AWAKE IN BED LETHARGIC NO C/O FEVER/CHILLS REPEAT URINE C/S ENTEROCOCCUS SP - Current Medication List Current Medications: Active Medications Apixaban (Eliquis -) 2.5 mg PO BID [facility] Carvedilol (Coreg -) 25 mg PO BID [facility] Last Admin: 10/04/19 10:23 Dose: 25 mg Documented by: Docusate Sodium (Colace -) 300 mg PO HS [facility] Last Admin: 10/03/19 21:12 Dose: 300 mg Documented by: Furosemide (Lasix Injection -) 80 mg IVPUSH BIDLASIX [facility] Last Admin: 10/04/19 14:04 Dose: 80 mg Documented by: Hydralazine HCl (Apresoline -) 10 mg PO TID [facility] Last Admin: 10/04/19 14:04 Dose: 10 mg Documented by: Ertapenem 0.5 gm/ Sodium (Chloride) 50 mls @ 100 mls/hr IVPB DAILY [facility] Last Admin: 10/04/19 10:23 Dose: 100 mls/hr Documented by: Insulin Aspart (Novolog Vial Sliding Scale -) 1 vial SQ [facility]; Protocol Last Admin: 10/04/19 11:50 Dose: 2 units Documented by: Lactobacillus Acidophilus (Bacid -) 1 tab PO DAILY [facility] Last Admin: 10/04/19 10:23 Dose: 1 tab Documented by: Letrozole (Femara -) 2.5 mg PO DAILY [facility] Last Admin: 10/04/19 10:23 Dose: 2.5 mg Documented by: Levothyroxine Sodium (Synthroid -) 100 mcg PO ACBK [facility] Last Admin: 10/04/19 06:10 Dose: 100 mcg Documented by: Loratadine (Claritin -) 10 mg PO DAILY [facility] Last Admin: 10/04/19 10:23 Dose: 10 mg Documented by: Nitroglycerin (Nitro-Bid 2% Paste -) 1 inch TD Q6HPO [facility] Last Admin: 10/04/19 12:00 Dose: 1 inch Documented by: Non-Formulary Medication (Diclofenac Sodium [Diclofenac Sodium]) 2 gm TP Q8H PRN PRN Reason: PAIN Oxycodone HCl (Roxicodone -) 5 mg PO Q6H PRN PRN Reason: PAIN LEVEL 6-10 Last Admin: 10/03/19 23:55 Dose: 5 mg Documented by: Pantoprazole Sodium (Protonix -) 40 mg PO DAILY [facility] Last Admin: 10/04/19 10:24 Dose: 40 mg Documented by: Polyethylene Glycol (Miralax (For Daily Use) -) 17 gm PO BID [facility] Last Admin: 10/04/19 10:22 Dose: 17 gm Documented by: Simethicone (Mylicon -) 80 mg PO Q4H PRN PRN Reason: GAS Last Admin: 10/02/19 14:25 Dose: 80 mg Documented by: - Objective Vital Signs: Vital Signs Temperature 97.0 F L 10/04/19 14:20 Pulse Rate 98 H 10/04/19 14:20 Respiratory Rate 16 10/04/19 14:20 Blood Pressure 128/52 L 10/04/19 14:20 O2 Sat by Pulse Oximetry (%) 97 10/04/19 09:00 Constitutional: Yes: No Distress Cardiovascular: Yes: Regular Rate and Rhythm, S1, S2 Respiratory: Yes: Diminished Gastrointestinal: Yes: Normal Bowel Sounds, Soft. No: Tenderness Edema: Yes Labs: CBC, BMP 10/04/19 07:18 10/04/19 07:18 INR, PTT INR 1.59 (0.83-1.09) H 10/01/19 08:18 Assessment/Plan CHF UTI ESBL COMPLETEING COURSE OF ERTAPENEM REPEAT URINE C/S ENTEROCOCCUS ? SIGNIFICANCE LEUKOCYTOSIS AZOTEMIA CONTINUE ERTAPENEM 500MG QD CONTACT PRECAUTIONS
[2019-10-04] MEDS ORDERED: INSULIN (NOVOLOG) ASPART 100 UNITS/ML 10ML VIAL ONE (17:15)
--- NOTE | 2019-10-04 17:57 | CONSULT ---
Consult Consult Specialty:: Palliative care Referred by:: Clint Crane Reason for Consultation:: Goals of care - History of Present Illness Chief Complaint: SOB, MAURICE on CKD History of Present Illness: 89 y/o female with PMHx of diastolic CHF, a-fib (on Eliquis), CKD, breast cancer s/p left breast lumpectomy and radiation in 2013, myelodysplasia, IDDM type 2, hypothyroidism, HLD, CVA, and GERD who was admitted to [facility] 09/23 with constipation, SOB, b/l leg swelling and nausea for "weeks" and back pain for "several days." A CT of the abdomen revealed a 4 cm L hepatic lobe hypodense lesion suspicious for metastatic disease as well as a 2.[address] enlargement and enlarged retroperitoneal nodes. Very elevated BNP and edematous- s/p aggressive diuresis with improvement in edema but worsening renal function. 2 hepatic masses seen on USG liver- 5.7 cm and 4 cm respectively. She has been seen by [facility]- onc- cancer markers have been sent- presumed metastatic breast cancer- depending on test results there might be some miles fication in breast cancer hormonal treatment but pt is not a candidate for aggressive chemo/ sx/ radiation. She was also diagnosed with MDS/ AML or MPN as per haem- onc. Lumbar CT showed multilevel DJD, no neoplastic disease. also Acute on chronic diastolic heart failure ESBL producing Klebsiealla complicated UTI/pyelonephritis - on ertapenem MAURICE on CKD Liver masses retroperitoneal LAP b/l adrenal nodules h/o MDS chronic normocytic anemia leukocytosis prolonged QTC hyponatremia high AG metabolic acidosis :resolved prolonged QTC h/o A fib Stage 2 R gluteal decubitus ulcer. hx of CVA NIDDM hypothyroid HD has been recommended but patient has refused it and palliative care consult called to discuss goals of care. 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 THREAD LASTER: Yes: CVA, Peripheral Neuropathy, Other (guillain barre syndrome, hx bacterial meningitis 1953) Cardio/Vascular: Yes: CHF, HTN Gastrointestinal: Yes: Constipation, GERD Renal/: Yes: Renal Failure Heme/Onc: Yes: Anemia, Cancer Psych: Yes: Psychosis Musculoskeletal: Yes: Chronic low back pain, Other Endocrine: Yes: Diabetes Mellitus - Alcohol/Substance Use Hx Alcohol Use: No - Smoking History Smoking history: Never smoked Have you smoked in the past 12 months: No Aproximately how many cigarettes per day: 0 - Social History Usual Living Arrangement: Jail History of Recent Travel: No Home Medications - Allergies Allergies/Adverse Reactions: Allergies Allergy/AdvReac Type Severity Reaction Status Date / Time NSAIDS (Non-Steroidal Allergy Severe Difficulty Verified 04/08/19 22:55 Anti-Inflamma Breathing ibuprofen Allergy Intermediate Rash Verified 04/08/19 22:55 meloxicam [From Mobic] Allergy Intermediate Rash Verified 04/08/19 22:55 rosiglitazone maleate Allergy Verified 04/08/19 22:55 [From Avandia] albuterol AdvReac Intermediate Elevated Verified 04/08/19 22:55 Blood Pressure epinephrine AdvReac Intermediate Elevated Verified 04/08/19 22:55 Blood Pressure oxycodone HCl [From Percodan] AdvReac Intermediate Elevated Verified 04/08/19 22:55 Blood Pressure oxycodone terephthalate AdvReac Intermediate Elevated Verified 04/08/19 22:55 [From Percodan] Blood Pressure flu shot AdvReac Severe GILLAIN Uncoded 04/08/19 22:55 BARRE SYNDROME - Home Medications Home Medications: Ambulatory Orders Calcium Carbonate/Vitamin D3 [Calcium 500-Vit D3 400 Tablet] 1 each PO BID 06/23/18 Carvedilol [Coreg -] 25 mg PO BID 06/23/18 Polyethylene Glycol 3350 [Miralax 119 gm Btl -] 17 gm PO DAILY PRN bottle 04/27/19 Amlodipine Besylate [Norvasc -] 5 mg PO DAILY 08/12/19 Apixaban [Eliquis] 2.5 mg PO BID 08/12/19 Furosemide [Lasix -] 80 mg PO BID 08/12/19 Isosorbide Mononitrate [Imdur -] 60 mg PO DAILY 08/12/19 Sitagliptin Phosphate [Januvia] 25 mg PO DAILY 08/12/19 hydrALAZINE HCL [Apresoline -] 10 mg PO TID 08/12/19 Insulin Glargine,Hum.rec.anlog [Lantus] 25 unit SQ DAILY 09/24/19 Insulin Lispro [Humalog] 100 unit SQ PRN 09/24/19 Letrozole [Femara] 2.5 mg PO DAILY 09/24/19 Omeprazole 20 mg PO DAILY 09/24/19 Pantoprazole Sodium [Protonix] 40 mg PO DAILY 09/24/19 Simethicone 125 mg PO Q4H PRN 09/24/19 Multivitamin [One-Daily Multi-Vitamin] 1 each PO DAILY 09/25/19 Ondansetron [Zofran -] 4 mg PO Q4H PRN 09/25/19 Oxycodone HCl/Acetaminophen [Percocet 5-325 mg Tablet] 1 tab PO Q12H PRN 09/25/19 Diclofenac Sodium 2 gm TP DAILY 09/26/19 Family Medical History Family History: Unable to Obtain Review of Systems - Review of Systems Constitutional: reports: Lethargy, Loss of Appetite, Malaise Cardiovascular: reports: Edema, Shortness of Breath Respiratory: reports: SOB Gastrointestinal: reports: Constipation, Nausea Genitourinary: reports: Frequency Musculoskeletal: reports: Back Pain Neurological: reports: Weakness Physical Exam Vital Signs: Vital Signs Temperature 97.0 F L 10/04/19 14:20 Pulse Rate 98 H 10/04/19 14:20 Respiratory Rate 16 10/04/19 14:20 Blood Pressure 128/52 L 10/04/19 14:20 O2 Sat by Pulse Oximetry (%) 97 10/04/19 09:00 Constitutional: Yes: No Distress, Obese Eyes: Yes: WNL, Conjunctiva Clear HENT: Yes: Atraumatic, Normocephalic Neck: Yes: WNL, Supple Cardiovascular: Yes: Regular Rate and Rhythm Respiratory: Yes: Regular Gastrointestinal: Yes: Soft Neurological: Yes: Alert, Oriented Psychiatric: Yes: Alert, Oriented Labs: CBC, BMP 10/04/19 07:18 10/04/19 07:18 Imaging - Results Chest X-ray: Report Reviewed Cat Scan: Report Reviewed Ultrasound: Report Reviewed Problem List - Problems (1) Acute diastolic (congestive) heart failure Code(s): I50.31 - ACUTE DIASTOLIC (CONGESTIVE) HEART FAILURE (2) Acute kidney injury superimposed on CKD Code(s): N17.9 - ACUTE KIDNEY FAILURE, UNSPECIFIED; N18.9 - CHRONIC KIDNEY D ISEASE, UNSPECIFIED (3) Breast cancer Code(s): C50.919 - MALIGNANT NEOPLASM OF UNSP SITE OF UNSPECIFIED FEMALE BREAST (4) History of CVA with residual deficit Code(s): I69.30 - UNSPECIFIED SEQUELAE OF CEREBRAL INFARCTION (5) Renal disease Code(s): N28.9 - DISORDER OF KIDNEY AND URETER, UNSPECIFIED Assessment/Plan I had an extensive discussion with the patient regarding her symptoms and goals of care. Ms Singh is an elderly obese female who is weak, deconditioned, seen lying in bed. She is so weak that she cannot change position in bed. She is also suffering from a lack of appetite because of nausea/ abdominal cramps ( ? opiods/ ? uremia). She is now off o2 and did not appear in any acute distress but did complain of back pain and her inability to change her position as her major irritants. We discussed her poor renal function, heart failure precipitating her edema and SOB and metastatic cancer - for all of these conditions there is no cure. Symptoms can be managed with medications only to a limited extent. HD has been suggested and patient has refused. We discussed comfort care and managing her symptoms- the goal being to make her more comfortable- Her biggest concern appears to be her worsening weakness and dependency on aides for ADLs, her chr back pain. I will speak to the patient again and will reach out to her daughter also. Hospice would be appropriate for her if patient and family in agreement. I would recommend dilauded 0.5 mg iv q6h prn for pain comfort foods bowel regimen. WIll follow. Nehemiahyou for allowing me to participate in the care of this patient. Please call with questions. Angel Macdonald MD [phone] Total time for chart review, examination, coordination of care- 70 minutes.
[2019-10-04] MEDS: DOCUSATE SODIUM 100 MG CAPSULE (FP) PO SCH (21:50)
[2019-10-05] MEDS: NITROGLYCERIN 2% OINTMENT - 1GM PACKET TD SCH ×4 (00:30→17:07)
[2019-10-05] MEDS: oxyCODONE HCL 5 MG TABLET PO PRN (04:16)
[2019-10-05] MEDS: hydrALAZINE HCL 10 MG TABLET PO SCH ×3 (06:03→21:52)
[2019-10-05] MEDS: LEVOTHYROXINE NA 100 MCG TABLET (FP) PO SCH (06:03)
[2019-10-05] MEDS: FUROSEMIDE 40 MG/4 ML INJECTABLE VIAL IVPUSH SCH ×2 (06:03→14:52)
[2019-10-05] MEDS: INSULIN SLIDING SCALE (NOVOLOG) 1 VIAL SQ SCH ×4 (06:34→21:52)
[2019-10-05 08:17] LABS: EOS % 10.4 % (0-4.5); HEMOGLOBIN 7.4 GM/dL (10.7-15.3); LYMPH % 8.9 % (8-40); MCH 30.1 pg (25.7-33.7); MCHC 32.1 g/dl (32.0-36.0); MEAN CELL VOLUME 93.7 fl (80-96); MEAN PLT VOLUME 9.1 fl (7.5-11.1); MONO % 10.2 % (3.8-10.2); NEUT % 69.5 % (42.8-82.8); PLATELET COUNT 99 K/MM3 (134-434); RBC 2.46 M/mm3 (3.60-5.2); RDW 20.3 % (11.6-15.6); WHITE BLOOD COUNT 15.3 K/mm3 (4.0-10.0)
[2019-10-05 08:29] LABS: CALCIUM 7.9 mg/dL (8.5-10.1); CREATININE 3.5 mg/dL (0.55-1.3); POTASSIUM 4.4 mmol/L (3.5-5.1)
[2019-10-05 08:35] LABS: BLOOD UREA NITROGEN 117.7 mg/dL (7-18)
[2019-10-05 09:35] LABS: ANISOCYTOSIS 2+; MACROCYTOSIS 0; PLATELET ESTIMATE DECREASED
[2019-10-05] MEDS: ERTAPENEM SODIUM 0.5 GM in SODIUM CHLORIDE 50 ML IVPB SCH (10:27)
[2019-10-05] MEDS: POLYETHYLENE GLYCOL 3350 119 GM BTL PO SCH ×2 (10:27→21:52)
[2019-10-05] MEDS: LORATADINE 10 MG TABLET PO SCH (10:30)
[2019-10-05] MEDS: LETROZOLE 2.5 MG TABLET (FP) PO SCH (10:30)
[2019-10-05] MEDS: PANTOPRAZOLE 40 MG TABLET PO SCH (10:30)
[2019-10-05] MEDS: CARVEDILOL 25 MG TABLET (FP) PO SCH ×2 (10:30→21:52)
[2019-10-05] MEDS: APIXABAN 2.5 MG TABLET PO SCH ×2 (10:30→21:52)
[2019-10-05] MEDS: LACTOBACILLUS ACIDOPHILUS 1 TABLET PO SCH (10:30)
--- NOTE | 2019-10-05 11:17 | PN ---
Physical Exam: SUBJECTIVE: Patient seen and examined at bedside. No acute events overnight. Pt still complains of generalized back pain. Tolerating PO intake. OBJECTIVE: Vital Signs Period Temp Pulse Resp BP Sys/Hernandez Pulse Ox Last 24 Hr 97.0 F-98.7 F 91-102 16-20 97-128/48-62 97 GENERAL: Elderly female, mildly uncomfortable. NAD. AAOx3. HEAD: Normal with no signs of trauma. EYES: PERRL, extraocular movements intact, conjunctiva clear. ENT: Ears normal, nares patent, moist mucous membranes. NECK: Trachea midline. LUNGS: bibasilar crackles HEART: Regular rate and rhythm, no murmur. ABDOMEN: Obese, soft, generalized tenderness to palpation, mild distension, normoactive bowel sounds. BACK: Stage 2 sacral ulcer. EXTREMITIES: Warm, well-perfused, +1 pitting edema b/l LE below knee with +2 b/l pedal edema, dry, flaky skin left monique. NEUROLOGICAL: Cranial nerves II through XII grossly intact. Normal speech. PSYCH: Normal mood, normal affect. SKIN: Warm, dry, normal turgor. Ecchymosis b/l forearms Laboratory Results - last 24 hr 10/04/19 10/04/19 10/05/19 17:06 21:49 05:45 WBC RBC Hgb Hct MCV MCH MCHC RDW Plt Count MPV Absolute Neuts (auto) Neutrophils % Neutrophils % (Manual) Band Neutrophils % Lymphocytes % Lymphocytes % (Manual) Monocytes % Monocytes % (Manual) Eosinophils % Eosinophils % (Manual) Basophils % Basophils % (Manual) Myelocytes % (Man) Promyelocytes % (Man) Blast Cells % (Manual) Nucleated RBC % Metamyelocytes Hypochromia Platelet Estimate Polychromasia Poikilocytosis Anisocytosis Microcytosis Macrocytosis Sodium Potassium Chloride Carbon Dioxide Anion Gap BUN Creatinine Est GFR (CKD-EPI)AfAm Est GFR (CKD-EPI)NonAf POC Glucometer 178 150 160 Random Glucose Calcium 10/05/19 10/05/19 06:15 06:15 WBC 15.3 H RBC 2.46 L Hgb 7.4 L Hct 23.0 L MCV 93.7 MCH 30.1 MCHC 32.1 RDW 20.3 H Plt Count 99 L MPV 9.1 Absolute Neuts (auto) 10.7 H Neutrophils % 69.5 Neutrophils % (Manual) 62.7 Band Neutrophils % 1.0 Lymphocytes % 8.9 Lymphocytes % (Manual) 11.8 Monocytes % 10.2 Monocytes % (Manual) 6 Eosinophils % 10.4 H Eosinophils % (Manual) 15.7 H Basophils % 1.0 Basophils % (Manual) 1.0 D Myelocytes % (Man) 2 Promyelocytes % (Man) 0 Blast Cells % (Manual) 0 Nucleated RBC % 0 Metamyelocytes 0 D Hypochromia 0 Platelet Estimate Decreased Polychromasia 1+ Poikilocytosis 0 Anisocytosis 2+ Microcytosis 2+ Macrocytosis 0 Sodium 135 L Potassium 4.4 Chloride 99 Carbon Dioxide 23 Anion Gap 13 BUN 117.7 H* Creatinine 3.5 H Est GFR (CKD-EPI)AfAm 12.72 Est GFR (CKD-EPI)NonAf 10.97 POC Glucometer Random Glucose 156 H Calcium 7.9 L Active Medications Generic Name Dose Route Start Last Admin Trade Name Freq PRN Reason Stop Dose Admin Apixaban 2.5 mg 10/04/19 22:00 10/05/19 10:30 Eliquis - PO 2.5 mg BID AMRIT Administration Carvedilol 25 mg 10/01/19 10:00 10/05/19 10:30 Coreg - PO 25 mg BID AMRIT Administration Docusate Sodium 300 mg 10/01/19 22:00 10/04/19 21:50 Colace - PO 300 mg HS AMRIT Administration Furosemide 80 mg 10/03/19 06:00 10/05/19 06:03 Lasix Injection - IVPUSH 80 mg BIDLASIX AMRIT Administration Hydralazine HCl 10 mg 09/29/19 14:00 10/05/19 06:03 Apresoline - PO 10 mg TID AMRIT Administration Ertapenem 0.5 gm/ Sodium 50 mls @ 100 mls/hr 10/01/19 10:00 10/05/19 10:27 Chloride IVPB 100 mls/hr DAILY AMRIT Administration Insulin Aspart 1 vial 10/01/19 07:00 10/05/19 06:34 Novolog Vial Sliding Scale - SQ 2 units ACHS AMRIT Administration Protocol Lactobacillus Acidophilus 1 tab 09/29/19 14:30 10/05/19 10:30 Bacid - PO 1 tab DAILY AMRIT Administration Letrozole 2.5 mg 10/01/19 10:00 10/05/19 10:30 Femara - PO 2.5 mg DAILY MARIT Administration Levothyroxine Sodium 100 mcg 10/01/19 07:00 10/05/19 06:03 Synthroid - PO 100 mcg ACBK AMRIT Administration Loratadine 10 mg 10/01/19 10:00 10/05/19 10:30 Claritin - PO 10 mg DAILY AMRIT Administration Nitroglycerin 1 inch 10/03/19 14:26 10/05/19 06:03 Nitro-Bid 2% Paste - TD 1 inch Q6HPO AMRIT Administration Non-Formulary Medication 2 gm 09/30/19 23:14 Diclofenac Sodium [Diclofenac Sodium] TP Q8H PRN PAIN Oxycodone HCl 5 mg 10/01/19 01:38 10/05/19 04:16 Roxicodone - PO 5 mg Q6H PRN Administration PAIN LEVEL 6-10 Pantoprazole Sodium 40 mg 10/01/19 10:00 10/05/19 10:30 Protonix - PO 40 mg DAILY AMRIT Administration Polyethylene Glycol 17 gm 10/01/19 10:00 10/05/19 10:27 Miralax (For Daily Use) - PO 17 gm BID AMRIT Administration Simethicone 80 mg 09/30/19 23:14 10/02/19 14:25 Mylicon - PO 80 mg Q4H PRN Administration GAS ASSESSMENT/PLAN: 89F from [facility] with pmhx of diastolic CHF, a-fib (on Eliquis), CKD, breast cancer s/p mastectomy, myelodysplasia, IDDM type 2, hypothyroidism, HLD, CVA, and GERD presents with b/l leg swelling and nausea for "weeks" and back pain for several days admitted for acute CHF exacerbation. #Acute on Chronic Diastolic CHF Exacerbation; Continues to have bibasilar crackles, b/l LE edema improving. -Daily weights, I/Os, 2gm Na diet w/ fluid restriction -Cardio consulted; currently on Lasix 80 BID IV -Cont O2 NC, currently on 2L intermittently -Repeat Echo (10/03) showed LV wnl, EF 55-60%, atria severely dilated, RV borderline in size and fxn, AV sclerotic, MV severe annular calcification, trace MR, mod to sev TR and sev pHTN, possible small pericardial effusion -F/u cardio recs #ESBL UTI; No urinary symptoms -UCx +ESBL Kleb pneumo; repeat UCx +Group D strep/enterococcus -Per ID, cont Ertapenem 500 mg QD (on Day 5; has had 12 days total of IV abx so far) #New 4 cm L Hepatic Lobe lesion; in setting of hx of breast cancer and myelodysplasia -Onc consulted- Dr. Sullivan spoke to pt at length last week, and pt agrees to have breast cancer markers (CA 27,29) and colon cancer markers (CEA) (last colonoscopy was about 1 year ago and negative, so less likely from colon) instead of liver biopsy at this time; if findings are from breast ca, adjustments can be made to hormonal therapy -Per palliative care, goal is to be more comfortable, hospice would be appropriate if patient and family are in agreement. Will add Dilaudid 0.5 mg IV q6h PRN fo rpain Cont home meds: Letrozole 2.5 QD #Stage 2 sacral ulcer; not infected -Santyl and bandage -Frequent turning and positioning -Dilaudid 0.5 mg Q6H PRN for pain #Hyponatremia; likely 2/2 fluid overload. Resolved. -2gm Na diet w/ fluid restriction -IV diuresis -Renal consulted #MAURICE on CKD; BUN/Cr worsening. -Hold amlodipine, hydralazine to allow for pressure drop and prevent hypoperfusion from IV Lasix -serial BMPs to monitor Cr (baseline near 2) -Per renal, pt and family do not want HD #Anemia; likely multi-factorial in setting of CKD, myelodysplasia, r/o GI bleed. s/p 1 dose of IV Venofer -Hb 7.4 (was 8.3 s/p 3U pRBCs last admission 08/24); Fe 31, TIBC 202, Fe sat 15, Ferr 986.2 -During last admission, was seen by heme with recommendation for outpt workup -Tranfuse PRN to maintain Hgb >7 -FOBT neg #HTN; Stable. Cont home med: Carvedilol 25 BID. Per cardio, will cont rest of home meds when BP stable #Generalized abdominal pain; 2/2 constipation vs. liver mass -Oxycodone 5mg Q6H PRN for pain, Diclofenac cream -Miralax 17 gm BID for constipation -QTc 484, try to avoid Zofran for nausea/vomiting #Hypothyroidism; Cont home meds: Synthroid 100 #Prophylaxis DVT: Cont home Eliquis 2.5 BID GI: Cont home Protonix 40 FEN -Fluid restriction -monitor Na, Cl, and Cr -sodium/diabetic diet Dispo -cont to monitor on med-surg -Pt has MOLST on file, however specified that she wants FULL CODE-- will clarify current goals. -Palliative care discussed with patient goals of care. Pt would like to be comfortable and not do HD despite worsening kidney function. Hospice is appropriate for patient. Will discuss with patient and family regarding hospice care. Visit type - Emergency Visit Emergency Visit: Yes ED Registration Date: 09/24/19 Care time: The patient presented to the Emergency Department on the above date and was hospitalized for further evaluation of their emergent condition. - New Patient This patient is new to me today: No - Critical Care Critical Care patient: No ATTENDING PHYSICIAN STATEMENT I saw and evaluated the patient. I reviewed the resident's note and discussed the case with the resident. I agree with the resident's findings and plan as documented. SUBJECTIVE: OBJECTIVE: ASSESSMENT AND PLAN:
[2019-10-05] MEDS ORDERED: HYDROmorphone HCl 2 MG/ML VIAL IVPB PRN (11:18)
[2019-10-05] MEDS ORDERED: INSULIN (NOVOLOG) ASPART 100 UNITS/ML 10ML VIAL ONE (11:46)
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
--- NOTE | 2019-10-05 15:19 | PN ---
Progress Note (short form) - Note Progress Note: Chief Complaint: sob History of Present Illness: no sob, le edema better, no cp, no palps Current Medications Generic Name Dose Route Start Last Admin Trade Name Meena PRN Reason Stop Dose Admin Apixaban 2.5 mg 10/04/19 22:00 10/05/19 10:30 Eliquis - PO 2.5 mg BID AMRIT Administration Carvedilol 25 mg 10/01/19 10:00 10/05/19 10:30 Coreg - PO 25 mg BID AMRIT Administration Docusate Sodium 300 mg 10/01/19 22:00 10/04/19 21:50 Colace - PO 300 mg HS AMRIT Administration Furosemide 80 mg 10/03/19 06:00 10/05/19 14:52 Lasix Injection - IVPUSH 80 mg BIDLASIX AMRIT Administration Hydralazine HCl 10 mg 09/29/19 14:00 10/05/19 14:52 Apresoline - PO 10 mg TID AMRIT Administration Hydromorphone HCl 0.5 mg 10/05/19 11:18 Dilaudid Vial - IVPB Q6H PRN PAIN LEVEL 6-10 Ertapenem 0.5 gm/ Sodium 50 mls @ 100 mls/hr 10/01/19 10:00 10/05/19 10:27 Chloride IVPB 100 mls/hr DAILY AMRIT Administration Insulin Aspart 1 vial 10/01/19 07:00 10/05/19 12:28 Novolog Vial Sliding Scale - SQ 2 units ACHS AMRIT Administration Protocol Lactobacillus Acidophilus 1 tab 09/29/19 14:30 10/05/19 10:30 Bacid - PO 1 tab DAILY AMRIT Administration Letrozole 2.5 mg 10/01/19 10:00 10/05/19 10:30 Femara - PO 2.5 mg DAILY AMRIT Administration Levothyroxine Sodium 100 mcg 10/01/19 07:00 10/05/19 06:03 Synthroid - PO 100 mcg ACBK AMRIT Administration Loratadine 10 mg 10/01/19 10:00 10/05/19 10:30 Claritin - PO 10 mg DAILY AMRIT Administration Nitroglycerin 1 inch 10/03/19 14:26 10/05/19 12:28 Nitro-Bid 2% Paste - TD 1 inch Q6HPO AMRIT Administration Non-Formulary Medication 2 gm 09/30/19 23:14 Diclofenac Sodium [Diclofenac Sodium] TP Q8H PRN PAIN Oxycodone HCl 5 mg 10/01/19 01:38 10/05/19 04:16 Roxicodone - PO 5 mg Q6H PRN Administration PAIN LEVEL 6-10 Pantoprazole Sodium 40 mg 10/01/19 10:00 10/05/19 10:30 Protonix - PO 40 mg DAILY AMRIT Administration Polyethylene Glycol 17 gm 10/01/19 10:00 10/05/19 10:27 Miralax (For Daily Use) - PO 17 gm BID AMRIT Administration Simethicone 80 mg 09/30/19 23:14 10/02/19 14:25 Mylicon - PO 80 mg Q4H PRN Administration GAS Vital Signs Period Temp Pulse Resp BP Sys/Hernandez Pulse Ox Last 24 Hr 97.8 F-98.7 F 91-102 16-20 97-126/48-66 97-97 Constitutional: Yes: No Distress, Calm Eyes: No: Sclera Icterus HENT: No: Nasal Congestion Cardiovascular: Yes: Pulse Irregular, JVD, S1, S2, Other (PMI non diplaced). No: Gallop, Murmur Respiratory: Yes: Regular, CTA Bilaterally. No: Accessory Muscle Use Gastrointestinal: Yes: Normal Bowel Sounds, Soft. No: Tenderness Extremities: No: Cold, Cyanosis Edema: Yes (trace) Integumentary: No: Jaundice Neurological: Yes: Alert, Oriented (x3) Psychiatric: No: Agitated Labs: Laboratory Last Values WBC 15.5 K/mm3 (4.0-10.0) H 10/04/19 07:18 RBC 2.51 M/mm3 (3.60-5.2) L 10/04/19 07:18 Hgb 7.6 GM/dL (10.7-15.3) L 10/04/19 07:18 Hct 23.7 % (32.4-45.2) L 10/04/19 07:18 MCV 94.2 fl (80-96) 10/04/19 07:18 MCH 30.3 pg (25.7-33.7) 10/04/19 07:18 MCHC 32.2 g/dl (32.0-36.0) 10/04/19 07:18 RDW 19.7 % (11.6-15.6) H 10/04/19 07:18 Plt Count 104 K/MM3 (134-434) L 10/04/19 07:18 MPV 8.9 fl (7.5-11.1) 10/04/19 07:18 Absolute Neuts (auto) 12.2 K/mm3 (1.5-8.0) H 10/02/19 07:10 Total Counted 100 09/25/19 05:51 Neutrophils % 69.0 % (42.8-82.8) 10/02/19 07:10 Neutrophils % (Manual) 61.0 % (42.8-82.8) 10/02/19 07:10 Band Neutrophils % 3.0 % 10/02/19 07:10 Lymphocytes % 8.2 % (8-40) 10/02/19 07:10 Lymphocytes % (Manual) 12.0 % (8-40) 10/02/19 07:10 Monocytes % 11.7 % (3.8-10.2) H 10/02/19 07:10 Monocytes % (Manual) 7 % (3.8-10.2) 10/02/19 07:10 Eosinophils % 9.7 % (0-4.5) H 10/02/19 07:10 Eosinophils % (Manual) 13.0 % (0-4.5) H 10/02/19 07:10 Basophils % 1.4 % (0-2.0) 10/02/19 07:10 Basophils % (Manual) 0.0 % (0-2.0) 10/02/19 07:10 Myelocytes % (Man) 2 % (0-2) D 10/02/19 07:10 Promyelocytes % (Man) 0 % (0-2) 10/02/19 07:10 Blast Cells % (Manual) 0 % (0-0) 10/02/19 07:10 Nucleated RBC % 0 % (0-0) 10/02/19 07:10 Metamyelocytes 2 % (0-2) D 10/02/19 07:10 Hypochromia 1+ 10/02/19 07:10 Platelet Estimate Decreased 10/02/19 07:10 Platelet Comment No clumping noted 09/24/19 16:49 Polychromasia 1+ 10/02/19 07:10 Poikilocytosis 0 10/02/19 07:10 Basophilic Stippling 1+ 10/02/19 07:10 Anisocytosis 1+ 10/02/19 07:10 Microcytosis 1+ 10/02/19 07:10 Macrocytosis 0 10/02/19 07:10 Spherocytes 1+ 10/01/19 08:18 Target Cells 2+ 09/30/19 08:06 Tear Drop Cells 1+ 10/01/19 08:18 Ovalocytes 1+ 09/28/19 05:22 Stomatocytes 1+ 10/01/19 08:18 Fragmented RBCs 1+ 10/01/19 08:18 PT with INR 18.90 SEC (9.7-13.0) H 10/01/19 08:18 INR 1.59 (0.83-1.09) H 10/01/19 08:18 PTT (Actin FS) 30.4 SECONDS (25.2-36.5) 09/24/19 16:49 Sodium 134 mmol/L (136-145) L 10/04/19 07:18 Potassium 4.7 mmol/L (3.5-5.1) 10/04/19 07:18 Chloride 99 mmol/L (98-107) 10/04/19 07:18 Carbon Dioxide 21 mmol/L (21-32) 10/04/19 07:18 Anion Gap 14 MMOL/L (8-16) 10/04/19 07:18 BUN 116.6 mg/dL (7-18) H* 10/04/19 07:18 Creatinine 3.5 mg/dL (0.55-1.3) H 10/04/19 07:18 Est GFR (CKD-EPI)AfAm 12.72 10/04/19 07:18 Est GFR (CKD-EPI)NonAf 10.97 10/04/19 07:18 POC Glucometer 185 UNITS (80-120) 10/04/19 10:59 Random Glucose 144 mg/dL (74-106) H 10/04/19 07:18 Serum Osmolality 305 mosm/kg (278-305) 09/26/19 05:52 Lactic Acid 1.0 mmol/L (0.4-2.0) 09/24/19 19:10 Calcium 8.3 mg/dL (8.5-10.1) L 10/04/19 07:18 Phosphorus 6.0 mg/dL (2.5-4.9) H 10/04/19 07:18 Magnesium 2.3 mg/dL (1.8-2.4) 10/04/19 07:18 Iron 31 ug/dL (50-175) L 09/26/19 19:40 TIBC 202 ug/dL (250-450) L 09/26/19 19:40 Iron Saturation 15 % (17.5-39) L 09/26/19 19:40 Unsaturated IBC 171 ug/dL (200-275) L 09/26/19 19:40 Ferritin 986.2 ng/ml (8-388) H 09/26/19 19:40 Total Bilirubin 0.7 mg/dL (0.2-1) 09/29/19 05:52 AST 17 U/L (15-37) 09/29/19 05:52 ALT 15 U/L (13-61) 09/29/19 05:52 Alkaline Phosphatase 375 U/L (45-117) H 09/29/19 05:52 Troponin I < 0.02 ng/ml (0.00-0.05) 09/24/19 16:49 B-Natriuretic Peptide 43587.9 pg/ml (5-450) H 09/24/19 16:49 Total Protein 6.7 g/dl (6.4-8.2) 09/29/19 05:52 Albumin 2.3 g/dl (3.4-5.0) L 09/29/19 05:52 Carcinoembryonic Ag 6.4 ng/mL (0.0-4.7) H 10/02/19 07:10 CA 27-29 75 U/mL (0.0-38.6) H 10/02/19 07:10 Urine Color Yellow 09/24/19 20:45 Urine Appearance Turbid 09/24/19 20:45 Urine pH 5.5 (5.0-8.0) 09/24/19 20:45 Ur Specific [place] 1.015 (1.010-1.035) 09/24/19 20:45 Urine Protein 3+ (NEGATIVE) H 09/24/19 20:45 Urine Glucose (UA) Negative (NEGATIVE) 09/24/19 20:45 Urine Ketones Negative (NEGATIVE) 09/24/19 20:45 Urine Blood Negative (NEGATIVE) 09/24/19 20:45 Urine Nitrite Negative (NEGATIVE) 09/24/19 20:45 Urine Bilirubin Negative (NEGATIVE) 09/24/19 20:45 Urine Urobilinogen 0.2 mg/dL (0.2-1.0) 09/24/19 20:45 Ur Leukocyte Esterase 2+ (NEGATIVE) H 09/24/19 20:45 Urine WBC (Auto) 1325 /uL (0-25.8) 09/24/19 20:45 Urine RBC (Auto) 25 /uL (0-23.9) 09/24/19 20:45 Urine Casts (Auto) 1 /uL (0-3.1) 09/24/19 20:45 U Epithel Cells (Auto) 6 /uL (0-25.1) 09/24/19 20:45 Urine Bacteria (Auto) >10,000 /uL (0-1359) 09/24/19 20:45 Urine Osmolality 287 mosm/kg (300-900) L 09/25/19 12:15 Ur Random Sodium 38 MMOL/L (40-220) L 09/25/19 12:15 Stool Occult Blood Negative (NEGATIVE) 09/26/19 17:58 COVID-19 (TOYA) Not detected (Not Detected) 09/24/19 20:54 Anti-A Titer Cancelled 10/02/19 17:00 Blood Type Cancelled 10/02/19 17:00 Antibody Screen Cancelled 10/02/19 17:00 Crossmatch See Detail 10/02/19 16:35 Assessment/Plan echo 03/2019 nl LV function, mild MR, mild TR, PASP at least 49 mmHg echo 09/2019 nl LV function, RV borderline size and function, severely dilated atria, severe MAC, mod to severe TR, severe pulm HTN, possible small effusion IMP/REC: Acute diastolic heart failure exacerbation: - recent echo nl LV function - no signs acs - no reliable wts trend here - continue lasix, holding aldactone - getting lasix 80 iv bid with metolazone PRN BUN/cr rising, Na stable. - per d/w dr georges it is likely her renal fxn will not improve with effective diuresis, and pt will need to decide btw HD and palliative care - cont nitrates for cardiorenal syndrome - palliative care is following HTN: - bp stable - cont current meds crow on CKD: - Baseline creat from last admission is 2-2.5, elevated now, likely cardiorenal - renal following PAF: -cont coreg for rate control -cont eliquis low dose (age, creatinine) liver mass: -heme/onc following anemia: -hgb 7s, stable -? sec to CKD -per primary team, heme-onc
--- NOTE | 2019-10-05 15:37 | PN ---
Teaching Attending Note Name of Resident: Gail Martinez ATTENDING PHYSICIAN STATEMENT I saw and evaluated the patient. I reviewed the resident's note and discussed the case with the resident. I agree with the resident's findings and plan as documented. SUBJECTIVE: Patient comfortable with no acute distress. OBJECTIVE: Vital Signs Temperature 98.5 F 10/05/19 14:44 Pulse Rate 98 H 10/05/19 14:44 Respiratory Rate 20 10/05/19 14:44 Blood Pressure 126/66 10/05/19 14:44 O2 Sat by Pulse Oximetry (%) 97 10/05/19 09:00 PE: per resident's note CBCD WBC 15.3 K/mm3 (4.0-10.0) H 10/05/19 06:15 RBC 2.46 M/mm3 (3.60-5.2) L 10/05/19 06:15 Hgb 7.4 GM/dL (10.7-15.3) L 10/05/19 06:15 Hct 23.0 % (32.4-45.2) L 10/05/19 06:15 MCV 93.7 fl (80-96) 10/05/19 06:15 MCHC 32.1 g/dl (32.0-36.0) 10/05/19 06:15 RDW 20.3 % (11.6-15.6) H 10/05/19 06:15 Plt Count 99 K/MM3 (134-434) L 10/05/19 06:15 MPV 9.1 fl (7.5-11.1) 10/05/19 06:15 CMP Sodium 135 mmol/L (136-145) L 10/05/19 06:15 Potassium 4.4 mmol/L (3.5-5.1) 10/05/19 06:15 Chloride 99 mmol/L (98-107) 10/05/19 06:15 Carbon Dioxide 23 mmol/L (21-32) 10/05/19 06:15 Anion Gap 13 MMOL/L (8-16) 10/05/19 06:15 BUN 117.7 mg/dL (7-18) H* 10/05/19 06:15 Creatinine 3.5 mg/dL (0.55-1.3) H 10/05/19 06:15 Random Glucose 156 mg/dL (74-106) H 10/05/19 06:15 Calcium 7.9 mg/dL (8.5-10.1) L 10/05/19 06:15 Total Bilirubin 0.7 mg/dL (0.2-1) 09/29/19 05:52 AST 17 U/L (15-37) 09/29/19 05:52 ALT 15 U/L (13-61) 09/29/19 05:52 Alkaline Phosphatase 375 U/L (45-117) H 09/29/19 05:52 Total Protein 6.7 g/dl (6.4-8.2) 09/29/19 05:52 Albumin 2.3 g/dl (3.4-5.0) L 09/29/19 05:52 CARDIAC ENZYMES Troponin I < 0.02 ng/ml (0.00-0.05) 09/24/19 16:49 Current Medications Generic Name Dose Route Start Last Admin Trade Name Freq PRN Reason Stop Dose Admin Apixaban 2.5 mg 10/04/19 22:00 10/05/19 10:30 Eliquis - PO 2.5 mg BID [facility] Administration Carvedilol 25 mg 10/01/19 10:00 10/05/19 10:30 Coreg - PO 25 mg BID [facility] Administration Docusate Sodium 300 mg 10/01/19 22:00 10/04/19 21:50 Colace - PO 300 mg HS [facility] Administration Furosemide 80 mg 10/03/19 06:00 10/05/19 14:52 Lasix Injection - IVPUSH 80 mg BIDLASIX [facility] Administration Hydralazine HCl 10 mg 09/29/19 14:00 10/05/19 14:52 Apresoline - PO 10 mg TID [facility] Administration Hydromorphone HCl 0.5 mg 10/05/19 11:18 Dilaudid Vial - IVPB Q6H PRN PAIN LEVEL 6-10 Ertapenem 0.5 gm/ Sodium 50 mls @ 100 mls/hr 10/01/19 10:00 10/05/19 10:27 Chloride IVPB 100 mls/hr DAILY [facility] Administration Insulin Aspart 1 vial 10/01/19 07:00 10/05/19 12:28 Novolog Vial Sliding Scale - SQ 2 units ACHS [facility] Administration Protocol Lactobacillus Acidophilus 1 tab 09/29/19 14:30 10/05/19 10:30 Bacid - PO 1 tab DAILY [facility] Administration Letrozole 2.5 mg 10/01/19 10:00 10/05/19 10:30 Femara - PO 2.5 mg DAILY [facility] Administration Levothyroxine Sodium 100 mcg 10/01/19 07:00 10/05/19 06:03 Synthroid - PO 100 mcg ACBK [facility] Administration Loratadine 10 mg 10/01/19 10:00 10/05/19 10:30 Claritin - PO 10 mg DAILY [facility] Administration Nitroglycerin 1 inch 10/03/19 14:26 10/05/19 12:28 Nitro-Bid 2% Paste - TD 1 inch Q6HPO [facility] Administration Non-Formulary Medication 2 gm 09/30/19 23:14 Diclofenac Sodium [Diclofenac Sodium] TP Q8H PRN PAIN Oxycodone HCl 5 mg 10/01/19 01:38 10/05/19 04:16 Roxicodone - PO 5 mg Q6H PRN Administration PAIN LEVEL 6-10 Pantoprazole Sodium 40 mg 10/01/19 10:00 10/05/19 10:30 Protonix - PO 40 mg DAILY [facility] Administration Polyethylene Glycol 17 gm 10/01/19 10:00 10/05/19 10:27 Miralax (For Daily Use) - PO 17 gm BID [facility] Administration Simethicone 80 mg 09/30/19 23:14 10/02/19 14:25 Mylicon - PO 80 mg Q4H PRN Administration GAS Home Medications Medication Instructions Recorded Calcium Carbonate/Vitamin D3 1 each PO BID 06/23/18 [Calcium 500-Vit D3 400 Tablet] Carvedilol [Coreg -] 25 mg PO BID 06/23/18 Polyethylene Glycol 3350 [Miralax 17 gm PO DAILY PRN bottle 04/27/19 119 gm Btl -] Amlodipine Besylate [Norvasc -] 5 mg PO DAILY 08/12/19 Apixaban [Eliquis] 2.5 mg PO BID 08/12/19 Furosemide [Lasix -] 80 mg PO BID 08/12/19 Isosorbide Mononitrate [Imdur -] 60 mg PO DAILY 08/12/19 Sitagliptin Phosphate [Januvia] 25 mg PO DAILY 08/12/19 hydrALAZINE HCL [Apresoline -] 10 mg PO TID 08/12/19 Insulin Glargine,Hum.rec.anlog 25 unit SQ DAILY 09/24/19 [Lantus] Insulin Lispro [Humalog] 100 unit SQ PRN 09/24/19 Letrozole [Femara] 2.5 mg PO DAILY 09/24/19 Omeprazole 20 mg PO DAILY 09/24/19 Pantoprazole Sodium [Protonix] 40 mg PO DAILY 09/24/19 Simethicone 125 mg PO Q4H PRN 09/24/19 Multivitamin [One-Daily 1 each PO DAILY 09/25/19 Multi-Vitamin] Ondansetron [Zofran -] 4 mg PO Q4H PRN 09/25/19 Oxycodone HCl/Acetaminophen 1 tab PO Q12H PRN 09/25/19 [Percocet 5-325 mg Tablet] Diclofenac Sodium 2 gm TP DAILY 09/26/19 ASSESSMENT AND PLAN: This patient is a 89yof with PMhx of diastolic CHF, a-fib (on Eliquis), CKD, breast cancer s/p mastectomy, myelodysplasia, IDDM type 2, hypothyroidism, HLD, CVA, and GERD who was admitted for acute D CHF exacerbation #Acute on chronic diastolic heart failure : ON IV lasix 80mh bid, metolazone prn #ESBL producing Klebsiealla complicated UTI/pyelonephritis : On Ertapenem 500mg renally dosed day #9 #MAURICE on CKD : nephro on the case, continue to monitor #Liver mass : Bx Deferred , follow tumor markers , bone scan #Retroperitoneal LAP #B/L adrenal nodules # Hx of MDS #Chronic normocytic anemia #prolonged QTC: 484 will repeat ekg #high AG metabolic acidosis :resolved # Hx of A fib on Eliquis continue 2.5mg , on Coreg continue #Stage 2 R gluteal decubitus ulcer : frequent turning. patient can't turn due to back pain. she declined after repositioned. air mattress
--- NOTE | 2019-10-05 18:25 | PN ---
Progress Note, Physician History of Present Illness: Pt seen and examined at bedside. She is awake and alert. She does not feel much different from yesterday. - Current Medication List Current Medications: Active Medications Apixaban (Eliquis -) 2.5 mg PO BID [facility] Last Admin: 10/05/19 10:30 Dose: 2.5 mg Documented by: Carvedilol (Coreg -) 25 mg PO BID [facility] Last Admin: 10/05/19 10:30 Dose: 25 mg Documented by: Docusate Sodium (Colace -) 300 mg PO HS [facility] Last Admin: 10/04/19 21:50 Dose: 300 mg Documented by: Furosemide (Lasix Injection -) 80 mg IVPUSH BIDLASIX [facility] Last Admin: 10/05/19 14:52 Dose: 80 mg Documented by: Hydralazine HCl (Apresoline -) 10 mg PO TID [facility] Last Admin: 10/05/19 14:52 Dose: 10 mg Documented by: Hydromorphone HCl (Dilaudid Vial -) 0.5 mg IVPB Q6H PRN PRN Reason: PAIN LEVEL 6-10 Last Admin: 10/05/19 17:05 Dose: 0.5 mg Documented by: Ertapenem 0.5 gm/ Sodium (Chloride) 50 mls @ 100 mls/hr IVPB DAILY [facility] Last Admin: 10/05/19 10:27 Dose: 100 mls/hr Documented by: Insulin Aspart (Novolog Vial Sliding Scale -) 1 vial SQ ACHS [facility]; Protocol Last Admin: 10/05/19 17:07 Dose: Not Given Documented by: Lactobacillus Acidophilus (Bacid -) 1 tab PO DAILY [facility] Last Admin: 10/05/19 10:30 Dose: 1 tab Documented by: Letrozole (Femara -) 2.5 mg PO DAILY [facility] Last Admin: 10/05/19 10:30 Dose: 2.5 mg Documented by: Levothyroxine Sodium (Synthroid -) 100 mcg PO ACBK [facility] Last Admin: 10/05/19 06:03 Dose: 100 mcg Documented by: Loratadine (Claritin -) 10 mg PO DAILY [facility] Last Admin: 10/05/19 10:30 Dose: 10 mg Documented by: Nitroglycerin (Nitro-Bid 2% Paste -) 1 inch TD Q6HPO [facility] Last Admin: 10/05/19 17:07 Dose: 1 inch Documented by: Non-Formulary Medication (Diclofenac Sodium [Diclofenac Sodium]) 2 gm TP Q8H PRN PRN Reason: PAIN Oxycodone HCl (Roxicodone -) 5 mg PO Q6H PRN PRN Reason: PAIN LEVEL 6-10 Last Admin: 10/05/19 04:16 Dose: 5 mg Documented by: Pantoprazole Sodium (Protonix -) 40 mg PO DAILY [facility] Last Admin: 10/05/19 10:30 Dose: 40 mg Documented by: Polyethylene Glycol (Miralax (For Daily Use) -) 17 gm PO BID [facility] Last Admin: 10/05/19 10:27 Dose: 17 gm Documented by: Simethicone (Mylicon -) 80 mg PO Q4H PRN PRN Reason: GAS Last Admin: 10/02/19 14:25 Dose: 80 mg Documented by: - Objective Vital Signs: Vital Signs Temperature 98.5 F 10/05/19 14:44 Pulse Rate 98 H 10/05/19 14:44 Respiratory Rate 20 10/05/19 14:44 Blood Pressure 126/66 10/05/19 14:44 O2 Sat by Pulse Oximetry (%) 97 10/05/19 09:00 Constitutional: Yes: Calm Eyes: Yes: Conjunctiva Clear HENT: Yes: Atraumatic Cardiovascular: Yes: S1, S2 Respiratory: Yes: On Nasal O2 Gastrointestinal: Yes: Soft Genitourinary: Yes: Incontinence Edema: Yes Edema: LLE: 1+, RLE: 1+ Integumentary: Yes: Venous Stasis Changes Neurological: Yes: Oriented Psychiatric: Yes: Oriented Labs: CBC, BMP 10/05/19 06:15 10/05/19 06:15 INR, PTT INR 1.59 (0.83-1.09) H 10/01/19 08:18 Assessment/Plan Current Medications Generic Name Dose Route Start Last Admin Trade Name Freq PRN Reason Stop Dose Admin Apixaban 2.5 mg 10/04/19 22:00 10/05/19 10:30 Eliquis - PO 2.5 mg BID [facility] Administration Carvedilol 25 mg 10/01/19 10:00 10/05/19 10:30 Coreg - PO 25 mg BID [facility] Administration Docusate Sodium 300 mg 10/01/19 22:00 10/04/19 21:50 Colace - PO 300 mg HS [facility] Administration Furosemide 80 mg 10/03/19 06:00 10/05/19 14:52 Lasix Injection - IVPUSH 80 mg BIDLASIX [facility] Administration Hydralazine HCl 10 mg 09/29/19 14:00 10/05/19 14:52 Apresoline - PO 10 mg TID [facility] Administration Hydromorphone HCl 0.5 mg 10/05/19 11:18 10/05/19 17:05 Dilaudid Vial - IVPB 0.5 mg Q6H PRN Administration PAIN LEVEL 6-10 Ertapenem 0.5 gm/ Sodium 50 mls @ 100 mls/hr 10/01/19 10:00 10/05/19 10:27 Chloride IVPB 100 mls/hr DAILY [facility] Administration Insulin Aspart 1 vial 10/01/19 07:00 10/05/19 17:07 Novolog Vial Sliding Scale - SQ Not Given ACHS [facility] Protocol Lactobacillus Acidophilus 1 tab 09/29/19 14:30 10/05/19 10:30 Bacid - PO 1 tab DAILY [facility] Administration Letrozole 2.5 mg 10/01/19 10:00 10/05/19 10:30 Femara - PO 2.5 mg DAILY [facility] Administration Levothyroxine Sodium 100 mcg 10/01/19 07:00 10/05/19 06:03 Synthroid - PO 100 mcg ACBK [facility] Administration Loratadine 10 mg 10/01/19 10:00 10/05/19 10:30 Claritin - PO 10 mg DAILY [facility] Administration Nitroglycerin 1 inch 10/03/19 14:26 10/05/19 17:07 Nitro-Bid 2% Paste - TD 1 inch Q6HPO [facility] Administration Non-Formulary Medication 2 gm 09/30/19 23:14 Diclofenac Sodium [Diclofenac Sodium] TP Q8H PRN PAIN Oxycodone HCl 5 mg 10/01/19 01:38 10/05/19 04:16 Roxicodone - PO 5 mg Q6H PRN Administration PAIN LEVEL 6-10 Pantoprazole Sodium 40 mg 10/01/19 10:00 10/05/19 10:30 Protonix - PO 40 mg DAILY [facility] Administration Polyethylene Glycol 17 gm 10/01/19 10:00 10/05/19 10:27 Miralax (For Daily Use) - PO 17 gm BID [facility] Administration Simethicone 80 mg 09/30/19 23:14 10/02/19 14:25 Mylicon - PO 80 mg Q4H PRN Administration GAS Impression 1. proteinuria 2. hypothyroid 3. HTN 4. DM 5. fluid overload 6. breast cancer 7. anemia 8. CKD 9. CHF 10. hyponatremia 11. hypokalemia Plan - cont to monitor renal function - cont IV lasix for now - repeat labs in am - monitor weights - restrict fluids - check phos level, will start binder if elevated - pt does not want dialysis - monitor volume status - cardio input appreciated
[2019-10-05] MEDS: DOCUSATE SODIUM 100 MG CAPSULE (FP) PO SCH (21:52)
--- NOTE | 2019-10-05 22:39 | PN ---
Progress Note, Physician History of Present Illness: AWAKE IN BED LETHARGIC NO C/O FEVER/CHILLS REPEAT URINE C/S ENTEROCOCCUS SP VRE - Current Medication List Current Medications: Active Medications Apixaban (Eliquis -) 2.5 mg PO BID [facility] Last Admin: 10/05/19 21:52 Dose: 2.5 mg Documented by: Carvedilol (Coreg -) 25 mg PO BID [facility] Last Admin: 10/05/19 21:52 Dose: 25 mg Documented by: Docusate Sodium (Colace -) 300 mg PO HS [facility] Last Admin: 10/05/19 21:52 Dose: 300 mg Documented by: Furosemide (Lasix Injection -) 80 mg IVPUSH BIDLASIX [facility] Last Admin: 10/05/19 14:52 Dose: 80 mg Documented by: Hydralazine HCl (Apresoline -) 10 mg PO TID [facility] Last Admin: 10/05/19 21:52 Dose: 10 mg Documented by: Hydromorphone HCl (Dilaudid Vial -) 0.5 mg IVPB Q6H PRN PRN Reason: PAIN LEVEL 6-10 Last Admin: 10/05/19 17:05 Dose: 0.5 mg Documented by: Ertapenem 0.5 gm/ Sodium (Chloride) 50 mls @ 100 mls/hr IVPB DAILY [facility] Last Admin: 10/05/19 10:27 Dose: 100 mls/hr Documented by: Insulin Aspart (Novolog Vial Sliding Scale -) 1 vial SQ ACHS [facility]; Protocol Last Admin: 10/05/19 21:52 Dose: Not Given Documented by: Lactobacillus Acidophilus (Bacid -) 1 tab PO DAILY [facility] Last Admin: 10/05/19 10:30 Dose: 1 tab Documented by: Letrozole (Femara -) 2.5 mg PO DAILY [facility] Last Admin: 10/05/19 10:30 Dose: 2.5 mg Documented by: Levothyroxine Sodium (Synthroid -) 100 mcg PO ACBK [facility] Last Admin: 10/05/19 06:03 Dose: 100 mcg Documented by: Loratadine (Claritin -) 10 mg PO DAILY [facility] Last Admin: 10/05/19 10:30 Dose: 10 mg Documented by: Nitroglycerin (Nitro-Bid 2% Paste -) 1 inch TD Q6HPO [facility] Last Admin: 10/05/19 17:07 Dose: 1 inch Documented by: Non-Formulary Medication (Diclofenac Sodium [Diclofenac Sodium]) 2 gm TP Q8H PRN PRN Reason: PAIN Oxycodone HCl (Roxicodone -) 5 mg PO Q6H PRN PRN Reason: PAIN LEVEL 6-10 Last Admin: 10/05/19 04:16 Dose: 5 mg Documented by: Pantoprazole Sodium (Protonix -) 40 mg PO DAILY [facility] Last Admin: 10/05/19 10:30 Dose: 40 mg Documented by: Polyethylene Glycol (Miralax (For Daily Use) -) 17 gm PO BID [facility] Last Admin: 10/05/19 21:52 Dose: Not Given Documented by: Simethicone (Mylicon -) 80 mg PO Q4H PRN PRN Reason: GAS Last Admin: 10/02/19 14:25 Dose: 80 mg Documented by: - Objective Vital Signs: Vital Signs Temperature 98.6 F 10/05/19 18:00 Pulse Rate 98 H 10/05/19 22:00 Respiratory Rate 10/05/19 21:00 Blood Pressure 118/55 L 10/05/19 22:00 O2 Sat by Pulse Oximetry (%) 97 10/05/19 21:00 Constitutional: Yes: No Distress Eyes: Yes: Conjunctiva Clear Cardiovascular: Yes: Regular Rate and Rhythm, S1, S2 Respiratory: Yes: CTA Bilaterally Gastrointestinal: Yes: Normal Bowel Sounds, Soft Edema: No Labs: CBC, BMP 10/05/19 06:15 10/05/19 06:15 INR, PTT INR 1.59 (0.83-1.09) H 10/01/19 08:18 Assessment/Plan CHF UTI ESBL COMPLETED COURSE OF ERTAPENEM REPEAT URINE C/S ENTEROCOCCUS VRE LEUKOCYTOSIS THROMBOCYTOPENIA AZOTEMIA D/C ERTAPENEM ZYVOX 600MG PO BID X 3D CONTACT PRECAUTIONS
[2019-10-06] MEDS: NITROGLYCERIN 2% OINTMENT - 1GM PACKET TD SCH ×4 (00:30→17:35)
[2019-10-06] MEDS: hydrALAZINE HCL 10 MG TABLET PO SCH ×3 (05:54→21:11)
[2019-10-06] MEDS: FUROSEMIDE 40 MG/4 ML INJECTABLE VIAL IVPUSH SCH ×2 (05:54→16:47)
[2019-10-06] MEDS: LEVOTHYROXINE NA 100 MCG TABLET (FP) PO SCH (06:03)
[2019-10-06] MEDS: INSULIN SLIDING SCALE (NOVOLOG) 1 VIAL SQ SCH ×4 (06:05→21:12)
[2019-10-06 10:04] LABS: HEMATOCRIT 24.7 % (32.4-45.2); HEMOGLOBIN 7.7 GM/dL (10.7-15.3); MCH 29.9 pg (25.7-33.7); MCHC 31.3 g/dl (32.0-36.0); MEAN CELL VOLUME 95.6 fl (80-96); MEAN PLT VOLUME 9.1 fl (7.5-11.1); PLATELET COUNT 95 K/MM3 (134-434); RBC 2.58 M/mm3 (3.60-5.2); RDW 20.6 % (11.6-15.6); WHITE BLOOD COUNT 15.3 K/mm3 (4.0-10.0)
[2019-10-06 10:32] LABS: POTASSIUM 4.1 mmol/L (3.5-5.1)
[2019-10-06 10:36] LABS: CREATININE 3.6 mg/dL (0.55-1.3)
[2019-10-06] MEDS: LACTOBACILLUS ACIDOPHILUS 1 TABLET PO SCH (10:42)
[2019-10-06] MEDS: CARVEDILOL 25 MG TABLET (FP) PO SCH ×2 (10:43→21:11)
[2019-10-06] MEDS: ERTAPENEM SODIUM 0.5 GM in SODIUM CHLORIDE 50 ML IVPB SCH (10:43)
[2019-10-06] MEDS: APIXABAN 2.5 MG TABLET PO SCH ×2 (10:43→21:11)
[2019-10-06] MEDS: PANTOPRAZOLE 40 MG TABLET PO SCH (10:43)
[2019-10-06] MEDS: POLYETHYLENE GLYCOL 3350 119 GM BTL PO SCH ×2 (10:44→21:11)
[2019-10-06] MEDS: LETROZOLE 2.5 MG TABLET (FP) PO SCH (10:45)
[2019-10-06] MEDS: LINEZOLID 600 MG TABLET (RESTRICTED TO ID) PO SCH ×2 (12:24→21:12)
--- NOTE | 2019-10-06 13:39 | PN ---
Progress Note, Physician History of Present Illness: Pt seen and examined at bedside. She is awake and alert. She feels breathing is better. - Current Medication List Current Medications: Active Medications Apixaban (Eliquis -) 2.5 mg PO BID [facility] Last Admin: 10/06/19 10:43 Dose: 2.5 mg Documented by: Carvedilol (Coreg -) 25 mg PO BID [facility] Last Admin: 10/06/19 10:43 Dose: 25 mg Documented by: Docusate Sodium (Colace -) 300 mg PO HS [facility] Last Admin: 10/05/19 21:52 Dose: 300 mg Documented by: Furosemide (Lasix Injection -) 60 mg IVPUSH BIDLASIX [facility] Hydralazine HCl (Apresoline -) 10 mg PO TID [facility] Last Admin: 10/06/19 05:54 Dose: 10 mg Documented by: Insulin Aspart (Novolog Vial Sliding Scale -) 1 vial SQ ACHS [facility]; Protocol Last Admin: 10/06/19 12:23 Dose: 2 units Documented by: Lactobacillus Acidophilus (Bacid -) 1 tab PO DAILY [facility] Last Admin: 10/06/19 10:42 Dose: 1 tab Documented by: Letrozole (Femara -) 2.5 mg PO DAILY [facility] Last Admin: 10/06/19 10:45 Dose: 2.5 mg Documented by: Levothyroxine Sodium (Synthroid -) 100 mcg PO ACBK [facility] Last Admin: 10/06/19 06:03 Dose: 100 mcg Documented by: Linezolid (Zyvox (Restricted To Id) -) 600 mg PO BID [facility] Last Admin: 10/06/19 12:24 Dose: 600 mg Documented by: Nitroglycerin (Nitro-Bid 2% Paste -) 1 inch TD Q6HPO [facility] Last Admin: 10/06/19 12:32 Dose: 1 inch Documented by: Pantoprazole Sodium (Protonix -) 40 mg PO DAILY [facility] Last Admin: 10/06/19 10:43 Dose: 40 mg Documented by: Polyethylene Glycol (Miralax (For Daily Use) -) 17 gm PO BID [facility] Last Admin: 10/06/19 10:44 Dose: Not Given Documented by: Simethicone (Mylicon -) 80 mg PO Q4H PRN PRN Reason: GAS Last Admin: 10/02/19 14:25 Dose: 80 mg Documented by: - Objective Vital Signs: Vital Signs Temperature 97 F L 10/06/19 06:00 Pulse Rate 92 H 10/06/19 06:00 Respiratory Rate 20 10/06/19 06:00 Blood Pressure 132/67 10/06/19 06:00 O2 Sat by Pulse Oximetry (%) 99 10/06/19 09:00 Constitutional: Yes: Calm Eyes: Yes: Conjunctiva Clear HENT: Yes: Atraumatic Neck: Yes: Supple Cardiovascular: Yes: S1, S2 Respiratory: Yes: CTA Bilaterally Gastrointestinal: Yes: Soft Genitourinary: Yes: WNL Musculoskeletal: Yes: WNL Edema: Yes Edema: LLE: 1+, RLE: 1+ Neurological: Yes: Oriented Labs: CBC, BMP 10/06/19 09:05 10/06/19 09:05 INR, PTT INR 1.59 (0.83-1.09) H 10/01/19 08:18 Assessment/Plan Current Medications Generic Name Dose Route Start Last Admin Trade Name Moiseq PRN Reason Stop Dose Admin Apixaban 2.5 mg 10/04/19 22:00 10/06/19 10:43 Eliquis - PO 2.5 mg BID [facility] Administration Carvedilol 25 mg 10/01/19 10:00 10/06/19 10:43 Coreg - PO 25 mg BID [facility] Administration Docusate Sodium 300 mg 10/01/19 22:00 10/05/19 21:52 Colace - PO 300 mg HS [facility] Administration Furosemide 60 mg 10/06/19 10:17 Lasix Injection - IVPUSH BIDLASIX [facility] Hydralazine HCl 10 mg 09/29/19 14:00 10/06/19 05:54 Apresoline - PO 10 mg TID [facility] Administration Insulin Aspart 1 vial 10/01/19 07:00 10/06/19 12:23 Novolog Vial Sliding Scale - SQ 2 units ACHS [facility] Administration Protocol Lactobacillus Acidophilus 1 tab 09/29/19 14:30 10/06/19 10:42 Bacid - PO 1 tab DAILY [facility] Administration Letrozole 2.5 mg 10/01/19 10:00 10/06/19 10:45 Femara - PO 2.5 mg DAILY [facility] Administration Levothyroxine Sodium 100 mcg 10/01/19 07:00 10/06/19 06:03 Synthroid - PO 100 mcg ACBK [facility] Administration Linezolid 600 mg 10/06/19 11:00 10/06/19 12:24 Zyvox (Restricted To Id) - PO 600 mg BID [facility] Administration Nitroglycerin 1 inch 10/03/19 14:26 10/06/19 12:32 Nitro-Bid 2% Paste - TD 1 inch Q6HPO [facility] Administration Pantoprazole Sodium 40 mg 10/01/19 10:00 10/06/19 10:43 Protonix - PO 40 mg DAILY [facility] Administration Polyethylene Glycol 17 gm 10/01/19 10:00 10/06/19 10:44 Miralax (For Daily Use) - PO Not Given BID [facility] Simethicone 80 mg 09/30/19 23:14 10/02/19 14:25 Mylicon - PO 80 mg Q4H PRN Administration GAS Impression 1. proteinuria 2. hypothyroid 3. HTN 4. DM 5. fluid overload 6. breast cancer 7. anemia 8. CKD 9. CHF 10. hyponatremia 11. hypokalemia Plan - decrease lasix to 60 bid - discussed with cardio - discussed with medical team - renal function worsening - pt does not want HD - will need to clarify GOC - check phos level - start sevelamer
--- NOTE | 2019-10-06 14:14 | PN ---
Progress Note (short form) - Note Progress Note: Chief Complaint: sob History of Present Illness: stable dyspnea. no cp, palps, dizziness Current Medications Generic Name Dose Route Start Last Admin Trade Name Meena PRN Reason Stop Dose Admin Apixaban 2.5 mg 10/04/19 22:00 10/06/19 10:43 Eliquis - PO 2.5 mg BID [facility] Administration Carvedilol 25 mg 10/01/19 10:00 10/06/19 10:43 Coreg - PO 25 mg BID [facility] Administration Docusate Sodium 300 mg 10/01/19 22:00 10/05/19 21:52 Colace - PO 300 mg HS [facility] Administration Furosemide 60 mg 10/06/19 10:17 Lasix Injection - IVPUSH BIDLASIX [facility] Hydralazine HCl 10 mg 09/29/19 14:00 10/06/19 05:54 Apresoline - PO 10 mg TID [facility] Administration Insulin Aspart 1 vial 10/01/19 07:00 10/06/19 12:23 Novolog Vial Sliding Scale - SQ 2 units ACHS [facility] Administration Protocol Lactobacillus Acidophilus 1 tab 09/29/19 14:30 10/06/19 10:42 Bacid - PO 1 tab DAILY [facility] Administration Letrozole 2.5 mg 10/01/19 10:00 10/06/19 10:45 Femara - PO 2.5 mg DAILY [facility] Administration Levothyroxine Sodium 100 mcg 10/01/19 07:00 10/06/19 06:03 Synthroid - PO 100 mcg ACBK [facility] Administration Linezolid 600 mg 10/06/19 11:00 10/06/19 12:24 Zyvox (Restricted To Id) - PO 600 mg BID [facility] Administration Nitroglycerin 1 inch 10/03/19 14:26 10/06/19 12:32 Nitro-Bid 2% Paste - TD 1 inch Q6HPO [facility] Administration Pantoprazole Sodium 40 mg 10/01/19 10:00 10/06/19 10:43 Protonix - PO 40 mg DAILY [facility] Administration Polyethylene Glycol 17 gm 10/01/19 10:00 10/06/19 10:44 Miralax (For Daily Use) - PO Not Given BID [facility] Sevelamer Carbonate 800 mg 10/06/19 17:30 Renvela - PO TIDCM [facility] Simethicone 80 mg 09/30/19 23:14 10/02/19 14:25 Mylicon - PO 80 mg Q4H PRN Administration GAS Vital Signs Period Temp Pulse Resp BP Sys/Hernandez Pulse Ox Last 24 Hr 97 F-98.6 F 92-100 20- 105-132/43-67 97-99 Constitutional: Yes: No Distress, Calm Eyes: No: Sclera Icterus HENT: No: Nasal Congestion Cardiovascular: Yes: Pulse Irregular, JVD, S1, S2, Other (PMI non diplaced). No: Gallop, Murmur Respiratory: Yes: Regular, CTA Bilaterally. No: Accessory Muscle Use Gastrointestinal: Yes: Normal Bowel Sounds, Soft. No: Tenderness Extremities: No: Cold, Cyanosis Edema: Yes (trace) Integumentary: No: Jaundice Neurological: Yes: Alert, Oriented (x3) Psychiatric: No: Agitated Assessment/Plan echo 03/2019 nl LV function, mild MR, mild TR, PASP at least 49 mmHg echo 09/2019 nl LV function, RV borderline size and function, severely dilated atria, severe MAC, mod to severe TR, severe pulm HTN, possible small effusion IMP/REC: Acute diastolic heart failure exacerbation: - recent echo nl LV function - no signs acs - no reliable wts trend here - continue lasix, holding aldactone - BUN/cr rising, Na stable. lasix reduced to 60 mg IV BID, d/w renal - per d/w dr georges it is likely her renal fxn will not improve with effective diuresis - refused dialysis - cont nitrates for cardiorenal syndrome - palliative care is following, considering hospice HTN: - bp stable - cont current meds crow on CKD: - Baseline creat from last admission is 2-2.5, elevated now, likely cardiorenal - renal following PAF: -cont coreg for rate control -cont eliquis low dose (age, creatinine) liver mass: -heme/onc following anemia: -hgb 7s, stable -? sec to CKD -per primary team, heme-onc
[2019-10-06] MEDS: LORATADINE 10 MG TABLET PO SCH (14:38)
--- NOTE | 2019-10-06 16:40 | PN ---
Physical Exam: SUBJECTIVE: Patient seen and examined bedside. No acute events overnight. Patient complaining of back pain but says it's tolerable at the moment. OBJECTIVE: Vital Signs Period Temp Pulse Resp BP Sys/Hernandez Pulse Ox Last 24 Hr 97 F-98.7 F 92-101 -20 105-132/43-67 97-99 GENERAL: The patient is awake, alert, in no acute distress. LUNGS: Breath sounds equal, clear to auscultation bilaterally, on 2L NC HEART: Regular rate and rhythm, S1, S2 ABDOMEN: Soft, nontender, nondistended EXTREMITIES: BL LE edema Laboratory Results - last 24 hr Laboratory Last Values WBC 15.3 K/mm3 (4.0-10.0) H 10/06/19 09:05 RBC 2.58 M/mm3 (3.60-5.2) L 10/06/19 09:05 Hgb 7.7 GM/dL (10.7-15.3) L 10/06/19 09:05 Hct 24.7 % (32.4-45.2) L 10/06/19 09:05 MCV 95.6 fl (80-96) 10/06/19 09:05 MCH 29.9 pg (25.7-33.7) 10/06/19 09:05 MCHC 31.3 g/dl (32.0-36.0) L 10/06/19 09:05 RDW 20.6 % (11.6-15.6) H 10/06/19 09:05 Plt Count 95 K/MM3 (134-434) L 10/06/19 09:05 MPV 9.1 fl (7.5-11.1) 10/06/19 09:05 Absolute Neuts (auto) 10.7 K/mm3 (1.5-8.0) H 10/05/19 06:15 Total Counted 100 09/25/19 05:51 Neutrophils % 69.5 % (42.8-82.8) 10/05/19 06:15 Neutrophils % (Manual) 62.7 % (42.8-82.8) 10/05/19 06:15 Band Neutrophils % 1.0 % 10/05/19 06:15 Lymphocytes % 8.9 % (8-40) 10/05/19 06:15 Lymphocytes % (Manual) 11.8 % (8-40) 10/05/19 06:15 Monocytes % 10.2 % (3.8-10.2) 10/05/19 06:15 Monocytes % (Manual) 6 % (3.8-10.2) 10/05/19 06:15 Eosinophils % 10.4 % (0-4.5) H 10/05/19 06:15 Eosinophils % (Manual) 15.7 % (0-4.5) H 10/05/19 06:15 Basophils % 1.0 % (0-2.0) 10/05/19 06:15 Basophils % (Manual) 1.0 % (0-2.0) D 10/05/19 06:15 Myelocytes % (Man) 2 % (0-2) 10/05/19 06:15 Promyelocytes % (Man) 0 % (0-2) 10/05/19 06:15 Blast Cells % (Manual) 0 % (0-0) 10/05/19 06:15 Nucleated RBC % 0 % (0-0) 10/05/19 06:15 Metamyelocytes 0 % (0-2) D 10/05/19 06:15 Hypochromia 0 10/05/19 06:15 Platelet Estimate Decreased 10/05/19 06:15 Platelet Comment No clumping noted 09/24/19 16:49 Polychromasia 1+ 10/05/19 06:15 Poikilocytosis 0 10/05/19 06:15 Basophilic Stippling 1+ 10/02/19 07:10 Anisocytosis 2+ 10/05/19 06:15 Microcytosis 2+ 10/05/19 06:15 Macrocytosis 0 10/05/19 06:15 Spherocytes 1+ 10/01/19 08:18 Target Cells 2+ 09/30/19 08:06 Tear Drop Cells 1+ 10/01/19 08:18 Ovalocytes 1+ 09/28/19 05:22 Stomatocytes 1+ 10/01/19 08:18 Fragmented RBCs 1+ 10/01/19 08:18 PT with INR 18.90 SEC (9.7-13.0) H 10/01/19 08:18 INR 1.59 (0.83-1.09) H 10/01/19 08:18 PTT (Actin FS) 30.4 SECONDS (25.2-36.5) 09/24/19 16:49 Sodium 135 mmol/L (136-145) L 10/06/19 09:05 Potassium 4.1 mmol/L (3.5-5.1) 10/06/19 09:05 Chloride 98 mmol/L (98-107) 10/06/19 09:05 Carbon Dioxide 23 mmol/L (21-32) 10/06/19 09:05 Anion Gap 14 MMOL/L (8-16) 10/06/19 09:05 BUN 127.0 mg/dL (7-18) H* 10/06/19 09:05 Creatinine 3.6 mg/dL (0.55-1.3) H 10/06/19 09:05 Est GFR (CKD-EPI)AfAm 12.29 10/06/19 09:05 Est GFR (CKD-EPI)NonAf 10.61 10/06/19 09:05 POC Glucometer 168 UNITS (80-120) 10/06/19 12:13 Random Glucose 159 mg/dL (74-106) H 10/06/19 09:05 Serum Osmolality 305 mosm/kg (278-305) 09/26/19 05:52 Lactic Acid 1.0 mmol/L (0.4-2.0) 09/24/19 19:10 Calcium 8.0 mg/dL (8.5-10.1) L 10/06/19 09:05 Phosphorus 6.0 mg/dL (2.5-4.9) H 10/04/19 07:18 Magnesium 2.3 mg/dL (1.8-2.4) 10/04/19 07:18 Iron 31 ug/dL (50-175) L 09/26/19 19:40 TIBC 202 ug/dL (250-450) L 09/26/19 19:40 Iron Saturation 15 % (17.5-39) L 09/26/19 19:40 Unsaturated IBC 171 ug/dL (200-275) L 09/26/19 19:40 Ferritin 986.2 ng/ml (8-388) H 09/26/19 19:40 Total Bilirubin 0.7 mg/dL (0.2-1) 09/29/19 05:52 AST 17 U/L (15-37) 09/29/19 05:52 ALT 15 U/L (13-61) 09/29/19 05:52 Alkaline Phosphatase 375 U/L (45-117) H 09/29/19 05:52 Troponin I < 0.02 ng/ml (0.00-0.05) 09/24/19 16:49 B-Natriuretic Peptide 87787.9 pg/ml (5-450) H 09/24/19 16:49 Total Protein 6.7 g/dl (6.4-8.2) 09/29/19 05:52 Albumin 2.3 g/dl (3.4-5.0) L 09/29/19 05:52 Carcinoembryonic Ag 6.4 ng/mL (0.0-4.7) H 10/02/19 07:10 CA 27-29 75 U/mL (0.0-38.6) H 10/02/19 07:10 Urine Color Yellow 09/24/19 20:45 Urine Appearance Turbid 09/24/19 20:45 Urine pH 5.5 (5.0-8.0) 09/24/19 20:45 Ur Specific [place] 1.015 (1.010-1.035) 09/24/19 20:45 Urine Protein 3+ (NEGATIVE) H 09/24/19 20:45 Urine Glucose (UA) Negative (NEGATIVE) 09/24/19 20:45 Urine Ketones Negative (NEGATIVE) 09/24/19 20:45 Urine Blood Negative (NEGATIVE) 09/24/19 20:45 Urine Nitrite Negative (NEGATIVE) 09/24/19 20:45 Urine Bilirubin Negative (NEGATIVE) 09/24/19 20:45 Urine Urobilinogen 0.2 mg/dL (0.2-1.0) 09/24/19 20:45 Ur Leukocyte Esterase 2+ (NEGATIVE) H 09/24/19 20:45 Urine WBC (Auto) 1325 /uL (0-25.8) 09/24/19 20:45 Urine RBC (Auto) 25 /uL (0-23.9) 09/24/19 20:45 Urine Casts (Auto) 1 /uL (0-3.1) 09/24/19 20:45 U Epithel Cells (Auto) 6 /uL (0-25.1) 06/19/20 20:45 Urine Bacteria (Auto) >10,000 /uL (0-1359) 09/24/19 20:45 Urine Osmolality 287 mosm/kg (300-900) L 09/25/19 12:15 Ur Random Sodium 38 MMOL/L (40-220) L 09/25/19 12:15 Stool Occult Blood Negative (NEGATIVE) 09/26/19 17:58 COVID-19 (TOYA) Not detected (Not Detected) 09/24/19 20:54 Anti-A Titer Cancelled 10/02/19 17:00 Blood Type Cancelled 10/02/19 17:00 Antibody Screen Cancelled 10/02/19 17:00 Crossmatch See Detail 10/02/19 16:35 Active Medications Generic Name Dose Route Start Last Admin Trade Name Meena PRN Reason Stop Dose Admin Apixaban 2.5 mg 10/04/19 22:00 10/06/19 10:43 Eliquis - PO 2.5 mg BID AMRIT Administration Carvedilol 25 mg 10/01/19 10:00 10/06/19 10:43 Coreg - PO 25 mg BID AMRIT Administration Docusate Sodium 300 mg 10/01/19 22:00 10/05/19 21:52 Colace - PO 300 mg HS AMRIT Administration Furosemide 60 mg 10/06/19 10:17 Lasix Injection - IVPUSH BIDLASIX AMRIT Hydralazine HCl 10 mg 09/29/19 14:00 10/06/19 05:54 Apresoline - PO 10 mg TID AMRIT Administration Insulin Aspart 1 vial 10/01/19 07:00 10/06/19 12:23 Novolog Vial Sliding Scale - SQ 2 units ACHS AMRIT Administration Protocol Lactobacillus Acidophilus 1 tab 09/29/19 14:30 10/06/19 10:42 Bacid - PO 1 tab DAILY AMRIT Administration Letrozole 2.5 mg 10/01/19 10:00 10/06/19 10:45 Femara - PO 2.5 mg DAILY AMRIT Administration Levothyroxine Sodium 100 mcg 10/01/19 07:00 10/06/19 06:03 Synthroid - PO 100 mcg ACBK AMRIT Administration Linezolid 600 mg 10/06/19 11:00 10/06/19 12:24 Zyvox (Restricted To Id) - PO 600 mg BID AMRIT Administration Nitroglycerin 1 inch 10/03/19 14:26 10/06/19 12:32 Nitro-Bid 2% Paste - TD 1 inch Q6HPO AMRIT Administration Pantoprazole Sodium 40 mg 10/01/19 10:00 10/06/19 10:43 Protonix - PO 40 mg DAILY AMRIT Administration Polyethylene Glycol 17 gm 10/01/19 10:00 10/06/19 10:44 Miralax (For Daily Use) - PO Not Given BID AMRIT Sevelamer Carbonate 800 mg 10/06/19 17:30 Renvela - PO TIDCM AMRIT Simethicone 80 mg 09/30/19 23:14 10/02/19 14:25 Mylicon - PO 80 mg Q4H PRN Administration GAS ASSESSMENT/PLAN: 89F yo female with pmhx of diastolic CHF, a-fib (on Eliquis), CKD, breast cancer s/p mastectomy, myelodysplasia, IDDM type 2, hypothyroidism, HLD, CVA, and GERD presents with b/l leg swelling and nausea for "weeks" and back pain for several days admitted for acute CHF exacerbation. #Acute on Chronic Diastolic CHF Exacerbation; -Daily weights, I/Os, 2gm Na diet w/ fluid restriction -Cardio consulted; currently on Lasix 80 BID IV -Cont O2 NC, currently on 2L intermittently -Repeat Echo (10/03) showed LV wnl, EF 55-60%, atria severely dilated, RV borderline in size and fxn, AV sclerotic, MV severe annular calcification, trace MR, mod to sev TR and sev pHTN, possible small pericardial effusion -F/u cardio recs #ESBL UTI; No urinary symptoms -UCx +ESBL Kleb pneumo; repeat UCx +Group D strep/enterococcus -Per ID, Ertapenem 500 mg QD completed today. Started on ZYVOX 600MG PO BID X 3D and maintain contact precautions #New 4 cm L Hepatic Lobe lesion; in setting of hx of breast cancer and myelodysplasia -Onc consulted- Dr. Sullivan spoke to pt at length last week, and pt agrees to have breast cancer markers (CA 27,29) and colon cancer markers (CEA) (last colonoscopy was about 1 year ago and negative, so less likely from colon) instead of liver biopsy at this time; if findings are from breast ca, adjustments can be made to hormonal therapy -Per palliative care, goal is to be more comfortable, hospice would be appropriate if patient and family are in agreement. Will add Dilaudid 0.5 mg IV q6h PRN fo rpain Cont home meds: Letrozole 2.5 QD #Stage 2 sacral ulcer; not infected -Santyl and bandage -Frequent turning and positioning -Dilaudid 0.5 mg Q6H PRN for pain #Hyponatremia; likely 2/2 fluid overload. Resolved. -2gm Na diet w/ fluid restriction -IV diuresis -Renal consulted #MAURICE on CKD; BUN/Cr worsening. (127 & 3.6) -Hold amlodipine, hydralazine to allow for pressure drop and prevent hypoperfusion from IV Lasix -serial BMPs to monitor Cr (baseline near 2) -Per renal, pt and family do not want HD #Anemia; likely multi-factorial in setting of CKD, myelodysplasia, r/o GI bleed. s/p 1 dose of IV Venofer -Hb 7.4 (was 8.3 s/p 3U pRBCs last admission 08/24); Fe 31, TIBC 202, Fe sat 15, Ferr 986.2 -During last admission, was seen by heme with recommendation for outpt workup -Tranfuse PRN to maintain Hgb >7 -FOBT neg #HTN; Stable. Cont home med: Carvedilol 25 BID. Per cardio, will cont rest of home meds when BP stable #Generalized abdominal pain; 2/2 constipation vs. liver mass -Miralax 17 gm BID for constipation -QTc 484, try to avoid Zofran for nausea/vomiting #Hypothyroidism; Cont home meds: Synthroid 100 #Prophylaxis DVT: Cont home Eliquis 2.5 BID- Team spoke to cardiology today regarding patient's kidney function and Eliquis, Cardiology recommended to maintain eliquis as is. GI: Cont home Protonix 40 FEN -Fluid restriction -monitor Na, Cl, and Cr -sodium/diabetic diet Dispo -cont to monitor on med-surg -Rediscussed GOC with patient today. Patient does not seem to be clear on prognosis if she does not opt to proceed with HD. Will rediscuss patient code status and HD decision tomorrow. Patient remains full code. -Palliative care discussed with patient goals of care. Pt would like to be comfortable and not do HD despite worsening kidney function. Hospice is appropriate for patient. Will discuss with patient and family regarding hospice care. Visit type - Emergency Visit Emergency Visit: Yes ED Registration Date: 09/24/19 Care time: The patient presented to the Emergency Department on the above date and was hospitalized for further evaluation of their emergent condition. - New Patient This patient is new to me today: Yes Date on this admission: 10/07/19 - Critical Care Critical Care patient: No - Discharge Referral Referred to [facility] Med [facility] No ATTENDING PHYSICIAN STATEMENT I saw and evaluated the patient. I reviewed the resident's note and discussed the case with the resident. I agree with the resident's findings and plan as documented. SUBJECTIVE: OBJECTIVE: ASSESSMENT AND PLAN:
[2019-10-06] MEDS ORDERED: INSULIN (NOVOLOG) ASPART 100 UNITS/ML 10ML VIAL ONE (16:51)
[2019-10-06] MEDS: SEVELAMER CARBONATE 800 MG TAB (FP) PO SCH (16:58)
--- NOTE | 2019-10-06 17:29 | PN ---
Teaching Attending Note Name of Resident: Kylah Denton ATTENDING PHYSICIAN STATEMENT I saw and evaluated the patient. I reviewed the resident's note and discussed the case with the resident. I agree with the resident's findings and plan as documented. SUBJECTIVE: Patient is confused on and off , comfortable with no acute distress. OBJECTIVE: Vital Signs Temperature 98.7 F 10/06/19 14:39 Pulse Rate 101 H 10/06/19 14:39 Respiratory Rate 20 10/06/19 14:39 Blood Pressure 112/57 L 10/06/19 14:39 O2 Sat by Pulse Oximetry (%) 99 10/06/19 09:00 PE: per resident's note Stage 2 decubitus ulcer CBCD WBC 15.3 K/mm3 (4.0-10.0) H 10/06/19 09:05 RBC 2.58 M/mm3 (3.60-5.2) L 10/06/19 09:05 Hgb 7.7 GM/dL (10.7-15.3) L 10/06/19 09:05 Hct 24.7 % (32.4-45.2) L 10/06/19 09:05 MCV 95.6 fl (80-96) 10/06/19 09:05 MCHC 31.3 g/dl (32.0-36.0) L 10/06/19 09:05 RDW 20.6 % (11.6-15.6) H 10/06/19 09:05 Plt Count 95 K/MM3 (134-434) L 10/06/19 09:05 MPV 9.1 fl (7.5-11.1) 10/06/19 09:05 CMP Sodium 135 mmol/L (136-145) L 10/06/19 09:05 Potassium 4.1 mmol/L (3.5-5.1) 10/06/19 09:05 Chloride 98 mmol/L (98-107) 10/06/19 09:05 Carbon Dioxide 23 mmol/L (21-32) 10/06/19 09:05 Anion Gap 14 MMOL/L (8-16) 10/06/19 09:05 BUN 127.0 mg/dL (7-18) H* 10/06/19 09:05 Creatinine 3.6 mg/dL (0.55-1.3) H 10/06/19 09:05 Random Glucose 159 mg/dL (74-106) H 10/06/19 09:05 Calcium 8.0 mg/dL (8.5-10.1) L 10/06/19 09:05 Total Bilirubin 0.7 mg/dL (0.2-1) 09/29/19 05:52 AST 17 U/L (15-37) 09/29/19 05:52 ALT 15 U/L (13-61) 09/29/19 05:52 Alkaline Phosphatase 375 U/L (45-117) H 09/29/19 05:52 Total Protein 6.7 g/dl (6.4-8.2) 09/29/19 05:52 Albumin 2.3 g/dl (3.4-5.0) L 09/29/19 05:52 CARDIAC ENZYMES Troponin I < 0.02 ng/ml (0.00-0.05) 09/24/19 16:49 Current Medications Generic Name Dose Route Start Last Admin Trade Name Moiseq PRN Reason Stop Dose Admin Apixaban 2.5 mg 10/04/19 22:00 10/06/19 10:43 Eliquis - PO 2.5 mg BID AMRIT Administration Carvedilol 25 mg 10/01/19 10:00 10/06/19 10:43 Coreg - PO 25 mg BID AMRIT Administration Docusate Sodium 300 mg 10/01/19 22:00 10/05/19 21:52 Colace - PO 300 mg HS AMRIT Administration Furosemide 60 mg 10/06/19 10:17 10/06/19 16:47 Lasix Injection - IVPUSH 60 mg BIDLASIX AMRIT Administration Hydralazine HCl 10 mg 09/29/19 14:00 10/06/19 16:55 Apresoline - PO 10 mg TID AMRIT Administration Insulin Aspart 1 vial 10/01/19 07:00 10/06/19 16:57 Novolog Vial Sliding Scale - SQ 4 units ACHS AMRIT Administration Protocol Lactobacillus Acidophilus 1 tab 09/29/19 14:30 10/06/19 10:42 Bacid - PO 1 tab DAILY AMRTI Administration Letrozole 2.5 mg 10/01/19 10:00 10/06/19 10:45 Femara - PO 2.5 mg DAILY AMRIT Administration Levothyroxine Sodium 100 mcg 10/01/19 07:00 10/06/19 06:03 Synthroid - PO 100 mcg ACBK AMRIT Administration Linezolid 600 mg 10/06/19 11:00 10/06/19 12:24 Zyvox (Restricted To Id) - PO 600 mg BID AMRIT Administration Nitroglycerin 1 inch 10/03/19 14:26 10/06/19 12:32 Nitro-Bid 2% Paste - TD 1 inch Q6HPO AMRIT Administration Pantoprazole Sodium 40 mg 10/01/19 10:00 10/06/19 10:43 Protonix - PO 40 mg DAILY AMRIT Administration Polyethylene Glycol 17 gm 10/01/19 10:00 10/06/19 10:44 Miralax (For Daily Use) - PO Not Given BID AMRIT Sevelamer Carbonate 800 mg 10/06/19 17:30 10/06/19 16:58 Renvela - PO 800 mg TIDCM AMRIT Administration Simethicone 80 mg 09/30/19 23:14 10/02/19 14:25 Mylicon - PO 80 mg Q4H PRN Administration GAS Home Medications Medication Instructions Recorded Calcium Carbonate/Vitamin D3 1 each PO BID 06/23/18 [Calcium 500-Vit D3 400 Tablet] Carvedilol [Coreg -] 25 mg PO BID 06/23/18 Polyethylene Glycol 3350 [Miralax 17 gm PO DAILY PRN bottle 04/27/19 119 gm Btl -] Amlodipine Besylate [Norvasc -] 5 mg PO DAILY 08/12/19 Apixaban [Eliquis] 2.5 mg PO BID 08/12/19 Furosemide [Lasix -] 80 mg PO BID 08/12/19 Isosorbide Mononitrate [Imdur -] 60 mg PO DAILY 08/12/19 Sitagliptin Phosphate [Januvia] 25 mg PO DAILY 08/12/19 hydrALAZINE HCL [Apresoline -] 10 mg PO TID 08/12/19 Insulin Glargine,Hum.rec.anlog 25 unit SQ DAILY 09/24/19 [Lantus] Insulin Lispro [Humalog] 100 unit SQ PRN 09/24/19 Letrozole [Femara] 2.5 mg PO DAILY 09/24/19 Omeprazole 20 mg PO DAILY 09/24/19 Pantoprazole Sodium [Protonix] 40 mg PO DAILY 09/24/19 Simethicone 125 mg PO Q4H PRN 09/24/19 Multivitamin [One-Daily 1 each PO DAILY 09/25/19 Multi-Vitamin] Ondansetron [Zofran -] 4 mg PO Q4H PRN 09/25/19 Oxycodone HCl/Acetaminophen 1 tab PO Q12H PRN 09/25/19 [Percocet 5-325 mg Tablet] Diclofenac Sodium 2 gm TP DAILY 09/26/19 Isosorbide Mononitrate [Isosorbide 60 mg PO DAILY 10/06/19 Mononitrate ER] Tramadol HCl 1 tab TID 10/06/19 Microbiology 10/03/19 09:21 Urine - Urine Clean Catch Urine Culture - Final Vr Ec Faecium 09/24/19 20:45 Urine - Urine Clean Catch Urine Culture - Final Klebsiella Pneumoniae - Esbl ECHO: severe annular calcifications , trace MR, moderate to severe TR, severe Pulmonary HTn >60mmhg , pericardium :fat pAd, possible small effusion ASSESSMENT AND PLAN: This patient is a 89yof with PMhx of diastolic CHF, a-fib (on Eliquis), CKD, breast cancer s/p mastectomy, myelodysplasia, IDDM type 2, hypothyroidism, HLD, CVA, and GERD who was admitted for acute D CHF exacerbation #Acute on chronic diastolic heart failure : reduced the dose of lasix form 80mg to 60mg due to worsening renal failure, metolazone prn #ESBL producing Klebsiealla complicated UTI/pyelonephritis : s/p Ertapenem 500mg renally dosed day #9 , now on Linozilide as per iD #MAURICE on CKD : nephro on the case, continue to monitor #Liver mass : Bx Deferred , follow tumor markers , bone scan #Retroperitoneal LAP #B/L adrenal nodules # Hx of MDS #Chronic normocytic anemia #prolonged QTC: 484 will repeat ekg #high AG metabolic acidosis :resolved # Hx of A fib on Eliquis continue 2.5mg , on Coreg continue #Stage 2 R gluteal decubitus ulcer : frequent turning. patient can't turn due to back pain. she declined after repositioned. air mattress DVT Px: Eliquis
[2019-10-06] MEDS: DOCUSATE SODIUM 100 MG CAPSULE (FP) PO SCH (21:11)
[2019-10-07] MEDS: NITROGLYCERIN 2% OINTMENT - 1GM PACKET TD SCH ×3 (00:20→12:32)
[2019-10-07] MEDS: FUROSEMIDE 40 MG/4 ML INJECTABLE VIAL IVPUSH SCH ×2 (06:35→16:44)
[2019-10-07] MEDS: LEVOTHYROXINE NA 100 MCG TABLET (FP) PO SCH (06:35)
[2019-10-07] MEDS: hydrALAZINE HCL 10 MG TABLET PO SCH ×3 (06:36→22:04)
[2019-10-07] MEDS: INSULIN SLIDING SCALE (NOVOLOG) 1 VIAL SQ SCH ×4 (06:36→22:13)
[2019-10-07 08:03] LABS: HEMATOCRIT 24.1 % (32.4-45.2); HEMOGLOBIN 7.5 GM/dL (10.7-15.3); MCH 29.5 pg (25.7-33.7); MCHC 31.2 g/dl (32.0-36.0); MEAN CELL VOLUME 94.5 fl (80-96); MEAN PLT VOLUME 9.4 fl (7.5-11.1); PLATELET COUNT 97 K/MM3 (134-434); RBC 2.55 M/mm3 (3.60-5.2); RDW 20.7 % (11.6-15.6)
[2019-10-07 08:21] LABS: CALCIUM 7.5 mg/dL (8.5-10.1); CREATININE 3.6 mg/dL (0.55-1.3); MAGNESIUM 2.3 mg/dL (1.8-2.4); PHOSPHOROUS 6.3 mg/dL (2.5-4.9)
[2019-10-07 08:56] LABS: BLOOD UREA NITROGEN 130.7 mg/dL (7-18)
--- NOTE | 2019-10-07 11:41 | PN ---
Progress Note (short form) - Note Progress Note: Chief Complaint: sob History of Present Illness: no sob, le edema better, no cp, no palps Current Medications Generic Name Dose Route Start Last Admin Trade Name Meena PRN Reason Stop Dose Admin Apixaban 2.5 mg 10/04/19 22:00 10/06/19 21:11 Eliquis - PO 2.5 mg BID AMRIT Administration Carvedilol 25 mg 10/01/19 10:00 10/06/19 21:11 Coreg - PO 25 mg BID AMRIT Administration Docusate Sodium 300 mg 10/01/19 22:00 10/06/19 21:11 Colace - PO 300 mg HS AMRIT Administration Furosemide 60 mg 10/06/19 10:17 10/07/19 06:35 Lasix Injection - IVPUSH 60 mg BIDLASIX AMRIT Administration Hydralazine HCl 10 mg 09/29/19 14:00 10/07/19 06:36 Apresoline - PO 10 mg TID AMRIT Administration Insulin Aspart 1 vial 10/01/19 07:00 10/07/19 06:36 Novolog Vial Sliding Scale - SQ 2 units ACHS AMRIT Administration Protocol Lactobacillus Acidophilus 1 tab 09/29/19 14:30 10/06/19 10:42 Bacid - PO 1 tab DAILY AMRIT Administration Letrozole 2.5 mg 10/01/19 10:00 10/06/19 10:45 Femara - PO 2.5 mg DAILY AMRIT Administration Levothyroxine Sodium 100 mcg 10/01/19 07:00 10/07/19 06:35 Synthroid - PO 100 mcg ACBK AMRIT Administration Linezolid 600 mg 10/06/19 11:00 10/06/19 21:12 Zyvox (Restricted To Id) - PO 600 mg BID AMRIT Administration Nitroglycerin 1 inch 10/03/19 14:26 10/07/19 06:36 Nitro-Bid 2% Paste - TD Not Given Q6HPO AMRIT Pantoprazole Sodium 40 mg 10/01/19 10:00 10/06/19 10:43 Protonix - PO 40 mg DAILY AMRIT Administration Polyethylene Glycol 17 gm 10/01/19 10:00 10/06/19 21:11 Miralax (For Daily Use) - PO Not Given BID AMRIT Sevelamer Carbonate 800 mg 10/06/19 17:30 10/06/19 16:58 Renvela - PO 800 mg TIDCM AMRIT Administration Vital Signs Period Temp Pulse Resp BP Sys/Hernandez Pulse Ox Last 24 Hr 97.5 F-98.7 F 65-101 20-20 100-126/43-80 99 Constitutional: Yes: No Distress, Calm Eyes: No: Sclera Icterus HENT: No: Nasal Congestion Cardiovascular: Yes: Pulse Irregular, JVD, S1, S2, Other (PMI non diplaced). No: Gallop, Murmur Respiratory: Yes: Regular, CTA Bilaterally. No: Accessory Muscle Use Gastrointestinal: Yes: Normal Bowel Sounds, Soft. No: Tenderness Extremities: No: Cold, Cyanosis Edema: Yes (trace) Integumentary: No: Jaundice Neurological: Yes: Alert, Oriented (x3) Psychiatric: No: Agitated Labs: CBC, BMP 10/07/19 06:35 10/07/19 06:35 Assessment/Plan echo 03/2019 nl LV function, mild MR, mild TR, PASP at least 49 mmHg IMP/REC: Acute diastolic heart failure exacerbation: - recent echo nl LV function - no signs acs - no reliable wts trend here - continue lasix, holding aldactone - BUN/cr rising, Na stable. lasix reduced to 60 mg IV BID, d/w renal - per d/w dr georges it is likely her renal fxn will not improve with effective diuresis - refused dialysis - cont nitrates for cardiorenal syndrome - palliative care is following, considering hospice HTN: - bp stable - cont current meds crow on CKD: - Baseline creat from last admission is 2-2.5, elevated now, likely cardiorenal - renal following PAF: -cont coreg for rate control -cont eliquis low dose (age, creatinine) liver mass: -heme/onc following anemia: -hgb 7s, stable -? sec to CKD -per primary team, heme-onc
[2019-10-07] MEDS: SEVELAMER CARBONATE 800 MG TAB (FP) PO SCH ×3 (12:31→17:35)
[2019-10-07] MEDS: CARVEDILOL 25 MG TABLET (FP) PO SCH ×2 (12:31→22:03)
[2019-10-07] MEDS: APIXABAN 2.5 MG TABLET PO SCH ×2 (12:32→22:04)
[2019-10-07] MEDS: LACTOBACILLUS ACIDOPHILUS 1 TABLET PO SCH (12:32)
[2019-10-07] MEDS: PANTOPRAZOLE 40 MG TABLET PO SCH (12:32)
[2019-10-07] MEDS: POLYETHYLENE GLYCOL 3350 119 GM BTL PO SCH ×2 (12:32→22:59)
[2019-10-07] MEDS: LETROZOLE 2.5 MG TABLET (FP) PO SCH (12:32)
[2019-10-07] MEDS: LINEZOLID 600 MG TABLET (RESTRICTED TO ID) PO SCH ×2 (12:32→22:04)
[2019-10-07] MEDS ORDERED: INSULIN (NOVOLOG) ASPART 100 UNITS/ML 10ML VIAL ONE (12:53)
--- NOTE | 2019-10-07 13:10 | PN ---
<Gissel Moreau - Last Filed: 10/11/19 18:37> ATTENDING PHYSICIAN STATEMENT I saw and evaluated the patient. I reviewed the resident's note and discussed the case with the resident. I agree with the resident's findings and plan as documented. SUBJECTIVE: OBJECTIVE: ASSESSMENT AND PLAN: <Kylah Denton - Last Filed: 10/16/19 15:08> Physical Exam: SUBJECTIVE: Patient seen and examined bedside. Patient in no acute distress. No acute events overnight. OBJECTIVE: Vital Signs Vital Signs Temperature 97.5 F L 10/06/19 18:00 Pulse Rate 65 10/07/19 06:32 Respiratory Rate 20 10/06/19 22:00 Blood Pressure 109/43 L 10/07/19 06:32 O2 Sat by Pulse Oximetry (%) 99 10/06/19 21:00 GENERAL: The patient is awake, alert. HEAD: Normal with no signs of trauma. LUNGS: Breath sounds equal, clear to auscultation bilaterally, on 2L NC HEART: Regular rate and rhythm, S1, S2 ABDOMEN: Soft, nontender, nondistended EXTREMITIES: BL LE edema SKIN: erythema on arms, upper thighs, abdomen. Laboratory Results - last 24 hr 10/07/19 10/07/19 10/07/19 06:35 06:35 12:36 WBC 15.0 H RBC 2.55 L Hgb 7.5 L Hct 24.1 L MCV 94.5 MCH 29.5 MCHC 31.2 L RDW 20.7 H Plt Count 97 L MPV 9.4 Sodium 136 Potassium 4.0 Chloride 99 Carbon Dioxide 22 Anion Gap 15 BUN 130.7 H* Creatinine 3.6 H Est GFR (CKD-EPI)AfAm 12.29 Est GFR (CKD-EPI)NonAf 10.61 POC Glucometer 166 Random Glucose 176 H Calcium 7.5 L Phosphorus 6.3 H Magnesium 2.3 Active Medications Generic Name Dose Route Start Last Admin Trade Name Freq PRN Reason Stop Dose Admin Apixaban 2.5 mg 10/04/19 22:00 10/06/19 21:11 Eliquis - PO 2.5 mg BID [facility] Administration Carvedilol 25 mg 10/01/19 10:00 10/06/19 21:11 Coreg - PO 25 mg BID [facility] Administration Docusate Sodium 300 mg 10/01/19 22:00 10/06/19 21:11 Colace - PO 300 mg HS [facility] Administration Furosemide 60 mg 10/06/19 10:17 10/07/19 06:35 Lasix Injection - IVPUSH 60 mg BIDLASIX [facility] Administration Hydralazine HCl 10 mg 09/29/19 14:00 10/07/19 06:36 Apresoline - PO 10 mg TID [facility] Administration Insulin Aspart 1 vial 10/01/19 07:00 10/07/19 06:36 Novolog Vial Sliding Scale - SQ 2 units ACHS [facility] Administration Protocol Lactobacillus Acidophilus 1 tab 09/29/19 14:30 10/06/19 10:42 Bacid - PO 1 tab DAILY [facility] Administration Letrozole 2.5 mg 10/01/19 10:00 10/06/19 10:45 Femara - PO 2.5 mg DAILY [facility] Administration Levothyroxine Sodium 100 mcg 10/01/19 07:00 10/07/19 06:35 Synthroid - PO 100 mcg ACBK [facility] Administration Linezolid 600 mg 10/06/19 11:00 10/06/19 21:12 Zyvox (Restricted To Id) - PO 600 mg BID [facility] Administration Nitroglycerin 1 inch 10/03/19 14:26 10/07/19 06:36 Nitro-Bid 2% Paste - TD Not Given Q6HPO [facility] Pantoprazole Sodium 40 mg 10/01/19 10:00 10/06/19 10:43 Protonix - PO 40 mg DAILY [facility] Administration Polyethylene Glycol 17 gm 10/01/19 10:00 10/06/19 21:11 Miralax (For Daily Use) - PO Not Given BID [facility]I Sevelamer Carbonate 800 mg 10/06/19 17:30 10/06/19 16:58 Renvela - PO 800 mg TIDCM [facility] Administration ASSESSMENT/PLAN: 89F yo female with pmhx of diastolic CHF, a-fib (on Eliquis), CKD, breast cancer s/p mastectomy, myelodysplasia, IDDM type 2, hypothyroidism, HLD, CVA, and GERD presents with b/l leg swelling and nausea for "weeks" and back pain for several days admitted for acute CHF exacerbation. Acute on Chronic Diastolic CHF Exacerbation; -Daily weights, I/Os, 2gm Na diet w/ fluid restriction -Cardio consulted; currently on Lasix 80 BID IV -Cont O2 NC, currently on 2L intermittently -Repeat Echo (10/03) showed LV wnl, EF 55-60%, atria severely dilated, RV borderline in size and fxn, AV sclerotic, MV severe annular calcification, trace MR, mod to sev TR and sev pHTN, possible small pericardial effusion -F/u cardio recs ESBL UTI; No urinary symptoms -UCx +ESBL Kleb pneumo; repeat UCx +Group D strep/enterococcus -Per ID, Ertapenem 500 mg QD completed today. Started on ZYVOX 600MG PO BID X 3D and maintain contact precautions New 4 cm L Hepatic Lobe lesion; in setting of hx of breast cancer and myelodysplasia -Onc consulted- Dr. Sullivan spoke to pt at length last week, and pt agrees to have breast cancer markers (CA 27,29) and colon cancer markers (CEA) (last colonoscopy was about 1 year ago and negative, so less likely from colon) instead of liver biopsy at this time; if findings are from breast ca, adjustments can be made to hormonal therapy -Per palliative care, goal is to be more comfortable, hospice would be appropriate if patient and family are in agreement. Will add Dilaudid 0.5 mg IV q6h PRN fo rpain Cont home meds: Letrozole 2.5 QD Stage 2 sacral ulcer; not infected -Santyl and bandage -Frequent turning and positioning -Dilaudid 0.5 mg Q6H PRN for pain Hyponatremia; likely 2/2 fluid overload. Resolved. -2gm Na diet w/ fluid restriction -IV diuresis -Renal consulted MAURICE on CKD; BUN/Cr worsening. (136 & 3.6) -Hold amlodipine, hydralazine to allow for pressure drop and prevent hypoperfusion from IV Lasix -serial BMPs to monitor Cr (baseline near 2) -Monitoring Phosphorus, currently 6.3, (5.0 on admission) -Per renal, pt and family do not want HD Anemia; likely multi-factorial in setting of CKD, myelodysplasia, r/o GI bleed. s/p 1 dose of IV Venofer -Hb 7.5 today from 7.7 yesterday continue to monitor. -During last admission, was seen by heme with recommendation for outpt workup -Transfuse PRN to maintain Hgb >7 -FOBT neg HTN; Stable. Cont home med: Carvedilol 25 BID. Per cardio, will cont rest of home meds when BP stable Generalized abdominal pain; 2/2 constipation vs. liver mass -Miralax 17 gm BID for constipation -QTc 484, try to avoid Zofran for nausea/vomiting Hypothyroidism; Cont home meds: Synthroid 100 Prophylaxis DVT: Cont home Eliquis 2.5 BID - Team spoke to cardiology on regarding patient's kidney function and Eliquis, Cardiology recommended to maintain eliquis as is. GI: Cont home Protonix 40 FEN -Fluid restriction -monitor Na, Cl, and Cr -sodium/diabetic diet Dispo -cont to monitor on med-surg -Rediscussed GOC with patient yesterday and her goals are not clear to team. Spoke to palliative today, recommended formal psych eval for competency. Patient will be reevaluated with Palliative care after psych eval. - FULL CODE Visit type - Emergency Visit Emergency Visit: Yes ED Registration Date: 09/24/19 Care time: The patient presented to the Emergency Department on the above date and was hospitalized for further evaluation of their emergent condition. - New Patient This patient is new to me today: No - Critical Care Critical Care patient: No - Discharge Referral Referred to [facility] Med P.C[facility] No ATTENDING PHYSICIAN STATEMENT I saw and evaluated the patient. I reviewed the resident's note and discussed the case with the resident. I agree with the resident's findings and plan as documented. SUBJECTIVE: OBJECTIVE: ASSESSMENT AND PLAN:
--- NOTE | 2019-10-07 17:01 | CON.PSY ---
Psychiatry Consult Chief Complaint: 89 Year old female admitted with CHF, has a history of HTN. Patient seen for Psych eval for Capacity.. apparantly refusing Dialysis.. No history of Psych illness. Symptoms: reports: Irritability - Previous Psychiatric Treatment Outpatient: None Inpatient: None - Previous Substance Abuse Treatment Outpatient: None Inpatient: None - Current Medications Current Medications: Active Medications Apixaban (Eliquis -) 2.5 mg PO BID [facility] Last Admin: 10/07/19 12:32 Dose: 2.5 mg Documented by: Carvedilol (Coreg -) 25 mg PO BID [facility] Last Admin: 10/07/19 12:31 Dose: 25 mg Documented by: Docusate Sodium (Colace -) 300 mg PO HS [facility] Last Admin: 10/06/19 21:11 Dose: 300 mg Documented by: Furosemide (Lasix Injection -) 60 mg IVPUSH BIDLASIX [facility] Last Admin: 10/07/19 16:44 Dose: 60 mg Documented by: Hydralazine HCl (Apresoline -) 10 mg PO TID [facility] Last Admin: 10/07/19 16:46 Dose: 10 mg Documented by: Insulin Aspart (Novolog Vial Sliding Scale -) 1 vial SQ ACHS [facility]; Protocol Last Admin: 10/07/19 16:46 Dose: 2 units Documented by: Lactobacillus Acidophilus (Bacid -) 1 tab PO DAILY [facility] Last Admin: 10/07/19 12:32 Dose: 1 tab Documented by: Letrozole (Femara -) 2.5 mg PO DAILY [facility] Last Admin: 10/07/19 12:32 Dose: 2.5 mg Documented by: Levothyroxine Sodium (Synthroid -) 100 mcg PO ACBK [facility] Last Admin: 10/07/19 06:35 Dose: 100 mcg Documented by: Linezolid (Zyvox (Restricted To Id) -) 600 mg PO BID [facility] Last Admin: 10/07/19 12:32 Dose: 600 mg Documented by: Nitroglycerin (Nitro-Bid 2% Paste -) 1 inch TD Q6HPO [facility] Last Admin: 10/07/19 12:32 Dose: Not Given Documented by: Pantoprazole Sodium (Protonix -) 40 mg PO DAILY [facility] Last Admin: 10/07/19 12:32 Dose: 40 mg Documented by: Polyethylene Glycol (Miralax (For Daily Use) -) 17 gm PO BID [facility] Last Admin: 10/07/19 12:32 Dose: Not Given Documented by: Sevelamer Carbonate (Renvela -) 800 mg PO TIDCM [facility] Last Admin: 10/07/19 12:31 Dose: 800 mg Documented by: - Allergies Allergies: Allergies Allergy/AdvReac Type Severity Reaction Status Date / Time NSAIDS (Non-Steroidal Allergy Severe Difficulty Verified 04/08/19 22:55 Anti-Inflamma Breathing ibuprofen Allergy Intermediate Rash Verified 04/08/19 22:55 meloxicam [From Mobic] Allergy Intermediate Rash Verified 04/08/19 22:55 rosiglitazone maleate Allergy Verified 04/08/19 22:55 [From Avandia] albuterol AdvReac Intermediate Elevated Verified 04/08/19 22:55 Blood Pressure epinephrine AdvReac Intermediate Elevated Verified 04/08/19 22:55 Blood Pressure oxycodone HCl [From Percodan] AdvReac Intermediate Elevated Verified 04/08/19 22:55 Blood Pressure oxycodone terephthalate AdvReac Intermediate Elevated Verified 04/08/19 22:55 [From Percodan] Blood Pressure flu shot AdvReac Severe [place] Uncoded 04/08/19 22:55 BARRE SYNDROME - Current Living Status Usual Living Arrangement: Alone - Current Mental Status Evaluation Appearance: Well Groomed Attitude: Cooperative - Affect Affect: Full Range Appropriateness: Appropriate to Content - Mood Mood: Irritable - Speech/Language Expressive: Coherent - Psychomotor Activity Psychomotor Activity: Normal - Thought Process Thought Process: Intact - Thought Content Hallucinations: Absent Delusions: Absent - Self Perception Self Perception: No Impairment - Cognition Attention: Alert Orientation: Time Memory, Immediate Recall: Intact Memory, Short Term: 3/3 Memory, Remote with Promptin/3 - Concentration Serial Sevens Intact: No Simple Calculations Intact: Yes - Abstraction Proverb Interpretation: Intact Judgement: Intact - Insight Insight: Intact - Impulse Control Impulse Control: Good Control - Suicidal Ideation Suicidal Ideation: No - Homicidal Ideation Homicidal Ideation: No Assessment/Plan 1) Patient has the Functional capacity to Make decisions at this time..
--- NOTE | 2019-10-07 19:02 | PN ---
Teaching Attending Note Name of Resident: Kylah Denton ATTENDING PHYSICIAN STATEMENT I saw and evaluated the patient. I reviewed the resident's note and discussed the case with the resident. I agree with the resident's findings and plan as documented. SUBJECTIVE: Patient continues to be confused. OBJECTIVE: Vital Signs Temperature 98.3 F 10/07/19 14:36 Pulse Rate 96 H 10/07/19 14:36 Respiratory Rate 18 10/07/19 14:36 Blood Pressure 118/53 L 10/07/19 14:36 O2 Sat by Pulse Oximetry (%) 100 10/07/19 10:00 PE; per resident's note patient is confused CBCD WBC 15.0 K/mm3 (4.0-10.0) H 10/07/19 06:35 RBC 2.55 M/mm3 (3.60-5.2) L 10/07/19 06:35 Hgb 7.5 GM/dL (10.7-15.3) L 10/07/19 06:35 Hct 24.1 % (32.4-45.2) L 10/07/19 06:35 MCV 94.5 fl (80-96) 10/07/19 06:35 MCHC 31.2 g/dl (32.0-36.0) L 10/07/19 06:35 RDW 20.7 % (11.6-15.6) H 10/07/19 06:35 Plt Count 97 K/MM3 (134-434) L 10/07/19 06:35 MPV 9.4 fl (7.5-11.1) 10/07/19 06:35 CMP Sodium 136 mmol/L (136-145) 10/07/19 06:35 Potassium 4.0 mmol/L (3.5-5.1) 10/07/19 06:35 Chloride 99 mmol/L (98-107) 10/07/19 06:35 Carbon Dioxide 22 mmol/L (21-32) 10/07/19 06:35 Anion Gap 15 MMOL/L (8-16) 10/07/19 06:35 BUN 130.7 mg/dL (7-18) H* 10/07/19 06:35 Creatinine 3.6 mg/dL (0.55-1.3) H 10/07/19 06:35 Random Glucose 176 mg/dL (74-106) H 10/07/19 06:35 Calcium 7.5 mg/dL (8.5-10.1) L 10/07/19 06:35 Total Bilirubin 0.7 mg/dL (0.2-1) 09/29/19 05:52 AST 17 U/L (15-37) 09/29/19 05:52 ALT 15 U/L (13-61) 09/29/19 05:52 Alkaline Phosphatase 375 U/L (45-117) H 09/29/19 05:52 Total Protein 6.7 g/dl (6.4-8.2) 09/29/19 05:52 Albumin 2.3 g/dl (3.4-5.0) L 09/29/19 05:52 CARDIAC ENZYMES Troponin I < 0.02 ng/ml (0.00-0.05) 09/24/19 16:49 Current Medications Generic Name Dose Route Start Last Admin Trade Name Freq PRN Reason Stop Dose Admin Apixaban 2.5 mg 10/04/19 22:00 10/07/19 12:32 Eliquis - PO 2.5 mg BID [facility]IT Administration Carvedilol 25 mg 10/01/19 10:00 10/07/19 12:31 Coreg - PO 25 mg BID [facility]IT Administration Docusate Sodium 300 mg 10/01/19 22:00 10/06/19 21:11 Colace - PO 300 mg HS [facility]IT Administration Furosemide 60 mg 10/06/19 10:17 10/07/19 16:44 Lasix Injection - IVPUSH 60 mg BIDLASIX [facility] Administration Hydralazine HCl 10 mg 09/29/19 14:00 10/07/19 16:46 Apresoline - PO 10 mg TID [facility] Administration Insulin Aspart 1 vial 10/01/19 07:00 10/07/19 16:46 Novolog Vial Sliding Scale - SQ 2 units ACHS [facility]IT Administration Protocol Lactobacillus Acidophilus 1 tab 09/29/19 14:30 10/07/19 12:32 Bacid - PO 1 tab DAILY [facility] Administration Letrozole 2.5 mg 10/01/19 10:00 10/07/19 12:32 Femara - PO 2.5 mg DAILY [facility] Administration Levothyroxine Sodium 100 mcg 10/01/19 07:00 10/07/19 06:35 Synthroid - PO 100 mcg ACBK [facility] Administration Linezolid 600 mg 10/06/19 11:00 10/07/19 12:32 Zyvox (Restricted To Id) - PO 600 mg BID [facility] Administration Nitroglycerin 1 inch 10/03/19 14:26 10/07/19 12:32 Nitro-Bid 2% Paste - TD Not Given Q6HPO [facility] Pantoprazole Sodium 40 mg 10/01/19 10:00 10/07/19 12:32 Protonix - PO 40 mg DAILY [facility] Administration Polyethylene Glycol 17 gm 10/01/19 10:00 10/07/19 12:32 Miralax (For Daily Use) - PO Not Given BID [facility] Sevelamer Carbonate 800 mg 10/06/19 17:30 10/07/19 12:31 Renvela - PO 800 mg TIDCM [facility] Administration Home Medications Medication Instructions Recorded Calcium Carbonate/Vitamin D3 1 each PO BID 06/23/18 [Calcium 500-Vit D3 400 Tablet] Carvedilol [Coreg -] 25 mg PO BID 06/23/18 Polyethylene Glycol 3350 [Miralax 17 gm PO DAILY PRN bottle 04/27/19 119 gm Btl -] Amlodipine Besylate [Norvasc -] 5 mg PO DAILY 08/12/19 Apixaban [Eliquis] 2.5 mg PO BID 08/12/19 Furosemide [Lasix -] 80 mg PO BID 08/12/19 Isosorbide Mononitrate [Imdur -] 60 mg PO DAILY 08/12/19 Sitagliptin Phosphate [Januvia] 25 mg PO DAILY 08/12/19 hydrALAZINE HCL [Apresoline -] 10 mg PO TID 08/12/19 Insulin Glargine,Hum.rec.anlog 25 unit SQ DAILY 09/24/19 [Lantus] Insulin Lispro [Humalog] 100 unit SQ PRN 09/24/19 Letrozole [Femara] 2.5 mg PO DAILY 09/24/19 Omeprazole 20 mg PO DAILY 09/24/19 Pantoprazole Sodium [Protonix] 40 mg PO DAILY 09/24/19 Simethicone 125 mg PO Q4H PRN 09/24/19 Multivitamin [One-Daily 1 each PO DAILY 09/25/19 Multi-Vitamin] Ondansetron [Zofran -] 4 mg PO Q4H PRN 09/25/19 Oxycodone HCl/Acetaminophen 1 tab PO Q12H PRN 09/25/19 [Percocet 5-325 mg Tablet] Diclofenac Sodium 2 gm TP DAILY 09/26/19 Isosorbide Mononitrate [Isosorbide 60 mg PO DAILY 10/06/19 Mononitrate ER] Tramadol HCl 1 tab TID 10/06/19 Microbiology 10/03/19 09:21 Urine - Urine Clean Catch Urine Culture - Final Vr Ec Faecium 09/24/19 20:45 Urine - Urine Clean Catch Urine Culture - Final Klebsiella Pneumoniae - Esbl ECHO: severe annular calcifications , trace MR, moderate to severe TR, severe Pulmonary HTn >60mmhg , pericardium :fat pAd, possible small effusion ASSESSMENT AND PLAN: This patient is a 89yof with PMhx of diastolic CHF, a-fib (on Eliquis), CKD, breast cancer s/p mastectomy, myelodysplasia, IDDM type 2, hypothyroidism, HLD, CVA, and GERD who was admitted for acute D CHF exacerbation #Acute on chronic diastolic heart failure : continue with lasix 60mg IV BiD for now, patient is refusing dialysis, and will hold lasix for now, discussed with nephro, will redose her according in am since her kidney function is worsening , metolazone prn #ESBL producing Klebsiealla complicated UTI/pyelonephritis : s/p Ertapenem 500mg renally dosed day #9 ( completed) , now on Linozilide as per iD #MAURICE on CKD : nephro on the case, continue to monitor #Liver mass : Bx Deferred , follow tumor markers , bone scan #Retroperitoneal LAP #B/L adrenal nodules # Hx of MDS #Chronic normocytic anemia #prolonged QTC: 484, repeat ekg today #high AG metabolic acidosis :resolved # Hx of A fib on Eliquis continue 2.5mg , on Coreg continue #Stage 2 R gluteal decubitus ulcer : frequent turning. patient can't turn due to back pain. she declined after repositioned. air mattress DVT Px: Eliquis code status: the daughter will bring in the advance directive
--- NOTE | 2019-10-07 19:45 | PN ---
Progress Note, Physician History of Present Illness: Pt seen and examined at bedside. SHe is awake and feels that her breathing is improved. - Current Medication List Current Medications: Active Medications Apixaban (Eliquis -) 2.5 mg PO BID [facility] Last Admin: 10/07/19 12:32 Dose: 2.5 mg Documented by: Carvedilol (Coreg -) 25 mg PO BID [facility] Last Admin: 10/07/19 12:31 Dose: 25 mg Documented by: Docusate Sodium (Colace -) 300 mg PO HS [facility] Last Admin: 10/06/19 21:11 Dose: 300 mg Documented by: Furosemide (Lasix Injection -) 60 mg IVPUSH BIDLASIX [facility] Last Admin: 10/07/19 16:44 Dose: 60 mg Documented by: Hydralazine HCl (Apresoline -) 10 mg PO TID [facility] Last Admin: 10/07/19 16:46 Dose: 10 mg Documented by: Insulin Aspart (Novolog Vial Sliding Scale -) 1 vial SQ ACHS [facility]; Protocol Last Admin: 10/07/19 16:46 Dose: 2 units Documented by: Lactobacillus Acidophilus (Bacid -) 1 tab PO DAILY [facility] Last Admin: 10/07/19 12:32 Dose: 1 tab Documented by: Letrozole (Femara -) 2.5 mg PO DAILY [facility] Last Admin: 10/07/19 12:32 Dose: 2.5 mg Documented by: Levothyroxine Sodium (Synthroid -) 100 mcg PO ACBK [facility] Last Admin: 10/07/19 06:35 Dose: 100 mcg Documented by: Linezolid (Zyvox (Restricted To Id) -) 600 mg PO BID [facility] Last Admin: 10/07/19 12:32 Dose: 600 mg Documented by: Nitroglycerin (Nitro-Bid 2% Paste -) 1 inch TD Q6HPO [facility] Last Admin: 10/07/19 12:32 Dose: Not Given Documented by: Pantoprazole Sodium (Protonix -) 40 mg PO DAILY [facility] Last Admin: 10/07/19 12:32 Dose: 40 mg Documented by: Polyethylene Glycol (Miralax (For Daily Use) -) 17 gm PO BID [facility] Last Admin: 10/07/19 12:32 Dose: Not Given Documented by: Sevelamer Carbonate (Renvela -) 800 mg PO TIDCM [facility] Last Admin: 10/07/19 12:31 Dose: 800 mg Documented by: - Objective Vital Signs: Vital Signs Temperature 98.3 F 10/07/19 14:36 Pulse Rate 96 H 10/07/19 14:36 Respiratory Rate 18 10/07/19 14:36 Blood Pressure 118/53 L 10/07/19 14:36 O2 Sat by Pulse Oximetry (%) 100 10/07/19 10:00 Constitutional: Yes: Calm Eyes: Yes: Conjunctiva Clear HENT: Yes: Atraumatic Cardiovascular: Yes: S1, S2 Respiratory: Yes: On Nasal O2 Gastrointestinal: Yes: Soft Genitourinary: Yes: WNL Musculoskeletal: Yes: WNL Edema: Yes Edema: LLE: 2+, RLE: 2+ Neurological: Yes: Oriented Psychiatric: Yes: Oriented Labs: CBC, BMP 10/07/19 06:35 10/07/19 06:35 INR, PTT INR 1.59 (0.83-1.09) H 10/01/19 08:18 Assessment/Plan Current Medications Generic Name Dose Route Start Last Admin Trade Name Meena PRN Reason Stop Dose Admin Apixaban 2.5 mg 10/04/19 22:00 10/07/19 12:32 Eliquis - PO 2.5 mg BID [facility] Administration Carvedilol 25 mg 10/01/19 10:00 10/07/19 12:31 Coreg - PO 25 mg BID [facility] Administration Docusate Sodium 300 mg 10/01/19 22:00 10/06/19 21:11 Colace - PO 300 mg HS [facility] Administration Furosemide 60 mg 10/06/19 10:17 10/07/19 16:44 Lasix Injection - IVPUSH 60 mg BIDLASIX [facility] Administration Hydralazine HCl 10 mg 09/29/19 14:00 10/07/19 16:46 Apresoline - PO 10 mg TID [facility] Administration Insulin Aspart 1 vial 10/01/19 07:00 10/07/19 16:46 Novolog Vial Sliding Scale - SQ 2 units ACHS [facility] Administration Protocol Lactobacillus Acidophilus 1 tab 09/29/19 14:30 10/07/19 12:32 Bacid - PO 1 tab DAILY [facility] Administration Letrozole 2.5 mg 10/01/19 10:00 10/07/19 12:32 Femara - PO 2.5 mg DAILY [facility] Administration Levothyroxine Sodium 100 mcg 10/01/19 07:00 10/07/19 06:35 Synthroid - PO 100 mcg ACBK [facility] Administration Linezolid 600 mg 10/06/19 11:00 10/07/19 12:32 Zyvox (Restricted To Id) - PO 600 mg BID [facility] Administration Nitroglycerin 1 inch 10/03/19 14:26 10/07/19 12:32 Nitro-Bid 2% Paste - TD Not Given Q6HPO [facility] Pantoprazole Sodium 40 mg 10/01/19 10:00 10/07/19 12:32 Protonix - PO 40 mg DAILY [facility] Administration Polyethylene Glycol 17 gm 10/01/19 10:00 10/07/19 12:32 Miralax (For Daily Use) - PO Not Given BID [facility] Sevelamer Carbonate 800 mg 10/06/19 17:30 10/07/19 12:31 Renvela - PO 800 mg TIDCM [facility] Administration Laboratory Tests 10/07/19 06:35 Phosphorus 6.3 H Impression 1. proteinuria 2. hypothyroid 3. HTN 4. DM 5. fluid overload 6. breast cancer 7. anemia 8. CKD 9. CHF 10. hyponatremia 11. hypokalemia Plan - check labs in am - redose lasix tomorrow - renal function worsening - pt does not want HD - will need to keep diuretics on board to help with overload - will need to clarify GOC - cont sevelamer
[2019-10-07] MEDS: DOCUSATE SODIUM 100 MG CAPSULE (FP) PO SCH (22:04)
[2019-10-08] MEDS: NITROGLYCERIN 2% OINTMENT - 1GM PACKET TD SCH ×5 (00:48→17:46)
[2019-10-08] MEDS: INSULIN SLIDING SCALE (NOVOLOG) 1 VIAL SQ SCH ×4 (07:06→22:03)
[2019-10-08] MEDS: hydrALAZINE HCL 10 MG TABLET PO SCH ×3 (07:11→22:03)
[2019-10-08] MEDS: LEVOTHYROXINE NA 100 MCG TABLET (FP) PO SCH (07:11)
[2019-10-08] MEDS: FUROSEMIDE 40 MG/4 ML INJECTABLE VIAL IVPUSH SCH ×2 (07:20→14:47)
[2019-10-08 08:14] LABS: HEMATOCRIT 25.2 % (32.4-45.2); HEMOGLOBIN 7.8 GM/dL (10.7-15.3); MCH 29.4 pg (25.7-33.7); MCHC 31.1 g/dl (32.0-36.0); MEAN CELL VOLUME 94.4 fl (80-96); MEAN PLT VOLUME 8.9 fl (7.5-11.1); PLATELET COUNT 103 K/MM3 (134-434); RBC 2.67 M/mm3 (3.60-5.2); RDW 19.9 % (11.6-15.6); WHITE BLOOD COUNT 14.7 K/mm3 (4.0-10.0)
[2019-10-08 08:39] LABS: CALCIUM 7.5 mg/dL (8.5-10.1); CREATININE 3.4 mg/dL (0.55-1.3); MAGNESIUM 2.2 mg/dL (1.8-2.4); PHOSPHOROUS 5.8 mg/dL (2.5-4.9); POTASSIUM 3.8 mmol/L (3.5-5.1)
[2019-10-08] MEDS: LACTOBACILLUS ACIDOPHILUS 1 TABLET PO SCH (09:35)
[2019-10-08] MEDS: SEVELAMER CARBONATE 800 MG TAB (FP) PO SCH ×3 (09:35→17:46)
[2019-10-08] MEDS: PANTOPRAZOLE 40 MG TABLET PO SCH (09:36)
[2019-10-08] MEDS: APIXABAN 2.5 MG TABLET PO SCH ×2 (09:36→22:03)
[2019-10-08] MEDS: POLYETHYLENE GLYCOL 3350 119 GM BTL PO SCH ×2 (09:36→22:03)
[2019-10-08] MEDS: CARVEDILOL 25 MG TABLET (FP) PO SCH ×2 (09:36→22:03)
[2019-10-08] MEDS: LETROZOLE 2.5 MG TABLET (FP) PO SCH (09:36)
[2019-10-08] MEDS: LINEZOLID 600 MG TABLET (RESTRICTED TO ID) PO SCH ×2 (09:37→22:07)
[2019-10-08 09:43] LABS: BLOOD UREA NITROGEN 125.2 mg/dL (7-18)
--- NOTE | 2019-10-08 10:18 | PN ---
Progress Note, Physician Chief Complaint: alert, no distress Denies CP/SOB/dizziness History of Present Illness: CKD CHF UTI - Current Medication List Current Medications: Active Medications Apixaban (Eliquis -) 2.5 mg PO BID [facility] Last Admin: 10/08/19 09:36 Dose: 2.5 mg Documented by: Carvedilol (Coreg -) 25 mg PO BID [facility] Last Admin: 10/08/19 09:36 Dose: 25 mg Documented by: Docusate Sodium (Colace -) 300 mg PO HS [facility] Last Admin: 10/07/19 22:04 Dose: 300 mg Documented by: Furosemide (Lasix Injection -) 60 mg IVPUSH BIDLASIX [facility] Last Admin: 10/08/19 07:20 Dose: 60 mg Documented by: Hydralazine HCl (Apresoline -) 10 mg PO TID [facility] Last Admin: 10/08/19 07:11 Dose: 10 mg Documented by: Insulin Aspart (Novolog Vial Sliding Scale -) 1 vial SQ ACHS [facility]; Protocol Last Admin: 10/08/19 07:06 Dose: Not Given Documented by: Lactobacillus Acidophilus (Bacid -) 1 tab PO DAILY [facility] Last Admin: 10/08/19 09:35 Dose: 1 tab Documented by: Letrozole (Femara -) 2.5 mg PO DAILY [facility] Last Admin: 10/08/19 09:36 Dose: 2.5 mg Documented by: Levothyroxine Sodium (Synthroid -) 100 mcg PO ACBK [facility] Last Admin: 10/08/19 07:11 Dose: 100 mcg Documented by: Linezolid (Zyvox (Restricted To Id) -) 600 mg PO BID [facility] Last Admin: 10/08/19 09:37 Dose: 600 mg Documented by: Nitroglycerin (Nitro-Bid 2% Paste -) 1 inch TD Q6HPO [facility] Last Admin: 10/08/19 09:35 Dose: Not Given Documented by: Pantoprazole Sodium (Protonix -) 40 mg PO DAILY [facility] Last Admin: 10/08/19 09:36 Dose: 40 mg Documented by: Polyethylene Glycol (Miralax (For Daily Use) -) 17 gm PO BID [facility] Last Admin: 10/08/19 09:36 Dose: Not Given Documented by: Sevelamer Carbonate (Renvela -) 800 mg PO TIDCM [facility] Last Admin: 10/08/19 09:35 Dose: 800 mg Documented by: - Objective Vital Signs: Vital Signs Temperature 97.8 F 10/08/19 06:00 Pulse Rate 93 H 10/08/19 06:00 Respiratory Rate 18 10/08/19 06:00 Blood Pressure 123/55 L 10/08/19 06:00 O2 Sat by Pulse Oximetry (%) 100 10/07/19 21:00 Constitutional: Yes: No Distress Eyes: Yes: Conjunctiva Clear Cardiovascular: Yes: Regular Rate and Rhythm Respiratory: Yes: Other (decreased breath sounds bases. No wheezing/rhonchi) Gastrointestinal: Yes: Soft (nt) Edema: Yes Edema: LLE: 1+, RLE: 1+ Neurological: Yes: Alert, Oriented Labs: CBC, BMP 10/08/19 07:00 10/08/19 07:00 INR, PTT INR 1.59 (0.83-1.09) H 10/01/19 08:18 Assessment/Plan Assessment/Plan echo 03/2019 nl LV function, mild MR, mild TR, PASP at least 49 mmHg IMP/REC: Acute diastolic heart failure exacerbation: - recent echo nl LV function - no signs acs - no reliable wts trend here - continue lasix, holding aldactone - lasix reduced to 60 mg IV BID - per d/w dr georges it is likely her renal fxn will not improve with effective diuresis - refused dialysis - cont nitrates for cardiorenal syndrome - palliative care is following, considering hospice HTN: - bp stable - cont current meds crow on CKD: - Baseline creat from last admission is 2-2.5, elevated now, likely cardiorenal - renal following PAF: -cont coreg for rate control -cont eliquis low dose (age, creatinine) liver mass: -heme/onc following anemia: -hgb 7s, stable, guaiac negative -? sec to CKD -per primary team, heme-onc
--- NOTE | 2019-10-08 10:39 | EKG ---
Test Reason : Blood Pressure : / mmHG Vent. Rate : 100 BPM Atrial Rate : 101 BPM P-R Int : 000 ms QRS Dur : 112 ms QT Int : 326 ms P-R-T Axes : 000 -46 043 degrees QTc Int : 420 ms ATRIAL FIBRILLATION WITH PREMATURE VENTRICULAR OR ABERRANTLY CONDUCTED COMPLEXES LEFT AXIS DEVIATION ABNORMAL ECG Confirmed by OLAF HAIRSTON MD ([id number]) on 10/08/2019 10:38:29 AM Referred By: Darrell CESPEDES Confirmed By:OLAF HAIRSTON MD
--- NOTE | 2019-10-08 14:14 | PN ---
Physical Exam: SUBJECTIVE: Patient seen and examined bedside. In no acute distress. Nurse mentioned that overnight she thought she heard the patient talking to herself and possibly hallucinating. Patient was however alert and oriented this morning. OBJECTIVE: Vital Signs Vital Signs - 24 hr 10/08/19 10/08/19 06:00 10:00 Temperature 97.8 F 98 F Pulse Rate 93 H 85 Respiratory 18 18 Rate Blood Pressure 123/55 L 129/71 O2 Sat by Pulse 98 Oximetry (%) GENERAL: The patient is awake, alert, and oriented, in no acute distress. LUNGS: Breath sounds equal, clear to auscultation bilaterally HEART: Regular rate and rhythm ABDOMEN: Soft, nontender, nondistended,. EXTREMITIES: BL + 2 pitting edema up to ankles, overall leg edema improved since yesterday Laboratory Results - last 24 hr 10/08/19 10/08/19 07:00 07:00 WBC 14.7 H RBC 2.67 L Hgb 7.8 L Hct 25.2 L MCV 94.4 MCH 29.4 MCHC 31.1 L RDW 19.9 H Plt Count 103 L MPV 8.9 Sodium 135 L Potassium 3.8 Chloride 98 Carbon Dioxide 27 Anion Gap 11 BUN 125.2 H* Creatinine 3.4 H Est GFR (CKD-EPI)AfAm 13.17 Est GFR (CKD-EPI)NonAf 11.37 POC Glucometer 197 Random Glucose 142 H Calcium 7.5 L Phosphorus 5.8 H Magnesium 2.2 Active Medications Generic Name Dose Route Start Last Admin Trade Name Freq PRN Reason Stop Dose Admin Apixaban 2.5 mg 10/04/19 22:00 10/08/19 09:36 Eliquis - PO 2.5 mg BID [facility] Administration Carvedilol 25 mg 10/01/19 10:00 10/08/19 09:36 Coreg - PO 25 mg BID [facility] Administration Docusate Sodium 300 mg 10/01/19 22:00 10/07/19 22:04 Colace - PO 300 mg HS [facility] Administration Furosemide 60 mg 10/06/19 10:17 10/08/19 07:20 Lasix Injection - IVPUSH 60 mg BIDLASIX [facility] Administration Hydralazine HCl 10 mg 09/29/19 14:00 10/08/19 07:11 Apresoline - PO 10 mg TID [facility] Administration Insulin Aspart 1 vial 10/01/19 07:00 10/08/19 11:13 Novolog Vial Sliding Scale - SQ 2 units ACHS [facility] Administration Protocol Lactobacillus Acidophilus 1 tab 09/29/19 14:30 10/08/19 09:35 Bacid - PO 1 tab DAILY [facility] Administration Letrozole 2.5 mg 10/01/19 10:00 10/08/19 09:36 Femara - PO 2.5 mg DAILY [facility] Administration Levothyroxine Sodium 100 mcg 10/01/19 07:00 10/08/19 07:11 Synthroid - PO 100 mcg ACBK [facility] Administration Linezolid 600 mg 10/06/19 11:00 10/08/19 09:37 Zyvox (Restricted To Id) - PO 600 mg BID [facility] Administration Nitroglycerin 1 inch 10/03/19 14:26 10/08/19 12:59 Nitro-Bid 2% Paste - TD 1 inch Q6HPO [facility] Administration Pantoprazole Sodium 40 mg 10/01/19 10:00 10/08/19 09:36 Protonix - PO 40 mg DAILY [facility] Administration Polyethylene Glycol 17 gm 10/01/19 10:00 10/08/19 09:36 Miralax (For Daily Use) - PO Not Given BID [facility] Sevelamer Carbonate 800 mg 10/06/19 17:30 10/08/19 12:59 Renvela - PO 800 mg TIDCM [facility] Administration ASSESSMENT/PLAN: 89F yo female with pmhx of diastolic CHF, a-fib (on Eliquis), CKD, breast cancer s/p mastectomy, myelodysplasia, IDDM type 2, hypothyroidism, HLD, CVA, and GERD presents with b/l leg swelling and nausea for "weeks" and back pain for several days admitted for acute CHF exacerbation. Acute on Chronic Diastolic CHF Exacerbation; -Daily weights, I/Os, 2gm Na diet w/ fluid restriction -Cardio consulted; currently on Lasix 80 BID IV -Cont O2 NC, currently on 2L intermittently -Repeat Echo (10/03) showed LV wnl, EF 55-60%, atria severely dilated, RV borderline in size and fxn, AV sclerotic, MV severe annular calcification, trace MR, mod to sev TR and sev pHTN, possible small pericardial effusion -F/u cardio recs ESBL UTI; No urinary symptoms -UCx +ESBL Kleb pneumo; repeat UCx +Group D strep/enterococcus -Per ID, Ertapenem 500 mg QD completed today. Started on ZYVOX 600MG PO BID X 3D and maintain contact precautions - Last day is today 10/07 New 4 cm L Hepatic Lobe lesion; in setting of hx of breast cancer and myelodysplasia -Onc consulted- Dr. Sullivan spoke to pt at length last week, and pt agrees to have breast cancer markers (CA 27,29) and colon cancer markers (CEA) (last colonoscopy was about 1 year ago and negative, so less likely from colon) instead of liver biopsy at this time; if findings are from breast ca, adjustments can be made to hormonal therapy -Per palliative care, goal is to be more comfortable, hospice would be appropriate if patient and family are in agreement. Will add Dilaudid 0.5 mg IV q6h PRN fo rpain Cont home meds: Letrozole 2.5 QD Stage 2 sacral ulcer; not infected -Santyl and bandage -Frequent turning and positioning -Dilaudid 0.5 mg Q6H PRN for pain Hyponatremia; likely 2/2 fluid overload. Resolved. -2gm Na diet w/ fluid restriction -IV diuresis -Renal consulted MAURICE on CKD; BUN/Cr worsening. -Hold amlodipine, hydralazine to allow for pressure drop and prevent hypoperfusion from IV Lasix -serial BMPs to monitor Cr (baseline near 2) -Monitoring Phosphorus, currently 6.3, (5.0 on admission) -Per renal, pt and family do not want HD - F/u nephro recs for further Lasix today 10/07 Anemia; likely multi-factorial in setting of CKD, myelodysplasia, r/o GI bleed. s/p 1 dose of IV Venofer -Hb 7.8 today -During last admission, was seen by heme with recommendation for outpt workup -Transfuse PRN to maintain Hgb >7 -FOBT neg HTN; Stable. Cont home med: Carvedilol 25 BID. Per cardio, will cont rest of home meds when BP stable Generalized abdominal pain; 2/2 constipation vs. liver mass -Miralax 17 gm BID for constipation -QTc 484, try to avoid Zofran for nausea/vomiting Hypothyroidism; Cont home meds: Synthroid 100 Prophylaxis DVT: Cont home Eliquis 2.5 BID - Team spoke to cardiology on regarding patient's kidney function and Eliquis, Cardiology recommended to maintain eliquis as is. GI: Cont home Protonix 40 FEN -Fluid restriction -monitor Na, Cl, and Cr -sodium/diabetic diet Dispo -cont to monitor on med-surg - As per Psych Charlee: patient has capacity to make decision. - Palliative care will reassess GOC with patient - FULL CODE Visit type - Emergency Visit Emergency Visit: Yes ED Registration Date: 09/24/19 Care time: The patient presented to the Emergency Department on the above date and was hospitalized for further evaluation of their emergent condition. - New Patient This patient is new to me today: No - Critical Care Critical Care patient: No ATTENDING PHYSICIAN STATEMENT I saw and evaluated the patient. I reviewed the resident's note and discussed the case with the resident. I agree with the resident's findings and plan as documented. SUBJECTIVE: OBJECTIVE: ASSESSMENT AND PLAN:
--- NOTE | 2019-10-08 16:12 | PN ---
Progress Note, Physician History of Present Illness: Pt seen and examined at bedside. She is awake and appears comfortable. - Current Medication List Current Medications: Active Medications Apixaban (Eliquis -) 2.5 mg PO BID [facility] Last Admin: 10/08/19 09:36 Dose: 2.5 mg Documented by: Carvedilol (Coreg -) 25 mg PO BID [facility] Last Admin: 10/08/19 09:36 Dose: 25 mg Documented by: Docusate Sodium (Colace -) 300 mg PO HS [facility] Last Admin: 10/07/19 22:04 Dose: 300 mg Documented by: Furosemide (Lasix Injection -) 60 mg IVPUSH BIDLASIX [facility] Last Admin: 10/08/19 14:47 Dose: 60 mg Documented by: Hydralazine HCl (Apresoline -) 10 mg PO TID [facility] Last Admin: 10/08/19 14:47 Dose: 10 mg Documented by: Insulin Aspart (Novolog Vial Sliding Scale -) 1 vial SQ ACHS [facility]; Protocol Last Admin: 10/08/19 11:13 Dose: 2 units Documented by: Lactobacillus Acidophilus (Bacid -) 1 tab PO DAILY [facility] Last Admin: 10/08/19 09:35 Dose: 1 tab Documented by: Letrozole (Femara -) 2.5 mg PO DAILY [facility] Last Admin: 10/08/19 09:36 Dose: 2.5 mg Documented by: Levothyroxine Sodium (Synthroid -) 100 mcg PO ACBK [facility] Last Admin: 10/08/19 07:11 Dose: 100 mcg Documented by: Linezolid (Zyvox (Restricted To Id) -) 600 mg PO BID [facility] Stop: 10/09/19 02:00 Last Admin: 10/08/19 09:37 Dose: 600 mg Documented by: Nitroglycerin (Nitro-Bid 2% Paste -) 1 inch TD Q6HPO [facility] Last Admin: 10/08/19 12:59 Dose: 1 inch Documented by: Pantoprazole Sodium (Protonix -) 40 mg PO DAILY [facility] Last Admin: 10/08/19 09:36 Dose: 40 mg Documented by: Polyethylene Glycol (Miralax (For Daily Use) -) 17 gm PO BID [facility] Last Admin: 10/08/19 09:36 Dose: Not Given Documented by: Sevelamer Carbonate (Renvela -) 800 mg PO TIDCM [facility] Last Admin: 10/08/19 12:59 Dose: 800 mg Documented by: - Objective Vital Signs: Vital Signs Temperature 97.5 F L 10/08/19 14:27 Pulse Rate 92 H 10/08/19 14:27 Respiratory Rate 18 10/08/19 14:27 Blood Pressure 122/66 10/08/19 14:27 O2 Sat by Pulse Oximetry (%) 98 10/08/19 10:00 Constitutional: Yes: Calm Eyes: Yes: Conjunctiva Clear HENT: Yes: Atraumatic Neck: Yes: Supple Cardiovascular: Yes: S1, S2 Respiratory: Yes: On Nasal O2 Gastrointestinal: Yes: Soft Genitourinary: Yes: Incontinence Musculoskeletal: Yes: Muscle Weakness Edema: Yes Edema: LLE: 2+, RLE: 2+ Integumentary: Yes: Venous Stasis Changes Neurological: Yes: Oriented Labs: CBC, BMP 10/08/19 07:00 10/08/19 07:00 INR, PTT INR 1.59 (0.83-1.09) H 10/01/19 08:18 Assessment/Plan Current Medications Generic Name Dose Route Start Last Admin Trade Name Meena PRN Reason Stop Dose Admin Apixaban 2.5 mg 10/04/19 22:00 10/08/19 09:36 Eliquis - PO 2.5 mg BID [facility] Administration Carvedilol 25 mg 10/01/19 10:00 10/08/19 09:36 Coreg - PO 25 mg BID [facility] Administration Docusate Sodium 300 mg 10/01/19 22:00 10/07/19 22:04 Colace - PO 300 mg HS [facility] Administration Furosemide 60 mg 10/06/19 10:17 10/08/19 14:47 Lasix Injection - IVPUSH 60 mg BIDLASIX [facility] Administration Hydralazine HCl 10 mg 09/29/19 14:00 10/08/19 14:47 Apresoline - PO 10 mg TID [facility] Administration Insulin Aspart 1 vial 10/01/19 07:00 10/08/19 11:13 Novolog Vial Sliding Scale - SQ 2 units ACHS [facility] Administration Protocol Lactobacillus Acidophilus 1 tab 09/29/19 14:30 10/08/19 09:35 Bacid - PO 1 tab DAILY [facility] Administration Letrozole 2.5 mg 10/01/19 10:00 10/08/19 09:36 Femara - PO 2.5 mg DAILY [facility] Administration Levothyroxine Sodium 100 mcg 10/01/19 07:00 10/08/19 07:11 Synthroid - PO 100 mcg ACBK [facility] Administration Linezolid 600 mg 10/06/19 11:00 10/08/19 09:37 Zyvox (Restricted To Id) - PO 10/09/19 02:00 600 mg BID [facility] Administration Nitroglycerin 1 inch 10/03/19 14:26 10/08/19 12:59 Nitro-Bid 2% Paste - TD 1 inch Q6HPO [facility] Administration Pantoprazole Sodium 40 mg 10/01/19 10:00 10/08/19 09:36 Protonix - PO 40 mg DAILY [facility] Administration Polyethylene Glycol 17 gm 10/01/19 10:00 10/08/19 09:36 Miralax (For Daily Use) - PO Not Given BID [facility] Sevelamer Carbonate 800 mg 10/06/19 17:30 10/08/19 12:59 Renvela - PO 800 mg TIDCM [facility] Administration Impression 1. proteinuria 2. hypothyroid 3. HTN 4. DM 5. fluid overload 6. breast cancer 7. anemia 8. CKD 9. CHF 10. hyponatremia 11. hypokalemia Plan - cont lasix - renal function is poor - pt does not want HD therapy - monitor renal function - volume status is marginally improved - will need to clarify GOC - cont sevelamer
--- NOTE | 2019-10-08 16:49 | PN ---
Progress Note (short form) - Note Progress Note: 89 y/o female with PMHx of diastolic CHF, a-fib (on Eliquis), CKD, breast cancer s/p left breast lumpectomy and radiation in 2013, myelodysplasia, IDDM type 2, hypothyroidism, HLD, CVA, and GERD who was admitted to [facility] 09/23 with constipation, SOB, b/l leg swelling and nausea for "weeks" and back pain for "several days." Elissa has been in and out of hospitals and nursing homes this past year and she has been bedbound since February of last year. A CT of the abdomen revealed a 4 cm L hepatic lobe hypodense lesion suspicious for metastatic disease as well as a 2.[address] enlargement and enlarged retroperitoneal nodes. Very elevated BNP and edematous- s/p aggressive diuresis with improvement in edema but worsening renal function. 2 hepatic masses seen on USG liver- 5.7 cm and 4 cm respectively. She has been seen by Ha[facility]- onc- cancer markers have been sent- presumed metastatic breast cancer- depending on test results there might be some modification in breast cancer hormonal treatment but pt is not a candidate for aggressive chemo/ sx/ radiation. She was also diagnosed with MDS/ AML or MPN as per haem- onc. Lumbar CT showed multilevel DJD, no neoplastic disease. HD has been recommended but patient has refused it. VSS AAO x 3 NAD decreased appetite denies SOB Prognosis guarded Patient has decided against HD She is not sure regarding Hospice. I have spoken to pt's daughter Marybeth Gonzalez. She herself would prefer that no further aggressive measures are taken. As per Marybeth Ms Singh is a fighter and has always had a zest for life and Marybeth cannot imagine that her mother will give up but understands that the decision is her Mom's and she would defer to it. Elissa wants to be full code. She does not want HD and would be appropriate for comfort/ hospice care. We discussed that because of her debility she cannot go home and will be more suitable for a fdc and continue pain meds, diuretics etc with the goal being to provide comfort to her. She requested some more time to think about this and requested SW visit so she could see what her options are and her family could also weigh in. She may be appropriate for SNF on palliative care. Discussions ongoing.Will follow. Problem List - Problems (1) Acute diastolic (congestive) heart failure Code(s): I50.31 - ACUTE DIASTOLIC (CONGESTIVE) HEART FAILURE (2) Acute kidney injury superimposed on CKD Code(s): N17.9 - ACUTE KIDNEY FAILURE, UNSPECIFIED; N18.9 - CHRONIC KIDNEY DISEASE, UNSPECIFIED (3) Breast cancer Code(s): C50.919 - MALIGNANT NEOPLASM OF UNSP SITE OF UNSPECIFIED FEMALE BREAST (4) History of CVA with residual deficit Code(s): I69.30 - UNSPECIFIED SEQUELAE OF CEREBRAL INFARCTION (5) Renal disease Code(s): N28.9 - DISORDER OF KIDNEY AND URETER, UNSPECIFIED
--- NOTE | 2019-10-08 17:24 | PN ---
Teaching Attending Note Name of Resident: Kylah Denton ATTENDING PHYSICIAN STATEMENT I saw and evaluated the patient. I reviewed the resident's note and discussed the case with the resident. I agree with the resident's findings and plan as documented. SUBJECTIVE: Patient is better today, Alert, awake. OBJECTIVE: Vital Signs Temperature 97.5 F L 10/08/19 14:27 Pulse Rate 92 H 10/08/19 14:27 Respiratory Rate 18 10/08/19 14:27 Blood Pressure 122/66 10/08/19 14:27 O2 Sat by Pulse Oximetry (%) 98 10/08/19 10:00 PE: per resident's note CBCD WBC 14.7 K/mm3 (4.0-10.0) H 10/08/19 07:00 RBC 2.67 M/mm3 (3.60-5.2) L 10/08/19 07:00 Hgb 7.8 GM/dL (10.7-15.3) L 10/08/19 07:00 Hct 25.2 % (32.4-45.2) L 10/08/19 07:00 MCV 94.4 fl (80-96) 10/08/19 07:00 MCHC 31.1 g/dl (32.0-36.0) L 10/08/19 07:00 RDW 19.9 % (11.6-15.6) H 10/08/19 07:00 Plt Count 103 K/MM3 (134-434) L 10/08/19 07:00 MPV 8.9 fl (7.5-11.1) 10/08/19 07:00 CMP Sodium 135 mmol/L (136-145) L 10/08/19 07:00 Potassium 3.8 mmol/L (3.5-5.1) 10/08/19 07:00 Chloride 98 mmol/L (98-107) 10/08/19 07:00 Carbon Dioxide 27 mmol/L (21-32) 10/08/19 07:00 Anion Gap 11 MMOL/L (8-16) 10/08/19 07:00 BUN 125.2 mg/dL (7-18) H* 10/08/19 07:00 Creatinine 3.4 mg/dL (0.55-1.3) H 10/08/19 07:00 Random Glucose 142 mg/dL (74-106) H 10/08/19 07:00 Calcium 7.5 mg/dL (8.5-10.1) L 10/08/19 07:00 Total Bilirubin 0.7 mg/dL (0.2-1) 09/29/19 05:52 AST 17 U/L (15-37) 09/29/19 05:52 ALT 15 U/L (13-61) 09/29/19 05:52 Alkaline Phosphatase 375 U/L (45-117) H 09/29/19 05:52 Total Protein 6.7 g/dl (6.4-8.2) 09/29/19 05:52 Albumin 2.3 g/dl (3.4-5.0) L 09/29/19 05:52 CARDIAC ENZYMES Troponin I < 0.02 ng/ml (0.00-0.05) 09/24/19 16:49 Current Medications Generic Name Dose Route Start Last Admin Trade Name Freq PRN Reason Stop Dose Admin Apixaban 2.5 mg 10/04/19 22:00 10/08/19 09:36 Eliquis - PO 2.5 mg BID [facility] Administration Carvedilol 25 mg 10/01/19 10:00 10/08/19 09:36 Coreg - PO 25 mg BID [facility] Administration Docusate Sodium 300 mg 10/01/19 22:00 10/07/19 22:04 Colace - PO 300 mg HS [facility] Administration Furosemide 60 mg 10/06/19 10:17 10/08/19 14:47 Lasix Injection - IVPUSH 60 mg BIDLASIX [facility] Administration Hydralazine HCl 10 mg 09/29/19 14:00 10/08/19 14:47 Apresoline - PO 10 mg TID [facility] Administration Insulin Aspart 1 vial 10/01/19 07:00 10/08/19 11:13 Novolog Vial Sliding Scale - SQ 2 units ACHS [facility] Administration Protocol Lactobacillus Acidophilus 1 tab 09/29/19 14:30 10/08/19 09:35 Bacid - PO 1 tab DAILY [facility] Administration Letrozole 2.5 mg 10/01/19 10:00 10/08/19 09:36 Femara - PO 2.5 mg DAILY [facility] Administration Levothyroxine Sodium 100 mcg 10/01/19 07:00 10/08/19 07:11 Synthroid - PO 100 mcg ACBK [facility] Administration Linezolid 600 mg 10/06/19 11:00 10/08/19 09:37 Zyvox (Restricted To Id) - PO 10/09/19 02:00 600 mg BID [facility] Administration Nitroglycerin 1 inch 10/03/19 14:26 10/08/19 12:59 Nitro-Bid 2% Paste - TD 1 inch Q6HPO [facility] Administration Pantoprazole Sodium 40 mg 10/01/19 10:00 10/08/19 09:36 Protonix - PO 40 mg DAILY [facility] Administration Polyethylene Glycol 17 gm 10/01/19 10:00 10/08/19 09:36 Miralax (For Daily Use) - PO Not Given BID [facility] Sevelamer Carbonate 800 mg 10/06/19 17:30 10/08/19 12:59 Renvela - PO 800 mg TIDCM [facility] Administration Home Medications Medication Instructions Recorded Calcium Carbonate/Vitamin D3 1 each PO BID 06/23/18 [Calcium 500-Vit D3 400 Tablet] Carvedilol [Coreg -] 25 mg PO BID 06/23/18 Polyethylene Glycol 3350 [Miralax 17 gm PO DAILY PRN bottle 04/27/19 119 gm Btl -] Amlodipine Besylate [Norvasc -] 5 mg PO DAILY 08/12/19 Apixaban [Eliquis] 2.5 mg PO BID 08/12/19 Furosemide [Lasix -] 80 mg PO BID 08/12/19 Isosorbide Mononitrate [Imdur -] 60 mg PO DAILY 08/12/19 Sitagliptin Phosphate [Januvia] 25 mg PO DAILY 08/12/19 hydrALAZINE HCL [Apresoline -] 10 mg PO TID 08/12/19 Insulin Glargine,Hum.rec.anlog 25 unit SQ DAILY 09/24/19 [Lantus] Insulin Lispro [Humalog] 100 unit SQ PRN 09/24/19 Letrozole [Femara] 2.5 mg PO DAILY 09/24/19 Omeprazole 20 mg PO DAILY 09/24/19 Pantoprazole Sodium [Protonix] 40 mg PO DAILY 09/24/19 Simethicone 125 mg PO Q4H PRN 09/24/19 Multivitamin [One-Daily 1 each PO DAILY 09/25/19 Multi-Vitamin] Ondansetron [Zofran -] 4 mg PO Q4H PRN 09/25/19 Oxycodone HCl/Acetaminophen 1 tab PO Q12H PRN 09/25/19 [Percocet 5-325 mg Tablet] Diclofenac Sodium 2 gm TP DAILY 09/26/19 Isosorbide Mononitrate [Isosorbide 60 mg PO DAILY 10/06/19 Mononitrate ER] Tramadol HCl 1 tab TID 10/06/19 Microbiology 10/03/19 09:21 Urine - Urine Clean Catch Urine Culture - Final Vr Ec Faecium 09/24/19 20:45 Urine - Urine Clean Catch Urine Culture - Final Klebsiella Pneumoniae - Esbl ECHO: severe annular calcifications , trace MR, moderate to severe TR, severe Pulmonary HTn >60mmhg , pericardium :fat pAd, possible small effusion ASSESSMENT AND PLAN: This patient is a 89yof with PMhx of diastolic CHF, a-fib (on Eliquis), CKD, breast cancer s/p mastectomy, myelodysplasia, IDDM type 2, hypothyroidism, HLD, CVA, and GERD who was admitted for acute D CHF exacerbation #Acute on chronic diastolic heart failure : lasix iv per nephrol. patient is refusing dialysis, discussed with nephro, will redose her lasix according to her kidney function , metolazone prn #ESBL producing Klebsiealla complicated UTI/pyelonephritis : s/p Ertapenem 500mg renally dosed day #9 ( completed) , now on Linozilide 600mg bid as per iD #MAURICE on CKD : nephro on the case, continue to monitor #Liver mass : Bx Deferred , follow tumor markers , bone scan #Retroperitoneal LAP #B/L adrenal nodules # Hx of MDS #Chronic normocytic anemia #prolonged QTC: 484-->420 now #high AG metabolic acidosis :resolved # Hx of A fib on Eliquis continue 2.5mg , on Coreg continue #Stage 2 R gluteal decubitus ulcer : frequent turning. patient can't turn due to back pain. she declined after repositioned. air mattress DVT Px: Eliquis code status: the daughter will bring in the advance directive
[2019-10-08] MEDS ORDERED: INSULIN (NOVOLOG) ASPART 100 UNITS/ML 10ML VIAL ONE (18:19)
[2019-10-08] MEDS: DOCUSATE SODIUM 100 MG CAPSULE (FP) PO SCH (22:03)
[2019-10-09] MEDS: NITROGLYCERIN 2% OINTMENT - 1GM PACKET TD SCH ×4 (00:10→18:03)
[2019-10-09] MEDS: FUROSEMIDE 40 MG/4 ML INJECTABLE VIAL IVPUSH SCH ×2 (06:31→15:41)
[2019-10-09] MEDS: LEVOTHYROXINE NA 100 MCG TABLET (FP) PO SCH (06:31)
[2019-10-09] MEDS: hydrALAZINE HCL 10 MG TABLET PO SCH ×3 (06:31→22:03)
[2019-10-09] MEDS: INSULIN SLIDING SCALE (NOVOLOG) 1 VIAL SQ SCH ×4 (06:35→22:04)
[2019-10-09 09:14] LABS: HEMATOCRIT 26.1 % (32.4-45.2); HEMOGLOBIN 8.2 GM/dL (10.7-15.3); MCH 29.6 pg (25.7-33.7); MCHC 31.5 g/dl (32.0-36.0); MEAN CELL VOLUME 93.9 fl (80-96); MEAN PLT VOLUME 8.9 fl (7.5-11.1); PLATELET COUNT 107 K/MM3 (134-434); RBC 2.78 M/mm3 (3.60-5.2); RDW 20.3 % (11.6-15.6); WHITE BLOOD COUNT 15.1 K/mm3 (4.0-10.0)
[2019-10-09 09:42] LABS: CALCIUM 7.9 mg/dL (8.5-10.1); CREATININE 3.2 mg/dL (0.55-1.3); MAGNESIUM 2.1 mg/dL (1.8-2.4); PHOSPHOROUS 5.2 mg/dL (2.5-4.9); POTASSIUM 3.6 mmol/L (3.5-5.1)
[2019-10-09 11:08] LABS: BLOOD UREA NITROGEN 125.4 mg/dL (7-18)
[2019-10-09] MEDS: LACTOBACILLUS ACIDOPHILUS 1 TABLET PO SCH (11:28)
[2019-10-09] MEDS: APIXABAN 2.5 MG TABLET PO SCH ×2 (11:29→22:04)
[2019-10-09] MEDS: CARVEDILOL 25 MG TABLET (FP) PO SCH ×2 (11:29→22:04)
[2019-10-09] MEDS: POLYETHYLENE GLYCOL 3350 119 GM BTL PO SCH ×2 (11:30→22:02)
[2019-10-09] MEDS: PANTOPRAZOLE 40 MG TABLET PO SCH (11:30)
[2019-10-09] MEDS: SEVELAMER CARBONATE 800 MG TAB (FP) PO SCH ×3 (11:30→18:03)
[2019-10-09] MEDS: LETROZOLE 2.5 MG TABLET (FP) PO SCH (11:33)
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
[2019-10-09] MEDS: DOCUSATE SODIUM 100 MG CAPSULE (FP) PO SCH (22:03)
[2019-10-10] MEDS: NITROGLYCERIN 2% OINTMENT - 1GM PACKET TD SCH ×5 (01:02→23:40)
[2019-10-10] MEDS: INSULIN SLIDING SCALE (NOVOLOG) 1 VIAL SQ SCH ×4 (06:48→21:58)
[2019-10-10] MEDS: LEVOTHYROXINE NA 100 MCG TABLET (FP) PO SCH (07:19)
[2019-10-10] MEDS: hydrALAZINE HCL 10 MG TABLET PO SCH ×3 (07:23→21:58)
[2019-10-10] MEDS: FUROSEMIDE 40 MG/4 ML INJECTABLE VIAL IVPUSH SCH ×2 (07:26→14:27)
[2019-10-10] MEDS: SEVELAMER CARBONATE 800 MG TAB (FP) PO SCH ×3 (08:26→17:31)
[2019-10-10] MEDS ORDERED: PT OWN MED DRAWER 7, Y5N ONE ×3 (09:30→21:56)
[2019-10-10] MEDS: APIXABAN 2.5 MG TABLET PO SCH ×2 (10:04→21:58)
[2019-10-10] MEDS: CARVEDILOL 25 MG TABLET (FP) PO SCH ×2 (10:04→21:58)
[2019-10-10] MEDS: LACTOBACILLUS ACIDOPHILUS 1 TABLET PO SCH (10:04)
[2019-10-10] MEDS: PANTOPRAZOLE 40 MG TABLET PO SCH (10:04)
[2019-10-10] MEDS: LETROZOLE 2.5 MG TABLET (FP) PO SCH (10:05)
[2019-10-10] MEDS: POLYETHYLENE GLYCOL 3350 119 GM BTL PO SCH ×2 (10:05→21:53)
--- NOTE | 2019-10-10 10:50 | PN ---
Progress Note, Physician Chief Complaint: no sig change. Denies CP/SOB/palps - Current Medication List Current Medications: Active Medications Apixaban (Eliquis -) 2.5 mg PO BID [facility] Last Admin: 10/10/19 10:04 Dose: 2.5 mg Documented by: Carvedilol (Coreg -) 25 mg PO BID [facility] Last Admin: 10/10/19 10:04 Dose: Not Given Documented by: Docusate Sodium (Colace -) 300 mg PO HS [facility] Last Admin: 10/09/19 22:03 Dose: 300 mg Documented by: Furosemide (Lasix Injection -) 60 mg IVPUSH BIDLASIX [facility] Last Admin: 10/10/19 07:26 Dose: 60 mg Documented by: Hydralazine HCl (Apresoline -) 10 mg PO TID [facility] Last Admin: 10/10/19 07:23 Dose: Not Given Documented by: Insulin Aspart (Novolog Vial Sliding Scale -) 1 vial SQ [facility]; Protocol Last Admin: 10/10/19 06:48 Dose: Not Given Documented by: Lactobacillus Acidophilus (Bacid -) 1 tab PO DAILY [facility] Last Admin: 10/10/19 10:04 Dose: 1 tab Documented by: Letrozole (Femara -) 2.5 mg PO DAILY [facility] Last Admin: 10/10/19 10:05 Dose: 2.5 mg Documented by: Levothyroxine Sodium (Synthroid -) 100 mcg PO ACBK [facility] Last Admin: 10/10/19 07:19 Dose: 100 mcg Documented by: Nitroglycerin (Nitro-Bid 2% Paste -) 1 inch TD Q6HPO [facility] Last Admin: 10/10/19 07:24 Dose: 1 inch Documented by: Pantoprazole Sodium (Protonix -) 40 mg PO DAILY [facility] Last Admin: 10/10/19 10:04 Dose: 40 mg Documented by: Polyethylene Glycol (Miralax (For Daily Use) -) 17 gm PO BID [facility] Last Admin: 10/10/19 10:05 Dose: 17 gm Documented by: Sevelamer Carbonate (Renvela -) 800 mg PO TIDCM [facility] Last Admin: 10/10/19 08:26 Dose: 800 mg Documented by: - Objective Vital Signs: Vital Signs Temperature 98.7 F 10/10/19 10:00 Pulse Rate 98 H 10/10/19 10:00 Respiratory Rate 18 07/05/20 10:00 Blood Pressure 103/48 L 10/10/19 10:00 O2 Sat by Pulse Oximetry (%) 99 10/09/19 21:00 Constitutional: Yes: No Distress Eyes: Yes: Conjunctiva Clear Cardiovascular: Yes: Pulse Irregular Respiratory: Yes: Other (rales left base 1/3 up) Gastrointestinal: Yes: Soft (nt) Edema: Yes Edema: LLE: 2+, RLE: 2+ Neurological: Yes: Alert, Oriented Labs: CBC, BMP 10/09/19 07:30 10/09/19 07:30 INR, PTT INR 1.59 (0.83-1.09) H 10/01/19 08:18 Assessment/Plan IMP/REC: Acute diastolic heart failure exacerbation: remains edematous with rales - recent echo nl LV function - no signs acs - no reliable wts trend here - continue lasix, holding aldactone - lasix reduced to 60 mg IV BID - Was hoping to switch to PO Lasix this weekend but remains edematous and volume overloaded. Would like to actually increase lasix but limited by soft BPS and renal function - per d/w dr georges it is likely her renal fxn will not improve with effective diuresis - refused dialysis - cont nitrates for cardiorenal syndrome - palliative care is following, considering hospice, goals of care to be defined HTN: - bp stable/ at times lowish - cont current meds crow on CKD: - Baseline creat from last admission is 2-2.5, elevated now, likely cardiorenal - renal following PAF: -cont coreg for rate control -cont eliquis low dose (age, creatinine) liver mass: -heme/onc following anemia: -hgb 7s, stable, guaiac negative -? sec to CKD -per primary team, heme-onc
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
--- NOTE | 2019-10-10 18:40 | PN ---
Physical Exam: SUBJECTIVE: Patient seen and examined NAEON Denies SOB. Thinks BLE are still swollen OBJECTIVE: Vital Signs Period Temp Pulse Resp BP Sys/Hernandez Pulse Ox Last 24 Hr 97.8 F-99.6 F 95-111 18-18 103-132/43-62 93-99 GENERAL: NAD. Pleasant EYES: sclera anicteric, conjunctiva clear ENT: oropharynx clear without exudates, moist mucous membranes. NECK: Trachea midline, full range of motion, supple. LUNGS: Breath sounds equal, clear to auscultation bilaterally, no wheezes, no crackles, no accessory muscle use. HEART: Regular rate and rhythm, S1, S2 without murmur, rub or gallop. ABDOMEN: Soft, nontender, normoactive bowel sounds, no guarding, no rebound. EXTREMITIES: warm, well-perfused, 2+ pitting edema up to knees NEUROLOGICAL: normal speech Laboratory Results - last 24 hr 10/09/19 10/10/19 10/10/19 21:45 06:47 11:31 POC Glucometer 170 125 197 10/10/19 16:52 POC Glucometer 184 Active Medications Generic Name Dose Route Start Last Admin Trade Name Moiseq PRN Reason Stop Dose Admin Apixaban 2.5 mg 10/04/19 22:00 10/10/19 10:04 Eliquis - PO 2.5 mg BID AMRIT Administration Carvedilol 25 mg 10/01/19 10:00 10/10/19 10:04 Coreg - PO Not Given BID AMRIT Docusate Sodium 300 mg 10/01/19 22:00 10/09/19 22:03 Colace - PO 300 mg HS AMRIT Administration Furosemide 60 mg 10/06/19 10:17 10/10/19 14:27 Lasix Injection - IVPUSH 60 mg BIDLASIX AMRIT Administration Hydralazine HCl 10 mg 09/29/19 14:00 10/10/19 14:27 Apresoline - PO 10 mg TID AMRIT Administration Insulin Aspart 1 vial 10/01/19 07:00 10/10/19 11:59 Novolog Vial Sliding Scale - SQ 2 units ACHS AMRIT Administration Protocol Lactobacillus Acidophilus 1 tab 09/29/19 14:30 10/10/19 10:04 Bacid - PO 1 tab DAILY AMRIT Administration Letrozole 2.5 mg 10/01/19 10:00 10/10/19 10:05 Femara - PO 2.5 mg DAILY AMRIT Administration Levothyroxine Sodium 100 mcg 10/01/19 07:00 10/10/19 07:19 Synthroid - PO 100 mcg ACBK AMRIT Administration Nitroglycerin 1 inch 10/03/19 14:26 10/10/19 12:45 Nitro-Bid 2% Paste - TD 1 inch Q6HPO AMRIT Administration Pantoprazole Sodium 40 mg 10/01/19 10:00 10/10/19 10:04 Protonix - PO 40 mg DAILY AMRIT Administration Polyethylene Glycol 17 gm 10/01/19 10:00 10/10/19 10:05 Miralax (For Daily Use) - PO 17 gm BID AMRIT Administration Sevelamer Carbonate 800 mg 10/06/19 17:30 10/10/19 12:45 Renvela - PO 800 mg TIDCM AMRIT Administration ASSESSMENT/PLAN: 89F yo female with pmhx of diastolic CHF, a-fib (on Eliquis), CKD, breast cancer s/p mastectomy, myelodysplasia, IDDM type 2, hypothyroidism, HLD, CVA, and GERD presents with b/l leg swelling and nausea for "weeks" and back pain for several days admitted for acute CHF exacerbation. Acute on Chronic Diastolic CHF Exacerbation; -Daily weights, I/Os, 2gm Na diet w/ fluid restriction -Cardio consulted; currently on Lasix 60 BID IV -Cont O2 NC, currently on 2L intermittently -Repeat Echo (10/03) showed LV wnl, EF 55-60%, atria severely dilated, RV borderline in size and fxn, AV sclerotic, MV severe annular calcification, trace MR, mod to sev TR and sev pHTN, possible small pericardial effusion -Cardio Consult([facility]): --currently lasix 60mg IV BID, but hoping to incr PO lasix d/t continued edema. Dosage increases are limited by soft BPs and renal function ESBL UTI; No urinary symptoms -UCx +ESBL Kleb pneumo; repeat UCx +Group D strep/enterococcus -Per ID, sp Ertapenem 500 mg QD sp ZYVOX 600MG PO BID x3d New 4 cm L Hepatic Lobe lesion; in setting of hx of breast cancer and myelodysplasia -Onc consulted- Dr. Sullivan spoke to pt at length last week, and pt agrees to have breast cancer markers (CA 27,29) and colon cancer markers (CEA) (last colonoscopy was about 1 year ago and negative, so less likely from colon) instead of liver biopsy at this time; if findings are from breast ca, adjustments can be made to hormonal therapy -Per palliative care, goal is to be more comfortable, hospice would be appropriate if patient and family are in agreement. Will add Dilaudid 0.5 mg IV q6h PRN fo rpain Cont home meds: Letrozole 2.5 QD Stage 2 sacral ulcer; not infected -Santyl and bandage -Frequent turning and positioning -Dilaudid 0.5 mg Q6H PRN for pain Hyponatremia; likely 2/2 fluid overload. Resolved. -2gm Na diet w/ fluid restriction -IV diuresis -Renal consulted MAURICE on CKD; BUN/Cr worsening. -Hold amlodipine, hydralazine to allow for pressure drop and prevent h ypoperfusion from IV Lasix -serial BMPs to monitor Cr (baseline near 2) -Monitoring Phosphorus, currently 6.3, (5.0 on admission) -Per renal, pt and family do not want HD - F/u nephro recs for further Lasix today 10/07 Anemia; likely multi-factorial in setting of CKD, myelodysplasia, r/o GI bleed. s/p 1 dose of IV Venofer -Hbg usually 7-8 -During last admission, was seen by heme with recommendation for outpt workup -Transfuse PRN to maintain Hgb >7 -FOBT neg HTN; Stable. Cont home med: Carvedilol 25 BID. Per cardio, will cont rest of home meds when BP stable Generalized abdominal pain; 2/2 constipation vs. liver mass -Miralax 17 gm BID for constipation -QTc 484, try to avoid Zofran for nausea/vomiting Hypothyroidism; Cont home meds: Synthroid 100 Prophylaxis DVT: Cont home Eliquis 2.5 BID - Team spoke to cardiology on 10/05/ regarding patient's kidney function and Eliquis, Cardiology recommended to maintain eliquis as is. GI: Cont home Protonix 40 FEN -Fluid restriction -monitor Na, Cl, and Cr -sodium/diabetic diet Dispo -cont to monitor on med-surg - As per Psych Charlee: patient has capacity to make decision. - Palliative care will reassess GOC with patient - FULL CODE Visit type - Emergency Visit Emergency Visit: No - New Patient This patient is new to me today: Yes Date on this admission: 10/10/19 - Critical Care Critical Care patient: No ATTENDING PHYSICIAN STATEMENT I saw and evaluated the patient. I reviewed the resident's note and discussed the case with the resident. I agree with the resident's findings and plan as documented. SUBJECTIVE: OBJECTIVE: ASSESSMENT AND PLAN:
[2019-10-10] MEDS: DOCUSATE SODIUM 100 MG CAPSULE (FP) PO SCH (21:58)
[2019-10-11] MEDS: hydrALAZINE HCL 10 MG TABLET PO SCH ×3 (06:50→21:55)
[2019-10-11] MEDS: LEVOTHYROXINE NA 100 MCG TABLET (FP) PO SCH (06:50)
[2019-10-11] MEDS: FUROSEMIDE 40 MG/4 ML INJECTABLE VIAL IVPUSH SCH ×2 (06:50→13:16)
[2019-10-11] MEDS: INSULIN SLIDING SCALE (NOVOLOG) 1 VIAL SQ SCH ×4 (06:50→21:56)
[2019-10-11] MEDS ORDERED: PT OWN MED DRAWER 7, Y5N ONE (07:00)
[2019-10-11] MEDS: NITROGLYCERIN 2% OINTMENT - 1GM PACKET TD SCH ×4 (07:01→23:37)
[2019-10-11] MEDS: SEVELAMER CARBONATE 800 MG TAB (FP) PO SCH ×3 (08:56→17:25)
[2019-10-11] MEDS: POLYETHYLENE GLYCOL 3350 119 GM BTL PO SCH ×2 (09:01→22:18)
[2019-10-11] MEDS: LACTOBACILLUS ACIDOPHILUS 1 TABLET PO SCH (09:01)
[2019-10-11] MEDS: APIXABAN 2.5 MG TABLET PO SCH ×2 (09:01→21:55)
[2019-10-11] MEDS: PANTOPRAZOLE 40 MG TABLET PO SCH (09:01)
[2019-10-11] MEDS: LETROZOLE 2.5 MG TABLET (FP) PO SCH (09:01)
[2019-10-11] MEDS: CARVEDILOL 25 MG TABLET (FP) PO SCH ×2 (09:01→21:55)
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
[2019-10-11 10:40] LABS: BASO % 0.5 % (0-2.0); EOS % 7.2 % (0-4.5); HEMATOCRIT 24.3 % (32.4-45.2); HEMOGLOBIN 7.8 GM/dL (10.7-15.3); LYMPH % 7.2 % (8-40); MCH 30.3 pg (25.7-33.7); MEAN CELL VOLUME 94.8 fl (80-96); MEAN PLT VOLUME 8.3 fl (7.5-11.1); MONO % 8.3 % (3.8-10.2); NEUT % 76.8 % (42.8-82.8); PLATELET COUNT 83 K/MM3 (134-434); RBC 2.57 M/mm3 (3.60-5.2); RDW 20.5 % (11.6-15.6); WHITE BLOOD COUNT 14.4 K/mm3 (4.0-10.0)
[2019-10-11 10:59] LABS: CALCIUM 7.7 mg/dL (8.5-10.1); CREATININE 3.1 mg/dL (0.55-1.3); PHOSPHOROUS 4.8 mg/dL (2.5-4.9); POTASSIUM 3.2 mmol/L (3.5-5.1)
[2019-10-11 11:26] LABS: BLOOD UREA NITROGEN 121.7 mg/dL (7-18)
--- NOTE | 2019-10-11 12:29 | PN ---
Progress Note (short form) - Note Progress Note: Chief Complaint: sob History of Present Illness: no sob, le edema better, no cp, no palps; main complaint is back pain Current Medications Generic Name Dose Route Start Last Admin Trade Name Meena PRN Reason Stop Dose Admin Acetaminophen 650 mg 10/11/19 12:26 Tylenol - PO Q6H PRN PAIN LEVEL 6-10 Apixaban 2.5 mg 10/04/19 22:00 10/11/19 09:01 Eliquis - PO 2.5 mg BID AMRIT Administration Carvedilol 25 mg 10/01/19 10:00 10/11/19 09:01 Coreg - PO 25 mg BID AMRIT Administration Docusate Sodium 300 mg 10/01/19 22:00 10/10/19 21:58 Colace - PO 300 mg HS AMRIT Administration Furosemide 60 mg 10/06/19 10:17 10/11/19 06:50 Lasix Injection - IVPUSH 60 mg BIDLASIX AMRIT Administration Hydralazine HCl 10 mg 09/29/19 14:00 10/11/19 06:50 Apresoline - PO 10 mg TID AMRIT Administration Potassium Chloride 10 meq in 100 mls @ 100 mls/hr 10/11/19 12:30 Potassium Chloride 10 Meq Premix Ivpb - IVPB 10/11/19 13:29 Q60M AMRIT Insulin Aspart 1 vial 10/01/19 07:00 10/11/19 11:29 Novolog Vial Sliding Scale - SQ 2 units ACHS AMRIT Administration Protocol Lactobacillus Acidophilus 1 tab 09/29/19 14:30 10/11/19 09:01 Bacid - PO 1 tab DAILY AMRIT Administration Letrozole 2.5 mg 10/01/19 10:00 10/11/19 09:01 Femara - PO 2.5 mg DAILY AMRIT Administration Levothyroxine Sodium 100 mcg 10/01/19 07:00 10/11/19 06:50 Synthroid - PO 100 mcg ACBK AMRIT Administration Nitroglycerin 1 inch 10/03/19 14:26 10/11/19 07:01 Nitro-Bid 2% Paste - TD 1 inch Q6HPO AMRIT Administration Pantoprazole Sodium 40 mg 10/01/19 10:00 10/11/19 09:01 Protonix - PO 40 mg DAILY AMRIT Administration Polyethylene Glycol 17 gm 10/01/19 10:00 10/11/19 09:01 Miralax (For Daily Use) - PO 17 gm BID AMRIT Administration Potassium Chloride 20 meq 10/11/19 12:30 K-Dur - PO 10/11/19 16:31 Q4H AMRIT Sevelamer Carbonate 800 mg 10/06/19 17:30 10/11/19 08:56 Renvela - PO 800 mg TIDCM AMRIT Administration Vital Signs Period Temp Pulse Resp BP Sys/Hernandez Pulse Ox Last 24 Hr 97.5 F-99.6 F 88-111 18-20 111-136/52-65 94-98 Constitutional: Yes: No Distress, Calm Eyes: No: Sclera Icterus HENT: No: Nasal Congestion Cardiovascular: Yes: Pulse Irregular, JVD, S1, S2, Other (PMI non diplaced). No: Gallop, Murmur Respiratory: Yes: Regular, CTA Bilaterally. No: Accessory Muscle Use Gastrointestinal: Yes: Normal Bowel Sounds, Soft. No: Tenderness Extremities: No: Cold, Cyanosis Edema: 1+ le edema bl Integumentary: No: Jaundice Neurological: Yes: Alert, Oriented (x3) Psychiatric: No: Agitated Labs: CBC, BMP 10/11/19 09:18 10/11/19 06:00 Assessment/Plan echo 03/2019 nl LV function, mild MR, mild TR, PASP at least 49 mmHg IMP/REC: Acute diastolic heart failure exacerbation: - recent echo nl LV function - no signs acs - holding aldactone - cont lasix 60 mg IV BID - per d/w dr georges it is likely her renal fxn will not improve with effective diuresis - refused dialysis - cont nitrates for cardiorenal syndrome - palliative care is following, considering hospice HTN: - bp stable - cont current meds crow on CKD: - Baseline creat from last admission is 2-2.5, elevated now, likely cardiorenal - renal following PAF: -cont coreg for rate control -cont eliquis low dose (age, creatinine) liver mass: -heme/onc following anemia: -hgb 7s, stable -? sec to CKD -per primary team, heme-onc
[2019-10-11] MEDS ORDERED: KCL 10 MEQ IVPB 10 MEQ/100 ML INFUS.BAG IVPB SCH (12:30)
[2019-10-11 12:41] LABS: ANISOCYTOSIS 1+; MACROCYTOSIS 0; PLATELET ESTIMATE DECREASED
[2019-10-11] MEDS: ACETAMINOPHEN 325 MG TABLET (FP) PO PRN ×2 (13:15→23:36)
[2019-10-11] MEDS: POTASSIUM CHLORIDE TABS 20 MEQ TABLET.ER (FP) PO SCH ×2 (13:16→15:51)
--- NOTE | 2019-10-11 15:56 | PN ---
Progress Note, Physician History of Present Illness: Pt seen and examined at bedside. No great change in overall status. She feels that her breathing is comfortable. - Current Medication List Current Medications: Active Medications Acetaminophen (Tylenol -) 650 mg PO Q6H PRN PRN Reason: PAIN LEVEL 6-10 Last Admin: 10/11/19 13:15 Dose: 650 mg Documented by: Apixaban (Eliquis -) 2.5 mg PO BID COUNT INCLUDES THE [facility] Last Admin: 10/11/19 09:01 Dose: 2.5 mg Documented by: Carvedilol (Coreg -) 25 mg PO BID COUNT INCLUDES THE [facility] Last Admin: 10/11/19 09:01 Dose: 25 mg Documented by: Docusate Sodium (Colace -) 300 mg PO HS COUNT INCLUDES THE [facility] Last Admin: 10/10/19 21:58 Dose: 300 mg Documented by: Furosemide (Lasix Injection -) 60 mg IVPUSH BIDLASIX COUNT INCLUDES THE [facility] Last Admin: 10/11/19 13:16 Dose: 60 mg Documented by: Hydralazine HCl (Apresoline -) 10 mg PO TID COUNT INCLUDES THE [facility] Last Admin: 10/11/19 14:51 Dose: 10 mg Documented by: Insulin Aspart (Novolog Vial Sliding Scale -) 1 vial SQ ACHS COUNT INCLUDES THE [facility]; Protocol Last Admin: 10/11/19 15:51 Dose: 6 units Documented by: Lactobacillus Acidophilus (Bacid -) 1 tab PO DAILY COUNT INCLUDES THE [facility] Last Admin: 10/11/19 09:01 Dose: 1 tab Documented by: Letrozole (Femara -) 2.5 mg PO DAILY COUNT INCLUDES THE [facility] Last Admin: 10/11/19 09:01 Dose: 2.5 mg Documented by: Levothyroxine Sodium (Synthroid -) 100 mcg PO ACBK COUNT INCLUDES THE [facility] Last Admin: 10/11/19 06:50 Dose: 100 mcg Documented by: Nitroglycerin (Nitro-Bid 2% Paste -) 1 inch TD Q6HPO COUNT INCLUDES THE [facility] Last Admin: 10/11/19 12:51 Dose: 1 inch Documented by: Pantoprazole Sodium (Protonix -) 40 mg PO DAILY COUNT INCLUDES THE [facility] Last Admin: 10/11/19 09:01 Dose: 40 mg Documented by: Polyethylene Glycol (Miralax (For Daily Use) -) 17 gm PO BID COUNT INCLUDES THE [facility] Last Admin: 10/11/19 09:01 Dose: 17 gm Documented by: Potassium Chloride (K-Dur -) 20 meq PO Q4H COUNT INCLUDES THE [facility] Stop: 10/11/19 16:31 Last Admin: 10/11/19 15:51 Dose: 20 meq Documented by: Sevelamer Carbonate (Renvela -) 800 mg PO TIDCM AMRIT Last Admin: 10/11/19 13:16 Dose: 800 mg Documented by: - Objective Vital Signs: Vital Signs Temperature 97.8 F 10/11/19 10:00 Pulse Rate 88 10/11/19 10:00 Respiratory Rate 18 10/11/19 10:00 Blood Pressure 111/65 10/11/19 10:00 O2 Sat by Pulse Oximetry (%) 98 10/11/19 09:00 Constitutional: Yes: Calm Eyes: Yes: Conjunctiva Clear HENT: Yes: Atraumatic Cardiovascular: Yes: S1, S2 Respiratory: Yes: On Nasal O2 Gastrointestinal: Yes: Normal Bowel Sounds, Soft Genitourinary: Yes: Incontinence Musculoskeletal: Yes: WNL Edema: Yes Edema: LLE: 2+, RLE: 2+ Integumentary: Yes: Venous Stasis Changes Neurological: Yes: Oriented Psychiatric: Yes: Oriented Labs: CBC, BMP 10/11/19 09:18 10/11/19 06:00 INR, PTT INR 1.59 (0.83-1.09) H 10/01/19 08:18 Assessment/Plan Current Medications Generic Name Dose Route Start Last Admin Trade Name Moiseq PRN Reason Stop Dose Admin Acetaminophen 650 mg 10/11/19 12:26 10/11/19 13:15 Tylenol - PO 650 mg Q6H PRN Administration PAIN LEVEL 6-10 Apixaban 2.5 mg 10/04/19 22:00 10/11/19 09:01 Eliquis - PO 2.5 mg BID AMRIT Administration Carvedilol 25 mg 10/01/19 10:00 10/11/19 09:01 Coreg - PO 25 mg BID AMRIT Administration Docusate Sodium 300 mg 10/01/19 22:00 10/10/19 21:58 Colace - PO 300 mg HS AMRIT Administration Furosemide 60 mg 10/06/19 10:17 10/11/19 13:16 Lasix Injection - IVPUSH 60 mg BIDLASIX AMRIT Administration Hydralazine HCl 10 mg 09/29/19 14:00 10/11/19 14:51 Apresoline - PO 10 mg TID AMRIT Administration Insulin Aspart 1 vial 06/26/20 07:00 10/11/19 15:51 Novolog Vial Sliding Scale - SQ 6 units ACHS AMRIT Administration Protocol Lactobacillus Acidophilus 1 tab 09/29/19 14:30 10/11/19 09:01 Bacid - PO 1 tab DAILY AMRIT Administration Letrozole 2.5 mg 10/01/19 10:00 10/11/19 09:01 Femara - PO 2.5 mg DAILY AMRIT Administration Levothyroxine Sodium 100 mcg 10/01/19 07:00 10/11/19 06:50 Synthroid - PO 100 mcg ACBK AMRIT Administration Nitroglycerin 1 inch 10/03/19 14:26 10/11/19 12:51 Nitro-Bid 2% Paste - TD 1 inch Q6HPO AMRIT Administration Pantoprazole Sodium 40 mg 10/01/19 10:00 10/11/19 09:01 Protonix - PO 40 mg DAILY AMRIT Administration Polyethylene Glycol 17 gm 10/01/19 10:00 10/11/19 09:01 Miralax (For Daily Use) - PO 17 gm BID AMRIT Administration Potassium Chloride 20 meq 10/11/19 12:30 10/11/19 15:51 K-Dur - PO 10/11/19 16:31 20 meq Q4H AMRIT Administration Sevelamer Carbonate 800 mg 10/06/19 17:30 10/11/19 13:16 Renvela - PO 800 mg TIDCM AMRIT Administration Impression 1. proteinuria 2. hypothyroid 3. HTN 4. DM 5. fluid overload 6. breast cancer 7. anemia 8. CKD 9. CHF 10. hyponatremia 11. hypokalemia 12. MAURICE Plan - replace potassium - cont lasix - cont to monitor renal function - 2 gram sodium diet - volume status is marginally improved - will need to clarify GOC - cont sevelamer
[2019-10-11] MEDS ORDERED: POTASSIUM CHLORIDE TABS 20 MEQ TABLET.ER (FP) PO SCH (16:45)
--- NOTE | 2019-10-11 17:00 | PN ---
Progress Note (short form) - Note Progress Note: Palliative care f/up 89 y/o female with PMHx of diastolic CHF, a-fib (on Eliquis), CKD, breast cancer s/p left breast lumpectomy and radiation in 2013, myelodysplasia, IDDM type 2, hypothyroidism, HLD, CVA, and GERD who was admitted to [facility] 09/23 with constipation, SOB, b/l leg swelling and nausea for "weeks" and back pain for "several days." Elissa has been in and out of hospitals and nursing homes this past year and she has been bedbound since February of last year. A CT of the abdomen revealed a 4 cm L hepatic lobe hypodense lesion suspicious for metastatic disease as well as a 2.[address] enlargement and enlarged retroperitoneal nodes. Very elevated BNP and edematous- s/p aggressive diuresis with improvement in edema but worsening renal function. 2 hepatic masses seen on USG liver- 5.7 cm and 4 cm respectively. She has been seen by Haem- onc- cancer markers have been sent- presumed metastatic breast cancer- depending on test results there might be some modification in breast cancer hormonal treatment but pt is not a candidate for aggressive chemo/ sx/ radiation. She was also diagnosed with MDS/ AML or MPN as per haem- onc. Lumbar CT showed multilevel DJD, no neoplastic disease. HD has been recommended but patient has refused it but does not wish to consider hospice/ comfort care. VSS haemodynamically stable AAO x 3 NAD decreased appetite denies SOB irritable dependent for all ADLs, c/o generalized body ache LE 2+ edema today Prognosis guarded Patient has decided against HD She does not want hospice/ comfort care. She wants to have physical therapy. She states that she was walking till 6 weeks ago although she has been in and out of hospitals and rehab since last February. I have spoken to pt's daughter Marybeth Gonzalez. She herself would prefer that no further aggressive measures are taken. As per Marybeth Ms Singh is a fighter and has always had a zest for life and Marybeth cannot imagine that her mother will give up but understands that the decision is her Mom's and she would defer to it. Elissa wants to be full code. She does not want HD ( although now she states that her doctors dont think she needs it) - she would be appropriate for comfort/ hospice care given her multiple comorbidities, metastatic cancer, debilitated state with CHF and CKD approaching end stage, pressure ulcers. We discussed that because of her debility she will need 24 h nursing care. Would continue pain meds, diuretics. She will be appropriate for SNF on palliative care. Discussions ongoing. Problem List - Problems (1) Acute diastolic (congestive) heart failure Code(s): I50.31 - ACUTE DIASTOLIC (CONGESTIVE) HEART FAILURE (2) Acute kidney injury superimposed on CKD Code(s): N17.9 - ACUTE KIDNEY FAILURE, UNSPECIFIED; N18.9 - CHRONIC KIDNEY DISEASE, UNSPECIFIED (3) Breast cancer Code(s): C50.919 - MALIGNANT NEOPLASM OF UNSP SITE OF UNSPECIFIED FEMALE BREAST (4) History of CVA with residual deficit Code(s): I69.30 - UNSPECIFIED SEQUELAE OF CEREBRAL INFARCTION (5) Renal disease Code(s): N28.9 - DISORDER OF KIDNEY AND URETER, UNSPECIFIED
--- NOTE | 2019-10-11 17:42 | PATH ---
Surgical Pathology Report Patient Name: MACHO HASTINGS [facility]. Rec. #: [id number] /Age/Gender: 1930 (Age: 89) / F Account: [id number] Location: [address] [place] [address] Taken: 10/06/2019 Received: 10/06/2019 Reported: 10/11/2019 Physicians: Clint Crane M.D. 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 PHENOTYPE: Granulocytes are increased and exhibit immunophenotypic evidence of dyspoietic maturation including decreased expression of CD13, CD16 and CD11b. Myeloblasts comprise less than 0.1% of analyzed white blood cells Lymphocytes include polyclonal B cells, NK cells and immunophenotypically normal CD4+ and CD8+ T cells in normal proportions. No evidence of a clonal lymphoid expansion. Lymphocytes are proportionally decreased but include polyclonal B cells, NK cells and immunophenotypically normal CD4+ and CD8+ T cells in normal proportions. No evidence of a clonal lymphoid expansion. COMMENT: Clinical correlation is suggested. Additional Tests: Cytogenetics See Pathline report for additional details. Electronically Signed Archie Collins M.D. Addendum Reported: 10/19/2019 Addendum Diagnosis CYTOGENETIC KARYOTYPE ANALYSIS performed and interpreted at 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 All twenty analyzed metaphase cells displayed gain of one copy of chromosome 8. No normal cells were observed. This result is unchanged from the previous study (see specimen [id number]; reported 04/27/2019). Trisomy 8 is a common cytogenetic finding in myelodysplastic syndrome, acute myeloid leukemia, and myeloproliferative neoplasms. No other consistent numerical or structural chromosome abnormalities were observed. Subtle rearrangements or the presence of an aberrant clone in a low proportion of cells cannot be ruled out. Correlation with other clinical and hematologic data is suggested. See Pathline report for additional details ([id number]). Archie Collins M.D. Gross Description Received are 4 green top tubes of peripheral blood which are sent to [facility]. 10/06/2019 saudi10/06/2019
[2019-10-11] MEDS: DOCUSATE SODIUM 100 MG CAPSULE (FP) PO SCH (21:55)
[2019-10-12] MEDS: INSULIN SLIDING SCALE (NOVOLOG) 1 VIAL SQ SCH ×4 (06:21→23:35)
[2019-10-12] MEDS: FUROSEMIDE 40 MG/4 ML INJECTABLE VIAL IVPUSH SCH ×2 (06:25→15:25)
[2019-10-12] MEDS: hydrALAZINE HCL 10 MG TABLET PO SCH ×3 (06:25→23:35)
[2019-10-12] MEDS: LEVOTHYROXINE NA 100 MCG TABLET (FP) PO SCH (06:25)
[2019-10-12] MEDS: NITROGLYCERIN 2% OINTMENT - 1GM PACKET TD SCH ×3 (06:32→17:33)
[2019-10-12 08:19] LABS: HEMATOCRIT 24.6 % (32.4-45.2); HEMOGLOBIN 7.8 GM/dL (10.7-15.3); MCH 30.2 pg (25.7-33.7); MCHC 31.6 g/dl (32.0-36.0); MEAN CELL VOLUME 95.4 fl (80-96); PLATELET COUNT 81 K/MM3 (134-434); RBC 2.58 M/mm3 (3.60-5.2); RDW 20.6 % (11.6-15.6); WHITE BLOOD COUNT 15.1 K/mm3 (4.0-10.0)
[2019-10-12 08:38] LABS: CREATININE 2.9 mg/dL (0.55-1.3); PHOSPHOROUS 4.5 mg/dL (2.5-4.9); POTASSIUM 3.7 mmol/L (3.5-5.1)
[2019-10-12 08:41] LABS: BLOOD UREA NITROGEN 124.3 mg/dL (7-18)
[2019-10-12] MEDS ORDERED: PT OWN MED DRAWER 7, Y5N ONE ×4 (09:11→17:19)
[2019-10-12] MEDS: APIXABAN 2.5 MG TABLET PO SCH ×2 (09:29→23:35)
[2019-10-12] MEDS: LACTOBACILLUS ACIDOPHILUS 1 TABLET PO SCH (09:29)
[2019-10-12] MEDS: CARVEDILOL 25 MG TABLET (FP) PO SCH ×2 (09:29→23:35)
[2019-10-12] MEDS: SEVELAMER CARBONATE 800 MG TAB (FP) PO SCH ×3 (09:29→17:34)
[2019-10-12] MEDS: PANTOPRAZOLE 40 MG TABLET PO SCH (09:29)
[2019-10-12] MEDS: POLYETHYLENE GLYCOL 3350 119 GM BTL PO SCH (11:51)
[2019-10-12] MEDS: LETROZOLE 2.5 MG TABLET (FP) PO SCH (11:51)
--- NOTE | 2019-10-12 13:30 | PN ---
Progress Note (short form) - Note Progress Note: cc: sob s: sleeping comfortably, not rousable, no overnight events Current Medications Generic Name Dose Route Start Last Admin Trade Name Freadin PRN Reason Stop Dose Admin Acetaminophen 650 mg 10/11/19 12:26 10/11/19 23:36 Tylenol - PO 650 mg Q6H PRN Administration PAIN LEVEL 6-10 Apixaban 2.5 mg 10/04/19 22:00 10/12/19 09:29 Eliquis - PO 2.5 mg BID AMRIT Administration Carvedilol 25 mg 10/01/19 10:00 10/12/19 09:29 Coreg - PO 25 mg BID AMRIT Administration Docusate Sodium 300 mg 10/01/19 22:00 10/11/19 21:55 Colace - PO 300 mg HS AMRIT Administration Furosemide 60 mg 10/06/19 10:17 10/12/19 06:25 Lasix Injection - IVPUSH 60 mg BIDLASIX AMRIT Administration Hydralazine HCl 10 mg 09/29/19 14:00 10/12/19 06:25 Apresoline - PO 10 mg TID AMRIT Administration Insulin Aspart 1 vial 10/01/19 07:00 10/12/19 12:16 Novolog Vial Sliding Scale - SQ 4 units ACHS AMRIT Administration Protocol Lactobacillus Acidophilus 1 tab 09/29/19 14:30 10/12/19 09:29 Bacid - PO 1 tab DAILY AMRIT Administration Letrozole 2.5 mg 10/01/19 10:00 10/12/19 11:51 Femara - PO 2.5 mg DAILY AMRIT Administration Levothyroxine Sodium 100 mcg 10/01/19 07:00 10/12/19 06:25 Synthroid - PO 100 mcg ACBK AMRIT Administration Nitroglycerin 1 inch 10/03/19 14:26 10/12/19 12:17 Nitro-Bid 2% Paste - TD 1 inch Q6HPO AMRIT Administration Pantoprazole Sodium 40 mg 10/01/19 10:00 10/12/19 09:29 Protonix - PO 40 mg DAILY AMRIT Administration Polyethylene Glycol 17 gm 10/01/19 10:00 10/12/19 11:51 Miralax (For Daily Use) - PO Not Given BID AMRIT Sevelamer Carbonate 800 mg 10/06/19 17:30 10/12/19 12:17 Renvela - PO 800 mg TIDCM AMRIT Administration Vital Signs Period Temp Pulse Resp BP Sys/Hernandez Pulse Ox Last 24 Hr 97.9 F-98.6 F 91-104 18-18 121-132/50-78 98 Constitutional: Yes: No Distress, Calm Eyes: No: Sclera Icterus HENT: No: Nasal Congestion Cardiovascular: Yes: Pulse Irregular, JVD, S1, S2, Other (PMI non diplaced). No: Gallop, Murmur Respiratory: Yes: Regular, CTA Bilaterally. No: Accessory Muscle Use Gastrointestinal: Yes: Normal Bowel Sounds, Soft. No: Tenderness Extremities: No: Cold, Cyanosis Edema: 1+ le edema bl Integumentary: No: Jaundice Neurological: Yes: Alert, Oriented (x3) Psychiatric: No: Agitated Assessment/Plan echo 03/2019 nl LV function, mild MR, mild TR, PASP at least 49 mmHg IMP/REC: Acute diastolic heart failure exacerbation: - recent echo nl LV function - no signs acs - holding aldactone - cont lasix 60 mg IV BID - per d/w dr georges it is likely her renal fxn will not improve with effective diuresis - refused dialysis - cont nitrates for cardiorenal syndrome - palliative care is following, considering hospice HTN: - bp stable - cont current meds crow on CKD: - Baseline creat from last admission is 2-2.5, elevated now, likely cardiorenal - renal following PAF: -cont coreg for rate control -cont eliquis low dose (age, creatinine) liver mass: -heme/onc following anemia: -hgb 7s, stable -? sec to CKD -per primary team, heme-onc
--- NOTE | 2019-10-12 18:41 | PN ---
Physical Exam: SUBJECTIVE: Patient seen and examined bedside, in no acute distress. No acute events overnight. OBJECTIVE: Vital Signs Vital Signs - 8 hr 10/12/19 10/12/19 11:45 14:39 Temperature 98.5 F 98.4 F Pulse Rate 100 H 103 H Respiratory 19 19 Rate Blood Pressure 121/57 L 125/66 GENERAL: The patient is awake, alert, and oriented, in no acute distress. LUNGS: Breath sounds equal, clear to auscultation bilaterally HEART: Regular rate and rhythm ABDOMEN: Soft, nontender, nondistended,. EXTREMITIES: BL + 1 pitting edema on ankles, overall leg edema continuing to improve. Sacral decubitus ulcer stage 2, no purulent discharge noted. Laboratory Results - last 24 hr 10/11/19 10/12/19 10/12/19 21:54 06:14 06:55 WBC 15.1 H RBC 2.58 L Hgb 7.8 L Hct 24.6 L MCV 95.4 MCH 30.2 MCHC 31.6 L RDW 20.6 H Plt Count 81 L MPV 9.0 Sodium Potassium Chloride Carbon Dioxide Anion Gap BUN Creatinine Est GFR (CKD-EPI)AfAm Est GFR (CKD-EPI)NonAf POC Glucometer 229 144 Random Glucose Calcium Phosphorus Magnesium 10/12/19 10/12/19 10/12/19 06:55 12:14 17:14 WBC RBC Hgb Hct MCV MCH MCHC RDW Plt Count MPV Sodium 138 Potassium 3.7 Chloride 102 Carbon Dioxide 24 Anion Gap 12 BUN 124.3 H* Creatinine 2.9 H Est GFR (CKD-EPI)AfAm 15.97 Est GFR (CKD-EPI)NonAf 13.78 POC Glucometer 222 221 Random Glucose 143 H Calcium 8.0 L Phosphorus 4.5 Magnesium 2.0 Active Medications Generic Name Dose Route Start Last Admin Trade Name Freq PRN Reason Stop Dose Admin Acetaminophen 650 mg 10/11/19 12:26 10/11/19 23:36 Tylenol - PO 650 mg Q6H PRN Administration PAIN LEVEL 6-10 Apixaban 2.5 mg 10/04/19 22:00 10/12/19 09:29 Eliquis - PO 2.5 mg BID AMRIT Administration Carvedilol 25 mg 10/01/19 10:00 10/12/19 09:29 Coreg - PO 25 mg BID AMRIT Administration Docusate Sodium 300 mg 10/01/19 22:00 10/11/19 21:55 Colace - PO 300 mg HS AMRIT Administration Furosemide 60 mg 10/06/19 10:17 10/12/19 15:25 Lasix Injection - IVPUSH 60 mg BIDLASIX AMRIT Administration Hydralazine HCl 10 mg 09/29/19 14:00 10/12/19 15:25 Apresoline - PO 10 mg TID AMRIT Administration Insulin Aspart 1 vial 10/01/19 07:00 10/12/19 17:15 Novolog Vial Sliding Scale - SQ 4 units ACHS AMRIT Administration Protocol Lactobacillus Acidophilus 1 tab 09/29/19 14:30 10/12/19 09:29 Bacid - PO 1 tab DAILY AMRIT Administration Letrozole 2.5 mg 10/01/19 10:00 10/12/19 11:51 Femara - PO 2.5 mg DAILY AMRIT Administration Levothyroxine Sodium 100 mcg 10/01/19 07:00 10/12/19 06:25 Synthroid - PO 100 mcg ACBK AMRIT Administration Nitroglycerin 1 inch 10/03/19 14:26 10/12/19 17:33 Nitro-Bid 2% Paste - TD 1 inch Q6HPO AMRIT Administration Pantoprazole Sodium 40 mg 10/01/19 10:00 10/12/19 09:29 Protonix - PO 40 mg DAILY AMRIT Administration Polyethylene Glycol 17 gm 10/01/19 10:00 10/12/19 11:51 Miralax (For Daily Use) - PO Not Given BID AMRIT Sevelamer Carbonate 800 mg 10/06/19 17:30 10/12/19 17:34 Renvela - PO 800 mg TIDCM AMRIT Administration ASSESSMENT/PLAN: 89F yo female with pmhx of diastolic CHF, a-fib (on Eliquis), CKD, breast cancer s/p mastectomy, myelodysplasia, IDDM type 2, hypothyroidism, HLD, CVA, and GERD presents with b/l leg swelling and nausea for "weeks" and back pain for several days admitted for acute CHF exacerbation. Acute on Chronic Diastolic CHF Exacerbation; -Daily weights, I/Os, 2gm Na diet w/ fluid restriction -Cardio consulted; currently on Lasix 80 BID IV -Cont O2 NC, currently on 2L intermittently -Repeat Echo (10/03) showed LV wnl, EF 55-60%, atria severely dilated, RV borderline in size and fxn, AV sclerotic, MV severe annular calcification, trace MR, mod to sev TR and sev pHTN, possible small pericardial effusion -F/u cardio recs New 4 cm L Hepatic Lobe lesion; in setting of hx of breast cancer and myelodysplasia -Onc consulted- Dr. Sullivan CA 27-[address] Alvarado will be called about adjustments can be made to hormonal therapy ([phone]) Cont home meds: Letrozole 2.5 QD Stage 2 sacral ulcer; not infected -Santyl and bandage -Frequent turning and positioning -Dilaudid 0.5 mg Q6H PRN for pain MAURICE on CKD; BUN/Cr worsening. -Hold amlodipine, hydralazine to allow for pressure drop and prevent hypoperfusion from IV Lasix -serial BMPs to monitor Cr (baseline near 2) - Phosphorus has normalized - Per renal, pt and family do not want HD - Nephro recs - continue to give lasix ESBL UTI; - resolved No urinary symptoms -UCx +ESBL Kleb pneumo; repeat UCx +Group D strep/enterococcus -Per ID, Ertapenem 500 mg QD completed today. Started on ZYVOX 600MG PO BID X 3D completed Hyponatremia; likely 2/2 fluid overload. Resolved. -2gm Na diet w/ fluid restriction -IV diuresis -Renal consulted Anemia; likely multi-factorial in setting of CKD, myelodysplasia -Transfuse PRN to maintain Hgb >7 Generalized abdominal pain; 2/2 constipation vs. liver mass -Miralax 17 gm BID for constipation -QTc 484, try to avoid Zofran for nausea/vomiting Hypothyroidism; Cont home meds: Synthroid 100 Prophylaxis DVT: Cont home Eliquis 2.5 BID - Team spoke to cardiology on 10/05/ regarding sunday sigala's kidney function and Eliquis, Cardiology recommended to maintain eliquis as is. GI: Cont home Protonix 40 FEN -Fluid restriction -monitor Na, Cl, and Cr -sodium/diabetic diet Dispo -cont to monitor on med-surg - As per Psych Charlee: patient has capacity to make decision. - Palliative care will reassess GOC with patient - FULL CODE Visit type - Emergency Visit Emergency Visit: Yes ED Registration Date: 06/19/20 Care time: The patient presented to the Emergency Department on the above date and was hospitalized for further evaluation of their emergent condition. - New Patient This patient is new to me today: No - Critical Care Critical Care patient: No - Discharge Referral [facility]erred to [facility] Med P.C[facility] No ATTENDING PHYSICIAN STATEMENT I saw and evaluated the patient. I reviewed the resident's note and discussed the case with the resident. I agree with the resident's findings and plan as documented. SUBJECTIVE: OBJECTIVE: ASSESSMENT AND PLAN:
--- NOTE | 2019-10-12 19:02 | PN ---
Progress Note, Physician History of Present Illness: Pt seen and examined at bedside. She appears comfortable. She feels that her breathing is comfortable. - Current Medication List Current Medications: Active Medications Acetaminophen (Tylenol -) 650 mg PO Q6H PRN PRN Reason: PAIN LEVEL 6-10 Last Admin: 10/11/19 23:36 Dose: 650 mg Documented by: Apixaban (Eliquis -) 2.5 mg PO BID [facility] Last Admin: 10/12/19 09:29 Dose: 2.5 mg Documented by: Carvedilol (Coreg -) 25 mg PO BID [facility] Last Admin: 10/12/19 09:29 Dose: 25 mg Documented by: Docusate Sodium (Colace -) 300 mg PO HS [facility] Last Admin: 10/11/19 21:55 Dose: 300 mg Documented by: Furosemide (Lasix Injection -) 60 mg IVPUSH BIDLASIX [facility] Last Admin: 10/12/19 15:25 Dose: 60 mg Documented by: Hydralazine HCl (Apresoline -) 10 mg PO TID [facility] Last Admin: 10/12/19 15:25 Dose: 10 mg Documented by: Insulin Aspart (Novolog Vial Sliding Scale -) 1 vial SQ ACHS [facility]; Protocol Last Admin: 10/12/19 17:15 Dose: 4 units Documented by: Lactobacillus Acidophilus (Bacid -) 1 tab PO DAILY [facility] Last Admin: 10/12/19 09:29 Dose: 1 tab Documented by: Letrozole (Femara -) 2.5 mg PO DAILY [facility] Last Admin: 10/12/19 11:51 Dose: 2.5 mg Documented by: Levothyroxine Sodium (Synthroid -) 100 mcg PO ACBK [facility] Last Admin: 10/12/19 06:25 Dose: 100 mcg Documented by: Nitroglycerin (Nitro-Bid 2% Paste -) 1 inch TD Q6HPO [facility] Last Admin: 10/12/19 17:33 Dose: 1 inch Documented by: Pantoprazole Sodium (Protonix -) 40 mg PO DAILY [facility] Last Admin: 10/12/19 09:29 Dose: 40 mg Documented by: Polyethylene Glycol (Miralax (For Daily Use) -) 17 gm PO BID [facility] Last Admin: 10/12/19 11:51 Dose: Not Given Documented by: Sevelamer Carbonate (Renvela -) 800 mg PO TIDCM [facility] Last Admin: 10/12/19 17:34 Dose: 800 mg Documented by: - Objective Vital Signs: Vital Signs Temperature 98.4 F 10/12/19 14:39 Pulse Rate 103 H 10/12/19 14:39 Respiratory Rate 19 10/12/19 14:39 Blood Pressure 125/66 10/12/19 14:39 O2 Sat by Pulse Oximetry (%) 99 10/12/19 09:00 Constitutional: Yes: Calm Eyes: Yes: Conjunctiva Clear HENT: Yes: Atraumatic Neck: Yes: Supple Cardiovascular: Yes: S1, S2 Respiratory: Yes: CTA Bilaterally Gastrointestinal: Yes: Soft Genitourinary: Yes: Incontinence Musculoskeletal: Yes: Muscle Weakness Edema: Yes Edema: LLE: 1+, RLE: 1+ Neurological: Yes: Oriented Psychiatric: Yes: Oriented Labs: CBC, BMP 10/12/19 06:55 10/12/19 06:55 INR, PTT INR 1.59 (0.83-1.09) H 10/01/19 08:18 Assessment/Plan Current Medications Generic Name Dose Route Start Last Admin Trade Name Meena PRN Reason Stop Dose Admin Acetaminophen 650 mg 10/11/19 12:26 10/11/19 23:36 Tylenol - PO 650 mg Q6H PRN Administration PAIN LEVEL 6-10 Apixaban 2.5 mg 10/04/19 22:00 10/12/19 09:29 Eliquis - PO 2.5 mg BID AMRIT Administration Carvedilol 25 mg 10/01/19 10:00 10/12/19 09:29 Coreg - PO 25 mg BID AMRIT Administration Docusate Sodium 300 mg 10/01/19 22:00 10/11/19 21:55 Colace - PO 300 mg HS AMRIT Administration Furosemide 60 mg 10/06/19 10:17 10/12/19 15:25 Lasix Injection - IVPUSH 60 mg BIDLASIX AMRIT Administration Hydralazine HCl 10 mg 09/29/19 14:00 10/12/19 15:25 Apresoline - PO 10 mg TID AMRIT Administration Insulin Aspart 1 vial 10/01/19 07:00 10/12/19 17:15 Novolog Vial Sliding Scale - SQ 4 units ACHS AMRIT Administration Protocol Lactobacillus Acidophilus 1 tab 09/29/19 14:30 07/07/20 09:29 Bacid - PO 1 tab DAILY AMRIT Administration Letrozole 2.5 mg 10/01/19 10:00 10/12/19 11:51 Femara - PO 2.5 mg DAILY AMRIT Administration Levothyroxine Sodium 100 mcg 10/01/19 07:00 10/12/19 06:25 Synthroid - PO 100 mcg ACBK AMRIT Administration Nitroglycerin 1 inch 10/03/19 14:26 10/12/19 17:33 Nitro-Bid 2% Paste - TD 1 inch Q6HPO AMRIT Administration Pantoprazole Sodium 40 mg 10/01/19 10:00 10/12/19 09:29 Protonix - PO 40 mg DAILY AMRIT Administration Polyethylene Glycol 17 gm 10/01/19 10:00 10/12/19 11:51 Miralax (For Daily Use) - PO Not Given BID AMRIT Sevelamer Carbonate 800 mg 10/06/19 17:30 10/12/19 17:34 Renvela - PO 800 mg TIDCM AMRIT Administration Impression 1. proteinuria 2. hypothyroid 3. HTN 4. DM 5. fluid overload 6. breast cancer 7. anemia 8. CKD 9. CHF 10. hyponatremia 11. hypokalemia 12. 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
--- NOTE | 2019-10-12 19:39 | PN ---
Teaching Attending Note Name of Resident: Terry Rosario ATTENDING PHYSICIAN STATEMENT I saw and evaluated the patient. I reviewed the resident's note and discussed the case with the resident. I agree with the resident's findings and plan as documented. SUBJECTIVE: No fever or chills. generalized aches and pains. SOB is better , worse with lying down OBJECTIVE: NAD, awake, alert CV: RRR Lungs: very minimal bibasilar crackles Abd: soft,ND, NT Ext: trace edema , on legs. skin : stage 2 decub ulcers on sacral area slightly extending to b/l upper buttock cheeks. ( small ulcers ) no discharge , surrounding blanching erythema. ASSESSMENT AND PLAN: 89 y/o lady with h/o diastolic CHF, a-fib (on Eliquis), CKD, breast cancer s/p mastectomy, myelodysplasia, IDDM type 2, hypothyroidism, HLD, CVA, and GERD who presented with SOB adn LE edema and was diagnosed with D CHF exacerbation Acute on chronic diastolic heart failure ESBL producing Klebsiealla complicated UTI/pyelonephritis MAURICE on CKD Liver mass retroperitoneal LAP b/l adrenal nodules h/o MDS chronic normocytic anemia leukocytosis prolonged QTC hyponatremia high AG metabolic acidosis :resolved prolonged QTC h/o A fib Stage 2 sacral decubiti Plan: - cont lasix . hopefuly can switch to po soon - finished a course of Abx - Liver Bx deferred. - Tumor markers reviewed. will reach out to heme fro interpretation and Recs - follow tumor markers - Bone scan was declined by patient - cont eliqis - cont coreg - cont bowel regimen - frequent turning. reorder air mattress - cont femara
[2019-10-12] MEDS: DOCUSATE SODIUM 100 MG CAPSULE (FP) PO SCH (23:35)
[2019-10-13] MEDS: POLYETHYLENE GLYCOL 3350 119 GM BTL PO SCH ×3 (00:52→21:55)
[2019-10-13] MEDS ORDERED: PT OWN MED DRAWER 7, Y5N ONE ×4 (00:58→17:14)
[2019-10-13] MEDS: NITROGLYCERIN 2% OINTMENT - 1GM PACKET TD SCH ×4 (01:21→17:56)
[2019-10-13] MEDS: LEVOTHYROXINE NA 100 MCG TABLET (FP) PO SCH (06:44)
[2019-10-13] MEDS: ACETAMINOPHEN 325 MG TABLET (FP) PO PRN ×2 (06:44→21:47)
[2019-10-13] MEDS: hydrALAZINE HCL 10 MG TABLET PO SCH ×3 (06:44→21:46)
[2019-10-13] MEDS: FUROSEMIDE 40 MG/4 ML INJECTABLE VIAL IVPUSH SCH ×2 (06:45→14:11)
[2019-10-13] MEDS: INSULIN SLIDING SCALE (NOVOLOG) 1 VIAL SQ SCH ×4 (06:55→21:48)
[2019-10-13] MEDS: SEVELAMER CARBONATE 800 MG TAB (FP) PO SCH ×3 (07:59→16:57)
[2019-10-13 09:19] LABS: BASO % 0.8 % (0-2.0); EOS % 9.7 % (0-4.5); HEMATOCRIT 23.8 % (32.4-45.2); HEMOGLOBIN 7.4 GM/dL (10.7-15.3); LYMPH % 7.5 % (8-40); MCH 29.2 pg (25.7-33.7); MEAN CELL VOLUME 94.4 fl (80-96); MEAN PLT VOLUME 8.1 fl (7.5-11.1); MONO % 7.8 % (3.8-10.2); NEUT % 74.2 % (42.8-82.8); PLATELET COUNT 68 K/MM3 (134-434); RBC 2.52 M/mm3 (3.60-5.2); RDW 20.4 % (11.6-15.6); WHITE BLOOD COUNT 15.7 K/mm3 (4.0-10.0)
[2019-10-13 09:59] LABS: POTASSIUM 3.6 mmol/L (3.5-5.1)
[2019-10-13] MEDS: CARVEDILOL 25 MG TABLET (FP) PO SCH ×2 (10:02→21:47)
[2019-10-13] MEDS: PANTOPRAZOLE 40 MG TABLET PO SCH (10:02)
[2019-10-13] MEDS: LACTOBACILLUS ACIDOPHILUS 1 TABLET PO SCH (10:02)
[2019-10-13] MEDS: APIXABAN 2.5 MG TABLET PO SCH ×2 (10:02→21:47)
[2019-10-13 10:06] LABS: BILIRUBIN,TOTAL 0.4 mg/dL (0.2-1); CALCIUM 7.8 mg/dL (8.5-10.1); CREATININE 2.9 mg/dL (0.55-1.3); MAGNESIUM 1.7 mg/dL (1.8-2.4); PHOSPHOROUS 3.6 mg/dL (2.5-4.9); TOT PROT 6.3 g/dl (6.4-8.2)
[2019-10-13] MEDS: LETROZOLE 2.5 MG TABLET (FP) PO SCH (10:09)
[2019-10-13 10:23] LABS: BLOOD UREA NITROGEN 112.2 mg/dL (7-18)
[2019-10-13] MEDS ORDERED: INSULIN (NOVOLOG) ASPART 100 UNITS/ML 10ML VIAL ONE ×2 (11:19→18:12)
--- NOTE | 2019-10-13 12:33 | PN ---
Progress Note (short form) - Note Progress Note: cc: sob s: no chest pain, palps, dizziness. stable dyspnea, edema Current Medications Generic Name Dose Route Start Last Admin Trade Name Freadin PRN Reason Stop Dose Admin Acetaminophen 650 mg 10/11/19 12:26 10/13/19 06:44 Tylenol - PO 650 mg Q6H PRN Administration PAIN LEVEL 6-10 Apixaban 2.5 mg 10/04/19 22:00 10/13/19 10:02 Eliquis - PO 2.5 mg BID AMRIT Administration Carvedilol 25 mg 10/01/19 10:00 10/13/19 10:02 Coreg - PO 25 mg BID AMRIT Administration Docusate Sodium 300 mg 10/01/19 22:00 10/12/19 23:35 Colace - PO 300 mg HS AMRIT Administration Furosemide 60 mg 10/06/19 10:17 10/13/19 06:45 Lasix Injection - IVPUSH 60 mg BIDLASIX AMRIT Administration Hydralazine HCl 10 mg 09/29/19 14:00 10/13/19 06:44 Apresoline - PO 10 mg TID AMRIT Administration Insulin Aspart 1 vial 10/01/19 07:00 10/13/19 11:42 Novolog Vial Sliding Scale - SQ 4 units ACHS AMRIT Administration Protocol Lactobacillus Acidophilus 1 tab 09/29/19 14:30 10/13/19 10:02 Bacid - PO 1 tab DAILY AM[facility]IT Administration Letrozole 2.5 mg 10/01/19 10:00 10/13/19 10:09 Femara - PO 2.5 mg DAILY [facility]IT Administration Levothyroxine Sodium 100 mcg 10/01/19 07:00 10/13/19 06:44 Synthroid - PO 100 mcg ACBK [facility]IT Administration Nitroglycerin 1 inch 10/03/19 14:26 10/13/19 11:32 Nitro-Bid 2% Paste - TD 1 inch Q6HPO [facility]IT Administration Pantoprazole Sodium 40 mg 10/01/19 10:00 10/13/19 10:02 Protonix - PO 40 mg DAILY [facility]IT Administration Polyethylene Glycol 17 gm 10/01/19 10:00 10/13/19 10:05 Miralax (For Daily Use) - PO 17 grams BID [facility]IT Administration Sevelamer Carbonate 800 mg 10/06/19 17:30 10/13/19 11:32 Renvela - PO 800 mg TIDCM [facility]IT Administration Vital Signs Period Temp Pulse Resp BP Sys/Hernandez Pulse Ox Last 24 Hr 98 F-99.6 F 94-111 18-20 114-146/1-76 98-100 Constitutional: Yes: No Distress, Calm Eyes: No: Sclera Icterus HENT: No: Nasal Congestion Cardiovascular: Yes: Pulse Irregular, JVD, S1, S2, Other (PMI non diplaced). No: Gallop, Murmur Respiratory: Yes: Regular, CTA Bilaterally. No: Accessory Muscle Use Gastrointestinal: Yes: Normal Bowel Sounds, Soft. No: Tenderness Extremities: No: Cold, Cyanosis Edema: 1+ le edema bl Integumentary: No: Jaundice Neurological: Yes: Alert, Oriented (x3) Psychiatric: No: Agitated Assessment/Plan echo 03/2019 nl LV function, mild MR, mild TR, PASP at least 49 mmHg IMP/REC: Acute diastolic heart failure exacerbation: - recent echo nl LV function - no signs acs - holding aldactone - cont lasix 60 mg IV BID - Cr stable - per d/w dr georges it is likely her renal fxn will not improve with effective diuresis - refused dialysis - cont nitrates for cardiorenal syndrome - palliative care is following HTN: - bp stable - cont current meds crow on CKD: - Baseline creat from last admission is 2-2.5, elevated now, likely cardiorenal - renal following PAF: -cont coreg for rate control -cont eliquis low dose (age, creatinine) liver mass: -heme/onc following anemia: -hgb 7s, stable -? sec to CKD -per primary team, heme-onc
[2019-10-13 13:19] LABS: ANISOCYTOSIS 0; MACROCYTOSIS 0; PLATELET ESTIMATE DECREASED
[2019-10-13] MEDS: LIDOCAINE 5% TOPICAL PATCH TP SCH (16:53)
--- NOTE | 2019-10-13 18:18 | PN ---
Teaching Attending Note Name of Resident: Shaq White ATTENDING PHYSICIAN STATEMENT I saw and evaluated the patient. I reviewed the resident's note and discussed the case with the resident. I agree with the resident's findings and plan as documented. SUBJECTIVE: No fever or chills. no SOB, aches in all the body. no CABRALES . OBJECTIVE: NAD, awake, alert CV: RRR Lungs: CTAB Abd: soft,ND, NT Ext: trace edema , on legs. skin : decub was not examined today ASSESSMENT AND PLAN: 89 y/o lady with h/o diastolic CHF, a-fib (on Eliquis), CKD, breast cancer s/p mastectomy, myelodysplasia, IDDM type 2, hypothyroidism, HLD, CVA, and GERD who presented with SOB adn LE edema and was diagnosed with D CHF exacerbation Acute on chronic diastolic heart failure ESBL producing Klebsiealla complicated UTI/pyelonephritis MAURICE on CKD Liver mass retroperitoneal LAP b/l adrenal nodules h/o MDS chronic normocytic anemia leukocytosis prolonged QTC hyponatremia high AG metabolic acidosis :resolved prolonged QTC h/o A fib Stage 2 sacral decubiti Plan: - d/w Dr. Jordan, will switch to po lasix today. give 60 BID - finished a course of Abx - Liver Bx deferred. - Tumor markers reviewed. team d/w Dr. Reynaga who deferred to primary treating sill worker. Dr. Sullivan was not able to be reached - cont eliqis - cont coreg - cont bowel regimen - frequent turning. air mattress ordered . - cont femara patietn is ready for dc patient is not willing to go back to [facility], she is willing to try another NH. CM was updated by team.
--- NOTE | 2019-10-13 19:20 | PN ---
Physical Exam: SUBJECTIVE: Patient seen and examined bedside. In no acute distress. No events overnight. OBJECTIVE: Vital Signs - 8 hr 10/13/19 14:31 Temperature 98.0 F Pulse Rate 89 Respiratory 19 Rate Blood Pressure 112/60 GENERAL: The patient is awake, alert, and oriented, in no acute distress. LUNGS: Breath sounds equal, clear to auscultation bilaterally HEART: Regular rate and rhythm ABDOMEN: Soft, nontender, nondistended,. EXTREMITIES: BL + 1 pitting edema on ankles, overall leg edema continuing to improve. Sacral decubitus ulcer stage 2 Laboratory Results - last 24 hr 10/12/19 10/13/19 10/13/19 23:05 06:54 07:50 WBC RBC Hgb Hct MCV MCH MCHC RDW Plt Count MPV Absolute Neuts (auto) Neutrophils % Neutrophils % (Manual) Band Neutrophils % Lymphocytes % Lymphocytes % (Manual) Monocytes % Monocytes % (Manual) Eosinophils % Eosinophils % (Manual) Basophils % Basophils % (Manual) Myelocytes % (Man) Promyelocytes % (Man) Blast Cells % (Manual) Nucleated RBC % Metamyelocytes Hypochromia Platelet Estimate Polychromasia Poikilocytosis Anisocytosis Microcytosis Macrocytosis Sodium 136 Potassium 3.6 Chloride 100 Carbon Dioxide 25 Anion Gap 12 BUN 112.2 H* Creatinine 2.9 H Est GFR (CKD-EPI)AfAm 15.97 Est GFR (CKD-EPI)NonAf 13.78 POC Glucometer 182 194 Random Glucose 189 H Calcium 7.8 L Phosphorus 3.6 Magnesium 1.7 L Total Bilirubin 0.4 AST 16 ALT 6 L Alkaline Phosphatase 251 H Total Protein 6.3 L Albumin 2.0 L 10/13/19 10/13/19 10/13/19 07:50 11:40 16:51 WBC 15.7 H RBC 2.52 L Hgb 7.4 L Hct 23.8 L MCV 94.4 MCH 29.2 MCHC 31.0 L RDW 20.4 H Plt Count 68 L MPV 8.1 Absolute Neuts (auto) 11.7 H Neutrophils % 74.2 Neutrophils % (Manual) 56.8 Band Neutrophils % 1.2 Lymphocytes % 7.5 L Lymphocytes % (Manual) 19.3 D Monocytes % 7.8 Monocytes % (Manual) 3 L Eosinophils % 9.7 H Eosinophils % (Manual) 12.5 H Basophils % 0.8 Basophils % (Manual) 0.0 Myelocytes % (Man) 3 H D Promyelocytes % (Man) 0 Blast Cells % (Manual) 0 Nucleated RBC % 0 Metamyelocytes 2 D Hypochromia 0 Platelet Estimate Decreased Polychromasia 0 Poikilocytosis 0 Anisocytosis 0 Microcytosis 0 Macrocytosis 0 Sodium Potassium Chloride Carbon Dioxide Anion Gap BUN Creatinine Est GFR (CKD-EPI)AfAm Est GFR (CKD-EPI)NonAf POC Glucometer 239 213 Random Glucose Calcium Phosphorus Magnesium Total Bilirubin AST ALT Alkaline Phosphatase Total Protein Albumin Active Medications Generic Name Dose Route Start Last Admin Trade Name Freq PRN Reason Stop Dose Admin Acetaminophen 650 mg 10/11/19 12:26 10/13/19 06:44 Tylenol - PO 650 mg Q6H PRN Administration PAIN LEVEL 6-10 Apixaban 2.5 mg 10/04/19 22:00 10/13/19 10:02 Eliquis - PO 2.5 mg BID [facility] Administration Carvedilol 25 mg 10/01/19 10:00 10/13/19 10:02 Coreg - PO 25 mg BID [facility] Administration Docusate Sodium 300 mg 10/01/19 22:00 10/12/19 23:35 Colace - PO 300 mg HS [facility] Administration Furosemide 60 mg 10/14/19 10:00 Lasix - PO BID [facility] Hydralazine HCl 10 mg 09/29/19 14:00 10/13/19 14:11 Apresoline - PO 10 mg TID [facility] Administration Insulin Aspart 1 vial 10/01/19 07:00 10/13/19 16:53 Novolog Vial Sliding Scale - SQ 4 units ACHS [facility] Administration Protocol Lactobacillus Acidophilus 1 tab 09/29/19 14:30 10/13/19 10:02 Bacid - PO 1 tab DAILY [facility] Administration Letrozole 2.5 mg 10/01/19 10:00 10/13/19 10:09 Femara - PO 2.5 mg DAILY [facility] Administration Levothyroxine Sodium 100 mcg 10/01/19 07:00 10/13/19 06:44 Synthroid - PO 100 mcg ACBK [facility] Administration Lidocaine 1 patch 10/13/19 14:00 10/13/19 16:53 Lidoderm Patch - TP 1 patch DAILY [facility] Administration Miscellaneous 1 each 10/13/19 22:00 Lidoderm Patch Removal MC DAILY@2200 [facility] Nitroglycerin 1 inch 10/03/19 14:26 10/13/19 17:56 Nitro-Bid 2% Paste - TD 1 inch Q6HPO [facility] Administration Pantoprazole Sodium 40 mg 10/01/19 10:00 10/13/19 10:02 Protonix - PO 40 mg DAILY [facility] Administration Polyethylene Glycol 17 gm 10/01/19 10:00 10/13/19 10:05 Miralax (For Daily Use) - PO 17 grams BID [facility] Administration Sevelamer Carbonate 800 mg 10/06/19 17:30 10/13/19 16:57 Renvela - PO 800 mg TIDCM [facility] Administration ASSESSMENT/PLAN: 89F yo female with pmhx of diastolic CHF, a-fib (on Eliquis), CKD, breast cancer s/p mastectomy, myelodysplasia, IDDM type 2, hypothyroidism, HLD, CVA, and GERD presents with b/l leg swelling and nausea for "weeks" and back pain for several days admitted for acute CHF exacerbation. Acute on Chronic Diastolic CHF Exacerbation; -Daily weights, I/Os, 2gm Na diet w/ fluid restriction -Cardio consulted; currently on Lasix 80 BID IV - to switch back to PO lasix tomorrow AM 10/13 -Cont O2 NC, currently on 2L intermittently -Repeat Echo (10/03) showed LV wnl, EF 55-60%, atria severely dilated, RV borderline in size and fxn, AV sclerotic, MV severe annular calcification, trace MR, mod to sev TR and sev pHTN, possible small pericardial effusion Thrombocytopenia platelets have been dropping over last few days, today 68, consider stopping eliquis if continues to drop Reassess in AM New 4 cm L Hepatic Lobe lesion; in setting of hx of breast cancer and myelodysplasia -Onc consulted- Dr. Sullivan CA 27-[address] Alvarado will be called about adjustments can be made to hormonal therapy ([phone]) - still unable to reach Dr. Sullivan, will try main office tomorrow. Cont home meds: Letrozole 2.5 QD Stage 2 sacral ulcer; not infected -Santyl and bandage -Frequent turning and positioning -Dilaudid 0.5 mg Q6H PRN for pain MAURICE on CKD; BUN/Cr worsening. -Hold amlodipine, hydralazine to allow for pressure drop and prevent hypoperfusion from IV Lasix -serial BMPs to monitor Cr (baseline near 2) - Phosphorus has normalized - Per renal, pt and family do not want HD - Nephro recs - continue to give lasix ESBL UTI; - resolved No urinary symptoms -UCx +ESBL Kleb pneumo; repeat UCx +Group D strep/enterococcus -Per ID, Ertapenem 500 mg QD completed today. Started on ZYVOX 600MG PO BID X 3D completed Asked ID to follow up on 10/12 about persistently high WBC count, ordered UA w/cx Hyponatremia; likely 2/2 fluid overload. Resolved. -2gm Na diet w/ fluid restriction -IV diuresis -Renal consulted Anemia; likely multi-factorial in setting of CKD, myelodysplasia -Transfuse PRN to maintain Hgb >7 Generalized abdominal pain; 2/2 constipation vs. liver mass -Miralax 17 gm BID for constipation -QTc 484, try to avoid Zofran for nausea/vomiting Hypothyroidism; Cont home meds: Synthroid 100 Prophylaxis DVT: Cont home Eliquis 2.5 BID - Team spoke to cardiology on 10/05/ regarding patient's kidney function and Eliquis, Cardiology recommended to maintain eliquis as is. GI: Cont home Protonix 40 FEN -Fluid restriction -monitor Na, Cl, and Cr -sodium/diabetic diet Dispo -cont to monitor on med-surg - Team preparing for possible discharge this week, case picker said patient wants to now switch her SNF, will f/u tomorrow - FULL CODE Visit type - Emergency Visit Emergency Visit: Yes ED Registration Date: 09/24/19 Care time: The patient presented to the Emergency Department on the above date and was hospitalized for further evaluation of their emergent condition. - New Patient This patient is new to me today: No - Critical Care Critical Care patient: No - Discharge Referral Referred to [facility] No ATTENDING PHYSICIAN STATEMENT I saw and evaluated the patient. I reviewed the resident's note and discussed the case with the resident. I agree with the resident's findings and plan as documented. SUBJECTIVE: OBJECTIVE: ASSESSMENT AND PLAN:
--- NOTE | 2019-10-13 19:57 | PN ---
Progress Note, Physician History of Present Illness: Pt seen and examined at bedside. She is awake and alert. She feels that her breathing is improved. - Current Medication List Current Medications: Active Medications Acetaminophen (Tylenol -) 650 mg PO Q6H PRN PRN Reason: PAIN LEVEL 6-10 Last Admin: 10/13/19 06:44 Dose: 650 mg Documented by: Apixaban (Eliquis -) 2.5 mg PO BID [facility] Last Admin: 10/13/19 10:02 Dose: 2.5 mg Documented by: Carvedilol (Coreg -) 25 mg PO BID [facility] Last Admin: 10/13/19 10:02 Dose: 25 mg Documented by: Docusate Sodium (Colace -) 300 mg PO HS [facility] Last Admin: 10/12/19 23:35 Dose: 300 mg Documented by: Furosemide (Lasix -) 60 mg PO BID [facility] Hydralazine HCl (Apresoline -) 10 mg PO TID [facility] Last Admin: 10/13/19 14:11 Dose: 10 mg Documented by: Insulin Aspart (Novolog Vial Sliding Scale -) 1 vial SQ [facility]; Protocol Last Admin: 10/13/19 16:53 Dose: 4 units Documented by: Lactobacillus Acidophilus (Bacid -) 1 tab PO DAILY [facility] Last Admin: 10/13/19 10:02 Dose: 1 tab Documented by: Letrozole (Femara -) 2.5 mg PO DAILY [facility] Last Admin: 10/13/19 10:09 Dose: 2.5 mg Documented by: Levothyroxine Sodium (Synthroid -) 100 mcg PO ACBK [facility] Last Admin: 10/13/19 06:44 Dose: 100 mcg Documented by: Lidocaine (Lidoderm Patch -) 1 patch TP DAILY [facility] Last Admin: 10/13/19 16:53 Dose: 1 patch Documented by: Miscellaneous (Lidoderm Patch Removal) 1 each MC DAILY@2200 [facility] Nitroglycerin (Nitro-Bid 2% Paste -) 1 inch TD Q6HPO [facility] Last Admin: 10/13/19 17:56 Dose: 1 inch Documented by: Pantoprazole Sodium (Protonix -) 40 mg PO DAILY [facility] Last Admin: 10/13/19 10:02 Dose: 40 mg Documented by: Polyethylene Glycol (Miralax (For Daily Use) -) 17 gm PO BID [facility] Last Admin: 10/13/19 10:05 Dose: 17 grams Documented by: Sevelamer Carbonate (Renvela -) 800 mg PO TIDCM [facility] Last Admin: 10/13/19 16:57 Dose: 800 mg Documented by: - Objective Vital Signs: Vital Signs Temperature 98.7 F 10/13/19 19:40 Pulse Rate 108 H 10/13/19 19:40 Respiratory Rate 19 10/13/19 14:31 Blood Pressure 125/50 L 10/13/19 19:40 O2 Sat by Pulse Oximetry (%) 100 10/13/19 09:00 Constitutional: Yes: Calm Eyes: Yes: Conjunctiva Clear HENT: Yes: Atraumatic Neck: Yes: Supple Cardiovascular: Yes: S1, S2 Gastrointestinal: Yes: Normal Bowel Sounds, Soft Genitourinary: Yes: WNL Musculoskeletal: Yes: WNL Edema: Yes Edema: LLE: 1+, RLE: 1+ Neurological: Yes: Oriented Psychiatric: Yes: Oriented Labs: CBC, BMP 10/13/19 07:50 10/13/19 07:50 INR, PTT INR 1.59 (0.83-1.09) H 10/01/19 08:18 Assessment/Plan Current Medications Generic Name Dose Route Start Last Admin Trade Name Freq PRN Reason Stop Dose Admin Acetaminophen 650 mg 10/11/19 12:26 10/13/19 06:44 Tylenol - PO 650 mg Q6H PRN Administration PAIN LEVEL 6-10 Apixaban 2.5 mg 10/04/19 22:00 10/13/19 10:02 Eliquis - PO 2.5 mg BID [facility] Administration Carvedilol 25 mg 10/01/19 10:00 10/13/19 10:02 Coreg - PO 25 mg BID [facility] Administration Docusate Sodium 300 mg 10/01/19 22:00 10/12/19 23:35 Colace - PO 300 mg HS [facility] Administration Furosemide 60 mg 10/14/19 10:00 Lasix - PO BID [facility] Hydralazine HCl 10 mg 09/29/19 14:00 10/13/19 14:11 Apresoline - PO 10 mg TID [facility] Administration Insulin Aspart 1 vial 10/01/19 07:00 10/13/19 16:53 Novolog Vial Sliding Scale - SQ 4 units ACHS [facility] Administration Protocol Lactobacillus Acidophilus 1 tab 09/29/19 14:30 10/13/19 10:02 Bacid - PO 1 tab DAILY [facility] Administration Letrozole 2.5 mg 10/01/19 10:00 10/13/19 10:09 Femara - PO 2.5 mg DAILY [facility] Administration Levothyroxine Sodium 100 mcg 10/01/19 07:00 10/13/19 06:44 Synthroid - PO 100 mcg ACBK [facility] Administration Lidocaine 1 patch 10/13/19 14:00 10/13/19 16:53 Lidoderm Patch - TP 1 patch DAILY [facility] Administration Miscellaneous 1 each 10/13/19 22:00 Lidoderm Patch Removal MC DAILY@2200 [facility] Nitroglycerin 1 inch 10/03/19 14:26 10/13/19 17:56 Nitro-Bid 2% Paste - TD 1 inch Q6HPO [facility] Administration Pantoprazole Sodium 40 mg 10/01/19 10:00 10/13/19 10:02 Protonix - PO 40 mg DAILY [facility] Administration Polyethylene Glycol 17 gm 10/01/19 10:00 10/13/19 10:05 Miralax (For Daily Use) - PO 17 grams BID [facility] Administration Sevelamer Carbonate 800 mg 10/06/19 17:30 10/13/19 16:57 Renvela - PO 800 mg TIDCM [facility] Administration Impression 1. proteinuria 2. hypothyroid 3. HTN 4. DM 5. fluid overload 6. breast cancer 7. anemia 8. CKD 9. CHF 10. hyponatremia 11. hypokalemia 12. MAURICE Plan - transition to po diuretics - lasix 80 po bid - monitor lytes in rehab - pt is comfortable - we may not be able to achieve a completely euvolemic state secondary to compromised renal function - monitor volume status - 2 gram sodium diet - discussed with cardio - phos levels improved - will stop sevelamer - renal function improving
[2019-10-13] MEDS ORDERED: MAGNESIUM OXIDE 400 MG TABLET (FP) PO ONE (19:58)
[2019-10-13] MEDS: DOCUSATE SODIUM 100 MG CAPSULE (FP) PO SCH ×2 (21:46→21:55)
[2019-10-13] MEDS: LIDOCAINE PATCH REMOVAL MC SCH (21:48)
[2019-10-14] MEDS ORDERED: PT OWN MED DRAWER 7, Y5N ONE (00:37)
[2019-10-14] MEDS: NITROGLYCERIN 2% OINTMENT - 1GM PACKET TD SCH ×5 (01:00→17:57)
[2019-10-14] MEDS: FUROSEMIDE 40 MG TABLET (FP) PO SCH ×2 (06:56→14:27)
[2019-10-14] MEDS: hydrALAZINE HCL 10 MG TABLET PO SCH ×3 (06:57→21:36)
[2019-10-14] MEDS: INSULIN SLIDING SCALE (NOVOLOG) 1 VIAL SQ SCH ×4 (06:58→21:34)
[2019-10-14] MEDS: LEVOTHYROXINE NA 100 MCG TABLET (FP) PO SCH (06:58)
[2019-10-14] MEDS: SEVELAMER CARBONATE 800 MG TAB (FP) PO SCH ×2 (08:28→12:07)
[2019-10-14 08:46] LABS: BASO % 0.9 % (0-2.0); EOS % 10.7 % (0-4.5); HEMATOCRIT 24.1 % (32.4-45.2); HEMOGLOBIN 7.5 GM/dL (10.7-15.3); LYMPH % 8.6 % (8-40); MCH 29.3 pg (25.7-33.7); MCHC 31.1 g/dl (32.0-36.0); MEAN CELL VOLUME 94.5 fl (80-96); MEAN PLT VOLUME 8.1 fl (7.5-11.1); MONO % 7.3 % (3.8-10.2); NEUT % 72.5 % (42.8-82.8); PLATELET COUNT 64 K/MM3 (134-434); RBC 2.55 M/mm3 (3.60-5.2); RDW 20.1 % (11.6-15.6); WHITE BLOOD COUNT 17.5 K/mm3 (4.0-10.0)
[2019-10-14 09:15] LABS: CALCIUM 7.9 mg/dL (8.5-10.1); CREATININE 2.8 mg/dL (0.55-1.3); MAGNESIUM 1.8 mg/dL (1.8-2.4); PHOSPHOROUS 3.1 mg/dL (2.5-4.9); POTASSIUM 3.5 mmol/L (3.5-5.1)
[2019-10-14 09:20] LABS: BLOOD UREA NITROGEN 110.4 mg/dL (7-18)
[2019-10-14] MEDS: CARVEDILOL 25 MG TABLET (FP) PO SCH (09:21)
[2019-10-14] MEDS: LACTOBACILLUS ACIDOPHILUS 1 TABLET PO SCH (09:21)
[2019-10-14] MEDS: PANTOPRAZOLE 40 MG TABLET PO SCH (09:21)
[2019-10-14] MEDS: LIDOCAINE 5% TOPICAL PATCH TP SCH (09:21)
[2019-10-14] MEDS: POLYETHYLENE GLYCOL 3350 119 GM BTL PO SCH ×2 (09:21→21:37)
[2019-10-14] MEDS: APIXABAN 2.5 MG TABLET PO SCH ×2 (09:21→21:36)
[2019-10-14] MEDS: LETROZOLE 2.5 MG TABLET (FP) PO SCH (09:27)
[2019-10-14] MEDS ORDERED: FUROSEMIDE 40 MG TABLET (FP) PO SCH (10:00)
[2019-10-14 10:07] LABS: EPI CELLS 19 /uL (0-25.1); HYALINE CASTS 1 /uL (0-3.1); PH,URINE 5.5 (5.0-8.0); URINE APPEARANCE CLEAR; URINE BACTERIA 6663 /uL (0-1359); URINE BILIRUBIN NEGATIVE (NEGATIVE); URINE COLOR YELLOW; URINE GLUCOSE (UA) TRACE (NEGATIVE); URINE KETONE NEGATIVE (NEGATIVE); URINE LEUK ESTERASE NEGATIVE (NEGATIVE); URINE NITRITE NEGATIVE (NEGATIVE); URINE PROTEIN 3+ (NEGATIVE); URINE RBC 38 /uL (0-23.9); URINE UROBILINOGEN 0.2 mg/dL (0.2-1.0)
--- NOTE | 2019-10-14 11:17 | PN ---
Progress Note (short form) - Note Progress Note: Chief Complaint: sob History of Present Illness: no sob, le edema better, no cp, no palps; main complaint is back pain Current Medications Generic Name Dose Route Start Last Admin Trade Name Moiseq PRN Reason Stop Dose Admin Acetaminophen 650 mg 10/11/19 12:26 10/13/19 21:47 Tylenol - PO 650 mg Q6H PRN Administration PAIN LEVEL 6-10 Apixaban 2.5 mg 10/04/19 22:00 10/14/19 09:21 Eliquis - PO 2.5 mg BID [facility] Administration Carvedilol 25 mg 10/01/19 10:00 10/14/19 09:21 Coreg - PO 25 mg BID [facility] Administration Docusate Sodium 300 mg 10/01/19 22:00 10/13/19 21:55 Colace - PO Not Given HS [facility] Furosemide 80 mg 10/14/19 06:00 10/14/19 06:56 Lasix - PO 80 mg BID@0600,1400 [facility] Administration Hydralazine HCl 10 mg 09/29/19 14:00 10/14/19 06:57 Apresoline - PO 10 mg TID [facility] Administration Insulin Aspart 1 vial 10/01/19 07:00 10/14/19 11:11 Novolog Vial Sliding Scale - SQ 4 units ACHS [facility] Administration Protocol Lactobacillus Acidophilus 1 tab 09/29/19 14:30 10/14/19 09:21 Bacid - PO 1 tab DAILY [facility] Administration Letrozole 2.5 mg 10/01/19 10:00 10/14/19 09:27 Femara - PO 2.5 mg DAILY [facility] Administration Levothyroxine Sodium 100 mcg 10/01/19 07:00 10/14/19 06:58 Synthroid - PO 100 mcg ACBK [facility] Administration Lidocaine 1 patch 10/13/19 14:00 10/14/19 09:21 Lidoderm Patch - TP 1 patch DAILY [facility] Administration Miscellaneous 1 each 10/13/19 22:00 10/13/19 21:48 Lidoderm Patch Removal MC 1 each DAILY@2200 [facility] Administration Nitroglycerin 1 inch 10/03/19 14:26 10/14/19 06:58 Nitro-Bid 2% Paste - TD 1 inch Q6HPO [facility] Administration Pantoprazole Sodium 40 mg 10/01/19 10:00 10/14/19 09:21 Protonix - PO 40 mg DAILY [facility] Administration Polyethylene Glycol 17 gm 10/01/19 10:00 10/14/19 09:21 Miralax (For Daily Use) - PO 17 grams BID [facility] Administration Sevelamer Carbonate 800 mg 10/06/19 17:30 10/14/19 08:28 Renvela - PO 800 mg TIDCM [facility] Administration Vital Signs Period Temp Pulse Resp BP Sys/Hernandez Pulse Ox Last 24 Hr 97.3 F-98.8 F 89-108 18-19 112-125/50-69 100 Constitutional: Yes: No Distress, Calm Eyes: No: Sclera Icterus HENT: No: Nasal Congestion Cardiovascular: Yes: Pulse Irregular, JVD, S1, S2, Other (PMI non diplaced). No: Gallop, Murmur Respiratory: Yes: Regular, CTA Bilaterally. No: Accessory Muscle Use Gastrointestinal: Yes: Normal Bowel Sounds, Soft. No: Tenderness Extremities: No: Cold, Cyanosis Edema: 1+ le edema bl Integumentary: No: Jaundice Neurological: Yes: Alert, Oriented (x3) Psychiatric: No: Agitated Labs: CBC, BMP 10/14/19 07:13 10/14/19 07:13 Assessment/Plan echo 03/2019 nl LV function, mild MR, mild TR, PASP at least 49 mmHg IMP/REC: Acute diastolic heart failure exacerbation: - recent echo nl LV function - no signs acs - holding aldactone - now on po lasix - per d/w renal it is likely her renal fxn will not improve with effective diuresis - refused dialysis - cont nitrates for cardiorenal syndrome HTN: - bp stable - cont current meds crow on CKD: - Baseline creat from last admission is 2-2.5, elevated now, likely cardiorenal - renal following PAF: -cont coreg for rate control -cont eliquis low dose (age, creatinine) liver mass: -heme/onc following
[2019-10-14 11:49] LABS: ANISOCYTOSIS 2+; MACROCYTOSIS 0; PLATELET ESTIMATE DECREASED
[2019-10-14 12:52] LABS: YEAST MOD (NEGATIVE)
[2019-10-14] MEDS ORDERED: BISACODYL 10 MG SUPP.RECT PR PRN (13:59)
--- NOTE | 2019-10-14 15:20 | PN ---
Progress Note, Physician History of Present Illness: Pt seen and examined at bedside. She is awake and appears comfortable. - Current Medication List Current Medications: Active Medications Acetaminophen (Tylenol -) 650 mg PO Q6H PRN PRN Reason: PAIN LEVEL 6-10 Last Admin: 10/13/19 21:47 Dose: 650 mg Documented by: Apixaban (Eliquis -) 2.5 mg PO BID [facility] Last Admin: 10/14/19 09:21 Dose: 2.5 mg Documented by: Bisacodyl (Dulcolax Suppository -) 10 mg [place] PRN PRN PRN Reason: CONSTIPATION Carvedilol (Coreg -) 25 mg PO BID [facility] Last Admin: 10/14/19 09:21 Dose: 25 mg Documented by: Docusate Sodium (Colace -) 300 mg PO HS [facility] Last Admin: 10/13/19 21:55 Dose: Not Given Documented by: Furosemide (Lasix -) 80 mg PO BID@0600,1400 [facility] Last Admin: 10/14/19 14:27 Dose: 80 mg Documented by: Hydralazine HCl (Apresoline -) 10 mg PO TID [facility] Last Admin: 10/14/19 14:27 Dose: 10 mg Documented by: Insulin Aspart (Novolog Vial Sliding Scale -) 1 vial SQ [facility]; Protocol Last Admin: 10/14/19 11:11 Dose: 4 units Documented by: Lactobacillus Acidophilus (Bacid -) 1 tab PO DAILY [facility] Last Admin: 10/14/19 09:21 Dose: 1 tab Documented by: Letrozole (Femara -) 2.5 mg PO DAILY [facility] Last Admin: 10/14/19 09:27 Dose: 2.5 mg Documented by: Levothyroxine Sodium (Synthroid -) 100 mcg PO ACBK [facility] Last Admin: 10/14/19 06:58 Dose: 100 mcg Documented by: Lidocaine (Lidoderm Patch -) 1 patch TP DAILY [facility] Last Admin: 10/14/19 09:21 Dose: 1 patch Documented by: Miscellaneous (Lidoderm Patch Removal) 1 each MC DAILY@2200 [facility] Last Admin: 10/13/19 21:48 Dose: 1 each Documented by: Nitroglycerin (Nitro-Bid 2% Paste -) 1 inch TD Q6HPO [facility] Last Admin: 10/14/19 12:07 Dose: Not Given Documented by: Pantoprazole Sodium (Protonix -) 40 mg PO DAILY [facility] Last Admin: 10/14/19 09:21 Dose: 40 mg Documented by: Polyethylene Glycol (Miralax (For Daily Use) -) 17 gm PO BID [facility] Last Admin: 10/14/19 09:21 Dose: 17 grams Documented by: Sevelamer Carbonate (Renvela -) 800 mg PO TIDCM [facility] Last Admin: 10/14/19 12:07 Dose: 800 mg Documented by: - Objective Vital Signs: Vital Signs Temperature 98.8 F 10/14/19 08:18 Pulse Rate 102 H 10/14/19 08:18 Respiratory Rate 18 10/14/19 08:18 Blood Pressure 118/64 10/14/19 08:18 O2 Sat by Pulse Oximetry (%) 100 10/14/19 09:00 Constitutional: Yes: Calm Eyes: Yes: Conjunctiva Clear HENT: Yes: Atraumatic Neck: Yes: Supple Cardiovascular: Yes: S1, S2 Respiratory: Yes: On Nasal O2 Gastrointestinal: Yes: Soft Genitourinary: Yes: Incontinence Musculoskeletal: Yes: Muscle Weakness Edema: Yes Edema: LLE: 1+, RLE: 1+ Neurological: Yes: Oriented Psychiatric: Yes: Oriented Labs: CBC, BMP 10/14/19 07:13 10/14/19 07:13 INR, PTT INR 1.59 (0.83-1.09) H 10/01/19 08:18 Assessment/Plan Current Medications Generic Name Dose Route Start Last Admin Trade Name Freq PRN Reason Stop Dose Admin Acetaminophen 650 mg 10/11/19 12:26 10/13/19 21:47 Tylenol - PO 650 mg Q6H PRN Administration PAIN LEVEL 6-10 Apixaban 2.5 mg 10/04/19 22:00 10/14/19 09:21 Eliquis - PO 2.5 mg BID [facility] Administration Bisacodyl 10 mg 10/14/19 13:59 Dulcolax Suppository - [place] PRN PRN CONSTIPATION Carvedilol 25 mg 10/01/19 10:00 10/14/19 09:21 Coreg - PO 25 mg BID [facility] Administration Docusate Sodium 300 mg 10/01/19 22:00 10/13/19 21:55 Colace - PO Not Given [facility] Furosemide 80 mg 10/14/19 06:00 10/14/19 14:27 Lasix - PO 80 mg BID@0600,1400 [facility] Administration Hydralazine HCl 10 mg 09/29/19 14:00 10/14/19 14:27 Apresoline - PO 10 mg TID [facility] Administration Insulin Aspart 1 vial 10/01/19 07:00 10/14/19 11:11 Novolog Vial Sliding Scale - SQ 4 units ACHS [facility] Administration Protocol Lactobacillus Acidophilus 1 tab 09/29/19 14:30 10/14/19 09:21 Bacid - PO 1 tab DAILY [facility] Administration Letrozole 2.5 mg 10/01/19 10:00 10/14/19 09:27 Femara - PO 2.5 mg DAILY [facility] Administration Levothyroxine Sodium 100 mcg 10/01/19 07:00 10/14/19 06:58 Synthroid - PO 100 mcg ACBK [facility] Administration Lidocaine 1 patch 10/13/19 14:00 10/14/19 09:21 Lidoderm Patch - TP 1 patch DAILY [facility] Administration Miscellaneous 1 each 10/13/19 22:00 10/13/19 21:48 Lidoderm Patch Removal MC 1 each DAILY@2200 [facility] Administration Nitroglycerin 1 inch 10/03/19 14:26 10/14/19 12:07 Nitro-Bid 2% Paste - TD Not Given Q6HPO [facility] Pantoprazole Sodium 40 mg 10/01/19 10:00 10/14/19 09:21 Protonix - PO 40 mg DAILY [facility] Administration Polyethylene Glycol 17 gm 10/01/19 10:00 10/14/19 09:21 Miralax (For Daily Use) - PO 17 grams BID [facility] Administration Sevelamer Carbonate 800 mg 10/06/19 17:30 10/14/19 12:07 Renvela - PO 800 mg TIDCM [facility] Administration Impression 1. proteinuria 2. hypothyroid 3. HTN 4. DM 5. fluid overload 6. breast cancer 7. anemia 8. CKD 9. CHF 10. hyponatremia 11. hypokalemia 12. MAURICE Plan - cont po diuretics - monitor lytes - monitor renal function - no objection to rehab placements - 2 gram sodium diet - we may not be able to achieve a completely euvolemic state secondary to compromised renal function - monitor volume status - d/c sevelamer - renal function improving
--- NOTE | 2019-10-14 16:56 | PN ---
Progress Note (short form) - Note Progress Note: Palliative care f/up 89 y/o female with PMHx of diastolic CHF, a-fib (on Eliquis), CKD, breast cancer s/p left breast lumpectomy and radiation in 2013, myelodysplasia, IDDM type 2, hypothyroidism, HLD, CVA, and GERD who was admitted to [facility] 09/23 with constipation, SOB, b/l leg swelling and nausea for "weeks" and back pain for "several days." Elissa has been in and out of hospitals and nursing homes this past year and she has been bedbound since February of last year. A CT of the abdomen revealed a 4 cm L hepatic lobe hypodense lesion suspicious for metastatic disease as well as a 2.[address] enlargement and enlarged retroperitoneal nodes. Very elevated BNP and edematous- s/p aggressive diuresis with improvement in edema but worsening renal function. 2 hepatic masses seen on USG liver- 5.7 cm and 4 cm respectively. She has been seen by Haem- onc- cancer markers have been sent- presumed metastatic breast cancer- depending on test results there might be some modification in breast cancer hormonal treatment but pt is not a candidate for aggressive chemo/ sx/ radiation. She was also diagnosed with MDS/ AML or MPN as per haem- onc. Lumbar CT showed multilevel DJD, no neoplastic disease. HD has been recommended but patient has refused it but does not wish to consider hospice/ comfort care. 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 She wants to have physical therapy. SW to discuss SNF placement options. She would be appropriate for comfort/ hospice care given her multiple comorbidities, metastatic cancer, debilitated state with CHF and CKD approaching end stage, pressure ulcers. However she does not want hospice/ comfort care at this point. Would continue pain meds, diuretics. She will be appropriate for SNF on palliative care. Problem List - Problems (1) Acute diastolic (congestive) heart failure Code(s): I50.31 - ACUTE DIASTOLIC (CONGESTIVE) HEART FAILURE (2) Acute kidney injury superimposed on CKD Code(s): N17.9 - ACUTE KIDNEY FAILURE, UNSPECIFIED; N18.9 - CHRONIC KIDNEY DISEASE, UNSPECIFIED (3) Breast cancer Code(s): C50.919 - MALIGNANT NEOPLASM OF UNSP SITE OF UNSPECIFIED FEMALE BREAST (4) History of CVA with residual deficit Code(s): I69.30 - UNSPECIFIED SEQUELAE OF CEREBRAL INFARCTION (5) Renal disease Code(s): N28.9 - DISORDER OF KIDNEY AND URETER, UNSPECIFIED
--- NOTE | 2019-10-14 18:10 | PN ---
Teaching Attending Note Name of Resident: Kylah Denton ATTENDING PHYSICIAN STATEMENT I saw and evaluated the patient. I reviewed the resident's note and discussed the case with the resident. I agree with the resident's findings and plan as documented. SUBJECTIVE: No fever or chills. No SOB at rest. no abd pain . aches and pains every where OBJECTIVE: NAD, awake, alert CV: RRR Lungs: CTAB Ext: 1+ edema , on legs. skin : sacral area/upper medial gluteal with erythematous skin and small clean stage 2 ulcers .No discharge noted ASSESSMENT AND PLAN: 89 y/o lady with h/o diastolic CHF, a-fib (on Eliquis), CKD, breast cancer s/p mastectomy, myelodysplasia, IDDM type 2, hypothyroidism, HLD, CVA, and GERD who presented with SOB adn LE edema and was diagnosed with D CHF exacerbation Acute on chronic diastolic heart failure : improved ESBL producing Klebsiealla complicated UTI/pyelonephritis : treated MAURICE on CKD : improved Liver mass retroperitoneal LAP b/l adrenal nodules h/o MDS chronic normocytic anemia persistant leukocytosis prolonged QTC hyponatremia high AG metabolic acidosis :resolved prolonged QTC h/o A fib Stage 2 sacral decubiti Plan: - persistent leukocytosis might not be due to infection. ? MDS ---> leukemia - will discuss with ruby.team is Not able to reach dr. clements . will reach out to Dr. Reynaga -cont po lasix - cont eliqis - increase coreg due to slight tachy - cont bowel regimen - frequent turning. air mattress delivered and is being used - cont femara CAse was d/w Sw today . pt is not willing to return to [facility] after dc.
--- NOTE | 2019-10-14 18:46 | PN ---
Physical Exam: SUBJECTIVE: Patient seen and examined bedside, in no acute distress, no events overnight. OBJECTIVE: Vital Signs Period Temp Pulse Resp BP Sys/Hernandez Pulse Ox Last 24 Hr 97.3 F-98.8 F 99-108 18-19 118-125/50-69 100-100 GENERAL: The patient is awake, alert, and oriented, in no acute distress. LUNGS: Breath sounds equal, mild BL crackles, resting comfortably without n/c HEART: Regular rate and rhythm ABDOMEN: Soft, nontender, nondistended,. EXTREMITIES: BL + 1 pitting edema on ankles, overall leg edema continuing to improve. Sacral decubitus ulcer stage 2 Laboratory Results - last 24 hr 10/13/19 10/14/19 10/14/19 21:44 06:51 07:00 WBC RBC Hgb Hct MCV MCH MCHC RDW Plt Count MPV Absolute Neuts (auto) Neutrophils % Neutrophils % (Manual) Band Neutrophils % Lymphocytes % Lymphocytes % (Manual) Monocytes % Monocytes % (Manual) Eosinophils % Eosinophils % (Manual) Basophils % Basophils % (Manual) Myelocytes % (Man) Promyelocytes % (Man) Blast Cells % (Manual) Nucleated RBC % Metamyelocytes Hypochromia Platelet Estimate Platelet Comment Polychromasia Poikilocytosis Anisocytosis Microcytosis Macrocytosis Sodium Potassium Chloride Carbon Dioxide Anion Gap BUN Creatinine Est GFR (CKD-EPI)AfAm Est GFR (CKD-EPI)NonAf POC Glucometer 198 152 Random Glucose Calcium Phosphorus Magnesium Urine Color Yellow Urine Appearance Clear Urine pH 5.5 Ur Specific [place] 1.013 Urine Protein 3+ H Urine Glucose (UA) Trace Urine Ketones Negative Urine Blood Negative Urine Nitrite Negative Urine Bilirubin Negative Urine Urobilinogen 0.2 Ur Leukocyte Esterase Negative Urine RBC (Auto) 38 Urine Casts (Auto) 1 U Epithel Cells (Auto) 19 Urine Bacteria (Auto) 6663 Urine Yeast (Auto) Mod 10/14/19 10/14/19 10/14/19 07:13 07:13 11:10 WBC 17.5 H RBC 2.55 L Hgb 7.5 L Hct 24.1 L MCV 94.5 MCH 29.3 MCHC 31.1 L RDW 20.1 H Plt Count 64 L MPV 8.1 Absolute Neuts (auto) 12.7 H Neutrophils % 72.5 Neutrophils % (Manual) 61.7 Band Neutrophils % 6.4 Lymphocytes % 8.6 Lymphocytes % (Manual) 7.4 L D Monocytes % 7.3 Monocytes % (Manual) 5 Eosinophils % 10.7 H Eosinophils % (Manual) 12.8 H Basophils % 0.9 Basophils % (Manual) 2.1 H D Myelocytes % (Man) 3 H Promyelocytes % (Man) 0 Blast Cells % (Manual) 0 Nucleated RBC % 0 Metamyelocytes 1 D Hypochromia 2+ Platelet Estimate Decreased Platelet Comment Present Polychromasia 1+ Poikilocytosis 0 Anisocytosis 2+ Microcytosis 2+ Macrocytosis 0 Sodium 138 Potassium 3.5 Chloride 101 Carbon Dioxide 24 Anion Gap 12 BUN 110.4 H* Creatinine 2.8 H Est GFR (CKD-EPI)AfAm 16.66 Est GFR (CKD-EPI)NonAf 14.37 POC Glucometer 208 Random Glucose 153 H Calcium 7.9 L Phosphorus 3.1 Magnesium 1.8 Urine Color Urine Appearance Urine pH Ur Specific [place] Urine Protein Urine Glucose (UA) Urine Ketones Urine Blood Urine Nitrite Urine Bilirubin Urine Urobilinogen Ur Leukocyte Esterase Urine RBC (Auto) Urine Casts (Auto) U Epithel Cells (Auto) Urine Bacteria (Auto) Urine Yeast (Auto) 10/14/19 16:22 WBC RBC Hgb Hct MCV MCH MCHC RDW Plt Count MPV Absolute Neuts (auto) Neutrophils % Neutrophils % (Manual) Band Neutrophils % Lymphocytes % Lymphocytes % (Manual) Monocytes % Monocytes % (Manual) Eosinophils % Eosinophils % (Manual) Basophils % Basophils % (Manual) Myelocytes % (Man) Promyelocytes % (Man) Blast Cells % (Manual) Nucleated RBC % Metamyelocytes Hypochromia Platelet Estimate Platelet Comment Polychromasia Poikilocytosis Anisocytosis Microcytosis Macrocytosis Sodium Potassium Chloride Carbon Dioxide Anion Gap BUN Creatinine Est GFR (CKD-EPI)AfAm Est GFR (CKD-EPI)NonAf POC Glucometer 195 Random Glucose Calcium Phosphorus Magnesium Urine Color Urine Appearance Urine pH Ur Specific [place] Urine Protein Urine Glucose (UA) Urine Ketones Urine Blood Urine Nitrite Urine Bilirubin Urine Urobilinogen Ur Leukocyte Esterase Urine RBC (Auto) Urine Casts (Auto) U Epithel Cells (Auto) Urine Bacteria (Auto) Urine Yeast (Auto) Active Medications Generic Name Dose Route Start Last Admin Trade Name Freq PRN Reason Stop Dose Admin Acetaminophen 650 mg 10/11/19 12:26 10/13/19 21:47 Tylenol - PO 650 mg Q6H PRN Administration PAIN LEVEL 6-10 Apixaban 2.5 mg 10/04/19 22:00 10/14/19 09:21 Eliquis - PO 2.5 mg BID [facility] Administration Bisacodyl 10 mg 10/14/19 13:59 Dulcolax Suppository - ME PRN PRN CONSTIPATION Carvedilol 37.5 mg 10/14/19 22:00 Coreg - PO BID [facility] Docusate Sodium 300 mg 10/01/19 22:00 10/13/19 21:55 Colace - PO Not Given HS [facility] Furosemide 80 mg 10/14/19 06:00 10/14/19 14:27 Lasix - PO 80 mg BID@0600,1400 [facility] Administration Hydralazine HCl 10 mg 09/29/19 14:00 10/14/19 14:27 Apresoline - PO 10 mg TID [facility] Administration Insulin Aspart 1 vial 10/01/19 07:00 10/14/19 16:23 Novolog Vial Sliding Scale - SQ 2 units ACHS [facility] Administration Protocol Lactobacillus Acidophilus 1 tab 09/29/19 14:30 10/14/19 09:21 Bacid - PO 1 tab DAILY [facility] Administration Letrozole 2.5 mg 10/01/19 10:00 10/14/19 09:27 Femara - PO 2.5 mg DAILY [facility] Administration Levothyroxine Sodium 100 mcg 10/01/19 07:00 10/14/19 06:58 Synthroid - PO 100 mcg ACBK [facility] Administration Lidocaine 1 patch 10/13/19 14:00 10/14/19 09:21 Lidoderm Patch - TP 1 patch DAILY [facility] Administration Miscellaneous 1 each 10/13/19 22:00 10/13/19 21:48 Lidoderm Patch Removal MC 1 each DAILY@2200 [facility] Administration Nitroglycerin 1 inch 10/03/19 14:26 10/14/19 17:57 Nitro-Bid 2% Paste - TD 1 inch Q6HPO [facility] Administration Pantoprazole Sodium 40 mg 10/01/19 10:00 10/14/19 09:21 Protonix - PO 40 mg DAILY [facility] Administration Polyethylene Glycol 17 gm 10/01/19 10:00 10/14/19 09:21 Miralax (For Daily Use) - PO 17 grams BID [facility] Administration ASSESSMENT/PLAN: 89F yo female with pmhx of diastolic CHF, a-fib (on Eliquis), CKD, breast cancer s/p mastectomy, myelodysplasia, IDDM type 2, hypothyroidism, HLD, CVA, and GERD presents with b/l leg swelling and nausea for "weeks" and back pain for several days admitted for acute CHF exacerbation. Thrombocytopenia and Leukocytosis platelets have been dropping over last few days 81>>>68>>>64 WBC count also continuously elevating concerned for MDS morphing into Leukemia. Consulted Dr. Reynaga order flow cytology with path in am Acute on Chronic Diastolic CHF Exacerbation; -Daily weights, I/Os, 2gm Na diet w/ fluid restriction -Cardio consulted; currently on Lasix 80 BID IV - to switch back to PO lasix tomorrow AM 10/13 - patient tolerating -Cont O2 NC, currently on 2L intermittently -Repeat Echo (10/03) showed LV wnl, EF 55-60%, atria severely dilated, RV borderline in size and fxn, AV sclerotic, MV severe annular calcification, trace MR, mod to sev TR and sev pHTN, possible small pericardial effusion - patient increasingly tachy - increase coreg to 37.5 BID (10/13) New 4 cm L Hepatic Lobe lesion; in setting of hx of breast cancer and MDS -Onc consulted- Dr. Sullivan CA 27-[address] Alvarado will be called about adjustments can be made to hormonal therapy ([phone]) - still unable to reach Dr. Sullivan, will try main office tomorrow. Cont home meds: Letrozole 2.5 QD Stage 2 sacral ulcer; not infected -Santyl and bandage -Frequent turning and positioning -Dilaudid 0.5 mg Q6H PRN for pain MAURICE on CKD; BUN/Cr worsening. -Hold amlodipine, hydralazine to allow for pressure drop and prevent hypoperfusion from IV Lasix -serial BMPs to monitor Cr (baseline near 2) - Phosphorus has normalized - Per renal, pt and family do not want HD - Nephro recs - continue to give lasix ESBL UTI; - resolved/ repeat UA on 10/13 negative No urinary symptoms -UCx +ESBL Kleb pneumo; repeat UCx +Group D strep/enterococcus -Per ID, Ertapenem 500 mg QD completed today. Started on ZYVOX 600MG PO BID X 3D completed Hyponatremia; likely 2/2 fluid overload. Resolved. -2gm Na diet w/ fluid restriction -IV diuresis -Renal consulted Anemia; likely multi-factorial in setting of CKD, myelodysplasia -Transfuse PRN to maintain Hgb >7 Generalized abdominal pain; 2/2 constipation vs. liver mass -Miralax 17 gm BID for constipation -QTc 484, try to avoid Zofran for nausea/vomiting Hypothyroidism; Cont home meds: Synthroid 100 Prophylaxis DVT: Cont home Eliquis 2.5 BID - Team spoke to cardiology on 10/05/ regarding patient's kidney function and Eliquis, Cardiology recommended to maintain eliquis as is. GI: Cont home Protonix 40 DISPO: Spoke with window caser Isabella, she is going to put in for new facilities Will continue discussion with patient and social work Visit type - Emergency Visit Emergency Visit: Yes ED Registration Date: 09/24/19 Care time: The patient presented to the Emergency Department on the above date and was hospitalized for further evaluation of their emergent condition. - New Patient This patient is new to me today: No - Critical Care Critical Care patient: No - Discharge Referral Referred to [facility] Med [facility] Yes ATTENDING PHYSICIAN STATEMENT I saw and evaluated the patient. I reviewed the resident's note and discussed the case with the resident. I agree with the resident's findings and plan as documented. SUBJECTIVE: OBJECTIVE: ASSESSMENT AND PLAN:
[2019-10-14] MEDS: ACETAMINOPHEN 325 MG TABLET (FP) PO PRN (21:34)
[2019-10-14] MEDS: CARVEDILOL 12.5 MG TABLET (FP) PO SCH (21:35)
[2019-10-14] MEDS: DOCUSATE SODIUM 100 MG CAPSULE (FP) PO SCH (21:36)
[2019-10-14] MEDS: LIDOCAINE PATCH REMOVAL MC SCH (21:36)
[2019-10-15] MEDS: NITROGLYCERIN 2% OINTMENT - 1GM PACKET TD SCH ×4 (00:36→17:57)
[2019-10-15] MEDS: hydrALAZINE HCL 10 MG TABLET PO SCH ×3 (06:35→21:56)
[2019-10-15] MEDS: LEVOTHYROXINE NA 100 MCG TABLET (FP) PO SCH (06:35)
[2019-10-15] MEDS: FUROSEMIDE 40 MG TABLET (FP) PO SCH (06:35)
[2019-10-15] MEDS: INSULIN SLIDING SCALE (NOVOLOG) 1 VIAL SQ SCH ×4 (06:36→21:57)
[2019-10-15 09:16] LABS: BASO % 0.8 % (0-2.0); EOS % 9.6 % (0-4.5); HEMATOCRIT 23.8 % (32.4-45.2); HEMOGLOBIN 7.5 GM/dL (10.7-15.3); LYMPH % 6.2 % (8-40); MCH 29.5 pg (25.7-33.7); MCHC 31.4 g/dl (32.0-36.0); MEAN PLT VOLUME 9.6 fl (7.5-11.1); NEUT % 75.4 % (42.8-82.8); PLATELET COUNT 63 K/MM3 (134-434); RBC 2.54 M/mm3 (3.60-5.2); RDW 20.1 % (11.6-15.6); WHITE BLOOD COUNT 17.4 K/mm3 (4.0-10.0)
[2019-10-15 09:55] LABS: BLOOD UREA NITROGEN 103.7 mg/dL (7-18); CALCIUM 7.7 mg/dL (8.5-10.1); CREATININE 2.8 mg/dL (0.55-1.3); MAGNESIUM 1.6 mg/dL (1.8-2.4); POTASSIUM 3.5 mmol/L (3.5-5.1)
[2019-10-15] MEDS: LACTOBACILLUS ACIDOPHILUS 1 TABLET PO SCH (10:09)
[2019-10-15] MEDS: CARVEDILOL 12.5 MG TABLET (FP) PO SCH ×2 (10:09→21:56)
[2019-10-15] MEDS: LETROZOLE 2.5 MG TABLET (FP) PO SCH (10:10)
[2019-10-15] MEDS: POLYETHYLENE GLYCOL 3350 119 GM BTL PO SCH ×2 (10:10→21:57)
[2019-10-15] MEDS: APIXABAN 2.5 MG TABLET PO SCH ×2 (10:10→21:56)
[2019-10-15] MEDS: LIDOCAINE 5% TOPICAL PATCH TP SCH (10:10)
[2019-10-15] MEDS: PANTOPRAZOLE 40 MG TABLET PO SCH (10:11)
[2019-10-15 10:33] LABS: ANISOCYTOSIS 1+; MACROCYTOSIS 1+; PLATELET ESTIMATE DECREASED
[2019-10-15] MEDS ORDERED: FUROSEMIDE 40 MG/4 ML INJECTABLE VIAL IVPUSH SCH (14:00)
[2019-10-15] MEDS ORDERED: FUROSEMIDE 40 MG/4 ML INJECTABLE VIAL IVPUSH ONE (14:00)
[2019-10-15] MEDS ORDERED: SPIRONOLACTONE 25 MG TABLET PO ONE (14:30)
--- NOTE | 2019-10-15 14:30 | PN ---
Progress Note, Physician History of Present Illness: Pt seen and examined at bedside. She denies shortness of breath. - Current Medication List Current Medications: Active Medications Acetaminophen (Tylenol -) 650 mg PO Q6H PRN PRN Reason: PAIN LEVEL 6-10 Last Admin: 10/14/19 21:34 Dose: 650 mg Documented by: Apixaban (Eliquis -) 2.5 mg PO BID [facility] Last Admin: 10/15/19 10:10 Dose: 2.5 mg Documented by: Bisacodyl (Dulcolax Suppository -) 10 mg [place] PRN PRN PRN Reason: CONSTIPATION Last Admin: 10/15/19 13:05 Dose: 10 mg Documented by: Carvedilol (Coreg -) 37.5 mg PO BID [facility] Last Admin: 10/15/19 10:09 Dose: 37.5 mg Documented by: Docusate Sodium (Colace -) 300 mg PO HS [facility] Last Admin: 10/14/19 21:36 Dose: Not Given Documented by: Furosemide (Lasix -) 80 mg PO BID@0600,1400 [facility] Hydralazine HCl (Apresoline -) 10 mg PO TID [facility] Last Admin: 10/15/19 14:18 Dose: 10 mg Documented by: Insulin Aspart (Novolog Vial Sliding Scale -) [address] [facility]; Protocol Last Admin: 10/15/19 11:33 Dose: 4 units Documented by: Lactobacillus Acidophilus (Bacid -) 1 tab PO DAILY [facility] Last Admin: 10/15/19 10:09 Dose: 1 tab Documented by: Letrozole (Femara -) 2.5 mg PO DAILY [facility] Last Admin: 10/15/19 10:10 Dose: 2.5 mg Documented by: Levothyroxine Sodium (Synthroid -) 100 mcg PO ACBK [facility] Last Admin: 10/15/19 06:35 Dose: 100 mcg Documented by: Lidocaine (Lidoderm Patch -) 1 patch TP DAILY [facility] Last Admin: 10/15/19 10:10 Dose: 1 patch Documented by: Miscellaneous (Lidoderm Patch Removal) 1 each MC DAILY@2200 [facility] Last Admin: 10/14/19 21:36 Dose: 1 each Documented by: Nitroglycerin (Nitro-Bid 2% Paste -) 1 inch TD Q6HPO [facility] Last Admin: 07/10/20 12:03 Dose: Not Given Documented by: Pantoprazole Sodium (Protonix -) 40 mg PO DAILY [facility] Last Admin: 10/15/19 10:11 Dose: 40 mg Documented by: Polyethylene Glycol (Miralax (For Daily Use) -) 17 gm PO BID [facility] Last Admin: 10/15/19 10:10 Dose: Not Given Documented by: - Objective Vital Signs: Vital Signs Temperature 98.3 F 10/15/19 13:55 Pulse Rate 90 10/15/19 13:55 Respiratory Rate 18 10/15/19 13:55 Blood Pressure 117/52 L 10/15/19 13:55 O2 Sat by Pulse Oximetry (%) 100 10/15/19 09:00 Constitutional: Yes: Calm Eyes: Yes: Conjunctiva Clear HENT: Yes: Atraumatic Neck: Yes: Supple Cardiovascular: Yes: S1, S2 Respiratory: Yes: CTA Bilaterally Gastrointestinal: Yes: Normal Bowel Sounds, Soft Genitourinary: Yes: WNL Musculoskeletal: Yes: WNL Edema: Yes Edema: LLE: 2+, RLE: 2+ Neurological: Yes: Oriented Psychiatric: Yes: Oriented Labs: CBC, BMP 10/15/19 07:20 10/15/19 07:20 INR, PTT INR 1.59 (0.83-1.09) H 10/01/19 08:18 Assessment/Plan Current Medications Generic Name Dose Route Start Last Admin Trade Name Freq PRN Reason Stop Dose Admin Acetaminophen 650 mg 10/11/19 12:26 10/14/19 21:34 Tylenol - PO 650 mg Q6H PRN Administration PAIN LEVEL 6-10 Apixaban 2.5 mg 10/04/19 22:00 10/15/19 10:10 Eliquis - PO 2.5 mg BID [facility] Administration Bisacodyl 10 mg 10/14/19 13:59 10/15/19 13:05 Dulcolax Suppository - AL 10 mg PRN PRN Administration CONSTIPATION Carvedilol 37.5 mg 10/14/19 22:00 10/15/19 10:09 Coreg - PO 37.5 mg BID [facility] Administration Docusate Sodium 300 mg 10/01/19 22:00 10/14/19 21:36 Colace - PO Not Given HS [facility] Furosemide 80 mg 10/16/19 06:00 Lasix - PO BID@0600,1400 [facility] Hydralazine HCl 10 mg 09/29/19 14:00 10/15/19 14:18 Apresoline - PO 10 mg TID [facility] Administration Insulin Aspart 1 vial 10/01/19 07:00 10/15/19 11:33 Novolog Vial Sliding Scale - SQ 4 units ACHS [facility] Administration Protocol Lactobacillus Acidophilus 1 tab 09/29/19 14:30 10/15/19 10:09 Bacid - PO 1 tab DAILY [facility] Administration Letrozole 2.5 mg 10/01/19 10:00 10/15/19 10:10 Femara - PO 2.5 mg DAILY [facility] Administration Levothyroxine Sodium 100 mcg 10/01/19 07:00 10/15/19 06:35 Synthroid - PO 100 mcg ACBK [facility] Administration Lidocaine 1 patch 10/13/19 14:00 10/15/19 10:10 Lidoderm Patch - TP 1 patch DAILY [facility] Administration Miscellaneous 1 each 10/13/19 22:00 10/14/19 21:36 Lidoderm Patch Removal MC 1 each DAILY@2200 [facility] Administration Nitroglycerin 1 inch 10/03/19 14:26 10/15/19 12:03 Nitro-Bid 2% Paste - TD Not Given Q6HPO [facility] Pantoprazole Sodium 40 mg 10/01/19 10:00 10/15/19 10:11 Protonix - PO 40 mg DAILY [facility] Administration Polyethylene Glycol 17 gm 10/01/19 10:00 10/15/19 10:10 Miralax (For Daily Use) - PO Not Given BID [facility] Impression 1. proteinuria 2. hypothyroid 3. HTN 4. DM 5. fluid overload 6. breast cancer 7. anemia 8. CKD 9. CHF 10. hyponatremia 11. hypokalemia 12. MAURICE Plan - renal function improving - cont with lasix - will also give a dose of aldactone today - repeat labs in am - monitor lytes - 2 gram sodium diet - we may not be able to achieve a completely euvolemic state secondary to compromised renal function - monitor volume status
--- NOTE | 2019-10-15 14:39 | PN ---
Progress Note, Physician Chief Complaint: no CP or SOB. History of Present Illness: CKD CHF AF - Current Medication List Current Medications: Active Medications Acetaminophen (Tylenol -) 650 mg PO Q6H PRN PRN Reason: PAIN LEVEL 6-10 Last Admin: 10/14/19 21:34 Dose: 650 mg Documented by: Apixaban (Eliquis -) 2.5 mg PO BID [facility] Last Admin: 10/15/19 10:10 Dose: 2.5 mg Documented by: Bisacodyl (Dulcolax Suppository -) 10 mg [place] PRN PRN PRN Reason: CONSTIPATION Last Admin: 10/15/19 13:05 Dose: 10 mg Documented by: Carvedilol (Coreg -) 37.5 mg PO BID [facility] Last Admin: 10/15/19 10:09 Dose: 37.5 mg Documented by: Docusate Sodium (Colace -) 300 mg PO HS [facility] Last Admin: 10/14/19 21:36 Dose: Not Given Documented by: Furosemide (Lasix -) 80 mg PO BID@0600,1400 [facility] Hydralazine HCl (Apresoline -) 10 mg PO TID [facility] Last Admin: 10/15/19 14:18 Dose: 10 mg Documented by: Insulin Aspart (Novolog Vial Sliding Scale -) 1 vial SQ [facility]; Protocol Last Admin: 10/15/19 11:33 Dose: 4 units Documented by: Lactobacillus Acidophilus (Bacid -) 1 tab PO DAILY [facility] Last Admin: 10/15/19 10:09 Dose: 1 tab Documented by: Letrozole (Femara -) 2.5 mg PO DAILY [facility] Last Admin: 10/15/19 10:10 Dose: 2.5 mg Documented by: Levothyroxine Sodium (Synthroid -) 100 mcg PO ACBK [facility] Last Admin: 10/15/19 06:35 Dose: 100 mcg Documented by: Lidocaine (Lidoderm Patch -) 1 patch TP DAILY [facility] Last Admin: 10/15/19 10:10 Dose: 1 patch Documented by: Miscellaneous (Lidoderm Patch Removal) 1 each MC DAILY@2200 [facility] Last Admin: 10/14/19 21:36 Dose: 1 each Documented by: Nitroglycerin (Nitro-Bid 2% Paste -) 1 inch TD Q6HPO [facility] Last Admin: 10/15/19 12:03 Dose: Not Given Documented by: Pantoprazole Sodium (Protonix -) 40 mg PO DAILY [facility] Last Admin: 10/15/19 10:11 Dose: 40 mg Documented by: Polyethylene Glycol (Miralax (For Daily Use) -) 17 gm PO BID [facility] Last Admin: 10/15/19 10:10 Dose: Not Given Documented by: - Objective Vital Signs: Vital Signs Temperature 98.3 F 10/15/19 13:55 Pulse Rate 90 10/15/19 13:55 Respiratory Rate 18 10/15/19 13:55 Blood Pressure 117/52 L 10/15/19 13:55 O2 Sat by Pulse Oximetry (%) 100 10/15/19 09:00 Constitutional: Yes: No Distress Cardiovascular: Yes: Pulse Irregular Respiratory: Yes: Other (decreased breath sounds bases) Gastrointestinal: Yes: Soft (nt) Edema: Yes Edema: LLE: 2+, RLE: 2+ Neurological: Yes: Alert, Oriented Labs: CBC, BMP 10/15/19 07:20 10/15/19 07:20 INR, PTT INR 1.59 (0.83-1.09) H 10/01/19 08:18 Assessment/Plan Assessment/Plan echo 03/2019 nl LV function, mild MR, mild TR, PASP at least 49 mmHg IMP/REC: Acute diastolic heart failure exacerbation: - recent echo nl LV function - no signs acs - resuming aldactone per renal - now on po lasix - per d/w renal it is likely her renal fxn will not improve with effective diuresis - refused dialysis - cont nitrates for cardiorenal syndrome HTN: - bp stable - cont current meds crow on CKD: improving - Baseline creat from last admission is 2-2.5, elevated now, likely cardiorenal - renal following PAF: -cont coreg for rate control -cont eliquis low dose (age, creatinine) liver mass: -heme/onc following
[2019-10-15] MEDS: oxyCODONE HCL 5 MG TABLET PO PRN (16:34)
--- NOTE | 2019-10-15 18:37 | PN ---
Teaching Attending Note Name of Resident: Kylah Denton ATTENDING PHYSICIAN STATEMENT I saw and evaluated the patient. I reviewed the resident's note and discussed the case with the resident. I agree with the resident's findings and plan as documented. SUBJECTIVE: No fever or chills. No CABRALES , no SOB. no abd pain . has aches all over . OBJECTIVE: NAD, awake, alert CV: RRR Lungs:crackles at bases Ext: 2+ edema on ankles and less on legs skin : sacral area was not examined today ASSESSMENT AND PLAN: 89 y/o lady with h/o diastolic CHF, a-fib (on Eliquis), CKD, breast cancer s/p mastectomy, myelodysplasia, IDDM type 2, hypothyroidism, HLD, CVA, and GERD who presented with SOB adn LE edema and was diagnosed with D CHF exacerbation Acute on chronic diastolic heart failure : improved ESBL producing Klebsiealla complicated UTI/pyelonephritis : treated MAURICE on CKD : improved Liver mass retroperitoneal LAP b/l adrenal nodules h/o MDS chronic normocytic anemia persistant leukocytosis prolonged QTC hyponatremia high AG metabolic acidosis :resolved prolonged QTC h/o A fib Stage 2 sacral decubiti Plan: - persistent leukocytosis might not be due to infection. ? MDS ---> leukemia. this was discussed with her. BM biopsy was brought up and further w/u was suggested. She is not sure if she wants to do that. but would like to discuss further , as her EBC was elevated for years. 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 will d/w heme - cont po lasix - cont eliqis - icont coreg at current dose. HR is controlled now - cont bowel regimen - add small dose of oxy 2.5 mg q 6 PRN for pain - frequent turning. cont air mattress - cont femara cont placement options discussion
--- NOTE | 2019-10-15 20:43 | PN ---
Progress Note (short form) - Note Progress Note: PAatient seen and examiend c/o itching/ rash , AFVSS MAculopapular rash, generalized, peeling of hands Cor: RSR, No murmurs, No gallops Lungs: Clear to P&A Abd: Soft, Normal bowel sounds, No organomegaly Ext:No significant edema Left breast -lower outer quadrant induration LAbs/Meds reviewed A/P 89 y/o lady with h/o diastolic CHF, a-fib (on Eliquis), CKD, breast cancer s/p mastectomy, myelodysplasia, IDDM type 2, hypothyroidism, HLD, CVA, and GERD who presented with SOB adn LE edema and was diagnosed with D CHF exacerbation Acute on chronic diastolic heart failure : improved ESBL producing Klebsiealla complicated UTI/pyelonephritis : treated MAURICE on CKD : improved Liver mass retroperitoneal LAP b/l adrenal nodules h/o MDS /MPD chronic normocytic anemia persistant leukocytosis h/o A fib Stage 2 sacral decubiti Left hepatic lobe lesion 4cm/rt. hepatic lobe lesions ---? metastatic breast cancer Patient reluctant to consider further w/u, reasonsably so given her age and functional status swithc letrozole ? faslodex ---- to f/u wit primary oncologist regarding this h/o MDS/MPD: Flow suggestive of MPD Eosinophilia: ongoing allergic reaction No evidence of leukemia Rash/eosinophilia: Derm consult Triamcinolone cream atarax Thrombocytopenia : ? ongoing infection/inflammation chck cultures On eliquis
--- NOTE | 2019-10-15 21:09 | PN ---
Physical Exam: SUBJECTIVE: Patient seen and examined bedside no acute complaints. No distress overnight. OBJECTIVE: Vital Signs Period Temp Pulse Resp BP Sys/Hernandez Pulse Ox Last 24 Hr 98 F-99.5 F 86-107 18-18 100-134/50-65 100 GENERAL: The patient is awake, alert, and oriented, in no acute distress. LUNGS: Breath sounds equal, BL crackles increased from yesterday. HEART: Regular rate and rhythm ABDOMEN: Soft, nontender, nondistended,. EXTREMITIES: BL + 1 pitting edema on ankles, overall leg edema continuing to improve. Sacral decubitus ulcer stage 2 Laboratory Results - last 24 hr 10/14/19 10/15/19 10/15/19 21:30 06:32 07:20 WBC 17.4 H RBC 2.54 L Hgb 7.5 L Hct 23.8 L MCV 94.0 MCH 29.5 MCHC 31.4 L RDW 20.1 H Plt Count 63 L MPV 9.6 D Absolute Neuts (auto) 13.1 H Neutrophils % 75.4 Neutrophils % (Manual) 53.9 Band Neutrophils % 11.2 Lymphocytes % 6.2 L D Lymphocytes % (Manual) 3.4 L D Monocytes % 8.0 Monocytes % (Manual) 11 H D Eosinophils % 9.6 H Eosinophils % (Manual) 10.1 H Basophils % 0.8 Basophils % (Manual) 2.3 H Myelocytes % (Man) 5 H D Promyelocytes % (Man) 0 Blast Cells % (Manual) 0 Nucleated RBC % 1 H Metamyelocytes 3 H D Hypochromia 1+ Platelet Estimate Decreased Polychromasia 1+ Poikilocytosis 0 Anisocytosis 1+ Microcytosis 1+ Macrocytosis 1+ Sodium Potassium Chloride Carbon Dioxide Anion Gap BUN Creatinine Est GFR (CKD-EPI)AfAm Est GFR (CKD-EPI)NonAf POC Glucometer 200 139 Random Glucose Calcium Phosphorus Magnesium 10/15/19 10/15/19 07:20 11:30 WBC RBC Hgb Hct MCV MCH MCHC RDW Plt Count MPV Absolute Neuts (auto) Neutrophils % Neutrophils % (Manual) Band Neutrophils % Lymphocytes % Lymphocytes % (Manual) Monocytes % Monocytes % (Manual) Eosinophils % Eosinophils % (Manual) Basophils % Basophils % (Manual) Myelocytes % (Man) Promyelocytes % (Man) Blast Cells % (Manual) Nucleated RBC % Metamyelocytes Hypochromia Platelet Estimate Polychromasia Poikilocytosis Anisocytosis Microcytosis Macrocytosis Sodium 138 Potassium 3.5 Chloride 103 Carbon Dioxide 23 Anion Gap 12 BUN 103.7 H Creatinine 2.8 H Est GFR (CKD-EPI)AfAm 16.66 Est GFR (CKD-EPI)NonAf 14.37 POC Glucometer 244 Random Glucose 144 H Calcium 7.7 L Phosphorus 3.0 Magnesium 1.6 L Active Medications Generic Name Dose Route Start Last Admin Trade Name Freq PRN Reason Stop Dose Admin Acetaminophen 650 mg 10/11/19 12:26 10/14/19 21:34 Tylenol - PO 650 mg Q6H PRN Administration PAIN LEVEL 6-10 Apixaban 2.5 mg 10/04/19 22:00 10/15/19 10:10 Eliquis - PO 2.5 mg BID AMRIT Administration Bisacodyl 10 mg 10/14/19 13:59 10/15/19 13:05 Dulcolax Suppository - NV 10 mg PRN PRN Administration CONSTIPATION Carvedilol 37.5 mg 10/14/19 22:00 10/15/19 10:09 Coreg - PO 37.5 mg BID AMRIT Administration Docusate Sodium 300 mg 10/01/19 22:00 10/14/19 21:36 Colace - PO Not Given HS AMRIT Furosemide 80 mg 10/16/19 06:00 Lasix - PO BID@0600,1400 AMRIT Hydralazine HCl 10 mg 09/29/19 14:00 10/15/19 14:18 Apresoline - PO 10 mg TID AMRIT Administration Insulin Aspart 1 vial 10/01/19 07:00 10/15/19 16:36 Novolog Vial Sliding Scale - SQ Not Given ACHS AMRIT Protocol Lactobacillus Acidophilus 1 tab 09/29/19 14:30 10/15/19 10:09 Bacid - PO 1 tab DAILY AMRIT Administration Letrozole 2.5 mg 10/01/19 10:00 10/15/19 10:10 Femara - PO 2.5 mg DAILY AM[facility]IT Administration Levothyroxine Sodium 100 mcg 10/01/19 07:00 10/15/19 06:35 Synthroid - PO 100 mcg ACBK AMRIT Administration Lidocaine 1 patch 10/13/19 14:00 10/15/19 10:10 Lidoderm Patch - TP 1 patch DAILY [facility]RIT Administration Miscellaneous 1 each 10/13/19 22:00 10/14/19 21:36 Lidoderm Patch Removal MC 1 each DAILY@2200 [facility]RIT Administration Nitroglycerin 1 inch 10/03/19 14:26 10/15/19 17:57 Nitro-Bid 2% Paste - TD 1 inch Q6HPO AMRIT Administration Oxycodone HCl 2.5 mg 10/15/19 16:04 10/15/19 16:34 Roxicodone - PO 2.5 mg Q6H PRN Administration PAIN LEVEL 6-10 Pantoprazole Sodium 40 mg 10/01/19 10:00 10/15/19 10:11 Protonix - PO 40 mg DAILY AMRIT Administration Polyethylene Glycol 17 gm 10/01/19 10:00 10/15/19 10:10 Miralax (For Daily Use) - PO Not Given BID [facility] Triamcinolone Acetonide 1 applic 10/15/19 22:00 Aristocort 0.1% Cream - TP BID [facility] ASSESSMENT/PLAN: 89F yo female with pmhx of diastolic CHF, a-fib (on Eliquis), CKD, breast cancer s/p mastectomy, myelodysplasia, IDDM type 2, hypothyroidism, HLD, CVA, and GERD presents with b/l leg swelling and nausea for "weeks" and back pain for several days admitted for acute CHF exacerbation. Thrombocytopenia and Leukocytosis platelets have been dropping over last few days 81>>>68>>>64 WBC count also continuously elevating concerned for MDS morphing into Leukemia. Consulted Dr. Reynaga - patient and heme/onc both agree that no bone biopsy should be done -counts have been stable -continue to monitor and treat symptoms Acute on Chronic Diastolic CHF Exacerbation; -Daily weights, I/Os, 2gm Na diet w/ fluid restriction -Cardio consulted; currently on Lasix 80 BID IV - to switch back to PO lasix tomorrow AM 10/13 - patient tolerating -Cont O2 NC, currently on 2L intermittently -Repeat Echo (10/03) showed LV wnl, EF 55-60%, atria severely dilated, RV borderline in size and fxn, AV sclerotic, MV severe annular calcification, trace MR, mod to sev TR and sev pHTN, possible small pericardial effusion - patient increasingly tachy - increase coreg to 37.5 BID (10/13) New 4 cm L Hepatic Lobe lesion; in setting of hx of breast cancer and MDS -Onc consulted- Dr. Sullivan CA 27-[address] Sullivan could not be reached ([phone]) - Cont home meds: Letrozole 2.5 QD Stage 2 sacral ulcer; not infected -Santyl and bandage -Frequent turning and positioning -Dilaudid 0.5 mg Q6H PRN for pain MAURICE on CKD; BUN/Cr worsening. -Hold amlodipine, hydralazine to allow for pressure drop and prevent hypoperfusion from IV Lasix -serial BMPs to monitor Cr (baseline near 2) - Phosphorus has normalized - Per renal, pt and family do not want HD - Nephro recs - continue to give lasix - order IV push of lasix because of increased lung crackles. Back to PO lasixs tomorrow ESBL UTI; - resolved/ repeat UA on 10/13 negative No urinary symptoms -UCx +ESBL Kleb pneumo; repeat UCx +Group D strep/enterococcus -Per ID, Ertapenem 500 mg QD completed today. Started on ZYVOX 600MG PO BID X 3D completed Hyponatremia; likely 2/2 fluid overload. Resolved. -2gm Na diet w/ fluid restriction -IV diuresis -Renal consulted Anemia; likely multi-factorial in setting of CKD, myelodysplasia -Transfuse PRN to maintain Hgb >7 Generalized abdominal pain; 2/2 constipation vs. liver mass -Miralax 17 gm BID for constipation -QTc 484, try to avoid Zofran for nausea/vomiting Hypothyroidism; Cont home meds: Synthroid 100 Prophylaxis DVT: Cont home Eliquis 2.5 BID - Team spoke to cardiology on 10/05/ regarding patient's kidney function and Eliquis, Cardiology recommended to maintain eliquis as is. GI: Cont home Protonix 40 DISPO: Spoke with complex case manager Isabella, she is going to put in for new facilities Will continue discussion with patient and social work Visit type - Emergency Visit Emergency Visit: Yes ED Registration Date: 09/24/19 Care time: The patient presented to the Emergency Department on the above date and was hospitalized for further evaluation of their emergent condition. - New Patient This patient is new to me today: No - Critical Care Critical Care patient: No - Discharge Referral Referred to [facility] Yes ATTENDING PHYSICIAN STATEMENT I saw and evaluated the patient. I reviewed the resident's note and discussed the case with the resident. I agree with the resident's findings and plan as documented. SUBJECTIVE: OBJECTIVE: ASSESSMENT AND PLAN:
[2019-10-15] MEDS: DOCUSATE SODIUM 100 MG CAPSULE (FP) PO SCH (21:56)
[2019-10-15] MEDS: TRIAMCINOLONE ACET 0.1% CREAM 15 GM TUBE TP SCH (21:57)
[2019-10-15] MEDS: LIDOCAINE PATCH REMOVAL MC SCH (21:57)
[2019-10-15] MEDS: hydrOXYzine PAMOATE 25 MG CAPSULE (FP) PO PRN (23:20)
[2019-10-16] MEDS: NITROGLYCERIN 2% OINTMENT - 1GM PACKET TD SCH ×4 (00:59→18:20)
[2019-10-16] MEDS: oxyCODONE HCL 5 MG TABLET PO PRN ×2 (02:16→23:51)
[2019-10-16] MEDS: ACETAMINOPHEN 325 MG TABLET (FP) PO PRN (02:17)
[2019-10-16] MEDS: FUROSEMIDE 40 MG TABLET (FP) PO SCH (06:31)
[2019-10-16] MEDS: hydrALAZINE HCL 10 MG TABLET PO SCH ×3 (06:31→21:37)
[2019-10-16] MEDS: INSULIN SLIDING SCALE (NOVOLOG) 1 VIAL SQ SCH ×4 (06:32→21:37)
[2019-10-16] MEDS: LEVOTHYROXINE NA 100 MCG TABLET (FP) PO SCH (06:35)
--- NOTE | 2019-10-16 07:14 | PN.HO ---
Progress Note (short form) - Note Progress Note: PAatient seen and examiend c/o itching/ rash , AFVSS MAculopapular rash, generalized, peeling of hands Cor: RSR, No murmurs, No gallops Lungs: Clear to P&A Abd: Soft, Normal bowel sounds, No organomegaly Ext:No significant edema LAbs/Meds reviewed A/P 89 y/o patient with
[2019-10-16] MEDS ORDERED: SELENIUM SULFIDE 2.25% 180 ML SHAMPOO TP PRN (08:39)
--- NOTE | 2019-10-16 08:45 | PN ---
Physical Exam: SUBJECTIVE: Patient seen and examined bedside, complaining of itchiness of her body and scalp that is worse than normal. No events overnight. OBJECTIVE: Vital Signs Period Temp Pulse Resp BP Sys/Hernandez Pulse Ox Last 24 Hr 98.1 F-99.0 F 90-107 18-20 106-141/49-73 100-100 GENERAL: The patient is awake, alert, and oriented, in no acute distress. LUNGS: Breath sounds equal, BL crackles at the bases, improved since yesterday HEART: Regular rate and rhythm ABDOMEN: Soft, nontender, nondistended. EXTREMITIES: BL + 2 pitting edema on ankles, overall leg edema continuing to improve. Sacral decubitus ulcer stage 2 SKIN: dry flaking skin with increased erythema around the chest. Scalp is also flaking. Increased patchy erythematous rash on patient chest, BL, and posterior thighs. Laboratory Results Laboratory Last Values WBC 19.5 K/mm3 (4.0-10.0) H 10/16/19 06:40 RBC 2.32 M/mm3 (3.60-5.2) L 10/16/19 06:40 Hgb 6.9 GM/dL (10.7-15.3) L* 10/16/19 06:40 Hct 22.1 % (32.4-45.2) L 10/16/19 06:40 MCV 95.1 fl (80-96) 10/16/19 06:40 MCH 29.9 pg (25.7-33.7) 10/16/19 06:40 MCHC 31.5 g/dl (32.0-36.0) L 10/16/19 06:40 RDW 20.3 % (11.6-15.6) H 10/16/19 06:40 Plt Count 63 K/MM3 (134-434) L 10/16/19 06:40 MPV 9.9 fl (7.5-11.1) 10/16/19 06:40 Absolute Neuts (auto) 15.0 K/mm3 (1.5-8.0) H 10/16/19 06:40 Total Counted 100 09/25/19 05:51 Neutrophils % 76.9 % (42.8-82.8) 10/16/19 06:40 Neutrophils % (Manual) 53.9 % (42.8-82.8) 10/15/19 07:20 Band Neutrophils % 11.2 % 10/15/19 07:20 Lymphocytes % 7.2 % (8-40) L 10/16/19 06:40 Lymphocytes % (Manual) 3.4 % (8-40) L D 10/15/19 07:20 Monocytes % 7.5 % (3.8-10.2) 10/16/19 06:40 Monocytes % (Manual) 11 % (3.8-10.2) H D 10/15/19 07:20 Eosinophils % 7.8 % (0-4.5) H 10/16/19 06:40 Eosinophils % (Manual) 10.1 % (0-4.5) H 10/15/19 07:20 Basophils % 0.6 % (0-2.0) 10/16/19 06:40 Basophils % (Manual) 2.3 % (0-2.0) H 10/15/19 07:20 Myelocytes % (Man) 5 % (0-2) H D 10/15/19 07:20 Promyelocytes % (Man) 0 % (0-2) 10/15/19 07:20 Blast Cells % (Manual) 0 % (0-0) 10/15/19 07:20 Nucleated RBC % 0 % (0-0) 10/16/19 06:40 Metamyelocytes 3 % (0-2) H D 10/15/19 07:20 Hypochromia 1+ 10/15/19 07:20 Platelet Estimate Decreased 10/15/19 07:20 Platelet Comment Present 10/14/19 07:13 Polychromasia 1+ 10/15/19 07:20 Poikilocytosis 0 10/15/19 07:20 Basophilic Stippling 1+ 10/02/19 07:10 Anisocytosis 1+ 10/15/19 07:20 Microcytosis 1+ 10/15/19 07:20 Macrocytosis 1+ 10/15/19 07:20 Spherocytes 1+ 10/01/19 08:18 Target Cells 2+ 09/30/19 08:06 Tear Drop Cells 1+ 10/01/19 08:18 Ovalocytes 1+ 09/28/19 05:22 Stomatocytes 1+ 10/01/19 08:18 Fragmented RBCs 1+ 10/01/19 08:18 PT with INR 18.90 SEC (9.7-13.0) H 10/01/19 08:18 INR 1.59 (0.83-1.09) H 10/01/19 08:18 PTT (Actin FS) 30.4 SECONDS (25.2-36.5) 09/24/19 16:49 Sodium 135 mmol/L (136-145) L 10/16/19 06:40 Potassium 3.5 mmol/L (3.5-5.1) 10/16/19 06:40 Chloride 100 mmol/L (98-107) 10/16/19 06:40 Carbon Dioxide 24 mmol/L (21-32) 10/16/19 06:40 Anion Gap 11 MMOL/L (8-16) 10/16/19 06:40 BUN 98.6 mg/dL (7-18) H 10/16/19 06:40 Creatinine 2.7 mg/dL (0.55-1.3) H 10/16/19 06:40 Est GFR (CKD-EPI)AfAm 17.41 10/16/19 06:40 Est GFR (CKD-EPI)NonAf 15.02 10/16/19 06:40 POC Glucometer 169 UNITS (80-120) 10/16/19 05:43 Random Glucose 164 mg/dL (74-106) H 10/16/19 06:40 Serum Osmolality 305 mosm/kg (278-305) 09/26/19 05:52 Lactic Acid 1.0 mmol/L (0.4-2.0) 09/24/19 19:10 Calcium 7.5 mg/dL (8.5-10.1) L 10/16/19 06:40 Phosphorus 3.2 mg/dL (2.5-4.9) 10/16/19 06:40 Magnesium 1.5 mg/dL (1.8-2.4) L 10/16/19 06:40 Iron 31 ug/dL (50-175) L 09/26/19 19:40 TIBC 202 ug/dL (250-450) L 09/26/19 19:40 Iron Saturation 15 % (17.5-39) L 09/26/19 19:40 Unsaturated IBC 171 ug/dL (200-275) L 09/26/19 19:40 Ferritin 986.2 ng/ml (8-388) H 09/26/19 19:40 Total Bilirubin 0.4 mg/dL (0.2-1) 10/13/19 07:50 AST 16 U/L (15-37) 10/13/19 07:50 ALT 6 U/L (13-61) L 10/13/19 07:50 Alkaline Phosphatase 251 U/L (45-117) H 10/13/19 07:50 Troponin I < 0.02 ng/ml (0.00-0.05) 09/24/19 16:49 B-Natriuretic Peptide 85113.9 pg/ml (5-450) H 09/24/19 16:49 Total Protein 6.3 g/dl (6.4-8.2) L 10/13/19 07:50 Albumin 2.0 g/dl (3.4-5.0) L 10/13/19 07:50 Carcinoembryonic Ag 6.4 ng/mL (0.0-4.7) H 10/02/19 07:10 CA 27-29 75 U/mL (0.0-38.6) H 10/02/19 07:10 Urine Color Yellow 10/14/19 07:00 Urine Appearance Clear 10/14/19 07:00 Urine pH 5.5 (5.0-8.0) 10/14/19 07:00 Ur Specific [place] 1.013 (1.010-1.035) 10/14/19 07:00 Urine Protein 3+ (NEGATIVE) H 10/14/19 07:00 Urine Glucose (UA) Trace (NEGATIVE) 10/14/19 07:00 Urine Ketones Negative (NEGATIVE) 10/14/19 07:00 Urine Blood Negative (NEGATIVE) 10/14/19 07:00 Urine Nitrite Negative (NEGATIVE) 10/14/19 07:00 Urine Bilirubin Negative (NEGATIVE) 10/14/19 07:00 Urine Urobilinogen 0.2 mg/dL (0.2-1.0) 10/14/19 07:00 Ur Leukocyte Esterase Negative (NEGATIVE) 10/14/19 07:00 Urine WBC (Auto) 1325 /uL (0-25.8) 09/24/19 20:45 Urine RBC (Auto) 38 /uL (0-23.9) 10/14/19 07:00 Urine Casts (Auto) 1 /uL (0-3.1) 10/14/19 07:00 U Epithel Cells (Auto) 19 /uL (0-25.1) 10/14/19 07:00 Urine Bacteria (Auto) 6663 /uL (0-1359) 10/14/19 07:00 Urine Yeast (Auto) Mod (NEGATIVE) 10/14/19 07:00 Urine Osmolality 287 mosm/kg (300-900) L 09/25/19 12:15 Ur Random Sodium 38 MMOL/L (40-220) L 09/25/19 12:15 Stool Occult Blood Negative (NEGATIVE) 09/26/19 17:58 COVID-19 (TOYA) Not detected (Not Detected) 09/24/19 20:54 Anti-A Titer Cancelled 10/02/19 17:00 Blood Type Cancelled 10/02/19 17:00 Antibody Screen Cancelled 10/02/19 17:00 Crossmatch See Detail 10/02/19 16:35 Active Medications Generic Name Dose Route Start Last Admin Trade Name Freq PRN Reason Stop Dose Admin Acetaminophen 650 mg 10/11/19 12:26 10/16/19 02:17 Tylenol - PO 650 mg Q6H PRN Administration PAIN LEVEL 6-10 Apixaban 2.5 mg 10/04/19 22:00 10/15/19 21:56 Eliquis - PO 2.5 mg BID AMRIT Administration Bisacodyl 10 mg 10/14/19 13:59 10/15/19 13:05 Dulcolax Suppository - DE 10 mg PRN PRN Administration CONSTIPATION Carvedilol 37.5 mg 10/14/19 22:00 10/15/19 21:56 Coreg - PO 37.5 mg BID AMRIT Administration Docusate Sodium 300 mg 10/01/19 22:00 10/15/19 21:56 Colace - PO 300 mg HS AMRIT Administration Furosemide 80 mg 10/16/19 06:00 10/16/19 06:31 Lasix - PO Not Given BID@0600,1400 AMRIT Hydralazine HCl 10 mg 09/29/19 14:00 10/16/19 06:31 Apresoline - PO Not Given TID AMRIT Hydroxyzine Pamoate 25 mg 10/15/19 21:24 10/15/19 23:20 Vistaril - PO 25 mg Q8H PRN Administration FOR ITCHING Insulin Aspart 1 vial 10/01/19 07:00 10/16/19 06:32 Novolog Vial Sliding Scale - SQ 2 units ACHS AMRIT Administration Protocol Lactobacillus Acidophilus 1 tab 09/29/19 14:30 10/15/19 10:09 Bacid - PO 1 tab DAILY AMRIT Administration Letrozole 2.5 mg 10/01/19 10:00 10/15/19 10:10 Femara - PO 2.5 mg DAILY AMRIT Administration Levothyroxine Sodium 100 mcg 10/01/19 07:00 10/16/19 06:35 Synthroid - PO 100 mcg ACBK AMRIT Administration Lidocaine 1 patch 10/13/19 14:00 10/15/19 10:10 Lidoderm Patch - TP 1 patch DAILY AMRIT Administration Miscellaneous 1 each 10/13/19 22:00 10/15/19 21:57 Lidoderm Patch Removal MC 1 each DAILY@2200 AMRIT Administration Nitroglycerin 1 inch 10/03/19 14:26 10/16/19 06:31 Nitro-Bid 2% Paste - TD Not Given Q6HPO AMRIT Non-Formulary Medication 1 each 10/16/19 08:37 Patient's Own Med TP BID PRN FOR ITCHING Oxycodone HCl 2.5 mg 10/15/19 16:04 10/16/19 02:16 Roxicodone - PO 2.5 mg Q6H PRN Administration PAIN LEVEL 6-10 Pantoprazole Sodium 40 mg 10/01/19 10:00 10/15/19 10:11 Protonix - PO 40 mg DAILY AMRIT Administration Polyethylene Glycol 17 gm 10/01/19 10:00 10/15/19 21:57 Miralax (For Daily Use) - PO Not Given BID AMRIT Selenium Sulfide 1 applic 10/16/19 08:39 Selenium Sulfide 2.25% Shampoo TP 10/23/19 08:39 DAILY PRN FOR ITCHING Triamcinolone Acetonide 1 applic 10/15/19 22:00 10/15/19 21:57 Aristocort 0.1% Cream - TP 1 applic BID AMRIT Administration ASSESSMENT/PLAN: 89F yo female with pmhx of diastolic CHF, a-fib (on Eliquis), CKD, breast cancer s/p mastectomy, myelodysplasia, IDDM type 2, hypothyroidism, HLD, CVA, and GERD presents with b/l leg swelling and nausea for "weeks" and back pain for several days admitted for acute CHF exacerbation. Anemia; likely multi-factorial in setting of CKD, myelodysplasia -Today Hbg dropped from 7.5 to 6.9 1 PRBC orderd - FOBT today - Continue to transfuse PRN to maintain Hgb >7 MAURICE on CKD; BUN/Cr continues to improve -serial BMPs to monitor Cr (baseline near 2) peaked at 3.6 on 10/06 - today 2.7 -skin flaking may be due to renal disease (xerosis cutis) -ordered Sarna cream lotion for itching/dryness & selenium sulfide shampoo for symptom relief Thrombocytopenia and Leukocytosis platelets have been dropping over last few days 81>>>68>>>64 WBC count also continuously elevating concerned for MDS morphing into Leukemia. Consulted Dr. Reynaga - patient and heme/onc both agree that no bone biopsy should be done - counts have been stable - flow cytometry did not show AML - continue to monitor and treat symptoms - concerned that rash is manifestation of underlying infection - derm consult was placed - CXR ordered 10/15 - waiting on final read but initial impression is less congestion than previous xray with no acute Acute on Chronic Diastolic CHF Exacerbation; -Daily weights, I/Os, 2gm Na diet w/ fluid restriction -Cardio consulted; currently on Lasix 80 BID IV - to switch back to PO lasix tomorrow AM 10/13 - patient tolerating -Cont O2 NC, currently on 2L intermittently -Repeat Echo (10/03) showed LV wnl, EF 55-60%, atria severely dilated, RV borderline in size and fxn, AV sclerotic, MV severe annular calcification, trace MR, mod to sev TR and sev pHTN, possible small pericardial effusion - patient increasingly tachy - increase coreg to 37.5 BID (10/13) New 4 cm L Hepatic Lobe lesion; in setting of hx of breast cancer and MDS -Onc consulted- Dr. Sullivan CA 27-[address] Sullivan could not be reached ([phone]) - Cont home meds: Letrozole 2.5 QD Stage 2 sacral ulcer; not infected -Santyl and bandage -Frequent turning and positioning -Dilaudid 0.5 mg Q6H PRN for pain ESBL UTI; - resolved/ repeat UA on 10/13 negative No urinary symptoms -UCx +ESBL Kleb pneumo; repeat UCx +Group D strep/enterococcus -Per ID, Ertapenem 500 mg QD completed today. Started on ZYVOX 600MG PO BID X 3D completed Hyponatremia; likely 2/2 fluid overload. Resolved. -2gm Na diet w/ fluid restriction -IV diuresis -Renal consulted Generalized abdominal pain; 2/2 constipation vs. liver mass -Miralax 17 gm BID for constipation -QTc 484, try to avoid Zofran for nausea/vomiting Hypothyroidism; Cont home meds: Synthroid 100 Prophylaxis DVT: Cont home Eliquis 2.5 BID - Team spoke to cardiology on 10/05/ regarding patient's kidney function and Eliquis, Cardiology recommended to maintain eliquis as is. GI: Cont home Protonix 40 DISPO: Spoke with embedded case manager Isabella, she is going to put in for new facilities Will continue discussion with patient and social work Visit type - Emergency Visit Emergency Visit: Yes ED Registration Date: 09/24/19 Care time: The patient presented to the Emergency Department on the above date and was hospitalized for further evaluation of their emergent condition. - New Patient This patient is new to me today: No - Critical Care Critical Care patient: No - Discharge Referral Referred to [facility] No ATTENDING PHYSICIAN STATEMENT I saw and evaluated the patient. I reviewed the resident's note and discussed the case with the resident. I agree with the resident's findings and plan as documented. SUBJECTIVE: OBJECTIVE: ASSESSMENT AND PLAN:
[2019-10-16 08:51] LABS: BASO % 0.6 % (0-2.0); EOS % 7.8 % (0-4.5); HEMATOCRIT 22.1 % (32.4-45.2); LYMPH % 7.2 % (8-40); MCH 29.9 pg (25.7-33.7); MCHC 31.5 g/dl (32.0-36.0); MEAN CELL VOLUME 95.1 fl (80-96); MEAN PLT VOLUME 9.9 fl (7.5-11.1); MONO % 7.5 % (3.8-10.2); NEUT % 76.9 % (42.8-82.8); PLATELET COUNT 63 K/MM3 (134-434); RBC 2.32 M/mm3 (3.60-5.2); RDW 20.3 % (11.6-15.6); WHITE BLOOD COUNT 19.5 K/mm3 (4.0-10.0)
[2019-10-16 09:12] LABS: HEMOGLOBIN 6.9 GM/dL (10.7-15.3)
[2019-10-16 09:14] LABS: BLOOD UREA NITROGEN 98.6 mg/dL (7-18); CALCIUM 7.5 mg/dL (8.5-10.1); CREATININE 2.7 mg/dL (0.55-1.3); MAGNESIUM 1.5 mg/dL (1.8-2.4); PHOSPHOROUS 3.2 mg/dL (2.5-4.9); POTASSIUM 3.5 mmol/L (3.5-5.1)
[2019-10-16] MEDS: PANTOPRAZOLE 40 MG TABLET PO SCH (09:38)
[2019-10-16] MEDS: POLYETHYLENE GLYCOL 3350 119 GM BTL PO SCH ×2 (09:38→21:35)
[2019-10-16] MEDS: APIXABAN 2.5 MG TABLET PO SCH ×2 (09:38→21:37)
[2019-10-16] MEDS: CARVEDILOL 12.5 MG TABLET (FP) PO SCH ×2 (09:38→21:37)
[2019-10-16] MEDS: LIDOCAINE 5% TOPICAL PATCH TP SCH (09:39)
[2019-10-16] MEDS: LETROZOLE 2.5 MG TABLET (FP) PO SCH (09:39)
[2019-10-16] MEDS: TRIAMCINOLONE ACET 0.1% CREAM 15 GM TUBE TP SCH ×2 (09:39→21:37)
[2019-10-16] MEDS: LACTOBACILLUS ACIDOPHILUS 1 TABLET PO SCH (09:39)
--- NOTE | 2019-10-16 11:23 | PN ---
Progress Note (short form) - Note Progress Note: Chief Complaint: sob History of Present Illness: no sob, le edema better, no cp, no palps; main complaint is back pain Current Medications Generic Name Dose Route Start Last Admin Trade Name Freq PRN Reason Stop Dose Admin Acetaminophen 650 mg 10/11/19 12:26 10/16/19 02:17 Tylenol - PO 650 mg Q6H PRN Administration PAIN LEVEL 6-10 Apixaban 2.5 mg 10/04/19 22:00 10/16/19 09:38 Eliquis - PO 2.5 mg BID AMRIT Administration Bisacodyl 10 mg 10/14/19 13:59 10/15/19 13:05 Dulcolax Suppository - [place] 10 mg PRN PRN Administration CONSTIPATION Carvedilol 37.5 mg 10/14/19 22:00 10/16/19 09:38 Coreg - PO 37.5 mg BID AMRIT Administration Docusate Sodium 300 mg 10/01/19 22:00 10/15/19 21:56 Colace - PO 300 mg HS AMRIT Administration Furosemide 80 mg 10/16/19 06:00 10/16/19 06:31 Lasix - PO Not Given BID@0600,1400 AM[facility]IT Hydralazine HCl 10 mg 09/29/19 14:00 10/16/19 06:31 Apresoline - PO Not Given TID AMRIT Hydroxyzine Pamoate 25 mg 10/15/19 21:24 10/15/19 23:20 Vistaril - PO 25 mg Q8H PRN Administration FOR ITCHING Insulin Aspart 1 vial 10/01/19 07:00 10/16/19 11:09 Novolog Vial Sliding Scale - SQ 4 units ACHS AMRIT Administration Protocol Lactobacillus Acidophilus 1 tab 09/29/19 14:30 10/16/19 09:39 Bacid - PO 1 tab DAILY AMRIT Administration Letrozole 2.5 mg 10/01/19 10:00 10/16/19 09:39 Femara - PO 2.5 mg DAILY AMRIT Administration Levothyroxine Sodium 100 mcg 10/01/19 07:00 10/16/19 06:35 Synthroid - PO 100 mcg ACBK AMRIT Administration Lidocaine 1 patch 10/13/19 14:00 10/16/19 09:39 Lidoderm Patch - TP 1 patch DAILY AMRIT Administration Miscellaneous 1 each 10/13/19 22:00 10/15/19 21:57 Lidoderm Patch Removal MC 1 each DAILY@2200 AMRIT Administration Nitroglycerin 1 inch 10/03/19 14:26 10/16/19 06:31 Nitro-Bid 2% Paste - TD Not Given Q6HPO AMRIT Oxycodone HCl 2.5 mg 10/15/19 16:04 10/16/19 02:16 Roxicodone - PO 2.5 mg Q6H PRN Administration PAIN LEVEL 6-10 Pantoprazole Sodium 40 mg 10/01/19 10:00 10/16/19 09:38 Protonix - PO 40 mg DAILY AMRIT Administration Polyethylene Glycol 17 gm 10/01/19 10:00 10/16/19 09:38 Miralax (For Daily Use) - PO 17 grams BID AMRIT Administration Selenium Sulfide 1 applic 10/16/19 08:39 Selenium Sulfide 2.25% Shampoo TP 10/23/19 08:39 DAILY PRN FOR ITCHING Triamcinolone Acetonide 1 applic 10/15/19 22:00 10/16/19 09:39 Aristocort 0.1% Cream - TP 1 applic BID AMRIT Administration Vital Signs Period Temp Pulse Resp BP Sys/Hernandez Pulse Ox Last 24 Hr 98.1 F-99.0 F 90-107 18-20 106-141/49-73 100 Constitutional: Yes: No Distress, Calm Eyes: No: Sclera Icterus HENT: No: Nasal Congestion Cardiovascular: Yes: Pulse Irregular, JVD, S1, S2, Other (PMI non diplaced). No: Gallop, Murmur Respiratory: Yes: Regular, CTA Bilaterally. No: Accessory Muscle Use Gastrointestinal: Yes: Normal Bowel Sounds, Soft. No: Tenderness Extremities: No: Cold, Cyanosis Edema: 1+ le edema bl Integumentary: No: Jaundice Neurological: Yes: Alert, Oriented (x3) Psychiatric: No: Agitated Labs: CBC, BMP 10/16/19 06:40 10/16/19 06:40 Assessment/Plan echo 03/2019 nl LV function, mild MR, mild TR, PASP at least 49 mmHg IMP/REC: Acute diastolic heart failure exacerbation: - recent echo nl LV function - no signs acs - holding aldactone - now on po lasix - per d/w renal it is likely her renal fxn will not improve with effective diuresis - refused dialysis - cont nitrates for cardiorenal syndrome HTN: - bp stable - cont current meds crow on CKD: - Baseline creat from last admission is 2-2.5, elevated now, likely cardiorenal - renal following PAF: -cont coreg for rate control -cont eliquis low dose (age, creatinine) liver mass: -heme/onc following
[2019-10-16 12:19] LABS: ANISOCYTOSIS 2+; PLATELET ESTIMATE DECREASED; TEAR DROP CELLS 1+
[2019-10-16] MEDS ORDERED: FUROSEMIDE 40 MG/4 ML INJECTABLE VIAL IVPUSH ONE (13:00)
--- NOTE | 2019-10-16 13:02 | PN ---
Teaching Attending Note Name of Resident: Kylah Denton ATTENDING PHYSICIAN STATEMENT I saw and evaluated the patient. I reviewed the resident's note and discussed the case with the resident. I agree with the resident's findings and plan as documented. SUBJECTIVE: no fever or chills. No SOB. has no complaints today OBJECTIVE: NAD, awake, alert. CV: RRR Lungs:crackles at bases Ext: 2+ edema on ankles and less on legs skin: sacral area with small stage 2 decubiti, not changed from before with surrounding erythema. no discharge maculopapular rash on upper chest , and on back, buttocks, and posterior thighs. peticheal rash on knees. not changed form yesterday ASSESSMENT AND PLAN: 89 y/o lady with h/o diastolic CHF, a-fib (on Eliquis), CKD, breast cancer s/p mastectomy, myelodysplasia, IDDM type 2, hypothyroidism, HLD, CVA, and GERD who presented with SOB adn LE edema and was diagnosed with D CHF exacerbation Acute on chronic diastolic heart failure : improved ESBL producing Klebsiealla complicated UTI/pyelonephritis : treated MAURICE on CKD : improved Liver mass retroperitoneal LAP b/l adrenal nodules h/o MDS chronic normocytic anemia persistant leukocytosis prolonged QTC hyponatremia high AG metabolic acidosis :resolved prolonged QTC h/o A fib Stage 2 sacral decubiti Plan: - d/w Dr. Reynaga. flowcytometry did not show AML. BM bx was not recommended. leukocytosis, still could be due to MDS. I doubt infection is causing the leukocytosis. will get cxray, UA, and blood cx . decub ulcer does not look infected - rash etiology is unclear. patient states she had it for 2 months . eiosenophiia is chronic but worse now. It could be due to the MDS. doubt allergic reaction - derm consult was placed . - thrombocytopenia was d/w heme. OK to cont Eliquis if plt > 45 K. etiology is not clear. ? 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 will give a unit of blood and IV lasix inplace of 2 pm po lasix - cont po lasix - cont eliqis - cont coreg at current dose. - cont bowel regimen - cont small dose of oxy 2.5 mg q 6 PRN for pain - frequent turning. cont air mattress - cont femara cont placement options discussion ASSESSMENT AND PLAN:
--- NOTE | 2019-10-16 13:40 | PN ---
Progress Note, Physician Chief Complaint: MAURICE History of Present Illness: Seen and examined at the bedside she offers no acute complaints no sob, cp, fever, chills, N/V/D making urine tolerating some foods in her diet - Current Medication List Current Medications: Active Medications Acetaminophen (Tylenol -) 650 mg PO Q6H PRN PRN Reason: PAIN LEVEL 6-10 Last Admin: 10/16/19 02:17 Dose: 650 mg Documented by: Apixaban (Eliquis -) 2.5 mg PO BID [facility] Last Admin: 10/16/19 09:38 Dose: 2.5 mg Documented by: Bisacodyl (Dulcolax Suppository -) 10 mg [place] PRN PRN PRN Reason: CONSTIPATION Last Admin: 10/15/19 13:05 Dose: 10 mg Documented by: Carvedilol (Coreg -) 37.5 mg PO BID [facility] Last Admin: 10/16/19 09:38 Dose: 37.5 mg Documented by: Docusate Sodium (Colace -) 300 mg PO HS [facility] Last Admin: 10/15/19 21:56 Dose: 300 mg Documented by: Furosemide (Lasix -) 80 mg PO BID@0600,1400 [facility] Last Admin: 10/16/19 06:31 Dose: Not Given Documented by: Hydralazine HCl (Apresoline -) 10 mg PO TID [facility] Last Admin: 10/16/19 06:31 Dose: Not Given Documented by: Hydroxyzine Pamoate (Vistaril -) 25 mg PO Q8H PRN PRN Reason: FOR ITCHING Last Admin: 10/15/19 23:20 Dose: 25 mg Documented by: Insulin Aspart (Novolog Vial Sliding Scale -) 1 vial SQ [facility]; Protocol Last Admin: 10/16/19 11:09 Dose: 4 units Documented by: Lactobacillus Acidophilus (Bacid -) 1 tab PO DAILY [facility] Last Admin: 10/16/19 09:39 Dose: 1 tab Documented by: Letrozole (Femara -) 2.5 mg PO DAILY [facility] Last Admin: 10/16/19 09:39 Dose: 2.5 mg Documented by: Levothyroxine Sodium (Synthroid -) 100 mcg PO ACBK [facility] Last Admin: 10/16/19 06:35 Dose: 100 mcg Documented by: Lidocaine (Lidoderm Patch -) 1 patch TP DAILY [facility] Last Admin: 10/16/19 09:39 Dose: 1 patch Documented by: Miscellaneous (Lidoderm Patch Removal) 1 each MC DAILY@2200 [facility] Last Admin: 10/15/19 21:57 Dose: 1 each Documented by: Nitroglycerin (Nitro-Bid 2% Paste -) 1 inch TD Q6HPO [facility] Last Admin: 10/16/19 11:45 Dose: 1 inch Documented by: Oxycodone HCl (Roxicodone -) 2.5 mg PO Q6H PRN PRN Reason: PAIN LEVEL 6-10 Last Admin: 10/16/19 02:16 Dose: 2.5 mg Documented by: Pantoprazole Sodium (Protonix -) 40 mg PO DAILY [facility] Last Admin: 10/16/19 09:38 Dose: 40 mg Documented by: Polyethylene Glycol (Miralax (For Daily Use) -) 17 gm PO BID [facility] Last Admin: 10/16/19 09:38 Dose: 17 grams Documented by: Selenium Sulfide (Selenium Sulfide 2.25% Shampoo) 1 applic TP DAILY PRN PRN Reason: FOR ITCHING Stop: 10/23/19 08:39 Triamcinolone Acetonide (Aristocort 0.1% Cream -) 1 applic TP BID [facility] Last Admin: 10/16/19 09:39 Dose: 1 applic Documented by: - Objective Vital Signs: Vital Signs Temperature 98.7 F 10/16/19 05:00 Pulse Rate 95 H 10/16/19 05:00 Respiratory Rate 20 10/16/19 05:00 Blood Pressure 106/49 L 10/16/19 05:00 O2 Sat by Pulse Oximetry (%) 100 10/15/19 21:00 Constitutional: Yes: No Distress HENT: Yes: Atraumatic Neck: Yes: Supple Cardiovascular: Yes: Regular Rate and Rhythm Respiratory: Yes: Diminished Gastrointestinal: Yes: Soft Extremities: No: Cyanosis Edema: Yes Labs: CBC, BMP 10/16/19 06:40 10/16/19 06:40 INR, PTT INR 1.59 (0.83-1.09) H 10/01/19 08:18 Assessment/Plan Impression 1. proteinuria 2. hypothyroid 3. HTN 4. DM 5. fluid overload 6. breast cancer 7. anemia 8. CKD 9. CHF 10. hyponatremia 11. hypokalemia 12. MAURICE Plan Renal function stable at this time. Continue Daily IV Lasix for mangement of edema trend renal function and electrolytes daily for PRBC transfusion today Gab Wallace DO
--- NOTE | 2019-10-16 15:11 | PN ---
Progress Note (short form) - Note Progress Note: asked to reevaluate for infection noted leukocytosis, with anemia, thrombocytopenia with eosinophilia she is itchy history of breast ca and MDS Vital Signs Period Temp Pulse Resp BP Sys/Hernandez Pulse Ox Last 24 Hr 98.1 F-99.0 F 90-107 18-20 106-141/49-73 100-100 cor-rrr lungs decreased bs at bases abd soft,nt ext no edema patchy maculopapular rash on anterior chest and back extending to back of legs petechial rash on lower legs peeling hands CBC, BMP 10/16/19 06:40 10/16/19 06:40 Microbiology 10/03/19 09:21 Urine - Urine Clean Catch Urine Culture - Final Vr Ec Faecium 09/24/19 20:45 Urine - Urine Clean Catch Urine Culture - Final Klebsiella Pneumoniae - Esbl a/p leukocytosis - appears chronic blood cultures surveillance today strongyloides ab though suspect eos due to rash or mds rash- derm for skin biopsy ckd anemia d/w hospitalist observe off antiiboitcs for now
[2019-10-16 21:25] LABS: HEMATOCRIT 26.5 % (32.4-45.2); HEMOGLOBIN 8.3 GM/dL (10.7-15.3); MCH 30.1 pg (25.7-33.7); MCHC 31.3 g/dl (32.0-36.0); MEAN CELL VOLUME 95.9 fl (80-96); PLATELET COUNT 71 K/MM3 (134-434); RBC 2.76 M/mm3 (3.60-5.2); RDW 19.3 % (11.6-15.6); WHITE BLOOD COUNT 20.4 K/mm3 (4.0-10.0)
[2019-10-16] MEDS: DOCUSATE SODIUM 100 MG CAPSULE (FP) PO SCH (21:36)
[2019-10-16] MEDS: LIDOCAINE PATCH REMOVAL MC SCH (21:37)
[2019-10-17] MEDS: NITROGLYCERIN 2% OINTMENT - 1GM PACKET TD SCH ×4 (00:08→17:42)
[2019-10-17] MEDS ORDERED: FUROSEMIDE 40 MG/4 ML INJECTABLE VIAL IVPUSH ONE (02:05)
[2019-10-17] MEDS: INSULIN SLIDING SCALE (NOVOLOG) 1 VIAL SQ SCH ×4 (06:00→22:13)
[2019-10-17] MEDS: LEVOTHYROXINE NA 100 MCG TABLET (FP) PO SCH (06:32)
[2019-10-17] MEDS: FUROSEMIDE 40 MG TABLET (FP) PO SCH ×2 (06:32→14:34)
[2019-10-17] MEDS: hydrALAZINE HCL 10 MG TABLET PO SCH ×3 (06:32→22:12)
[2019-10-17 08:21] LABS: BASO % 0.7 % (0-2.0); EOS % 8.6 % (0-4.5); HEMATOCRIT 27.1 % (32.4-45.2); HEMOGLOBIN 8.5 GM/dL (10.7-15.3); LYMPH % 6.6 % (8-40); MCH 29.8 pg (25.7-33.7); MCHC 31.5 g/dl (32.0-36.0); MEAN CELL VOLUME 94.6 fl (80-96); MEAN PLT VOLUME 9.7 fl (7.5-11.1); MONO % 8.3 % (3.8-10.2); NEUT % 75.8 % (42.8-82.8); PLATELET COUNT 76 K/MM3 (134-434); RBC 2.87 M/mm3 (3.60-5.2); RDW 19.4 % (11.6-15.6); WHITE BLOOD COUNT 18.9 K/mm3 (4.0-10.0)
[2019-10-17 08:46] LABS: BLOOD UREA NITROGEN 97.1 mg/dL (7-18); CREATININE 2.8 mg/dL (0.55-1.3); POTASSIUM 3.7 mmol/L (3.5-5.1)
[2019-10-17 08:47] LABS: CALCIUM 7.6 mg/dL (8.5-10.1); MAGNESIUM 1.6 mg/dL (1.8-2.4); PHOSPHOROUS 3.4 mg/dL (2.5-4.9)
[2019-10-17] MEDS ORDERED: PT OWN MED DRAWER 7, Y5N ONE (09:59)
[2019-10-17] MEDS: LACTOBACILLUS ACIDOPHILUS 1 TABLET PO SCH (10:43)
[2019-10-17] MEDS: APIXABAN 2.5 MG TABLET PO SCH ×2 (10:43→22:12)
[2019-10-17] MEDS: CARVEDILOL 12.5 MG TABLET (FP) PO SCH ×2 (10:43→22:12)
[2019-10-17 10:44] LABS: ANISOCYTOSIS 1+; MACROCYTOSIS 0; OVALOCYTE 1+; PLATELET ESTIMATE DECREASED; TEAR DROP CELLS 1+
[2019-10-17] MEDS: POLYETHYLENE GLYCOL 3350 119 GM BTL PO SCH ×3 (10:44→22:13)
[2019-10-17] MEDS: LETROZOLE 2.5 MG TABLET (FP) PO SCH (10:44)
[2019-10-17] MEDS: LIDOCAINE 5% TOPICAL PATCH TP SCH (10:44)
[2019-10-17] MEDS: PANTOPRAZOLE 40 MG TABLET PO SCH (10:45)
[2019-10-17] MEDS: TRIAMCINOLONE ACET 0.1% CREAM 15 GM TUBE TP SCH ×2 (10:48→22:24)
--- NOTE | 2019-10-17 11:00 | PN ---
Progress Note (short form) - Note Progress Note: Chief Complaint: sob History of Present Illness: no sob, no dizzy, no cp, no palps Current Medications Generic Name Dose Route Start Last Admin Trade Name Freq PRN Reason Stop Dose Admin Acetaminophen 650 mg 10/11/19 12:26 10/16/19 02:17 Tylenol - PO 650 mg Q6H PRN Administration PAIN LEVEL 6-10 Apixaban 2.5 mg 10/04/19 22:00 10/17/19 10:43 Eliquis - PO 2.5 mg BID [facility] Administration Bisacodyl 10 mg 10/14/19 13:59 10/15/19 13:05 Dulcolax Suppository - [place] 10 mg PRN PRN Administration CONSTIPATION Carvedilol 37.5 mg 10/14/19 22:00 10/17/19 10:43 Coreg - PO 37.5 mg BID [facility] Administration Docusate Sodium 300 mg 10/01/19 22:00 10/16/19 21:36 Colace - PO 300 mg HS [facility] Administration Furosemide 80 mg 10/16/19 06:00 10/17/19 06:32 Lasix - PO Not Given BID@0600,1400 [facility] Hydralazine HCl 10 mg 09/29/19 14:00 10/17/19 06:32 Apresoline - PO Not Given TID [facility] Hydroxyzine Pamoate 25 mg 10/15/19 21:24 10/15/19 23:20 Vistaril - PO 25 mg Q8H PRN Administration FOR ITCHING Insulin Aspart 1 vial 10/01/19 07:00 10/17/19 06:00 Novolog Vial Sliding Scale - SQ Not Given [facility] Protocol Lactobacillus Acidophilus 1 tab 09/29/19 14:30 10/17/19 10:43 Bacid - PO 1 tab DAILY [facility] Administration Letrozole 2.5 mg 10/01/19 10:00 10/17/19 10:44 Femara - PO 2.5 mg DAILY [facility] Administration Levothyroxine Sodium 100 mcg 10/01/19 07:00 10/17/19 06:32 Synthroid - PO Not Given ACBK [facility] Lidocaine 1 patch 10/13/19 14:00 10/17/19 10:44 Lidoderm Patch - TP 1 patch DAILY [facility] Administration Miscellaneous 1 each 10/13/19 22:00 10/16/19 21:37 Lidoderm Patch Removal MC 1 each DAILY@2200 [facility] Administration Nitroglycerin 1 inch 10/03/19 14:26 10/17/19 06:00 Nitro-Bid 2% Paste - TD Not Given Q6HPO [facility] Pantoprazole Sodium 40 mg 10/01/19 10:00 10/17/19 10:45 Protonix - PO 40 mg DAILY [facility] Administration Polyethylene Glycol 17 gm 10/01/19 10:00 10/17/19 10:49 Miralax (For Daily Use) - PO Not Given BID [facility] Selenium Sulfide 1 applic 10/16/19 08:39 Selenium Sulfide 2.25% Shampoo TP 10/23/19 08:39 DAILY PRN FOR ITCHING Triamcinolone Acetonide 1 applic 10/15/19 22:00 10/17/19 10:48 Aristocort 0.1% Cream - TP 1 applic BID [facility] Administration Vital Signs Period Temp Pulse Resp BP Sys/Hernandez Pulse Ox Last 24 Hr 97.5 F-98.8 F 85-104 18-20 107-124/47-64 100 Constitutional: Yes: No Distress, Calm Eyes: No: Sclera Icterus HENT: No: Nasal Congestion Cardiovascular: Yes: Pulse Irregular, JVD, S1, S2, Other (PMI non diplaced). No: Gallop, Murmur Respiratory: Yes: Regular, CTA Bilaterally. No: Accessory Muscle Use Gastrointestinal: Yes: Normal Bowel Sounds, Soft. No: Tenderness Extremities: No: Cold, Cyanosis Edema: 1+ le edema bl Integumentary: No: Jaundice Neurological: Yes: Alert, Oriented (x3) Psychiatric: No: Agitated Labs: CBC, BMP 10/17/19 07:07 10/17/19 07:07 Assessment/Plan echo 03/2019 nl LV function, mild MR, mild TR, PASP at least 49 mmHg IMP/REC: Acute diastolic heart failure exacerbation: - recent echo nl LV function - no signs acs - holding aldactone - now on po lasix - per d/w renal it is likely her renal fxn will not improve with effective diuresis - refused dialysis - cont nitrates for cardiorenal syndrome HTN: - bp stable - cont current meds crow on CKD: - Baseline creat from last admission is 2-2.5, elevated now, likely cardiorenal - renal following PAF: -cont coreg for rate control -cont eliquis low dose (age, creatinine) liver mass: -heme/onc following
--- NOTE | 2019-10-17 11:27 | EKG ---
Test Reason : Blood Pressure : / mmHG Vent. Rate : 092 BPM Atrial Rate : 108 BPM P-R Int : 000 ms QRS Dur : 104 ms QT Int : 364 ms P-R-T Axes : 000 -41 008 degrees QTc Int : 450 ms ATRIAL FIBRILLATION LEFT AXIS DEVIATION ANTERIOR INFARCT , AGE UNDETERMINED ABNORMAL ECG WHEN COMPARED WITH ECG OF 08-OCT-2019 09:43, NO SIGNIFICANT CHANGE WAS FOUND Confirmed by CHRISTINA LIMA MD ([id number]) on 10/17/2019 11:27:18 AM Referred By: Confirmed By:CHRISTINA LIMA MD
[2019-10-17] MEDS: hydrOXYzine PAMOATE 25 MG CAPSULE (FP) PO PRN (12:15)
[2019-10-17] MEDS ORDERED: MENTHOL/CAMPHOR 1 APPLIC BTL TP PRN (12:39)
[2019-10-17] MEDS ORDERED: diphenhydrAMINE HCL 25 MG CAPSULE (FP) PO ONE (13:43)
--- NOTE | 2019-10-17 15:22 | PN ---
Progress Note (short form) - Note Progress Note: Subjective: itching , no SOB, no pain. she was SOB at night and IV lasix was done Objective: Vital Signs: Last Vital Signs Temp Pulse Resp BP Pulse Ox 97.5 F L 85 18 119/47 L 100 10/17/19 05:50 10/17/19 05:50 10/17/19 05:50 10/17/19 05:50 10/16/19 21:00 Laboratory Results - last 24 hr 10/16/19 10/16/19 10/16/19 16:41 20:39 21:11 WBC 20.4 H RBC 2.76 L Hgb 8.3 L Hct 26.5 L D MCV 95.9 MCH 30.1 MCHC 31.3 L RDW 19.3 H Plt Count 71 L MPV 10.0 Absolute Neuts (auto) Neutrophils % Neutrophils % (Manual) Band Neutrophils % Lymphocytes % Lymphocytes % (Manual) Monocytes % Monocytes % (Manual) Eosinophils % Eosinophils % (Manual) Basophils % Basophils % (Manual) Myelocytes % (Man) Promyelocytes % (Man) Blast Cells % (Manual) Nucleated RBC % Metamyelocytes Hypochromia Platelet Estimate Polychromasia Poikilocytosis Basophilic Stippling Anisocytosis Microcytosis Macrocytosis Spherocytes Tear Drop Cells Ovalocytes Acanthocytes (Spur) Sodium Potassium Chloride Carbon Dioxide Anion Gap BUN Creatinine Est GFR (CKD-EPI)AfAm Est GFR (CKD-EPI)NonAf POC Glucometer 241 167 Random Glucose Calcium Phosphorus Magnesium 10/17/19 10/17/19 10/17/19 05:33 07:07 07:07 WBC 18.9 H RBC 2.87 L Hgb 8.5 L Hct 27.1 L MCV 94.6 MCH 29.8 MCHC 31.5 L RDW 19.4 H Plt Count 76 L MPV 9.7 Absolute Neuts (auto) 14.4 H Neutrophils % 75.8 Neutrophils % (Manual) 70.5 Band Neutrophils % 4.2 Lymphocytes % 6.6 L Lymphocytes % (Manual) 6.3 L D Monocytes % 8.3 Monocytes % (Manual) 6 Eosinophils % 8.6 H Eosinophils % (Manual) 8.4 H Basophils % 0.7 Basophils % (Manual) 1.1 D Myelocytes % (Man) 1 D Promyelocytes % (Man) 0 Blast Cells % (Manual) 0 Nucleated RBC % 0 Metamyelocytes 2 D Hypochromia 0 Platelet Estimate Decreased Polychromasia 1+ Poikilocytosis 1+ Basophilic Stippling 1+ Anisocytosis 1+ Microcytosis 1+ Macrocytosis 0 Spherocytes 1+ Tear Drop Cells 1+ Ovalocytes 1+ Acanthocytes (Spur) 1+ Sodium 133 L Potassium 3.7 Chloride 99 Carbon Dioxide 23 Anion Gap 11 BUN 97.1 H Creatinine 2.8 H Est GFR (CKD-EPI)AfAm 16.66 Est GFR (CKD-EPI)NonAf 14.37 POC Glucometer 145 Random Glucose 128 H Calcium 7.6 L Phosphorus 3.4 Magnesium 1.6 L 10/17/19 11:01 WBC RBC Hgb Hct MCV MCH MCHC RDW Plt Count MPV Absolute Neuts (auto) Neutrophils % Neutrophils % (Manual) Band Neutrophils % Lymphocytes % Lymphocytes % (Manual) Monocytes % Monocytes % (Manual) Eosinophils % Eosinophils % (Manual) Basophils % Basophils % (Manual) Myelocytes % (Man) Promyelocytes % (Man) Blast Cells % (Manual) Nucleated RBC % Metamyelocytes Hypochromia Platelet Estimate Polychromasia Poikilocytosis Basophilic Stippling Anisocytosis Microcytosis Macrocytosis Spherocytes Tear Drop Cells Ovalocytes Acanthocytes (Spur) Sodium Potassium Chloride Carbon Dioxide Anion Gap BUN Creatinine Est GFR (CKD-EPI)AfAm Est GFR (CKD-EPI)NonAf POC Glucometer 201 Random Glucose Calcium Phosphorus Magnesium Physical Exam: NAD, awake, alert. CV: RRR Lungs: crackles at bases. Ext: 3+ edema on legs and ankles skin: maculopapular rash on upper chest , and on back, buttocks, and posterior thighs. peticheal rash on knees. not changed form yesterday peeling skin on hands ASSESSMENT AND PLAN: 89 y/o lady with h/o diastolic CHF, a-fib (on Eliquis), CKD, breast cancer s/p mastectomy, myelodysplasia, IDDM type 2, hypothyroidism, HLD, CVA, and GERD who presented with SOB adn LE edema and was diagnosed with D CHF exacerbation Acute on chronic diastolic heart failure : improved ESBL producing Klebsiealla complicated UTI/pyelonephritis : treated MAURICE on CKD : improved Liver mass retroperitoneal LAP b/l adrenal nodules h/o MDS chronic normocytic anemia persistent leukocytosis prolonged QTC hyponatremia high AG metabolic acidosis :resolved prolonged QTC h/o A fib Stage 2 sacral decubiti Maculopapular rash Plan: - more volume overloaded today. will change to IV lasix - deerm consult pending .? bx - give baenadryl - cxray with worsening L sided findings. will diurese. 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 - cont bowel regimen - Dc Oxy as severe itching might have started after oxy - frequent turning. cont air mattress - cont femara HLOC Visit type - Emergency Visit Emergency Visit: Yes ED Registration Date: 09/24/19 Care time: The patient presented to the Emergency Department on the above date and was hospitalized for further evaluation of their emergent condition. - New Patient This patient is new to me today: No - Critical Care Critical Care patient: No
[2019-10-17] MEDS ORDERED: ALBUTEROL SO4 0.083% IH SOL 2.5 MG/3 ML VIAL.NEB. NEB ONE (20:41)
[2019-10-17] MEDS: LIDOCAINE PATCH REMOVAL MC SCH (22:13)
[2019-10-17] MEDS: DOCUSATE SODIUM 100 MG CAPSULE (FP) PO SCH (22:13)
[2019-10-18] MEDS: NITROGLYCERIN 2% OINTMENT - 1GM PACKET TD SCH ×4 (00:24→18:07)
[2019-10-18] MEDS: ACETAMINOPHEN 325 MG TABLET (FP) PO PRN (02:20)
[2019-10-18] MEDS ORDERED: PT OWN MED DRAWER 7, Y5N ONE ×4 (06:19→18:08)
[2019-10-18] MEDS: LEVOTHYROXINE NA 100 MCG TABLET (FP) PO SCH (06:42)
[2019-10-18] MEDS: INSULIN SLIDING SCALE (NOVOLOG) 1 VIAL SQ SCH ×4 (06:42→21:03)
[2019-10-18] MEDS: hydrALAZINE HCL 10 MG TABLET PO SCH ×3 (06:42→21:05)
[2019-10-18] MEDS: FUROSEMIDE 40 MG/4 ML INJECTABLE VIAL IVPUSH SCH ×2 (06:43→14:10)
[2019-10-18] MEDS ORDERED: oxyCODONE HCL 5 MG TABLET PO PRN (06:53)
[2019-10-18 08:29] LABS: BASO % 0.4 % (0-2.0); EOS % 8.4 % (0-4.5); HEMOGLOBIN 7.9 GM/dL (10.7-15.3); LYMPH % 6.4 % (8-40); MCH 30.3 pg (25.7-33.7); MCHC 31.7 g/dl (32.0-36.0); MEAN CELL VOLUME 95.5 fl (80-96); MONO % 9.9 % (3.8-10.2); NEUT % 74.9 % (42.8-82.8); PLATELET COUNT 84 K/MM3 (134-434); RBC 2.61 M/mm3 (3.60-5.2); RDW 19.7 % (11.6-15.6); WHITE BLOOD COUNT 18.4 K/mm3 (4.0-10.0)
[2019-10-18 08:56] LABS: BLOOD UREA NITROGEN 99.9 mg/dL (7-18); CALCIUM 7.3 mg/dL (8.5-10.1); CREATININE 2.8 mg/dL (0.55-1.3); MAGNESIUM 1.4 mg/dL (1.8-2.4); PHOSPHOROUS 3.2 mg/dL (2.5-4.9); POTASSIUM 3.8 mmol/L (3.5-5.1)
--- NOTE | 2019-10-18 10:00 | CONSULT ---
Admitting History and Physical - Primary Care Physician PCP: Clint Crane - Admission History of Present Illness: Per EMR- 89 y/o lady with h/o diastolic CHF, a-fib (on Eliquis), CKD, breast cancer s/p mastectomy, myelodysplasia, IDDM type 2, hypothyroidism, HLD, CVA, and GERD who presented with SOB adn LE edema and was diagnosed with D CHF exacerbation Acute on chronic diastolic heart failure : improved ESBL producing Klebsiealla complicated UTI/pyelonephritis : treated MAURICE on CKD : improved Liver mass retroperitoneal LAP b/l adrenal nodules h/o MDS chronic normocytic anemia persistant leukocytosis prolonged QTC hyponatremia high AG metabolic acidosis :resolved prolonged QTC h/o A fib Stage 2 sacral decubiti PMD:- cxray with worsening L sided findings. will diurese. doubt PNA clinically Per early am nursing today-noted to cough when drinking water. pt is also wheezing, Referred to r/o dysphagia Selected Entries 10/16/19 10/17/19 10/17/19 22:00 01:45 05:50 Diet Tolerated Fair Supper 50% Temperature Pulse Rate Respiratory 18 18 Rate Respiratory Depth Respiratory Effort Blood Pressure O2 Sat by Pulse Oximetry (%) Oxygen Delivery Method Oxygen Flow Rate 10/17/19 10/17/19 10/17/19 09:00 10:00 14:00 Diet Tolerated Supper Temperature Pulse Rate Respiratory 18 18 18 Rate Respiratory Normal Depth Respiratory Non-Labored Effort Blood Pressure O2 Sat by Pulse 100 Oximetry (%) Oxygen Delivery Nasal Cannula Method Oxygen Flow 2 Rate 10/17/19 10/17/19 10/17/19 18:00 21:00 22:00 Diet Tolerated Fair Supper 50% Temperature Pulse Rate Respiratory 18 18 18 Rate Respiratory Normal Depth Respiratory Non-Labored Effort Blood Pressure O2 Sat by Pulse 100 Oximetry (%) Oxygen Delivery Nasal Cannula Method Oxygen Flow 2 Rate 10/18/19 10/18/19 05:06 08:49 Diet Tolerated Supper Temperature 97.6 F 98.6 F Pulse Rate 97 H 94 H Respiratory 18 18 Rate Respiratory Depth Respiratory Effort Blood Pressure 116/65 110/56 L O2 Sat by Pulse Oximetry (%) Oxygen Delivery Method Oxygen Flow Rate Laboratory Tests 09/24/19 10/15/19 10/16/19 20:54 07:20 06:40 WBC 17.4 H 19.5 H COVID-19 ([facility]) Not detected 10/17/19 10/18/19 07:07 07:09 WBC 18.9 H 18.4 H COVID-19 ([facility]) On reg diet/thin liquids Tolerated pills with water for nursing sleeping when I arrived. Daytime Nursing reported good tolerance of water. Last seen by me 08/17/19 Impression: INTERMITTENT THROAT CLEARING, WITHOUT COUGHING, AFTER DRINKING THIN WATER RAPiDLY AND CONTINUOUSLY WHICH MAY BE SIGNS OF SOME ASPIRATION. With pt education to to drink slowly and carefully, single sips, chin in neutral or flexed, swallow overtly seemed functional. Pt does not want trial of thick liquids and I do believe pt is not aspirating grossly, especially when using strategies with thin liquids. - Past Medical History [employer]: Yes: CVA, Peripheral Neuropathy, Other (guillain barre syndrome, hx bacterial meningitis 1953) Cardiovascular: Yes: CHF, HTN Gastrointestinal: Yes: Constipation, GERD Renal/: Yes: Renal Failure Heme/Onc: Yes: Anemia, Cancer Psych: Yes: Psychosis Musculoskeletal: Yes: Chronic low back pain, Other Endocrine: Yes: Diabetes Mellitus - Smoking History Smoking history: Never smoked Have you smoked in the past 12 months: No Aproximately how many cigarettes per day: 0 - Alcohol/Substance Use Hx Alcohol Use: No - Social History History of Recent Travel: No History - Admission Reason For Visit: CONGESTIVE HEART FAILURE - Diagnostics X-ray: Report Reviewed - General Mental Status: Alert and Oriented, Awake and Alert, Able to Follow Commands Speech Evaluation - Communication Primary Language: FINNISH Communication: Yes: Within Normal Limits - Speech Characteristics Articulation: Yes: Precise - Language/Auditory Comprehension Observation: Comprehends Conversational Speech: Yes - Swallow Evaluation/Bedside Assessment Current Nutritional Intake: Regular, Thin Liquids A-P Transit: WFL Recommendations - Speech Evaluation, Impression/Plan Impression: Pt has been uncomfortable. Nursing suggested I let pt sleep. alex rated water with pills for daytime nurse. Known to me from previous admission. Aspiration risk, but tolerates thin with compensatory strategies. Refused nectar thick in past - Dysphagia Impressions/Plan Swallowing Skills: Impaired Dysphagia Impressions: Mild Impairment, Ongoing Evaluation Dysphagia Treatment Plan: Small Bites, Chin Tuck/Down, Clear Pocket Food, Safe Rate, 1/2 tsp. at a time, Elevate HOB during feed, Other (drink slowly and carefully, single sips, chin in neutral or flexed) Recommendations: Modified Barium Swallow (if difficulty persists) - Recommendations Diet Consistency: Regular (soft) Liquids: Thin Liquids (drink slowly and carefully, single sips, chin in neutral or flexed) Supplement: Magic Cup, Ensure Pudding
[2019-10-18] MEDS: LIDOCAINE 5% TOPICAL PATCH TP SCH (10:09)
[2019-10-18] MEDS: LACTOBACILLUS ACIDOPHILUS 1 TABLET PO SCH (10:10)
[2019-10-18] MEDS: PANTOPRAZOLE 40 MG TABLET PO SCH (10:10)
[2019-10-18] MEDS: CARVEDILOL 12.5 MG TABLET (FP) PO SCH ×2 (10:10→21:05)
[2019-10-18] MEDS: LETROZOLE 2.5 MG TABLET (FP) PO SCH (10:10)
[2019-10-18] MEDS: TRIAMCINOLONE ACET 0.1% CREAM 15 GM TUBE TP SCH (10:10)
[2019-10-18] MEDS: APIXABAN 2.5 MG TABLET PO SCH ×2 (10:10→21:05)
[2019-10-18] MEDS: POLYETHYLENE GLYCOL 3350 119 GM BTL PO SCH ×2 (10:11→21:05)
--- NOTE | 2019-10-18 10:41 | PN ---
Progress Note (short form) - Note Progress Note: Chief Complaint: sob History of Present Illness: no sob, no dizzy, no cp, no palps, c/o back pain Current Medications Generic Name Dose Route Start Last Admin Trade Name Freq PRN Reason Stop Dose Admin Acetaminophen 650 mg 10/11/19 12:26 10/18/19 02:20 Tylenol - PO 650 mg Q6H PRN Administration PAIN LEVEL 6-10 Apixaban 2.5 mg 10/04/19 22:00 10/18/19 10:10 Eliquis - PO 2.5 mg BID AMRIT Administration Bisacodyl 10 mg 10/14/19 13:59 10/15/19 13:05 Dulcolax Suppository - DC 10 mg PRN PRN Administration CONSTIPATION Camphor/Menthol 1 applic 10/17/19 12:39 Sarna Anti-Itch - TP BID PRN FOR ITCHING Carvedilol 37.5 mg 10/14/19 22:00 10/18/19 10:10 Coreg - PO 37.5 mg BID AMRIT Administration Docusate Sodium 300 mg 10/01/19 22:00 10/17/19 22:13 Colace - PO Not Given HS AMRIT Furosemide 60 mg 10/18/19 06:00 10/18/19 06:43 Lasix Injection - IVPUSH 60 mg BID@0600,1400 AMRIT Administration Hydralazine HCl 10 mg 09/29/19 14:00 10/18/19 06:42 Apresoline - PO Not Given TID AMRIT Hydroxyzine Pamoate 25 mg 10/15/19 21:24 10/17/19 12:15 Vistaril - PO 25 mg Q8H PRN Administration FOR ITCHING Insulin Aspart 1 vial 10/01/19 07:00 10/18/19 06:42 Novolog Vial Sliding Scale - SQ Not Given ACHS AMRIT Protocol Lactobacillus Acidophilus 1 tab 09/29/19 14:30 10/18/19 10:10 Bacid - PO 1 tab DAILY AMRIT Administration Letrozole 2.5 mg 10/01/19 10:00 10/18/19 10:10 Femara - PO 2.5 mg DAILY AMRIT Administration Levothyroxine Sodium 100 mcg 10/01/19 07:00 10/18/19 06:42 Synthroid - PO 100 mcg ACBK AMRIT Administration Lidocaine 1 patch 10/13/19 14:00 10/18/19 10:09 Lidoderm Patch - TP 1 patch DAILY AMRIT Administration Magnesium Oxide 400 mg 10/18/19 11:00 Mag-Ox - PO 10/18/19 11:01 ONCE ONE Miscellaneous 1 each 10/13/19 22:00 10/17/19 22:13 Lidoderm Patch Removal MC 1 each DAILY@2200 AMRIT Administration Nitroglycerin 1 inch 10/03/19 14:26 10/18/19 06:33 Nitro-Bid 2% Paste - TD Not Given Q6HPO AMRIT Oxycodone HCl 2.5 mg 10/18/19 06:53 Roxicodone - PO Q6H PRN PAIN LEVEL 1-5 Pantoprazole Sodium 40 mg 10/01/19 10:00 10/18/19 10:10 Protonix - PO 40 mg DAILY AMRIT Administration Polyethylene Glycol 17 gm 10/01/19 10:00 10/18/19 10:11 Miralax (For Daily Use) - PO Not Given BID AMRIT Selenium Sulfide 1 applic 10/16/19 08:39 Selenium Sulfide 2.25% Shampoo TP 10/23/19 08:39 DAILY PRN FOR ITCHING Triamcinolone Acetonide 1 applic 10/18/19 10:00 10/18/19 10:10 Aristocort 0.1% Cream - TP 1 applic DAILY [facility]IT Administration Vital Signs Period Temp Pulse Resp BP Sys/Hernandez Pulse Ox Last 24 Hr 97.6 F-98.6 F 87-100 18-18 110-135/48-65 100 Constitutional: Yes: No Distress, Calm Eyes: No: Sclera Icterus HENT: No: Nasal Congestion Cardiovascular: Yes: Pulse Irregular, JVD, S1, S2, Other (PMI non diplaced). No: Gallop, Murmur Respiratory: Yes: Regular, CTA Bilaterally. No: Accessory Muscle Use Gastrointestinal: Yes: Normal Bowel Sounds, Soft. No: Tenderness Extremities: No: Cold, Cyanosis Edema: 1+ le edema bl Integumentary: No: Jaundice Neurological: Yes: Alert, Oriented (x3) Psychiatric: No: Agitated Labs: CBC, BMP 10/18/19 07:09 10/18/19 07:09 Assessment/Plan echo 03/2019 nl LV function, mild MR, mild TR, PASP at least 49 mmHg IMP/REC: Acute diastolic heart failure exacerbation: - recent echo nl LV function - no signs acs - holding aldactone - was on iv lasix but no sig improvement and cr worsened. It was rec'd that pt have HD but she declined so transitioned to po lasix, but now with vol build up and back on iv lasix. Monitor cr, may again need to consider HD vs pall care. - cont nitrates for cardiorenal syndrome HTN: - bp stable - cont current meds crow on CKD: - Baseline creat from last admission is 2-2.5, elevated now, likely cardiorenal - renal following PAF: -cont coreg for rate control -cont eliquis low dose (age, creatinine) liver mass: -heme/onc following
[2019-10-18] MEDS ORDERED: MAGNESIUM OXIDE 400 MG TABLET (FP) PO ONE (11:00)
--- NOTE | 2019-10-18 11:10 | PN ---
Problem List - Problems (1) Acute diastolic (congestive) heart failure Code(s): I50.31 - ACUTE DIASTOLIC (CONGESTIVE) HEART FAILURE (2) Acute kidney injury superimposed on CKD Code(s): N17.9 - ACUTE KIDNEY FAILURE, UNSPECIFIED; N18.9 - CHRONIC KIDNEY DISEASE, UNSPECIFIED (3) Breast cancer Code(s): C50.919 - MALIGNANT NEOPLASM OF UNSP SITE OF UNSPECIFIED FEMALE BREAST (4) History of CVA with residual deficit Code(s): I69.30 - UNSPECIFIED SEQUELAE OF CEREBRAL INFARCTION (5) Renal disease Code(s): N28.9 - DISORDER OF KIDNEY AND URETER, UNSPECIFIED
[2019-10-18 11:15] LABS: ANISOCYTOSIS 1+; MACROCYTOSIS 1+; OVALOCYTE 1+; PLATELET ESTIMATE DECREASED; TEAR DROP CELLS 1+
--- NOTE | 2019-10-18 13:33 | PN ---
Progress Note, Physician History of Present Illness: Pt seen and examined at bedside. No great change in status. - Current Medication List Current Medications: Active Medications Acetaminophen (Tylenol -) 650 mg PO Q6H PRN PRN Reason: PAIN LEVEL 6-10 Last Admin: 10/18/19 02:20 Dose: 650 mg Documented by: Apixaban (Eliquis -) 2.5 mg PO BID [facility] Last Admin: 10/18/19 10:10 Dose: 2.5 mg Documented by: Bisacodyl (Dulcolax Suppository -) 10 mg IA PRN PRN PRN Reason: CONSTIPATION Last Admin: 10/15/19 13:05 Dose: 10 mg Documented by: Camphor/Menthol (Sarna Anti-Itch -) 1 applic TP BID PRN PRN Reason: FOR ITCHING Carvedilol (Coreg -) 37.5 mg PO BID [facility] Last Admin: 10/18/19 10:10 Dose: 37.5 mg Documented by: Docusate Sodium (Colace -) 300 mg PO HS [facility] Last Admin: 10/17/19 22:13 Dose: Not Given Documented by: Furosemide (Lasix Injection -) 60 mg IVPUSH BID@0600,1400 [facility] Last Admin: 10/18/19 06:43 Dose: 60 mg Documented by: Hydralazine HCl (Apresoline -) 10 mg PO TID [facility] Last Admin: 10/18/19 06:42 Dose: Not Given Documented by: Hydroxyzine Pamoate (Vistaril -) 25 mg PO Q8H PRN PRN Reason: FOR ITCHING Last Admin: 10/17/19 12:15 Dose: 25 mg Documented by: Insulin Aspart (Novolog Vial Sliding Scale -) 1 vial SQ [facility]; Protocol Last Admin: 10/18/19 11:53 Dose: Not Given Documented by: Lactobacillus Acidophilus (Bacid -) 1 tab PO DAILY [facility] Last Admin: 10/18/19 10:10 Dose: 1 tab Documented by: Letrozole (Femara -) 2.5 mg PO DAILY [facility] Last Admin: 10/18/19 10:10 Dose: 2.5 mg Documented by: Levothyroxine Sodium (Synthroid -) 100 mcg PO ACBK [facility] Last Admin: 10/18/19 06:42 Dose: 100 mcg Documented by: Lidocaine (Lidoderm Patch -) 1 patch TP DAILY [facility] Last Admin: 10/18/19 10:09 Dose: 1 patch Documented by: Miscellaneous (Lidoderm Patch Removal) 1 each MC DAILY@2200 [facility] Last Admin: 10/17/19 22:13 Dose: 1 each Documented by: Nitroglycerin (Nitro-Bid 2% Paste -) 1 inch TD Q6HPO [facility] Last Admin: 10/18/19 12:31 Dose: 1 inch Documented by: Oxycodone HCl (Roxicodone -) 2.5 mg PO Q6H PRN PRN Reason: PAIN LEVEL 1-5 Pantoprazole Sodium (Protonix -) 40 mg PO DAILY [facility] Last Admin: 10/18/19 10:10 Dose: 40 mg Documented by: Polyethylene Glycol (Miralax (For Daily Use) -) 17 gm PO BID [facility] Last Admin: 10/18/19 10:11 Dose: Not Given Documented by: Selenium Sulfide (Selenium Sulfide 2.25% Shampoo) 1 applic TP DAILY PRN PRN Reason: FOR ITCHING Stop: 10/23/19 08:39 Triamcinolone Acetonide (Aristocort 0.1% Cream -) 1 applic TP DAILY [facility] Last Admin: 10/18/19 10:10 Dose: 1 applic Documented by: - Objective Vital Signs: Vital Signs Temperature 98.6 F 10/18/19 08:49 Pulse Rate 94 H 10/18/19 08:49 Respiratory Rate 18 10/18/19 08:49 Blood Pressure 110/56 L 10/18/19 08:49 O2 Sat by Pulse Oximetry (%) 97 10/18/19 09:00 Constitutional: Yes: Calm Eyes: Yes: Conjunctiva Clear HENT: Yes: Atraumatic Neck: Yes: Supple Cardiovascular: Yes: S1, S2 Respiratory: Yes: On Nasal O2 Gastrointestinal: Yes: Soft Musculoskeletal: Yes: Muscle Weakness Edema: Yes Edema: LLE: 2+, RLE: 2+ Neurological: Yes: Oriented Labs: CBC, BMP 10/18/19 07:09 10/18/19 07:09 INR, PTT INR 1.59 (0.83-1.09) H 10/01/19 08:18 Assessment/Plan Current Medications Generic Name Dose Route Start Last Admin Trade Name Freq PRN Reason Stop Dose Admin Acetaminophen 650 mg 10/11/19 12:26 10/18/19 02:20 Tylenol - PO 650 mg Q6H PRN Administration PAIN LEVEL 6-10 Apixaban 2.5 mg 10/04/19 22:00 10/18/19 10:10 Eliquis - PO 2.5 mg BID AMRIT Administration Bisacodyl 10 mg 10/14/19 13:59 10/15/19 13:05 Dulcolax Suppository - IA 10 mg PRN PRN Administration CONSTIPATION Camphor/Menthol 1 applic 10/17/19 12:39 Sarna Anti-Itch - TP BID PRN FOR ITCHING Carvedilol 37.5 mg 10/14/19 22:00 10/18/19 10:10 Coreg - PO 37.5 mg BID AMRIT Administration Docusate Sodium 300 mg 10/01/19 22:00 10/17/19 22:13 Colace - PO Not Given HS AMRIT Furosemide 60 mg 10/18/19 06:00 10/18/19 06:43 Lasix Injection - IVPUSH 60 mg BID@0600,1400 [facility] Administration Hydralazine HCl 10 mg 09/29/19 14:00 10/18/19 06:42 Apresoline - PO Not Given TID AMRIT Hydroxyzine Pamoate 25 mg 10/15/19 21:24 10/17/19 12:15 Vistaril - PO 25 mg Q8H PRN Administration FOR ITCHING Insulin Aspart 1 vial 10/01/19 07:00 10/18/19 11:53 Novolog Vial Sliding Scale - SQ Not Given ACHS [facility] Protocol Lactobacillus Acidophilus 1 tab 09/29/19 14:30 10/18/19 10:10 Bacid - PO 1 tab DAILY AM[facility]IT Administration Letrozole 2.5 mg 10/01/19 10:00 10/18/19 10:10 Femara - PO 2.5 mg DAILY AM[facility]IT Administration Levothyroxine Sodium 100 mcg 10/01/19 07:00 10/18/19 06:42 Synthroid - PO 100 mcg ACBK [facility] Administration Lidocaine 1 patch 10/13/19 14:00 10/18/19 10:09 Lidoderm Patch - TP 1 patch DAILY [facility]IT Administration Miscellaneous 1 each 10/13/19 22:00 10/17/19 22:13 Lidoderm Patch Removal MC 1 each DAILY@2200 [facility] Administration Nitroglycerin 1 inch 10/03/19 14:26 10/18/19 12:31 Nitro-Bid 2% Paste - TD 1 inch Q6HPO AM[facility]IT Administration Oxycodone HCl 2.5 mg 10/18/19 06:53 Roxicodone - PO Q6H PRN PAIN LEVEL 1-5 Pantoprazole Sodium 40 mg 10/01/19 10:00 10/18/19 10:10 Protonix - PO 40 mg DAILY AM[facility]IT Administration Polyethylene Glycol 17 gm 10/01/19 10:00 10/18/19 10:11 Miralax (For Daily Use) - PO Not Given BID AM[facility]IT Selenium Sulfide 1 applic 10/16/19 08:39 Selenium Sulfide 2.25% Shampoo TP 10/23/19 08:39 DAILY PRN FOR ITCHING Triamcinolone Acetonide 1 applic 10/18/19 10:00 10/18/19 10:10 Aristocort 0.1% Cream - TP 1 applic DAILY AM[facility]IT Administration Impression 1. proteinuria 2. hypothyroid 3. HTN 4. DM 5. fluid overload 6. breast cancer 7. anemia 8. CKD 9. CHF 10. hyponatremia 11. hypokalemia 12. MAURICE Plan - cont lasix - monitor volume status - pt back on IV lasix - cont to monitor weights and volume status - pt refusing HD therapy - will need to discuss GOC - discussed with cardio - will follow
--- NOTE | 2019-10-18 14:54 | PN ---
Progress Note (short form) - Note Progress Note: worsening radh, very itchy noted leukocytosis, with anemia, thrombocytopenia with eosinophilia s history of breast ca and MDS now with liver mass Vital Signs Period Temp Pulse Resp BP Sys/Hernandez Pulse Ox Last 24 Hr 97.6 F-98.6 F 87-100 18-18 110-135/56-65 97-100 cor-rrr lungs decreased bs at bases abd soft,nt ext no edema patchy maculopapular rash on anterior chest and back extending to back of legs, now with rash on abdomen petechial rash on lower legs peeling hands CBC, BMP 10/18/19 07:09 10/18/19 07:09 Microbiology 10/16/19 08:55 Blood - Peripheral Venous Blood Culture - Preliminary NO GROWTH OBTAINED AFTER 48 HOURS, INCUBATION TO CONTINUE FOR 3 DAYS. 10/16/19 08:50 Blood - Peripheral Venous Blood Culture - Preliminary NO GROWTH OBTAINED AFTER 48 HOURS, INCUBATION TO CONTINUE FOR 3 DAYS. 10/03/19 09:21 Urine - Urine Clean Catch Urine Culture - Final Vr Ec Faecium 09/24/19 20:45 Urine - Urine Clean Catch Urine Culture - Final Klebsiella Pneumoniae - Esbl a/p leukocytosis - appears chronic blood cultures surveillance negative strongyloides ab though suspect eos due to rash or mds rash- derm eval todayy, ?paraneoplastic, ?trial of steroids ckd anemia d/w hospitalist observe off antiiboitcs for now
[2019-10-18] MEDS: hydrOXYzine PAMOATE 25 MG CAPSULE (FP) PO PRN (18:06)
[2019-10-18] MEDS: NYSTATIN 100,000 UNIT/GM TOPICAL CREAM 15 GM TUBE TP SCH (18:07)
[2019-10-18] MEDS ORDERED: BISACODYL 10 MG SUPP.RECT PR ONE (18:50)
--- NOTE | 2019-10-18 19:10 | PN ---
Teaching Attending Note Name of Resident: Kylah Denton ATTENDING PHYSICIAN STATEMENT I saw and evaluated the patient. I reviewed the resident's note and discussed the case with the resident. I agree with the resident's findings and plan as documented. SUBJECTIVE: No fever or chills. no pain . NO SOB. constipated. itchy OBJECTIVE: NAD, awake, alert. CV: RRR Lungs: minimal crackles at bases. Ext: 3+ edema on legs and ankles. Skin: maculopapular rash on upper chest, and on back, buttocks, and posterior thighs. peticheal rash on knees has resolved and in place there is macuopapular rash . petechia on feet peeling skin on hands stage 2 decub ulcers did not change, but in upper part of the creese between cheeks, there is slough covering a 1 cm ulcer ( unstageable ) ASSESSMENT AND PLAN: 89 y/o lady with h/o diastolic CHF, a-fib (on Eliquis), CKD, breast cancer s/p mastectomy, myelodysplasia, IDDM type 2, hypothyroidism, HLD, CVA, and GERD who presented with SOB adn LE edema and was diagnosed with D CHF exacerbation Acute on chronic diastolic heart failure : improved ESBL producing Klebsiealla complicated UTI/pyelonephritis : treated MAURICE on CKD : improved Liver mass retroperitoneal LAP b/l adrenal nodules h/o MDS chronic normocytic anemia persistent leukocytosis prolonged QTC hyponatremia high AG metabolic acidosis :resolved prolonged QTC h/o A fib Stage 2 sacral decubiti Maculopapular rash Plan: - cont IV lasix . - she agreed to HD when discussed by [employer]. Dr. Sequeira will discuss further - repeat blodo cx neg - deerm consult pending .? 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 - cont bowel regimen . give suppository today - frequent turning. cont air mattress - cont femara HLOC
[2019-10-18] MEDS: LIDOCAINE PATCH REMOVAL MC SCH (21:04)
[2019-10-18] MEDS: DOCUSATE SODIUM 100 MG CAPSULE (FP) PO SCH (21:05)
--- NOTE | 2019-10-18 21:39 | PN ---
Physical Exam: SUBJECTIVE: Patient seen and examined bedside. In no acute distress. Overnight patient complaining of itchiness and nurse noticed she is coughing more when drinking liquids and is worried about choking. OBJECTIVE: Vital Signs Period Temp Pulse Resp BP Sys/Hernandez Pulse Ox Last 24 Hr 97.6 F-98.9 F 94-100 18-18 105-131/50-65 97 GENERAL: The patient is awake, alert, and oriented, in no acute distress. LUNGS: Breath sounds equal, BL crackles HEART: Regular rate and rhythm ABDOMEN: Soft, nontender, nondistended. EXTREMITIES: BL + 2 pitting edema on ankles, overall leg edema continuing to improve. Sacral decubitus ulcer stage 2 SKIN: dry flaking skin with increased erythema around the chest. Increased patchy erythematous rash on patient chest and back. Patient's skin is very warm. stage 2 decub ulcer. Laboratory Results - last 24 hr 10/17/19 10/18/19 10/18/19 22:06 06:35 07:09 WBC RBC Hgb Hct MCV MCH MCHC RDW Plt Count MPV Absolute Neuts (auto) Neutrophils % Neutrophils % (Manual) Band Neutrophils % Lymphocytes % Lymphocytes % (Manual) Monocytes % Monocytes % (Manual) Eosinophils % Eosinophils % (Manual) Basophils % Basophils % (Manual) Myelocytes % (Man) Promyelocytes % (Man) Blast Cells % (Manual) Nucleated RBC % Metamyelocytes Hypochromia Platelet Estimate Polychromasia Poikilocytosis Anisocytosis Microcytosis Macrocytosis Tear Drop Cells Ovalocytes Stomatocytes Sodium 135 L Potassium 3.8 Chloride 100 Carbon Dioxide 27 Anion Gap 8 BUN 99.9 H Creatinine 2.8 H Est GFR (CKD-EPI)AfAm 16.66 Est GFR (CKD-EPI)NonAf 14.37 POC Glucometer 169 140 Random Glucose 131 H Calcium 7.3 L Phosphorus 3.2 Magnesium 1.4 L 10/18/19 10/18/19 07:09 20:59 WBC 18.4 H RBC 2.61 L Hgb 7.9 L Hct 25.0 L MCV 95.5 MCH 30.3 MCHC 31.7 L RDW 19.7 H Plt Count 84 L MPV 10.0 Absolute Neuts (auto) 13.8 H Neutrophils % 74.9 Neutrophils % (Manual) 70.8 Band Neutrophils % 1.0 Lymphocytes % 6.4 L Lymphocytes % (Manual) 9.4 D Monocytes % 9.9 Monocytes % (Manual) 5 Eosinophils % 8.4 H Eosinophils % (Manual) 6.3 H Basophils % 0.4 Basophils % (Manual) 1.1 Myelocytes % (Man) 2 D Promyelocytes % (Man) 0 Blast Cells % (Manual) 0 Nucleated RBC % 0 Metamyelocytes 3 H D Hypochromia 1+ Platelet Estimate Decreased Polychromasia 1+ Poikilocytosis 1+ Anisocytosis 1+ Microcytosis 0 Macrocytosis 1+ Tear Drop Cells 1+ Ovalocytes 1+ Stomatocytes 1+ Sodium Potassium Chloride Carbon Dioxide Anion Gap BUN Creatinine Est GFR (CKD-EPI)AfAm Est GFR (CKD-EPI)NonAf POC Glucometer 257 Random Glucose Calcium Phosphorus Magnesium Active Medications Generic Name Dose Route Start Last Admin Trade Name Freq PRN Reason Stop Dose Admin Acetaminophen 650 mg 10/11/19 12:26 10/18/19 02:20 Tylenol - PO 650 mg Q6H PRN Administration PAIN LEVEL 6-10 Apixaban 2.5 mg 10/04/19 22:00 10/18/19 21:05 Eliquis - PO 2.5 mg BID AMRIT Administration Bisacodyl 10 mg 10/14/19 13:59 10/15/19 13:05 Dulcolax Suppository - [place] 10 mg PRN PRN Administration CONSTIPATION Camphor/Menthol 1 applic 10/17/19 12:39 Sarna Anti-Itch - TP BID PRN FOR ITCHING Carvedilol 37.5 mg 10/14/19 22:00 10/18/19 21:05 Coreg - PO 37.5 mg BID AMRIT Administration Docusate Sodium 300 mg 10/01/19 22:00 10/18/19 21:05 Colace - PO Not Given HS AMRIT Furosemide 60 mg 10/18/19 06:00 10/18/19 14:10 Lasix Injection - IVPUSH 60 mg BID@0600,1400 [facility] Administration Hydralazine HCl 10 mg 09/29/19 14:00 10/18/19 21:05 Apresoline - PO 10 mg TID AMRIT Administration Hydroxyzine Pamoate 25 mg 10/15/19 21:24 10/18/19 18:06 Vistaril - PO 25 mg Q8H PRN Administration FOR ITCHING Insulin Aspart 1 vial 10/01/19 07:00 10/18/19 21:03 Novolog Vial Sliding Scale - SQ 6 units ACHS AMRIT Administration Protocol Lactobacillus Acidophilus 1 tab 09/29/19 14:30 10/18/19 10:10 Bacid - PO 1 tab DAILY [facility] Administration Letrozole 2.5 mg 10/01/19 10:00 10/18/19 10:10 Femara - PO 2.5 mg DAILY [facility] Administration Levothyroxine Sodium 100 mcg 10/01/19 07:00 10/18/19 06:42 Synthroid - PO 100 mcg ACBK [facility] Administration Lidocaine 1 patch 10/13/19 14:00 10/18/19 10:09 Lidoderm Patch - TP 1 patch DAILY [facility] Administration Miscellaneous 1 each 10/13/19 22:00 10/18/19 21:04 Lidoderm Patch Removal MC 1 each DAILY@2200 [facility] Administration Nitroglycerin 1 inch 10/03/19 14:26 10/18/19 18:07 Nitro-Bid 2% Paste - TD 1 inch Q6HPO [facility] Administration Nystatin 1 applic 10/18/19 18:00 10/18/19 18:07 Mycostatin Cream - TP 1 applic Q6HPO [facility] Administration Oxycodone HCl 2.5 mg 10/18/19 06:53 Roxicodone - PO Q6H PRN PAIN LEVEL 1-5 Pantoprazole Sodium 40 mg 10/01/19 10:00 10/18/19 10:10 Protonix - PO 40 mg DAILY [facility] Administration Polyethylene Glycol 17 gm 10/01/19 10:00 10/18/19 21:05 Miralax (For Daily Use) - PO Not Given BID [facility] Selenium Sulfide 1 applic 10/16/19 08:39 Selenium Sulfide 2.25% Shampoo TP 10/23/19 08:39 DAILY PRN FOR ITCHING Triamcinolone Acetonide 1 applic 10/18/19 10:00 10/18/19 10:10 Aristocort 0.1% Cream - TP 1 applic DAILY [facility] Administration ASSESSMENT/PLAN: 89F yo female with pmhx of diastolic CHF, a-fib (on Eliquis), CKD, breast cancer s/p mastectomy, myelodysplasia, IDDM type 2, hypothyroidism, HLD, CVA, and GERD presents with b/l leg swelling and nausea for "weeks" and back pain for several days admitted for acute CHF exacerbation. Anemia; likely multi-factorial in setting of CKD, myelodysplasia - Transfusion 1 PRBC on 10/15 - FOBT today - Continue to transfuse PRN to maintain Hgb >7 MAURICE on CKD; BUN/Cr continues to improve -serial BMPs to monitor Cr (baseline near 2) today 2.8 -skin flaking may be due to renal disease (xerosis cutis) -orderd nystatin cream Thrombocytopenia and Leukocytosis platelets have been dropping over last few days today Plts up to 84 WBC count also continuously elevating concerned for MDS morphing into Leukemia. Consulted Dr. Reynaga - patient and heme/onc both agree that no bone biopsy should be done - counts have been stable - flow cytometry did not show AML - continue to monitor and treat symptoms - concerned that rash is manifestation of underlying infection - Dr. Turk (Derm) saw patient today, will reach out to her tomorrow about findings, if she recommends biopsy will have to ask surgery to do it. Acute on Chronic Diastolic CHF Exacerbation; - Daily weights, I/Os, 2gm Na diet w/ fluid restriction - Patient did not do well on oral lasix >>> switched back to IV - Cont O2 NC - Repeat Echo (10/03) showed LV wnl, EF 55-60%, atria severely dilated, RV borderline in size and fxn, AV sclerotic, MV severe annular calcification, trace MR, mod to sev TR and sev pHTN, possible small pericardial effusion - patient increasingly tachy - increase coreg to 37.5 BID (10/13) New 4 cm L Hepatic Lobe lesion; in setting of hx of breast cancer and MDS -Onc consulted- Dr. Sullivan CA 27-[address] Sullivan could not be reached ([phone]) - Cont home meds: Letrozole 2.5 QD Stage 2 sacral ulcer; not infected -Santyl and bandage -Frequent turning and positioning -Dilaudid 0.5 mg Q6H PRN for pain ESBL UTI; - resolved/ repeat UA on 10/13 negative No urinary symptoms -UCx +ESBL Kleb pneumo; repeat UCx +Group D strep/enterococcus -Per ID, Ertapenem 500 mg QD completed today. Started on ZYVOX 600MG PO BID X 3D completed Hyponatremia; likely 2/2 fluid overload. Resolved. -2gm Na diet w/ fluid restriction -IV diuresis -Renal consulted Generalized abdominal pain; 2/2 constipation vs. liver mass -Miralax 17 gm BID for constipation -QTc 484, try to avoid Zofran for nausea/vomiting Hypothyroidism; Cont home meds: Synthroid 100 Prophylaxis -DVT: Cont home Eliquis 2.5 BID - Team spoke to cardiology on regarding patient's kidney function and Eliquis, Cardiology recommended to maintain eliquis as is. -GI: Cont home Protonix 40 DISPO: -Spoke with case investigator Isabella, she is going to put in for new facilities -Will continue discussion with patient and social work Visit type - Emergency Visit Emergency Visit: Yes ED Registration Date: 09/24/19 Care time: The patient presented to the Emergency Department on the above date and was hospitalized for further evaluation of their emergent condition. - New Patient This patient is new to me today: No - Critical Care Critical Care patient: No - Discharge Referral Referred to [facility] Med P.C.: No ATTENDING PHYSICIAN STATEMENT I saw and evaluated the patient. I reviewed the resident's note and discussed the case with the resident. I agree with the resident's findings and plan as documented. SUBJECTIVE: OBJECTIVE: ASSESSMENT AND PLAN:
[2019-10-19] MEDS: NYSTATIN 100,000 UNIT/GM TOPICAL CREAM 15 GM TUBE TP SCH ×4 (00:50→17:41)
[2019-10-19] MEDS ORDERED: PT OWN MED DRAWER 7, Y5N ONE ×6 (00:54→20:48)
[2019-10-19] MEDS: NITROGLYCERIN 2% OINTMENT - 1GM PACKET TD SCH ×4 (00:56→17:41)
[2019-10-19] MEDS: FUROSEMIDE 40 MG/4 ML INJECTABLE VIAL IVPUSH SCH ×2 (05:50→13:28)
[2019-10-19] MEDS: hydrALAZINE HCL 10 MG TABLET PO SCH ×3 (05:50→21:30)
[2019-10-19] MEDS: LEVOTHYROXINE NA 100 MCG TABLET (FP) PO SCH (06:02)
[2019-10-19] MEDS: INSULIN SLIDING SCALE (NOVOLOG) 1 VIAL SQ SCH ×4 (06:03→21:31)
[2019-10-19] MEDS ORDERED: diphenhydrAMINE HCL 25 MG CAPSULE (FP) PO ONE (06:35)
[2019-10-19 08:01] LABS: BASO % 0.4 % (0-2.0); HEMATOCRIT 24.3 % (32.4-45.2); HEMOGLOBIN 7.7 GM/dL (10.7-15.3); LYMPH % 5.5 % (8-40); MCH 30.2 pg (25.7-33.7); MCHC 31.8 g/dl (32.0-36.0); MEAN CELL VOLUME 94.9 fl (80-96); MEAN PLT VOLUME 9.6 fl (7.5-11.1); MONO % 8.8 % (3.8-10.2); NEUT % 79.3 % (42.8-82.8); PLATELET COUNT 111 K/MM3 (134-434); RBC 2.56 M/mm3 (3.60-5.2); RDW 19.9 % (11.6-15.6); WHITE BLOOD COUNT 20.3 K/mm3 (4.0-10.0)
[2019-10-19 08:27] LABS: BLOOD UREA NITROGEN 103.3 mg/dL (7-18); CALCIUM 7.4 mg/dL (8.5-10.1); CREATININE 2.8 mg/dL (0.55-1.3); MAGNESIUM 1.3 mg/dL (1.8-2.4); PHOSPHOROUS 3.5 mg/dL (2.5-4.9); POTASSIUM 3.9 mmol/L (3.5-5.1)
[2019-10-19] MEDS ORDERED: MAGNESIUM OXIDE 400 MG TABLET (FP) PO ONE (08:58)
[2019-10-19 09:09] LABS: EPI CELLS 1 /uL (0-25.1); HYALINE CASTS 0 /uL (0-3.1); URINE APPEARANCE CLOUDY; URINE BILIRUBIN NEGATIVE (NEGATIVE); URINE COLOR YELLOW; URINE GLUCOSE (UA) NEGATIVE (NEGATIVE); URINE KETONE NEGATIVE (NEGATIVE); URINE LEUK ESTERASE 2+ (NEGATIVE); URINE NITRITE NEGATIVE (NEGATIVE); URINE PROTEIN 3+ (NEGATIVE); URINE RBC 55 /uL (0-23.9); URINE UROBILINOGEN 0.2 mg/dL (0.2-1.0); URINE WBC 189 /uL (0-25.8)
--- NOTE | 2019-10-19 09:11 | PN ---
Progress Note (short form) - Note Progress Note: Palliative care f/up 89 y/o female with PMHx of diastolic CHF, a-fib (on Eliquis), CKD, breast cancer s/p left breast lumpectomy and radiation in 2013, myelodysplasia, IDDM type 2, hypothyroidism, HLD, CVA, and GERD who was admitted to [facility] 09/23 with constipation, SOB, b/l leg swelling and nausea for "weeks" and back pain for "several days." Elissa has been in and out of hospitals and nursing homes this past year and she has been bedbound since February of last year. A CT of the abdomen revealed a 4 cm L hepatic lobe hypodense lesion suspicious for metastatic disease as well as a 2.[address] enlargement and enlarged retroperitoneal nodes. Very elevated BNP and edematous- s/p aggressive diuresis with improvement in edema but worsening renal function. 2 hepatic masses seen on USG liver- 5.7 cm and 4 cm respectively. She has been seen by Haem- onc- cancer markers have been sent- presumed metastatic breast cancer- depending on test results there might be some modification in breast cancer hormonal treatment but pt is not a candidate for aggressive chemo/ sx/ radiation. She was also diagnosed with MDS/ AML or MPN as per haem- onc. Lumbar CT showed multilevel DJD, no neoplastic disease. HD has been recommended but patient refused it but does not wish to consider hospice/ comfort care. She was transitioned to po lasix which failed and she is back on iv lasix. with lidoderm patch for back pain, also on oxycodone + leucocytosis- with eosinophilia- ? allergic reaction vs helminthic infection has 2 PU in sacral area + leucocytosis/ thrombocytopenia suspicious for MPD ( leukemia ruled out) VSS haemodynamically stable AAO x 3 NAD decreased appetite denies SOB irritable dependent for all ADLs, c/o generalized body ache LE 2+ edema today Prognosis guarded metastatic breast cancer- switch letrozole ? faslodex ---- to f/u wit primary oncologist regarding this MPD- not leukemia- patient is allergic to oxycodone- would dc and use lidoderm patch/ tylenol only for pain management, may use gabapentin at a low dose ( maxm 300 mg/ day) nl LV function on recent echo with severely dilated atria and severe pulm HTN- consider using torsemide with metolazone to overcome diuretic resistance Dysphagia- aspiration ruled out- on soft diet with thin liquids Patient remains a full code and does not want hospice/ comfort care. She wants to have physical therapy. SW to discuss SNF placement options. However dc planning on hold as pt is back on iv lasix. She would be appropriate for comfort/ hospice care given her multiple comorbidities, metastatic cancer, debilitated state with diastolic CHF and CKD approaching end stage, pressure ulcers. However she does not want hospice/ comfort care at this point. Would continue pain meds, diuretics. She will be appropriate for SNF on palliative care. Problem List - Problems (1) Acute diastolic (congestive) heart failure Code(s): I50.31 - ACUTE DIASTOLIC (CONGESTIVE) HEART FAILURE (2) Acute kidney injury superimposed on CKD Code(s): N17.9 - ACUTE KIDNEY FAILURE, UNSPECIFIED; N18.9 - CHRONIC KIDNEY DISEASE, UNSPECIFIED (3) Breast cancer Code(s): C50.919 - MALIGNANT NEOPLASM OF UNSP SITE OF UNSPECIFIED FEMALE BREAST (4) History of CVA with residual deficit Code(s): I69.30 - UNSPECIFIED SEQUELAE OF CEREBRAL INFARCTION (5) Renal disease Code(s): N28.9 - DISORDER OF KIDNEY AND URETER, UNSPECIFIED
[2019-10-19] MEDS: ACETAMINOPHEN 325 MG TABLET (FP) PO PRN ×2 (09:34→21:30)
[2019-10-19] MEDS: CARVEDILOL 12.5 MG TABLET (FP) PO SCH ×2 (09:36→21:19)
[2019-10-19] MEDS: TRIAMCINOLONE ACET 0.1% CREAM 15 GM TUBE TP SCH (09:36)
[2019-10-19] MEDS: LETROZOLE 2.5 MG TABLET (FP) PO SCH (09:36)
[2019-10-19] MEDS: POLYETHYLENE GLYCOL 3350 119 GM BTL PO SCH ×2 (09:37→21:30)
[2019-10-19] MEDS: PANTOPRAZOLE 40 MG TABLET PO SCH (09:37)
[2019-10-19] MEDS: LACTOBACILLUS ACIDOPHILUS 1 TABLET PO SCH (09:37)
[2019-10-19] MEDS: LIDOCAINE 5% TOPICAL PATCH TP SCH (09:37)
[2019-10-19] MEDS: APIXABAN 2.5 MG TABLET PO SCH ×2 (09:37→21:30)
--- NOTE | 2019-10-19 10:23 | PN ---
Teaching Attending Note Name of Resident: Kylah Denton ATTENDING PHYSICIAN STATEMENT I saw and evaluated the patient. I reviewed the resident's note and discussed the case with the resident. I agree with the resident's findings and plan as documented. SUBJECTIVE: Patient is lying in bed with no acute distress, no shortness of breath. co ntinues to have rash with pruritis OBJECTIVE: Vital Signs Temperature 99.2 F 10/19/19 09:16 Pulse Rate 98 H 10/19/19 09:16 Respiratory Rate 18 10/19/19 09:16 Blood Pressure 108/49 L 10/19/19 09:16 O2 Sat by Pulse Oximetry (%) 97 10/18/19 21:00 PE: rash all over the body per resident's note CBCD WBC 20.3 K/mm3 (4.0-10.0) H 10/19/19 06:39 RBC 2.56 M/mm3 (3.60-5.2) L 10/19/19 06:39 Hgb 7.7 GM/dL (10.7-15.3) L 10/19/19 06:39 Hct 24.3 % (32.4-45.2) L 10/19/19 06:39 MCV 94.9 fl (80-96) 10/19/19 06:39 MCHC 31.8 g/dl (32.0-36.0) L 10/19/19 06:39 RDW 19.9 % (11.6-15.6) H 10/19/19 06:39 Plt Count 111 K/MM3 (134-434) L D 10/19/19 06:39 MPV 9.6 fl (7.5-11.1) 10/19/19 06:39 CMP Sodium 135 mmol/L (136-145) L 10/19/19 06:39 Potassium 3.9 mmol/L (3.5-5.1) 10/19/19 06:39 Chloride 100 mmol/L (98-107) 10/19/19 06:39 Carbon Dioxide 22 mmol/L (21-32) 10/19/19 06:39 Anion Gap 12 MMOL/L (8-16) 10/19/19 06:39 BUN 103.3 mg/dL (7-18) H 10/19/19 06:39 Creatinine 2.8 mg/dL (0.55-1.3) H 10/19/19 06:39 Random Glucose 165 mg/dL (74-106) H 10/19/19 06:39 Calcium 7.4 mg/dL (8.5-10.1) L 10/19/19 06:39 Total Bilirubin 0.4 mg/dL (0.2-1) 10/13/19 07:50 AST 16 U/L (15-37) 10/13/19 07:50 ALT 6 U/L (13-61) L 10/13/19 07:50 Alkaline Phosphatase 251 U/L (45-117) H 10/13/19 07:50 Total Protein 6.3 g/dl (6.4-8.2) L 10/13/19 07:50 Albumin 2.0 g/dl (3.4-5.0) L 10/13/19 07:50 CARDIAC ENZYMES Troponin I < 0.02 ng/ml (0.00-0.05) 09/24/19 16:49 Current Medications Generic Name Dose Route Start Last Admin Trade Name Freq PRN Reason Stop Dose Admin Acetaminophen 650 mg 10/11/19 12:26 10/19/19 09:34 Tylenol - PO 650 mg Q6H PRN Administration PAIN LEVEL 6-10 Apixaban 2.5 mg 10/04/19 22:00 10/19/19 09:37 Eliquis - PO 2.5 mg BID AMRIT Administration Bisacodyl 10 mg 10/14/19 13:59 10/15/19 13:05 Dulcolax Suppository - [place] 10 mg PRN PRN Administration CONSTIPATION Camphor/Menthol 1 applic 10/17/19 12:39 Sarna Anti-Itch - TP BID PRN FOR ITCHING Carvedilol 37.5 mg 10/14/19 22:00 10/19/19 09:36 Coreg - PO 37.5 mg BID AMRIT Administration Docusate Sodium 300 mg 10/01/19 22:00 10/18/19 21:05 Colace - PO Not Given HS AMRIT Furosemide 80 mg 10/19/19 08:20 Lasix Injection - IVPUSH BID@0600,1400 AM[facility] Hydralazine HCl 10 mg 09/29/19 14:00 10/19/19 05:50 Apresoline - PO 10 mg TID AM[facility]IT Administration Hydroxyzine Pamoate 25 mg 10/15/19 21:24 10/18/19 18:06 Vistaril - PO 25 mg Q8H PRN Administration FOR ITCHING Insulin Aspart 1 vial 10/01/19 07:00 10/19/19 06:03 Novolog Vial Sliding Scale - SQ 2 units ACHS AMRIT Administration Protocol Lactobacillus Acidophilus 1 tab 09/29/19 14:30 10/19/19 09:37 Bacid - PO 1 tab DAILY [facility] Administration Letrozole 2.5 mg 10/01/19 10:00 10/19/19 09:36 Femara - PO 2.5 mg DAILY [facility] Administration Levothyroxine Sodium 100 mcg 10/01/19 07:00 10/19/19 06:02 Synthroid - PO 100 mcg ACBK [facility] Administration Lidocaine 1 patch 10/13/19 14:00 10/19/19 09:37 Lidoderm Patch - TP 1 patch DAILY [facility] Administration Miscellaneous 1 each 10/13/19 22:00 10/18/19 21:04 Lidoderm Patch Removal MC 1 each DAILY@2200 [facility] Administration Nitroglycerin 1 inch 10/03/19 14:26 10/19/19 05:52 Nitro-Bid 2% Paste - TD 1 inch Q6HPO AM[facility]IT Administration Nystatin 1 applic 10/18/19 18:00 10/19/19 05:36 Mycostatin Cream - TP 1 applic Q6HPO [facility] Administration Oxycodone HCl 2.5 mg 10/18/19 06:53 Roxicodone - PO Q6H PRN PAIN LEVEL 1-5 Pantoprazole Sodium 40 mg 10/01/19 10:00 10/19/19 09:37 Protonix - PO 40 mg DAILY AM[facility] Administration Polyethylene Glycol 17 gm 10/01/19 10:00 10/19/19 09:37 Miralax (For Daily Use) - PO Not Given BID [facility] Selenium Sulfide 1 applic 10/16/19 08:39 Selenium Sulfide 2.25% Shampoo TP 10/23/19 08:39 DAILY PRN FOR ITCHING Triamcinolone Acetonide 1 applic 10/18/19 10:00 10/19/19 09:36 Aristocort 0.1% Cream - TP 1 applic DAILY [facility] Administration Triamcinolone Acetonide 1 applic 10/19/19 10:15 Aristocort 0.1% Lotion - TP BID [facility]IT Home Medications Medication Instructions Recorded Calcium Carbonate/Vitamin D3 1 each PO BID 06/23/18 [Calcium 500-Vit D3 400 Tablet] Carvedilol [Coreg -] 25 mg PO BID 06/23/18 Polyethylene Glycol 3350 [Miralax 17 gm PO DAILY PRN bottle 04/27/19 119 gm Btl -] Amlodipine Besylate [Norvasc -] 5 mg PO DAILY 08/12/19 Apixaban [Eliquis] 2.5 mg PO BID 08/12/19 Furosemide [Lasix -] 80 mg PO BID 08/12/19 Isosorbide Mononitrate [Imdur -] 60 mg PO DAILY 08/12/19 Sitagliptin Phosphate [Januvia] 25 mg PO DAILY 08/12/19 hydrALAZINE HCL [Apresoline -] 10 mg PO TID 08/12/19 Insulin Glargine,Hum.rec.anlog 25 unit SQ DAILY 09/24/19 [Lantus] Insulin Lispro [Humalog] 100 unit SQ PRN 09/24/19 Letrozole [Femara] 2.5 mg PO DAILY 09/24/19 Omeprazole 20 mg PO DAILY 09/24/19 Pantoprazole Sodium [Protonix] 40 mg PO DAILY 09/24/19 Simethicone 125 mg PO Q4H PRN 09/24/19 Multivitamin [One-Daily 1 each PO DAILY 09/25/19 Multi-Vitamin] Ondansetron [Zofran -] 4 mg PO Q4H PRN 09/25/19 Oxycodone HCl/Acetaminophen 1 tab PO Q12H PRN 09/25/19 [Percocet 5-325 mg Tablet] Diclofenac Sodium 2 gm TP DAILY 09/26/19 Isosorbide Mononitrate [Isosorbide 60 mg PO DAILY 10/06/19 Mononitrate ER] Tramadol HCl 1 tab TID 10/06/19 Microbiology 10/16/19 08:55 Blood - Peripheral Venous Blood Culture - Preliminary NO GROWTH OBTAINED AFTER 72 HOURS, INCUBATION TO CONTINUE FOR 2 DAYS. 10/16/19 08:50 Blood - Peripheral Venous Blood Culture - Preliminary NO GROWTH OBTAINED AFTER 72 HOURS, INCUBATION TO CONTINUE FOR 2 DAYS. 10/03/19 09:21 Urine - Urine Clean Catch Urine Culture - Final Vr Ec Faecium 09/24/19 20:45 Urine - Urine Clean Catch Urine Culture - Final Klebsiella Pneumoniae - Esbl ASSESSMENT AND PLAN: This patient is 89yof with Pmhx of Hx of diastolic CHF, a-fib (on Eliquis), CKD, breast cancer s/p mastectomy, myelodysplasia, IDDM type 2, hypothyroidism, HLD, CVA, and GERD who presented with SOB and LE edema and was diagnosed with D. CHF exacerbation. #Acute Maculopapular rash : will continue with benadryl ,will monitor, derm consult requested. for possible bx #Acute on chronic diastolic heart failure : improved #ESBL producing Klebsiella complicated UTI/pyelonephritis : treated #MAURICE on CKD : improved #Liver mass #retroperitoneal LAP #b/l adrenal nodules #h/o MDS #chronic normocytic anemia #persistent leukocytosis #Hx of prolonged QTC #Hyponatremia #high AG metabolic acidosis :resolved #prolonged QTC #Hx of A fib #Stage 2 sacral decubiti DVT px: Heparin sq dc'd due to having low platelets
[2019-10-19 10:46] LABS: ANISOCYTOSIS 1+; MACROCYTOSIS 1+; PLATELET ESTIMATE DECREASED
[2019-10-19 11:01] LABS: URINE CRYSTALS NEGATIVE /hpf
--- NOTE | 2019-10-19 11:37 | PN ---
Progress Note (short form) - Note Progress Note: Attending Surgeon Patient seen and evaluated; chart reviewed and case d/w Dr. Michelle Schwartz of Dermatology who saw the patient but no longer has privileges here at [facility] ; she did NOT recommend skin bx. of any area and if further assistance is needed Dr. Meseret Willingham should be contacted; she is the Chief of Dermatology. Mario White MD FACS
--- NOTE | 2019-10-19 12:00 | PN ---
Progress Note, [employer] - Note Progress Note: Selected Entries 10/18/19 10/18/19 10/18/19 10:00 13:07 22:00 Breakfast 75% Diet Tolerated Well Fair Fair Lunch 50% Supper 50% 10/19/19 10:10 Breakfast 50% Diet Tolerated Well Lunch Supper Laboratory Tests 10/17/19 10/18/19 10/19/19 07:07 07:09 06:39 WBC 18.9 H 18.4 H 20.3 H ) - Recommendations Diet Consistency: Regular (soft) Liquids: Thin Liquids (drink slowly and carefully, single sips, chin in neutral or flexed) Supplement: Magic Cup, Ensure Pudding Small Bites, Chin Tuck/Down, Clear Pocket Food, Safe Rate, 1/2 tsp. at a time, Elevate HOB during feed, Other (drink slowly and carefully, single sips, chin in neutral or flexed) Recommendations: Modified Barium Swallow (if difficulty persists Tolerating diet.
[2019-10-19] MEDS: TRIAMCINOLONE ACET 0.1% 60 ML LOTION TP SCH ×2 (12:17→21:36)
--- NOTE | 2019-10-19 13:28 | PN ---
Progress Note (short form) - Note Progress Note: no sob, no dizzy, no cp, no palps, complains of itching Current Medications Generic Name Dose Route Start Last Admin Trade Name Freq PRN Reason Stop Dose Admin Acetaminophen 650 mg 10/11/19 12:26 10/19/19 09:34 Tylenol - PO 650 mg Q6H PRN Administration PAIN LEVEL 6-10 Apixaban 2.5 mg 10/04/19 22:00 10/19/19 09:37 Eliquis - PO 2.5 mg BID AMRIT Administration Bisacodyl 10 mg 10/14/19 13:59 10/15/19 13:05 Dulcolax Suppository - [place] 10 mg PRN PRN Administration CONSTIPATION Camphor/Menthol 1 applic 10/17/19 12:39 Sarna Anti-Itch - TP BID PRN FOR ITCHING Carvedilol 37.5 mg 10/14/19 22:00 10/19/19 09:36 Coreg - PO 37.5 mg BID AMRIT Administration Docusate Sodium 300 mg 10/01/19 22:00 10/18/19 21:05 Colace - PO Not Given HS AMRIT Furosemide 80 mg 10/19/19 08:20 Lasix Injection - IVPUSH BID@0600,1400 [facility] Hydralazine HCl 10 mg 09/29/19 14:00 10/19/19 05:50 Apresoline - PO 10 mg TID AM[facility]IT Administration Hydroxyzine Pamoate 25 mg 10/15/19 21:24 10/18/19 18:06 Vistaril - PO 25 mg Q8H PRN Administration FOR ITCHING Insulin Aspart 1 vial 10/01/19 07:00 10/19/19 12:32 Novolog Vial Sliding Scale - SQ Not Given ACHS AMRIT Protocol Lactobacillus Acidophilus 1 tab 09/29/19 14:30 10/19/19 09:37 Bacid - PO 1 tab DAILY [facility] Administration Letrozole 2.5 mg 10/01/19 10:00 10/19/19 09:36 Femara - PO 2.5 mg DAILY [facility] Administration Levothyroxine Sodium 100 mcg 10/01/19 07:00 10/19/19 06:02 Synthroid - PO 100 mcg ACBK [facility] Administration Lidocaine 1 patch 10/13/19 14:00 10/19/19 09:37 Lidoderm Patch - TP 1 patch DAILY [facility] Administration Miscellaneous 1 each 10/13/19 22:00 10/18/19 21:04 Lidoderm Patch Removal MC 1 each DAILY@2200 [facility] Administration Nitroglycerin 1 inch 10/03/19 14:26 10/19/19 12:32 Nitro-Bid 2% Paste - TD 1 inch Q6HPO [facility] Administration Nystatin 1 applic 10/18/19 18:00 10/19/19 12:32 Mycostatin Cream - TP 1 applic Q6HPO [facility] Administration Oxycodone HCl 2.5 mg 10/18/19 06:53 Roxicodone - PO Q6H PRN PAIN LEVEL 1-5 Pantoprazole Sodium 40 mg 10/01/19 10:00 10/19/19 09:37 Protonix - PO 40 mg DAILY [facility] Administration Polyethylene Glycol 17 gm 10/01/19 10:00 10/19/19 09:37 Miralax (For Daily Use) - PO Not Given BID [facility] Selenium Sulfide 1 applic 10/16/19 08:39 Selenium Sulfide 2.25% Shampoo TP 10/23/19 08:39 DAILY PRN FOR ITCHING Triamcinolone Acetonide 1 applic 10/18/19 10:00 10/19/19 09:36 Aristocort 0.1% Cream - TP 1 applic DAILY [facility] Administration Triamcinolone Acetonide 1 applic 10/19/19 10:15 10/19/19 12:17 Aristocort 0.1% Lotion - TP 1 applic BID [facility] Administration Vital Signs Period Temp Pulse Resp BP Sys/[place] Pulse Ox Last 24 Hr 97.4 F-99.2 F 94-100 18-18 105-135/49-67 97-98 Constitutional: Yes: No Distress, Calm Eyes: No: Sclera Icterus HENT: No: Nasal Congestion Cardiovascular: Yes: Pulse Irregular, JVD, S1, S2, Other (PMI non diplaced). No: Gallop, Murmur Respiratory: Yes: Regular, CTA Bilaterally. No: Accessory Muscle Use Gastrointestinal: Yes: Normal Bowel Sounds, Soft. No: Tenderness Extremities: No: Cold, Cyanosis Edema: 1+ le edema bl Integumentary: No: Jaundice Neurological: Yes: Alert, Oriented (x3) Psychiatric: No: Agitated Assessment/Plan echo 03/2019 nl LV function, mild MR, mild TR, PASP at least 49 mmHg IMP/REC: Acute diastolic heart failure exacerbation: - recent echo nl LV function - no signs acs - holding aldactone - was on iv lasix but no sig improvement and cr worsened. It was rec'd that pt have HD but she declined so transitioned to po lasix, but now with vol build up and back on iv lasix. - patient now agreeable to HD - renal following - cont nitrates for cardiorenal syndrome HTN: - bp stable - cont current meds crow on CKD: - Baseline creat from last admission is 2-2.5, elevated now, likely cardiorenal - renal following PAF: -cont coreg for rate control -cont eliquis low dose (age, creatinine) liver mass: -heme/onc following
--- NOTE | 2019-10-19 13:37 | PN ---
Progress Note, Physician History of Present Illness: AWAKE IN BED C/O INTENSELY PRURITIC GENERALIZED RASH NO C/O FEVER/CHILLS AFEBRILE + LEUKOCYTOSIS AZOTEMIA - Current Medication List Current Medications: Active Medications Acetaminophen (Tylenol -) 650 mg PO Q6H PRN PRN Reason: PAIN LEVEL 6-10 Last Admin: 10/19/19 09:34 Dose: 650 mg Documented by: Apixaban (Eliquis -) 2.5 mg PO BID [facility] Last Admin: 10/19/19 09:37 Dose: 2.5 mg Documented by: Bisacodyl (Dulcolax Suppository -) 10 mg VT PRN PRN PRN Reason: CONSTIPATION Last Admin: 10/15/19 13:05 Dose: 10 mg Documented by: Camphor/Menthol (Sarna Anti-Itch -) 1 applic TP BID PRN PRN Reason: FOR ITCHING Carvedilol (Coreg -) 37.5 mg PO BID [facility] Last Admin: 10/19/19 09:36 Dose: 37.5 mg Documented by: Docusate Sodium (Colace -) 300 mg PO HS [facility] Last Admin: 10/18/19 21:05 Dose: Not Given Documented by: Furosemide (Lasix Injection -) 80 mg IVPUSH BID@0600,1400 [facility] Last Admin: 10/19/19 13:28 Dose: 80 mg Documented by: Hydralazine HCl (Apresoline -) 10 mg PO TID [facility] Last Admin: 10/19/19 13:28 Dose: 10 mg Documented by: Hydroxyzine Pamoate (Vistaril -) 25 mg PO Q8H PRN PRN Reason: FOR ITCHING Last Admin: 10/18/19 18:06 Dose: 25 mg Documented by: Insulin Aspart (Novolog Vial Sliding Scale -) 1 vial SQ ACHS [facility]; Protocol Last Admin: 10/19/19 12:32 Dose: Not Given Documented by: Lactobacillus Acidophilus (Bacid -) 1 tab PO DAILY [facility] Last Admin: 10/19/19 09:37 Dose: 1 tab Documented by: Letrozole (Femara -) 2.5 mg PO DAILY [facility] Last Admin: 10/19/19 09:36 Dose: 2.5 mg Documented by: Levothyroxine Sodium (Synthroid -) 100 mcg PO ACBK [facility] Last Admin: 10/19/19 06:02 Dose: 100 mcg Documented by: Lidocaine (Lidoderm Patch -) 1 patch TP DAILY [facility] Last Admin: 10/19/19 09:37 Dose: 1 patch Documented by: Miscellaneous (Lidoderm Patch Removal) 1 each MC DAILY@2200 [facility] Last Admin: 10/18/19 21:04 Dose: 1 each Documented by: Nitroglycerin (Nitro-Bid 2% Paste -) 1 inch TD Q6HPO [facility] Last Admin: 10/19/19 12:32 Dose: 1 inch Documented by: Nystatin (Mycostatin Cream -) 1 applic TP Q6HPO [facility] Last Admin: 10/19/19 12:32 Dose: 1 applic Documented by: Oxycodone HCl (Roxicodone -) 2.5 mg PO Q6H PRN PRN Reason: PAIN LEVEL 1-5 Pantoprazole Sodium (Protonix -) 40 mg PO DAILY [facility] Last Admin: 10/19/19 09:37 Dose: 40 mg Documented by: Polyethylene Glycol (Miralax (For Daily Use) -) 17 gm PO BID [facility] Last Admin: 10/19/19 09:37 Dose: Not Given Documented by: Selenium Sulfide (Selenium Sulfide 2.25% Shampoo) 1 applic TP DAILY PRN PRN Reason: FOR ITCHING Stop: 10/23/19 08:39 Triamcinolone Acetonide (Aristocort 0.1% Cream -) 1 applic TP DAILY [facility] Last Admin: 10/19/19 09:36 Dose: 1 applic Documented by: Triamcinolone Acetonide (Aristocort 0.1% Lotion -) 1 applic TP BID [facility] Last Admin: 10/19/19 12:17 Dose: 1 applic Documented by: - Objective Vital Signs: Vital Signs Temperature 99.2 F 10/19/19 09:16 Pulse Rate 98 H 10/19/19 09:16 Respiratory Rate 18 10/19/19 09:16 Blood Pressure 108/49 L 10/19/19 09:16 O2 Sat by Pulse Oximetry (%) 98 10/19/19 09:00 Constitutional: Yes: No Distress Eyes: Yes: Conjunctiva Clear Cardiovascular: Yes: Regular Rate and Rhythm, S1, S2 Respiratory: Yes: CTA Bilaterally Gastrointestinal: Yes: Normal Bowel Sounds, Soft, Tenderness Edema: Yes Integumentary: Yes: Other (+ CONFLUENT RASH ON NECK CHEST EXT) Labs: CBC, BMP 10/19/19 06:39 10/19/19 06:39 INR, PTT INR 1.59 (0.83-1.09) H 10/01/19 08:18 Assessment/Plan GENERALIZED RASH ? ETIOLOGY LEUKOCYTOSIS AZOTEMIA NEWS DERM EVALUATION OBSERVE OFF ANTIBIOTICS
--- NOTE | 2019-10-19 15:22 | PN ---
Physical Exam: SUBJECTIVE: Patient seen and examined bedside. In no acute distress. Patient still complaining about skin itching. OBJECTIVE: Vital Signs Period Temp Pulse Resp BP Sys/Hernandez Pulse Ox Last 24 Hr 97.4 F-99.2 F 94-100 18-18 105-135/49-67 97-98 GENERAL: The patient is awake, alert, and oriented, in no acute distress. LUNGS: Breath sounds equal, BL crackles HEART: Regular rate and rhythm ABDOMEN: Soft, nontender, nondistended. EXTREMITIES: BL + 2 pitting edema on ankles, overall leg edema continuing to improve. Sacral decubitus ulcer stage 2 : no suprapubic tenderness. dark red urine noted in collection tub. SKIN: dry flaking skin with increased erythema around the chest. Increased patchy erythematous rash on patient chest and back. Multiple petechiae also noted. Stage 2 decub ulcer. Laboratory Results - last 24 hr 10/16/19 10/17/19 10/18/19 10:40 07:07 20:59 WBC RBC Hgb Hct MCV MCH MCHC RDW Plt Count MPV Absolute Neuts (auto) Neutrophils % Neutrophils % (Manual) Band Neutrophils % Lymphocytes % Lymphocytes % (Manual) Monocytes % Monocytes % (Manual) Eosinophils % Eosinophils % (Manual) Basophils % Basophils % (Manual) Myelocytes % (Man) Promyelocytes % (Man) Blast Cells % (Manual) Nucleated RBC % Metamyelocytes Hypochromia Platelet Estimate Polychromasia Poikilocytosis Anisocytosis Microcytosis Macrocytosis Sodium Potassium Chloride Carbon Dioxide Anion Gap BUN Creatinine Est GFR (CKD-EPI)AfAm Est GFR (CKD-EPI)NonAf POC Glucometer 257 Random Glucose Calcium Phosphorus Magnesium Urine Color Urine Appearance Urine pH Ur Specific [place] Urine Protein Urine Glucose (UA) Urine Ketones Urine Blood Urine Nitrite Urine Bilirubin Urine Urobilinogen Ur Leukocyte Esterase Urine WBC (Auto) Urine RBC (Auto) Urine Casts (Auto) U Epithel Cells (Auto) Urine Crystals (Auto) Urine Bacteria (Auto) Strongyloides IgG Ab Negative Blood Type O NEGATIVE Antibody Screen Negative Crossmatch See Detail 10/19/19 10/19/19 10/19/19 05:58 06:39 06:39 WBC 20.3 H RBC 2.56 L Hgb 7.7 L Hct 24.3 L MCV 94.9 MCH 30.2 MCHC 31.8 L RDW 19.9 H Plt Count 111 L D MPV 9.6 Absolute Neuts (auto) 16.1 H Neutrophils % 79.3 Neutrophils % (Manual) 66.7 Band Neutrophils % 8.0 Lymphocytes % 5.5 L Lymphocytes % (Manual) 3.5 L D Monocytes % 8.8 Monocytes % (Manual) 5 Eosinophils % 6.0 H Eosinophils % (Manual) 8.0 H Basophils % 0.4 Basophils % (Manual) 2.3 H Myelocytes % (Man) 2 Promyelocytes % (Man) 0 Blast Cells % (Manual) 0 Nucleated RBC % 0 Metamyelocytes 5 H D Hypochromia 0 Platelet Estimate Decreased Polychromasia 1+ Poikilocytosis 0 Anisocytosis 1+ Microcytosis 1+ Macrocytosis 1+ Sodium 135 L Potassium 3.9 Chloride 100 Carbon Dioxide 22 Anion Gap 12 BUN 103.3 H Creatinine 2.8 H Est GFR (CKD-EPI)AfAm 16.66 Est GFR (CKD-EPI)NonAf 14.37 POC Glucometer 164 Random Glucose 165 H Calcium 7.4 L Phosphorus 3.5 Magnesium 1.3 L Urine Color Urine Appearance Urine pH Ur Specific [place] Urine Protein Urine Glucose (UA) Urine Ketones Urine Blood Urine Nitrite Urine Bilirubin Urine Urobilinogen Ur Leukocyte Esterase Urine WBC (Auto) Urine RBC (Auto) Urine Casts (Auto) U Epithel Cells (Auto) Urine Crystals (Auto) Urine Bacteria (Auto) Strongyloides IgG Ab Blood Type Antibody Screen Crossmatch 10/19/19 07:20 WBC RBC Hgb Hct MCV MCH MCHC RDW Plt Count MPV Absolute Neuts (auto) Neutrophils % Neutrophils % (Manual) Band Neutrophils % Lymphocytes % Lymphocytes % (Manual) Monocytes % Monocytes % (Manual) Eosinophils % Eosinophils % (Manual) Basophils % Basophils % (Manual) Myelocytes % (Man) Promyelocytes % (Man) Blast Cells % (Manual) Nucleated RBC % Metamyelocytes Hypochromia Platelet Estimate Polychromasia Poikilocytosis Anisocytosis Microcytosis Macrocytosis Sodium Potassium Chloride Carbon Dioxide Anion Gap BUN Creatinine Est GFR (CKD-EPI)AfAm Est GFR (CKD-EPI)NonAf POC Glucometer Random Glucose Calcium Phosphorus Magnesium Urine Color Yellow Urine Appearance Cloudy Urine pH 5.0 Ur Specific [place] 1.014 Urine Protein 3+ H Urine Glucose (UA) Negative Urine Ketones Negative Urine Blood 3+ H Urine Nitrite Negative Urine Bilirubin Negative Urine Urobilinogen 0.2 Ur Leukocyte Esterase 2+ H Urine WBC (Auto) 189 Urine RBC (Auto) 55 Urine Casts (Auto) 0 U Epithel Cells (Auto) 1 Urine Crystals (Auto) Negative Urine Bacteria (Auto) >10,000 Strongyloides IgG Ab Blood Type Antibody Screen Crossmatch Active Medications Generic Name Dose Route Start Last Admin Trade Name Freq PRN Reason Stop Dose Admin Acetaminophen 650 mg 10/11/19 12:26 10/19/19 09:34 Tylenol - PO 650 mg Q6H PRN Administration PAIN LEVEL 6-10 Apixaban 2.5 mg 10/04/19 22:00 10/19/19 09:37 Eliquis - PO 2.5 mg BID [facility]IT Administration Bisacodyl 10 mg 10/14/19 13:59 10/15/19 13:05 Dulcolax Suppository - [place] 10 mg PRN PRN Administration CONSTIPATION Camphor/Menthol 1 applic 10/17/19 12:39 Sarna Anti-Itch - TP BID PRN FOR ITCHING Carvedilol 37.5 mg 10/14/19 22:00 10/19/19 09:36 Coreg - PO 37.5 mg BID [facility]IT Administration Docusate Sodium 300 mg 10/01/19 22:00 10/18/19 21:05 Colace - PO Not Given HS [facility]IT Furosemide 80 mg 10/19/19 08:20 10/19/19 13:28 Lasix Injection - IVPUSH 80 mg BID@0600,1400 [facility] Administration Hydralazine HCl 10 mg 09/29/19 14:00 10/19/19 13:28 Apresoline - PO 10 mg TID [facility]IT Administration Hydroxyzine Pamoate 25 mg 10/15/19 21:24 10/18/19 18:06 Vistaril - PO 25 mg Q8H PRN Administration FOR ITCHING Insulin Aspart 1 vial 10/01/19 07:00 10/19/19 12:32 Novolog Vial Sliding Scale - SQ Not Given ACHS [facility] Protocol Lactobacillus Acidophilus 1 tab 09/29/19 14:30 10/19/19 09:37 Bacid - PO 1 tab DAILY [facility] Administration Letrozole 2.5 mg 10/01/19 10:00 10/19/19 09:36 Femara - PO 2.5 mg DAILY [facility] Administration Levothyroxine Sodium 100 mcg 10/01/19 07:00 10/19/19 06:02 Synthroid - PO 100 mcg ACBK [facility] Administration Lidocaine 1 patch 10/13/19 14:00 10/19/19 09:37 Lidoderm Patch - TP 1 patch DAILY [facility] Administration Miscellaneous 1 each 10/13/19 22:00 10/18/19 21:04 Lidoderm Patch Removal MC 1 each DAILY@2200 [facility] Administration Nitroglycerin 1 inch 10/03/19 14:26 10/19/19 12:32 Nitro-Bid 2% Paste - TD 1 inch Q6HPO [facility] Administration Nystatin 1 applic 10/18/19 18:00 10/19/19 12:32 Mycostatin Cream - TP 1 applic Q6HPO [facility] Administration Oxycodone HCl 2.5 mg 10/18/19 06:53 Roxicodone - PO Q6H PRN PAIN LEVEL 1-5 Pantoprazole Sodium 40 mg 10/01/19 10:00 10/19/19 09:37 Protonix - PO 40 mg DAILY [facility] Administration Polyethylene Glycol 17 gm 10/01/19 10:00 10/19/19 09:37 Miralax (For Daily Use) - PO Not Given BID [facility] Selenium Sulfide 1 applic 10/16/19 08:39 Selenium Sulfide 2.25% Shampoo TP 10/23/19 08:39 DAILY PRN FOR ITCHING Triamcinolone Acetonide 1 applic 10/18/19 10:00 10/19/19 09:36 Aristocort 0.1% Cream - TP 1 applic DAILY [facility] Administration Triamcinolone Acetonide 1 applic 10/19/19 10:15 10/19/19 12:17 Aristocort 0.1% Lotion - TP 1 applic BID [facility] Administration ASSESSMENT/PLAN: 89F yo female with pmhx of diastolic CHF, a-fib (on Eliquis), CKD, breast cancer s/p mastectomy, myelodysplasia, IDDM type 2, hypothyroidism, HLD, CVA, and GERD presents with b/l leg swelling and nausea for "weeks" and back pain for several days admitted for acute CHF exacerbation. MAURICE on CKD; BUN/Cr continues to improve -serial BMPs to monitor Cr (baseline near 2) today 2.8 -skin flaking may be due to renal disease uremia (xerosis cutis) - Dr. Diaz in Cardio f/u noted patient may be agreeable to HD treatment - UA + culture pending, holding treatment for now as patient is not symptomatic, discuss with Dr. Meraz when cultures are back. - Dr. Sequeira - gave a dose of aldactone today Thrombocytopenia and Leukocytosis platelets have been dropping over last few days today Plts up to 84 WBC count also continuously elevating concerned for MDS morphing into Leukemia. Consulted Dr. Reynaga - patient and heme/onc both agree that no bone biopsy should be done - counts have been stable - flow cytometry did not show AML - continue to monitor and treat symptoms - concerned that rash is manifestation of underlying infection - Dr. Turk (Derm) saw patient 10/17 and does believes it's more likely a combination of dermatitis/eczema, & petechiae from edema. Does not rec biopsy at this time. Recommended oral steroids to patient but she said patient refused. For now, ordered Triamcinolone lotion to be applied all over body. - Give oral Benadryl if patient is extremely itchy but with caution Consulted Dr. Maria for Rheumatology for possible vasculitis. C3 & C4 ordered today. Acute on Chronic Diastolic CHF Exacerbation; - Daily weights, I/Os, 2gm Na diet w/ fluid restriction - Patient did not do well on oral lasix >>> switched back to IV - Cont 2.5 L O2 NC - Repeat Echo (10/03) showed LV wnl, EF 55-60%, atria severely dilated, RV borderline in size and fxn, AV sclerotic, MV severe annular calcification, trace MR, mod to sev TR and sev pHTN, possible small pericardial effusion - patient increasingly tachy - increase coreg to 37.5 BID (10/13) Anemia; likely multi-factorial in setting of CKD, myelodysplasia - Transfusion 1 PRBC on 10/15 - Continue to transfuse PRN to maintain Hgb >7 New 4 cm L Hepatic Lobe lesion; in setting of hx of breast cancer and MDS - Onc consulted- Dr. Sullivan CA 27-[address] Sullivan could not be reached ([phone]) - Cont home meds: Letrozole 2.5 QD Stage 2 sacral ulcer; not infected -Santyl and bandage -Frequent turning and positioning -Dilaudid 0.5 mg Q6H PRN for pain ESBL UTI; - resolved/ repeat UA on 10/13 negative No urinary symptoms -UCx +ESBL Kleb pneumo; repeat UCx +Group D strep/enterococcus -Per ID, Ertapenem 500 mg QD completed today. Started on ZYVOX 600MG PO BID X 3D completed Hyponatremia; likely 2/2 fluid overload. Resolved. -2gm Na diet w/ fluid restriction -IV diuresis -Renal consulted Generalized abdominal pain; 2/2 constipation vs. liver mass -Miralax 17 gm BID for constipation -QTc 484, try to avoid Zofran for nausea/vomiting Hypothyroidism; Cont home meds: Synthroid 100 Prophylaxis -DVT: Cont home Eliquis 2.5 BID - Team spoke to cardiology on 10/05/ regarding patient's kidney function and Eliquis, Cardiology recommended to maintain eliquis as is. -GI: Cont home Protonix 40 FEN On soft diet with thin liquids DISPO: - direct mail manager will discuss options with patient - Palliative Care Consult f/u (Dr. Macdonald) She would be appropriate for comfort/ hospice care given her multiple comorbidities, metastatic cancer, debilitated state with diastolic CHF and CKD approaching end stage, pressure ulcers. However she does not want hospice/ comfort care at this point. Would continue pain meds, diuretics. She will be appropriate for SNF on palliative care Visit type - Emergency Visit Emergency Visit: Yes ED Registration Date: 09/24/19 Care time: The patient presented to the Emergency Department on the above date and was hospitalized for further evaluation of their emergent condition. - New Patient This patient is new to me today: No - Critical Care Critical Care patient: No - Discharge Referral Referred to [facility] Med P.C.: No ATTENDING PHYSICIAN STATEMENT I saw and evaluated the patient. I reviewed the resident's note and discussed the case with the resident. I agree with the resident's findings and plan as documented. SUBJECTIVE: OBJECTIVE: ASSESSMENT AND PLAN:
--- NOTE | 2019-10-19 17:04 | PN ---
Progress Note, Physician History of Present Illness: Pt seen and examined at bedside. She is awake and alert. She complains of itching. We discussed HD at length again today and she is going to discuss it with her family. - Current Medication List Current Medications: Active Medications Acetaminophen (Tylenol -) 650 mg PO Q6H PRN PRN Reason: PAIN LEVEL 6-10 Last Admin: 10/19/19 09:34 Dose: 650 mg Documented by: Apixaban (Eliquis -) 2.5 mg PO BID [facility] Last Admin: 10/19/19 09:37 Dose: 2.5 mg Documented by: Bisacodyl (Dulcolax Suppository -) 10 mg ID PRN PRN PRN Reason: CONSTIPATION Last Admin: 10/15/19 13:05 Dose: 10 mg Documented by: Camphor/Menthol (Sarna Anti-Itch -) 1 applic TP BID PRN PRN Reason: FOR ITCHING Carvedilol (Coreg -) 37.5 mg PO BID [facility] Last Admin: 10/19/19 09:36 Dose: 37.5 mg Documented by: Docusate Sodium (Colace -) 300 mg PO HS [facility] Last Admin: 10/18/19 21:05 Dose: Not Given Documented by: Furosemide (Lasix Injection -) 80 mg IVPUSH BID@0600,1400 [facility] Last Admin: 10/19/19 13:28 Dose: 80 mg Documented by: Hydralazine HCl (Apresoline -) 10 mg PO TID [facility] Last Admin: 10/19/19 13:28 Dose: 10 mg Documented by: Hydroxyzine Pamoate (Vistaril -) 25 mg PO Q8H PRN PRN Reason: FOR ITCHING Last Admin: 10/18/19 18:06 Dose: 25 mg Documented by: Insulin Aspart (Novolog Vial Sliding Scale -) 1 vial SQ ACHS [facility]; Protocol Last Admin: 10/19/19 16:29 Dose: 4 units Documented by: Lactobacillus Acidophilus (Bacid -) 1 tab PO DAILY [facility] Last Admin: 10/19/19 09:37 Dose: 1 tab Documented by: Letrozole (Femara -) 2.5 mg PO DAILY [facility] Last Admin: 10/19/19 09:36 Dose: 2.5 mg Documented by: Levothyroxine Sodium (Synthroid -) 100 mcg PO ACBK [facility] Last Admin: 10/19/19 06:02 Dose: 100 mcg Documented by: Lidocaine (Lidoderm Patch -) 1 patch TP DAILY [facility] Last Admin: 10/19/19 09:37 Dose: 1 patch Documented by: Miscellaneous (Lidoderm Patch Removal) 1 each MC DAILY@2200 [facility] Last Admin: 10/18/19 21:04 Dose: 1 each Documented by: Nitroglycerin (Nitro-Bid 2% Paste -) 1 inch TD Q6HPO [facility] Last Admin: 10/19/19 12:32 Dose: 1 inch Documented by: Nystatin (Mycostatin Cream -) 1 applic TP Q6HPO [facility] Last Admin: 10/19/19 12:32 Dose: 1 applic Documented by: Oxycodone HCl (Roxicodone -) 2.5 mg PO Q6H PRN PRN Reason: PAIN LEVEL 1-5 Pantoprazole Sodium (Protonix -) 40 mg PO DAILY [facility] Last Admin: 10/19/19 09:37 Dose: 40 mg Documented by: Polyethylene Glycol (Miralax (For Daily Use) -) 17 gm PO BID [facility] Last Admin: 10/19/19 09:37 Dose: Not Given Documented by: Selenium Sulfide (Selenium Sulfide 2.25% Shampoo) 1 applic TP DAILY PRN PRN Reason: FOR ITCHING Stop: 10/23/19 08:39 Triamcinolone Acetonide (Aristocort 0.1% Cream -) 1 applic TP DAILY [facility] Last Admin: 10/19/19 09:36 Dose: 1 applic Documented by: Triamcinolone Acetonide (Aristocort 0.1% Lotion -) 1 applic TP BID [facility] Last Admin: 10/19/19 12:17 Dose: 1 applic Documented by: - Objective Vital Signs: Vital Signs Temperature 98.0 F 10/19/19 14:47 Pulse Rate 95 H 10/19/19 14:47 Respiratory Rate 18 10/19/19 14:47 Blood Pressure 114/54 L 10/19/19 14:47 O2 Sat by Pulse Oximetry (%) 98 10/19/19 09:00 Constitutional: Yes: Calm Eyes: Yes: Conjunctiva Clear HENT: Yes: Atraumatic Neck: Yes: Supple Cardiovascular: Yes: S1, S2 Respiratory: Yes: CTA Bilaterally Gastrointestinal: Yes: Soft Genitourinary: Yes: Incontinence Edema: Yes Edema: LLE: 3+, RLE: 3+ Integumentary: Yes: Rash Neurological: Yes: Oriented Psychiatric: Yes: Oriented Labs: CBC, BMP 10/19/19 06:39 10/19/19 06:39 INR, PTT INR 1.59 (0.83-1.09) H 10/01/19 08:18 Assessment/Plan Current Medications Generic Name Dose Route Start Last Admin Trade Name Freq PRN Reason Stop Dose Admin Acetaminophen 650 mg 10/11/19 12:26 10/19/19 09:34 Tylenol - PO 650 mg Q6H PRN Administration PAIN LEVEL 6-10 Apixaban 2.5 mg 10/04/19 22:00 10/19/19 09:37 Eliquis - PO 2.5 mg BID AMRIT Administration Bisacodyl 10 mg 10/14/19 13:59 10/15/19 13:05 Dulcolax Suppository - ID 10 mg PRN PRN Administration CONSTIPATION Camphor/Menthol 1 applic 10/17/19 12:39 Sarna Anti-Itch - TP BID PRN FOR ITCHING Carvedilol 37.5 mg 10/14/19 22:00 10/19/19 09:36 Coreg - PO 37.5 mg BID AMRIT Administration Docusate Sodium 300 mg 10/01/19 22:00 10/18/19 21:05 Colace - PO Not Given HS AM[facility]IT Furosemide 80 mg 10/19/19 08:20 10/19/19 13:28 Lasix Injection - IVPUSH 80 mg BID@0600,1400 [facility] Administration Hydralazine HCl 10 mg 09/29/19 14:00 10/19/19 13:28 Apresoline - PO 10 mg TID [facility]IT Administration Hydroxyzine Pamoate 25 mg 10/15/19 21:24 10/18/19 18:06 Vistaril - PO 25 mg Q8H PRN Administration FOR ITCHING Insulin Aspart 1 vial 10/01/19 07:00 10/19/19 16:29 Novolog Vial Sliding Scale - SQ 4 units ACHS [facility] Administration Protocol Lactobacillus Acidophilus 1 tab 09/29/19 14:30 10/19/19 09:37 Bacid - PO 1 tab DAILY [facility] Administration Letrozole 2.5 mg 10/01/19 10:00 10/19/19 09:36 Femara - PO 2.5 mg DAILY [facility] Administration Levothyroxine Sodium 100 mcg 10/01/19 07:00 10/19/19 06:02 Synthroid - PO 100 mcg ACBK [facility] Administration Lidocaine 1 patch 10/13/19 14:00 10/19/19 09:37 Lidoderm Patch - TP 1 patch DAILY [facility] Administration Miscellaneous 1 each 10/13/19 22:00 10/18/19 21:04 Lidoderm Patch Removal MC 1 each DAILY@2200 [facility] Administration Nitroglycerin 1 inch 10/03/19 14:26 10/19/19 12:32 Nitro-Bid 2% Paste - TD 1 inch Q6HPO [facility] Administration Nystatin 1 applic 10/18/19 18:00 10/19/19 12:32 Mycostatin Cream - TP 1 applic Q6HPO [facility] Administration Oxycodone HCl 2.5 mg 10/18/19 06:53 Roxicodone - PO Q6H PRN PAIN LEVEL 1-5 Pantoprazole Sodium 40 mg 10/01/19 10:00 10/19/19 09:37 Protonix - PO 40 mg DAILY [facility] Administration Polyethylene Glycol 17 gm 10/01/19 10:00 10/19/19 09:37 Miralax (For Daily Use) - PO Not Given BID [facility] Selenium Sulfide 1 applic 10/16/19 08:39 Selenium Sulfide 2.25% Shampoo TP 10/23/19 08:39 DAILY PRN FOR ITCHING Triamcinolone Acetonide 1 applic 10/18/19 10:00 10/19/19 09:36 Aristocort 0.1% Cream - TP 1 applic DAILY [facility] Administration Triamcinolone Acetonide 1 applic 10/19/19 10:15 10/19/19 12:17 Aristocort 0.1% Lotion - TP 1 applic BID [facility] Administration Impression 1. proteinuria 2. hypothyroid 3. HTN 4. DM 5. fluid overload 6. breast cancer 7. anemia 8. CKD 9. CHF 10. hyponatremia 11. hypokalemia 12. MAURICE Plan - fluid status worse, increase diuretics - phos level normal - will likely need HD, discussed at length with pt - unable to reach daughter today - derm eval for rash - will also give a dose of aldactone today - discussed with cardio - will follow
[2019-10-19] MEDS ORDERED: FUROSEMIDE 40 MG/4 ML INJECTABLE VIAL IVPUSH ONE (17:30)
[2019-10-19] MEDS ORDERED: SPIRONOLACTONE 25 MG TABLET PO ONE (17:30)
[2019-10-19] MEDS: LIDOCAINE PATCH REMOVAL MC SCH (21:30)
[2019-10-19] MEDS: DOCUSATE SODIUM 100 MG CAPSULE (FP) PO SCH (21:30)
[2019-10-20] MEDS: NYSTATIN 100,000 UNIT/GM TOPICAL CREAM 15 GM TUBE TP SCH ×4 (00:40→17:36)
[2019-10-20] MEDS: NITROGLYCERIN 2% OINTMENT - 1GM PACKET TD SCH ×5 (00:40→17:36)
[2019-10-20] MEDS: ACETAMINOPHEN 325 MG TABLET (FP) PO PRN ×2 (03:01→09:45)
[2019-10-20] MEDS: FUROSEMIDE 40 MG/4 ML INJECTABLE VIAL IVPUSH SCH ×3 (05:50→21:23)
[2019-10-20] MEDS: hydrALAZINE HCL 10 MG TABLET PO SCH ×2 (06:01→13:02)
[2019-10-20] MEDS ORDERED: INSULIN (NOVOLOG) ASPART 100 UNITS/ML 10ML VIAL ONE ×2 (06:01→12:14)
[2019-10-20] MEDS: INSULIN SLIDING SCALE (NOVOLOG) 1 VIAL SQ SCH ×4 (06:02→21:25)
[2019-10-20] MEDS: LEVOTHYROXINE NA 100 MCG TABLET (FP) PO SCH (06:03)
[2019-10-20] MEDS ORDERED: PT OWN MED DRAWER 7, Y5N ONE ×3 (06:13→11:45)
[2019-10-20 08:32] LABS: INR 2.02 (0.83-1.09)
[2019-10-20] MEDS ORDERED: LIDOCAINE 5% TOPICAL PATCH TP SCH (08:50)
[2019-10-20 08:51] LABS: ALBUMIN 1.8 g/dl (3.4-5.0); BILIRUBIN,TOTAL 0.4 mg/dL (0.2-1); BLOOD UREA NITROGEN 102.6 mg/dL (7-18); CALCIUM 7.5 mg/dL (8.5-10.1); CREATININE 2.9 mg/dL (0.55-1.3); MAGNESIUM 1.6 mg/dL (1.8-2.4); PHOSPHOROUS 3.3 mg/dL (2.5-4.9); POTASSIUM 3.5 mmol/L (3.5-5.1)
[2019-10-20 08:58] LABS: HEMATOCRIT 25.9 % (32.4-45.2); HEMOGLOBIN 8.1 GM/dL (10.7-15.3); MCH 29.8 pg (25.7-33.7); MCHC 31.3 g/dl (32.0-36.0); MEAN CELL VOLUME 95.1 fl (80-96); MEAN PLT VOLUME 9.4 fl (7.5-11.1); PLATELET COUNT 126 K/MM3 (134-434); RBC 2.73 M/mm3 (3.60-5.2); RDW 20.3 % (11.6-15.6); WHITE BLOOD COUNT 20.3 K/mm3 (4.0-10.0)
[2019-10-20] MEDS: CARVEDILOL 12.5 MG TABLET (FP) PO SCH ×2 (09:43→21:23)
[2019-10-20] MEDS: PANTOPRAZOLE 40 MG TABLET PO SCH (09:43)
[2019-10-20] MEDS: APIXABAN 2.5 MG TABLET PO SCH ×2 (09:43→21:23)
[2019-10-20] MEDS: LACTOBACILLUS ACIDOPHILUS 1 TABLET PO SCH (09:44)
[2019-10-20] MEDS: LETROZOLE 2.5 MG TABLET (FP) PO SCH (09:44)
[2019-10-20] MEDS: POLYETHYLENE GLYCOL 3350 119 GM BTL PO SCH ×2 (09:44→21:24)
[2019-10-20] MEDS: LIDOCAINE 5% TOPICAL PATCH TP SCH (09:44)
[2019-10-20] MEDS: TRIAMCINOLONE ACET 0.1% CREAM 15 GM TUBE TP SCH (09:44)
[2019-10-20] MEDS: TRIAMCINOLONE ACET 0.1% 60 ML LOTION TP SCH ×2 (09:44→21:24)
--- NOTE | 2019-10-20 11:42 | CON.GU ---
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) Cardio/Vascular: Yes: CHF, HTN Gastrointestinal: Yes: Constipation, GERD Renal/: Yes: Renal Failure Psych: Yes: Psychosis Musculoskeletal: Yes: Chronic low back pain, Other Endocrine: Yes: Diabetes Mellitus - Alcohol/Substance Use Hx Alcohol Use: No - Smoking History Smoking history: Never smoked Have you smoked in the past 12 months: No Aproximately how many cigarettes per day: 0 - Social History Usual Living Arrangement: Alone History of Recent Travel: No Home Medications - Allergies Allergies/Adverse Reactions: Allergies Allergy/AdvReac Type Severity Reaction Status Date / Time NSAIDS (Non-Steroidal Allergy Severe Difficulty Verified 04/08/19 22:55 Anti-Inflamma Breathing ibuprofen Allergy Intermediate Rash Verified 04/08/19 22:55 meloxicam [From Mobic] Allergy Intermediate Rash Verified 04/08/19 22:55 rosiglitazone maleate Allergy Verified 04/08/19 22:55 [From Avandia] albuterol AdvReac Intermediate Elevated Verified 04/08/19 22:55 Blood Pressure epinephrine AdvReac Intermediate Elevated Verified 04/08/19 22:55 Blood Pressure oxycodone HCl [From Percodan] AdvReac Intermediate Elevated Verified 04/08/19 22:55 Blood Pressure oxycodone terephthalate AdvReac Intermediate Elevated Verified 04/08/19 22:55 [From Percodan] Blood Pressure flu shot AdvReac Severe [place]AIN Uncoded 04/08/19 22:55 BARRE SYNDROME - Home Medications Home Medications: Ambulatory Orders Calcium Carbonate/Vitamin D3 [Calcium 500-Vit D3 400 Tablet] 1 each PO BID 06/23/18 Carvedilol [Coreg -] 25 mg PO BID 06/23/18 Polyethylene Glycol 3350 [Miralax 119 gm Btl -] 17 gm PO DAILY PRN bottle 04/27/19 Amlodipine Besylate [Norvasc -] 5 mg PO DAILY 08/12/19 Apixaban [Eliquis] 2.5 mg PO BID 08/12/19 Furosemide [Lasix -] 80 mg PO BID 08/12/19 Isosorbide Mononitrate [Imdur -] 60 mg PO DAILY 08/12/19 Sitagliptin Phosphate [Januvia] 25 mg PO DAILY 08/12/19 hydrALAZINE HCL [Apresoline -] 10 mg PO TID 08/12/19 Insulin Glargine,Hum.rec.anlog [Lantus] 25 unit SQ DAILY 09/24/19 Insulin Lispro [Humalog] 100 unit SQ PRN 09/24/19 Letrozole [Femara] 2.5 mg PO DAILY 09/24/19 Omeprazole 20 mg PO DAILY 09/24/19 Pantoprazole Sodium [Protonix] 40 mg PO DAILY 09/24/19 Simethicone 125 mg PO Q4H PRN 09/24/19 Multivitamin [One-Daily Multi-Vitamin] 1 each PO DAILY 09/25/19 Ondansetron [Zofran -] 4 mg PO Q4H PRN 09/25/19 Oxycodone HCl/Acetaminophen [Percocet 5-325 mg Tablet] 1 tab PO Q12H PRN 09/25/19 Diclofenac Sodium 2 gm TP DAILY 09/26/19 Isosorbide Mononitrate [Isosorbide Mononitrate ER] 60 mg PO DAILY 10/06/19 Tramadol HCl 1 tab TID 10/06/19 Physical Exam- Vital Signs: Vital Signs Temperature 97.8 F 10/20/19 10:00 Pulse Rate 100 H 10/20/19 10:00 Respiratory Rate 20 10/20/19 10:00 Blood Pressure 142/67 10/20/19 10:00 O2 Sat by Pulse Oximetry (%) 98 10/20/19 10:00 Labs: CBC, BMP 10/20/19 07:24 10/20/19 06:00 Assessment/Plan This 89 year old obese female seen for evaluation of Urinary incontinence. Pt. is essentially bedridden, on lasix. Being treated also for UTI. No urological work up at present. Pt may benefit from her catheter. will follow as necessary.
--- NOTE | 2019-10-20 12:14 | PN ---
Progress Note (short form) - Note Progress Note: no sob, no dizzy, no cp, no palps. complains of itching, rash Current Medications Generic Name Dose Route Start Last Admin Trade Name Freq PRN Reason Stop Dose Admin Acetaminophen 650 mg 10/11/19 12:26 10/20/19 09:45 Tylenol - PO 650 mg Q6H PRN Administration PAIN LEVEL 6-10 Apixaban 2.5 mg 10/04/19 22:00 10/20/19 09:43 Eliquis - PO 2.5 mg BID AMRIT Administration Bisacodyl 10 mg 10/14/19 13:59 10/15/19 13:05 Dulcolax Suppository - [place] 10 mg PRN PRN Administration CONSTIPATION Camphor/Menthol 1 applic 10/17/19 12:39 Sarna Anti-Itch - TP BID PRN FOR ITCHING Carvedilol 37.5 mg 10/14/19 22:00 10/20/19 09:43 Coreg - PO 37.5 mg BID AMRIT Administration Docusate Sodium 300 mg 10/01/19 22:00 10/19/19 21:30 Colace - PO Not Given HS AMRIT Furosemide 80 mg 10/19/19 08:20 10/20/19 05:50 Lasix Injection - IVPUSH 80 mg BID@0600,1400 AMRIT Administration Hydralazine HCl 10 mg 09/29/19 14:00 10/20/19 06:01 Apresoline - PO Not Given TID AMRIT Hydroxyzine Pamoate 25 mg 10/15/19 21:24 10/18/19 18:06 Vistaril - PO 25 mg Q8H PRN Administration FOR ITCHING Insulin Aspart 1 vial 10/01/19 07:00 10/20/19 11:46 Novolog Vial Sliding Scale - SQ 2 units ACHS AMRIT Administration Protocol Lactobacillus Acidophilus 1 tab 09/29/19 14:30 10/20/19 09:44 Bacid - PO 1 tab DAILY AMRIT Administration Letrozole 2.5 mg 10/01/19 10:00 10/20/19 09:44 Femara - PO 2.5 mg DAILY AMRIT Administration Levothyroxine Sodium 100 mcg 10/01/19 07:00 10/20/19 06:03 Synthroid - PO 100 mcg ACBK AMRIT Administration Lidocaine 3 patch 10/20/19 10:00 10/20/19 09:44 Lidoderm Patch - TP 3 patch DAILY AMRIT Administration Miscellaneous 1 each 10/13/19 22:00 10/19/19 21:30 Lidoderm Patch Removal MC 1 each DAILY@2200 AMRIT Administration Nitroglycerin 1 inch 10/03/19 14:26 10/20/19 11:46 Nitro-Bid 2% Paste - TD 1 inch Q6HPO AMRIT Administration Nystatin 1 applic 10/18/19 18:00 10/20/19 11:46 Mycostatin Cream - TP 1 applic Q6HPO AMRIT Administration Pantoprazole Sodium 40 mg 10/01/19 10:00 10/20/19 09:43 Protonix - PO 40 mg DAILY AMRIT Administration Polyethylene Glycol 17 gm 10/01/19 10:00 10/20/19 09:44 Miralax (For Daily Use) - PO Not Given BID AMRIT Selenium Sulfide 1 applic 10/16/19 08:39 Selenium Sulfide 2.25% Shampoo TP 10/23/19 08:39 DAILY PRN FOR ITCHING Triamcinolone Acetonide 1 applic 10/18/19 10:00 10/20/19 09:44 Aristocort 0.1% Cream - TP 1 applic DAILY AMRIT Administration Triamcinolone Acetonide 1 applic 10/19/19 10:15 10/20/19 09:44 Aristocort 0.1% Lotion - TP 1 applic BID AMRIT Administration Vital Signs Period Temp Pulse Resp BP Sys/Hernandez Pulse Ox Last 24 Hr 97.4 F-98.6 F 81-103 18-22 99-142/47-68 96-99 Constitutional: Yes: No Distress, Calm Eyes: No: Sclera Icterus HENT: No: Nasal Congestion Cardiovascular: Yes: Pulse Irregular, JVD, S1, S2, Other (PMI non diplaced). No: Gallop, Murmur Respiratory: Yes: Regular, CTA Bilaterally. No: Accessory Muscle Use Gastrointestinal: Yes: Normal Bowel Sounds, Soft. No: Tenderness Extremities: No: Cold, Cyanosis Edema: 1+ le edema bl Integumentary: No: Jaundice Neurological: Yes: Alert, Oriented (x3) Psychiatric: No: Agitated Assessment/Plan echo 03/2019 nl LV function, mild MR, mild TR, PASP at least 49 mmHg IMP/REC: Acute diastolic heart failure exacerbation: - recent echo nl LV function - no signs acs - PRN aldactone per renal - was on iv lasix but no sig improvement and cr worsened. It was rec'd that pt have HD but she declined so transitioned to po lasix, but now with vol build up and back on iv lasix. - d/w renal - had agreed to HD now reconsidering. increased dose to lasix 80 mg IV BID - cont nitrates for cardiorenal syndrome HTN: - bp stable - cont current meds crow on CKD: - Baseline creat from last admission is 2-2.5, elevated now, likely cardiorenal - renal following PAF: -cont coreg for rate control -cont eliquis low dose (age, creatinine) liver mass: -heme/onc following
[2019-10-20] MEDS ORDERED: diphenhydrAMINE HCL 25 MG CAPSULE (FP) PO PRN (12:17)
--- NOTE | 2019-10-20 12:36 | PN ---
Progress Note (short form) - Note Progress Note: Surgery note: Asked to evaluate the patients sacral wound. The patient has limited ROM, although today she sat at the side of the bed with PT. THe paitent complains of itching and rash. Vital Signs Period Temp Pulse Resp BP Sys/Hernandez Pulse Ox Last 24 Hr 97.4 F-98.6 F 81-103 18-22 99-142/47-68 96-99 GEN: A&ox3, NAD Sacrum: no evidence of DTI. No erythema, there are some linear cracks to her skin. b/l heel with protectors and no skin breakdown. A/P: 89 yo female with itching and rash to body No evidence of DTI, rcommend frequent position changes and continue PT May use alleyn to sacral area. D/w Dr. Prado
[2019-10-20] MEDS ORDERED: MAGNESIUM 1GM/D5W 100ML - 100 ML IVPB IVPB ONE (12:47)
--- NOTE | 2019-10-20 12:47 | PN ---
Progress Note, Physician History of Present Illness: Pt seen and examined at bedside. She still complains of edema. She does have a rash. - Current Medication List Current Medications: Active Medications Acetaminophen (Tylenol -) 650 mg PO Q6H PRN PRN Reason: PAIN LEVEL 6-10 Last Admin: 10/20/19 09:45 Dose: 650 mg Documented by: Apixaban (Eliquis -) 2.5 mg PO BID [facility] Last Admin: 10/20/19 09:43 Dose: 2.5 mg Documented by: Bisacodyl (Dulcolax Suppository -) 10 mg [place] PRN PRN PRN Reason: CONSTIPATION Last Admin: 10/15/19 13:05 Dose: 10 mg Documented by: Camphor/Menthol (Sarna Anti-Itch -) 1 applic TP BID PRN PRN Reason: FOR ITCHING Carvedilol (Coreg -) 37.5 mg PO BID [facility] Last Admin: 10/20/19 09:43 Dose: 37.5 mg Documented by: Diphenhydramine HCl (Benadryl -) 25 mg PO Q4H PRN PRN Reason: FOR ITCHING Docusate Sodium (Colace -) 300 mg PO HS [facility] Last Admin: 10/19/19 21:30 Dose: Not Given Documented by: Furosemide (Lasix Injection -) 80 mg IVPUSH TID [facility] Hydralazine HCl (Apresoline -) 10 mg PO TID [facility] Last Admin: 10/20/19 06:01 Dose: Not Given Documented by: Hydroxyzine Pamoate (Vistaril -) 25 mg PO Q8H PRN PRN Reason: FOR ITCHING Last Admin: 10/18/19 18:06 Dose: 25 mg Documented by: Insulin Aspart (Novolog Vial Sliding Scale -) 1 vial SQ [facility]; Protocol Last Admin: 10/20/19 11:46 Dose: 2 units Documented by: Lactobacillus Acidophilus (Bacid -) 1 tab PO DAILY [facility] Last Admin: 10/20/19 09:44 Dose: 1 tab Documented by: Letrozole (Femara -) 2.5 mg PO DAILY [facility] Last Admin: 10/20/19 09:44 Dose: 2.5 mg Documented by: Levothyroxine Sodium (Synthroid -) 100 mcg PO ACBK [facility] Last Admin: 10/20/19 06:03 Dose: 100 mcg Documented by: Lidocaine (Lidoderm Patch -) 3 patch TP DAILY [facility] Last Admin: 10/20/19 09:44 Dose: 3 patch Documented by: Miscellaneous (Lidoderm Patch Removal) 1 each MC DAILY@2200 [facility] Last Admin: 10/19/19 21:30 Dose: 1 each Documented by: Nitroglycerin (Nitro-Bid 2% Paste -) 1 inch TD Q6HPO [facility] Last Admin: 10/20/19 11:46 Dose: 1 inch Documented by: Nystatin (Mycostatin Cream -) 1 applic TP Q6HPO [facility] Last Admin: 10/20/19 11:46 Dose: 1 applic Documented by: Pantoprazole Sodium (Protonix -) 40 mg PO DAILY [facility] Last Admin: 10/20/19 09:43 Dose: 40 mg Documented by: Polyethylene Glycol (Miralax (For Daily Use) -) 17 gm PO BID [facility] Last Admin: 10/20/19 09:44 Dose: Not Given Documented by: Selenium Sulfide (Selenium Sulfide 2.25% Shampoo) 1 applic TP DAILY PRN PRN Reason: FOR ITCHING Stop: 10/23/19 08:39 Triamcinolone Acetonide (Aristocort 0.1% Cream -) 1 applic TP DAILY [facility] Last Admin: 10/20/19 09:44 Dose: 1 applic Documented by: Triamcinolone Acetonide (Aristocort 0.1% Lotion -) 1 applic TP BID [facility] Last Admin: 10/20/19 09:44 Dose: 1 applic Documented by: - Objective Vital Signs: Vital Signs Temperature 97.8 F 10/20/19 10:00 Pulse Rate 100 H 10/20/19 10:00 Respiratory Rate 20 10/20/19 10:00 Blood Pressure 142/67 10/20/19 10:00 O2 Sat by Pulse Oximetry (%) 98 10/20/19 10:00 Constitutional: Yes: Calm Eyes: Yes: Conjunctiva Clear HENT: Yes: Atraumatic Neck: Yes: Supple Cardiovascular: Yes: S1, S2 Gastrointestinal: Yes: WNL Genitourinary: Yes: Incontinence Musculoskeletal: Yes: Muscle Weakness Edema: Yes Edema: LLE: 2+, RLE: 2+ Neurological: Yes: Oriented Psychiatric: Yes: Oriented Labs: CBC, BMP 10/20/19 07:24 10/20/19 06:00 INR, PTT INR 2.02 (0.83-1.09) H 10/20/19 07:24 Assessment/Plan Current Medications Generic Name Dose Route Start Last Admin Trade Name Freq PRN Reason Stop Dose Admin Acetaminophen 650 mg 10/11/19 12:26 10/20/19 09:45 Tylenol - PO 650 mg Q6H PRN Administration PAIN LEVEL 6-10 Apixaban 2.5 mg 10/04/19 22:00 10/20/19 09:43 Eliquis - PO 2.5 mg BID AMRIT Administration Bisacodyl 10 mg 10/14/19 13:59 10/15/19 13:05 Dulcolax Suppository - [place] 10 mg PRN PRN Administration CONSTIPATION Camphor/Menthol 1 applic 10/17/19 12:39 Sarna Anti-Itch - TP BID PRN FOR ITCHING Carvedilol 37.5 mg 10/14/19 22:00 10/20/19 09:43 Coreg - PO 37.5 mg BID AMRIT Administration Diphenhydramine HCl 25 mg 10/20/19 12:17 Benadryl - PO Q4H PRN FOR ITCHING Docusate Sodium 300 mg 10/01/19 22:00 10/19/19 21:30 Colace - PO Not Given HS AMRIT Furosemide 80 mg 10/20/19 14:00 Lasix Injection - IVPUSH TID AMRIT Hydralazine HCl 10 mg 09/29/19 14:00 10/20/19 06:01 Apresoline - PO Not Given TID AMRIT Hydroxyzine Pamoate 25 mg 10/15/19 21:24 10/18/19 18:06 Vistaril - PO 25 mg Q8H PRN Administration FOR ITCHING Insulin Aspart 1 vial 10/01/19 07:00 10/20/19 11:46 Novolog Vial Sliding Scale - SQ 2 units ACHS AMRIT Administration Protocol Lactobacillus Acidophilus 1 tab 09/29/19 14:30 10/20/19 09:44 Bacid - PO 1 tab DAILY AMRIT Administration Letrozole 2.5 mg 10/01/19 10:00 10/20/19 09:44 Femara - PO 2.5 mg DAILY AMRIT Administration Levothyroxine Sodium 100 mcg 10/01/19 07:00 10/20/19 06:03 Synthroid - PO 100 mcg ACBK AMRIT Administration Lidocaine 3 patch 10/20/19 10:00 10/20/19 09:44 Lidoderm Patch - TP 3 patch DAILY AM[facility]IT Administration Miscellaneous 1 each 10/13/19 22:00 10/19/19 21:30 Lidoderm Patch Removal MC 1 each DAILY@2200 AM[facility]IT Administration Nitroglycerin 1 inch 10/03/19 14:26 10/20/19 11:46 Nitro-Bid 2% Paste - TD 1 inch Q6HPO AMRIT Administration Nystatin 1 applic 10/18/19 18:00 10/20/19 11:46 Mycostatin Cream - TP 1 applic Q6HPO AM[facility]IT Administration Pantoprazole Sodium 40 mg 10/01/19 10:00 10/20/19 09:43 Protonix - PO 40 mg DAILY AMRIT Administration Polyethylene Glycol 17 gm 10/01/19 10:00 10/20/19 09:44 Miralax (For Daily Use) - PO Not Given BID AMRIT Selenium Sulfide 1 applic 10/16/19 08:39 Selenium Sulfide 2.25% Shampoo TP 10/23/19 08:39 DAILY PRN FOR ITCHING Triamcinolone Acetonide 1 applic 10/18/19 10:00 10/20/19 09:44 Aristocort 0.1% Cream - TP 1 applic DAILY AM[facility]IT Administration Triamcinolone Acetonide 1 applic 10/19/19 10:15 10/20/19 09:44 Aristocort 0.1% Lotion - TP 1 applic BID AMRIT Administration Impression 1. proteinuria 2. hypothyroid 3. HTN 4. DM 5. fluid overload 6. breast cancer 7. anemia 8. CKD 9. CHF 10. hyponatremia 11. hypokalemia 12. MAURICE Plan - cont lasix - monitor volume status - pt considering dialysis - follow serologies - replace potassium - derm eval for rash - will also give a dose of aldactone today - discussed with cardio - will follow
[2019-10-20] MEDS ORDERED: POTASSIUM CHLORIDE TABS 20 MEQ TABLET.ER (FP) PO ONE (13:00)
--- NOTE | 2019-10-20 14:46 | CONSULT ---
Consult Consult Specialty:: Rheumatology - History of Present Illness History of Present Illness: 89 y/o female from [facility]. PMHx: Polio (age 13), s/p meningitis (age 13), [place] (2008), IDDM type 2, hypothyroidism, HLD, CVA, diastolic CHF, a-fib (on Eliquis), CKD, breast cancer s/p mastectomy, myelodysplasia (karyotype: trisomy of chromosome 8), hepatic lobe hypodense lesion suspicious for metastatic disease as well as a 2.[address] enlargement and enlarged retroperitoneal nodes and GERD admitted with edema in lower limbs, shortness of breath vomiting and a 2 month history of generalized pruritus. The patient has diffuse skin rash, consult to rule out connective tissue disease. The patient reports a 2 month history of diffuse pruritus and prior to this admission she was not aware that she has a skin rash. 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 Laboratory work-up: CBC with WBC of 20.7,m Hgb 8.1, HCT 25.9 and platelets 126. Creatinine on admission 3.4 and today 2.9. AST 14, ALT: 11 and alkaline phosphatase 352. CEA 6.4 (N<4.7, CA27.29: 75 (N<38.6). Urinalysis: one week ago protein 3 + and blood. Today: protein 3+, blood 3+ and LE 2+. 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) Cardio/Vascular: Yes: CHF, HTN Gastrointestinal: Yes: Constipation, GERD Renal/: Yes: Renal Failure Psych: Yes: Psychosis Musculoskeletal: Yes: Chronic low back pain, Other Endocrine: Yes: Diabetes Mellitus - Alcohol/Substance Use Hx Alcohol Use: No - Smoking History Smoking history: Never smoked Have you smoked in the past 12 months: No Aproximately how many cigarettes per day: 0 - Social History Usual Living Arrangement: Alone History of Recent Travel: No Home Medications - Allergies Allergies/Adverse Reactions: Allergies Allergy/AdvReac Type Severity Reaction Status Date / Time NSAIDS (Non-Steroidal Allergy Severe Difficulty Verified 04/08/19 22:55 Anti-Inflamma Breathing ibuprofen Allergy Intermediate Rash Verified 04/08/19 22:55 meloxicam [From Mobic] Allergy Intermediate Rash Verified 04/08/19 22:55 rosiglitazone maleate Allergy Verified 04/08/19 22:55 [From Avandia] albuterol AdvReac Intermediate Elevated Verified 04/08/19 22:55 Blood Pressure epinephrine AdvReac Intermediate Elevated Verified 04/08/19 22:55 Blood Pressure oxycodone HCl [From Percodan] AdvReac Intermediate Elevated Verified 04/08/19 22:55 Blood Pressure oxycodone terephthalate AdvReac Intermediate Elevated Verified 04/08/19 22:55 [From Percodan] Blood Pressure flu shot AdvReac Severe [place]AIN Uncoded 04/08/19 22:55 BARRE SYNDROME - Home Medications Home Medications: Ambulatory Orders Calcium Carbonate/Vitamin D3 [Calcium 500-Vit D3 400 Tablet] 1 each PO BID 06/23/18 Carvedilol [Coreg -] 25 mg PO BID 06/23/18 Polyethylene Glycol 3350 [Miralax 119 gm Btl -] 17 gm PO DAILY PRN bottle 04/27/19 Amlodipine Besylate [Norvasc -] 5 mg PO DAILY 08/12/19 Apixaban [Eliquis] 2.5 mg PO BID 08/12/19 Furosemide [Lasix -] 80 mg PO BID 08/12/19 Isosorbide Mononitrate [Imdur -] 60 mg PO DAILY 08/12/19 Sitagliptin Phosphate [Januvia] 25 mg PO DAILY 08/12/19 hydrALAZINE HCL [Apresoline -] 10 mg PO TID 08/12/19 Insulin Glargine,Hum.rec.anlog [Lantus] 25 unit SQ DAILY 09/24/19 Insulin Lispro [Humalog] 100 unit SQ PRN 09/24/19 Letrozole [Femara] 2.5 mg PO DAILY 09/24/19 Omeprazole 20 mg PO DAILY 09/24/19 Pantoprazole Sodium [Protonix] 40 mg PO DAILY 09/24/19 Simethicone 125 mg PO Q4H PRN 09/24/19 Multivitamin [One-Daily Multi-Vitamin] 1 each PO DAILY 09/25/19 Ondansetron [Zofran -] 4 mg PO Q4H PRN 09/25/19 Oxycodone HCl/Acetaminophen [Percocet 5-325 mg Tablet] 1 tab PO Q12H PRN 09/25/19 Diclofenac Sodium 2 gm TP DAILY 09/26/19 Isosorbide Mononitrate [Isosorbide Mononitrate ER] 60 mg PO DAILY 10/06/19 Tramadol HCl 1 tab TID 10/06/19 Review of Systems - Review of Systems Constitutional: reports: Malaise Eyes: reports: No Symptoms Neck: reports: No Symptoms Cardiovascular: reports: No Symptoms Respiratory: reports: No Symptoms Musculoskeletal: reports: Other (Diffuse aches and pains.) Physical Exam Vital Signs: Vital Signs Temperature 97.6 F 10/20/19 13:46 Pulse Rate 88 10/20/19 13:46 Respiratory Rate 20 10/20/19 13:46 Blood Pressure 113/54 L 10/20/19 13:46 O2 Sat by Pulse Oximetry (%) 98 10/20/19 10:00 Constitutional: Yes: Moderate Distress Eyes: Yes: WNL Cardiovascular: Yes: WNL Respiratory: Yes: WNL Gastrointestinal: Yes: WNL Musculoskeletal: Yes: Other (No active joints and no tenderness in fibrositic tender points.) Integumentary: Yes: Other (Purpuric lesions in legs with coalescent areas. Diffuse morbiliform rash in chest. Large scally lesions in palms with erythema.) Labs: CBC, BMP 10/20/19 07:24 10/20/19 06:00 Laboratory Tests 09/24/19 10/02/19 10/17/19 20:54 07:10 07:07 Calcium Phosphorus Magnesium Total Bilirubin AST ALT Alkaline Phosphatase Carcinoembryonic Ag 6.4 H CA 27-29 75 H Urine Appearance Urine pH Ur Specific [place] Urine Protein Urine Glucose (UA) Urine Ketones Urine Blood Urine Nitrite Urine Bilirubin Urine Urobilinogen Ur Leukocyte Esterase Urine WBC (Auto) Urine RBC (Auto) Urine Casts (Auto) COVID-19 (TOYA) Not detected Strongyloides IgG Ab Negative 10/19/19 10/20/19 07:20 06:00 Calcium 7.5 L Phosphorus 3.3 Magnesium 1.6 L Total Bilirubin 0.4 AST 19 ALT 11 L Alkaline Phosphatase 352 H Carcinoembryonic Ag CA 27-29 Urine Appearance Cloudy Urine pH 5.0 Ur Specific [place] 1.014 Urine Protein 3+ H Urine Glucose (UA) Negative Urine Ketones Negative Urine Blood 3+ H Urine Nitrite Negative Urine Bilirubin Negative Urine Urobilinogen 0.2 Ur Leukocyte Esterase 2+ H Urine WBC (Auto) 189 Urine RBC (Auto) 55 Urine Casts (Auto) 0 COVID-19 (TOYA) Strongyloides IgG Ab Problem List - Problems (1) Skin rash Assessment/Plan: Purpuric and exantematous diffuse rash with involvement of palms. Etiology to be determined. Rule out paraneoplastic disease. Plan: I requested consult to Dr. Baker for skin biopsy. The patient might need to be transferred for management of this problem. Code(s): R21 - RASH AND OTHER NONSPECIFIC SKIN ERUPTION
--- NOTE | 2019-10-20 15:11 | PN ---
Progress Note, Physician History of Present Illness: AWAKE IN BED CONTINUES TO C/O INTENSELY PRURITIC GENERALIZED RASH NO C/O FEVER/CHILLS AFEBRILE + LEUKOCYTOSIS AZOTEMIA - Current Medication List Current Medications: Active Medications Acetaminophen (Tylenol -) 650 mg PO Q6H PRN PRN Reason: PAIN LEVEL 6-10 Last Admin: 10/20/19 09:45 Dose: 650 mg Documented by: Apixaban (Eliquis -) 2.5 mg PO BID [facility] Last Admin: 10/20/19 09:43 Dose: 2.5 mg Documented by: Bisacodyl (Dulcolax Suppository -) 10 mg [place] PRN PRN PRN Reason: CONSTIPATION Last Admin: 10/15/19 13:05 Dose: 10 mg Documented by: Camphor/Menthol (Sarna Anti-Itch -) 1 applic TP BID PRN PRN Reason: FOR ITCHING Carvedilol (Coreg -) 37.5 mg PO BID [facility] Last Admin: 10/20/19 09:43 Dose: 37.5 mg Documented by: Diphenhydramine HCl (Benadryl -) 25 mg PO Q4H PRN PRN Reason: FOR ITCHING Docusate Sodium (Colace -) [address] [facility] Last Admin: 10/19/19 21:30 Dose: Not Given Documented by: Furosemide (Lasix Injection -) 80 mg IVPUSH TID [facility] Last Admin: 10/20/19 13:02 Dose: 80 mg Documented by: Hydralazine HCl (Apresoline -) 10 mg PO TID [facility] Last Admin: 10/20/19 13:02 Dose: 10 mg Documented by: Hydroxyzine Pamoate (Vistaril -) 25 mg PO Q8H PRN PRN Reason: FOR ITCHING Last Admin: 10/18/19 18:06 Dose: 25 mg Documented by: Insulin Aspart (Novolog Vial Sliding Scale -) 1 vial SQ [facility]; Protocol Last Admin: 10/20/19 11:46 Dose: 2 units Documented by: Lactobacillus Acidophilus (Bacid -) 1 tab PO DAILY [facility] Last Admin: 10/20/19 09:44 Dose: 1 tab Documented by: Letrozole (Femara -) 2.5 mg PO DAILY [facility] Last Admin: 10/20/19 09:44 Dose: 2.5 mg Documented by: Levothyroxine Sodium (Synthroid -) 100 mcg PO ACBK [facility] Last Admin: 10/20/19 06:03 Dose: 100 mcg Documented by: Lidocaine (Lidoderm Patch -) 3 patch TP DAILY [facility] Last Admin: 10/20/19 09:44 Dose: 3 patch Documented by: Miscellaneous (Lidoderm Patch Removal) 1 each MC DAILY@2200 [facility] Last Admin: 10/19/19 21:30 Dose: 1 each Documented by: Nitroglycerin (Nitro-Bid 2% Paste -) 1 inch TD Q6HPO [facility] Last Admin: 10/20/19 11:46 Dose: 1 inch Documented by: Nystatin (Mycostatin Cream -) 1 applic TP Q6HPO [facility] Last Admin: 10/20/19 11:46 Dose: 1 applic Documented by: Pantoprazole Sodium (Protonix -) 40 mg PO DAILY [facility] Last Admin: 10/20/19 09:43 Dose: 40 mg Documented by: Polyethylene Glycol (Miralax (For Daily Use) -) 17 gm PO BID [facility] Last Admin: 10/20/19 09:44 Dose: Not Given Documented by: Selenium Sulfide (Selenium Sulfide 2.25% Shampoo) 1 applic TP DAILY PRN PRN Reason: FOR ITCHING Stop: 10/23/19 08:39 Triamcinolone Acetonide (Aristocort 0.1% Cream -) 1 applic TP DAILY [facility] Last Admin: 10/20/19 09:44 Dose: 1 applic Documented by: Triamcinolone Acetonide (Aristocort 0.1% Lotion -) 1 applic TP BID [facility] Last Admin: 10/20/19 09:44 Dose: 1 applic Documented by: - Objective Vital Signs: Vital Signs Temperature 97.6 F 10/20/19 13:46 Pulse Rate 88 10/20/19 13:46 Respiratory Rate 20 10/20/19 13:46 Blood Pressure 113/54 L 10/20/19 13:46 O2 Sat by Pulse Oximetry (%) 98 10/20/19 10:00 Constitutional: Yes: No Distress Eyes: Yes: Conjunctiva Clear Cardiovascular: Yes: Regular Rate and Rhythm, S1, S2 Respiratory: Yes: CTA Bilaterally Gastrointestinal: Yes: Normal Bowel Sounds, Soft Integumentary: Yes: Other (+ CONFLUENT RASH ON NECK, CHEST, ABDOMEN) Labs: CBC, BMP 10/20/19 07:24 10/20/19 06:00 INR, PTT INR 2.02 (0.83-1.09) H 10/20/19 07:24 Assessment/Plan GENERALIZED RASH ? ETIOLOGY LEUKOCYTOSIS AZOTEMIA NEEDS DERM EVALUATION OBSERVE OFF ANTIBIOTICS
--- NOTE | 2019-10-20 18:50 | PN ---
Teaching Attending Note Name of Resident: Kylah Denton ATTENDING PHYSICIAN STATEMENT I saw and evaluated the patient. I reviewed the resident's note and discussed the case with the resident. I agree with the resident's findings and plan as documented. SUBJECTIVE: Patient is comfortable with no acute distress, c/o having continues itching. OBJECTIVE: Vital Signs Temperature 97.6 F 10/20/19 13:46 Pulse Rate 88 10/20/19 13:46 Respiratory Rate 20 10/20/19 13:46 Blood Pressure 113/54 L 10/20/19 13:46 O2 Sat by Pulse Oximetry (%) 98 10/20/19 10:00 PE:per resident's note macularPAPULAR rash all over her body CBCD WBC 20.3 K/mm3 (4.0-10.0) H 10/20/19 07:24 RBC 2.73 M/mm3 (3.60-5.2) L 10/20/19 07:24 Hgb 8.1 GM/dL (10.7-15.3) L 10/20/19 07:24 Hct 25.9 % (32.4-45.2) L 10/20/19 07:24 MCV 95.1 fl (80-96) 10/20/19 07:24 MCHC 31.3 g/dl (32.0-36.0) L 10/20/19 07:24 RDW 20.3 % (11.6-15.6) H 10/20/19 07:24 Plt Count 126 K/MM3 (134-434) L 10/20/19 07:24 MPV 9.4 fl (7.5-11.1) 10/20/19 07:24 CMP Sodium 135 mmol/L (136-145) L 10/20/19 06:00 Potassium 3.5 mmol/L (3.5-5.1) 10/20/19 06:00 Chloride 100 mmol/L (98-107) 10/20/19 06:00 Carbon Dioxide 25 mmol/L (21-32) 10/20/19 06:00 Anion Gap 10 MMOL/L (8-16) 10/20/19 06:00 BUN 102.6 mg/dL (7-18) H 10/20/19 06:00 Creatinine 2.9 mg/dL (0.55-1.3) H 10/20/19 06:00 Random Glucose 131 mg/dL (74-106) H 10/20/19 06:00 Calcium 7.5 mg/dL (8.5-10.1) L 10/20/19 06:00 Total Bilirubin 0.4 mg/dL (0.2-1) 10/20/19 06:00 AST 19 U/L (15-37) 10/20/19 06:00 ALT 11 U/L (13-61) L 10/20/19 06:00 Alkaline Phosphatase 352 U/L (45-117) H 10/20/19 06:00 Total Protein 6.0 g/dl (6.4-8.2) L 10/20/19 06:00 Albumin 1.8 g/dl (3.4-5.0) L 10/20/19 06:00 CARDIAC ENZYMES Troponin I < 0.02 ng/ml (0.00-0.05) 09/24/19 16:49 Current Medications Generic Name Dose Route Start Last Admin Trade Name Freq PRN Reason Stop Dose Admin Acetaminophen 650 mg 10/11/19 12:26 10/20/19 09:45 Tylenol - PO 650 mg Q6H PRN Administration PAIN LEVEL 6-10 Apixaban 2.5 mg 10/04/19 22:00 10/20/19 09:43 Eliquis - PO 2.5 mg BID AMRIT Administration Bisacodyl 10 mg 10/14/19 13:59 10/15/19 13:05 Dulcolax Suppository - [place] 10 mg PRN PRN Administration CONSTIPATION Camphor/Menthol 1 applic 10/17/19 12:39 Sarna Anti-Itch - TP BID PRN FOR ITCHING Carvedilol 37.5 mg 10/14/19 22:00 10/20/19 09:43 Coreg - PO 37.5 mg BID AMRIT Administration Diphenhydramine HCl 25 mg 10/20/19 12:17 Benadryl - PO Q4H PRN FOR ITCHING Docusate Sodium 300 mg 10/01/19 22:00 10/19/19 21:30 Colace - PO Not Given HS AMRIT Furosemide 80 mg 10/20/19 14:00 10/20/19 13:02 Lasix Injection - IVPUSH 80 mg TID AMRIT Administration Hydroxyzine Pamoate 25 mg 10/15/19 21:24 10/18/19 18:06 Vistaril - PO 25 mg Q8H PRN Administration FOR ITCHING Insulin Aspart 1 vial 10/01/19 07:00 10/20/19 16:46 Novolog Vial Sliding Scale - SQ 4 units ACHS AMRIT Administration Protocol Lactobacillus Acidophilus 1 tab 09/29/19 14:30 10/20/19 09:44 Bacid - PO 1 tab DAILY AMIRT Administration Letrozole 2.5 mg 10/01/19 10:00 10/20/19 09:44 Femara - PO 2.5 mg DAILY AMRIT Administration Levothyroxine Sodium 100 mcg 10/01/19 07:00 10/20/19 06:03 Synthroid - PO 100 mcg ACBK AMRIT Administration Lidocaine 3 patch 10/20/19 10:00 10/20/19 09:44 Lidoderm Patch - TP 3 patch DAILY AMRIT Administration Miscellaneous 1 each 10/13/19 22:00 10/19/19 21:30 Lidoderm Patch Removal MC 1 each DAILY@2200 AMRIT Administration Nitroglycerin 1 inch 10/03/19 14:26 10/20/19 17:36 Nitro-Bid 2% Paste - TD 1 inch Q6HPO AMRIT Administration Nystatin 1 applic 10/18/19 18:00 10/20/19 17:36 Mycostatin Cream - TP 1 applic Q6HPO AMRIT Administration Pantoprazole Sodium 40 mg 10/01/19 10:00 10/20/19 09:43 Protonix - PO 40 mg DAILY AMRIT Administration Polyethylene Glycol 17 gm 10/01/19 10:00 10/20/19 09:44 Miralax (For Daily Use) - PO Not Given BID AMRIT Selenium Sulfide 1 applic 10/16/19 08:39 Selenium Sulfide 2.25% Shampoo TP 10/23/19 08:39 DAILY PRN FOR ITCHING Triamcinolone Acetonide 1 applic 10/18/19 10:00 10/20/19 09:44 Aristocort 0.1% Cream - TP 1 applic DAILY AMRIT Administration Triamcinolone Acetonide 1 applic 10/19/19 10:15 10/20/19 09:44 Aristocort 0.1% Lotion - TP 1 applic BID AMRIT Administration Home Medications Medication Instructions Recorded Calcium Carbonate/Vitamin D3 1 each PO BID 06/23/18 [Calcium 500-Vit D3 400 Tablet] Carvedilol [Coreg -] 25 mg PO BID 06/23/18 Polyethylene Glycol 3350 [Miralax 17 gm PO DAILY PRN bottle 04/27/19 119 gm Btl -] Amlodipine Besylate [Norvasc -] 5 mg PO DAILY 08/12/19 Apixaban [Eliquis] 2.5 mg PO BID 08/12/19 Furosemide [Lasix -] 80 mg PO BID 08/12/19 Isosorbide Mononitrate [Imdur -] 60 mg PO DAILY 08/12/19 Sitagliptin Phosphate [Januvia] 25 mg PO DAILY 08/12/19 hydrALAZINE HCL [Apresoline -] 10 mg PO TID 08/12/19 Insulin Glargine,Hum.rec.anlog 25 unit SQ DAILY 09/24/19 [Lantus] Insulin Lispro [Humalog] 100 unit SQ PRN 09/24/19 Letrozole [Femara] 2.5 mg PO DAILY 09/24/19 Omeprazole 20 mg PO DAILY 09/24/19 Pantoprazole Sodium [Protonix] 40 mg PO DAILY 09/24/19 Simethicone 125 mg PO Q4H PRN 09/24/19 Multivitamin [One-Daily 1 each PO DAILY 09/25/19 Multi-Vitamin] Ondansetron [Zofran -] 4 mg PO Q4H PRN 09/25/19 Oxycodone HCl/Acetaminophen 1 tab PO Q12H PRN 09/25/19 [Percocet 5-325 mg Tablet] Diclofenac Sodium 2 gm TP DAILY 09/26/19 Isosorbide Mononitrate [Isosorbide 60 mg PO DAILY 10/06/19 Mononitrate ER] Tramadol HCl 1 tab TID 10/06/19 Microbiology 10/16/19 08:55 Blood - Peripheral Venous Blood Culture - Preliminary NO GROWTH OBTAINED AFTER 96 HOURS, INCUBATION TO CONTINUE FOR 1 DAYS. 10/16/19 08:50 Blood - Peripheral Venous Blood Culture - Preliminary NO GROWTH OBTAINED AFTER 96 HOURS, INCUBATION TO CONTINUE FOR 1 DAYS. 10/19/19 07:20 Urine - Urine Clean Catch Urine Culture - Preliminary Lactose Fermenting Neg Bacilli Pending Organism 10/03/19 09:21 Urine - Urine Clean Catch Urine Culture - Final Vr Ec Faecium 09/24/19 20:45 Urine - Urine Clean Catch Urine Culture - Final Klebsiella Pneumoniae - Esbl ASSESSMENT AND PLAN: This patient is 89yof with Pmhx of Hx of diastolic CHF, a-fib (on Eliquis), CKD, breast cancer s/p mastectomy, myelodysplasia, IDDM type 2, hypothyroidism, HLD, CVA, and GERD who presented with SOB and LE edema and was diagnosed with D. CHF exacerbation. # aCUTE Maculopapular rash : WILL DC Hydralazine, we cannt dc lasix since patient has swelling of lower extremities , discussed with nephro dr Saldivar , yesica be dc'd the lasix at this time, will add benadryl to her regimen. will continue to monitor #Acute on chronic diastolic heart failure : improved #ESBL producing Klebsiella complicated UTI/pyelonephritis : treated #MAURICE on CKD : improved #Liver mass #retroperitoneal LAP #b/l adrenal nodules #h/o MDS #chronic normocytic anemia #persistent leukocytosis #Hx of prolonged QTC #Hyponatremia #high AG metabolic acidosis :resolved #prolonged QTC #Hx of A fib #Stage 2 sacral decubiti will dc hydralazine, possible rash due to hydralazine vs lasix ordered histone and Dr Crow MURRY on the case as per nephro caanot stop lasix for now. continue current care
--- NOTE | 2019-10-20 20:20 | PN ---
Physical Exam: SUBJECTIVE: Patient seen and examined bedside. Complaining of itching being unbearable OBJECTIVE: Vital Signs Period Temp Pulse Resp BP Sys/Hernandez Pulse Ox Last 24 Hr 97.4 F-98.6 F 88-103 18-22 99-142/47-68 96-99 GENERAL: The patient is awake, alert, and oriented, in no acute distress. LUNGS: Breath sounds equal, BL crackles HEART: Regular rate and rhythm ABDOMEN: Soft, nontender, nondistended. EXTREMITIES: BL + 2 pitting edema on ankles, overall leg edema continuing to improve. Sacral decubitus ulcer stage 2 : no suprapubic tenderness. dark red urine noted in collection tub. SKIN: dry flaking skin with increased erythema around the chest. Increased patchy erythematous rash on patient chest and back. Multiple petechiae also noted. Stage 2 decub ulcer. Laboratory Results - last 24 hr 10/19/19 10/20/19 10/20/19 21:16 05:59 06:00 WBC RBC Hgb Hct MCV MCH MCHC RDW Plt Count MPV PT with INR INR PTT (Actin FS) Sodium 135 L Potassium 3.5 Chloride 100 Carbon Dioxide 25 Anion Gap 10 BUN 102.6 H Creatinine 2.9 H Est GFR (CKD-EPI)AfAm 15.97 Est GFR (CKD-EPI)NonAf 13.78 POC Glucometer 182 178 Random Glucose 131 H Calcium 7.5 L Phosphorus 3.3 Magnesium 1.6 L Total Bilirubin 0.4 AST 19 ALT 11 L Alkaline Phosphatase 352 H Total Protein 6.0 L Albumin 1.8 L 10/20/19 10/20/19 10/20/19 07:24 07:24 11:36 WBC 20.3 H RBC 2.73 L Hgb 8.1 L Hct 25.9 L MCV 95.1 MCH 29.8 MCHC 31.3 L RDW 20.3 H Plt Count 126 L MPV 9.4 PT with INR 24.00 H INR 2.02 H PTT (Actin FS) 32.0 Sodium Potassium Chloride Carbon Dioxide Anion Gap BUN Creatinine Est GFR (CKD-EPI)AfAm Est GFR (CKD-EPI)NonAf POC Glucometer 192 Random Glucose Calcium Phosphorus Magnesium Total Bilirubin AST ALT Alkaline Phosphatase Total Protein Albumin 10/20/19 16:38 WBC RBC Hgb Hct MCV MCH MCHC RDW Plt Count MPV PT with INR INR PTT (Actin FS) Sodium Potassium Chloride Carbon Dioxide Anion Gap BUN Creatinine Est GFR (CKD-EPI)AfAm Est GFR (CKD-EPI)NonAf POC Glucometer 209 Random Glucose Calcium Phosphorus Magnesium Total Bilirubin AST ALT Alkaline Phosphatase Total Protein Albumin Active Medications Generic Name Dose Route Start Last Admin Trade Name Freq PRN Reason Stop Dose Admin Acetaminophen 650 mg 10/11/19 12:26 10/20/19 09:45 Tylenol - PO 650 mg Q6H PRN Administration PAIN LEVEL 6-10 Apixaban 2.5 mg 10/04/19 22:00 10/20/19 09:43 Eliquis - PO 2.5 mg BID AMRIT Administration Bisacodyl 10 mg 10/14/19 13:59 10/15/19 13:05 Dulcolax Suppository - [place] 10 mg PRN PRN Administration CONSTIPATION Camphor/Menthol 1 applic 10/17/19 12:39 Sarna Anti-Itch - TP BID PRN FOR ITCHING Carvedilol 37.5 mg 10/14/19 22:00 10/20/19 09:43 Coreg - PO 37.5 mg BID AMRIT Administration Diphenhydramine HCl 25 mg 10/20/19 12:17 Benadryl - PO Q4H PRN FOR ITCHING Docusate Sodium 300 mg 10/01/19 22:00 10/19/19 21:30 Colace - PO Not Given HS AMRIT Furosemide 80 mg 10/20/19 14:00 10/20/19 13:02 Lasix Injection - IVPUSH 80 mg TID AMRIT Administration Hydroxyzine Pamoate 25 mg 10/15/19 21:24 10/18/19 18:06 Vistaril - PO 25 mg Q8H PRN Administration FOR ITCHING Insulin Aspart 1 vial 10/01/19 07:00 10/20/19 16:46 Novolog Vial Sliding Scale - SQ 4 units ACHS AMRIT Administration Protocol Lactobacillus Acidophilus 1 tab 09/29/19 14:30 10/20/19 09:44 Bacid - PO 1 tab DAILY AMRIT Administration Letrozole 2.5 mg 10/01/19 10:00 10/20/19 09:44 Femara - PO 2.5 mg DAILY AMRIT Administration Levothyroxine Sodium 100 mcg 10/01/19 07:00 10/20/19 06:03 Synthroid - PO 100 mcg ACBK AMRIT Administration Lidocaine 3 patch 10/20/19 10:00 10/20/19 09:44 Lidoderm Patch - TP 3 patch DAILY AMRIT Administration Miscellaneous 1 each 10/13/19 22:00 10/19/19 21:30 Lidoderm Patch Removal MC 1 each DAILY@2200 AMRIT Administration Nitroglycerin 1 inch 10/03/19 14:26 10/20/19 17:36 Nitro-Bid 2% Paste - TD 1 inch Q6HPO AMRIT Administration Nystatin 1 applic 10/18/19 18:00 10/20/19 17:36 Mycostatin Cream - TP 1 applic Q6HPO AMRIT Administration Pantoprazole Sodium 40 mg 10/01/19 10:00 10/20/19 09:43 Protonix - PO 40 mg DAILY AMRIT Administration Polyethylene Glycol 17 gm 10/01/19 10:00 10/20/19 09:44 Miralax (For Daily Use) - PO Not Given BID AMRIT Selenium Sulfide 1 applic 10/16/19 08:39 Selenium Sulfide 2.25% Shampoo TP 10/23/19 08:39 DAILY PRN FOR ITCHING Triamcinolone Acetonide 1 applic 10/18/19 10:00 10/20/19 09:44 Aristocort 0.1% Cream - TP 1 applic DAILY AMRIT Administration Triamcinolone Acetonide 1 applic 10/19/19 10:15 10/20/19 09:44 Aristocort 0.1% Lotion - TP 1 applic BID AMRIT Administration ASSESSMENT/PLAN: 89F yo female with pmhx of diastolic CHF, a-fib (on Eliquis), CKD, breast cancer s/p mastectomy, myelodysplasia, IDDM type 2, hypothyroidism, HLD, CVA, and GERD presents with b/l leg swelling and nausea for "weeks" and back pain for several days admitted for acute CHF exacerbation. MAURICE on CKD; BUN/Cr continues to improve -serial BMPs to monitor Cr (baseline near 2) today 2.8 -skin flaking may be due to renal disease uremia (xerosis cutis) - Dr. Diaz in Cardio f/u noted patient may be agreeable to HD treatment - UA + culture pending, holding treatment for now as patient is not symptomatic, discuss with Dr. Meraz when cultures are back. - Dr. Samarneh - started aldactone RASH: -Dr. Turk (Derm) saw patient 10/17 and does believes it's more likely a combination of dermatitis/eczema, & petechiae from edema. Does not rec biopsy at this time. Recommended oral steroids to patient but she said patient refused. Triamcinolone lotion to be applied all over body. -Benadryl po q4hr for itching -Consulted Dr. Maria for Rheumatology for possible vasculitis. Rule out paraneoplastic disease. Requested consult to Dr. Baker for skin biopsy. The patient might need to be transferred for management of this problem. -C3 C4 pending -Possible sulfa rash from lasix v angle syndrome from hydralazine, d/c hydralazine -anti-histone ab & LOVELY ordered Thrombocytopenia and Leukocytosis -platelets have been dropping over last few days today Plts up to 84 -WBC count also continuously elevating -concerned for MDS morphing into Leukemia. -Consulted Dr. Reynaga - patient and heme/onc both agree that no bone biopsy should be done - counts have been stable - flow cytometry did not show AML - continue to monitor and treat symptoms Acute on Chronic Diastolic CHF Exacerbation; - Daily weights, I/Os, 2gm Na diet w/ fluid restriction - Patient did not do well on oral lasix >>> switched back to IV - Cont 2.5 L O2 NC - Repeat Echo (10/03) showed LV wnl, EF 55-60%, atria severely dilated, RV borderline in size and fxn, AV sclerotic, MV severe annular calcification, trace MR, mod to sev TR and sev pHTN, possible small pericardial effusion - patient increasingly tachy - increase coreg to 37.5 BID (10/13) Anemia; likely multi-factorial in setting of CKD, myelodysplasia - Transfusion 1 PRBC on 10/15 - Continue to transfuse PRN to maintain Hgb >7 New 4 cm L Hepatic Lobe lesion; in setting of hx of breast cancer and MDS - Onc consulted- Dr. Sullivan [place] 27-[address] Sullivan could not be reached ([phone]) - Cont home meds: Letrozole 2.5 QD Stage 2 sacral ulcer; not infected -Santyl and bandage -Frequent turning and positioning -Dilaudid 0.5 mg Q6H PRN for pain ESBL UTI; - resolved/ repeat UA on 10/13 negative -No urinary symptoms -UCx +ESBL Kleb pneumo; repeat UCx +Group D strep/enterococcus -Per ID, Ertapenem 500 mg QD completed today. Started on ZYVOX 600MG PO BID X 3D completed Hyponatremia; likely 2/2 fluid overload. Resolved. -2gm Na diet w/ fluid restriction -IV diuresis -Renal consulted Generalized abdominal pain; 2/2 constipation vs. liver mass -Miralax 17 gm BID for constipation -QTc 484, try to avoid Zofran for nausea/vomiting Hypothyroidism; Cont home meds: Synthroid 100 Prophylaxis -DVT: Cont home Eliquis 2.5 BID - Team spoke to cardiology on 10/05/ regarding patient's kidney function and Eliquis, Cardiology recommended to maintain eliquis as is. -GI: Cont home Protonix 40 FEN On soft diet with thin liquids DISPO: - computer project manager will discuss options with patient - Palliative Care Consult f/u (Dr. Macdonald) She would be appropriate for comfort/ hospice care given her multiple comorbidities, metastatic cancer, debilitated state with diastolic CHF and CKD approaching end stage, pressure ulcers. However she does not want hospice/ comfort care at this point. Would continue pain meds, diuretics. She will be appropriate for SNF on palliative care Visit type - Emergency Visit Emergency Visit: Yes ED Registration Date: 09/24/19 Care time: The patient presented to the Emergency Department on the above date and was hospitalized for further evaluation of their emergent condition. - New Patient This patient is new to me today: No - Critical Care Critical Care patient: No - Discharge Referral Referred to [facility] No ATTENDING PHYSICIAN STATEMENT I saw and evaluated the patient. I reviewed the resident's note and discussed the case with the resident. I agree with the resident's findings and plan as documented. SUBJECTIVE: OBJECTIVE: ASSESSMENT AND PLAN:
[2019-10-20] MEDS: DOCUSATE SODIUM 100 MG CAPSULE (FP) PO SCH (21:23)
[2019-10-20] MEDS: LIDOCAINE PATCH REMOVAL MC SCH (21:24)
[2019-10-20 23:17] VITALS: BMI 32.5
[2019-10-21] MEDS ORDERED: PT OWN MED DRAWER 7, Y5N ONE ×5 (00:25→23:35)
[2019-10-21] MEDS: ACETAMINOPHEN 325 MG TABLET (FP) PO PRN (00:26)
[2019-10-21] MEDS: NITROGLYCERIN 2% OINTMENT - 1GM PACKET TD SCH ×5 (00:42→23:36)
[2019-10-21] MEDS: NYSTATIN 100,000 UNIT/GM TOPICAL CREAM 15 GM TUBE TP SCH ×5 (00:42→23:45)
[2019-10-21] MEDS: FUROSEMIDE 40 MG/4 ML INJECTABLE VIAL IVPUSH SCH ×3 (06:23→21:38)
[2019-10-21] MEDS: LEVOTHYROXINE NA 100 MCG TABLET (FP) PO SCH (06:23)
[2019-10-21] MEDS: INSULIN SLIDING SCALE (NOVOLOG) 1 VIAL SQ SCH ×4 (06:29→21:57)
[2019-10-21] MEDS ORDERED: INSULIN (NOVOLOG) ASPART 100 UNITS/ML 10ML VIAL ONE (06:48)
[2019-10-21] MEDS: APIXABAN 2.5 MG TABLET PO SCH ×2 (10:27→21:37)
[2019-10-21] MEDS: PANTOPRAZOLE 40 MG TABLET PO SCH (10:27)
[2019-10-21] MEDS: LACTOBACILLUS ACIDOPHILUS 1 TABLET PO SCH (10:27)
[2019-10-21] MEDS: CARVEDILOL 12.5 MG TABLET (FP) PO SCH ×2 (10:27→21:37)
[2019-10-21] MEDS: LETROZOLE 2.5 MG TABLET (FP) PO SCH (10:28)
[2019-10-21] MEDS: TRIAMCINOLONE ACET 0.1% CREAM 15 GM TUBE TP SCH (10:29)
[2019-10-21] MEDS: TRIAMCINOLONE ACET 0.1% 60 ML LOTION TP SCH ×2 (10:29→21:38)
[2019-10-21] MEDS: POLYETHYLENE GLYCOL 3350 119 GM BTL PO SCH ×2 (10:30→21:39)
[2019-10-21] MEDS: LIDOCAINE 5% TOPICAL PATCH TP SCH (10:30)
[2019-10-21] MEDS ORDERED: methylPREDNISolone NA SUCC 40 MG/1 ML VIAL IVPUSH ONE (11:00)
--- NOTE | 2019-10-21 11:07 | PN ---
Progress Note (short form) - Note Progress Note: Chief Complaint: sob History of Present Illness: no sob, no dizzy, no cp, no palps, c/o back pain Current Medications Generic Name Dose Route Start Last Admin Trade Name Freq PRN Reason Stop Dose Admin Acetaminophen 650 mg 10/11/19 12:26 10/21/19 00:26 Tylenol - PO 650 mg Q6H PRN Administration PAIN LEVEL 6-10 Apixaban 2.5 mg 10/04/19 22:00 10/21/19 10:27 Eliquis - PO 2.5 mg BID AMRIT Administration Bisacodyl 10 mg 10/14/19 13:59 10/15/19 13:05 Dulcolax Suppository - [place] 10 mg PRN PRN Administration CONSTIPATION Camphor/Menthol 1 applic 10/17/19 12:39 Sarna Anti-Itch - TP BID PRN FOR ITCHING Carvedilol 37.5 mg 10/14/19 22:00 10/21/19 10:27 Coreg - PO 37.5 mg BID AMRIT Administration Diphenhydramine HCl 12.5 mg 10/21/19 11:01 Benadryl Injection - IVPUSH Q4H PRN FOR ITCHING Docusate Sodium 300 mg 10/01/19 22:00 10/20/19 21:23 Colace - PO 300 mg HS AMRIT Administration Furosemide 80 mg 10/20/19 14:00 10/21/19 06:23 Lasix Injection - IVPUSH 80 mg TID AMRIT Administration Hydroxyzine Pamoate 25 mg 10/15/19 21:24 10/18/19 18:06 Vistaril - PO 25 mg Q8H PRN Administration FOR ITCHING Insulin Aspart 1 vial 10/01/19 07:00 10/21/19 06:29 Novolog Vial Sliding Scale - SQ 2 units ACHS AMRIT Administration Protocol Lactobacillus Acidophilus 1 tab 09/29/19 14:30 10/21/19 10:27 Bacid - PO 1 tab DAILY AMRIT Administration Letrozole 2.5 mg 10/01/19 10:00 10/21/19 10:28 Femara - PO 2.5 mg DAILY AMRIT Administration Levothyroxine Sodium 100 mcg 10/01/19 07:00 10/21/19 06:23 Synthroid - PO 100 mcg ACBK AMRIT Administration Lidocaine 3 patch 10/20/19 10:00 10/21/19 10:30 Lidoderm Patch - TP 3 patch DAILY AMRIT Administration Miscellaneous 1 each 10/13/19 22:00 10/20/19 21:24 Lidoderm Patch Removal MC 1 each DAILY@2200 AMRIT Administration Nitroglycerin 1 inch 10/03/19 14:26 10/21/19 06:29 Nitro-Bid 2% Paste - TD 1 inch Q6HPO AMRIT Administration Nystatin 1 applic 10/18/19 18:00 10/21/19 06:23 Mycostatin Cream - TP 1 applic Q6HPO AMRIT Administration Pantoprazole Sodium 40 mg 10/01/19 10:00 10/21/19 10:27 Protonix - PO 40 mg DAILY AMRIT Administration Polyethylene Glycol 17 gm 10/01/19 10:00 10/21/19 10:30 Miralax (For Daily Use) - PO Not Given BID AMIRT Selenium Sulfide 1 applic 10/16/19 08:39 Selenium Sulfide 2.25% Shampoo TP 10/23/19 08:39 DAILY PRN FOR ITCHING Triamcinolone Acetonide 1 applic 10/18/19 10:00 10/21/19 10:29 Aristocort 0.1% Cream - TP 1 applic DAILY AMRIT Administration Triamcinolone Acetonide 1 applic 10/19/19 10:15 10/21/19 10:29 Aristocort 0.1% Lotion - TP 1 applic BID AMRIT Administration Vital Signs Period Temp Pulse Resp BP Sys/Hernandez Pulse Ox Last 24 Hr 97.5 F-98.6 F 87-110 16-20 113-138/54-78 95-100 Constitutional: Yes: No Distress, Calm Eyes: No: Sclera Icterus HENT: No: Nasal Congestion Cardiovascular: Yes: Pulse Irregular, JVD, S1, S2, Other (PMI non diplaced). No: Gallop, Murmur Respiratory: Yes: Regular, CTA Bilaterally. No: Accessory Muscle Use Gastrointestinal: Yes: Normal Bowel Sounds, Soft. No: Tenderness Extremities: No: Cold, Cyanosis Edema: 1+ le edema bl Integumentary: No: Jaundice Neurological: Yes: Alert, Oriented (x3) Psychiatric: No: Agitated Labs: CBC, BMP 10/20/19 07:24 10/20/19 06:00 Assessment/Plan echo 03/2019 nl LV function, mild MR, mild TR, PASP at least 49 mmHg IMP/REC: Acute diastolic heart failure exacerbation: - recent echo nl LV function - no signs acs - holding aldactone - was on iv lasix but no sig improvement and cr worsened. It was rec'd that pt have HD but she declined so transitioned to po lasix, but now with vol build up and back on iv lasix. Monitor cr, may again need to consider HD vs pall care. - cont nitrates for cardiorenal syndrome HTN: - bp stable - cont current meds crow on CKD: - Baseline creat from last admission is 2-2.5, elevated now, likely cardiorenal - renal following PAF: -cont coreg for rate control -cont eliquis low dose (age, creatinine) liver mass: -heme/onc following
[2019-10-21 11:47] LABS: HEMATOCRIT 25.9 % (32.4-45.2); HEMOGLOBIN 7.9 GM/dL (10.7-15.3); MCH 29.6 pg (25.7-33.7); MCHC 30.5 g/dl (32.0-36.0); MEAN CELL VOLUME 97.1 fl (80-96); MEAN PLT VOLUME 9.3 fl (7.5-11.1); PLATELET COUNT 151 K/MM3 (134-434); RBC 2.66 M/mm3 (3.60-5.2); RDW 20.4 % (11.6-15.6); WHITE BLOOD COUNT 20.4 K/mm3 (4.0-10.0)
[2019-10-21 11:54] LABS: CREATININE 2.8 mg/dL (0.55-1.3); MAGNESIUM 1.7 mg/dL (1.8-2.4); PHOSPHOROUS 3.7 mg/dL (2.5-4.9); POTASSIUM 4.5 mmol/L (3.5-5.1)
[2019-10-21] MEDS ORDERED: MAGNESIUM SULF 50% (8.12 MEQ/2 ML-1 GM VIAL) IVPB ONE (15:00)
--- NOTE | 2019-10-21 15:03 | PN ---
Progress Note, Physician History of Present Illness: Pt seen and examined at bedside. She still complains of edema and of the rash. - Current Medication List Current Medications: Active Medications Acetaminophen (Tylenol -) 650 mg PO Q6H PRN PRN Reason: PAIN LEVEL 6-10 Last Admin: 10/21/19 00:26 Dose: 650 mg Documented by: Apixaban (Eliquis -) 2.5 mg PO BID [facility] Last Admin: 10/21/19 10:27 Dose: 2.5 mg Documented by: Bisacodyl (Dulcolax Suppository -) 10 mg [place] PRN PRN PRN Reason: CONSTIPATION Last Admin: 10/15/19 13:05 Dose: 10 mg Documented by: Camphor/Menthol (Sarna Anti-Itch -) 1 applic TP BID PRN PRN Reason: FOR ITCHING Carvedilol (Coreg -) 37.5 mg PO BID [facility] Last Admin: 10/21/19 10:27 Dose: 37.5 mg Documented by: Diphenhydramine HCl (Benadryl Injection -) 12.5 mg IVPUSH Q4H PRN PRN Reason: FOR ITCHING Docusate Sodium (Colace -) 300 mg PO HS [facility] Last Admin: 10/20/19 21:23 Dose: 300 mg Documented by: Furosemide (Lasix Injection -) 80 mg IVPUSH TID [facility] Last Admin: 10/21/19 14:34 Dose: 80 mg Documented by: Hydroxyzine Pamoate (Vistaril -) 25 mg PO Q8H PRN PRN Reason: FOR ITCHING Last Admin: 10/18/19 18:06 Dose: 25 mg Documented by: Insulin Aspart (Novolog Vial Sliding Scale -) 1 vial SQ ACHS [facility]; Protocol Last Admin: 10/21/19 11:49 Dose: 2 units Documented by: Lactobacillus Acidophilus (Bacid -) 1 tab PO DAILY [facility] Last Admin: 10/21/19 10:27 Dose: 1 tab Documented by: Letrozole (Femara -) 2.5 mg PO DAILY [facility] Last Admin: 10/21/19 10:28 Dose: 2.5 mg Documented by: Levothyroxine Sodium (Synthroid -) 100 mcg PO ACBK [facility] Last Admin: 10/21/19 06:23 Dose: 100 mcg Documented by: Lidocaine (Lidoderm Patch -) 3 patch TP DAILY [facility] Last Admin: 10/21/19 10:30 Dose: 3 patch Documented by: Magnesium Sulfate (Magnesium Sulfate) 2 gm IVPB ONCE ONE Stop: 10/21/19 15:01 Miscellaneous (Lidoderm Patch Removal) 1 each MC DAILY@2200 [facility] Last Admin: 10/20/19 21:24 Dose: 1 each Documented by: Nitroglycerin (Nitro-Bid 2% Paste -) 1 inch TD Q6HPO [facility] Last Admin: 10/21/19 12:30 Dose: 1 inch Documented by: Nystatin (Mycostatin Cream -) 1 applic TP Q6HPO [facility] Last Admin: 10/21/19 12:30 Dose: 1 applic Documented by: Pantoprazole Sodium (Protonix -) 40 mg PO DAILY [facility] Last Admin: 10/21/19 10:27 Dose: 40 mg Documented by: Polyethylene Glycol (Miralax (For Daily Use) -) 17 gm PO BID [facility] Last Admin: 10/21/19 10:30 Dose: Not Given Documented by: Selenium Sulfide (Selenium Sulfide 2.25% Shampoo) 1 applic TP DAILY PRN PRN Reason: FOR ITCHING Stop: 10/23/19 08:39 Triamcinolone Acetonide (Aristocort 0.1% Cream -) 1 applic TP DAILY [facility] Last Admin: 10/21/19 10:29 Dose: 1 applic Documented by: Triamcinolone Acetonide (Aristocort 0.1% Lotion -) 1 applic TP BID [facility] Last Admin: 10/21/19 10:29 Dose: 1 applic Documented by: - Objective Vital Signs: Vital Signs Temperature 97.7 F 10/21/19 09:00 Pulse Rate 95 H 10/21/19 09:00 Respiratory Rate 16 10/21/19 09:00 Blood Pressure 117/57 L 10/21/19 09:00 O2 Sat by Pulse Oximetry (%) 100 10/21/19 09:00 Constitutional: Yes: Calm Eyes: Yes: Conjunctiva Clear HENT: Yes: Atraumatic Neck: Yes: Supple Cardiovascular: Yes: S1, S2 Respiratory: Yes: CTA Bilaterally Gastrointestinal: Yes: Soft Genitourinary: Yes: Incontinence Musculoskeletal: Yes: Muscle Weakness Edema: Yes Edema: LLE: 3+, RLE: 3+ Neurological: Yes: Oriented Psychiatric: Yes: Oriented Labs: CBC, BMP 10/21/19 06:25 10/21/19 06:25 INR, PTT INR 2.02 (0.83-1.09) H 10/20/19 07:24 Assessment/Plan Current Medications Generic Name Dose Route Start Last Admin Trade Name Freq PRN Reason Stop Dose Admin Acetaminophen 650 mg 10/11/19 12:26 10/21/19 00:26 Tylenol - PO 650 mg Q6H PRN Administration PAIN LEVEL 6-10 Apixaban 2.5 mg 10/04/19 22:00 10/21/19 10:27 Eliquis - PO 2.5 mg BID [facility] Administration Bisacodyl 10 mg 10/14/19 13:59 10/15/19 13:05 Dulcolax Suppository - [place] 10 mg PRN PRN Administration CONSTIPATION Camphor/Menthol 1 applic 10/17/19 12:39 Sarna Anti-Itch - TP BID PRN FOR ITCHING Carvedilol 37.5 mg 10/14/19 22:00 10/21/19 10:27 Coreg - PO 37.5 mg BID [facility] Administration Diphenhydramine HCl 12.5 mg 10/21/19 11:01 Benadryl Injection - IVPUSH Q4H PRN FOR ITCHING Docusate Sodium 300 mg 10/01/19 22:00 10/20/19 21:23 Colace - PO 300 mg HS [facility] Administration Furosemide 80 mg 10/20/19 14:00 10/21/19 14:34 Lasix Injection - IVPUSH 80 mg TID [facility] Administration Hydroxyzine Pamoate 25 mg 10/15/19 21:24 10/18/19 18:06 Vistaril - PO 25 mg Q8H PRN Administration FOR ITCHING Insulin Aspart 1 vial 10/01/19 07:00 10/21/19 11:49 Novolog Vial Sliding Scale - SQ 2 units ACHS [facility] Administration Protocol Lactobacillus Acidophilus 1 tab 09/29/19 14:30 10/21/19 10:27 Bacid - PO 1 tab DAILY [facility] Administration Letrozole 2.5 mg 10/01/19 10:00 10/21/19 10:28 Femara - PO 2.5 mg DAILY [facility] Administration Levothyroxine Sodium 100 mcg 10/01/19 07:00 10/21/19 06:23 Synthroid - PO 100 mcg ACBK [facility] Administration Lidocaine 3 patch 10/20/19 10:00 10/21/19 10:30 Lidoderm Patch - TP 3 patch DAILY [facility] Administration Magnesium Sulfate 2 gm 10/21/19 15:00 Magnesium Sulfate IVPB 10/21/19 15:01 ONCE ONE Miscellaneous 1 each 10/13/19 22:00 10/20/19 21:24 Lidoderm Patch Removal MC 1 each DAILY@2200 [facility] Administration Nitroglycerin 1 inch 10/03/19 14:26 10/21/19 12:30 Nitro-Bid 2% Paste - TD 1 inch Q6HPO [facility] Administration Nystatin 1 applic 10/18/19 18:00 10/21/19 12:30 Mycostatin Cream - TP 1 applic Q6HPO [facility] Administration Pantoprazole Sodium 40 mg 10/01/19 10:00 10/21/19 10:27 Protonix - PO 40 mg DAILY [facility] Administration Polyethylene Glycol 17 gm 10/01/19 10:00 10/21/19 10:30 Miralax (For Daily Use) - PO Not Given BID [facility] Selenium Sulfide 1 applic 10/16/19 08:39 Selenium Sulfide 2.25% Shampoo TP 10/23/19 08:39 DAILY PRN FOR ITCHING Triamcinolone Acetonide 1 applic 10/18/19 10:00 10/21/19 10:29 Aristocort 0.1% Cream - TP 1 applic DAILY [facility] Administration Triamcinolone Acetonide 1 applic 10/19/19 10:15 10/21/19 10:29 Aristocort 0.1% Lotion - TP 1 applic BID [facility] Administration Impression 1. proteinuria 2. hypothyroid 3. HTN 4. DM 5. fluid overload 6. breast cancer 7. anemia 8. CKD 9. CHF 10. hyponatremia 11. hypokalemia 12. MAURICE Plan - cont lasix at 80 IV tid - explosive expert is a little better - discussed HD therapy with pt again and she says she will agree only if it is "life or " decision - cont to monitor response to diuretics - steroids may increase bun - will hold off aldactone as she has a rash - cont aggressive diuresis - discussed with cardio - will follow
--- NOTE | 2019-10-21 16:08 | PN ---
Progress Note, Physician History of Present Illness: AWAKE IN BED LETHARGIC CONTINUES TO C/O INTENSELY PRURITIC GENERALIZED RASH NO C/O FEVER/CHILLS AFEBRILE + LEUKOCYTOSIS AZOTEMIA - Current Medication List Current Medications: Active Medications Acetaminophen (Tylenol -) 650 mg PO Q6H PRN PRN Reason: PAIN LEVEL 6-10 Last Admin: 10/21/19 00:26 Dose: 650 mg Documented by: Albumin Human (Albumin Human 25%) 25 gm IVPB Q6H [facility] Stop: 10/21/19 21:31 Apixaban (Eliquis -) 2.5 mg PO BID [facility] Last Admin: 10/21/19 10:27 Dose: 2.5 mg Documented by: Bisacodyl (Dulcolax Suppository -) 10 mg [place] PRN PRN PRN Reason: CONSTIPATION Last Admin: 10/15/19 13:05 Dose: 10 mg Documented by: Camphor/Menthol (Sarna Anti-Itch -) 1 applic TP BID PRN PRN Reason: FOR ITCHING Carvedilol (Coreg -) 37.5 mg PO BID [facility] Last Admin: 10/21/19 10:27 Dose: 37.5 mg Documented by: Diphenhydramine HCl (Benadryl Injection -) 12.5 mg IVPUSH Q4H PRN PRN Reason: FOR ITCHING Docusate Sodium (Colace -) 300 mg PO HS [facility] Last Admin: 10/20/19 21:23 Dose: 300 mg Documented by: Furosemide (Lasix Injection -) 80 mg IVPUSH TID [facility] Last Admin: 10/21/19 14:34 Dose: 80 mg Documented by: Hydroxyzine Pamoate (Vistaril -) 25 mg PO Q8H PRN PRN Reason: FOR ITCHING Last Admin: 10/18/19 18:06 Dose: 25 mg Documented by: Insulin Aspart (Novolog Vial Sliding Scale -) 1 vial SQ [facility]; Protocol Last Admin: 10/21/19 11:49 Dose: 2 units Documented by: Lactobacillus Acidophilus (Bacid -) 1 tab PO DAILY [facility] Last Admin: 10/21/19 10:27 Dose: 1 tab Documented by: Letrozole (Femara -) 2.5 mg PO DAILY [facility] Last Admin: 10/21/19 10:28 Dose: 2.5 mg Documented by: Levothyroxine Sodium (Synthroid -) 100 mcg PO ACBK [facility] Last Admin: 10/21/19 06:23 Dose: 100 mcg Documented by: Lidocaine (Lidoderm Patch -) 3 patch TP DAILY [facility] Last Admin: 10/21/19 10:30 Dose: 3 patch Documented by: Miscellaneous (Lidoderm Patch Removal) 1 each MC DAILY@2200 [facility] Last Admin: 10/20/19 21:24 Dose: 1 each Documented by: Nitroglycerin (Nitro-Bid 2% Paste -) 1 inch TD Q6HPO [facility] Last Admin: 10/21/19 12:30 Dose: 1 inch Documented by: Nystatin (Mycostatin Cream -) 1 applic TP Q6HPO [facility] Last Admin: 10/21/19 12:30 Dose: 1 applic Documented by: Pantoprazole Sodium (Protonix -) 40 mg PO DAILY [facility] Last Admin: 10/21/19 10:27 Dose: 40 mg Documented by: Polyethylene Glycol (Miralax (For Daily Use) -) 17 gm PO BID [facility] Last Admin: 10/21/19 10:30 Dose: Not Given Documented by: Selenium Sulfide (Selenium Sulfide 2.25% Shampoo) 1 applic TP DAILY PRN PRN Reason: FOR ITCHING Stop: 10/23/19 08:39 Triamcinolone Acetonide (Aristocort 0.1% Cream -) 1 applic TP DAILY [facility] Last Admin: 10/21/19 10:29 Dose: 1 applic Documented by: Triamcinolone Acetonide (Aristocort 0.1% Lotion -) 1 applic TP BID [facility] Last Admin: 10/21/19 10:29 Dose: 1 applic Documented by: - Objective Vital Signs: Vital Signs Temperature 97.7 F 10/21/19 09:00 Pulse Rate 95 H 10/21/19 09:00 Respiratory Rate 16 10/21/19 09:00 Blood Pressure 132/65 10/21/19 13:00 O2 Sat by Pulse Oximetry (%) 100 10/21/19 09:00 Constitutional: Yes: No Distress Eyes: Yes: Conjunctiva Clear Cardiovascular: Yes: Regular Rate and Rhythm, S1, S2 Respiratory: Yes: Diminished Gastrointestinal: Yes: Normal Bowel Sounds, Soft. No: Tenderness Edema: Yes Integumentary: Yes: Other (+ CONFLUENT ERYTHEMA NECK/ CHEST/ ABDOMEN) Labs: CBC, BMP 10/21/19 06:25 10/21/19 06:25 INR, PTT INR 2.02 (0.83-1.09) H 10/20/19 07:24 Assessment/Plan GENERALIZED RASH ? ETIOLOGY LEUKOCYTOSIS AZOTEMIA ASYMPTOMATIC BACTERURIA NEEDS DERM EVALUATION OBSERVE OFF ANTIBIOTICS NO TREATMENT FOR URINE ISOLATES
[2019-10-21] MEDS: ALBUMIN HUMAN 25% 12.5 GM/50 ML VIAL IVPB SCH ×2 (16:34→21:36)
--- NOTE | 2019-10-21 16:38 | PN ---
Physical Exam: SUBJECTIVE: Patient seen and examined bedside. Still complaining of itching. In no acute distress, no events overnight. OBJECTIVE: Vital Signs Period Temp Pulse Resp BP Sys/Hernandez Pulse Ox Last 24 Hr 97.5 F-98.6 F 87-110 16-20 117-138/57-78 95-100 GENERAL: The patient is awake, alert, and oriented, in no acute distress. LUNGS: Breath sounds equal, BL crackles HEART: Regular rate and rhythm ABDOMEN: Soft, nontender, nondistended. EXTREMITIES: BL + 2 pitting edema on ankles, overall leg edema continuing to improve. Sacral decubitus ulcer stage 2 : no suprapubic tenderness. urine in vaccutainer looks dark but not as red/brown as the day before SKIN: dry flaking skin on palms, arms, scalp and back and erythemaous. Laboratory Results 10/21/19 10/21/19 10/21/19 06:25 06:25 06:27 WBC 20.4 H RBC 2.66 L Hgb 7.9 L Hct 25.9 L MCV 97.1 H MCH 29.6 MCHC 30.5 L RDW 20.4 H Plt Count 151 MPV 9.3 Sodium 136 Potassium 4.5 Chloride 101 Carbon Dioxide 22 Anion Gap 12 BUN 103.0 H Creatinine 2.8 H Est GFR (CKD-EPI)AfAm 16.66 Est GFR (CKD-EPI)NonAf 14.37 POC Glucometer 162 Random Glucose 163 H Calcium 8.0 L Phosphorus 3.7 Magnesium 1.7 L Complement C3 Complement C4 Active Medications Generic Name Dose Route Start Last Admin Trade Name Freq PRN Reason Stop Dose Admin Acetaminophen 650 mg 10/11/19 12:26 10/21/19 00:26 Tylenol - PO 650 mg Q6H PRN Administration PAIN LEVEL 6-10 Albumin Human 25 gm 10/21/19 15:30 Albumin Human 25% IVPB 10/21/19 21:31 Q6H [facility] Apixaban 2.5 mg 10/04/19 22:00 10/21/19 10:27 Eliquis - PO 2.5 mg BID [facility] Administration Bisacodyl 10 mg 10/14/19 13:59 10/15/19 13:05 Dulcolax Suppository - [place] 10 mg PRN PRN Administration CONSTIPATION Camphor/Menthol 1 applic 10/17/19 12:39 Sarna Anti-Itch - TP BID PRN FOR ITCHING Carvedilol 37.5 mg 10/14/19 22:00 10/21/19 10:27 Coreg - PO 37.5 mg BID [facility] Administration Diphenhydramine HCl 12.5 mg 10/21/19 11:01 Benadryl Injection - IVPUSH Q4H PRN FOR ITCHING Docusate Sodium 300 mg 10/01/19 22:00 10/20/19 21:23 Colace - PO 300 mg HS [facility] Administration Furosemide 80 mg 10/20/19 14:00 10/21/19 14:34 Lasix Injection - IVPUSH 80 mg TID [facility] Administration Hydroxyzine Pamoate 25 mg 10/15/19 21:24 10/18/19 18:06 Vistaril - PO 25 mg Q8H PRN Administration FOR ITCHING Insulin Aspart 1 vial 10/01/19 07:00 10/21/19 11:49 Novolog Vial Sliding Scale - SQ 2 units ACHS [facility] Administration Protocol Lactobacillus Acidophilus 1 tab 09/29/19 14:30 10/21/19 10:27 Bacid - PO 1 tab DAILY [facility] Administration Letrozole 2.5 mg 10/01/19 10:00 10/21/19 10:28 Femara - PO 2.5 mg DAILY [facility] Administration Levothyroxine Sodium 100 mcg 10/01/19 07:00 10/21/19 06:23 Synthroid - PO 100 mcg ACBK [facility] Administration Lidocaine 3 patch 10/20/19 10:00 10/21/19 10:30 Lidoderm Patch - TP 3 patch DAILY [facility] Administration Miscellaneous 1 each 10/13/19 22:00 10/20/19 21:24 Lidoderm Patch Removal MC 1 each DAILY@2200 [facility] Administration Nitroglycerin 1 inch 10/03/19 14:26 10/21/19 12:30 Nitro-Bid 2% Paste - TD 1 inch Q6HPO [facility] Administration Nystatin 1 applic 10/18/19 18:00 10/21/19 12:30 Mycostatin Cream - TP 1 applic Q6HPO [facility] Administration Pantoprazole Sodium 40 mg 10/01/19 10:00 10/21/19 10:27 Protonix - PO 40 mg DAILY [facility] Administration Polyethylene Glycol 17 gm 10/01/19 10:00 10/21/19 10:30 Miralax (For Daily Use) - PO Not Given BID [facility] Selenium Sulfide 1 applic 10/16/19 08:39 Selenium Sulfide 2.25% Shampoo TP 10/23/19 08:39 DAILY PRN FOR ITCHING Triamcinolone Acetonide 1 applic 10/18/19 10:00 10/21/19 10:29 Aristocort 0.1% Cream - TP 1 applic DAILY [facility] Administration Triamcinolone Acetonide 1 applic 10/19/19 10:15 10/21/19 10:29 Aristocort 0.1% Lotion - TP 1 applic BID [facility] Administration ASSESSMENT/PLAN: 89F yo female with pmhx of diastolic CHF, a-fib (on Eliquis), CKD, breast cancer s/p mastectomy, myelodysplasia, IDDM type 2, hypothyroidism, HLD, CVA, and GERD presents with b/l leg swelling and nausea for "weeks" and back pain for several days admitted for acute CHF exacerbation. RASH: -Dr. Turk (Derm) saw patient 10/17 and does believes it's more likely a combination of dermatitis/eczema, & petechiae from edema. Does not rec biopsy at this time. Recommended oral steroids to patient but she said patient refused. Triamcinolone lotion to be applied all over body. -Benadryl po q4hr for itching -Consulted Dr. Maria for Rheumatology for possible vasculitis. Rule out paraneoplastic disease. Requested consult to Dr. Baker for skin biopsy. The patient might need to be transferred for management of this problem. - Possible sulfa rash from lasix v angle syndrome from hydralazine, d/c hydralazine, but can not stop lasix - anti-histone ab & LOVELY ordered - started 12.5 IV benedryl q4 hr for itching - gave 40 mg IV methylprednisolone once today Dr. Reynaga hydroxyzine 25mg po Q8h for itching MAURICE on CKD; BUN/Cr continues to improve -serial BMPs to monitor Cr (baseline near 2) today 2.8 -skin flaking may be due to renal disease uremia (xerosis cutis) - Dr. Diaz in Cardio f/u noted patient may be agreeable to HD treatment - UA + culture pending, holding treatment for now as patient is not symptomatic, discuss with Dr. Meraz when cultures are back. - Dr. Sequeira discussed HD therapy with pt again and she says she will agree only if it is "life or " decision hold off aldactone because of rash cont aggressive diuresis watch BUN/Cr because steroids may cause increase gave albumin 25% 25mg x 2 IVPB today Acute on Chronic Diastolic CHF Exacerbation; - Daily weights, I/Os, 2gm Na diet w/ fluid restriction - Patient did not do well on oral lasix >>> switched back to IV - Cont 2.5 L O2 NC - Repeat Echo (10/03) showed LV wnl, EF 55-60%, atria severely dilated, RV borderline in size and fxn, AV sclerotic, MV severe annular calcification, trace MR, mod to sev TR and sev pHTN, possible small pericardial effusion - patient increasingly tachy - increase coreg to 37.5 BID (10/13) Thrombocytopenia and Leukocytosis platelets have been dropping over last few days today Plts up to 84 WBC count also continuously elevating concerned for MDS morphing into Leukemia. Consulted Dr. Reynaga - patient and heme/onc both agree that no bone biopsy should be done - counts have been stable - flow cytometry did not show AML - continue to monitor and treat symptoms - concerned that rash is manifestation of underlying infection - Dr. Turk (Derm) saw patient 10/17 and does believes it's more likely a combination of dermatitis/eczema, & petechiae from edema. Does not rec biopsy at this time. Recommended oral steroids ordered Triamcinolone lotion to be applied all over body. Consulted Dr. Maria for Rheumatology who saw patient yesterday -C3 & C4 ordered and pending -consider biopsy and paraneoplastic syndrome Anemia; likely multi-factorial in setting of CKD, myelodysplasia - Transfusion 1 PRBC on 10/15 - Continue to transfuse PRN to maintain Hgb >7 New 4 cm L Hepatic Lobe lesion; in setting of hx of breast cancer and MDS - Onc consulted- Dr. Sullivan [place] 27-[address] Sullivan could not be reached ([phone]) - Cont home meds: Letrozole 2.5 QD Stage 2 sacral ulcer; not infected -Santyl and bandage -Frequent turning and positioning -Dilaudid 0.5 mg Q6H PRN for pain ESBL UTI; - resolved/ repeat UA on 10/13 negative No urinary symptoms -UCx +ESBL Kleb pneumo; repeat UCx +Group D strep/enterococcus - Per ID, Ertapenem 500 mg QD completed today. Started on ZYVOX 600MG PO BID X 3D completed Hyponatremia; likely 2/2 fluid overload. Resolved. Generalized abdominal pain; 2/2 constipation vs. liver mass -Miralax 17 gm BID for constipation -QTc 484, try to avoid Zofran for nausea/vomiting Hypothyroidism; Cont home meds: Synthroid 100 Prophylaxis -DVT: Cont home Eliquis 2.5 BID - Team spoke to cardiology on regarding patient's kidney function and Eliquis, Cardiology recommended to maintain eliquis as is. -GI: Cont home Protonix 40 FEN On soft diet with thin liquids DISPO: - manager spa will discuss options with patient - Palliative Care Consult f/u (Dr. Macdonald) She would be appropriate for comfort/ hospice care given her multiple comorbidities, metastatic cancer, debilitated state with diastolic CHF and CKD approaching end stage, pressure ulcers. However she does not want hospice/ comfort care at this point. Would continue pain meds, diuretics. She will be appropriate for SNF on palliative care Visit type - Emergency Visit Emergency Visit: Yes ED Registration Date: 09/24/19 Care time: The patient presented to the Emergency Department on the above date and was hospitalized for further evaluation of their emergent condition. - New Patient This patient is new to me today: No - Critical Care Critical Care patient: No - Discharge Referral Referred to [facility] Med P.C.: No ATTENDING PHYSICIAN STATEMENT I saw and evaluated the patient. I reviewed the resident's note and discussed the case with the resident. I agree with the resident's findings and plan as documented. SUBJECTIVE: OBJECTIVE: ASSESSMENT AND PLAN:
--- NOTE | 2019-10-21 17:30 | PN ---
Progress Note (short form) - Note Progress Note: Vascular surgery Pt seen and examined. Consent obtained for skin biopsy Lidocaine 1%- 10 cc injected over right knee. Using a 15 blade two biopsys of the skin taken. Sent down in formalin. No complications. Bactiracin to area daily Slava Baker DO
--- NOTE | 2019-10-21 17:33 | PN ---
Teaching Attending Note Name of Resident: Kylah Denton ATTENDING PHYSICIAN STATEMENT I saw and evaluated the patient. I reviewed the resident's note and discussed the case with the resident. I agree with the resident's findings and plan as documented. SUBJECTIVE: awake, and continues to c/o having generalized itching and pruritus. OBJECTIVE: Vital Signs Temperature 97.7 F 10/21/19 09:00 Pulse Rate 95 H 10/21/19 09:00 Respiratory Rate 16 10/21/19 09:00 Blood Pressure 132/65 10/21/19 13:00 O2 Sat by Pulse Oximetry (%) 100 10/21/19 09:00 PE: as per resident's note maculopapular rash continues with pruritus decubitus ulcer stage 2 : patient refused to check the wound today since having severe pruritis and itchiness CBCD WBC 20.4 K/mm3 (4.0-10.0) H 10/21/19 06:25 RBC 2.66 M/mm3 (3.60-5.2) L 10/21/19 06:25 Hgb 7.9 GM/dL (10.7-15.3) L 10/21/19 06:25 Hct 25.9 % (32.4-45.2) L 10/21/19 06:25 MCV 97.1 fl (80-96) H 10/21/19 06:25 MCHC 30.5 g/dl (32.0-36.0) L 10/21/19 06:25 RDW 20.4 % (11.6-15.6) H 10/21/19 06:25 Plt Count 151 K/MM3 (134-434) 10/21/19 06:25 MPV 9.3 fl (7.5-11.1) 10/21/19 06:25 CMP Sodium 136 mmol/L (136-145) 10/21/19 06:25 Potassium 4.5 mmol/L (3.5-5.1) 10/21/19 06:25 Chloride 101 mmol/L (98-107) 10/21/19 06:25 Carbon Dioxide 22 mmol/L (21-32) 10/21/19 06:25 Anion Gap 12 MMOL/L (8-16) 10/21/19 06:25 BUN 103.0 mg/dL (7-18) H 10/21/19 06:25 Creatinine 2.8 mg/dL (0.55-1.3) H 10/21/19 06:25 Random Glucose 163 mg/dL (74-106) H 10/21/19 06:25 Calcium 8.0 mg/dL (8.5-10.1) L 10/21/19 06:25 Total Bilirubin 0.4 mg/dL (0.2-1) 10/20/19 06:00 AST 19 U/L (15-37) 10/20/19 06:00 ALT 11 U/L (13-61) L 10/20/19 06:00 Alkaline Phosphatase 352 U/L (45-117) H 10/20/19 06:00 Total Protein 6.0 g/dl (6.4-8.2) L 10/20/19 06:00 Albumin 1.8 g/dl (3.4-5.0) L 10/20/19 06:00 CARDIAC ENZYMES Troponin I < 0.02 ng/ml (0.00-0.05) 09/24/19 16:49 Current Medications Generic Name Dose Route Start Last Admin Trade Name Freq PRN Reason Stop Dose Admin Acetaminophen 650 mg 10/11/19 12:26 10/21/19 00:26 Tylenol - PO 650 mg Q6H PRN Administration PAIN LEVEL 6-10 Albumin Human 25 gm 10/21/19 15:30 10/21/19 16:34 Albumin Human 25% IVPB 10/21/19 21:31 25 gm Q6H [facility] Administration Apixaban 2.5 mg 10/04/19 22:00 10/21/19 10:27 Eliquis - PO 2.5 mg BID [facility] Administration Bacitracin 1 applic 10/21/19 17:30 Bacitracin - TP DAILY [facility] Bisacodyl 10 mg 10/14/19 13:59 10/15/19 13:05 Dulcolax Suppository - RI 10 mg PRN PRN Administration CONSTIPATION Camphor/Menthol 1 applic 10/17/19 12:39 Sarna Anti-Itch - TP BID PRN FOR ITCHING Carvedilol 37.5 mg 10/14/19 22:00 10/21/19 10:27 Coreg - PO 37.5 mg BID [facility] Administration Diphenhydramine HCl 12.5 mg 10/21/19 11:01 Benadryl Injection - IVPUSH Q4H PRN FOR ITCHING Docusate Sodium 300 mg 10/01/19 22:00 10/20/19 21:23 Colace - PO 300 mg HS [facility] Administration Furosemide 80 mg 10/20/19 14:00 10/21/19 14:34 Lasix Injection - IVPUSH 80 mg TID [facility] Administration Hydroxyzine Pamoate 25 mg 10/15/19 21:24 10/18/19 18:06 Vistaril - PO 25 mg Q8H PRN Administration FOR ITCHING Insulin Aspart 1 vial 10/01/19 07:00 10/21/19 11:49 Novolog Vial Sliding Scale - SQ 2 units ACHS [facility] Administration Protocol Lactobacillus Acidophilus 1 tab 09/29/19 14:30 10/21/19 10:27 Bacid - PO 1 tab DAILY [facility] Administration Letrozole 2.5 mg 10/01/19 10:00 10/21/19 10:28 Femara - PO 2.5 mg DAILY [facility] Administration Levothyroxine Sodium 100 mcg 10/01/19 07:00 10/21/19 06:23 Synthroid - PO 100 mcg ACBK [facility] Administration Lidocaine 3 patch 10/20/19 10:00 10/21/19 10:30 Lidoderm Patch - TP 3 patch DAILY [facility] Administration Miscellaneous 1 each 10/13/19 22:00 10/20/19 21:24 Lidoderm Patch Removal MC 1 each DAILY@2200 [facility] Administration Nitroglycerin 1 inch 10/03/19 14:26 10/21/19 12:30 Nitro-Bid 2% Paste - TD 1 inch Q6HPO [facility] Administration Nystatin 1 applic 10/18/19 18:00 10/21/19 12:30 Mycostatin Cream - TP 1 applic Q6HPO [facility] Administration Pantoprazole Sodium 40 mg 10/01/19 10:00 10/21/19 10:27 Protonix - PO 40 mg DAILY [facility] Administration Polyethylene Glycol 17 gm 10/01/19 10:00 10/21/19 10:30 Miralax (For Daily Use) - PO Not Given BID [facility] Selenium Sulfide 1 applic 10/16/19 08:39 Selenium Sulfide 2.25% Shampoo TP 10/23/19 08:39 DAILY PRN FOR ITCHING Triamcinolone Acetonide 1 applic 10/18/19 10:00 10/21/19 10:29 Aristocort 0.1% Cream - TP 1 applic DAILY [facility] Administration Triamcinolone Acetonide 1 applic 10/19/19 10:15 10/21/19 10:29 Aristocort 0.1% Lotion - TP 1 applic BID [facility] Administration Home Medications Medication Instructions Recorded RX: Calcium Carbonate/Vitamin D3 1 each PO BID 06/23/18 [Calcium 500-Vit D3 400 Tablet] RX: Carvedilol [Coreg -] 25 mg PO BID 06/23/18 RX: Polyethylene Glycol 3350 17 gm PO DAILY PRN bottle 04/27/19 [Miralax 119 gm Btl -] Amlodipine Besylate [Norvasc -] 5 mg PO DAILY 08/12/19 Apixaban [Eliquis] 2.5 mg PO BID 08/12/19 Furosemide [Lasix -] 80 mg PO BID 08/12/19 Isosorbide Mononitrate [Imdur -] 60 mg PO DAILY 08/12/19 RX: hydrALAZINE HCL [Apresoline -] 10 mg PO TID 08/12/19 Sitagliptin Phosphate [Januvia] 25 mg PO DAILY 08/12/19 Insulin Glargine,Hum.rec.anlog 25 unit SQ DAILY 09/24/19 [Lantus] Insulin Lispro [Humalog] 100 unit SQ PRN 09/24/19 Letrozole [Femara] 2.5 mg PO DAILY 09/24/19 Pantoprazole Sodium [Protonix] 40 mg PO DAILY 09/24/19 RX: Omeprazole 20 mg PO DAILY 09/24/19 RX: Simethicone 125 mg PO Q4H PRN 09/24/19 Multivitamin [One-Daily 1 each PO DAILY 09/25/19 Multi-Vitamin] Ondansetron [Zofran -] 4 mg PO Q4H PRN 09/25/19 Oxycodone HCl/Acetaminophen 1 tab PO Q12H PRN 09/25/19 [Percocet 5-325 mg Tablet] RX: Diclofenac Sodium 2 gm TP DAILY 09/26/19 Isosorbide Mononitrate [Isosorbide 60 mg PO DAILY 10/06/19 Mononitrate ER] RX: Tramadol HCl 1 tab TID 07/01/20 Microbiology 10/19/19 07:20 Urine - Urine Clean Catch Urine Culture - Preliminary Klebsiella Pneumoniae - Esbl Group D Strep Or Entero Coccus 10/16/19 08:55 Blood - Peripheral Venous Blood Culture - Final NO GROWTH AFTER 5 DAYS INCUBATION 10/16/19 08:50 Blood - Peripheral Venous Blood Culture - Final NO GROWTH AFTER 5 DAYS INCUBATION 10/03/19 09:21 Urine - Urine Clean Catch Urine Culture - Final Vr Ec Faecium 09/24/19 20:45 Urine - Urine Clean Catch Urine Culture - Final Klebsiella Pneumoniae - Esbl Laboratory Tests 09/24/19 09/24/19 10/19/19 16:49 20:45 18:46 B-Natriuretic Peptide 96840.9 H Ur Leukocyte Esterase 2+ H Urine WBC (Auto) 1325 LOVELY Screen c-ANCA Proteinase 3 (PR3) p-ANCA Atypical p-ANCA Myeloperoxidase Ab Double Strand DNA Ab Histone Antibodies Glomerular Base Memb Ab Complement C3 118 Complement C4 16 10/20/19 10/21/19 08:24 06:25 B-Natriuretic Peptide Ur Leukocyte Esterase Urine WBC (Auto) LOVELY Screen Pending c-ANCA Pending Proteinase 3 (PR3) Pending p-ANCA Pending Atypical p-ANCA Pending Myeloperoxidase Ab Pending Double Strand DNA Ab Pending Histone Antibodies Pending Glomerular Base Memb Ab Pending Complement C3 Complement C4 ASSESSMENT AND PLAN: This patient is 89yof with Pmhx of Hx of diastolic CHF, a-fib (on Eliquis), CKD, breast cancer s/p mastectomy, myelodysplasia, IDDM type 2, hypothyroidism, HLD, CVA, and GERD who presented with SOB and LE edema and was diagnosed with D. CHF exacerbation. # aCUTE Maculopapular rash : WILL DC Hydralazine, we cannt dc lasix since patient has swelling of lower extremities , discussed with nephro yesica Snow be dc'd the lasix at this time, will add IV benadryl 12.5mg q4h and one dose of solu medrol 40mg IV and reevaluate. w/u is pending. #Acute on chronic diastolic heart failure : improved #ESBL producing Klebsiella complicated UTI/pyelonephritis : treated , as per ID to dc IV antibiotic and observe off antibiotics. #MAURICE on CKD : improved #Liver mass #retroperitoneal LAP #b/l adrenal nodules #h/o MDS #chronic normocytic anemia #persistent leukocytosis #Hx of prolonged QTC #Hyponatremia #high AG metabolic acidosis :resolved #prolonged QTC #Hx of A fib #Stage 2 sacral decubiti DVT Px; Eliquis will dc hydralazine, possible rash due to hydralazine vs lasix ordered histone and LOVELY , Dr Maria on the case as per nephro caanot stop lasix for now. continue current care
[2019-10-21] MEDS: BACITRACIN 15 GM TUBE TOPICAL OINTMENT TP SCH (17:55)
[2019-10-21] MEDS: DOCUSATE SODIUM 100 MG CAPSULE (FP) PO SCH (21:39)
[2019-10-21] MEDS: LIDOCAINE PATCH REMOVAL MC SCH (21:39)
[2019-10-22 01:36] LABS: EPI CELLS 2 /uL (0-25.1); HYALINE CASTS 1 /uL (0-3.1); URINE APPEARANCE CLOUDY; URINE BILIRUBIN NEGATIVE (NEGATIVE); URINE COLOR YELLOW; URINE GLUCOSE (UA) NEGATIVE (NEGATIVE); URINE KETONE NEGATIVE (NEGATIVE); URINE LEUK ESTERASE 2+ (NEGATIVE); URINE NITRITE NEGATIVE (NEGATIVE); URINE PROTEIN 2+ (NEGATIVE); URINE RBC 398 /uL (0-23.9); URINE UROBILINOGEN 0.2 mg/dL (0.2-1.0); URINE WBC 420 /uL (0-25.8)
[2019-10-22] MEDS: NYSTATIN 100,000 UNIT/GM TOPICAL CREAM 15 GM TUBE TP SCH ×3 (06:28→17:34)
[2019-10-22] MEDS: LEVOTHYROXINE NA 100 MCG TABLET (FP) PO SCH (06:28)
[2019-10-22] MEDS: NITROGLYCERIN 2% OINTMENT - 1GM PACKET TD SCH ×3 (06:28→17:34)
[2019-10-22] MEDS: FUROSEMIDE 40 MG/4 ML INJECTABLE VIAL IVPUSH SCH ×3 (06:28→22:16)
[2019-10-22] MEDS: INSULIN SLIDING SCALE (NOVOLOG) 1 VIAL SQ SCH ×4 (06:35→22:44)
[2019-10-22 08:34] LABS: HEMATOCRIT 25.5 % (32.4-45.2); MCH 30.6 pg (25.7-33.7); MCHC 31.5 g/dl (32.0-36.0); MEAN CELL VOLUME 97.4 fl (80-96); MEAN PLT VOLUME 9.5 fl (7.5-11.1); PLATELET COUNT 141 K/MM3 (134-434); RBC 2.61 M/mm3 (3.60-5.2); RDW 20.7 % (11.6-15.6); WHITE BLOOD COUNT 17.2 K/mm3 (4.0-10.0)
[2019-10-22 09:03] LABS: POTASSIUM 4.3 mmol/L (3.5-5.1)
[2019-10-22 09:14] LABS: ALBUMIN 2.2 g/dl (3.4-5.0); BILIRUBIN,TOTAL 0.4 mg/dL (0.2-1); BLOOD UREA NITROGEN 99.1 mg/dL (7-18); CALCIUM 8.5 mg/dL (8.5-10.1); CREATININE 2.8 mg/dL (0.55-1.3); TOT PROT 6.3 g/dl (6.4-8.2)
[2019-10-22] MEDS ORDERED: PT OWN MED DRAWER 7, Y5N ONE ×3 (09:15→21:02)
[2019-10-22 09:34] LABS: PHOSPHOROUS 4.3 mg/dL (2.5-4.9)
[2019-10-22] MEDS: LIDOCAINE 5% TOPICAL PATCH TP SCH ×2 (10:12→10:45)
[2019-10-22] MEDS: BACITRACIN 15 GM TUBE TOPICAL OINTMENT TP SCH (10:45)
[2019-10-22] MEDS: LACTOBACILLUS ACIDOPHILUS 1 TABLET PO SCH (10:45)
[2019-10-22] MEDS: CARVEDILOL 12.5 MG TABLET (FP) PO SCH ×2 (10:45→22:16)
[2019-10-22] MEDS: PANTOPRAZOLE 40 MG TABLET PO SCH (10:45)
[2019-10-22] MEDS: APIXABAN 2.5 MG TABLET PO SCH ×2 (10:45→22:26)
[2019-10-22] MEDS: POLYETHYLENE GLYCOL 3350 119 GM BTL PO SCH ×2 (10:47→22:17)
[2019-10-22] MEDS: LETROZOLE 2.5 MG TABLET (FP) PO SCH (10:48)
[2019-10-22] MEDS: TRIAMCINOLONE ACET 0.1% 60 ML LOTION TP SCH ×2 (10:49→22:17)
[2019-10-22] MEDS: TRIAMCINOLONE ACET 0.1% CREAM 15 GM TUBE TP SCH (10:49)
--- NOTE | 2019-10-22 11:03 | PN ---
Progress Note, Physician Chief Complaint: no cp, palps, dizziness - Current Medication List Current Medications: Active Medications Acetaminophen (Tylenol -) 650 mg PO Q6H PRN PRN Reason: PAIN LEVEL 6-10 Last Admin: 10/21/19 00:26 Dose: 650 mg Documented by: Apixaban (Eliquis -) 2.5 mg PO BID [facility] Last Admin: 10/21/19 21:37 Dose: 2.5 mg Documented by: Bacitracin (Bacitracin -) 1 applic TP DAILY [facility] Last Admin: 10/21/19 17:55 Dose: 1 applic Documented by: Bisacodyl (Dulcolax Suppository -) 10 mg NM PRN PRN PRN Reason: CONSTIPATION Last Admin: 10/15/19 13:05 Dose: 10 mg Documented by: Camphor/Menthol (Sarna Anti-Itch -) 1 applic TP BID PRN PRN Reason: FOR ITCHING Carvedilol (Coreg -) 37.5 mg PO BID [facility] Last Admin: 10/21/19 21:37 Dose: 37.5 mg Documented by: Diphenhydramine HCl (Benadryl Injection -) 12.5 mg IVPUSH Q4H PRN PRN Reason: FOR ITCHING Last Admin: 10/21/19 23:24 Dose: 12.5 mg Documented by: Docusate Sodium (Colace -) 300 mg PO HS [facility] Last Admin: 10/21/19 21:39 Dose: Not Given Documented by: Furosemide (Lasix Injection -) 80 mg IVPUSH TID [facility] Last Admin: 10/22/19 06:28 Dose: 80 mg Documented by: Hydroxyzine Pamoate (Vistaril -) 25 mg PO Q8H PRN PRN Reason: FOR ITCHING Last Admin: 10/18/19 18:06 Dose: 25 mg Documented by: Insulin Aspart (Novolog Vial Sliding Scale -) 1 vial SQ ACHS [facility]; Protocol Last Admin: 10/22/19 06:35 Dose: 6 units Documented by: Lactobacillus Acidophilus (Bacid -) 1 tab PO DAILY [facility] Last Admin: 10/21/19 10:27 Dose: 1 tab Documented by: Letrozole (Femara -) 2.5 mg PO DAILY [facility] Last Admin: 10/21/19 10:28 Dose: 2.5 mg Documented by: Levothyroxine Sodium (Synthroid -) 100 mcg PO ACBK [facility] Last Admin: 10/22/19 06:28 Dose: 100 mcg Documented by: Lidocaine (Lidoderm Patch -) 3 patch TP DAILY [facility] Last Admin: 10/21/19 10:30 Dose: 3 patch Documented by: Miscellaneous (Lidoderm Patch Removal) 1 each MC DAILY@2200 [facility] Last Admin: 10/21/19 21:39 Dose: 1 each Documented by: Nitroglycerin (Nitro-Bid 2% Paste -) 1 inch TD Q6HPO [facility] Last Admin: 10/22/19 06:28 Dose: 1 inch Documented by: Nystatin (Mycostatin Cream -) 1 applic TP Q6HPO [facility] Last Admin: 10/22/19 06:28 Dose: 1 applic Documented by: Pantoprazole Sodium (Protonix -) 40 mg PO DAILY [facility] Last Admin: 10/21/19 10:27 Dose: 40 mg Documented by: Polyethylene Glycol (Miralax (For Daily Use) -) 17 gm PO BID [facility] Last Admin: 10/21/19 21:39 Dose: Not Given Documented by: Selenium Sulfide (Selenium Sulfide 2.25% Shampoo) 1 applic TP DAILY PRN PRN Reason: FOR ITCHING Stop: 10/23/19 08:39 Triamcinolone Acetonide (Aristocort 0.1% Cream -) 1 applic TP DAILY [facility] Last Admin: 10/21/19 10:29 Dose: 1 applic Documented by: Triamcinolone Acetonide (Aristocort 0.1% Lotion -) 1 applic TP BID [facility] Last Admin: 10/21/19 21:38 Dose: 1 applic Documented by: - Objective Vital Signs: Vital Signs Temperature 97.7 F 10/21/19 20:02 Pulse Rate 93 H 10/22/19 05:44 Respiratory Rate 20 10/22/19 00:34 Blood Pressure 126/63 10/22/19 05:44 O2 Sat by Pulse Oximetry (%) 100 10/22/19 00:34 Constitutional: Yes: No Distress Cardiovascular: Yes: Pulse Irregular Respiratory: Yes: Other (clear anteriorly and laterally) Gastrointestinal: Yes: Soft Edema: Yes Edema: LLE: 3+, RLE: 3+ Integumentary: Yes: Rash Neurological: Yes: Alert, Oriented Labs: CBC, BMP 10/22/19 07:13 10/22/19 07:13 INR, PTT INR 2.02 (0.83-1.09) H 10/20/19 07:24 Assessment/Plan Assessment/Plan echo 03/2019 nl LV function, mild MR, mild TR, PASP at least 49 mmHg IMP/REC: Acute diastolic heart failure exacerbation: - recent echo nl LV function - no signs acs - holding aldactone - was on iv lasix but no sig improvement and cr worsened. It was rec'd that pt have HD but she declined so transitioned to po lasix, but now with vol build up and back on iv lasix. Monitor cr, may again need to consider HD vs pall care. - cont nitrates for cardiorenal syndrome HTN: - bp stable - cont current meds crow on CKD: - Baseline creat from last admission is 2-2.5, elevated now, likely cardiorenal - renal following PAF: -cont coreg for rate control -cont eliquis low dose (age, creatinine) liver mass: -heme/onc following Skin rash: -as per primary team
[2019-10-22] MEDS ORDERED: INSULIN (NOVOLOG) ASPART 100 UNITS/ML 10ML VIAL ONE ×3 (13:05→21:00)
--- NOTE | 2019-10-22 14:31 | PN ---
Progress Note, Physician History of Present Illness: Pt seen and examined at bedside. No great change in status. - Current Medication List Current Medications: Active Medications Acetaminophen (Tylenol -) 650 mg PO Q6H PRN PRN Reason: PAIN LEVEL 6-10 Last Admin: 10/21/19 00:26 Dose: 650 mg Documented by: Albumin Human (Albumin Human 25%) 25 gm IVPB Q6H [facility] Stop: 10/22/19 20:31 Apixaban (Eliquis -) 2.5 mg PO BID [facility] Last Admin: 10/22/19 10:45 Dose: 2.5 mg Documented by: Bacitracin (Bacitracin -) 1 applic TP DAILY [facility] Last Admin: 10/22/19 10:45 Dose: 1 applic Documented by: Bisacodyl (Dulcolax Suppository -) 10 mg AR PRN PRN PRN Reason: CONSTIPATION Last Admin: 10/15/19 13:05 Dose: 10 mg Documented by: Camphor/Menthol (Sarna Anti-Itch -) 1 applic TP BID PRN PRN Reason: FOR ITCHING Carvedilol (Coreg -) 37.5 mg PO BID [facility] Last Admin: 10/22/19 10:45 Dose: 37.5 mg Documented by: Diphenhydramine HCl (Benadryl Injection -) 12.5 mg IVPUSH Q4H PRN PRN Reason: FOR ITCHING Last Admin: 10/22/19 10:56 Dose: 12.5 mg Documented by: Docusate Sodium (Colace -) 300 mg PO HS [facility] Last Admin: 10/21/19 21:39 Dose: Not Given Documented by: Furosemide (Lasix Injection -) 80 mg IVPUSH TID [facility] Last Admin: 10/22/19 13:07 Dose: 80 mg Documented by: Hydroxyzine Pamoate (Vistaril -) 25 mg PO Q8H PRN PRN Reason: FOR ITCHING Last Admin: 10/18/19 18:06 Dose: 25 mg Documented by: Insulin Aspart (Novolog Vial Sliding Scale -) 1 vial SQ ACHS [facility]; Protocol Last Admin: 10/22/19 13:02 Dose: 4 units Documented by: Lactobacillus Acidophilus (Bacid -) 1 tab PO DAILY [facility] Last Admin: 10/22/19 10:45 Dose: 1 tab Documented by: Letrozole (Femara -) 2.5 mg PO DAILY [facility] Last Admin: 10/22/19 10:48 Dose: 2.5 mg Documented by: Levothyroxine Sodium (Synthroid -) 100 mcg PO ACBK [facility] Last Admin: 10/22/19 06:28 Dose: 100 mcg Documented by: Lidocaine (Lidoderm Patch -) 3 patch TP DAILY [facility] Last Admin: 10/22/19 10:45 Dose: 3 patch Documented by: Miscellaneous (Lidoderm Patch Removal) 1 each MC DAILY@2200 [facility] Last Admin: 10/21/19 21:39 Dose: 1 each Documented by: Nitroglycerin (Nitro-Bid 2% Paste -) 1 inch TD Q6HPO [facility] Last Admin: 10/22/19 12:52 Dose: 1 inch Documented by: Nystatin (Mycostatin Cream -) 1 applic TP Q6HPO [facility] Last Admin: 10/22/19 12:52 Dose: 1 applic Documented by: Pantoprazole Sodium (Protonix -) 40 mg PO DAILY [facility] Last Admin: 10/22/19 10:45 Dose: 40 mg Documented by: Polyethylene Glycol (Miralax (For Daily Use) -) 17 gm PO BID [facility] Last Admin: 10/22/19 10:47 Dose: Not Given Documented by: Selenium Sulfide (Selenium Sulfide 2.25% Shampoo) 1 applic TP DAILY PRN PRN Reason: FOR ITCHING Stop: 10/23/19 08:39 Triamcinolone Acetonide (Aristocort 0.1% Cream -) 1 applic TP DAILY [facility] Last Admin: 10/22/19 10:49 Dose: 1 applic Documented by: Triamcinolone Acetonide (Aristocort 0.1% Lotion -) 1 applic TP BID [facility] Last Admin: 10/22/19 10:49 Dose: 1 applic Documented by: - Objective Vital Signs: Vital Signs Temperature 97.4 F L 10/22/19 10:00 Pulse Rate 83 10/22/19 10:00 Respiratory Rate 14 10/22/19 10:00 Blood Pressure 133/66 10/22/19 10:00 O2 Sat by Pulse Oximetry (%) 100 10/22/19 10:00 Constitutional: Yes: Calm Eyes: Yes: Conjunctiva Clear HENT: Yes: Atraumatic Cardiovascular: Yes: S1, S2 Respiratory: Yes: On Nasal O2 Gastrointestinal: Yes: Normal Bowel Sounds, Soft Genitourinary: Yes: WNL Musculoskeletal: Yes: Muscle Weakness Edema: Yes Edema: LLE: 2+, RLE: 2+ Integumentary: Yes: Rash Neurological: Yes: Oriented Psychiatric: Yes: Oriented Labs: CBC, BMP 10/22/19 07:13 10/22/19 07:13 INR, PTT INR 2.02 (0.83-1.09) H 10/20/19 07:24 Assessment/Plan Current Medications Generic Name Dose Route Start Last Admin Trade Name Freq PRN Reason Stop Dose Admin Acetaminophen 650 mg 10/11/19 12:26 10/21/19 00:26 Tylenol - PO 650 mg Q6H PRN Administration PAIN LEVEL 6-10 Albumin Human 25 gm 10/22/19 14:30 Albumin Human 25% IVPB 10/22/19 20:31 Q6H [facility] Apixaban 2.5 mg 10/04/19 22:00 10/22/19 10:45 Eliquis - PO 2.5 mg BID [facility] Administration Bacitracin 1 applic 10/21/19 17:30 10/22/19 10:45 Bacitracin - TP 1 applic DAILY [facility] Administration Bisacodyl 10 mg 10/14/19 13:59 10/15/19 13:05 Dulcolax Suppository - AR 10 mg PRN PRN Administration CONSTIPATION Camphor/Menthol 1 applic 10/17/19 12:39 Sarna Anti-Itch - TP BID PRN FOR ITCHING Carvedilol 37.5 mg 10/14/19 22:00 10/22/19 10:45 Coreg - PO 37.5 mg BID [facility] Administration Diphenhydramine HCl 12.5 mg 10/21/19 11:01 10/22/19 10:56 Benadryl Injection - IVPUSH 12.5 mg Q4H PRN Administration FOR ITCHING Docusate Sodium 300 mg 10/01/19 22:00 10/21/19 21:39 Colace - PO Not Given HS [facility] Furosemide 80 mg 10/20/19 14:00 10/22/19 13:07 Lasix Injection - IVPUSH 80 mg TID [facility] Administration Hydroxyzine Pamoate 25 mg 10/15/19 21:24 10/18/19 18:06 Vistaril - PO 25 mg Q8H PRN Administration FOR ITCHING Insulin Aspart 1 vial 10/01/19 07:00 10/22/19 13:02 Novolog Vial Sliding Scale - SQ 4 units ACHS [facility] Administration Protocol Lactobacillus Acidophilus 1 tab 09/29/19 14:30 10/22/19 10:45 Bacid - PO 1 tab DAILY [facility] Administration Letrozole 2.5 mg 10/01/19 10:00 10/22/19 10:48 Femara - PO 2.5 mg DAILY [facility] Administration Levothyroxine Sodium 100 mcg 10/01/19 07:00 10/22/19 06:28 Synthroid - PO 100 mcg ACBK [facility] Administration Lidocaine 3 patch 10/20/19 10:00 10/22/19 10:45 Lidoderm Patch - TP 3 patch DAILY [facility] Administration Miscellaneous 1 each 10/13/19 22:00 10/21/19 21:39 Lidoderm Patch Removal MC 1 each DAILY@2200 [facility] Administration Nitroglycerin 1 inch 10/03/19 14:26 10/22/19 12:52 Nitro-Bid 2% Paste - TD 1 inch Q6HPO [facility] Administration Nystatin 1 applic 10/18/19 18:00 10/22/19 12:52 Mycostatin Cream - TP 1 applic Q6HPO [facility] Administration Pantoprazole Sodium 40 mg 10/01/19 10:00 10/22/19 10:45 Protonix - PO 40 mg DAILY [facility] Administration Polyethylene Glycol 17 gm 10/01/19 10:00 10/22/19 10:47 Miralax (For Daily Use) - PO Not Given BID [facility] Selenium Sulfide 1 applic 10/16/19 08:39 Selenium Sulfide 2.25% Shampoo TP 10/23/19 08:39 DAILY PRN FOR ITCHING Triamcinolone Acetonide 1 applic 10/18/19 10:00 10/22/19 10:49 Aristocort 0.1% Cream - TP 1 applic DAILY [facility] Administration Triamcinolone Acetonide 1 applic 10/19/19 10:15 10/22/19 10:49 Aristocort 0.1% Lotion - TP 1 applic BID [facility] Administration Impression 1. proteinuria 2. hypothyroid 3. HTN 4. DM 5. fluid overload 6. breast cancer 7. anemia 8. CKD 9. CHF 10. hyponatremia 11. hypokalemia 12. MAURICE Plan - cont lasix - will give albumin - check weights - if no response by Friday she says that she will agree to dialysis trial - monitor lytes - will hold off aldactone as she has a rash - cont aggressive diuresis - discussed with cardio - will follow
[2019-10-22] MEDS: ALBUMIN HUMAN 25% 12.5 GM/50 ML VIAL IVPB SCH ×2 (16:20→22:16)
--- NOTE | 2019-10-22 18:00 | PN ---
Teaching Attending Note Name of Resident: Kylah Denton ATTENDING PHYSICIAN STATEMENT I saw and evaluated the patient. I reviewed the resident's note and discussed the case with the resident. I agree with the resident's findings and plan as documented. SUBJECTIVE: Patient is feeling better on Benadryl OBJECTIVE: Vital Signs Temperature 97.3 F L 10/22/19 16:59 Pulse Rate 97 H 10/22/19 16:59 Respiratory Rate 16 10/22/19 16:59 Blood Pressure 127/65 10/22/19 16:59 O2 Sat by Pulse Oximetry (%) 97 10/22/19 16:59 PE: per resident's note decubitus ulcer stage 2 macupapular rash all over the body continues CBCD WBC 17.2 K/mm3 (4.0-10.0) H 10/22/19 07:13 RBC 2.61 M/mm3 (3.60-5.2) L 10/22/19 07:13 Hgb 8.0 GM/dL (10.7-15.3) L 10/22/19 07:13 Hct 25.5 % (32.4-45.2) L 10/22/19 07:13 MCV 97.4 fl (80-96) H 10/22/19 07:13 MCHC 31.5 g/dl (32.0-36.0) L 10/22/19 07:13 RDW 20.7 % (11.6-15.6) H 10/22/19 07:13 Plt Count 141 K/MM3 (134-434) 10/22/19 07:13 MPV 9.5 fl (7.5-11.1) 10/22/19 07:13 CMP Sodium 135 mmol/L (136-145) L 10/22/19 07:13 Potassium 4.3 mmol/L (3.5-5.1) 10/22/19 07:13 Chloride 101 mmol/L (98-107) 10/22/19 07:13 Carbon Dioxide 21 mmol/L (21-32) 10/22/19 07:13 Anion Gap 14 MMOL/L (8-16) 10/22/19 07:13 BUN 99.1 mg/dL (7-18) H 10/22/19 07:13 Creatinine 2.8 mg/dL (0.55-1.3) H 10/22/19 07:13 Random Glucose 277 mg/dL (74-106) H 10/22/19 07:13 Calcium 8.5 mg/dL (8.5-10.1) 10/22/19 07:13 Total Bilirubin 0.4 mg/dL (0.2-1) 10/22/19 07:13 AST 16 U/L (15-37) 10/22/19 07:13 ALT 12 U/L (13-61) L 10/22/19 07:13 Alkaline Phosphatase 401 U/L (45-117) H 10/22/19 07:13 Total Protein 6.3 g/dl (6.4-8.2) L 10/22/19 07:13 Albumin 2.2 g/dl (3.4-5.0) L 10/22/19 07:13 CARDIAC ENZYMES Troponin I < 0.02 ng/ml (0.00-0.05) 09/24/19 16:49 Microbiology 10/19/19 07:20 Urine - Urine Clean Catch Urine Culture - Preliminary Klebsiella Pneumoniae - Esbl Group D Strep Or Entero Coccus 10/16/19 08:55 Blood - Peripheral Venous Blood Culture - Final NO GROWTH AFTER 5 DAYS INCUBATION 10/16/19 08:50 Blood - Peripheral Venous Blood Culture - Final NO GROWTH AFTER 5 DAYS INCUBATION 10/03/19 09:21 Urine - Urine Clean Catch Urine Culture - Final Vr Ec Faecium 09/24/19 20:45 Urine - Urine Clean Catch Urine Culture - Final Klebsiella Pneumoniae - Esbl ASSESSMENT AND PLAN: This patient is 89yof with Pmhx of Hx of diastolic CHF, a-fib (on Eliquis), CKD, breast cancer s/p mastectomy, myelodysplasia, IDDM type 2, hypothyroidism, HLD, CVA, and GERD who presented with SOB and LE edema and was diagnosed with D. CHF exacerbation. # Acute Maculopapular rash : WILL DC Hydralazine, we natalia't dc lasix since patient has swelling of lower extremities , discussed with nephro dr Saldivar , natalia't be dc'd the lasix at this time, will add IV benadryl 12.5mg q4h and one dose of solu medrol 40mg IV and reevaluate. w/u is pending. #Acute on chronic diastolic heart failure : improved #ESBL producing Klebsiella complicated UTI/pyelonephritis : treated , as per ID to dc IV antibiotic and observe off antibiotics. #MAURICE on CKD : improved #Liver mass #retroperitoneal LAP #b/l adrenal nodules #h/o MDS #chronic normocytic anemia #persistent leukocytosis #Hx of prolonged QTC #Hyponatremia #high AG metabolic acidosis :resolved #prolonged QTC #Hx of A fib #Stage 2 sacral decubiti DVT Px; Eliquis will dc hydralazine, possible rash due to hydralazine vs lasix ordered histone and Dr Crow MURRY on the case as per nephro caanot stop lasix for now. continue current care
--- NOTE | 2019-10-22 19:52 | PN ---
Physical Exam: SUBJECTIVE: Patient seen and examined resting comfortably. Said she feels slightly less itchy today. No events overnight. OBJECTIVE: Vital Signs Period Temp Pulse Resp BP Sys/Hernandez Pulse Ox Last 24 Hr 97.3 F-98.0 F 83-100 14-20 121-149/63-73 95-100 GENERAL: The patient is awake, alert, and oriented, in no acute distress. LUNGS: Breath sounds equal, BL crackles HEART: Regular rate and rhythm ABDOMEN: Soft, nontender, nondistended. EXTREMITIES: BL + 2 pitting edema on ankles,edema slightly increased since yesterday. Sacral decubitus ulcer stage 2 SKIN: Patient appears very erythematous with new rash around eyes and checks. New bright red petechiae on bottoms of her feet. Laboratory Results - last 24 hr 10/20/19 10/21/19 10/21/19 08:24 21:54 22:15 WBC RBC Hgb Hct MCV MCH MCHC RDW Plt Count MPV Sodium Potassium Chloride Carbon Dioxide Anion Gap BUN Creatinine Est GFR (CKD-EPI)AfAm Est GFR (CKD-EPI)NonAf POC Glucometer 288 Random Glucose Calcium Phosphorus Magnesium Total Bilirubin AST ALT Alkaline Phosphatase Total Protein Albumin Urine Color Yellow Urine Appearance Cloudy Urine pH 6.0 Ur Specific [place] 1.012 Urine Protein 2+ H Urine Glucose (UA) Negative Urine Ketones Negative Urine Blood 3+ H Urine Nitrite Negative Urine Bilirubin Negative Urine Urobilinogen 0.2 Ur Leukocyte Esterase 2+ H Urine WBC (Auto) 420 Urine RBC (Auto) 398 Urine Casts (Auto) 1 U Epithel Cells (Auto) 2 Urine Bacteria (Auto) >10,000 Ur Random Creatinine U Random Total Protein Protein/Creatinin Ratio Double Strand DNA Ab 1 10/21/19 10/22/19 10/22/19 22:15 06:31 07:13 WBC RBC Hgb Hct MCV MCH MCHC RDW Plt Count MPV Sodium 135 L Potassium 4.3 Chloride 101 Carbon Dioxide 21 Anion Gap 14 BUN 99.1 H Creatinine 2.8 H Est GFR (CKD-EPI)AfAm 16.66 Est GFR (CKD-EPI)NonAf 14.37 POC Glucometer 266 Random Glucose 277 H Calcium 8.5 Phosphorus 4.3 Magnesium 2.0 Total Bilirubin 0.4 AST 16 ALT 12 L Alkaline Phosphatase 401 H Total Protein 6.3 L Albumin 2.2 L Urine Color Urine Appearance Urine pH Ur Specific [place] Urine Protein Urine Glucose (UA) Urine Ketones Urine Blood Urine Nitrite Urine Bilirubin Urine Urobilinogen Ur Leukocyte Esterase Urine WBC (Auto) Urine RBC (Auto) Urine Casts (Auto) U Epithel Cells (Auto) Urine Bacteria (Auto) Ur Random Creatinine 35.0 U Random Total Protein 157.2 H Protein/Creatinin Ratio 4.5 Double Strand DNA Ab 10/22/19 10/22/19 10/22/19 07:13 11:56 16:46 WBC 17.2 H RBC 2.61 L Hgb 8.0 L Hct 25.5 L MCV 97.4 H MCH 30.6 MCHC 31.5 L RDW 20.7 H Plt Count 141 MPV 9.5 Sodium Potassium Chloride Carbon Dioxide Anion Gap BUN Creatinine Est GFR (CKD-EPI)AfAm Est GFR (CKD-EPI)NonAf POC Glucometer 217 237 Random Glucose Calcium Phosphorus Magnesium Total Bilirubin AST ALT Alkaline Phosphatase Total Protein Albumin Urine Color Urine Appearance Urine pH Ur Specific [place] Urine Protein Urine Glucose (UA) Urine Ketones Urine Blood Urine Nitrite Urine Bilirubin Urine Urobilinogen Ur Leukocyte Esterase Urine WBC (Auto) Urine RBC (Auto) Urine Casts (Auto) U Epithel Cells (Auto) Urine Bacteria (Auto) Ur Random Creatinine U Random Total Protein Protein/Creatinin Ratio Double Strand DNA Ab Active Medications Generic Name Dose Route Start Last Admin Trade Name Freq PRN Reason Stop Dose Admin Acetaminophen 650 mg 10/11/19 12:26 10/21/19 00:26 Tylenol - PO 650 mg Q6H PRN Administration PAIN LEVEL 6-10 Albumin Human 25 gm 10/22/19 15:00 10/22/19 16:20 Albumin Human 25% IVPB 10/22/19 21:01 25 gm Q6H AMRIT Administration Apixaban 2.5 mg 10/04/19 22:00 10/22/19 10:45 Eliquis - PO 2.5 mg BID AMRIT Administration Bacitracin 1 applic 10/21/19 17:30 10/22/19 10:45 Bacitracin - TP 1 applic DAILY AMRIT Administration Bisacodyl 10 mg 10/14/19 13:59 10/15/19 13:05 Dulcolax Suppository - AL 10 mg PRN PRN Administration CONSTIPATION Camphor/Menthol 1 applic 10/17/19 12:39 Sarna Anti-Itch - TP BID PRN FOR ITCHING Carvedilol 37.5 mg 10/14/19 22:00 10/22/19 10:45 Coreg - PO 37.5 mg BID AMRIT Administration Diphenhydramine HCl 12.5 mg 10/21/19 11:01 10/22/19 17:33 Benadryl Injection - IVPUSH 12.5 mg Q4H PRN Administration FOR ITCHING Docusate Sodium 300 mg 10/01/19 22:00 10/21/19 21:39 Colace - PO Not Given HS AMRIT Furosemide 80 mg 10/20/19 14:00 10/22/19 13:07 Lasix Injection - IVPUSH 80 mg TID AMRIT Administration Hydroxyzine Pamoate 25 mg 10/15/19 21:24 10/18/19 18:06 Vistaril - PO 25 mg Q8H PRN Administration FOR ITCHING Insulin Aspart 1 vial 10/01/19 07:00 10/22/19 17:34 Novolog Vial Sliding Scale - SQ 4 units ACHS AMRIT Administration Protocol Lactobacillus Acidophilus 1 tab 09/29/19 14:30 10/22/19 10:45 Bacid - PO 1 tab DAILY AMRIT Administration Letrozole 2.5 mg 10/01/19 10:00 10/22/19 10:48 Femara - PO 2.5 mg DAILY AMRIT Administration Levothyroxine Sodium 100 mcg 10/01/19 07:00 10/22/19 06:28 Synthroid - PO 100 mcg ACBK AMRIT Administration Lidocaine 3 patch 10/20/19 10:00 10/22/19 10:12 Lidoderm Patch - TP Not Given DAILY AMRIT Miscellaneous 1 each 10/13/19 22:00 10/21/19 21:39 Lidoderm Patch Removal MC 1 each DAILY@2200 AMRIT Administration Nitroglycerin 1 inch 10/03/19 14:26 10/22/19 17:34 Nitro-Bid 2% Paste - TD 1 inch Q6HPO AMRIT Administration Nystatin 1 applic 10/18/19 18:00 10/22/19 17:34 Mycostatin Cream - TP 1 applic Q6HPO AMRIT Administration Pantoprazole Sodium 40 mg 10/01/19 10:00 10/22/19 10:45 Protonix - PO 40 mg DAILY AMRIT Administration Polyethylene Glycol 17 gm 10/01/19 10:00 10/22/19 10:47 Miralax (For Daily Use) - PO Not Given BID AMRIT Selenium Sulfide 1 applic 10/16/19 08:39 Selenium Sulfide 2.25% Shampoo TP 10/23/19 08:39 DAILY PRN FOR ITCHING Triamcinolone Acetonide 1 applic 10/18/19 10:00 10/22/19 10:49 Aristocort 0.1% Cream - TP 1 applic DAILY AMRIT Administration Triamcinolone Acetonide 1 applic 10/19/19 10:15 10/22/19 10:49 Aristocort 0.1% Lotion - TP 1 applic BID AMRIT Administration ASSESSMENT/PLAN: 9F yo female with pmhx of diastolic CHF, a-fib (on Eliquis), CKD, breast cancer s/p mastectomy, myelodysplasia, IDDM type 2, hypothyroidism, HLD, CVA, and GERD presents with b/l leg swelling and nausea for "weeks" and back pain for several days admitted for acute CHF exacerbation. RASH: -Dr. Turk (Derm) saw patient 10/17 and does believes it's more likely a combination of dermatitis/eczema, & petechiae from edema. Does not rec biopsy at this time. Recommended oral steroids to patient but she said patient refused. Triamcinolone lotion to be applied all over body. -Benadryl po q4hr for itching -Consulted Dr. Maira for Rheumatology for possible vasculitis. Rule out paraneoplastic disease. Requested consult to Dr. Baker for skin biopsy. The patient might need to be transferred for management of this problem. - Possible sulfa rash from lasix v angle syndrome from hydralazine, d/c hydralazine, but cannot stop lasix - anti-histone ab & LOVELY ordered - started 12.5 IV benedryl q4 hr for itching - gave 40 mg IV methylprednisolone once today Dr. Reynaga hydroxyzine 25mg po Q8h for itching Consulted Dr. Maria for Rheumatology -C3 & C4 ordered and pending -consider biopsy and paraneoplastic syndrome Dr. Baker performed skin biopsy on patient - results pending MAURICE on CKD; BUN/Cr continues to improve -serial BMPs to monitor Cr (baseline near 2) today 2.8 -skin flaking may be due to renal disease uremia (xerosis cutis) - Dr. Sequeira hold off aldactone because of rash cont aggressive diuresis watch BUN/Cr because steroids may cause increase gave more albumin today Patient says she is now agreeable to trial of dialysis Acute on Chronic Diastolic CHF Exacerbation; - Daily weights, I/Os, 2gm Na diet w/ fluid restriction - IV Lasixs - Cont 2.5 L O2 NC - Repeat Echo (10/03) showed LV wnl, EF 55-60% - patient increasingly tachy - increase coreg to 37.5 BID (10/13) Thrombocytopenia and Leukocytosis platelets have been dropping over last few days today Plts up to 84 WBC count also continuously elevating concerned for MDS morphing into Leukemia. Consulted Dr. Reynaga - patient and heme/onc both agree that no bone biopsy should be done - counts have been stable - flow cytometry did not show AML - continue to monitor and treat symptoms - concerned that rash is manifestation of underlying infection - Dr. Turk (Derm) saw patient 10/17 and does believes it's more likely a combination of dermatitis/eczema, & petechiae from edema. Does not rec biopsy at this time. Recommended oral steroids ordered Triamcinolone lotion to be applied all over body. Anemia; likely multi-factorial in setting of CKD, myelodysplasia - Transfusion 1 PRBC on 10/15 - Continue to transfuse PRN to maintain Hgb >7 New 4 cm L Hepatic Lobe lesion; in setting of hx of breast cancer and MDS - Onc consulted- Dr. Sullivan CA 27-[address] Sullivan could not be reached ([phone]) - Cont home meds: Letrozole 2.5 QD Stage 2 sacral ulcer; not infected -Santyl and bandage -Frequent turning and positioning ESBL UTI Has no urinary symptoms -UCx +ESBL Kleb pneumo; repeat UCx +Group D strep/enterococcus - Per ID, Ertapenem 500 mg QD completed today. Started on ZYVOX 600MG PO BID X 3D completed - 10/21 patient Urine cx came back + for ESBL Hyponatremia; likely 2/2 fluid overload. Resolved. Generalized abdominal pain; 2/2 constipation vs. 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 - New Patient This patient is new to me today: No - Critical Care Critical Care patient: No - Discharge Referral Referred to [facility] Med P.C.: No ATTENDING PHYSICIAN STATEMENT I saw and evaluated the patient. I reviewed the resident's note and discussed the case with the resident. I agree with the resident's findings and plan as documented. SUBJECTIVE: OBJECTIVE: ASSESSMENT AND PLAN:
[2019-10-22] MEDS: LIDOCAINE PATCH REMOVAL MC SCH (22:17)
[2019-10-22] MEDS: DOCUSATE SODIUM 100 MG CAPSULE (FP) PO SCH (22:17)
[2019-10-22] MEDS: PANTOPRAZOLE SODIUM 40 MG VIAL IVPUSH SCH (22:49)
[2019-10-23] MEDS: NYSTATIN 100,000 UNIT/GM TOPICAL CREAM 15 GM TUBE TP SCH ×4 (00:05→17:39)
[2019-10-23] MEDS: NITROGLYCERIN 2% OINTMENT - 1GM PACKET TD SCH ×4 (00:10→17:38)
[2019-10-23] MEDS ORDERED: PT OWN MED DRAWER 7, Y5N ONE ×2 (05:41→09:07)
[2019-10-23] MEDS: FUROSEMIDE 40 MG/4 ML INJECTABLE VIAL IVPUSH SCH ×2 (05:49→13:32)
[2019-10-23] MEDS: LEVOTHYROXINE NA 100 MCG TABLET (FP) PO SCH (06:06)
[2019-10-23] MEDS: INSULIN SLIDING SCALE (NOVOLOG) 1 VIAL SQ SCH ×3 (06:07→17:20)
[2019-10-23 08:09] LABS: HEMATOCRIT 24.4 % (32.4-45.2); HEMOGLOBIN 7.6 GM/dL (10.7-15.3); MCH 29.8 pg (25.7-33.7); MCHC 31.2 g/dl (32.0-36.0); MEAN CELL VOLUME 95.3 fl (80-96); MEAN PLT VOLUME 8.9 fl (7.5-11.1); PLATELET COUNT 175 K/MM3 (134-434); RBC 2.56 M/mm3 (3.60-5.2); RDW 20.2 % (11.6-15.6)
[2019-10-23 08:36] LABS: CALCIUM 8.6 mg/dL (8.5-10.1); CREATININE 2.7 mg/dL (0.55-1.3); PHOSPHOROUS 3.5 mg/dL (2.5-4.9); POTASSIUM 4.4 mmol/L (3.5-5.1)
--- NOTE | 2019-10-23 09:42 | PN.HO ---
Progress Note (short form) - Note Progress Note: PAatient seen and examiend c/o itching/ rash , AFVSS MAculopapular rash, generalized, peeling of hands Cor: RSR, No murmurs, No gallops Lungs: Clear to auscultation, anteriorly Abd: Soft, Normal bowel sounds, No organomegaly Ext:No significant edema Left breast -lower outer quadrant induration LAbs/Meds reviewed A/P 89 y/o lady with h/o diastolic CHF, a-fib (on Eliquis), CKD, breast cancer s/p mastectomy, myelodysplasia, IDDM type 2, hypothyroidism, HLD, CVA, and GERD who presented with SOB adn LE edema and was diagnosed with D CHF exacerbation Acute on chronic diastolic heart failure ESBL producing Klebsiealla complicated UTI/pyelonephritis : treated MAURICE on CKD contemplating dialysis Liver mass retroperitoneal adenopathy b/l adrenal nodules h/o MDS /MPD chronic normocytic anemia persistant leukocytosis h/o A fib Stage 2 sacral decubiti Left hepatic lobe lesion 4cm/rt. hepatic lobe lesions ---? metastatic breast cancer swithc letrozole ? faslodex ---- to f/u with primary oncologist h/o MDS/MPD: Flow suggestive of MPD Eosinophilia: ongoing allergic reaction No evidence of leukemia Rash/eosinophilia: Derm consult Triamcinolone cream atarax f/u biopsy Will contact primary oncologist
--- NOTE | 2019-10-23 10:45 | PN ---
Progress Note (short form) - Note Progress Note: Patient is comfortable, better today, less erythema and itching as per patient. Awake , comfortable Vital Signs Temperature 98 F 10/23/19 05:00 Pulse Rate 92 H 10/23/19 05:00 Respiratory Rate 20 10/23/19 05:00 Blood Pressure 127/77 10/23/19 05:00 O2 Sat by Pulse Oximetry (%) 98 10/23/19 01:48 GENERAL: The patient is awake, alert, and oriented, in no acute distress. HEAD: Normal with no signs of trauma. EYES: PERRL, extraocular movements intact, sclera anicteric, conjunctiva clear. ENT: Ears normal, oropharynx clear without exudates, moist mucous membranes. NECK: Trachea midline, full range of motion, supple. LUNGS: Breath sounds equal, clear to auscultation bilaterally, no wheezes, no crackles, no accessory muscle use. HEART: Regular rate and rhythm, S1, S2 +, no rub or gallop. ABDOMEN: Soft, NT,ND, normoactive bowel sounds, no guarding, no rebound, no hepatosplenomegaly, no masses. EXTREMITIES: 2+ pulses, warm, well-perfused, no edema. NEUROLOGICAL: Cranial nerves II through XII grossly intact. Normal speech, gait not observed. PSYCH: Normal mood, normal affect. SKIN: Warm, dry, normal turgor. Decubitus ulcer CBCD WBC 23.0 K/mm3 (4.0-10.0) H 10/23/19 06:45 RBC 2.56 M/mm3 (3.60-5.2) L 10/23/19 06:45 Hgb 7.6 GM/dL (10.7-15.3) L 10/23/19 06:45 Hct 24.4 % (32.4-45.2) L 10/23/19 06:45 MCV 95.3 fl (80-96) 10/23/19 06:45 MCHC 31.2 g/dl (32.0-36.0) L 10/23/19 06:45 RDW 20.2 % (11.6-15.6) H 10/23/19 06:45 Plt Count 175 K/MM3 (134-434) D 10/23/19 06:45 MPV 8.9 fl (7.5-11.1) 10/23/19 06:45 CMP Sodium 136 mmol/L (136-145) 10/23/19 06:45 Potassium 4.4 mmol/L (3.5-5.1) 10/23/19 06:45 Chloride 101 mmol/L (98-107) 10/23/19 06:45 Carbon Dioxide 22 mmol/L (21-32) 10/23/19 06:45 Anion Gap 13 MMOL/L (8-16) 10/23/19 06:45 BUN 109.0 mg/dL (7-18) H* 10/23/19 06:45 Creatinine 2.7 mg/dL (0.55-1.3) H 10/23/19 06:45 Random Glucose 199 mg/dL (74-106) H 10/23/19 06:45 Calcium 8.6 mg/dL (8.5-10.1) 10/23/19 06:45 Total Bilirubin 0.4 mg/dL (0.2-1) 10/22/19 07:13 AST 16 U/L (15-37) 10/22/19 07:13 ALT 12 U/L (13-61) L 10/22/19 07:13 Alkaline Phosphatase 401 U/L (45-117) H 10/22/19 07:13 Total Protein 6.3 g/dl (6.4-8.2) L 10/22/19 07:13 Albumin 2.2 g/dl (3.4-5.0) L 10/22/19 07:13 CARDIAC ENZYMES Troponin I < 0.02 ng/ml (0.00-0.05) 09/24/19 16:49 Current Medications Generic Name Dose Route Start Last Admin Trade Name Freq PRN Reason Stop Dose Admin Acetaminophen 650 mg 10/11/19 12:26 10/21/19 00:26 Tylenol - PO 650 mg Q6H PRN Administration PAIN LEVEL 6-10 Apixaban 2.5 mg 10/04/19 22:00 10/22/19 22:26 Eliquis - PO Not Given BID AMRIT Bacitracin 1 applic 10/21/19 17:30 10/22/19 10:45 Bacitracin - TP 1 applic DAILY AMRIT Administration Bisacodyl 10 mg 10/14/19 13:59 07/10/20 13:05 Dulcolax Suppository - CO 10 mg PRN PRN Administration CONSTIPATION Camphor/Menthol 1 applic 10/17/19 12:39 Sarna Anti-Itch - TP BID PRN FOR ITCHING Carvedilol 25 mg 10/23/19 09:26 Coreg - PO BID AMRIT Diphenhydramine HCl 12.5 mg 10/21/19 11:01 10/22/19 17:33 Benadryl Injection - IVPUSH 12.5 mg Q4H PRN Administration FOR ITCHING Docusate Sodium 300 mg 10/01/19 22:00 10/22/19 22:17 Colace - PO Not Given HS AMRIT Furosemide 80 mg 10/20/19 14:00 10/23/19 05:49 Lasix Injection - IVPUSH 80 mg TID AMRIT Administration Hydroxyzine Pamoate 25 mg 10/15/19 21:24 10/18/19 18:06 Vistaril - PO 25 mg Q8H PRN Administration FOR ITCHING Insulin Aspart 1 vial 10/01/19 07:00 10/23/19 06:07 Novolog Vial Sliding Scale - SQ 2 units ACHS AMRIT Administration Protocol Lactobacillus Acidophilus 1 tab 09/29/19 14:30 10/22/19 10:45 Bacid - PO 1 tab DAILY AMRIT Administration Letrozole 2.5 mg 10/01/19 10:00 10/22/19 10:48 Femara - PO 2.5 mg DAILY AMRIT Administration Levothyroxine Sodium 100 mcg 10/01/19 07:00 10/23/19 06:06 Synthroid - PO 100 mcg ACBK AMRIT Administration Lidocaine 3 patch 10/20/19 10:00 10/22/19 10:12 Lidoderm Patch - TP Not Given DAILY AMRIT Miscellaneous 1 each 10/13/19 22:00 10/22/19 22:17 Lidoderm Patch Removal MC 1 each DAILY@2200 AMRIT Administration Nitroglycerin 1 inch 10/03/19 14:26 10/23/19 05:50 Nitro-Bid 2% Paste - TD 1 inch Q6HPO AMRIT Administration Nystatin 1 applic 10/18/19 18:00 10/23/19 05:49 Mycostatin Cream - TP 1 applic Q6HPO AMRIT Administration Pantoprazole Sodium 40 mg 10/22/19 22:45 07/17/20 22:49 Protonix Iv IVPUSH 40 mg BID AMRIT Administration Polyethylene Glycol 17 gm 10/01/19 10:00 10/22/19 22:17 Miralax (For Daily Use) - PO Not Given BID AMRIT Triamcinolone Acetonide 1 applic 10/18/19 10:00 10/22/19 10:49 Aristocort 0.1% Cream - TP 1 applic DAILY AMRIT Administration Triamcinolone Acetonide 1 applic 10/19/19 10:15 10/22/19 22:17 Aristocort 0.1% Lotion - TP 1 applic BID AMRIT Administration Microbiology 10/21/19 22:15 Urine - Urine Clean Catch Urine Culture - Final Contaminated: Please Repeat 10/19/19 07:20 Urine - Urine Clean Catch Urine Culture - Preliminary Klebsiella Pneumoniae - Esbl Group D Strep Or Entero Coccus 10/16/19 08:55 Blood - Peripheral Venous Blood Culture - Final NO GROWTH AFTER 5 DAYS INCUBATION 10/16/19 08:50 Blood - Peripheral Venous Blood Culture - Final NO GROWTH AFTER 5 DAYS INCUBATION 10/03/19 09:21 Urine - Urine Clean Catch Urine Culture - Final Vr Ec Faecium 09/24/19 20:45 Urine - Urine Clean Catch Urine Culture - Final Klebsiella Pneumoniae - Esbl Assessment and plan: This patient is 89yof with Pmhx of Hx of diastolic CHF, a-fib (on Eliquis), CKD, breast cancer s/p mastectomy, myelodysplasia, IDDM type 2, hypothyroidism, HLD, CVA, and GERD who presented with SOB and LE edema and was diagnosed with D. CHF exacerbation. # Acute Maculopapular rash : improving on IV benadryl , WILL DC Hydralazine, we natalia't dc lasix since patient has swelling of lower extremities , caNNTOT DC lasix at this time, CONTINUE IV benadryl 12.5mg q4h and one dose of solu medrol 40mg IV . w/u is pending. SKIN bX IS PENDING #Acute on chronic diastolic heart failure : improved #ESBL producing Klebsiella complicated UTI/pyelonephritis : treated , as per ID to dc IV antibiotic and observe off antibiotics. #MAURICE on CKD : improved #Liver mass #retroperitoneal LAP #b/l adrenal nodules #h/o MDS #chronic normocytic anemia #persistent leukocytosis #Hx of prolonged QTC #Hyponatremia #high AG metabolic acidosis :resolved #Hx of A fib #Stage 2 sacral decubiti DVT Px; Eliquis will dc hydralazine, possible rash due to hydralazine vs lasix ordered brad and Dr Crow MURRY on the case as per nephro caanot stop lasix for now. continue current care Visit type - Emergency Visit Emergency Visit: Yes ED Registration Date: 09/24/19 Care time: The patient presented to the Emergency Department on the above date and was hospitalized for further evaluation of their emergent condition. - New Patient This patient is new to me today: No - Critical Care Critical Care patient: No - Discharge Referral Referred to [facility] Med P.C.: No
[2019-10-23] MEDS: PANTOPRAZOLE SODIUM 40 MG VIAL IVPUSH SCH (10:49)
[2019-10-23] MEDS: LETROZOLE 2.5 MG TABLET (FP) PO SCH (10:49)
[2019-10-23] MEDS: CARVEDILOL 25 MG TABLET (FP) PO SCH (10:50)
[2019-10-23] MEDS: BACITRACIN 15 GM TUBE TOPICAL OINTMENT TP SCH (10:51)
[2019-10-23] MEDS: TRIAMCINOLONE ACET 0.1% CREAM 15 GM TUBE TP SCH (10:51)
[2019-10-23] MEDS: LACTOBACILLUS ACIDOPHILUS 1 TABLET PO SCH (10:51)
[2019-10-23] MEDS: POLYETHYLENE GLYCOL 3350 119 GM BTL PO SCH (10:51)
[2019-10-23] MEDS: APIXABAN 2.5 MG TABLET PO SCH (10:51)
[2019-10-23] MEDS: TRIAMCINOLONE ACET 0.1% 60 ML LOTION TP SCH (10:51)
[2019-10-23] MEDS: LIDOCAINE 5% TOPICAL PATCH TP SCH (10:51)
[2019-10-23] MEDS ORDERED: ALBUMIN HUMAN 25% 100 ML VIAL IVPB SCH (12:30)
[2019-10-23] MEDS ORDERED: ALBUMIN HUMAN 25% 100 ML VIAL IVPB ONE (13:15)
--- NOTE | 2019-10-23 14:34 | PN ---
Progress Note, Physician Chief Complaint: swelling History of Present Illness: denies sob, orthopnea. swollen legs but better no cp, palp no cigs - Current Medication List Current Medications: Active Medications Acetaminophen (Tylenol -) 650 mg PO Q6H PRN PRN Reason: PAIN LEVEL 6-10 Last Admin: 10/21/19 00:26 Dose: 650 mg Documented by: Apixaban (Eliquis -) 2.5 mg PO BID [facility] Last Admin: 10/23/19 10:51 Dose: 2.5 mg Documented by: Bacitracin (Bacitracin -) 1 applic TP DAILY [facility] Last Admin: 10/23/19 10:51 Dose: 1 applic Documented by: Bisacodyl (Dulcolax Suppository -) 10 mg [place] PRN PRN PRN Reason: CONSTIPATION Last Admin: 10/15/19 13:05 Dose: 10 mg Documented by: Camphor/Menthol (Sarna Anti-Itch -) 1 applic TP BID PRN PRN Reason: FOR ITCHING Carvedilol (Coreg -) 25 mg PO BID [facility] Last Admin: 10/23/19 10:50 Dose: 25 mg Documented by: Diphenhydramine HCl (Benadryl Injection -) 12.5 mg IVPUSH Q4H PRN PRN Reason: FOR ITCHING Last Admin: 10/23/19 10:49 Dose: 12.5 mg Documented by: Docusate Sodium (Colace -) 300 mg PO HS [facility] Last Admin: 10/22/19 22:17 Dose: Not Given Documented by: Furosemide (Lasix Injection -) 80 mg IVPUSH TID [facility] Last Admin: 10/23/19 13:32 Dose: 80 mg Documented by: Hydroxyzine Pamoate (Vistaril -) 25 mg PO Q8H PRN PRN Reason: FOR ITCHING Last Admin: 10/18/19 18:06 Dose: 25 mg Documented by: Insulin Aspart (Novolog Vial Sliding Scale -) 1 vial SQ [facility]; Protocol Last Admin: 10/23/19 11:47 Dose: 2 units Documented by: Lactobacillus Acidophilus (Bacid -) 1 tab PO DAILY [facility] Last Admin: 10/23/19 10:51 Dose: 1 tab Documented by: Letrozole (Femara -) 2.5 mg PO DAILY [facility] Last Admin: 10/23/19 10:49 Dose: 2.5 mg Documented by: Levothyroxine Sodium (Synthroid -) 100 mcg PO ACBK [facility] Last Admin: 10/23/19 06:06 Dose: 100 mcg Documented by: Lidocaine (Lidoderm Patch -) 3 patch TP DAILY [facility] Last Admin: 10/23/19 10:51 Dose: Not Given Documented by: Miscellaneous (Lidoderm Patch Removal) 1 each MC DAILY@2200 [facility] Last Admin: 10/22/19 22:17 Dose: 1 each Documented by: Nitroglycerin (Nitro-Bid 2% Paste -) 1 inch TD Q6HPO [facility] Last Admin: 10/23/19 11:48 Dose: 1 inch Documented by: Nystatin (Mycostatin Cream -) 1 applic TP Q6HPO [facility] Last Admin: 10/23/19 11:48 Dose: 1 applic Documented by: Pantoprazole Sodium (Protonix Iv) 40 mg IVPUSH BID [facility] Last Admin: 10/23/19 10:49 Dose: 40 mg Documented by: Polyethylene Glycol (Miralax (For Daily Use) -) 17 gm PO BID [facility] Last Admin: 10/23/19 10:51 Dose: Not Given Documented by: Triamcinolone Acetonide (Aristocort 0.1% Cream -) 1 applic TP DAILY [facility] Last Admin: 10/23/19 10:51 Dose: 1 applic Documented by: Triamcinolone Acetonide (Aristocort 0.1% Lotion -) 1 applic TP BID [facility] Last Admin: 10/23/19 10:51 Dose: 1 applic Documented by: - Objective Vital Signs: Vital Signs Temperature 98.4 F 10/23/19 14:05 Pulse Rate 101 H 10/23/19 14:05 Respiratory Rate 16 10/23/19 14:05 Blood Pressure 119/69 10/23/19 14:05 O2 Sat by Pulse Oximetry (%) 100 10/23/19 14:05 Constitutional: Yes: No Distress, Calm Eyes: No: Sclera Icterus HENT: No: Nasal Congestion Cardiovascular: Yes: Regular Rate and Rhythm, JVD, S1, S2, Other (PMI non diplaced). No: Gallop, Murmur Respiratory: Yes: CTA Bilaterally. No: Accessory Muscle Use, Wheezes Gastrointestinal: Yes: Normal Bowel Sounds, Soft. No: Tenderness Musculoskeletal: Yes: Other (No kyphosis) Extremities: No: Cyanosis Edema: Yes (2+ pretib) Integumentary: No: Jaundice Neurological: Yes: Alert, Oriented (x3) Psychiatric: No: Agitated Labs: CBC, BMP 10/23/19 06:45 10/23/19 06:45 INR, PTT INR 2.02 (0.83-1.09) H 10/20/19 07:24 Assessment/Plan echo 03/2019 nl LV function, mild MR, mild TR, PASP at least 49 mmHg IMP/REC: Acute diastolic heart failure exacerbation: - recent echo nl LV function - no signs acs - holding aldactone - was on iv lasix but no sig improvement and cr worsened. It was rec'd that pt have HD but she declined so transitioned to po lasix, but now with vol build up and back on iv lasix. - renal fxn stable, resp status/edema reasonably compensated. pt considering HD still, in ongoing d/w dr georges. - seen by palliative care earlier this admit, wished to continue fighting - continue lasix 80 IV tid - cont nitrates for cardiorenal syndrome HTN: - bp stable - cont current meds crow on CKD: - Baseline creat from last admission is 2-2.5, elevated now, likely cardiorenal here - renal following PAF: -cont coreg for rate control -cont eliquis low dose (age, creatinine) anemia: -CKD contributing likely, baseline 8s -running 7s-8s, now guaiac + -would continue adjusted dose eliquis for now as doing, close monitoring of counts--if drops or + melena, will have to hold. she is likely too hi risk for GI scopes. liver mass: -heme/onc following
--- NOTE | 2019-10-23 14:41 | PN ---
Progress Note (short form) - Note Progress Note: GI CONSULT DICTATED
--- NOTE | 2019-10-23 15:06 | PN ---
Progress Note (short form) - Note Progress Note: 1. proteinuria 2. hypothyroid 3. HTN 4. DM 5. fluid overload 6. breast cancer 7. anemia 8. CKD 9. CHF 10. hyponatremia 11. hypokalemia 12. MAURICE #Acute on Chronic Diastolic CHF Exacerbation; #Acute Hyponatremia: Acute on chronic Renal insufficieny 2/2 heart failure, decreased cardiac output and renal perfusion # Prolonged Qtc: 484 monitor #UTI: on IV Ceftriaxone 1gm daily , ucx is pending , ID consulted #Anemia; likely multi-factorial in setting of CKD, myelodysplasia, r/o GI bleed. #New 4 cm L Hepatic Lobe lesion;, r/o metastatic breat to liver dz, #Acute generalized abdominal pain: #Hypothyroidism; DVT Px: Eliquis 2.5 BID a-fib (on Eliquis), CKD, breast cancer s/p mastectomy, myelodysplasia, DM type 2, hypothyroidism, HLD, CVA, and GERD presents with b/l leg swelling , nausea for weeks and back pain for several days admitted for acute diastolic CHF exacerbation. CBC, BMP 09/25/19 05:51 09/26/19 05:52 alert in nad Lungs clear heart irreg Abd soft nontender ext no edema IMP- anasarca HF Chronic hyponatremia Plan-
[2019-10-23] MEDS: ACETAMINOPHEN 325 MG TABLET (FP) PO PRN (18:26)
--- NOTE | 2019-10-23 23:13 | CONS ---
DATE OF CONSULTATION: DATE OF DICTATION: 10/23/2019 GASTROENTEROLOGY CONSULTATION The patient is an 89-year-old female with a past medical history of diastolic CHF; atrial fibrillation, on Eliquis; CKD; breast cancer status post mastectomy; myelodysplasia; insulin-dependent diabetes type 2; hypothyroidism; hyperlipidemia, CVA and reflux disease. She was admitted on September 23 with complaints of right- sided back pain and nausea, as well as vomiting. She was found to have iftel-yn-ergrgsu diastolic CHF, hyponatremia with volume overload, acute kidney injury, urinary tract infection, a new liver mass, questionable metastatic disease, and she has been treated for constipation. This consultation is for anemia, with fecal occult blood testing which is positive. As for the patient, she denies any abdominal pain, nausea, vomiting, diarrhea, constipation or blood in the stool. There is no report in our system of previous endoscopic evaluation. PAST MEDICAL AND SURGICAL HISTORY: As listed in the HPI, with the addition of an umbilical hernia repair and a mastectomy. SOCIAL HISTORY: Does not drink, smoke or use drugs. Lives at [facility]. ALLERGIES: NSAIDS. FAMILY HISTORY: Noncontributory. HOME MEDICATIONS: Reviewed, include vitamins, Coreg, MiraLAX, Norvasc, Eliquis, Lasix, Imdur, Januvia, Humalog, Zofran, Protonix, Percocet and simethicone. PHYSICAL EXAMINATION: Vital Signs: Temperature 98; pulse 101; blood pressure 110/70; respiratory rate 12; oxygen saturation 100% on room air. General: No acute distress. HEENT: Anicteric sclerae. Cardiovascular: S1, S2 regular rate and rhythm. Lungs: Bilaterally clear to auscultation. Abdomen: Soft, nontender. Extremities: No edema. LABORATORY: White blood cell count 23; hemoglobin 7.6, hematocrit 24, which appears to be her trend over the past week; MCV 95; platelet count 175. INR 2. Sodium 136, potassium 4.4; BUN 109, creatinine 2.7, glucose 199. Stool for occult blood was negative on September 25 and presently is positive. COVID testing is negative. She had abdomen and pelvis CT scan on September 23, which revealed a 4-cm left hepatic lobe hypodense lesion suggestive of metastatic neoplastic disease, right hepatic lobe lesion was also seen. A 2.7-cm enlarged right lower quadrant mesenteric lymph node. RP lymph nodes, diverticulosis, adrenal nodules. IMPRESSION: Normocytic anemia, fecal occult blood testing positive without sign of an overt gastrointestinal bleed. She is presently on Eliquis therapy. She may have oozing from gastropathy or lower gastrointestinal source, such as hemorrhoids. I believe her anemia, however, is multifactorial, with her underlying metastatic disease as well as chronic kidney disease contributing to her present hemoglobin and hematocrit. There is no sign of an overt gastrointestinal bleed at this time. RECOMMENDATIONS: recommend continuing her on Protonix 40 mg p.o. daily. Monitor her hemoglobin and hematocrit q.12 while hospitalized. She is presently on Eliquis and this can be continued with close followup of her stool, as well as her hemoglobin. If she were to develop signs of an overt GI bleed, she would benefit from a diagnostic upper endoscopy. I did discuss this with the patient. She appeared to be somewhat apprehensive regarding any additional invasive procedures. I will follow up with her again tomorrow to further discuss. DO TYRA BRANHAM/[id number] MTDD
[2019-10-24] MEDS: POLYETHYLENE GLYCOL 3350 119 GM BTL PO SCH ×3 (00:17→21:46)
[2019-10-24] MEDS: CARVEDILOL 25 MG TABLET (FP) PO SCH ×3 (00:56→22:01)
[2019-10-24] MEDS: APIXABAN 2.5 MG TABLET PO SCH ×3 (00:56→22:01)
[2019-10-24] MEDS: FUROSEMIDE 40 MG/4 ML INJECTABLE VIAL IVPUSH SCH ×4 (00:56→22:02)
[2019-10-24] MEDS: DOCUSATE SODIUM 100 MG CAPSULE (FP) PO SCH ×2 (00:56→22:01)
[2019-10-24] MEDS: INSULIN SLIDING SCALE (NOVOLOG) 1 VIAL SQ SCH ×5 (01:04→22:02)
[2019-10-24] MEDS: LIDOCAINE PATCH REMOVAL MC SCH ×2 (01:10→23:38)
[2019-10-24] MEDS: NYSTATIN 100,000 UNIT/GM TOPICAL CREAM 15 GM TUBE TP SCH ×4 (01:11→17:01)
[2019-10-24] MEDS: TRIAMCINOLONE ACET 0.1% 60 ML LOTION TP SCH ×3 (01:12→22:02)
[2019-10-24] MEDS: PANTOPRAZOLE SODIUM 40 MG VIAL IVPUSH SCH ×3 (01:23→22:02)
[2019-10-24] MEDS ORDERED: PT OWN MED DRAWER 7, Y5N ONE ×3 (03:01→09:07)
[2019-10-24] MEDS: NITROGLYCERIN 2% OINTMENT - 1GM PACKET TD SCH ×4 (03:13→17:49)
[2019-10-24] MEDS: LEVOTHYROXINE NA 100 MCG TABLET (FP) PO SCH (07:08)
--- NOTE | 2019-10-24 07:42 | PN.GI ---
GI Progress Note Subjective: no report of GI bleed - Objective Vital Signs: Vital Signs Temperature 97.5 F L 10/24/19 05:19 Pulse Rate 94 H 10/24/19 05:19 Respiratory Rate 20 10/24/19 05:19 Blood Pressure 128/70 10/24/19 05:19 O2 Sat by Pulse Oximetry (%) 99 10/24/19 05:19 Constitutional: Well Nourished, No Distress Cardiovascular: Yes: WNL, Regular Rate and Rhythm Respiratory: Yes: Regular, CTA Bilaterally Gastrointestinal Inspection: Yes: WNL ...Auscultate: Yes: Normoactive Bowel Sounds Edema: Yes Labs: CBC, BMP 10/23/19 06:45 10/23/19 06:45 INR, PTT INR 2.02 (0.83-1.09) H 10/20/19 07:24 Problem List - Problems (1) Acute diastolic (congestive) heart failure Assessment/Plan: trend h/h daily while hospitalized ppi 40 mg po qd hold off on any invasive procedures at this time - there is no sign of an overt GI bleed Code(s): I50.31 - ACUTE DIASTOLIC (CONGESTIVE) HEART FAILURE (2) Acute kidney injury superimposed on CKD Code(s): N17.9 - ACUTE KIDNEY FAILURE, UNSPECIFIED; N18.9 - CHRONIC KIDNEY DISEASE, UNSPECIFIED (3) Anemia Code(s): D64.9 - ANEMIA, UNSPECIFIED Qualifiers: Anemia type: unspecified type Qualified Code(s): D64.9 - Anemia, un specified (4) Breast cancer Code(s): C50.919 - MALIGNANT NEOPLASM OF UNSP SITE OF UNSPECIFIED FEMALE BREAST
[2019-10-24 08:59] LABS: BASO % 0.4 % (0-2.0); EOS % 3.2 % (0-4.5); HEMATOCRIT 27.1 % (32.4-45.2); HEMOGLOBIN 8.6 GM/dL (10.7-15.3); LYMPH % 3.1 % (8-40); MCHC 31.9 g/dl (32.0-36.0); MEAN CELL VOLUME 93.9 fl (80-96); MEAN PLT VOLUME 8.6 fl (7.5-11.1); MONO % 6.8 % (3.8-10.2); NEUT % 86.5 % (42.8-82.8); PLATELET COUNT 171 K/MM3 (134-434); RBC 2.88 M/mm3 (3.60-5.2); RDW 20.1 % (11.6-15.6); WHITE BLOOD COUNT 18.3 K/mm3 (4.0-10.0)
[2019-10-24] MEDS: LACTOBACILLUS ACIDOPHILUS 1 TABLET PO SCH (09:21)
[2019-10-24] MEDS: BACITRACIN 15 GM TUBE TOPICAL OINTMENT TP SCH (09:22)
[2019-10-24] MEDS: TRIAMCINOLONE ACET 0.1% CREAM 15 GM TUBE TP SCH (09:24)
[2019-10-24] MEDS: hydrOXYzine PAMOATE 25 MG CAPSULE (FP) PO PRN (09:25)
[2019-10-24] MEDS: LIDOCAINE 5% TOPICAL PATCH TP SCH (09:26)
[2019-10-24] MEDS: LETROZOLE 2.5 MG TABLET (FP) PO SCH (09:27)
[2019-10-24 09:28] LABS: ALBUMIN 2.5 g/dl (3.4-5.0); BILIRUBIN,TOTAL 0.6 mg/dL (0.2-1); CALCIUM 8.1 mg/dL (8.5-10.1); CREATININE 2.7 mg/dL (0.55-1.3); MAGNESIUM 1.8 mg/dL (1.8-2.4); PHOSPHOROUS 3.4 mg/dL (2.5-4.9); POTASSIUM 4.3 mmol/L (3.5-5.1); TOT PROT 6.6 g/dl (6.4-8.2)
[2019-10-24 09:42] LABS: BLOOD UREA NITROGEN 104.4 mg/dL (7-18)
[2019-10-24 09:55] LABS: ANISOCYTOSIS 2+; MACROCYTOSIS 0; PLATELET ESTIMATE NORMAL
[2019-10-24] MEDS ORDERED: INSULIN (NOVOLOG) ASPART 100 UNITS/ML 10ML VIAL ONE (10:53)
--- NOTE | 2019-10-24 12:03 | PN ---
Progress Note (short form) - Note Progress Note: UROLOGY NOTE Urinary incontinence and UTI MAURICE liver mets. patient is bedridden with hx of liver mets? UTI and urinary incontinence. she is using dipper. O/E unconscious, soft lax abd no palpable bladder. WBC 18.3 HB 8.6 BUN [address]-Scan no hydro no Renal stone. Liver mets? Plan: Santillan catheter or SPC are options for incontinence. will follow.
--- NOTE | 2019-10-24 13:08 | PN ---
Progress Note, Physician Chief Complaint: swelling History of Present Illness: denies sob, orthopnea. still swollen legs no cp, palp - Current Medication List Current Medications: Active Medications Acetaminophen (Tylenol -) 650 mg PO Q6H PRN PRN Reason: PAIN LEVEL 6-10 Last Admin: 10/23/19 18:26 Dose: 650 mg Documented by: Apixaban (Eliquis -) 2.[address] [facility] Last Admin: 10/24/19 09:21 Dose: 2.5 mg Documented by: Bacitracin (Bacitracin -) [address] [facility] Last Admin: 10/24/19 09:22 Dose: 1 applic Documented by: Bisacodyl (Dulcolax Suppository -) 10 mg [place] PRN PRN PRN Reason: CONSTIPATION Last Admin: 10/15/19 13:05 Dose: 10 mg Documented by: Camphor/Menthol (Sarna Anti-Itch -) 1 applic TP BID PRN PRN Reason: FOR ITCHING Carvedilol (Coreg -) [address] [facility] Last Admin: 10/24/19 09:21 Dose: 25 mg Documented by: Diphenhydramine HCl (Benadryl Injection -) 12.5 mg IVPUSH Q4H PRN PRN Reason: FOR ITCHING Last Admin: 10/24/19 08:15 Dose: 12.5 mg Documented by: Docusate Sodium (Colace -) [address] [facility] Last Admin: 10/24/19 00:56 Dose: 300 mg Documented by: Furosemide (Lasix Injection -) [address] [facility] Last Admin: 10/24/19 07:09 Dose: 80 mg Documented by: Hydroxyzine Pamoate (Vistaril -) 25 mg PO Q8H PRN PRN Reason: FOR ITCHING Last Admin: 10/24/19 09:25 Dose: 25 mg Documented by: Insulin Aspart (Novolog Vial Sliding Scale -) 1 vial SQ [facility]; Protocol Last Admin: 10/24/19 11:42 Dose: 8 units Documented by: Lactobacillus Acidophilus (Bacid -) [address] [facility] Last Admin: 10/24/19 09:21 Dose: 1 tab Documented by: Letrozole (Femara -) 2.[address] [facility] Last Admin: 10/24/19 09:27 Dose: 2.5 mg Documented by: Levothyroxine Sodium (Synthroid -) [address] [facility] Last Admin: 10/24/19 07:08 Dose: 100 mcg Documented by: Lidocaine (Lidoderm Patch -) [address] [facility] Last Admin: 10/24/19 09:26 Dose: 3 patch Documented by: Miscellaneous (Lidoderm Patch Removal) 1 each MC DAILY@2200 [facility] Last Admin: 10/24/19 01:10 Dose: Not Given Documented by: Nitroglycerin (Nitro-Bid 2% Paste -) [address] [facility] Last Admin: 10/24/19 11:43 Dose: 1 inch Documented by: Nystatin (Mycostatin Cream -) [address] [facility] Last Admin: 10/24/19 11:44 Dose: 1 applic Documented by: Pantoprazole Sodium (Protonix Iv) [address] [facility] Last Admin: 10/24/19 09:22 Dose: 40 mg Documented by: Polyethylene Glycol (Miralax (For Daily Use) -) [address] [facility] Last Admin: 10/24/19 09:26 Dose: Not Given Documented by: Triamcinolone Acetonide (Aristocort 0.1% Cream -) [address] [facility] Last Admin: 10/24/19 09:24 Dose: 1 applic Documented by: Triamcinolone Acetonide (Aristocort 0.1% Lotion -) [address] [facility] Last Admin: 10/24/19 09:21 Dose: 1 applic Documented by: - Objective Vital Signs: Vital Signs Temperature 98.2 F 10/24/19 09:15 Pulse Rate 103 H 10/24/19 09:15 Respiratory Rate 19 10/24/19 09:15 Blood Pressure 154/74 10/24/19 09:15 O2 Sat by Pulse Oximetry (%) 100 10/24/19 09:15 Constitutional: Yes: Well Nourished, No Distress, Calm Cardiovascular: Yes: Regular Rate and Rhythm, S1, S2. No: JVD Respiratory: Yes: Regular. No: Accessory Muscle Use Extremities: No: Cold Edema: Yes (2+ pretib) Neurological: Yes: Alert. No: Seizure Psychiatric: No: Agitated Labs: CBC, BMP 10/24/19 07:55 10/24/19 07:55 INR, PTT INR 2.02 (0.83-1.09) H 10/20/19 07:24 Assessment/Plan echo 03/2019 nl LV function, mild MR, mild TR, PASP at least 49 mmHg IMP/REC: Acute diastolic heart failure exacerbation: - recent echo nl LV function - no signs acs - holding aldactone - was on iv lasix but no sig improvement and cr worsened. It was rec'd that pt have HD but she declined so transitioned to po lasix, but now with vol build up and back on iv lasix. - renal fxn stable, resp status/edema reasonably compensated. pt considering HD still, in ongoing d/w dr georges. - seen by palliative care earlier this admit, wished to continue fighting - continue lasix 80 IV tid - cont nitrates for cardiorenal syndrome HTN: - bp stable - cont current meds crow on CKD: - Baseline creat from last admission is 2-2.5, elevated now, likely cardiorenal here - renal following PAF: -cont coreg for rate control -cont eliquis low dose (age, creatinine) anemia: -CKD contributing likely, baseline 8s -running 7s-8s, now guaiac + -would continue adjusted dose eliquis for now as doing, close monitoring of counts--if drops or + melena, will have to hold. she is likely too hi risk for GI scopes. liver mass: -heme/onc following
--- NOTE | 2019-10-24 13:48 | PN ---
Progress Note (short form) - Note Progress Note: 1. proteinuria 2. hypothyroid 3. HTN 4. DM 5. fluid overload 6. breast cancer 7. anemia 8. CKD 9. CHF 10. hyponatremia 11. hypokalemia 12. MAURICE #Acute on Chronic Diastolic CHF Exacerbation; #Acute Hyponatremia: Acute on chronic Renal insufficieny 2/2 heart failure, decreased cardiac output and renal perfusion # Prolonged Qtc: 484 monitor #UTI: on IV Ceftriaxone 1gm daily , ucx is pending , ID consulted #Anemia; likely multi-factorial in setting of CKD, myelodysplasia, r/o GI bleed. #New 4 cm L Hepatic Lobe lesion;, r/o metastatic breat to liver dz, #Acute generalized abdominal pain: #Hypothyroidism; DVT Px: Eliquis 2.5 BID a-fib (on Eliquis), CKD, breast cancer s/p mastectomy, myelodysplasia, DM type 2, hypothyroidism, HLD, CVA, and GERD presents with b/l leg swelling , nausea for weeks and back pain for several days admitted for acute diastolic CHF exacerbation. Active Medications Acetaminophen (Tylenol -) 650 mg PO Q6H PRN PRN Reason: PAIN LEVEL 6-10 Last Admin: 10/23/19 18:26 Dose: 650 mg Documented by: Apixaban (Eliquis -) 2.5 mg PO BID [facility] Last Admin: 10/24/19 09:21 Dose: 2.5 mg Documented by: Bacitracin (Bacitracin -) 1 applic TP DAILY [facility] Last Admin: 10/24/19 09:22 Dose: 1 applic Documented by: Bisacodyl (Dulcolax Suppository -) 10 mg [place] PRN PRN PRN Reason: CONSTIPATION Last Admin: 10/15/19 13:05 Dose: 10 mg Documented by: Camphor/Menthol (Sarna Anti-Itch -) 1 applic TP BID PRN PRN Reason: FOR ITCHING Carvedilol (Coreg -) 25 mg PO BID [facility] Last Admin: 10/24/19 09:21 Dose: 25 mg Documented by: Diphenhydramine HCl (Benadryl Injection -) 12.5 mg IVPUSH Q4H PRN PRN Reason: FOR ITCHING Last Admin: 10/24/19 13:08 Dose: 12.5 mg Documented by: Docusate Sodium (Colace -) 300 mg PO HS [facility] Last Admin: 10/24/19 00:56 Dose: 300 mg Documented by: Furosemide (Lasix Injection -) 80 mg IVPUSH TID [facility] Last Admin: 10/24/19 07:09 Dose: 80 mg Documented by: Hydroxyzine Pamoate (Vistaril -) 25 mg PO Q8H PRN PRN Reason: FOR ITCHING Last Admin: 10/24/19 09:25 Dose: 25 mg Documented by: Insulin Aspart (Novolog Vial Sliding Scale -) 1 vial SQ ACHS [facility]; Protocol Last Admin: 10/24/19 11:42 Dose: 8 units Documented by: Lactobacillus Acidophilus (Bacid -) 1 tab PO DAILY [facility] Last Admin: 10/24/19 09:21 Dose: 1 tab Documented by: Letrozole (Femara -) 2.5 mg PO DAILY [facility] Last Admin: 10/24/19 09:27 Dose: 2.5 mg Documented by: Levothyroxine Sodium (Synthroid -) 100 mcg PO ACBK [facility] Last Admin: 10/24/19 07:08 Dose: 100 mcg Documented by: Lidocaine (Lidoderm Patch -) 3 patch TP DAILY [facility] Last Admin: 10/24/19 09:26 Dose: 3 patch Documented by: Miscellaneous (Lidoderm Patch Removal) 1 each MC DAILY@2200 [facility] Last Admin: 10/24/19 01:10 Dose: Not Given Documented by: Nitroglycerin (Nitro-Bid 2% Paste -) 1 inch TD Q6HPO [facility] Last Admin: 10/24/19 11:43 Dose: 1 inch Documented by: Nystatin (Mycostatin Cream -) 1 applic TP Q6HPO [facility] Last Admin: 10/24/19 11:44 Dose: 1 applic Documented by: Pantoprazole Sodium (Protonix Iv) 40 mg IVPUSH BID [facility] Last Admin: 10/24/19 09:22 Dose: 40 mg Documented by: Polyethylene Glycol (Miralax (For Daily Use) -) 17 gm PO BID [facility] Last Admin: 10/24/19 09:26 Dose: Not Given Documented by: Triamcinolone Acetonide (Aristocort 0.1% Cream -) 1 applic TP DAILY [facility] Last Admin: 10/24/19 09:24 Dose: 1 applic Documented by: Triamcinolone Acetonide (Aristocort 0.1% Lotion -) 1 applic TP BID [facility] Last Admin: 10/24/19 09:21 Dose: 1 applic Documented by: Last Vital Signs Temp Pulse Resp BP Pulse Ox 98.2 F 103 H 19 154/74 100 10/24/19 09:15 10/24/19 09:15 10/24/19 09:15 10/24/19 09:15 10/24/19 09:15 CBC, BMP 10/24/19 07:55 10/24/19 07:55 alert in nad Lungs clear heart irreg Abd soft nontender ext no edema IMP- anasarca HF Chronic hyponatremia Plan-
--- NOTE | 2019-10-24 15:52 | PN ---
Physical Exam: SUBJECTIVE: Patient seen and examined bedside. Saying she is itchy and needs Benadryl. She is in no acute distress on 2L NC and no events overnight. OBJECTIVE: Vital Signs Period Temp Pulse Resp BP Sys/Hernandez Pulse Ox Last 24 Hr 97.4 F-98.6 F 94-111 16-20 126-154/48-79 96-100 GENERAL: The patient is awake, alert, and oriented, in no acute distress. LUNGS: Breath sounds equal, BL crackles HEART: Regular rate and rhythm ABDOMEN: Soft, nontender, nondistended. EXTREMITIES: BL + 2/3 pitting edema on ankles that's tender to palpation. Sacral decubitus ulcer stage 2 SKIN: Patient's erythema has somewhat subsided but now her chest skin is starting flake off like her palms. Feet still have BL petechiae. Laboratory Results - last 24 hr 10/24/19 10/24/19 10/24/19 07:02 07:55 07:55 WBC 18.3 H RBC 2.88 L Hgb 8.6 L Hct 27.1 L MCV 93.9 MCH 30.0 MCHC 31.9 L RDW 20.1 H Plt Count 171 MPV 8.6 Absolute Neuts (auto) 15.8 H Neutrophils % 86.5 H Neutrophils % (Manual) 81.7 Band Neutrophils % 4.3 Lymphocytes % 3.1 L D Lymphocytes % (Manual) 4.3 L D Monocytes % 6.8 Monocytes % (Manual) 5 Eosinophils % 3.2 Eosinophils % (Manual) 1.1 D Basophils % 0.4 Basophils % (Manual) 0.0 Myelocytes % (Man) 2 Promyelocytes % (Man) 0 Blast Cells % (Manual) 0 Nucleated RBC % 0 Metamyelocytes 0 D Hypochromia 0 Platelet Estimate Normal Polychromasia 1+ Poikilocytosis 0 Basophilic Stippling 1+ Anisocytosis 2+ Microcytosis 2+ Macrocytosis 0 Sodium 135 L Potassium 4.3 Chloride 101 Carbon Dioxide 23 Anion Gap 11 BUN 104.4 H* Creatinine 2.7 H Est GFR (CKD-EPI)AfAm 17.41 Est GFR (CKD-EPI)NonAf 15.02 POC Glucometer 230 Random Glucose 230 H Calcium 8.1 L Phosphorus 3.4 Magnesium 1.8 Total Bilirubin 0.6 AST 19 ALT 15 Alkaline Phosphatase 442 H Total Protein 6.6 Albumin 2.5 L Blood Type Antibody Screen Crossmatch 10/24/19 11:40 WBC RBC Hgb Hct MCV MCH MCHC RDW Plt Count MPV Absolute Neuts (auto) Neutrophils % Neutrophils % (Manual) Band Neutrophils % Lymphocytes % Lymphocytes % (Manual) Monocytes % Monocytes % (Manual) Eosinophils % Eosinophils % (Manual) Basophils % Basophils % (Manual) Myelocytes % (Man) Promyelocytes % (Man) Blast Cells % (Manual) Nucleated RBC % Metamyelocytes Hypochromia Platelet Estimate Polychromasia Poikilocytosis Basophilic Stippling Anisocytosis Microcytosis Macrocytosis Sodium Potassium Chloride Carbon Dioxide Anion Gap BUN Creatinine Est GFR (CKD-EPI)AfAm Est GFR (CKD-EPI)NonAf POC Glucometer 302 Random Glucose Calcium Phosphorus Magnesium Total Bilirubin AST ALT Alkaline Phosphatase Total Protein Albumin Blood Type Antibody Screen Crossmatch Active Medications Generic Name Dose Route Start Last Admin Trade Name Freq PRN Reason Stop Dose Admin Acetaminophen 650 mg 10/11/19 12:26 10/23/19 18:26 Tylenol - PO 650 mg Q6H PRN Administration PAIN LEVEL 6-10 Apixaban 2.5 mg 10/04/19 22:00 10/24/19 09:21 Eliquis - PO 2.5 mg BID [facility] Administration Bacitracin 1 applic 10/21/19 17:30 10/24/19 09:22 Bacitracin - TP 1 applic DAILY [facility] Administration Bisacodyl 10 mg 10/14/19 13:59 10/15/19 13:05 Dulcolax Suppository - [place] 10 mg PRN PRN Administration CONSTIPATION Camphor/Menthol 1 applic 10/17/19 12:39 Sarna Anti-Itch - TP BID PRN FOR ITCHING Carvedilol 25 mg 10/23/19 09:26 10/24/19 09:21 Coreg - PO 25 mg BID [facility] Administration Diphenhydramine HCl 12.5 mg 10/21/19 11:01 10/24/19 13:08 Benadryl Injection - IVPUSH 12.5 mg Q4H PRN Administration FOR ITCHING Docusate Sodium 300 mg 10/01/19 22:00 10/24/19 00:56 Colace - PO 300 mg HS [facility] Administration Furosemide 80 mg 10/20/19 14:00 10/24/19 14:36 Lasix Injection - IVPUSH 80 mg TID [facility] Administration Hydroxyzine Pamoate 25 mg 10/15/19 21:24 10/24/19 09:25 Vistaril - PO 25 mg Q8H PRN Administration FOR ITCHING Insulin Aspart 1 vial 10/01/19 07:00 10/24/19 11:42 Novolog Vial Sliding Scale - SQ 8 units ACHS [facility] Administration Protocol Lactobacillus Acidophilus 1 tab 09/29/19 14:30 10/24/19 09:21 Bacid - PO 1 tab DAILY [facility] Administration Letrozole 2.5 mg 10/01/19 10:00 10/24/19 09:27 Femara - PO 2.5 mg DAILY [facility] Administration Levothyroxine Sodium 100 mcg 10/01/19 07:00 10/24/19 07:08 Synthroid - PO 100 mcg ACBK [facility] Administration Lidocaine 3 patch 10/20/19 10:00 10/24/19 09:26 Lidoderm Patch - TP 3 patch DAILY [facility] Administration Miscellaneous 1 each 10/13/19 22:00 10/24/19 01:10 Lidoderm Patch Removal MC Not Given DAILY@2200 [facility] Nitroglycerin 1 inch 10/03/19 14:26 10/24/19 11:43 Nitro-Bid 2% Paste - TD 1 inch Q6HPO [facility] Administration Nystatin 1 applic 10/18/19 18:00 10/24/19 11:44 Mycostatin Cream - TP 1 applic Q6HPO [facility] Administration Pantoprazole Sodium 40 mg 10/22/19 22:45 10/24/19 09:22 Protonix Iv IVPUSH 40 mg BID [facility] Administration Polyethylene Glycol 17 gm 10/01/19 10:00 10/24/19 09:26 Miralax (For Daily Use) - PO Not Given BID [facility] Triamcinolone Acetonide 1 applic 10/18/19 10:00 10/24/19 09:24 Aristocort 0.1% Cream - TP 1 applic DAILY [facility] Administration Triamcinolone Acetonide 1 applic 10/19/19 10:15 10/24/19 09:21 Aristocort 0.1% Lotion - TP 1 applic BID [facility] Administration ASSESSMENT/PLAN: 9F yo female with pmhx of diastolic CHF, a-fib (on Eliquis), CKD, breast cancer s/p mastectomy, myelodysplasia, IDDM type 2, hypothyroidism, HLD, CVA, and GERD presents with b/l leg swelling and nausea for "weeks" and back pain for several days admitted for acute CHF exacerbation. RASH: -Consulted Dr. Maria for Rheumatology for possible vasculitis. Rule out paraneoplastic disease. Requested consult to Dr. Baker for skin biopsy. The patient might need to be transferred for management of this problem. C3 118, C4 16, Anti-DsDNA 1, LOVELY -high, - Possible sulfa rash from lasix v angle syndrome from hydralazine, d/c hydralazine, but cannot stop lasix - anti-histone ab & LOVELY ordered - 12.5 mg IV benedryl q4 hr for itching - gave 40 mg IV methylprednisolone once - Dr. Reynaga hydroxyzine 25mg po Q8h for itching - Dr. Baker performed skin biopsy on patient - results pending Anemia; likely multi-factorial in setting of CKD, myelodysplasia - Transfusion 1 PRBC on 10/15 - PT had + FOBT on Friday, GI consulted (Dr. Leung) no evidence of overt GI bleeding at this time 1 unit pRBCs given (10/22) continue to monitor closely especially b/c patient on eliquis if overt bleeding is suspected pt may benefit from upper endoscopy MAURICE on CKD; BUN/Cr continues to improve -serial BMPs to monitor Cr (baseline near 2) today 2.8 -skin flaking may be due to renal disease uremia (xerosis cutis) - Dr. Sequeira hold off aldactone because of rash cont aggressive diuresis watch BUN/Cr because steroids may cause increase Patient says she is now agreeable to trial of dialysis, reassess on Friday Acute on Chronic Diastolic CHF Exacerbation; - Daily weights, I/Os, 2gm Na diet w/ fluid restriction - IV Lasixs - Cont 2 L O2 NC - Repeat Echo (10/03) showed LV wnl, EF 55-60% - patient increasingly tachy - increase coreg to 37.5 BID (10/13) Thrombocytopenia and Leukocytosis - stable for now - concerned for MDS morphing into Leukemia. - Consulted Dr. Reynaga - patient and heme/onc both agree that no bone biopsy should be done - flow cytometry did not show AML - continue to monitor and treat symptoms New 4 cm L Hepatic Lobe lesion; in setting of hx of breast cancer and MDS - Onc consulted- Dr. Sullivan CA 27-[address] Sullivan could not be reached ([phone]) - Cont home meds: Letrozole 2.5 QD Stage 2 sacral ulcer; not infected - Santyl and bandage - Frequent turning and positioning ESBL UTI - Has no urinary symptoms - UCx +ESBL Kleb pneumo; repeat UCx +Group D strep/enterococcus - Per ID, Ertapenem 500 mg QD completed today. Started on ZYVOX 600MG PO BID X 3D completed - 10/21 patient Urine cx came back + for ESBL. Hypothyroidism; Cont home meds: Synthroid 100 Prophylaxis -DVT: Cont home Eliquis 2.5 BID -GI: Cont home Protonix 40 FEN On soft diet with thin liquids DISPO: - pending patient wishes and GOC Visit type - Emergency Visit Emergency Visit: Yes ED Registration Date: 09/24/19 Care time: The patient presented to the Emergency Department on the above date and was hospitalized for further evaluation of their emergent condition. - New Patient This patient is new to me today: No - Critical Care Critical Care patient: No - Discharge Referral Referred to [facility] Med P.C[facility] No - Medication Review Med list reviewed for High Risk Meds patients 65 and older: Yes ATTENDING PHYSICIAN STATEMENT I saw and evaluated the patient. I reviewed the resident's note and discussed the case with the resident. I agree with the resident's findings and plan as documented. SUBJECTIVE: OBJECTIVE: ASSESSMENT AND PLAN:
--- NOTE | 2019-10-24 18:14 | PN ---
Teaching Attending Note Name of Resident: Kylah Denton ATTENDING PHYSICIAN STATEMENT I saw and evaluated the patient. I reviewed the resident's note and discussed the case with the resident. I agree with the resident's findings and plan as documented. SUBJECTIVE: Patient is feeling better, less pruritic. OBJECTIVE: Vital Signs Temperature 97.4 F L 10/24/19 14:00 Pulse Rate 102 H 10/24/19 14:00 Respiratory Rate 20 10/24/19 14:00 Blood Pressure 138/75 10/24/19 14:00 O2 Sat by Pulse Oximetry (%) 98 10/24/19 14:00 PE: per resident's note Rash is less, less pruritic Decubitus ulcer stage 2 CBCD WBC 18.3 K/mm3 (4.0-10.0) H 10/24/19 07:55 RBC 2.88 M/mm3 (3.60-5.2) L 10/24/19 07:55 Hgb 8.6 GM/dL (10.7-15.3) L 10/24/19 07:55 Hct 27.1 % (32.4-45.2) L 10/24/19 07:55 MCV 93.9 fl (80-96) 10/24/19 07:55 MCHC 31.9 g/dl (32.0-36.0) L 10/24/19 07:55 RDW 20.1 % (11.6-15.6) H 10/24/19 07:55 Plt Count 171 K/MM3 (134-434) 10/24/19 07:55 MPV 8.6 fl (7.5-11.1) 10/24/19 07:55 CMP Sodium 135 mmol/L (136-145) L 10/24/19 07:55 Potassium 4.3 mmol/L (3.5-5.1) 10/24/19 07:55 Chloride 101 mmol/L (98-107) 10/24/19 07:55 Carbon Dioxide 23 mmol/L (21-32) 10/24/19 07:55 Anion Gap 11 MMOL/L (8-16) 10/24/19 07:55 BUN 104.4 mg/dL (7-18) H* 10/24/19 07:55 Creatinine 2.7 mg/dL (0.55-1.3) H 10/24/19 07:55 Random Glucose 230 mg/dL (74-106) H 10/24/19 07:55 Calcium 8.1 mg/dL (8.5-10.1) L 10/24/19 07:55 Total Bilirubin 0.6 mg/dL (0.2-1) 10/24/19 07:55 AST 19 U/L (15-37) 10/24/19 07:55 ALT 15 U/L (13-61) 10/24/19 07:55 Alkaline Phosphatase 442 U/L (45-117) H 10/24/19 07:55 Total Protein 6.6 g/dl (6.4-8.2) 10/24/19 07:55 Albumin 2.5 g/dl (3.4-5.0) L 10/24/19 07:55 CARDIAC ENZYMES Troponin I < 0.02 ng/ml (0.00-0.05) 09/24/19 16:49 Current Medications Generic Name Dose Route Start Last Admin Trade Name Freq PRN Reason Stop Dose Admin Acetaminophen 650 mg 10/11/19 12:26 10/23/19 18:26 Tylenol - PO 650 mg Q6H PRN Administration PAIN LEVEL 6-10 Apixaban 2.5 mg 10/04/19 22:00 10/24/19 09:21 Eliquis - PO 2.5 mg BID AMRIT Administration Bacitracin 1 applic 10/21/19 17:30 10/24/19 09:22 Bacitracin - TP 1 applic DAILY AMRIT Administration Bisacodyl 10 mg 10/14/19 13:59 10/15/19 13:05 Dulcolax Suppository - [place] 10 mg PRN PRN Administration CONSTIPATION Camphor/Menthol 1 applic 10/17/19 12:39 Sarna Anti-Itch - TP BID PRN FOR ITCHING Carvedilol 25 mg 10/23/19 09:26 10/24/19 09:21 Coreg - PO 25 mg BID AMRIT Administration Diphenhydramine HCl 12.5 mg 10/21/19 11:01 10/24/19 17:00 Benadryl Injection - IVPUSH 12.5 mg Q4H PRN Administration FOR ITCHING Docusate Sodium 300 mg 10/01/19 22:00 10/24/19 00:56 Colace - PO 300 mg HS AMRIT Administration Furosemide 80 mg 10/20/19 14:00 10/24/19 14:36 Lasix Injection - IVPUSH 80 mg TID AMRIT Administration Hydroxyzine Pamoate 25 mg 10/15/19 21:24 10/24/19 09:25 Vistaril - PO 25 mg Q8H PRN Administration FOR ITCHING Insulin Aspart 1 vial 10/01/19 07:00 10/24/19 16:56 Novolog Vial Sliding Scale - SQ 6 units ACHS AMRIT Administration Protocol Lactobacillus Acidophilus 1 tab 09/29/19 14:30 10/24/19 09:21 Bacid - PO 1 tab DAILY AMRIT Administration Letrozole 2.5 mg 10/01/19 10:00 10/24/19 09:27 Femara - PO 2.5 mg DAILY AMRIT Administration Levothyroxine Sodium 100 mcg 10/01/19 07:00 10/24/19 07:08 Synthroid - PO 100 mcg ACBK AMRIT Administration Lidocaine 3 patch 10/20/19 10:00 10/24/19 09:26 Lidoderm Patch - TP 3 patch DAILY AMRIT Administration Miscellaneous 1 each 10/13/19 22:00 10/24/19 01:10 Lidoderm Patch Removal MC Not Given DAILY@2200 AMRIT Nitroglycerin 1 inch 10/03/19 14:26 10/24/19 17:49 Nitro-Bid 2% Paste - TD 1 inch Q6HPO AMRIT Administration Nystatin 1 applic 10/18/19 18:00 10/24/19 17:01 Mycostatin Cream - TP 1 applic Q6HPO AMRIT Administration Pantoprazole Sodium 40 mg 10/22/19 22:45 10/24/19 09:22 Protonix Iv IVPUSH 40 mg BID AMRIT Administration Polyethylene Glycol 17 gm 10/01/19 10:00 10/24/19 09:26 Miralax (For Daily Use) - PO Not Given BID AMRIT Triamcinolone Acetonide 1 applic 10/18/19 10:00 10/24/19 09:24 Aristocort 0.1% Cream - TP 1 applic DAILY AMRIT Administration Triamcinolone Acetonide 1 applic 10/19/19 10:15 10/24/19 09:21 Aristocort 0.1% Lotion - TP 1 applic BID AMRIT Administration Home Medications Medication Instructions Recorded Calcium Carbonate/Vitamin D3 1 each PO BID 03/19/19 [Calcium 500-Vit D3 400 Tablet] Carvedilol [Coreg -] 25 mg PO BID 06/23/18 Polyethylene Glycol 3350 [Miralax 17 gm PO DAILY PRN bottle 04/27/19 119 gm Btl -] Amlodipine Besylate [Norvasc -] 5 mg PO DAILY 08/12/19 Apixaban [Eliquis] 2.5 mg PO BID 08/12/19 Furosemide [Lasix -] 80 mg PO BID 08/12/19 Isosorbide Mononitrate [Imdur -] 60 mg PO DAILY 08/12/19 Sitagliptin Phosphate [Januvia] 25 mg PO DAILY 08/12/19 hydrALAZINE HCL [Apresoline -] 10 mg PO TID 08/12/19 Insulin Glargine,Hum.rec.anlog 25 unit SQ DAILY 09/24/19 [Lantus] Insulin Lispro [Humalog] 100 unit SQ PRN 09/24/19 Letrozole [Femara] 2.5 mg PO DAILY 09/24/19 Omeprazole 20 mg PO DAILY 09/24/19 Pantoprazole Sodium [Protonix] 40 mg PO DAILY 09/24/19 Simethicone 125 mg PO Q4H PRN 09/24/19 Multivitamin [One-Daily 1 each PO DAILY 09/25/19 Multi-Vitamin] Ondansetron [Zofran -] 4 mg PO Q4H PRN 09/25/19 Oxycodone HCl/Acetaminophen 1 tab PO Q12H PRN 09/25/19 [Percocet 5-325 mg Tablet] Diclofenac Sodium 2 gm TP DAILY 09/26/19 Isosorbide Mononitrate [Isosorbide 60 mg PO DAILY 10/06/19 Mononitrate ER] Tramadol HCl 1 tab TID 10/06/19 Microbiology 10/19/19 07:20 Urine - Urine Clean Catch Urine Culture - Preliminary Klebsiella Pneumoniae - Esbl Group D Strep Or Entero Coccus 10/21/19 22:15 Urine - Urine Clean Catch Urine Culture - Final Contaminated: Please Repeat 10/16/19 08:55 Blood - Peripheral Venous Blood Culture - Final NO GROWTH AFTER 5 DAYS INCUBATION 10/16/19 08:50 Blood - Peripheral Venous Blood Culture - Final NO GROWTH AFTER 5 DAYS INCUBATION 10/03/19 09:21 Urine - Urine Clean Catch Urine Culture - Final Vr Ec Faecium 09/24/19 20:45 Urine - Urine Clean Catch Urine Culture - Final Klebsiella Pneumoniae - Esbl ASSESSMENT AND PLAN: This patient is 89yof with Pmhx of Hx of diastolic CHF, a-fib (on Eliquis), CKD, breast cancer s/p mastectomy, myelodysplasia, IDDM type 2, hypothyroidism, HLD, CVA, and GERD who presented with SOB and LE edema and was diagnosed with D. CHF exacerbation. # Acute Maculopapular rash : improving on IV benadryl , WILL DC Hydralazine, we natalia't dc lasix since patient has swelling of lower extremities , caNNTOT DC lasix at this time, CONTINUE IV benadryl 12.5mg q4h and one dose of solu medrol 40mg IV . w/u is pending. SKIN bX IS PENDING #Acute on chronic diastolic heart failure : improved #ESBL producing Klebsiella complicated UTI/pyelonephritis : treated , as per ID to dc IV antibiotic and observe off antibiotics. #MAURICE on CKD : improved #Liver mass #retroperitoneal LAP #b/l adrenal nodules #h/o MDS #chronic normocytic anemia #persistent leukocytosis #Hx of prolonged QTC #Hyponatremia #high AG metabolic acidosis :resolved #Hx of A fib #Stage 2 sacral decubiti DVT Px; Eliquis will dc hydralazine, possible rash due to hydralazine vs lasix ordered histone and Dr Crow MURRY on the case as per nephro caanot stop lasix for now. continue current care also spironolactone was discontinued which can cause pruritis and skin rash. waiting for skin Bx pathology
--- NOTE | 2019-10-25 00:07 | PN ---
Progress Note (short form) - Note Progress Note: remains hospitalized w mult issues she now notes that she is agreeable to HD had developed pruritic rash and notes had bx on R knee today notes having transfusion PCs yest PE NAD CVS-irreg S1S2 lungs decBS ext-2{ bilat LE edema skin-diffuse macular rash, dry, desquamation on soles imp: elev Ca 27.29 and radiographic met dz suggestive of met breast cancer. In face of mult co-morbidities/adv age she is non-candidate for aggressive tx. She continues to note that she is afighter and knows she will feel well again. Does not accept hospice. It is reasonable to switch anti-estrogen tx and would d/c letrozole and start either faslodex or exemestane (depending on which is available in hosp.) In view of MDS would cont transfusional support. Remains on a/c, folld by GI, g+? cont follow h/h Had lengthy d/w Pat. Appears to have unrealistic expectations. I suspect her functional status will not improve significantly may benefit from contd discussion w pall care
[2019-10-25] MEDS ORDERED: PT OWN MED DRAWER 7, Y5N ONE ×4 (01:09→21:19)
[2019-10-25] MEDS: NYSTATIN 100,000 UNIT/GM TOPICAL CREAM 15 GM TUBE TP SCH ×4 (01:18→17:21)
[2019-10-25] MEDS: NITROGLYCERIN 2% OINTMENT - 1GM PACKET TD SCH ×4 (01:19→17:21)
[2019-10-25] MEDS: LEVOTHYROXINE NA 100 MCG TABLET (FP) PO SCH (06:33)
[2019-10-25] MEDS: INSULIN SLIDING SCALE (NOVOLOG) 1 VIAL SQ SCH ×4 (06:35→22:16)
[2019-10-25] MEDS: FUROSEMIDE 40 MG/4 ML INJECTABLE VIAL IVPUSH SCH ×3 (06:35→21:46)
[2019-10-25 08:23] LABS: HEMATOCRIT 27.8 % (32.4-45.2); HEMOGLOBIN 8.8 GM/dL (10.7-15.3); MCH 30.1 pg (25.7-33.7); MCHC 31.5 g/dl (32.0-36.0); MEAN CELL VOLUME 95.7 fl (80-96); PLATELET COUNT 156 K/MM3 (134-434); RBC 2.91 M/mm3 (3.60-5.2); RDW 20.1 % (11.6-15.6)
[2019-10-25 08:54] LABS: CALCIUM 8.2 mg/dL (8.5-10.1); CREATININE 2.8 mg/dL (0.55-1.3); MAGNESIUM 1.7 mg/dL (1.8-2.4); PHOSPHOROUS 3.2 mg/dL (2.5-4.9); POTASSIUM 4.3 mmol/L (3.5-5.1)
[2019-10-25 09:03] LABS: BLOOD UREA NITROGEN 104.9 mg/dL (7-18)
--- NOTE | 2019-10-25 11:53 | PN ---
Progress Note (short form) - Note Progress Note: Chief Complaint: sob History of Present Illness: no sob, no dizzy, no cp, no palps, c/o back pain Current Medications Generic Name Dose Route Start Last Admin Trade Name Freq PRN Reason Stop Dose Admin Acetaminophen 650 mg 10/11/19 12:26 10/23/19 18:26 Tylenol - PO 650 mg Q6H PRN Administration PAIN LEVEL 6-10 Apixaban 2.5 mg 10/04/19 22:00 10/24/19 22:01 Eliquis - PO 2.5 mg BID AMRIT Administration Bacitracin 1 applic 10/21/19 17:30 10/24/19 09:22 Bacitracin - TP 1 applic DAILY AMRIT Administration Bisacodyl 10 mg 10/14/19 13:59 10/15/19 13:05 Dulcolax Suppository - [place] 10 mg PRN PRN Administration CONSTIPATION Camphor/Menthol 1 applic 10/17/19 12:39 Sarna Anti-Itch - TP BID PRN FOR ITCHING Carvedilol 25 mg 10/23/19 09:26 10/24/19 22:01 Coreg - PO 25 mg BID AMRIT Administration Diphenhydramine HCl 12.5 mg 10/21/19 11:01 10/24/19 23:30 Benadryl Injection - IVPUSH 12.5 mg Q4H PRN Administration FOR ITCHING Docusate Sodium 300 mg 10/01/19 22:00 10/24/19 22:01 Colace - PO 300 mg HS AMRIT Administration Furosemide 80 mg 10/20/19 14:00 10/25/19 06:35 Lasix Injection - IVPUSH 80 mg TID AMRIT Administration Hydroxyzine Pamoate 25 mg 10/15/19 21:24 10/24/19 09:25 Vistaril - PO 25 mg Q8H PRN Administration FOR ITCHING Insulin Aspart 1 vial 10/01/19 07:00 10/25/19 06:35 Novolog Vial Sliding Scale - SQ 6 units ACHS AMRIT Administration Protocol Lactobacillus Acidophilus 1 tab 09/29/19 14:30 10/24/19 09:21 Bacid - PO 1 tab DAILY AMRIT Administration Letrozole 2.5 mg 10/01/19 10:00 10/24/19 09:27 Femara - PO 2.5 mg DAILY AMRIT Administration Levothyroxine Sodium 100 mcg 10/01/19 07:00 10/25/19 06:33 Synthroid - PO 100 mcg ACBK AMRIT Administration Lidocaine 3 patch 10/20/19 10:00 10/24/19 09:26 Lidoderm Patch - TP 3 patch DAILY AMRIT Administration Miscellaneous 1 each 10/13/19 22:00 10/24/19 23:38 Lidoderm Patch Removal MC 1 each DAILY@2200 AMRIT Administration Nitroglycerin 1 inch 10/03/19 14:26 10/25/19 06:34 Nitro-Bid 2% Paste - TD 1 inch Q6HPO AMRIT Administration Nystatin 1 applic 10/18/19 18:00 10/25/19 06:20 Mycostatin Cream - TP 1 applic Q6HPO AMRIT Administration Pantoprazole Sodium 40 mg 10/22/19 22:45 10/24/19 22:02 Protonix Iv IVPUSH 40 mg BID AMRIT Administration Polyethylene Glycol 17 gm 10/01/19 10:00 10/24/19 21:46 Miralax (For Daily Use) - PO Not Given BID AMRIT Triamcinolone Acetonide 1 applic 10/18/19 10:00 10/24/19 09:24 Aristocort 0.1% Cream - TP 1 applic DAILY AMRIT Administration Triamcinolone Acetonide 1 applic 10/19/19 10:15 10/24/19 22:02 Aristocort 0.1% Lotion - TP 1 applic BID AMRIT Administration Vital Signs Period Temp Pulse Resp BP Sys/Hernandez Pulse Ox Last 24 Hr 97.4 F-97.8 F 102-110 18-20 127-148/71-80 98-100 Constitutional: Yes: No Distress, Calm Eyes: No: Sclera Icterus HENT: No: Nasal Congestion Cardiovascular: Yes: Pulse Irregular, JVD, S1, S2, Other (PMI non diplaced). No: Gallop, Murmur Respiratory: Yes: Regular, CTA Bilaterally. No: Accessory Muscle Use Gastrointestinal: Yes: Normal Bowel Sounds, Soft. No: Tenderness Extremities: No: Cold, Cyanosis Edema: 1+ le edema bl Integumentary: No: Jaundice Neurological: Yes: Alert, Oriented (x3) Psychiatric: No: Agitated Labs: CBC, BMP 10/25/19 07:36 10/25/19 07:36 Assessment/Plan echo 03/2019 nl LV function, mild MR, mild TR, PASP at least 49 mmHg IMP/REC: Acute diastolic heart failure exacerbation: - recent echo nl LV function - no signs acs - holding aldactone - was on iv lasix but no sig improvement and cr worsened. It was rec'd that pt have HD but she declined so transitioned to po lasix, but now with vol build up and back on iv lasix. - renal fxn stable, resp status/edema reasonably compensated. pt considering HD still, in ongoing d/w dr georges. - seen by palliative care earlier this admit, wished to continue fighting - continue lasix 80 IV tid - cont nitrates for cardiorenal syndrome HTN: - bp stable - cont current meds crow on CKD: - Baseline creat from last admission is 2-2.5, elevated now, likely cardiorenal here - renal following PAF: -cont coreg for rate control -cont eliquis low dose (age, creatinine) anemia: -CKD contributing likely, baseline 8s -running 7s-8s, now guaiac + -would continue adjusted dose eliquis for now as doing, close monitoring of counts--if drops or + melena, will have to hold. she is likely too hi risk for GI scopes. liver mass: -heme/onc following
[2019-10-25] MEDS ORDERED: INSULIN (NOVOLOG) ASPART 100 UNITS/ML 10ML VIAL ONE ×2 (12:02→17:37)
[2019-10-25 12:07] LABS: ANTIGLOMERULAR BASEMENT MEN.AB 3 units (0-20)
[2019-10-25] MEDS: LIDOCAINE 5% TOPICAL PATCH TP SCH (12:09)
[2019-10-25] MEDS: PANTOPRAZOLE SODIUM 40 MG VIAL IVPUSH SCH ×2 (12:10→21:46)
[2019-10-25] MEDS: APIXABAN 2.5 MG TABLET PO SCH ×2 (12:10→21:46)
[2019-10-25] MEDS: LETROZOLE 2.5 MG TABLET (FP) PO SCH (12:10)
[2019-10-25] MEDS: ACETAMINOPHEN 325 MG TABLET (FP) PO PRN ×2 (12:10→17:59)
[2019-10-25] MEDS: LACTOBACILLUS ACIDOPHILUS 1 TABLET PO SCH (12:10)
[2019-10-25] MEDS: CARVEDILOL 25 MG TABLET (FP) PO SCH ×2 (12:10→21:47)
[2019-10-25] MEDS: BACITRACIN 15 GM TUBE TOPICAL OINTMENT TP SCH (12:10)
[2019-10-25] MEDS: TRIAMCINOLONE ACET 0.1% CREAM 15 GM TUBE TP SCH (12:11)
[2019-10-25] MEDS: TRIAMCINOLONE ACET 0.1% 60 ML LOTION TP SCH ×2 (12:11→21:45)
[2019-10-25] MEDS: POLYETHYLENE GLYCOL 3350 119 GM BTL PO SCH ×2 (12:11→21:46)
[2019-10-25] MEDS ORDERED: ZINC OXIDE 20% TOPICAL OINTMENT 30 GM TUBE TP ONE (13:51)
--- NOTE | 2019-10-25 14:01 | PN ---
Physical Exam: SUBJECTIVE: Patient seen and examined bedside. Patient still itchy but reports it's better and that the Benadryl helps her. No events overnight. OBJECTIVE: Vital Signs Period Temp Pulse Resp BP Sys/Hernandez Pulse Ox Last 24 Hr 97.4 F-97.8 F 102-110 15-20 127-152/71-82 97-100 GENERAL: The patient is awake, alert, and oriented, in no acute distress. LUNGS: Breath sounds equal with BL crackles HEART: RRR ABDOMEN: Soft, nontender, nondistended. EXTREMITIES: BL + 2/3 pitting edema on ankles that's tender to palpation. Sacral decubitus ulcer stage 2 SKIN: Patient's erythema keeps improving, less peeling today. Laboratory Results - last 24 hr 10/20/19 10/24/19 10/24/19 08:24 16:25 21:06 WBC RBC Hgb Hct MCV MCH MCHC RDW Plt Count MPV Sodium Potassium Chloride Carbon Dioxide Anion Gap BUN Creatinine Est GFR (CKD-EPI)AfAm Est GFR (CKD-EPI)NonAf POC Glucometer 261 292 Random Glucose Calcium Phosphorus Magnesium Glomerular Base Memb Ab 3 10/25/19 10/25/19 10/25/19 06:19 07:36 07:36 WBC 20.0 H RBC 2.91 L Hgb 8.8 L Hct 27.8 L MCV 95.7 MCH 30.1 MCHC 31.5 L RDW 20.1 H Plt Count 156 MPV 9.0 Sodium 136 Potassium 4.3 Chloride 102 Carbon Dioxide 21 Anion Gap 13 BUN 104.9 H* Creatinine 2.8 H Est GFR (CKD-EPI)AfAm 16.66 Est GFR (CKD-EPI)NonAf 14.37 POC Glucometer 268 Random Glucose 264 H Calcium 8.2 L Phosphorus 3.2 Magnesium 1.7 L Glomerular Base Memb Ab 10/25/19 12:05 WBC RBC Hgb Hct MCV MCH MCHC RDW Plt Count MPV Sodium Potassium Chloride Carbon Dioxide Anion Gap BUN Creatinine Est GFR (CKD-EPI)AfAm Est GFR (CKD-EPI)NonAf POC Glucometer 225 Random Glucose Calcium Phosphorus Magnesium Glomerular Base Memb Ab Active Medications Generic Name Dose Route Start Last Admin Trade Name Freq PRN Reason Stop Dose Admin Acetaminophen 650 mg 10/11/19 12:26 10/25/19 12:10 Tylenol - PO 650 mg Q6H PRN Administration PAIN LEVEL 6-10 Apixaban 2.5 mg 10/04/19 22:00 10/25/19 12:10 Eliquis - PO 2.5 mg BID AMRIT Administration Bacitracin 1 applic 10/21/19 17:30 10/25/19 12:10 Bacitracin - TP 1 applic DAILY AMRIT Administration Bisacodyl 10 mg 10/14/19 13:59 10/15/19 13:05 Dulcolax Suppository - [place] 10 mg PRN PRN Administration CONSTIPATION Camphor/Menthol 1 applic 10/17/19 12:39 Sarna Anti-Itch - TP BID PRN FOR ITCHING Carvedilol 25 mg 10/23/19 09:26 10/25/19 12:10 Coreg - PO 25 mg BID AMRIT Administration Diphenhydramine HCl 12.5 mg 10/21/19 11:01 10/25/19 12:11 Benadryl Injection - IVPUSH 12.5 mg Q4H PRN Administration FOR ITCHING Docusate Sodium 300 mg 10/01/19 22:00 10/24/19 22:01 Colace - PO 300 mg HS AMRIT Administration Furosemide 80 mg 10/20/19 14:00 10/25/19 06:35 Lasix Injection - IVPUSH 80 mg TID AMRIT Administration Hydroxyzine Pamoate 25 mg 10/15/19 21:24 10/24/19 09:25 Vistaril - PO 25 mg Q8H PRN Administration FOR ITCHING Insulin Aspart 1 vial 10/01/19 07:00 10/25/19 12:09 Novolog Vial Sliding Scale - SQ 4 units ACHS AMRIT Administration Protocol Lactobacillus Acidophilus 1 tab 09/29/19 14:30 10/25/19 12:10 Bacid - PO 1 tab DAILY AMRIT Administration Letrozole 2.5 mg 10/01/19 10:00 10/25/19 12:10 Femara - PO 2.5 mg DAILY AMRIT Administration Levothyroxine Sodium 100 mcg 10/01/19 07:00 10/25/19 06:33 Synthroid - PO 100 mcg ACBK AMRIT Administration Lidocaine 3 patch 10/20/19 10:00 10/25/19 12:09 Lidoderm Patch - TP Not Given DAILY AMRIT Miscellaneous 1 each 10/13/19 22:00 10/24/19 23:38 Lidoderm Patch Removal MC 1 each DAILY@2200 AMRIT Administration Nitroglycerin 1 inch 10/03/19 14:26 10/25/19 12:11 Nitro-Bid 2% Paste - TD 1 inch Q6HPO AMRIT Administration Nystatin 1 applic 10/18/19 18:00 10/25/19 12:11 Mycostatin Cream - TP 1 applic Q6HPO AMRIT Administration Pantoprazole Sodium 40 mg 10/22/19 22:45 10/25/19 12:10 Protonix Iv IVPUSH 40 mg BID AMRIT Administration Polyethylene Glycol 17 gm 10/01/19 10:00 10/25/19 12:11 Miralax (For Daily Use) - PO Not Given BID AMRIT Triamcinolone Acetonide 1 applic 10/18/19 10:00 10/25/19 12:11 Aristocort 0.1% Cream - TP 1 applic DAILY AMRIT Administration Triamcinolone Acetonide 1 applic 10/19/19 10:15 10/25/19 12:11 Aristocort 0.1% Lotion - TP 1 applic BID AMRIT Administration ASSESSMENT/PLAN: 9F yo female with pmhx of diastolic CHF, a-fib (on Eliquis), CKD, breast cancer s/p mastectomy, myelodysplasia, IDDM type 2, hypothyroidism, HLD, CVA, and GERD presents with b/l leg swelling and nausea for "weeks" and back pain for several days admitted for acute CHF exacerbation. Breast Cancer & MDS w/new hepatic lobe lesions - Onc consulted- Dr. Sullivan CA 27-29 were elevated - Dr. Sullivan saw the patient yesterday recommends to D/C letrozole and start either faslodex or exemestane Diffuse erythematous Rash of unknown origin -Consulted Dr. Maria for Rheumatology for possible vasculitis. C3 118, C4 16, Anti-DsDNA 1, LOVELY -high, Skin biopsy results still pending - Possible sulfa rash from lasix v angle syndrome from hydralazine, d/c hydralazine, but cannot stop lasix - 12.5 mg IV benedryl q4 hr for itching - Dr. Reynaga hydroxyzine 25mg po Q8h for itching MAURICE on CKD; BUN/Cr stable -serial BMPs to monitor Cr -skin flaking may be due to renal disease uremia (xerosis cutis) - Dr. Sequeira patient does not need HD at this time consider high dose PO lasixs or toresemide when ready to d/c Stage 2 sacral ulcer; not infected - start zinc on wound daily - Frequent turning and positioning Anemia; likely multi-factorial in setting of CKD, myelodysplasia - Transfusion 1 PRBC on 10/15 - PT had + FOBT on Friday, GI consulted (Dr. Leung) no evidence of overt GI bleeding at this time 1 unit pRBCs given (10/22) continue to monitor closely especially b/c patient on eliquis if overt bleeding is suspected pt may benefit from upper endoscopy Acute on Chronic Diastolic CHF Exacerbation; - Daily weights, I/Os, 2gm Na diet w/ fluid restriction - IV Lasixs - Cont 2 L O2 NC - Repeat Echo (10/03) showed LV wnl, EF 55-60% - patient increasingly tachy - increase coreg to 37.5 BID (10/13) ESBL UTI - Has no urinary symptoms - UCx +ESBL Kleb pneumo; repeat UCx +Group D strep/enterococcus - Per ID, Ertapenem 500 mg QD completed today. Started on ZYVOX 600MG PO BID X 3D completed - 10/21 patient Urine cx came back + for ESBL. Hypothyroidism; Cont home meds: Synthroid 100 Prophylaxis -DVT: Cont home Eliquis 2.5 BID -GI: Cont home Protonix 40 FEN On soft diet with thin liquids DISPO: - pending patient wishes and GOC Visit type - Emergency Visit Emergency Visit: Yes ED Registration Date: 09/24/19 Care time: The patient presented to the Emergency Department on the above date and was hospitalized for further evaluation of their emergent condition. - New Patient This patient is new to me today: No - Critical Care Critical Care patient: No - Discharge Referral Referred to [facility] Med P.C[facility] No - Medication Review Med list reviewed for High Risk Meds patients 65 and older: Yes ATTENDING PHYSICIAN STATEMENT I saw and evaluated the patient. I reviewed the resident's note and discussed the case with the resident. I agree with the resident's findings and plan as documented. SUBJECTIVE: OBJECTIVE: ASSESSMENT AND PLAN:
--- NOTE | 2019-10-25 14:03 | PN ---
Progress Note, Physician History of Present Illness: Pt seen and examined at bedside. She is awake and alert. She feels rash is improved. - Current Medication List Current Medications: Active Medications Acetaminophen (Tylenol -) 650 mg PO Q6H PRN PRN Reason: PAIN LEVEL 6-10 Last Admin: 10/25/19 12:10 Dose: 650 mg Documented by: Apixaban (Eliquis -) 2.5 mg PO BID [facility] Last Admin: 10/25/19 12:10 Dose: 2.5 mg Documented by: Bacitracin (Bacitracin -) 1 applic TP DAILY [facility] Last Admin: 10/25/19 12:10 Dose: 1 applic Documented by: Bisacodyl (Dulcolax Suppository -) 10 mg ME PRN PRN PRN Reason: CONSTIPATION Last Admin: 10/15/19 13:05 Dose: 10 mg Documented by: Camphor/Menthol (Sarna Anti-Itch -) 1 applic TP BID PRN PRN Reason: FOR ITCHING Carvedilol (Coreg -) 25 mg PO BID [facility] Last Admin: 10/25/19 12:10 Dose: 25 mg Documented by: Diphenhydramine HCl (Benadryl Injection -) 12.5 mg IVPUSH Q4H PRN PRN Reason: FOR ITCHING Last Admin: 10/25/19 12:11 Dose: 12.5 mg Documented by: Docusate Sodium (Colace -) 300 mg PO HS [facility] Last Admin: 10/24/19 22:01 Dose: 300 mg Documented by: Furosemide (Lasix Injection -) 80 mg IVPUSH TID [facility] Last Admin: 10/25/19 06:35 Dose: 80 mg Documented by: Hydroxyzine Pamoate (Vistaril -) 25 mg PO Q8H PRN PRN Reason: FOR ITCHING Last Admin: 10/24/19 09:25 Dose: 25 mg Documented by: Insulin Aspart (Novolog Vial Sliding Scale -) 1 vial SQ [facility]ATED [facility]IN [facility]; Protocol Last Admin: 10/25/19 12:09 Dose: 4 units Documented by: Lactobacillus Acidophilus (Bacid -) 1 tab PO DAILY [facility] Last Admin: 10/25/19 12:10 Dose: 1 tab Documented by: Letrozole (Femara -) 2.5 mg PO DAILY [facility] Last Admin: 10/25/19 12:10 Dose: 2.5 mg Documented by: Levothyroxine Sodium (Synthroid -) 100 mcg PO ACBK [facility] Last Admin: 10/25/19 06:33 Dose: 100 mcg Documented by: Lidocaine (Lidoderm Patch -) 3 patch TP DAILY [facility] Last Admin: 10/25/19 12:09 Dose: Not Given Documented by: Miscellaneous (Lidoderm Patch Removal) 1 each MC DAILY@2200 [facility] Last Admin: 10/24/19 23:38 Dose: 1 each Documented by: Multi-Ingredient Ointment (Zinc Oxide) 1 applic TP DAILY [facility] Nitroglycerin (Nitro-Bid 2% Paste -) 1 inch TD Q6HPO [facility] Last Admin: 10/25/19 12:11 Dose: 1 inch Documented by: Nystatin (Mycostatin Cream -) 1 applic TP Q6HPO [facility] Last Admin: 10/25/19 12:11 Dose: 1 applic Documented by: Pantoprazole Sodium (Protonix Iv) 40 mg IVPUSH BID [facility] Last Admin: 10/25/19 12:10 Dose: 40 mg Documented by: Polyethylene Glycol (Miralax (For Daily Use) -) 17 gm PO BID [facility] Last Admin: 10/25/19 12:11 Dose: Not Given Documented by: Triamcinolone Acetonide (Aristocort 0.1% Cream -) 1 applic TP DAILY [facility] Last Admin: 10/25/19 12:11 Dose: 1 applic Documented by: Triamcinolone Acetonide (Aristocort 0.1% Lotion -) 1 applic TP BID [facility] Last Admin: 10/25/19 12:11 Dose: 1 applic Documented by: - Objective Vital Signs: Vital Signs Temperature 97.7 F 10/25/19 11:55 Pulse Rate 106 H 10/25/19 11:55 Respiratory Rate 15 10/25/19 11:55 Blood Pressure 152/82 10/25/19 11:55 O2 Sat by Pulse Oximetry (%) 97 10/25/19 11:55 Constitutional: Yes: Calm Eyes: Yes: Conjunctiva Clear HENT: Yes: Atraumatic Neck: Yes: Supple Cardiovascular: Yes: S1, S2 Respiratory: Yes: CTA Bilaterally Gastrointestinal: Yes: Soft Genitourinary: Yes: Incontinence Musculoskeletal: Yes: Muscle Weakness Edema: Yes Edema: LLE: 2+, RLE: 2+ Neurological: Yes: Oriented Labs: CBC, BMP 10/25/19 07:36 10/25/19 07:36 INR, PTT INR 2.02 (0.83-1.09) H 10/20/19 07:24 Assessment/Plan Current Medications Generic Name Dose Route Start Last Admin Trade Name Freq PRN Reason Stop Dose Admin Acetaminophen 650 mg 10/11/19 12:26 10/25/19 12:10 Tylenol - PO 650 mg Q6H PRN Administration PAIN LEVEL 6-10 Apixaban 2.5 mg 10/04/19 22:00 10/25/19 12:10 Eliquis - PO 2.5 mg BID [facility] Administration Bacitracin 1 applic 10/21/19 17:30 10/25/19 12:10 Bacitracin - TP 1 applic DAILY [facility] Administration Bisacodyl 10 mg 10/14/19 13:59 10/15/19 13:05 Dulcolax Suppository - ME 10 mg PRN PRN Administration CONSTIPATION Camphor/Menthol 1 applic 10/17/19 12:39 Sarna Anti-Itch - TP BID PRN FOR ITCHING Carvedilol 25 mg 10/23/19 09:26 10/25/19 12:10 Coreg - PO 25 mg BID [facility] Administration Diphenhydramine HCl 12.5 mg 10/21/19 11:01 10/25/19 12:11 Benadryl Injection - IVPUSH 12.5 mg Q4H PRN Administration FOR ITCHING Docusate Sodium 300 mg 10/01/19 22:00 10/24/19 22:01 Colace - PO 300 mg HS [facility] Administration Furosemide 80 mg 10/20/19 14:00 10/25/19 06:35 Lasix Injection - IVPUSH 80 mg TID [facility] Administration Hydroxyzine Pamoate 25 mg 10/15/19 21:24 10/24/19 09:25 Vistaril - PO 25 mg Q8H PRN Administration FOR ITCHING Insulin Aspart 1 vial 10/01/19 07:00 10/25/19 12:09 Novolog Vial Sliding Scale - SQ 4 units ACHS [facility] Administration Protocol Lactobacillus Acidophilus 1 tab 09/29/19 14:30 10/25/19 12:10 Bacid - PO 1 tab DAILY [facility] Administration Letrozole 2.5 mg 10/01/19 10:00 10/25/19 12:10 Femara - PO 2.5 mg DAILY [facility] Administration Levothyroxine Sodium 100 mcg 10/01/19 07:00 10/25/19 06:33 Synthroid - PO 100 mcg ACBK [facility] Administration Lidocaine 3 patch 10/20/19 10:00 10/25/19 12:09 Lidoderm Patch - TP Not Given DAILY [facility] Miscellaneous 1 each 10/13/19 22:00 10/24/19 23:38 Lidoderm Patch Removal MC 1 each DAILY@2200 [facility] Administration Multi-Ingredient Ointment 1 applic 10/25/19 14:00 Zinc Oxide TP DAILY [facility] Nitroglycerin 1 inch 10/03/19 14:26 10/25/19 12:11 Nitro-Bid 2% Paste - TD 1 inch Q6HPO [facility] Administration Nystatin 1 applic 10/18/19 18:00 10/25/19 12:11 Mycostatin Cream - TP 1 applic Q6HPO [facility] Administration Pantoprazole Sodium 40 mg 10/22/19 22:45 10/25/19 12:10 Protonix Iv IVPUSH 40 mg BID [facility] Administration Polyethylene Glycol 17 gm 10/01/19 10:00 10/25/19 12:11 Miralax (For Daily Use) - PO Not Given BID [facility] Triamcinolone Acetonide 1 applic 10/18/19 10:00 10/25/19 12:11 Aristocort 0.1% Cream - TP 1 applic DAILY [facility] Administration Triamcinolone Acetonide 1 applic 10/19/19 10:15 10/25/19 12:11 Aristocort 0.1% Lotion - TP 1 applic BID [facility] Administration Impression 1. proteinuria 2. hypothyroid 3. HTN 4. DM 5. fluid overload 6. breast cancer 7. anemia 8. CKD 9. CHF 10. hyponatremia 11. hypokalemia 12. MAURICE Plan - cont IV lasix - will give albumin as well - repeat labs in am - rash improved - discussed with medical team - discussed with cardio - will follow
[2019-10-25] MEDS: ZINC OXIDE 20% TOPICAL OINTMENT 30 GM TUBE TP SCH (14:42)
[2019-10-25 16:08] LABS: ATYPICAL pANCA <1:20 titer (Neg:<1:20); C-ANCA <1:20 titer (Neg:<1:20)
--- NOTE | 2019-10-25 16:42 | PN ---
Teaching Attending Note Name of Resident: Kylah Denton ATTENDING PHYSICIAN STATEMENT I saw and evaluated the patient. I reviewed the resident's note and discussed the case with the resident. I agree with the resident's findings and plan as documented. SUBJECTIVE: Patient is feeling better with no acute distress OBJECTIVE: Vital Signs Temperature 97.7 F 10/25/19 11:55 Pulse Rate 106 H 10/25/19 11:55 Respiratory Rate 15 10/25/19 11:55 Blood Pressure 152/82 10/25/19 11:55 O2 Sat by Pulse Oximetry (%) 97 10/25/19 11:55 PE: per resident's note generalized rash improving CBCD WBC 20.0 K/mm3 (4.0-10.0) H 10/25/19 07:36 RBC 2.91 M/mm3 (3.60-5.2) L 10/25/19 07:36 Hgb 8.8 GM/dL (10.7-15.3) L 10/25/19 07:36 Hct 27.8 % (32.4-45.2) L 10/25/19 07:36 MCV 95.7 fl (80-96) 10/25/19 07:36 MCHC 31.5 g/dl (32.0-36.0) L 10/25/19 07:36 RDW 20.1 % (11.6-15.6) H 10/25/19 07:36 Plt Count 156 K/MM3 (134-434) 10/25/19 07:36 MPV 9.0 fl (7.5-11.1) 10/25/19 07:36 CMP Sodium 136 mmol/L (136-145) 10/25/19 07:36 Potassium 4.3 mmol/L (3.5-5.1) 10/25/19 07:36 Chloride 102 mmol/L (98-107) 10/25/19 07:36 Carbon Dioxide 21 mmol/L (21-32) 10/25/19 07:36 Anion Gap 13 MMOL/L (8-16) 10/25/19 07:36 BUN 104.9 mg/dL (7-18) H* 10/25/19 07:36 Creatinine 2.8 mg/dL (0.55-1.3) H 10/25/19 07:36 Random Glucose 264 mg/dL (74-106) H 10/25/19 07:36 Calcium 8.2 mg/dL (8.5-10.1) L 10/25/19 07:36 Total Bilirubin 0.6 mg/dL (0.2-1) 10/24/19 07:55 AST 19 U/L (15-37) 10/24/19 07:55 ALT 15 U/L (13-61) 10/24/19 07:55 Alkaline Phosphatase 442 U/L (45-117) H 10/24/19 07:55 Total Protein 6.6 g/dl (6.4-8.2) 10/24/19 07:55 Albumin 2.5 g/dl (3.4-5.0) L 10/24/19 07:55 CARDIAC ENZYMES Troponin I < 0.02 ng/ml (0.00-0.05) 09/24/19 16:49 Current Medications Generic Name Dose Route Start Last Admin Trade Name Freq PRN Reason Stop Dose Admin Acetaminophen 650 mg 10/11/19 12:26 10/25/19 12:10 Tylenol - PO 650 mg Q6H PRN Administration PAIN LEVEL 6-10 Albumin Human 25 gm 10/25/19 16:30 Albumin Human 25% IVPB 10/26/19 04:31 Q6H [facility] Apixaban 2.5 mg 10/04/19 22:00 10/25/19 12:10 Eliquis - PO 2.5 mg BID [facility] Administration Bacitracin 1 applic 10/21/19 17:30 10/25/19 12:10 Bacitracin - TP 1 applic DAILY [facility] Administration Bisacodyl 10 mg 10/14/19 13:59 10/15/19 13:05 Dulcolax Suppository - ID 10 mg PRN PRN Administration CONSTIPATION Camphor/Menthol 1 applic 10/17/19 12:39 Sarna Anti-Itch - TP BID PRN FOR ITCHING Carvedilol 25 mg 10/23/19 09:26 10/25/19 12:10 Coreg - PO 25 mg BID [facility] Administration Diphenhydramine HCl 12.5 mg 10/21/19 11:01 10/25/19 12:11 Benadryl Injection - IVPUSH 12.5 mg Q4H PRN Administration FOR ITCHING Docusate Sodium 300 mg 10/01/19 22:00 10/24/19 22:01 Colace - PO 300 mg HS [facility] Administration Furosemide 80 mg 10/20/19 14:00 10/25/19 14:42 Lasix Injection - IVPUSH 80 mg TID [facility] Administration Hydroxyzine Pamoate 25 mg 10/15/19 21:24 10/24/19 09:25 Vistaril - PO 25 mg Q8H PRN Administration FOR ITCHING Insulin Aspart 1 vial 10/01/19 07:00 10/25/19 12:09 Novolog Vial Sliding Scale - SQ 4 units ACHS [facility] Administration Protocol Lactobacillus Acidophilus 1 tab 09/29/19 14:30 10/25/19 12:10 Bacid - PO 1 tab DAILY [facility] Administration Letrozole 2.5 mg 10/01/19 10:00 10/25/19 12:10 Femara - PO 2.5 mg DAILY [facility] Administration Levothyroxine Sodium 100 mcg 10/01/19 07:00 10/25/19 06:33 Synthroid - PO 100 mcg ACBK [facility] Administration Lidocaine 3 patch 10/20/19 10:00 10/25/19 12:09 Lidoderm Patch - TP Not Given DAILY [facility] Miscellaneous 1 each 10/13/19 22:00 10/24/19 23:38 Lidoderm Patch Removal MC 1 each DAILY@2200 [facility] Administration Multi-Ingredient Ointment 1 applic 10/25/19 14:00 10/25/19 14:42 Zinc Oxide TP 1 applic DAILY [facility] Administration Nitroglycerin 1 inch 10/03/19 14:26 10/25/19 12:11 Nitro-Bid 2% Paste - TD 1 inch Q6HPO [facility] Administration Nystatin 1 applic 10/18/19 18:00 10/25/19 12:11 Mycostatin Cream - TP 1 applic Q6HPO [facility] Administration Pantoprazole Sodium 40 mg 10/22/19 22:45 10/25/19 12:10 Protonix Iv IVPUSH 40 mg BID [facility] Administration Polyethylene Glycol 17 gm 10/01/19 10:00 10/25/19 12:11 Miralax (For Daily Use) - PO Not Given BID [facility] Triamcinolone Acetonide 1 applic 10/18/19 10:00 10/25/19 12:11 Aristocort 0.1% Cream - TP 1 applic DAILY [facility] Administration Triamcinolone Acetonide 1 applic 10/19/19 10:15 10/25/19 12:11 Aristocort 0.1% Lotion - TP 1 applic BID [facility] Administration Home Medications Medication Instructions Recorded Calcium Carbonate/Vitamin D3 1 each PO BID 06/23/18 [Calcium 500-Vit D3 400 Tablet] Carvedilol [Coreg -] 25 mg PO BID 06/23/18 Polyethylene Glycol 3350 [Miralax 17 gm PO DAILY PRN bottle 04/27/19 119 gm Btl -] Amlodipine Besylate [Norvasc -] 5 mg PO DAILY 08/12/19 Apixaban [Eliquis] 2.5 mg PO BID 08/12/19 Furosemide [Lasix -] 80 mg PO BID 08/12/19 Isosorbide Mononitrate [Imdur -] 60 mg PO DAILY 08/12/19 Sitagliptin Phosphate [Januvia] 25 mg PO DAILY 08/12/19 hydrALAZINE HCL [Apresoline -] 10 mg PO TID 08/12/19 Insulin Glargine,Hum.rec.anlog 25 unit SQ DAILY 09/24/19 [Lantus] Insulin Lispro [Humalog] 100 unit SQ PRN 09/24/19 Letrozole [Femara] 2.5 mg PO DAILY 09/24/19 Omeprazole 20 mg PO DAILY 09/24/19 Pantoprazole Sodium [Protonix] 40 mg PO DAILY 09/24/19 Simethicone 125 mg PO Q4H PRN 09/24/19 Multivitamin [One-Daily 1 each PO DAILY 09/25/19 Multi-Vitamin] Ondansetron [Zofran -] 4 mg PO Q4H PRN 09/25/19 Oxycodone HCl/Acetaminophen 1 tab PO Q12H PRN 09/25/19 [Percocet 5-325 mg Tablet] Diclofenac Sodium 2 gm TP DAILY 09/26/19 Isosorbide Mononitrate [Isosorbide 60 mg PO DAILY 10/06/19 Mononitrate ER] Tramadol HCl 1 tab TID 10/06/19 Microbiology 10/19/19 07:20 Urine - Urine Clean Catch Urine Culture - Final Klebsiella Pneumoniae - Esbl Enterococcus Faecalis 10/21/19 22:15 Urine - Urine Clean Catch Urine Culture - Final Contaminated: Please Repeat 10/16/19 08:55 Blood - Peripheral Venous Blood Culture - Final NO GROWTH AFTER 5 DAYS INCUBATION 10/16/19 08:50 Blood - Peripheral Venous Blood Culture - Final NO GROWTH AFTER 5 DAYS INCUBATION 10/03/19 09:21 Urine - Urine Clean Catch Urine Culture - Final Vr Ec Faecium 09/24/19 20:45 Urine - Urine Clean Catch Urine Culture - Final Klebsiella Pneumoniae - Esbl ASSESSMENT AND PLAN: This patient is 89yof with Pmhx of Hx of diastolic CHF, a-fib (on Eliquis), CKD, breast cancer s/p mastectomy, myelodysplasia, IDDM type 2, hypothyroidism, HLD, CVA, and GERD who presented with SOB and LE edema and was diagnosed with D. CHF exacerbation. # Acute Maculopapular rash : improving on IV benadryl , WILL DC Hydralazine, also discontinued spironolactone since can cause skin rash. we natalia't dc lasix since patient has swelling of lower extremities , caNNTOT DC lasix at this time, CONTINUE IV benadryl 12.5mg q4h and one dose of solu medrol 40mg IV giv en. SKIN bX IS PENDING #Acute on chronic diastolic heart failure : improving on lasix IV continue as per Nephro #ESBL producing Klebsiella complicated UTI/pyelonephritis : treated , as per ID to dc IV antibiotic and observe off antibiotics. #MAURICE on CKD : improved #Liver mass #retroperitoneal LAP #b/l adrenal nodules #h/o MDS #chronic normocytic anemia #persistent leukocytosis #Hx of prolonged QTC #Hyponatremia improved #high AG metabolic acidosis :resolved #Hx of A fib on Eliquis #Stage 2 sacral decubitis: improving. continue daily care DVT Px; Eliquis will dc hydralazine, possible rash due to hydralazine ordered histone is still pending as per nephro caanot stop lasix for now. continue current care also spironolactone was discontinued which can cause pruritis and skin rash. waiting for skin Bx pathology UPON DISCHARGE TO REHAB: PER DR BURNS : discussed with her today. SHE CAN BE CALLED AT HER OFFICE FOR MEDICATIONS TO BE PRESCRIBED TO HER : FASLODEX 500MG IM EVERY 2 WEEKs , and aromasin 25mg po daily patient has an appointment in November 22 at 1:30pm , please domingo the office to confirm. [phone]
[2019-10-25] MEDS: ALBUMIN HUMAN 25% 12.5 GM/50 ML VIAL IVPB SCH ×2 (17:22→21:48)
--- NOTE | 2019-10-25 18:33 | PN ---
Progress Note (short form) - Note Progress Note: Palliative care f/up 89 y/o female with PMHx of diastolic CHF, a-fib (on Eliquis), CKD, breast cancer s/p left breast lumpectomy and radiation in 2013, myelodysplasia, IDDM type 2, hypothyroidism, HLD, CVA, and GERD who was admitted to [facility] 09/23 with constipation, SOB, b/l leg swelling and nausea for "weeks" and back pain for "several days." Elissa has been in and out of hospitals and nursing homes this past year and she has been bedbound since February of last year. A CT of the abdomen revealed a 4 cm L hepatic lobe hypodense lesion suspicious for metastatic disease as well as a 2.[address] enlargement and enlarged retroperitoneal nodes. Very elevated BNP and edematous- s/p aggressive diuresis with improvement in edema but worsening renal function. 2 hepatic masses seen on USG liver- 5.7 cm and 4 cm respectively. She has been seen by Haem- onc- cancer markers have been sent- presumed metastatic breast cancer- depending on test results there might be some modification in breast cancer hormonal treatment but pt is not a candidate for aggressive chemo/ sx/ radiation. She was also diagnosed with MDS/ AML or MPN as per haem- onc. Lumbar CT showed multilevel DJD, no neoplastic disease. HD has been recommended but patient refused it but does not wish to consider hospice/ comfort care. She was transitioned to po lasix which failed and she is back on iv lasix. with lidoderm patch for back pain, oxycodone discontinued + leucocytosis- with eosinophilia and diffuse rash- ? allergic reaction to hydralazine which has been discontinued- pt received iv steroids and is on topical steroids and antihistamines with improvement in rash and itching she has been evaluated by derm and skin bx results are pending has 2 PU in sacral area which are causing her back pain and discomfort bed positioning appears to be her major issue as per patient- she does not want to be turned and repositioned because of back pain but needs it because of sacral PU + leucocytosis/ thrombocytopenia suspicious for MPD ( leukemia ruled out) VSS haemodynamically stable AAO x 3 NAD decreased appetite denies SOB irritable dependent for all ADLs, c/o generalized body ache LE 2+ edema today Prognosis guarded metastatic breast cancer- switch to FASLODEX 500MG IM EVERY 2 WEEKs , and aromasin 25mg po daily- will f/up with onc after dc. 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 It is essentially true and her actual goal does seem to be pain relief and comfort even though patient appears to be wary of hospice/ comfort care. - patient is allergic to oxycodone- but now is requesting morphine saying that she has tolerated it in the past with no adverse effects And that her rash was present before she received oxycodone For pain relief we could attempt low dose morphine- 0.5 mg ivp q6-8 h prn and neurontin 100 mg po qhs Generalized rash- w/up in progress, cont antihistamines, topical steroids Persistent fluid overload with impaired cardiorenal status - nl LV function on recent echo with severely dilated atria and severe pulm HTN- consider using torsemide with metolazone while monitoring potassium closely. Dysphagia- on soft diet with thin liquids Patient remains a full code and does not want hospice/ comfort care. She wants to have physical therapy. She would be appropriate for comfort/ hospice care given her multiple comorbidities, metastatic cancer, debilitated state with diastolic CHF and CKD approaching end stage, pressure ulcers. Would continue pain meds, diuretics. She will be appropriate for SNF on palliative care. Will follow. Problem List - Problems (1) Acute diastolic (congestive) heart failure Code(s): I50.31 - ACUTE DIASTOLIC (CONGESTIVE) HEART FAILURE (2) Acute kidney injury superimposed on CKD Code(s): N17.9 - ACUTE KIDNEY FAILURE, UNSPECIFIED; N18.9 - CHRONIC KIDNEY DISEASE, UNSPECIFIED (3) Breast cancer Code(s): C50.919 - MALIGNANT NEOPLASM OF UNSP SITE OF UNSPECIFIED FEMALE BREAST (4) History of CVA with residual deficit Code(s): I69.30 - UNSPECIFIED SEQUELAE OF CEREBRAL INFARCTION (5) Renal disease Code(s): N28.9 - DISORDER OF KIDNEY AND URETER, UNSPECIFIED
[2019-10-25] MEDS: DOCUSATE SODIUM 100 MG CAPSULE (FP) PO SCH (21:45)
[2019-10-25] MEDS: LIDOCAINE PATCH REMOVAL MC SCH (21:46)
[2019-10-26] MEDS: NYSTATIN 100,000 UNIT/GM TOPICAL CREAM 15 GM TUBE TP SCH ×5 (00:57→23:40)
[2019-10-26] MEDS: NITROGLYCERIN 2% OINTMENT - 1GM PACKET TD SCH ×5 (00:58→23:41)
[2019-10-26] MEDS: ACETAMINOPHEN 325 MG TABLET (FP) PO PRN ×2 (02:31→12:02)
[2019-10-26] MEDS: ALBUMIN HUMAN 25% 12.5 GM/50 ML VIAL IVPB SCH (05:00)
[2019-10-26] MEDS: FUROSEMIDE 40 MG/4 ML INJECTABLE VIAL IVPUSH SCH ×3 (05:29→21:27)
[2019-10-26] MEDS: LEVOTHYROXINE NA 100 MCG TABLET (FP) PO SCH (06:00)
[2019-10-26] MEDS: INSULIN SLIDING SCALE (NOVOLOG) 1 VIAL SQ SCH ×4 (06:00→21:27)
[2019-10-26 08:28] LABS: BASO % 0.5 % (0-2.0); EOS % 4.3 % (0-4.5); HEMATOCRIT 27.5 % (32.4-45.2); HEMOGLOBIN 8.6 GM/dL (10.7-15.3); LYMPH % 3.7 % (8-40); MCH 29.6 pg (25.7-33.7); MCHC 31.3 g/dl (32.0-36.0); MEAN CELL VOLUME 94.7 fl (80-96); MEAN PLT VOLUME 8.8 fl (7.5-11.1); MONO % 6.4 % (3.8-10.2); NEUT % 85.1 % (42.8-82.8); PLATELET COUNT 151 K/MM3 (134-434); RDW 19.9 % (11.6-15.6); WHITE BLOOD COUNT 21.4 K/mm3 (4.0-10.0)
[2019-10-26 08:51] LABS: CALCIUM 8.4 mg/dL (8.5-10.1); CREATININE 2.7 mg/dL (0.55-1.3); MAGNESIUM 1.7 mg/dL (1.8-2.4)
[2019-10-26 08:57] LABS: BLOOD UREA NITROGEN 104.7 mg/dL (7-18)
[2019-10-26 11:16] LABS: ANISOCYTOSIS 1+; MACROCYTOSIS 0; PLATELET ESTIMATE DECREASED
[2019-10-26] MEDS: LETROZOLE 2.5 MG TABLET (FP) PO SCH (11:26)
[2019-10-26] MEDS: hydrOXYzine PAMOATE 25 MG CAPSULE (FP) PO PRN (11:26)
[2019-10-26] MEDS: APIXABAN 2.5 MG TABLET PO SCH ×2 (11:27→21:27)
[2019-10-26] MEDS: CARVEDILOL 25 MG TABLET (FP) PO SCH ×2 (11:27→21:27)
[2019-10-26] MEDS: BACITRACIN 15 GM TUBE TOPICAL OINTMENT TP SCH (11:27)
[2019-10-26] MEDS: LACTOBACILLUS ACIDOPHILUS 1 TABLET PO SCH (11:27)
[2019-10-26] MEDS: TRIAMCINOLONE ACET 0.1% CREAM 15 GM TUBE TP SCH (11:28)
[2019-10-26] MEDS: LIDOCAINE 5% TOPICAL PATCH TP SCH (11:28)
[2019-10-26] MEDS: TRIAMCINOLONE ACET 0.1% 60 ML LOTION TP SCH ×2 (11:28→21:27)
[2019-10-26] MEDS: PANTOPRAZOLE SODIUM 40 MG VIAL IVPUSH SCH ×2 (11:29→21:27)
[2019-10-26] MEDS: ZINC OXIDE 20% TOPICAL OINTMENT 30 GM TUBE TP SCH (11:29)
[2019-10-26] MEDS: POLYETHYLENE GLYCOL 3350 119 GM BTL PO SCH ×2 (11:29→21:27)
[2019-10-26] MEDS ORDERED: INSULIN (NOVOLOG) ASPART 100 UNITS/ML 10ML VIAL ONE (11:54)
--- NOTE | 2019-10-26 13:28 | PN ---
Progress Note (short form) - Note Progress Note: Chief Complaint: sob History of Present Illness: no sob, dizzy, cp, palps. complains of itching. Current Medications Generic Name Dose Route Start Last Admin Trade Name Freq PRN Reason Stop Dose Admin Acetaminophen 650 mg 10/11/19 12:26 10/26/19 12:02 Tylenol - PO 650 mg Q6H PRN Administration PAIN LEVEL 6-10 Apixaban 2.5 mg 10/04/19 22:00 10/26/19 11:27 Eliquis - PO 2.5 mg BID [facility] Administration Bacitracin 1 applic 10/21/19 17:30 10/26/19 11:27 Bacitracin - TP 1 applic DAILY [facility] Administration Bisacodyl 10 mg 10/14/19 13:59 10/15/19 13:05 Dulcolax Suppository - HI 10 mg PRN PRN Administration CONSTIPATION Camphor/Menthol 1 applic 10/17/19 12:39 Sarna Anti-Itch - TP BID PRN FOR ITCHING Carvedilol 25 mg 10/23/19 09:26 10/26/19 11:27 Coreg - PO 25 mg BID [facility] Administration Diphenhydramine HCl 12.5 mg 10/21/19 11:01 10/26/19 05:42 Benadryl Injection - IVPUSH 12.5 mg Q4H PRN Administration FOR ITCHING Docusate Sodium 300 mg 10/01/19 22:00 10/25/19 21:45 Colace - PO Not Given HS [facility] Furosemide 80 mg 10/20/19 14:00 10/26/19 05:29 Lasix Injection - IVPUSH 80 mg TID [facility] Administration Hydroxyzine Pamoate 25 mg 10/15/19 21:24 10/26/19 11:26 Vistaril - PO 25 mg Q8H PRN Administration FOR ITCHING Insulin Aspart 1 vial 10/01/19 07:00 10/26/19 12:03 Novolog Vial Sliding Scale - SQ 2 units ACHS [facility] Administration Protocol Lactobacillus Acidophilus 1 tab 09/29/19 14:30 10/26/19 11:27 Bacid - PO 1 tab DAILY [facility] Administration Letrozole 2.5 mg 10/01/19 10:00 10/26/19 11:26 Femara - PO 2.5 mg DAILY [facility] Administration Levothyroxine Sodium 100 mcg 10/01/19 07:00 10/26/19 06:00 Synthroid - PO 100 mcg ACBK [facility] Administration Lidocaine 3 patch 10/20/19 10:00 10/26/19 11:28 Lidoderm Patch - TP 3 patch DAILY [facility] Administration Miscellaneous 1 each 10/13/19 22:00 10/25/19 21:46 Lidoderm Patch Removal MC 1 each DAILY@2200 [facility] Administration Multi-Ingredient Ointment 1 applic 10/25/19 14:00 10/26/19 11:29 Zinc Oxide TP 1 applic DAILY [facility] Administration Nitroglycerin 1 inch 10/03/19 14:26 10/26/19 12:03 Nitro-Bid 2% Paste - TD Not Given Q6HPO [facility] Nystatin 1 applic 10/18/19 18:00 10/26/19 12:03 Mycostatin Cream - TP 1 applic Q6HPO [facility] Administration Pantoprazole Sodium 40 mg 10/22/19 22:45 10/26/19 11:29 Protonix Iv IVPUSH 40 mg BID [facility] Administration Polyethylene Glycol 17 gm 10/01/19 10:00 10/26/19 11:29 Miralax (For Daily Use) - PO Not Given BID [facility] Triamcinolone Acetonide 1 applic 10/18/19 10:00 10/26/19 11:28 Aristocort 0.1% Cream - TP 1 applic DAILY [facility] Administration Triamcinolone Acetonide 1 applic 10/19/19 10:15 10/26/19 11:28 Aristocort 0.1% Lotion - TP 1 applic BID [facility] Administration Vital Signs Period Temp Pulse Resp BP Sys/Hernandez Pulse Ox Last 24 Hr 97.4 F-98.8 F 96-121 16-19 127-157/71-88 94-99 Constitutional: Yes: No Distress, Calm Eyes: No: Sclera Icterus HENT: No: Nasal Congestion Cardiovascular: Yes: Pulse Irregular, JVD, S1, S2, Other (PMI non diplaced). No: Gallop, Murmur Respiratory: Yes: Regular, CTA Bilaterally. No: Accessory Muscle Use Gastrointestinal: Yes: Normal Bowel Sounds, Soft. No: Tenderness Extremities: No: Cold, Cyanosis Edema: 1+ le edema bl Integumentary: No: Jaundice Neurological: Yes: Alert, Oriented (x3) Psychiatric: No: Agitated Assessment/Plan echo 03/2019 nl LV function, mild MR, mild TR, PASP at least 49 mmHg IMP/REC: Acute diastolic heart failure exacerbation: - recent echo nl LV function - no signs acs - holding aldactone - was on iv lasix but no sig improvement and cr worsened. It was rec'd that pt have HD but she declined so transitioned to po lasix, but now with vol build up and back on iv lasix. - renal fxn stable, resp status/edema reasonably compensated. pt considering HD still, in ongoing d/w dr georges. - seen by palliative care earlier this admit, wished to continue fighting - continue lasix 80 IV tid - cont nitrates for cardiorenal syndrome HTN: - bp stable - cont current meds crow on CKD: - Baseline creat from last admission is 2-2.5, elevated now, likely cardiorenal here - renal following PAF: -cont coreg for rate control -cont eliquis low dose (age, creatinine) anemia: -CKD contributing likely, baseline 8s -running 7s-8s, now guaiac + -would continue adjusted dose eliquis for now as doing, close monitoring of counts--if drops or + melena, will have to hold. she is likely too hi risk for GI scopes. liver mass: -heme/onc following
[2019-10-26] MEDS ORDERED: MAGNESIUM 2GM/50ML STERILE WATER IVPB IVPB ONE (13:48)
--- NOTE | 2019-10-26 13:52 | PN ---
Progress Note, Physician History of Present Illness: Pt seen and examined at bedside. She is awake and alert. She denies shortness of breath. - Current Medication List Current Medications: Active Medications Acetaminophen (Tylenol -) 650 mg PO Q6H PRN PRN Reason: PAIN LEVEL 6-10 Last Admin: 10/26/19 12:02 Dose: 650 mg Documented by: Apixaban (Eliquis -) 2.5 mg PO BID [facility] Last Admin: 10/26/19 11:27 Dose: 2.5 mg Documented by: Bacitracin (Bacitracin -) 1 applic TP DAILY [facility] Last Admin: 10/26/19 11:27 Dose: 1 applic Documented by: Bisacodyl (Dulcolax Suppository -) 10 mg DC PRN PRN PRN Reason: CONSTIPATION Last Admin: 10/15/19 13:05 Dose: 10 mg Documented by: Camphor/Menthol (Sarna Anti-Itch -) 1 applic TP BID PRN PRN Reason: FOR ITCHING Carvedilol (Coreg -) 25 mg PO BID [facility] Last Admin: 10/26/19 11:27 Dose: 25 mg Documented by: Diphenhydramine HCl (Benadryl Injection -) 12.5 mg IVPUSH Q4H PRN PRN Reason: FOR ITCHING Last Admin: 10/26/19 05:42 Dose: 12.5 mg Documented by: Docusate Sodium (Colace -) 300 mg PO HS [facility] Last Admin: 10/25/19 21:45 Dose: Not Given Documented by: Furosemide (Lasix Injection -) 80 mg IVPUSH TID [facility] Last Admin: 10/26/19 05:29 Dose: 80 mg Documented by: Hydroxyzine Pamoate (Vistaril -) 25 mg PO Q8H PRN PRN Reason: FOR ITCHING Last Admin: 10/26/19 11:26 Dose: 25 mg Documented by: Insulin Aspart (Novolog Vial Sliding Scale -) 1 vial SQ [facility]; Protocol Last Admin: 10/26/19 12:03 Dose: 2 units Documented by: Lactobacillus Acidophilus (Bacid -) 1 tab PO DAILY [facility] Last Admin: 10/26/19 11:27 Dose: 1 tab Documented by: Letrozole (Femara -) 2.5 mg PO DAILY [facility] Last Admin: 10/26/19 11:26 Dose: 2.5 mg Documented by: Levothyroxine Sodium (Synthroid -) 100 mcg PO ACBK [facility] Last Admin: 10/26/19 06:00 Dose: 100 mcg Documented by: Lidocaine (Lidoderm Patch -) 3 patch TP DAILY [facility] Last Admin: 10/26/19 11:28 Dose: 3 patch Documented by: Magnesium Sulfate (Magnesium Sulfate) 2 gm IVPB ONCE ONE Stop: 10/26/19 13:49 Miscellaneous (Lidoderm Patch Removal) 1 each MC DAILY@2200 [facility] Last Admin: 10/25/19 21:46 Dose: 1 each Documented by: Multi-Ingredient Ointment (Zinc Oxide) 1 applic TP DAILY [facility] Last Admin: 10/26/19 11:29 Dose: 1 applic Documented by: Nitroglycerin (Nitro-Bid 2% Paste -) 1 inch TD Q6HPO [facility] Last Admin: 10/26/19 12:03 Dose: Not Given Documented by: Nystatin (Mycostatin Cream -) 1 applic TP Q6HPO [facility] Last Admin: 10/26/19 12:03 Dose: 1 applic Documented by: Pantoprazole Sodium (Protonix Iv) 40 mg IVPUSH BID [facility] Last Admin: 10/26/19 11:29 Dose: 40 mg Documented by: Polyethylene Glycol (Miralax (For Daily Use) -) 17 gm PO BID [facility] Last Admin: 10/26/19 11:29 Dose: Not Given Documented by: Triamcinolone Acetonide (Aristocort 0.1% Cream -) 1 applic TP DAILY [facility] Last Admin: 10/26/19 11:28 Dose: 1 applic Documented by: Triamcinolone Acetonide (Aristocort 0.1% Lotion -) 1 applic TP BID [facility] Last Admin: 10/26/19 11:28 Dose: 1 applic Documented by: - Objective Vital Signs: Vital Signs Temperature 97.8 F 10/26/19 05:43 Pulse Rate 121 H 10/26/19 05:43 Respiratory Rate 18 10/26/19 05:43 Blood Pressure 131/71 10/26/19 05:43 O2 Sat by Pulse Oximetry (%) 94 L 10/26/19 10:00 Constitutional: Yes: Calm Eyes: Yes: Conjunctiva Clear HENT: Yes: Atraumatic Cardiovascular: Yes: S1, S2 Respiratory: Yes: CTA Bilaterally Gastrointestinal: Yes: Soft Genitourinary: Yes: WNL Musculoskeletal: Yes: WNL Edema: Yes Edema: LLE: 2+, RLE: 2+ Integumentary: Yes: Erythema, Rash Neurological: Yes: Oriented Psychiatric: Yes: Oriented Labs: CBC, BMP 10/26/19 06:45 10/26/19 06:45 INR, PTT INR 2.02 (0.83-1.09) H 10/20/19 07:24 Assessment/Plan Current Medications Generic Name Dose Route Start Last Admin Trade Name Freq PRN Reason Stop Dose Admin Acetaminophen 650 mg 10/11/19 12:26 10/26/19 12:02 Tylenol - PO 650 mg Q6H PRN Administration PAIN LEVEL 6-10 Apixaban 2.5 mg 10/04/19 22:00 10/26/19 11:27 Eliquis - PO 2.5 mg BID [facility] Administration Bacitracin 1 applic 10/21/19 17:30 10/26/19 11:27 Bacitracin - TP 1 applic DAILY [facility] Administration Bisacodyl 10 mg 10/14/19 13:59 10/15/19 13:05 Dulcolax Suppository - DC 10 mg PRN PRN Administration CONSTIPATION Camphor/Menthol 1 applic 10/17/19 12:39 Sarna Anti-Itch - TP BID PRN FOR ITCHING Carvedilol 25 mg 10/23/19 09:26 10/26/19 11:27 Coreg - PO 25 mg BID [facility] Administration Diphenhydramine HCl 12.5 mg 10/21/19 11:01 10/26/19 05:42 Benadryl Injection - IVPUSH 12.5 mg Q4H PRN Administration FOR ITCHING Docusate Sodium 300 mg 10/01/19 22:00 10/25/19 21:45 Colace - PO Not Given HS [facility] Furosemide 80 mg 10/20/19 14:00 10/26/19 05:29 Lasix Injection - IVPUSH 80 mg TID [facility] Administration Hydroxyzine Pamoate 25 mg 10/15/19 21:24 10/26/19 11:26 Vistaril - PO 25 mg Q8H PRN Administration FOR ITCHING Insulin Aspart 1 vial 10/01/19 07:00 10/26/19 12:03 Novolog Vial Sliding Scale - SQ 2 units ACHS [facility] Administration Protocol Lactobacillus Acidophilus 1 tab 09/29/19 14:30 10/26/19 11:27 Bacid - PO 1 tab DAILY [facility] Administration Letrozole 2.5 mg 10/01/19 10:00 10/26/19 11:26 Femara - PO 2.5 mg DAILY [facility] Administration Levothyroxine Sodium 100 mcg 10/01/19 07:00 10/26/19 06:00 Synthroid - PO 100 mcg ACBK [facility] Administration Lidocaine 3 patch 10/20/19 10:00 10/26/19 11:28 Lidoderm Patch - TP 3 patch DAILY [facility] Administration Magnesium Sulfate 2 gm 10/26/19 13:48 Magnesium Sulfate IVPB 10/26/19 13:49 ONCE ONE Miscellaneous 1 each 10/13/19 22:00 10/25/19 21:46 Lidoderm Patch Removal MC 1 each DAILY@2200 [facility] Administration Multi-Ingredient Ointment 1 applic 10/25/19 14:00 10/26/19 11:29 Zinc Oxide TP 1 applic DAILY [facility] Administration Nitroglycerin 1 inch 10/03/19 14:26 10/26/19 12:03 Nitro-Bid 2% Paste - TD Not Given Q6HPO [facility] Nystatin 1 applic 10/18/19 18:00 10/26/19 12:03 Mycostatin Cream - TP 1 applic Q6HPO [facility] Administration Pantoprazole Sodium 40 mg 10/22/19 22:45 10/26/19 11:29 Protonix Iv IVPUSH 40 mg BID [facility] Administration Polyethylene Glycol 17 gm 10/01/19 10:00 10/26/19 11:29 Miralax (For Daily Use) - PO Not Given BID [facility] Triamcinolone Acetonide 1 applic 10/18/19 10:00 10/26/19 11:28 Aristocort 0.1% Cream - TP 1 applic DAILY [facility] Administration Triamcinolone Acetonide 1 applic 10/19/19 10:15 10/26/19 11:28 Aristocort 0.1% Lotion - TP 1 applic BID [facility] Administration Impression 1. proteinuria 2. hypothyroid 3. HTN 4. DM 5. fluid overload 6. breast cancer 7. anemia 8. CKD 9. CHF 10. hyponatremia 11. hypokalemia 12. MAURICE Plan - cont lasix - will give dose of ethacrynic acid - monitor volume status - renal function stable - restrict fluid intake - discussed with cardio - will follow
[2019-10-26] MEDS ORDERED: ETHACRYNIC ACID 25 MG TABLET PO SCH (14:00)
--- NOTE | 2019-10-26 15:44 | PN ---
Progress Note (short form) - Note Progress Note: Palliative care f/up 89 y/o female with PMHx of diastolic CHF, a-fib (on Eliquis), CKD, breast cancer s/p left breast lumpectomy and radiation in 2013, myelodysplasia, IDDM type 2, hypothyroidism, HLD, CVA, and GERD who was admitted to [facility] 09/23 with constipation, SOB, b/l leg swelling and nausea for "weeks" and back pain for "several days." Elissa has been in and out of hospitals and nursing homes this past year and she has been bedbound since February of last year. A CT of the abdomen revealed a 4 cm L hepatic lobe hypodense lesion suspicious for metastatic disease as well as a 2.[address] enlargement and enlarged retroperitoneal nodes. Very elevated BNP and edematous- s/p aggressive diuresis with improvement in edema but worsening renal function. 2 hepatic masses seen on USG liver- 5.7 cm and 4 cm respectively. She has been seen by Haem- onc- cancer markers have been sent- presumed metastatic breast cancer- depending on test results there might be some modification in breast cancer hormonal treatment but pt is not a candidate for aggressive chemo/ sx/ radiation. She was also diagnosed with MDS/ AML or MPN as per haem- onc. Lumbar CT showed multilevel DJD, no neoplastic disease. HD has been recommended but patient refused it but does not wish to consider hospice/ comfort care. She was transitioned to po lasix which failed and she is back on iv lasix. with lidoderm patch for back pain, oxycodone discontinued + leucocytosis- with eosinophilia and diffuse rash- ? allergic reaction to hydralazine which has been discontinued- pt received iv steroids and is on topical steroids and antihistamines with improvement in rash and itching she has been evaluated by derm and skin bx results are pending has 2 PU in sacral area which are causing her back pain and discomfort bed positioning appears to be her major issue as per patient- she does not want to be turned and repositioned because of back pain but needs it because of sacral PU + leucocytosis/ thrombocytopenia suspicious for MPD ( leukemia ruled out) VSS haemodynamically stable AAO x 3 NAD decreased appetite denies SOB appears more comfortable today dependent for all ADLs, body rash appears to be better LE 2+ edema today but looks a little better today Prognosis guarded metastatic breast cancer- switch to FASLODEX 500MG IM EVERY 2 WEEKs , and aromasin 25mg po daily- will f/up with onc after dc. 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 Generalized rash- w/up in progress, cont antihistamines, topical steroids Persistent fluid overload with impaired cardiorenal status - nl LV function on recent echo with severely dilated atria and severe pulm HTN- consider using torsemide with metolazone while monitoring potassium closely in an attempt to take her off iv lasix and dc planning. Dysphagia- on soft diet with thin liquids. Patient remains a full code and does not want hospice/ comfort care. She would be appropriate for comfort/ hospice care given her multiple comorbidities, metastatic cancer, debilitated state with diastolic CHF and CKD approaching end stage, pressure ulcers. Would continue pain meds, diuretics. She will be appropriate for SNF on palliative care. Will follow. Problem List - Problems (1) Acute diastolic (congestive) heart failure Code(s): I50.31 - ACUTE DIASTOLIC (CONGESTIVE) HEART FAILURE (2) Acute kidney injury superimposed on CKD Code(s): N17.9 - ACUTE KIDNEY FAILURE, UNSPECIFIED; N18.9 - CHRONIC KIDNEY DISEASE, UNSPECIFIED (3) Breast cancer Code(s): C50.919 - MALIGNANT NEOPLASM OF UNSP SITE OF UNSPECIFIED FEMALE BREAST (4) History of CVA with residual deficit Code(s): I69.30 - UNSPECIFIED SEQUELAE OF CEREBRAL INFARCTION (5) Renal disease Code(s): N28.9 - DISORDER OF KIDNEY AND URETER, UNSPECIFIED
[2019-10-26] MEDS: ALBUMIN HUMAN 25% 100 ML VIAL IVPB SCH ×2 (16:34→22:39)
--- NOTE | 2019-10-26 19:26 | PN ---
Physical Exam: SUBJECTIVE: Patient seen and examined bedside. Very itchy. Says she didn't sleep well last night. Currently not even using her O2 NC. No events overnight. OBJECTIVE: Vital Signs Period Temp Pulse Resp BP Sys/Hernandez Pulse Ox Last 24 Hr 97.6 F-98.8 F 94-121 18-18 127-150/71-83 94-99 GENERAL: The patient is awake, alert, and oriented, in no acute distress. LUNGS: Breath sounds equal with BL crackles. Comfortable on RA HEART: RRR ABDOMEN: Soft, nontender, nondistended. EXTREMITIES: BL + 2 pitting edema. Sacral decubitus ulcer stage 2 looks better with only a few skin breaks now. SKIN: Patient's erythema keeps improving. Patient has more peeling skin today. Laboratory Results - last 24 hr 10/21/19 10/23/19 10/25/19 06:25 11:52 22:15 WBC RBC Hgb Hct MCV MCH MCHC RDW Plt Count MPV Absolute Neuts (auto) Neutrophils % Neutrophils % (Manual) Band Neutrophils % Lymphocytes % Lymphocytes % (Manual) Monocytes % Monocytes % (Manual) Eosinophils % Eosinophils % (Manual) Basophils % Basophils % (Manual) Myelocytes % (Man) Promyelocytes % (Man) Blast Cells % (Manual) Nucleated RBC % Metamyelocytes Hypochromia Platelet Estimate Polychromasia Poikilocytosis Anisocytosis Microcytosis Macrocytosis Sodium Potassium Chloride Carbon Dioxide Anion Gap BUN Creatinine Est GFR (CKD-EPI)AfAm Est GFR (CKD-EPI)NonAf POC Glucometer 179 Random Glucose Calcium Phosphorus Magnesium Histone Antibodies 0.6 Blood Type O NEGATIVE Antibody Screen Negative Crossmatch See Detail 10/26/19 10/26/19 10/26/19 05:49 06:45 06:45 WBC 21.4 H RBC 2.90 L Hgb 8.6 L Hct 27.5 L MCV 94.7 MCH 29.6 MCHC 31.3 L RDW 19.9 H Plt Count 151 MPV 8.8 Absolute Neuts (auto) 18.2 H Neutrophils % 85.1 H Neutrophils % (Manual) 71.0 Band Neutrophils % 4.0 Lymphocytes % 3.7 L Lymphocytes % (Manual) 6.0 L D Monocytes % 6.4 Monocytes % (Manual) 4 Eosinophils % 4.3 Eosinophils % (Manual) 2.0 D Basophils % 0.5 Basophils % (Manual) 0.0 Myelocytes % (Man) 9 H D Promyelocytes % (Man) 1 D Blast Cells % (Manual) 0 Nucleated RBC % 0 Metamyelocytes 3 H D Hypochromia 0 Platelet Estimate Decreased Polychromasia 1+ Poikilocytosis 0 Anisocytosis 1+ Microcytosis 1+ Macrocytosis 0 Sodium 137 Potassium 4.0 Chloride 101 Carbon Dioxide 23 Anion Gap 13 BUN 104.7 H* Creatinine 2.7 H Est GFR (CKD-EPI)AfAm 17.41 Est GFR (CKD-EPI)NonAf 15.02 POC Glucometer 163 Random Glucose 159 H Calcium 8.4 L Phosphorus 3.0 Magnesium 1.7 L Histone Antibodies Blood Type Antibody Screen Crossmatch 10/26/19 10/26/19 11:51 16:57 WBC RBC Hgb Hct MCV MCH MCHC RDW Plt Count MPV Absolute Neuts (auto) Neutrophils % Neutrophils % (Manual) Band Neutrophils % Lymphocytes % Lymphocytes % (Manual) Monocytes % Monocytes % (Manual) Eosinophils % Eosinophils % (Manual) Basophils % Basophils % (Manual) Myelocytes % (Man) Promyelocytes % (Man) Blast Cells % (Manual) Nucleated RBC % Metamyelocytes Hypochromia Platelet Estimate Polychromasia Poikilocytosis Anisocytosis Microcytosis Macrocytosis Sodium Potassium Chloride Carbon Dioxide Anion Gap BUN Creatinine Est GFR (CKD-EPI)AfAm Est GFR (CKD-EPI)NonAf POC Glucometer 161 140 Random Glucose Calcium Phosphorus Magnesium Histone Antibodies Blood Type Antibody Screen Crossmatch Active Medications Generic Name Dose Route Start Last Admin Trade Name Freq PRN Reason Stop Dose Admin Acetaminophen 650 mg 10/11/19 12:26 10/26/19 12:02 Tylenol - PO 650 mg Q6H PRN Administration PAIN LEVEL 6-10 Albumin Human 25 gm 10/26/19 15:00 10/26/19 16:34 Albumin Human 25% - IVPB 10/26/19 21:01 25 gm Q6H [facility] Administration Apixaban 2.5 mg 10/04/19 22:00 10/26/19 11:27 Eliquis - PO 2.5 mg BID [facility] Administration Bacitracin 1 applic 10/21/19 17:30 10/26/19 11:27 Bacitracin - TP 1 applic DAILY [facility] Administration Bisacodyl 10 mg 10/14/19 13:59 10/15/19 13:05 Dulcolax Suppository - CO 10 mg PRN PRN Administration CONSTIPATION Camphor/Menthol 1 applic 10/17/19 12:39 Sarna Anti-Itch - TP BID PRN FOR ITCHING Carvedilol 25 mg 10/23/19 09:26 10/26/19 11:27 Coreg - PO 25 mg BID [facility] Administration Diphenhydramine HCl 12.5 mg 10/21/19 11:01 10/26/19 05:42 Benadryl Injection - IVPUSH 12.5 mg Q4H PRN Administration FOR ITCHING Docusate Sodium 300 mg 10/01/19 22:00 10/25/19 21:45 Colace - PO Not Given HS [facility] Furosemide 80 mg 10/20/19 14:00 10/26/19 16:34 Lasix Injection - IVPUSH 80 mg TID [facility] Administration Hydroxyzine Pamoate 25 mg 10/15/19 21:24 10/26/19 11:26 Vistaril - PO 25 mg Q8H PRN Administration FOR ITCHING Insulin Aspart 1 vial 10/01/19 07:00 10/26/19 17:34 Novolog Vial Sliding Scale - SQ Not Given ACHS [facility] Protocol Lactobacillus Acidophilus 1 tab 09/29/19 14:30 10/26/19 11:27 Bacid - PO 1 tab DAILY [facility] Administration Letrozole 2.5 mg 10/01/19 10:00 10/26/19 11:26 Femara - PO 2.5 mg DAILY [facility] Administration Levothyroxine Sodium 100 mcg 10/01/19 07:00 10/26/19 06:00 Synthroid - PO 100 mcg ACBK [facility] Administration Lidocaine 3 patch 10/20/19 10:00 10/26/19 11:28 Lidoderm Patch - TP 3 patch DAILY [facility] Administration Miscellaneous 1 each 10/13/19 22:00 10/25/19 21:46 Lidoderm Patch Removal MC 1 each DAILY@2200 [facility] Administration Multi-Ingredient Ointment 1 applic 10/25/19 14:00 10/26/19 11:29 Zinc Oxide TP 1 applic DAILY [facility] Administration Nitroglycerin 1 inch 10/03/19 14:26 10/26/19 18:21 Nitro-Bid 2% Paste - TD 1 inch Q6HPO [facility] Administration Nystatin 1 applic 10/18/19 18:00 10/26/19 18:21 Mycostatin Cream - TP 1 applic Q6HPO [facility] Administration Pantoprazole Sodium 40 mg 10/22/19 22:45 10/26/19 11:29 Protonix Iv IVPUSH 40 mg BID [facility] Administration Polyethylene Glycol 17 gm 10/01/19 10:00 10/26/19 11:29 Miralax (For Daily Use) - PO Not Given BID [facility] Triamcinolone Acetonide 1 applic 10/18/19 10:00 10/26/19 11:28 Aristocort 0.1% Cream - TP 1 applic DAILY [facility] Administration Triamcinolone Acetonide 1 applic 10/19/19 10:15 10/26/19 11:28 Aristocort 0.1% Lotion - TP 1 applic BID [facility] Administration ASSESSMENT/PLAN: 9F yo female with pmhx of diastolic CHF, a-fib (on Eliquis), CKD, breast cancer s/p mastectomy, myelodysplasia, IDDM type 2, hypothyroidism, HLD, CVA, and GERD presents with b/l leg swelling and nausea for "weeks" and back pain for several days admitted for acute CHF exacerbation. Breast Cancer & MDS w/new hepatic lobe lesions - Onc consulted- Dr. Sullivan CA 27-29 were elevated - Dr. Sullivan saw the patient yesterday recommends to D/C letrozole and start either faslodex or exemestane - patient has chronic pain. Palliative care recs: attempt low dose morphine- 0.5 mg ivp q6-8 h prn and neurontin 100 mg po qhs Diffuse erythematous Rash of unknown origin - improving -Consulted Dr. Maria for Rheumatology for possible vasculitis. Skin biopsy results still pending - Possible sulfa rash from lasix v angle syndrome from hydralazine, d/c hydralazine, but cannot stop lasix - 12.5 mg IV benedryl q4 hr for itching - Dr. Reynaga hydroxyzine 25mg po Q8h for itching MAURICE on CKD; BUN/Cr stable -serial BMPs to monitor Cr - Dr. Sequeira patient does not need HD at this time consider high dose PO lasixs or toresemide when ready to d/c Stage 2 sacral ulcer; not infected - Continue zinc daily with padding - Frequent turning and positioning Anemia; likely multi-factorial in setting of CKD, myelodysplasia - Transfusion 1 PRBC on 10/15 - PT had + FOBT on Friday, GI consulted (Dr. Leung) no evidence of overt GI bleeding at this time 1 unit pRBCs given (10/22) - Hbg has been stable Acute on Chronic Diastolic CHF Exacerbation; - Daily weights, I/Os, 2gm Na diet w/ fluid restriction - IV Lasixs - Cont 2 L O2 NC - Repeat Echo (10/03) showed LV wnl, EF 55-60% ESBL UTI - Has no urinary symptoms - UCx +ESBL Kleb pneumo; repeat UCx +Group D strep/enterococcus - Per ID, Ertapenem 500 mg QD completed today. Started on ZYVOX 600MG PO BID X 3D completed - 10/21 patient Urine cx came back + for ESBL. Hypothyroidism; Cont home meds: Synthroid 100 Prophylaxis -DVT: Cont home Eliquis 2.5 BID -GI: Cont home Protonix 40 FEN On soft diet with thin liquids DISPO: - patient wants everything done that can be done. FULL CODE Visit type - Emergency Visit Emergency Visit: Yes ED Registration Date: 09/24/19 Care time: The patient presented to the Emergency Department on the above date and was hospitalized for further evaluation of their emergent condition. - New Patient This patient is new to me today: No - Critical Care Critical Care patient: No - Discharge Referral Referred to [facility] Med P.C.: No - Medication Review Med list reviewed for High Risk Meds patients 65 and older: Yes ATTENDING PHYSICIAN STATEMENT I saw and evaluated the patient. I reviewed the resident's note and discussed the case with the resident. I agree with the resident's findings and plan as documented. SUBJECTIVE: OBJECTIVE: ASSESSMENT AND PLAN:
--- NOTE | 2019-10-26 19:35 | PN ---
Teaching Attending Note Name of Resident: Kylah Denton ATTENDING PHYSICIAN STATEMENT I saw and evaluated the patient. I reviewed the resident's note and discussed the case with the resident. I agree with the resident's findings and plan as documented. SUBJECTIVE: seen around 1 pm . no pain . itchy. no SOB . OBJECTIVE: NAD, awake, alert. CV: RRR Lungs: minimal crackles at bases bilaterally Ext: 2+ edema on legs and ankles. R upper monique superficial wounds at site of skin Bx with clotted blood covering. No surrounding erythema . 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 no discharge noted ASSESSMENT AND PLAN: 89 y/o lady with h/o diastolic CHF, a-fib (on Eliquis), CKD, breast cancer s/p mastectomy, myelodysplasia, IDDM type 2, hypothyroidism, HLD, CVA, and GERD who presented with SOB adn LE edema and was diagnosed with D CHF exacerbation Acute on chronic diastolic heart failure : improved ESBL producing Klebsiealla complicated UTI/pyelonephritis : treated MAURICE on CKD : improved Liver mass retroperitoneal LAP b/l adrenal nodules h/o MDS chronic normocytic anemia persistent leukocytosis prolonged QTC hyponatremia : resolved high AG metabolic acidosis :resolved prolonged QTC h/o A fib Stage 2 sacral decubiti Maculopapular rash Eosinophilia Plan: - follow rash Biopsy - cont anti-histamin - cont lasix . given etacrinic acid today - cont to hold HZn and spironolactone - monitor off Abx -montiro H&H - cont eliqis - cont coreg - frequent turning. cont air mattress - cont lotrezol . both suggested agents , are not available in house.at ri will stop lotrezole and have her f/u with heme/onc for treatment HLOC ASSESSMENT AND PLAN:
[2019-10-26] MEDS: LIDOCAINE PATCH REMOVAL MC SCH (21:27)
[2019-10-26] MEDS: DOCUSATE SODIUM 100 MG CAPSULE (FP) PO SCH (21:27)
[2019-10-27] MEDS ORDERED: PT OWN MED DRAWER 7, Y5N ONE ×3 (00:49→11:20)
[2019-10-27] MEDS: hydrOXYzine PAMOATE 25 MG CAPSULE (FP) PO PRN (00:49)
[2019-10-27] MEDS: LEVOTHYROXINE NA 100 MCG TABLET (FP) PO SCH (06:17)
[2019-10-27] MEDS: FUROSEMIDE 40 MG/4 ML INJECTABLE VIAL IVPUSH SCH ×3 (06:17→21:05)
[2019-10-27] MEDS: NITROGLYCERIN 2% OINTMENT - 1GM PACKET TD SCH ×4 (06:17→23:41)
[2019-10-27] MEDS: NYSTATIN 100,000 UNIT/GM TOPICAL CREAM 15 GM TUBE TP SCH ×3 (06:17→21:05)
[2019-10-27] MEDS: INSULIN SLIDING SCALE (NOVOLOG) 1 VIAL SQ SCH ×4 (06:17→21:05)
[2019-10-27 08:36] LABS: HEMATOCRIT 27.5 % (32.4-45.2); HEMOGLOBIN 8.6 GM/dL (10.7-15.3); MCH 29.8 pg (25.7-33.7); MCHC 31.1 g/dl (32.0-36.0); MEAN CELL VOLUME 95.8 fl (80-96); MEAN PLT VOLUME 8.9 fl (7.5-11.1); PLATELET COUNT 142 K/MM3 (134-434); RBC 2.87 M/mm3 (3.60-5.2); RDW 19.9 % (11.6-15.6); WHITE BLOOD COUNT 20.2 K/mm3 (4.0-10.0)
[2019-10-27 09:10] LABS: ALBUMIN 2.9 g/dl (3.4-5.0); BILIRUBIN,TOTAL 0.7 mg/dL (0.2-1); CALCIUM 8.6 mg/dL (8.5-10.1); CREATININE 2.7 mg/dL (0.55-1.3); MAGNESIUM 2.2 mg/dL (1.8-2.4); PHOSPHOROUS 3.6 mg/dL (2.5-4.9); POTASSIUM 3.8 mmol/L (3.5-5.1); TOT PROT 6.5 g/dl (6.4-8.2)
[2019-10-27 09:15] LABS: BLOOD UREA NITROGEN 107.1 mg/dL (7-18)
[2019-10-27] MEDS: APIXABAN 2.5 MG TABLET PO SCH ×2 (09:57→21:05)
[2019-10-27] MEDS: TRIAMCINOLONE ACET 0.1% CREAM 15 GM TUBE TP SCH (09:57)
[2019-10-27] MEDS: CARVEDILOL 25 MG TABLET (FP) PO SCH ×2 (09:57→21:04)
[2019-10-27] MEDS: LACTOBACILLUS ACIDOPHILUS 1 TABLET PO SCH (09:57)
[2019-10-27] MEDS: BACITRACIN 15 GM TUBE TOPICAL OINTMENT TP SCH (09:57)
[2019-10-27] MEDS: TRIAMCINOLONE ACET 0.1% 60 ML LOTION TP SCH ×2 (09:57→21:05)
[2019-10-27] MEDS: LIDOCAINE 5% TOPICAL PATCH TP SCH (09:58)
[2019-10-27] MEDS: PANTOPRAZOLE SODIUM 40 MG VIAL IVPUSH SCH ×2 (09:59→21:06)
[2019-10-27] MEDS: ZINC OXIDE 20% TOPICAL OINTMENT 30 GM TUBE TP SCH ×2 (09:59→11:23)
[2019-10-27] MEDS: POLYETHYLENE GLYCOL 3350 119 GM BTL PO SCH ×2 (09:59→21:05)
[2019-10-27] MEDS: LETROZOLE 2.5 MG TABLET (FP) PO SCH (11:22)
[2019-10-27] MEDS ORDERED: INSULIN (NOVOLOG) ASPART 100 UNITS/ML 10ML VIAL ONE ×2 (11:59→20:40)
--- NOTE | 2019-10-27 12:12 | PN ---
Progress Note, Physician History of Present Illness: Pt seen and examined at bedside. She is awake and alert. - Current Medication List Current Medications: Active Medications Acetaminophen (Tylenol -) 650 mg PO Q6H PRN PRN Reason: PAIN LEVEL 6-10 Last Admin: 10/26/19 12:02 Dose: 650 mg Documented by: Apixaban (Eliquis -) 2.5 mg PO BID [facility] Last Admin: 10/27/19 09:57 Dose: 2.5 mg Documented by: Bacitracin (Bacitracin -) 1 applic TP DAILY [facility] Last Admin: 10/27/19 09:57 Dose: 1 applic Documented by: Bisacodyl (Dulcolax Suppository -) 10 mg FL PRN PRN PRN Reason: CONSTIPATION Last Admin: 10/15/19 13:05 Dose: 10 mg Documented by: Camphor/Menthol (Sarna Anti-Itch -) 1 applic TP BID PRN PRN Reason: FOR ITCHING Carvedilol (Coreg -) 25 mg PO BID [facility] Last Admin: 10/27/19 09:57 Dose: 25 mg Documented by: Docusate Sodium (Colace -) 300 mg PO HS [facility] Last Admin: 10/26/19 21:27 Dose: Not Given Documented by: Furosemide (Lasix Injection -) 80 mg IVPUSH TID [facility] Last Admin: 10/27/19 06:17 Dose: 80 mg Documented by: Hydroxyzine Pamoate (Vistaril -) 25 mg PO Q8H PRN PRN Reason: FOR ITCHING Last Admin: 10/27/19 00:49 Dose: 25 mg Documented by: Insulin Aspart (Novolog Vial Sliding Scale -) 1 vial SQ [facility]; Protocol Last Admin: 10/27/19 12:05 Dose: Not Given Documented by: Lactobacillus Acidophilus (Bacid -) 1 tab PO DAILY [facility] Last Admin: 10/27/19 09:57 Dose: 1 tab Documented by: Letrozole (Femara -) 2.5 mg PO DAILY [facility] Last Admin: 10/27/19 11:22 Dose: 2.5 mg Documented by: Levothyroxine Sodium (Synthroid -) 100 mcg PO ACBK [facility] Last Admin: 10/27/19 06:17 Dose: 100 mcg Documented by: Lidocaine (Lidoderm Patch -) 3 patch TP DAILY [facility] Last Admin: 10/27/19 09:58 Dose: 3 patch Documented by: Miscellaneous (Lidoderm Patch Removal) 1 each MC DAILY@2200 [facility] Last Admin: 10/26/19 21:27 Dose: 1 each Documented by: Multi-Ingredient Ointment (Zinc Oxide) 1 applic TP DAILY [facility] Last Admin: 10/27/19 11:23 Dose: 1 applic Documented by: Nitroglycerin (Nitro-Bid 2% Paste -) 1 inch TD Q6HPO [facility] Last Admin: 10/27/19 12:05 Dose: Not Given Documented by: Nystatin (Mycostatin Cream -) 1 applic TP BID [facility] Last Admin: 10/27/19 11:22 Dose: 1 applic Documented by: Pantoprazole Sodium (Protonix Iv) 40 mg IVPUSH BID [facility] Last Admin: 10/27/19 09:59 Dose: 40 mg Documented by: Polyethylene Glycol (Miralax (For Daily Use) -) 17 gm PO BID [facility] Last Admin: 10/27/19 09:59 Dose: Not Given Documented by: Triamcinolone Acetonide (Aristocort 0.1% Cream -) 1 applic TP DAILY [facility] Last Admin: 10/27/19 09:57 Dose: 1 applic Documented by: Triamcinolone Acetonide (Aristocort 0.1% Lotion -) 1 applic TP BID [facility] Last Admin: 10/27/19 09:57 Dose: 1 applic Documented by: - Objective Vital Signs: Vital Signs Temperature 98.1 F 10/27/19 09:08 Pulse Rate 87 10/27/19 09:08 Respiratory Rate 18 10/27/19 09:08 Blood Pressure 127/61 10/27/19 09:08 O2 Sat by Pulse Oximetry (%) 95 10/27/19 09:08 Constitutional: Yes: Calm Eyes: Yes: Conjunctiva Clear HENT: Yes: Atraumatic Cardiovascular: Yes: S1, S2 Respiratory: Yes: CTA Bilaterally Gastrointestinal: Yes: Soft Genitourinary: Yes: Incontinence Edema: Yes Edema: LLE: 2+, RLE: 2+ Neurological: Yes: Oriented Psychiatric: Yes: Oriented Labs: CBC, BMP 10/27/19 07:50 10/27/19 07:50 INR, PTT INR 2.02 (0.83-1.09) H 10/20/19 07:24 Assessment/Plan Current Medications Generic Name Dose Route Start Last Admin Trade Name Freq PRN Reason Stop Dose Admin Acetaminophen 650 mg 10/11/19 12:26 10/26/19 12:02 Tylenol - PO 650 mg Q6H PRN Administration PAIN LEVEL 6-10 Apixaban 2.5 mg 10/04/19 22:00 10/27/19 09:57 Eliquis - PO 2.5 mg BID [facility] Administration Bacitracin 1 applic 10/21/19 17:30 10/27/19 09:57 Bacitracin - TP 1 applic DAILY [facility] Administration Bisacodyl 10 mg 10/14/19 13:59 10/15/19 13:05 Dulcolax Suppository - FL 10 mg PRN PRN Administration CONSTIPATION Camphor/Menthol 1 applic 10/17/19 12:39 Sarna Anti-Itch - TP BID PRN FOR ITCHING Carvedilol 25 mg 10/23/19 09:26 10/27/19 09:57 Coreg - PO 25 mg BID [facility] Administration Docusate Sodium 300 mg 10/01/19 22:00 10/26/19 21:27 Colace - PO Not Given HS [facility] Furosemide 80 mg 10/20/19 14:00 10/27/19 06:17 Lasix Injection - IVPUSH 80 mg TID [facility] Administration Hydroxyzine Pamoate 25 mg 10/15/19 21:24 10/27/19 00:49 Vistaril - PO 25 mg Q8H PRN Administration FOR ITCHING Insulin Aspart 1 vial 10/01/19 07:00 10/27/19 12:05 Novolog Vial Sliding Scale - SQ Not Given ACHS [facility] Protocol Lactobacillus Acidophilus 1 tab 09/29/19 14:30 10/27/19 09:57 Bacid - PO 1 tab DAILY [facility] Administration Letrozole 2.5 mg 10/01/19 10:00 10/27/19 11:22 Femara - PO 2.5 mg DAILY [facility] Administration Levothyroxine Sodium 100 mcg 10/01/19 07:00 10/27/19 06:17 Synthroid - PO 100 mcg ACBK [facility] Administration Lidocaine 3 patch 10/20/19 10:00 10/27/19 09:58 Lidoderm Patch - TP 3 patch DAILY [facility] Administration Miscellaneous 1 each 10/13/19 22:00 10/26/19 21:27 Lidoderm Patch Removal MC 1 each DAILY@2200 [facility] Administration Multi-Ingredient Ointment 1 applic 10/27/19 10:14 10/27/19 11:23 Zinc Oxide TP 1 applic DAILY [facility] Administration Nitroglycerin 1 inch 10/03/19 14:26 10/27/19 12:05 Nitro-Bid 2% Paste - TD Not Given Q6HPO [facility] Nystatin 1 applic 10/27/19 10:15 10/27/19 11:22 Mycostatin Cream - TP 1 applic BID [facility] Administration Pantoprazole Sodium 40 mg 10/22/19 22:45 10/27/19 09:59 Protonix Iv IVPUSH 40 mg BID [facility] Administration Polyethylene Glycol 17 gm 10/01/19 10:00 10/27/19 09:59 Miralax (For Daily Use) - PO Not Given BID [facility] Triamcinolone Acetonide 1 applic 10/18/19 10:00 10/27/19 09:57 Aristocort 0.1% Cream - TP 1 applic DAILY [facility] Administration Triamcinolone Acetonide 1 applic 10/19/19 10:15 10/27/19 09:57 Aristocort 0.1% Lotion - TP 1 applic BID [facility] Administration Impression 1. proteinuria 2. hypothyroid 3. HTN 4. DM 5. fluid overload 6. breast cancer 7. anemia 8. CKD 9. CHF 10. hyponatremia 11. hypokalemia 12. MAURICE Plan - cont lasix 80 tid - will give albumin - weight is down to 204 from about 216 - restrict fluid intake - renal function stable - discussed with cardio - will follow
--- NOTE | 2019-10-27 12:34 | PN ---
Progress Note (short form) - Note Progress Note: Chief Complaint: sob History of Present Illness: no sob, dizzy, cp, palps Current Medications Generic Name Dose Route Start Last Admin Trade Name Freq PRN Reason Stop Dose Admin Acetaminophen 650 mg 10/11/19 12:26 10/26/19 12:02 Tylenol - PO 650 mg Q6H PRN Administration PAIN LEVEL 6-10 Albumin Human 25 gm 10/27/19 13:00 Albumin Human 25% - IVPB 10/27/19 13:01 ONCE ONE Apixaban 2.5 mg 10/04/19 22:00 10/27/19 09:57 Eliquis - PO 2.5 mg BID [facility] Administration Bacitracin 1 applic 10/21/19 17:30 10/27/19 09:57 Bacitracin - TP 1 applic DAILY [facility] Administration Bisacodyl 10 mg 10/14/19 13:59 10/15/19 13:05 Dulcolax Suppository - [place] 10 mg PRN PRN Administration CONSTIPATION Camphor/Menthol 1 applic 10/17/19 12:39 Sarna Anti-Itch - TP BID PRN FOR ITCHING Carvedilol 25 mg 10/23/19 09:26 10/27/19 09:57 Coreg - PO 25 mg BID [facility] Administration Docusate Sodium 300 mg 10/01/19 22:00 10/26/19 21:27 Colace - PO Not Given HS [facility] Furosemide 80 mg 10/20/19 14:00 10/27/19 06:17 Lasix Injection - IVPUSH 80 mg TID [facility] Administration Hydroxyzine Pamoate 25 mg 10/15/19 21:24 10/27/19 00:49 Vistaril - PO 25 mg Q8H PRN Administration FOR ITCHING Insulin Aspart 1 vial 10/01/19 07:00 10/27/19 12:05 Novolog Vial Sliding Scale - SQ Not Given ACHS [facility] Protocol Lactobacillus Acidophilus 1 tab 09/29/19 14:30 10/27/19 09:57 Bacid - PO 1 tab DAILY [facility] Administration Letrozole 2.5 mg 10/01/19 10:00 10/27/19 11:22 Femara - PO 2.5 mg DAILY [facility] Administration Levothyroxine Sodium 100 mcg 10/01/19 07:00 10/27/19 06:17 Synthroid - PO 100 mcg ACBK [facility] Administration Lidocaine 3 patch 10/20/19 10:00 10/27/19 09:58 Lidoderm Patch - TP 3 patch DAILY [facility] Administration Miscellaneous 1 each 10/13/19 22:00 10/26/19 21:27 Lidoderm Patch Removal MC 1 each DAILY@2200 [facility] Administration Multi-Ingredient Ointment 1 applic 10/27/19 10:14 10/27/19 11:23 Zinc Oxide TP 1 applic DAILY [facility] Administration Nitroglycerin 1 inch 10/03/19 14:26 10/27/19 12:05 Nitro-Bid 2% Paste - TD Not Given Q6HPO [facility] Nystatin 1 applic 10/27/19 10:15 10/27/19 11:22 Mycostatin Cream - TP 1 applic BID [facility] Administration Pantoprazole Sodium 40 mg 10/22/19 22:45 10/27/19 09:59 Protonix Iv IVPUSH 40 mg BID [facility] Administration Polyethylene Glycol 17 gm 10/01/19 10:00 10/27/19 09:59 Miralax (For Daily Use) - PO Not Given BID [facility] Triamcinolone Acetonide 1 applic 10/18/19 10:00 10/27/19 09:57 Aristocort 0.1% Cream - TP 1 applic DAILY [facility] Administration Triamcinolone Acetonide 1 applic 10/19/19 10:15 10/27/19 09:57 Aristocort 0.1% Lotion - TP 1 applic BID [facility] Administration Vital Signs Period Temp Pulse Resp BP Sys/Hernandez Pulse Ox Last 24 Hr 97.9 F-98.4 F 87-120 18-20 127-150/61-89 94-96 Constitutional: Yes: No Distress, Calm Eyes: No: Sclera Icterus HENT: No: Nasal Congestion Cardiovascular: Yes: Pulse Irregular, JVD, S1, S2, Other (PMI non diplaced). No: Gallop, Murmur Respiratory: Yes: Regular, CTA Bilaterally. No: Accessory Muscle Use Gastrointestinal: Yes: Normal Bowel Sounds, Soft. No: Tenderness Extremities: No: Cold, Cyanosis Edema: 1+ le edema bl Integumentary: No: Jaundice Neurological: Yes: Alert, Oriented (x3) Psychiatric: No: Agitated Assessment/Plan echo 03/2019 nl LV function, mild MR, mild TR, PASP at least 49 mmHg IMP/REC: Acute diastolic heart failure exacerbation: - recent echo nl LV function - no signs acs - holding aldactone - was on iv lasix but no sig improvement and cr worsened. It was rec'd that pt have HD but she declined so transitioned to po lasix, but now with vol build up and back on iv lasix. - renal fxn stable, resp status/edema reasonably compensated. pt considering HD still, in ongoing d/w dr georges. - seen by palliative care earlier this admit, wished to continue fighting - continue lasix 80 IV tid, weight down - cont nitrates for cardiorenal syndrome HTN: - bp stable - cont current meds crow on CKD: - Baseline creat from last admission is 2-2.5, elevated now, likely cardiorenal here - renal following PAF: -cont coreg for rate control -cont eliquis low dose (age, creatinine) anemia: -CKD contributing likely, baseline 8s -running 7s-8s, now guaiac + -would continue adjusted dose eliquis for now as doing, close monitoring of counts--if drops or + melena, will have to hold. she is likely too hi risk for GI scopes. liver mass: -heme/onc following
[2019-10-27] MEDS ORDERED: ALBUMIN HUMAN 25% 100 ML VIAL IVPB ONE (13:00)
[2019-10-27] MEDS ORDERED: ARTIFICIAL TEARS (POLYVINYL ALCOHOL) OPTH DROPS OU PRN (13:22)
--- NOTE | 2019-10-27 16:32 | PN ---
Teaching Attending Note Name of Resident: Kylah Dentno ATTENDING PHYSICIAN STATEMENT I saw and evaluated the patient. I reviewed the resident's note and discussed the case with the resident. I agree with the resident's findings and plan as documented. SUBJECTIVE: no fever or chills. pain OBJECTIVE: ASSESSMENT AND PLAN:
--- NOTE | 2019-10-27 17:47 | PN ---
Teaching Attending Note Name of Resident: Kylah Denton ATTENDING PHYSICIAN STATEMENT I saw and evaluated the patient. I reviewed the resident's note and discussed the case with the resident. I agree with the resident's findings and plan as documented. SUBJECTIVE:seen at 11 am No fever or chills. had pain in L hand IV site. has itching . had irritation in skin between her legs . Pureick device fell off last night and urine irritated her skin OBJECTIVE: NAD, awake, alert. CV: RRR Lungs: minimal crackles at bases bilaterally Ext: 2+ edema on legs and ankles. no ulcers on heels , R upper monique superficial wounds at site of skin Bx with scabs. No surrounding erythema . Skin: maculopapular rash all over , not changed from yesterday peeling skin on hands and abd decub ulcers were not examined today erythematous moist skin in groins and upper thighs ,excoriated skin on outer skin of labia majoris in L side ASSESSMENT AND PLAN: 89 y/o lady with h/o diastolic CHF, a-fib (on Eliquis), CKD, breast cancer s/p mastectomy, myelodysplasia, IDDM type 2, hypothyroidism, HLD, CVA, and GERD who presented with SOB adn LE edema and was diagnosed with D CHF exacerbation Acute on chronic diastolic heart failure : improved ESBL producing Klebsiealla complicated UTI/pyelonephritis : treated MAURICE on CKD : improved Liver mass retroperitoneal LAP b/l adrenal nodules h/o MDS chronic normocytic anemia persistent leukocytosis prolonged QTC hyponatremia : resolved high AG metabolic acidosis :resolved prolonged QTC h/o A fib Stage 2 sacral decubiti Maculopapular rash Eosinophilia Plan: - follow rash Biopsy - cont anti-histamin - cont IV lasix [address] Jordan, etacrinic acid was not given yesteday. also, once has a bed in rehab, she can be swotched to torsemide 100 BID - cont to hold HZn and spironolactone - monitor off Abx - cont eliqis - cont coreg at current dose - frequent turning. cont air mattress - aply zinc oxide to skinin groins and nystatin powder - cont lotrezol . both suggested agents , are not available in house.at tx will stop lotrezole and have her f/u with heme/onc for treatment HLOC
--- NOTE | 2019-10-27 19:59 | PN ---
Physical Exam: SUBJECTIVE: Patient seen and examined bedside. In no acute distress. Patient reports feeling better. Resting comfortable on room air. OBJECTIVE: Vital Signs Period Temp Pulse Resp BP Sys/Hernandez Pulse Ox Last 24 Hr 97.5 F-98.2 F 87-115 18-20 127-152/61-93 95-98 GENERAL: The patient is awake, alert, and oriented, in no acute distress. LUNGS: Breath sounds equal with BL crackles. Comfortable on RA HEART: RRR, s1, s1 ABDOMEN: Soft, nontender, nondistended. EXTREMITIES: BL + 2 pitting edema. Sacral decubitus ulcer stage 2. Groin area is very red and tender to palpation. Patient had soaked towel of urine between her legs. SKIN: Her face is much clearer today. She still has peeling throughout her body but the erythema is dissipating Laboratory Results - last 24 hr 10/26/19 10/27/19 10/27/19 21:14 06:00 07:50 WBC RBC Hgb Hct MCV MCH MCHC RDW Plt Count MPV Sodium 138 Potassium 3.8 Chloride 102 Carbon Dioxide 21 Anion Gap 15 BUN 107.1 H* Creatinine 2.7 H Est GFR (CKD-EPI)AfAm 17.41 Est GFR (CKD-EPI)NonAf 15.02 POC Glucometer 201 204 Random Glucose 190 H Calcium 8.6 Phosphorus 3.6 Magnesium 2.2 Total Bilirubin 0.7 AST 21 ALT 12 L Alkaline Phosphatase 445 H Total Protein 6.5 Albumin 2.9 L 10/27/19 10/27/19 10/27/19 07:50 11:56 16:15 WBC 20.2 H RBC 2.87 L Hgb 8.6 L Hct 27.5 L MCV 95.8 MCH 29.8 MCHC 31.1 L RDW 19.9 H Plt Count 142 MPV 8.9 Sodium Potassium Chloride Carbon Dioxide Anion Gap BUN Creatinine Est GFR (CKD-EPI)AfAm Est GFR (CKD-EPI)NonAf POC Glucometer 242 382 Random Glucose Calcium Phosphorus Magnesium Total Bilirubin AST ALT Alkaline Phosphatase Total Protein Albumin Active Medications Generic Name Dose Route Start Last Admin Trade Name Freq PRN Reason Stop Dose Admin Acetaminophen 650 mg 10/11/19 12:26 10/26/19 12:02 Tylenol - PO 650 mg Q6H PRN Administration PAIN LEVEL 6-10 Apixaban 2.5 mg 10/04/19 22:00 10/27/19 09:57 Eliquis - PO 2.5 mg BID [facility] Administration Artificial Tears 1 drop 10/27/19 13:22 Artificial Tears OU BID PRN DRY EYES Bacitracin 1 applic 10/21/19 17:30 10/27/19 09:57 Bacitracin - TP 1 applic DAILY [facility] Administration Bisacodyl 10 mg 10/14/19 13:59 10/15/19 13:05 Dulcolax Suppository - [place] 10 mg PRN PRN Administration CONSTIPATION Camphor/Menthol 1 applic 10/17/19 12:39 Sarna Anti-Itch - TP BID PRN FOR ITCHING Carvedilol 25 mg 10/23/19 09:26 10/27/19 09:57 Coreg - PO 25 mg BID [facility] Administration Docusate Sodium 300 mg 10/01/19 22:00 10/26/19 21:27 Colace - PO Not Given HS [facility] Furosemide 80 mg 10/20/19 14:00 10/27/19 13:08 Lasix Injection - IVPUSH 80 mg TID [facility] Administration Hydroxyzine Pamoate 25 mg 10/15/19 21:24 10/27/19 00:49 Vistaril - PO 25 mg Q8H PRN Administration FOR ITCHING Insulin Aspart 1 vial 10/01/19 07:00 10/27/19 16:18 Novolog Vial Sliding Scale - SQ 10 units ACHS [facility] Administration Protocol Lactobacillus Acidophilus 1 tab 09/29/19 14:30 10/27/19 09:57 Bacid - PO 1 tab DAILY [facility] Administration Letrozole 2.5 mg 10/01/19 10:00 10/27/19 11:22 Femara - PO 2.5 mg DAILY [facility] Administration Levothyroxine Sodium 100 mcg 10/01/19 07:00 10/27/19 06:17 Synthroid - PO 100 mcg ACBK [facility] Administration Lidocaine 3 patch 10/20/19 10:00 10/27/19 09:58 Lidoderm Patch - TP 3 patch DAILY [facility] Administration Miscellaneous 1 each 10/13/19 22:00 10/26/19 21:27 Lidoderm Patch Removal MC 1 each DAILY@2200 [facility] Administration Multi-Ingredient Ointment 1 applic 10/27/19 10:14 10/27/19 11:23 Zinc Oxide TP 1 applic DAILY [facility] Administration Nitroglycerin 1 inch 10/03/19 14:26 10/27/19 17:15 Nitro-Bid 2% Paste - TD 1 inch Q6HPO [facility] Administration Nystatin 1 applic 10/27/19 10:15 10/27/19 11:22 Mycostatin Cream - TP 1 applic BID [facility] Administration Pantoprazole Sodium 40 mg 10/22/19 22:45 10/27/19 09:59 Protonix Iv IVPUSH 40 mg BID [facility] Administration Polyethylene Glycol 17 gm 10/01/19 10:00 10/27/19 09:59 Miralax (For Daily Use) - PO Not Given BID [facility] Triamcinolone Acetonide 1 applic 10/18/19 10:00 10/27/19 09:57 Aristocort 0.1% Cream - TP 1 applic DAILY [facility] Administration Triamcinolone Acetonide 1 applic 10/19/19 10:15 10/27/19 09:57 Aristocort 0.1% Lotion - TP 1 applic BID [facility] Administration ASSESSMENT/PLAN: 9F yo female with pmhx of diastolic CHF, a-fib (on Eliquis), CKD, breast cancer s/p mastectomy, myelodysplasia, IDDM type 2, hypothyroidism, HLD, CVA, and GERD presents with b/l leg swelling and nausea for "weeks" and back pain for several days admitted for acute CHF exacerbation. Breast Cancer & MDS w/new hepatic lobe lesions - Dr. Sullivan saw the patient yesterday recommends to D/C letrozole and start either faslodex or exemestane - call Dr. Sullivan for medication tomorrow upon discharge - patient has chronic pain. Palliative care recs: attempt low dose morphine- 0.5 mg ivp q6-8 h prn and neurontin 100 mg po qhs Diffuse erythematous Rash of unknown origin - improving -Consulted Dr. Maria for Rheumatology for possible vasculitis. Skin biopsy results still pending - Possible sulfa rash from from hydralazine, d/c hydralazine - patient is improving - Dr. Reynaga hydroxyzine 25mg po Q8h for itching - New/worsening rash around vagina and groin nystatin around groin Zinc for labia offered patient her cath but she refused MAURICE on CKD; BUN/Cr stable -serial BMPs to monitor Cr - Dr. Samarneh patient does not need HD at this time being discharged on 100 toresimide BID tomorrow Stage 2 sacral ulcer; not infected - Continue zinc daily with padding - Frequent turning and positioning Anemia; likely multi-factorial in setting of CKD, myelodysplasia - Transfusion 1 PRBC on 10/15 - Transfusion 1 PRBC on 10/22 - Hbg has been stable Acute on Chronic Diastolic CHF Exacerbation; - Daily weights, I/Os, 2gm Na diet w/ fluid restriction - IV Lasixs until discharge - Cont 2 L O2 NC - Repeat Echo (10/03) showed LV wnl, EF 55-60% ESBL UTI - Has no urinary symptoms - UCx +ESBL Kleb pneumo; repeat UCx +Group D strep/enterococcus - Per ID, Ertapenem 500 mg QD completed today. Started on ZYVOX 600MG PO BID X 3D completed - 10/21 patient Urine cx came back + for ESBL. Hypothyroidism; Cont home meds: Synthroid 100 Prophylaxis -DVT: Cont home Eliquis 2.5 BID -GI: Cont home Protonix 40 FEN On soft diet with thin liquids DISPO: Full code Patient being discharge to facility tomorrow. Will confirm with social work in the morning. Visit type - Emergency Visit Emergency Visit: Yes ED Registration Date: 09/24/19 Care time: The patient presented to the Emergency Department on the above date and was hospitalized for further evaluation of their emergent condition. - New Patient This patient is new to me today: No - Critical Care Critical Care patient: No - Discharge Referral Referred to [facility] Med [facility] No - Medication Review Med list reviewed for High Risk Meds patients 65 and older: Yes ATTENDING PHYSICIAN STATEMENT I saw and evaluated the patient. I reviewed the resident's note and discussed the case with the resident. I agree with the resident's findings and plan as documented. SUBJECTIVE: OBJECTIVE: ASSESSMENT AND PLAN:
[2019-10-27] MEDS: LIDOCAINE PATCH REMOVAL MC SCH (21:05)
[2019-10-27] MEDS: DOCUSATE SODIUM 100 MG CAPSULE (FP) PO SCH (21:05)
[2019-10-27] MEDS: ACETAMINOPHEN 325 MG TABLET (FP) PO PRN (23:00)
[2019-10-28] MEDS ORDERED: PT OWN MED DRAWER 7, Y5N ONE ×4 (04:18→12:32)
[2019-10-28] MEDS: hydrOXYzine PAMOATE 25 MG CAPSULE (FP) PO PRN ×2 (04:28→12:33)
[2019-10-28] MEDS: FUROSEMIDE 40 MG/4 ML INJECTABLE VIAL IVPUSH SCH (05:26)
[2019-10-28] MEDS: NITROGLYCERIN 2% OINTMENT - 1GM PACKET TD SCH ×2 (05:26→12:24)
[2019-10-28] MEDS: LEVOTHYROXINE NA 100 MCG TABLET (FP) PO SCH (06:10)
[2019-10-28] MEDS: INSULIN SLIDING SCALE (NOVOLOG) 1 VIAL SQ SCH ×2 (06:10→12:19)
[2019-10-28 09:19] LABS: CALCIUM 8.3 mg/dL (8.5-10.1); CREATININE 2.8 mg/dL (0.55-1.3); MAGNESIUM 1.9 mg/dL (1.8-2.4); PHOSPHOROUS 3.7 mg/dL (2.5-4.9); POTASSIUM 3.3 mmol/L (3.5-5.1)
[2019-10-28 09:59] LABS: BLOOD UREA NITROGEN 107.6 mg/dL (7-18)
--- NOTE | 2019-10-28 10:08 | PN ---
Progress Note (short form) - Note Progress Note: Palliative care f/up 89 y/o female with PMHx of diastolic CHF, a-fib (on Eliquis), CKD, breast cancer s/p left breast lumpectomy and radiation in 2013, myelodysplasia, IDDM type 2, hypothyroidism, HLD, CVA, and GERD who was admitted to [facility] 09/23 with constipation, SOB, b/l leg swelling and nausea for "weeks" and back pain for "several days." Elissa has been in and out of hospitals and nursing homes this past year and she has been bedbound since February of last year. A CT of the abdomen revealed a 4 cm L hepatic lobe hypodense lesion suspicious for metastatic disease as well as a 2.[address] enlargement and enlarged retroperitoneal nodes. Very elevated BNP and edematous- s/p aggressive diuresis with improvement in edema but worsening renal function. 2 hepatic masses seen on USG liver- 5.7 cm and 4 cm respectively. She has metastatic breast cancer- pt is not a candidate for aggressive chemo/ sx/ radiation. She was also diagnosed with MDS/ AML or MPN as per haem- onc. Lumbar CT showed multilevel DJD, no neoplastic disease. with lidoderm patch for back pain, oxycodone discontinued + leucocytosis- with eosinophilia and diffuse rash- ? allergic reaction to hydralazine which has been discontinued- pt received iv steroids and is on topical steroids and antihistamines with improvement in rash and itching she has been evaluated by derm and skin bx results are pending has 2 PU in sacral area which are causing her back pain and discomfort bed positioning appears to be her major issue as per patient- she does not want to be turned and repositioned because of back pain but needs it because of sacral PU + leucocytosis/ thrombocytopenia suspicious for MPD ( leukemia ruled out) VSS haemodynamically stable AAO x 3 NAD decreased appetite denies SOB irritable dependent for all ADLs, c/o generalized body ache LE 2+ edema today Prognosis guarded metastatic breast cancer- switch to FASLODEX 500MG IM EVERY 2 WEEKs , and aromasin 25mg po daily- will f/up with onc after dc. 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 Her actual goal does seems to be pain relief and comfort even though patient appears to be wary of hospice/ comfort care. For pain relief we could attempt low dose morphine- 0.5 mg ivp q6-8 h prn and/ or neurontin 100 mg po qhs- appears comfortable at this time. Generalized rash- improving, cont antihistamines, topical steroids Persistent fluid overload with impaired cardiorenal status - nl LV function on recent echo with severely dilated atria and severe pulm HTN- torsemide with ? metolazone while monitoring potassium closely. Dysphagia- on soft diet with thin liquids Patient remains a full code and does not want hospice/ comfort care. She wants to have physical therapy. She would be appropriate for comfort/ hospice care given her multiple comorbidities, metastatic cancer, debilitated state with diastolic CHF and CKD approaching end stage, pressure ulcers. Would continue pain meds, diuretics. She will be appropriate for SNF on palliative care. dc planning to SNF. Problem List - Problems (1) Acute diastolic (congestive) heart failure Code(s): I50.31 - ACUTE DIASTOLIC (CONGESTIVE) HEART FAILURE (2) Acute kidney injury superimposed on CKD Code(s): N17.9 - ACUTE KIDNEY FAILURE, UNSPECIFIED; N18.9 - CHRONIC KIDNEY DISEASE, UNSPECIFIED (3) Breast cancer Code(s): C50.919 - MALIGNANT NEOPLASM OF UNSP SITE OF UNSPECIFIED FEMALE BREAST (4) History of CVA with residual deficit Code(s): I69.30 - UNSPECIFIED SEQUELAE OF CEREBRAL INFARCTION (5) Renal disease Code(s): N28.9 - DISORDER OF KIDNEY AND URETER, UNSPECIFIED
[2019-10-28] MEDS: PANTOPRAZOLE SODIUM 40 MG VIAL IVPUSH SCH (10:18)
[2019-10-28] MEDS: CARVEDILOL 25 MG TABLET (FP) PO SCH (10:18)
[2019-10-28] MEDS: LACTOBACILLUS ACIDOPHILUS 1 TABLET PO SCH (10:18)
[2019-10-28] MEDS: LETROZOLE 2.5 MG TABLET (FP) PO SCH (10:18)
[2019-10-28] MEDS: APIXABAN 2.5 MG TABLET PO SCH (10:18)
[2019-10-28] MEDS: LIDOCAINE 5% TOPICAL PATCH TP SCH (10:19)
[2019-10-28] MEDS: TRIAMCINOLONE ACET 0.1% CREAM 15 GM TUBE TP SCH (10:19)
[2019-10-28] MEDS: BACITRACIN 15 GM TUBE TOPICAL OINTMENT TP SCH (10:19)
[2019-10-28] MEDS: TRIAMCINOLONE ACET 0.1% 60 ML LOTION TP SCH (10:19)
[2019-10-28] MEDS: NYSTATIN 100,000 UNIT/GM TOPICAL CREAM 15 GM TUBE TP SCH (10:20)
[2019-10-28] MEDS: POLYETHYLENE GLYCOL 3350 119 GM BTL PO SCH (10:20)
[2019-10-28] MEDS: ZINC OXIDE 20% TOPICAL OINTMENT 30 GM TUBE TP SCH (10:20)
[2019-10-28] MEDS ORDERED: POTASSIUM CHLORIDE TABS 20 MEQ TABLET.ER (FP) PO ONE (11:05)
--- NOTE | 2019-10-28 11:20 | PN ---
Progress Note (short form) - Note Progress Note: Chief Complaint: sob History of Present Illness: no sob, no dizzy, no cp, no palps, c/o back pain Current Medications Generic Name Dose Route Start Last Admin Trade Name Freq PRN Reason Stop Dose Admin Acetaminophen 650 mg 10/11/19 12:26 10/27/19 23:00 Tylenol - PO 650 mg Q6H PRN Administration PAIN LEVEL 6-10 Apixaban 2.5 mg 10/04/19 22:00 10/28/19 10:18 Eliquis - PO 2.5 mg BID AMRIT Administration Artificial Tears 1 drop 10/27/19 13:22 10/27/19 22:00 Artificial Tears OU 1 drop BID PRN Administration DRY EYES Bacitracin 1 applic 10/21/19 17:30 10/28/19 10:19 Bacitracin - TP 1 applic DAILY AMRIT Administration Bisacodyl 10 mg 10/14/19 13:59 10/15/19 13:05 Dulcolax Suppository - OR 10 mg PRN PRN Administration CONSTIPATION Camphor/Menthol 1 applic 10/17/19 12:39 Sarna Anti-Itch - TP BID PRN FOR ITCHING Carvedilol 25 mg 10/23/19 09:26 10/28/19 10:18 Coreg - PO 25 mg BID AMRIT Administration Docusate Sodium 300 mg 10/01/19 22:00 10/27/19 21:05 Colace - PO Not Given HS AMRIT Furosemide 80 mg 10/20/19 14:00 10/28/19 05:26 Lasix Injection - IVPUSH 80 mg TID AMRIT Administration Insulin Aspart 1 vial 10/01/19 07:00 10/28/19 06:10 Novolog Vial Sliding Scale - SQ 2 units ACHS AMRIT Administration Protocol Lactobacillus Acidophilus 1 tab 09/29/19 14:30 10/28/19 10:18 Bacid - PO 1 tab DAILY AMRIT Administration Letrozole 2.5 mg 10/01/19 10:00 10/28/19 10:18 Femara - PO 2.5 mg DAILY AMRIT Administration Levothyroxine Sodium 100 mcg 10/01/19 07:00 10/28/19 06:10 Synthroid - PO 100 mcg ACBK AMRIT Administration Lidocaine 3 patch 10/20/19 10:00 10/28/19 10:19 Lidoderm Patch - TP 3 patch DAILY AMRIT Administration Miscellaneous 1 each 10/13/19 22:00 10/27/19 21:05 Lidoderm Patch Removal MC 1 each DAILY@2200 AMRIT Administration Multi-Ingredient Ointment 1 applic 10/27/19 10:14 10/28/19 10:20 Zinc Oxide TP 1 applic DAILY AMRIT Administration Nitroglycerin 1 inch 10/03/19 14:26 10/28/19 05:26 Nitro-Bid 2% Paste - TD 1 inch Q6HPO AMRIT Administration Nystatin 1 applic 10/27/19 10:15 10/28/19 10:20 Mycostatin Cream - TP 1 applic BID AMRIT Administration Pantoprazole Sodium 40 mg 10/22/19 22:45 10/28/19 10:18 Protonix Iv IVPUSH 40 mg BID AMRIT Administration Polyethylene Glycol 17 gm 10/01/19 10:00 10/28/19 10:20 Miralax (For Daily Use) - PO Not Given BID AMRIT Triamcinolone Acetonide 1 applic 10/18/19 10:00 10/28/19 10:19 Aristocort 0.1% Cream - TP 1 applic DAILY AMRIT Administration Triamcinolone Acetonide 1 applic 10/19/19 10:15 10/28/19 10:19 Aristocort 0.1% Lotion - TP 1 applic BID AMRIT Administration Vital Signs Period Temp Pulse Resp BP Sys/Hernandez Pulse Ox Last 24 Hr 97.5 F-98.4 F 101-110 18-22 113-152/56-93 97-98 Constitutional: Yes: No Distress, Calm Eyes: No: Sclera Icterus HENT: No: Nasal Congestion Cardiovascular: Yes: Pulse Irregular, JVD, S1, S2, Other (PMI non diplaced). No: Gallop, Murmur Respiratory: Yes: Regular, CTA Bilaterally. No: Accessory Muscle Use Gastrointestinal: Yes: Normal Bowel Sounds, Soft. No: Tenderness Extremities: No: Cold, Cyanosis Edema: 1-2+ le edema bl Integumentary: No: Jaundice Neurological: Yes: Alert, Oriented (x3) Psychiatric: No: Agitated Labs: CBC, BMP 10/28/19 07:28 10/28/19 07:28 Assessment/Plan echo 03/2019 nl LV function, mild MR, mild TR, PASP at least 49 mmHg IMP/REC: Acute diastolic heart failure exacerbation: - recent echo nl LV function - no signs acs - holding aldactone - was on iv lasix but no sig improvement and cr worsened. It was rec'd that pt have HD but she declined so transitioned to po lasix, but now with vol build up and back on iv lasix. - renal fxn stable, resp status/edema reasonably compensated. pt considering HD still, in ongoing d/w dr georges. - seen by palliative care earlier this admit, wished to continue fighting - continue lasix 80 IV tid, not much improvement in vol status, may need to readdress HD again vs hospice - cont nitrates for cardiorenal syndrome HTN: - bp stable - cont current meds crow on CKD: - Baseline creat from last admission is 2-2.5, elevated now, likely cardiorenal here - renal following PAF: -cont coreg for rate control -cont eliquis low dose (age, creatinine) anemia: -CKD contributing likely, baseline 8s -running 7s-8s, now guaiac + -would continue adjusted dose eliquis for now as doing, close monitoring of counts--if drops or + melena, will have to hold. she is likely too hi risk for GI scopes. liver mass: -heme/onc following
[2019-10-28] MEDS ORDERED: INSULIN (NOVOLOG) ASPART 100 UNITS/ML 10ML VIAL ONE (11:50)
[2019-10-28 13:54] VITALS: BP 136/88; PULSE 104; TEMP 97.8
--- NOTE | 2019-10-28 14:27 | DS ---
Physical Exam: SUBJECTIVE: Patient seen and examined bedside. Resting comfortably on RA. Has itching and peeling but says she is feeling better. OBJECTIVE: Vital Signs Period Temp Pulse Resp BP Sys/Hernandez Pulse Ox Last 24 Hr 97.7 F-98.7 F 100-110 18-22 113-152/56-93 94-100 PHYSICAL EXAM GENERAL: The patient is awake, alert, and oriented, in no acute distress. LUNGS: Breath sounds equal with BL crackles. Comfortable on RA HEART: RRR, s1, s1 ABDOMEN: Soft, nontender, nondistended. EXTREMITIES: BL + 2 pitting edema. Sacral decubitus ulcer stage 2. Groin area is less red than yesterday. SKIN: Dry skin is peeling throughout her body but the erythema is dissipating LABS Laboratory Results - last 24 hr 10/27/19 10/27/19 10/28/19 16:15 20:49 06:04 WBC Corrected WBC (auto) RBC Hgb Hct MCV MCH MCHC RDW Plt Count MPV Manual Slide Review Platelet Comment Sodium Potassium Chloride Carbon Dioxide Anion Gap BUN Creatinine Est GFR (CKD-EPI)AfAm Est GFR (CKD-EPI)NonAf POC Glucometer 382 322 183 Random Glucose Calcium Phosphorus Magnesium 10/28/19 10/28/19 10/28/19 07:28 07:28 11:48 WBC Cancelled Corrected WBC (auto) Cancelled RBC Cancelled Hgb Cancelled Hct Cancelled MCV Cancelled MCH Cancelled MCHC Cancelled RDW Cancelled Plt Count Cancelled MPV Cancelled Manual Slide Review Cancelled Platelet Comment Cancelled Sodium 137 Potassium 3.3 L Chloride 100 Carbon Dioxide 23 Anion Gap 14 BUN 107.6 H* Creatinine 2.8 H Est GFR (CKD-EPI)AfAm 16.66 Est GFR (CKD-EPI)NonAf 14.37 POC Glucometer 212 Random Glucose 174 H Calcium 8.3 L Phosphorus 3.7 Magnesium 1.9 HOSPITAL COURSE: Patient presented to the hospital from [facility] with BL leg swelling and nausea. It was reported that the patient had not having taken her lasixs for weeks due to MAURICE. Patient was admitted for CHF exacerbation. While in the hospital she was also treated for a UTI that cultured + for ESBL and she was treated with IV antibiotics. Her lasixs was restarted and kidney f unction monitored closely by nephrology. Given her CKD, dialysis had been discussed many times, however the patient refused, and her BUN/Cr though poor, stabilized, therefore no HD was done. The patient is being discharged on torsemide 100 mg BID. While in the hospital she also developed a very erythematous, diffuse, itchy rash with sporadic petechiae. She was worked up by dermatology and rheumatology. A skin biospy was done and the results should be followed up with. Her hydralazine was stopped due to the possibility that it may be the cause of the rash. Within a few days of stopping the medication and 1 dose of IV steroids, the patient's rash started to dissipate. The patient was strongly advised to follow up with her heavy equipment field mechanic, oncologist, technical publications manager, cardiac rehabilitation program director, diamond polisher and PCP after being discharged. Date of Admission:09/24/19 Date of Discharge: 10/28/19 Minutes to complete discharge: 40 Discharge Summary Problems reviewed: Yes Reason For Visit: CONGESTIVE HEART FAILURE Current Active Problems Acute diastolic (congestive) heart failure (Acute) Acute kidney injury superimposed on CKD (Acute) Skin rash (Acute) Condition: Stable - Instructions Diet, Activity, Other Instructions: Visit: You came to the hospital with nausea, vomiting and leg swelling. In the hospital you were treated for a UTI, heart failure exacerbation, and acute kidney injury on top of your chronic renal failure. You had a rash while you were here. It needed a skin biopsy, please follow up with the cardiac rehabilitation program director for the results. Your condition has improved and you are now stable for discharge. Please continue to take your home medications as prescribed. We made a few changes to your medications: Please take Torsemide 100 mg twice a day Please stop taking hydralazine Please stop taking norvasc Please stop taking zofran Please stop taking oxycodone stop januvia - insulin dose decreased - imdur was stopped You have an appointment with Dr. Sullivan your oncologist on November 22 at 1:30pm, please call the office to confirm [phone] Please follow up with your oncologist Dr. Sullivan regarding your cancer Please follow up with your primary care physician to manage your general healthcare Please follow up with your heavy equipment field mechanic, Dr. Sequeira regarding your kidney function Please follow up with your cardiac rehabilitation program director Dr. Maria regarding your skin biopsy results and blood work Please follow up with your technical publications manager to further manage your heart If you have new, worsening, or concerning symptoms please return to the ED or call 911. apply zinc oxide and nystatin powder to the the groin area apply lidocaine patch to back steroid cream to the rash on torso and body decubitus ulcer on sacral /gluteal area. off load pressure , frequent turning. avoid contamination with stool. keep dry and apply allevyn dressing Referrals: Michelle Turk MD [Staff Physician] - 2 Weeks Shaq Salinas MD [Primary Care Provider] - Tiago Maria MD [Staff Physician] - 1 Week Berlin Sullivan MD [Staff Physician] - 11/23/19 1:30 pm Neva Sequeira MD [Staff Physician] - 1 Week Disposition: HALFWAY FACILITY - Home Medications Comprehensive Discharge Medication List: Ambulatory Orders Calcium Carbonate/Vitamin D3 [Calcium 500-Vit D3 400 Tablet] 1 each PO BID 06/23/18 Carvedilol [Coreg -] 25 mg PO BID 06/23/18 Polyethylene Glycol 3350 [Miralax 119 gm Btl -] 17 gm PO DAILY PRN bottle 04/27/19 Apixaban [Eliquis] 2.5 mg PO BID 08/12/19 Isosorbide Mononitrate [Imdur -] 60 mg PO DAILY 08/12/19 Insulin Lispro [Humalog] 100 unit SQ PRN 09/24/19 Pantoprazole Sodium [Protonix] 40 mg PO DAILY 09/24/19 Multivitamin [One-Daily Multi-Vitamin] 1 each PO DAILY 09/25/19 Acetaminophen [Tylenol .Regular Strength -] 650 mg PO Q6H PRN tablet 10/27/19 Docusate Sodium [Colace -] 300 mg PO HS capsule 10/27/19 Lactobacillus Acidophilus [Bacid -] 1 tab PO DAILY tab 10/27/19 Lidocaine Patch Removal [Lidoderm Patch Removal] 1 each MC DAILY@2200 each 10/27/19 Nystatin Cream [Mycostatin Cream -] 1 applic TP BID applic 10/27/19 Polyvinyl Alcohol [Artificial Tears] 1 drop OU BID PRN drops 10/27/19 Torsemide 100 mg PO BID 30 Days #60 tablet 10/27/19 Triamcinolone 0.1% Lotion [Aristocort 0.1% Lotion -] 1 applic TP BID lotion 10/27/19 Zinc Oxide 1 applic TP DAILY tube 10/27/19 hydrOXYzine PAMOATE [Vistaril -] 25 mg PO Q8H PRN capsule 10/27/19 Insulin Glargine,Hum.rec.anlog [Lantus] 20 unit SQ DAILY 30 Days vial 10/28/19 Lidocaine 5% Patch [Lidoderm -] 1 patch TP DAILY #30 patch 10/28/19 This patient is new to me today: No Emergency Visit: Yes ED Registration Date: 09/24/19 Care time: The patient presented to the Emergency Department on the above date and was hospitalized for further evaluation of their emergent condition. Critical Care patient: No - Discharge Referral Referred to [facility] Med P.C.: No ATTENDING PHYSICIAN STATEMENT I saw and evaluated the patient. I reviewed the resident's note and discussed the case with the resident. I agree with the resident's findings and plan as documented. SUBJECTIVE: OBJECTIVE: ASSESSMENT AND PLAN:
--- NOTE | 2019-10-28 14:35 | PN ---
Teaching Attending Note Name of Resident: Kylah Denton ATTENDING PHYSICIAN STATEMENT I saw and evaluated the patient. I reviewed the resident's note and discussed the case with the resident. I agree with the resident's findings and plan as documented. SUBJECTIVE: no fever or chills. No SOB. itching improved OBJECTIVE: NAD, awake, alert. CV: RRR Lungs: minimal crackles at bases bilaterally Ext: 2+ edema on legs and ankles. no ulcers on heels , R upper monique superficial wounds at site of skin Bx with scabs. No surrounding erythema. Skin: maculopapular rash all over , not changed from yesterday peeling skin on hands and abd and feet decub ulcers satge 2 on non blanching base. stage 2 horizontal ulcer on upper L thigh just below buttock . no discharge from any of the ulcers. erythematous moist skin in groins and upper thighs ( better ). ASSESSMENT AND PLAN: 89 y/o lady with h/o diastolic CHF, a-fib (on Eliquis), CKD, breast cancer s/p mastectomy, myelodysplasia, IDDM type 2, hypothyroidism, HLD, CVA, and GERD who presented with SOB adn LE edema and was diagnosed with D CHF exacerbation Acute on chronic diastolic heart failure : improved ESBL producing Klebsiealla complicated UTI/pyelonephritis : treated MAURICE on CKD : improved Liver mass retroperitoneal LAP b/l adrenal nodules h/o MDS chronic normocytic anemia persistent leukocytosis prolonged QTC hyponatremia: resolved high AG metabolic acidosis: resolved prolonged QTC h/o A fib Stage 2 sacral decubiti Maculopapular rash Eosinophilia Plan: - follow rash Biopsy. this is to be followed after dc - f/u with rhum and derm after dc - cont anti-histamine - switch to torsemide 100 BID . No ethacrinic acid at dc . d/w renal - cont to hold HZn and spironolactone after dc - spoke to card. change the NG ptach to her home imdur - cont eliqis - cont coreg at current dose - frequent turning. - aply zinc oxide and nysttin to her groin area - dc lotrezole. she will be started on oral agents by her oncologist after dc . - resume her lantus and ssi at dc - dc home januvia - triamcenolon to rash until f/u with derm dc to rehab . magdiel was d/w her and she agrees.
--- NOTE | 2019-10-28 15:13 | PN ---
Progress Note, Physician History of Present Illness: Pt seen and examined at bedside. No great change in status. - Current Medication List Current Medications: Active Medications Acetaminophen (Tylenol -) 650 mg PO Q6H PRN PRN Reason: PAIN LEVEL 6-10 Last Admin: 10/27/19 23:00 Dose: 650 mg Documented by: Apixaban (Eliquis -) 2.5 mg PO BID [facility] Last Admin: 10/28/19 10:18 Dose: 2.5 mg Documented by: Artificial Tears (Artificial Tears) 1 drop OU BID PRN PRN Reason: DRY EYES Last Admin: 10/27/19 22:00 Dose: 1 drop Documented by: Bacitracin (Bacitracin -) 1 applic TP DAILY [facility] Last Admin: 10/28/19 10:19 Dose: 1 applic Documented by: Bisacodyl (Dulcolax Suppository -) 10 mg [place] PRN PRN PRN Reason: CONSTIPATION Last Admin: 10/15/19 13:05 Dose: 10 mg Documented by: Camphor/Menthol (Sarna Anti-Itch -) 1 applic TP BID PRN PRN Reason: FOR ITCHING Carvedilol (Coreg -) 25 mg PO BID [facility] Last Admin: 10/28/19 10:18 Dose: 25 mg Documented by: Docusate Sodium (Colace -) 300 mg PO HS [facility] Last Admin: 10/27/19 21:05 Dose: Not Given Documented by: Insulin Aspart (Novolog Vial Sliding Scale -) 1 vial SQ [facility]; Protocol Last Admin: 10/28/19 12:19 Dose: 4 units Documented by: Lactobacillus Acidophilus (Bacid -) 1 tab PO DAILY [facility] Last Admin: 10/28/19 10:18 Dose: 1 tab Documented by: Letrozole (Femara -) 2.5 mg PO DAILY [facility] Last Admin: 10/28/19 10:18 Dose: 2.5 mg Documented by: Levothyroxine Sodium (Synthroid -) 100 mcg PO ACBK [facility] Last Admin: 10/28/19 06:10 Dose: 100 mcg Documented by: Lidocaine (Lidoderm Patch -) 3 patch TP DAILY [facility] Last Admin: 10/28/19 10:19 Dose: 3 patch Documented by: Miscellaneous (Lidoderm Patch Removal) 1 each MC DAILY@2200 [facility] Last Admin: 07/22/20 21:05 Dose: 1 each Documented by: Multi-Ingredient Ointment (Zinc Oxide) 1 applic TP DAILY [facility] Last Admin: 10/28/19 10:20 Dose: 1 applic Documented by: Nitroglycerin (Nitro-Bid 2% Paste -) 1 inch TD Q6HPO [facility] Last Admin: 10/28/19 12:24 Dose: 1 inch Documented by: Nystatin (Mycostatin Cream -) 1 applic TP BID [facility] Last Admin: 10/28/19 10:20 Dose: 1 applic Documented by: Pantoprazole Sodium (Protonix Iv) 40 mg IVPUSH BID [facility] Last Admin: 10/28/19 10:18 Dose: 40 mg Documented by: Polyethylene Glycol (Miralax (For Daily Use) -) 17 gm PO BID [facility] Last Admin: 10/28/19 10:20 Dose: Not Given Documented by: Triamcinolone Acetonide (Aristocort 0.1% Cream -) 1 applic TP DAILY [facility] Last Admin: 10/28/19 10:19 Dose: 1 applic Documented by: Triamcinolone Acetonide (Aristocort 0.1% Lotion -) 1 applic TP BID [facility] Last Admin: 10/28/19 10:19 Dose: 1 applic Documented by: - Objective Vital Signs: Vital Signs Temperature 97.8 F 10/28/19 13:53 Pulse Rate 104 H 10/28/19 13:53 Respiratory Rate 18 10/28/19 13:53 Blood Pressure 136/88 10/28/19 13:53 O2 Sat by Pulse Oximetry (%) 100 10/28/19 13:53 Constitutional: Yes: Calm Eyes: Yes: Conjunctiva Clear HENT: Yes: Atraumatic Neck: Yes: Supple Cardiovascular: Yes: S1, S2 Respiratory: Yes: CTA Bilaterally Gastrointestinal: Yes: Soft Genitourinary: Yes: Incontinence Musculoskeletal: Yes: Muscle Weakness Edema: Yes Edema: LLE: 2+, RLE: 2+ Neurological: Yes: Oriented Psychiatric: Yes: Oriented Labs: CBC, BMP 10/28/19 07:28 10/28/19 07:28 INR, PTT INR 2.02 (0.83-1.09) H 10/20/19 07:24 Assessment/Plan Current Medications Generic Name Dose Route Start Last Admin Trade Name Meena PRN Reason Stop Dose Admin Acetaminophen 650 mg 10/11/19 12:26 10/27/19 23:00 Tylenol - PO 650 mg Q6H PRN Administration PAIN LEVEL 6-10 Apixaban 2.5 mg 10/04/19 22:00 10/28/19 10:18 Eliquis - PO 2.5 mg BID [facility] Administration Artificial Tears 1 drop 10/27/19 13:22 10/27/19 22:00 Artificial Tears OU 1 drop BID PRN Administration DRY EYES Bacitracin 1 applic 10/21/19 17:30 10/28/19 10:19 Bacitracin - TP 1 applic DAILY [facility] Administration Bisacodyl 10 mg 10/14/19 13:59 10/15/19 13:05 Dulcolax Suppository - [place] 10 mg PRN PRN Administration CONSTIPATION Camphor/Menthol 1 applic 10/17/19 12:39 Sarna Anti-Itch - TP BID PRN FOR ITCHING Carvedilol 25 mg 10/23/19 09:26 10/28/19 10:18 Coreg - PO 25 mg BID [facility] Administration Docusate Sodium 300 mg 10/01/19 22:00 10/27/19 21:05 Colace - PO Not Given HS [facility] Insulin Aspart 1 vial 10/01/19 07:00 10/28/19 12:19 Novolog Vial Sliding Scale - SQ 4 units ACHS [facility] Administration Protocol Lactobacillus Acidophilus 1 tab 09/29/19 14:30 10/28/19 10:18 Bacid - PO 1 tab DAILY [facility] Administration Letrozole 2.5 mg 10/01/19 10:00 10/28/19 10:18 Femara - PO 2.5 mg DAILY [facility] Administration Levothyroxine Sodium 100 mcg 10/01/19 07:00 10/28/19 06:10 Synthroid - PO 100 mcg ACBK [facility] Administration Lidocaine 3 patch 10/20/19 10:00 10/28/19 10:19 Lidoderm Patch - TP 3 patch DAILY [facility] Administration Miscellaneous 1 each 10/13/19 22:00 10/27/19 21:05 Lidoderm Patch Removal MC 1 each DAILY@2200 [facility] Administration Multi-Ingredient Ointment 1 applic 10/27/19 10:14 10/28/19 10:20 Zinc Oxide TP 1 applic DAILY [facility] Administration Nitroglycerin 1 inch 10/03/19 14:26 10/28/19 12:24 Nitro-Bid 2% Paste - TD 1 inch Q6HPO [facility] Administration Nystatin 1 applic 10/27/19 10:15 10/28/19 10:20 Mycostatin Cream - TP 1 applic BID [facility] Administration Pantoprazole Sodium 40 mg 10/22/19 22:45 10/28/19 10:18 Protonix Iv IVPUSH 40 mg BID [facility] Administration Polyethylene Glycol 17 gm 10/01/19 10:00 10/28/19 10:20 Miralax (For Daily Use) - PO Not Given BID [facility] Triamcinolone Acetonide 1 applic 10/18/19 10:00 10/28/19 10:19 Aristocort 0.1% Cream - TP 1 applic DAILY [facility] Administration Triamcinolone Acetonide 1 applic 10/19/19 10:15 10/28/19 10:19 Aristocort 0.1% Lotion - TP 1 applic BID [facility] Administration Impression 1. proteinuria 2. hypothyroid 3. HTN 4. DM 5. fluid overload 6. breast cancer 7. anemia 8. CKD 9. CHF 10. hyponatremia 11. hypokalemia 12. MAURICE Plan - can change to torsemide 100 mg po bid on discharge - will need to cont 2 grams sodium diet with fluids restriction - discussed fluid restriction at length - outpt follow up - cardio follow up - discussed with medical team
--- NOTE | 2019-10-28 20:53 | PN ---
DATE OF VISIT: DATE OF DICTATION: 10/28/2019 An 89-year-old female with multiple medical problems including heart failure, atrial fibrillation, chronic kidney disease, breast cancer, diabetes, hypothyroidism, CVA, GERD, who has urinary incontinence. CT scan revealed a 4-cm left hepatic low hypodense lesion suspicious for metastatic disease as well as a 2.7 right lower quadrant lymph node. There was enlarged retroperitoneal nodes. There was also evidence of diverticulosis. No pathology was noted. The patient's urine cultures early on grew out klebsiella and enterococci. Presently her urinalysis is clear of infection. She still continues to be incontinent. Patient also refuses a Santillan catheter insertion. She is presently on ceftriaxone. Her BUN and creatinine are 106 over 3.1, her white count is 16,700. Her hemoglobin and hematocrit is 7.2/22.3. IMPRESSION: Impression at present is congestive heart failure with azotemia and anasarca. Would recommend a Santillan with strict ins and outs. Will talk to patient's family. Karolina [id number]
--- NOTE | 2019-11-01 19:46 | PATH ---
Surgical Pathology Report Patient Name: MACHO HASTINGS Med. Rec. #: [id number] /Age/Gender: 1930 (Age: 89) / F Account: [id number] Location: [address] [place] [address]/[facility] Taken: 10/21/2019 Received: 10/22/2019 Reported: 11/01/2019 Physicians: Slava Baker Specimen(s) Received SKIN BIOPSY Clinical History Pruritic skin rash-diffuse around body Rule out paraneoplastic syndrome, drug reaction, Sweet syndrome Final Diagnosis SKIN, RIGHT, KNEE, BIOPSY: INTERFACE DERMATITIS WITH EOSINOPHILS, CONSISTENT WITH A DRUG ERUPTION. SEE COMMENT. Comment: Histologic sections show a superficial, perivascular mixed inflammatory cell infiltrate that extends to the dermo-epidermal junction where there are vacuolar alterations and necrotic keratinocytes. There are parakeratosis and extravasated erythrocytes. The inflammatory cell infiltrate contains lymphocytes, histiocytes, and eosinophils. Paraneoplastic pemphigus may rarely appear as an interface dermatitis. If the dermatitis does not resolve, if clinically indicated, a direct immunofluorescence study would be useful. This case was sent to Dr. Terry Morris from [facility], [place], [place] ([id number]) the diagnosis above reflects his opinion. See [facility] report for additional details. Electronically Signed Precious Elena M.D. Gross Description Received in formalin labeled "skin biopsy right knee," are 2 chang, unoriented skin shaves measuring 0.8 x 0.5 cm and 1.4 x 0.6 cm. No discrete epidermal lesion is identified. The bases are inked blue and the specimens are bisected. The specimen is entirely submitted in one cassette. /10/22/2019 located within [facility]/10/22/2019
== END 2019-10-28 18:16 | DRG 291 ==
LOC: JER 15:56 → JERBED 20:18 → J4W 23:15 → J6WEST-2 09-30 20:54 → J6S 10-01 20:43
PROVIDERS: ADMIT Internal Medicine; ATTEND Internal Medicine
PROC: 0HBKXZX Excision of Right Lower Leg Skin, External Approach, Diagnostic (ICD-10-PCS; principal; 2019-09-21)
PROC: 30233N1 Transfusion of Nonautologous Red Blood Cells into Peripheral Vein, Percutaneous Approach (ICD-10-PCS; 2019-09-24)
DX: I13.0 Hypertensive heart and chronic kidney disease with heart failure and stage 1 through stage 4 chronic kidney disease, or unspecified chronic kidney disease (principal); I50.33 Acute on chronic diastolic (congestive) heart failure; N17.9 Acute kidney failure, unspecified; N39.0 Urinary tract infection, site not specified; E87.1 Hypo-osmolality and hyponatremia; Z16.12 Extended spectrum beta lactamase (ESBL) resistance; E87.2 Acidosis; D46.9 Myelodysplastic syndrome, unspecified; I48.0 Paroxysmal atrial fibrillation; E11.65 Type 2 diabetes mellitus with hyperglycemia; E88.09 Other disorders of plasma-protein metabolism, not elsewhere classified; D37.6 Neoplasm of uncertain behavior of liver, gallbladder and bile ducts; K57.90 Diverticulosis of intestine, part unspecified, without perforation or abscess without bleeding; M48.061 Spinal stenosis, lumbar region without neurogenic claudication; L89.152 Pressure ulcer of sacral region, stage 2; N18.9 Chronic kidney disease, unspecified; E03.9 Hypothyroidism, unspecified; E78.5 Hyperlipidemia, unspecified; K21.9 Gastro-esophageal reflux disease without esophagitis; D72.829 Elevated white blood cell count, unspecified; D64.9 Anemia, unspecified; D72.1 Eosinophilia; E87.70 Fluid overload, unspecified; Z85.3 Personal history of malignant neoplasm of breast; E87.6 Hypokalemia; R13.10 Dysphagia, unspecified; D69.6 Thrombocytopenia, unspecified; R31.9 Hematuria, unspecified; K59.00 Constipation, unspecified
CPT/HCPCS: 36415; 36430; 36511; 71045-TC-FY; 72131-TC; 74176-TC; 76705-TC; 80048; 80053; 81003; 82272; 82378; 82565; 82728; 82962; 83516; 83520; 83540; 83550; 83605; 83735; 83880; 83930; 83935; 84100; 84156; 84300; 84484; 85025; 85027; 85610; 85730; 86038; 86160; 86225; 86235; 86256; 86300; 86682; 86850; 86900; 86901; 86922; 87040; 87086; 87186; 88300-TC; 88305-TC; 93005; 93010; 93306-TC; 97116-GP; 97162-GP; 99285-25; E0186; J0131; J1644; J1756; P9038; P9047; P9058; U0003

== ENCOUNTER 2019-10-29 23:29 | Inpatient (IN) | payer OTHER, MEDICARE ==
--- NOTE | 2019-10-29 23:51 | PDOC ---
History of Present Illness - General Stated Complaint: WEAKNESS Time Seen by Provider: 10/29/19 23:50 History Source: Patient Exam Limitations: No Limitations - History of Present Illness Initial Comments: 10/30/19 00:00 89y/o F hx of Afib on eliquis, dCHF, CKD, breast CA w mets s/p mastectomy, myelodysplasia, IDDM type 2, ESBL UTI, HTN, CVA, chronic back pain, sacral decubitus ulcer, hypothyroidism, on 2-3L NC presenting from [facility] w generalized dermal pain and L shoulder pain. Denies recent trauma. Dissatisfied with her care at [facility] d/t they not addressing her pain, received 5 oxy after screaming for pain control for hours, refuses to go back there. Admitted from 09/23-10/27 for CHF exacerbation, ESBL UTI, generalized rash, breast CA w mets, pain was inadequately treated w hydroxyzine and tylenol. Denies fever, cough, chest pain, SOB, urinary/bowel mvmt changes. Past History - Medical History Allergies/Adverse Reactions: Allergies Allergy/AdvReac Type Severity Reaction Status Date / Time NSAIDS (Non-Steroidal Allergy Severe Difficulty Verified 10/30/19 05:27 Anti-Inflamma Breathing ibuprofen Allergy Intermediate Rash Verified 10/30/19 05:27 meloxicam [From Mobic] Allergy Intermediate Rash Verified 10/30/19 05:27 rosiglitazone maleate Allergy Verified 10/30/19 05:27 [From Avandia] albuterol AdvReac Intermediate Elevated Verified 10/30/19 05:27 Blood Pressure epinephrine AdvReac Intermediate Elevated Verified 10/30/19 05:27 Blood Pressure oxycodone HCl [From Percodan] AdvReac Intermediate Elevated Verified 10/30/19 07:29 Blood Pressure oxycodone terephthalate AdvReac Intermediate Elevated Verified 10/30/19 05:27 [From Percodan] Blood Pressure flu shot AdvReac Severe GILLAIN 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 Home Medications: Ambulatory Orders Carvedilol [Coreg -] 25 mg PO BID 06/23/18 Polyethylene Glycol 3350 [Miralax 119 gm Btl -] 17 gm PO DAILY PRN bottle 04/27/19 Apixaban [Eliquis] 2.5 mg PO BID 08/12/19 Isosorbide Mononitrate [Imdur -] 60 mg PO DAILY 08/12/19 Insulin Lispro [Humalog] 100 unit SQ PRN 09/24/19 Pantoprazole Sodium [Protonix] 40 mg PO DAILY 09/24/19 Multivitamin [One-Daily Multi-Vitamin] 1 each PO DAILY 09/25/19 Acetaminophen [Tylenol .Regular Strength -] 650 mg PO Q6H PRN tablet 10/27/19 Lactobacillus Acidophilus [Bacid -] 1 tab PO DAILY tab 10/27/19 Lidocaine Patch Removal [Lidoderm Patch Removal] 1 each MC DAILY@2200 each 10/27/19 Nystatin Cream [Mycostatin Cream -] 1 applic TP BID applic 10/27/19 Polyvinyl Alcohol [Artificial Tears] 1 drop OU BID PRN drops 10/27/19 Torsemide 100 mg PO BID 30 Days #60 tablet 10/27/19 Triamcinolone 0.1% Lotion [Aristocort 0.1% Lotion -] 1 applic TP BID lotion 10/27/19 Zinc Oxide 1 applic TP DAILY tube 10/27/19 hydrOXYzine PAMOATE [Vistaril -] 25 mg PO Q8H PRN capsule 10/27/19 Insulin Glargine,Hum.rec.anlog [Lantus] 20 unit SQ DAILY 30 Days vial 10/28/19 Lidocaine 5% Patch [Lidoderm -] 1 patch TP DAILY #30 patch 10/28/19 Anemia: Yes (MILD-HIGH WBC X 20 YRS) Asthma: Yes (YRS AGO-STABLE NO MEDS) Cancer: Yes (LEFT BREAST-DX 07/2013) Cardiac Disorders: No 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) COPD: No CHF: No Dementia: No Diabetes: Yes (DX 1962) GI Disorders: Yes (ACID REFLUX) Disorders: Yes (FREQUENT UTI'S-LAST 2012-HOSPITALIZED) HTN: Yes (HX OF 40 YRS) Hypercholesterolemia: No Liver Disease: No Seizures: No Thyroid Disease: Yes (HYPOTHYROIDISM-DX 1949') - Surgical History Abdominal Surgery: Yes (UNBILICAL HERNIA REPAIR-2008) Appendectomy: No Cardiac Surgery: No Cholecystectomy: No Lung Surgery: No Neurologic Surgery: No Orthopedic Surgery: No - Psycho-Social/Smoking History Smoking Status: No Smoking History: Never smoked Have you smoked in the past 12 months: No Number of Cigarettes Smoked Daily: 0 Review of Systems - Review of Systems Constitutional: No: Chills, Fever HEENTM: No: Eye Pain, Nose Pain Respiratory: No: Cough, Shortness of Breath Cardiac (ROS): Yes: Chest Pain. No: Lightheadedness ABD/GI: No: Nausea, Vomiting : Yes: Flank Pain. No: Burning Musculoskeletal: Yes: Back Pain, Joint Pain Integumentary: No: Bruising, Dryness Neurological: No: Headache, Seizure Psychiatric: No: Anxiety, Depression Endocrine: No: Intolerance to Cold, Intolerance to Heat Hematologic/Lymphatic: No: Anemia, Blood Clots *Physical Exam - Physical Exam General Appearance: Yes: Nourished, Appropriately Dressed, Moderate Distress HEENT: positive: EOMI, ARACELI, Normal Voice. negative: Scleral Icterus (R), Scleral Icterus (L) Respiratory/Chest: positive: Chest Tender, Crackles (jamal bases). negative: Rhonchi, Stridor, Wheezing Cardiovascular: positive: S1, S2, Tachycardia, Irregular. negative: Murmur Gastrointestinal/Abdominal: positive: Normal Bowel Sounds, Flat, Soft. negative: Tender, Organomegaly Extremity: positive: Pedal Edema (2+ pitting to knees jamal) Integumentary: positive: Warm, Rash (diffuse erythematous/pink rash with desquamation) Neurologic: positive: Fully Oriented, Alert, Responsive (tender to light touch everywhere), Other (all extremities - full ROM, 4/5 strength, no numbness) ED Treatment Course - LABORATORY CBC & Chemistry Diagram: 10/30/19 02:14 10/30/19 02:14 Medical Decision Making - Medical Decision Making 10/30/19 02:40 EKG - afib w RVR, L anterior fascicular block, HR 111, QTc 492, no ST changes CXR - L shoulder XR - WBC 43 from 20 w L shift, Hgb 8 stable --- 89y/o F hx of Afib on eliquis, dCHF, CKD, breast CA w mets s/p mastectomy, myelodysplasia, IDDM type 2, ESBL UTI, HTN, CVA, chronic back pain, sacral decubitus ulcer, hypothyroidism, on 2-3L NC presenting from [facility] w generalized dermal pain and L shoulder pain. 1. Rash - vasculitis vs sulfa rxn rash 2. Leukocytosis WBC 43 - myelodysplasia vs UTI 3. Pt refused to go back to [facility] 4. CHF exacerbation. jamal crackles, BLE swelling, uptrending BNP CKD unchanged Given tylenol, hydroxyzine, vancomycin (based on previous cultures) Admitted tele for rash, leukocytosis, NH placement, CHF exacerbation, UTI Discharge - Discharge Information Problems reviewed: Yes Clinical Impression/Diagnosis: UTI (urinary tract infection), CHF (congestive heart failure), Skin rash Condition: Guarded - Follow up/Referral - Patient Discharge Instructions - Post Discharge Activity
--- NOTE | 2019-10-30 00:15 | PDOC ---
Attending Attestation - Resident Resident Name: Shakeel Tinsley - HPI HPI: 10/30/19 07:28 Pt presents to the ED complaining of diffuse body pain that has been persistent since her discharge from the hospital. patient is refusing to go back to [place] because her pain is not controlled there. Denies new complaints. - Physicial Exam PE: 10/30/19 07:30 Agree with resident exam. Patient is alert and oriented and in no acute distress. + diffuse skin erythema and peeling. Lungs are clear. Heart regular rate and rhythm. Abdomen soft, non tender, non distended without guarding or rebound. - Medical Decision Making 10/30/19 07:31 Pt presents to the ED with diffuse pain. LAbs show elevated WBC count and UTI. Will admit to medicine for UTI. History of ESBL--will start vanco. Discharge - Discharge Information Problems reviewed: Yes Clinical Impression/Diagnosis: UTI (urinary tract infection), CHF (congestive heart failure), Skin rash Condition: Guarded - Follow up/Referral - Patient Discharge Instructions - Post Discharge Activity
[2019-10-30] MEDS ORDERED: ACETAMINOPHEN 1000 MG/100 ML VIAL (NON FORMULARY) IVPB ONE (00:31)
[2019-10-30] MEDS ORDERED: hydrOXYzine PAMOATE 25 MG CAPSULE (FP) PO ONE ×2 (00:33→00:46)
[2019-10-30] MEDS ORDERED: ACETAMINOPHEN 500 MG TABLET (FP) PO ONE (00:40)
[2019-10-30] MEDS ORDERED: ACETAMINOPHEN 325 MG TABLET (FP) ONE (00:46)
[2019-10-30 02:36] LABS: BASO % 0.5 % (0-2.0); EOS % 0.2 % (0-4.5); HEMATOCRIT 27.5 % (32.4-45.2); HEMOGLOBIN 8.5 GM/dL (10.7-15.3); LYMPH % 1.8 % (8-40); MCHC 30.8 g/dl (32.0-36.0); MEAN CELL VOLUME 97.7 fl (80-96); MEAN PLT VOLUME 9.6 fl (7.5-11.1); MONO % 4.7 % (3.8-10.2); NEUT % 92.8 % (42.8-82.8); PLATELET COUNT 113 K/MM3 (134-434); RBC 2.82 M/mm3 (3.60-5.2); RDW 20.7 % (11.6-15.6)
[2019-10-30 02:40] LABS: WHITE BLOOD COUNT 43.8 K/mm3 (4.0-10.0)
[2019-10-30 02:49] LABS: INR 2.88 (0.83-1.09); PROTHROMBIN TIME (PATIENT) 34.4 SEC (9.7-13.0)
[2019-10-30 03:05] LABS: ALBUMIN 2.4 g/dl (3.4-5.0); BILIRUBIN,TOTAL 0.7 mg/dL (0.2-1); CALCIUM 7.6 mg/dL (8.5-10.1); CREATININE 3.1 mg/dL (0.55-1.3); POTASSIUM 4.1 mmol/L (3.5-5.1)
[2019-10-30 03:14] LABS: BLOOD UREA NITROGEN 109.9 mg/dL (7-18)
[2019-10-30 03:24] LABS: N-TERMINAL BNP 37314.3 pg/ml (5-450)
[2019-10-30 03:30] LABS: SMUDGE CELLS FEW
[2019-10-30 03:31] LABS: ANISOCYTOSIS 2+
[2019-10-30 03:32] LABS: PLATELET ESTIMATE DECREASED
[2019-10-30] MEDS ORDERED: VANCOMYCIN 1 GM in D5W (PRE-DOCKED) 1,000 MG/250 ML IVPB ONE (03:40)
[2019-10-30] MEDS ORDERED: VANCOMYCIN 1 GRAM (PRE-DOCKED) 1,000 MG/250 ML BAG IVPB ONE (03:51)
[2019-10-30 04:55] LABS: EPI CELLS >36 /uL (0-25.1); HYALINE CASTS 12 /uL (0-3.1); URINE APPEARANCE TURBID; URINE BACTERIA 132 /uL (0-1359); URINE BILIRUBIN NEGATIVE (NEGATIVE); URINE COLOR YELLOW; URINE GLUCOSE (UA) TRACE (NEGATIVE); URINE KETONE NEGATIVE (NEGATIVE); URINE LEUK ESTERASE 3+ (NEGATIVE); URINE NITRITE NEGATIVE (NEGATIVE); URINE PROTEIN 3+ (NEGATIVE); URINE UROBILINOGEN 0.2 mg/dL (0.2-1.0); URINE WBC 15582 /uL (0-25.8)
--- NOTE | 2019-10-30 05:20 | HP ---
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 Who presents to the ED via ambulance with generalized dermal pain and L- shoulder pain. Patient denies recent trauma. Patient reports being dissatisfied with her care at [facility] alleging her pain was not being addressed adequately. She reports receiving 5mg of oxy after screaming for pain control for hours, she refuses to go back there. 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, Peripheral Neuropathy, Other (guillain barre syndrome, hx bacterial meningitis 1953) Cardiovascular: Yes: CHF, HTN Gastrointestinal: Yes: Constipation, GERD Renal/: Yes: Renal Failure Heme/Onc: Yes: Anemia, Cancer Psych: Yes: Psychosis Musculoskeletal: Yes: Chronic low back pain, Other Endocrine: Yes: Diabetes Mellitus - Past Surgical History Past Surgical History: Yes: Mastectomy - Smoking History Smoking history: Never smoked Have you smoked in the past 12 months: No Aproximately how many cigarettes per day: 0 - Alcohol/Substance Use Hx Alcohol Use: No History of Substance Use: reports: None - Social History Usual Living Arrangement: Yes: Intermediate ADL: Support Services History of Recent Travel: No Home Medications - Allergies Allergies/Adverse Reactions: Allergies Allergy/AdvReac Type Severity Reaction Status Date / Time NSAIDS (Non-Steroidal Allergy Severe Difficulty Verified 10/30/19 05:27 Anti-Inflamma Breathing ibuprofen Allergy Intermediate Rash Verified 10/30/19 05:27 meloxicam [From Mobic] Allergy Intermediate Rash Verified 10/30/19 05:27 rosiglitazone maleate Allergy Verified 10/30/19 05:27 [From Avandia] albuterol AdvReac Intermediate Elevated Verified 10/30/19 05:27 Blood Pressure epinephrine AdvReac Intermediate Elevated Verified 10/30/19 05:27 Blood Pressure oxycodone HCl [From Percodan] AdvReac Intermediate Elevated Unverified 10/30/19 05:27 Blood Pressure oxycodone terephthalate AdvReac Intermediate Elevated Verified 10/30/19 05:27 [From Percodan] Blood Pressure flu shot AdvReac Severe GILLAIN 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 - Home Medications Home Medications: Ambulatory Orders Calcium Carbonate/Vitamin D3 [Calcium 500-Vit D3 400 Tablet] 1 each PO BID 06/23/18 Carvedilol [Coreg -] 25 mg PO BID 06/23/18 Polyethylene Glycol 3350 [Miralax 119 gm Btl -] 17 gm PO DAILY PRN bottle 04/27/19 Apixaban [Eliquis] 2.5 mg PO BID 08/12/19 Isosorbide Mononitrate [Imdur -] 60 mg PO DAILY 08/12/19 Insulin Lispro [Humalog] 100 unit SQ PRN 09/24/19 Pantoprazole Sodium [Protonix] 40 mg PO DAILY 09/24/19 Multivitamin [One-Daily Multi-Vitamin] 1 each PO DAILY 09/25/19 Acetaminophen [Tylenol .Regular Strength -] 650 mg PO Q6H PRN tablet 10/27/19 Docusate Sodium [Colace -] 300 mg PO HS capsule 10/27/19 Lactobacillus Acidophilus [Bacid -] 1 tab PO DAILY tab 10/27/19 Lidocaine Patch Removal [Lidoderm Patch Removal] 1 each MC DAILY@2200 each 10/27/19 Nystatin Cream [Mycostatin Cream -] 1 applic TP BID applic 10/27/19 Polyvinyl Alcohol [Artificial Tears] 1 drop OU BID PRN drops 10/27/19 Torsemide 100 mg PO BID 30 Days #60 tablet 10/27/19 Triamcinolone 0.1% Lotion [Aristocort 0.1% Lotion -] 1 applic TP BID lotion 10/27/19 Zinc Oxide 1 applic TP DAILY tube 10/27/19 hydrOXYzine PAMOATE [Vistaril -] 25 mg PO Q8H PRN capsule 10/27/19 Insulin Glargine,Hum.rec.anlog [Lantus] 20 unit SQ DAILY 30 Days vial 10/28/19 Lidocaine 5% Patch [Lidoderm -] 1 patch TP DAILY #30 patch 10/28/19 Family Medical History Family History: Unable to Obtain Review of Systems - Review of Systems Constitutional: reports: No Symptoms Eyes: reports: No Symptoms HENT: reports: No Symptoms Neck: reports: No Symptoms Cardiovascular: reports: Edema, Shortness of Breath Respiratory: reports: SOB, SOB on Exertion Gastrointestinal: reports: No Symptoms Genitourinary: reports: No Symptoms Breasts: reports: No Symptoms Reported Musculoskeletal: reports: Back Pain, Other (generalized pain) Integumentary: reports: Rash Neurological: reports: Pre-Existing Deficit, Unsteady Gait Endocrine: reports: No Symptoms Hematology/Lymphatic: reports: No Symptoms Psychiatric: reports: No Symptoms Pain Intensity: 9 Physical Examination Vital Signs: Vital Signs Temperature 99.8 F H 10/30/19 00:10 Pulse Rate 106 H 10/30/19 00:10 Respiratory Rate 25 H 10/30/19 00:10 Blood Pressure 112/73 10/30/19 00:10 O2 Sat by Pulse Oximetry (%) 100 10/30/19 00:10 Constitutional: Yes: Well Nourished, Mild Distress, Obese, Pallor Eyes: Yes: Conjunctiva Clear (pale), EOM Intact, PERRL HENT: Yes: Atraumatic, Normocephalic Neck: Yes: Supple, Trachea Midline Cardiovascular: Yes: Pulse Irregular, S1, S2 Respiratory: Yes: Diminished, On Nasal O2 Gastrointestinal: Yes: Normal Bowel Sounds, Soft, Abdomen, Obese Renal/: Yes: Incontinence Breast(s): Yes: Left (mastectomy) Musculoskeletal: Yes: Back Pain, Muscle Weakness Edema: Yes Edema: LLE: 3+, RLE: 3+ Peripheral Pulses WNL: Yes Integumentary: Yes: Pressure Ulcer (sacrum gluteal), Rash, Skin Tear, Venous Stasis Changes Wound/Incision: Yes: Dressing Dry and Intact Neurological: Yes: Alert, Oriented, Pre-Existing Deficit Psychiatric: Yes: Alert, Oriented Labs: CBC, BMP 10/30/19 02:14 10/30/19 02:14 Laboratory Results - last 24 hr 10/30/19 10/30/19 10/30/19 02:14 02:14 02:14 WBC 43.8 H* RBC 2.82 L Hgb 8.5 L Hct 27.5 L MCV 97.7 H MCH 30.0 MCHC 30.8 L RDW 20.7 H Plt Count 113 L D MPV 9.6 Absolute Neuts (auto) 40.6 H Total Counted 100 Neutrophils % 92.8 H Neutrophils % (Manual) 80.0 Band Neutrophils % 11.0 Lymphocytes % 1.8 L D Lymphocytes % (Manual) 1.0 L D Monocytes % 4.7 Monocytes % (Manual) 3 L Eosinophils % 0.2 D Eosinophils % (Manual) 1.0 Basophils % 0.5 Myelocytes % (Man) 1 Nucleated RBC % 0 Metamyelocytes 4 H D Smudge Cells Few Hypochromia 1+ Platelet Estimate Decreased Platelet Comment No clumping noted Polychromasia 1+ Anisocytosis 2+ Fragmented RBCs Occasional PT with INR 34.40 H INR 2.88 H Sodium 132 L Potassium 4.1 Chloride 98 Carbon Dioxide 21 Anion Gap 13 BUN 109.9 H* Creatinine 3.1 H Est GFR (CKD-EPI)AfAm 14.73 Est GFR (CKD-EPI)NonAf 12.71 Random Glucose 377 H Calcium 7.6 L Total Bilirubin 0.7 AST 17 ALT 14 Alkaline Phosphatase 562 H Creatine Kinase 26 Troponin I 0.05 B-Natriuretic Peptide 10005.3 H Total Protein 6.0 L Albumin 2.4 L Urine Color Urine Appearance Urine pH Ur Specific [place] Urine Protein Urine Glucose (UA) Urine Ketones Urine Blood Urine Nitrite Urine Bilirubin Urine Urobilinogen Ur Leukocyte Esterase Urine WBC (Auto) Urine Casts (Auto) U Epithel Cells (Auto) Urine Bacteria (Auto) 10/30/19 04:10 WBC RBC Hgb Hct MCV MCH MCHC RDW Plt Count MPV Absolute Neuts (auto) Total Counted Neutrophils % Neutrophils % (Manual) Band Neutrophils % Lymphocytes % Lymphocytes % (Manual) Monocytes % Monocytes % (Manual) Eosinophils % Eosinophils % (Manual) Basophils % Myelocytes % (Man) Nucleated RBC % Metamyelocytes Smudge Cells Hypochromia Platelet Estimate Platelet Comment Polychromasia Anisocytosis Fragmented RBCs PT with INR INR Sodium Potassium Chloride Carbon Dioxide Anion Gap BUN Creatinine Est GFR (CKD-EPI)AfAm Est GFR (CKD-EPI)NonAf Random Glucose Calcium Total Bilirubin AST ALT Alkaline Phosphatase Creatine Kinase Troponin I B-Natriuretic Peptide Total Protein Albumin Urine Color Yellow Urine Appearance Turbid Urine pH 5.0 Ur Specific [place] 1.016 Urine Protein 3+ H Urine Glucose (UA) Trace Urine Ketones Negative Urine Blood 3+ H Urine Nitrite Negative Urine Bilirubin Negative Urine Urobilinogen 0.2 Ur Leukocyte Esterase 3+ H Urine WBC (Auto) 51914 Urine Casts (Auto) 12 U Epithel Cells (Auto) >36 Urine Bacteria (Auto) 132 Intake & Output 10/27/19 10/28/19 10/29/19 10/30/19 23:59 23:59 23:59 23:59 Weight 136.078 kg Imaging - Results Chest X-ray: Pending EKG: Image Reviewed Problem List - Problems (1) Acute on chronic diastolic (congestive) heart failure Assessment/Plan: BNP 43896 above baseline (1852-) Continue Lasix Strict INOs Daily weights Chest Xray taken in ED- unable to assess image Appreciate Cardiology consult O2 Monitor CMP Code(s): I50.33 - ACUTE ON CHRONIC DIASTOLIC (CONGESTIVE) HEART FAILURE (2) UTI (urinary tract infection) Assessment/Plan: Will treat for Complicated UTI Hx Kleb Pneumonia- ESBL Enteroccous Faecalis Urine Culture-pending Vancomcyin Appreciate ID consult Monitor CBC Monitor vitals Code(s): N39.0 - URINARY TRACT INFECTION, SITE NOT SPECIFIED (3) Intractable pain Assessment/Plan: Reviewed MR from last visit Patient has multiple comorbidities, multiple allergies Will start on Dilaudid low dose use judiciously, per review of Dr Macdonald's (pain management) note 10/04 Will need to discuss with family and patient Goals of care, Hospice- defer to day team Monitor vitals Supportive care Code(s): R52 - PAIN, UNSPECIFIED (4) Skin rash Assessment/Plan: Likely due to medication Continue to monitor and treat with interventions accordingly Code(s): R21 - RASH AND OTHER NONSPECIFIC SKIN ERUPTION (5) CKD (chronic kidney disease) stage 5, GFR less than 15 ml/min Assessment/Plan: at baseline Avoid Nephrotoxic drugs Consider Nephrology consult Monitor CMP Code(s): N18.5 - CHRONIC KIDNEY DISEASE, STAGE 5 (6) Anemia Assessment/Plan: Hgb 8.5 at baseline Likely due to CKD Will transfuse if Hgb < 7.0 Monitor CBC Code(s): D64.9 - ANEMIA, UNSPECIFIED (7) Breast cancer Assessment/Plan: s/p Mastectomy Continue to monitor Consider Oncology consult Monitor CBC Code(s): C50.919 - MALIGNANT NEOPLASM OF UNSP SITE OF UNSPECIFIED FEMALE BREAST (8) Diabetes Assessment/Plan: not controlled BGMs ISS Monitor CMP HgbA1c- add on Code(s): E11.9 - TYPE 2 DIABETES MELLITUS WITHOUT COMPLICATIONS (9) Leukocytosis Assessment/Plan: Likely secondary to Malignancy vs Infection vs Inflammatory Response Blood Cultures-pending Urine Culture-pending Chest Xray taken- unable to view image Continue Vancomycin for UTI, ?Sepsis Appreciate ID consult Monitor CBC Monitor vitals Code(s): D72.829 - ELEVATED WHITE BLOOD CELL COUNT, UNSPECIFIED (10) GERD (gastroesophageal reflux disease) Assessment/Plan: continue PPI Code(s): K21.9 - GASTRO-ESOPHAGEAL REFLUX DISEASE WITHOUT ESOPHAGITIS (11) HTN (hypertension) Assessment/Plan: stable Monitor BP Continue home meds with parameters Monitor renal function Code(s): I10 - ESSENTIAL (PRIMARY) HYPERTENSION (12) Hypothyroid Assessment/Plan: stable Continue Synthroid Code(s): E03.9 - HYPOTHYROIDISM, UNSPECIFIED (13) History of CVA with residual deficit Assessment/Plan: Continue home meds Fall Precautions Code(s): I69.30 - UNSPECIFIED SEQUELAE OF CEREBRAL INFARCTION Assessment/Plan This is a 89 y/o female from [facility] with a significant past medical history of Afib (on eliquis), dCHF, CKD, Breast Ca w mets, s/p mastectomy, Myelodysplasia, IDDM type 2, ESBL UTI, HTN, CVA ( R- residual deficit), Chronic Lumbar Pain, Sacral Decubitus Ulcer, Hypothyroidism, O2 dependent (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 Admitted to Telemetry for Acute on Chronic dCHF, Afib with RVR, Complicated UTI, Intractable Pain, CKD, Rash for further evaluation of their emergent condition. Plan: See Problem List FEN Fluid Restriction 1L Replete lytes prn Low Na, Diabetic Soft Diet DVT ppx OOB TEDs Continue Eliquis Dispo: Requires Inpatient Care Visit type - Medication Review Med list reviewed for High Risk Meds patients 65 and older: No - Emergency Visit Emergency Visit: Yes ED Registration Date: 10/29/19 Care time: The patient presented to the Emergency Department on the above date and was hospitalized for further evaluation of their emergent condition. - New Patient This patient is new to me today: Yes Date on this admission: 10/30/19 - Critical Care Critical Care patient: No
[2019-10-30] MEDS ORDERED: HEPARIN NA (PORCINE) 5,000 UNITS/ML 1ML VIAL ONE (06:50)
[2019-10-30] MEDS ORDERED: FUROSEMIDE 40 MG/4 ML INJECTABLE VIAL IVPUSH SCH (07:04)
[2019-10-30] MEDS ORDERED: ARTIFICIAL TEARS (POLYVINYL ALCOHOL) OPTH DROPS OU PRN (07:08)
[2019-10-30] MEDS ORDERED: POLYETHYLENE GLYCOL 3350 119 GM BTL PO PRN (07:08)
[2019-10-30] MEDS ORDERED: hydrOXYzine PAMOATE 25 MG CAPSULE (FP) PO PRN (07:08)
[2019-10-30] MEDS ORDERED: FUROSEMIDE 40 MG/4 ML INJECTABLE VIAL ONE (07:42)
[2019-10-30] MEDS ORDERED: LEVOTHYROXINE NA 25 MCG TABLET (FP) ONE (07:42)
[2019-10-30] MEDS: LEVOTHYROXINE NA 100 MCG TABLET (FP) PO SCH (07:51)
[2019-10-30] MEDS ORDERED: FUROSEMIDE 40 MG/4 ML INJECTABLE VIAL IVPB ONE (09:01)
[2019-10-30] MEDS: TORSEMIDE 100 MG TABLET PO SCH ×2 (10:00→19:24)
[2019-10-30] MEDS ORDERED: ERTAPENEM SODIUM 0.5 GM in SODIUM CHLORIDE 50 ML IVPB SCH (10:00)
[2019-10-30] MEDS ORDERED: ZINC OXIDE 20% TOPICAL OINTMENT 30 GM TUBE TP SCH (10:00)
[2019-10-30] MEDS ORDERED: NYSTATIN 100,000 UNIT/GM TOPICAL CREAM 15 GM TUBE TP SCH (10:00)
--- NOTE | 2019-10-30 11:29 | CON.ID ---
Consult Consult Specialty:: infectious disease Referred by:: hospitalist Reason for Consultation:: leukocytosis - History of Present Illness Chief Complaint: generalized pain History of Present Illness: 89 yo female just sent to [place] on 10/27- here from 09/23 to 10/27- seen by ID during that admission for kleb esbl uti and vre had a generalized rash with desquamation of her hands during the admission, ?seen by derm had a skin biopsy that is still pending felt by oncology to have metastatic breast cancer as well (new liver mass and adenopathy) per d/w with the hospitalist- the rash is much improved now admitted with leukocytosis and pyuria her placed this am she is awake and alert - History Source History Provided By: Patient Limitations to Obtaining History: Clinical Condition - 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, Peripheral Neuropathy, Other (guillain barre syndrome, hx bacterial meningitis 1953) Cardio/Vascular: Yes: CHF, HTN Gastrointestinal: Yes: Constipation, GERD Renal/: Yes: Renal Failure Heme/Onc: Yes: Cancer (breast cancer), Myeloproliferative Synd Psych: Yes: Psychosis Musculoskeletal: Yes: Chronic low back pain, Other Endocrine: Yes: Diabetes Mellitus - Past Surgical History Past Surgical History: Yes: Mastectomy - Alcohol/Substance Use Hx Alcohol Use: No History of Substance Use: reports: None - Smoking History Smoking history: Never smoked Have you smoked in the past 12 months: No Aproximately how many cigarettes per day: 0 - Social History Usual Living Arrangement: Intermediate ADL: Support Services History of Recent Travel: No Home Medications - Allergies Allergies/Adverse Reactions: Allergies Allergy/AdvReac Type Severity Reaction Status Date / Time NSAIDS (Non-Steroidal Allergy Severe Difficulty Verified 10/30/19 05:27 Anti-Inflamma Breathing ibuprofen Allergy Intermediate Rash Verified 10/30/19 05:27 meloxicam [From Mobic] Allergy Intermediate Rash Verified 10/30/19 05:27 rosiglitazone maleate Allergy Verified 10/30/19 05:27 [From Avandia] albuterol AdvReac Intermediate Elevated Verified 10/30/19 05:27 Blood Pressure epinephrine AdvReac Intermediate Elevated Verified 10/30/19 05:27 Blood Pressure oxycodone HCl [From Percodan] AdvReac Intermediate Elevated Verified 10/30/19 07:29 Blood Pressure oxycodone terephthalate AdvReac Intermediate Elevated Verified 10/30/19 05:27 [From Percodan] Blood Pressure flu shot AdvReac Severe GILLAIN 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 - Home Medications Home Medications: Ambulatory Orders Carvedilol [Coreg -] 25 mg PO BID 06/23/18 Polyethylene Glycol 3350 [Miralax 119 gm Btl -] 17 gm PO DAILY PRN bottle 04/27/19 Apixaban [Eliquis] 2.5 mg PO BID 08/12/19 Isosorbide Mononitrate [Imdur -] 60 mg PO DAILY 08/12/19 Insulin Lispro [Humalog] 100 unit SQ PRN 09/24/19 Pantoprazole Sodium [Protonix] 40 mg PO DAILY 09/24/19 Multivitamin [One-Daily Multi-Vitamin] 1 each PO DAILY 09/25/19 Acetaminophen [Tylenol .Regular Strength -] 650 mg PO Q6H PRN tablet 10/27/19 Lactobacillus Acidophilus [Bacid -] 1 tab PO DAILY tab 10/27/19 Lidocaine Patch Removal [Lidoderm Patch Removal] 1 each MC DAILY@2200 each 10/27/19 Nystatin Cream [Mycostatin Cream -] 1 applic TP BID applic 10/27/19 Polyvinyl Alcohol [Artificial Tears] 1 drop OU BID PRN drops 10/27/19 Torsemide 100 mg PO BID 30 Days #60 tablet 10/27/19 Triamcinolone 0.1% Lotion [Aristocort 0.1% Lotion -] 1 applic TP BID lotion 10/27/19 Zinc Oxide 1 applic TP DAILY tube 10/27/19 hydrOXYzine PAMOATE [Vistaril -] 25 mg PO Q8H PRN capsule 10/27/19 Insulin Glargine,Hum.rec.anlog [Lantus] 20 unit SQ DAILY 30 Days vial 10/28/19 Lidocaine 5% Patch [Lidoderm -] 1 patch TP DAILY #30 patch 10/28/19 Family Medical History Family History: Denies Review of Systems - Review of Systems Constitutional: reports: No Symptoms. denies: Chills, Fever Eyes: reports: No Symptoms HENT: reports: No Symptoms Neck: reports: No Symptoms Cardiovascular: reports: No Symptoms Respiratory: reports: No Symptoms. denies: Cough, SOB Gastrointestinal: reports: No Symptoms Genitourinary: reports: No Symptoms Musculoskeletal: reports: Other (left shoulder pain) Integumentary: reports: Rash Neurological: reports: No Symptoms Physical Exam Vital Signs: Vital Signs Temperature 98.1 F 10/30/19 06:12 Pulse Rate 101 H 10/30/19 06:12 Respiratory Rate 21 H 10/30/19 06:12 Blood Pressure 112/69 10/30/19 06:12 O2 Sat by Pulse Oximetry (%) 100 10/30/19 06:12 Constitutional: Yes: Anxious Eyes: Yes: Conjunctiva Clear HENT: Yes: Atraumatic, Normocephalic, Other (no oral lesions) Neck: Yes: Supple Cardiovascular: Yes: Regular Rate and Rhythm Respiratory: Yes: Regular, CTA Bilaterally Gastrointestinal: Yes: Normal Bowel Sounds, Soft Edema: No Integumentary: Yes: Rash (diffuse macular rash resolving and flaking on her anterior chest and abd, back with areas where skin has been denuded, hand and feet are peeling) Neurological: Yes: Alert Labs: CBC, BMP 10/30/19 02:14 10/30/19 02:14 Imaging - Results Chest X-ray: Report Reviewed, Image Reviewed Problem List - Problems (1) Leukocytosis Code(s): D72.829 - ELEVATED WHITE BLOOD CELL COUNT, UNSPECIFIED (2) UTI (urinary tract infection) Code(s): N39.0 - URINARY TRACT INFECTION, SITE NOT SPECIFIED (3) Skin rash Code(s): R21 - RASH AND OTHER NONSPECIFIC SKIN ERUPTION (4) Breast cancer Code(s): C50.919 - MALIGNANT NEOPLASM OF UNSP SITE OF UNSPECIFIED FEMALE BREAST (5) MDS (myelodysplastic syndrome) Code(s): D46.9 - MYELODYSPLASTIC SYNDROME, UNSPECIFIED Assessment/Plan switch to meropenem and vanco f/u cultures f/u skin biopsy results adequate pain management d/w hospitalist
[2019-10-30] MEDS: INSULIN (LEVEMIR) 100 UNITS/ML UNITS SQ SCH (12:16)
[2019-10-30] MEDS: INSULIN SLIDING SCALE (NOVOLOG) 1 VIAL SQ SCH ×3 (12:17→22:35)
[2019-10-30] MEDS: NYSTATIN 100,000 UNIT/GM TOPICAL CREAM 15 GM TUBE TP SCH ×2 (12:17→22:29)
[2019-10-30] MEDS: ZINC OXIDE 20% TOPICAL OINTMENT 30 GM TUBE TP SCH (12:18)
--- NOTE | 2019-10-30 12:40 | CON.CARD ---
Cardiology Consult (text) - Consultation Consultation Note: Consultation Note: cc: back pain History of Present Illness: 89 year old woman with a history of Afib on Eliquis, HTN, hyperlipidemia, type 2 DM, CVAs, CKD with baseline creat of 2-2.5, hypothyroidism, GERD, breast cancer s/p surgery, myelodysplasia, hx of Guillain Inchelium syndrome, gait instability who presented to the ED with back pain, le edema. Recently admitted for over one month for edema, dyspnea, IV diuresis. Had been recommended dialysis vs hospice care, patient refused and IV lasix was continued for diuresis. Discharged on torsemide, now returns from [facility] with back pain. 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 Cardio/Vascular: Yes: HTN Gastrointestinal: Yes: GERD Endocrine: Yes: Diabetes Mellitus ALL: Noted in EMR. NSAIDS Family hx: not contributory to this presentation Social hx: Non smoker Home Medications Medication Instructions Recorded Carvedilol [Coreg -] 25 mg PO BID 06/23/18 Polyethylene Glycol 3350 [Miralax 17 gm PO DAILY PRN bottle 04/27/19 119 gm Btl -] Apixaban [Eliquis] 2.5 mg PO BID 08/12/19 Isosorbide Mononitrate [Imdur -] 60 mg PO DAILY 08/12/19 Insulin Lispro [Humalog] 100 unit SQ PRN 09/24/19 Pantoprazole Sodium [Protonix] 40 mg PO DAILY 09/24/19 Multivitamin [One-Daily 1 each PO DAILY 09/25/19 Multi-Vitamin] Acetaminophen [Tylenol .Regular 650 mg PO Q6H PRN tablet 10/27/19 Strength -] Lactobacillus Acidophilus [Bacid -] 1 tab PO DAILY tab 10/27/19 Lidocaine Patch Removal [Lidoderm 1 each MC DAILY@2200 each 10/27/19 Patch Removal] Nystatin Cream [Mycostatin Cream -] 1 applic TP BID applic 10/27/19 Polyvinyl Alcohol [Artificial 1 drop OU BID PRN drops 10/27/19 Tears] Torsemide 100 mg PO BID 30 Days #60 tablet 10/27/19 Triamcinolone 0.1% Lotion 1 applic TP BID lotion 10/27/19 [Aristocort 0.1% Lotion -] Zinc Oxide 1 applic TP DAILY tube 10/27/19 hydrOXYzine PAMOATE [Vistaril -] 25 mg PO Q8H PRN capsule 10/27/19 Insulin Glargine,Hum.rec.anlog 20 unit SQ DAILY 30 Days vial 10/28/19 [Lantus] Lidocaine 5% Patch [Lidoderm -] 1 patch TP DAILY #30 patch 10/28/19 Vital Signs Period Temp Pulse Resp BP Sys/Hernandez Pulse Ox Last 24 Hr 98.1 F-99.8 F 101-106 - 112-112/69-73 100-100 nad no jvd dec bs bases nl eff aao3 1+ le edema bl, no c/c irreg s1s2 no mrg abd nt nd pos bs no jaundice diaphoresis pos dp pt no carotid bruits Laboratory Last Values WBC 43.8 K/mm3 (4.0-10.0) H* 10/30/19 02:14 RBC 2.82 M/mm3 (3.60-5.2) L 10/30/19 02:14 Hgb 8.5 GM/dL (10.7-15.3) L 10/30/19 02:14 Hct 27.5 % (32.4-45.2) L 10/30/19 02:14 MCV 97.7 fl (80-96) H 10/30/19 02:14 MCH 30.0 pg (25.7-33.7) 10/30/19 02:14 MCHC 30.8 g/dl (32.0-36.0) L 10/30/19 02:14 RDW 20.7 % (11.6-15.6) H 10/30/19 02:14 Plt Count 113 K/MM3 (134-434) L D 10/30/19 02:14 MPV 9.6 fl (7.5-11.1) 10/30/19 02:14 Absolute Neuts (auto) 40.6 K/mm3 (1.5-8.0) H 10/30/19 02:14 Total Counted 100 10/30/19 02:14 Neutrophils % 92.8 % (42.8-82.8) H 10/30/19 02:14 Neutrophils % (Manual) 80.0 % (42.8-82.8) 10/30/19 02:14 Band Neutrophils % 11.0 % 10/30/19 02:14 Lymphocytes % 1.8 % (8-40) L D 10/30/19 02:14 Lymphocytes % (Manual) 1.0 % (8-40) L D 10/30/19 02:14 Monocytes % 4.7 % (3.8-10.2) 10/30/19 02:14 Monocytes % (Manual) 3 % (3.8-10.2) L 10/30/19 02:14 Eosinophils % 0.2 % (0-4.5) D 10/30/19 02:14 Eosinophils % (Manual) 1.0 % (0-4.5) 10/30/19 02:14 Basophils % 0.5 % (0-2.0) 10/30/19 02:14 Myelocytes % (Man) 1 % (0-2) 10/30/19 02:14 Nucleated RBC % 0 % (0-0) 10/30/19 02:14 Metamyelocytes 4 % (0-2) H D 10/30/19 02:14 Smudge Cells Few 10/30/19 02:14 Hypochromia 1+ 10/30/19 02:14 Platelet Estimate Decreased 10/30/19 02:14 Platelet Comment No clotting detected 10/30/19 02:14 Platelet Comment No clumping noted 10/30/19 02:14 Polychromasia 1+ 10/30/19 02:14 Anisocytosis 2+ 10/30/19 02:14 Fragmented RBCs Occasional 10/30/19 02:14 PT with INR 34.40 SEC (9.7-13.0) H 10/30/19 02:14 INR 2.88 (0.83-1.09) H 10/30/19 02:14 Sodium 132 mmol/L (136-145) L 10/30/19 02:14 Potassium 4.1 mmol/L (3.5-5.1) 10/30/19 02:14 Chloride 98 mmol/L (98-107) 10/30/19 02:14 Carbon Dioxide 21 mmol/L (21-32) 10/30/19 02:14 Anion Gap 13 MMOL/L (8-16) 10/30/19 02:14 BUN 109.9 mg/dL (7-18) H* 10/30/19 02:14 Creatinine 3.1 mg/dL (0.55-1.3) H 10/30/19 02:14 Est GFR (CKD-EPI)AfAm 14.73 10/30/19 02:14 Est GFR (CKD-EPI)NonAf 12.71 10/30/19 02:14 POC Glucometer 319 UNITS (80-120) 10/30/19 12:02 Random Glucose 377 mg/dL (74-106) H 10/30/19 02:14 Calcium 7.6 mg/dL (8.5-10.1) L 10/30/19 02:14 Total Bilirubin 0.7 mg/dL (0.2-1) 10/30/19 02:14 AST 17 U/L (15-37) 10/30/19 02:14 ALT 14 U/L (13-61) 10/30/19 02:14 Alkaline Phosphatase 562 U/L (45-117) H 10/30/19 02:14 Creatine Kinase 26 U/L (26-192) 10/30/19 02:14 Troponin I 0.03 ng/ml (0.00-0.05) 10/30/19 11:13 B-Natriuretic Peptide 62868.3 pg/ml (5-450) H 10/30/19 02:14 Total Protein 6.0 g/dl (6.4-8.2) L 10/30/19 02:14 Albumin 2.4 g/dl (3.4-5.0) L 10/30/19 02:14 Urine Color Yellow 10/30/19 04:10 Urine Appearance Turbid 10/30/19 04:10 Urine pH 5.0 (5.0-8.0) 10/30/19 04:10 Ur Specific [place] 1.016 (1.010-1.035) 10/30/19 04:10 Urine Protein 3+ (NEGATIVE) H 10/30/19 04:10 Urine Glucose (UA) Trace (NEGATIVE) 10/30/19 04:10 Urine Ketones Negative (NEGATIVE) 10/30/19 04:10 Urine Blood 3+ (NEGATIVE) H 10/30/19 04:10 Urine Nitrite Negative (NEGATIVE) 10/30/19 04:10 Urine Bilirubin Negative (NEGATIVE) 10/30/19 04:10 Urine Urobilinogen 0.2 mg/dL (0.2-1.0) 10/30/19 04:10 Ur Leukocyte Esterase 3+ (NEGATIVE) H 10/30/19 04:10 Urine WBC (Auto) 00243 /uL (0-25.8) 10/30/19 04:10 Urine Casts (Auto) 12 /uL (0-3.1) 10/30/19 04:10 U Epithel Cells (Auto) >36 /uL (0-25.1) 10/30/19 04:10 Urine Bacteria (Auto) 132 /uL (0-1359) 10/30/19 04:10 tele: afib, rate ok echo 03/2019 nl LV function, mild MR, mild TR, PASP at least 49 mmHg IMP/REC: Acute diastolic heart failure exacerbation: - recent echo nl LV function - no signs acs - holding aldactone - recent admission for CHF exac, was on IV lasix. it was rec'd that pt have HD but she declined so diuresed with lasix 80 mg IV TID - volume status stable here- d/w renal - resume torsemide 100 mg PO BID - renal fxn stable, resp status/edema reasonably compensated. ongoing d/w dr destini hodge dialysis - seen by palliative care prior admit, wished to continue fighting, refused hospice care - cont nitrates for cardiorenal syndrome HTN: - bp stable - cont current meds crow on CKD: - Baseline creat prior is 2-2.5, elevated now, likely cardiorenal - renal following PAF: -cont coreg for rate control -cont eliquis low dose (age, creatinine) - can dc tele anemia: -CKD contributing likely -would continue adjusted dose eliquis for now as doing, close monitoring of counts--if drops or + melena, will have to hold. she is likely too hi risk for GI scopes. liver mass: -heme/onc following
--- NOTE | 2019-10-30 13:42 | CONSULT ---
Consult Consult Specialty:: Nephrology Reason for Consultation:: CKD - History of Present Illness Chief Complaint: edema History of Present Illness: Pt is an 89 year old female with pmhx of ckd, a-fib, chf, breast cancer, myelodysplasia, dm, esbl, htn, cva, hypothryroid and skin rash who presents to the ER for generalized pain and malaise. She was recently discharged from the hospital. She still has edema but does not feel its much worse. She denies sh ortness of breath. SHe is awake and alert. She says she was not happy with the care at [facility], [place] and wants to go to a different place. She denies chest pain or palpitations. 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, Peripheral Neuropathy, Other (guillain barre syndrome, hx bacterial meningitis 1953) Cardio/Vascular: Yes: CHF, HTN Gastrointestinal: Yes: Constipation, GERD Renal/: Yes: Renal Failure Psych: Yes: Psychosis Musculoskeletal: Yes: Chronic low back pain, Other Endocrine: Yes: Diabetes Mellitus - Past Surgical History Past Surgical History: Yes: Mastectomy - Alcohol/Substance Use Hx Alcohol Use: No History of Substance Use: reports: None - Smoking History Smoking history: Never smoked Have you smoked in the past 12 months: No Aproximately how many cigarettes per day: 0 - Social History Usual Living Arrangement: Alone ADL: Support Services History of Recent Travel: No Home Medications - Allergies Allergies/Adverse Reactions: Allergies Allergy/AdvReac Type Severity Reaction Status Date / Time NSAIDS (Non-Steroidal Allergy Severe Difficulty Verified 10/30/19 05:27 Anti-Inflamma Breathing ibuprofen Allergy Intermediate Rash Verified 10/30/19 05:27 meloxicam [From Mobic] Allergy Intermediate Rash Verified 10/30/19 05:27 rosiglitazone maleate Allergy Verified 10/30/19 05:27 [From Avandia] albuterol AdvReac Intermediate Elevated Verified 10/30/19 05:27 Blood Pressure epinephrine AdvReac Intermediate Elevated Verified 10/30/19 05:27 Blood Pressure oxycodone HCl [From Percodan] AdvReac Intermediate Elevated Verified 10/30/19 07:29 Blood Pressure oxycodone terephthalate AdvReac Intermediate Elevated Verified 10/30/19 05:27 [From Percodan] Blood Pressure flu shot AdvReac Severe GILLAIN 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 - Home Medications Home Medications: Ambulatory Orders Carvedilol [Coreg -] 25 mg PO BID 06/23/18 Polyethylene Glycol 3350 [Miralax 119 gm Btl -] 17 gm PO DAILY PRN bottle 04/08 04/26 Apixaban [Eliquis] 2.5 mg PO BID 08/12/19 Isosorbide Mononitrate [Imdur -] 60 mg PO DAILY 08/12/19 Insulin Lispro [Humalog] 100 unit SQ PRN 09/24/19 Pantoprazole Sodium [Protonix] 40 mg PO DAILY 09/24/19 Multivitamin [One-Daily Multi-Vitamin] 1 each PO DAILY 09/25/19 Acetaminophen [Tylenol .Regular Strength -] 650 mg PO Q6H PRN tablet 10/27/19 Lactobacillus Acidophilus [Bacid -] 1 tab PO DAILY tab 10/27/19 Lidocaine Patch Removal [Lidoderm Patch Removal] 1 each MC DAILY@2200 each 10/27/19 Nystatin Cream [Mycostatin Cream -] 1 applic TP BID applic 10/27/19 Polyvinyl Alcohol [Artificial Tears] 1 drop OU BID PRN drops 10/27/19 Torsemide 100 mg PO BID 30 Days #60 tablet 10/27/19 Triamcinolone 0.1% Lotion [Aristocort 0.1% Lotion -] 1 applic TP BID lotion 10/27/19 Zinc Oxide 1 applic TP DAILY tube 10/27/19 hydrOXYzine PAMOATE [Vistaril -] 25 mg PO Q8H PRN capsule 10/27/19 Insulin Glargine,Hum.rec.anlog [Lantus] 20 unit SQ DAILY 30 Days vial 10/28/19 Lidocaine 5% Patch [Lidoderm -] 1 patch TP DAILY #30 patch 10/28/19 Family Medical History Family History: Denies Review of Systems - Review of Systems Constitutional: reports: Malaise, Weakness Eyes: reports: No Symptoms HENT: reports: No Symptoms Neck: reports: No Symptoms Cardiovascular: reports: No Symptoms Respiratory: reports: No Symptoms Gastrointestinal: reports: No Symptoms Genitourinary: reports: No Symptoms Musculoskeletal: reports: No Symptoms Integumentary: reports: No Symptoms Neurological: reports: No Symptoms Endocrine: reports: No Symptoms Hematology/Lymphatic: reports: No Symptoms Psychiatric: reports: No Symptoms Physical Exam Vital Signs: Vital Signs Temperature 98.1 F 10/30/19 06:12 Pulse Rate 101 H 10/30/19 06:12 Respiratory Rate 21 H 10/30/19 06:12 Blood Pressure 112/69 10/30/19 06:12 O2 Sat by Pulse Oximetry (%) 100 10/30/19 06:12 Constitutional: Yes: Calm Eyes: Yes: Conjunctiva Clear HENT: Yes: Atraumatic Neck: Yes: Supple Cardiovascular: Yes: S1, S2 Respiratory: Yes: CTA Bilaterally Gastrointestinal: Yes: Normal Bowel Sounds, Soft Renal/: Yes: WNL Musculoskeletal: Yes: WNL Edema: Yes Edema: LLE: 2+, RLE: 2+ Integumentary: Yes: Rash Neurological: Yes: Oriented Psychiatric: Yes: Oriented Labs: CBC, BMP 10/30/19 02:14 10/30/19 02:14 Imaging - Results Chest X-ray: Report Reviewed Problem List - Problems (1) Acute on chronic diastolic (congestive) heart failure Code(s): I50.33 - ACUTE ON CHRONIC DIASTOLIC (CONGESTIVE) HEART FAILURE (2) CHF (congestive heart failure) Code(s): I50.9 - HEART FAILURE, UNSPECIFIED (3) CKD (chronic kidney disease) stage 5, GFR less than 15 ml/min Code(s): N18.5 - CHRONIC KIDNEY DISEASE, STAGE 5 Assessment/Plan Current Medications Generic Name Dose Route Start Last Admin Trade Name Freq PRN Reason Stop Dose Admin Acetaminophen 650 mg 10/30/19 07:08 Tylenol - PO Q6H PRN PAIN LEVEL 6-10 Apixaban 2.5 mg 10/30/19 10:00 Eliquis - PO BID AMRIT Artificial Tears 1 drop 10/30/19 07:08 Artificial Tears OU BID PRN DRY EYES Bacitracin 1 applic 10/30/19 10:00 Bacitracin - TP DAILY AMRIT Carvedilol 25 mg 10/30/19 10:00 Coreg - PO BID AMRIT Docusate Sodium 300 mg 10/30/19 22:00 Colace - PO HS AMRIT Hydroxyzine Pamoate 25 mg 10/30/19 07:08 Vistaril - PO Q8H PRN FOR ITCHING Ertapenem 0.5 gm/ Sodium 50 mls @ 100 mls/hr 10/30/19 10:00 10/30/19 12:17 Chloride IVPB 100 mls/hr DAILY AMRIT Administration Vancomycin HCl 1 gm in 250 mls @ 166.667 mls/hr 10/31/19 06:00 Vancomycin (Pre-Docked) IVPB DAILY@0600 [facility] Protocol Insulin Aspart 1 vial 10/30/19 11:00 10/30/19 12:17 Novolog Vial Sliding Scale - SQ 8 units ACHS [facility] Administration Protocol Insulin Detemir 20 units 10/30/19 08:30 10/30/19 12:16 Levemir Vial SQ 20 units DAILY@0700 AMRIT Administration Isosorbide Mononitrate 60 mg 10/30/19 10:00 Imdur - PO DAILY AMRIT Levothyroxine Sodium 100 mcg 10/30/19 07:00 10/30/19 07:51 Synthroid - PO Not Given DAILY@0700 [facility] Lidocaine 1 patch 10/30/19 10:00 Lidoderm Patch - TP DAILY [facility] Miscellaneous 1 each 10/30/19 22:00 Lidoderm Patch Removal MC DAILY@2200 [facility] Multi-Ingredient Ointment 1 applic 10/30/19 10:00 10/30/19 12:18 Zinc Oxide TP 1 applic DAILY AMRIT Administration Multivitamins/Minerals/Vitamin C 1 tab 10/30/19 10:00 Tab-A-Vit - PO DAILY [facility] Nystatin 1 applic 10/30/19 10:00 10/30/19 12:17 Mycostatin Cream - TP 1 applic BID AMRIT Administration Pantoprazole Sodium 40 mg 10/30/19 10:00 Protonix - PO DAILY [facility] Polyethylene Glycol 17 gm 10/30/19 07:08 Miralax (For Daily Use) - PO DAILY PRN CONSTIPATION Torsemide 100 mg 10/30/19 10:00 Demadex - PO BID@0600,1800 [facility] Impression 1. proteinuria 2. hypothyroid 3. HTN 4. DM 5. fluid overload 6. breast cancer 7. anemia 8. CKD 9. CHF 10. hyponatremia 11. hypokalemia 12. MAURICE Plan - resume torsemide - cont to monitor renal function - repeat labs in am - elevate legs when sitting - restrict fluid intake - follow skin biopsy result - heme follow up - discussed with medical team
--- NOTE | 2019-10-30 13:46 | PN ---
Teaching Attending Note Name of Resident: Shaq White ATTENDING PHYSICIAN STATEMENT I saw and evaluated the patient. I reviewed the resident's note and discussed the case with the resident. I agree with the resident's findings and plan as documented. SUBJECTIVE: she came as she did not like service in [place]. her daughter made her come. she comp lained of generalized body aches, and was not given enough meds there. repoert dyuria. No abd pain . she denies SOB or cough . her itching is slightly better OBJECTIVE: NAD, awake, alert. CV: RRR Lungs: crackles at bases bilaterally , a little better coomared to her dc day Ext: edema on legs and ankles is slightly better than dc day . no ulcers on heels ,peeling skin on feet. dark discoloration on L heel but no ulcers . R upper monique superficial wounds at site of skin Bx with scabs. No surrounding erythema. 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 ski non face is less flaky peeling skin on hands and abd and feet is better decub ulcers satge 2 on non blanching base on sacral and upper gluteal areas . horizontal excoriated skin on posterior upper thighs erythematous moist skin in groins and upper thighs ans outer labia majora. skin excoriation on R external labia majora and left perineal area. excoriations/bleeding on back especially L side. ASSESSMENT AND PLAN: 89 y/o lady with h/o diastolic CHF, a-fib (on Eliquis), CKD, breast cancer s/p mastectomy, myelodysplasia, IDDM type 2, hypothyroidism, HLD, CVA, and GERD , recent admission for CHF and other condition who was dc on 10/27 to rehab and came back on 10/28 as she did not like rehab. she was found to have worsening leukocytosis and UTI 1- worsening leukocytosis 2- UTI 3- chronci diastolic heart failure 4- CKD 5- h/o MDS , chronic leukocytosis 6- chronic anemia 7- skin excoriationand decub ulcers on sacral/gluteal area 8- hyponatremia 9- h/o A fib 10 - maculopapular rash 11- h/o DM 12- h/o Liver mass ,retroperitoneal LAP, b/l adrenal nodules on imaging form last admission plan - start ertapenema. d/w felice Norris added. - follow blood and urine cx. - wbc increased from base line but eosinophilia has resolved. - volume status is better compared to dc day . will resume her torsemide 100 BID - cont coreg 25 BID. - cont eliquis - cont imdur - rash has improved after holding spironolactone, HZN. - insert her - add nystatin and zinc oxyde to groins. - monitor renal function and volume status - order air mattress - non stick dressings on back excoriated skin. - allevyn dressing on sacrum - ABIOLA wraps on legs - heel protection - her breast cancer treatment to be started by her oncologist after dc - follow up skin Bx on Friday - H1 blockers for itching - L shoulder xray with no Fx, or dislocation . - cont levemir and SSI - cont lidocaine patch and add oxycodone case was d/w RN. will get palliative care on board again.
[2019-10-30] MEDS ORDERED: FUROSEMIDE 40 MG/4 ML INJECTABLE VIAL IVPB SCH (14:00)
[2019-10-30] MEDS: LIDOCAINE 5% TOPICAL PATCH TP SCH (15:11)
[2019-10-30] MEDS: PANTOPRAZOLE 40 MG TABLET PO SCH (15:12)
[2019-10-30] MEDS: MULTIVITAMINS (DAILY MVI) TABLET (FP) PO SCH (15:12)
[2019-10-30] MEDS: ISOSORBIDE MONONITRATE 60 MG TAB.SR.24H (FP) PO SCH (15:12)
[2019-10-30] MEDS: BACITRACIN 15 GM TUBE TOPICAL OINTMENT TP SCH (15:13)
[2019-10-30] MEDS: ACETAMINOPHEN 325 MG TABLET (FP) PO PRN (15:17)
[2019-10-30] MEDS: oxyCODONE HCL 5 MG TABLET PO PRN (15:18)
[2019-10-30] MEDS: APIXABAN 2.5 MG TABLET PO SCH ×2 (15:26→22:28)
[2019-10-30] MEDS: CARVEDILOL 25 MG TABLET (FP) PO SCH ×2 (15:26→22:28)
--- NOTE | 2019-10-30 18:46 | PN ---
Physical Exam: SUBJECTIVE: No overnight events. Patient seen and examined. Pt endorses pain throughout her body, but worst in her L arm. Pruritus improved. OBJECTIVE: Vital Signs Period Temp Pulse Resp BP Sys/Hernandez Pulse Ox Last 24 Hr 97.4 F-99.8 F 94-109 21-25 112-130/56-73 99-100 GENERAL: The patient is awake, alert, and fully oriented, in distress due to pain HEENT: NT, NC MMM LUNGS: crackles b/l no wheezes, no crackles, no accessory muscle use. HEART: Regular rate and rhythm, S1, S2 without murmur, rub or gallop. ABDOMEN: Soft, nontender, nondistended, normoactive bowel sounds, no guarding, no rebound EXTREMITIES: 2+ pulses, warm, well-perfused, 2+ edema of LE, 3+ edema feet b/l. wound at skin biopsy site on R knee. L arm is tender to palpation and active/passive movement. NEUROLOGICAL: Normal speech, gait not observed. PSYCH: Normal mood, normal affect. SKIN: peeling diffusely. maculopapular rash. excoriations on R labia majora, and thighs. BACK: stage 2 sacral ulcer & gluteal region. excoriations on upper back. Laboratory Results - last 24 hr 10/30/19 10/30/19 10/30/19 02:14 02:14 02:14 WBC 43.8 H* RBC 2.82 L Hgb 8.5 L Hct 27.5 L MCV 97.7 H MCH 30.0 MCHC 30.8 L RDW 20.7 H Plt Count 113 L D MPV 9.6 Absolute Neuts (auto) 40.6 H Total Counted 100 Neutrophils % 92.8 H Neutrophils % (Manual) 80.0 Band Neutrophils % 11.0 Lymphocytes % 1.8 L D Lymphocytes % (Manual) 1.0 L D Monocytes % 4.7 Monocytes % (Manual) 3 L Eosinophils % 0.2 D Eosinophils % (Manual) 1.0 Basophils % 0.5 Myelocytes % (Man) 1 Nucleated RBC % 0 Metamyelocytes 4 H D Smudge Cells Few Hypochromia 1+ Platelet Estimate Decreased Platelet Comment No clumping noted Polychromasia 1+ Anisocytosis 2+ Fragmented RBCs Occasional PT with INR 34.40 H INR 2.88 H Sodium 132 L Potassium 4.1 Chloride 98 Carbon Dioxide 21 Anion Gap 13 BUN 109.9 H* Creatinine 3.1 H Est GFR (CKD-EPI)AfAm 14.73 Est GFR (CKD-EPI)NonAf 12.71 POC Glucometer Random Glucose 377 H Calcium 7.6 L Total Bilirubin 0.7 AST 17 ALT 14 Alkaline Phosphatase 562 H Creatine Kinase 26 Troponin I 0.05 B-Natriuretic Peptide 60929.3 H Total Protein 6.0 L Albumin 2.4 L Urine Color Urine Appearance Urine pH Ur Specific [place] Urine Protein Urine Glucose (UA) Urine Ketones Urine Blood Urine Nitrite Urine Bilirubin Urine Urobilinogen Ur Leukocyte Esterase Urine WBC (Auto) Urine Casts (Auto) U Epithel Cells (Auto) Urine Bacteria (Auto) 10/30/19 10/30/19 10/30/19 04:10 11:13 12:02 WBC RBC Hgb Hct MCV MCH MCHC RDW Plt Count MPV Absolute Neuts (auto) Total Counted Neutrophils % Neutrophils % (Manual) Band Neutrophils % Lymphocytes % Lymphocytes % (Manual) Monocytes % Monocytes % (Manual) Eosinophils % Eosinophils % (Manual) Basophils % Myelocytes % (Man) Nucleated RBC % Metamyelocytes Smudge Cells Hypochromia Platelet Estimate Platelet Comment Polychromasia Anisocytosis Fragmented RBCs PT with INR INR Sodium Potassium Chloride Carbon Dioxide Anion Gap BUN Creatinine Est GFR (CKD-EPI)AfAm Est GFR (CKD-EPI)NonAf POC Glucometer 319 Random Glucose Calcium Total Bilirubin AST ALT Alkaline Phosphatase Creatine Kinase Troponin I 0.03 B-Natriuretic Peptide Total Protein Albumin Urine Color Yellow Urine Appearance Turbid Urine pH 5.0 Ur Specific [place] 1.016 Urine Protein 3+ H Urine Glucose (UA) Trace Urine Ketones Negative Urine Blood 3+ H Urine Nitrite Negative Urine Bilirubin Negative Urine Urobilinogen 0.2 Ur Leukocyte Esterase 3+ H Urine WBC (Auto) 95318 Urine Casts (Auto) 12 U Epithel Cells (Auto) >36 Urine Bacteria (Auto) 132 10/30/19 18:18 WBC RBC Hgb Hct MCV MCH MCHC RDW Plt Count MPV Absolute Neuts (auto) Total Counted Neutrophils % Neutrophils % (Manual) Band Neutrophils % Lymphocytes % Lymphocytes % (Manual) Monocytes % Monocytes % (Manual) Eosinophils % Eosinophils % (Manual) Basophils % Myelocytes % (Man) Nucleated RBC % Metamyelocytes Smudge Cells Hypochromia Platelet Estimate Platelet Comment Polychromasia Anisocytosis Fragmented RBCs PT with INR INR Sodium Potassium Chloride Carbon Dioxide Anion Gap BUN Creatinine Est GFR (CKD-EPI)AfAm Est GFR (CKD-EPI)NonAf POC Glucometer 118 Random Glucose Calcium Total Bilirubin AST ALT Alkaline Phosphatase Creatine Kinase Troponin I B-Natriuretic Peptide Total Protein Albumin Urine Color Urine Appearance Urine pH Ur Specific [place] Urine Protein Urine Glucose (UA) Urine Ketones Urine Blood Urine Nitrite Urine Bilirubin Urine Urobilinogen Ur Leukocyte Esterase Urine WBC (Auto) Urine Casts (Auto) U Epithel Cells (Auto) Urine Bacteria (Auto) Active Medications Generic Name Dose Route Start Last Admin Trade Name Freq PRN Reason Stop Dose Admin Acetaminophen 650 mg 10/30/19 07:08 10/30/19 15:17 Tylenol - PO 650 mg Q6H PRN Administration PAIN LEVEL 4-6 Apixaban 2.5 mg 10/30/19 10:00 10/30/19 15:26 Eliquis - PO Not Given BID [facility] Artificial Tears 1 drop 10/30/19 07:08 Artificial Tears OU BID PRN DRY EYES Bacitracin 1 applic 10/30/19 10:00 10/30/19 15:13 Bacitracin - TP 1 applic DAILY [facility] Administration Carvedilol 25 mg 10/30/19 10:00 10/30/19 15:26 Coreg - PO Not Given BID [facility] Docusate Sodium 300 mg 10/30/19 22:00 Colace - PO HS [facility] Hydroxyzine Pamoate 25 mg 10/30/19 07:08 Vistaril - PO Q8H PRN FOR ITCHING Vancomycin HCl 1 gm in 250 mls @ 166.667 mls/hr 10/31/19 06:00 Vancomycin (Pre-Docked) IVPB DAILY@0600 [facility] Protocol Meropenem 500 mg/ Dextrose 100 mls @ 200 mls/hr 10/30/19 15:30 IVPB Q12H [facility] Insulin Aspart 1 vial 10/30/19 11:00 10/30/19 18:24 Novolog Vial Sliding Scale - SQ Not Given ACHS [facility] Protocol Insulin Detemir 20 units 10/30/19 08:30 10/30/19 12:16 Levemir Vial SQ 20 units DAILY@0700 [facility] Administration Isosorbide Mononitrate 60 mg 10/30/19 10:00 10/30/19 15:12 Imdur - PO 60 mg DAILY [facility] Administration Levothyroxine Sodium 100 mcg 10/30/19 07:00 10/30/19 07:51 Synthroid - PO Not Given DAILY@0700 [facility] Lidocaine 1 patch 10/30/19 10:00 10/30/19 15:11 Lidoderm Patch - TP 1 patch DAILY [facility] Administration Miscellaneous 1 each 10/30/19 22:00 Lidoderm Patch Removal MC DAILY@2200 [facility] Multi-Ingredient Ointment 1 applic 10/30/19 10:00 10/30/19 12:18 Zinc Oxide TP 1 applic DAILY [facility] Administration Multivitamins/Minerals/Vitamin C 1 tab 10/30/19 10:00 10/30/19 15:12 Tab-A-Vit - PO 1 tab DAILY [facility] Administration Nystatin 1 applic 10/30/19 10:00 10/30/19 12:17 Mycostatin Cream - TP 1 applic BID [facility] Administration Oxycodone HCl 5 mg 10/30/19 14:11 10/30/19 15:18 Roxicodone - PO 5 mg Q6H PRN Administration PAIN LEVEL 7 - 10 Pantoprazole Sodium 40 mg 10/30/19 10:00 10/30/19 15:12 Protonix - PO 40 mg DAILY [facility] Administration Polyethylene Glycol 17 gm 10/30/19 07:08 Miralax (For Daily Use) - PO DAILY PRN CONSTIPATION Torsemide 100 mg 10/30/19 10:00 Demadex - PO BID@0600,1800 [facility] ASSESSMENT/PLAN: 89 F PMH GERD, HLD, CVA, hypothyroidism, DM, myelodysplasia, breast cancer s/p mastectomy, afib (on Eliquis), CKD, and diastolic HF who was recently admitted for CHF exacerbation p/w pain not adequately addressed at [facility]. Admitted for UTI. #L arm pain - L shoulder xray: loss of bone density, arthritic changes - start oxycodone -c/w lidocaine patch #UTI -leukocytosis 43.8, UA leukoesterase 3+, 93930 WBCs, Bacteria 132 -ID consult appreciated. started meropenem & vanc - f/u blood cx, urine cx #Diastolic Heart Failure -re-start torsemide 100 BID -c/w coreg, Eliquis, isosobide mononitrate -CXR: congestive changes, L base infiltrate w/ fluid & atelectasis #Hyponatremia -hyponatremia in setting of diastolic HF -c/w monitoring Na+ #Sacral Ulcer & back excoriations - zinc oxide for groin and upper thigh lesion -nystatin powder for groin -bacitracin for knee biopsy site -air flow mattress - ABIOLA wraps for legs - heel protection - non-stick dressing for back excoriations - sacral allevyn dressing #Rash/skin peeling -on last admission, rash improved s/p dc hydralazine & spironolactone. Likely reaction to rx - rash has improved after holding spironolactone, HZN. - hydroxyzine for pruritus for itching - f/u skin biopsy #DM -ISS -BGM -c/w levemir #CKD -trend Cr #DVT Eliquis #FEN No IVF Monitor lytes Soft diet #DISPO Maintain med surg Visit type - Emergency Visit Emergency Visit: Yes ED Registration Date: 10/30/19 Care time: The patient presented to the Emergency Department on the above date and was hospitalized for further evaluation of their emergent condition. - New Patient This patient is new to me today: No - Critical Care Critical Care patient: No - Medication Review Med list reviewed for High Risk Meds patients 65 and older: Yes ATTENDING PHYSICIAN STATEMENT I saw and evaluated the patient. I reviewed the resident's note and discussed the case with the resident. I agree with the resident's findings and plan as documented. SUBJECTIVE: OBJECTIVE: ASSESSMENT AND PLAN:
[2019-10-30] MEDS ORDERED: MEROPENEM 500 MG VIAL (RESTRICTED TO ID) IVPB ONE (19:21)
[2019-10-30] MEDS ORDERED: DEXTROSE 5%-WATER 100 ML IVPB ONE (19:21)
[2019-10-30] MEDS: MEROPENEM 500 MG in DEXTROSE 5%-WATER 100 ML IVPB SCH (19:24)
[2019-10-30] MEDS ORDERED: DOCUSATE SODIUM 100 MG CAPSULE (FP) PO SCH (22:00)
[2019-10-30] MEDS ORDERED: LIDOCAINE PATCH REMOVAL MC SCH ×2 (22:00)
[2019-10-31] MEDS ORDERED: DEXTROSE 5%-WATER 100 ML IVPB ONE ×2 (02:39→14:22)
[2019-10-31] MEDS ORDERED: MEROPENEM 500 MG VIAL (RESTRICTED TO ID) IVPB ONE ×2 (02:39→14:22)
[2019-10-31] MEDS: MEROPENEM 500 MG in DEXTROSE 5%-WATER 100 ML IVPB SCH ×2 (02:43→15:24)
[2019-10-31] MEDS ORDERED: DEXTROSE 50%-WATER - 25 GM/50 ML VIAL IVPUSH ONE (05:54)
[2019-10-31] MEDS ORDERED: VANCOMYCIN 1 GRAM (PRE-DOCKED) 1 GM/250 ML BAG IVPB SCH (06:00)
[2019-10-31] MEDS ORDERED: DEXTROSE 50%-WATER 25 GM/50 ML DISP.SYRIN ONE (06:09)
[2019-10-31] MEDS: INSULIN (LEVEMIR) 100 UNITS/ML UNITS SQ SCH (06:11)
[2019-10-31] MEDS: INSULIN SLIDING SCALE (NOVOLOG) 1 VIAL SQ SCH ×3 (06:12→17:56)
[2019-10-31] MEDS: TORSEMIDE 100 MG TABLET PO SCH (06:20)
[2019-10-31] MEDS: LEVOTHYROXINE NA 100 MCG TABLET (FP) PO SCH (06:20)
[2019-10-31 07:51] LABS: BASO % 0.1 % (0-2.0); EOS % 0.7 % (0-4.5); HEMATOCRIT 27.3 % (32.4-45.2); HEMOGLOBIN 8.3 GM/dL (10.7-15.3); MCH 29.3 pg (25.7-33.7); MCHC 30.5 g/dl (32.0-36.0); MEAN PLT VOLUME 8.4 fl (7.5-11.1); MONO % 3.3 % (3.8-10.2); NEUT % 93.9 % (42.8-82.8); PLATELET COUNT 85 K/MM3 (134-434); RBC 2.84 M/mm3 (3.60-5.2); RDW 21.3 % (11.6-15.6)
[2019-10-31 08:09] LABS: ALBUMIN 2.2 g/dl (3.4-5.0); BILIRUBIN,TOTAL 0.9 mg/dL (0.2-1); CALCIUM 7.9 mg/dL (8.5-10.1); POTASSIUM 4.4 mmol/L (3.5-5.1); TOT PROT 6.1 g/dl (6.4-8.2)
[2019-10-31 08:12] LABS: CREATININE 3.5 mg/dL (0.55-1.3); PHOSPHOROUS 4.3 mg/dL (2.5-4.9)
[2019-10-31 08:13] LABS: WHITE BLOOD COUNT 46.4 K/mm3 (4.0-10.0)
[2019-10-31 08:29] LABS: BLOOD UREA NITROGEN 121.5 mg/dL (7-18)
--- NOTE | 2019-10-31 10:11 | PN ---
Progress Note (short form) - Note Progress Note: Subjective: she has pain all over. No N/V. no events over night Objective: Vital Signs: Last Vital Signs Temp Pulse Resp BP Pulse Ox 97.2 F L 96 H 20 110/58 L 98 10/31/19 05:24 10/31/19 05:24 10/31/19 05:24 10/31/19 05:24 10/31/19 05:24 Laboratory Results - last 24 hr 10/30/19 10/30/19 10/30/19 02:14 11:13 12:02 WBC RBC Hgb Hct MCV MCH MCHC RDW Plt Count MPV Absolute Neuts (auto) Neutrophils % Lymphocytes % Monocytes % Eosinophils % Basophils % Nucleated RBC % Sodium Potassium Chloride Carbon Dioxide Anion Gap BUN Creatinine Est GFR (CKD-EPI)AfAm Est GFR (CKD-EPI)NonAf POC Glucometer 319 Random Glucose Hemoglobin A1c % Calcium Phosphorus Magnesium Total Bilirubin AST ALT Alkaline Phosphatase Troponin I 0.03 Total Protein Albumin Random Vancomycin COVID-19 ([facility]) Not detected 10/30/19 10/30/19 10/31/19 18:18 22:29 01:36 WBC RBC Hgb Hct MCV MCH MCHC RDW Plt Count MPV Absolute Neuts (auto) Neutrophils % Lymphocytes % Monocytes % Eosinophils % Basophils % Nucleated RBC % Sodium Potassium Chloride Carbon Dioxide Anion Gap BUN Creatinine Est GFR (CKD-EPI)AfAm Est GFR (CKD-EPI)NonAf POC Glucometer 118 59 76 Random Glucose Hemoglobin A1c % Calcium Phosphorus Magnesium Total Bilirubin AST ALT Alkaline Phosphatase Troponin I Total Protein Albumin Random Vancomycin COVID-19 ([facility]) 10/31/19 10/31/19 10/31/19 05:05 06:14 06:14 WBC 46.4 H* RBC 2.84 L Hgb 8.3 L Hct 27.3 L MCV 96.0 MCH 29.3 MCHC 30.5 L RDW 21.3 H Plt Count 85 L D MPV 8.4 D Absolute Neuts (auto) 43.5 H Neutrophils % 93.9 H Lymphocytes % 2.0 L Monocytes % 3.3 L Eosinophils % 0.7 D Basophils % 0.1 Nucleated RBC % 0 Sodium Potassium Chloride Carbon Dioxide Anion Gap BUN Creatinine Est GFR (CKD-EPI)AfAm Est GFR (CKD-EPI)NonAf POC Glucometer 49 Random Glucose Hemoglobin A1c % 7.1 H Calcium Phosphorus Magnesium Total Bilirubin AST ALT Alkaline Phosphatase Troponin I Total Protein Albumin Random Vancomycin COVID-19 ([facility]) 10/31/19 10/31/19 10/31/19 06:14 08:04 09:05 WBC RBC Hgb Hct MCV MCH MCHC RDW Plt Count MPV Absolute Neuts (auto) Neutrophils % Lymphocytes % Monocytes % Eosinophils % Basophils % Nucleated RBC % Sodium 134 L Potassium 4.4 Chloride 99 Carbon Dioxide 21 Anion Gap 13 BUN 121.5 H* Creatinine 3.5 H Est GFR (CKD-EPI)AfAm 12.72 Est GFR (CKD-EPI)NonAf 10.97 POC Glucometer 130 Random Glucose 48 L* Hemoglobin A1c % Calcium 7.9 L Phosphorus 4.3 Magnesium 2.0 Total Bilirubin 0.9 AST 32 ALT 12 L Alkaline Phosphatase 450 H Troponin I Total Protein 6.1 L Albumin 2.2 L Random Vancomycin < 0.8 L COVID-19 ([facility]) Physical Exam: NAD, awake, alert.dry eye lids with crusted secretions and erythematous eye lids . dry MM CV: RRR Lungs: CTAB Ext: edema on legs and ankles is slightly better than yesterday . no ulcers on heels ,peeling skin on feet. dark discoloration on L heel but no ulcers . R upper monique superficial wounds at site of skin Bx with scabs. No surrounding erythema. Skin: fading maculopapular rash all over peeling skin on hands and abd and feet decub ulcers satge 2 on non blanching base on sacral and upper gluteal areas with some bruising . horizontal excoriated skin on posterior upper thighs erythemat in groin is better excoriations on back especially L side ( better ) ASSESSMENT AND PLAN: 89 y/o lady with h/o diastolic CHF, a-fib (on Eliquis), CKD, breast cancer s/p mastectomy, myelodysplasia, IDDM type 2, hypothyroidism, HLD, CVA, and GERD , recent admission for CHF and other condition who was dc on 10/27 to rehab and came back on 10/28 as she did not like rehab. she was found to have worsening leukocytosis and UTI 1- Sepsis 2- G+ bacteremia 3- chronic diastolic heart failure 4- CKD 5- h/o MDS , chronic leukocytosis 6- chronic anemia 7- skin excoriationand decub ulcers on sacral/gluteal area 8- hyponatremia 9- h/o A fib 10 - maculopapular rash 11- h/o DM 12- h/o Liver mass ,retroperitoneal LAP, b/l adrenal nodules on imaging form last admission plan - G+ cocci in clusters in blood. ? staph . urine cx with low colonies , mixed bacteria . - vanco level pending this am , to dose vanco . Cr Cl 16%/ - cont meropenem - repeat blood cx in am - follow final blood cx - I feel patient might be going to volume depletion . will ask dr. Sequeira to evaluate if demadex needs to be decreaed to 80 or 60 mg BID - cont coreg 25 BID. - cont eliquis - cont imdur - rash has improved after holding spironolactone, HZN. - cont nystatin and zinc oxyde to groins. - air mattress pending - non stick dressings on back excoriated skin. - allevyn dressing on sacrum - ABIOLA wraps on legs - her breast cancer treatment to be started by her oncologist after dc - follow up skin Bx on Friday - H1 blockers for itching - cont levemir and SSI - cont lidocaine patch and add oxycodone - add artifitial tears will d/w ID and renal will get palliative care on board again. will speak to daughter Visit type - Emergency Visit Emergency Visit: Yes ED Registration Date: 10/30/19 Care time: The patient presented to the Emergency Department on the above date and was hospitalized for further evaluation of their emergent condition. - New Patient This patient is new to me today: No - Critical Care Critical Care patient: No - Medication Review Med list reviewed for High Risk Meds patients 65 and older: Yes
--- NOTE | 2019-10-31 10:18 | PN ---
Progress Note (short form) - Note Progress Note: weak rash unchanged Vital Signs Period Temp Pulse Resp BP Sys/Hernandez Pulse Ox Last 24 Hr 97.1 F-97.8 F 86-109 20-24 94-130/46-70 98-100 cor-rrr lungs decreased bs at bases abd soft, nt ext rash unchanged, denuded skin on back CBC, BMP 10/31/19 06:14 10/31/19 06:14 Microbiology 10/30/19 04:10 Urine - Urine - Catheterized Urine Culture - Preliminary Lactose Fermenting Neg Bacilli Lactose Fermenting Neg Bacilli#2 Group D Strep Or Entero Coccus 10/30/19 05:04 Blood - Peripheral Venous Blood Culture - Preliminary Pending Organism 10/30/19 05:04 Blood - Peripheral Venous Blood Culture - Preliminary Pending Organism a/p gram positive bacteremia-07/09 gpc clusters-continue vanco by level, dose today and level in am UTI-on meropenem crow/ckd rash-f/u sking biopsy metastatic breast cancer overall prognosis is poor repeat blood cultures echo Problem List - Problems (1) Leukocytosis Code(s): D72.829 - ELEVATED WHITE BLOOD CELL COUNT, UNSPECIFIED (2) UTI (urinary tract infection) Code(s): N39.0 - URINARY TRACT INFECTION, SITE NOT SPECIFIED (3) Skin rash Code(s): R21 - RASH AND OTHER NONSPECIFIC SKIN ERUPTION (4) Breast cancer Code(s): C50.919 - MALIGNANT NEOPLASM OF UNSP SITE OF UNSPECIFIED FEMALE BREAST (5) MDS (myelodysplastic syndrome) Code(s): D46.9 - MYELODYSPLASTIC SYNDROME, UNSPECIFIED
[2019-10-31 10:40] LABS: ANISOCYTOSIS 1+; MACROCYTOSIS 1+; PLATELET ESTIMATE DECREASED
[2019-10-31] MEDS ORDERED: VANCOMYCIN HCL 1,250 MG in DEXTROSE 5%-WATER - 250 ML IVPB ONE (11:00)
[2019-10-31] MEDS: BACITRACIN 15 GM TUBE TOPICAL OINTMENT TP SCH (11:17)
[2019-10-31] MEDS: ISOSORBIDE MONONITRATE 60 MG TAB.SR.24H (FP) PO SCH (11:18)
[2019-10-31] MEDS: APIXABAN 2.5 MG TABLET PO SCH ×2 (11:18→21:05)
[2019-10-31] MEDS: LIDOCAINE 5% TOPICAL PATCH TP SCH (11:18)
[2019-10-31] MEDS: CARVEDILOL 25 MG TABLET (FP) PO SCH ×2 (11:18→21:05)
[2019-10-31] MEDS: PANTOPRAZOLE 40 MG TABLET PO SCH (11:19)
[2019-10-31] MEDS: MULTIVITAMINS (DAILY MVI) TABLET (FP) PO SCH (11:19)
[2019-10-31] MEDS: NYSTATIN 100,000 UNIT/GM TOPICAL CREAM 15 GM TUBE TP SCH ×2 (11:19→21:06)
[2019-10-31] MEDS: ZINC OXIDE 20% TOPICAL OINTMENT 30 GM TUBE TP SCH (11:20)
--- NOTE | 2019-10-31 11:47 | PN ---
Progress Note (short form) - Note Progress Note: cc: back pain s: complains of back pain. no chest pain, palps, dizziness, dyspnea Current Medications Generic Name Dose Route Start Last Admin Trade Name Freq PRN Reason Stop Dose Admin Acetaminophen 650 mg 10/30/19 07:08 10/30/19 15:17 Tylenol - PO 650 mg Q6H PRN Administration PAIN LEVEL 4-6 Apixaban 2.5 mg 10/30/19 10:00 10/31/19 11:18 Eliquis - PO 2.5 mg BID [facility] Administration Artificial Tears 1 drop 10/31/19 10:00 Artificial Tears OU QID PRN DRY EYES Bacitracin 1 applic 10/30/19 10:00 10/31/19 11:17 Bacitracin - TP 1 applic DAILY [facility] Administration Carvedilol 25 mg 10/30/19 10:00 10/31/19 11:18 Coreg - PO Not Given BID [facility] Docusate Sodium 300 mg 10/30/19 22:00 10/30/19 22:11 Colace - PO Not Given HS [facility] Hydroxyzine Pamoate 25 mg 10/30/19 07:08 Vistaril - PO Q8H PRN FOR ITCHING Meropenem 500 mg/ Dextrose 100 mls @ 200 mls/hr 10/30/19 15:30 10/31/19 02:43 IVPB 200 mls/hr Q12H [facility] Administration Vancomycin HCl 1,250 mg/ 250 mls @ 250 mls/2 hr 10/31/19 11:00 Dextrose IVPB 10/31/19 12:59 ONCE ONE Protocol Insulin Aspart 1 vial 10/30/19 11:00 10/31/19 06:12 Novolog Vial Sliding Scale - SQ Not Given ACHS [facility] Protocol Insulin Detemir 20 units 10/30/19 08:30 10/31/19 06:11 Levemir Vial SQ Not Given DAILY@0700 [facility] Isosorbide Mononitrate 60 mg 10/30/19 10:00 10/31/19 11:18 Imdur - PO Not Given DAILY [facility] Levothyroxine Sodium 100 mcg 10/30/19 07:00 10/31/19 06:20 Synthroid - PO 100 mcg DAILY@0700 [facility] Administration Lidocaine 1 patch 10/30/19 10:00 10/31/19 11:18 Lidoderm Patch - TP 1 patch DAILY [facility] Administration Miscellaneous 1 each 10/30/19 22:00 10/30/19 22:28 Lidoderm Patch Removal MC 1 each DAILY@2200 [facility] Administration Multi-Ingredient Ointment 1 applic 10/30/19 10:00 10/31/19 11:20 Zinc Oxide TP 1 applic DAILY [facility] Administration Multivitamins/Minerals/Vitamin C 1 tab 10/30/19 10:00 10/31/19 11:19 Tab-A-Vit - PO 1 tab DAILY [facility] Administration Nystatin 1 applic 10/30/19 10:00 10/31/19 11:19 Mycostatin Cream - TP 1 applic BID [facility] Administration Oxycodone HCl 5 mg 10/30/19 14:11 10/30/19 15:18 Roxicodone - PO 5 mg Q6H PRN Administration PAIN LEVEL 7 - 10 Pantoprazole Sodium 40 mg 10/30/19 10:00 10/31/19 11:19 Protonix - PO 40 mg DAILY [facility] Administration Polyethylene Glycol 17 gm 10/30/19 07:08 Miralax (For Daily Use) - PO DAILY PRN CONSTIPATION Torsemide 100 mg 10/30/19 10:00 10/31/19 06:20 Demadex - PO 100 mg BID@0600,1800 [facility] Administration Vital Signs Period Temp Pulse Resp BP Sys/Hernandez Pulse Ox Last 24 Hr 97.1 F-97.8 F 86-109 20-24 94-130/46-70 98-100 nad no jvd dec bs bases nl eff aao3 1+ le edema bl, no c/c irreg s1s2 no mrg abd nt nd pos bs no jaundice diaphoresis pos dp pt no carotid bruits tele: afib, rate ok echo 03/2019 nl LV function, mild MR, mild TR, PASP at least 49 mmHg IMP/REC: chronic diastolic heart failure - recent echo nl LV function - no signs acs - holding aldactone, hydralazine due to rash during prior admission - recent admission for CHF exac, was on IV lasix. it was rec'd that pt have HD but she declined so diuresed with lasix 80 mg IV TID - ongoing d/w dr georges re dialysis - seen by palliative care prior admit, wished to continue fighting, refused hospice care - on nitrates for cardiorenal syndrome - volume status stable here - now with sepsis, hypotension - bp meds held today - hold torsemide, d/w renal HTN: - bp stable - cont current meds crow on CKD: - Baseline creat prior is 2-2.5, elevated now, likely cardiorenal - renal following PAF: -cont coreg for rate control -cont eliquis low dose (age, creatinine) - can dc tele anemia: -CKD contributing likely -would continue adjusted dose eliquis for now as doing, close monitoring of counts--if drops or + melena, will have to hold. she is likely too hi risk for GI scopes. liver mass: -heme/onc following
[2019-10-31] MEDS: oxyCODONE HCL 5 MG TABLET PO PRN (13:28)
[2019-10-31] MEDS: ACETAMINOPHEN 325 MG TABLET (FP) PO PRN (13:28)
[2019-10-31] MEDS: ARTIFICIAL TEARS (POLYVINYL ALCOHOL) OPTH DROPS OU PRN (13:33)
--- NOTE | 2019-10-31 14:22 | PN ---
Progress Note, Physician History of Present Illness: Pt seen and examined at bedside. She is more lethargic today. She is also hypotensive. - Current Medication List Current Medications: Active Medications Acetaminophen (Tylenol -) 650 mg PO Q6H PRN PRN Reason: PAIN LEVEL 4-6 Last Admin: 10/31/19 13:28 Dose: 650 mg Documented by: Apixaban (Eliquis -) 2.5 mg PO BID [facility] Last Admin: 10/31/19 11:18 Dose: 2.5 mg Documented by: Artificial Tears (Artificial Tears) 1 drop OU QID PRN PRN Reason: DRY EYES Last Admin: 10/31/19 13:33 Dose: 1 drop Documented by: Bacitracin (Bacitracin -) 1 applic TP DAILY [facility] Last Admin: 10/31/19 11:17 Dose: 1 applic Documented by: Carvedilol (Coreg -) 25 mg PO BID [facility] Last Admin: 10/31/19 11:18 Dose: Not Given Documented by: Docusate Sodium (Colace -) 300 mg PO HS [facility] Last Admin: 10/30/19 22:11 Dose: Not Given Documented by: Hydroxyzine Pamoate (Vistaril -) 25 mg PO Q8H PRN PRN Reason: FOR ITCHING Meropenem 500 mg/ Dextrose 100 mls @ 200 mls/hr IVPB Q12H [facility] Last Admin: 10/31/19 02:43 Dose: 200 mls/hr Documented by: Insulin Aspart (Novolog Vial Sliding Scale -) 1 vial SQ [facility]; Protocol Last Admin: 10/31/19 12:01 Dose: Not Given Documented by: Insulin Detemir (Levemir Vial) 20 units SQ DAILY@0700 [facility] Last Admin: 10/31/19 06:11 Dose: Not Given Documented by: Isosorbide Mononitrate (Imdur -) 60 mg PO DAILY [facility] Last Admin: 10/31/19 11:18 Dose: Not Given Documented by: Levothyroxine Sodium (Synthroid -) 100 mcg PO DAILY@0700 [facility] Last Admin: 10/31/19 06:20 Dose: 100 mcg Documented by: Lidocaine (Lidoderm Patch -) 1 patch TP DAILY [facility] Last Admin: 10/31/19 11:18 Dose: 1 patch Documented by: Miscellaneous (Lidoderm Patch Removal) 1 each MC DAILY@2200 [facility] Last Admin: 10/30/19 22:28 Dose: 1 each Documented by: Multi-Ingredient Ointment (Zinc Oxide) 1 applic TP DAILY [facility] Last Admin: 10/31/19 11:20 Dose: 1 applic Documented by: Multivitamins/Minerals/Vitamin C (Tab-A-Vit -) 1 tab PO DAILY [facility] Last Admin: 10/31/19 11:19 Dose: 1 tab Documented by: Nystatin (Mycostatin Cream -) 1 applic TP BID [facility] Last Admin: 10/31/19 11:19 Dose: 1 applic Documented by: Oxycodone HCl (Roxicodone -) 5 mg PO Q6H PRN PRN Reason: PAIN LEVEL 7 - 10 Last Admin: 10/31/19 13:28 Dose: 5 mg Documented by: Pantoprazole Sodium (Protonix -) 40 mg PO DAILY [facility] Last Admin: 10/31/19 11:19 Dose: 40 mg Documented by: Polyethylene Glycol (Miralax (For Daily Use) -) 17 gm PO DAILY PRN PRN Reason: CONSTIPATION - Objective Vital Signs: Vital Signs Temperature 97.8 F 10/31/19 10:00 Pulse Rate 94 H 10/31/19 10:00 Respiratory Rate 20 10/31/19 10:00 Blood Pressure 94/50 L 10/31/19 10:00 O2 Sat by Pulse Oximetry (%) 100 10/31/19 10:00 Constitutional: Yes: Calm Eyes: Yes: Conjunctiva Clear HENT: Yes: Atraumatic Neck: Yes: Supple Cardiovascular: Yes: S1, S2 Respiratory: Yes: CTA Bilaterally Gastrointestinal: Yes: Soft Genitourinary: Yes: WNL Musculoskeletal: Yes: WNL Edema: Yes Edema: LLE: 2+, RLE: 2+ Neurological: Yes: Lethargy Labs: CBC, BMP 10/31/19 06:14 10/31/19 06:14 INR, PTT INR 2.88 (0.83-1.09) H 10/30/19 02:14 Problem List - Problems (1) Acute on chronic diastolic (congestive) heart failure Code(s): I50.33 - ACUTE ON CHRONIC DIASTOLIC (CONGESTIVE) HEART FAILURE (2) CHF (congestive heart failure) Code(s): I50.9 - HEART FAILURE, UNSPECIFIED (3) CKD (chronic kidney disease) stage 5, GFR less than 15 ml/min Code(s): N18.5 - CHRONIC KIDNEY DISEASE, STAGE 5 Assessment/Plan Current Medications Generic Name Dose Route Start Last Admin Trade Name Freq PRN Reason Stop Dose Admin Acetaminophen 650 mg 10/30/19 07:08 10/31/19 13:28 Tylenol - PO 650 mg Q6H PRN Administration PAIN LEVEL 4-6 Apixaban 2.5 mg 10/30/19 10:00 10/31/19 11:18 Eliquis - PO 2.5 mg BID AMRIT Administration Artificial Tears 1 drop 10/31/19 10:00 10/31/19 13:33 Artificial Tears OU 1 drop QID PRN Administration DRY EYES Bacitracin 1 applic 10/30/19 10:00 10/31/19 11:17 Bacitracin - TP 1 applic DAILY [facility]IT Administration Carvedilol 25 mg 10/30/19 10:00 10/31/19 11:18 Coreg - PO Not Given BID [facility] Docusate Sodium 300 mg 10/30/19 22:00 10/30/19 22:11 Colace - PO Not Given HS [facility] Hydroxyzine Pamoate 25 mg 10/30/19 07:08 Vistaril - PO Q8H PRN FOR ITCHING Meropenem 500 mg/ Dextrose 100 mls @ 200 mls/hr 10/30/19 15:30 10/31/19 02:43 IVPB 200 mls/hr Q12H AMRTI Administration Insulin Aspart 1 vial 10/30/19 11:00 10/31/19 12:01 Novolog Vial Sliding Scale - SQ Not Given ACHS [facility] Protocol Insulin Detemir 20 units 10/30/19 08:30 10/31/19 06:11 Levemir Vial SQ Not Given DAILY@0700 [facility] Isosorbide Mononitrate 60 mg 10/30/19 10:00 10/31/19 11:18 Imdur - PO Not Given DAILY [facility] Levothyroxine Sodium 100 mcg 10/30/19 07:00 10/31/19 06:20 Synthroid - PO 100 mcg DAILY@0700 [facility] Administration Lidocaine 1 patch 10/30/19 10:00 10/31/19 11:18 Lidoderm Patch - TP 1 patch DAILY [facility]IT Administration Miscellaneous 1 each 10/30/19 22:00 07/25/20 22:28 Lidoderm Patch Removal MC 1 each DAILY@2200 [facility] Administration Multi-Ingredient Ointment 1 applic 10/30/19 10:00 10/31/19 11:20 Zinc Oxide TP 1 applic DAILY [facility] Administration Multivitamins/Minerals/Vitamin C 1 tab 10/30/19 10:00 10/31/19 11:19 Tab-A-Vit - PO 1 tab DAILY [facility]IT Administration Nystatin 1 applic 10/30/19 10:00 10/31/19 11:19 Mycostatin Cream - TP 1 applic BID [facility]IT Administration Oxycodone HCl 5 mg 10/30/19 14:11 10/31/19 13:28 Roxicodone - PO 5 mg Q6H PRN Administration PAIN LEVEL 7 - 10 Pantoprazole Sodium 40 mg 10/30/19 10:00 10/31/19 11:19 Protonix - PO 40 mg DAILY [facility]IT Administration Polyethylene Glycol 17 gm 10/30/19 07:08 Miralax (For Daily Use) - PO DAILY PRN CONSTIPATION Impression 1. proteinuria 2. hypothyroid 3. HTN 4. DM 5. fluid overload 6. breast cancer 7. anemia 8. CKD 9. CHF 10. hyponatremia 11. hypokalemia 12. MAURICE 13. bacteremia Plan - hold torsemide - monitor bp - cont abx - blood cultures positive - follow skin biopsy result - heme follow up - discussed with medical team
--- NOTE | 2019-10-31 17:31 | EKG ---
Test Reason : Blood Pressure : / mmHG Vent. Rate : 111 BPM Atrial Rate : 068 BPM P-R Int : 000 ms QRS Dur : 104 ms QT Int : 362 ms P-R-T Axes : 000 -50 004 degrees QTc Int : 492 ms ATRIAL FIBRILLATION WITH RAPID VENTRICULAR RESPONSE LEFT ANTERIOR FASCICULAR BLOCK NONSPECIFIC ST ABNORMALITY ABNORMAL ECG WHEN COMPARED WITH ECG OF 17-OCT-2019 01:52, NO SIGNIFICANT CHANGE WAS FOUND Confirmed by MD Karla, Martin ([id number]) on 10/31/2019 5:31:35 PM Referred By: Confirmed By:Martin Acosta MD
[2019-10-31] MEDS ORDERED: POLYETHYLENE GLYCOL 3350 119 GM BTL PO PRN (19:53)
[2019-10-31] MEDS ORDERED: hydrOXYzine PAMOATE 25 MG CAPSULE (FP) PO PRN (19:53)
[2019-10-31] MEDS: DOCUSATE SODIUM 100 MG CAPSULE (FP) PO SCH (21:05)
[2019-10-31] MEDS: LIDOCAINE PATCH REMOVAL MC SCH (21:06)
[2019-11-01] MEDS: oxyCODONE HCL 5 MG TABLET PO PRN ×2 (01:31→10:40)
[2019-11-01] MEDS ORDERED: MEROPENEM 500 MG VIAL (RESTRICTED TO ID) IVPB ONE (02:04)
[2019-11-01] MEDS ORDERED: DEXTROSE 5%-WATER 100 ML IVPB ONE (02:04)
[2019-11-01] MEDS: MEROPENEM 500 MG in DEXTROSE 5%-WATER 100 ML IVPB SCH (02:37)
[2019-11-01] MEDS: LEVOTHYROXINE NA 100 MCG TABLET (FP) PO SCH (06:05)
[2019-11-01] MEDS: INSULIN SLIDING SCALE (NOVOLOG) 1 VIAL SQ SCH ×3 (06:05→17:42)
[2019-11-01 08:21] LABS: BASO % 0.2 % (0-2.0); EOS % 0.6 % (0-4.5); HEMATOCRIT 26.4 % (32.4-45.2); LYMPH % 1.9 % (8-40); MCH 29.4 pg (25.7-33.7); MCHC 30.3 g/dl (32.0-36.0); MEAN CELL VOLUME 97.1 fl (80-96); MONO % 2.6 % (3.8-10.2); NEUT % 94.7 % (42.8-82.8); PLATELET COUNT 82 K/MM3 (134-434); RBC 2.72 M/mm3 (3.60-5.2); RDW 21.8 % (11.6-15.6)
[2019-11-01 08:42] LABS: CALCIUM 7.8 mg/dL (8.5-10.1); CREATININE 4.1 mg/dL (0.55-1.3); MAGNESIUM 2.1 mg/dL (1.8-2.4); PHOSPHOROUS 4.8 mg/dL (2.5-4.9); POTASSIUM 4.9 mmol/L (3.5-5.1)
[2019-11-01 08:46] LABS: BLOOD UREA NITROGEN 129.3 mg/dL (7-18)
[2019-11-01 08:53] LABS: WHITE BLOOD COUNT 37.5 K/mm3 (4.0-10.0)
[2019-11-01] MEDS: CARVEDILOL 25 MG TABLET (FP) PO SCH (09:54)
[2019-11-01] MEDS ORDERED: ISOSORBIDE MONONITRATE 60 MG TAB.SR.24H (FP) PO SCH (10:00)
[2019-11-01] MEDS ORDERED: PT OWN MED DRAWER 7, Y5N ONE ×2 (10:34→14:39)
[2019-11-01] MEDS: LIDOCAINE 5% TOPICAL PATCH TP SCH (10:39)
[2019-11-01] MEDS: APIXABAN 2.5 MG TABLET PO SCH ×2 (10:40→22:57)
[2019-11-01] MEDS: PANTOPRAZOLE 40 MG TABLET PO SCH (10:40)
[2019-11-01] MEDS: ACETAMINOPHEN 325 MG TABLET (FP) PO PRN (10:40)
[2019-11-01] MEDS: MULTIVITAMINS (DAILY MVI) TABLET (FP) PO SCH (10:40)
[2019-11-01] MEDS: ZINC OXIDE 20% TOPICAL OINTMENT 30 GM TUBE TP SCH (10:41)
[2019-11-01] MEDS: NYSTATIN 100,000 UNIT/GM TOPICAL CREAM 15 GM TUBE TP SCH ×2 (10:41→23:36)
[2019-11-01] MEDS: ARTIFICIAL TEARS (POLYVINYL ALCOHOL) OPTH DROPS OU PRN (10:42)
[2019-11-01] MEDS: BACITRACIN 15 GM TUBE TOPICAL OINTMENT TP SCH (10:42)
--- NOTE | 2019-11-01 10:52 | ECHO ---
Name: MACHO HASTINGS Exam:Adult Echocardiogram Study Date: 11/01/2019 08:41 AM Age: 89 yrs Reason For Study: bacteremia Height: 68 in Weight: 203 lb BSA: 2.1 m2 MMode/2D Measurements & Calculations IVSd: 1.5 cm Ao root diam: 3.0 cm LVIDd: 3.2 cm LA dimension: 3.7 cm LVIDs: 2.2 cm LVPWd: 1.5 cm LVPWs: 1.9 cm EDV(Teich): 40.9 ml ESV(Teich): 16.1 ml LVOT diam: 1.9 cm TAPSE: 1.7 cm RV S Odell: 15.9 cm/sec Doppler Measurements & Calculations Ao V2 max: 128.6 cm/sec MVA(VTI): 1.3 cm2 Ao max P.6 mmHg MV V2 max: 133.0 cm/sec Ao V2 mean: 87.2 cm/sec MV max P.1 mmHg Ao mean P.6 mmHg MV V2 mean: 79.0 cm/sec Ao V2 VTI: 25.8 cm MV mean P.0 mmHg MV V2 VTI: 23.4 cm CASSIA(I,D): 1.2 cm2 CASSIA(V,D): 1.5 cm2 LV V1 max P.8 mmHg SV(LVOT): 30.0 ml LV V1 mean P.85 mmHg LV V1 max: 67.1 cm/sec LV V1 mean: 38.1 cm/sec LV V1 VTI: 10.6 cm TR max odell: 309.9 cm/sec Med Peak E' Odell: 6.4 cm/sec TR max P.8 mmHg Lat Peak E' Odell: 12.4 cm/sec Tech Comments patient complaining of pain and combative, would not move arm from over chest. Procedure Study Quality: Fair. Left Ventricle The left ventricle is normal in size. There is mild concentric left ventricular hypertrophy. The left ventricular ejection fraction is normal. Ejection Fraction = 55-60%. Atria The left atrium is severely dilated. The right atrium is severely dilated. Mitral Valve There is severe mitral annular calcification. Tricuspid Valve The tricuspid valve is not well visualized, but is grossly normal. There is moderate tricuspid regurg itation. Right ventricular systolic pressure is elevated at 50-60mmHg. There is moderate pulmonary hypertensio n. Aortic Valve There is mild aortic sclerosis.;. No hemodynamically significant valvular aortic stenosis. No aortic regurgitation is present. Pulmonic Valve The pulmonic valve is not well visualized. Great Vessels The aortic root is normal size. Pericardium/Pleura Small pericardial effusion. Interpretation Summary LV: Normal size ,mild LVH, normal systolic function,EF 60-65% RV: normal Atia; severely dilated MV: calcified annulus ,and posterior leaflet Sclerotic AV Moderate TR with moderate pulmonary hypertension pericardial fat pad ,possible small effusion. Crys Concepcion 11/01/2019 10:51 AM
[2019-11-01] MEDS ORDERED: VANCOMYCIN HCL 1,250 MG in DEXTROSE 5%-WATER - 250 ML IVPB ONE ×2 (11:11→11:13)
--- NOTE | 2019-11-01 11:13 | PN ---
Progress Note (short form) - Note Progress Note: weak rash unchanged no BM Vital Signs Period Temp Pulse Resp BP Sys/Hernandez Pulse Ox Last 24 Hr 97.3 F-98.3 F 102-112 20-112 92-130/43-74 97-100 cor-rrr lungs decreased bs at bases abd soft skin rash unchanged her CBC, BMP 11/01/19 07:15 11/01/19 07:15 Microbiology 10/30/19 04:10 Urine - Urine - Catheterized Urine Culture - Preliminary Klebsiella Pneumoniae - Esbl Citrobacter Sedlakii Group D Strep Or Entero Coccus 10/30/19 05:04 Blood - Peripheral Venous Blood Culture - Preliminary Staphylococcus Latex Coag Pos 10/30/19 05:04 Blood - Peripheral Venous Blood Culture - Preliminary Staphylococcus Latex Coag Pos vanco trough 10.6 a/p staph bacteremia- awaiting further ID-/ gpc clusters-continue vanco by level, dose today and level in am urine culture polymicrobial with low colony count can d/c meropenem worsening renal function rash-f/u skin biopsy metastatic breast cancer overall prognosis is poor repeat blood cultures-sent echo noted Problem List - Problems (1) Leukocytosis Code(s): D72.829 - ELEVATED WHITE BLOOD CELL COUNT, UNSPECIFIED (2) UTI (urinary tract infection) Code(s): N39.0 - URINARY TRACT INFECTION, SITE NOT SPECIFIED (3) Skin rash Code(s): R21 - RASH AND OTHER NONSPECIFIC SKIN ERUPTION (4) Breast cancer Code(s): C50.919 - MALIGNANT NEOPLASM OF UNSP SITE OF UNSPECIFIED FEMALE BREAST (5) MDS (myelodysplastic syndrome) Code(s): D46.9 - MYELODYSPLASTIC SYNDROME, UNSPECIFIED
--- NOTE | 2019-11-01 11:21 | PN ---
Progress Note (short form) - Note Progress Note: cc: back pain s: complains of back pain. no chest pain, palps, dizziness, dyspnea, more drowsy today no cigs Current Medications Generic Name Dose Route Start Last Admin Trade Name Freq PRN Reason Stop Dose Admin Acetaminophen 650 mg 10/31/19 19:53 11/01/19 10:40 Tylenol - PO 650 mg Q6H PRN Administration PAIN LEVEL 6-10 Apixaban 2.5 mg 10/31/19 22:00 11/01/19 10:40 Eliquis - PO 2.5 mg BID AMRIT Administration Artificial Tears 1 drop 10/31/19 10:00 11/01/19 10:42 Artificial Tears OU 1 drop QID PRN Administration DRY EYES Bacitracin 1 applic 11/01/19 10:00 11/01/19 10:42 Bacitracin - TP 1 applic DAILY AMRIT Administration Carvedilol 25 mg 10/31/19 22:00 11/01/19 09:54 Coreg - PO Not Given BID AMRIT Docusate Sodium 300 mg 10/31/19 22:00 10/31/19 21:05 Colace - PO 300 mg HS AMRIT Administration Hydroxyzine Pamoate 25 mg 10/31/19 19:53 Vistaril - PO Q8H PRN FOR ITCHING Meropenem 500 mg/ Dextrose 100 mls @ 200 mls/hr 10/30/19 15:30 11/01/19 02:37 IVPB 200 mls/hr Q12H [facility]IT Administration Vancomycin HCl 1,000 mg/ 250 mls @ 166.667 mls/hr 11/01/19 11:12 Dextrose IVPB 11/01/19 12:41 ONCE ONE Protocol Vancomycin HCl 1,250 mg/ 250 mls @ 250 mls/2 hr 11/01/19 11:13 Dextrose IVPB 11/01/19 13:10 ONCE ONE Protocol Insulin Aspart 1 vial 10/31/19 16:30 11/01/19 06:05 Novolog Vial Sliding Scale - SQ 6 unit TIDAC AMRIT Administration Protocol Isosorbide Mononitrate 60 mg 11/01/19 10:00 11/01/19 09:54 Imdur - PO Not Given DAILY AM[facility]IT Levothyroxine Sodium 100 mcg 11/01/19 07:00 11/01/19 06:05 Synthroid - PO 100 mcg DAILY@0700 [facility] Administration Lidocaine 1 patch 11/01/19 10:00 11/01/19 10:39 Lidoderm Patch - TP 1 patch DAILY [facility] Administration Miscellaneous 1 each 10/31/19 22:00 10/31/19 21:06 Lidoderm Patch Removal MC 1 each DAILY@2200 [facility] Administration Multi-Ingredient Ointment 1 applic 11/01/19 10:00 11/01/19 10:41 Zinc Oxide TP 1 applic DAILY [facility] Administration Multivitamins/Minerals/Vitamin C 1 tab 11/01/19 10:00 11/01/19 10:40 Tab-A-Vit - PO 1 tab DAILY [facility] Administration Nystatin 1 applic 10/31/19 22:00 11/01/19 10:41 Mycostatin Cream - TP 1 applic BID [facility]IT Administration Oxycodone HCl 5 mg 10/30/19 14:11 11/01/19 10:40 Roxicodone - PO 5 mg Q6H PRN Administration PAIN LEVEL 7 - 10 Pantoprazole Sodium 40 mg 11/01/19 10:00 11/01/19 10:40 Protonix - PO 40 mg DAILY [facility]IT Administration Polyethylene Glycol 17 gm 10/31/19 19:53 11/01/19 10:41 Miralax (For Daily Use) - PO 17 gm DAILY PRN Administration CONSTIPATION Vital Signs Temp 97.3 F L 11/01/19 09:00 Pulse 102 H 11/01/19 09:00 Resp 20 11/01/19 09:00 BP 95/45 L 11/01/19 09:00 Pulse Ox 97 11/01/19 09:00 Intake & Output 10/31/19 10/31/19 11/01/19 11:59 23:59 11:59 Intake Total 250 350 180 Balance 250 350 180 Weight 203 lb 12.8 oz Intake: IVPB 100 Oral 250 350 80 Other: Voiding Method Indwelling Catheter Indwelling Catheter # Unmeasured Voids Santillan 100 Bowel Movement No Weight Measurement Method Patient Lift Scale nad no jvd dec bs bases poor eff aao3 1+ le edema bl, no c/c irreg s1s2 no mrg abd nt nd pos bs no jaundice diaphoresis pos dp pt no carotid bruits CBC, BMP 11/01/19 07:15 11/01/19 07:15 echo 03/2019 nl LV function, mild MR, mild TR, PASP at least 49 mmHg IMP/REC: chronic diastolic heart failure - recent echo nl LV function - no signs acs - holding aldactone, hydralazine due to rash during prior admission - recent admission for CHF exac, was on IV lasix. it was rec'd that pt have HD but she declined so diuresed with lasix 80 mg IV TID - ongoing d/w dr destini [facility] dialysis - seen by palliative care prior admit, wished to continue fighting, refused hospice care - on nitrates for cardiorenal syndrome - volume status stable here - now with sepsis, hypotension, holding torsemide HTN: - bp low, likely from sepsis, holding bp meds crow on CKD: - Baseline creat prior is 2-2.5, elevated now, likely cardiorenal, sepsis - renal following PAF: -cont coreg for rate control if bp tolerates -cont eliquis low dose (age, creatinine) anemia: -CKD contributing likely -would continue adjusted dose eliquis for now as doing, close monitoring of counts--if drops or + melena, will have to hold. she is likely too hi risk for GI scopes. liver mass: -heme/onc following
[2019-11-01] MEDS ORDERED: VANCOMYCIN 1 GRAM (PRE-DOCKED) 1,000 MG/250 ML BAG IVPB ONE (12:00)
[2019-11-01 12:21] LABS: ANISOCYTOSIS 1+; OVALOCYTE 1+; TEAR DROP CELLS 1+; TOXIC GRANULATION 1+
[2019-11-01 12:22] LABS: PLATELET ESTIMATE DECREASED
--- NOTE | 2019-11-01 12:53 | PN ---
Physical Exam: SUBJECTIVE: Patient seen and examined bedside. Very lethargic, not her usual self. Patient moaning in pain, appears very uncomfortable. OBJECTIVE: Vital Signs Period Temp Pulse Resp BP Sys/Hernandez Pulse Ox Last 24 Hr 97.3 F-98.3 F 100-112 20-112 95-130/42-74 97-100 GENERAL: The patient is awake, lethargic, in pain. HEAD: Normal with no signs of trauma. EYES: PERRL, extraocular movements intact LUNGS: Crackles BL, decreased breath sounds BL bases HEART: Irregularly irregular ABDOMEN: Soft, nontender, nondistended EXTREMITIES: BL legs in pilar bandages, edema +1 pitting above the knee SKIN: Warm, peeling throughout, +2 ulcers on upper back, +2 sacral ulcer, +2 ulcers BL posterior upper thigh Laboratory Results - last 24 hr 10/31/19 10/31/19 11/01/19 17:05 21:04 06:04 WBC RBC Hgb Hct MCV MCH MCHC RDW Plt Count MPV Absolute Neuts (auto) Total Counted Neutrophils % Neutrophils % (Manual) Band Neutrophils % Lymphocytes % Lymphocytes % (Manual) Monocytes % Monocytes % (Manual) Eosinophils % Basophils % Myelocytes % (Man) Nucleated RBC % Metamyelocytes Toxic Granulation Platelet Estimate Platelet Comment Polychromasia Poikilocytosis Anisocytosis Microcytosis Spherocytes Tear Drop Cells Ovalocytes Stomatocytes Sodium Potassium Chloride Carbon Dioxide Anion Gap BUN Creatinine Est GFR (CKD-EPI)AfAm Est GFR (CKD-EPI)NonAf POC Glucometer 182 177 271 Random Glucose Calcium Phosphorus Magnesium Random Vancomycin 11/01/19 11/01/19 11/01/19 07:15 07:15 07:15 WBC 37.5 H* RBC 2.72 L Hgb 8.0 L Hct 26.4 L MCV 97.1 H MCH 29.4 MCHC 30.3 L RDW 21.8 H Plt Count 82 L MPV 9.0 Absolute Neuts (auto) 35.6 H Total Counted 100 Neutrophils % 94.7 H Neutrophils % (Manual) 84.0 H Band Neutrophils % 9.0 Lymphocytes % 1.9 L Lymphocytes % (Manual) 2.0 L D Monocytes % 2.6 L Monocytes % (Manual) 3 L Eosinophils % 0.6 Basophils % 0.2 Myelocytes % (Man) 1 Nucleated RBC % 0 Metamyelocytes 1 Toxic Granulation 1+ Platelet Estimate Decreased Platelet Comment Large platelets Polychromasia 1+ Poikilocytosis 1+ Anisocytosis 1+ Microcytosis 1+ Spherocytes 1+ Tear Drop Cells 1+ Ovalocytes 1+ Stomatocytes 1+ Sodium 133 L Potassium 4.9 Chloride 99 Carbon Dioxide 19 L Anion Gap 15 BUN 129.3 H* Creatinine 4.1 H Est GFR (CKD-EPI)AfAm 10.51 Est GFR (CKD-EPI)NonAf 9.06 POC Glucometer Random Glucose 271 H Calcium 7.8 L Phosphorus 4.8 Magnesium 2.1 Random Vancomycin 10.6 11/01/19 12:15 WBC RBC Hgb Hct MCV MCH MCHC RDW Plt Count MPV Absolute Neuts (auto) Total Counted Neutrophils % Neutrophils % (Manual) Band Neutrophils % Lymphocytes % Lymphocytes % (Manual) Monocytes % Monocytes % (Manual) Eosinophils % Basophils % Myelocytes % (Man) Nucleated RBC % Metamyelocytes Toxic Granulation Platelet Estimate Platelet Comment Polychromasia Poikilocytosis Anisocytosis Microcytosis Spherocytes Tear Drop Cells Ovalocytes Stomatocytes Sodium Potassium Chloride Carbon Dioxide Anion Gap BUN Creatinine Est GFR (CKD-EPI)AfAm Est GFR (CKD-EPI)NonAf POC Glucometer 251 Random Glucose Calcium Phosphorus Magnesium Random Vancomycin Active Medications Generic Name Dose Route Start Last Admin Trade Name Freq PRN Reason Stop Dose Admin Acetaminophen 650 mg 10/31/19 19:53 11/01/19 10:40 Tylenol - PO 650 mg Q6H PRN Administration PAIN LEVEL 6-10 Apixaban 2.5 mg 10/31/19 22:00 11/01/19 10:40 Eliquis - PO 2.5 mg BID AMRIT Administration Artificial Tears 1 drop 10/31/19 10:00 11/01/19 10:42 Artificial Tears OU 1 drop QID PRN Administration DRY EYES Bacitracin 1 applic 11/01/19 10:00 11/01/19 10:42 Bacitracin - TP 1 applic DAILY [facility]IT Administration Carvedilol 25 mg 10/31/19 22:00 11/01/19 09:54 Coreg - PO Not Given BID AM[facility]IT Docusate Sodium 300 mg 10/31/19 22:00 10/31/19 21:05 Colace - PO 300 mg HS AM[facility]IT Administration Hydroxyzine Pamoate 25 mg 10/31/19 19:53 11/01/19 12:14 Vistaril - PO 25 mg Q8H PRN Administration FOR ITCHING Meropenem 500 mg/ Dextrose 100 mls @ 200 mls/hr 10/30/19 15:30 11/01/19 02:37 IVPB 200 mls/hr Q12H [facility]IT Administration Vancomycin HCl 1,000 mg in 250 mls @ 166.667 mls/hr 11/01/19 12:00 11/01/19 12:11 Vancomycin (Pre-Docked) IVPB 11/01/19 13:29 166.667 mls/hr ONCE ONE Administration Protocol Insulin Aspart 1 vial 10/31/19 16:30 11/01/19 12:16 Novolog Vial Sliding Scale - SQ 6 unit TIDAC AMRIT Administration Protocol Isosorbide Mononitrate 60 mg 11/01/19 10:00 11/01/19 09:54 Imdur - PO Not Given DAILY [facility]IT Levothyroxine Sodium 100 mcg 11/01/19 07:00 11/01/19 06:05 Synthroid - PO 100 mcg DAILY@0700 [facility] Administration Lidocaine 1 patch 11/01/19 10:00 11/01/19 10:39 Lidoderm Patch - TP 1 patch DAILY [facility] Administration Miscellaneous 1 each 10/31/19 22:00 10/31/19 21:06 Lidoderm Patch Removal MC 1 each DAILY@2200 [facility] Administration Multi-Ingredient Ointment 1 applic 11/01/19 10:00 11/01/19 10:41 Zinc Oxide TP 1 applic DAILY [facility] Administration Multivitamins/Minerals/Vitamin C 1 tab 11/01/19 10:00 11/01/19 10:40 Tab-A-Vit - PO 1 tab DAILY [facility]IT Administration Nystatin 1 applic 10/31/19 22:00 11/01/19 10:41 Mycostatin Cream - TP 1 applic BID [facility]IT Administration Oxycodone HCl 5 mg 10/30/19 14:11 11/01/19 10:40 Roxicodone - PO 5 mg Q6H PRN Administration PAIN LEVEL 7 - 10 Pantoprazole Sodium 40 mg 11/01/19 10:00 11/01/19 10:40 Protonix - PO 40 mg DAILY [facility]IT Administration Polyethylene Glycol 17 gm 10/31/19 19:53 11/01/19 10:41 Miralax (For Daily Use) - PO 17 gm DAILY PRN Administration CONSTIPATION ASSESSMENT/PLAN: 89 y/o lady with h/o diastolic CHF, a-fib (on Eliquis), CKD, breast cancer s/p mastectomy, myelodysplasia, IDDM type 2, hypothyroidism, HLD, CVA, & GERD, recent admission for CHF and other condition who was dc on 10/27 to rehab and came back on 10/28 as she did not like rehab. she was found to have worsening leukocytosis and UTI Sepsis 2/2 bacteremia, vs UTI - blood cx: staphylococcus Latex Coag + - Vanc 1 g daily DAY 2. Troph today 10 - Urine cx: no bacteria > 100K, less likely cause of sepsis, consider with ID d/c meropenam - Dr. Bennett following - Patient hypotensive this afternoon 82/53: 1x 250 ml Bolus, recheck BP hourly MAURICE on CKD - Possible volume depletion, asked Nephro to evaluate (Dr. Sequeira) continue to monitor, no fluid right now CHF - hold diuretics for now - BL pilar wraps for leg edema HTN - Cardiology consulted (Dr. Lala) hold Coreg & Imdur for hypotension (possibly due to sepsis) Skin Ulcers - back and sacrum - continue zinc and non stick dressings on back & allevyn dressing on sacrum - continue heel cushion protector - continue air mattress Rash - Continue nystatin and zinc oxide to groins - called Dr. Baker office left message for him that Path says skin biospy results in but need him to sign off before published - H1 blockers for itching Chronic Pain - lidocaine patch - oxycodone Hx of MDS, Chronic Leukocytosis - heme/onc evaluated last admission - nothing to do, patient not candidate for chemo IDDM2 - continue sliding scale - continue levemir DVT Prophylaxis continue eliquis 2.5 BID Other: Spoke with patient's daughter Marybeth today. Dr. Sequeira present. The daughter/health care proxy does not want chest compressions/intubation performed on her mother if her mother's heart were to stop. Patient MOLST form filled out today. Patient is now DNR/DNI. Will follow up with palliative care about patient's GOC and pain management. Visit type - Emergency Visit Emergency Visit: Yes ED Registration Date: 10/30/19 Care time: The patient presented to the Emergency Department on the above date and was hospitalized for further evaluation of their emergent condition. - New Patient This patient is new to me today: No - Critical Care Critical Care patient: No - Discharge Referral Referred to [facility] No - Medication Review Med list reviewed for High Risk Meds patients 65 and older: Yes ATTENDING PHYSICIAN STATEMENT I saw and evaluated the patient. I reviewed the resident's note and discussed the case with the resident. I agree with the resident's findings and plan as documented. SUBJECTIVE: OBJECTIVE: ASSESSMENT AND PLAN:
--- NOTE | 2019-11-01 15:16 | PN ---
Teaching Attending Note Name of Resident: Kylah Denton ATTENDING PHYSICIAN STATEMENT I saw and evaluated the patient. I reviewed the resident's note and discussed the case with the resident. I agree with the resident's findings and plan as documented. SUBJECTIVE: got a dose of oxy last nigth , lethargic this am . arousable. OBJECTIVE: NAD, lethargic , arousable, expresses her needs . dry MM CV: RRR Lungs: CTAB , minimal crackles on L base Ext: edema on feet . . no ulcers on heels ,peeling skin on feet. dark discoloration on L heel but no ulcers . R upper monique superficial wounds at R upper monique stable. No surrounding erythema. Skin: fading maculopapular rash all over peeling skin on hands and abd and feet decub ulcers satge 2 on non blanching base on sacral and upper gluteal areas with some bruising not changed from yesterday . horizontal excoriated skin on posterior upper thighs not changed erythemat in upper thighs excoriations on back especially L side dry now ASSESSMENT AND PLAN: 89 y/o lady with h/o diastolic CHF, a-fib (on Eliquis), CKD, breast cancer s/p mastectomy, myelodysplasia, IDDM type 2, hypothyroidism, HLD, CVA, and GERD , recent admission for CHF and other condition who was dc on 10/27 to rehab and came back on 10/28 as she did not like rehab. she was found to have worsening leukocytosis and UTI 1- Sepsis 2- staph bacteremia 3- chronic diastolic heart failure 4- CKD 5- h/o MDS, chronic leukocytosis 6- chronic anemia 7- skin excoriation and decub ulcers on sacral/gluteal area 8- Mild hyponatremia 9- h/o A fib 10 - maculopapular rash 11- h/o DM 12- h/o Liver mass ,retroperitoneal LAP, b/l adrenal nodules on imaging form last admission plan - staph on blood cx. final is pending - dw/ ID, dc meropenem , re-dose vanco . level noted - renal function is worse. contt ohold diuretics. d/w dr. Jordan, hold off IVF - repeat blood cx - cont coreg 25 BID. - cont eliquis - cont imdur - cont nystatin and zinc oxyde to groins. - air mattress pending - non stick dressings on back excoriated skin. - allevyn dressing on sacrum - ABIOLA wraps on legs - her breast cancer treatment to be started by her oncologist after dc - follow up skin Bx . will call path - H1 blockers for itching - dc oxy codone due to sedation - hold levemir and cont SSI - cont lidocaine patch and add oxycodone - add artifitial tears team met with daughter today and she is DNR/DNI now. patient is not capable of making decisions at this point and daughter is her proxy Palliative care consult pending , regarding Hospice discussion
[2019-11-01] MEDS ORDERED: SODIUM CHLORIDE 250 ML IV STA ×2 (16:56→18:19)
--- NOTE | 2019-11-01 17:20 | CONSULT ---
Consult Consult Specialty:: Palliative care Referred by:: Clint Crane Reason for Consultation:: Goals of care - History of Present Illness Chief Complaint: hypotension, Ac on chr renal failure History of Present Illness: 89 y/o female with PMHx of diastolic CHF, a-fib (on Eliquis), CKD, breast cancer s/p left breast lumpectomy and radiation in 2013, myelodysplasia, IDDM type 2, hypothyroidism, HLD, CVA, and GERD who was recently admitted to [facility] 09/23 - 10/27 with constipation, SOB, b/l leg swelling and nausea for "weeks" and back pain for "several days." Elissa has been in and out of hospitals and nursing homes this past year and she has been bedbound since February of last year. A CT of the abdomen revealed a 4 cm L hepatic lobe hypodense lesion suspicious for metastatic disease as well as a 2.[address] enlargement and enlarged retroperitoneal nodes. Very elevated BNP and edematous- s/p aggressive diuresis with improvement in edema but worsening renal function. 2 hepatic masses seen on [facility] liver- 5.7 cm and 4 cm respectively. She has metastatic breast cancer- pt is not a candidate for aggressive chemo/ sx/ radiation. She was also diagnosed with MDS/ AML or MPN as per haem- onc. Lumbar CT showed multilevel DJD, no neoplastic disease. She refused HD and was transferred to SNF on po torsemide. She was readmitted 10/29 c/o inadequate pain management. She was found to have pyuria, 4/4 blood c/s gpc- on iv vanco now hypotensive and lethargic today. torsemide has been held and she is receiving iv fluids She is now DNR/ DNI Palliative care consult called for [facility]. 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: CVA, Peripheral Neuropathy, Other (guillain barre syndrome, hx bacterial meningitis 1953) Cardio/Vascular: Yes: CHF, HTN Gastrointestinal: Yes: Constipation, GERD Renal/: Yes: Renal Failure ...: No Psych: Yes: Psychosis Musculoskeletal: Yes: Chronic low back pain, Other Endocrine: Yes: Diabetes Mellitus - Past Surgical History Past Surgical History: Yes: Mastectomy - Alcohol/Substance Use Hx Alcohol Use: No History of Substance Use: reports: None - Smoking History Smoking history: Never smoked Have you smoked in the past 12 months: No Aproximately how many cigarettes per day: 0 - Social History Usual Living Arrangement: Halfway ADL: Support Services History of Recent Travel: No Home Medications - Allergies Allergies/Adverse Reactions: Allergies Allergy/AdvReac Type Severity Reaction Status Date / Time NSAIDS (Non-Steroidal Allergy Severe Difficulty Verified 10/30/19 05:27 Anti-Inflamma Breathing ibuprofen Allergy Intermediate Rash Verified 10/30/19 05:27 meloxicam [From Mobic] Allergy Intermediate Rash Verified 10/30/19 05:27 rosiglitazone maleate Allergy Verified 10/30/19 05:27 [From Avandia] albuterol AdvReac Intermediate Elevated Verified 10/30/19 05:27 Blood Pressure epinephrine AdvReac Intermediate Elevated Verified 10/30/19 05:27 Blood Pressure oxycodone HCl [From Percodan] AdvReac Intermediate Elevated Verified 10/30/19 07:29 Blood Pressure oxycodone terephthalate AdvReac Intermediate Elevated Verified 10/30/19 05:27 [From Percodan] Blood Pressure flu shot AdvReac Severe GILLAIN 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 - Home Medications Home Medications: Ambulatory Orders Carvedilol [Coreg -] 25 mg PO BID 06/23/18 Polyethylene Glycol 3350 [Miralax 119 gm Btl -] 17 gm PO DAILY PRN bottle 04/27/19 Apixaban [Eliquis] 2.5 mg PO BID 08/12/19 Isosorbide Mononitrate [Imdur -] 60 mg PO DAILY 08/12/19 Insulin Lispro [Humalog] 100 unit SQ PRN 09/24/19 Pantoprazole Sodium [Protonix] 40 mg PO DAILY 09/24/19 Multivitamin [One-Daily Multi-Vitamin] 1 each PO DAILY 09/25/19 Acetaminophen [Tylenol .Regular Strength -] 650 mg PO Q6H PRN tablet 10/27/19 Lactobacillus Acidophilus [Bacid -] 1 tab PO DAILY tab 10/27/19 Lidocaine Patch Removal [Lidoderm Patch Removal] 1 each MC DAILY@2200 each 10/27/19 Nystatin Cream [Mycostatin Cream -] 1 applic TP BID applic 10/27/19 Polyvinyl Alcohol [Artificial Tears] 1 drop OU BID PRN drops 10/27/19 Torsemide 100 mg PO BID 30 Days #60 tablet 10/27/19 Triamcinolone 0.1% Lotion [Aristocort 0.1% Lotion -] 1 applic TP BID lotion 10/27/19 Zinc Oxide 1 applic TP DAILY tube 10/27/19 hydrOXYzine PAMOATE [Vistaril -] 25 mg PO Q8H PRN capsule 10/27/19 Insulin Glargine,Hum.rec.anlog [Lantus] 20 unit SQ DAILY 30 Days vial 10/28/19 Lidocaine 5% Patch [Lidoderm -] 1 patch TP DAILY #30 patch 10/28/19 Family Medical History Family History: Unable to Obtain Review of Systems Unable to obtain ROS, reason: unresponsive Physical Exam Vital Signs: Vital Signs Temperature 97.5 F L 11/01/19 14:00 Pulse Rate 102 H 11/01/19 14:00 Respiratory Rate 11/01/19 14:00 Blood Pressure 92/60 11/01/19 14:00 O2 Sat by Pulse Oximetry (%) 97 11/01/19 09:00 Eyes: Yes: Conjunctiva Clear HENT: Yes: Atraumatic, Normocephalic Neck: Yes: Supple Cardiovascular: Yes: Tachycardia Respiratory: Yes: Kussmaul, On Nasal O2 Neurological: Yes: Unresponsive Labs: CBC, BMP 11/01/19 07:15 11/01/19 07:15 Imaging - Results Chest X-ray: Report Reviewed Problem List - Problems (1) Acute on chronic diastolic (congestive) heart failure Code(s): I50.33 - ACUTE ON CHRONIC DIASTOLIC (CONGESTIVE) HEART FAILURE (2) CKD (chronic kidney disease) stage 5, GFR less than 15 ml/min Code(s): N18.5 - CHRONIC KIDNEY DISEASE, STAGE 5 (3) Leukocytosis Code(s): D72.829 - ELEVATED WHITE BLOOD CELL COUNT, UNSPECIFIED (4) UTI (urinary tract infection) Code(s): N39.0 - URINARY TRACT INFECTION, SITE NOT SPECIFIED (5) MAURICE (acute kidney injury) Code(s): N17.9 - ACUTE KIDNEY FAILURE, UNSPECIFIED (6) Anemia Code(s): D64.9 - ANEMIA, UNSPECIFIED (7) Breast cancer Code(s): C50.919 - MALIGNANT NEOPLASM OF UNSP SITE OF UNSPECIFIED FEMALE BREAST (8) Shortness of breath Code(s): R06.02 - SHORTNESS OF BREATH Assessment/Plan 89 y/o female with PMHx of CHF, a-fib (on Eliquis), CKD, metastatic breast cancer, myelodysplasia, worsening renal function. Ac on chr renal failure approaching end stage CHF now hypotensive, septic, gram positive bacteremia, unresponsive Patient with multiorgan failure. CPR would be medically futile. Chances of meaningful recovery are slim. She is now DNR/ DNI She would be appropriate for hospice care given her multiple comorbidities, metastatic cancer, debilitated state. [facility] discission ongoing with family. Thanku for allowing me to participate in the care of this patient. Please call with questions Angel Macdonald MD [phone] Total time for chart review, examination, conference and coordination of care- 50 minutes.
--- NOTE | 2019-11-01 17:42 | PN ---
Progress Note, Physician History of Present Illness: Pt seen and examined at bedside. She is lethargic. - Current Medication List Current Medications: Active Medications Acetaminophen (Tylenol -) 650 mg PO Q6H PRN PRN Reason: PAIN LEVEL 6-10 Last Admin: 11/01/19 10:40 Dose: 650 mg Documented by: Apixaban (Eliquis -) 2.5 mg PO BID [facility] Last Admin: 11/01/19 10:40 Dose: 2.5 mg Documented by: Artificial Tears (Artificial Tears) 1 drop OU QID PRN PRN Reason: DRY EYES Last Admin: 11/01/19 10:42 Dose: 1 drop Documented by: Bacitracin (Bacitracin -) 1 applic TP DAILY [facility] Last Admin: 11/01/19 10:42 Dose: 1 applic Documented by: Carvedilol (Coreg -) 25 mg PO BID [facility] Last Admin: 11/01/19 09:54 Dose: Not Given Documented by: Docusate Sodium (Colace -) 300 mg PO HS [facility] Last Admin: 10/31/19 21:05 Dose: 300 mg Documented by: Hydroxyzine Pamoate (Vistaril -) 25 mg PO Q8H PRN PRN Reason: FOR ITCHING Last Admin: 11/01/19 12:14 Dose: 25 mg Documented by: Sodium Chloride (Normal Saline -) 250 mls @ 250 mls/hr IV ASDIR STA Stop: 11/01/19 17:55 Last Admin: 11/01/19 17:14 Dose: 250 mls/hr Documented by: Insulin Aspart (Novolog Vial Sliding Scale -) 1 vial SQ TIDAC [facility]; Protocol Last Admin: 11/01/19 12:16 Dose: 6 unit Documented by: Isosorbide Mononitrate (Imdur -) 60 mg PO DAILY [facility] Last Admin: 11/01/19 09:54 Dose: Not Given Documented by: Levothyroxine Sodium (Synthroid -) 100 mcg PO DAILY@0700 [facility] Last Admin: 11/01/19 06:05 Dose: 100 mcg Documented by: Lidocaine (Lidoderm Patch -) 1 patch TP DAILY [facility] Last Admin: 11/01/19 10:39 Dose: 1 patch Documented by: Miscellaneous (Lidoderm Patch Removal) 1 each MC DAILY@2200 [facility] Last Admin: 10/31/19 21:06 Dose: 1 each Documented by: Multi-Ingredient Ointment (Zinc Oxide) 1 applic TP DAILY [facility] Last Admin: 11/01/19 10:41 Dose: 1 applic Documented by: Multivitamins/Minerals/Vitamin C (Tab-A-Vit -) 1 tab PO DAILY [facility] Last Admin: 11/01/19 10:40 Dose: 1 tab Documented by: Nystatin (Mycostatin Cream -) 1 applic TP BID [facility] Last Admin: 11/01/19 10:41 Dose: 1 applic Documented by: Pantoprazole Sodium (Protonix -) 40 mg PO DAILY [facility] Last Admin: 11/01/19 10:40 Dose: 40 mg Documented by: Polyethylene Glycol (Miralax (For Daily Use) -) 17 gm PO DAILY PRN PRN Reason: CONSTIPATION Last Admin: 11/01/19 10:41 Dose: 17 gm Documented by: - Objective Vital Signs: Vital Signs Temperature 97.5 F L 11/01/19 14:00 Pulse Rate 102 H 11/01/19 14:00 Respiratory Rate 20 11/01/19 14:00 Blood Pressure 92/60 11/01/19 14:00 O2 Sat by Pulse Oximetry (%) 97 11/01/19 09:00 Constitutional: Yes: Calm HENT: Yes: Atraumatic Cardiovascular: Yes: S1, S2 Respiratory: Yes: CTA Bilaterally Gastrointestinal: Yes: Normal Bowel Sounds, Soft Genitourinary: Yes: Santillan Present Musculoskeletal: Yes: WNL Edema: Yes Edema: LLE: 2+, RLE: 2+ Neurological: Yes: Lethargy Labs: CBC, BMP 11/01/19 07:15 11/01/19 07:15 INR, PTT INR 2.88 (0.83-1.09) H 10/30/19 02:14 Problem List - Problems (1) Acute on chronic diastolic (congestive) heart failure Code(s): I50.33 - ACUTE ON CHRONIC DIASTOLIC (CONGESTIVE) HEART FAILURE (2) CHF (congestive heart failure) Code(s): I50.9 - HEART FAILURE, UNSPECIFIED (3) CKD (chronic kidney disease) stage 5, GFR less than 15 ml/min Code(s): N18.5 - CHRONIC KIDNEY DISEASE, STAGE 5 Assessment/Plan Current Medications Generic Name Dose Route Start Last Admin Trade Name Freq PRN Reason Stop Dose Admin Acetaminophen 650 mg 10/31/19 19:53 11/01/19 10:40 Tylenol - PO 650 mg Q6H PRN Administration PAIN LEVEL 6-10 Apixaban 2.5 mg 10/31/19 22:00 11/01/19 10:40 Eliquis - PO 2.5 mg BID [facility]IT Administration Artificial Tears 1 drop 10/31/19 10:00 11/01/19 10:42 Artificial Tears OU 1 drop QID PRN Administration DRY EYES Bacitracin 1 applic 11/01/19 10:00 11/01/19 10:42 Bacitracin - TP 1 applic DAILY [facility] Administration Carvedilol 25 mg 10/31/19 22:00 11/01/19 09:54 Coreg - PO Not Given BID [facility]IT Docusate Sodium 300 mg 10/31/19 22:00 10/31/19 21:05 Colace - PO 300 mg HS [facility] Administration Hydroxyzine Pamoate 25 mg 10/31/19 19:53 11/01/19 12:14 Vistaril - PO 25 mg Q8H PRN Administration FOR ITCHING Sodium Chloride 250 mls @ 250 mls/hr 11/01/19 16:56 11/01/19 17:14 Normal Saline - IV 11/01/19 17:55 250 mls/hr ASDIR STA Administration Insulin Aspart 1 vial 10/31/19 16:30 11/01/19 12:16 Novolog Vial Sliding Scale - SQ 6 unit TIDAC [facility]IT Administration Protocol Isosorbide Mononitrate 60 mg 11/01/19 10:00 11/01/19 09:54 Imdur - PO Not Given DAILY [facility] Levothyroxine Sodium 100 mcg 11/01/19 07:00 11/01/19 06:05 Synthroid - PO 100 mcg DAILY@0700 [facility] Administration Lidocaine 1 patch 11/01/19 10:00 11/01/19 10:39 Lidoderm Patch - TP 1 patch DAILY [facility] Administration Miscellaneous 1 each 10/31/19 22:00 10/31/19 21:06 Lidoderm Patch Removal MC 1 each DAILY@2200 [facility] Administration Multi-Ingredient Ointment 1 applic 11/01/19 10:00 11/01/19 10:41 Zinc Oxide TP 1 applic DAILY [facility] Administration Multivitamins/Minerals/Vitamin C 1 tab 11/01/19 10:00 11/01/19 10:40 Tab-A-Vit - PO 1 tab DAILY [facility] Administration Nystatin 1 applic 10/31/19 22:00 11/01/19 10:41 Mycostatin Cream - TP 1 applic BID [facility] Administration Pantoprazole Sodium 40 mg 11/01/19 10:00 11/01/19 10:40 Protonix - PO 40 mg DAILY [facility] Administration Polyethylene Glycol 17 gm 10/31/19 19:53 11/01/19 10:41 Miralax (For Daily Use) - PO 17 gm DAILY PRN Administration CONSTIPATION Impression 1. proteinuria 2. hypothyroid 3. HTN 4. DM 5. fluid overload 6. breast cancer 7. anemia 8. CKD 9. CHF 10. hyponatremia 11. hypokalemia 12. MAURICE 13. bacteremia Plan - can give bolus - pt doing poorly - cont abx - renal function worsening - spoke to daughter, pt now dnr/dni - family and pt do not want hd therapy - palliative care eval - follow skin biopsy result
[2019-11-01] MEDS ORDERED: SODIUM CHLORIDE 1,000 ML IV SCH (18:30)
--- NOTE | 2019-11-01 19:25 | PN ---
Progress Note (short form) - Note Progress Note: I just spoke to the daughter, Marybeth, about pt's hypotension. She was 80s/50s and was 90/40s after 250cc bolus. She currently has NS running at 50cc/hr for 12 hours (0630 tomorrow to stop). She is DNR/DNI and Marybeth does not want any pressors, central or peripheral, and no central line. I told the her if she received a phone call from us tucker that her mother was about to pass, that she and 1 other person could come visit. She is in understanding.
[2019-11-01] MEDS: DOCUSATE SODIUM 100 MG CAPSULE (FP) PO SCH (22:57)
[2019-11-01] MEDS: LIDOCAINE PATCH REMOVAL MC SCH (22:57)
[2019-11-02] MEDS: ACETAMINOPHEN 325 MG TABLET (FP) PO PRN ×2 (03:32→10:01)
[2019-11-02 05:56] LABS: HEMATOCRIT 25.7 % (32.4-45.2); MCH 29.9 pg (25.7-33.7); MCHC 31.1 g/dl (32.0-36.0); MEAN CELL VOLUME 96.2 fl (80-96); MEAN PLT VOLUME 9.2 fl (7.5-11.1); PLATELET COUNT 65 K/MM3 (134-434); RBC 2.67 M/mm3 (3.60-5.2); RDW 21.3 % (11.6-15.6); WHITE BLOOD COUNT 27.7 K/mm3 (4.0-10.0)
[2019-11-02] MEDS ORDERED: PT OWN MED DRAWER 7, Y5N ONE ×2 (06:12→16:01)
[2019-11-02 06:20] LABS: CALCIUM 7.5 mg/dL (8.5-10.1); CREATININE 4.4 mg/dL (0.55-1.3); POTASSIUM 5.8 mmol/L (3.5-5.1)
[2019-11-02 06:30] LABS: BLOOD UREA NITROGEN 133.9 mg/dL (7-18)
[2019-11-02] MEDS: LEVOTHYROXINE NA 100 MCG TABLET (FP) PO SCH (07:17)
[2019-11-02] MEDS: INSULIN SLIDING SCALE (NOVOLOG) 1 VIAL SQ SCH ×3 (07:17→17:15)
--- NOTE | 2019-11-02 09:29 | PN ---
Progress Note (short form) - Note Progress Note: 89 y/o female with PMHx of CHF, a-fib (on Eliquis), CKD, metastatic breast cancer, myelodysplasia, worsening renal function. Ac on chr renal failure approaching end stage CHF now hypotensive, septic, gram positive bacteremia, unresponsive Patient with multiorgan failure. CPR would be medically futile. Chances of meaningful recovery are slim. She is now DNR/ DNI She would be appropriate for hospice care given her multiple comorbidities, me tastatic cancer, debilitated state. I spoke to pt's daughter today regarding her concerns. She understands that Elissa is not doing well and prognosis is grim. We discussed various options for Ms Singh's comfort. At this point she would like the a/bs, iv fluids and minimal lab work to continue. She is ok with her mother receiving low dose morphine may be used to alleviate pain/ anxiety/ difficulty breathing- 0.5 mg q6-8 h prn. Will follow. Problem List - Problems (1) Acute on chronic diastolic (congestive) heart failure Code(s): I50.33 - ACUTE ON CHRONIC DIASTOLIC (CONGESTIVE) HEART FAILURE (2) CKD (chronic kidney disease) stage 5, GFR less than 15 ml/min Code(s): N18.5 - CHRONIC KIDNEY DISEASE, STAGE 5 (3) Leukocytosis Code(s): D72.829 - ELEVATED WHITE BLOOD CELL COUNT, UNSPECIFIED (4) UTI (urinary tract infection) Code(s): N39.0 - URINARY TRACT INFECTION, SITE NOT SPECIFIED (5) MAURICE (acute kidney injury) Code(s): N17.9 - ACUTE KIDNEY FAILURE, UNSPECIFIED (6) Anemia Code(s): D64.9 - ANEMIA, UNSPECIFIED (7) Breast cancer Code(s): C50.919 - MALIGNANT NEOPLASM OF UNSP SITE OF UNSPECIFIED FEMALE BREAST (8) Shortness of breath Code(s): R06.02 - SHORTNESS OF BREATH
[2019-11-02] MEDS: APIXABAN 2.5 MG TABLET PO SCH ×2 (10:01→22:13)
[2019-11-02] MEDS: MULTIVITAMINS (DAILY MVI) TABLET (FP) PO SCH (10:02)
[2019-11-02] MEDS: BACITRACIN 15 GM TUBE TOPICAL OINTMENT TP SCH (10:02)
[2019-11-02] MEDS: PANTOPRAZOLE 40 MG TABLET PO SCH (10:02)
[2019-11-02] MEDS: LIDOCAINE 5% TOPICAL PATCH TP SCH (10:02)
[2019-11-02] MEDS: NYSTATIN 100,000 UNIT/GM TOPICAL CREAM 15 GM TUBE TP SCH ×2 (10:02→22:20)
[2019-11-02] MEDS: ZINC OXIDE 20% TOPICAL OINTMENT 30 GM TUBE TP SCH (10:02)
[2019-11-02] MEDS: LYTES/YERBA SANTA 60 ML SPRAY MM PRN (11:52)
--- NOTE | 2019-11-02 12:58 | PN ---
Progress Note (short form) - Note Progress Note: cc: back pain s: lethargic, not answering questions. unable to obtain HPI or ROS due to mental status no cigs Current Medications Generic Name Dose Route Start Last Admin Trade Name Freq PRN Reason Stop Dose Admin Acetaminophen 650 mg 10/31/19 19:53 11/02/19 10:01 Tylenol - PO 650 mg Q6H PRN Administration PAIN LEVEL 6-10 Apixaban 2.5 mg 10/31/19 22:00 11/02/19 10:01 Eliquis - PO 2.5 mg BID [facility] Administration Artificial Tears 1 drop 10/31/19 10:00 11/01/19 10:42 Artificial Tears OU 1 drop QID PRN Administration DRY EYES Bacitracin 1 applic 11/01/19 10:00 11/02/19 10:02 Bacitracin - TP 1 applic DAILY [facility] Administration Carvedilol 25 mg 10/31/19 22:00 11/01/19 09:54 Coreg - PO Not Given BID [facility] Docusate Sodium 300 mg 10/31/19 22:00 11/01/19 22:57 Colace - PO 300 mg HS [facility] Administration Hydroxyzine Pamoate 25 mg 10/31/19 19:53 11/01/19 12:14 Vistaril - PO 25 mg Q8H PRN Administration FOR ITCHING Insulin Aspart 1 vial 10/31/19 16:30 11/02/19 11:54 Novolog Vial Sliding Scale - SQ 4 unit TIDAC [facility] Administration Protocol Isosorbide Mononitrate 60 mg 11/01/19 10:00 11/01/19 09:54 Imdur - PO Not Given DAILY [facility] Levothyroxine Sodium 100 mcg 11/01/19 07:00 11/02/19 07:17 Synthroid - PO 100 mcg DAILY@0700 [facility] Administration Lidocaine 1 patch 11/01/19 10:00 11/02/19 10:02 Lidoderm Patch - TP 1 patch DAILY [facility] Administration Miscellaneous 1 each 10/31/19 22:00 11/01/19 22:57 Lidoderm Patch Removal MC 1 each DAILY@2200 [facility] Administration Multi-Ingredient Ointment 1 applic 11/01/19 10:00 11/02/19 10:02 Zinc Oxide TP 1 applic DAILY [facility] Administration Multivitamins/Minerals/Vitamin C 1 tab 11/01/19 10:00 11/02/19 10:02 Tab-A-Vit - PO 1 tab DAILY [facility] Administration Nystatin 1 applic 10/31/19 22:00 11/02/19 10:02 Mycostatin Cream - TP 1 applic BID [facility] Administration Pantoprazole Sodium 40 mg 11/01/19 10:00 11/02/19 10:02 Protonix - PO 40 mg DAILY [facility] Administration Polyethylene Glycol 17 gm 10/31/19 19:53 11/01/19 10:41 Miralax (For Daily Use) - PO 17 gm DAILY PRN Administration CONSTIPATION Saliva Substitute 1 applic 11/02/19 10:10 11/02/19 11:52 Mouthkote Solution MM 1 applic QID PRN Administration dry mouth Vital Signs Period Temp Pulse Resp BP Sys/Hernandez Pulse Ox Last 24 Hr 97.5 F-99.1 F 101-118 16-20 81-99/41-68 95-100 nad no jvd dec bs bases poor eff aao3 1+ le edema bl, no c/c irreg s1s2 no mrg abd nt nd pos bs no jaundice diaphoresis pos dp pt no carotid bruits echo 03/2019 nl LV function, mild MR, mild TR, PASP at least 49 mmHg IMP/REC: chronic diastolic heart failure - recent echo nl LV function - no signs acs - holding aldactone, hydralazine due to rash during prior admission - recent admission for CHF exac, was on IV lasix. it was rec'd that pt have HD but she declined so diuresed with lasix 80 mg IV TID - seen by palliative care prior admit, wished to continue fighting, refused hospice care. now DNR/DNI - on nitrates for cardiorenal syndrome - volume status stable here - now with sepsis, hypotension, holding torsemide HTN: - bp low, likely from sepsis, holding bp meds crow on CKD: - Baseline creat prior is 2-2.5, elevated now, likely cardiorenal, sepsis - renal following PAF: -cont coreg for rate control if bp tolerates -cont eliquis low dose (age, creatinine) anemia: -CKD contributing likely -would continue adjusted dose eliquis for now as doing, close monitoring of counts--if drops or + melena, will have to hold. she is likely too hi risk for GI scopes. liver mass: -heme/onc following
[2019-11-02] MEDS ORDERED: SODIUM CHLORIDE 250 ML IV STA (13:19)
[2019-11-02] MEDS ORDERED: MORPHINE SULFATE 2 MG/ML VIAL IVPUSH PRN (13:52)
--- NOTE | 2019-11-02 14:00 | PN ---
Physical Exam: SUBJECTIVE: Patient seen and examined OBJECTIVE: Vital Signs Period Temp Pulse Resp BP Sys/Hernandez Pulse Ox Last 24 Hr 98.2 F-99.1 F 101-118 16-18 81-99/41-68 95-100 GENERAL: The patient is awake, alert, and fully oriented, in no acute distress. HEAD: Normal with no signs of trauma. EYES: PERRL, extraocular movements intact, sclera anicteric, conjunctiva clear. No ptosis. ENT: Ears normal, nares patent, oropharynx clear without exudates, moist mucous membranes. NECK: Trachea midline, full range of motion, supple. LUNGS: Breath sounds equal, clear to auscultation bilaterally, no wheezes, no crackles, no accessory muscle use. HEART: Regular rate and rhythm, S1, S2 without murmur, rub or gallop. ABDOMEN: Soft, nontender, nondistended, normoactive bowel sounds, no guarding, no rebound, no hepatosplenomegaly, no masses. EXTREMITIES: 2+ pulses, warm, well-perfused, no edema. NEUROLOGICAL: Cranial nerves II through XII grossly intact. Normal speech, gait not observed. PSYCH: Normal mood, normal affect. SKIN: Warm, dry, normal turgor, no rashes or lesions noted Laboratory Results - last 24 hr 11/01/19 11/01/19 11/02/19 17:36 19:45 05:30 WBC RBC Hgb Hct MCV MCH MCHC RDW Plt Count MPV Sodium Potassium Chloride Carbon Dioxide Anion Gap BUN Creatinine Est GFR (CKD-EPI)AfAm Est GFR (CKD-EPI)NonAf POC Glucometer 245 Random Glucose Lactic Acid 2.8 H* Calcium Phosphorus Magnesium Random Vancomycin 20.6 11/02/19 11/02/19 11/02/19 05:30 05:30 07:16 WBC 27.7 H RBC 2.67 L Hgb 8.0 L Hct 25.7 L MCV 96.2 H MCH 29.9 MCHC 31.1 L RDW 21.3 H Plt Count 65 L D MPV 9.2 Sodium 135 L Potassium 5.8 H Chloride 102 Carbon Dioxide 17 L Anion Gap 17 H BUN 133.9 H* Creatinine 4.4 H Est GFR (CKD-EPI)AfAm 9.65 Est GFR (CKD-EPI)NonAf 8.32 POC Glucometer 234 Random Glucose 230 H Lactic Acid Calcium 7.5 L Phosphorus 5.0 H Magnesium 2.0 Random Vancomycin 11/02/19 11:54 WBC RBC Hgb Hct MCV MCH MCHC RDW Plt Count MPV Sodium Potassium Chloride Carbon Dioxide Anion Gap BUN Creatinine Est GFR (CKD-EPI)AfAm Est GFR (CKD-EPI)NonAf POC Glucometer 218 Random Glucose Lactic Acid Calcium Phosphorus Magnesium Random Vancomycin Active Medications Generic Name Dose Route Start Last Admin Trade Name Freq PRN Reason Stop Dose Admin Acetaminophen 650 mg 10/31/19 19:53 11/02/19 10:01 Tylenol - PO 650 mg Q6H PRN Administration PAIN LEVEL 6-10 Apixaban 2.5 mg 10/31/19 22:00 11/02/19 10:01 Eliquis - PO 2.5 mg BID AMRIT Administration Artificial Tears 1 drop 10/31/19 10:00 11/01/19 10:42 Artificial Tears OU 1 drop QID PRN Administration DRY EYES Bacitracin 1 applic 11/01/19 10:00 11/02/19 10:02 Bacitracin - TP 1 applic DAILY AMRIT Administration Carvedilol 25 mg 10/31/19 22:00 11/01/19 09:54 Coreg - PO Not Given BID AMRIT Docusate Sodium 300 mg 10/31/19 22:00 11/01/19 22:57 Colace - PO 300 mg HS AMRIT Administration Hydroxyzine Pamoate 25 mg 10/31/19 19:53 11/01/19 12:14 Vistaril - PO 25 mg Q8H PRN Administration FOR ITCHING Sodium Chloride 250 mls @ 250 mls/hr 11/02/19 13:19 11/02/19 13:52 Normal Saline - IV 11/02/19 14:18 250 mls/hr ASDIR STA Administration Insulin Aspart 1 vial 10/31/19 16:30 11/02/19 11:54 Novolog Vial Sliding Scale - SQ 4 unit TIDAC AMRIT Administration Protocol Isosorbide Mononitrate 60 mg 11/01/19 10:00 11/01/19 09:54 Imdur - PO Not Given DAILY AMRIT Levothyroxine Sodium 100 mcg 11/01/19 07:00 11/02/19 07:17 Synthroid - PO 100 mcg DAILY@0700 AMRIT Administration Lidocaine 1 patch 11/01/19 10:00 11/02/19 10:02 Lidoderm Patch - TP 1 patch DAILY AMRIT Administration Miscellaneous 1 each 10/31/19 22:00 11/01/19 22:57 Lidoderm Patch Removal MC 1 each DAILY@2200 AMRIT Administration Morphine Sulfate 0.5 mg 11/02/19 13:59 Morphine Sulfate IVPUSH Q6H PRN Pain & Dyspnea Multi-Ingredient Ointment 1 applic 11/01/19 10:00 11/02/19 10:02 Zinc Oxide TP 1 applic DAILY AMRIT Administration Multivitamins/Minerals/Vitamin C 1 tab 11/01/19 10:00 11/02/19 10:02 Tab-A-Vit - PO 1 tab DAILY AMRIT Administration Nystatin 1 applic 10/31/19 22:00 11/02/19 10:02 Mycostatin Cream - TP 1 applic BID AMRIT Administration Pantoprazole Sodium 40 mg 11/01/19 10:00 11/02/19 10:02 Protonix - PO 40 mg DAILY AMRIT Administration Polyethylene Glycol 17 gm 10/31/19 19:53 11/01/19 10:41 Miralax (For Daily Use) - PO 17 gm DAILY PRN Administration CONSTIPATION Saliva Substitute 1 applic 11/02/19 10:10 11/02/19 11:52 Mouthkote Solution MM 1 applic QID PRN Administration dry mouth ASSESSMENT/PLAN: ATTENDING PHYSICIAN STATEMENT I saw and evaluated the patient. I reviewed the resident's note and discussed the case with the resident. I agree with the resident's findings and plan as documented. SUBJECTIVE: OBJECTIVE: ASSESSMENT AND PLAN:
[2019-11-02] MEDS: MORPHINE SULFATE 2 MG/ML VIAL IVPUSH PRN ×2 (14:15→20:55)
[2019-11-02] MEDS ORDERED: INSULIN REGULAR HUMAN 100 UNITS/ML *VIAL IVPUSH ONE ×2 (14:29→19:34)
[2019-11-02] MEDS ORDERED: DEXTROSE 50%-WATER - 25 GM/50 ML VIAL IVPUSH ONE (14:30)
[2019-11-02 14:45] VITALS: BMI 30.9
[2019-11-02] MEDS ORDERED: CALCIUM GLUCONATE 10% - 1,000 MG/10 ML VIAL IVPB ONE ×2 (15:00→19:31)
--- NOTE | 2019-11-02 15:29 | PN ---
Progress Note (short form) - Note Progress Note: weak rash unchanged Vital Signs Period Temp Pulse Resp BP Sys/Hernandez Pulse Ox Last 24 Hr 98.1 F-99.1 F 101-118 16-18 81-99/41-68 95-100 cor-rrr llungs decreased bs at bases abd soft,nt ext +edema rash unchanged +her vanco trough 20 CBC, BMP 11/02/19 05:30 11/02/19 05:30 Microbiology 11/01/19 07:15 Blood - Peripheral Venous Blood Culture - Preliminary Pending Organism 10/30/19 05:04 Blood - Peripheral Venous Blood Culture - Final Staphylococcus Latex Coag Pos 10/30/19 05:04 Blood - Peripheral Venous Blood Culture - Final Staphylococcus Aureus 10/30/19 04:10 Urine - Urine - Catheterized Urine Culture - Preliminary Klebsiella Pneumoniae - Esbl Citrobacter Sedlakii Group D Strep Or Entero Coccus Group D Strep Or Entero Coccus#2 11/01/19 07:12 Blood - Peripheral Venous Blood Culture - Preliminary NO GROWTH OBTAINED AFTER 24 HOURS, INCUBATION TO CONTINUE FOR 4 DAYS. a/p MSSA bacteremia- -4/4 gpc clusters-switch to cefazolin in am vanco "on board" today urine culture polymicrobial with low colony count can d/c meropenem worsening renal function-minimal urine output rash-f/u skin biopsy metastatic breast cancer overall prognosis is poor repeat blood cultures-sent and positive one bottle echo noted now dnr/dni Problem List - Problems (1) Leukocytosis Code(s): D72.829 - ELEVATED WHITE BLOOD CELL COUNT, UNSPECIFIED (2) UTI (urinary tract infection) Code(s): N39.0 - URINARY TRACT INFECTION, SITE NOT SPECIFIED (3) Skin rash Code(s): R21 - RASH AND OTHER NONSPECIFIC SKIN ERUPTION (4) Breast cancer Code(s): C50.919 - MALIGNANT NEOPLASM OF UNSP SITE OF UNSPECIFIED FEMALE BREAST (5) MDS (myelodysplastic syndrome) Code(s): D46.9 - MYELODYSPLASTIC SYNDROME, UNSPECIFIED
[2019-11-02] MEDS ORDERED: INSULIN (NOVOLOG) ASPART 100 UNITS/ML 10ML VIAL ONE (17:06)
--- NOTE | 2019-11-02 17:38 | PN ---
Progress Note, Physician History of Present Illness: Pt seen and examined at bedside. She is lethargic. - Current Medication List Current Medications: Active Medications Acetaminophen (Tylenol -) 650 mg PO Q6H PRN PRN Reason: PAIN LEVEL 6-10 Last Admin: 11/02/19 10:01 Dose: 650 mg Documented by: Apixaban (Eliquis -) 2.5 mg PO BID REPLACED BY [facility] Last Admin: 11/02/19 10:01 Dose: 2.5 mg Documented by: Artificial Tears (Artificial Tears) 1 drop OU QID PRN PRN Reason: DRY EYES Last Admin: 11/01/19 10:42 Dose: 1 drop Documented by: Bacitracin (Bacitracin -) 1 applic TP DAILY REPLACED BY [facility] Last Admin: 11/02/19 10:02 Dose: 1 applic Documented by: Carvedilol (Coreg -) 25 mg PO BID REPLACED BY [facility] Last Admin: 11/01/19 09:54 Dose: Not Given Documented by: Docusate Sodium (Colace -) 300 mg PO HS REPLACED BY [facility] Last Admin: 11/01/19 22:57 Dose: 300 mg Documented by: Hydroxyzine Pamoate (Vistaril -) 25 mg PO Q8H PRN PRN Reason: FOR ITCHING Last Admin: 11/01/19 12:14 Dose: 25 mg Documented by: Cefazolin Sodium 1 gm/ (Dextrose) 50 mls @ 100 mls/hr IVPB DAILY REPLACED BY [facility] Insulin Aspart (Novolog Vial Sliding Scale -) 1 vial SQ TIDAC REPLACED BY [facility]; Protocol Last Admin: 11/02/19 17:15 Dose: 4 unit Documented by: Isosorbide Mononitrate (Imdur -) 60 mg PO DAILY REPLACED BY [facility] Last Admin: 11/01/19 09:54 Dose: Not Given Documented by: Levothyroxine Sodium (Synthroid -) 100 mcg PO DAILY@0700 REPLACED BY [facility] Last Admin: 11/02/19 07:17 Dose: 100 mcg Documented by: Lidocaine (Lidoderm Patch -) 1 patch TP DAILY REPLACED BY [facility] Last Admin: 11/02/19 10:02 Dose: 1 patch Documented by: Miscellaneous (Lidoderm Patch Removal) 1 each MC DAILY@2200 REPLACED BY [facility] Last Admin: 11/01/19 22:57 Dose: 1 each Documented by: Morphine Sulfate (Morphine Sulfate) 0.5 mg IVPUSH Q6H PRN PRN Reason: Pain & Dyspnea Last Admin: 11/02/19 14:15 Dose: 0.5 mg Documented by: Multi-Ingredient Ointment (Zinc Oxide) 1 applic TP DAILY REPLACED BY [facility] Last Admin: 11/02/19 10:02 Dose: 1 applic Documented by: Multivitamins/Minerals/Vitamin C (Tab-A-Vit -) 1 tab PO DAILY REPLACED BY [facility] Last Admin: 11/02/19 10:02 Dose: 1 tab Documented by: Nystatin (Mycostatin Cream -) 1 applic TP BID REPLACED BY [facility] Last Admin: 11/02/19 10:02 Dose: 1 applic Documented by: Pantoprazole Sodium (Protonix -) 40 mg PO DAILY REPLACED BY [facility] Last Admin: 11/02/19 10:02 Dose: 40 mg Documented by: Polyethylene Glycol (Miralax (For Daily Use) -) 17 gm PO DAILY PRN PRN Reason: CONSTIPATION Last Admin: 11/01/19 10:41 Dose: 17 gm Documented by: Saliva Substitute (Mouthkote Solution) 1 applic MM QID PRN PRN Reason: dry mouth Last Admin: 11/02/19 11:52 Dose: 1 applic Documented by: - Objective Vital Signs: Vital Signs Temperature 98.6 F 11/02/19 16:20 Pulse Rate 62 11/02/19 16:20 Respiratory Rate 14 11/02/19 16:20 Blood Pressure 85/52 L 11/02/19 16:20 O2 Sat by Pulse Oximetry (%) 100 11/02/19 10:00 Constitutional: Yes: Calm Eyes: Yes: Conjunctiva Clear HENT: Yes: Atraumatic Cardiovascular: Yes: S1, S2 Respiratory: Yes: On Nasal O2 Gastrointestinal: Yes: Normal Bowel Sounds, Soft Genitourinary: Yes: Incontinence Musculoskeletal: Yes: Muscle Weakness Edema: Yes Edema: LLE: 1+, RLE: 1+ Integumentary: Yes: Rash Neurological: Yes: Lethargy Labs: CBC, BMP 11/02/19 05:30 11/02/19 05:30 INR, PTT INR 2.88 (0.83-1.09) H 10/30/19 02:14 Problem List - Problems (1) Acute on chronic diastolic (congestive) heart failure Code(s): I50.33 - ACUTE ON CHRONIC DIASTOLIC (CONGESTIVE) HEART FAILURE (2) CHF (congestive heart failure) Code(s): I50.9 - HEART FAILURE, UNSPECIFIED (3) CKD (chronic kidney disease) stage 5, GFR less than 15 ml/min Code(s): N18.5 - CHRONIC KIDNEY DISEASE, STAGE 5 Assessment/Plan Current Medications Generic Name Dose Route Start Last Admin Trade Name Freq PRN Reason Stop Dose Admin Acetaminophen 650 mg 10/31/19 19:53 11/02/19 10:01 Tylenol - PO 650 mg Q6H PRN Administration PAIN LEVEL 6-10 Apixaban 2.5 mg 10/31/19 22:00 11/02/19 10:01 Eliquis - PO 2.5 mg BID AMRIT Administration Artificial Tears 1 drop 10/31/19 10:00 11/01/19 10:42 Artificial Tears OU 1 drop QID PRN Administration DRY EYES Bacitracin 1 applic 11/01/19 10:00 11/02/19 10:02 Bacitracin - TP 1 applic DAILY AMRIT Administration Carvedilol 25 mg 10/31/19 22:00 11/01/19 09:54 Coreg - PO Not Given BID AMRIT Docusate Sodium 300 mg 10/31/19 22:00 11/01/19 22:57 Colace - PO 300 mg HS AMRIT Administration Hydroxyzine Pamoate 25 mg 10/31/19 19:53 11/01/19 12:14 Vistaril - PO 25 mg Q8H PRN Administration FOR ITCHING Cefazolin Sodium 1 gm/ 50 mls @ 100 mls/hr 11/03/19 10:00 Dextrose IVPB DAILY AMRIT Insulin Aspart 1 vial 10/31/19 16:30 11/02/19 17:15 Novolog Vial Sliding Scale - SQ 4 unit TIDAC AMRIT Administration Protocol Isosorbide Mononitrate 60 mg 11/01/19 10:00 11/01/19 09:54 Imdur - PO Not Given DAILY AMRIT Levothyroxine Sodium 100 mcg 11/01/19 07:00 11/02/19 07:17 Synthroid - PO 100 mcg DAILY@0700 AMRIT Administration Lidocaine 1 patch 11/01/19 10:00 11/02/19 10:02 Lidoderm Patch - TP 1 patch DAILY AMRIT Administration Miscellaneous 1 each 10/31/19 22:00 11/01/19 22:57 Lidoderm Patch Removal MC 1 each DAILY@2200 AMRIT Administration Morphine Sulfate 0.5 mg 11/02/19 13:59 11/02/19 14:15 Morphine Sulfate IVPUSH 0.5 mg Q6H PRN Administration Pain & Dyspnea Multi-Ingredient Ointment 1 applic 11/01/19 10:00 11/02/19 10:02 Zinc Oxide TP 1 applic DAILY AMRIT Administration Multivitamins/Minerals/Vitamin C 1 tab 11/01/19 10:00 11/02/19 10:02 Tab-A-Vit - PO 1 tab DAILY AMRIT Administration Nystatin 1 applic 10/31/19 22:00 11/02/19 10:02 Mycostatin Cream - TP 1 applic BID AMRIT Administration Pantoprazole Sodium 40 mg 11/01/19 10:00 11/02/19 10:02 Protonix - PO 40 mg DAILY AMRIT Administration Polyethylene Glycol 17 gm 10/31/19 19:53 11/01/19 10:41 Miralax (For Daily Use) - PO 17 gm DAILY PRN Administration CONSTIPATION Saliva Substitute 1 applic 11/02/19 10:10 11/02/19 11:52 Mouthkote Solution MM 1 applic QID PRN Administration dry mouth Impression 1. proteinuria 2. hypothyroid 3. HTN 4. DM 5. fluid overload 6. breast cancer 7. anemia 8. CKD 9. CHF 10. hyponatremia 11. hypokalemia 12. MAURICE 13. bacteremia 14. hyperkalemia Plan - pt doing poorly - treat potassium medically - po intake is poor - she did require a fluid bolus yesterday - family and pt do not want hd therapy - palliative care eval - follow skin biopsy result
--- NOTE | 2019-11-02 18:12 | PN ---
Physical Exam: SUBJECTIVE: Patient seen and examined bedside. She is very lethargic, not capable of having conversation. Complaining of itching, denies any pain at the moment. OBJECTIVE: Vital Signs Period Temp Pulse Resp BP Sys/Hernandez Pulse Ox Last 24 Hr 98.1 F-99.1 F 62-118 14-18 81-99/41-68 95-100 GENERAL: Patient is arousable but lethargic, breathing heavily HEAD: Normal with no signs of trauma. EYES: PERRL, extraocular movements intact ENT: dry mucous membranes, mouth very dry LUNGS: Crackles BL, decreased breath sounds BL bases HEART: Irregularly irregular ABDOMEN: Soft, nontender, nondistended EXTREMITIES: BL pitting edema Laboratory Results - last 24 hr 11/01/19 11/02/19 11/02/19 19:45 05:30 05:30 WBC RBC Hgb Hct MCV MCH MCHC RDW Plt Count MPV Sodium 135 L Potassium 5.8 H Chloride 102 Carbon Dioxide 17 L Anion Gap 17 H BUN 133.9 H* Creatinine 4.4 H Est GFR (CKD-EPI)AfAm 9.65 Est GFR (CKD-EPI)NonAf 8.32 POC Glucometer Random Glucose 230 H Lactic Acid 2.8 H* Calcium 7.5 L Phosphorus 5.0 H Magnesium 2.0 Random Vancomycin 20.6 11/02/19 11/02/19 11/02/19 05:30 07:16 11:54 WBC 27.7 H RBC 2.67 L Hgb 8.0 L Hct 25.7 L MCV 96.2 H MCH 29.9 MCHC 31.1 L RDW 21.3 H Plt Count 65 L D MPV 9.2 Sodium Potassium Chloride Carbon Dioxide Anion Gap BUN Creatinine Est GFR (CKD-EPI)AfAm Est GFR (CKD-EPI)NonAf POC Glucometer 234 218 Random Glucose Lactic Acid Calcium Phosphorus Magnesium Random Vancomycin 11/02/19 17:14 WBC RBC Hgb Hct MCV MCH MCHC RDW Plt Count MPV Sodium Potassium Chloride Carbon Dioxide Anion Gap BUN Creatinine Est GFR (CKD-EPI)AfAm Est GFR (CKD-EPI)NonAf POC Glucometer 221 Random Glucose Lactic Acid Calcium Phosphorus Magnesium Random Vancomycin Active Medications Generic Name Dose Route Start Last Admin Trade Name Freq PRN Reason Stop Dose Admin Acetaminophen 650 mg 10/31/19 19:53 11/02/19 10:01 Tylenol - PO 650 mg Q6H PRN Administration PAIN LEVEL 6-10 Apixaban 2.5 mg 10/31/19 22:00 11/02/19 10:01 Eliquis - PO 2.5 mg BID AMRIT Administration Artificial Tears 1 drop 10/31/19 10:00 11/01/19 10:42 Artificial Tears OU 1 drop QID PRN Administration DRY EYES Bacitracin 1 applic 11/01/19 10:00 11/02/19 10:02 Bacitracin - TP 1 applic DAILY AMRIT Administration Carvedilol 25 mg 10/31/19 22:00 11/01/19 09:54 Coreg - PO Not Given BID AMRIT Docusate Sodium 300 mg 10/31/19 22:00 11/01/19 22:57 Colace - PO 300 mg HS AMRIT Administration Hydroxyzine Pamoate 25 mg 10/31/19 19:53 11/01/19 12:14 Vistaril - PO 25 mg Q8H PRN Administration FOR ITCHING Cefazolin Sodium 1 gm/ 50 mls @ 100 mls/hr 11/03/19 10:00 Dextrose IVPB DAILY AMRIT Insulin Aspart 1 vial 10/31/19 16:30 11/02/19 17:15 Novolog Vial Sliding Scale - SQ 4 unit TIDAC AMRIT Administration Protocol Isosorbide Mononitrate 60 mg 11/01/19 10:00 11/01/19 09:54 Imdur - PO Not Given DAILY AMRIT Levothyroxine Sodium 100 mcg 11/01/19 07:00 11/02/19 07:17 Synthroid - PO 100 mcg DAILY@0700 AMRIT Administration Lidocaine 1 patch 11/01/19 10:00 11/02/19 10:02 Lidoderm Patch - TP 1 patch DAILY AMRIT Administration Miscellaneous 1 each 10/31/19 22:00 11/01/19 22:57 Lidoderm Patch Removal MC 1 each DAILY@2200 AMRIT Administration Morphine Sulfate 0.5 mg 11/02/19 13:59 11/02/19 14:15 Morphine Sulfate IVPUSH 0.5 mg Q6H PRN Administration Pain & Dyspnea Multi-Ingredient Ointment 1 applic 11/01/19 10:00 11/02/19 10:02 Zinc Oxide TP 1 applic DAILY AMRIT Administration Multivitamins/Minerals/Vitamin C 1 tab 11/01/19 10:00 11/02/19 10:02 Tab-A-Vit - PO 1 tab DAILY AMRIT Administration Nystatin 1 applic 10/31/19 22:00 11/02/19 10:02 Mycostatin Cream - TP 1 applic BID AMRIT Administration Pantoprazole Sodium 40 mg 11/01/19 10:00 11/02/19 10:02 Protonix - PO 40 mg DAILY AMRIT Administration Polyethylene Glycol 17 gm 10/31/19 19:53 11/01/19 10:41 Miralax (For Daily Use) - PO 17 gm DAILY PRN Administration CONSTIPATION Saliva Substitute 1 applic 11/02/19 10:10 11/02/19 11:52 Mouthkote Solution MM 1 applic QID PRN Administration dry mouth ASSESSMENT/PLAN: 89 y/o lady with h/o diastolic CHF, a-fib (on Eliquis), CKD, breast cancer s/p mastectomy, myelodysplasia, IDDM type 2, hypothyroidism, HLD, CVA, & GERD, recent admission for CHF and other condition who was dc on 10/27 to rehab and came back on 10/28 as she did not like rehab. she was found to have worsening leukocytosis and UTI Sepsis 2/2 bacteremia - blood cx: staphylococcus Latex Coag + - Dr. Bennett following -Vanc troph 20 today/ vanc stopped today MSSA bacteremia: gpc clusters - switch to cefazolin tomorrow AM - Patient continues to be intermittently hypotensive, continuing small boluses as needed - Palliative Care (Dr. Macdonald) Spoke with daughter, she would like to continue antibiotics, iv fluids, and minimal lab work. She is ok with her mother receiving low dose morphine - Morphine 0.5 IV Q6H PRN MAURICE on CKD - Nephro consulted (Dr. Sequeira) hyperkalemia today (5.8) treat potassium medically patient and family don't want HD - Lokelma 5 mg PO given CHF - hold diuretics for now - BL pilar wraps for leg edema HTN - Cardiology consulted (Dr. Lala) hold Coreg & Imdur for hypotension (possibly due to sepsis) Skin Ulcers - back and sacrum - continue zinc and non stick dressings on back & allevyn dressing on sacrum - continue heel cushion protector - continue air mattress Rash - Continue nystatin and zinc oxide to groins - Skin biopsy results: superficial, perivascular mixed inflammatory cell infiltrate that extends to the dermo-epidermal junction where there are vacuolar alterations and necrotic keratinocytes. 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 If the dermatitis does not resolve, a direct immunofluorescence study would be useful. - H1 blockers for itching Chronic Pain - lidocaine patch - oxycodone Hx of MDS, Chronic Leukocytosis - heme/onc evaluated last admission - nothing to do, patient not candidate for chemo IDDM2 - continue sliding scale - hold levemir DVT Prophylaxis continue eliquis 2.5 BID Other: Visit type - Emergency Visit Emergency Visit: Yes ED Registration Date: 10/30/19 Care time: The patient presented to the Emergency Department on the above date and was hospitalized for further evaluation of their emergent condition. - New Patient This patient is new to me today: No - Critical Care Critical Care patient: No - Discharge Referral Referred to [facility] No - Medication Review Med list reviewed for High Risk Meds patients 65 and older: Yes ATTENDING PHYSICIAN STATEMENT I saw and evaluated the patient. I reviewed the resident's note and discussed the case with the resident. I agree with the resident's findings and plan as documented. SUBJECTIVE: OBJECTIVE: ASSESSMENT AND PLAN:
[2019-11-02] MEDS: SODIUM ZIRCONIUM CYCLOSILICATE (LOKELMA) 5 GM PACKET PO SCH (18:26)
--- NOTE | 2019-11-02 18:32 | PN ---
Teaching Attending Note Name of Resident: Kylah Denton ATTENDING PHYSICIAN STATEMENT I saw and evaluated the patient. I reviewed the resident's note and discussed the case with the resident. I agree with the resident's findings and plan as documented. SUBJECTIVE: Patient is in pain. OBJECTIVE: Vital Signs Temperature 98.6 F 11/02/19 16:20 Pulse Rate 62 11/02/19 16:20 Respiratory Rate 14 11/02/19 16:20 Blood Pressure 85/52 L 11/02/19 16:20 O2 Sat by Pulse Oximetry (%) 100 11/02/19 10:00 PE: per resident's note scaly skin CBCD WBC 27.7 K/mm3 (4.0-10.0) H 11/02/19 05:30 RBC 2.67 M/mm3 (3.60-5.2) L 11/02/19 05:30 Hgb 8.0 GM/dL (10.7-15.3) L 11/02/19 05:30 Hct 25.7 % (32.4-45.2) L 11/02/19 05:30 MCV 96.2 fl (80-96) H 11/02/19 05:30 MCHC 31.1 g/dl (32.0-36.0) L 11/02/19 05:30 RDW 21.3 % (11.6-15.6) H 11/02/19 05:30 Plt Count 65 K/MM3 (134-434) L D 11/02/19 05:30 MPV 9.2 fl (7.5-11.1) 11/02/19 05:30 CMP Sodium 135 mmol/L (136-145) L 11/02/19 05:30 Potassium 5.8 mmol/L (3.5-5.1) H 11/02/19 05:30 Chloride 102 mmol/L (98-107) 11/02/19 05:30 Carbon Dioxide 17 mmol/L (21-32) L 11/02/19 05:30 Anion Gap 17 MMOL/L (8-16) H 11/02/19 05:30 BUN 133.9 mg/dL (7-18) H* 11/02/19 05:30 Creatinine 4.4 mg/dL (0.55-1.3) H 11/02/19 05:30 Random Glucose 230 mg/dL (74-106) H 11/02/19 05:30 Calcium 7.5 mg/dL (8.5-10.1) L 11/02/19 05:30 Total Bilirubin 0.9 mg/dL (0.2-1) 10/31/19 06:14 AST 32 U/L (15-37) 10/31/19 06:14 ALT 12 U/L (13-61) L 10/31/19 06:14 Alkaline Phosphatase 450 U/L (45-117) H 10/31/19 06:14 Total Protein 6.1 g/dl (6.4-8.2) L 10/31/19 06:14 Albumin 2.2 g/dl (3.4-5.0) L 10/31/19 06:14 CARDIAC ENZYMES Creatine Kinase 26 U/L (26-192) 10/30/19 02:14 Troponin I 0.03 ng/ml (0.00-0.05) 10/30/19 11:13 Current Medications Generic Name Dose Route Start Last Admin Trade Name Freq PRN Reason Stop Dose Admin Acetaminophen 650 mg 10/31/19 19:53 11/02/19 10:01 Tylenol - PO 650 mg Q6H PRN Administration PAIN LEVEL 6-10 Apixaban 2.5 mg 10/31/19 22:00 11/02/19 10:01 Eliquis - PO 2.5 mg BID [facility] Administration Artificial Tears 1 drop 10/31/19 10:00 11/01/19 10:42 Artificial Tears OU 1 drop QID PRN Administration DRY EYES Bacitracin 1 applic 11/01/19 10:00 11/02/19 10:02 Bacitracin - TP 1 applic DAILY [facility] Administration Carvedilol 25 mg 10/31/19 22:00 11/01/19 09:54 Coreg - PO Not Given BID [facility] Docusate Sodium 300 mg 10/31/19 22:00 11/01/19 22:57 Colace - PO 300 mg HS [facility] Administration Hydroxyzine Pamoate 25 mg 10/31/19 19:53 11/01/19 12:14 Vistaril - PO 25 mg Q8H PRN Administration FOR ITCHING Cefazolin Sodium 1 gm/ 50 mls @ 100 mls/hr 11/03/19 10:00 Dextrose IVPB DAILY [facility] Insulin Aspart 1 vial 10/31/19 16:30 11/02/19 17:15 Novolog Vial Sliding Scale - SQ 4 unit TIDAC [facility] Administration Protocol Isosorbide Mononitrate 60 mg 11/01/19 10:00 11/01/19 09:54 Imdur - PO Not Given DAILY [facility] Levothyroxine Sodium 100 mcg 11/01/19 07:00 11/02/19 07:17 Synthroid - PO 100 mcg DAILY@0700 [facility] Administration Lidocaine 1 patch 11/01/19 10:00 11/02/19 10:02 Lidoderm Patch - TP 1 patch DAILY [facility] Administration Miscellaneous 1 each 10/31/19 22:00 11/01/19 22:57 Lidoderm Patch Removal MC 1 each DAILY@2200 [facility] Administration Morphine Sulfate 0.5 mg 11/02/19 13:59 11/02/19 14:15 Morphine Sulfate IVPUSH 0.5 mg Q6H PRN Administration Pain & Dyspnea Multi-Ingredient Ointment 1 applic 11/01/19 10:00 11/02/19 10:02 Zinc Oxide TP 1 applic DAILY [facility] Administration Multivitamins/Minerals/Vitamin C 1 tab 11/01/19 10:00 11/02/19 10:02 Tab-A-Vit - PO 1 tab DAILY [facility] Administration Nystatin 1 applic 10/31/19 22:00 11/02/19 10:02 Mycostatin Cream - TP 1 applic BID [facility] Administration Pantoprazole Sodium 40 mg 11/01/19 10:00 11/02/19 10:02 Protonix - PO 40 mg DAILY [facility] Administration Polyethylene Glycol 17 gm 10/31/19 19:53 11/01/19 10:41 Miralax (For Daily Use) - PO 17 gm DAILY PRN Administration CONSTIPATION Saliva Substitute 1 applic 11/02/19 10:10 11/02/19 11:52 Mouthkote Solution MM 1 applic QID PRN Administration dry mouth Sodium Zirconium Cyclosilicate 5 gm 11/02/19 18:00 11/02/19 18:26 Lokelma PO 5 gm DAILY@0800 [facility] Administration Home Medications Medication Instructions Recorded Carvedilol [Coreg -] 25 mg PO BID 06/23/18 Polyethylene Glycol 3350 [Miralax 17 gm PO DAILY PRN bottle 04/27/19 119 gm Btl -] Apixaban [Eliquis] 2.5 mg PO BID 08/12/19 Isosorbide Mononitrate [Imdur -] 60 mg PO DAILY 08/12/19 Insulin Lispro [Humalog] 100 unit SQ PRN 09/24/19 Pantoprazole Sodium [Protonix] 40 mg PO DAILY 09/24/19 Multivitamin [One-Daily 1 each PO DAILY 09/25/19 Multi-Vitamin] Acetaminophen [Tylenol .Regular 650 mg PO Q6H PRN tablet 10/27/19 Strength -] Lactobacillus Acidophilus [Bacid -] 1 tab PO DAILY tab 10/27/19 Lidocaine Patch Removal [Lidoderm 1 each MC DAILY@2200 each 10/27/19 Patch Removal] Nystatin Cream [Mycostatin Cream -] 1 applic TP BID applic 10/27/19 Polyvinyl Alcohol [Artificial 1 drop OU BID PRN drops 10/27/19 Tears] Torsemide 100 mg PO BID 30 Days #60 tablet 10/27/19 Triamcinolone 0.1% Lotion 1 applic TP BID lotion 10/27/19 [Aristocort 0.1% Lotion -] Zinc Oxide 1 applic TP DAILY tube 10/27/19 hydrOXYzine PAMOATE [Vistaril -] 25 mg PO Q8H PRN capsule 10/27/19 Insulin Glargine,Hum.rec.anlog 20 unit SQ DAILY 30 Days vial 10/28/19 [Lantus] Lidocaine 5% Patch [Lidoderm -] 1 patch TP DAILY #30 patch 10/28/19 Microbiology 11/01/19 07:12 Blood - Peripheral Venous Blood Culture - Preliminary Pending Organism 11/01/19 07:15 Blood - Peripheral Venous Blood Culture - Preliminary Pending Organism 10/30/19 05:04 Blood - Peripheral Venous Blood Culture - Final Staphylococcus Latex Coag Pos 10/30/19 05:04 Blood - Peripheral Venous Blood Culture - Final Staphylococcus Aureus 10/30/19 04:10 Urine - Urine - Catheterized Urine Culture - Preliminary Klebsiella Pneumoniae - Esbl Citrobacter Sedlakii Group D Strep Or Entero Coccus Group D Strep Or Entero Coccus#2 ASSESSMENT AND PLAN: This is an 89yof with PMhx of diastolic CHF, a-fib (on Eliquis), CKD, breast cancer s/p mastectomy, myelodysplasia, T2DM, hypothyroidism, HLD, CVA, and GERD , recent admission for CHF and was dc'd on 10/27 to rehab and came back on 10/28 as she did not like rehab. she was found to have worsening leukocytosis and UTI. #Thrombocytopenia due to Eliquis will hold the Eliquis # Sepsis due to cx above: dw/ ID, dc meropenem. re-dose vanco . level is 20, vanco is on hold , ID on the case # staph bacteremia on Cefazolin IV as per ID # chronic diastolic heart failure :cont coreg 25 BID,imdur # Acute renal disease over CKD : hold diuretics for now as per nephro # Hx of MDS, with chronic leukocytosis and anemia #Skin excoriation and decub ulcers on sacral/gluteal area: allevyn dressing on sacrum ,air mattress # Mild hyponatremia # Hx of A-fib : coreg, will stop eliquis since has thrombocytopenia # Maculopapular rash # Hx T2DM # Hx Liver mass ,retroperitoneal LAP, b/l adrenal nodules on imaging form last admission DVT Px: Eliquis : discontinued eliquis due to thrombocytopenia, ABIOLA wraps on legs DNR/DNI , palliative care on board
[2019-11-02] MEDS: SODIUM CHLORIDE 0.45% 1,000 ML IV SCH (18:54)
[2019-11-02 19:07] LABS: CALCIUM 7.6 mg/dL (8.5-10.1); CREATININE 4.7 mg/dL (0.55-1.3); POTASSIUM 5.7 mmol/L (3.5-5.1)
[2019-11-02 19:09] LABS: BLOOD UREA NITROGEN 141.4 mg/dL (7-18)
[2019-11-02] MEDS ORDERED: DEXTROSE 50%-WATER 25 GM/50 ML DISP.SYRIN IVPUSH ONE (19:33)
[2019-11-02] MEDS ORDERED: DEXTROSE 50%-WATER 25 GM/50 ML DISP.SYRIN ONE (20:34)
[2019-11-02] MEDS: DOCUSATE SODIUM 100 MG CAPSULE (FP) PO SCH (22:13)
[2019-11-02] MEDS: LIDOCAINE PATCH REMOVAL MC SCH (22:20)
[2019-11-03] MEDS: LEVOTHYROXINE NA 100 MCG TABLET (FP) PO SCH (07:11)
[2019-11-03] MEDS: MORPHINE SULFATE 2 MG/ML VIAL IVPUSH PRN ×2 (07:12→16:30)
[2019-11-03] MEDS: INSULIN SLIDING SCALE (NOVOLOG) 1 VIAL SQ SCH ×3 (07:13→16:33)
[2019-11-03 08:21] LABS: HEMATOCRIT 25.2 % (32.4-45.2); HEMOGLOBIN 7.7 GM/dL (10.7-15.3); MCH 29.6 pg (25.7-33.7); MCHC 30.4 g/dl (32.0-36.0); MEAN CELL VOLUME 97.4 fl (80-96); MEAN PLT VOLUME 8.7 fl (7.5-11.1); PLATELET COUNT 46 K/MM3 (134-434); RBC 2.59 M/mm3 (3.60-5.2); RDW 21.8 % (11.6-15.6); WHITE BLOOD COUNT 24.2 K/mm3 (4.0-10.0)
[2019-11-03 08:43] LABS: CALCIUM 7.6 mg/dL (8.5-10.1)
[2019-11-03 08:50] LABS: BLOOD UREA NITROGEN 141.9 mg/dL (7-18); POTASSIUM 6.1 mmol/L (3.5-5.1)
[2019-11-03] MEDS ORDERED: INSULIN REGULAR HUMAN 100 UNITS/ML *VIAL IVPUSH ONE (09:12)
[2019-11-03] MEDS ORDERED: CALCIUM GLUCONATE 10% - 1,000 MG/10 ML VIAL IVPB ONE (09:12)
[2019-11-03] MEDS ORDERED: DEXTROSE 50%-WATER - 25 GM/50 ML VIAL IVPUSH ONE (09:14)
[2019-11-03] MEDS: APIXABAN 2.5 MG TABLET PO SCH (09:15)
[2019-11-03] MEDS: MULTIVITAMINS (DAILY MVI) TABLET (FP) PO SCH (09:15)
[2019-11-03] MEDS: PANTOPRAZOLE 40 MG TABLET PO SCH (09:15)
[2019-11-03] MEDS: SODIUM ZIRCONIUM CYCLOSILICATE (LOKELMA) 5 GM PACKET PO SCH (09:15)
[2019-11-03] MEDS ORDERED: DEXTROSE 5%-WATER - 50 ML IVPB ONE (09:40)
[2019-11-03] MEDS ORDERED: ceFAZolin SODIUM 1 GM VIAL ONE (09:40)
[2019-11-03] MEDS: LIDOCAINE 5% TOPICAL PATCH TP SCH (09:47)
[2019-11-03] MEDS: BACITRACIN 15 GM TUBE TOPICAL OINTMENT TP SCH (09:47)
[2019-11-03] MEDS: CEFAZOLIN 1 GM in DEXTROSE 5%-WATER - 50 ML IVPB SCH (09:47)
[2019-11-03] MEDS: ZINC OXIDE 20% TOPICAL OINTMENT 30 GM TUBE TP SCH (09:48)
[2019-11-03] MEDS: NYSTATIN 100,000 UNIT/GM TOPICAL CREAM 15 GM TUBE TP SCH ×2 (09:48→22:15)
[2019-11-03] MEDS ORDERED: MINERAL OIL 30 ML UNIT-DOSE CUP PO ONE ×2 (10:00→13:10)
[2019-11-03] MEDS ORDERED: SODIUM ZIRCONIUM CYCLOSILICATE (LOKELMA) 5 GM PACKET PO ONE (10:15)
[2019-11-03] MEDS ORDERED: INSULIN (NOVOLOG) ASPART 100 UNITS/ML 10ML VIAL ONE (10:16)
[2019-11-03] MEDS ORDERED: DEXTROSE 50%-WATER 25 GM/50 ML DISP.SYRIN ONE (10:16)
[2019-11-03] MEDS: MINERAL OIL/PET HY-PHL TOPICAL OINTMENT 454 GM JAR TP SCH ×2 (10:35→22:13)
--- NOTE | 2019-11-03 11:32 | PN ---
Progress Note (short form) - Note Progress Note: weak rash unchanged doing poorly lethargic Vital Signs Period Temp Pulse Resp BP Sys/Hernandez Pulse Ox Last 24 Hr 98.2 F-99.3 F 106-118 16-20 92-112/40-87 96-100 cor-rrr lungs decreased bs at bases abd soft,nt ext trace edema rash unchanged +her minimal urine output CBC, BMP 11/03/19 06:55 11/03/19 06:55 Microbiology 10/30/19 04:10 Urine - Urine - Catheterized Urine Culture - Final Klebsiella Pneumoniae - Esbl Citrobacter Sedlakii Vr Ec Faecalis Enterococcus Raffinosus 11/01/19 07:12 Blood - Peripheral Venous Blood Culture - Preliminary Staphylococcus Latex Coag Pos 11/01/19 07:15 Blood - Peripheral Venous Blood Culture - Preliminary Staphylococcus Latex Coag Pos 10/30/19 05:04 Blood - Peripheral Venous Blood Culture - Final Staphylococcus Latex Coag Pos 10/30/19 05:04 Blood - Peripheral Venous Blood Culture - Final Staphylococcus Aureus a/p MSSA bacteremia- -continue cefazoline dosed for renal failure urine culture polymicrobial with low colony counts worsening renal function-minimal urine output-no plans for HD rash-f/u skin biopsy metastatic breast cancer overall prognosis is poor now dnr/dni Problem List - Problems (1) Leukocytosis Code(s): D72.829 - ELEVATED WHITE BLOOD CELL COUNT, UNSPECIFIED (2) UTI (urinary tract infection) Code(s): N39.0 - URINARY TRACT INFECTION, SITE NOT SPECIFIED (3) Skin rash Code(s): R21 - RASH AND OTHER NONSPECIFIC SKIN ERUPTION (4) Breast cancer Code(s): C50.919 - MALIGNANT NEOPLASM OF UNSP SITE OF UNSPECIFIED FEMALE BREAST (5) MDS (myelodysplastic syndrome) Code(s): D46.9 - MYELODYSPLASTIC SYNDROME, UNSPECIFIED
[2019-11-03] MEDS ORDERED: INSULIN (NOVOLOG) ASPART 100 UNITS/ML 10ML VIAL SQ ONE (12:15)
[2019-11-03] MEDS ORDERED: SODIUM BICARBONATE 8.4% 50 MEQ/50 ML DISP.SYRIN IVPUSH ONE (12:50)
--- NOTE | 2019-11-03 12:50 | PN ---
Progress Note, Physician History of Present Illness: Pt seen and examined at bedside. She is lethargic. - Current Medication List Current Medications: Active Medications Acetaminophen (Tylenol -) 650 mg PO Q6H PRN PRN Reason: PAIN LEVEL 6-10 Last Admin: 11/02/19 10:01 Dose: 650 mg Documented by: Apixaban (Eliquis -) 2.5 mg PO BID [facility] Last Admin: 11/03/19 09:15 Dose: Not Given Documented by: Artificial Tears (Artificial Tears) 1 drop OU QID PRN PRN Reason: DRY EYES Last Admin: 11/01/19 10:42 Dose: 1 drop Documented by: Bacitracin (Bacitracin -) 1 applic TP DAILY [facility] Last Admin: 11/03/19 09:47 Dose: 1 applic Documented by: Carvedilol (Coreg -) 25 mg PO BID [facility] Last Admin: 11/01/19 09:54 Dose: Not Given Documented by: Docusate Sodium (Colace -) 300 mg PO HS [facility] Last Admin: 11/02/19 22:13 Dose: 300 mg Documented by: Emollient Ointment (Aquaphor -) 1 applic TP BID [facility] Last Admin: 11/03/19 10:35 Dose: 1 applic Documented by: Hydroxyzine Pamoate (Vistaril -) 25 mg PO Q8H PRN PRN Reason: FOR ITCHING Last Admin: 11/01/19 12:14 Dose: 25 mg Documented by: Cefazolin Sodium 1 gm/ (Dextrose) 50 mls @ 100 mls/hr IVPB DAILY [facility] Last Admin: 11/03/19 09:47 Dose: 100 mls/hr Documented by: Sodium Chloride (1/2 Normal Saline) 1,000 mls @ 42 mls/hr IV ASDIR [facility] Last Admin: 11/02/19 18:54 Dose: 42 mls/hr Documented by: Insulin Aspart (Novolog Vial Sliding Scale -) 1 vial SQ TIDAC [facility]; Protocol Last Admin: 11/03/19 10:36 Dose: 10 unit Documented by: Isosorbide Mononitrate (Imdur -) 60 mg PO DAILY [facility] Last Admin: 11/01/19 09:54 Dose: Not Given Documented by: Levothyroxine Sodium (Synthroid -) 100 mcg PO DAILY@0700 [facility] Last Admin: 11/03/19 07:11 Dose: 100 mcg Documented by: Lidocaine (Lidoderm Patch -) 1 patch TP DAILY [facility] Last Admin: 11/03/19 09:47 Dose: 1 patch Documented by: Miscellaneous (Lidoderm Patch Removal) 1 each MC DAILY@2200 [facility] Last Admin: 11/02/19 22:20 Dose: 1 each Documented by: Morphine Sulfate (Morphine Sulfate) 0.5 mg IVPUSH Q6H PRN PRN Reason: Pain & Dyspnea Last Admin: 11/03/19 07:12 Dose: 0.5 mg Documented by: Multi-Ingredient Ointment (Zinc Oxide) 1 applic TP DAILY [facility] Last Admin: 11/03/19 09:48 Dose: 1 applic Documented by: Multivitamins/Minerals/Vitamin C (Tab-A-Vit -) 1 tab PO DAILY [facility] Last Admin: 11/03/19 09:15 Dose: Not Given Documented by: Nystatin (Mycostatin Cream -) 1 applic TP BID [facility] Last Admin: 11/03/19 09:48 Dose: 1 applic Documented by: Pantoprazole Sodium (Protonix -) 40 mg PO DAILY [facility] Last Admin: 11/03/19 09:15 Dose: Not Given Documented by: Polyethylene Glycol (Miralax (For Daily Use) -) 17 gm PO DAILY PRN PRN Reason: CONSTIPATION Last Admin: 11/01/19 10:41 Dose: 17 gm Documented by: Saliva Substitute (Mouthkote Solution) 1 applic MM QID PRN PRN Reason: dry mouth Last Admin: 11/02/19 11:52 Dose: 1 applic Documented by: Sodium Zirconium Cyclosilicate (Lokelma) 5 gm PO DAILY@0800 [facility] Last Admin: 11/03/19 09:15 Dose: Not Given Documented by: - Objective Vital Signs: Vital Signs Temperature 98.6 F 11/03/19 06:00 Pulse Rate 116 H 11/03/19 06:00 Respiratory Rate 18 11/03/19 06:00 Blood Pressure 112/87 11/03/19 06:00 O2 Sat by Pulse Oximetry (%) 100 11/03/19 06:00 Constitutional: Yes: Calm Eyes: Yes: Conjunctiva Clear HENT: Yes: Atraumatic Cardiovascular: Yes: S1, S2 Respiratory: Yes: On Nasal O2 Gastrointestinal: Yes: Soft Genitourinary: Yes: Incontinence Musculoskeletal: Yes: Muscle Weakness Edema: Yes Edema: LLE: 1+, RLE: 1+ Neurological: Yes: Lethargy Labs: CBC, BMP 11/03/19 06:55 11/03/19 06:55 INR, PTT INR 2.88 (0.83-1.09) H 10/30/19 02:14 Problem List - Problems (1) Acute on chronic diastolic (congestive) heart failure Code(s): I50.33 - ACUTE ON CHRONIC DIASTOLIC (CONGESTIVE) HEART FAILURE (2) CHF (congestive heart failure) Code(s): I50.9 - HEART FAILURE, UNSPECIFIED (3) CKD (chronic kidney disease) stage 5, GFR less than 15 ml/min Code(s): N18.5 - CHRONIC KIDNEY DISEASE, STAGE 5 Assessment/Plan Current Medications Generic Name Dose Route Start Last Admin Trade Name Freq PRN Reason Stop Dose Admin Acetaminophen 650 mg 10/31/19 19:53 11/02/19 10:01 Tylenol - PO 650 mg Q6H PRN Administration PAIN LEVEL 6-10 Apixaban 2.5 mg 10/31/19 22:00 11/03/19 09:15 Eliquis - PO Not Given BID [facility] Artificial Tears 1 drop 10/31/19 10:00 11/01/19 10:42 Artificial Tears OU 1 drop QID PRN Administration DRY EYES Bacitracin 1 applic 11/01/19 10:00 11/03/19 09:47 Bacitracin - TP 1 applic DAILY [facility] Administration Carvedilol 25 mg 10/31/19 22:00 11/01/19 09:54 Coreg - PO Not Given BID [facility] Docusate Sodium 300 mg 10/31/19 22:00 11/02/19 22:13 Colace - PO 300 mg HS [facility] Administration Emollient Ointment 1 applic 11/03/19 10:00 11/03/19 10:35 Aquaphor - TP 1 applic BID [facility] Administration Hydroxyzine Pamoate 25 mg 10/31/19 19:53 11/01/19 12:14 Vistaril - PO 25 mg Q8H PRN Administration FOR ITCHING Cefazolin Sodium 1 gm/ 50 mls @ 100 mls/hr 11/03/19 10:00 11/03/19 09:47 Dextrose IVPB 100 mls/hr DAILY [facility] Administration Sodium Chloride 1,000 mls @ 42 mls/hr 11/02/19 18:45 11/02/19 18:54 1/2 Normal Saline IV 42 mls/hr ASDIR [facility] Administration Insulin Aspart 1 vial 10/31/19 16:30 11/03/19 10:36 Novolog Vial Sliding Scale - SQ 10 unit TIDAC [facility] Administration Protocol Isosorbide Mononitrate 60 mg 11/01/19 10:00 11/01/19 09:54 Imdur - PO Not Given DAILY [facility] Levothyroxine Sodium 100 mcg 11/01/19 07:00 11/03/19 07:11 Synthroid - PO 100 mcg DAILY@0700 [facility] Administration Lidocaine 1 patch 11/01/19 10:00 11/03/19 09:47 Lidoderm Patch - TP 1 patch DAILY [facility] Administration Miscellaneous 1 each 10/31/19 22:00 11/02/19 22:20 Lidoderm Patch Removal MC 1 each DAILY@2200 [facility] Administration Morphine Sulfate 0.5 mg 11/02/19 13:59 11/03/19 07:12 Morphine Sulfate IVPUSH 0.5 mg Q6H PRN Administration Pain & Dyspnea Multi-Ingredient Ointment 1 applic 11/01/19 10:00 11/03/19 09:48 Zinc Oxide TP 1 applic DAILY [facility] Administration Multivitamins/Minerals/Vitamin C 1 tab 11/01/19 10:00 11/03/19 09:15 Tab-A-Vit - PO Not Given DAILY [facility] Nystatin 1 applic 10/31/19 22:00 11/03/19 09:48 Mycostatin Cream - TP 1 applic BID [facility] Administration Pantoprazole Sodium 40 mg 11/01/19 10:00 11/03/19 09:15 Protonix - PO Not Given DAILY [facility] Polyethylene Glycol 17 gm 10/31/19 19:53 11/01/19 10:41 Miralax (For Daily Use) - PO 17 gm DAILY PRN Administration CONSTIPATION Saliva Substitute 1 applic 11/02/19 10:10 11/02/19 11:52 Mouthkote Solution MM 1 applic QID PRN Administration dry mouth Sodium Zirconium Cyclosilicate 5 gm 11/02/19 18:00 11/03/19 09:15 Lokelma PO Not Given DAILY@0800 [facility] Impression 1. proteinuria 2. hypothyroid 3. HTN 4. DM 5. fluid overload 6. breast cancer 7. anemia 8. CKD 9. CHF 10. hyponatremia 11. hypokalemia 12. MAURICE 13. bacteremia 14. hyperkalemia Plan - cont to treat potassium medically - pt and family do not want hd therapy - palliative care eval - discuss further GOC including blood-draws
[2019-11-03] MEDS ORDERED: ACETAMINOPHEN 1000 MG/100 ML VIAL (NON FORMULARY) IVPB PRN ×2 (13:12→13:30)
--- NOTE | 2019-11-03 13:13 | PN ---
Progress Note (short form) - Note Progress Note: cc: back pain s: unable to obtain HPI or ROS due to mental status Current Medications Generic Name Dose Route Start Last Admin Trade Name Moiseq PRN Reason Stop Dose Admin Acetaminophen 650 mg 10/31/19 19:53 11/02/19 10:01 Tylenol - PO 650 mg Q6H PRN Administration PAIN LEVEL 6-10 Artificial Tears 1 drop 10/31/19 10:00 11/01/19 10:42 Artificial Tears OU 1 drop QID PRN Administration DRY EYES Bacitracin 1 applic 11/01/19 10:00 11/03/19 09:47 Bacitracin - TP 1 applic DAILY [facility] Administration Carvedilol 25 mg 10/31/19 22:00 11/01/19 09:54 Coreg - PO Not Given BID [facility] Docusate Sodium 300 mg 10/31/19 22:00 11/02/19 22:13 Colace - PO 300 mg HS [facility] Administration Emollient Ointment 1 applic 11/03/19 10:00 11/03/19 10:35 Aquaphor - TP 1 applic BID [facility] Administration Hydroxyzine Pamoate 25 mg 10/31/19 19:53 11/01/19 12:14 Vistaril - PO 25 mg Q8H PRN Administration FOR ITCHING Cefazolin Sodium 1 gm/ 50 mls @ 100 mls/hr 11/03/19 10:00 11/03/19 09:47 Dextrose IVPB 100 mls/hr DAILY [facility] Administration Sodium Chloride 1,000 mls @ 42 mls/hr 11/02/19 18:45 11/02/19 18:54 1/2 Normal Saline IV 42 mls/hr ASDIR [facility] Administration Insulin Aspart 1 vial 10/31/19 16:30 11/03/19 10:36 Novolog Vial Sliding Scale - SQ 10 unit TIDAC [facility] Administration Protocol Isosorbide Mononitrate 60 mg 11/01/19 10:00 11/01/19 09:54 Imdur - PO Not Given DAILY [facility] Levothyroxine Sodium 100 mcg 11/01/19 07:00 11/03/19 07:11 Synthroid - PO 100 mcg DAILY@0700 [facility] Administration Lidocaine 1 patch 11/01/19 10:00 11/03/19 09:47 Lidoderm Patch - TP 1 patch DAILY [facility] Administration Mineral Oil 10 ml 11/03/19 13:10 Mineral Oil - PO 11/03/19 13:11 TID ONE Miscellaneous 1 each 10/31/19 22:00 11/02/19 22:20 Lidoderm Patch Removal MC 1 each DAILY@2200 [facility] Administration Morphine Sulfate 0.5 mg 11/02/19 13:59 11/03/19 07:12 Morphine Sulfate IVPUSH 0.5 mg Q6H PRN Administration Pain & Dyspnea Multi-Ingredient Ointment 1 applic 11/01/19 10:00 11/03/19 09:48 Zinc Oxide TP 1 applic DAILY [facility] Administration Multivitamins/Minerals/Vitamin C 1 tab 11/01/19 10:00 11/03/19 09:15 Tab-A-Vit - PO Not Given DAILY [facility] Nystatin 1 applic 10/31/19 22:00 11/03/19 09:48 Mycostatin Cream - TP 1 applic BID [facility] Administration Pantoprazole Sodium 40 mg 11/01/19 10:00 11/03/19 09:15 Protonix - PO Not Given DAILY [facility] Pantoprazole Sodium 40 mg 11/04/19 10:00 Protonix Iv IVPUSH DAILY [facility] Polyethylene Glycol 17 gm 10/31/19 19:53 11/01/19 10:41 Miralax (For Daily Use) - PO 17 gm DAILY PRN Administration CONSTIPATION Saliva Substitute 1 applic 11/02/19 10:10 11/02/19 11:52 Mouthkote Solution MM 1 applic QID PRN Administration dry mouth Sodium Bicarbonate 50 meq 11/03/19 12:50 Sodium Bicarbonate 8.4% - IVPUSH 11/03/19 12:51 ONCE ONE Sodium Zirconium Cyclosilicate 5 gm 11/02/19 18:00 11/03/19 09:15 Lokelma PO Not Given DAILY@0800 [facility] Vital Signs Period Temp Pulse Resp BP Sys/Hernandez Pulse Ox Last 24 Hr 98.1 F-99.3 F 62-118 14-18 81-112/41-87 96-100 nad no jvd dec bs bases poor eff aao3 1+ le edema bl, no c/c irreg s1s2 no mrg abd nt nd pos bs no jaundice diaphoresis pos dp pt no carotid bruits echo 03/2019 nl LV function, mild MR, mild TR, PASP at least 49 mmHg IMP/REC: chronic diastolic heart failure - recent echo nl LV function - no signs acs - holding aldactone, hydralazine due to rash during prior admission - recent admission for CHF exac, was on IV lasix. it was rec'd that pt have HD but she declined so diuresed with lasix 80 mg IV TID - seen by palliative care prior admit, wished to continue fighting, refused hospice care. now DNR/DNI with ongoing discussions with family regarding goals of care - on nitrates for cardiorenal syndrome - volume status stable here - now with sepsis, hypotension, holding torsemide HTN: - bp low, likely from sepsis, holding bp meds crow on CKD: - Baseline creat prior is 2-2.5, elevated now, likely cardiorenal, sepsis - renal following PAF: -cont coreg for rate control if bp tolerates -cont eliquis low dose (age, creatinine) anemia: -CKD contributing likely -would continue adjusted dose eliquis for now as doing, close monitoring of counts--if drops or + melena, will have to hold. she is likely too hi risk for GI scopes. liver mass: -heme/onc following
[2019-11-03] MEDS: MINERAL OIL 30 ML UNIT-DOSE CUP PO SCH ×3 (14:04→22:14)
--- NOTE | 2019-11-03 14:34 | PN ---
Teaching Attending Note Name of Resident: Kylah Dneton ATTENDING PHYSICIAN STATEMENT I saw and evaluated the patient. I reviewed the resident's note and discussed the case with the resident. I agree with the resident's findings and plan as documented. SUBJECTIVE: Patient is having agonal breathing . unresponsive. OBJECTIVE: Vital Signs Temperature 98.2 F 11/03/19 10:00 Pulse Rate 106 H 11/03/19 10:00 Respiratory Rate 20 11/03/19 10:00 Blood Pressure 97/40 L 11/03/19 10:00 O2 Sat by Pulse Oximetry (%) 99 11/03/19 10:00 PE: per resident's note agonal breathing bleeding from oral orafices skin excoriating CBCD WBC 24.2 K/mm3 (4.0-10.0) H 11/03/19 06:55 RBC 2.59 M/mm3 (3.60-5.2) L 11/03/19 06:55 Hgb 7.7 GM/dL (10.7-15.3) L 11/03/19 06:55 Hct 25.2 % (32.4-45.2) L 11/03/19 06:55 MCV 97.4 fl (80-96) H 11/03/19 06:55 MCHC 30.4 g/dl (32.0-36.0) L 11/03/19 06:55 RDW 21.8 % (11.6-15.6) H 11/03/19 06:55 Plt Count 46 K/MM3 (134-434) L D 11/03/19 06:55 MPV 8.7 fl (7.5-11.1) 11/03/19 06:55 CMP Sodium 136 mmol/L (136-145) 11/03/19 06:55 Potassium 6.1 mmol/L (3.5-5.1) H* 11/03/19 06:55 Chloride 103 mmol/L (98-107) 11/03/19 06:55 Carbon Dioxide 17 mmol/L (21-32) L 11/03/19 06:55 Anion Gap 17 MMOL/L (8-16) H 11/03/19 06:55 BUN 141.9 mg/dL (7-18) H* 11/03/19 06:55 Creatinine 5.0 mg/dL (0.55-1.3) H 11/03/19 06:55 Random Glucose 268 mg/dL (74-106) H 11/03/19 06:55 Calcium 7.6 mg/dL (8.5-10.1) L 11/03/19 06:55 Total Bilirubin 0.9 mg/dL (0.2-1) 10/31/19 06:14 AST 32 U/L (15-37) 10/31/19 06:14 ALT 12 U/L (13-61) L 10/31/19 06:14 Alkaline Phosphatase 450 U/L (45-117) H 10/31/19 06:14 Total Protein 6.1 g/dl (6.4-8.2) L 10/31/19 06:14 Albumin 2.2 g/dl (3.4-5.0) L 10/31/19 06:14 CARDIAC ENZYMES Creatine Kinase 26 U/L (26-192) 10/30/19 02:14 Troponin I 0.03 ng/ml (0.00-0.05) 10/30/19 11:13 Current Medications Generic Name Dose Route Start Last Admin Trade Name Freq PRN Reason Stop Dose Admin Acetaminophen 1,000 mg 11/03/19 13:30 Ofirmev Injection - IVPB 11/06/19 13:13 Q6H PRN PAIN LEVEL 1-5 Artificial Tears 1 drop 10/31/19 10:00 11/01/19 10:42 Artificial Tears OU 1 drop QID PRN Administration DRY EYES Bacitracin 1 applic 11/01/19 10:00 11/03/19 09:47 Bacitracin - TP 1 applic DAILY [facility] Administration Carvedilol 25 mg 10/31/19 22:00 11/01/19 09:54 Coreg - PO Not Given BID [facility]IT Docusate Sodium 300 mg 10/31/19 22:00 11/02/19 22:13 Colace - PO 300 mg HS [facility]IT Administration Emollient Ointment 1 applic 11/03/19 10:00 11/03/19 10:35 Aquaphor - TP 1 applic BID [facility]IT Administration Hydroxyzine Pamoate 25 mg 10/31/19 19:53 11/01/19 12:14 Vistaril - PO 25 mg Q8H PRN Administration FOR ITCHING Cefazolin Sodium 1 gm/ 50 mls @ 100 mls/hr 11/03/19 10:00 11/03/19 09:47 Dextrose IVPB 100 mls/hr DAILY [facility] Administration Sodium Chloride 1,000 mls @ 42 mls/hr 11/02/19 18:45 11/02/19 18:54 1/2 Normal Saline IV 42 mls/hr ASDIR [facility] Administration Sodium Bicarbonate 50 meq/ 1,050 mls @ 1,050 mls/hr 11/03/19 14:00 Sodium Chloride IVPB 11/03/19 15:00 Q1H [facility] Insulin Aspart 1 vial 10/31/19 16:30 11/03/19 10:36 Novolog Vial Sliding Scale - SQ 10 unit TIDAC [facility] Administration Protocol Isosorbide Mononitrate 60 mg 11/01/19 10:00 11/01/19 09:54 Imdur - PO Not Given DAILY [facility] Levothyroxine Sodium 100 mcg 11/01/19 07:00 11/03/19 07:11 Synthroid - PO 100 mcg DAILY@0700 [facility] Administration Lidocaine 1 patch 11/01/19 10:00 11/03/19 09:47 Lidoderm Patch - TP 1 patch DAILY [facility] Administration Mineral Oil 10 ml 11/03/19 13:15 11/03/19 14:04 Mineral Oil - PO Not Given TID [facility]IT Miscellaneous 1 each 10/31/19 22:00 11/02/19 22:20 Lidoderm Patch Removal MC 1 each DAILY@2200 [facility] Administration Morphine Sulfate 0.5 mg 11/02/19 13:59 11/03/19 07:12 Morphine Sulfate IVPUSH 0.5 mg Q6H PRN Administration Pain & Dyspnea Multi-Ingredient Ointment 1 applic 11/01/19 10:00 11/03/19 09:48 Zinc Oxide TP 1 applic DAILY [facility] Administration Multivitamins/Minerals/Vitamin C 1 tab 11/01/19 10:00 11/03/19 09:15 Tab-A-Vit - PO Not Given DAILY [facility] Nystatin 1 applic 10/31/19 22:00 11/03/19 09:48 Mycostatin Cream - TP 1 applic BID AMRIT Administration Pantoprazole Sodium 40 mg 11/01/19 10:00 11/03/19 09:15 Protonix - PO Not Given DAILY [facility] Pantoprazole Sodium 40 mg 11/04/19 10:00 Protonix Iv IVPUSH DAILY [facility] Polyethylene Glycol 17 gm 10/31/19 19:53 11/01/19 10:41 Miralax (For Daily Use) - PO 17 gm DAILY PRN Administration CONSTIPATION Saliva Substitute 1 applic 11/02/19 10:10 11/02/19 11:52 Mouthkote Solution MM 1 applic QID PRN Administration dry mouth Sodium Zirconium Cyclosilicate 5 gm 11/02/19 18:00 11/03/19 09:15 Lokelma PO Not Given DAILY@0800 [facility] Home Medications Medication Instructions Recorded Carvedilol [Coreg -] 25 mg PO BID 06/23/18 Polyethylene Glycol 3350 [Miralax 17 gm PO DAILY PRN bottle 04/27/19 119 gm Btl -] Apixaban [Eliquis] 2.5 mg PO BID 08/12/19 Isosorbide Mononitrate [Imdur -] 60 mg PO DAILY 08/12/19 Insulin Lispro [Humalog] 100 unit SQ PRN 09/24/19 Pantoprazole Sodium [Protonix] 40 mg PO DAILY 09/24/19 Multivitamin [One-Daily 1 each PO DAILY 09/25/19 Multi-Vitamin] Acetaminophen [Tylenol .Regular 650 mg PO Q6H PRN tablet 10/27/19 Strength -] Lactobacillus Acidophilus [Bacid -] 1 tab PO DAILY tab 10/27/19 Lidocaine Patch Removal [Lidoderm 1 each MC DAILY@2200 each 10/27/19 Patch Removal] Nystatin Cream [Mycostatin Cream -] 1 applic TP BID applic 10/27/19 Polyvinyl Alcohol [Artificial 1 drop OU BID PRN drops 10/27/19 Tears] Torsemide 100 mg PO BID 30 Days #60 tablet 10/27/19 Triamcinolone 0.1% Lotion 1 applic TP BID lotion 10/27/19 [Aristocort 0.1% Lotion -] Zinc Oxide 1 applic TP DAILY tube 10/27/19 hydrOXYzine PAMOATE [Vistaril -] 25 mg PO Q8H PRN capsule 10/27/19 Insulin Glargine,Hum.rec.anlog 20 unit SQ DAILY 30 Days vial 10/28/19 [Lantus] Lidocaine 5% Patch [Lidoderm -] 1 patch TP DAILY #30 patch 10/28/19 Microbiology 10/30/19 04:10 Urine - Urine - Catheterized Urine Culture - Final Klebsiella Pneumoniae - Esbl Citrobacter Sedlakii Vr Ec Faecalis Enterococcus Raffinosus 11/01/19 07:12 Blood - Peripheral Venous Blood Culture - Preliminary Staphylococcus Latex Coag Pos 11/01/19 07:15 Blood - Peripheral Venous Blood Culture - Preliminary Staphylococcus Latex Coag Pos 10/30/19 05:04 Blood - Peripheral Venous Blood Culture - Final Staphylococcus Latex Coag Pos 10/30/19 05:04 Blood - Peripheral Venous Blood Culture - Final Staphylococcus Aureus ASSESSMENT AND PLAN: This is an 89yof with PMhx of diastolic CHF, a-fib (on Eliquis), CKD, breast cancer s/p mastectomy, myelodysplasia, T2DM, hypothyroidism, HLD, CVA, and GERD , recent admission for CHF and was dc'd on 10/27 to rehab and came back on 10/28 as she did not like rehab. she was found to have worsening leukocytosis and UTI. #Thrombocytopenia due to Eliquis will hold the Eliquis # Sepsis due to cx above: dw/ ID, dc meropenem. re-dose vanco . level is 20, vanco is on hold , ID on the case # staph bacteremia on Cefazolin IV as per ID # chronic diastolic heart failure :cont coreg 25 BID,imdur # Acute renal disease over CKD : hold diuretics for now as per nephro # Hx of MDS, with chronic leukocytosis and anemia #Skin excoriation and decub ulcers on sacral/gluteal area: allevyn dressing on sacrum ,air mattress # Mild hyponatremia # Hx of A-fib : coreg, will stop eliquis since has thrombocytopenia # Maculopapular rash # Hx T2DM # Hx Liver mass ,retroperitoneal LAP, b/l adrenal nodules on imaging form last admission DVT Px: Eliquis : discontinued eliquis due to thrombocytopenia, ABIOLA wraps on legs DNR/DNI , palliative care on board
--- NOTE | 2019-11-03 15:24 | PN ---
Physical Exam: SUBJECTIVE: Patient seen and examined bedside. Resting with her mouth open, breathing is labored. Not able to have conversation or endorse any complaints. OBJECTIVE: Vital Signs 11/03/19 11/03/19 09:00 10:00 Temperature 98.2 F Pulse Rate 106 H Respiratory 20 20 Rate Blood Pressure 97/40 L O2 Sat by Pulse 99 99 Oximetry (%) GENERAL: Patient is arousable but lethargic, breathing heavily. HEAD: Normal with no signs of trauma. EYES: unable to assess ENT: dry mucous membranes, mouth very dry LUNGS: Crackles BL, decreased breath sounds BL HEART: Irregularly irregular ABDOMEN: Soft, nontender, nondistended EXTREMITIES: BL pitting edema Laboratory Results - last 24 hr 11/02/19 11/02/19 11/02/19 17:00 17:14 22:12 WBC RBC Hgb Hct MCV MCH MCHC RDW Plt Count MPV Sodium 136 Potassium 5.7 H Chloride 104 Carbon Dioxide 20 L Anion Gap 13 BUN 141.4 H* Creatinine 4.7 H Est GFR (CKD-EPI)AfAm 8.91 Est GFR (CKD-EPI)NonAf 7.68 POC Glucometer 221 189 Random Glucose 220 H Calcium 7.6 L 11/03/19 11/03/19 11/03/19 01:39 06:55 06:55 WBC 24.2 H RBC 2.59 L Hgb 7.7 L Hct 25.2 L MCV 97.4 H MCH 29.6 MCHC 30.4 L RDW 21.8 H Plt Count 46 L D MPV 8.7 Sodium 136 Potassium 6.1 H* Chloride 103 Carbon Dioxide 17 L Anion Gap 17 H BUN 141.9 H* Creatinine 5.0 H Est GFR (CKD-EPI)AfAm 8.26 Est GFR (CKD-EPI)NonAf 7.13 POC Glucometer 180 Random Glucose 268 H Calcium 7.6 L 11/03/19 11/03/19 07:10 10:28 WBC RBC Hgb Hct MCV MCH MCHC RDW Plt Count MPV Sodium Potassium Chloride Carbon Dioxide Anion Gap BUN Creatinine Est GFR (CKD-EPI)AfAm Est GFR (CKD-EPI)NonAf POC Glucometer 254 369 Random Glucose Calcium Active Medications Generic Name Dose Route Start Last Admin Trade Name Freq PRN Reason Stop Dose Admin Acetaminophen 1,000 mg 11/03/19 13:30 Ofirmev Injection - IVPB 08/01/20 13:13 Q6H PRN PAIN LEVEL 1-5 Artificial Tears 1 drop 10/31/19 10:00 11/01/19 10:42 Artificial Tears OU 1 drop QID PRN Administration DRY EYES Bacitracin 1 applic 11/01/19 10:00 11/03/19 09:47 Bacitracin - TP 1 applic DAILY AMRIT Administration Carvedilol 25 mg 10/31/19 22:00 11/01/19 09:54 Coreg - PO Not Given BID AMRIT Docusate Sodium 300 mg 10/31/19 22:00 11/02/19 22:13 Colace - PO 300 mg HS AMRIT Administration Emollient Ointment 1 applic 11/03/19 10:00 11/03/19 10:35 Aquaphor - TP 1 applic BID AMRIT Administration Hydroxyzine Pamoate 25 mg 10/31/19 19:53 11/01/19 12:14 Vistaril - PO 25 mg Q8H PRN Administration FOR ITCHING Cefazolin Sodium 1 gm/ 50 mls @ 100 mls/hr 11/03/19 10:00 11/03/19 09:47 Dextrose IVPB 100 mls/hr DAILY [facility]IT Administration Sodium Chloride 1,000 mls @ 42 mls/hr 11/02/19 18:45 11/02/19 18:54 1/2 Normal Saline IV 42 mls/hr ASDIR AM[facility]IT Administration Insulin Aspart 1 vial 10/31/19 16:30 11/03/19 10:36 Novolog Vial Sliding Scale - SQ 10 unit TIDAC AM[facility]IT Administration Protocol Isosorbide Mononitrate 60 mg 11/01/19 10:00 11/01/19 09:54 Imdur - PO Not Given DAILY [facility]IT Levothyroxine Sodium 100 mcg 11/01/19 07:00 11/03/19 07:11 Synthroid - PO 100 mcg DAILY@0700 [facility] Administration Lidocaine 1 patch 11/01/19 10:00 11/03/19 09:47 Lidoderm Patch - TP 1 patch DAILY [facility] Administration Mineral Oil 10 ml 11/03/19 13:15 11/03/19 14:04 Mineral Oil - PO Not Given TID AMRIT Miscellaneous 1 each 10/31/19 22:00 11/02/19 22:20 Lidoderm Patch Removal MC 1 each DAILY@2200 [facility] Administration Morphine Sulfate 0.5 mg 11/02/19 13:59 11/03/19 07:12 Morphine Sulfate IVPUSH 0.5 mg Q6H PRN Administration Pain & Dyspnea Multi-Ingredient Ointment 1 applic 11/01/19 10:00 11/03/19 09:48 Zinc Oxide TP 1 applic DAILY [facility]IT Administration Multivitamins/Minerals/Vitamin C 1 tab 11/01/19 10:00 11/03/19 09:15 Tab-A-Vit - PO Not Given DAILY [facility] Nystatin 1 applic 10/31/19 22:00 11/03/19 09:48 Mycostatin Cream - TP 1 applic BID AMRIT Administration Pantoprazole Sodium 40 mg 11/01/19 10:00 11/03/19 09:15 Protonix - PO Not Given DAILY [facility] Pantoprazole Sodium 40 mg 11/04/19 10:00 Protonix Iv IVPUSH DAILY [facility] Polyethylene Glycol 17 gm 10/31/19 19:53 11/01/19 10:41 Miralax (For Daily Use) - PO 17 gm DAILY PRN Administration CONSTIPATION Saliva Substitute 1 applic 11/02/19 10:10 11/02/19 11:52 Mouthkote Solution MM 1 applic QID PRN Administration dry mouth Sodium Zirconium Cyclosilicate 5 gm 11/02/19 18:00 11/03/19 09:15 Lokelma PO Not Given DAILY@0800 [facility] ASSESSMENT/PLAN: 89 yo female with h/o diastolic CHF, a-fib (on Eliquis), CKD, breast cancer s/p mastectomy, myelodysplasia, IDDM type 2, hypothyroidism, HLD, CVA, & GERD, recent admission for CHF and other condition who was dc on 10/27 to rehab and came back on 10/28 as she did not like rehab. she was found to have worsening leukocytosis and UTI Sepsis 2/2 bacteremia - blood cx: staphylococcus Latex Coag + - Dr. Bennett following Vanc d/c yesterday Cefazolin started today Day 1 - urine cultures + but all < 20K - hypotensive, 42 ml/hr 1/2 NS - Palliative Care (Dr. Macdonald) daughter would like to continue antibiotics, iv fluids, and low dose morphine - Morphine 0.5 IV Q6H PRN - I spoke with daughter again today and confirmed we can stop blood draws MAURICE on CKD - Nephro consulted (Dr. Sequeira) - hyperkalemia today 6.1 - treated with insulin, calcium gluconate & d5w - will stop repeating BMP due to family wishes CHF - hold diuretics for now - BL pilar wraps for leg edema HTN - Cardiology consulted (Dr. Lala) hold Coreg & Imdur for hypotension (possibly due to sepsis) Skin Ulcers - back and sacrum - continue zinc and non stick dressings on back & allevyn dressing on sacrum - continue heel cushion protector - continue air mattress Rash - Continue nystatin and zinc oxide to groins - H1 blockers for itching Chronic Pain - lidocaine patch - morphine - IV Tylenol Hx of MDS, Chronic Leukocytosis - heme/onc evaluated last admission - nothing to do, patient not candidate for chemo IDDM2 - stop BGMs - hold levemir DVT Prophylaxis thrombocytopenia - holding eliquis Visit type - Emergency Visit Emergency Visit: Yes ED Registration Date: 10/30/19 Care time: The patient presented to the Emergency Department on the above date and was hospitalized for further evaluation of their emergent condition. - New Patient This patient is new to me today: No - Critical Care Critical Care patient: No - Discharge Referral Referred to [facility] Med P.C.: No - Medication Review Med list reviewed for High Risk Meds patients 65 and older: Yes ATTENDING PHYSICIAN STATEMENT I saw and evaluated the patient. I reviewed the resident's note and discussed the case with the resident. I agree with the resident's findings and plan as documented. SUBJECTIVE: OBJECTIVE: ASSESSMENT AND PLAN:
[2019-11-03] MEDS: SODIUM BICARBONATE 8.4% - 50 MEQ in SODIUM CHLORIDE 0.45% 1,000 ML IVPB SCH ×2 (16:22→16:23)
[2019-11-03] MEDS ORDERED: SODIUM BICARBONATE 8.4% 50 MEQ/50 ML VIAL IVPB ONE (16:30)
[2019-11-03] MEDS ORDERED: PT OWN MED DRAWER 7, Y5N ONE (17:52)
[2019-11-03] MEDS: SODIUM CHLORIDE 0.45% 1,000 ML IV SCH (19:11)
[2019-11-03] MEDS: DOCUSATE SODIUM 100 MG CAPSULE (FP) PO SCH (22:12)
[2019-11-03] MEDS: LIDOCAINE PATCH REMOVAL MC SCH (22:12)
[2019-11-04] MEDS: SODIUM CHLORIDE 0.45% 1,000 ML IV SCH ×2 (00:09→23:53)
[2019-11-04] MEDS: MINERAL OIL 30 ML UNIT-DOSE CUP PO SCH ×3 (06:27→23:57)
[2019-11-04] MEDS: LEVOTHYROXINE NA 100 MCG TABLET (FP) PO SCH (06:28)
[2019-11-04] MEDS: INSULIN SLIDING SCALE (NOVOLOG) 1 VIAL SQ SCH ×2 (06:28→12:01)
[2019-11-04] MEDS: SODIUM ZIRCONIUM CYCLOSILICATE (LOKELMA) 5 GM PACKET PO SCH (09:23)
[2019-11-04] MEDS: MULTIVITAMINS (DAILY MVI) TABLET (FP) PO SCH (09:23)
[2019-11-04] MEDS ORDERED: PT OWN MED DRAWER 7, Y5N ONE ×4 (09:25→23:56)
[2019-11-04] MEDS ORDERED: ceFAZolin SODIUM 1 GM VIAL ONE (09:26)
[2019-11-04] MEDS ORDERED: DEXTROSE 5%-WATER - 50 ML IVPB ONE (09:26)
[2019-11-04] MEDS: LIDOCAINE 5% TOPICAL PATCH TP SCH (09:33)
[2019-11-04] MEDS: CEFAZOLIN 1 GM in DEXTROSE 5%-WATER - 50 ML IVPB SCH (09:33)
[2019-11-04] MEDS: MINERAL OIL/PET HY-PHL TOPICAL OINTMENT 454 GM JAR TP SCH ×2 (09:34→23:54)
[2019-11-04] MEDS: NYSTATIN 100,000 UNIT/GM TOPICAL CREAM 15 GM TUBE TP SCH ×2 (09:37→23:54)
[2019-11-04] MEDS: ZINC OXIDE 20% TOPICAL OINTMENT 30 GM TUBE TP SCH (09:37)
[2019-11-04] MEDS: BACITRACIN 15 GM TUBE TOPICAL OINTMENT TP SCH (09:58)
[2019-11-04] MEDS ORDERED: PANTOPRAZOLE SODIUM 40 MG VIAL IVPUSH SCH (10:00)
[2019-11-04] MEDS: MORPHINE SULFATE 2 MG/ML VIAL IVPUSH PRN ×2 (11:05→17:42)
--- NOTE | 2019-11-04 11:07 | PN ---
Progress Note (short form) - Note Progress Note: cc: back pain s: unable to obtain HPI or ROS due to mental status Current Medications Generic Name Dose Route Start Last Admin Trade Name Meena PRN Reason Stop Dose Admin Acetaminophen 1,000 mg 11/03/19 13:30 Ofirmev Injection - IVPB 11/06/19 13:13 Q6H PRN PAIN LEVEL 1-5 Artificial Tears 1 drop 10/31/19 10:00 11/01/19 10:42 Artificial Tears OU 1 drop QID PRN Administration DRY EYES Bacitracin 1 applic 11/01/19 10:00 11/04/19 09:58 Bacitracin - TP 1 applic DAILY AMRIT Administration Carvedilol 25 mg 10/31/19 22:00 11/01/19 09:54 Coreg - PO Not Given BID AMRIT Docusate Sodium 300 mg 10/31/19 22:00 11/03/19 22:12 Colace - PO Not Given HS AMRIT Emollient Ointment 1 applic 11/03/19 10:00 11/04/19 09:34 Aquaphor - TP 1 applic BID AMRIT Administration Hydroxyzine Pamoate 25 mg 10/31/19 19:53 11/01/19 12:14 Vistaril - PO 25 mg Q8H PRN Administration FOR ITCHING Cefazolin Sodium 1 gm/ 50 mls @ 100 mls/hr 11/03/19 10:00 11/04/19 09:33 Dextrose IVPB 100 mls/hr DAILY AMRIT Administration Sodium Chloride 1,000 mls @ 42 mls/hr 11/02/19 18:45 11/04/19 00:09 1/2 Normal Saline IV 42 mls/hr ASDIR AMRIT Administration Insulin Aspart 1 vial 10/31/19 16:30 11/04/19 06:28 Novolog Vial Sliding Scale - SQ Not Given TIDAC [facility] Protocol Isosorbide Mononitrate 60 mg 11/01/19 10:00 11/01/19 09:54 Imdur - PO Not Given DAILY AMRIT Levothyroxine Sodium 100 mcg 11/01/19 07:00 11/04/19 06:28 Synthroid - PO Not Given DAILY@0700 [facility] Lidocaine 1 patch 11/01/19 10:00 11/04/19 09:33 Lidoderm Patch - TP 1 patch DAILY [facility]IT Administration Mineral Oil 10 ml 11/03/19 13:15 11/04/19 06:27 Mineral Oil - PO 10 ml TID AMRIT Administration Miscellaneous 1 each 10/31/19 22:00 11/03/19 22:12 Lidoderm Patch Removal MC 1 each DAILY@2200 [facility] Administration Morphine Sulfate 0.5 mg 11/02/19 13:59 11/03/19 16:30 Morphine Sulfate IVPUSH 0.5 mg Q6H PRN Administration Pain & Dyspnea Multi-Ingredient Ointment 1 applic 11/01/19 10:00 11/04/19 09:37 Zinc Oxide TP 1 applic DAILY [facility]RIT Administration Multivitamins/Minerals/Vitamin C 1 tab 11/01/19 10:00 11/04/19 09:23 Tab-A-Vit - PO Not Given DAILY [facility]IT Nystatin 1 applic 10/31/19 22:00 11/04/19 09:37 Mycostatin Cream - TP 1 applic BID AMRIT Administration Pantoprazole Sodium 40 mg 11/04/19 10:00 11/04/19 09:33 Protonix Iv IVPUSH 40 mg DAILY [facility]IT Administration Polyethylene Glycol 17 gm 10/31/19 19:53 11/01/19 10:41 Miralax (For Daily Use) - PO 17 gm DAILY PRN Administration CONSTIPATION Saliva Substitute 1 applic 11/02/19 10:10 11/02/19 11:52 Mouthkote Solution MM 1 applic QID PRN Administration dry mouth Sodium Zirconium Cyclosilicate 5 gm 11/02/19 18:00 11/04/19 09:23 Lokelma PO Not Given DAILY@0800 [facility] Vital Signs Temp 98.8 F 11/04/19 10:00 Pulse 102 H 11/04/19 10:00 Resp 18 11/04/19 10:00 BP 88/50 L 11/04/19 10:00 Pulse Ox 95 11/04/19 10:00 Intake & Output 11/03/19 11/03/19 11/04/19 11:59 23:59 11:59 Intake Total 314 700 504 Output Total 50 Balance 314 700 454 Weight 203 lb Intake: IV 304 500 504 1/2 Normal Saline 1,000 294 500 504 ml @ 42 mls/hr IV ASDIR AMRIT Rx#:[id number] saline lock 10 IVPB 10 200 Output: Urine 50 [place] 50 Other: Voiding Method Indwelling Catheter Indwelling Catheter Bowel Movement Yes Yes # Bowel Movements 1 1 Weight Measurement Method [facility] no jvd dec bs bases poor eff lethargic 1+ le edema bl, no c/c irreg s1s2 no mrg abd nt nd pos bs no jaundice diaphoresis pos dp pt no carotid bruits Laboratory Last Values WBC 24.2 K/mm3 (4.0-10.0) H 11/03/19 06:55 RBC 2.59 M/mm3 (3.60-5.2) L 11/03/19 06:55 Hgb 7.7 GM/dL (10.7-15.3) L 11/03/19 06:55 Hct 25.2 % (32.4-45.2) L 11/03/19 06:55 MCV 97.4 fl (80-96) H 11/03/19 06:55 MCH 29.6 pg (25.7-33.7) 11/03/19 06:55 MCHC 30.4 g/dl (32.0-36.0) L 11/03/19 06:55 RDW 21.8 % (11.6-15.6) H 11/03/19 06:55 Plt Count 46 K/MM3 (134-434) L D 11/03/19 06:55 MPV 8.7 fl (7.5-11.1) 11/03/19 06:55 Absolute Neuts (auto) 35.6 K/mm3 (1.5-8.0) H 11/01/19 07:15 Total Counted 100 11/01/19 07:15 Neutrophils % 94.7 % (42.8-82.8) H 11/01/19 07:15 Neutrophils % (Manual) 84.0 % (42.8-82.8) H 11/01/19 07:15 Band Neutrophils % 9.0 % 11/01/19 07:15 Lymphocytes % 1.9 % (8-40) L 11/01/19 07:15 Lymphocytes % (Manual) 2.0 % (8-40) L D 11/01/19 07:15 Monocytes % 2.6 % (3.8-10.2) L 11/01/19 07:15 Monocytes % (Manual) 3 % (3.8-10.2) L 11/01/19 07:15 Eosinophils % 0.6 % (0-4.5) 11/01/19 07:15 Eosinophils % (Manual) 0.0 % (0-4.5) D 10/31/19 06:14 Basophils % 0.2 % (0-2.0) 11/01/19 07:15 Basophils % (Manual) 0.0 % (0-2.0) 10/31/19 06:14 Myelocytes % (Man) 1 % (0-2) 11/01/19 07:15 Promyelocytes % (Man) 0 % (0-2) D 10/31/19 06:14 Blast Cells % (Manual) 0 % (0-0) 10/31/19 06:14 Nucleated RBC % 0 % (0-0) 11/01/19 07:15 Metamyelocytes 1 % (0-2) 11/01/19 07:15 Smudge Cells Few 10/30/19 02:14 Hypochromia 0 10/31/19 06:14 Toxic Granulation 1+ 11/01/19 07:15 Platelet Estimate Decreased 11/01/19 07:15 Platelet Comment Large platelets 11/01/19 07:15 Platelet Comment No clumping noted 10/30/19 02:14 Polychromasia 1+ 11/01/19 07:15 Poikilocytosis 1+ 11/01/19 07:15 Anisocytosis 1+ 11/01/19 07:15 Microcytosis 1+ 11/01/19 07:15 Macrocytosis 1+ 10/31/19 06:14 Spherocytes 1+ 11/01/19 07:15 Tear Drop Cells 1+ 11/01/19 07:15 Ovalocytes 1+ 11/01/19 07:15 Stomatocytes 1+ 11/01/19 07:15 [place] Cells 1+ 10/31/19 06:14 Fragmented RBCs Occasional 10/30/19 02:14 PT with INR 34.40 SEC (9.7-13.0) H 10/30/19 02:14 INR 2.88 (0.83-1.09) H 10/30/19 02:14 Sodium 136 mmol/L (136-145) 11/03/19 06:55 Potassium 6.1 mmol/L (3.5-5.1) H* 11/03/19 06:55 Chloride 103 mmol/L (98-107) 11/03/19 06:55 Carbon Dioxide 17 mmol/L (21-32) L 11/03/19 06:55 Anion Gap 17 MMOL/L (8-16) H 11/03/19 06:55 BUN 141.9 mg/dL (7-18) H* 11/03/19 06:55 Creatinine 5.0 mg/dL (0.55-1.3) H 11/03/19 06:55 Est GFR (CKD-EPI)AfAm 8.26 11/03/19 06:55 Est GFR (CKD-EPI)NonAf 7.13 11/03/19 06:55 POC Glucometer 199 UNITS (80-120) 11/04/19 06:06 Random Glucose 268 mg/dL (74-106) H 11/03/19 06:55 Hemoglobin A1c % 7.1 % (4.2-6.3) H 10/31/19 06:14 Lactic Acid 2.8 mmol/L (0.4-2.0) H* 11/01/19 19:45 Calcium 7.6 mg/dL (8.5-10.1) L 11/03/19 06:55 Phosphorus 5.0 mg/dL (2.5-4.9) H 11/02/19 05:30 Magnesium 2.0 mg/dL (1.8-2.4) 11/02/19 05:30 Total Bilirubin 0.9 mg/dL (0.2-1) 10/31/19 06:14 AST 32 U/L (15-37) 10/31/19 06:14 ALT 12 U/L (13-61) L 10/31/19 06:14 Alkaline Phosphatase 450 U/L (45-117) H 10/31/19 06:14 Creatine Kinase 26 U/L (26-192) 10/30/19 02:14 Troponin I 0.03 ng/ml (0.00-0.05) 10/30/19 11:13 B-Natriuretic Peptide 89188.3 pg/ml (5-450) H 10/30/19 02:14 Total Protein 6.1 g/dl (6.4-8.2) L 10/31/19 06:14 Albumin 2.2 g/dl (3.4-5.0) L 10/31/19 06:14 Urine Color Yellow 10/30/19 04:10 Urine Appearance Turbid 10/30/19 04:10 Urine pH 5.0 (5.0-8.0) 10/30/19 04:10 Ur Specific [place] 1.016 (1.010-1.035) 10/30/19 04:10 Urine Protein 3+ (NEGATIVE) H 10/30/19 04:10 Urine Glucose (UA) Trace (NEGATIVE) 10/30/19 04:10 Urine Ketones Negative (NEGATIVE) 10/30/19 04:10 Urine Blood 3+ (NEGATIVE) H 10/30/19 04:10 Urine Nitrite Negative (NEGATIVE) 10/30/19 04:10 Urine Bilirubin Negative (NEGATIVE) 10/30/19 04:10 Urine Urobilinogen 0.2 mg/dL (0.2-1.0) 10/30/19 04:10 Ur Leukocyte Esterase 3+ (NEGATIVE) H 10/30/19 04:10 Urine WBC (Auto) 51797 /uL (0-25.8) 10/30/19 04:10 Urine Casts (Auto) 12 /uL (0-3.1) 10/30/19 04:10 U Epithel Cells (Auto) >36 /uL (0-25.1) 10/30/19 04:10 Urine Bacteria (Auto) 132 /uL (0-1359) 10/30/19 04:10 Random Vancomycin 20.6 ug/ml (5-26) 11/02/19 05:30 COVID-19 (TOYA) Not detected (Not Detected) 10/30/19 02:14 echo 03/2019 nl LV function, mild MR, mild TR, PASP at least 49 mmHg IMP/REC: chronic diastolic heart failure - recent echo nl LV function - no signs acs - holding aldactone, hydralazine due to rash during prior admission - recent admission for CHF exac, was on IV lasix. it was rec'd that pt have HD but she declined so diuresed with lasix 80 mg IV TID - seen by palliative care prior admit, wished to continue fighting, refused hospice care. now DNR/DNI with ongoing discussions with family regarding goals of care - on nitrates for cardiorenal syndrome - volume status stable here - now with sepsis, hypotension, holding torsemide HTN: - bp low, likely from sepsis, holding bp meds crow on CKD: - Baseline creat prior is 2-2.5, elevated now, likely cardiorenal, sepsis - renal following PAF: -cont coreg for rate control if bp tolerates -AC held due to worsening anemia
--- NOTE | 2019-11-04 14:03 | PN ---
Physical Exam: SUBJECTIVE: Patient seen and examined bedside. Breathing with her mouth open. Not arousable to voice or moderate stimuli, did not try sternal rub. Patient appears to be in no acute distress. OBJECTIVE: Vital Signs Period Temp Pulse Resp BP Sys/Hernandez Pulse Ox Last 24 Hr 98.6 F-99.6 F 96-116 16-20 73-90/35-53 95-95 GENERAL: Patient breathing heavily, not alert. HEAD: Normal with no signs of trauma. EYES: unable to assess ENT: dry mucous membranes LUNGS: Breath sounds decrease BL, BL crackles HEART: Irregularly irregular ABDOMEN: Soft, nontender, nondistended EXTREMITIES: BL +3 pitting edema Laboratory Results - last 24 hr 11/03/19 11/03/19 11/04/19 16:32 22:10 06:06 POC Glucometer 127 183 199 Active Medications Generic Name Dose Route Start Last Admin Trade Name Freq PRN Reason Stop Dose Admin Acetaminophen 1,000 mg 11/03/19 13:30 Ofirmev Injection - IVPB 11/06/19 13:13 Q6H PRN PAIN LEVEL 1-5 Artificial Tears 1 drop 10/31/19 10:00 11/01/19 10:42 Artificial Tears OU 1 drop QID PRN Administration DRY EYES Bacitracin 1 applic 11/01/19 10:00 11/04/19 09:58 Bacitracin - TP 1 applic DAILY [facility] Administration Carvedilol 25 mg 10/31/19 22:00 11/01/19 09:54 Coreg - PO Not Given BID [facility] Docusate Sodium 300 mg 10/31/19 22:00 11/03/19 22:12 Colace - PO Not Given HS [facility] Emollient Ointment 1 applic 11/03/19 10:00 11/04/19 09:34 Aquaphor - TP 1 applic BID [facility] Administration Hydroxyzine Pamoate 25 mg 10/31/19 19:53 11/01/19 12:14 Vistaril - PO 25 mg Q8H PRN Administration FOR ITCHING Cefazolin Sodium 1 gm/ 50 mls @ 100 mls/hr 11/03/19 10:00 11/04/19 09:33 Dextrose IVPB 100 mls/hr DAILY [facility] Administration Sodium Chloride 1,000 mls @ 42 mls/hr 11/02/19 18:45 11/04/19 00:09 1/2 Normal Saline IV 42 mls/hr ASDIR [facility] Administration Insulin Aspart 1 vial 10/31/19 16:30 11/04/19 12:01 Novolog Vial Sliding Scale - SQ Not Given TIDAC [facility] Protocol Isosorbide Mononitrate 60 mg 11/01/19 10:00 11/01/19 09:54 Imdur - PO Not Given DAILY [facility] Levothyroxine Sodium 100 mcg 11/01/19 07:00 11/04/19 06:28 Synthroid - PO Not Given DAILY@0700 [facility] Lidocaine 1 patch 11/01/19 10:00 11/04/19 09:33 Lidoderm Patch - TP 1 patch DAILY [facility] Administration Mineral Oil 10 ml 11/03/19 13:15 11/04/19 06:27 Mineral Oil - PO 10 ml TID [facility] Administration Miscellaneous 1 each 10/31/19 22:00 11/03/19 22:12 Lidoderm Patch Removal MC 1 each DAILY@2200 [facility] Administration Morphine Sulfate 0.5 mg 11/02/19 13:59 11/04/19 11:05 Morphine Sulfate IVPUSH 0.5 mg Q6H PRN Administration Pain & Dyspnea Multi-Ingredient Ointment 1 applic 11/01/19 10:00 11/04/19 09:37 Zinc Oxide TP 1 applic DAILY [facility] Administration Multivitamins/Minerals/Vitamin C 1 tab 11/01/19 10:00 11/04/19 09:23 Tab-A-Vit - PO Not Given DAILY [facility] Nystatin 1 applic 10/31/19 22:00 11/04/19 09:37 Mycostatin Cream - TP 1 applic BID [facility] Administration Pantoprazole Sodium 40 mg 11/04/19 10:00 11/04/19 09:33 Protonix Iv IVPUSH 40 mg DAILY [facility] Administration Polyethylene Glycol 17 gm 10/31/19 19:53 11/01/19 10:41 Miralax (For Daily Use) - PO 17 gm DAILY PRN Administration CONSTIPATION Saliva Substitute 1 applic 11/02/19 10:10 11/02/19 11:52 Mouthkote Solution MM 1 applic QID PRN Administration dry mouth Sodium Zirconium Cyclosilicate 5 gm 11/02/19 18:00 11/04/19 09:23 Lokelma PO Not Given DAILY@0800 [facility] ASSESSMENT/PLAN: 89 yo female with h/o diastolic CHF, a-fib (on Eliquis), CKD, breast cancer s/p mastectomy, myelodysplasia, IDDM type 2, hypothyroidism, HLD, CVA, & GERD, recent admission for CHF and other condition who was dc on 10/27 to rehab and came back on 10/28 as she did not like rehab. she was found to have worsening leukocytosis and UTI Sepsis 2/2 bacteremia - blood cx: staphylococcus Latex Coag + - Dr. Bennett following Cefazolin started today Day 2 - hypotensive, 42 ml/hr 1/2 NS - Palliative Care (Dr. Macdonald) daughter would like to continue antibiotics, iv fluids, and low dose morphine - Morphine 0.5 IV Q6H PRN - NO BLOOD DRAWS MAURICE on CKD - Nephro consulted (Dr. Sequeira) - No HD CHF - hold diuretics for now - BL pilar wraps for leg edema HTN - Cardiology consulted (Dr. Lala) hold Coreg & Imdur due to hypotension Skin Ulcers - back and sacrum - continue zinc and non stick dressings on back & allevyn dressing on sacrum - continue heel cushion protector - continue air mattress Rash - Continue nystatin and zinc oxide to groins - H1 blockers for itching Chronic Pain - lidocaine patch - morphine - IV Tylenol Hx of MDS, Chronic Leukocytosis - heme/onc evaluated last admission - nothing to do, patient not candidate for chemo IDDM2 - stop BGMs - hold levemir DVT Prophylaxis thrombocytopenia - holding eliquis Visit type - Emergency Visit Emergency Visit: Yes ED Registration Date: 10/30/19 Care time: The patient presented to the Emergency Department on the above date and was hospitalized for further evaluation of their emergent condition. - New Patient This patient is new to me today: No - Critical Care Critical Care patient: No - Discharge Referral Referred to [facility] Med [facility].C[facility] No - Medication Review Med list reviewed for High Risk Meds patients 65 and older: Yes ATTENDING PHYSICIAN STATEMENT I saw and evaluated the patient. I reviewed the resident's note and discussed the case with the resident. I agree with the resident's findings and plan as documented. SUBJECTIVE: OBJECTIVE: ASSESSMENT AND PLAN:
--- NOTE | 2019-11-04 15:16 | PN ---
Progress Note, Physician History of Present Illness: Pt seen and examined at bedside. She remains lethargic. - Current Medication List Current Medications: Active Medications Acetaminophen (Ofirmev Injection -) 1,000 mg IVPB Q6H PRN PRN Reason: PAIN LEVEL 1-5 Stop: 11/06/19 13:13 Artificial Tears (Artificial Tears) 1 drop OU QID PRN PRN Reason: DRY EYES Last Admin: 11/01/19 10:42 Dose: 1 drop Documented by: Bacitracin (Bacitracin -) 1 applic TP DAILY [facility] Last Admin: 11/04/19 09:58 Dose: 1 applic Documented by: Carvedilol (Coreg -) 25 mg PO BID [facility] Last Admin: 11/01/19 09:54 Dose: Not Given Documented by: Docusate Sodium (Colace -) 300 mg PO HS [facility] Last Admin: 11/03/19 22:12 Dose: Not Given Documented by: Emollient Ointment (Aquaphor -) 1 applic TP BID [facility] Last Admin: 11/04/19 09:34 Dose: 1 applic Documented by: Hydroxyzine Pamoate (Vistaril -) 25 mg PO Q8H PRN PRN Reason: FOR ITCHING Last Admin: 11/01/19 12:14 Dose: 25 mg Documented by: Cefazolin Sodium 1 gm/ (Dextrose) 50 mls @ 100 mls/hr IVPB DAILY [facility] Last Admin: 11/04/19 09:33 Dose: 100 mls/hr Documented by: Sodium Chloride (1/2 Normal Saline) 1,000 mls @ 42 mls/hr IV ASDIR [facility] Last Admin: 11/04/19 00:09 Dose: 42 mls/hr Documented by: Insulin Aspart (Novolog Vial Sliding Scale -) 1 vial SQ TIDAC [facility]; Protocol Last Admin: 11/04/19 12:01 Dose: Not Given Documented by: Isosorbide Mononitrate (Imdur -) 60 mg PO DAILY [facility] Last Admin: 11/01/19 09:54 Dose: Not Given Documented by: Levothyroxine Sodium (Synthroid -) 100 mcg PO DAILY@0700 [facility] Last Admin: 11/04/19 06:28 Dose: Not Given Documented by: Lidocaine (Lidoderm Patch -) 1 patch TP DAILY [facility] Last Admin: 11/04/19 09:33 Dose: 1 patch Documented by: Mineral Oil (Mineral Oil -) 10 ml PO TID [facility] Last Admin: 11/04/19 14:14 Dose: 10 ml Documented by: Miscellaneous (Lidoderm Patch Removal) 1 each MC DAILY@2200 [facility] Last Admin: 11/03/19 22:12 Dose: 1 each Documented by: Morphine Sulfate (Morphine Sulfate) 0.5 mg IVPUSH Q6H PRN PRN Reason: Pain & Dyspnea Last Admin: 11/04/19 11:05 Dose: 0.5 mg Documented by: Multi-Ingredient Ointment (Zinc Oxide) 1 applic TP DAILY [facility] Last Admin: 11/04/19 09:37 Dose: 1 applic Documented by: Multivitamins/Minerals/Vitamin C (Tab-A-Vit -) 1 tab PO DAILY [facility] Last Admin: 11/04/19 09:23 Dose: Not Given Documented by: Nystatin (Mycostatin Cream -) 1 applic TP BID [facility] Last Admin: 11/04/19 09:37 Dose: 1 applic Documented by: Pantoprazole Sodium (Protonix Iv) 40 mg IVPUSH DAILY [facility] Last Admin: 11/04/19 09:33 Dose: 40 mg Documented by: Polyethylene Glycol (Miralax (For Daily Use) -) 17 gm PO DAILY PRN PRN Reason: CONSTIPATION Last Admin: 11/01/19 10:41 Dose: 17 gm Documented by: Saliva Substitute (Mouthkote Solution) 1 applic MM QID PRN PRN Reason: dry mouth Last Admin: 11/02/19 11:52 Dose: 1 applic Documented by: Sodium Zirconium Cyclosilicate (Lokelma) 5 gm PO DAILY@0800 [facility] Last Admin: 11/04/19 09:23 Dose: Not Given Documented by: - Objective Vital Signs: Vital Signs Temperature 98.8 F 11/04/19 10:00 Pulse Rate 102 H 11/04/19 10:00 Respiratory Rate 18 11/04/19 10:00 Blood Pressure 88/50 L 11/04/19 10:00 O2 Sat by Pulse Oximetry (%) 95 11/04/19 10:00 Constitutional: Yes: Calm Eyes: Yes: Conjunctiva Clear HENT: Yes: Atraumatic Neck: Yes: Supple Cardiovascular: Yes: S1, S2 Respiratory: Yes: On Nasal O2 Gastrointestinal: Yes: Normal Bowel Sounds, Soft Genitourinary: Yes: Incontinence Musculoskeletal: Yes: Muscle Weakness Edema: Yes Edema: LLE: 1+, RLE: 1+ Neurological: Yes: Lethargy Labs: CBC, BMP 11/03/19 06:55 11/03/19 06:55 INR, PTT INR 2.88 (0.83-1.09) H 10/30/19 02:14 Problem List - Problems (1) Acute on chronic diastolic (congestive) heart failure Code(s): I50.33 - ACUTE ON CHRONIC DIASTOLIC (CONGESTIVE) HEART FAILURE (2) CHF (congestive heart failure) Code(s): I50.9 - HEART FAILURE, UNSPECIFIED (3) CKD (chronic kidney disease) stage 5, GFR less than 15 ml/min Code(s): N18.5 - CHRONIC KIDNEY DISEASE, STAGE 5 Assessment/Plan Current Medications Generic Name Dose Route Start Last Admin Trade Name Freq PRN Reason Stop Dose Admin Acetaminophen 1,000 mg 11/03/19 13:30 Ofirmev Injection - IVPB 11/06/19 13:13 Q6H PRN PAIN LEVEL 1-5 Artificial Tears 1 drop 10/31/19 10:00 11/01/19 10:42 Artificial Tears OU 1 drop QID PRN Administration DRY EYES Bacitracin 1 applic 11/01/19 10:00 11/04/19 09:58 Bacitracin - TP 1 applic DAILY [facility] Administration Carvedilol 25 mg 10/31/19 22:00 11/01/19 09:54 Coreg - PO Not Given BID [facility] Docusate Sodium 300 mg 10/31/19 22:00 11/03/19 22:12 Colace - PO Not Given HS [facility] Emollient Ointment 1 applic 11/03/19 10:00 11/04/19 09:34 Aquaphor - TP 1 applic BID [facility] Administration Hydroxyzine Pamoate 25 mg 10/31/19 19:53 11/01/19 12:14 Vistaril - PO 25 mg Q8H PRN Administration FOR ITCHING Cefazolin Sodium 1 gm/ 50 mls @ 100 mls/hr 11/03/19 10:00 11/04/19 09:33 Dextrose IVPB 100 mls/hr DAILY [facility] Administration Sodium Chloride 1,000 mls @ 42 mls/hr 11/02/19 18:45 07/30/20 00:09 1/2 Normal Saline IV 42 mls/hr ASDIR [facility] Administration Insulin Aspart 1 vial 10/31/19 16:30 11/04/19 12:01 Novolog Vial Sliding Scale - SQ Not Given TIDAC [facility] Protocol Isosorbide Mononitrate 60 mg 11/01/19 10:00 11/01/19 09:54 Imdur - PO Not Given DAILY [facility] Levothyroxine Sodium 100 mcg 11/01/19 07:00 11/04/19 06:28 Synthroid - PO Not Given DAILY@0700 [facility] Lidocaine 1 patch 11/01/19 10:00 11/04/19 09:33 Lidoderm Patch - TP 1 patch DAILY [facility] Administration Mineral Oil 10 ml 11/03/19 13:15 11/04/19 14:14 Mineral Oil - PO 10 ml TID [facility] Administration Miscellaneous 1 each 10/31/19 22:00 11/03/19 22:12 Lidoderm Patch Removal MC 1 each DAILY@2200 [facility] Administration Morphine Sulfate 0.5 mg 11/02/19 13:59 11/04/19 11:05 Morphine Sulfate IVPUSH 0.5 mg Q6H PRN Administration Pain & Dyspnea Multi-Ingredient Ointment 1 applic 11/01/19 10:00 11/04/19 09:37 Zinc Oxide TP 1 applic DAILY [facility] Administration Multivitamins/Minerals/Vitamin C 1 tab 11/01/19 10:00 11/04/19 09:23 Tab-A-Vit - PO Not Given DAILY [facility] Nystatin 1 applic 10/31/19 22:00 11/04/19 09:37 Mycostatin Cream - TP 1 applic BID [facility] Administration Pantoprazole Sodium 40 mg 11/04/19 10:00 11/04/19 09:33 Protonix Iv IVPUSH 40 mg DAILY [facility] Administration Polyethylene Glycol 17 gm 10/31/19 19:53 11/01/19 10:41 Miralax (For Daily Use) - PO 17 gm DAILY PRN Administration CONSTIPATION Saliva Substitute 1 applic 11/02/19 10:10 11/02/19 11:52 Mouthkote Solution MM 1 applic QID PRN Administration dry mouth Sodium Zirconium Cyclosilicate 5 gm 11/02/19 18:00 11/04/19 09:23 Lokelma PO Not Given DAILY@0800 [facility] Impression 1. proteinuria 2. hypothyroid 3. HTN 4. DM 5. fluid overload 6. breast cancer 7. anemia 8. CKD 9. CHF 10. hyponatremia 11. hypokalemia 12. MAURICE 13. bacteremia 14. hyperkalemia Plan - pt remain lethargic - no new labs today - pt doing poorly - cont current management - prognosis poor
--- NOTE | 2019-11-04 17:59 | PN ---
Teaching Attending Note Name of Resident: Kylah Denton ATTENDING PHYSICIAN STATEMENT I saw and evaluated the patient. I reviewed the resident's note and discussed the case with the resident. I agree with the resident's findings and plan as documented. SUBJECTIVE: Patient continues to be unresponsive OBJECTIVE: Vital Signs Temperature 97.4 F L 11/04/19 17:15 Pulse Rate 96 H 11/04/19 17:15 Respiratory Rate 16 11/04/19 17:15 Blood Pressure 78/45 L 11/04/19 17:15 O2 Sat by Pulse Oximetry (%) 95 11/04/19 10:00 PE:per resident's note CBCD WBC 24.2 K/mm3 (4.0-10.0) H 11/03/19 06:55 RBC 2.59 M/mm3 (3.60-5.2) L 11/03/19 06:55 Hgb 7.7 GM/dL (10.7-15.3) L 11/03/19 06:55 Hct 25.2 % (32.4-45.2) L 11/03/19 06:55 MCV 97.4 fl (80-96) H 11/03/19 06:55 MCHC 30.4 g/dl (32.0-36.0) L 11/03/19 06:55 RDW 21.8 % (11.6-15.6) H 11/03/19 06:55 Plt Count 46 K/MM3 (134-434) L D 11/03/19 06:55 MPV 8.7 fl (7.5-11.1) 11/03/19 06:55 CMP Sodium 136 mmol/L (136-145) 11/03/19 06:55 Potassium 6.1 mmol/L (3.5-5.1) H* 11/03/19 06:55 Chloride 103 mmol/L (98-107) 11/03/19 06:55 Carbon Dioxide 17 mmol/L (21-32) L 11/03/19 06:55 Anion Gap 17 MMOL/L (8-16) H 11/03/19 06:55 BUN 141.9 mg/dL (7-18) H* 11/03/19 06:55 Creatinine 5.0 mg/dL (0.55-1.3) H 11/03/19 06:55 Random Glucose 268 mg/dL (74-106) H 11/03/19 06:55 Calcium 7.6 mg/dL (8.5-10.1) L 11/03/19 06:55 Total Bilirubin 0.9 mg/dL (0.2-1) 10/31/19 06:14 AST 32 U/L (15-37) 10/31/19 06:14 ALT 12 U/L (13-61) L 10/31/19 06:14 Alkaline Phosphatase 450 U/L (45-117) H 10/31/19 06:14 Total Protein 6.1 g/dl (6.4-8.2) L 10/31/19 06:14 Albumin 2.2 g/dl (3.4-5.0) L 10/31/19 06:14 CARDIAC ENZYMES Creatine Kinase 26 U/L (26-192) 10/30/19 02:14 Troponin I 0.03 ng/ml (0.00-0.05) 10/30/19 11:13 Current Medications Generic Name Dose Route Start Last Admin Trade Name Freq PRN Reason Stop Dose Admin Acetaminophen 1,000 mg 11/03/19 13:30 Ofirmev Injection - IVPB 11/06/19 13:13 Q6H PRN PAIN LEVEL 1-5 Artificial Tears 1 drop 10/31/19 10:00 11/01/19 10:42 Artificial Tears OU 1 drop QID PRN Administration DRY EYES Bacitracin 1 applic 11/01/19 10:00 11/04/19 09:58 Bacitracin - TP 1 applic DAILY [facility] Administration Carvedilol 25 mg 10/31/19 22:00 11/01/19 09:54 Coreg - PO Not Given BID [facility] Docusate Sodium 300 mg 10/31/19 22:00 11/03/19 22:12 Colace - PO Not Given HS [facility] Emollient Ointment 1 applic 11/03/19 10:00 11/04/19 09:34 Aquaphor - TP 1 applic BID [facility] Administration Hydroxyzine Pamoate 25 mg 10/31/19 19:53 11/01/19 12:14 Vistaril - PO 25 mg Q8H PRN Administration FOR ITCHING Cefazolin Sodium 1 gm/ 50 mls @ 100 mls/hr 11/03/19 10:00 11/04/19 09:33 Dextrose IVPB 100 mls/hr DAILY [facility] Administration Sodium Chloride 1,000 mls @ 42 mls/hr 11/02/19 18:45 11/04/19 00:09 1/2 Normal Saline IV 42 mls/hr ASDIR [facility] Administration Isosorbide Mononitrate 60 mg 11/01/19 10:00 11/01/19 09:54 Imdur - PO Not Given DAILY [facility] Levothyroxine Sodium 100 mcg 11/01/19 07:00 11/04/19 06:28 Synthroid - PO Not Given DAILY@0700 [facility] Lidocaine 1 patch 11/01/19 10:00 11/04/19 09:33 Lidoderm Patch - TP 1 patch DAILY [facility] Administration Mineral Oil 10 ml 11/03/19 13:15 11/04/19 14:14 Mineral Oil - PO 10 ml TID [facility] Administration Miscellaneous 1 each 10/31/19 22:00 11/03/19 22:12 Lidoderm Patch Removal MC 1 each DAILY@2200 [facility] Administration Morphine Sulfate 0.5 mg 11/02/19 13:59 11/04/19 17:42 Morphine Sulfate IVPUSH 0.5 mg Q6H PRN Administration Pain & Dyspnea Multi-Ingredient Ointment 1 applic 11/01/19 10:00 11/04/19 09:37 Zinc Oxide TP 1 applic DAILY [facility] Administration Multivitamins/Minerals/Vitamin C 1 tab 11/01/19 10:00 11/04/19 09:23 Tab-A-Vit - PO Not Given DAILY [facility] Nystatin 1 applic 10/31/19 22:00 11/04/19 09:37 Mycostatin Cream - TP 1 applic BID [facility] Administration Pantoprazole Sodium 40 mg 11/04/19 10:00 11/04/19 09:33 Protonix Iv IVPUSH 40 mg DAILY [facility] Administration Polyethylene Glycol 17 gm 10/31/19 19:53 11/01/19 10:41 Miralax (For Daily Use) - PO 17 gm DAILY PRN Administration CONSTIPATION Saliva Substitute 1 applic 11/02/19 10:10 11/02/19 11:52 Mouthkote Solution MM 1 applic QID PRN Administration dry mouth Sodium Zirconium Cyclosilicate 5 gm 11/02/19 18:00 11/04/19 09:23 Lokelma PO Not Given DAILY@0800 [facility] Home Medications Medication Instructions Recorded Carvedilol [Coreg -] 25 mg PO BID 06/23/18 Polyethylene Glycol 3350 [Miralax 17 gm PO DAILY PRN bottle 04/27/19 119 gm Btl -] Apixaban [Eliquis] 2.5 mg PO BID 08/12/19 Isosorbide Mononitrate [Imdur -] 60 mg PO DAILY 08/12/19 Insulin Lispro [Humalog] 100 unit SQ PRN 09/24/19 Pantoprazole Sodium [Protonix] 40 mg PO DAILY 09/24/19 Multivitamin [One-Daily 1 each PO DAILY 09/25/19 Multi-Vitamin] Acetaminophen [Tylenol .Regular 650 mg PO Q6H PRN tablet 10/27/19 Strength -] Lactobacillus Acidophilus [Bacid -] 1 tab PO DAILY tab 10/27/19 Lidocaine Patch Removal [Lidoderm 1 each MC DAILY@2200 each 10/27/19 Patch Removal] Nystatin Cream [Mycostatin Cream -] 1 applic TP BID applic 10/27/19 Polyvinyl Alcohol [Artificial 1 drop OU BID PRN drops 10/27/19 Tears] Torsemide 100 mg PO BID 30 Days #60 tablet 10/27/19 Triamcinolone 0.1% Lotion 1 applic TP BID lotion 10/27/19 [Aristocort 0.1% Lotion -] Zinc Oxide 1 applic TP DAILY tube 10/27/19 hydrOXYzine PAMOATE [Vistaril -] 25 mg PO Q8H PRN capsule 10/27/19 Insulin Glargine,Hum.rec.anlog 20 unit SQ DAILY 30 Days vial 10/28/19 [Lantus] Lidocaine 5% Patch [Lidoderm -] 1 patch TP DAILY #30 patch 10/28/19 Microbiology 11/01/19 07:15 Blood - Peripheral Venous Blood Culture - Preliminary Staphylococcus Latex Coag Pos 11/01/19 07:12 Blood - Peripheral Venous Blood Culture - Preliminary Staphylococcus Latex Coag Pos 10/30/19 04:10 Urine - Urine - Catheterized Urine Culture - Final Klebsiella Pneumoniae - Esbl Citrobacter Sedlakii Vr Ec Faecalis Enterococcus Raffinosus 10/30/19 05:04 Blood - Peripheral Venous Blood Culture - Final Staphylococcus Latex Coag Pos 10/30/19 05:04 Blood - Peripheral Venous Blood Culture - Final Staphylococcus Aureus ASSESSMENT AND PLAN: This is an 89yof with PMhx of diastolic CHF, a-fib (on Eliquis), CKD, breast cancer s/p mastectomy, myelodysplasia, T2DM, hypothyroidism, HLD, CVA, and GERD , recent admission for CHF and was dc'd on 10/27 to rehab and came back on 10/28 as she did not like rehab. she was found to have worsening leukocytosis and UTI. #Thrombocytopenia due to eliquis, dc eliquis, no further labs to be drawn by the family # Sepsis due to cx above: dw/ ID, dc meropenem vanco. ID on the case , on IV cefazolin which is ok by the daughter to continue IV Abx # staph bacteremia on Cefazolin IV as per ID # chronic diastolic heart failure :all the po meds not given , due the patient is unresponsive and the patient is hypotensive ; coreg 25 BID,imdur # Acute renal disease over CKD : hold diuretics for now as per nephro # Hx of MDS, with chronic leukocytosis and anemia #Skin excoriation and decub ulcers on sacral/gluteal area: allevyn dressing on sacrum ,air mattress # Mild hyponatremia : ON IVf # Hx of A-fib : coreg not given due to having hypotension , stopped eliquis since has thrombocytopenia # Maculopapular rash # Hx T2DM no finger SS as per HCP # Hx Liver mass ,retroperitoneal LAP, b/l adrenal nodules on imaging form last admission DVT Px: discontinued eliquis due to thrombocytopenia DNR/DNI , palliative care on board no further blood work, only to be given IVF /antibiotic and pain medication and dressing
[2019-11-04] MEDS: DOCUSATE SODIUM 100 MG CAPSULE (FP) PO SCH (23:53)
[2019-11-04] MEDS: LYTES/YERBA SANTA 60 ML SPRAY MM PRN (23:53)
[2019-11-05] MEDS: LIDOCAINE PATCH REMOVAL MC SCH (00:01)
[2019-11-05] MEDS: MORPHINE SULFATE 2 MG/ML VIAL IVPUSH PRN (02:24)
[2019-11-05 04:34] VITALS: BP 82/32; PULSE 106; TEMP 98.1
--- NOTE | 2019-11-05 06:19 | PN ---
Progress Note (short form) - Note Progress Note: NOTE: Asystole confirmed in 2 leads. There was no response to verbal or tactile stimuli. Pupils were mid-dilated and fixed. No breath sounds were appreciated over either lung field. No carotid pulse was palpable. No heart sounds and auscultated over entire precordium. Patient pronounced on 11/04 at 5:10 AM. Next of kin notified. Emotional support provided to family. Primary team notified. Attending physician notified. ScottY to be called by nursing staff.
--- NOTE | 2019-11-05 07:02 | DS ---
Physical Exam: SUBJECTIVE: Patient pronounced @ 5:[address] Broderick (see his note) OBJECTIVE: See note by Dr. Broderick HOSPITAL COURSE: Patient was readmitted to the hospital after being recently discharged from [facility] on 10/27. She did not believe she was receiving proper care at her SNF and was reporting being in a lot of pain. She was admitted for acute on chronic CHF, Afib with RVR, complicated UTI, intractable Pain, & CKD. Patient was started on IV antibiotics for possible UTI. Her blood cultures came back + for MSSA bacteremia and she was started on IV Cefazoline. However, patient's condition and status was declining daily. Patient was becoming more unresponsive and lethargic, and her BUN/Cr continued to rise and diuretics were not longer an option for her CHF. The patient and her family did not want hemodialysis. She became hypotensive, most likely secondary to sepsis. We were replenishing her with fluids. The patient became minimally responsive. After discussion with primary team and palliative care, the health care proxy (patient's daughter) d ecided to make the patient DNR/DNI as well as decided on no ICU level care (pressers or central line placement). The family also decided to withhold blood draws for patient comfort. The team continued fluids, antibiotics & pain control. On early Friday morning (11/05/19), the patient was found bedside by the nurse not breathing and no palpable pulse. The medical team was called and pronounced the patient at 5:10 AM. The family was notified. Date of Admission:10/30/19 Date of Discharge: 11/05/19 Minutes to complete discharge: 39 Discharge Summary Problems reviewed: Yes Reason For Visit: URINARY TRACT INFECTION, CONGESTIVE HEART FAILURE Current Active Problems Acute on chronic diastolic (congestive) heart failure (Acute) CHF (congestive heart failure) (Acute) CKD (chronic kidney disease) stage 5, GFR less than 15 ml/min (Acute) Intractable pain (Acute) Leukocytosis (Acute) MDS (myelodysplastic syndrome) (Acute) Skin rash (Acute) UTI (urinary tract infection) (Acute) Condition: Guarded - Instructions Disposition: - Home Medications Comprehensive Discharge Medication List: Ambulatory Orders Carvedilol [Coreg -] 25 mg PO BID 06/23/18 Polyethylene Glycol 3350 [Miralax 119 gm Btl -] 17 gm PO DAILY PRN bottle 04/27/19 Apixaban [Eliquis] 2.5 mg PO BID 08/12/19 Isosorbide Mononitrate [Imdur -] 60 mg PO DAILY 08/12/19 Insulin Lispro [Humalog] 100 unit SQ PRN 09/24/19 Pantoprazole Sodium [Protonix] 40 mg PO DAILY 09/24/19 Multivitamin [One-Daily Multi-Vitamin] 1 each PO DAILY 09/25/19 Acetaminophen [Tylenol .Regular Strength -] 650 mg PO Q6H PRN tablet 10/27/19 Lactobacillus Acidophilus [Bacid -] 1 tab PO DAILY tab 10/27/19 Lidocaine Patch Removal [Lidoderm Patch Removal] 1 each MC DAILY@2200 each 10/27/19 Nystatin Cream [Mycostatin Cream -] 1 applic TP BID applic 10/27/19 Polyvinyl Alcohol [Artificial Tears] 1 drop OU BID PRN drops 10/27/19 Torsemide 100 mg PO BID 30 Days #60 tablet 10/27/19 Triamcinolone 0.1% Lotion [Aristocort 0.1% Lotion -] 1 applic TP BID lotion 10/27/19 Zinc Oxide 1 applic TP DAILY tube 10/27/19 hydrOXYzine PAMOATE [Vistaril -] 25 mg PO Q8H PRN capsule 10/27/19 Insulin Glargine,Hum.rec.anlog [Lantus] 20 unit SQ DAILY 30 Days vial 10/28/19 Lidocaine 5% Patch [Lidoderm -] 1 patch TP DAILY #30 patch 10/28/19 This patient is new to me today: No Emergency Visit: Yes ED Registration Date: 10/30/19 Care time: The patient presented to the Emergency Department on the above date and was hospitalized for further evaluation of their emergent condition. Critical Care patient: No - Discharge Referral Referred to [facility] Med [facility] No ATTENDING PHYSICIAN STATEMENT I saw and evaluated the patient. I reviewed the resident's note and discussed the case with the resident. I agree with the resident's findings and plan as documented. SUBJECTIVE: OBJECTIVE: ASSESSMENT AND PLAN:
== END 2019-11-05 05:00 | disposition expired | DRG 871 ==
LOC: JER 23:29 → JERBED 10-30 04:35 → J4W 10-30 09:34 → J8W 10-31 17:53
PROVIDERS: ADMIT Internal Medicine; ATTEND Internal Medicine
DX: A41.2 Sepsis due to unspecified staphylococcus (principal); I50.33 Acute on chronic diastolic (congestive) heart failure; R65.21 Severe sepsis with septic shock; E87.1 Hypo-osmolality and hyponatremia; I69.351 Hemiplegia and hemiparesis following cerebral infarction affecting right dominant side; G61.0 Guillain-Barre syndrome; N17.9 Acute kidney failure, unspecified; I13.0 Hypertensive heart and chronic kidney disease with heart failure and stage 1 through stage 4 chronic kidney disease, or unspecified chronic kidney disease; N39.0 Urinary tract infection, site not specified; E03.9 Hypothyroidism, unspecified; D46.9 Myelodysplastic syndrome, unspecified; Z85.3 Personal history of malignant neoplasm of breast; I48.91 Unspecified atrial fibrillation; E11.42 Type 2 diabetes mellitus with diabetic polyneuropathy; K21.9 Gastro-esophageal reflux disease without esophagitis; K59.09 Other constipation; M54.5 Low back pain; F29 Unspecified psychosis not due to a substance or known physiological condition; R21 Rash and other nonspecific skin eruption; R52 Pain, unspecified; I48.0 Paroxysmal atrial fibrillation; E11.22 Type 2 diabetes mellitus with diabetic chronic kidney disease; N18.9 Chronic kidney disease, unspecified; E87.6 Hypokalemia; D63.1 Anemia in chronic kidney disease; R16.0 Hepatomegaly, not elsewhere classified; E87.5 Hyperkalemia; E87.70 Fluid overload, unspecified; D69.6 Thrombocytopenia, unspecified; I95.9 Hypotension, unspecified; Z66 Do not resuscitate
CPT/HCPCS: 36415; 71045-TC-FY; 73030-TC-LT-FY; 80048; 80053; 81003; 82550; 82962; 83036; 83605; 83735; 83880; 84100; 84484; 85025; 85027; 85610; 87040; 87086; 87186; 93005; 93010; 93306-TC; 99285-25; E0186; G0480; U0003